=== PATIENT | male | born 1945 ===

== ENCOUNTER 2022-10-27 11:23 | Emergency (ER) | payer MEDICARE, MEDICAID, SELFPAY ==
--- NOTE | ~2022-10-27 | XR_ITS ---
EXAMINATION: XR ELBOW, LEFT CLINICAL INFORMATION: Left elbow lump. COMPARISON: None TECHNIQUE: AP, lateral, and oblique views of the left elbow. FINDINGS: The bones and soft tissues appear unremarkable. No fracture or joint effusion appreciated. Alignment is anatomic. Joint spaces appear maintained. XR/XR elbow LT 2V IMPRESSION: Unremarkable plain film examination of the left elbow.
[2022-10-27 11:48] VITALS: BP 147/70; PULSE 84; RESP 18; TEMP 36.9; O2SAT 97; BMI 24.3
--- NOTE | 2022-10-27 11:50 | ED_ITS ---
HPI - General Adult General Chief complaint: Extremity Injury, Upper <CELINA Degroot - Last Filed: 10/27/22 19:12> Stated complaint: Lump on L elbow <CELINA Degroot - Last Filed: 10/27/22 19:12> Time Seen by Provider: 10/27/22 12:35 <CELINA Degroot - Last Filed: 10/27/22 19:12> Source: patient <CELINA Ruby Last Filed: 10/27/22 14:16> Mode of arrival: ambulatory <CELINA Ruby Last Filed: 10/27/22 14:16> Limitations: no limitations <CELINA Ruby Last Filed: 10/27/22 14:16> History of Present Illness HPI narrative: Patient is a 77 year old assigned male at with no reported medical history presenting to the emergency department today with left elbow swelling. Patient states that the other day his family member noticed that he had swelling on his left elbow and recommended he come to the hospital. Patient states that he is not having any pain or issues with his left elbow. Patient denies any dizziness, lightheadedness, abdominal pain, nausea, vomiting, fever, chills, blurry vision, double vision, loss of vision, chest pain, difficulty breathing, shortness of breath, back pain, night sweats, pain with urination, increased urinary frequency, increased urinary urgency, blood in his urine or stool, syncope or a near syncopal episode, recent trauma or falls, bowel incontinence, bladder incontinence, bowel retention, bladder retention, or any other complaints at this time. <CELINA Ruby - Last Filed: 10/27/22 14:16> Onset (ago): day(s) <CELINA Ruby Last Filed: 10/27/22 14:16> Location: left and upper extremity <CELINA Ruby Last Filed: 10/27/22 14:16> Radiation: non-radiation <CELINA Ruby Last Filed: 10/27/22 14:16> Severity: mild <CELINA Ruby Last Filed: 10/27/22 14:16> Severity scale (1-10): 2 <CELINA Ruby Last Filed: 10/27/22 14:16> Relieving factors: none <CELINA Ruby - Last Filed: 10/27/22 14:16> Exacerbating factors: none <CELINA Ruby - Last Filed: 10/27/22 14:16> Associated symptoms: denies other symptoms <CELINA Ruby - Last Filed: 10/27/22 14:16> Treatments prior to arrival: none <CELINA Ruby - Last Filed: 10/27/22 14:16> Related Data Allergies/adverse reactions: Allergies Allergy/AdvReac Type Severity Reaction Status Date / Time aspirin [ASPIRIN] Allergy Unknown UNKNOWN Unverified 06/07/20 17:53 No Known Drug Allergies Allergy Unknown U Unverified 06/07/20 17:53 <CELINA Degroot - Last Filed: 10/27/22 19:12> Review of Systems Constitutional: Constitutional: Reports no additional constitutional complaints, Denies chills, Denies fever(s) and Denies night sweats <CELINA Ruby - Last Filed: 10/27/22 14:16> Eyes: Eyes: Reports no additional eye complaints, Denies blurry vision, Denies change in vision, Denies diplopia, Denies eye discharge, Denies loss of vision and Denies eye pain <CELINA Ruby - Last Filed: 10/27/22 14:16> ENT: Denies dizziness <CELINA Ruby - Last Filed: 10/27/22 14:16> Cardiovascular: Cardiovascular: Reports no additional cardiovascular complaints, Denies chest pain, Denies lightheadedness, Denies Loss of Consciousness and Denies dyspnea <CELINA Ruby - Last Filed: 10/27/22 14:16> Respiratory: Respiratory: Reports no additional respiratory complaints and Denies dyspnea <CELINA Ruby - Last Filed: 10/27/22 14:16> Gastrointestinal: Gastrointestinal: Reports no additional gastrointestinal complaints, Denies abdominal pain, Denies melena, Denies hematochezia, Denies change in bowel habits and Denies change in stool character <CELINA Ruby - Last Filed: 10/27/22 14:16> Genitourinary: Genitourinary: Reports no additional male genitourinary complaints, Denies hematuria, Denies oliguria, Denies difficulty urinating, Denies dysuria, Denies urinary frequency, Denies urinary hesitancy, Denies urinary incontinence and Denies urinary urgency <CELINA Ruby - Last Filed: 10/27/22 14:16> Musculoskeletal: Musculoskeletal: Reports no additional musculoskeletal complaints, Denies numbness and Denies tingling <CELINA Ruby - Last Filed: 10/27/22 14:16> Comments: left elbow swelling <CELINA Ruby - Last Filed: 10/27/22 14:16> Neurologic: Denies dizziness, Denies loss of vision, Denies numbness and Denies tingling <CELINA Ruby - Last Filed: 10/27/22 14:16> Psychiatric: Psychiatric: Reports no additional psychiatric complaints < CELINA Ruby - Last Filed: 10/27/22 14:16> Endocrine: Endocrine: Reports no additional endocrine complaints <CELINA Ruby - Last Filed: 10/27/22 14:16> Hematologic/Lymphatic: Hematologic/Lymphatic: Reports no additional hematologic/lymphatic complaints <CELINA Ruby - Last Filed: 10/27/22 14:16> Allergic/Immunologic: Allergic/Immunologic: Reports no additional allergic/immunologic complaints <CELINA Ruby - Last Filed: 10/27/22 14:16> [facility] [place] Past Medical History Attestation statement: The following information was validated with the patient. <CELINA Ruby - Last Filed: 10/27/22 14:16> Source: old records reviewed and nursing notes reviewed <CELINA Ruby - Last Filed: 10/27/22 14:16> Social History Social History: Social History Advance Directives: No Advance Directives Information Provided: Yes <CELINA Degroot - Last Filed: 10/27/22 19:12> Physical Exam ED Vital Signs: Vital Signs - 24 hr 10/27/22 11:48 Temperature 98.4 F Pulse Rate 84 Respiratory Rate 18 Blood Pressure 147/70 H Pulse Oximetry 97 Oxygen Delivery Method Room Air BMI result Body Mass Index 24.3 <CELINA Degroot - Last Filed: 10/27/22 19:12> Vital Signs - 24 hr 10/27/22 11:48 Temperature 98.4 F Pulse Rate 84 Respiratory Rate 18 Blood Pressure 147/70 H Pulse Oximetry 97 Oxygen Delivery Method Room Air BMI result Body Mass Index 24.3 <CELINA Ruby - Last Filed: 10/27/22 14:16> Const General: cooperative, no acute distress, alert and awake <CELINA Ruby - Last Filed: 10/27/22 14:16> Nutritional Appearance: well nourished <Brandy Green [place] - Last Filed: 10/27/22 14:16> Orientation/consciousness: patient oriented x3 <CELINA Ruby - Last Filed: 10/27/22 14:16> Limitations: no limitations <CELINA Ruby - Last Filed: 10/27/22 14:16> HENMT Head: Yes normal to inspection and Yes atraumatic <CELINA Ruby - Last Filed: 10/27/22 14:16> Ears: hearing grossly normal bilaterally and external ears normal <Brandy Green [place] - Last Filed: 10/27/22 14:16> General nose exam: Normal external nose present, no nasal discharge noted and no epistaxis <CELINA Ruby - Last Filed: 10/27/22 14:16> Face and sinus: Yes normal facial exam, No abrasion and No laceration <Brandy Green [place] - Last Filed: 10/27/22 14:16> Mouth: Normal oral and palatal mucosa present, no drooling and no muffled voice <CELINA Ruby - Last Filed: 10/27/22 14:16> Eyes General: appearance normal, both eyes and all related structures <CELINA Ruby - Last Filed: 10/27/22 14:16> Periorbital: periorbital findings normal <CELINA Ruby - Last Filed: 10/27/22 14:16> Eyelids: Yes eyelids normal <CELINA Ruby - Last Filed: 10/27/22 14:16> Conjunctivae: conjunctivae normal <CELINA Ruby - Last Filed: 10/27/22 14:16> Pupils: Equal, round and reactive pupils present <Brandy Green PA - Last Filed: 10/27/22 14:16> EOM: EOMs intact bilaterally <Brandy Green PA - Last Filed: 10/27/22 14:16> Neck Neck: Yes normal visual inspection, Yes full ROM and Yes no lymphadenopathy <Brandy Green PA - Last Filed: 10/27/22 14:16> Chest Chest palpation & inspection: normal inspection of the chest <Brandy Green [place] - Last Filed: 10/27/22 14:16> Resp Effort & Inspection: normal respiratory effort and able to speak in complete sentences <Brandy Green PA - Last Filed: 10/27/22 14:16> Auscultation: clear to auscultation bilaterally <Brandy Green [place] - Last Filed: 10/27/22 14:16> Cardio Rate: regular rate <Brandy Green PA - Last Filed: 10/27/22 14:16> Rhythm: regular rhythm <Brandy Green [place] - Last Filed: 10/27/22 14:16> GI Inspection: Yes normal to inspection <Brandy Green PA - Last Filed: 10/27/22 14:16> Neuro General: patient oriented x3 and moves all extremities <Brandy Green [place] - Last Filed: 10/27/22 14:16> Cranial nerves: Yes Equal, round and reactive pupils present <Brandy Green PA - Last Filed: 10/27/22 14:16> Cognition (Neuro): normal cognition <Brandy Green [place] - Last Filed: 10/27/22 14:16> Motor exam (neuro): 5/5 motor strength present throughout <Brandy Green PA - Last Filed: 10/27/22 14:16> Sensory Exam: Normal double simultaneous stimulation for sensation <Brandy Green PA - Last Filed: 10/27/22 14:16> Coordination: [id number] test normal <Brandy Green [place] - Last Filed: 10/27/22 14:16> Extrem Other: minimal left elbow swelling, no warmth, no erythema <Brandy Green PA - Last Filed: 10/27/22 14:16> General: Yes full ROM and Yes capillary refill normal <Brandy Green, PA - Last Filed: 10/27/22 14:16> Psych Appearance: grossly normal <Brandy GreenCELINA - Last Filed: 10/27/22 14:16> Mental Status: mental status grossly normal <Brandy GreenCELINA - Last Filed: 10/27/22 14:16> Affect: normal affect <Brandy GreenCELINA - Last Filed: 10/27/22 14:16> Attitude: cooperative <Brandydayo CordonCELINA crook - Last Filed: 10/27/22 14:16> Thought process: Normal thought process present <Brandy CordonCELINA crook - Last Filed: 10/27/22 14:16> Thought content: Normal thought content present <Brandydayo CordonCELINA crook - Last Filed: 10/27/22 14:16> Insight: Good insight present (Psych) <Brandy CordonCELINA crook - Last Filed: 10/27/22 14:16> Course Course Course Narrative: RmE: left elbow lump noticed 3 days ago. patient states lump is not painful and complete range of motion of elbow. states no redness, fever, or trauma. physical exam positive for soft lump on elbow that is soft and non- tender. negative for redness or warmth. patient has complete range of motion of elbow. physical exam negative for septic joint. xray ordered. lipoma vs bursitis. Vital signs stable. <Jose LeaCELINA - Last Filed: 10/27/22 19:12> Medical Decision Making Medical Decision Making MDM Narrative: Patient is a 77 year old assigned male at with no reported medical history presenting to the emergency department today with left elbow swelling. Patient's physical exam showed minimal swelling to the left elbow. Patient's left elbow x-ray showed no acute process. I explained my physical exam findings as well as all test results to the patient. I answered all questions asked by the patient. I stressed the importance of the patient taking his medication as prescribed. I stressed the importance of the patient following up with his primary care provider. I stressed the importance of the patient returning to the emergency department immediately if his symptoms were to worsen or if he were to develop any dizziness, shortness of breath, difficulty breathing, chest pain, blurry vision, loss of vision, nausea, vomiting, abdominal pain, fever, chills, back pain, or any other complaints. Patient verbalized agreement and understanding with this treatment plan and discharge. <CELINA Ruby Last Filed: 10/27/22 14:16> Differential Diagnosis Differential Diagnoses: The differential diagnosis associated with the presentation includes <CELINA Ruby Last Filed: 10/27/22 14:16> bursitis <CELINA Ruby Last Filed: 10/27/22 14:16> Radiology Impression Radiologist Impression: My interpretation is in agreement with the radiologist's impression of this imaging study. EXAMINATION: XR ELBOW, LEFT CLINICAL INFORMATION: Left elbow lump. ? COMPARISON: None? TECHNIQUE: AP, lateral, and oblique views of the left elbow. FINDINGS: The bones and soft tissues appear unremarkable. No fracture or joint effusion appreciated. Alignment is anatomic. Joint spaces appear maintained.? XR/XR elbow LT 2V IMPRESSION: Unremarkable plain film examination of the left elbow. Dictated By: Chico Mccall Signed By: Electronically signed by Chico Mccall 10/27/22 1258 <CELINA Ruby Last Filed: 10/27/22 14:16> Discharge Plan Discharge Clinical Impression: Bursitis <CELINA Degroot Last Filed: 10/27/22 19:12> Patient Disposition: Home, Self-Care <CELINA Degroot Last Filed: 10/27/22 19:12> Instructions: Elbow Bursitis (ED) <CELINA Degroot Last Filed: 10/27/22 19:12> Additional Instructions: Follow up with your primary care provider and an orthopedic provider. Return to the emergency department immediately if your symptoms worsen or if you develop any dizziness, shortness of breath, difficulty breathing, chest pain, blurry vision, loss of vision, nausea, vomiting, abdominal pain, fever, chills, back pain, or any other complaints. <CELINA Degroot - Last Filed: 10/27/22 19:12> Referrals: [facility] [place] [facility] [Provider Group] (Call to establish and follow up with a primary care provider. If you already have a primary care provider, please follow up with them. ) [facility] [place] Primary Care, David [Provider Group] (Call to establish and follow up with a primary care provider. If you already have a primary care provider, please follow up with them. ) [facility] [place] Primary Care,Jimy [Provider Group] (Call to establish and follow up with a primary care provider. If you already have a primary care provider, please follow up with them. ) [facility] [place] [facility] [Provider Group] (Call to establish and follow up with an orthopedic provider, as needed. ) <CELINA Degroot - Last Filed: 10/27/22 19:12> Interventions: ED Discharge Assessment Last Done: 10/27/22 12:56 <CELINA Degroot - Last Filed: 10/27/22 19:12> Discharge Date/Time: 10/27/22 12:58 <CELINA Degroot - Last Filed: 10/27/22 19:12> Print Language: Sudanese <CELINA Degroot - Last Filed: 10/27/22 19:12>
== END 2022-10-27 12:58 | disposition home or self-care (01) ==
PROVIDERS: Emergency Provider Emergency Medicine
DX: M70.32 Other bursitis of elbow, left elbow (principal)
CPT/HCPCS: 73070; 99282; 99283

== ENCOUNTER → 2023-01-07 07:39 | Outpatient (BNVA) | payer MEDICARE, MEDICAID, SELFPAY | PROVIDERS: Visit Provider Physician Assistant | DX: M70.22 Olecranon bursitis, left elbow (principal) | CPT/HCPCS: 99202 ==

== ENCOUNTER 2023-12-24 13:16 | Emergency (ER) | payer MEDICARE, OTHER, SELFPAY ==
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
[2023-12-24 13:24] VITALS: BP 176/89; BP 187/81; PULSE 70; PULSE 78; RESP 18; TEMP 36.6; O2SAT 96; O2SAT 97; BMI 25.1
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
[2023-12-24 15:01] VITALS: BP 156/84; PULSE 69; RESP 19; TEMP 36.8; O2SAT 97
[2023-12-24 15:40] VITALS: BP 154/90; PULSE 70; RESP 20; TEMP 36.9; O2SAT 99
[2023-12-24 15:44] VITALS: BP 154/90; PULSE 70; RESP 20; TEMP 36.9; O2SAT 99
== END 2023-12-24 15:45 | disposition home or self-care (01) ==
PROVIDERS: Emergency Provider Emergency Medicine
DX: S13.9XXA Sprain of joints and ligaments of unspecified parts of neck, initial encounter (principal); S39.012A Strain of muscle, fascia and tendon of lower back, initial encounter; R51.9 Headache, unspecified; M54.2 Cervicalgia; M79.10 Myalgia, unspecified site; V43.52XA Car driver injured in collision with other type car in traffic accident, initial encounter; Y93.9 Activity, unspecified; Y92.410 Unspecified street and highway as the place of occurrence of the external cause; Y99.8 Other external cause status
CPT/HCPCS: 70450; 72125; 99282; 99283; 99284

== ENCOUNTER 2024-02-22 12:03 | Emergency (ER) | payer MEDICARE, OTHER, SELFPAY ==
[2024-02-22 13:19] VITALS: BP 101/76; PULSE 61; RESP 18; TEMP 36.6; O2SAT 96; BMI 24.1
--- NOTE | 2024-02-22 13:20 | ED_ITS ---
HPI - General Adult General Chief complaint: Skin/Abscess/Foreign Body Stated complaint: Back Pain Time Seen by Provider: 02/22/24 15:36 Source: patient Mode of arrival: ambulatory Limitations: no limitations History of Present Illness ED Provider: Tulio Allen PA-C HPI narrative: 78 yo male with history of prostate cancer, HTN who presents to the ER for evaluation of a mass on the left upper portion of his back 3 or 4 days ago. He denies overt pain but states it is slightly uncomfortable. It is slightly red. He has not diabetic. He has not had any fevers. No drainage from the mass. He denies any insect or tick bite. MD complaint: Left upper back mass Onset (ago): day(s) (4) Location: back Radiation: non-radiation Severity: mild Severity scale (1-10): 2 Quality: aching Pain Consistency: intermittent Exacerbating factors: other ( supine positioning) Associated symptoms: denies other symptoms Treatments prior to arrival: none Related Data Home Medications ?Medication ?Instructions ?Recorded ?Confirmed lisinopril 5 mg tablet 5 mg PO DAILY 01/07/23 01/07/23 Previous Rx's ?Medication ?Instructions ?Recorded cefuroxime axetil 500 mg tablet 500 mg PO BID #14 tabs 02/22/24 Allergies Allergy/AdvReac Type Severity Reaction Status Date / Time aspirin [ASPIRIN] Allergy Unknown UNKNOWN Verified 02/22/24 13:19 No Known Drug Allergies Allergy Unknown U Unverified 06/07/20 17:53 Review of Systems 2 Review of Systems: Yes all other systems are reviewed and are negative [facility] Past Medical History Medical History (Updated 02/22/24 @ 16:51 by CELINA Connors) Hypertension Social History Social History (Updated 01/07/23 @ 08:08 by BRI Frias) Patient Tobacco Use Status: Former Tobacco user Advance Directives: No Advance Directives Information Provided: No Do you have a plan to hurt others: No Plan Current occupational status: unemployed Current occupation: right handed Physical Exam ED Vital Signs: Vital Signs - 24 hr 02/22/24 13:19 02/22/24 17:17 Temperature 97.8 F 97.8 F Pulse Rate 61 61 Respiratory Rate 18 18 Blood Pressure 101/76 101/76 Pulse Oximetry 96 96 Oxygen Delivery Method Room Air Room Air BMI result Body Mass Index 24.1 Appearance: Alert. Oriented X3. No acute distress. HEENT: normal inspection CVS: Normal heart rate and rhythm. Pulses normal. Respiratory: No respiratory distress. Skin: Skin warm and dry. Normal skin color. Normal skin turgor. left upper back with a 5cm oval area of erythema and slight warmth overlying an indurated and firm area w/ central open comedone Extremities: normal inspection x4. no joint swelling Neuro: Oriented X 3. No motor deficit. No sensory deficit. Course Course Course Narrative: RME- 78-year-old male presents for evaluation of a lump on his right upper back. On exam he has about a 4 cm area of erythema with central induration. Minimal fluctuance. Medical Decision Making Medical Decision Making [facility] Narrative: 78-year-old male presents to the ER for evaluation of a mass on his upper back. mild-moderate erythema and warmth to the the area on the upper left back with central comedone, no central fluctuance to suggest an abscess. with direct manipulation, able to express thick, white cellular debris from the open. No purulent material. Most likely an inflamed epidermoid cyst, will empirically treat for cellulitis with a cephalosporin. low suspicion for MRSA. patient counseled on need for derm assessment, nonurgent. stable for d/c home Differential Diagnosis Differential Diagnoses: The differential diagnosis associated with the presentation includes cellulitis, abscess, epidermoid cyst, lipoma Lab Data [facility] Lab Attestation statement: I reviewed the patient's lab results. 02/22/24 16:12 02/22/24 16:12 Labs: Lab Results 02/22/24 Range/Units 16:12 WBC 8.6 (4.8-10.8) X10*3/uL RBC 5.21 (4.60-5.80) X10*6/uL Hgb 14.6 (14.0-18.0) g/dl Hct 43.3 (42.0-52.0) % MCV 83.1 (80.0-98.0) fL MCH 28.0 (27.0-33.0) pg MCHC 33.7 (31.0-36.0) g/dl RDW 12.9 (11.0-16.0) % Plt Count 250 (160-400) X10*3/uL MPV 9.5 (9.4-12.4) fL Immature Gran % (Auto) 0.5 H (0.0-0.4) % Neut % (Auto) 69.1 (45-73) % Lymph % (Auto) 22.8 (20-40) % [place] % (Auto) 5.6 (2-11) % Eos % (Auto) 1.4 (0-4) % Baso % (Auto) 0.6 (0-2) % Lymph # (Auto) 2.0 (1.2-4.9) X10*3/uL [place] # (Auto) 0.5 (0.1-1.2) X10*3/uL Eos # (Auto) 0.1 (0.0-0.4) X10*3/uL Baso # (Auto) 0.1 (0.0-0.2) X10*3/uL Abs Immat Gran (auto) 0.04 H (0.00-0.03) X10*3/uL Absolute Neuts (auto) 5.9 (2.0-8.3) x10*3/uL Absolute Nucleated RBC 0.000 (0.0-0.012) X10*3/uL Nucleated RBC % (auto) 0.0 (0.0-0.2) /100WBC Sodium 143 (135-145) mmol/L Potassium 4.0 (3.3-5.1) mmol/L Chloride 108 (96-108) mmol/L Carbon Dioxide 25 (22-29) mmol/L Anion Gap 14 (12-20) BUN 22 H (9-16) mg/dL Creatinine 0.94 (0.5-1.4) mg/dL Estim Creat Clear Calc 65.7 Estimated GFR > 60 Random Glucose 97 (60-115) mg/dL Calcium 9.9 (8.4-10.2) mg/dL External Record Review External record reviewed: Outpatient record, Prior outpatient labs and Prior outpatient radiology Prescription Management I considered prescription management with: Antibiotic Chronic Conditions Patient?s care impacted by: Hypertension Critical Care Time Critical Care Time Critical Care Time: No Discharge Plan Discharge Clinical Impression: Epidermoid cyst of skin Cellulitis Qualifiers: Site of cellulitis: trunk Site of cellulitis of trunk: back Qualified Code(s): L03.312 - Cellulitis of back [any part except buttock] Patient Disposition: Home, Self-Care Instructions: Cellulitis (DC), Warm Compress or Soak (ED) Additional Instructions: use warm compresses to the area 2-3 times per day Take the prescribed antibiotics as directed, complete the entire course and do not miss any doses follow up with dermatology for further evaluation and possible non-emergent excision If you develop new or worsening symptoms call 911 or come back to the ER for further evaluation. [facility] [address] [place] [address] Prescriptions: New cefuroxime axetil 500 mg tablet 500 mg PO BID Qty: 14 0RF No Action lisinopril 5 mg tablet 5 mg PO DAILY Interventions: ED Discharge Assessment Last Done: 02/22/24 17:17 Discharge Date/Time: 02/22/24 17:18 Print Language: Bhutanese
[2024-02-22 16:16] LABS: MANUAL DIFF FLAG NO
[2024-02-22 16:18] LABS: Basophils Absolute Auto 0.1 X10*3/uL (0.0-0.2); Basophils Percent Auto 0.6 % (0-2); Eosinophils Absolute Auto 0.1 X10*3/uL (0.0-0.4); Eosinophils Percent Auto 1.4 % (0-4); Hematocrit 43.3 % (42.0-52.0); Hemoglobin 14.6 g/dl (14.0-18.0); Imm Gran Abs Auto 0.04 X10*3/uL (0.00-0.03); Imm Gran Pct Auto 0.5 % (0.0-0.4); Lymphocytes Percent Auto 22.8 % (20-40); Mean Corpuscular HGB Conc 33.7 g/dl (31.0-36.0); Mean Corpuscular Volume 83.1 fL (80.0-98.0); Mean Platelet Volume 9.5 fL (9.4-12.4); Monocytes Absolute Auto 0.5 X10*3/uL (0.1-1.2); Monocytes Percent Auto 5.6 % (2-11); Neutrophils Absolute Auto 5.9 x10*3/uL (2.0-8.3); Neutrophils Percent Auto 69.1 % (45-73); Platelet Count 250 X10*3/uL (160-400); Red Blood Count 5.21 X10*6/uL (4.60-5.80); Red Cell Distribution Width 12.9 % (11.0-16.0); White Blood Count 8.6 X10*3/uL (4.8-10.8)
[2024-02-22 16:34] LABS: Anion Gap 14 (12-20); Blood Urea Nitrogen 22 mg/dL (9-16); Calcium 9.9 mg/dL (8.4-10.2); Carbon Dioxide 25 mmol/L (22-29); Chloride 108 mmol/L (96-108); Creatinine Clr Calc Pharmacy 65.7; Estimated Glomerular Filt Rate > 60; Glucose Random 97 mg/dL (60-115); Sodium 143 mmol/L (135-145)
[2024-02-22 17:17] VITALS: BP 101/76; PULSE 61; RESP 18; TEMP 36.6; O2SAT 96
== END 2024-02-22 17:18 | disposition home or self-care (01) ==
PROVIDERS: Physician Assistant; Emergency Provider Emergency Medicine; PCP Internal Medicine
DX: L72.8 Other follicular cysts of the skin and subcutaneous tissue (principal); L03.312 Cellulitis of back [any part except buttock and flank]; I10 Essential (primary) hypertension
CPT/HCPCS: 36415; 80048; 85025; 99282; 99283

== ENCOUNTER 2024-08-24 12:18 | Emergency (ER) | payer MEDICARE, OTHER, SELFPAY ==
--- NOTE | ~2024-08-24 | CT_ITS ---
EXAMINATION: CT ABDOMEN AND PELVIS WITHOUT CONTRAST CLINICAL INFORMATION: Prostate cancer, lower abdominal discomfort/groin pain COMPARISON: None available. TECHNIQUE: Multidetector volumetric imaging was performed from the superior aspect of the liver through the pubic symphysis. Sagittal and coronal reformatted images were obtained on the technologist's workstation. This CT examination was performed using dose optimization techniques as appropriate, variously including the following: *Automated exposure control *Adjustment of mA and/or kV according to patient size (this includes techniques or standardized protocols for targeted exams where dose is matched to indication/reason for exam; i.e. extremities or head) *Use of iterative reconstruction technique DLP: 536 mGy-cm FINDINGS: LUNG BASES: Bibasilar pulmonary nodules measuring up to 7 mm in the left lung and 5 mm in the right lung base. ABDOMINAL AND PELVIC WALL: Bilateral fat-containing inguinal hernias. LIVER AND BILIARY TREE: Unremarkable. GALLBLADDER: Unremarkable. PANCREAS: Unremarkable. SPLEEN: Unremarkable. ADRENAL GLANDS: Unremarkable. KIDNEYS AND URETERS: Benign-appearing left renal cyst. Nonobstructing right renal stone. GASTROINTESTINAL TRACT: Unremarkable. Appendix is not visualized, however no inflammatory changes are seen within the right lower quadrant. VASCULAR: Aortic atherosclerotic calcifications, no aneurysmal dialation. LYMPH NODES/PERITONEUM: No lymphadenopathy. FREE FLUID: None. BLADDER: There is diffuse circumferential thickening around the urinary bladder with mild hyperdense material seen, the there is a Mccurdy balloon catheter present, however the bladder is not decompressed scattered colonic diverticulosis, no findings diverticulitis. There is extensive inflammation and stranding surrounding the urinary bladder. PELVIC VISCERA: Unremarkable. OSSEOUS STRUCTURES: Degenerative changes of the thoracolumbar spine. CT/CT abdomen pelvis wo IV con IMPRESSION: * Bibasilar pulmonary nodules measuring up to 7 mm in the left lung and 5 mm in the right lung base. * Diffuse circumferential thickening of the urinary bladder wall with hyperdense material seen, this may reflect blood products, however underlying neoplasm cannot be excluded. Correlate with clinical symptoms and consider cystoscopy as clinically warranted. Extensive inflammation and stranding surrounding the bladder may reflect cystitis. * Nonobstructing right renal stone. * Diverticulosis, no findings of diverticulitis Electronically signed by: Sandra Travis MD 08/24/2024 08:05 PM [facility] [place]
--- NOTE | 2024-08-24 12:50 | ED_ITS ---
HPI - Male Genitourinary General Chief complaint: General Medical Stated complaint: Prostate cancer-blood in urine Time Seen by Provider: 08/24/24 21:40 Source: patient Mode of arrival: ambulatory Limitations: no limitations History of Present Illness ED Provider: HPI Narrative: History of prostate cancer seen at [facility] on 08/[address] scan done showed metastatic prostate cancer plan to see urologist tomorrow comes here for hematuria patient has Mccurdy catheter for about a month no fever no chills UA showed nitrite and leukocyte esterase positive no fever no nausea no vomiting Related Data Home Medications ?Medication ?Instructions ?Recorded ?Confirmed lisinopril 5 mg tablet 5 mg PO DAILY 01/07/23 01/07/23 Previous Rx's ?Medication ?Instructions ?Recorded cefuroxime axetil 500 mg tablet 500 mg PO BID #14 tabs 02/22/24 ciprofloxacin HCl 500 mg tablet 500 mg PO BID #14 tabs 08/25/24 Allergies Allergy/AdvReac Type Severity Reaction Status Date / Time aspirin [ASPIRIN] Allergy Unknown UNKNOWN Verified 08/24/24 12:53 No Known Drug Allergies Allergy Unknown U Verified 08/24/24 12:53 Review of Systems 2 Review of Systems: Yes all other systems are reviewed and are negative PMFSH Past Medical History Medical History Hypertension Social History Social History Alcohol intake: never Patient Tobacco Use Status: Former Tobacco user Smoked in Last 30 Days: No Use of substances other than those prescribed or required for medical reasons: No Advance Directives: No Advance Directives Information Provided: No Do you have a plan to hurt others: No Plan Current occupational status: unemployed Current occupation: right handed Physical Exam 2 Vital Signs: Vital Signs: Last Vital Signs Temp 98.2 F 08/25/24 02:46 Pulse 80 08/25/24 02:46 Resp 16 08/25/24 02:46 BP 174/86 H 08/25/24 02:46 Pulse Ox 97 08/25/24 02:46 O2 Del Method Room Air 08/25/24 02:46 BMI result Body Mass Index 26.2 Appearance: Alert. Oriented X3. No acute distress. Eyes: No pallor or icterus ENT: Pharynx normal. Oral Mucosa moist Neck: Normal inspection. Neck supple. CVS: Normal heart rate and rhythm. Pulses normal. Respiratory: No respiratory distress. Equal air entry bilateral, no wheezing/rales/rhonchi Abdomen: Soft and nontender. Bowel sounds are present, no mass palpable, no CVA tenderness Skin: Skin warm and dry. Normal skin color. Normal skin turgor. Extremities: No lower extremity edema. No calf tenderness Neuro: Oriented X 3. No motor deficit. Course Course Course Narrative: This is a Rapid Medical Examination (RME) performed by Tulio Allen PA-C in triage. Full HPI, ROS, assessment and treatment plan per primary provider in the Main ED. 79 yo male with history of never treated metastatic (lung, lymph nodes) prostate cancer, history of chronic Mccurdy catheter for the last 30+ days who presents to the ER for evaluation of hematuria. He had a CT scan done at the [place] last week that showed new dilatation of the urethra which could be postprocedural, represent thrombus, or represent tumor infiltration. He reports lower abdominal pain, perineum pain, and bloody/brown in his urine for the last week. Mccurdy was last changed 3 weeks ago. he reports never being told he had cancer until last week. has never seen an oncologist. Plan: Medications Administered Discontinued Medications Generic Name Dose Route Start Last Admin Trade Name Shila PRN Reason Stop Dose Admin Acetaminophen 650 mg 08/24/24 18:10 08/24/24 18:13 Acetaminophen 325 Mg Tablet PO 08/24/24 18:11 650 mg ONCE ONE Administration Levofloxacin 500 mg 08/24/24 22:16 08/24/24 23:19 Levofloxacin 500 Mg Tablet PO 08/24/24 22:17 500 mg ONCE ONE Administration Levofloxacin 500 mg 08/25/24 01:36 08/25/24 01:40 Levofloxacin 500 Mg Tablet PO 08/25/24 01:37 500 mg ONCE ONE Administration Medical Decision Making Medical Decision Making [facility] Narrative: Manual bladder irrigation was done urine is pinkish color blood clots were removed patient is to see urologist today discharge patient home with new/urinary Mccurdy catheter antibiotic Levaquin was given for UTI Admission/Observation Consideration of admission/observation: Escalation of care including admission/observation considered Lab Data [facility] Lab Attestation statement: I reviewed the patient's lab results. 08/24/24 14:41 08/24/24 14:41 Labs: Lab Results 08/24/24 08/24/24 Range/Units 14:41 23:52 WBC 8.8 (4.8-10.8) X10*3/uL RBC 4.74 (4.60-5.80) X10*6/uL Hgb 13.0 L (14.0-18.0) g/dl Hct 39.2 L (42.0-52.0) % MCV 82.7 (80.0-98.0) fL MCH 27.4 (27.0-33.0) pg MCHC 33.2 (31.0-36.0) g/dl RDW 12.5 (11.0-16.0) % Plt Count 296 (160-400) X10*3/uL MPV 9.2 L (9.4-12.4) fL Immature Gran % (Auto) 0.5 H (0.0-0.4) % Neut % (Auto) 73.0 (45-73) % Lymph % (Auto) 19.0 L (20-40) % [place] % (Auto) 4.2 (2-11) % Eos % (Auto) 2.5 (0-4) % Baso % (Auto) 0.8 (0-2) % Lymph # (Auto) 1.7 (1.2-4.9) X10*3/uL [place] # (Auto) 0.4 (0.1-1.2) X10*3/uL Eos # (Auto) 0.2 (0.0-0.4) X10*3/uL Baso # (Auto) 0.1 (0.0-0.2) X10*3/uL Abs Immat Gran (auto) 0.04 H (0.00-0.03) X10*3/uL Absolute Neuts (auto) 6.4 (2.0-8.3) x10*3/uL Absolute Nucleated RBC 0.000 (0.0-0.012) X10*3/uL Nucleated RBC % (auto) 0.0 (0.0-0.2) /100WBC Sodium 143 (135-145) mmol/L Potassium 4.1 (3.3-5.1) mmol/L Chloride 108 (96-108) mmol/L Carbon Dioxide 27 (22-29) mmol/L Anion Gap 12 (12-20) BUN 19 H (9-16) mg/dL Creatinine 0.79 (0.5-1.4) mg/dL Estim Creat Clear Calc 77.0 Estimated GFR > 60 Random Glucose 103 (60-115) mg/dL Calcium 9.6 (8.4-10.2) mg/dL Magnesium 2.2 (1.6-2.6) mg/dL Total Bilirubin 0.4 (0.0-1.0) mg/dL Direct Bilirubin 0.2 (0.0-0.5) mg/dL AST 27 (5-37) U/L ALT 10 (0-40) U/L Alkaline Phosphatase 173 H (39-117) U/L Total Protein 7.0 (6.5-8.0) g/dL Albumin 3.8 (3.5-5.0) g/dL Urine Color Red A Red A Urine Appearance Turbid Turbid Urine pH >= 9.0 >= 9.0 (5.0-9.0) Ur Specific Cope 1.015 1.010 (1.005-1.025) Urine Protein 300 (3+) H 100 (2+) H (Neg-Trace) mg/dL Urine Glucose (UA) Negative Negative (Negative) mg/dL Urine Ketones Negative Negative (Negative) mg/dL Urine Blood Large (3+) H Large (3+) H (Negative) Urine Nitrite Positive H Negative (Negative) Ur Leukocyte Esterase Large (3+) H Moderate (2+) H (Negative) Urine RBC >20 H >20 H (0-2) /HPF Urine WBC 6-10 H >50 H (0-5) /HPF Ur Squamous Epith Cells 0-2 3-5 (0-2) /HPF Urine Bacteria 4+ Trace (None Seen) Hyaline Casts 3-5 0-2 (0-2) /LPF Discharge Plan Discharge Clinical Impression: Hematuria, Prostate cancer, UTI (urinary tract infection) due to urinary indwelling catheter Patient Disposition: Home, Self-Care Instructions: Prostate Cancer (DC), Catheter-associated Urinary Tract Infection (ED) Additional Instructions: Care of Mccurdy catheter as advised Follow up with your urologist as scheduled for tomorrow Take antibiotics daily for UTI Drink plenty of fluids Prescriptions: New ciprofloxacin HCl 500 mg tablet 500 mg PO BID Qty: 14 0RF No Action cefuroxime axetil 500 mg tablet 500 mg PO BID Qty: 14 0RF lisinopril 5 mg tablet 5 mg PO DAILY Interventions: ED Discharge Assessment Last Done: 08/25/24 02:46 Print Language: Slovenian
[2024-08-24 12:51] VITALS: BP 174/81; PULSE 75; RESP 20; TEMP 36.4; O2SAT 97; BMI 26.2
[2024-08-24 14:47] LABS: MANUAL DIFF FLAG NO
[2024-08-24 14:48] LABS: Basophils Absolute Auto 0.1 X10*3/uL (0.0-0.2); Basophils Percent Auto 0.8 % (0-2); Eosinophils Absolute Auto 0.2 X10*3/uL (0.0-0.4); Eosinophils Percent Auto 2.5 % (0-4); Hematocrit 39.2 % (42.0-52.0); Imm Gran Abs Auto 0.04 X10*3/uL (0.00-0.03); Imm Gran Pct Auto 0.5 % (0.0-0.4); Lymphocytes Absolute Auto 1.7 X10*3/uL (1.2-4.9); Mean Corpuscular HGB Conc 33.2 g/dl (31.0-36.0); Mean Corpuscular Hemoglobin 27.4 pg (27.0-33.0); Mean Corpuscular Volume 82.7 fL (80.0-98.0); Mean Platelet Volume 9.2 fL (9.4-12.4); Monocytes Absolute Auto 0.4 X10*3/uL (0.1-1.2); Monocytes Percent Auto 4.2 % (2-11); Neutrophils Absolute Auto 6.4 x10*3/uL (2.0-8.3); Platelet Count 296 X10*3/uL (160-400); Red Blood Count 4.74 X10*6/uL (4.60-5.80); Red Cell Distribution Width 12.5 % (11.0-16.0); White Blood Count 8.8 X10*3/uL (4.8-10.8)
[2024-08-24 15:02] LABS: Alanine Aminotransferase 10 U/L (0-40); Albumin Level 3.8 g/dL (3.5-5.0); Alkaline Phosphatase 173 U/L (39-117); Anion Gap 12 (12-20); Aspartate Amino Transferase 27 U/L (5-37); Bilirubin Direct 0.2 mg/dL (0.0-0.5); Bilirubin Total 0.4 mg/dL (0.0-1.0); Blood Urea Nitrogen 19 mg/dL (9-16); Calcium 9.6 mg/dL (8.4-10.2); Carbon Dioxide 27 mmol/L (22-29); Chloride 108 mmol/L (96-108); Estimated Glomerular Filt Rate > 60; Glucose Random 103 mg/dL (60-115); Magnesium 2.2 mg/dL (1.6-2.6); Potassium 4.1 mmol/L (3.3-5.1); Sodium 143 mmol/L (135-145)
[2024-08-24 15:11] LABS: Appearance Urine Turbid; Color Urine Red; Glucose Urine UA Negative (Negative); Leukocyte Esterase Urine Large (3+) (Negative); Nitrite Urine Positive (Negative); PH >= 9.0 (5.0-9.0); Specific Gravity - Urine 1.015 (1.005-1.025); UMIC TRIGGER UACC YES; Urine Blood Large (3+) (Negative); Urine Ketones Negative (Negative); Urine Protein 300 (3+) mg/dL (Neg-Trace)
[2024-08-24 15:12] LABS: Bacteria Urine 4+ (None Seen); RBC Urine >20 /HPF (0-2); Squamous Epithelial Cell Urine 0-2 /HPF (0-2); UACC Culture Trigger YES
[2024-08-24 18:11] VITALS: BP 177/93; PULSE 85; RESP 18; TEMP 37.1; O2SAT 98
[2024-08-24] MEDS: Acetaminophen 325 MG TABLET 650 MG PO (18:13)
[2024-08-24 21:07] VITALS: BP 182/84; PULSE 66; RESP 16; TEMP 36.5; O2SAT 96
[2024-08-24 22:11] VITALS: BP 182/88; PULSE 68; RESP 16; TEMP 36.4; O2SAT 99
[2024-08-24] MEDS: levoFLOXacin 500 MG TABLET PO (23:19)
[2024-08-24 23:38] VITALS: BP 191/95; PULSE 78; RESP 16; TEMP 36.9; O2SAT 98
--- NOTE | 2024-08-24 23:41 | MHC.EDTECH ---
This pct assumed care of Patient at 2300 ,vitals taken ,RN Laly is aware of Patient high blood Pressure .
[2024-08-25 00:05] LABS: Appearance Urine Turbid; Bacteria Urine Trace (None Seen); Color Urine Red; Glucose Urine UA Negative (Negative); Hyaline Casts Urine 0-2 /LPF (0-2); Leukocyte Esterase Urine Moderate (2+) (Negative); Nitrite Urine Negative (Negative); PH >= 9.0 (5.0-9.0); RBC Urine >20 /HPF (0-2); UACC Culture Trigger YES; UMIC TRIGGER UACC YES; Urine Blood Large (3+) (Negative); Urine Ketones Negative (Negative); Urine Protein 100 (2+) mg/dL (Neg-Trace); WBC Urine >50 /HPF (0-5)
[2024-08-25 00:45] VITALS: BP 182/89; PULSE 76; RESP 16; TEMP 37; O2SAT 96
[2024-08-25] MEDS: levoFLOXacin 500 MG TABLET PO (01:40)
--- NOTE | 2024-08-25 01:44 | PC.NURSE ---
Medicated for RN Laly, notified LEANN Penao
[2024-08-25 01:55] VITALS: BP 174/86; PULSE 80; RESP 16; TEMP 36.8; O2SAT 97
--- NOTE | 2024-08-25 01:56 | MHC.EDTECH ---
Patient was given p/o challenged ,Patient tolerated well ,Provider aware ,Patient wright bag empty for 350 ml ,bladder scan taken after Wright bag empty ,Provider aware that Patient was not retaining any urine .
[2024-08-25 02:46] VITALS: BP 174/86; PULSE 80; RESP 16; TEMP 36.8; O2SAT 97
--- NOTE | 2024-08-25 02:47 | PC.NURSE ---
reviewed discharge instructions with pt. pt verbalized understanding, no sign of distress upon discharge, notified primary nurse Laly
--- OUTSIDE RECORDS SUMMARY | 2024-08-30 18:26 | XMS_ITS ---
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 This section includes the names of all active insurance providers for the patient. Insurance Provider Type of Coverage Plan Name Start of Policy Coverage End of Policy Coverage Group Number Member ID Insurance Provider's Telephone Number Policy Segal's Name Patient's Relationship to Policy Segal [facility] ([facility]) MEDIC[place]AGE [place] - [place] Sep 21, 2023 [id number] [phone] MARVIN [facility]UGANI S [facility] MEDICARE ADVANTAGE [facility] ([facility]) Sep 21, 2023 [id number] [phone] DUGANMARVINI S PATIENT [place] MED[place]AN May 22, 2022 MEDICAI D [id number] MARVIN DUGANI S PATIENT MEDICARE ([facility]) MEDICARE () PART B May 22, 2022 PART B [id number] [phone] DUGANMARVINI S PATIENT MEDICARE ([facility]) MEDICARE (M) PART A Feb 19, 2009 PART A [id number] DUGAN,GENET S PATIENT MEDICARE PART D (WNR) MEDICARE (M) PART D Jul 22, 2022 PART D [id number] [phone] GENET DUGAN S PATIENT [facility] (WNR) MEDICARE ADVANTAGE [facility] (WNR) Sep 21, 2022 [id number] [phone] GENET DUGAN S PATIENT [facility] (WNR) MEDICARE ADVANTAGE [facility] (WNR) Sep 21, 2022 [id number] GENET DUGAN PATIENT Selected Encounter This section includes the information on record at [place] for the Encounter. Date/Time Encounter Type Encounter Description Reason Pro vider Source Oct 06, 2023 11:08 AM Outpatient Encounter PRIMARY CARE/MEDICINE IHE Encounter Template Text not used by [place] Plan of Treatment: Future Appointments (+ 6 months) and Future Tests (+/- 45 days) The Plan of Treatment section includes future care activities for the patient from all [place] treatmentfacilities. This section includes future appointments and future orders which are active, pending or scheduled. Future Appointments This section includes appointments that were scheduled to occur 6 months from the date of the Encounter, up to a maximum of 20 appointments. The data comes from all [place] treatment facilities. Appointment Date/Time Appointment Type Appointme nt Facility Name Dec 22, 2023 10:00 AM AMBULATORY [place]ICINE [place] [facility] [place] [facility] Dec 31, 2023 09:00 AM [place] [facility] [place] [facility] Dec 31, 2023 10:30 AM AMBULATORY - MEDICINE [place] [facility] [place] [facility] January 22, 2024 02:30 PM AMBULATORY - MEDICINE [place] [facility] [place] [facility] Feb 26, 2024 01:00 PM [facility]ORY - [place]ICINE [place] Feb 26, 2024 01:15 PM AMBULATORY - MEDICINE [place] Mar 10, 2024 09:00 AM AMBULATORY - NONE [place] [facility] [place] [facility] Mar 18, 2024 09:30 AM AMBULATORY - MEDICINE [place] [facility] [place] [facility] Mar 21, 2024 09:30 AM AMBULATORY - [place]ICINE [place] [facility] [place] [facility] Lab Results: +/- 30 days of the encounter This section includes the Chemistry and Hematology Lab Results on record with [facility] for the patient. Radiology Reports and Pathology Reports are provided separately, in subsequent sections. Lab Results This section contains the Chemistry/Hematology Results that were resulted 30 days before or 30 daysafter the date of the Encounter. Date/Time Source Result Type Result - Unit Interpretation Reference Range Comment Oct 06, 2023 12:48 PM [facility] PSA Specimen Type: SERUM No comment entered. Ordering Provider: HAYLEY VERDUZCO Report Released Date/Time: Oct 06, 2023 12:38 PM Reporting Lab[facility] [place] [facility] [address] [facility] [address] Performing Lab: [facility] [address] [address] PSA 21.53 ng/mL H 0.00-4.00 Sep 18, 2023 12:07 PM [facility] FOLATE Specimen Type: SERUM No comment entered. Ordering Provider: HAYLEY VERDUZCO Report Released Date/Time: Sep 18, 2023 11:50 AM Reporting Lab: [facility] [address] [phone] Performing Lab: [facility] [address] [facility] [address] FOLATE 3.83 ng/mL L >5.2 Advance Directives: All historical and current Section Date Range: From patient's date of to the date document was created. This section includes ALL of a patient's completed or amended [place] Advance and Rescinded Directives. The entries below indicate that a directive exists for the patient, but an actual copy is not included with this document. The data comes from all [place] facilities. Date Advance Directives Provider Source Apr 04, 2024 [facility] Radiology Reports: +/- 30 days of the encounter Radiology Reports For cases when an order for radiology services may have been completed prior to the date of the Encounter, the report list includes the Radiology Reports that were completed up to 30 days before dateof the Encounter. For cases when an order for radiology services may have been completed after the date of the Encounter, the report list also includes the Radiology Reports that were completed up to30 days after date of the Encounter. The data comes from all [place] treatment facilities. Date/Time Radiology Report Provider Source Oct 14, 2023 02:[address] ABDOMEN /PELVIS W/WO CONTRAST: JAKE DUGAN [id number] -[id number] M Exm Date: OCT 14, 2023@14:00 Req Phys: NOLAN VERDUZCO Pat Loc: [facility]/OUTSIDE IMAGING NON-CNT (R Img Loc: OUTSIDE GENERAL RADIOLOGY Service: Unknown (Case [id number] COMPLETE) OUTSIDE CT ABDOMEN/PELVIS W/WO CO(RAD Detailed) CPT:81723 Reason for Study: outside images have been uploaded for continuity of care Clinical History: outside images have been uploaded for continuity of care Report Status: Electronically Filed Date Reported: OCT 14, 2023 Report: THIS EXAM WAS PERFORMED AND INTERPRETED AT AN OUTSIDE HOSPITAL Impression: THIS EXAM WAS PERFORMED AND INTERPRETED AT AN OUTSIDE HOSPITAL Primary Diagnostic Code: VERIFIED BY: / *ELECTRONICALLY FILED* [place] [facility] [place] [facility] Encounter Notes: All associated encounter notes This section contains the clinical notes associated to the Encounter. Date/Time Encounter Note(s) Provider Source Oct 06, 2023 11:13 AM ADMINISTRATIVE NOT E: LOCAL TITLE: FAX/MAIL RECEIVED STANDARD TITLE: ADMINISTRATIVE NOTE DATE OF NOTE: OCT 06, 2023@11:13 ENTRY DATE: OCT 06, 2023@11:13:06 AUTHOR: IRAJ DELGADO COSIGNER: URGENCY: STATUS: COMPLETED FAX/MAIL RECEIVED Has ADDENDA Document Received On: Sep Document Type: Other: LAB ORDER Date of Service: Sep Facility and or Provider: [facility] Contact Information: PCP of Record: NOLAN VERDUZCO Next visit with PCP: 12/23/2023 09:30 CWM/SO/PACT 9 12/31/2023 09:00 CWM/NO/OPTOMETRY 1 AM 03/18/2024 09:30 CWM/SO/PACT 9 NURSING Primary Care May keep copies of this document for up to 14 days and send the original for scanning. 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 /mariana/ KENIA DELGADO ADVANCED PHOTOGRAPH EDITOR Signed: 10/06/2023 11:19 KENIA DELGADO [place] Oct 06, 2023 11:08 AM PRIMARY CARE NOTE: LOCAL TITLE: WALK-IN NOTE PRIMARY CARE (T) STANDARD TITLE: PRIMARY CARE NOTE DATE OF NOTE: OCT 06, 2023@11:08 ENTRY DATE: OCT 06, 2023@11:08:26 AUTHOR: IRAJ DELGADO COSIGNER: URGENCY: STATUS: COMPLETED WALK-IN NOTE PRIMARY CARE (T) Has ADDENDA <====Click to Start Advanced Medical Support presents to the Primary Care clinic with the following request: [ ]Medication Renewal/Refill [ ]Consultation with Team RN [ ]Symptoms [ X ]Other [facility] states they are: [ X ]Waiting [ ]Not Waiting No Walk in visit scheduled with PACT Nurse [ X ] At this encounter the 's demographics were verified. [ X ] At this encounter the 's Insurance information was verified. [ X ] At this encounter the below scheduled visits for [facility] were discussed and appointment reminder card was offered. IS REQUEST PSA ORDER FROM [facility] IS ADDED TO [facility] LABS TO COMPLETE. ALSO IS REQUESTING TO BE SEEN BY PACT PROVIDER SOON POSSIBLE. DECLINE SO/SICK/CALL VISIT. Future appointments: 12/23/2023 09:30 CWM/SO/PACT 9 12/31/2023 09:00 CWM/NO/OPTOMETRY 1 AM 03/18/2024 09:30 CWM/SO/PACT 9 NURSING /mariana/ KENIA DELGADO ADVANCED PHOTOGRAPH EDITOR Signed: 10/06/2023 11:11 Receipt Acknowledged By: 10/06/2023 13:01 /mariana/ ISABEL FREDERICK LPN LPN 10/06/2023 11:29 /mariana/ WAGNER MOORE,RN- REGISTERED NURSE (RN) 10/06/2023 ADDENDUM STATUS: COMPLETED This headline writer spoke with he was requesting PSA order to competed today order was entered by Provider. /mariana/ ISABEL FREDERICK LPN LPN Signed: 10/06/2023 13:01 KENIA DELGADO
--- OUTSIDE RECORDS SUMMARY | 2024-08-30 18:26 | XMS_ITS | Continuity of Care Document ---
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 It does not include entries that were removed or entered in error. 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 Jun 23, 2023 Entered By: MEHUL VERDUZCO Comment: followed by [facility] Diverticular disease Active Condition Oct 21, 2018 Entered By: MEHUL VERDUZCO Comment: normal colonoscopy August, [facility] Epilepsy Active Condition February 11 16 Entered By: ALICIA MACHADO Comment: [facility] [phone] PA OV 12-05-15 [facility] Essential hypertension Active Condition February 12, 2016 Entered By: ALICIA MACHADO Comment: [facility] [phone] PA OV 12-05-15 [facility] Generalized anxiety disorder Active Condition [facility] History of partial adherence to treatment Active Condition Oct 03, 2021 Entered By: MEHUL VERDUZCO Comment: Sep 2020 - noted lapses in lisinopril refills [facility] Loss of teeth - acquired Active Condition Apr 25, 2022 Entered By: JAMES WOODRUFF Comment: vet needs dentures/ recurrent gum/dental infections/ empric abx Apr 2022 [facility] Olecranon bursitis Active Condition [facility] Osteoarthritis (SNOMED CT 286815223) Active Condition Dec 07, 2017 Entered By: ALICIA MACHADO Comment: C/S worst at C6-C7 2017 Entered By: ALICIA MACHADO Comment: mod OA Interphalamgeal joint right thumb 09/06 [facility] Paraesthesia of lower extremity (SNOMED CT 437786331) Active Condition Apr 23, 2021 Entered By: MEHUL VERDUZCO Comment: previously on gabapentinAug 2020 Entered By: MEHUL VERDUZCO Comment: recently with objective signs of dminished circulation to LEFT foot onlyAug 2020 Entered By: MEHUL VERDUZCO Comment: initial screen for metabolic/nutriti onal causes of neuropathy unrevealingOct 2020 Entered By: MEHUL VERDUZCO Comment: No show to neurology [facility], Summer 2020Oct 2020 Entered By: MEHUL VERDUZCO Comment: No show to Vascular consult, Summer 2020 [facility] status post appendectomy Active Condition [facility] Diagnosis: ICD-10-CM 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 [facility] Diagnosis: ICD-10-CM Z46.0 Encounter for fit/adjst of spectacles and contact lenses Active Diagnosis [facility] Diagnosis: ICD-10-CM N50.9 Disorder of male genital organs, unspecified Active Diagnosis [facility] Diagnosis: ICD-10-CM Z01.810 Encounter for preprocedural cardiovascular examination Active Diagnosis [facility] Diagnosis: ICD-10-CM Z23 Encounter for immunization Active Diagnosis [facility] Diagnosis: ICD-10-CM Z51.81 Encounter for therapeutic drug level monitoring Active Diagnosis [facility] Diagnosis: ICD-10-CM 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, unspecified Active Diagnosis [facility] Diagnosis: ICD-10-CM L82.1 Other seborrheic keratosis Active Diagnosis [facility] Diagnosis: ICD-10-CM Z13.89 Encounter for screening for other disorder Active [facility] Diagnosis: ICD-10-CM L02.818 Cutaneous abscess of other sites Active Diagnosis [facility] Diagnosis: ICD-10-CM L02.212 Cutaneous abscess of back [any part, except buttock] Active Diagnosis [facility] Diagnosis: ICD-10-CM W06.XXXA Fall from bed, initial encounter Active Diagnosis [facility] Diagnosis: ICD-10-CM H40.013 Open angle with borderline findings, low risk, bilateral Active Diagnosis [facility] Diagnosis: ICD-10-CM R97.20 Elevated prostate specific antigen [PSA] Active Diagnosis [facility] Diagnosis: ICD-10-CM I10 Essential (primary) hypertension Active Diagnosis [facility] Diagnosis: ICD-10-CM M54.59 Other low back pain Active Diagnosis [facility] Diagnosis: ICD-10-CM C61 Malignant neoplasm of prostate Active Diagnosis [place] [place] Diagnosis: ICD-10-CM 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 [facility] Diagnosis: ICD-10-CM Z59.00 Homelessness unspecified Active Diagnosis [facility] Diagnosis: ICD-10-CM Z00.01 Encounter for general adult medical exam w abnormal findings Active Diagnosis [facility] Diagnosis: ICD-10-CM R68.89 Other general symptoms and signs Active Diagnosis [facility] Diagnosis: ICD-10-CM R20.2 Paresthesia of skin Active Diagnosis [facility] Diagnosis: ICD-10-CM M54.50 Low back pain, unspecified Active Diagnosis [facility] Medications Combined list of outpatient medications from Department of Defense and Veterans Affairs facilities.Medications provided include 1) outpatient medications from the last 15 months, and 2) patient-reported medications. Medication Details Route Status Patient Instructions Prescription Expires Prescription Number Last Dispense Date Ordering Provider Order Date Order Qty Source ACETAMINOPH EN 500MG TAB TAKE TWO TABLETS BY MOUTH EVERY 6 HOURS NEEDED FOR PAIN ORAL 03/27/2024 [id number] Zoe MCLAIN 2023 100 [place] CAPSAICIN 0.025% CREAM,TOP APPLY A MODERATE AMOUNT TOPICALL Y FOUR TIMES A DAY FOR LOCALIZE D PAIN (USE FOR AT LEAST 4 WEEKS FOR EFFECT) TOPICA L ACTIVE 12/22/2024 [id number] VINICIO VERDUZCOANDREEA O 2023 60 [place] CARBOXYMETH YLCELLULOSE NA 0.5% SOLN,OPH INSTILL 1 DROP INTO EACH EYE FOUR TIMES DAILY NEEDED FOR DRY EYE OPHTHA LMIC DISCONT INUED BY PROVIDE R 12/23/2023 [id number] MERHAR,NO AH B 2022 45 [facility] CARBOXYMETH YLCELLULOSE NA 1% GEL,OPH APPLY 1 DROP INTO EACH EYE FOUR TIMES DAILY NEEDED FOR DRY EYE OPHTHA LMIC ACTIVE 12/31/2024 [id number] 4 MERSIENNA,NO AH B 2023 15 [facility] CEFUROXIME AXETIL 500MG TAB TAKE ONE TABLET BY MOUTH TWICE DAILY ORAL 03/23/2024 [id number] 4 PINKY HERRERA 2023 14 [place] CHOLECALCIF ELMA 10MCG (400UNIT) TAB TAKE ONE TABLET BY MOUTH ONCE DAILY FOR VITAMIN SUPPLEME NTATION ORAL ACTIVE 11/22/2024 [id number] 4 Mahnaz ROY AVID A 2023 90 [place] CIPROFLOXAC IN HCL 500MG TAB TAKE ONE TABLET BY MOUTH TWICE DAILY FOR 7 DAYS FOR INFECTIO N ORAL ACTIVE 09/24/2024 [id number] TAWANA BRANDON SOOR 2023 14 [place] CYANOCOBALA MIN 250MCG TAB TAKE ONE TABLET BY MOUTH ONCE DAILY ORAL ACTIVE 08/25/2025 [id number] 4 Mahnaz ROY AVID A 2023 100 [place] CYCLOSPORIN E 0.05% (PF) EMULSION,OP H,0.4ML INSTILL 1 DROP INTO EACH EYE TWICE DAILY FOR DRY EYE THIS REPLACES XIIDRA OPHTHA LMIC ACTIVE 03/22/2025 [id number] 4 MERHAR,NO AH B 2023 60 [place] FINASTERIDE 5MG TAB TAKE ONE TABLET BY MOUTH ONCE DAILY FOR ENLARGED PROSTATE ORAL ACTIVE 04/01/2025 [id number] 4 LUBA, APOLINARI O 2023 90 [place] FLUTICASONE PROPIONATE 50MCG/SPRAY SOLN,NASAL, 16GM INSTILL 1 SPRAY INTO EACH NOSTRIL TWICE DAILY NASAL ACTIVE RAYRAY APRIL THAPAKYE IA 2015 [place] FOLIC ACID 1MG TAB TAKE ONE TABLET BY MOUTH ONCE DAILY FOR INADEQUA TE FOLIC ACID VITAMIN/ NUTRITIO N SUPPLEME NT ORAL 06/25/2024 [id number] LUBA, APOLINARI O 2022 90 [place] KETOTIFEN 0.025% SOLN,OPH INSTILL 1 DROP INTO EACH EYE TWICE DAILY (IF YOU WEAR CONTACT LENSES, WAIT 10 MINUTES BEFORE INSERTIN G LENSES) OPHTHA LMIC ACTIVE 12/04/2024 [id number] 4 JEWEL,NO AH B 2023 15 [facility] KETOTIFEN 0.025% SOLN,OPH INSTILL 1 DROP INTO EACH EYE TWICE DAILY (IF YOU WEAR CONTACT LENSES, WAIT 10 MINUTES BEFORE INSERTIN G LENSES) OPHTHA LMIC DISCONT INUED 11/01/2023 [id number] CHANTEL BRYANT 2022 15 [place] LIFITEGRAST 5% SOLN,OPH,0. 2ML INSTILL 1 DROP INTO EACH EYE TWICE DAILY OPHTHA LMIC DISCONT INUED BY PROVIDE R 12/31/2024 [id number] 4 JEWEL,NO AH B 2023 60 [facility] LIFITEGRAST 5% SOLN,OPH,0. 2ML INSTILL 1 DROP INTO EACH EYE TWICE DAILY OPHTHA LMIC DISCONT INUED 11/01/2023 [id number] CHANTEL BRYANT 2022 60 [place] LISINOPRIL 20MG TAB TAKE ONE TABLET BY MOUTH ONCE DAILY TO CONTROL BLOOD PRESSURE ORAL ACTIVE 12/04/2024 [id number] 4 LUBA MANSOOR O 2023 90 [place] Allergies, Adverse Reactions, Alerts Combined list of allergies from Department of Defense and Veterans Affairs facilities. It does not include entries that were removed or entered in error. Substance Category Reaction Severity Reaction type Status Date Reported Comments Source HCTZ HYDROCHLOROT HIAZIDE Propensity to adverse reactions to drug (finding) Xerostomia active 8 [facility] Immunizations Combined list of available immunizations from the Department of Defense and Veterans Affairs facilities. Immunization Series Date Given Administered By Site Reaction Lot Number CVX Code Drug Head Filter Press Tender Status Comments Source INFLUENZA, HIGH-DOSE, TRIVALENT, PF 2023 NIK BRANDON H LEFT DELTO ID [id number] 135 complet ed [place] HEP A, ADULT 2 2023 PAOLA FREDERICK LEFT DELTO ID [id number] 52 complet ed [place] COVID-19 (MODERNA), MRNA, LNP-S, PF, 50 MCG/0.5 ML (AGES 12+ YEARS) 2022 PAOLA FREDERICK LEFT DELTO ID [id number] 312 complet ed [place] HEP A, ADULT 1 2022 PAOLA FREDERICK RIGHT DELTO ID [id number] 52 complet ed [place] INFLUENZA, HIGH-DOSE, QUADRIVALENT 2022 PAOLA FREDERICK LEFT DELTO ID [id number] 197 complet ed [place] INFLUENZA, INJECTABLE, QUADRIVALENT, PRESERVATIVE FREE 2022 PAOLA FREDERICK DY LEFT DELTO ID [id number] 150 complet ed [place] COVID-19 (MODERNA), MRNA, LNP-S, PF, 100 MCG/0.5ML DOSE OR 50 MCG/0.25ML DOSE 2021 207 complet ed [facility] ZOSTER RECOMBINANT 2 2021 187 complet ed [place] INFLUENZA, UNSPECIFIED FORMULATION 2020 88 complet ed [facility] ZOSTER RECOMBINANT 1 2020 187 complet ed [place] COVID-19 (MODERNA), MRNA, LNP-S, PF, 100 MCG/0.5 ML DOSE 2 2020 207 complet ed [facility] COVID-19 (MODERNA), MRNA, LNP-S, PF, 100 MCG/0.5 ML DOSE 1 2020 207 complet ed [facility] COVID-19 (MODERNA), MRNA, LNP-S, PF, 100 MCG/0.5 ML DOSE 1 2020 207 complet ed MOD; [id number]; 1 [facility] INFLUENZA, INJECTABLE, QUADRIVALENT, PRESERVATIVE FREE 2019 150 complet ed [place] TDAP 2019 115 complet ed Site: Right Deltoid [place] INFLUENZA, INJECTABLE, QUADRIVALENT 2018 158 complet ed Site: Left Deltoid [place] PNEUMOCOCCAL CONJUGATE PCV 13 2018 133 complet ed [place] INFLUENZA, SEASONAL, INJECTABLE 2016 141 complet ed Site: Left Deltoid [place] FLU,3 YRS (HISTORICAL) 2014 88 complet ed 11/15/2014 , 11/16/2013 [facility] PNEUMOCOCCAL POLYSACCHARID E [id number] 2012 33 complet ed IMMUNIZAT ION RECORD [facility] TD(ADULT) UNSPECIFIED FORMULATION 2010 139 complet ed IMM RECORDS [facility] TD(ADULT) UNSPECIFIED FORMULATION 2010 139 complet ed [facility] TD(ADULT) UNSPECIFIED FORMULATION 2010 139 complet ed [facility] Results Combined list of recent chemistry, hematology and other laboratory results from Department of Defense and Veterans Affairs, ranging from 15 months to all on record, depending upon the facility. Order Name Results Value Reference Range Date Interpretation Specimen Comments Source CBC AND DIFF (AUTO) LEUKOCYTES [#/VOLUME] IN BLOOD BY AUTOMATED COUNT 8.84 10*3/uL 4.50 - 11.00 08/24 Specimen Type: BLOOD No comment entered. Ordering Provider: DANISHA ROY A Report Released Date/Time: Aug 24, 2024 11:07 AM Reporting Lab: [facility] [address] [facility] [address] Performing Lab: [facility] [address] [address] [place] CBC AND DIFF (AUTO) ERYTHROCYT ES [#/VOLUME] IN BLOOD BY AUTOMATED COUNT 4.72 10*6/uL 4.23 - 5.66 08/24 Specimen Type: BLOOD No comment entered. Ordering Provider: DANISHA ROY A Report Released Date/Time: Aug 24, 2024 11:07 AM Reporting Lab: [facility] [address] [address] Performing Lab: [facility] [address] [address] [place] CBC AND DIFF (AUTO) HEMOGLOBIN [MASS/VOLU ME] IN BLOOD 12.8 g/dL 12.8 - 17 08/24 Specimen Type: BLOOD No comment entered. Ordering Provider: DANISHA ROY A Report Released Date/Time: Aug 24, 2024 11:07 AM Reporting Lab: [facility] [address] [address] Performing Lab: [facility] [address] [address] [place] CBC AND DIFF (AUTO) HEMATOCRIT [VOLUME FRACTION] OF BLOOD BY AUTOMATED COUNT 38.8 39.2 - 50.4 08/24 L Specimen Type: BLOOD No comment entered. Ordering Provider: DANISHA ROY A Report Released Date/Time: Aug 24, 2024 11:07 AM Reporting Lab: [facility] [address] Performing Lab: [facility] [address] [address] [place] CBC AND DIFF (AUTO) MCV [ENTITIC VOLUME] BY AUTOMATED COUNT 82.2 fL 82 - 99 08/24 Specimen Type: BLOOD No comment entered. Ordering Provider: DANISHA ROY A Report Released Date/Time: Aug 24, 2024 11:07 AM Reporting Lab: [facility] [address] [address] Performing Lab: [facility] [address] [address] [place] CBC AND DIFF (AUTO) MCHC [MASS/VOLU ME] BY AUTOMATED COUNT 33.0 g/dL 30.8 - 35.1 08/24 Specimen Type: BLOOD No comment entered. Ordering Provider: DANISHA ROY A Report Released Date/Time: Aug 24, 2024 11:07 AM Reporting Lab: [facility] [address] [address] Performing Lab: [facility] [address] [address] [place] CBC AND DIFF (AUTO) PLATELETS [#/VOLUME] IN BLOOD BY AUTOMATED COUNT 312 10*3/uL 140 - 360 08/24 Specimen Type: BLOOD No comment entered. Ordering Provider: DANISHA ROY A Report Released Date/Time: Aug 24, 2024 11:07 AM Reporting Lab: [facility] [address] [address] Performing Lab: [facility] [address] [place] CBC AND DIFF (AUTO) ERYTHROCYT E DISTRIBUTI ON WIDTH [RATIO] BY AUTOMATED COUNT 12.3 12.0 - 16.0 08/24 Specimen Type: BLOOD No comment entered. Ordering Provider: DANISHA ROY A Report Released Date/Time: Aug 24, 2024 11:07 AM Reporting Lab: [facility] [address] [address] Performing Lab: [facility] [address] [address] [place] CBC AND DIFF (AUTO) MONOCYTES [#/VOLUME] IN BLOOD BY AUTOMATED COUNT 0.39 10*3/uL 0.30 - 1.10 08/24 Specimen Type: BLOOD No comment entered. Ordering Provider: DANISHA ROY A Report Released Date/Time: Aug 24, 2024 11:07 AM Reporting Lab: [facility] [address] [facility] [address] Performing Lab: [facility] [facility] [address] [facility] [address] [place] CBC AND DIFF (AUTO) MCH [ENTITIC MASS] BY AUTOMATED COUNT 27.1 pg 26.2 - 32.6 08/24 Specimen Type: BLOOD No comment entered. Ordering Provider: DANISHA ROY A Report Released Date/Time: Aug 24, 2024 11:07 AM Reporting Lab: [facility] [facility] [address] [facility] [address] Performing Lab: [facility] [address] [address] [place] CBC AND DIFF (AUTO) NEUTROPHIL S/100 LEUKOCYTES IN BLOOD BY AUTOMATED COUNT 80.9 43.7 - 75.8 08/24 H Specimen Type: BLOOD No comment entered. Ordering Provider: DANISHA ROY A Report Released Date/Time: Aug 24, 2024 11:07 AM Reporting Lab: [facility] [address] [address] Performing Lab: [facility] [place] [address] [address] [place] CBC AND DIFF (AUTO) LYMPHOCYTE S/100 LEUKOCYTES IN BLOOD BY AUTOMATED COUNT 12.2 14.0 - 42.3 08/24 L Specimen Type: BLOOD No comment entered. Ordering Provider: DANISHA ROY A Report Released Date/Time: Aug 24, 2024 11:07 AM Reporting Lab: [facility] [address] [address] Performing Lab: [facility] [address] [address] [place] CBC AND DIFF (AUTO) MONOCYTES/ 100 LEUKOCYTES IN BLOOD BY AUTOMATED COUNT 4.4 5.1 - 13.7 08/24 L Specimen Type: BLOOD No comment entered. Ordering Provider: DANISHA ROY A Report Released Date/Time: Aug 24, 2024 11:07 AM Reporting Lab: [facility] [address] [address] Performing Lab: [facility] [address] [address] [place] CBC AND DIFF (AUTO) EOSINOPHIL S/100 LEUKOCYTES IN BLOOD BY AUTOMATED COUNT 1.6 0.4 - 6.8 08/24 Specimen Type: BLOOD No comment entered. Ordering Provider: DANISHA ROY A Report Released Date/Time: Aug 24, 2024 11:07 AM Reporting Lab: [facility] [address] [address] Performing Lab: [facility] [address] [address] [place] CBC AND DIFF (AUTO) BASOPHILS/ 100 LEUKOCYTES IN BLOOD BY AUTOMATED COUNT 0.7 0.1 - 2.0 08/24 Specimen Type: BLOOD No comment entered. Ordering Provider: DANISHA ROY A Report Released Date/Time: Aug 24, 2024 11:07 AM Reporting Lab: [facility] [address] [address] Performing Lab[facility] [address] [address] [place] CBC AND DIFF (AUTO) NEUTROPHIL S [#/VOLUME] IN BLOOD BY AUTOMATED COUNT 7.15 10*3/uL 2.20 - 7.60 08/24 Specimen Type: BLOOD No comment entered. Ordering Provider: DANISHA ROY A Report Released Date/Time: Aug 24, 2024 11:07 AM Reporting Lab: [facility] [address] [address] Performing Lab: [facility] [address] [address] [place] CBC AND DIFF (AUTO) LYMPHOCYTE S [#/VOLUME] IN BLOOD BY AUTOMATED COUNT 1.08 10*3/uL 1.00 - 3.20 08/24 Specimen Type: BLOOD No comment entered. Ordering Provider: DANISHA ROY A Report Released Date/Time: Aug 24, 2024 11:07 AM Reporting Lab: [facility] [address] [address] Performing Lab: [facility] [address] [address] [place] CBC AND DIFF (AUTO) EOSINOPHIL S [#/VOLUME] IN BLOOD BY AUTOMATED COUNT 0.14 10*3/uL 0.03 - 0.44 08/24 Specimen Type: BLOOD No comment entered. Ordering Provider: DANISHA ROY A Report Released Date/Time: Aug 24, 2024 11:07 AM Reporting Lab: [facility] [address] [address] Performing Lab: [facility] [address] [place] CBC AND DIFF (AUTO) BASOPHILS [#/VOLUME] IN BLOOD BY AUTOMATED COUNT 0.06 10*3/uL 0.01 - 0.13 08/24 Specimen Type: BLOOD No comment entered. Ordering Provider: DANISHA ROY A Report Released Date/Time: Aug 24, 2024 11:07 AM Reporting Lab: [facility] [address] Performing Lab: [facility] [address] [address] [place] CBC AND DIFF (AUTO) IMMATURE GRANULOCYT ES/100 LEUKOCYTES IN BLOOD BY AUTOMATED COUNT 0.2 0.0 - 0.7 08/24 Specimen Type: BLOOD No comment entered. Ordering Provider: DANISHA ROY A Report Released Date/Time: Aug 24, 2024 11:07 AM Reporting Lab: [facility] [address] [address] Performing Lab: [facility] [address] [place] CBC AND DIFF (AUTO) IMMATURE GRANULOCYT ES [#/VOLUME] IN BLOOD 0.02 10*3/uL 0.00 - 0.06 08/24 Specimen Type: BLOOD No comment entered. Ordering Provider: DANISHA ROY A Report Released Date/Time: Aug 24, 2024 11:07 AM Reporting Lab: [facility] [address] Performing Lab: [facility] [address] [place] CBC AND DIFF (AUTO) NRBC % 0.0 0.0 - 0.0 08/24 Specimen Type: BLOOD No comment entered. Ordering Provider: DANISHA ROY A Report Released Date/Time: Aug 24, 2024 11:07 AM Reporting Lab: [facility] [address] Performing Lab: [facility] [address] [place] CBC AND DIFF (AUTO) NRBC, ABS 0.00 10*3/uL 0.00 - 0.00 08/24 Specimen Type: BLOOD No comment entered. Ordering Provider: DANISHA ROY A Report Released Date/Time: Aug 24, 2024 11:07 AM Reporting Lab: [facility] [address] Performing Lab: [facility] [address] [place] MICROSCOP IC AUTOMATED , URINE LEUKOCYTES [#/AREA] IN URINE SEDIMENT BY MICROSCOPY HIGH POWER FIELD 0-5/[HP F] 0 - 5 08/24 Specimen Type: URINE Comment: If Glucose = >500 and Ketones are positive, please alert the Physician. Ordering Provider: ZAKI VERDUZCO Report Released Date/Time: Aug 09, 2024 09:43 AM Reporting Lab: [facility] [address] Performing Lab: [facility] [address] [facility] MICROSCOP IC AUTOMATED , URINE BACTERIA [#/AREA] IN URINE SEDIMENT BY MICROSCOPY HIGH POWER FIELD 1+/[HPF ] 08/24 Specimen Type: URINE Comment: If Glucose = >500 and Ketones are positive, please alert the Physician. Ordering Provider: ZAKI VERDUZCO Report Released Date/Time: Aug 09, 2024 09:43 AM Reporting Lab: [facility] [address] [facility] [address] Performing Lab: [facility] [address] [facility] [address] [facility] MICROSCOP IC AUTOMATED , URINE TRIPLE PHOSPHATE CRYSTALS [PRESENCE] IN URINE SEDIMENT BY LIGHT MICROSCOPY MODERAT E/[HPF] 08/24 Specimen Type: URINE Comment: If Glucose = >500 and Ketones are positive, please alert the Physician. Ordering Provider: ZAKI VERDUZCO Report Released Date/Time: Aug 09, 2024 09:43 AM Reporting Lab: [facility] [address] [facility] [address] Performing Lab: [facility] [address] [facility] [address] [facility] MICROSCOP IC AUTOMATED , URINE ERYTHROCYT ES [#/AREA] IN URINE SEDIMENT BY MICROSCOPY HIGH POWER FIELD 6-10/[H PF] 0 - 3 08/24 H Specimen Type: URINE Comment: If Glucose = >500 and Ketones are positive, please alert the Physician. Ordering Provider: ZAKI VERDUZCO Report Released Date/Time: Aug 09, 2024 09:43 AM Reporting Lab: [facility] [address] [facility] [id number] Performing Lab: [facility] [address] [facility] URINALYSI S COLOR OF URINE Light-B rown 08/24 Specimen Type: URINE Comment: If Glucose = >500 and Ketones are positive, please alert the Physician. Ordering Provider: ZAKI VERDUZCO Report Released Date/Time: Aug 09, 2024 09:43 AM Reporting Lab: [facility] [address] [facility] [address] Performing Lab: [facility] [address] [facility] [address] [facility] URINALYSI S APPEARANCE OF URINE Turbid 08/24 Specimen Type: URINE Comment: If Glucose = >500 and Ketones are positive, please alert the Physician. Ordering Provider: ZAKI VERDUZCO Report Released Date/Time: Aug 09, 2024 09:43 AM Reporting Lab: [facility] [facility] [address] [facility] [address] Performing Lab: [facility] [place] [facility] [address] [facility] [address] [facility] URINALYSI S GLUCOSE [MASS/VOLU ME] IN URINE Normalm g/dL 08/24 Specimen Type: URINE Comment: If Glucose = >500 and Ketones are positive, please alert the Physician. Ordering Provider: ZAKI VERDUZCO Report Released Date/Time: Aug 09, 2024 09:43 AM Reporting Lab: [facility] [place] [facility] [address] [facility] [address] Performing Lab: [facility] [place] [facility] [address] [facility] [address] [facility] URINALYSI S KETONES [MASS/VOLU ME] IN URINE BY TEST STRIP NEGATIV Emg/dL 08/24 Specimen Type: URINE Comment: If Glucose = >500 and Ketones are positive, please alert the Physician. Ordering Provider: ZAKI VERDUZCO Report Released Date/Time: Aug 09, 2024 09:43 AM Reporting Lab: [facility] [place] [facility] [address] [facility] [address] Performing Lab: [facility] [place] [facility] [address] [facility] [address] [facility] URINALYSI S ERYTHROCYT ES [PRESENCE] IN URINE SEDIMENT BY LIGHT MICROSCOPY LARGEmg /dL 08/24 Specimen Type: URINE Comment: If Glucose = >500 and Ketones are positive, please alert the Physician. Ordering Provider: ZAKI VERDUZCO Report Released Date/Time: Aug 09, 2024 09:43 AM Reporting Lab: [facility] [address] [facility] [address] Performing Lab: [facility] [address] [facility] [address] [facility] URINALYSI S PROTEIN [MASS/VOLU ME] IN URINE BY TEST STRIP 100 mg/dL 08/24 Specimen Type: URINE Comment: If Glucose = >500 and Ketones are positive, please alert the Physician. Ordering Provider: ZAKI VERDUZCO Report Released Date/Time: Aug 09, 2024 09:43 AM Reporting Lab: [facility] [address] Performing Lab: [facility] [address] [facility] URINALYSI S NITRITE [PRESENCE] IN URINE NEGATIV Emg/dL 08/24 Specimen Type: URINE Comment: If Glucose = >500 and Ketones are positive, please alert the Physician. Ordering Provider: ZAKI VERDUZCO Report Released Date/Time: Aug 09, 2024 09:43 AM Reporting Lab: [facility]ITAL[facility] [address] [address] Performing Lab: [facility] [address] [facility] URINALYSI S BILIRUBIN. TOTAL [PRESENCE] IN URINE NEGATIV Emg/dL 08/24 Specimen Type: URINE Comment: If Glucose = >500 and Ketones are positive, please alert the Physician. Ordering Provider: ZAKI VERDUZCO Report Released Date/Time: Aug 09, 2024 09:43 AM Reporting Lab: [facility] [address] [facility] [address] Performing Lab: [facility] [place] [facility] [address] [facility] [address] [facility] URINALYSI S SPECIFIC GRAVITY OF URINE BY REFRACTOME TRY 1.007 1.016 - 1.022 08/24 L Specimen Type: URINE Comment: If Glucose = >500 and Ketones are positive, please alert the Physician. Ordering Provider: ZAKI VERDUZCO Report Released Date/Time: Aug 09, 2024 09:43 AM Reporting Lab: [facility]ALS [facility]PITALTRN [facility] [address] [address] Performing Lab: [facility] [address] [facility] URINALYSI S PH OF URINE BY TEST STRIP 8.5 5.0 - 9.0 08/24 Specimen Type: URINE Comment: If Glucose = >500 and Ketones are positive, please alert the Physician. Ordering Provider: ZAKI VERDUZCO Report Released Date/Time: Aug 09, 2024 09:43 AM Reporting Lab: [facility] [address] [address] Performing Lab: [facility] [place] [address] [address] [facility] ALMARSHOALS HOSPITALTRN [facility] TS [facility] URINALYSI S UROBILINOG EN [MASS/VOLU ME] IN URINE BY TEST STRIP Normalm g/dL <2.0 - 2.0 08/24 Specimen Type: URINE Comment: If Glucose = >500 and Ketones are positive, please alert the Physician. Ordering Provider: ZAKI VERDUZCO Report Released Date/Time: Aug 09, 2024 09:43 AM Reporting Lab: [facility] [place] [place] [facility] [address] [facility] [address] Performing Lab: [facility]ITAL[facility]ENTERCHUSETS [address] [address] [facility]MARSHOALS [facility]OS[facility]ITALTRN [facility] URINALYSI S LEUKOCYTE ESTERASE [PRESENCE] IN URINE BY TEST STRIP LARGE 08/24 Specimen Type: URINE Comment: If Glucose = >500 and Ketones are positive, please alert the Physician. Ordering Provider: ZAKI VERDUZCO Report Released Date/Time: Aug 09, 2024 09:43 AM Reporting Lab: [facility] [address] [facility] [address] Performing Lab: [facility] [address] [facility] [address] [facility] VITAMIN D 25-OH (Therapy monitor) 25-HYDROXY VITAMIN D3 [MASS/VOLU ME] IN SERUM OR PLASMA 51 ng/mL 30 - 100 08/08 Specimen Type: SERUM Comment: Vitamin D, 25-Hydroxy reports concentrati ons of two common forms, 25-OHD2 and 25-OHD3. 25-OHD3 indicates both endogenous production and supplementa tion. 25-OHD2 is an indicator of exogenous sources such as diet or supplementa tion. Therapy is based on measurement of Total 25-OHD, with levels <20 ng/mL indicative of Vitamin D deficiency, while levels between 20 ng/mL and 30 ng/mL suggest insufficien cy. Optimal levels are > or = 30 ng/mL. For additional information , please refer to http://educ ation.Tenant Magic .com/faq/FA Q199 (This link is being provided for information al/ educational purposes only.) This test was developed and its analytical performance characteris tics have been determined by [facility] It has not been cleared or approved by the U.S. Food and Drug Administrat ion. This assay has been validated pursuant to the CLIA regulations and is used for clinical purposes. This test was developed and its analytical performance characteris tics have been determined by [facility] [place], [place]. It has not been cleared or approved by the U.S. Food and Drug Administrat [employer]. This assay has been validated pursuant to the CLIA regulations and is used for clinical purposes. Test Performed by [facility], [facility] [place], [address] [place], [place] Dov Bahena M.D., Ph.D., Director of Laboratorie s , CLIA [id number] TEST PERFORMED AT: , Ordering Provider: ZAKI VERDUZCO Report Released Date/Time: Aug 08, 2024 10:54 AM Reporting Lab: [facility] [address] [facility] [address] Performing Lab: [facility] [address] [address] [facility] VITAMIN D 25-OH (Therapy monitor) 25-HYDROXY VITAMIN D3 [MASS/VOLU ME] IN SERUM OR PLASMA 51 ng/mL 08/08 Specimen Type: SERUM Comment: Vitamin D, 25-Hydroxy reports concentrati ons of two common forms, 25-OHD2 and 25-OHD3. 25-OHD3 indicates both endogenous production and supplementa tion. 25-OHD2 is an indicator of exogenous sources such as diet or supplementa tion. Therapy is based on measurement of Total 25-OHD, with levels <20 ng/mL indicative of Vitamin D deficiency, while levels between 20 ng/mL and 30 ng/mL suggest insufficien cy. Optimal levels are > or = 30 ng/mL. For additional information , please refer to http://educ atSitestar.Tenant Magic .ZoeMob/faq/FA Q199 (This link is being provided for information al/ educational purposes only.) This test was developed and its analytical performance characteris tics have been determined by [facility] [place], [place]. It has not been cleared or approved by the U.S. Food and Drug Administrat ion. This assay has been validated pursuant to the CLIA regulations and is used for clinical purposes. This test was developed and its analytical performance characteris tics have been determined by [employer], [place]. It has not been cleared or approved by the U.S. Food and Drug Administrat Sitestar. This assay has been validated pursuant to the CLIA regulations and is used for clinical purposes. Test Performed by [facility], [facility] [place], [address] [place], [place] Dov Bahena M.D., Ph.D., Director of Laboratorie s , CLIA [id number] TEST PERFORMED AT: , Ordering Provider: ZAKI VERDUZCO Report Released Date/Time: Aug 08, 2024 10:54 AM Reporting Lab: [facility] [address] [facility] [address] Performing Lab: [facility] [address] [address] [facility] VITAMIN D 25-OH (Therapy monitor) CALCIFEROL (VIT D2) [MASS/VOLU ME] IN SERUM OR PLASMA <4ng/mL 08/08 Specimen Type: SERUM Comment: Vitamin D, 25-Hydroxy reports concentrati ons of two common forms, 25-OHD2 and 25-OHD3. 25-OHD3 indicates both endogenous production and supplementa tion. 25-OHD2 is an indicator of exogenous sources such as diet or supplementa tion. Therapy is based on measurement of Total 25-OHD, with levels <20 ng/mL indicative of Vitamin D deficiency, while levels between 20 ng/mL and 30 ng/mL suggest insufficien cy. Optimal levels are > or = 30 ng/mL. For additional information , please refer to http://educ ation.Tenant Magic .ZoeMob/faq/FA Q199 (This link is being provided for information al/ educational purposes only.) This test was developed and its analytical performance characteris tics have been determined by [facility] [place], [place]. It has not been cleared or approved by the U.S. Food and Drug Administrat ion. This assay has been validated pursuant to the CLIA regulations and is used for clinical purposes. This test was developed and its analytical performance characteris tics have been determined by [employer] [place], [place]. It has not been cleared or approved by the U.S. Food and Drug Administrat Sitestar. This assay has been validated pursuant to the CLIA regulations and is used for clinical purposes. Test Performed by [facility], [facility] [place], [address] [place], [place] Dov Bahena M.D., Ph.D., Director of Laboratorie s , CLIA [id number] TEST PERFORMED AT: , Ordering Provider: ZAKI VERDUZCO Report Released Date/Time: Aug 08, 2024 10:54 AM Reporting Lab: [facility] [address] [facility] [address] Performing Lab: [facility] [place] [facility] [address] [address] [facility] FOLATE (WROX) FOLATE [MASS/VOLU ME] IN SERUM OR PLASMA 4.07 ng/mL 5.2 08/08 L Specimen Type: SERUM No comment entered. Ordering Provider: ZAKI VERDUZCO Report Released Date/Time: Aug 08, 2024 10:54 AM Reporting Lab: [facility] [place] [facility] [address] [facility] [address] Performing Lab: [facility] [place] [facility] [address] [facility] [address] [facility] [facility] MICROALBU MIN CREATININ E RATIO PANEL MICROALBUM IN/CREATIN INE [MASS RATIO] IN URINE 354.2 mg/g 0 - 29.9 08/08 H Specimen Type: URINE No comment entered. Ordering Provider: ZAKI VERDUZCO Report Released Date/Time: Aug 08, 2024 10:54 AM Reporting Lab: [facility] [place] [facility] [address] [facility] [address] Performing Lab: [facility] [address] [facility] [address] [facility] [place] [facility] MICROALBU MIN CREATININ E RATIO PANEL MICROALBUM IN [MASS/VOLU ME] IN URINE 103.3 mg/dL 08/08 Specimen Type: URINE No comment entered. Ordering Provider: ZAKI VERDUZCO Report Released Date/Time: Aug 08, 2024 10:54 AM Reporting Lab: [facility] [facility] [address] [facility] [address] Performing Lab: [facility] [place] [facility] [address] [facility] [address] [facility] [facility] MICROALBU MIN CREATININ E RATIO PANEL CREATININE [MASS/VOLU ME] IN URINE 291.68 mg/dL 08/08 Specimen Type: URINE No comment entered. Ordering Provider: ZAKI VERDUZCO Report Released Date/Time: Aug 08, 2024 10:54 AM Reporting Lab: [facility] [place] [facility] [address] [facility] [address] Performing Lab: [facility] [place] [facility] [address] [facility] [address] [facility] VITAMIN B12 COBALAMIN (VITAMIN B12) [MASS/VOLU ME] IN SERUM OR PLASMA 1849 pg/mL 200 - 900 08/08 H Specimen Type: SERUM No comment entered. Ordering Provider: ZAKI VERDUZCO Report Released Date/Time: Aug 08, 2024 10:54 AM Reporting Lab: [facility] [place] [facility] [address] [facility] [address] Per[place] Lab: [place] [facility] [address] [address] [facility] LIPID PANEL FASTING CHOLESTERO L [MASS/VOLU ME] IN SERUM OR PLASMA 178 mg/dL 08/08 Specimen Type: SERUM No comment entered. Ordering Provider: ZAKI VERDUZCO Report Released Date/Time: Aug 08, 2024 10:54 AM Reporting Lab: [facility] [place] [facility] [address] [facility] [address] Performing Lab: [place] [facility] [place] [facility] [address] [facility] [address] [facility] LIPID PANEL FASTING TRIGLYCERI DE [MASS/VOLU ME] IN SERUM OR PLASMA 97 mg/dL 0 - 150 08/08 Specimen Type: SERUM No comment entered. Ordering Provider: ZAKI EVRDUZCO Report Released Date/Time: Aug 08, 2024 10:54 AM Reporting Lab: [facility] [place] [facility] [address] [facility] [address] Performing Lab: [facility] [place] [facility] [address] [facility] [address] [facility] LIPID PANEL FASTING CHOLESTERO L IN LDL [MASS/VOLU ME] IN SERUM OR PLASMA BY CALCULATIO N 97 mg/dL 0 - 129 08/08 Specimen Type: SERUM No comment entered. Ordering Provider: ZAKI VERDUZCO Report Released Date/Time: Aug 08, 2024 10:54 AM Reporting Lab: [facility] [place] [facility] [address] [facility] [address] Performing Lab: [place] [facility] [place] [facility] [address] [facility] [address] [facility] LIPID PANEL FASTING CHOLESTERO L.TOTAL/CH OLESTEROL IN HDL [MASS RATIO] IN SERUM OR PLASMA 2.9 08/08 Specimen Type: SERUM No comment entered. Ordering Provider: ZAKI VERDUZCO Report Released Date/Time: Aug 08, 2024 10:54 AM Reporting Lab: [facility] [place] [facility] [address] [facility] [address] Performing Lab: [place] [facility] [place] [facility] [address] [facility] [address] [facility] LIPID PANEL FASTING CHOLESTERO L IN HDL [MASS/VOLU ME] IN SERUM OR PLASMA 62 mg/dL 40 - 60 08/08 H Specimen Type: SERUM No comment entered. Ordering Provider: ZAKI VERDUZCO Report Released Date/Time: Aug 08, 2024 10:54 AM Reporting Lab: [facility] [place] [facility] [address] [facility] [address] Performing Lab: [facility] [place] [facility] [address] [facility] [address] [facility] HEMOGLOBI N A1C PANEL HEMOGLOBIN A1C/HEMOGL OBIN.TOTAL IN BLOOD BY HPLC 5.2 4.0 - 5.6 08/08 Specimen Type: BLOOD Comment: Values obtained from A1C measurement s can vary. For atypical A1C assays, a reported value of 7.0 could actually be between 6.72 and 7.28 if measured by a reference method. A reported value of 9.0 could actually be between 8.73 and 9.27. Ref: http://www. ngsp.org/CA Pdata.asp Ordering Provider: ZAKI VERDUZCO Report Released Date/Time: Aug 08, 2024 10:54 AM Reporting Lab: [facility] [place] [address] [address] Performing Lab: [facility] [address] [facility]MARCARRAW[facility] BASIC METABOLIC PANEL (fasting) UREA NITROGEN [MASS/VOLU ME] IN SERUM OR PLASMA 22 mg/dL 7 - 25 08/08 Specimen Type: SERUM No comment entered. Ordering Provider: ZAKI VERDUZCO Report Released Date/Time: Aug 08, 2024 10:54 AM Reporting Lab: [facility] [place] [facility] [address] [facility] [address] Performing Lab: [place] [facility] [place] [facility] [address] [facility] [address] [facility] BASIC METABOLIC PANEL (fasting) GLUCOSE [MASS/VOLU ME] IN SERUM OR PLASMA 91 mg/dL 65 - 100 08/08 Specimen Type: SERUM No comment entered. Ordering Provider: ZAKI VERDUZCO Report Released Date/Time: Aug 08, 2024 10:54 AM Reporting Lab: [facility] [place] [facility] [address] [facility] [address] Performing Lab: [facility] [address] [facility]ITAL[facility] BASIC METABOLIC PANEL (fasting) SODIUM [MOLES/VOL UME] IN SERUM OR PLASMA 138 mmol/L 135 - 145 08/08 Specimen Type: SERUM No comment entered. Ordering Provider: ZAKI VERDUZCO Report Released Date/Time: Aug 08, 2024 10:54 AM Reporting Lab: [place] [facility] [place] [facility] [address] [facility] [address] Performing Lab: [place] [facility] [place] [facility] [address] [facility] [address] [place] [facility] [place] [facility] BASIC METABOLIC PANEL (fasting) POTASSIUM [MOLES/VOL UME] IN SERUM OR PLASMA 4.8 mmol/L 3.5 - 5.0 08/08 Specimen Type: SERUM No comment entered. Ordering Provider: ZAKI VERDUZCO Report Released Date/Time: Aug 08, 2024 10:54 AM Reporting Lab: [place] [facility] [place] [facility] [address] [facility] [address] Performing Lab: [place] [facility] [facility] [address] [facility] [address] [facility] BASIC METABOLIC PANEL (fasting) CHLORIDE [MOLES/VOL UME] IN SERUM OR PLASMA 105 mmol/L 100 - 110 08/08 Specimen Type: SERUM No comment entered. Ordering Provider: ZAKI VERDUZCO Report Released Date/Time: Aug 08, 2024 10:54 AM Reporting Lab: [place] [facility] [place] [address] [address] Performing Lab: [place] [facility] [place] [facility] [address] [facility] [address] [facility] BASIC METABOLIC PANEL (fasting) CARBON DIOXIDE, TOTAL [MOLES/VOL UME] IN SERUM OR PLASMA 25 meq/L 20 - 30 08/08 Specimen Type: SERUM No comment entered. Ordering Provider: ZAKI VERDUZCO Report Released Date/Time: Aug 08, 2024 10:54 AM Reporting Lab: [place] [facility] [place] [facility] [address] [facility] [address] Performing Lab: [place] [facility] [facility] [address] [facility] [address] [place] [facility] BASIC METABOLIC PANEL (fasting) CREATININE [MASS/VOLU ME] IN SERUM OR PLASMA 0.99 mg/dL 0.50 - 1.40 08/08 Specimen Type: SERUM No comment entered. Ordering Provider: ZAKI VERDUZCO Report Released Date/Time: Aug 08, 2024 10:54 AM Reporting Lab: [facility] [place] [facility] [address] [facility] [address] Performing Lab: [place] [facility] [place] [facility] [address] [facility] [address] [facility] BASIC METABOLIC PANEL (fasting) GLOMERULAR FILTRATION RATE/1.73 SQ M.PREDICTE D [VOLUME RATE/AREA] IN SERUM, PLASMA OR BLOOD BY CREATININE -BASED FORMULA (CKD-EPI 2020) 77 mL/min 60 08/08 Specimen Type: SERUM No comment entered. Ordering Provider: ZAKI VERDUZCO Report Released Date/Time: Aug 08, 2024 10:54 AM Reporting Lab: [place] [facility] [place] [facility] [address] [facility] [address] Performing Lab: [place] [facility] [place] [facility] [address] [facility] [address] [place] [facility] [facility] [facility] Vital Signs Combined list of inpatient and outpatient Vital Signs from Department of Defense and Veterans Affairs, ranging from 12 months to all on record, depending upon the facility. Vital Sign Value Date Comments Source SYSTOLIC BLOOD PRESSURE 154 08/24/20 24 12:28:43 [facility] DIASTOLIC BLOOD PRESSURE 78 12:28:43 [facility] PULSE OXIMETRY 97 08/24/2024 12:28:43 [facility] PAIN 0 08/24/2024 12:28:43 [facility] HEIGHT 70 08/24/2024 12:28:43 [facility] PULSE 68 08/24/2024 12:28:43 [facility] RESPIRATION 20 08/24/2024 12:28:43 [facility] SYSTOLIC BLOOD PRESSURE 155 08/09/20 24 09:58:25 [place] [facility] [place] [place] [facility] DIASTOLIC BLOOD PRESSURE 78 024 09:58:25 [place] [facility] [facility] PULSE OXIMETRY 97 08/09/2024 09:58:25 [place] [facility] [place] [facility] WEIGHT 179.8 08/09/2024 09:58:25 [facility] [place] [facility] BMI 26kg/m2 08/09/2024 09:58:25 [facility] [place] [facility] PAIN 0 08/09/2024 09:58:25 [facility] [place] [facility] HEIGHT 70 08/09/2024 09:58:25 [facility] [place] [facility] TEMPERATURE 97.3 08/09/2024 09:58:25 [facility] [facility] PULSE 65 08/09/2024 09:58:25 [facility] RESPIRATION 20 08/09/2024 09:58:25 [facility] SYSTOLIC BLOOD PRESSURE 147 06/21/20 24 09:42:36 [facility] DIASTOLIC BLOOD PRESSURE 73 024 09:42:36 [facility] PULSE OXIMETRY 97 06/21/2024 09:42:36 [facility] WEIGHT 207 06/21/2024 09:42:36 [facility] BMI 30kg/m2 06/21/2024 09:42:36 [facility] PAIN 0 06/21/2024 09:42:36 [facility] HEIGHT 70 06/21/2024 09:42:36 [facility] TEMPERATURE 96.4 06/21/2024 09:42:36 [facility] PULSE 20 06/21/2024 09:42:36 [facility] RESPIRATION 20 06/21/2024 09:42:36 [facility] SYSTOLIC BLOOD PRESSURE 138 04/27/20 24 10:09:05 [facility] DIASTOLIC BLOOD PRESSURE 82 024 10:09:05 [facility] PULSE OXIMETRY 96 04/27/2024 10:09:05 [facility] WEIGHT 184 04/27/2024 10:09:05 [facility] BMI 26kg/m2 04/27/2024 10:09:05 [facility] TEMPERATURE 97 04/27/2024 10:09:05 [facility] PULSE 88 04/27/2024 10:09:05 [facility] SYSTOLIC BLOOD PRESSURE 103 03/21/20 24 09:53:18 [facility] DIASTOLIC BLOOD PRESSURE 65 024 09:53:18 [facility] PULSE OXIMETRY 96 03/21/2024 09:53:18 [facility] WEIGHT 186 03/21/2024 09:53:18 [facility] BMI 27kg/m2 03/21/2024 09:53:18 [facility] PAIN 0 03/21/2024 09:53:18 [facility] HEIGHT 70 03/21/2024 09:53:18 [facility] TEMPERATURE 96.7 03/21/2024 09:53:18 [facility] PULSE 85 03/21/2024 09:53:18 [facility] RESPIRATION 20 03/21/2024 09:53:18 [facility] Encounters Combined list of: 1) Encounters from Department of Veterans Affairs facilities going back up to thelast 18 months. 2) Encounters from the Department of Defense facilities going back up to 280 months. Location Location Details Encounter Type Encounter Number Reason For Visit Attending Provider ADM Date DC Date Status Disposition Source [facility] OFF/OP EST JANUARY X REQ PHY/QHP [id number] Diagnos is: ICD-10- CM M54.50 Low back pain, unspeci fied
JOSE REDDY IC K 04/20 [place] [facility] Encounter [id number] 04/20 [facility] [id number] 04/20 [facility] Encounter [id number] 04/21 [facility] [id number] 04/22 [facility]counter [id number] 05/08 [facility]counter [id number] 05/20 [facility] Encounter [id number] ARSH CORBETT ON 05/20 [facility] Encounter [id number] 05/22 [facility] Encounter [id number] 05/28 [facility] [place] OFF/OP EST JANUARY X REQ PHY/QHP [id number] Diagnos is: ICD-10- CM R20.2 Paresth esia of skin
Lou VERDUZCO 06[facility]02 [facility] En[facility] [id number] 06/03 [facility] En[facility] [id number] 06/04 [facility] Encounter [id number] 06/04 [facility] OFF/OP EST MAY X REQ PHY/QHP [id number] Diagnos is: ICD-10- CM R68.89 Other general symptom s and signs<b r/> BARRY,ER IC K 06/05 [facility] Outpatient Encounter [id number] 06/05 [facility] Encounter [id number] 06/08 [place] [facility] Outpatient Encounter [id number] 06/10 [facility] [place] OFFICE O/P EST MOD 30-39 MIN [id number] Diagnos is: ICD-10- CM Z00.01 Encount er for general adult medical exam w abnorma l finding s
LUBA,A POLINARIO 06/23 [place] [facility] Out[facility] Encounter [id number] 06/23 [facility] PEER SVC PER 15MIN [id number] Diagnos is: ICD-10- CM Z59.00 Homeles sness unspeci fied
CAPELLA,CY NTHIA 06[facility]25 [facility] LOW 20-29 MIN [id number] Diagnos is: ICD-10- CM D52.8 Other folate deficie ncy anemias
LUBA,A POLINARIO 06/30 [place] OFFICE O/P NEW MOD 45-59 MIN [id number] Diagnos is: ICD-10- CM C61 Maligna nt neoplas m of prostat e
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
LUBA,A POLINARIO 07/06 [place] [facility] Encounter [id number] 07/14 [facility] Encounter [id number] 07/16 [facility] OFFICE O/P NEW MOD 45-59 MIN [id number] Diagnos is: ICD-10- CM M54.59 Other low back pain
NICANOR MARIA RA 07/16 [facility] En[facility] [id number] 07/17 [facility] Encounter [id number] 07/20 [facility] Encounter [id number] 07/21 [facility] Encounter [id number] 08/10 [facility] Encounter [id number] 08/14 [facility] Encounter [id number] 08/24 [facility] Encounter [id number] 09/16 [facility] [place] O/P EST LOW 20-29 MIN [id number] Diagnos is: ICD-10- CM I10 Essenti al (primar y) hyperte nsion<b r/> Lou VERDUZCO POLIMARLIN 09/18 [place] [facility] Out[facility] Encounter [id number] 10/06 [facility] Encounter [id number] 10/06 [facility] Encounter [id number] 10/06 [facility] Encounter [id number] 10/06 [facility] [place] Outpatient Encounter [id number] Lou VERDUZCO POLINARIO 10/06 [place] [facility] Out[facility] Encounter [id number] 10/08 [facility] Encounter [id number] 10/14 [facility] Encounter [id number] 10/26 [facility] Out[facility] Encounter [id number] 12/03 [facility] Out[facility] Encounter [id number] 12/03 [facility] [place] OFF[place] O/P EST MOD 30 MIN [id number] Diagnos is: ICD-10- CM R97.20 Elevate d prostat e specifi c antigen [PSA]<b r/> Lou VERDUZCO POLIYASMINIO 12/21 [place] [facility] COMPRE OPH EXAM EST PT 1/> [id number] Diagnos is: ICD-10- CM H40.013 Open angle with borderl ine finding s, low risk, bilater al
MERHAR,ALANA H B 12/30 [facility] CMPTR OPHTH IMG OPTIC NERVE [id number] Diagnos is: ICD-10- CM H40.013 Open angle with borderl ine finding s, low risk, bilater al
MERHAR,ALANA H B 12/30 [facility] [place] O/P EST MOD 30 MIN [id number] Diagnos is: ICD-10- CM W06.XXX A Fall from bed, initial encount er
Lou VERDUZCO 01/21 [facility] Outpatient Encounter [id number] 01/24 [facility] Outpatient Encounter [id number] 01/27 [facility] Out[facility] Encounter [id number] 02/21 [facility] Outpatient Encounter [id number] 02/25 [facility] [place] OFF/OP EST JANUARY X REQ PHY/QHP [id number] Diagnos is: ICD-10- CM L02.212 [place]aneo us abscess of back [any part, except buttock ]
LATISHA RIVERA 02/25 [facility] Outpatient Encounter [id number] 02/25 [facility] [place] OFF[place] O/P EST MOD 30 MIN [id number] Diagnos is: ICD-10- CM L02.818 [place] us abscess of other sites<b r/> ROWDY MCLAIN 02/25 [facility] Outpatient Encounter [id number] 03/02 [facility] [place] UNLISTED SPEC DERM SVC/PX [id number] Diagnos is: ICD-10- CM Z13.89 Encount er for screeni ng for other disorde r
SWETHA,Sree [place] [facility] Outpatient Encounter [id number] Diagnos is: ICD-10- CM L82.1 Other seborrh eic keratos is
ADRIANNE MELISSA 03/14 [facility] Outpatient Encounter [id number] 1.03/14 [facility] Out[facility] Encounter [id number] 1.03/14 [facility] Outpatient Encounter [id number] 1.03/18 [facility] OFFICE O/P EST MOD 30 MIN [id number] Diagnos is: ICD-10- CM N13.9 Obstruc tive and reflux uropath y, unspeci fied
Lou VERDUZCO 03/21 [facility] [place] [facility] Outpatient Encounter [id number] 03/21 [facility] QNHP OL DIG ASSMT&MGMT 5-10 [id number] Diagnos is: ICD-10- CM Z51.81 Encount er for therape utic drug level monitor ing<br/ > CHAY DAVIS 03[place]21 [place] [facility] Outpatient Encounter [id number] 04/04 [facility] Encounter [id number] 04/07 [facility] Outpatient Encounter [id number] 04/19 [facility] OFFICE O/P EST MOD 30 MIN [id number] Diagnos is: ICD-10- CM 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
LUBA,A POLINARIO 04/27 [place] [facility] Out[facility] Encounter [id number] 1.05/20 [facility] OFF/OP EST JANUARY X REQ PHY/QHP [id number] Diagnos is: ICD-10- CM Z23 Encount er for immuniz ation<b r/> ROMA,L BERTIN H 05/31 [place] [facility] Outpatient Encounter [id number] 06/01 [facility] Out[facility] Encounter [id number] 06/01 [facility] Out[facility] Encounter [id number] 06/03 [facility] Out[facility] Encounter [id number] 06/07 [facility] Outpatient Encounter [id number] 06/07 [facility] Out[facility] Encounter [id number] 06/13 [facility] Outpatient Encounter [id number] 06/16 [facility] OFFICE O/P EST MOD 30 MIN [id number] Diagnos is: ICD-10- CM Z01.810 Encount er for preproc edural cardiov ascular examina tion
LUBA,A TOYINIO 06/21 [facility] Out[facility] Encounter [id number] 06/23 [facility] Out[facility] Encounter [id number] 06/24 [facility] Outpatient Encounter [id number] 06/29 [facility] Out[facility] Encounter [id number] 06/30 [facility] Out[facility] Encounter [id number] 1.07/06 [facility] Out[facility] Encounter [id number] 07/07 [facility] Outpatient Encounter [id number] 1.07/07 [facility] Out[facility]counter [id number] 07/18 [facility] Out[facility] Encounter [id number] 07/19 [facility] Out[facility] Encounter [id number] 07/20 [facility] Out[facility] Encounter [id number] 07/26 [facility] Out[facility]counter [id number] 07/29 [facility] Outpatient Encounter [id number] 08/04 [facility] [place] OFFICE O/P EST MOD 30 MIN [id number] 1BY. 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
LUBA,A POLINARIO 08/17 [place] [facility] FIT SPECT[employer]LES BIFOCAL [id number] Diagnos is: ICD-10- CM Z46.0 Encount er for fit/adj st of spectac les and contact lenses< br/> JEEVAN UMANA 08/22 [facility] Outpatient Encounter [id number] 08/22 [facility] Outpatient Encounter [id number] 08/24 [place] [facility] [place] [facility] OFFICE O/P EST HI 40 MIN [id number] Diagnos is: ICD-10- CM 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
HUMBERTO ROY VID A 08/24 [facility] [place] [facility] Outpatient Encounter [id number] 08/25 [place] [facility] [place] [facility] Outpatient Encounter [id number] 08/29 [facility] Social History Combined list of available smoking, tobacco, and other social history from Department of Defense and Veterans Affairs facilities. Social History Type Response Date Comment Sourc e Tobacco smoking status [facility] NEVER USED 05/31/2024 [facility] of [facility] Y[facility] OR MORE [facility]/23/2023 [facility] of tobacco use [place] FOR[facility] 05/01/2022 [facility] History of tobacco use [place] FOR[facility] 04/15/2021 [facility] History of tobacco use [place] [facility] 10/20/2018 [facility] History of tobacco use QUIT TOBACCO USE > 7 YEARS AGO 07/03/2017 quit 25yrs ago [facility] History of tobacco use LIFETIME NON-TOBA [employer] USER 02/13/2016 [facility] Plan of Care List of future care activities from [facility] facilities. Additional future care activities may be listed in the Assessment and Plan section. Date/Time Care Activity Care Activity Detail Facili ty 12/13/2024 AMBULATORY - MEDICINE AMBULATORY - MEDICI [facility] 01/02/2025 AMBULATORY - MEDICINE [facility] 08/09/2024 Consult Order [facility] FROYLANOGTammy Cons Banquet [facility] Advance Directives List of completed, amended, or rescinded Advance Directives on record at Department of Veterans Affairs facilities. An actual copy of the Directive is not included. Date Advance Directive Provider Source 04/04/2024 [facility]
--- OUTSIDE RECORDS SUMMARY | 2024-08-30 18:26 | XMS_ITS ---
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 Name Role Phone NOLAN VERDUZCO Primary Care [...] Segal's Name Patient's Relationship to Policy Segal [facility] ([facility]) MEDICARE ADVANTAGE [place] INDIV IDUAL - MASS Sep 21, 2023 [id number] [phone] MARVIN DUGANI S [facility] MEDICARE ADVANTAGE [facility] ([facility]) Sep 21, 2023 [id number] [phone] DUGANMARVINI S PATIENT HUSKY MEDICAID HUSKY PLAN May 22, 2022 MEDICAI D [id number] MARVIN DUGANI S PATIENT MEDICARE ([facility]) MEDICARE () PART B May 22, 2022 PART B [id number] DUGANMARVINI S PATIENT MEDICARE ([facility]) MEDICARE (M) PART A Feb 19, 2009 PART A [id number] DUGAN,GENET S PATIENT MEDICARE PART D (WNR) MEDICARE (M) PART D Jul 22, 2022 PART D [id number] GENET DUGAN PATIENT [facility] (WNR) MEDICARE ADVANTAGE [facility] (WNR) Sep 21, 2022 [id number] GENET DUGAN PATIENT [facility] (WNR) MEDICARE ADVANTAGE MCR (WNR) Sep 21, 2022 [id number] [phone] GENET DUGAN PATIENT Selected Encounter This section includes the information on record at CT for the Encounter. Date/Time Encounter Type Encounter Description Reason Pro vider Source Sep 16, 2023 12:28 PM Outpatient Encounter PRIMARY CARE/MEDICINE IHE Encounter Template Text not used by CT Plan of Treatment: Future Appointments (+ 6 months) and Future Tests (+/- 45 days) The Plan of Treatment section includes future care activities for the patient from all CT treatmentfacilities. This section includes future appointments and future orders which are active, pending or scheduled. Future Appointments This section includes appointments that were scheduled to occur 6 months from the date of the Encounter, up to a maximum of 20 appointments. The data comes from all CT treatment facilities. Appointment Date/Time Appointment Type Appointme nt Facility Name Sep 18, 2023 11:00 AM AMBULATORY - MEDICINE [place] [facility] Dec 22, 2023 10:00 AM AMBULATORY - MEDICINE [facility] [place] [facility] Dec 31, 2023 09:00 AM AMBULATORY - MEDICINE [facility] [place] [facility] Dec 31, 2023 10:30 AM AMBULATORY - MEDICINE CT C [place] [facility] January 22, 2024 02:30 PM AMBULATORY - MEDICINE CT C [place] [facility] Feb 26, 2024 01:00 PM AMBULATORY - MEDICINE [facility] Feb 26, 2024 01:15 PM [facility]BULATORY - MEDICINE [facility] Mar 10, 2024 09:00 AM AMBULATORY - NONE [place] [facility] Lab Results: +/- 30 days of the encounter This section includes the Chemistry and Hematology Lab Results on record with CT for the patient. Radiology Reports and Pathology Reports are provided separately, in subsequent sections. Lab Results This section contains the Chemistry/Hematology Results that were resulted 30 days before or 30 daysafter the date of the Encounter. Date/Time Source Result Type Result - Unit Interpretation Reference Range Comment Oct 06, 2023 12:48 PM [facility] PSA Specimen Type: SERUM No comment entered. Ordering Provider: HAYLEY VERDUZCO Report Released Date/Time: Oct 06, 2023 12:38 PM Reporting Lab: [facility] [address] [facility] [address] Performing Lab: [facility] [address] [address] PSA 21.53 ng/mL H 0.00-4.00 Sep 18, 2023 12:07 PM [facility] FOLATE Specimen Type: SERUM No comment entered. Ordering Provider: HAYLEY VERDUZCO Report Released Date/Time: Sep 18, 2023 11:50 AM Reporting Lab: [facility] [address] [address] Performing Lab: [facility] [address] [facility] [address] FOLATE 3.83 ng/mL L >5.2 Advance Directives: All historical and current Section Date Range: From patient's date of to the date document was created. This section includes ALL of a patient's completed or amended CT Advance and Rescinded Directives. The entries below indicate that a directive exists for the patient, but an actual copy is not included with this document. The data comes from all CT facilities. Date Advance Directives Provider Source Apr 04, 2024 ADVANCE DIRECTIVE [facility] Radiology Reports: +/- 30 days of [...] the Encounter. The data comes from all CT treatment facilities. Date/Time Radiology Report Provider Source Oct 14, 2023 02:[address] ABDOMEN /PELVIS W/WO CONTRAST: JAKE DUGAN [id number] -1945 M Exm Date: OCT 14, 2023@14:00 Req Phys: LUBA,NOLAN Pat Loc: [facility]/OUTSIDE IMAGING NON-CNT (R Img Loc: OUTSIDE GENERAL RADIOLOGY Service: Unknown (Case [id number] COMPLETE) OUTSIDE CT ABDOMEN/PELVIS W/WO CO(RAD Detailed) CPT:88823 Reason for Study: outside images have been uploaded for continuity of care Clinical History: outside images have been uploaded for continuity of care Report Status: Electronically Filed Date Reported: OCT 14, 2023 Report: THIS EXAM WAS PERFORMED AND INTERPRETED AT AN OUTSIDE HOSPITAL Impression: THIS EXAM WAS PERFORMED AND INTERPRETED AT AN OUTSIDE HOSPITAL Primary Diagnostic Code: VERIFIED BY: / *ELECTRONICALLY FILED* CT [facility]L [facility] Encounter Notes: All associated encounter notes This section contains the clinical notes associated to the Encounter. Date/Time Encounter Note(s) Provider Source Sep 16, 2023 01:40 PM ADDENDUM: LOCAL TITLE: Addendum STANDARD TITLE: ADDENDUM DATE OF NOTE: SEP 16, 2023@13:40 ENTRY DATE: SEP 16, 2023@13:40:01 AUTHOR: JAME MARQUEZ EXP COSIGNER: URGENCY: STATUS: COMPLETED AMSA--Please call to schedule appt, labs will be entered during pre- planning. Thanks /mariana/ Jame Marquez RN Registered Nurse (RN) Signed: 09/16/2023 13:40 Receipt Acknowledged By: 09/16/2023 13:47 /mariana/ DANIELE ROSE AMSA --- Original Document --- 09/16/23 WALK-IN NOTE PRIMARY CARE (T): <====Click to Start Advanced Medical Support presents to the Primary Care clinic with the following request: [ ]Medication Renewal/Refill [ ]Consultation with Team RN [ ]Symptoms [ X ]OtherBlood work [facility] states they are: [ ]Waiting [ X ]Not Waiting No Walk in visit scheduled with PACT Nurse [ X ] At this encounter the 's demographics were verified. [ X ] At this encounter the 's Insurance information was verified. [ X ] At this encounter the below scheduled visits for the [facility] were discussed and appointment reminder card was offered. Future appointments: 09/29/2023 13:45 CWM/SO/MOD BOOSTER 12/23/2023 09:30 CWM/SO/PACT 9 12/31/2023 09:00 CWM/NO/OPTOMETRY 1 AM came in requesting blood work and would like to be seen by the provider states he has prostate cancer. Requesting a sooner appt says he will be going away to [place]. /mariana/ CHAPINCITO MCINTYRE Signed: 09/16/2023 12:31 Receipt Acknowledged By: * AWAITING SIGNATURE * ISABEL FREDERICK 09/16/2023 13:40 /mariana/ Jame Marquez RN Registered Nurse (RN) for JELANI BRANDON 09/16/2023 ADDENDUM STATUS: COMPLETED Repair Servicer scheduled appt on 09/18/2023 @ 11:00 am. /es/ DANIELE MCINTYRE Signed: 09/16/2023 13:47 JAME MARQUEZ CEASAR Sep 16, 2023 12:28 PM PRIMARY CARE NOTE: LOCAL TITLE: WALK-IN NOTE PRIMARY CARE (T) STANDARD TITLE: PRIMARY CARE NOTE DATE OF NOTE: SEP 16, 2023@12:28 ENTRY DATE: SEP 16, 2023@12:28:26 AUTHOR: CHAPINCITO DEE EXP COSIGNER: URGENCY: STATUS: COMPLETED WALK-IN NOTE PRIMARY CARE (T) Has ADDENDA <====Click to Start Advanced Medical Support presents to the Primary Care clinic with the following request: [ ]Medication Renewal/Refill [ ]Consultation with Team RN [ ]Symptoms [ X ]OtherBlood work The states they are: [ ]Waiting [ X ]Not Waiting No Walk in visit scheduled with PACT Nurse [ X ] At this encounter [facility]'s demographics were verified. [ X ] At this encounter the 's Insurance information was verified. [ X ] At this encounter the below scheduled visits for the [facility] were discussed and appointment reminder card was offered. Future appointments: 09/29/2023 13:45 CWM/SO/MOD BOOSTER 12/23/2023 09:30 CWM/SO/PACT 9 12/31/2023 09:00 CWM/NO/OPTOMETRY 1 AM [facility] came in requesting blood work and would like to be seen by the provider states he has prostate cancer. Requesting a sooner appt says he will be going away to [place]. /mariana/ CHAPINCITO MCINTYRE Signed: 09/16/2023 12:31 Receipt Acknowledged By: 09/18/2023 11:21 /es/ ISABEL FREDERICK LPN LPN 09/16/2023 13:40 /mariana/ Jame Marquez RN Registered Nurse (RN) for JELANI BRANDON 09/16/2023 ADDENDUM STATUS: COMPLETED AMSA--Please call to schedule appt, labs will be entered during pre- planning. Thanks /mariana/ Jame Marquez RN Registered Nurse (RN) Signed: 09/16/2023 13:40 Receipt Acknowledged By: 09/16/2023 13:47 /mariana/ DANIELE MCINTYRE 09/16/2023 ADDENDUM STATUS: COMPLETED Repair Servicer scheduled appt on 09/18/2023 @ 11:00 am. /mariana/ DANIELE MCINTYRE Signed: 09/16/2023 13:47 CHAPINCITO DEE
--- OUTSIDE RECORDS SUMMARY | 2024-08-30 18:26 | XMS_ITS | Encounter Summary ---
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 Organization [place] Address [address] [place] [id number] Care Team Providers Care Extrusion Bender Name Role Phone NOLAN VERDUZCO Primary Care [...] Segal's Name Patient's Relationship to Policy Segal [facility] MEDICARE ADVANTAGE [place] INDIV IDUAL - [place] Sep 21, 2023 [id number] [phone] GENET DUGAN S [facility]) MEDICARE ADVANTAGE [facility] ([facility]) Sep 21, 2023 [id number] [phone] MARVIN DUGANI S PATIENT HUSKY MEDICAID HUSKY PLAN May 22, 2022 MEDICAI D [id number] GENET DUGAN S PATIENT MEDICARE (WN) MEDICARE (M) PART B May 22, 2022 PART B [id number] GENET DUGAN S PATIENT MEDICARE (WNR) MEDICARE (M) PART A Feb 19, 2009 PART A [id number] [id number] [phone] GENET DUGNA S PATIENT MEDICARE PART D (WNR) MEDICARE (M) PART D Jul 22, 2022 PART D [id number] [id number] GENET DUGAN PATIENT [facility] (WNR) MEDICARE ADVANTAGE [facility] (WNR) Sep 21, 2022 [id number] [phone] GENET DUGAN PATIENT [facility] MCR (WNR) MEDICARE [facility] (WNR) Sep 21, 2022 [id number] GENET DUGAN PATIENT Selected Encounter This section includes the information on record at [place] for the Encounter. Date/Time Encounter Type Encounter Description Reason Provider Source Sep 18, 2023 11:00 AM OFFICE O/P EST LOW 20-29 MIN PRIMARY CARE/MEDICINE ICD-10-CM I10 Essential (primary) hypertension GAVIOTA VERDUZCO [place] Encounter Template Text not used by [place] Assessments - Encounter Diagnoses This section includes the primary and secondary diagnoses documented for the Encounter. Date/Time Primary/Secondary Diagnosis Diagnosis Name Provider Source Sep 30, 2023 04:42 PM PRIMARY Essential (primary) hypertension HAYLEY VERDUZCO [place] Sep 30, 2023 04:42 PM SECONDARY Encounter for immunization CAROLA GARCIA [place] Sep 30, 2023 04:42 PM SECONDARY Generalized anxiety disorder HAYLEY VERDUZCO [place] Plan of Treatment: Future Appointments (+ 6 months) and Future Tests (+/- 45 days) The Plan of Treatment section includes future care activities for the patient from all [place] treatmentfacilities. This section includes future appointments and future orders which are active, pending or scheduled. Future Appointments This section includes appointments that were scheduled to occur 6 months from the date of the Encounter, up to a maximum of 20 appointments. The data comes from all [place] treatment facilities. Appointment Date/Time Appointment Type Appointme nt Facility Name Dec 22, 2023 10:00 AM AMBULATORY - [place]ICINE [place] [facility] Dec 31, 2023 09:00 AM AMBULATORY - [place]ICINE [place] [facility] Dec 31, 2023 10:30 AM AMBULATORY - MEDICINE [place] [facility] January 22, 2024 02:30 PM AMBULATORY - MEDICINE [place] [facility] Feb 26, 2024 01:00 PM AMBULATORY - MEDICINE [facility] Feb 26, 2024 01:15 PM [facility] Mar 10, 2024 09:00 AM AMBULATORY - NONE [place] [facility] Mar 18, 2024 09:30 AM AM[place]ULATORY [place] [facility] Lab Results: +/- 30 days of the [...] Range Comment Oct 06, 2023 12:48 PM [place] [facility] PSA Specimen Type: SERUM No comment entered. Ordering Provider: HAYLEY VERDUZCO Report Released Date/Time: Oct 06, 2023 12:38 PM Reporting Lab: [facility] [address] [facility] [address] Performing Lab: [facility] [address] [facility] [address] [address] PSA 21.53 ng/mL H 0.00-4.00 Sep 18, 2023 12:07 PM [facility] FOLATE Specimen Type: SERUM No comment entered. Ordering Provider: HAYLEY VERDUZCO Report Released Date/Time: Sep 18, 2023 11:50 AM Reporting Lab: [facility] [address] [facility] [address] Performing Lab: [facility] [address] [facility] [address] FOLATE 3.83 ng/mL L >5.2 Immunizations: All administered on the encounter date This section contains immunizations associated to the Encounter. Immunization Series Date Issued Reaction Comments COVID-19 (MODERNA), MRNA, LN P-S, PF, 50 MCG/0.5 ML (AGES 12+ YEARS) Sep 18, 2023 HEP A, ADULT 1 Sep 18, 2023 Social History: Smoking Status (Most current) and Tobacco Use (All prior to encounter date) This section includes the most current, and the historical, smoking and tobacco- related health factors from the [place] facility where the Encounter took place. Current Smoking Status This section includes the most current smoking, or tobacco-related health factor, from the [place] facility where the Encounter took place. Date/Time Current Smoking Status Comment Ray ity Jun 23, 2023 09:00 AM VA-TOBACCO QUIT 15 YRS OR MORE [place] Tobacco Use History This section includes a history of the smoking, or tobacco-related health factors, that were collected on or before the date of the Encounter. The data comes from the [facility] where the Encounter took place. Date/Time Smoking Status/Tobacco Use Comment F acility Jun 23, 2023 09:00 AM VA-TOBACCO QUIT 15 YRS OR MORE [facility] May 01, 2022 01:30 PM VA-TOBACCO FORMER USER [place] May 01, 2022 01:30 PM VA-TOBACCO QUIT 15 YRS OR MORE [place] Apr 15, 2021 03:00 PM VA-TOBACCO FORMER USER [place] Apr 15, 2021 03:00 PM VA-TOBACCO QUIT 15 YRS OR MORE [place] Oct 20, 2018 12:53 PM VA-TOBACCO FORMER USER [place] Oct 20, 2018 12:53 PM VA-TOBACCO QUIT 15 YRS OR MORE [place] Jul 03, 2017 10:33 AM QUIT TOBACCO USE > 7 YEARS AGO quit 25yrs ago [place] February 13, 2016 08:46 AM LIFETIME NON-TOBACCO USER [place] Advance Directives: All historical and current Section Date Range: From patient's date of to the date document was created. This section includes ALL of a patient's completed or amended [place] Advance and Rescinded Directives. The entries below indicate that a directive exists for the patient, but an actual copy is not included with this document. The data comes from all [facility]. Date Advance Directives Provider Source Apr 04, 2024 [facility] Radiology Reports: +/- 30 days of [...] the Encounter. The data comes from all [place] treatment facilities. Date/Time Radiology Report Provider Source Oct 14, 2023 02:[address] ABDOMEN /PELVIS W/WO CONTRAST: JAKE DUGAN [id number] -[id number] M Exm Date: OCT 14, 2023@14:00 Req Phys: NOLAN VERDUZCO Pat Loc: [facility]/OUTSIDE IMAGING NON-CNT (R Img Loc: OUTSIDE GENERAL RADIOLOGY Service: Unknown (Case 95 COMPLETE) OUTSIDE CT ABDOMEN/PELVIS W/WO CO(RAD Detailed) CPT:94879 Reason for Study: outside images have been uploaded for continuity of care Clinical History: outside images have been uploaded for continuity of care Report Status: Electronically Filed Date Reported: OCT 14, 2023 Report: THIS EXAM WAS PERFORMED AND INTERPRETED AT AN OUTSIDE HOSPITAL Impression: THIS EXAM WAS PERFORMED AND INTERPRETED AT AN OUTSIDE HOSPITAL Primary Diagnostic Code: VERIFIED BY: / *ELECTRONICALLY FILED* [place] [facility] Encounter Notes: All associated encounter notes This section contains the clinical notes associated to the Encounter. Date/Time Encounter Note(s) Provider Source Sep 18, 2023 11:43 AM PHYSICIAN NOTE: LOCAL TITLE: MD NOTE STANDARD TITLE: PHYSICIAN NOTE DATE OF NOTE: SEP 18, 2023@11:43 ENTRY DATE: SEP 18, 2023@11:44:01 AUTHOR: NOLAN VERDUZCO EXP COSIGNER: URGENCY: STATUS: COMPLETED CC: 78 year old DECLINED TO ANSWER MALE SERVICE CONNECTED % - 50 HPI: Patient presents for follow-up. The patient was seen 2 months ago. On the interim he is completely change his lifestyle and taking supplements for which he is convinced is improving his overall health. He has no complaints. We did discussed the recent laboratory findings (see below). Problem list and medications reviewed. Last Labs: Jun 2023 Active problems - Computerized Problem List is the source for the followin. Carcinoma in situ of prostate followed by [facility] 2. Olecranon bursitis 3. Loss of teeth - acquired vet needs dentures/ recurrent gum/dental infections/ empric abx Apr 2022 4. History of partial adherence to treatment Sep 2020 - noted lapses in lisinopril refills 5. Paraesthesia of lower extremity (SNOMED CT 366131113) previously on gabapentin recently with objective signs of dminished circulation to LEFT foot only initial screen for metabolic/nutritional causes of neuropathy unrevealing No show to neurology NCS, Summer 2020 No show to Vascular consult, Summer 2020 6. status post appendectomy 7. Diverticular disease normal colonoscopy August, 8. Osteoarthritis (SNOMED CT [id number]) C/S worst at C6-C7 09/06 mod OA Interphalamgeal joint right thumb 09/06 9. Generalized anxiety disorder 10. Epilepsy [facility] [address] [facility], CELINA Link OV 12-05-15 11. Essential hypertension [place] [id number], CELINA Link OV 12-05-15 12. Atypical chest pain [place] [id number] 2511, CELINA Link OV 12-05-15 02/13/16 EKG NSR 12/30/17 EKG NSR PHYSICAL EXAMINATION/DIRECTED EXAM: BP:144/75 (09/18/2023 11:38) Resp:22 (09/18/2023 11:38) Temp:97.3 F [36.3 C] (09/18/2023 11:38) Pulse:70 (09/18/2023 11:38) WEIGHT 09/18/2023 11:38 185(83.91)[27] Comfortable S1S2 RRR lungs CTA Benign abdomen No edema ASSESSMENT & PLAN: 78 year old MALE SERVICE CONNECTED % - 50 [place] presents for 2-month follow-up with dramatic improvement both on his subjective mental and physical health. He reports having more energy and being more active and he ascribes this to recent changes in his supplements. He continues to be pill averse (regular medications). Persistent folate deficiency agreeable for supplements Hypertension at near goal; continues to decline medical treatment. Reviewed access to care. Otherwise we can see him again in 6 months. Chronic issues reviewed briefly; no changes to management unless specified above. RTC TIME ATTESTATION: Time spent directly with the patient was ( x ) 30 minutes More than 50% of the time spent with the patient included counselling regarding the admission Medical Review, History and Physical Examination, discussion of the findings, both remote and local data in the medical record, management, and patient education for the annotated medical conditions above. Discussed with patient and agrees to plan. VA and Non VA meds were reconciled. Today's documentation was made using voice recognition software. This note may contain spelling/grammatical errors secondary to this software. Patient provided copies of labs/studies and medication list. Upcoming Appointments: 09/29/2023 13:45 CWM/SO/MOD BOOSTER 12/23/2023 09:30 CWM/SO/PACT 9 12/31/2023 09:00 CWM/NO/OPTOMETRY 1 AM Med Reconciliation: Active Outpatient Medications (including Supplies): Active Outpatient Medications Status ======= 1) AMMONIUM LACTATE 12% LOTION APPLY SMALL AMOUNT ACTIVE TOPICALLY ONCE DAILY FOR DRY IRRITATED SKIN 2) ASPIRIN 81MG EC TAB TAKE ONE TABLET BY MOUTH ONCE ACTIVE DAILY TO PREVENT STROKE/HEART ATTACK 3) CARBOXYMETHYLCELLULOSE NA 0.5% OPH SOLN INSTILL 1 ACTIVE DROP INTO EACH EYE FOUR TIMES DAILY NEEDED FOR DRY EYE 4) FOLIC ACID 1MG TAB TAKE ONE TABLET BY MOUTH ONCE ACTIVE DAILY FOR INADEQUATE FOLIC ACID VITAMIN/NUTRITION SUPPLEMENT 5) KETOTIFEN 0.025% OPH SOLN INSTILL 1 DROP INTO EACH ACTIVE EYE TWICE DAILY (IF YOU WEAR CONTACT LENSES, WAIT 10 MINUTES BEFORE INSERTING LENSES) 6) LIFITEGRAST 5% OPH SOLN 0.2ML INSTILL 1 DROP INTO ACTIVE EACH EYE TWICE DAILY Active Non-VA Medications Status ======= 1) Non-VA FLUTICASONE PROP 50MCG 120D NASAL INHL 1 SPRAY ACTIVE INTO EACH NOSTRIL TWICE DAILY 7 Total Medications Medication (Local) Status No local medications found. Medication (Remote) Status No remote medications found. /mariana/ NOLAN VERDUZCO MD PHYSICIAN Signed: 09/30/2023 16:43 NOLAN VERDUZCO [place] Sep 18, 2023 11:39 AM PREVENTIVE MEDICIN E NURSING NOTE: LOCAL TITLE: CLINICAL REMINDERS/NURSING STANDARD TITLE: PREVENTIVE MEDICINE NURSING NOTE DATE OF NOTE: SEP 18, 2023@11:39 ENTRY DATE: SEP 18, 2023@11:39:16 AUTHOR: EM GARCIA EXP COSIGNER: URGENCY: STATUS: COMPLETED HTN Assess for Elevated BP>=140/90: The patient was counseled on the importance of regular exercise and/or physical activity in the control of blood pressure. Home Telehealth (CCHT) Referral: Patient declines participation in C[facility]T Program at this time. is leaving to [place] Hepatitis A Vaccine for High Risk: Administered: HEP A, ADULT Date Administered: Sep 18, 2023 11:00 Series: Series 1 Nutrition Aides Teacher: [employer] Lot: [id number] Exp Date: Aug 25, [address] [facility]: [phone] Admin Route/Site: INTRAMUSCULAR/RIGHT DELTOID Dosage: 1mL Vaccine Information Statement(s): HEPATITIS A VACCINE VIS Jul 05, 2021 (MALAGASY) Order By: Policy Administered By: Em Garcia Override Reason: agreed to get this visit Combination Hepatitis A / Hepatitis B vaccine (3 dose series) COVID-19 Immunization: Moderna Monovalent (Spikevax) Administered: COVID-19 (MODERNA), MRNA, LNP-S, PF, 50 MCG/0.5 ML (AGES 12+ YEARS) Date Administered: Sep 18, 2023 11:00 Series: Booster Nutrition Aides Teacher: MODERNA [employer] Lot: [id number] Exp Date: February 18, [address] [facility]: [phone] Admin Route/Site: INTRAMUSCULAR/LEFT DELTOID Dosage: .5mL Vaccine Information Statement(s): COVID-19 MRNA VACCINE (12+ YRS) VACCINE VIS Jul 09, 2023 (MALAGASY) Order By: Policy Administered By: Em Garcia Override Reason: leavin to [place] and agreed to get today Vaccine administered without complications. The patient was advised to remain in the facility for 15 minutes post vaccination. /mariana/ EM GARCIA LPN LPN Signed: 09/18/2023 11:47 EM GARCIA [place]
--- OUTSIDE RECORDS SUMMARY | 2024-08-30 18:28 | XMS_ITS | Encounter Summary ---
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 Address [address] [place] [address] Care Team Providers Care Biophysics Professor Name Role Phone NOLAN VERDUZCO Primary Care [...] Segal's Name Patient's Relationship to Policy Segal [facility] ([facility]) MEDICARE ADVANTAGE [place] IN[place] IDUAL - [place] Sep 21, 2023 [id number] [phone] MARVIN [facility]UGANI S [facility] ([facility]) Sep 21, 2023 [id number] [phone] DUGAN,GENET S PATIENT HUSKY MEDICAID HUSKY PLAN May 22, 2022 MEDICAI D [id number] DUGAN,GENET S PATIENT MEDICARE (WN) MEDICARE (M) PART B May 22, 2022 PART B [id number] DUGAN,GENET S PATIENT MEDICARE (WNR) MEDICARE (M) PART A Feb 19, 2009 PART A [id number] [phone] DUGAN,GENET S PATIENT MEDICARE PART D (WNR) MEDICARE (M) PART D Jul 22, 2022 PART D [id number] GENET DUGAN S PATIENT [facility] (WNR) MEDICARE ADVANTAGE [facility] (WNR) Sep 21, 2022 [id number] GENET DUGAN S PATIENT [facility] (WNR) MEDICARE ADVANTAGE [facility] (WNR) Sep 21, 2022 [id number] [phone] GENET DUGAN PATIENT Selected Encounter This section includes the information on record at [place] for the Encounter. Date/Time Encounter Type Encounter Description Reason Pro vider Source Oct 08, 2023 02:07 PM Outpatient Encounter ADMIN PAT ACTIVTIES (MASNONCT) IHE Encounter Template Text not used by [place] Plan of Treatment: Future Appointments (+ 6 months) and Future Tests (+/- 45 days) The Plan of Treatment section includes future care activities for the patient from all [place] treatmentfacilities. This section includes future appointments and future orders which are active, pending or scheduled. Future Appointments This section includes appointments that were scheduled to occur 6 months from the date of the Encounter, up to a maximum of 20 appointments. The data comes from all [place] treatment facilities. Appointment Date/Time Appointment Type Appointme nt Facility Name Dec 22, 2023 10:00 AM AMBULATORY - MEDICINE [place] [facility] [place] [facility] Dec 31, 2023 09:00 AM AMBULATORY - MEDICINE [place] [facility] [place] [facility] Dec 31, 2023 10:30 AM AMBULATORY - MEDICINE [place] [facility] [place] [facility] January 22, 2024 02:30 PM AMBULATORY - MEDICINE [place] [facility] [place] [facility] Feb 26, 2024 01:00 PM [facility]BUL[facility]ORY - [place]ICINE [place] Feb 26, 2024 01:15 PM AMBULATORY - MEDICINE [place] Mar 10, 2024 09:00 AM AMBULATORY - NONE [place] [facility] [place] [facility] Mar 18, 2024 09:30 AM AMBULATORY - MEDICINE [place] [facility] [place] [place] [facility] Mar 21, 2024 09:30 AM AMBULATORY - MEDICINE [place] [facility] [place] [facility] Apr 07, 2024 08:30 AM AMBULATORY - MEDICINE [place] [facility] Lab Results: +/- 30 days of the encounter This section includes the Chemistry and Hematology Lab Results on record with [place] for the patient. Radiology Reports and Pathology Reports are provided separately, in subsequent sections. Lab Results This section contains the Chemistry/Hematology Results that were resulted 30 days before or 30 daysafter the date of the Encounter. Date/Time Source Result Type Result - Unit Interpretation Reference Range Comment Oct 06, 2023 12:48 PM [facility] PSA Specimen Type: SERUM No comment entered. Ordering Provider: HAYLEY VERDUZCO Report Released Date/Time: Oct 06, 2023 12:38 PM Reporting Lab: [facility] [address] [facility] [address] Performing Lab: [facility] [address] [facility] [address] PSA 21.53 ng/mL H 0.00-4.00 Sep 18, 2023 12:07 PM [facility] FOLATE Specimen Type: SERUM No comment entered. Ordering Provider: HAYLEY VERDUZCO Report Released Date/Time: Sep 18, 2023 11:50 AM Reporting Lab: [facility] [address] [facility] [address] Performing Lab: [facility] [address] [facility] [address] FOLATE 3.83 ng/mL L >5.2 Advance Directives: All historical and current Section Date Range: From patient's date of to the date document was created. This section includes ALL of a patient's completed or amended [place] Advance and Rescinded Directives. The entries below indicate that a directive exists for the patient, but an actual copy is not included with this document. The data comes from all [place] facilities. Date Advance Directives Provider Source Apr 04, 2024 ADVANCE DIRECTIVE CH[facility]CITO [facility] [place] Radiology Reports: +/- 30 days of the [...] the Encounter. The data comes from all [place] treatment facilities. Date/Time Radiology Report Provider Source Oct 14, 2023 02:[address] ABDOMEN /PELVIS W/WO CONTRAST: JAKE DUGAN [id number] -[id number] M Exm Date: OCT 14, 2023@14:00 Req Phys: LUBA,NOLAN Pat Loc: [facility]/OUTSIDE IMAGING NON-CNT (R Img Loc: OUTSIDE GENERAL RADIOLOGY Service: Unknown (Case [id number] COMPLETE) OUTSIDE CT ABDOMEN/PELVIS W/WO CO(RAD Detailed) CPT:96165 Reason for Study: outside images have been uploaded for continuity of care Clinical History: outside images have been uploaded for continuity of care Report Status: Electronically Filed Date Reported: OCT 14, 2023 Report: THIS EXAM WAS PERFORMED AND INTERPRETED AT AN OUTSIDE HOSPITAL Impression: THIS EXAM WAS PERFORMED AND INTERPRETED AT AN OUTSIDE HOSPITAL Primary Diagnostic Code: VERIFIED BY: / *ELECTRONICALLY FILED* [place] [facility] Encounter Notes: All associated encounter notes This section contains the clinical notes associated to the Encounter. Date/Time Encounter Note(s) Provider Source Oct 08, 2023 02:07 PM ADMINISTRATIVE NOTE: LOCAL TITLE: [facility]: SCHEDULING ADMINISTRATION STANDARD TITLE: ADMINISTRATIVE NOTE DATE OF NOTE: OCT 08, 2023@14:07 ENTRY DATE: OCT 08, 2023@14:07:57 AUTHOR: ABELARDO VARGHESE COSIGNER: URGENCY: STATUS: COMPLETED Patient is requesting a call back from PACT Team to discuss their lab results. Patient can be reached back at [phone]. /mariana/ ABELARDO DANIELN1 [facility] AMSA Signed: 10/08/2023 14:08 Receipt Acknowledged By: 10/08/2023 14:49 /es/ ISABEL FREDERICK LPN LPN 10/08/2023 14:40 /mariana/ WAGNER MOORE,RN-BC REGISTERED NURSE (RN) ABELARDO VARGHESE [facility]
--- OUTSIDE RECORDS SUMMARY | 2024-08-30 18:29 | XMS_ITS ---
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 Organization [place] Address [address] [place] [address] Care Team Providers Care Fruit Checker Name Role Phone NOLAN VERDUZCO Primary Care [...] Name Patient's Relationship to Policy Segal [facility] ([facility]) MEDICARE ADVANTAGE [place] INDIV [place]UAL - [place] Sep 21, 2023 [id number] [phone] MARVIN DUGANI S PATIENT [facility] ([facility]) MEDICARE ADVANTAGE [facility] ([facility]) Sep 21, 2023 [id number] [phone] DUGANMARVINI S PATIENT [place] MEDICAID HUSKY PLAN May 22, 2022 MEDICAI D [id number] MARVIN DUGANI S PATIENT MEDICARE ([facility]) MEDICARE () PART B May 22, 2022 PART B [id number] DUGANMARVINI S PATIENT MEDICARE ([facility]) MEDICARE (M) PART A Feb 19, 2009 PART A [id number] DUGAN,GENET S PATIENT MEDICARE PART D (WNR) MEDICARE (M) PART D Jul 22, 2022 PART D [id number] [phone] GENET DUGAN S PATIENT [facility] (WNR) MEDICARE ADVANTAGE [facility] (WNR) Sep 21, 2022 [id number] GENET DUGAN PATIENT [facility] (WNR) MEDICARE ADVANTAGE MCR (WNR) Sep 21, 2022 [id number] [phone] GENET DUGAN PATIENT Selected Encounter This section includes the information on record at [place] for the Encounter. Date/Time Encounter Type Encounter Description Reason Pro vider Source Oct 06, 2023 12:00 PM Outpatient Encounter COMMUNITY CARE CONSULT IHE Encounter Template Text not used by [place] Plan of Treatment: Future Appointments (+ 6 months) and Future Tests (+/- 45 days) The Plan of Treatment section includes future care activities for the patient from all [place] treatmentfacilities. This section includes future appointments and future orders which are active, pending or scheduled. Future Appointments This section includes appointments that were scheduled to occur 6 months from the date of the Encounter, up to a maximum of 20 appointments. The data comes from all [place] treatment facilities. Appointment Date/Time Appointment Type Appointme nt Facility Name Dec 22, 2023 10:00 AM AMBULATORY - MEDICINE [place] [facility] Dec 31, 2023 09:00 AM AMBULATORY - MEDICINE [place] [place] [facility] Dec 31, 2023 10:30 AM AMBULATORY - MEDICINE [place] [place] [facility] January 22, 2024 02:30 PM AMBULATORY - MEDICINE [place] [place] [facility] Feb 26, 2024 01:00 PM AMBULATORY - MEDICINE [place] Feb 26, 2024 01:15 PM AMBULATORY - MEDICINE [place] Mar 10, 2024 09:00 AM AMBULATORY - NONE [place] [facility] [place] [facility] Mar 18, 2024 09:30 AM AMBULATORY - MEDICINE [place] [place] [facility] Mar 21, 2024 09:30 AM AMBULATORY - MEDICINE [place] [place] [facility] Lab Results: +/- 30 days of the encounter This section includes the Chemistry and Hematology Lab Results on record with [place] for the patient. Radiology Reports and Pathology Reports are provided separately, in subsequent sections. Lab Results This section contains the Chemistry/Hematology Results that were resulted 30 days before or 30 daysafter the date of the Encounter. Date/Time Source Result Type Result - Unit Interpretation Reference Range Comment Oct 06, 2023 12:48 PM [facility] PSA Specimen Type: SERUM No comment entered. Ordering Provider: HAYLEY VERDUZCO Report Released Date/Time: Oct 06, 2023 12:38 PM Reporting Lab: [facility] [address] [facility] [address] Performing Lab: [facility] [address] [facility] [address] PSA 21.53 ng/mL H 0.00-4.00 Sep 18, 2023 12:07 PM [facility] FOLATE Specimen Type: SERUM No comment entered. Ordering Provider: HAYLEY VERDUZCO Report Released Date/Time: Sep 18, 2023 11:50 AM Reporting Lab: [facility]ITALN [facility]ITAL[facility] [address] [facility] [address] Performing Lab: [facility]ITAL[facility] [address] [facility] [address] FOLATE 3.83 ng/mL L >5.2 Advance Directives: All historical and current Section Date Range: From patient's date of to the date document was created. This section includes ALL of a patient's completed or amended [place] Advance and Rescinded Directives. The entries below indicate that a directive exists for the patient, but an actual copy is not included with this document. The data comes from all [place] facilities. Date Advance Directives Provider Source Apr 04, 2024 [facility]ANCE [facility] Radiology Reports: +/- 30 days of the [...] the Encounter. The data comes from all [place] treatment facilities. Date/Time Radiology Report Provider Source Oct 14, 2023 02:[address] ABDOMEN /PELVIS W/WO CONTRAST: JAKE DUGAN [id number] M Exm Date: OCT 14, 2023@14:00 Req Phys: LUBA,NOLAN Pat Loc: [facility]/OUTSIDE IMAGING NON-CNT (R Img Loc: OUTSIDE GENERAL RADIOLOGY Service: Unknown (Case 95 COMPLETE) OUTSIDE CT ABDOMEN/PELVIS W/WO CO(RAD Detailed) CPT:81354 Reason for Study: outside images have been uploaded for continuity of care Clinical History: outside images have been uploaded for continuity of care Report Status: Electronically Filed Date Reported: OCT 14, 2023 Report: THIS EXAM WAS PERFORMED AND INTERPRETED AT AN OUTSIDE HOSPITAL Impression: THIS EXAM WAS PERFORMED AND INTERPRETED AT AN OUTSIDE HOSPITAL Primary Diagnostic Code: VERIFIED BY: / *ELECTRONICALLY FILED* [facility] Encounter Notes: All associated encounter notes This section contains the clinical notes associated to the Encounter. Date/Time Encounter Note(s) Provider Source Oct 06, 2023 12:00 PM NONVA CONSULT: LOCAL TITLE: COMMUNITY CARE-CONSULT RESULT NOTE STANDARD TITLE: NONVA CONSULT DATE OF NOTE: OCT 06, 2023@12:00 ENTRY DATE: OCT 20, 2023@07:13:24 AUTHOR: SUNITA FITCH EXP COSIGNER: URGENCY: STATUS: COMPLETED VistA Imaging - Scanned Document SCANNED DOCUMENT SIGNATURE NOT REQUIRED Electronically Filed: 10/20/2023 by: SUNITA MCDONOUGH [facility]
--- OUTSIDE RECORDS SUMMARY | 2024-08-30 18:30 | XMS_ITS ---
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 Address [address] [place] [address] Care Team Providers Care Radio Machinist Name Role Phone NOLAN VERDUZCO Primary Care [...] Segal's Name Patient's Relationship to Policy Segal [facility] ([facility]) MEDICARE ADVANTAGE [place] IN[place] - [place] Sep 21, 2023 [id number] [phone] MARVIN DUGANI S [facility] MEDICARE ADVANTAGE [facility] ([facility]) Sep 21, 2023 [id number] [phone] DUGANMARVINI S PATIENT [place] MEDICAID HUSKY PLAN May 22, 2022 MEDICAI D [id number] MARVIN DUGANI S PATIENT MEDICARE ([facility]) MEDICARE () PART B May 22, 2022 PART B [id number] DUGANMARVINI S PATIENT MEDICARE ([facility]) MEDICARE (M) PART A Feb 19, 2009 PART A [id number] [id number] [phone] DUGAN,GENET S PATIENT MEDICARE PART D (WNR) MEDICARE (M) PART D Jul 22, 2022 PART D [id number] GENET DUGAN S PATIENT [facility] (WNR) MEDICARE ADVANTAGE [facility] (WNR) Sep 21, 2022 [id number] GENET DUGAN PATIENT [facility] (WNR) MEDICARE ADVANTAGE MCR (WNR) Sep 21, 2022 [id number] [phone] GENET DUGAN PATIENT Selected Encounter This section includes the information on record at [place] for the Encounter. Date/Time Encounter Type Encounter Description Reason Pro vider Source Oct 06, 2023 12:00 AM Outpatient Encounter COMMUNITY CARE CONSULT IHE Encounter Template Text not used by [place] Plan of Treatment: Future Appointments (+ 6 months) and Future Tests (+/- 45 days) The Plan of Treatment section includes future care activities for the patient from all [place] treatmentfacilities. This section includes future appointments and future orders which are active, pending or scheduled. Future Appointments This section includes appointments that were scheduled to occur 6 months from the date of the Encounter, up to a maximum of 20 appointments. The data comes from all [place] treatment facilities. Appointment Date/Time Appointment Type Appointme nt Facility Name Dec 22, 2023 10:00 AM AMBULATORY - MEDICINE [place] [facility] Dec 31, 2023 09:00 AM AMBULATORY - MEDICINE [place] [facility] Dec 31, 2023 10:30 AM AMBULATORY - MEDICINE [place] [facility] January 22, 2024 02:30 PM AMBULATORY - MEDICINE [place] [facility] Feb 26, 2024 01:00 PM AMBULATORY - [place]ICINE [place] Feb 26, 2024 01:15 PM AMBULATORY - MEDICINE [place] Mar 10, 2024 09:00 AM AMBULATORY - NONE [place] [place] [facility] Mar 18, 2024 09:30 AM AMBULATORY - MEDICINE [place] [facility] Mar 21, 2024 09:30 AM AMBULATORY - MEDICINE [place] [facility] Lab Results: +/- 30 days of the encounter This section includes the Chemistry and Hematology Lab Results on record with [place] for the patient. Radiology Reports and Pathology Reports are provided separately, in subsequent sections. Lab Results This section contains the Chemistry/Hematology Results that were resulted 30 days before or 30 daysafter the date of the Encounter. Date/Time Source Result Type Result - Unit Interpretation Reference Range Comment Oct 06, 2023 12:48 PM [facility] PSA Specimen Type: SERUM No comment entered. Ordering Provider: HAYLEY VERDUZCO Report Released Date/Time: Oct 06, 2023 12:38 PM Reporting Lab: [facility]ITALTRN [facility] [address] [facility] [address] Performing Lab: [facility] [address] [facility] [address] PSA 21.53 ng/mL H 0.00-4.00 Sep 18, 2023 12:07 PM [facility]ITALRNOR[facility]ENTERN [facility]ITAL[facility] FOLATE Specimen Type: SERUM No comment entered. Ordering Provider: HAYLEY VERDUZCO Report Released Date/Time: Sep 18, 2023 11:50 AM Reporting Lab: [facility] OT[facility]OSPITALRNOR[facility] CENTERN [facility]OSPITALUSETS [facility] [address] [facility] [address] Performing Lab: [facility]OSPITALUSETS [facility] [address] [facility] [address] FOLATE 3.83 ng/mL L >5.2 Advance Directives: All historical and current Section Date Range: From patient's date of to the date document was created. This section includes ALL of a patient's completed or amended [place] Advance and Rescinded Directives. The entries below indicate that a directive exists for the patient, but an actual copy is not included with this document. The data comes from all [place] facilities. Date Advance Directives Provider Source Apr 04, 2024 AD[facility]ANCE [facility]IVE [facility] Radiology Reports: +/- 30 days of [...] the Encounter. The data comes from all [place] treatment facilities. Date/Time Radiology Report Provider Source Oct 14, 2023 02:[address] ABDOMEN /PELVIS W/WO CONTRAST: JAKE DUGAN [id number] -[id number] M Exm Date: OCT 14, 2023@14:00 Req Phys: LUBA,NOLAN Pat Loc: [facility]/OUTSIDE IMAGING NON-CNT (R Img Loc: OUTSIDE GENERAL RADIOLOGY Service: Unknown (Case 95 COMPLETE) OUTSIDE CT ABDOMEN/PELVIS W/WO CO(RAD Detailed) CPT:79168 Reason for Study: outside images have been uploaded for continuity of care Clinical History: outside images have been uploaded for continuity of care Report Status: Electronically Filed Date Reported: OCT 14, 2023 Report: THIS EXAM WAS PERFORMED AND INTERPRETED AT AN OUTSIDE HOSPITAL Impression: THIS EXAM WAS PERFORMED AND INTERPRETED AT AN OUTSIDE HOSPITAL Primary Diagnostic Code: VERIFIED BY: / *ELECTRONICALLY FILED* [facility] Encounter Notes: All associated encounter notes This section contains the clinical notes associated to the Encounter. Date/Time Encounter Note(s) Provider Source Oct 06, 2023 12:00 AM NONVA CONSULT: LOCAL TITLE: COMMUNITY CARE-CONSULT RESULT NOTE STANDARD TITLE: NONVA CONSULT DATE OF NOTE: OCT 06, 2023 ENTRY DATE: OCT 29, 2023@13:46:46 AUTHOR: SUNITA FITCH EXP COSIGNER: URGENCY: STATUS: COMPLETED VistA Imaging - Scanned Document SCANNED DOCUMENT SIGNATURE NOT REQUIRED Electronically Filed: 10/29/2023 by: SUNITA MCDONOUGH [facility]
--- OUTSIDE RECORDS SUMMARY | 2024-08-30 18:30 | XMS_ITS ---
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 Organization [place] Address [address] [place] [address] Care Team Providers Care Residential Housekeeper Name Role Phone NOLAN VERDUZCO Primary Care [...] Segal's Name Patient's Relationship to Policy Segal [facility] ([facility]) MEDICARE ADVANTAGE [place] INDIV IDUAL - [place] Sep 21, 2023 [id number] [phone] MARVIN DUGANI S [facility]IENT [facility] [place] ([facility]) MEDICARE ADVANTAGE [facility] ([facility]) Sep 21, 2023 [id number] [phone] DUGANMARVINI S PATIENT HUSKY MEDICAID HUSKY PLAN May 22, 2022 MEDICAI D [id number] MARVIN DUGANI S PATIENT MEDICARE ([facility]) MEDICARE () PART B May 22, 2022 PART B [id number] DUGANMARVINI S PATIENT MEDICARE ([facility]) MEDICARE (M) PART A Feb 19, 2009 PART A [id number] DUGAN,GENET S PATIENT MEDICARE PART D (WNR) MEDICARE (M) PART D Jul 22, 2022 PART D [id number] GENET DUGAN S PATIENT [facility] (WNR) MEDICARE ADVANTAGE [facility] (WNR) Sep 21, 2022 [id number] GENET DUGAN S PATIENT [facility] (WNR) MEDICARE [facility] (WNR) Sep 21, 2022 [id number] GENET DUGAN PATIENT Selected Encounter This section includes the information on record at [place] for the Encounter. Date/Time Encounter Type Encounter Description Reason Pro vider Source Oct 14, 2023 12:00 AM Outpatient Encounter COMMUNITY CARE CONSULT IHE Encounter Template Text not used by [place] Plan of Treatment: Future Appointments (+ 6 months) and Future Tests (+/- 45 days) The Plan of Treatment section includes future care activities for the patient from all [place] treatmentfacilities. This section includes future appointments and future orders which are active, pending or scheduled. Future Appointments This section includes appointments that were scheduled to occur 6 months from the date of the Encounter, up to a maximum of 20 appointments. The data comes from all [place] treatment facilities. Appointment Date/Time Appointment Type Appointme nt Facility Name Dec 22, 2023 10:00 AM [facility]ULATORY [facility]IC[facility] [place] [facility] Dec 31, 2023 09:00 AM AM[facility]ULATORY [facility]IC[facility] [place] [facility] Dec 31, 2023 10:30 AM AM[facility]ULATORY - [facility]ICINE [facility] [place] [facility] January 22, 2024 02:30 PM AMBULATORY - MEDICINE [facility] [place] [facility] Feb 26, 2024 01:00 PM [facility]ORY [place] [facility]IC[place] [place] Feb 26, 2024 01:15 PM [facility]BULATORY - MEDICINE [place] Mar 10, 2024 09:00 AM AMBULATORY - NONE [facility] [place] [facility] Mar 18, 2024 09:30 AM AM[facility]ULATORY [facility]IC[facility] [place] [facility] Mar 21, 2024 09:30 AM AMBULATORY - [facility]ICINE [facility] [place] [facility] Apr 07, 2024 08:30 AM AMBULATORY - MEDICINE [facility] [place] [facility] Lab Results: +/- 30 days of the encounter This section includes the Chemistry and Hematology Lab Results on record with [place] for the patient. Radiology Reports and Pathology Reports are provided separately, in subsequent sections. Lab Results This section contains the Chemistry/Hematology Results that were resulted 30 days before or 30 daysafter the date of the Encounter. Date/Time Source Result Type Result - Unit Interpretation Reference Range Comment Oct 06, 2023 12:48 PM [facility] PSA Specimen Type: SERUM No comment entered. Ordering Provider: HAYLEY VERDUZCO Report Released Date/Time: Oct 06, 2023 12:38 PM Reporting Lab: [facility] [address] [facility] [address] Performing Lab: [facility] [address] [facility] [address] PSA 21.53 ng/mL H 0.00-4.00 Sep 18, 2023 12:07 PM [facility] FOLATE Specimen Type: SERUM No comment entered. Ordering Provider: HAYLEY VERDUZCO Report Released Date/Time: Sep 18, 2023 11:50 AM Reporting Lab: [facility] [address] [facility] [address] Performing Lab: [facility] [address] [facility] [address] FOLATE 3.83 ng/mL L >5.2 Advance Directives: All historical and current Section Date Range: From patient's date of to the date document was created. This section includes ALL of a patient's completed or amended VA Advance and Rescinded Directives. The entries below indicate that a directive exists for the patient, but an actual copy is not included with this document. The data comes from all [place] facilities. Date Advance Directives Provider Source Apr 04, 2024 ADVANCE DIRECTIVE CHAPINCITO DEE [facility] Radiology Reports: +/- 30 days of [...] the Encounter. The data comes from all [place] treatment facilities. Date/Time Radiology Report Provider Source Oct 14, 2023 02:[address] ABDOMEN /PELVIS W/WO CONTRAST: JAKE DUGAN [id number] -1945 M Exm Date: OCT 14, 2023@14:00 Req Phys: LUBA,NOLAN Pat Loc: [facility]/OUTSIDE IMAGING NON-CNT (R Img Loc: OUTSIDE GENERAL RADIOLOGY Service: Unknown (Case [id number] COMPLETE) OUTSIDE CT ABDOMEN/PELVIS W/WO CO(RAD Detailed) CPT:40392 Reason for Study: outside images have been uploaded for continuity of care Clinical History: outside images have been uploaded for continuity of care Report Status: Electronically Filed Date Reported: OCT 14, 2023 Report: THIS EXAM WAS PERFORMED AND INTERPRETED AT AN OUTSIDE HOSPITAL Impression: THIS EXAM WAS PERFORMED AND INTERPRETED AT AN OUTSIDE HOSPITAL Primary Diagnostic Code: VERIFIED BY: / *ELECTRONICALLY FILED* [facility] Encounter Notes: All associated encounter notes This section contains the clinical notes associated to the Encounter. Date/Time Encounter Note(s) Provider Source Oct 14, 2023 12:00 AM NONVA CONSULT: LOCAL TITLE: COMMUNITY CARE-CONSULT RESULT NOTE STANDARD TITLE: NONVA CONSULT DATE OF NOTE: OCT 14, 2023 ENTRY DATE: OCT 20, 2023@12:53:34 AUTHOR: PING GUERIN EXP COSIGNER: URGENCY: STATUS: COMPLETED VistA Imaging - Scanned Document SCANNED DOCUMENT SIGNATURE NOT REQUIRED Electronically Filed: 10/20/2023 by: PING SOLER [facility]
--- OUTSIDE RECORDS SUMMARY | 2024-08-30 18:30 | XMS_ITS ---
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 Address [address] [place] [address] Care Team Providers Care Precision Lens Generator Name Role Phone NOLAN VERDUZCO Primary Care [...] Segal's Name Patient's Relationship to Policy Segal [facility] ([facility]) MEDICARE ADVANTAGE [place] INDIV IDUAL - [place] Sep 21, 2023 [id number] [phone] MARVIN DUGANI S [facility]IENT [facility] ([facility]) MEDICARE ADVANTAGE [facility] ([facility]) Sep 21, 2023 [id number] [phone] DUGANMARVINI S PATIENT [place]KY MEDICAID HUSKY PLAN May 22, 2022 MEDICAI D [id number] MARVIN DUGANI S PATIENT MEDICARE ([facility]) MEDICARE () PART B May 22, 2022 PART B [id number] DUGANMARVINI S PATIENT MEDICARE ([facility]) MEDICARE (M) PART A Feb 19, 2009 PART A [id number] DUGAN,GENET S PATIENT MEDICARE PART D (WNR) MEDICARE (M) PART D Jul 22, 2022 PART D [id number] [phone] GENET DUGAN S PATIENT [facility] (WNR) MEDICARE ADVANTAGE [facility] (WNR) Sep 21, 2022 [id number] GENET DUGAN S PATIENT [facility] (WNR) MEDICARE ADVANTAGE [facility] (WNR) Sep 21, 2022 [id number] [phone] GENET DUGAN PATIENT Selected Encounter This section includes the information on record at [place] for the Encounter. Date/Time Encounter Type Encounter Description Reason Pro vider Source Oct 26, 2023 12:00 PM Outpatient Encounter COMMUNITY CARE CONSULT IHE Encounter Template Text not used by [place] Plan of Treatment: Future Appointments (+ 6 months) and Future Tests (+/- 45 days) The Plan of Treatment section includes future care activities for the patient from all [place] treatmentfacilities. This section includes future appointments and future orders which are active, pending or scheduled. Future Appointments This section includes appointments that were scheduled to occur 6 months from the date of the Encounter, up to a maximum of 20 appointments. The data comes from all [place] treatment facilities. Appointment Date/Time Appointment Type Appointme nt Facility Name Dec 22, 2023 10:00 AM [facility]ULATORY [facility]IC[facility] [place] [facility] Dec 31, 2023 09:00 AM AM[facility]ULATORY - [facility]IC[facility] [place] [facility] Dec 31, 2023 10:30 AM AMBULATORY - MEDICINE [facility] [place] [facility] January 22, 2024 02:30 PM AMBULATORY - MEDICINE [facility] [place] [facility] Feb 26, 2024 01:00 PM [facility]ORY - [facility]IC[facility] [place] Feb 26, 2024 01:15 PM AMBULATORY - [facility]ICINE [place] Mar 10, 2024 09:00 AM AMBULATORY - NONE [facility] [place] [facility] Mar 18, 2024 09:30 AM AMBULATORY - MEDICINE [facility] [place] [facility] Mar 21, 2024 09:30 AM AMBULATORY - MEDICINE [facility] [place] [facility] Apr 07, 2024 08:30 AM AMBULATORY - MEDICINE [facility] [place] [facility] Apr 15, 2024 02:30 PM AMBULATORY - MEDICINE [facility] Lab Results: +/- 30 days of the encounter This section includes the Chemistry and Hematology Lab Results on record with [place] for the patient. Radiology Reports and Pathology Reports are provided separately, in subsequent sections. Lab Results This section contains the Chemistry/Hematology Results that were resulted 30 days before or 30 daysafter the date of the Encounter. Date/Time Source Result Type Result - Unit Interpretation Reference Range Comment Oct 06, 2023 12:48 PM [facility] PSA Specimen Type: SERUM No comment entered. Ordering Provider: HAYLEY VERDUZCO Report Released Date/Time: Oct 06, 2023 12:38 PM Reporting Lab: [address] [address] Performing Lab: [address] [address] PSA 21.53 ng/mL H 0.00-4.00 Advance Directives: All historical and current Section Date Range: From patient's date of to the date document was created. This section includes ALL of a patient's completed or amended [place] Advance and Rescinded Directives. The entries below indicate that a directive exists for the patient, but an actual copy is not included with this document. The data comes from all [place] facilities. Date Advance Directives Provider Source Apr 04, 2024 ADVANCE DIRECTIVE CHAPINCITO DEE [facility] Radiology Reports: +/- 30 days [...] the Encounter. The data comes from all [place] treatment facilities. Date/Time Radiology Report Provider Source Oct 14, 2023 02:[address] ABDOMEN /PELVIS W/WO CONTRAST: JAKE DUGAN [id number] -1945 M Exm Date: OCT 14, 2023@14:00 Req Phys: NOLAN VERDUZCO Pat Loc: [facility]/OUTSIDE IMAGING NON-CNT (R Img Loc: OUTSIDE GENERAL RADIOLOGY Service: Unknown (Case 95 COMPLETE) OUTSIDE CT ABDOMEN/PELVIS W/WO CO(RAD Detailed) CPT:40378 Reason for Study: outside images have been uploaded for continuity of care Clinical History: outside images have been uploaded for continuity of care Report Status: Electronically Filed Date Reported: OCT 14, 2023 Report: THIS EXAM WAS PERFORMED AND INTERPRETED AT AN OUTSIDE HOSPITAL Impression: THIS EXAM WAS PERFORMED AND INTERPRETED AT AN OUTSIDE HOSPITAL Primary Diagnostic Code: VERIFIED BY: / *ELECTRONICALLY FILED* [facility] Encounter Notes: All associated encounter notes This section contains the clinical notes associated to the Encounter. Date/Time Encounter Note(s) Provider Source Oct 26, 2023 12:00 PM NONVA CONSULT: LOCAL TITLE: COMMUNITY CARE-CONSULT RESULT NOTE STANDARD TITLE: NONVA CONSULT DATE OF NOTE: OCT 26, 2023@12:00 ENTRY DATE: NOV 04, 2023@09:39:20 AUTHOR: ROSEMARY VUONG EXP COSIGNER: URGENCY: STATUS: COMPLETED VistA Imaging - Scanned Document SCANNED DOCUMENT SIGNATURE NOT REQUIRED Electronically Filed: 11/04/2023 by: ROSEMARY SHEETS [facility]
--- OUTSIDE RECORDS SUMMARY | 2024-08-30 18:30 | XMS_ITS ---
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 Address [address] [place] [address] Care Team Providers Care Pay Per Click Strategist Name Role Phone NOLAN VERDUZCO Primary Care [...] Segal's Name Patient's Relationship to Policy Segal [facility] ([facility]) MEDICARE ADVANTAGE [place] INDIV IDUAL - [place] Sep 21, 2023 [id number] [phone] MARVIN DUGANI S [facility] MEDIC[facility] ADVANTAGE [facility] ([facility]) Sep 21, 2023 [id number] [phone] DUGAN,GENET S PATIENT [place] MEDICAID HUSKY PLAN May 22, 2022 MEDICAI D [id number] DUGAN,GENET S PATIENT MEDICARE ([place]) MEDICARE (M) PART B May 22, 2022 PART B [id number] DUGAN,GENET S PATIENT MEDICARE (WNR) MEDICARE (M) PART A Feb 19, 2009 PART A [id number] DUGAN,GENET S PATIENT MEDICARE PART D (WNR) MEDICARE (M) PART D Jul 22, 2022 PART D [id number] GENET DUGAN S PATIENT [facility] (WNR) MEDICARE ADVANTAGE [facility] (WNR) Sep 21, 2022 [id number] GENET DUGAN S PATIENT [facility] (WNR) MEDICARE ADVANTAGE [facility] (WNR) Sep 21, 2022 [id number] GENET DUGAN PATIENT Selected Encounter This section includes the information on record at [place] for the Encounter. Date/Time Encounter Type Encounter Description Reason Pro vider Source Dec 04, 2023 08:28 AM Outpatient Encounter ADMIN PAT ACTIVTIES (MASNONCT) IHE [...] - MEDICINE [place] [facility] [place] [facility] Dec 31, 2023 09:00 AM AMBULATORY - MEDICINE [facility] [place] [facility] Dec 31, 2023 10:30 AM AMBULATORY - MEDICINE [facility] [place] [facility] January 22, 2024 02:30 PM AMBULATORY - MEDICINE [facility] [place] [facility] Feb 26, 2024 01:00 PM AM[facility]ULATORY - [place]ICINE [place] Feb 26, 2024 01:15 PM AMBULATORY - [place]ICINE [place] Mar 10, 2024 09:00 AM AMBULATORY - NONE [facility] [place] [facility] Mar 18, 2024 09:30 AM AMBULATORY - MEDICINE [facility] [place] [facility] Mar 21, 2024 09:30 AM AMBULATORY - MEDICINE [facility] [place] [facility] Apr 07, 2024 08:30 AM AMBULATORY - MEDICINE [facility] [place] [facility] Apr 15, 2024 02:30 PM AMBULATORY - [place]ICINE [facility] [place] [facility] Apr 27, 2024 10:00 AM AMBULATORY - [facility]ICINE [facility] [place] [facility] May 13, 2024 11:00 AM AMBULATORY - [facility]ICINE [facility] [place] [facility] May 31, 2024 10:00 AM AMBULATORY - [place]ICINE [facility] [place] [facility] Jun 03, 2024 12:45 PM [facility] Lab Results: +/- 30 days of [...] Result - Unit Interpretation Reference Range Comment Nov 30, 2023 10:39 AM [facility] PSA Specimen Type: SERUM No comment entered. Ordering Provider: HAYLEY VERDUZCO Report Released Date/Time: Nov 30, 2023 10:01 AM Reporting [facility] [address] [facility] [address] Performing Lab: [facility] [address] [address] PSA 35.69 ng/mL H 0.00-4.00 Advance Directives: All historical [...] 04, 2024 [facility] Encounter Notes: All associated encounter notes This section contains the clinical notes associated to the Encounter. Date/Time Encounter Note(s) Provider Source Dec 04, 2023 08:28 AM ADMINISTRATIVE NOT E: LOCAL TITLE: CCC: SCHEDULING ADMINISTRATION STANDARD TITLE: ADMINISTRATIVE NOTE DATE OF NOTE: DEC 04, 2023@08:28:11 ENTRY DATE: DEC 04, 2023@08:28:11 AUTHOR: DANIELE MALDONADO EXP COSIGNER: URGENCY: STATUS: COMPLETED [facility]: SCHEDULING ADMINISTRATION Has ADDENDA Patient Demographics Patient Name: JAKE DUGAN Patient Primary Phone: [phone] Patient Primary Address: [address] [place] [address] Patient : 1945 Patient Age: 78 Caller/Recipient Relation to Patient: Self Administrative Administrative Note Reason: Medication Renewal VA Medications Refill/Renewal Request: is calling to speak with pact team to get a renewal for Lisinopril (T/W did not see on veterans med list) as is completely out of this medication. is stating that his BP is too high but refused to answer any follow up questions, declined speaking with [facility] air tucker and is insisting he get his medication signed off for meat pickler within an hour or he will be showing up to the clinic. T/W did let know that his team has 72 hours to respond to all messages, disconnected call /viky MALDONADO VISN 1 [facility] AMSA Signed: 12/04/2023 08:28 Receipt Acknowledged By: 12/04/2023 12:01 /mariana/ TAMMIE DIAZ LPN LPN for ISABEL FREDERICK 12/04/2023 13:13 /mariana/ WAGNER MOORE,RN-BC REGISTERED NURSE (RN) 12/04/2023 ADDENDUM STATUS: COMPLETED Vet comes into the clinic requesting medication refill for medication noted below. Also requesting lab results. 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 has been notified. /WAGNER Betancourt,RN-BC REGISTERED NURSE (RN) Signed: 12/04/2023 13:19 12/04/2023 ADDENDUM STATUS: COMPLETED SURENDRA form signed by Vet and sent to scan. /viky MCINTYRE Signed: 12/04/2023 14:52 DANIELE MALDONADO [place] [facility]
--- OUTSIDE RECORDS SUMMARY | 2024-08-30 18:30 | XMS_ITS | Encounter Summary ---
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 Organization [place] Address [address] [place] [address] Care Team Providers Care Platform Builder Name Role Phone NOLAN VERDUZCO Primary Care [...] Segal's Name Patient's Relationship to Policy Segal [facility] ([facility]) MEDICARE ADVANTAGE [place] INDIV IDUAL - [place] Sep 21, 2023 [id number] [phone] GENET DUGAN S PATIENT [facility] ([facility]) MEDICARE [facility] ([facility]) Sep 21, 2023 [id number] [phone] GENET DUGAN S PATIENT [place] MEDICAID H[place]KY PLAN May 22, 2022 MEDICAI D [id number] GENET DUGAN S PATIENT MEDICARE ([facility]) MEDICARE () PART B May 22, 2022 PART B [id number] [phone] GENET DUGAN S PATIENT MEDICARE ([facility]) MEDICARE () PART A Feb 19, 2009 PART A [id number] GENET DUGAN S PATIENT MEDICARE PART D ([facility]) MEDICARE () PART D Jul 22, 2022 PART D [id number] [id number] GENET DUGAN S PATIENT [facility] (WNR) MEDICARE ADVANTAGE MCR (WNR) Sep 21, 2022 [id number] GENET DUGAN S PATIENT [facility] MCR (WNR) MEDICARE ADVANTAGE [facility] (WNR) Sep 21, 2022 [id number] GENET DUGAN PATIENT Selected Encounter This section includes the information on record at [place] for the Encounter. Date/Time Encounter Type Encounter Description Reason Pro vider Source [facility] Encounter Template Text not used by [place] Advance Directives: All historical and current Section Date Range: From patient's date of to the date document was created. This section includes ALL of a patient's completed or amended [place] Advance and Rescinded Directives. The entries below indicate that a directive exists for the patient, but an actual copy is not included with this document. The data comes from all [place] facilities. Date Advance Directives Provider Source Apr 04, 2024 [facility]
--- OUTSIDE RECORDS SUMMARY | 2024-08-30 18:31 | XMS_ITS ---
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 Address [address] [place] [address] Care Team Providers Care Dietary Director Name Role Phone NOLAN VERDUZCO Primary Care [...] Segal's Name Patient's Relationship to Policy Segal [facility] ([facility]) MEDICARE ADVANTAGE [place] INDIV IDUAL - [place] Sep 21, 2023 [id number] [phone] MARVIN [facility]UGANI S [facility] MEDIC[facility] ADVANTAGE [facility] ([facility]) Sep 21, 2023 [id number] [phone] DUGANMARVINI S PATIENT [place]KY MEDICAID H[place]KY PLAN May 22, 2022 MEDICAI D [id number] MARVIN DUGANI S PATIENT MEDICARE ([facility]) MEDICARE () PART B May 22, 2022 PART B [id number] DUGANMARVINI S PATIENT MEDICARE ([facility]) MEDICARE (M) PART A Feb 19, 2009 PART A [id number] DUGAN,GENET S PATIENT MEDICARE PART D ([facility]) MEDICARE (M) PART D Jul 22, 2022 PART D [id number] [phone] GENET DUGAN S PATIENT [facility] ([place]) MEDICARE ADVANTAGE [facility] ([facility]) Sep 21, 2022 [id number] GENET DUGAN S PATIENT [facility] ([place]) MEDICARE ADVANTAGE [facility] ([facility]) Sep 21, 2022 [id number] GENET DUGAN PATIENT Selected Encounter This section includes the information on record at [place] for the Encounter. Date/Time Encounter Type Encounter Description Reason Pro vider Source Dec 04, 2023 01:16 PM Outpatient Encounter PRIMARY CARE/MEDICINE IHE Encounter Template Text not used by [place] Plan of Treatment: Future Appointments (+ 6 months) and Future Tests (+/- 45 days) The Plan of Treatment section includes future care activities for the patient from all [place] treatmentfacilities. This section includes future appointments and future orders which are active, pending or scheduled. Future Appointments This section includes appointments that were scheduled to occur 6 months from the date of the Encounter, up to a maximum of 20 appointments. The data comes from all [place] treatment facilities. Appointment Date/Time Appointment Type Appointme nt Facility Name Dec 22, 2023 10:00 AM [facility]UL[facility]ORY [facility] [place] [facility] Dec 31, 2023 09:00 AM [facility] [place] [facility] Dec 31, 2023 10:30 AM [facility]IC[facility] [place] [facility] January 22, 2024 02:30 PM AM[facility]UL[facility]ORY [facility] MEDICINE [facility] [place] [facility] Feb 26, 2024 01:00 PM [facility] [place]IC[place] [place] Feb 26, 2024 01:15 PM [facility]ORY [place]IC[place] Mar 10, 2024 09:00 AM AMBULATORY - NONE [facility] [place] [facility] Mar 18, 2024 09:30 AM [facility]ORY [facility]IC[facility] [place] [facility] Mar 21, 2024 09:30 AM [facility]ORY [facility]IC[facility] [place] [facility] Apr 07, 2024 08:30 AM [facility]ULATORY [facility]ICINE [facility] [place] [facility] Apr 15, 2024 02:30 PM [place] [facility] [place] [facility] Apr 27, 2024 10:00 AM [place]ORY [place] [facility] [place] [facility] May 13, 2024 11:00 AM [place]ORY [place] [facility] [place] [facility] May 31, 2024 10:00 AM [place] [facility] [place] [facility] Jun 03, 2024 12:45 PM [place]ORY [place] [facility] [place] [facility] Lab Results: +/- 30 days of the encounter This section includes the Chemistry and Hematology Lab Results on record with [place] for the patient. Radiology Reports and Pathology Reports are provided separately, in subsequent sections. Lab Results This section contains the Chemistry/Hematology Results that were resulted 30 days before or 30 daysafter the date of the Encounter. Date/Time Source Result Type Result - Unit Interpretation Reference Range Comment Nov 30, 2023 10:39 AM [facility] PSA Specimen Type: SERUM No comment entered. Ordering Provider: HAYLEY VERDUZCO Report Released Date/Time: Nov 30, 2023 10:01 AM Reporting Lab: [facility] [address] [facility] [address] Performing Lab: [facility] [address] PSA 35.69 ng/mL H 0.00-4.00 Advance Directives: [...] this document. The data comes from all [place] facilities. Date Advance Directives Provider Source Apr 04, 2024 [facility] Encounter Notes: All associated encounter notes This section contains the clinical notes associated to the Encounter. Date/Time Encounter Note(s) Provider Source Dec 04, 2023 01:16 PM MEDICATION MGT NOT E: LOCAL TITLE: OUTPATIENT MEDICATION REQUEST STANDARD TITLE: MEDICATION MGT NOTE DATE OF NOTE: DEC 04, 2023@13:16 ENTRY DATE: DEC 04, 2023@13:16:35 AUTHOR: JELANI BRANDON EXP COSIGNER: URGENCY: STATUS: COMPLETED Mail KETOTIFEN SOLN,OPH 0.025% INSTILL 1 DROP INTO EACH EYE TWICE DAILY (IF YOU WEAR CONTACT LENSES, WAIT 10 MINUTES BEFORE INSERTING LENSES) /mariana/ WAGNER MOORE,RN-BC REGISTERED NURSE (RN) Signed: 12/04/2023 13:17 Receipt Acknowledged By: 12/04/2023 13:39 /mariana/ CAROL HOLLOWAY, BASILIO Machine Inspector JELANI BRANDON ORANGE
--- OUTSIDE RECORDS SUMMARY | 2024-08-30 18:31 | XMS_ITS | Encounter Summary ---
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 Organization [place] Address [address] [place] [address] Care Team Providers Care Door To Door Fundraising Collector Name Role Phone NOLAN VERDUZCO Primary Care [...] Segal's Name Patient's Relationship to Policy Segal [facility] ([facility]) MEDICARE ADVANTAGE [place] INDIV IDUAL - [place] Sep 21, 2023 [id number] [phone] GENET DUGAN S [facility]ICARE [facility] ([facility]) Sep 21, 2023 [id number] [phone] GENET DUGAN S PATIENT [place] MEDICAID [place] PLAN May 22, 2022 MEDICAI D [id number] GENET DUGAN S PATIENT MEDICARE ([facility]) MEDICARE () PART B May 22, 2022 PART B [id number] GENET DUGAN S PATIENT MEDICARE ([facility]) MEDICARE () PART A Feb 19, 2009 PART A [id number] GENET DUGAN S PATIENT MEDICARE PART D ([place]) MEDICARE ([place]) PART D Jul 22, 2022 PART D [id number] [phone] MARVIN DUGANI S PATIENT [facility] ([place]) MEDICARE ADVANTAGE [facility] ([place]) Sep 21, 2022 [id number] MARVIN DUGANI S PATIENT [facility] ([place]) MEDICARE ADVANTAGE [facility] ([place]) Sep 21, 2022 [id number] [phone] GENET DUGAN S PATIENT Selected Encounter This section includes the information on record at [place] for the Encounter. Date/Time Encounter Type Encounter Description Reason Provider Source Dec 22, 2023 10:00 AM OFFICE O/P EST MOD 30 MIN PRIMARY CARE/MEDICINE ICD-10-CM R97.20 Elevated prostate specific antigen [PSA] HAYLEY VERDUZCO [place] Encounter Template Text not used by [place] Assessments - Encounter Diagnoses This section includes the primary and secondary diagnoses documented for the Encounter. Date/Time Primary/Secondary Diagnosis Diagnosis Name Provider Source Dec 22, 2023 10:47 AM PRIMARY Elevated prostate specific antigen [PSA] MONICA VERDUZCO [facility] Plan of Treatment: Future Appointments (+ 6 months) and Future Tests (+/- 45 days) The Plan of Treatment section includes future care activities for the patient from all [place] treatmentfacilities. This section includes future appointments and future orders which are active, pending or scheduled. Future Appointments This section includes appointments that were scheduled to occur 6 months from the date of the Encounter, up to a maximum of 20 appointments. The data comes from all [place] treatment facilities. Appointment Date/Time Appointment Type Appointme nt Facility Name Dec 31, 2023 09:00 AM [facility]ORY [facility]IC[facility] [place] [facility] Dec 31, 2023 10:30 AM [facility]IC[facility] [place] [facility] January 22, 2024 02:30 PM [facility]UL[facility]ORY [facility] MEDICINE [facility] [place] [facility] Feb 26, 2024 01:00 PM [facility] [place]IC[place] Feb 26, 2024 01:15 PM [facility]ORY - [place]IC[place] Mar 10, 2024 09:00 AM AMBULATORY - NONE [facility] [place] [facility] Mar 18, 2024 09:30 AM AMBULATORY [facility] MEDICINE [facility] [place] [facility] Mar 21, 2024 09:30 AM AMBULATORY - MEDICINE [place] [facility] [place] [facility] Apr 07, 2024 08:30 AM AMBULATORY - MEDICINE [facility] [place] [facility] Apr 15, 2024 02:30 PM AMBULATORY - MEDICINE [place] [facility] [place] [facility] Apr 27, 2024 10:00 AM [facility] May 13, 2024 11:00 AM [facility]ORY - MEDICINE [place] [facility] [place] [facility] May 31, 2024 10:00 AM [facility]UL[facility]ORY - MEDICINE [facility] [place] [facility] Jun 03, 2024 12:45 PM [facility] Jun 21, 2024 09:00 AM [facility] Lab Results: +/- 30 days of the encounter This section includes the Chemistry and Hematology Lab Results on record with [place] for the patient. Radiology Reports and Pathology Reports are provided separately, in subsequent sections. Lab Results This section contains the Chemistry/Hematology Results that were resulted 30 days before or 30 daysafter the date of the Encounter. Date/Time Source Result Type Result - Unit Interpretation Reference Range Comment Nov 30, 2023 10:39 AM [facility] PSA Specimen Type: SERUM No comment entered. Ordering Provider: HAYLEY VERDUZCO Report Released Date/Time: Nov 30, 2023 10:01 AM Reporting Lab: [address] [address] Performing Lab: [facility] [address] [address] PSA 35.69 ng/mL H 0.00-4.00 Social History: Smoking Status (Most current) and Tobacco Use (All prior to encounter date) This section includes the most current, and the historical, smoking and tobacco- related health factors from the [place] facility where the Encounter took place. Current Smoking Status This section includes the most current smoking, or tobacco-related health factor, from the [place] facility where the Encounter took place. Date/Time Current Smoking Status Comment Ray [facility]ral Jun 23, 2023 09:00 AM VA-TOBACCO FORMER USER [facility] Tobacco Use History This section includes a history of the smoking, or tobacco-related health factors, that were collected on or before the date of the Encounter. The data comes from the [place] facility where the Encounter took place. Date/Time Smoking Status/Tobacco Use Comment F acility Jun 23, 2023 09:00 AM VA-TOBACCO QUIT 15 YRS OR MORE [facility] May 01, 2022 01:30 PM VA-TOBACCO FORMER USER [facility] May 01, 2022 01:30 PM VA-TOBACCO QUIT 15 YRS OR MORE [facility] Apr 15, 2021 03:00 PM VA-TOBACCO FORMER USER [facility] Apr 15, 2021 03:00 PM VA-TOBACCO QUIT 15 YRS OR MORE [facility] Oct 20, 2018 12:53 PM VA-TOBACCO FORMER USER [facility] Oct 20, 2018 12:53 PM VA-TOBACCO QUIT 15 YRS OR MORE [facility] Jul 03, 2017 10:33 AM QUIT TOBACCO USE > 7 YEARS AGO quit 25yrs ago [facility] February 13, 2016 08:46 AM LIFETIME NON-TOBACCO USER [facility] Advance Directives: All historical and current Section Date Range: From patient's date of to the date document was created. This section includes ALL of a patient's completed or amended [place] Advance and Rescinded Directives. The entries below indicate that a directive exists for the patient, but an actual copy is not included with this document. The data comes from all [facility]. Date Advance Directives Provider Source Apr 04, 2024 ADVANCE DIRECTIVE [facility] Encounter Notes: All associated encounter notes This section contains the clinical notes associated to the Encounter. Date/Time Encounter Note(s) Provider Source Dec 22, 2023 10:13 AM PREVENTIVE MEDICIN E NURSING NOTE: LOCAL TITLE: CLINICAL REMINDERS/NURSING STANDARD TITLE: PREVENTIVE MEDICINE NURSING NOTE DATE OF NOTE: DEC 22, 2023@10:13 ENTRY DATE: DEC 22, 2023@10:14:01 AUTHOR: ISABEL FREDERICK COSIGNER: URGENCY: STATUS: COMPLETED Home Telehealth (CCHT) Referral: Patient declines participation in CCHT Program at this time. Sexual Orientation: The patient thinks of their sexual orientation as: Straight or Heterosexual RHS Screen: RHS Screen Session Format: Face to Face Environmental Check Upon inquiry, the individual reports that the environment is safe to proceed. Informed Consent to Screen and Document The individual consents to proceed with screening. The individual consents to documentation of responses. PRIMARY SCREEN: In the past 12 months, how often did a current or former intimate partner (e.g., boyfriend, girlfriend, , , sexual partner): 1. Scream or curse at you Never 2. Insult or talk down to you Never 3. Threaten you with harm Never 4. Physically hurt you Never 5. Force or pressure you to have sexual contact against your will, or when you were unable to say no Never ?? The HITS tool (items 1-4 above) is [place] copyright protected by Andrea Richards MD, and the user has full rights to use it throughout the [place] system. PRIMARY SCREEN RESULT: The Primary Screen is NEGATIVE. The individual answered never to all forms of IPV above (i.e., answered never to all 5 items) The individual accepts education and/or resources: No EDUCATION: The individual indicated readiness to learn. Education offered during this session as noted above. The individual indicated understanding by asking relevant questions and making appropriate comments. No barriers to learning were observed or identified. Eye Care At-Risk Screen : Patient identified to be at risk for the following eye condition(s): GLAUCOMA: Glaucoma Risk Factors Information: Encounter Diagnosis: 12/22/2022@15:00 H40.013 (ICD-10-CM) Open Angle with Borderline Findings, low Risk, Bilateral rank: SECONDARY Prov. Narr. - Glaucoma Suspect,Low Risk,Bilateral Action: Referral Ordered: Comprehensive Eye Exam Patient has an exclusion to Tele-Eye Screening. Schedule for a comprehensive eye exam ordered. Comment: NUMBER PROVIDED TO HE WILL CALL TO SCHEDULE EYE EXAM MED REC COMPLETED BY PROVIDER DURING VISIT. /mariana/ ISABEL FREDERICK LPN LPN Signed: 12/22/2023 10:16 ISABEL FREDERICK Dec 22, 2023 07:48 AM PHYSICIAN NOTE: LOCAL TITLE: NOTE STANDARD TITLE: PHYSICIAN NOTE DATE OF NOTE: DEC 22, 2023@07:48 ENTRY DATE: DEC 22, 2023@07:49:02 AUTHOR: NOLAN VERDUZCO EXP COSIGNER: URGENCY: STATUS: COMPLETED SUBJECT: Four month CC: 78 year old DECLINED TO ANSWER MALE SERVICE CONNECTED % - 50 HPI: Here for results of CT (no abnormalities in the pelvis seen - copy of the reports given to the patient). Discussed SPA trend (dramatic rise) Four days ago experienced hematospermia. Reports no pelvic pain. Psa [0-4.0] 11/30/1997 8:23 0.9 Psa [0-4.0] 11/15/1998 8:49 1.1 Psa [0.00-4.00] 06/24/2023 7:39 2.63 Psa [0.00-4.00] 10/06/2023 12:48 21.53 Psa [0.00-4.00] 11/30/2023 10:39 35.69 Problem list and medications reviewed. Last Labs: discussed Last seen late Aug 2023: ...ASSESSMENT & PLAN: 78 year old MALE SERVICE CONNECTED % - 50 presents for 2-month follow-up with dramatic improvement [...] can see him again in 6 months. Active problems - Computerized Problem List is the source for the followin. Carcinoma in situ of prostate followed by [facility] 2. Olecranon bursitis 3. Loss of teeth - acquired vet needs dentures/ recurrent gum/dental infections/ empric abx Apr 2022 4. History of partial adherence to treatment Sep 2020 - noted lapses in lisinopril refills 5. Paraesthesia of lower extremity (SNOMED CT [id number]) previously on gabapentin recently with objective signs of dminished circulation to LEFT foot only initial screen for metabolic/nutritional causes of neuropathy unrevealing No show to neurology NCS, Summer 2020 No show to Vascular consult, Summer 2020 6. status post appendectomy 7. Diverticular disease normal colonoscopy August, 8. Osteoarthritis (SNOMED CT [id number]) C/S worst at C6-C7 09/06 mod OA Interphalamgeal joint right thumb 09/06 9. Generalized anxiety disorder 10. Epilepsy [employer] [id number], CELINA Link OV 12-05-15 11. Essential hypertension [place] [id number], CELINA Link OV 12-05-15 12. Atypical chest pain [place] [id number], CELINA Link OV 12-05-15 02/13/16 EKG NSR 12/30/17 EKG NSR PHYSICAL EXAMINATION/DIRECTED EXAM: BP:115/62 (12/22/2023 10:12) Resp:20 (12/22/2023 10:12) Temp:96.2 F [35.7 C] (12/22/2023 10:12) Pulse:73 (12/22/2023 10:12) WEIGHT 12/22/2023 10:12 176(79.83)[25] 09/18/2023 11:38 185(83.91)[27] 07/06/2023 15:00 193(87.54)[29*] ASSESSMENT & PLAN: 78 year old MALE SERVICE CONNECTED % - 49 [place] presents for CT results/PSA. Continuous to melissar in his faiht with [facility]. He has decided not to pursue suggested study by urologist. Okay to do SA in 2 mos. He is not worried about the PSA (despite his preoccupation about looking for sxs of prostate CA) - I only need one year of good health ( have property and maybe build two houses for my family.. May likely pass away from something else than prostate CA. The patient is cautioned howver to mantain good nutrition in light of weigh trend. Chronic issues reviewed briefly; no changes to management unless specified above. RTC as scheduled in two months. TIME ATTESTATION: Time spent directly with the [...] of labs/studies and medication list. Upcoming Appointments: 12/22/2023 10:00 CWM/SO/PACT 9 12/31/2023 09:00 CWM/NO/OPTOMETRY 1 AM 03/18/2024 09:30 CWM/SO/PACT 9 NURSING 03/21/2024 09:30 CWM/SO/PACT 9 Med Reconciliation: Active Outpatient Medications (including Supplies): [...] WAIT 10 MINUTES BEFORE INSERTING LENSES) 6) LISINOPRIL 20MG TAB TAKE ONE TABLET BY MOUTH ONCE ACTIVE DAILY TO CONTROL BLOOD PRESSURE Active Non-VA Medications Status ======= 1) Non-VA FLUTICASONE PROP 50MCG 120D NASAL INHL 1 SPRAY ACTIVE INTO EACH NOSTRIL TWICE DAILY 7 Total Medications Medication (Local) Status LIFITEGRAST 5% OPH SOLN 0.2ML Directions: INSTILL 1 DROP INTO EACH EYE TWICE DAILY Quantity: 60 for 30 days Provider: ANDRÉS BRYANT Expires: 11/01/23 Status: Medication (Remote) Status No remote medications found. /mariana/ NOALN VERDUZCO MD PHYSICIAN Signed: 12/22/2023 10:49 NOLAN VERDUZCO [facility]
--- OUTSIDE RECORDS SUMMARY | 2024-08-30 18:31 | XMS_ITS | Encounter Summary ---
Author Name [facility] [place] Address [address] [place] [id number] Care Team Providers Care License Clerk Name Role Phone NOLAN VERDUZCO Primary Care [...] Segal's Name Patient's Relationship to Policy Segal [facility] MEDICARE ADVANTAGE [place] INDIV IDUAL - [place] Sep 21, 2023 [id number] [phone] GENET DUGAN S [facility]IENT [facility] MEDICARE ADVANTAGE [facility] ([facility] Sep 21, 2023 [id number] [phone] DUGAN,GENET S PATIENT H[place]KY MEDICAID H[place] PLAN May 22, 2022 MEDICAI D [id number] MARVIN DUGANI S PATIENT MEDICARE ([facility]) MEDICARE () PART B May 22, 2022 PART B [id number] [phone] DUGAN,GENET S PATIENT MEDICARE ([facility]) MEDICARE (M) PART A Feb 19, 2009 PART A [id number] DUGAN,GENET S PATIENT MEDICARE PART D ([place]) MEDICARE (M) PART D Jul 22, 2022 PART D [id number] [phone] GENET DUGAN S PATIENT [facility] ([place]) MEDICARE ADVANTAGE [facility] ([place]) Sep 21, 2022 [id number] [phone] GENET DUGAN S PATIENT [facility] ([place]) MEDICARE ADVANTAGE [facility] ([place]) Sep 21, 2022 [id number] GENET DUGAN S PATIENT Selected Encounter This section includes the information on record at [place] for the Encounter. Date/Time Encounter Type Encounter Description Reason Provider Source Dec 31, 2023 10:30 AM CMPTR OPHTH IMG OPTIC NERVE OPTOMETRY ICD-10-CM H40.013 Open angle with borderline findings, low risk, bilateral MERHAR,CAROL B IHE Encounter Template Text not used by [place] Assessments - Encounter Diagnoses This section includes the primary and secondary diagnoses documented for the Encounter. Date/Time Primary/Secondary Diagnosis Diagnosis Name Provider Source Dec 31, 2023 10:36 AM PRIMARY Open angle with borderline findings, low risk, bilateral MERHAR,CAROL B [place] [facility] [place] [facility] Plan of Treatment: Future Appointments (+ 6 months) and Future Tests (+/- 45 days) The Plan of Treatment section includes future care activities for the patient from all [place] treatmentfacilities. This section includes future appointments and future orders which are active, pending or scheduled. Future Appointments This section includes appointments that were scheduled to occur 6 months from the date of the Encounter, up to a maximum of 20 appointments. The data comes from all [place] treatment facilities. Appointment Date/Time Appointment Type Appointme nt Facility Name January 22, 2024 02:30 PM AMBULATORY - MEDICINE [facility] [place] [facility] Feb 26, 2024 01:00 PM [facility] Feb 26, 2024 01:15 PM [facility] Mar 10, 2024 09:00 AM AMBULATORY - NONE [facility] [place] [facility] Mar 18, 2024 09:30 AM AMBULATORY - MEDICINE [facility] [place] [facility] Mar 21, 2024 09:30 AM AMBULATORY - MEDICINE [place] [facility] [place] [facility] Apr 07, 2024 08:30 AM AMBULATORY - MEDICINE [facility] [place] [facility] Apr 15, 2024 02:30 PM AMBULATORY - MEDICINE [facility] [place] [facility] Apr 27, 2024 10:00 AM AMBULATORY - MEDICINE [facility] [place] [facility] May 13, 2024 11:00 AM AMBULATORY - MEDICINE [facility] [place] [facility] May 31, 2024 10:00 AM AMBULATORY - MEDICINE [facility] [place] [facility] Jun 03, 2024 12:45 PM AMBULATORY - MEDICINE [facility] [place] [facility] Jun 21, 2024 09:00 AM AMBULATORY - MEDICINE [facility] [place] [facility] Advance Directives: All historical and current Section Date Range: From patient's date of to the date document was created. This section includes ALL of a patient's completed or amended VA Advance and Rescinded Directives. The entries below indicate that a directive exists for the patient, but an actual copy is not included with this document. The data comes from all [place] facilities. Date Advance Directives Provider Source Apr 04, [address] [facility] Encounter Notes: All associated encounter notes This section contains the clinical notes associated to the Encounter. Date/Time Encounter Note(s) Provider Source Dec 31, 2023 10:29 AM OPTOMETRY CONSULT: LOCAL TITLE: CONSULT REPORT/OPTOMETRY OCT STANDARD TITLE: OPTOMETRY CONSULT DATE OF NOTE: DEC 31, 2023@10:29 ENTRY DATE: DEC 31, 2023@10:29:59 AUTHOR: TESS ELIZONDO COSIGNER: CAROL HOLLOWAY URGENCY: STATUS: COMPLETED CONSULT REPORT/OPTOMETRY OCT Has ADDENDA RNFL OCT reviewed for low risk open angle glaucoma suspect OU OD: average c/d 0.62, vertical c/d 0.61, disc area 1.97 mm^2. Average RNFL thickness 88 microns. No thinning noted all quadrants. OS: average c/d 0.65, vertical c/d 0.70, disc area mm^2. Average RNFL thickness 79 microns. No thinning noted all quadrants. A/P: . 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 No known family history of glaucoma. No evidence of pseudoexfoliation or pigment disperson. Previous pachymetry slightly thicker than average CCT. OCT taken today stable compared to baseline. -Pt ed re today's findings -Pt ed re glaucoma as well as the natural history of this diagnosis including prognosis. -Stress importance of continued follow-up appointments - repeated back the plan and education. -RTC 1 year for CEE Macula OCT reviewed for patient with reduced visual acuity OS>>OD OD: normal foveal contour, (-)SRF/IRF OS: normal foveal contour, (-)SRF/IRF A/P: Combined Cataracts OU - mildly visually significant -Pt ed re today's findings and the importance of UV protection -Pt ed cataracts may cause reduction of BCVA and symptoms of glare -RTC sooner if vision declines or interferes with ADLs - repeated back the plan and education. -Referral for cataract consult /mariana/ TESS ELIZONDO OPTOMETRY STUDENT Signed: 12/31/2023 11:57 /viky HOLLOWAY OD Application Services Manager Cosigned: 01/01/2024 15:13 01/01/2024 ADDENDUM STATUS: COMPLETED The optometry employee communications intern participated in this exam, I saw this [place] in conjunction with the optometry student. The visual images were captured by the optometry health retail service technician. Results of testing assessed by the student and reviewed by myself. I agree with the stated findings, assessment and plan. I have added/edited the documentation to reflect my exam findings and changes to the assessment and plan. /viky HOLLOWAY OD Application Services Manager Signed: 01/01/2024 15:14 TESS ELIZONDO CNTL [facility]
--- OUTSIDE RECORDS SUMMARY | 2024-08-30 18:32 | XMS_ITS | Encounter Summary ---
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 Address [address] [place] [id number] Care Team Providers Care B2B Sales Manager Name Role Phone NOLAN VERDUZCO Primary Care [...] Name Patient's Relationship to Policy Segal [facility] ([place]) MEDICARE ADVANTAGE [place] INDIV IDUAL - [place] Sep 21, 2023 [id number] [phone] GENET DUGAN S [facility]) Sep 21, 2023 [id number] [phone] GENET DUGAN S PATIENT [place] MEDICAID [place] PLAN May 22, 2022 MEDICAI D [id number] GENET DUGAN S PATIENT MEDICARE ([place]) MEDICARE () PART B May 22, 2022 PART B [id number] GENET DUGAN S PATIENT MEDICARE ([place]) MEDICARE () PART A Feb 19, 2009 PART A [id number] [phone] GENET DUGAN S PATIENT MEDICARE PART D ([place]) MEDICARE (M) PART D Jul 22, 2022 PART D [id number] [id number] [phone] GENET DUGAN S PATIENT [facility] ([place]) MEDICARE ADVANTAGE [facility] ([place]) Sep 21, 2022 [id number] [phone] GENET DUGAN S PATIENT [facility] ([place]) MEDICARE ADVANTAGE [facility] ([place]) Sep 21, 2022 [id number] GENET DUGAN PATIENT Selected Encounter This section includes the information on record at [place] for the Encounter. Date/Time Encounter Type Encounter Description Reason Provider Source January 22, 2024 02:30 PM OFFICE O/P EST MOD 30 MIN PRIMARY CARE/MEDICINE ICD-10-CM W06.XXXA Fall from bed, initial encounter HAYLEY VERDUZCO [place] Encounter Template Text not used by [place] Assessments - Encounter Diagnoses This section includes the primary and secondary diagnoses documented for the Encounter. Date/Time Primary/Secondary Diagnosis Diagnosis Name Provider Source January 22, 2024 04:47 PM PRIMARY Fall from bed, initial encounter MONICA VERDUZCO [facility] Plan of Treatment: Future Appointments (+ 6 months) and Future Tests (+/- 45 days) The Plan of Treatment section includes future care activities for the patient from all [place] [facility]. This section includes future appointments and future orders which are active, pending or scheduled. Future Appointments This section includes appointments that were scheduled to occur 6 months from the date of the Encounter, up to a maximum of 20 appointments. The data comes from all [place] treatment facilities. Appointment Date/Time Appointment Type Appointme nt Facility Name Feb 26, 2024 01:00 PM AM[facility]UL[facility]ORY - [facility]ICINE [facility] [place] Feb 26, 2024 01:15 PM AMBULATORY - MEDICINE [facility] [place] Mar 10, 2024 09:00 AM AMBULATORY - NONE [place] [facility] [place] [facility] Mar 18, 2024 09:30 AM AMBULATORY - MEDICINE [place] [facility] [place] [facility] Mar 21, 2024 09:30 AM AMBULATORY - MEDICINE [facility] [place] [facility] Apr 07, 2024 08:30 AM AMBULATORY - MEDICINE [place] [facility] [place] [facility] Apr 15, 2024 02:30 PM AMBULATORY - MEDICINE [place] [facility] [place] [facility] Apr 27, 2024 10:00 AM AMBULATORY - MEDICINE [place] [facility] [place] [facility] May 13, 2024 11:00 AM AMBULATORY - MEDICINE [place] [facility] [place] [facility] May 31, 2024 10:00 AM AMBULATORY - MEDICINE [place] [facility] [place] [facility] Jun 03, 2024 12:45 PM AMBULATORY - MEDICINE [place] [facility] [place] [facility] Jun 21, 2024 09:00 AM AMBULATORY - MEDICINE [facility] Social History: Smoking Status (Most current) and Tobacco Use (All prior to encounter date) This section includes the most current, and the historical, smoking and tobacco- related health factors from the [place] facility where the Encounter took place. Current Smoking Status This section includes the most current smoking, or tobacco-related health factor, from the [place] facility where the Encounter took place. Date/Time Current Smoking Status Comment Facil ity Jun 23, 2023 09:00 AM VA-TOBACCO FORMER USER [facility] Tobacco Use History This section includes a history of the smoking, or tobacco-related health factors, that were collected on or before the date of the Encounter. The data comes from the [place] facility where the Encounter took place. Date/Time Smoking Status/Tobacco Use Comment F acility Jun 23, 2023 09:00 AM VA-TOBACCO QUIT 15 YRS OR MORE [facility] May 01, 2022 01:30 PM VA-TOBACCO FORMER USER [facility] May 01, 2022 01:30 PM VA-TOBACCO QUIT 15 YRS OR MORE [facility] Apr 15, 2021 03:00 PM VA-TOBACCO FORMER USER [facility] Apr 15, 2021 03:00 PM VA-TOBACCO QUIT 15 YRS OR MORE [facility] Oct 20, 2018 12:53 PM VA-TOBACCO FORMER USER [facility] Oct 20, 2018 12:53 PM VA-TOBACCO QUIT 15 YRS OR MORE [facility] [place] Jul 03, 2017 10:33 AM QUIT TOBACCO USE > 7 YEARS AGO quit 25yrs ago [facility] February 13, 2016 08:46 AM LIFETIME NON-TOBACCO USER [facility] Advance Directives: All historical and current Section Date Range: From patient's date of to the date document was created. This section includes ALL of a patient's completed or amended [place] Advance and Rescinded Directives. The entries below indicate that a directive exists for the patient, but an actual copy is not included with this document. The data comes from all [place] facilities. Date Advance Directives Provider Source Apr 04, 2024 [address]ANCE [address] [facility] Encounter Notes: All associated encounter notes This section contains the clinical notes associated to the Encounter. Date/Time Encounter Note(s) Provider Source January 22, 2024 03:45 PM PREVENTIVE MEDICIN E NURSING NOTE: LOCAL TITLE: CLINICAL REMINDERS/NURSING STANDARD TITLE: PREVENTIVE MEDICINE NURSING NOTE DATE OF NOTE: JANUARY 22, 2024@15:45 ENTRY DATE: JANUARY 22, 2024@15:45:34 AUTHOR: EM FREDERICK EXP COSIGNER: URGENCY: STATUS: COMPLETED Homelessness/Food Insecurity Screen: In the past 2 months, have you been living in stable housing that you own, rent, or stay in as part of a household? Yes - Living in stable housing. Are you worried or concerned that in the next 2 months you may NOT have stable housing that you own, rent, or stay in as part of a household? No - Not worried about housing near future [facility] reports the following: Within the past 12 months, you worried whether your food would run out before you got money to buy more. Never true Within the past 12 months, the food you bought just didn't last and you didn't have money to get more. Never MED REC COMPLETED BY PROVIDER DURING VISIT. /mariana/ EM FREDERICK LPN LPN Signed: 01/22/2024 15:46 EM FREDERICK [place] January 22, 2024 08:32 AM PHYSICIAN NOTE: LOCAL TITLE: MD NOTE STANDARD TITLE: PHYSICIAN NOTE DATE OF NOTE: JANUARY 22, 2024@08:32 ENTRY DATE: JANUARY 22, 2024@08:32:41 AUTHOR: NOLAN VERDUZCO EXP COSIGNER: URGENCY: STATUS: COMPLETED REASON FOR VISIT/CHIEF COMPLAINT: Patient presents today for for what appears to be completion of forms to increase his service connection. Apparently his VSO also learned of some of his ongoing complaints including 2 falls over the weekend (Thursday and Thursday) in which he tried to get up from bed and he fell backwards. He denies any associated nausea vomiting/vertiginous lightheadedness. He reports of no serious injuries. Over the course of the remainder of the week including today he is back to his normal self. Of course he also relates of 2 weeks of numbness about his lips without any pain. He denies any changes in medications or his diet. He denies any difficulties with his tongue or with taste as well as swallowing. PHYSICAL EXAMINATION: Temperature: 96.2 F [35.7 C] (12/22/2023 10:12) Pulse: 73 (12/22/2023 10:12) Respiration: 20 (12/22/2023 10:12) BP: 115/62 (12/22/2023 10:12) Pain: 0 (12/22/2023 10:12) Height: 70 in [177.8 cm] (12/22/2023 10:12) Weight: 176 lb [79.83 kg] (12/22/2023 10:) S1-S2 regular rhythm Lungs clear to auscultation Nonfocal neuro exam TMs visualized without any debris in the external ear canal. ASSESSMENT & PLAN: Somewhat difficult visit as the patient saw to have documentation for his prostate cancer. But as he was notified that this is a process which does not require any documentation from the primary he began to say that the reason why he needs extension of his service connection is because he is feeling more and more ill and he did express those complaints to the VSO. He was instructed to see his doctor but as he called here and there was no available appointment he decided to wait until today. We had a quite long discussion with Em acting as interpreter translator to make certain that we had spoken about all the items of his concern. The patient's exam today is otherwise unremarkable and has no further symptoms. Therefore I recommended we continue to monitor it but he has 2% to urgent care when the clinic is closed or just walk-in when we are available. Issues that require the emergency room should be seen at the emergency room and not here in the clinic. He was given a list of 2 clinics in his area of which are contracted community urgent care centers which he can use over the weekend. He continues to have difficulties with family members as well up. Sometimes he cites them as the reason why he does not want to go or cannot go to the emergency room but at other times he also reports that that also makes it difficult for him to take care of himself because they do not seem to care about him. He declines any referral to mental health at this time. We will continue to help him through the process of adjusting to VA care as he has been reluctant to seek medical advice for a long time until now. He also has variable understanding of his prostate cancer and has been treating this with holistic approaches including supplements which makes it difficult for us to truly understand how he takes care of himself. Return as needed. /mariana/ NOLAN VERDUZCO MD PHYSICIAN Signed: 01/22/2024 16:47 NOLAN VERDUZCO [facility]
--- OUTSIDE RECORDS SUMMARY | 2024-08-30 18:34 | XMS_ITS | Encounter Summary ---
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 Address [address] [place] [id number] Care Team Providers Care Outside Sales Name Role Phone NOLAN VERDUZCO Primary Care [...] Segal's Name Patient's Relationship to Policy Segal [facility] ([facility]) MEDICARE ADVANTAGE [place] INDIV IDUAL - [place] Sep 21, 2023 [id number] [phone] GENET DUGAN S PATIENT [facility] ([facility]) MEDICARE ADVANTAGE [facility] ([facility]) Sep 21, 2023 [id number] [phone] DUGAN,GENET S PATIENT [place] MEDICAID H[place] PLAN May 22, 2022 MEDICAI D [id number] GENET DUGAN S PATIENT MEDICARE ([facility]) MEDICARE () PART B May 22, 2022 PART B [id number] MARVIN DUGANI S PATIENT MEDICARE ([facility]) MEDICARE () PART A Feb 19, 2009 PART A [id number] MARVIN DUGANI S PATIENT MEDICARE PART D (WNR) MEDICARE (M) PART D Jul 22, 2022 PART D [id number] GENET DUGAN PATIENT [facility] (WNR) MEDICARE ADVANTAGE [facility] (WNR) Sep 21, 2022 [id number] GENET DUGAN PATIENT [facility] (WNR) MEDICARE ADVANTAGE [facility] (WNR) Sep 21, 2022 [id number] GENET DUGAN PATIENT Selected Encounter This section includes the information on record at [place] for the Encounter. Date/Time Encounter Type Encounter Description Reason Provider Source Feb 26, 2024 01:00 PM OFF/OP EST JANUARY X REQ PHY/QHP PRIMARY CARE/MEDICINE ICD-10-CM L02.212 Cutaneous abscess of back [any part, except buttock] [facility] [place] Encounter Template Text not used by [place] Assessments - Encounter Diagnoses This section includes the primary and secondary diagnoses documented for the Encounter. Date/Time Primary/Secondary Diagnosis Diagnosis Name Provider Source Feb 26, 2024 02:15 PM PRIMARY Cutaneous abscess of back [any part, except buttock] [facility] CORRALES [place] Plan of Treatment: Future Appointments (+ 6 months) and Future Tests (+/- 45 days) The Plan of Treatment section includes future care activities for the patient from all [place] treatmentfacilities. This section includes future appointments and future orders which are active, pending or scheduled. Future Appointments This section includes appointments that were scheduled to occur 6 months from the date of the Encounter, up to a maximum of 20 appointments. The data comes from all [place] treatment facilities. Appointment Date/Time Appointment Type Appointme nt Facility Name Mar 10, 2024 09:00 AM AMBULATORY - NONE [place] [facility] [place] [facility] Mar 18, 2024 09:30 AM AMBULATORY - MEDICINE [place] [facility] [place] [facility] Mar 21, 2024 09:30 AM AMBULATORY - MEDICINE [place] [facility] [place] [facility] Apr 07, 2024 08:30 AM AMBULATORY - MEDICINE [place] [facility] [place] [facility] Apr 15, 2024 02:30 PM AMBULATORY - MEDICINE [place] [facility] [place] [facility] Apr 27, 2024 10:00 AM AMBULATORY - MEDICINE [place] [facility] [place] [facility] May 13, 2024 11:00 AM AMBULATORY - MEDICINE [place] [facility] [place] [facility] May 31, 2024 10:00 AM AMBULATORY - MEDICINE [place] [facility] [place] [facility] Jun 03, 2024 12:45 PM AMBULATORY - MEDICINE [place] [facility] [place] [facility] Jun 21, 2024 09:00 AM AMBULATORY - MEDICINE [place] [facility] [place] [facility] Aug 09, 2024 09:00 AM AMBULATORY - MEDICINE [facility] [place] [facility] Aug 16, 2024 12:00 PM AMBULATORY - NONE [place] [facility] [place] [facility] Aug 22, 2024 11:20 AM AMBULATORY - MEDICINE [place] [facility] [place] [facility] Aug 24, 2024 11:00 AM AMBULATORY - MEDICINE [facility] [place] Active, Pending, and Scheduled Orders This section includes a listing of several types of active, pending, and scheduled orders, including clinic medications orders, diagnostic test orders, procedure orders and consult orders; where the start date of the order is 45 days before the date of the Encounter or 45 days after the date of theEncounter. The data comes from all [place] treatment facilities. Test Date/Time Test Type Test Details Facility Name Mar 19, 2024 12:00 AM Laboratory - Chemistry Order MICROALBUMIN CREATININE RATIO PANEL URINE (RANDOM) [facility] [place] [facility] Mar 19, 2024 12:00 AM Laboratory - Chemistry Order VITAMIN B12 BLOOD (SST-SERUM) [facility] [place] [facility] Mar 19, 2024 12:00 AM Laboratory - Chemistry Order FOLATE BLOOD (SST-SERUM) [facility] [place] [facility] Mar 19, 2024 12:00 AM Laboratory - Chemistry Order BASIC METABOLIC PANEL (fasting) BLOOD (SST-SERUM) [facility] [place] [facility] Mar 19, 2024 12:00 AM Laboratory - Chemistry Order VITAMIN D 25-OH (Therapy monitor) BLOOD (SST-SERUM) [facility] [place] [facility] Mar 19, 2024 12:00 AM Laboratory - Chemistry Order LIPID PANEL FASTING BLOOD (SST-SERUM) [facility] Mar 19, 2024 12:00 AM Laboratory - Chemistry Order LIVER FUNCTION BLOOD (SST-SERUM) [facility] Mar 19, 2024 12:00 AM Laboratory - Chemistry Order HEMOGLOBIN A1C PANEL BLOOD (LAV-BLOOD) [facility] Mar 19, 2024 12:00 AM Laboratory - Chemistry Order CBC AND DIFF (AUTO) BLOOD (LAV-BLOOD) [facility] Mar 19, 2024 12:00 AM Laboratory - Chemistry Order TSH BLOOD (SST-SERUM) [facility] Mar 19, 2024 12:00 AM Laboratory - Chemistry Order PSA BLOOD (SST-SERUM) [facility] Vital Signs: All taken on the encounter date This section contains inpatient and outpatient Vital Signs collected on the date of the Encounter. Date/Time Temperature Pulse Blood Pressure Respiratory Rate SP02 Pain Height Weight Body Mass Index Source Feb 26, 2024 01:38 PM 98.2 70 148/73 14 96 [place] Social History: Smoking Status (Most current) and Tobacco Use (All prior to encounter date) This section includes the most current, and the historical, smoking and tobacco- related health factors from the [place] facility where the Encounter took place. Current Smoking Status This section includes the most current smoking, or tobacco-related health factor, from the [place] facility where the Encounter took place. Date/Time Current Smoking Status Comment Facil ity Jun 23, 2023 09:00 AM VA-TOBACCO FORMER USER [place] Tobacco Use History This section includes a history of the smoking, or tobacco-related health factors, that were collected on or before the date of the Encounter. The data comes from the [place] facility where the Encounter took place. Date/Time Smoking Status/Tobacco Use Comment F acility Jun 23, 2023 09:00 AM VA-TOBACCO QUIT 15 YRS OR MORE [place] May 01, 2022 01:30 PM VA-TOBACCO FORMER USER [place] May 01, 2022 01:30 PM VA-TOBACCO QUIT 15 YRS OR MORE [place] Apr 15, 2021 03:00 PM VA-TOBACCO FORMER USER [place] Apr 15, 2021 03:00 PM VA-TOBACCO QUIT 15 YRS OR MORE [place] Oct 20, 2018 12:53 PM VA-TOBACCO FORMER USER [place] Oct 20, 2018 12:53 PM VA-TOBACCO QUIT 15 YRS OR MORE [place] Jul 03, 2017 10:33 AM QUIT TOBACCO USE > 7 YEARS AGO quit 25yrs ago [place] February 13, 2016 08:46 AM LIFETIME NON-TOBACCO USER [place] Advance Directives: All historical and current Section Date Range: From patient's date of to the date document was created. This section includes ALL of a patient's completed or amended VA Advance and Rescinded Directives. The entries below indicate that a directive exists for the patient, but an actual copy is not included with this document. The data comes from all [place] facilities. Date Advance Directives Provider Source Apr 04, 2024 ADVANCE DIRECTIVE [facility] Encounter Notes: All associated encounter notes This section contains the clinical notes associated to the Encounter. Date/Time Encounter Note(s) Provider Source Feb 26, 2024 01:41 PM PRIMARY CARE NOTE: LOCAL TITLE: WALK-IN NOTE PRIMARY CARE (T) STANDARD TITLE: PRIMARY CARE NOTE DATE OF NOTE: FEB 26, 2024@13:41 ENTRY DATE: FEB 26, 2024@13:42:01 AUTHOR: LATISHA CORRALES EXP COSIGNER: URGENCY: STATUS: COMPLETED <====Click to Start Nurse Data: 78year old MALE reports to Primary Care clinic for Walk-In visit. 's PCP is NOLAN VERDUZCO. Today Vet walks in to clinic with complaint of Abscess in the upper back. Last recorded Vital Signs are: Temperature:98.2 F [36.8 C] (02/26/2024 13:38) Pulse:70 (02/26/2024 13:38) Blood Pressure:148/73 (02/26/2024 13:38) Respiration:14 (02/26/2024 13:38) Pain:0 (01/22/2024 15:44) Vet reports current allergies are:Remote Allergy Data No Remote Allergy/ADR Data available for this patient Current Medications from Active Med list include: Active Outpatient Medications (including Supplies): Active Outpatient Medications Status ======= 1) CAPSAICIN 0.025% CREAM APPLY A MODERATE AMOUNT ACTIVE TOPICALLY FOUR TIMES A DAY FOR LOCALIZED PAIN (USE FOR AT LEAST 4 WEEKS FOR EFFECT) 2) CARBOXYMETHYLCELLULOSE NA 1% OPH GEL APPLY 1 DROP ACTIVE INTO EACH EYE FOUR TIMES DAILY NEEDED FOR DRY EYE 3) CEFUROXIME AXETIL 500MG TAB TAKE ONE TABLET BY MOUTH ACTIVE TWICE DAILY 4) FOLIC ACID 1MG TAB TAKE ONE TABLET BY MOUTH ONCE ACTIVE DAILY FOR INADEQUATE FOLIC ACID VITAMIN/NUTRITION SUPPLEMENT 5) KETOTIFEN 0.025% OPH SOLN INSTILL 1 DROP INTO EACH ACTIVE EYE TWICE DAILY (IF YOU WEAR CONTACT LENSES, WAIT 10 MINUTES BEFORE INSERTING LENSES) 6) LIFITEGRAST 5% OPH SOLN 0.2ML INSTILL 1 DROP INTO ACTIVE EACH EYE TWICE DAILY 7) LISINOPRIL 20MG TAB TAKE ONE TABLET BY MOUTH ONCE ACTIVE DAILY TO CONTROL BLOOD PRESSURE Pending Outpatient Medications Status ======= 1) ACETAMINOPHEN 500MG TAB TAKE TWO TABLETS BY MOUTH PENDING EVERY 6 HOURS NEEDED Active Non-VA Medications Status ======= 1) Non-VA FLUTICASONE PROP 50MCG 120D NASAL INHL 1 SPRAY ACTIVE INTO EACH NOSTRIL TWICE DAILY 9 Total Medications Action: was seen in sick call for Abscess in the upper back. He was seen and attended to by Michel Christianson NP. Brandon also requesting a dermatology consult for multiple skin bumps: one on his left arm, two on his lower back and one on his chest. Response: /es/ LATISHA CORRALES RN REGISTERED NURSE Signed: 02/26/2024 14:15 LATISHA CORRALES
--- OUTSIDE RECORDS SUMMARY | 2024-08-30 18:34 | XMS_ITS ---
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 Organization [place] Address [address] [place] [address] Care Team Providers Care Pigment Making Supervisor Name Role Phone NOLAN VERDUZCO Primary Care [...] Segal's Name Patient's Relationship to Policy Segal [facility] MEDICARE ADVANTAGE [place] INDIV IDUAL - [place] Sep 21, 2023 [id number] [phone] MARVIN [facility]UGANI S [facility] ([facility]) Sep 21, 2023 [id number] [phone] DUGAN,GENET S PATIENT [place] MEDICAID [place] PLAN May 22, 2022 MEDICAI D [id number] DUGAN,GENET S PATIENT MEDICARE ([place]) MEDICARE ([place]) PART B May 22, 2022 PART B [id number] [phone] DUGAN,GENET S PATIENT MEDICARE (WNR) MEDICARE ([place]) PART A Feb 19, 2009 PART A [id number] DUGAN,GENET S PATIENT MEDICARE PART D (WNR) MEDICARE (M) PART D Jul 22, 2022 PART D [id number] GENET DUGAN S PATIENT [facility] (WNR) MEDICARE ADVANTAGE [facility] (WNR) Sep 21, 2022 [id number] [phone] GENET DUGAN S PATIENT [facility] (WNR) MEDICARE ADVANTAGE [facility] (WNR) Sep 21, 2022 [id number] GENET DUGAN PATIENT Selected Encounter This section includes the information on record at [place] for the Encounter. Date/Time Encounter Type Encounter Description Reason Pro vider Source Feb 26, 2024 11:26 AM Outpatient Encounter ADMIN PAT ACTIVTIES (MASNONCT) [...] 10, 2024 09:00 AM AMBULATORY - NONE [place] [facility] [place] [facility] Mar 18, 2024 09:30 AM AMBULATORY - MEDICINE [place] [facility] [place] [facility] Mar 21, 2024 09:30 AM AMBULATORY - MEDICINE [place] [facility] [place] [facility] Apr 07, 2024 08:30 AM AMBULATORY - MEDICINE [place] [facility] [place] [facility] Apr 15, 2024 02:30 PM AMBULATORY - MEDICINE [place] [facility] [place] [facility] Apr 27, 2024 10:00 AM AMBULATORY - MEDICINE [place] [facility] [place] [facility] May 13, 2024 11:00 AM AMBULATORY - MEDICINE [place] [facility] [place] [facility] May 31, 2024 10:00 AM AMBULATORY - MEDICINE [place] [facility] [place] [facility] Jun 03, 2024 12:45 PM AMBULATORY - MEDICINE [place] [facility] [place] [facility] Jun 21, 2024 09:00 AM AMBULATORY - MEDICINE [place] [facility] [place] [facility] Aug 09, 2024 09:00 AM AMBULATORY - MEDICINE [place] [facility] [place] [facility] Aug 16, 2024 12:00 PM AMBULATORY - NONE [facility] Aug 22, 2024 11:20 AM AMBULATORY - [facility]ICINE [place] [facility] Aug 24, 2024 11:00 AM AMBULATORY - MEDICINE [place] Active, Pending, and Scheduled Orders This section includes a listing of several types of active, pending, and scheduled orders, including clinic medications orders, diagnostic test orders, procedure orders and consult orders; where the start date of the order is 45 days before the date of the Encounter or 45 days after the date of theEncounter. The data comes from all [place] treatment facilities. Test Date/Time Test Type Test Details Facility Name Mar 19, 2024 12:00 AM Laboratory - Chemistry Order MICROALBUMIN CREATININE RATIO PANEL URINE (RANDOM) [facility] Mar 19, 2024 12:00 AM Laboratory - Chemistry Order VITAMIN B12 BLOOD (SST-SERUM) [facility] Mar 19, 2024 12:00 AM Laboratory - Chemistry Order FOLATE BLOOD (SST-SERUM) [facility] Mar 19, 2024 12:00 AM Laboratory - Chemistry Order VITAMIN D 25-OH (Therapy monitor) BLOOD (SST-SERUM) [facility] Mar 19, 2024 12:00 AM Laboratory - Chemistry Order BASIC METABOLIC PANEL (fasting) BLOOD (SST-SERUM) [facility] Mar 19, 2024 12:00 AM Laboratory - Chemistry Order LIPID PANEL FASTING BLOOD (SST-SERUM) [facility] Mar 19, 2024 12:00 AM Laboratory - Chemistry Order LIVER FUNCTION BLOOD (SST-SERUM) [facility] Mar 19, 2024 12:00 AM Laboratory - Chemistry Order CBC AND DIFF (AUTO) BLOOD (LAV-BLOOD) [facility] Mar 19, 2024 12:00 AM Laboratory - Chemistry Order HEMOGLOBIN A1C PANEL BLOOD (LAV-BLOOD) [facility] Mar 19, 2024 12:00 AM Laboratory - Chemistry Order TSH BLOOD (SST-SERUM) [facility] Mar 19, 2024 12:00 AM Laboratory - Chemistry Order PSA BLOOD (SST-SERUM) [facility] Advance Directives: All historical and current [...] Encounter Note(s) Provider Source Feb 26, 2024 11:26 AM ADMINISTRATIVE NOT E: LOCAL TITLE: CCC: SCHEDULING ADMINISTRATION STANDARD TITLE: ADMINISTRATIVE NOTE DATE OF NOTE: FEB 26, 2024@11:26:17 ENTRY DATE: FEB 26, 2024@11:26:18 AUTHOR: HOWARD TRAN COSIGNER: URGENCY: STATUS: COMPLETED CCC: SCHEDULING ADMINISTRATION Has ADDENDA Patient Demographics Patient Name: JAKE DUGAN Patient Primary Phone: [phone] Patient Primary Address: [address] [place] [address] Patient : 1945 Patient Age: 78 Caller/Recipient Relation to Patient: Self Administrative Administrative Note Reason: Community Care / [place] Act Administrative Note Comments: Call from , asking if he can go to local Emergency in [place]. Offered to speak with triage - declined, he only wanted to speak with Pact RN who speaks Kazakh RN was not avail. Advised he can self refer to Emergency Room - he will do this. State he has a boil on back of grease/oil and it hurts /mariana/ HOWARD OG 1 [facility] Signed: 02/26/2024 11:26 Receipt Acknowledged By: 03/01/2024 11:36 /mariana/ ISABEL FREDERICK LPN LPN 02/26/2024 12:08 /mariana/ WAGNER MOORE,RN-BC REGISTERED NURSE (RN) 02/26/2024 ADDENDUM STATUS: COMPLETED Called and he will come into sick clinic to have a painful boil on his back evaluated. /mariana/ WAGNER MOORE,RN-BC REGISTERED NURSE (RN) Signed: 02/26/2024 12:11 HOWARD TRAN [facility]
--- OUTSIDE RECORDS SUMMARY | 2024-08-30 18:34 | XMS_ITS | Encounter Summary ---
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 Address [address] [place] [id number] Care Team Providers Care Panel Machine Setter Name Role Phone NOLAN VERDUZCO Primary Care [...] Segal's Name Patient's Relationship to Policy Segal [facility] ([facility]) MEDICARE ADVANTAGE [place] INDIV IDUAL - [place] Sep 21, 2023 [id number] [phone] MARVIN DUGANI S [facility]IENT [facility] ([facility]) MEDICARE ADVANTAGE [facility] ([facility]) Sep 21, 2023 [id number] [phone] DUGANMARVINI S PATIENT HUSKY MEDICAID HUSKY PLAN May 22, 2022 MEDICAI D [id number] MARVIN DUGANI S PATIENT MEDICARE ([facility]) MEDICARE () PART B May 22, 2022 PART B [id number] DUGANMARVINI S PATIENT MEDICARE ([facility]) MEDICARE (M) PART A Feb 19, 2009 PART A [id number] DUGAN,GENET S PATIENT MEDICARE PART D (WNR) MEDICARE (M) PART D Jul 22, 2022 PART D [id number] [phone] GENET DUGAN S PATIENT [facility] (WNR) MEDICARE ADVANTAGE [facility] (WNR) Sep 21, 2022 [id number] GENET DUGAN S PATIENT [facility] (WNR) MEDICARE ADVANTAGE [facility] (WNR) Sep 21, 2022 [id number] GENET DUGAN PATIENT Selected Encounter This section includes the information on record at [place] for the Encounter. Date/Time Encounter Type Encounter Description Reason Pro vider Source Feb 26, 2024 01:06 PM Outpatient Encounter PRIMARY CARE/MEDICINE IHE Encounter Template Text not used by [place] Plan of Treatment: Future Appointments (+ 6 months) and Future Tests (+/- 45 days) The Plan of Treatment section includes future care activities for the patient from all [place] treatmentfacilities. This section includes future appointments and future orders which are active, pending or scheduled. Future Appointments This section includes appointments that were scheduled to occur 6 months from the date of the Encounter, up to a maximum of 20 appointments. The data comes from all [place] treatment facilities. Appointment Date/Time Appointment Type Appointme nt Facility Name Mar 10, 2024 09:00 AM AMBULATORY - NONE [facility] [place] [facility] Mar 18, 2024 09:30 AM AMBULATORY - MEDICINE [facility] [place] [facility] Mar 21, 2024 09:30 AM AMBULATORY - MEDICINE [facility] [place] [facility] Apr 07, 2024 08:30 AM AMBULATORY - MEDICINE [facility] [place] [facility] Apr 15, 2024 02:30 PM AMBULATORY - MEDICINE [facility] [place] [facility] Apr 27, 2024 10:00 AM AMBULATORY - MEDICINE [facility] [place] [facility] May 13, 2024 11:00 AM AMBULATORY - MEDICINE [facility] [place] [facility] May 31, 2024 10:00 AM AMBULATORY - MEDICINE [facility] [place] [facility] Jun 03, 2024 12:45 PM AMBULATORY - MEDICINE [facility] [place] [facility] Jun 21, 2024 09:00 AM AMBULATORY - MEDICINE [facility] Aug 09, 2024 09:00 AM AMBULATORY - MEDICINE [facility] Aug 16, 2024 12:00 PM AMBULATORY - NONE [facility] Aug 22, 2024 11:20 AM AMBULATORY - MEDICINE [place] [facility] Aug 24, 2024 11:00 AM [facility] Active, Pending, and Scheduled Orders This section includes a listing of several types of active, pending, and scheduled orders, including clinic medications orders, diagnostic test orders, procedure orders and consult orders; where the start date of the order is 45 days before the date of the Encounter or 45 days after the date of theEncounter. The data comes from all [place] treatment facilities. Test Date/Time Test Type Test Details Facility Name Mar 19, 2024 12:00 AM Laboratory - Chemistry Order MICROALBUMIN CREATININE RATIO PANEL [facility] Mar 19, 2024 12:00 AM Laboratory - Chemistry Order VITAMIN D 25-OH (Therapy monitor) BLOOD (SST-SERUM) [facility] Mar 19, 2024 12:00 AM Laboratory - Chemistry Order VITAMIN B12 BLOOD ([facility]ST[facility]SERUM) [facility] Mar 19, 2024 12:00 AM Laboratory - Chemistry Order FOLATE BLOOD (SST-SERUM) [facility] Mar 19, 2024 12:00 AM Laboratory - Chemistry Order BASIC METABOLIC PANEL (fasting) BLOOD (SST-SERUM) [facility] Mar 19, 2024 12:00 AM Laboratory - Chemistry Order LIPID PANEL FASTING BLOOD (SST-SERUM) [facility] Mar 19, 2024 12:00 AM Laboratory - Chemistry Order LIVER FUNCTION BLOOD (SST-SERUM) [facility] Mar 19, 2024 12:00 AM Laboratory - Chemistry Order HEMOGLOBIN A1C PANEL BLOOD (LAV-BLOOD) [facility] Mar 19, 2024 12:00 AM Laboratory - Chemistry Order CBC AND DIFF (AUTO) BLOOD (LAV-BLOOD) [facility] Mar 19, 2024 12:00 AM Laboratory - Chemistry Order TSH BLOOD (SST-SERUM) [facility] Mar 19, 2024 12:00 AM Laboratory - Chemistry Order PSA BLOOD (SST-SERUM) [facility] Advance Directives: All historical and current Section Date Range: From patient's date of to the date document was created. This section includes ALL of a patient's completed or amended [place] Advance and Rescinded Directives. The entries below indicate that a directive exists for the patient, but an actual copy is not included with this document. The data comes from all [place] facilities. Date Advance Directives Provider Source Apr 04, 2024 ADVANCE DIRECTIVE CHAPINCITO DEE [facility] Encounter Notes: All associated encounter notes This section contains the clinical notes associated to the Encounter. Date/Time Encounter Note(s) Provider Source Feb 26, 2024 01:08 PM PRIMARY CARE NOTE: LOCAL TITLE: WALK-IN NOTE PRIMARY CARE (T) STANDARD TITLE: PRIMARY CARE NOTE DATE OF NOTE: FEB 26, 2024@13:08 ENTRY DATE: FEB 26, 2024@13:08:19 AUTHOR: IRAJ DELGADO COSIGNER: URGENCY: STATUS: COMPLETED WALK-IN NOTE PRIMARY CARE (T) Has ADDENDA <====Click to Start Advanced Medical Support presents to the Primary Care clinic with the following request: [ ]Medication Renewal/Refill [ ]Consultation with Team RN [ X ]Symptoms [ ]Other The states they are: [ X ]Waiting [ ]Not Waiting Yes Walk in visit scheduled with PACT Nurse [ X ] At this encounter the 's demographics were verified. [ X ] At this encounter the 's Insurance information was verified. [ X ] At this encounter the below scheduled visits for the were discussed and appointment reminder card was offered. IS REQUESTING TO BE SEEN FOR BOIL ON BACK X9 DAYS. Future appointments: 03/18/2024 09:30 CWM/SO/PACT 9 NURSING 03/21/2024 09:30 CWM/SO/PACT 9 06/03/2024 12:45 [facility] CARE-OPHTHALMOLOGY 01/02/2025 10:00 CWM/NO/OPTOMETRY/MERHAR /es/ KENIA DELGADO [employer] Signed: 02/26/2024 13:09 Receipt Acknowledged By: 02/26/2024 13:22 /es/ PARISH MALDONADO CERTIFIED NURSE PRACTITIONER 02/26/2024 15:25 /es/ LATISHA CORRALES RN REGISTERED NURSE 02/26/2024 13:13 /es/ OUMAR MOOREN,RN-BC REGISTERED NURSE (RN) 02/26/2024 ADDENDUM STATUS: COMPLETED THIS DATA REPORTING ANALYST REQUESTED RECORDS FROM [facility]. /mariana/ KENIA DELGADO [employer] Signed: 02/26/2024 13:15 02/26/2024 ADDENDUM STATUS: COMPLETED ER NOTES FROM [facility] WERE PLACED INTO CWM/SO/PACT EIGHT FOLDER. /mariana/ KENIA DELGADO [employer] Signed: 02/26/2024 13:51 KENIA DELGADO RANDLE
--- OUTSIDE RECORDS SUMMARY | 2024-08-30 18:35 | XMS_ITS | Encounter Summary ---
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 Address [address] [place] [address] Care Team Providers Care Laborer Plumbing Name Role Phone NOLAN VERDUZCO Primary Care [...] Segal's Name Patient's Relationship to Policy Segal [facility] [place] (R) MEDICARE ADVANTAGE [place] - [place] Sep 21, 2023 [id number] [phone] GENET DUGAN S [facility] ([facility]NR[facility] MEDICARE [facility] ([facility]) Sep 21, 2023 [id number] [phone] MARVIN DUGANI S PATIENT HUSKY MEDICAID HUSKY PLAN May 22, 2022 MEDICAI D [id number] GENET DUGAN S PATIENT MEDICARE ([facility]) MEDICARE () PART B May 22, 2022 PART B [id number] [id number] [phone] MARVIN DUGANI S PATIENT MEDICARE (WNR) MEDICARE () PART A Feb 19, 2009 PART A [id number] GENET DUGAN S PATIENT MEDICARE PART D (WNR) MEDICARE (M) PART D Jul 22, 2022 PART D [id number] [phone] GENET DUGAN S PATIENT [facility] (WNR) MEDICARE ADVANTAGE [facility] (WNR) Sep 21, 2022 [id number] GENET DUGAN S PATIENT [facility] (WNR) MEDICARE ADVANTAGE [facility] (WNR) Sep 21, 2022 [id number] [phone] GENET DUGAN PATIENT Selected Encounter This section includes the information on record at [place] for the Encounter. Date/Time Encounter Type Encounter Description Reason Provider Source Mar 14, 2024 12:29 PM Outpatient Encounter DERMATOLOGY ICD-10-CM L82.1 Other seborrheic keratosis ADRIANNE MELISSA [place] Encounter Template Text not used by [place] Assessments - Encounter Diagnoses This section includes the primary and secondary diagnoses documented for the Encounter. Date/Time Primary/Secondary Diagnosis Diagnosis Name Provider Source Mar 14, 2024 12:31 PM PRIMARY Other seborrheic keratosis ADRIANNE MELISSA [facility] Plan of Treatment: Future Appointments (+ 6 months) and Future Tests (+/- 45 days) The Plan of Treatment section includes future care activities for the patient from all [place] treatmentfacritical access hospitalities. This section includes future appointments and future orders which are active, pending or scheduled. Future Appointments This section includes appointments that were scheduled to occur 6 months from the date of the Encounter, up to a maximum of 20 appointments. The data comes from all [place] treatment facilities. Appointment Date/Time Appointment Type Appointme nt Facility Name Mar 18, 2024 09:30 AM AMBULATORY - MEDICINE [place] [facility] [place] [facility] Mar 21, 2024 09:30 AM AMBULATORY - MEDICINE [place] [facility] [place] [facility] Apr 07, 2024 08:30 AM AMBULATORY - MEDICINE [place] [facility] [place] [facility] Apr 15, 2024 02:30 PM AMBULATORY - MEDICINE [place] [facility] [place] [facility] Apr 27, 2024 10:00 AM AMBULATORY - MEDICINE [place] [facility] [place] [facility] May 13, 2024 11:00 AM AMBULATORY - MEDICINE [place] [facility] [place] [facility] May 31, 2024 10:00 AM [facility] Jun 03, 2024 12:45 PM AMBULATORY - MEDICINE [facility] [place] [facility] Jun 21, 2024 09:00 AM AMBULATORY - MEDICINE [facility] [place] [facility] Aug 09, 2024 09:00 AM AMBULATORY [facility] Aug 16, 2024 12:00 PM AMBULATORY - NONE [facility] Aug 22, 2024 11:20 AM AMBULATORY - MEDICINE [place] [facility] Aug 24, 2024 11:00 AM AMBULATORY - MEDICINE [facility] Active, Pending, and Scheduled Orders This section includes a listing of several types of active, pending, and scheduled orders, including clinic medications orders, diagnostic test orders, procedure orders and consult orders; where the start date of the order is 45 days before the date of the Encounter or 45 days after the date of theEncounter. The data comes from all [place] treatment facilities. Test Date/Time Test Type Test Details Facility Name Mar 19, 2024 12:00 AM Laboratory - Chemistry Order MICROALBUMIN CREATININE RATIO PANEL URINE (RANDOM) [facility] Mar 19, 2024 12:00 AM Laboratory - Chemistry Order VITAMIN B12 BLOOD (SST-SERUM) [facility] Mar 19, 2024 12:00 AM Laboratory - Chemistry Order VITAMIN D 25-OH (Therapy monitor) BLOOD (SST-SERUM) [facility] Mar 19, 2024 12:00 AM Laboratory - Chemistry Order BASIC METABOLIC PANEL (fasting) BLOOD (SST-SERUM) [facility] Mar 19, 2024 12:00 AM Laboratory - Chemistry Order FOLATE BLOOD (SST-SERUM) [facility] Mar 19, 2024 12:00 AM Laboratory - Chemistry Order LIPID PANEL FASTING BLOOD (SST-SERUM) [facility] Mar 19, 2024 12:00 AM Laboratory - Chemistry Order LIVER FUNCTION BLOOD (SST-SERUM) [facility] Mar 19, 2024 12:00 AM Laboratory - Chemistry Order CBC AND DIFF (AUTO) BLOOD (LAV-BLOOD) [facility] Mar 19, 2024 12:00 AM Laboratory - Chemistry Order HEMOGLOBIN A1C PANEL BLOOD (LAV-BLOOD) [facility] Mar 19, 2024 12:00 AM Laboratory - Chemistry Order TSH BLOOD (SST-SERUM) [facility] Mar 19, 2024 12:00 AM Laboratory - Chemistry Order PSA BLOOD (SST-SERUM) [facility] Advance Directives: All historical and current Section Date Range: From patient's date of to the date document was created. This section includes ALL of a patient's completed or amended [place] Advance and Rescinded Directives. The entries below indicate that a directive exists for the patient, but an actual copy is not included with this document. The data comes from all [place] facilities. Date Advance Directives Provider Source Apr 04, 2024 ADVANCE DIRECTIVE CHAPINCITO DEE [facility] Encounter Notes: All associated encounter notes This section contains the clinical notes associated to the Encounter. Date/Time Encounter Note(s) Provider Source Mar 14, 2024 12:29 PM TELEIMAGING REPORT : LOCAL TITLE: CONSULT-TELEDERMATOLOGY IMAGING REPORT STANDARD TITLE: TELEIMAGING REPORT DATE OF NOTE: MAR 14, 2024@12:29 ENTRY DATE: MAR 14, 2024@12:29:09 AUTHOR: ADRIANNE MELISSA EXP COSIGNER: URGENCY: STATUS: COMPLETED HISTORY: This is a an 79-year-old male with no previous history of skin cancer is consulted for 3 lesions 1 on the chest and 2 on the back for which she has been applying Compound W. OVERALL CONSULT/IMAGE QUALITY: Satisfactory with suggestions for improvement in Use unique descriptors and set of both site B and C being labeled right lower back EXAM: Lesion a is in the mid chest shows a 1 cm brown stuck on appearing papule.Lesion B the most inferior lesion left lower mid back shows a less than 1 cm delgado stuck on papule. Lesion C left lower back shows greater than 1 cm brown filiform stuck on papule. IMPRESSION BASED ON IMAGES AND INFORMATION REVIEWED: PROBLEM A: Diagnosis: Seborrheic Keratosis PROBLEM B: Diagnosis: Seborrheic Keratosis PROBLEM C: Diagnosis: Seborrheic Keratosis RECOMMENDATIONS FOR REFERRING PROVIDER: PROBLEM A - C: Skin Care recommendations: These are all benign lesions no treatment is required would not use Compound W. Other recommendations: If any lesion becomes bothersome with itch or discomfort can be treated with liquid nitrogen. RECOMMENDED FOLLOW-UP: Follow up not required Please inform patient of above Cumulative time of review and management: 5 minutes or more /mariana/ ADRIANNE MELISSA PA-C [facility] Signed: 03/14/2024 12:31 ADRIANNE MELISSA [facility]
--- OUTSIDE RECORDS SUMMARY | 2024-08-30 18:35 | XMS_ITS | Encounter Summary ---
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 Address [address] [place] [id number] Care Team Providers Care Resource Economist Name Role Phone NOLAN VERDUZCO Primary Care [...] Segal's Name Patient's Relationship to Policy Segal [facility] ([facility]) MEDICARE ADVANTAGE [place] IN[place] - [place] Sep 21, 2023 [id number] [phone] MARVIN DUGANI S [facility] ([facility]) MEDICARE ADVANTAGE [facility] ([facility]) Sep 21, 2023 [id number] [phone] DUGAN,GENET S PATIENT HUSKY MEDICAID HUSKY PLAN May 22, 2022 MEDICAI D [id number] DUGAN,GENET S PATIENT MEDICARE ([facility]) MEDICARE (M) PART B May 22, 2022 PART B [id number] DUGAN,GENET S PATIENT MEDICARE ([facility]) MEDICARE (M) PART A Feb 19, 2009 PART A [id number] DUGAN,GENET S PATIENT MEDICARE PART D (WNR) MEDICARE (M) PART D Jul 22, 2022 PART D [id number] [phone] GENET DUGAN S PATIENT [facility] (WNR) MEDICARE ADVANTAGE [facility] (WNR) Sep 21, 2022 [id number] [phone] GENET DUGAN S PATIENT [facility] MCR (WNR) MEDICARE ADVANTAGE [facility] (WNR) Sep 21, 2022 [id number] GENET DUGAN PATIENT Selected Encounter This section includes the information on record at [place] for the Encounter. Date/Time Encounter Type Encounter Description Reason Pro vider Source Mar 14, 2024 12:31 PM Outpatient Encounter EVENT (HISTORICAL) IHE Encounter Template Text not used by [place] Plan of Treatment: Future Appointments (+ 6 months) and Future Tests (+/- 45 days) The Plan of Treatment section includes future care activities for the patient from all [place] treatmentfacilities. This section includes future appointments and future orders which are active, pending or scheduled. Future Appointments This section includes appointments that were scheduled to occur 6 months from the date of the Encounter, up to a maximum of 20 appointments. The data comes from all [place] treatment facilities. Appointment Date/Time Appointment Type Appointme nt Facility Name Mar 18, 2024 09:30 AM AMBULATORY - MEDICINE [place] [facility] [place] [facility] Mar 21, 2024 09:30 AM AMBULATORY - MEDICINE [place] [facility] [place] [facility] Apr 07, 2024 08:30 AM AMBULATORY - MEDICINE [place] [facility] [place] [facility] Apr 15, 2024 02:30 PM AMBULATORY - MEDICINE [place] [facility] [place] [facility] Apr 27, 2024 10:00 AM AMBULATORY - MEDICINE [place] [facility] [place] [facility] May 13, 2024 11:00 AM AMBULATORY - MEDICINE [place] [facility] [place] [facility] May 31, 2024 10:00 AM AMBULATORY - MEDICINE [place] [facility] [place] [facility] Jun 03, 2024 12:45 PM AMBULATORY - MEDICINE [place] [facility] [place] [facility] Jun 21, 2024 09:00 AM AMBULATORY - MEDICINE [place] [facility] [place] [facility] Aug 09, 2024 09:00 AM AMBULATORY - MEDICINE [facility] Aug 16, 2024 12:00 PM [facility] Aug 22, 2024 11:20 AM AMBULATORY - MEDICINE [facility] Aug 24, 2024 11:00 AM [facility] Active, Pending, and Scheduled Orders This section includes a listing of several types of active, pending, and scheduled orders, including clinic medications orders, diagnostic test orders, procedure orders and consult orders; where the start date of the order is 45 days before the date of the Encounter or 45 days after the date of theEncounter. The data comes from all [place] treatment facilities. Test Date/Time Test Type Test Details Facility Name Mar 19, 2024 12:00 AM Laboratory - Chemistry Order MICROALBUMIN CREATININE RATIO PANEL URINE (RANDOM) [facility] Mar 19, 2024 12:00 AM Laboratory - Chemistry Order VITAMIN B12 BLOOD (SST-SERUM) [facility] Mar 19, 2024 12:00 AM Laboratory - Chemistry Order FOLATE BLOOD (SST-SERUM) [facility] Mar 19, 2024 12:00 AM Laboratory - Chemistry Order VITAMIN D 25-OH (Therapy monitor) BLOOD (SST-SERUM) [facility] Mar 19, 2024 12:00 AM Laboratory - Chemistry Order BASIC METABOLIC PANEL (fasting) BLOOD (SST-SERUM) [facility] Mar 19, 2024 12:00 AM Laboratory - Chemistry Order LIPID PANEL FASTING BLOOD (SST-SERUM) [facility] Mar 19, 2024 12:00 AM Laboratory - Chemistry Order LIVER FUNCTION BLOOD (SST-SERUM) [facility] Mar 19, 2024 12:00 AM Laboratory - Chemistry Order CBC AND DIFF (AUTO) BLOOD (LAV-BLOOD) [facility] Mar 19, 2024 12:00 AM Laboratory - Chemistry Order HEMOGLOBIN A1C PANEL BLOOD (LAV-BLOOD) [facility] Mar 19, 2024 12:00 AM Laboratory - Chemistry Order TSH BLOOD (SST-SERUM) [facility] Mar 19, 2024 12:00 AM Laboratory - Chemistry Order PSA BLOOD (SST-SERUM) [facility] Advance Directives: All historical and current Section Date Range: From patient's date of to the date document was created. This section includes ALL of a patient's completed or amended [place] Advance and Rescinded Directives. The entries below indicate that a directive exists for the patient, but an actual copy is not included with this document. The data comes from all [place] facilities. Date Advance Directives Provider Source Apr 04, 2024 [facility] Encounter Notes: All associated encounter notes This section contains the clinical notes associated to the Encounter. Date/Time Encounter Note(s) Provider Source Mar 14, 2024 12:31 PM TELEHEALTH CONSULT : LOCAL TITLE: CONSULT REPORT/TELEDERMATOLOGY IMAGING REQUEST STANDARD TITLE: TELEHEALTH CONSULT DATE OF NOTE: MAR 14, 2024@12:31:58 ENTRY DATE: MAR 14, 2024@12:31:58 AUTHOR: ADRIANNE MELISSA EXP COSIGNER: URGENCY: STATUS: COMPLETED Please refer to Inter-facility Consult for results. Automatically generated note - signature not required. Electronically Filed: 03/14/2024 by: ADRIANNE HYDE [facility]
--- OUTSIDE RECORDS SUMMARY | 2024-08-30 18:35 | XMS_ITS ---
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 Organization [place] Address [address] [place] [id number] Care Team Providers Care Spring Crater Name Role Phone NOLAN VERDUZCO Primary Care [...] Segal's Name Patient's Relationship to Policy Segal [facility] ([facility]) MEDICARE ADVANTAGE [place] INDIV IDUAL - [place] Sep 21, 2023 [id number] [phone] MARVIN [facility]UGANI S [facility]) MEDICARE ADVANTAGE [facility] ([facility]) Sep 21, 2023 [id number] [phone] DUGANMARVINI S PATIENT HUSKY MEDICAID HUSKY PLAN May 22, 2022 MEDICAI D [id number] MARVIN DUGANI S PATIENT MEDICARE ([facility]) MEDICARE () PART B May 22, 2022 PART B [id number] DUGANMARVINI S PATIENT MEDICARE ([facility]) MEDICARE (M) PART A Feb 19, 2009 PART A [id number] DUGAN,GENET S PATIENT MEDICARE PART D (WNR) MEDICARE (M) PART D Jul 22, 2022 PART D [id number] GENET DUGAN S PATIENT [facility] (WNR) MEDICARE ADVANTAGE [facility] (WNR) Sep 21, 2022 [id number] GENET DUGAN S PATIENT [facility] (WNR) MEDICARE ADVANTAGE [facility] (WNR) Sep 21, 2022 [id number] [phone] GENET DUGAN PATIENT Selected Encounter This section includes the information on record at [place] for the Encounter. Date/Time Encounter Type Encounter Description Reason Pro vider Source Mar 02, 2024 10:20 AM Outpatient Encounter PRIMARY CARE/MEDICINE IHE Encounter Template Text not used by [place] Plan of Treatment: Future Appointments (+ 6 months) and Future Tests (+/- 45 days) The Plan of Treatment section includes future care activities for the patient from all [place] treatmentfacilities. This section includes future appointments and future orders which are active, pending or scheduled. Future Appointments This section includes appointments that were scheduled to occur 6 months from the date of the Encounter, up to a maximum of 20 appointments. The data comes from all [place] treatment facilities. Appointment Date/Time Appointment Type Appointme nt Facility Name Mar 10, 2024 09:00 AM AMBULATORY - NONE [facility] [place] [facility] Mar 18, 2024 09:30 AM AMBULATORY - MEDICINE [facility] [place] [facility] Mar 21, 2024 09:30 AM AMBULATORY - MEDICINE [facility] [place] [facility] Apr 07, 2024 08:30 AM AMBULATORY - MEDICINE [facility] [place] [facility] Apr 15, 2024 02:30 PM AMBULATORY - MEDICINE [facility] [place] [facility] Apr 27, 2024 10:00 AM AMBULATORY - MEDICINE [facility] [place] [facility] May 13, 2024 11:00 AM AMBULATORY - MEDICINE [facility] [place] [facility] May 31, 2024 10:00 AM AMBULATORY - MEDICINE [facility] [place] [facility] Jun 03, 2024 12:45 PM AMBULATORY - MEDICINE [facility] [place] [facility] Jun 21, 2024 09:00 AM AMBULATORY - MEDICINE [facility] Aug 09, 2024 09:00 AM AMBULATORY - MEDICINE [place] C [facility] Aug 16, 2024 12:00 PM [facility]BUL[facility]ORY - NONE [facility] Aug 22, 2024 11:20 AM AMBUL[facility] - [facility] Aug 24, 2024 11:00 AM AMBULATORY - MEDICINE [facility] Active, Pending, and Scheduled Orders This section includes a listing of several types of active, pending, and scheduled orders, including clinic medications orders, diagnostic test orders, procedure orders and consult orders; where the start date of the order is 45 days before the date of the Encounter or 45 days after the date of theEncounter. The data comes from all [place] treatment facilities. Test Date/Time Test Type Test Details Facility Name Mar 19, 2024 12:00 AM Laboratory - Chemistry Order MICROALBUMIN CREATININE RATIO PANEL URINE (RANDOM) [facility] Mar 19, 2024 12:00 AM Laboratory - Chemistry Order VITAMIN B12 BLOOD (SST-SERUM) [facility] Mar 19, 2024 12:00 AM Laboratory - Chemistry Order FOLATE BLOOD (SST-SERUM) [facility] Mar 19, 2024 12:00 AM Laboratory - Chemistry Order VITAMIN D 25-OH (Therapy monitor) BLOOD (SST-SERUM) [facility] Mar 19, 2024 12:00 AM Laboratory - Chemistry Order BASIC METABOLIC PANEL (fasting) BLOOD (SST-SERUM) [facility] Mar 19, 2024 12:00 AM Laboratory - Chemistry Order LIPID PANEL FASTING BLOOD (SST-SERUM) [facility] Mar 19, 2024 12:00 AM Laboratory - Chemistry Order CBC AND DIFF (AUTO) BLOOD (LAV-BLOOD) [facility] Mar 19, 2024 12:00 AM Laboratory - Chemistry Order HEMOGLOBIN A1C PANEL BLOOD (LAV-BLOOD) [facility] Mar 19, 2024 12:00 AM Laboratory - Chemistry Order LIVER FUNCTION BLOOD (SST-SERUM) [facility] Mar 19, 2024 12:00 AM Laboratory - Chemistry Order TSH BLOOD (SST-SERUM) [facility] Mar 19, 2024 12:00 AM Laboratory - Chemistry Order PSA BLOOD (SST-SERUM) [facility] Advance Directives: All historical and current Section Date Range: From patient's date of to the date document was created. This section includes ALL of a patient's completed or amended [place] Advance and Rescinded Directives. The entries below indicate that a directive exists for the patient, but an actual copy is not included with this document. The data comes from all [place] facilities. Date Advance Directives Provider Source Apr 04, 2024 ADVANCE DIRECTIVE CHAPINCITO DEE [facility] Encounter Notes: All associated encounter notes This section contains the clinical notes associated to the Encounter. Date/Time Encounter Note(s) Provider Source Mar 02, 2024 10:20 AM PRIMARY CARE NOTE: LOCAL TITLE: WALK-IN NOTE PRIMARY CARE (T) STANDARD TITLE: PRIMARY CARE NOTE DATE OF NOTE: MAR 02, 2024@10:20 ENTRY DATE: MAR 02, 2024@10:20:58 AUTHOR: RADHA ASHTON EXP COSIGNER: URGENCY: STATUS: COMPLETED <====Click to Start Advanced Medical Support presents to the Primary Care clinic with the following request: [ ]Medication Renewal/Refill [ ]Consultation with Team RN [ ]Symptoms [ X ]Other The states they are: [ ]Waiting [ X ]Not Waiting No Walk in visit scheduled with PACT Nurse [ X ] At this encounter the [place]'s demographics were verified. [ X ] At this encounter the 's Insurance information was verified. [ X ] At this encounter the below scheduled visits for the [place] were discussed and appointment reminder card was offered. Future appointments: 03/18/2024 09:30 CWM/SO/PACT 9 NURSING 03/21/2024 09:30 CWM/SO/PACT 9 06/03/2024 12:45 COM CARE-OPHTHALMOLOGY 01/02/2025 10:00 CWM/NO/OPTOMETRY/MERHAR [place] walking in to request medical records to be released to himself in a few days. SURENDRA filled out and sent to [facility] medical record department. /mariana/ RADHA MCINTYRE Signed: 03/02/2024 10:22 RADHA ASHTON
--- OUTSIDE RECORDS SUMMARY | 2024-08-30 18:35 | XMS_ITS | Encounter Summary ---
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 Organization Department of [place] Address [address] [place] [id number] Care Team Providers Care Wind Energy Mechanic Name Role Phone NOALN VERDUZCO Primary Care Provider Unava ilable Insurance [...] Patient's Relationship to Policy Segal [facility] ([facility]) MEDICARE ADVANTAGE [place] Sep 21, 2023 [id number] [phone] [facility]IC[facility] ADVANTAGE [facility] ([facility]) Sep 21, 2023 [id number] [phone] DUGAN,GENET S PATIENT HUSKY MEDICAID HUSKY PLAN May 22, 2022 MEDICAI D [id number] DUGAN,GENET S PATIENT MEDICARE ([facility]) MEDICARE (M) PART B May 22, 2022 PART B [id number] [phone] DUGAN,GENET S PATIENT MEDICARE ([facility]) MEDICARE (M) PART A Feb 19, 2009 PART A [id number] DUGAN,GENET S PATIENT MEDICARE PART D (WNR) MEDICARE (M) PART D Jul 22, 2022 PART D [id number] [phone] GENET DUGAN S PATIENT [facility] (WNR) MEDICARE ADVANTAGE [facility] (WNR) Sep 21, 2022 [id number] [phone] GENET DUGAN S PATIENT [facility] (WNR) MEDICARE ADVANTAGE [facility] (WNR) Sep 21, 2022 [id number] GENET DUGAN PATIENT Selected Encounter This section includes the information on record at [place] for the Encounter. Date/Time Encounter Type Encounter Description Reason Pro vider Source Feb 22, 2024 12:00 AM Outpatient Encounter EVENT (HISTORICAL) IHE Encounter Template Text not used by [place] Plan of Treatment: Future Appointments (+ 6 months) and Future Tests (+/- 45 days) The Plan of Treatment section includes future care activities for the patient from all [place] treatmentfacilities. This section includes future appointments and future orders which are active, pending or scheduled. Future Appointments This section includes appointments that were scheduled to occur 6 months from the date of the Encounter, up to a maximum of 20 appointments. The data comes from all [place] treatment facilities. Appointment Date/Time Appointment Type Appointme nt Facility Name Feb 26, 2024 01:00 PM AMBULATORY - MEDICINE [facility] Feb 26, 2024 01:15 PM AMBULATORY - MEDICINE [facility] Mar 10, 2024 09:00 AM AMBULATORY - NONE [place] [facility] [place] [facility] Mar 18, 2024 09:30 AM AMBULATORY - MEDICINE [place] [facility] [place] [facility] Mar 21, 2024 09:30 AM AMBULATORY - MEDICINE [facility] [place] [facility] Apr 07, 2024 08:30 AM AMBULATORY - MEDICINE [facility] [place] [facility] Apr 15, 2024 02:30 PM AMBULATORY - MEDICINE [facility] [place] [facility] Apr 27, 2024 10:00 AM AMBULATORY - MEDICINE [facility] [place] [facility] May 13, 2024 11:00 AM AMBULATORY - MEDICINE [facility] [place] [facility] May 31, 2024 10:00 AM AMBULATORY - MEDICINE [facility] [place] [facility] Jun 03, 2024 12:45 PM AMBULATORY - MEDICINE [place] [facility] [place] [facility] Jun 21, 2024 09:00 AM AMBULATORY - MEDICINE [place] [facility] [place] [facility] Aug 09, 2024 09:00 AM AMBULATORY - MEDICINE [place] [facility] [facility] Aug 16, 2024 12:00 PM AMBULATORY - [facility]ONE [facility] Aug 22, 2024 11:20 AM AMBULATORY - MEDICINE [place] [facility] Active, Pending, and Scheduled Orders This section includes a listing of several types of active, pending, and scheduled orders, including clinic medications orders, diagnostic test orders, procedure orders and consult orders; where the start date of the order is 45 days before the date of the Encounter or 45 days after the date of theEncounter. The data comes from all [place] treatment facilities. Test Date/Time Test Type Test Details Facility Name Mar 19, 2024 12:00 AM Laboratory - Chemistry Order MICROALBUMIN CREATININE RATIO PANEL URINE (RANDOM) [facility] Mar 19, 2024 12:00 AM Laboratory - Chemistry Order VITAMIN B12 BLOOD (SST-SERUM) [facility] Mar 19, 2024 12:00 AM Laboratory - Chemistry Order FOLATE BLOOD (SST-SERUM) [facility] Mar 19, 2024 12:00 AM Laboratory - Chemistry Order VITAMIN D 25-OH (Therapy monitor) BLOOD (SST-SERUM) [facility] Mar 19, 2024 12:00 AM Laboratory - Chemistry Order BASIC METABOLIC PANEL (fasting) BLOOD (SST-SERUM) [facility] Mar 19, 2024 12:00 AM Laboratory - Chemistry Order LIPID PANEL FASTING BLOOD (SST-SERUM) [facility] Mar 19, 2024 12:00 AM Laboratory - Chemistry Order LIVER FUNCTION BLOOD (SST-SERUM) [facility] Mar 19, 2024 12:00 AM Laboratory - Chemistry Order CBC AND DIFF (AUTO) BLOOD (LAV-BLOOD) [facility] Mar 19, 2024 12:00 AM Laboratory - Chemistry Order HEMOGLOBIN A1C PANEL BLOOD (LAV-BLOOD) [facility] Mar 19, 2024 12:00 AM Laboratory - Chemistry Order TSH BLOOD (SST-SERUM) [facility] Mar 19, 2024 12:00 AM Laboratory - Chemistry Order PSA BLOOD (SST-SERUM) [facility] Advance Directives: All historical and current Section Date Range: From patient's date of to the date document was created. This section includes ALL of a patient's completed or amended [place] Advance and Rescinded Directives. The entries below indicate that a directive exists for the patient, but an actual copy is not included with this document. The data comes from all [place] facilities. Date Advance Directives Provider Source Apr 04, 2024 ADVANCE DIRECTIVE CHAPINCITO DEE [facility] Encounter Notes: All associated encounter notes This section contains the clinical notes associated to the Encounter. Date/Time Encounter Note(s) Provider Source Feb 22, 2024 12:00 AM NONVA NOTE: LOCAL TITLE: NON-VA HOSPITALIZATIONS/ER STANDARD TITLE: NONVA NOTE DATE OF NOTE: FEB 22, 2024 ENTRY DATE: MAR 01, 2024@09:59:29 AUTHOR: ANIBAL SHEARER EXP COSIGNER: URGENCY: STATUS: COMPLETED VistA Imaging - Scanned Document SCANNED DOCUMENT SIGNATURE NOT REQUIRED Electronically Filed: 03/01/2024 by: ANIBAL SHEARER SEGREGATOR ANIBAL SHEARER [facility]
--- OUTSIDE RECORDS SUMMARY | 2024-08-30 18:35 | XMS_ITS ---
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 [place] Address [address] [place] [address] Care Team Providers Care Patent Lawyer Name Role Phone NOLAN VERDUZCO Primary Care [...] Segal's Name Patient's Relationship to Policy Segal [facility] ([facility]) MEDICARE ADVANTAGE CT INDIV IDUAL - [place] Sep 21, 2023 [id number] [phone] MARVIN DUGANI S [facility] MEDIC[facility] ADVANTAGE [facility] ([facility]) Sep 21, 2023 [id number] [phone] DUGAN,GENET S PATIENT HUSKY MEDICAID HUSKY PLAN May 22, 2022 MEDICAI D [id number] DUGAN,GENET S PATIENT MEDICARE (WN) MEDICARE (M) PART B May 22, 2022 PART B [id number] [phone] DUGAN,GENET S PATIENT MEDICARE (WNR) MEDICARE (M) PART A Feb 19, 2009 PART A [id number] DUGAN,GENET S PATIENT MEDICARE PART D (WNR) MEDICARE (M) PART D Jul 22, 2022 PART D [id number] [phone] GENET DUGAN S PATIENT [facility] (WNR) MEDICARE ADVANTAGE [facility] (WNR) Sep 21, 2022 [id number] GENET DUGAN S PATIENT [facility] (WNR) MEDICARE ADVANTAGE [facility] (WNR) Sep 21, 2022 [id number] GENET DUGAN PATIENT Selected Encounter This section includes the information on record at MD for the Encounter. Date/Time Encounter Type Encounter Description Reason Pro vider Source Mar 14, 2024 12:37 PM Outpatient Encounter ADMIN PAT ACTIVTIES (MASNONCT) IHE Encounter Template Text not used by MD Plan of Treatment: Future Appointments (+ 6 months) and Future Tests (+/- 45 days) The Plan of Treatment section includes future care activities for the patient from all [place] treatmentfacilities. This section includes future appointments and future orders which are active, pending or scheduled. Future Appointments This section includes appointments that were scheduled to occur 6 months from the date of the Encounter, up to a maximum of 20 appointments. The data comes from all [place] treatment facilities. Appointment Date/Time Appointment Type Appointme nt Facility Name Mar 18, 2024 09:30 AM AMBULATORY - MEDICINE [place] [facility] [place] [facility] Mar 21, 2024 09:30 AM AMBULATORY - MEDICINE [facility] [place] [facility] Apr 07, 2024 08:30 AM AMBULATORY - MEDICINE MD C [facility] [facility] Apr 15, 2024 02:30 PM AMBULATORY - MEDICINE MD C [facility] [place] [facility] Apr 27, 2024 10:00 AM AMBULATORY - MEDICINE MD C [facility] [place] [facility] May 13, 2024 11:00 AM AMBULATORY - MEDICINE [place] [facility] [place] [facility] May 31, 2024 10:00 AM AMBULATORY - MEDICINE MD [facility] [place] [facility] Jun 03, 2024 12:45 PM AMBULATORY - MEDICINE [place] [facility] [place] [facility] Jun 21, 2024 09:00 AM AMBULATORY - MEDICINE [place] [facility] [place] [facility] Aug 09, 2024 09:00 AM AMBULATORY - MEDICINE MD C [facility] Aug 16, 2024 12:00 PM AMBULATORY - NONE [facility] Aug 22, 2024 11:20 AM AMBULATORY - MEDICINE [facility] Aug 24, 2024 11:00 AM AMBULATORY - [...] of theEncounter. The data comes from all [place] treatment facilities. Test Date/Time Test Type Test Details Facility Name Mar 19, 2024 12:00 AM Laboratory - Chemistry Order MICROALBUMIN CREATININE RATIO PANEL URINE (RANDOM) [facility] Mar 19, 2024 12:00 AM Laboratory - Chemistry Order VITAMIN B12 BLOOD (SST-SERUM) [facility] Mar 19, 2024 12:00 AM Laboratory - Chemistry Order FOLATE BLOOD (SST-SERUM) [facility] Mar 19, 2024 12:00 AM Laboratory - Chemistry Order VITAMIN D 25-OH (Therapy monitor) BLOOD (SST-SERUM) [facility] Mar 19, 2024 12:00 AM Laboratory - Chemistry Order BASIC METABOLIC PANEL (fasting) BLOOD (SST-SERUM) [facility] Mar 19, 2024 12:00 AM Laboratory - Chemistry Order LIPID PANEL FASTING BLOOD (SST-SERUM) [facility] Mar 19, 2024 12:00 AM Laboratory - Chemistry Order LIVER FUNCTION BLOOD (SST-SERUM) [facility] Mar 19, 2024 12:00 AM Laboratory - Chemistry Order CBC AND DIFF (AUTO) BLOOD (LAV-BLOOD) [facility] Mar 19, 2024 12:00 AM Laboratory - Chemistry Order HEMOGLOBIN A1C PANEL BLOOD (LAV-BLOOD) [facility] Mar 19, 2024 12:00 AM Laboratory - Chemistry Order TSH BLOOD (SST-SERUM) [facility] Mar 19, 2024 12:00 AM Laboratory - Chemistry Order PSA BLOOD (SST-SERUM) [facility] Advance Directives: All historical and current Section Date Range: From patient's date of to the date document was created. This section includes ALL of a patient's completed or amended [place] Advance and Rescinded Directives. The entries below indicate that a directive exists for the patient, but an actual copy is not included with this document. The data comes from all [place] facilities. Date Advance Directives Provider Source Apr 04, 2024 ADV[facility] Encounter Notes: All associated encounter notes This section contains the clinical notes associated to the Encounter. Date/Time Encounter Note(s) Provider Source Mar 16, 2024 09:29 AM ADDENDUM: LOCAL TITLE: Addendum STANDARD TITLE: ADDENDUM DATE OF NOTE: MAR 16, 2024@09:29:21 ENTRY DATE: MAR 16, 2024@09:29:21 AUTHOR: ODALIS COWART EXP COSIGNER: URGENCY: STATUS: COMPLETED DERM CHILD CENTER ASSISTANT - Please notify that the TeleDerm images and report reveal benign (non-cancerous) lesions called seborrheic keratoses. No further intervention is required. /mariana/ ODALIS COWART DNP, MAINTENANCE PIPEFITTER-C NURSE PRACTITIONER Signed: 03/16/2024 09:29 Receipt Acknowledged By: 03/16/2024 12:35 /mariana/ KUSH REED LPN CHILD CENTER ASSISTANT --- Original Document --- 03/14/24 PATIENT NOTIFICATION TELEHEALTH RESULTS: Provider, please note dx and treatment recommendations for this patient imaged on 03/10/2024 Requesting Provider is responsible for recommended treatment or procedures and patient notification within 7 to 14 days. Thank you REMOTE RESULTS KETTY Document from: [facility] Associated on: Mar 14, 2024@12:31:58 LOCAL TITLE: CONSULT-TELEDERMATOLOGY IMAGING REPORT STANDARD TITLE: [...] MELISSA PA-C DERMATOLOGY CLINIC Signed: 03/14/2024 12:31 END OF REMOTE RESULTS /mariana/ NELL POSADA TELEHEALTH CLINICAL TECHNIAN (TCT) Signed: 03/14/2024 13:01 Receipt Acknowledged By: 03/16/2024 09:29 /es/ ODALIS COWART DNP, MAINTENANCE PIPEFITTER-C NURSE PRACTITIONER * AWAITING SIGNATURE * NOLAN VERDUZCO 03/14/2024 14:01 /es/ OUMAR MOOREN,RN-BC REGISTERED NURSE (RN) ODALIS COWART ANGUILLA Mar 14, 2024 12:37 PM TELEHEALTH NOTE: LOCAL TITLE: PATIENT NOTIFICATION TELEHEALTH RESULTS STANDARD TITLE: TELEHEALTH NOTE DATE OF NOTE: MAR 14, 2024@12:37 ENTRY DATE: MAR 14, 2024@12:38:12 AUTHOR: NELL POSADA EXP COSIGNER: URGENCY: STATUS: COMPLETED PATIENT NOTIFICATION TELEHEALTH RESULTS Has ADDENDA Provider, please note dx and treatment recommendations for this patient imaged on 03/10/2024 Requesting Provider is responsible for recommended treatment or procedures and patient notification within 7 to 14 days. Thank you REMOTE RESULTS KETTY Document from: [facility] Associated on: Mar 14, 2024@12:31:58 LOCAL TITLE: CONSULT-TELEDERMATOLOGY IMAGING REPORT STANDARD TITLE: [...] MELISSA PA-C DERMATOLOGY CLINIC Signed: 03/14/2024 12:31 END OF REMOTE RESULTS /mariana/ NELL POSADA TELEHEALTH CLINICAL TECHNIAN (TCT) Signed: 03/14/2024 13:01 Receipt Acknowledged By: 03/16/2024 09:29 /mariana/ ODALIS COWART DNP, ARYAN-C NURSE PRACTITIONER * AWAITING SIGNATURE * NOLAN VERDUZCO 03/14/2024 14:01 /mariana/ OUMAR MOOREN,RN-BC REGISTERED NURSE (RN) 03/16/2024 ADDENDUM STATUS: COMPLETED DERM CHILD CENTER ASSISTANT - Please notify that the TeleDerm images and report reveal benign (non-cancerous) lesions called seborrheic keratoses. No further intervention is required. /mariana/ ODALIS COWART DNP, ARYAN-C NURSE PRACTITIONER Signed: 03/16/2024 09:29 Receipt Acknowledged By: 03/16/2024 12:35 /mariana/ KUSH REED LPN LPN 03/16/2024 ADDENDUM STATUS: COMPLETED notified of telederm results. Non cancerous lesion with no treatment needeed. [place] understood and has clinic contact information for any concerns. /viky REED LPN LPN Signed: 03/16/2024 12:36 NELL POSADA
--- OUTSIDE RECORDS SUMMARY | 2024-08-30 18:35 | XMS_ITS | Encounter Summary ---
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 Address [address] [place] [id number] Care Team Providers Care Apprentice Embalmer Name Role Phone NOLAN VERDUZCO Primary Care [...] Name Patient's Relationship to Policy Segal [facility] ([facility]) MEDICARE ADVANTAGE [place] Sep 21, 2023 [id number] [phone] GENET DUGAN S PATIENT [facility] ([facility]) MEDICARE [facility] ([facility]) Sep 21, 2023 [id number] [phone] GENET DUGAN S PATIENT HUSKY MEDICAID HUSKY PLAN May 22, 2022 MEDICAI D [id number] GENET DUGAN S PATIENT MEDICARE ([facility]) MEDICARE () PART B May 22, 2022 PART B [id number] [id number] [phone] GENET DUGAN S PATIENT MEDICARE ([facility]) MEDICARE () PART A Feb 19, 2009 PART A [id number] GENET DUGAN S PATIENT MEDICARE PART D (WNR) MEDICARE (M) PART D Jul 22, 2022 PART D [id number] [phone] GENET DUGAN S PATIENT [facility] (WNR) MEDICARE ADVANTAGE [facility] (WNR) Sep 21, 2022 [id number] GENET DUGAN S PATIENT [facility] (WNR) MEDICARE ADVANTAGE [facility] (WNR) Sep 21, 2022 [id number] [phone] GENET DUGAN PATIENT Selected Encounter This section includes the information on record at [place] for the Encounter. Date/Time Encounter Type Encounter Description Reason Provider Source Mar 10, 2024 09:00 AM UNLISTED SPEC DERM SVC/PX DERMATOLOGY ICD-10-CM Z13.89 Encounter for screening for other disorder CAMILA POSADA [place] Encounter Template Text not used by [place] Assessments - Encounter Diagnoses This section includes the primary and secondary diagnoses documented for the Encounter. Date/Time Primary/Secondary Diagnosis Diagnosis Name Provider Source Mar 10, 2024 03:13 PM PRIMARY Encounter for screening for other disorder RIZWAN POSADA Plan of Treatment: Future Appointments (+ 6 months) and Future Tests (+/- 45 days) The Plan of Treatment section includes future care activities for the patient [facility] This section includes future appointments and future orders which are active, pending or scheduled. Future Appointments This section includes appointments that were scheduled to occur 6 months from the date of the Encounter, up to a maximum of 20 appointments. The data comes from all [place] treatment facilities. Appointment Date/Time Appointment Type Appointme nt Facility Name Mar 18, 2024 09:30 AM AMBULATORY - [place]ICINE [place] [facility] [place] [facility] Mar 21, 2024 09:30 AM AMBULATORY - MEDICINE [place] [facility] [place] [facility] Apr 07, 2024 08:30 AM AMBULATORY [facility] MEDICINE [facility] [place] [facility] Apr 15, 2024 02:30 PM AMBULATORY - MEDICINE [facility] [place] [facility] Apr 27, 2024 10:00 AM AMBULATORY - MEDICINE [facility] [place] [facility] May 13, 2024 11:00 AM AMBULATORY - MEDICINE [place] [facility] [facility] May 31, 2024 10:00 AM AMBULATORY - MEDICINE [facility] [place] [facility] Jun 03, 2024 12:45 PM AMBULATORY - MEDICINE [facility] [facility] Jun 21, 2024 09:00 AM AMBULATORY - MEDICINE [facility] [place] [facility] Aug 09, 2024 09:00 AM AMBULATORY - MEDICINE [facility] [place] [facility] Aug 16, 2024 12:00 PM [facility] Aug 22, 2024 11:20 AM [facility] [place]ICINE [place] [facility] [facility] Aug 24, 2024 11:00 AM AMBULATORY [...] of theEncounter. The data comes from all [place] treatment facilities. Test Date/Time Test Type Test Details Facility Name Mar 19, 2024 12:00 AM Laboratory - Chemistry Order VITAMIN B12 BLOOD (SST-SERUM) [facility] Mar 19, 2024 12:00 AM Laboratory - Chemistry Order MICROALBUMIN CREATININE RATIO PANEL URINE (RANDOM) [facility] Mar 19, 2024 12:00 AM Laboratory - Chemistry Order FOLATE BLOOD (SST-SERUM) [facility] Mar 19, 2024 12:00 AM Laboratory - Chemistry Order VITAMIN D 25-OH (Therapy monitor) BLOOD (SST-SERUM) [facility] Mar 19, 2024 12:00 AM Laboratory - Chemistry Order BASIC METABOLIC PANEL (fasting) BLOOD (SST-SERUM) [facility] Mar 19, 2024 12:00 AM Laboratory - Chemistry Order LIPID PANEL FASTING BLOOD (SST-SERUM) [facility] Mar 19, 2024 12:00 AM Laboratory - Chemistry Order LIVER FUNCTION BLOOD (SST-SERUM) [facility] Mar 19, 2024 12:00 AM Laboratory - Chemistry Order HEMOGLOBIN A1C PANEL BLOOD (LAV-BLOOD) [facility] Mar 19, 2024 12:00 AM Laboratory - Chemistry Order CBC AND DIFF (AUTO) BLOOD (LAV-BLOOD) [facility] Mar 19, 2024 12:00 AM Laboratory - Chemistry Order TSH BLOOD (SST-SERUM) [facility] Mar 19, 2024 12:00 AM Laboratory - Chemistry Order PSA BLOOD (SST-SERUM) [facility] Social History: Smoking Status (Most current) and Tobacco Use (All prior to encounter date) This section includes the most current, and the historical, smoking and tobacco- related health factors from the [place] facility where the Encounter took place. Current Smoking Status This section includes the most current smoking, or tobacco-related health factor, from the [place] facility where the Encounter took place. Date/Time Current Smoking Status Comment Facil ity Jun 23, 2023 09:00 AM VA-TOBACCO FORMER USER [place] Tobacco Use History This section includes a history of the smoking, or tobacco-related health factors, that were collected on or before the date of the Encounter. The data comes from the [place] facility where the Encounter took place. Date/Time Smoking Status/Tobacco Use Comment F acility Jun 23, 2023 09:00 AM VA-TOBACCO QUIT 15 YRS OR MORE [place] May 01, 2022 01:30 PM VA-TOBACCO FORMER USER [place] May 01, 2022 01:30 PM VA-TOBACCO QUIT 15 YRS OR MORE [place] Apr 15, 2021 03:00 PM VA-TOBACCO FORMER USER [place] Apr 15, 2021 03:00 PM VA-TOBACCO QUIT 15 YRS OR MORE [place] Oct 20, 2018 12:53 PM VA-TOBACCO FORMER USER [place] Oct 20, 2018 12:53 PM VA-TOBACCO QUIT 15 YRS OR MORE [place] Jul 03, 2017 10:33 AM QUIT TOBACCO USE > 7 YEARS AGO quit 25yrs ago [place] February 13, 2016 08:46 AM LIFETIME NON-TOBACCO USER [place] Advance Directives: All historical and current Section Date Range: From patient's date of to the date document was created. This section includes ALL of a patient's completed or amended [place] Advance and Rescinded Directives. The entries below indicate that a directive exists for the patient, but an actual copy is not included with this document. The data comes from all [place] facilities. Date Advance Directives Provider Source Apr 04, 2024 ADVANCE DIRECTIVE CHAPINCITO DEE [facility] Encounter Notes: All associated encounter notes This section contains the clinical notes associated to the Encounter. Date/Time Encounter Note(s) Provider Source Mar 10, 2024 02:49 PM TELEHEALTH CONSULT : LOCAL TITLE: CONSULT REPORT/TELEDERMATOLOGY IMAGING REQUEST STANDARD TITLE: TELEHEALTH CONSULT DATE OF NOTE: MAR 10, 2024@14:49 ENTRY DATE: MAR 10, 2024@14:49:57 AUTHOR: NELL POSADA EXP COSIGNER: URGENCY: STATUS: COMPLETED Teledermatology Consult Request The patient was educated regarding the Teledermatology process at this encounter. Comment: Patient Educated on telederm process verbalizes understanding. Patient DOES consent to have images taken, viewed, and interpreted using the Teledermatology process. This consult addresses: A new condition Images were acquired: In clinic HISTORY: Prior skin history: None reported Have you had a skin cancer before? None Reported Patient reports no family history of melanoma. Taking new med/supplements: None reported Immunosuppression history: None reported Other significant history: Yes I have prostate CA. Chief Complaint: 3 suspicious skin lesions. PROBLEM A LOCATION(S): Trunk: Mid Chest DURATION: About 2 years Ago SYMPTOMS: No Symptoms, i just felt the bump on my chest CHANGES: Size:Bigger in size when it first started but i used Compound W on, which reduce the size TREATMENT: Yes Details: Compound W BIOPSY: No PROBLEM B: LOCATION(S): Trunk:Lower Back ([place]) DURATION: About 2 Months Ago SYMPTOMS: No Symptoms CHANGES: Size TREATMENT: Yes Details: Compound W BIOPSY: No PROBLEM C: LOCATION(S): Trunk: Lower Back ([place]) DURATION: About 2 Months Ago SYMPTOMS: No Symptoms CHANGES: None TREATMENT: Yes Details: Compound W BIOPSY: No Principal Quality Engineer's comments: Imaged per provider's direction and facility protocol. /mariana/ NELL POSADA TELEHEALTH CLINICAL TECHNIAN (TCT) Signed: 03/10/2024 15:23 NELL POSADA [place]
--- OUTSIDE RECORDS SUMMARY | 2024-08-30 18:36 | XMS_ITS ---
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 Address [address] [place] [id number] Care Team Providers Care Machine Riveter Name Role Phone NOLAN VERDUZCO Primary Care [...] Segal's Name Patient's Relationship to Policy Segal [facility] ([facility]) MEDICARE ADVANTAGE [place] Sep 21, 2023 [id number] [phone] MARVIN DUGANI S [facility]) MEDICARE ADVANTAGE [facility] ([facility]) Sep 21, 2023 [id number] [phone] DUGANMARVINI S PATIENT HUSKY MEDICAID HUSKY PLAN May 22, 2022 MEDICAI D [id number] MARVIN DUGANI S PATIENT MEDICARE ([facility]) MEDICARE () PART B May 22, 2022 PART B [id number] DUGANMARVINI S PATIENT MEDICARE ([facility]) MEDICARE (M) PART A Feb 19, 2009 PART A [id number] DGUAN,GENET S PATIENT MEDICARE PART D (WNR) MEDICARE (M) PART D Jul 22, 2022 PART D [id number] GENET DUGAN S PATIENT [facility] (WNR) MEDICARE ADVANTAGE [facility] (WNR) Sep 21, 2022 [id number] [phone] GENET DUGAN S PATIENT [facility] (WNR) MEDICARE ADVANTAGE [facility] (WNR) Sep 21, 2022 [id number] GENET DUAGN PATIENT Selected Encounter This section includes the information on record [place] for the Encounter. Date/Time Encounter Type Encounter Description Reason Pro vider Source Mar 21, 2024 12:00 PM Outpatient Encounter COMMUNITY CARE CONSULT [...] Date/Time Appointment Type Appointme nt Facility Name Apr 07, 2024 08:30 AM AM[place]ULATORY [place] [facility] [place] [facility] Apr 15, 2024 02:30 PM AMBULATORY - MEDICINE [place] [facility] [place] [facility] Apr 27, 2024 10:00 AM AMBULATORY - MEDICINE [place] [facility] [place] [facility] May 13, 2024 11:00 AM AMBULATORY - MEDICINE [place] [facility] [place] [facility] May 31, 2024 10:00 AM AMBULATORY - MEDICINE [place] [facility] [place] [facility] Jun 03, 2024 12:45 PM AMBULATORY - MEDICINE [place] [facility] [place] [facility] Jun 21, 2024 09:00 AM AMBULATORY - MEDICINE [place] [facility] [place] [facility] Aug 09, 2024 09:00 AM AMBULATORY - MEDICINE [place] [facility] [place] [facility] Aug 16, 2024 12:00 PM AMBULATORY - NONE [facility] [place] [facility] Aug 22, 2024 11:20 AM AM[facility]ULATORY - MEDICINE [facility] Aug 24, 2024 11:00 AM AMBULATORY - MEDICINE [facility] Active, Pending, and Scheduled Orders This section includes a listing of several types of active, pending, and scheduled orders, including clinic medications orders, diagnostic test orders, procedure orders and consult orders; where the start date of the order is 45 days before the date of the Encounter or 45 days after the date of theEncounter. The data comes from all [place] treatment facilities. Test Date/Time Test Type Test Details Facility Name Mar 19, 2024 12:00 AM Laboratory - Chemistry Order MICROALBUMIN CREATININE RATIO PANEL [facility] ([facility]ANDOM[facility] Mar 19, 2024 12:00 AM Laboratory - Chemistry Order FOLATE BLOOD (SST-SERUM) [facility] Mar 19, 2024 12:00 AM Laboratory - Chemistry Order VITAMIN B12 BLOOD (SST-SERUM) [facility] Mar 19, 2024 12:00 AM Laboratory - Chemistry Order VITAMIN D 25-OH (Therapy monitor) BLOOD (SST-SERUM) [facility] Mar 19, 2024 12:00 AM Laboratory - Chemistry Order BASIC METABOLIC PANEL (fasting) BLOOD (SST-SERUM) [facility] Mar 19, 2024 12:00 AM Laboratory - Chemistry Order LIPID PANEL FASTING BLOOD (SST-SERUM) [facility] Mar 19, 2024 12:00 AM Laboratory - Chemistry Order LIVER FUNCTION BLOOD (SST-SERUM) [facility] Mar 19, 2024 12:00 AM Laboratory - Chemistry Order HEMOGLOBIN A1C PANEL BLOOD (LAV-BLOOD) [facility] Mar 19, 2024 12:00 AM Laboratory - Chemistry Order CBC AND DIFF (AUTO) [facility]LO[facility] ([facility]BLOOD[facility] Mar 19, 2024 12:00 AM Laboratory - Chemistry Order PSA BLOOD (SST-SERUM) [facility] Mar 19, 2024 12:00 AM Laboratory - Chemistry Order TSH BLOOD (SST-SERUM) [facility] [place] [facility] Vital Signs: All taken on the encounter date This section contains inpatient and outpatient Vital Signs collected on the date of the Encounter. Date/Time Temperature Pulse Blood Pressure Respiratory Rate SP02 Pain Height Weight Body Mass Index Source Mar 21, 2024 09:53 AM 96.7 85 103/65 20 96 0 70 186 27 [place] [facility] Advance Directives: All historical and current Section Date Range: From patient's date of to the date document was created. This section includes ALL of a patient's completed or amended [place] Advance and Rescinded Directives. The entries below indicate that a directive exists for the patient, but an actual copy is not included with this document. The data comes from all [place] facilities. Date Advance Directives Provider Source Apr 04, 2024 ADVANCE DIRECTIVE CHAPINCITO DEE [facility] Encounter Notes: All associated encounter notes This section contains the clinical notes associated to the Encounter. Date/Time Encounter Note(s) Provider Source Mar 21, 2024 12:00 PM NONVA NOTE: LOCAL TITLE: [facility] CARE COORD PLAN STANDARD TITLE: NONVA NOTE DATE OF NOTE: MAR 21, 2024@12:00 ENTRY DATE: MAR 21, 2024@12:00:58 AUTHOR: IKE BRODY EXP COSIGNER: URGENCY: STATUS: COMPLETED Emergency Notification Intake Date Presenting to the Facility: Feb Method of Contact: Notified from ECR worklist Notification ID: [id number] [facility] Referral #: [facility] Name: Hospital: [facility] Address: City: [place] State: [place] Zip Code: Phone : [facility] Point of Contact: Name: Phone: Chief complaint: Unable to urinate Primary Diagnosis: Disposition Unknown at time of intake note entry /mariana/ IKE MCINTYRE Signed: 03/21/2024 12:02 Receipt Acknowledged By: 03/31/2024 16:47 /es/ NOLAN VERDUZCO MD PHYSICIAN 03/21/2024 12:54 /es/ WAGNER MOORE,RN-BC REGISTERED NURSE (RN) IKE BRODY [place]
--- OUTSIDE RECORDS SUMMARY | 2024-08-30 18:36 | XMS_ITS | Encounter Summary ---
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 Organization [place] Address [address] [place] [address] Care Team Providers Care Securities Attorney Name Role Phone NOLAN VERDUZCO Primary Care [...] Segal's Name Patient's Relationship to Policy Segal [facility] ([facility]) MEDICARE ADVANTAGE [place] Sep 21, 2023 [id number] [phone] MARVIN [facility]UGANI S [facility]) MEDICARE ADVANTAGE [facility] ([facility]) Sep 21, 2023 [id number] [phone] DUGANMARVINI S PATIENT [place] MEDICAID H[place]KY PLAN May 22, 2022 MEDICAI D [id number] MARVIN DUGANI S PATIENT MEDICARE ([facility]) MEDICARE () PART B May 22, 2022 PART B [id number] RE14 [phone] DUGANMARVINI S PATIENT MEDICARE ([facility]) MEDICARE (M) PART A Feb 19, 2009 PART A [id number] DUGAN,GENET S PATIENT MEDICARE PART D (WNR) MEDICARE (M) PART D Jul 22, 2022 PART D [id number] [phone] GENET DUGAN S PATIENT [facility] (WNR) MEDICARE ADVANTAGE [facility] (WNR) Sep 21, 2022 [id number] GENET DUGAN S PATIENT [facility] (WNR) MEDICARE ADVANTAGE [facility] (WNR) Sep 21, 2022 [id number] GENET DUGAN PATIENT Selected Encounter This section includes the information on record at [place] for the Encounter. Date/Time Encounter Type Encounter Description Reason Pro vider Source Apr 04, 2024 01:36 PM Outpatient Encounter PRIMARY CARE/MEDICINE [facility] Encounter [...] 07, 2024 08:30 AM AM[place]ULATORY - [place]ICINE [place] [facility] Apr 15, 2024 02:30 PM AMBULATORY [place]ICINE [place] [facility] Apr 27, 2024 10:00 AM AMBULATORY - [place]ICINE [place] [facility] May 13, 2024 11:00 AM AMBULATORY - MEDICINE [place] [facility] May 31, 2024 10:00 AM AMBULATORY - MEDICINE [place] [facility] Jun 03, 2024 12:45 PM AMBULATORY - MEDICINE [place] [facility] Jun 21, 2024 09:00 AM AMBULATORY - MEDICINE [place] [facility] Aug 09, 2024 09:00 AM AMBULATORY - MEDICINE [place] [facility] Aug 16, 2024 12:00 PM AMBULATORY - NONE [place] [facility] [place] [facility] Aug 22, 2024 11:20 AM [facility] Aug 24, 2024 11:00 AM AMBULATORY - MEDICINE [facility] Active, Pending, and Scheduled Orders This section includes a listing of several types of active, pending, and scheduled orders, including clinic medications orders, diagnostic test orders, procedure orders and consult orders; where the start date of the order is 45 days before the date of the Encounter or 45 days after the date of theEncounter. The data comes from all [place] treatment facilities. Test Date/Time Test Type Test Details Facility Name Mar 19, 2024 12:00 AM Laboratory - Chemistry Order MICROALBUMIN CREATININE RATIO PANEL URINE (RANDOM) [facility] Mar 19, 2024 12:00 AM Laboratory - Chemistry Order VITAMIN B12 BLOOD (SST-SERUM) [facility] Mar 19, 2024 12:00 AM Laboratory - Chemistry Order FOLATE BLOOD (SST-SERUM) [facility] Mar 19, 2024 12:00 AM Laboratory - Chemistry Order VITAMIN D 25-OH (Therapy monitor) BLOOD (SST-SERUM) [facility] Mar 19, 2024 12:00 AM Laboratory - Chemistry Order BASIC METABOLIC PANEL (fasting) BLOOD (SST-SERUM) [facility] Mar 19, 2024 12:00 AM Laboratory - Chemistry Order LIPID PANEL FASTING BLOOD (SST-SERUM) [facility] Mar 19, 2024 12:00 AM Laboratory - Chemistry Order LIVER FUNCTION BLOOD (SST-SERUM) [facility] Mar 19, 2024 12:00 AM Laboratory - Chemistry Order CBC AND DIFF (AUTO) BLOOD (LAV-BLOOD) [facility] Mar 19, 2024 12:00 AM Laboratory - Chemistry Order HEMOGLOBIN A1C PANEL BLOOD (LAV-BLOOD) [facility] Mar 19, 2024 12:00 AM Laboratory - Chemistry Order TSH BLOOD (SST-SERUM) [facility] Mar 19, 2024 12:00 AM Laboratory - Chemistry Order PSA BLOOD (SST-SERUM) [facility] [place] [facility] Advance Directives: All historical and current [...] Apr 04, 2024 ADVANCE DIRECTIVE CHAPINCITO DEE [facility] Encounter Notes: All associated encounter notes This section contains the clinical notes associated to the Encounter. Date/Time Encounter Note(s) Provider Source Apr 04, 2024 01:54 PM ADVANCE DIRECTIVE: LOCAL TITLE: ADVANCE DIRECTIVE STANDARD TITLE: ADVANCE DIRECTIVE DATE OF NOTE: APR 04, 2024@13:54 ENTRY DATE: APR 04, 2024@13:54:44 AUTHOR: CHAPINCITO DEE EXP COSIGNER: URGENCY: STATUS: COMPLETED * [X]Advance Directive executed with . [ ]Patient brought in his/her own Advance Directive. Scanned Advance Directive or Advance Directive/AOD Flowsheet is located in [email or web address]. /mariana/ CHAPINCITO MCINTYRE Signed: 04/04/2024 13:54 CHAPINCITO DEE Apr 04, 2024 01:54 PM CLINICAL WARNING: LOCAL TITLE: COMMUNICATION AUTHORIZATION STANDARD TITLE: CLINICAL WARNING DATE OF NOTE: APR 04, 2024@13:54 ENTRY DATE: APR 04, 2024@13:55:06 AUTHOR: CHAPINCITO DEE EXP COSIGNER: URGENCY: STATUS: COMPLETED Family/Caregiver Name: Primary: LEI AGUSTIN Secondary: Tertiary: Authorized Clinic & Topics: All Clinic's & Topics: All Care/Coordination Primary Care: Mental Health: Specialty Care: [id number] Protected Info: [X] Drug Abuse [X] Alcohol Abuse [X] HIV [X] Sickle Cell Expiration: Date: [ ] At [X] Through [ ] At end of care /mariana/ CHAPINCITO MCINTYRE Signed: 04/04/2024 13:57 CHAPINCITO DEE
--- OUTSIDE RECORDS SUMMARY | 2024-08-30 18:36 | XMS_ITS | Encounter Summary ---
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 Address [address] [place] [id number] Care Team Providers Care Farm Contractor Buyer Name Role Phone NOLAN VERDUZCO Primary Care [...] Segal's Name Patient's Relationship to Policy Segal [facility] ([facility]) MEDICARE ADVANTAGE [place] IN[place] - [place] Sep 21, 2023 [id number] [phone] MARVIN DUGANI S [facility]IC[facility] ADVANTAGE [facility] ([facility]) Sep 21, 2023 [id number] [phone] DUGAN,GENET S PATIENT HUSKY MEDICAID HUSKY PLAN May 22, 2022 MEDICAI D [id number] DUGAN,GENET S PATIENT MEDICARE ([facility]) MEDICARE (M) PART B May 22, 2022 PART B [id number] DUGAN,GENET S PATIENT MEDICARE ([facility]) MEDICARE (M) PART A Feb 19, 2009 PART A [id number] [id number] [phone] DUGAN,GENET S PATIENT MEDICARE PART D (WNR) MEDICARE (M) PART D Jul 22, 2022 PART D [id number] GENET DUGAN S PATIENT [facility] (WNR) MEDICARE ADVANTAGE [facility] (WNR) Sep 21, 2022 [id number] [phone] GENET DUGAN S PATIENT [facility] (WNR) MEDICARE ADVANTAGE [facility] (WNR) Sep 21, 2022 [id number] GENET DUGAN PATIENT Selected Encounter This section includes the information on record at [place] for the Encounter. Date/Time Encounter Type Encounter Description Reason Pro vider Source January 28, 2024 12:00 AM Outpatient Encounter EVENT (HISTORICAL) IHE Encounter Template Text not used by [place] Plan of Treatment: Future Appointments (+ 6 months) and Future Tests (+/- 45 days) The Plan of Treatment section includes future care activities for the patient from all [place] treatmentfacilities. This section includes future appointments and future orders which are active, pending or scheduled. Future Appointments This section includes appointments that were scheduled to occur 6 months from the date of the Encounter, up to a maximum of 20 appointments. The data comes from all [place] treatment facilities. Appointment Date/Time Appointment Type Appointme nt Facility Name Feb 26, 2024 01:00 PM [facility] Feb 26, 2024 01:15 PM AMBULATORY - MEDICINE [facility] Mar 10, 2024 09:00 AM AMBULATORY - NONE [place] [facility] [facility] Mar 18, 2024 09:30 AM AMBULATORY - MEDICINE [place] [facility] Mar 21, 2024 09:30 AM AMBULATORY - MEDICINE [place] [facility] Apr 07, 2024 08:30 AM [...] 03, 2024 12:45 PM AMBULATORY - MEDICINE [facility] W[facility] Jun 21, 2024 09:00 AM AMBULATORY - MEDICINE [facility] Advance Directives: All historical and current Section Date Range: From patient's date of to the date document was created. This section includes ALL of a patient's completed or amended [place] Advance and Rescinded Directives. The entries below indicate that a directive exists for the patient, but an actual copy is not included with this document. The data comes from all [place] facilities. Date Advance Directives Provider Source Apr 04, 2024 AD[facility] Encounter Notes: All associated encounter notes This section contains the clinical notes associated to the Encounter. Date/Time Encounter Note(s) Provider Source January 28, 2024 12:00 AM NONVA NOTE: LOCAL TITLE: NON-VA OUTPATIENT NOTES STANDARD TITLE: NONVA NOTE DATE OF NOTE: JANUARY 28, 2024 ENTRY DATE: APR 14, 2024@15:27 AUTHOR: MG PINEDA EXP COSIGNER: URGENCY: STATUS: COMPLETED VistA Imaging - Scanned Document SCANNED DOCUMENT SIGNATURE NOT REQUIRED Electronically Filed: 04/14/2024 by: MG AYON [place] [facility]
--- OUTSIDE RECORDS SUMMARY | 2024-08-30 18:36 | XMS_ITS | Encounter Summary ---
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 Address [address] [place] [address] Care Team Providers Care Terra Cotta Setter Name Role Phone NOLAN VERDUZCO Primary [...] Segal's Name Patient's Relationship to Policy Segal [facility] ([facility]) MEDICARE AD[place]ANTAGE [place] Sep 21, 2023 [id number] [phone] GENET DUGAN S PATIENT AETNA [facility] ([facility]) MEDICARE [facility] ([facility]) Sep 21, 2023 [id number] A [id number] [phone] GENET DUGAN S PATIENT HUSKY MEDICAID HUSKY PLAN May 22, 2022 MEDICAI D [id number] GENET DUGAN S PATIENT MEDICARE ([facility]) MEDICARE () PART B May 22, 2022 PART B [id number] GENET DUGAN S PATIENT MEDICARE ([facility]) MEDICARE () PART A Feb 19, 2009 PART A [id number] [id number] [phone] GENET DUGAN S PATIENT MEDICARE PART D ([facility]) MEDICARE () PART D Jul 22, 2022 PART D [id number] [phone] GENET DUGAN S PATIENT [facility] MCR (WNR) MEDICARE ADVANTAGE MCR (WNR) Sep 21, 2022 [id number] GENET DUGAN S PATIENT [facility] MCR (WNR) MEDICARE ADVANTAGE [facility] (WNR) Sep 21, 2022 [id number] GENET DUGAN PATIENT Selected Encounter This section includes the information on record at [place] for the Encounter. Date/Time Encounter Type Encounter Description Reason Pro vider Source [facility] Encounter Template Text not used by [place] Advance Directives: All historical and current Section [...]
--- OUTSIDE RECORDS SUMMARY | 2024-08-30 18:36 | XMS_ITS | Encounter Summary ---
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 Address [address] [place] [address] Care Team Providers Care Public Administration Teacher Name Role Phone NOLAN VERDUZCO Primary Care [...] to Policy Segal [facility]) MEDICARE ADVANTAGE [place] Sep 21, 2023 [id number] [phone] GENET [facility]UGAN S [facility] MEDIC[facility] ADVANTAGE [facility] ([facility]) Sep 21, 2023 [id number] [phone] MARVIN DUGANI S PATIENT [place]KY MEDICAID HUSKY PLAN May 22, 2022 MEDICAI D [id number] GENET DUGAN S PATIENT MEDICARE ([facility]) MEDICARE (M) PART B May 22, 2022 PART B [id number] [id number] [phone] MARVIN DUGANI S PATIENT MEDICARE ([facility]) MEDICARE (M) PART A Feb 19, 2009 PART A [id number] MARVIN DUGANI S PATIENT MEDICARE PART D (WNR) MEDICARE (M) PART D Jul 22, 2022 PART D [id number] [phone] GENET DUGAN S PATIENT [facility] (WNR) MEDICARE ADVANTAGE [facility] (WNR) Sep 21, 2022 [id number] GENET DUGAN S PATIENT [facility] (WNR) MEDICARE [facility] (WNR) Sep 21, 2022 [id number] [phone] GENET DUGAN PATIENT Selected Encounter This section includes the information on record at [place] for the Encounter. Date/Time Encounter Type Encounter Description Reason Provider Source Mar 21, 2024 12:46 PM QNHP OL DIG ASSMT&MGMT 5-10 CLINICAL PHARMACY ICD-10-CM Z51.81 Encounter for therapeutic drug level monitoring RICK DAVIS [facility] Encounter Template Text not used by [place] Assessments - Encounter Diagnoses This section includes the primary and secondary diagnoses documented for the Encounter. Date/Time Primary/Secondary Diagnosis Diagnosis Name Provider Source Mar 21, 2024 12:46 PM PRIMARY Encounter for therapeutic drug level monitoring ALBIN DAVIS [place] Plan of Treatment: Future Appointments (+ 6 [...] - MEDICINE [place] [facility] Apr 15, 2024 02:30 PM AMBULATORY - [place]ICINE [place] [facility] Apr 27, 2024 10:00 AM AMBULATORY - MEDICINE [place] [facility] May 13, 2024 11:00 AM AMBULATORY - MEDICINE [place] [facility] May 31, 2024 10:00 AM AMBULATORY - MEDICINE [place] [facility] Jun 03, 2024 12:45 PM AMBULATORY - MEDICINE [place] [facility] Jun 21, 2024 09:00 AM [facility] Aug 09, 2024 09:00 AM [facility] Aug 16, 2024 12:00 PM AMBULATORY - NONE [facility] Aug 22, 2024 11:20 AM AM[place]UL[place] [place] [facility] Aug 24, 2024 11:00 AM AMBULATORY [...] - Chemistry Order VITAMIN B12 BLOOD (SST-SERUM) [facility] Mar 19, 2024 12:00 AM Laboratory - Chemistry Order MICROALBUMIN CREATININE RATIO PANEL URINE (RANDOM) [facility] Mar 19, 2024 12:00 AM Laboratory - Chemistry Order FOLATE BLOOD (SST-SERUM) [facility] Mar 19, 2024 12:00 AM Laboratory - Chemistry Order VITAMIN D 25-OH (Therapy monitor) BLOOD (SST-SERUM) [facility] Mar 19, 2024 12:00 AM Laboratory - Chemistry Order BASIC METABOLIC PANEL (fasting) BLOOD (SST-SERUM) [facility] Mar 19, 2024 12:00 AM Laboratory - Chemistry Order LIPID PANEL FASTING BLOOD (SST-SERUM) [facility] Mar 19, 2024 12:00 AM Laboratory - Chemistry Order LIVER FUNCTION BLOOD (SST-SERUM) [facility] Mar 19, 2024 12:00 AM Laboratory - Chemistry Order HEMOGLOBIN A1C PANEL BLOOD (LAV-BLOOD) [facility] Mar 19, 2024 12:00 AM Laboratory - Chemistry Order CBC AND DIFF (AUTO) BLOOD (LAV-BLOOD) [facility] Mar 19, 2024 12:00 AM Laboratory - Chemistry Order TSH BLOOD (SST-SERUM) [facility] Mar 19, 2024 12:00 AM Laboratory - Chemistry Order PSA BLOOD (SST-SERUM) [facility] Social History: Smoking Status (Most current) and Tobacco Use (All prior to encounter date) This section includes the most current, and the historical, smoking and tobacco- related health factors from the [place] facility where the Encounter took place. Current Smoking Status This section includes the most current smoking, or tobacco-related health factor, from the [place] facility where the Encounter took place. Date/Time Current Smoking Status Comment Facil ity Jun 23, 2023 09:00 AM VA-TOBACCO FORMER USER [place] Tobacco Use History This section includes a history of the smoking, or tobacco-related health factors, that were collected on or before the date of the Encounter. The data comes from the [facility] where the Encounter took place. Date/Time Smoking Status/Tobacco Use Comment F acility Jun 23, 2023 09:00 AM VA-TOBACCO QUIT 15 YRS OR MORE [place] May 01, 2022 01:30 PM VA-TOBACCO FORMER USER [place] May 01, 2022 01:30 PM VA-TOBACCO QUIT 15 YRS OR MORE [facility] Apr 15, 2021 03:00 PM VA-TOBACCO FORMER USER [place] Apr 15, 2021 03:00 PM VA-TOBACCO QUIT 15 YRS OR MORE [place] Oct 20, 2018 12:53 PM VA-TOBACCO FORMER USER [place] Oct 20, 2018 12:53 PM VA-TOBACCO QUIT 15 YRS OR MORE [place] Jul 03, 2017 10:33 AM QUIT TOBACCO USE > 7 YEARS AGO quit 25yrs ago [facility] February 13, 2016 08:46 AM LIFETIME NON-TOBACCO USER [place] Advance Directives: All historical and current Section Date Range: From patient's date of to the date document was created. This section includes ALL of a patient's completed or amended [place] Advance and Rescinded Directives. The entries below indicate that a directive exists for the patient, but an actual copy is not included with this document. The data comes from all [facility]. Date Advance Directives Provider Source Apr 04, 2024 ADVANCE DIRECTIVE CHAPINCITO DEE [facility] Encounter Notes: All associated encounter notes This section contains the clinical notes associated to the Encounter. Date/Time Encounter Note(s) Provider Source Mar 21, 2024 12:46 PM PHARMACY OUTPATIEN T MEDICATION MGT NOTE: LOCAL TITLE: PHARMACY OUTPATIENT MEDICATION NOTE STANDARD TITLE: PHARMACY OUTPATIENT MEDICATION MGT NOTE DATE OF NOTE: MAR 21, 2024@12:46 ENTRY DATE: MAR 21, 2024@12:46:20 AUTHOR: ALBIN DAVIS EXP COSIGNER: URGENCY: STATUS: COMPLETED Notification of Medication Conversion: CYCLOSPORINE OPHTHALMIC EMULSION,OPH (RESTASIS) is the VA first line eye lubricant for treatment of dry eye disease. VA reconciliation analyst and/or ordering provider agree that this patient is being switched by pharmacy conversion to CYCLOSPORINE OPHTHALMIC EMULSION,OPH (RESTASIS) from LIFITEGRAST (XIIDRA). This patient will receive a letter in the mail informing them of this conversion. /mariana/ ALBIN DAVIS CLINICAL CRUSHER FEEDER Signed: 03/21/2024 12:46 Receipt Acknowledged By: 03/21/2024 13:17 /mariana/ CAROL HOLLOWAY, BASILIO Accounting Manager Cpa ALBIN DAVISFIELD
--- OUTSIDE RECORDS SUMMARY | 2024-08-30 18:36 | XMS_ITS ---
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 Address [address] [place] [address] Care Team Providers Care Warehouse Shipping Clerk Name Role Phone NOLAN VERDUZCO Primary [...] Segal's Name Patient's Relationship to Policy Segal [facility] ([facility]) MEDICARE ADVANTAGE [place] IN[place] - [place] Sep 21, 2023 [id number] [phone] MARVIN [facility]UGANI S [facility]IC[facility] ADVANTAGE [facility] ([facility]) Sep 21, 2023 [id number] [phone] DUGAN,GENET S PATIENT HUSKY MEDICAID HUSKY PLAN May 22, 2022 MEDICAI D [id number] DUGAN,GENET S PATIENT MEDICARE ([facility]) MEDICARE (M) PART B May 22, 2022 PART B [id number] [id number] [phone] DUGAN,GENET S PATIENT MEDICARE ([facility]) MEDICARE (M) PART A Feb 19, 2009 PART A [id number] [id number] [phone] DUGAN,GENET S PATIENT MEDICARE PART D (WNR) MEDICARE (M) PART D Jul 22, 2022 PART D [id number] [id number] [phone] GENET DUGAN S PATIENT [facility] (WNR) MEDICARE ADVANTAGE [facility] (WNR) Sep 21, 2022 [id number] GENET DUGAN S PATIENT [facility] (WNR) MEDICARE ADVANTAGE [facility] (WNR) Sep 21, 2022 [id number] [phone] GENET DUGAN PATIENT Selected Encounter This section includes the information on record at [place] for the Encounter. Date/Time Encounter Type Encounter Description Reason Pro vider Source Mar 18, 2024 12:00 AM Outpatient Encounter EVENT (HISTORICAL) IHE Encounter Template Text not used by [place] Plan of Treatment: Future Appointments (+ 6 months) and Future Tests (+/- 45 days) The Plan of Treatment section includes future care activities for the patient from all [place] treatmentfacilities. This section includes future appointments and future orders which are active, pending or scheduled. Future Appointments This section includes appointments that were scheduled to occur 6 months from the date of the Encounter, up to a maximum of 20 appointments. The data comes from all [place] treatment facilities. Appointment Date/Time Appointment Type Appointme nt Facility Name Mar 21, 2024 09:30 AM AMBULATORY - MEDICINE [place] [facility] Apr 07, 2024 08:30 AM AMBULATORY - MEDICINE [place] [facility] Apr 15, 2024 02:30 PM AMBULATORY - MEDICINE [place] [facility] Apr 27, 2024 10:00 AM AMBULATORY - MEDICINE [place] [facility] May 13, 2024 11:00 AM AMBULATORY - MEDICINE [place] [facility] May 31, 2024 10:00 AM AMBULATORY - MEDICINE [place] [facility] Jun 03, 2024 12:45 PM AMBULATORY - MEDICINE [place] [facility] Jun 21, 2024 09:00 AM AMBULATORY - MEDICINE [place] [facility] Aug 09, 2024 09:00 AM AMBULATORY - MEDICINE [place] [facility] Aug 16, 2024 12:00 PM AMBULATORY - NONE [place] [facility] Aug 22, 2024 11:20 AM AM[facility]UL[facility] Aug 24, 2024 11:00 AM [facility] Active, Pending, and Scheduled Orders This section includes a listing of several types of active, pending, and scheduled orders, including clinic medications orders, diagnostic test orders, procedure orders and consult orders; where the start date of the order is 45 days before the date of the Encounter or 45 days after the date of theEncounter. The data comes from all [place] treatment facilities. Test Date/Time Test Type Test Details Facility Name Mar 19, 2024 12:00 AM Laboratory - Chemistry Order MICROALBUMIN CREATININE RATIO PANEL URINE (RANDOM) [facility] Mar 19, 2024 12:00 AM Laboratory - Chemistry Order VITAMIN B12 BLOOD (SST-SERUM) [facility] Mar 19, 2024 12:00 AM Laboratory - Chemistry Order FOLATE BLOOD (SST-SERUM) [facility] Mar 19, 2024 12:00 AM Laboratory - Chemistry Order VITAMIN D 25-OH (Therapy monitor) BLOOD (SST-SERUM) [facility] Mar 19, 2024 12:00 AM Laboratory - Chemistry Order BASIC METABOLIC PANEL (fasting) BLOOD (SST-SERUM) [facility] Mar 19, 2024 12:00 AM Laboratory - Chemistry Order LIPID PANEL FASTING BLOOD (SST-SERUM) [facility] Mar 19, 2024 12:00 AM Laboratory - Chemistry Order CBC AND DIFF (AUTO) BLOOD (LAV-BLOOD) [facility] Mar 19, 2024 12:00 AM Laboratory - Chemistry Order HEMOGLOBIN A1C PANEL BLOOD (LAV-BLOOD) [facility] Mar 19, 2024 12:00 AM Laboratory - Chemistry Order LIVER FUNCTION BLOOD (SST-SERUM) [facility] Mar 19, 2024 12:00 AM Laboratory - Chemistry Order TSH BLOOD (SST-SERUM) [facility] Mar 19, 2024 12:00 AM Laboratory - Chemistry Order PSA BLOOD (SST-SERUM) [facility] Advance Directives: All historical and current Section Date Range: From patient's date of to the date document was created. This section includes ALL of a patient's completed or amended [place] Advance and Rescinded Directives. The entries below indicate that a directive exists for the patient, but an actual copy is not included with this document. The data comes from all [place] facilities. Date Advance Directives Provider Source Apr 04, 2024 ADV[facility] Encounter Notes: All associated encounter notes This section contains the clinical notes associated to the Encounter. Date/Time Encounter Note(s) Provider Source Mar 18, 2024 12:00 AM NONVA NOTE: LOCAL TITLE: NON-VA HOSPITALIZATIONS/ER STANDARD TITLE: NONVA NOTE DATE OF NOTE: MAR 18, 2024 ENTRY DATE: APR 05, 2024@12:02:57 AUTHOR: MAGDALENA AZUL COSIGNER: URGENCY: STATUS: COMPLETED VistA Imaging - Scanned Document SCANNED DOCUMENT SIGNATURE NOT REQUIRED Electronically Filed: 04/05/2024 by: MARIE AZUL Catering Staff Member MARIE AZUL [employer]
--- OUTSIDE RECORDS SUMMARY | 2024-08-30 18:37 | XMS_ITS | Encounter Summary ---
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 Address [address] [place] [address] Care Team Providers Care Cardroom Supervisor Name Role Phone NOLAN VERDUZCO Primary [...] Segal's Name Patient's Relationship to Policy Segal [facility]) MEDICARE ADVANTAGE [place] IN[place] - [place] Sep 21, 2023 [id number] GENET DUGAN S PATIENT AETNA [facility] ([facility]) MEDICARE [facility] ([facility]) Sep 21, 2023 [id number] [phone] GENET DUGAN S PATIENT HUSKY MEDICAID HUSKY PLAN May 22, 2022 MEDICAI D [id number] GENET DUGAN S PATIENT MEDICARE ([facility]) MEDICARE () PART B May 22, 2022 PART B [id number] [id number] [phone] GENET DUGAN S PATIENT MEDICARE ([facility]) MEDICARE () PART A Feb 19, 2009 PART A [id number] GENET DUGAN S PATIENT MEDICARE PART D ([facility]) MEDICARE () PART D Jul 22, 2022 PART D [id number] [id number] GENET DUGAN S PATIENT [facility] (WNR) MEDICARE ADVANTAGE MCR (WNR) Sep 21, 2022 [id number] GENET DUGAN S PATIENT [facility] MCR (WNR) MEDICARE ADVANTAGE [facility] (WNR) Sep 21, 2022 [id number] GENET DUGAN PATIENT Selected Encounter This section includes the information on record at [place] for the Encounter. Date/Time Encounter Type Encounter Description Reason Pro vider Source [facility] Encounter Template Text not used by [place] Advance Directives: All historical and current Section [...]
--- OUTSIDE RECORDS SUMMARY | 2024-08-30 18:37 | XMS_ITS | Encounter Summary ---
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 Organization [place] Address [address] [place] [id number] Care Team Providers Care Tool Tender Name Role Phone NOLAN VERDUZCO Primary Care [...] Segal's Name Patient's Relationship to Policy Segal [facility] ([facility]) MEDICARE ADVANTAGE [place] INDIV IDUAL - [place] Sep 21, 2023 [id number] [phone] MARVIN DUGANI S PATIENT [facility] ([facility]) MEDICARE ADVANTAGE [facility] ([facility]) Sep 21, 2023 [id number] [phone] DUGANMARVINI S PATIENT HUSKY MEDICAID HUSKY PLAN May 22, 2022 MEDICAI D [id number] MARVIN DUGANI S PATIENT MEDICARE ([facility]) MEDICARE () PART B May 22, 2022 PART B [id number] [phone] DUGANMARVINI S PATIENT MEDICARE ([facility]) MEDICARE (M) PART A Feb 19, 2009 PART A [id number] DUGAN,GENET S PATIENT MEDICARE PART D (WNR) MEDICARE (M) PART D Jul 22, 2022 PART D [id number] [phone] GENET DUGAN S PATIENT [facility] (WNR) MEDICARE ADVANTAGE [facility] (WNR) Sep 21, 2022 [id number] GENET DUGAN S PATIENT [facility] (WNR) MEDICARE [facility] (WNR) Sep 21, 2022 [id number] [phone] GENET DUGAN PATIENT Selected Encounter This section includes the information on record at [place] for the Encounter. Date/Time Encounter Type Encounter Description Reason Pro vider Source Apr 19, 2024 03:22 PM Outpatient Encounter COMMUNITY CARE CONSULT IHE Encounter Template Text not used by [place] Plan of Treatment: Future Appointments (+ 6 months) and Future Tests (+/- 45 days) The Plan of Treatment section includes future care activities for the patient from all [place] treatmentfacilities. This section includes future appointments and future orders which are active, pending or scheduled. Future Appointments This section includes appointments that were scheduled to occur 6 months from the date of the Encounter, up to a maximum of 20 appointments. The data comes from all [place] treatment facilities. Appointment Date/Time Appointment Type Appointme nt Facility Name Apr 27, 2024 10:00 AM AMBULATORY - MEDICINE [place] [facility] [place] [facility] May 13, 2024 11:00 AM AMBULATORY - MEDICINE [place] [facility] [place] [facility] May 31, 2024 10:00 AM AMBULATORY - MEDICINE [place] [facility] [place] [facility] Jun 03, 2024 12:45 PM AMBULATORY - MEDICINE [place] [facility] [place] [facility] Jun 21, 2024 09:00 AM AMBULATORY - MEDICINE [place] [facility] [place] [facility] Aug 09, 2024 09:00 AM AMBULATORY - MEDICINE [place] [facility] [place] [facility] Aug 16, 2024 12:00 PM AMBULATORY - NONE [facility] [place] [facility] Aug 22, 2024 11:20 AM AMBULATORY - MEDICINE [place] [facility] [place] [facility] Aug 24, 2024 11:00 AM AMBULATORY [...] of theEncounter. The data comes from all [place] treatment facilities. Test Date/Time Test Type Test Details Facility Name Mar 19, 2024 12:00 AM Laboratory - Chemistry Order MICROALBUMIN CREATININE RATIO PANEL URINE (RANDOM) [facility] Mar 19, 2024 12:00 AM Laboratory - Chemistry Order VITAMIN B12 BLOOD (SST-SERUM) [facility] Mar 19, 2024 12:00 AM Laboratory - Chemistry Order FOLATE BLOOD (SST-SERUM) [facility] Mar 19, 2024 12:00 AM Laboratory - Chemistry Order VITAMIN D 25-OH (Therapy monitor) BLOOD (SST-SERUM) [facility] Mar 19, 2024 12:00 AM Laboratory - Chemistry Order BASIC METABOLIC PANEL (fasting) BLOOD (SST-SERUM) [facility] Mar 19, 2024 12:00 AM Laboratory - Chemistry Order LIPID PANEL FASTING BLOOD (SST-SERUM) [facility] Mar 19, 2024 12:00 AM Laboratory - Chemistry Order CBC AND DIFF (AUTO) BLOOD (LAV-BLOOD) [facility] Mar 19, 2024 12:00 AM Laboratory - Chemistry Order HEMOGLOBIN A1C PANEL BLOOD (LAV-BLOOD) [facility] Mar 19, 2024 12:00 AM Laboratory - Chemistry Order LIVER FUNCTION BLOOD (SST-SERUM) [facility] Mar 19, 2024 12:00 AM Laboratory - Chemistry Order TSH BLOOD (SST-SERUM) [facility] Mar 19, 2024 12:00 AM Laboratory - Chemistry Order PSA BLOOD (SST-SERUM) [facility] Advance Directives: All historical and current Section Date Range: From patient's date of to the date document was created. This section includes ALL of a patient's completed or amended [place] Advance and Rescinded Directives. The entries below indicate that a directive exists for the patient, but an actual copy is not included with this document. The data comes from all [place] facilities. Date Advance Directives Provider Source Apr 04, 20[address] DEE [facility] Encounter Notes: All associated encounter notes This section contains the clinical notes associated to the Encounter. Date/Time Encounter Note(s) Provider Source Apr 19, 2024 03:22 PM NONVA NOTE: [facility] TITLE: [facility] COORD PLAN STANDARD TITLE: NONVA NOTE DATE OF NOTE: APR 19, 2024@15:22 ENTRY DATE: APR 19, 2024@15:22:40 AUTHOR: IKE BRODY EXP COSIGNER: URGENCY: STATUS: COMPLETED Emergency Notification Intake Date Presenting to the Facility: Feb Method of Contact: Notified from ECR worklist Notification ID: [id number] [facility] Referral #: [id number] [facility] Hospital Name: Hospital: [facility] Address: City: [place] State: [place] Zip Code: Phone : [facility] Facility Point of Contact: Name: Alfonzo Phone: Chief complaint: Urine Retention Primary Diagnosis: Disposition Discharged Date of discharge: Feb Discharge to Comment: ER Only /mariana/ IKE MCINTYRE Signed: 04/19/2024 15:24 Receipt Acknowledged By: * AWAITING SIGNATURE * BLANCA ARELLANO * AWAITING SIGNATURE * RORO OSBORN * AWAITING SIGNATURE * NOLAN VERDUZCO 04/20/2024 11:39 /es/ SARAH YANEZ Registered Nurse Patient Biller * AWAITING SIGNATURE * TIMA JEFFERSON 04/19/2024 15:29 /es/ OUMAR MOOREN,RN-BC REGISTERED NURSE (RN) IKE BRODY ANNABELLA
--- OUTSIDE RECORDS SUMMARY | 2024-08-30 18:37 | XMS_ITS | Encounter Summary ---
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 Organization [place] Address [address] [place] [address] Care Team Providers Care Mineral Mixer Name Role Phone NOLAN RAMACHANDRAN Primary Care Provider Unava ilable Insurance Providers: [...] Segal's Name Patient's Relationship to Policy Segal [facility] ([facility]) MEDICARE ADVANTAGE [place] INDIV [place]UAL - [place] Sep 21, 2023 [id number] [phone] GENET [facility]UGAN S [facility]) MEDICARE [facility] ([facility]) Sep 21, 2023 [id number] [phone] GENET DUGAN S PATIENT [place]KY MEDICAID H[place] PLAN May 22, 2022 MEDICAI D [id number] GENET DUGAN S PATIENT MEDICARE ([facility]) MEDICARE () PART B May 22, 2022 PART B [id number] [id number] [phone] GENET DUGAN S PATIENT MEDICARE ([facility]) MEDICARE () PART A Feb 19, 2009 PART A [id number] [id number] [phone] GENET DUGAN S PATIENT MEDICARE PART D (WNR) MEDICARE (M) PART D Jul 22, 2022 PART D [id number] DUGAN,GENET S PATIENT [facility] (WNR) MEDICARE ADVANTAGE [facility] (WNR) Sep 21, 2022 [id number] [phone] DUGAN,GENET S PATIENT [facility] (WNR) MEDICARE ADVANTAGE [facility] (WNR) Sep 21, 2022 [id number] GENET DUGAN S PATIENT Selected Encounter This section includes the information on record at [place] for the Encounter. Date/Time Encounter Type Encounter Description Reason Provider Source Apr 27, 2024 10:00 AM OFFICE O/P EST MOD 30 MIN PRIMARY CARE/MEDICINE ICD-10-CM 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 LUBAVINICIOJANA ISAAC [place] Encounter Template Text not used by [place] Assessments - Encounter Diagnoses This section includes the primary and secondary diagnoses documented for the Encounter. Date/Time Primary/Secondary Diagnosis Diagnosis Name Provider Source Apr 27, 2024 10:38 AM PRIMARY Carcinoma in situ of prostate MONICA RAMACHANDRAN CEASAR Apr 27, 2024 10:38 AM SECONDARY Generalized anxiety disorder LUBAMONICA MARTINEZ [facility] Plan of Treatment: Future Appointments (+ 6 [...] Date/Time Appointment Type Appointme nt Facility Name May 13, 2024 11:00 AM AMBULATORY - MEDICINE [place] [facility] [place] [facility] May 31, 2024 10:00 AM AMBULATORY - MEDICINE [place] [facility] [place] [facility] Jun 03, 2024 12:45 PM AMBULATORY - MEDICINE [place] [facility] [place] [facility] Jun 21, 2024 09:00 AM AMBULATORY - MEDICINE [place] [facility] [place] [facility] Aug 09, 2024 09:00 AM AMBULATORY - MEDICINE [place] [facility] [place] [facility] Aug 16, 2024 12:00 PM AMBULATORY - NONE [facility] Aug 22, 2024 11:20 AM [facility] Aug 24, 2024 11:00 AM [facility] Active, Pending, and Scheduled Orders This [...] Order MICROALBUMIN CREATININE RATIO PANEL URINE (RANDOM) [facility] Mar 19, 2024 12:00 AM Laboratory - Chemistry Order VITAMIN B12 [facility]LO[facility] ([facility] Mar 19, 2024 12:00 AM Laboratory - Chemistry Order FOLATE BLOOD (SST[facility]SERUM) [facility] Mar 19, 2024 12:00 AM Laboratory - Chemistry Order VITAMIN D 25-OH (Therapy monitor) BLOOD (SST-SERUM) [facility] Mar 19, 2024 12:00 AM Laboratory - Chemistry Order BASIC METABOLIC PANEL (fasting) BLOOD (SST-SERUM) [facility] Mar 19, 2024 12:00 AM Laboratory - Chemistry Order LIPID PANEL FASTING BLOOD (SST-SERUM) [facility] Mar 19, 2024 12:00 AM Laboratory - Chemistry Order LIVER FUNCTION BLOOD (SST-SERUM) [facility] Mar 19, 2024 12:00 AM Laboratory - Chemistry Order CBC AND DIFF (AUTO) BLOOD (LAV-BLOOD) [facility] Mar 19, 2024 12:00 AM Laboratory - Chemistry Order HEMOGLOBIN A1C PANEL BLOOD (LAV-BLOOD) [facility] Mar 19, 2024 12:00 AM Laboratory - Chemistry Order TSH BLOOD (SST-SERUM) [facility] Mar 19, 2024 12:00 AM Laboratory - Chemistry Order PSA BLOOD (SST-SERUM) [facility] [place] [facility] Social History: Smoking Status (Most current) and Tobacco Use (All prior to encounter date) This section includes the most current, and the historical, smoking and tobacco- related health factors from the [place] facility where the Encounter took place. Current Smoking Status This section includes the most current smoking, or tobacco-related health factor, from the [place] facility where the Encounter took place. Date/Time Current Smoking Status Comment Facil ity Jun 23, 2023 09:00 AM VA-TOBACCO FORMER USER [facility] Tobacco Use History This section includes a history of the smoking, or tobacco-related health factors, that were collected on or before the date of the Encounter. The data comes from the [facility] where the Encounter took place. Date/Time Smoking Status/Tobacco Use Comment F acility Jun 23, 2023 09:00 AM VA-TOBACCO QUIT 15 YRS OR MORE [facility] May 01, 2022 01:30 PM VA-TOBACCO FORMER USER [facility] May 01, 2022 01:30 PM VA-TOBACCO QUIT 15 YRS OR MORE [facility] Apr 15, 2021 03:00 PM VA-TOBACCO FORMER USER [facility] Apr 15, 2021 03:00 PM VA-TOBACCO QUIT 15 YRS OR MORE [facility] Oct 20, 2018 12:53 PM VA-TOBACCO FORMER USER [facility] Oct 20, 2018 12:53 PM VA-TOBACCO QUIT 15 YRS OR MORE [facility] Jul 03, 2017 10:33 AM QUIT TOBACCO USE > 7 YEARS AGO quit 25yrs ago [facility] February 13, 2016 08:46 AM LIFETIME NON-TOBACCO USER [facility] Advance Directives: All historical and current Section Date Range: From patient's date of to the date document was created. This section includes ALL of a patient's completed or amended [place] Advance and Rescinded Directives. The entries below indicate that a directive exists for the patient, but an actual copy is not included with this document. The data comes from all [facility]. Date Advance Directives Provider Source Apr 04, 2024 ADVANCE DIRECTIVE CHAPINCITO DEE [facility] Encounter Notes: All associated encounter notes This section contains the clinical notes associated to the Encounter. Date/Time Encounter Note(s) Provider Source Apr 27, 2024 10:19 AM LETTERS: LOCAL TITLE: PATIENT LETTER (T) STANDARD TITLE: LETTERS DATE OF NOTE: APR 27, 2024@10:19 ENTRY DATE: APR 27, 2024@10:19:18 AUTHOR: NOLAN RAMACHANDRAN EXP COSIGNER: URGENCY: STATUS: COMPLETED [facility] Toll Free Number Primary Care Telephone Assistance can be reached at extension [phone] [facility] scheduling can be reached at extension [phone] [facility] scheduling can be reached at ext [phone] APR 27, 2024 Outpatient [place] Clinic [facility] Re: JAKE DUGAN To Whom It May Concern: I am writing on behalf of my patient who has requested a letter concerning his diagnosis of prostate cancer. Prostate cancer is currently under treatment by [facility] urology. Understandably this diagnosis is distressed the patient and his made him quite anxious about his health. This has indirectly affected his mood and may be creating excessive anxiety. Most recently patient has had obstructive urinary symptoms requiring emergency room intervention. He has had to have a catheter use which was also successfully removed several weeks ago. Please call me if you have any questions. Sincerely, Nolan Ramachandran MD Primary Care Sincerely, Your Primary Care Team [facility] [address] [phone] [place] [address] [place] [facility] [address] [place] [address] [place] [address] [facility] [address] [facility] [place] [phone] [place] [address] NOLAN RAMACHANDRAN [facility] Apr 27, 2024 10:09 AM PREVENTIVE MEDICIN E NURSING NOTE: LOCAL TITLE: CLINICAL REMINDERS/NURSING STANDARD TITLE: PREVENTIVE MEDICINE NURSING NOTE DATE OF NOTE: APR 27, 2024@10:09 ENTRY DATE: APR 27, 2024@10:09:38 AUTHOR: TAMMIE DIAZ EXP COSIGNER: URGENCY: STATUS: COMPLETED Falls & Incontinence Screen: Falls Screen: 4. No falls within the past year. Incontinence Screen No incontinence. COVID-19 Immunization: Additional Information: CDC Interim Clinical Considerations for Use of COVID-19 Vaccines in [facility] COVID-19 Vaccine [employer] /mariana/ TAMMIE DIAZ LPN LPN Signed: 04/27/2024 10:10 TAMMIE DIAZ Apr 27, 2024 08:14 AM PHYSICIAN NOTE: LOCAL TITLE: MD NOTE STANDARD TITLE: PHYSICIAN NOTE DATE OF NOTE: APR 27, 2024@08:14 ENTRY DATE: APR 27, 2024@08:14:45 AUTHOR: NOLAN RAMACHANDRAN EXP COSIGNER: URGENCY: STATUS: COMPLETED CC: 79 year old DECLINED TO ANSWER MALE SERVICE CONNECTED % - 50 HPI: Patient is here for follow-up. Patient has had his catheter removed about 3 weeks ago and is now feeling good. The patient is requesting to have his PSA checked. I also reminded him that he will need his routine labs which she can do today. He did asked me for a letter from his shroud line tier to describe how the prostate cancer has affected him. A letter has been generated in his behalf. I did encourage him to speak with the urologist as they are the specialist for this and can give a better letter as to how the prostate cancer and its treatment. Patient was also seen by through telederm with a diagnosis of seborrheic keratosis. I did review the diagnosis with him and these are benign lesions which also tend to resolve on its on their own. Patient is reassured. Patient's daughter is leaving house in 2 weeks. Problem list and medications reviewed. Last Labs: did not do his labs Active problems - Computerized Problem List is the source for the followin. Carcinoma in situ of prostate followed by [facility] 2. Olecranon bursitis 3. Loss of teeth - acquired vet needs dentures/ recurrent gum/dental infections/ empric abx Apr 2022 4. History of partial adherence to treatment Sep 2020 - noted lapses in lisinopril refills 5. Paraesthesia of lower extremity (SNOMED CT [id number]) previously on gabapentin recently with objective signs of dminished circulation to LEFT foot only initial screen for metabolic/nutritional causes of neuropathy unrevealing No show to neurology [facility], Summer 2020 No show to Vascular consult, Summer 2020 6. status post appendectomy 7. Diverticular disease normal colonoscopy August, 8. Osteoarthritis (SNOMED CT [id number]) C/S worst at C6-C7 09/06 mod OA Interphalamgeal joint right thumb 09/06 9. Generalized anxiety disorder 10. Epilepsy [facility], CELINA Link OV 12-05-15 11. Essential hypertension [place] [address], CELINA Link OV 12-05-15 12. Atypical chest pain [place] [address], CELINA Link OV 12-05-15 02/13/16 EKG NSR 12/30/17 EKG NSR PHYSICAL EXAMINATION/DIRECTED EXAM: BP:138/82 (04/27/2024 10:09) Resp:20 (03/21/2024 09:53) Temp:97 F [36.1 C] (04/27/2024 10:09) Pulse:88 (04/27/2024 10:09) WEIGHT 04/27/2024 10:09 184(83.46)[26] 03/21/2024 09:53 186(84.37)[27] 01/22/2024 15:44 184(83.46)[26] Comfortable S1S2 RRR lungs CTA Benign abdomen No edema ASSESSMENT & PLAN: 79 year old MALE SERVICE CONNECTED % - 50 presents for follow-up. Much more at ease as his daughter is planing to vacate his house in 2 weeks. He's also happy that his urination is back to normal. Letter requested about his prostate cancer generated. Exam unchanged but also have encouraged him to do his routine labs. He anticipated gogin back to [place] by six months. Plan of care discussed with patient who articulates understanding. Chronic issues reviewed briefly; no changes to management unless specified above. RTC 6mos TIME ATTESTATION: Time spent directly with the [...] of labs/studies and medication list. Upcoming Appointments: 05/13/2024 11:00 CWM/SO/PACT 9 NURSING 06/03/2024 12:45 [facility] CARE-OPHTHALMOLOGY 06/21/2024 09:00 CWM/SO/PACT 9 01/02/2025 10:00 CWM/NO/OPTOMETRY/MERHAR Med Reconciliation: Active Outpatient Medications (including Supplies): Active Outpatient Medications Status ======= 1) CAPSAICIN 0.025% CREAM APPLY A MODERATE AMOUNT ACTIVE TOPICALLY FOUR TIMES A DAY FOR LOCALIZED PAIN (USE FOR AT LEAST 4 WEEKS FOR EFFECT) 2) CARBOXYMETHYLCELLULOSE NA 1% OPH GEL APPLY 1 DROP ACTIVE INTO EACH EYE FOUR TIMES DAILY NEEDED FOR DRY EYE 3) CYCLOSPORINE 0.05% (PF) OPH EMUL 0.4ML INSTILL 1 DROP ACTIVE INTO EACH EYE TWICE DAILY FOR DRY EYE THIS REPLACES XIIDRA 4) FINASTERIDE 5MG TAB TAKE ONE TABLET BY MOUTH ONCE ACTIVE DAILY FOR ENLARGED PROSTATE 5) FOLIC ACID 1MG TAB TAKE ONE TABLET BY MOUTH ONCE ACTIVE DAILY FOR INADEQUATE FOLIC ACID VITAMIN/NUTRITION SUPPLEMENT 6) KETOTIFEN 0.025% OPH SOLN INSTILL 1 DROP INTO EACH ACTIVE EYE TWICE DAILY (IF YOU WEAR CONTACT LENSES, WAIT 10 MINUTES BEFORE INSERTING LENSES) 7) LISINOPRIL 20MG TAB TAKE ONE TABLET BY MOUTH ONCE ACTIVE DAILY TO CONTROL BLOOD PRESSURE Active Non-VA Medications Status ======= 1) Non-VA FLUTICASONE PROP 50MCG 120D NASAL INHL 1 SPRAY ACTIVE INTO EACH NOSTRIL TWICE DAILY 8 Total Medications Medication (Local) Status ACETAMINOPHEN 500MG TAB Directions: TAKE TWO TABLETS BY MOUTH EVERY 6 HOURS NEEDED FOR PAIN Quantity: 100 for 30 days Provider: RENATA MCLAIN Expires: 03/27/24 Status: CEFUROXIME AXETIL 500MG TAB Directions: TAKE ONE TABLET BY MOUTH TWICE DAILY Quantity: 14 for 7 days Provider: PINKY HERRERA Expires: 03/23/24 Status: AMMONIUM LACTATE 12% LOTION Directions: APPLY SMALL AMOUNT TOPICALLY ONCE DAILY FOR DRY IRRITATED SKIN Quantity: 240 for 90 days Provider: ROWENA ROY Expires: 01/29/24 Status: ASPIRIN 81MG EC TAB Directions: TAKE ONE TABLET BY MOUTH ONCE DAILY TO PREVENT STROKE/HEART ATTACK Quantity: 120 for 90 days Provider: ROWENA ROY Expires: 01/29/24 Status: Medication (Remote) Status No remote medications found. /mariana/ NOLAN RAMACHANDRAN MD PHYSICIAN Signed: 04/27/2024 10:38 NOLAN RAMACHANDRAN [facility]
--- OUTSIDE RECORDS SUMMARY | 2024-08-30 18:38 | XMS_ITS ---
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 Address [address] [place] [address] Care Team Providers Care Director Of Primary Care Name Role Phone NOLAN VERDUZCO Primary Care [...] Segal's Name Patient's Relationship to Policy Segal [facility] ([facility]) MEDICARE ADVANTAGE [place] IN[place] IDUAL [place] Sep 21, 2023 [id number] [phone] MARVIN DUGANI S [facility]IC[facility] ADVANT[facility] ([facility]) Sep 21, 2023 [id number] [phone] DUGAN,GENET S PATIENT [place] MEDICAID H[place] PLAN May 22, 2022 MEDICAI D [id number] DUGAN,GENET S PATIENT MEDICARE ([place]) MEDICARE (M) PART B May 22, 2022 PART B [id number] DUGAN,GENET S PATIENT MEDICARE (WNR) MEDICARE (M) PART A Feb 19, 2009 PART A [id number] DUGAN,GENET S PATIENT MEDICARE PART D (WNR) MEDICARE (M) PART D Jul 22, 2022 PART D [id number] [phone] GENET DUGAN PATIENT [facility] (WNR) MEDICARE ADVANTAGE [facility] (WNR) Sep 21, 2022 [id number] GENET DUGAN PATIENT [facility] (WNR) MEDICARE ADVANTAGE MCR (WNR) Sep 21, 2022 [id number] [phone] GENET DUGAN PATIENT Selected Encounter This section includes the information on record at [place] for the Encounter. Date/Time Encounter Type Encounter Description Reason Pro vider Source Jun 16, 2024 09:37 AM Outpatient Encounter ADMIN PAT ACTIVTIES (MASNONCT) IHE Encounter Template Text not used by [place] Plan of Treatment: Future Appointments (+ 6 months) and Future Tests (+/- 45 days) The Plan of Treatment section includes future care activities for the patient from all [place] treatmentfacilities. This section includes future appointments and future orders which are active, pending or scheduled. Future Appointments This section includes appointments that were scheduled to occur 6 months from the date of the Encounter, up to a maximum of 20 appointments. The data comes from all [place] treatment facilities. Appointment Date/Time Appointment Type Appointme nt Facility Name Jun 21, 2024 09:00 AM AMBULATORY - MEDICINE [place] [facility] [place] [facility] Aug 09, 2024 09:00 AM AMBULATORY - MEDICINE [facility] [place] [facility] Aug 16, 2024 12:00 PM AMBULATORY - NONE [place] [facility] [place] [facility] Aug 22, 2024 11:20 AM AMBULATORY - MEDICINE [place] [facility] [facility] Aug 24, 2024 11:00 AM AMBULATORY - MEDICINE [facility] [place] Dec 13, 2024 01:30 PM [facility]BULATORY - MEDICINE [place] Advance Directives: All historical and current Section Date Range: From patient's date of to the date document was created. This section includes ALL of a patient's completed or amended [place] Advance and Rescinded Directives. The entries below indicate that a directive exists for the patient, but an actual copy is not included with this document. The data comes from all [place] facilities. Date Advance Directives Provider Source Apr 04, [address] [facility] Encounter Notes: All associated encounter notes This section contains the clinical notes associated to the Encounter. Date/Time Encounter Note(s) Provider Source Jun 16, 2024 09:37 AM ADMINISTRATIVE NOT E: LOCAL TITLE: CCC: SCHEDULING ADMINISTRATION STANDARD TITLE: ADMINISTRATIVE NOTE DATE OF NOTE: JUN 16, 2024@09:37:16 ENTRY DATE: JUN 16, 2024@09:37:17 AUTHOR: BRYSON CRUZ COSIGNER: URGENCY: STATUS: COMPLETED CCC: SCHEDULING ADMINISTRATION Has ADDENDA Patient Demographics Patient Name: JAKE DUGAN Patient Primary Phone: [phone] Patient Primary Address: [address] [place] [address] Patient : 1945 Patient Age: 79 Call Back Number: [phone] Caller/Recipient Relation to Patient: Self Administrative Administrative Note Reason: Other Administrative Note Comments: Desdemona calling to cancel pact appointment for pre op today. States he is TW did transfer to [facility] waste baler. Please call to [phone] IMPORTANT: This note was created by [facility] Clinical Contact [facility] staff. Please do not alert the staff member by adding them as a signer for future communications. Alerts are not monitored by this user. /viky CRUZ Signed: 06/16/2024 09:37 Receipt Acknowledged By: 06/17/2024 14:25 /viky FREDERICK LPN LPN 06/16/2024 13:43 /viky Marquez RN Registered Nurse (RN) for JELANI BRANDON 06/16/2024 ADDENDUM STATUS: COMPLETED PACT EDGE GRINDER to follow up with /viky Marquez RN Registered Nurse (RN) Signed: 06/16/2024 13:42 06/17/2024 ADDENDUM STATUS: COMPLETED WAS CALLED BY THIS GRAB JACK MAN X3 AND UNABLE TO REACH. /viky FREDERICK LPN LPN Signed: 06/17/2024 14:26 BRYSON CRUZ [facility]
--- OUTSIDE RECORDS SUMMARY | 2024-08-30 18:38 | XMS_ITS ---
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 Address [address] [place] [address] Care Team Providers Care Concrete Vibrator Operator Name Role Phone NOLAN VERDUZCO Primary [...] Segal's Name Patient's Relationship to Policy Segal [facility] ([facility] MEDICARE AD[place]ANTAGE [place] IN[place] - [place] Sep 21, 2023 [id number] [phone] MARVIN DUGANI S PATIENT [facility] ([facility] MEDICARE ADVANTAGE [facility] ([facility] Sep 21, 2023 [id number] [phone] DUGANMARVINI S PATIENT [place] MEDICAID H[place] PLAN May 22, 2022 MEDICAI D [id number] MARVIN DUGANI S PATIENT MEDICARE ([facility] MEDICARE () PART B May 22, 2022 PART B [id number] [id number] [phone] DUGANMARVINI S PATIENT MEDICARE ([facility] MEDICARE (M) PART A Feb 19, 2009 PART A [id number] DUGAN,GENET S PATIENT MEDICARE PART D (WNR) MEDICARE (M) PART D Jul 22, 2022 PART D [id number] [phone] GENET DUGAN S PATIENT [facility] (WNR) MEDICARE ADVANTAGE [facility] (WNR) Sep 21, 2022 [id number] GENET DUGAN S PATIENT [facility] (WNR) MEDICARE ADVANTAGE [facility] (WNR) Sep 21, 2022 [id number] [phone] GENET DUGAN PATIENT Selected Encounter This section includes the information on record at [place] for the Encounter. Date/Time Encounter Type Encounter Description Reason Pro vider Source Apr 07, 2024 12:00 AM Outpatient Encounter COMMUNITY CARE CONSULT IHE Encounter Template Text not used by [place] Plan of Treatment: Future Appointments (+ 6 months) and Future Tests (+/- 45 days) The Plan of Treatment section includes future care activities for the patient from all [place] treatmentfacilities. This section includes future appointments and future orders which are active, pending or scheduled. Future Appointments This section includes appointments that were scheduled to occur 6 months from the date of the Encounter, up to a maximum of 20 appointments. The data comes from all [place] treatment facilities. Appointment Date/Time Appointment Type Appointme nt Facility Name Apr 15, 2024 02:30 PM AMBULATORY - MEDICINE [place] [facility] [place] [facility] Apr 27, 2024 10:00 AM AMBULATORY - MEDICINE [place] [facility] [place] [facility] May 13, 2024 11:00 AM AMBULATORY - MEDICINE [place] [facility] [place] [facility] May 31, 2024 10:00 AM AMBULATORY - MEDICINE [place] [facility] [place] [facility] Jun 03, 2024 12:45 PM AMBULATORY - MEDICINE [place] [facility] [place] [facility] Jun 21, 2024 09:00 AM AMBULATORY - MEDICINE [place] [facility] [place] [facility] Aug 09, 2024 09:00 AM AMBULATORY - MEDICINE [place] [facility] [place] [facility] Aug 16, 2024 12:00 PM AMBULATORY - NONE [place] [facility] [facility] Aug 22, 2024 11:20 AM AMBULATORY - MEDICINE [place] [facility] [place] [facility] Aug 24, 2024 11:00 AM AMBULATORY - MEDICINE [facility] Active, Pending, and Scheduled Orders This section includes a listing of several types of active, pending, and scheduled orders, including clinic medications orders, diagnostic test orders, procedure orders and consult orders; where the start date of the order is 45 days before the date of the Encounter or 45 days after the date of theEncounter. The data comes from all [place] treatment facilities. Test Date/Time Test Type Test Details Facility Name Mar 19, 2024 12:00 AM Laboratory - Chemistry Order MICROALBUMIN CREATININE RATIO PANEL URINE (RANDOM) [facility] Mar 19, 2024 12:00 AM Laboratory - Chemistry Order VITAMIN B12 BLOOD (SST-SERUM) [facility] Mar 19, 2024 12:00 AM Laboratory - Chemistry Order VITAMIN D 25-OH (Therapy monitor) BLOOD (SST-SERUM) [facility] Mar 19, 2024 12:00 AM Laboratory - Chemistry Order BASIC METABOLIC PANEL (fasting) BLOOD (SST-SERUM) [facility] Mar 19, 2024 12:00 AM Laboratory - Chemistry Order FOLATE BLOOD (SST-SERUM) [facility] Mar 19, 2024 12:00 AM Laboratory - Chemistry Order LIPID PANEL FASTING BLOOD (SST-SERUM) [facility] Mar 19, 2024 12:00 AM Laboratory - Chemistry Order LIVER FUNCTION BLOOD (SST-SERUM) [facility] Mar 19, 2024 12:00 AM Laboratory - Chemistry Order CBC AND DIFF (AUTO) BLOOD (LAV-BLOOD) [facility] Mar 19, 2024 12:00 AM Laboratory - Chemistry Order HEMOGLOBIN A1C PANEL BLOOD (LAV-BLOOD) [facility] Mar 19, 2024 12:00 AM Laboratory - Chemistry Order TSH BLOOD (SST-SERUM) [facility] Mar 19, 2024 12:00 AM Laboratory - Chemistry Order PSA BLOOD (SST-SERUM) [facility] Advance Directives: All historical and current Section Date Range: From patient's date of to the date document was created. This section includes ALL of a patient's completed or amended [place] Advance and Rescinded Directives. The entries below indicate that a directive exists for the patient, but an actual copy is not included with this document. The data comes from all [place] facilities. Date Advance Directives Provider Source Apr 04, 20[address] [facility] Encounter Notes: All associated encounter notes This section contains the clinical notes associated to the Encounter. Date/Time Encounter Note(s) Provider Source Apr 07, 2024 12:00 AM NONVA CONSULT: LOCAL TITLE: COMMUNITY CARE-CONSULT RESULT NOTE STANDARD TITLE: NONVA CONSULT DATE OF NOTE: APR 07, 2024 ENTRY DATE: APR 28, 2024@09:42:38 AUTHOR: PING GUERIN EXP COSIGNER: URGENCY: STATUS: COMPLETED VistA Imaging - Scanned Document SCANNED DOCUMENT SIGNATURE NOT REQUIRED Electronically Filed: 04/28/2024 by: [facility]
--- OUTSIDE RECORDS SUMMARY | 2024-08-30 18:38 | XMS_ITS | Encounter Summary ---
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 Address [address] [place] [address] Care Team Providers Care Platform Power Technician Name Role Phone NOLAN VERDUZCO Primary Care [...] Segal's Name Patient's Relationship to Policy Segal [facility] ([facility]) MEDICARE ADVANTAGE [place] IN[place] - [place] Sep 21, 2023 [id number] [phone] MARVIN DUGANI S [facility]IENT [facility] ([facility]) MEDICARE ADVANTAGE [facility] ([facility]) Sep 21, 2023 [id number] [phone] DUGAN,GENET S PATIENT [place] MEDICAID H[place] PLAN May 22, 2022 MEDICAI D [id number] DUGAN,GENET S PATIENT MEDICARE ([facility]) MEDICARE (M) PART B May 22, 2022 PART B [id number] [id number] [phone] DUGAN,GENET S PATIENT MEDICARE ([facility]) MEDICARE (M) PART A Feb 19, 2009 PART A [id number] DUGAN,GENET S PATIENT MEDICARE PART D (WNR) MEDICARE (M) PART D Jul 22, 2022 PART D [id number] [id number] GENET DUGAN PATIENT [facility] (WNR) MEDICARE ADVANTAGE [facility] (WNR) Sep 21, 2022 [id number] GENET DUGAN PATIENT [facility] (WNR) MEDICARE ADVANTAGE [facility]CR (WNR) Sep 21, 2022 [id number] [phone] GENET DUGAN PATIENT Selected Encounter This section includes the information on record at [place] for the Encounter. Date/Time Encounter Type Encounter Description Reason Pro vider Source May 20, 2024 12:00 AM Outpatient Encounter EVENT (HISTORICAL) IHE Encounter Template Text not used by [place] Plan of Treatment: Future Appointments (+ 6 months) and Future Tests (+/- 45 days) The Plan of Treatment section includes future care activities for the patient from all [place] treatmentfacilities. This section includes future appointments and future orders which are active, pending or scheduled. Future Appointments This section includes appointments that were scheduled to occur 6 months from the date of the Encounter, up to a maximum of 20 appointments. The data comes from all [place] treatment facilities. Appointment Date/Time Appointment Type Appointme nt Facility Name May 31, 2024 10:00 AM AMBULATORY - MEDICINE [place] [facility] [place] [place] [facility] Jun 03, 2024 12:45 PM AMBULATORY - MEDICINE [place] [facility] [place] [facility] Jun 21, 2024 09:00 AM AMBULATORY - MEDICINE [place] [facility] [place] [facility] Aug 09, 2024 09:00 AM AMBULATORY - MEDICINE [place] [facility] [place] [facility] Aug 16, 2024 12:00 PM AMBULATORY - NONE [place] [facility] [facility] Aug 22, 2024 11:20 AM AMBULATORY - MEDICINE [place] [facility] [place] [facility] Aug 24, 2024 11:00 AM [facility] Advance Directives: All historical and current Section [...] Apr 04, 2024 ADVANCE DIRECTIVE CHAPINCITO DEE [facility] Encounter Notes: All associated encounter notes This section contains the clinical notes associated to the Encounter. Date/Time Encounter Note(s) Provider Source May 20, 2024 12:00 AM NONVA NOTE: LOCAL TITLE: NON-VA HOSPITALIZATIONS/ER STANDARD TITLE: NONVA NOTE DATE OF NOTE: MAY 20, 2024 ENTRY DATE: JUN 08, 2024@08:12:04 AUTHOR: ANIBAL SHEARER EXP COSIGNER: URGENCY: STATUS: COMPLETED VistA Imaging - Scanned Document SCANNED DOCUMENT SIGNATURE NOT REQUIRED Electronically Filed: 06/08/2024 by: ANIBAL SHEARER DATA ENTRY PROCESSOR [facility]AL SHE[facility]ER [place] [facility]
--- OUTSIDE RECORDS SUMMARY | 2024-08-30 18:38 | XMS_ITS | Encounter Summary ---
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 Address [address] [place] [address] Care Team Providers Care Special Educator Name Role Phone ONLAN VERDUZCO Primary Care Provider Unava ilable Insurance [...] Segal's Name Patient's Relationship to Policy Segal [facility] ([facility]) MEDICARE ADVANTAGE [place] Sep 21, 2023 [id number] [phone] MARVIN DUGANI S PATIENT [facility] ([facility]) MEDICARE ADVANTAGE [facility] ([facility]) Sep 21, 2023 [id number] [phone] DUGANMARVINI S PATIENT [place] MEDICAID H[place] PLAN May 22, 2022 MEDICAI D [id number] MARVIN DUGANI S PATIENT MEDICARE ([facility]) MEDICARE () PART B May 22, 2022 PART B [id number] DUGANMARVINI S PATIENT MEDICARE ([facility]) MEDICARE (M) PART A Feb 19, 2009 PART A [id number] DUGAN,GENET S PATIENT MEDICARE PART D (WNR) MEDICARE (M) PART D Jul 22, 2022 PART D [id number] [id number] GENET DUGAN PATIENT [facility] (WNR) MEDICARE ADVANTAGE MCR (WNR) Sep 21, 2022 [id number] GENET DUGAN PATIENT [facility] (WNR) MEDICARE ADVANTAGE MCR (WNR) Sep 21, 2022 [id number] GENET DUGAN PATIENT Selected Encounter This section includes the information on record at [place] for the Encounter. Date/Time Encounter Type Encounter Description Reason Pro vider Source Jun 13, 2024 09:42 AM Outpatient Encounter PRIMARY CARE/MEDICINE IHE Encounter [...] 21, 2024 09:00 AM AMBULATORY - MEDICINE [place] [facility] [place] [facility] Aug 09, 2024 09:00 AM AMBULATORY - MEDICINE [place] [facility] [place] [facility] Aug 16, 2024 12:00 PM AMBULATORY - NONE [place] [facility] [place] [facility] Aug 22, 2024 11:20 AM AMBULATORY - MEDICINE [place] [facility] [place] [facility] Aug 24, 2024 11:00 AM AMBULATORY - MEDICINE [facility] Advance Directives: All historical and [...] from all [facility]. Date Advance Directives Provider Source Apr 04, 2024 ADVANCE DIRECTIVE CHAPINCITO DEE [facility] Encounter Notes: All associated encounter notes This section contains the clinical notes associated to the Encounter. Date/Time Encounter Note(s) Provider Source Jun 13, 2024 09:42 AM PRIMARY CARE TELEP CONG ENCOUNTER NOTE: LOCAL TITLE: TELEPHONE NOTE/PRIMARY CARE STANDARD TITLE: PRIMARY CARE TELEPHONE ENCOUNTER NOTE DATE OF NOTE: JUN 13, 2024@09:42 ENTRY DATE: JUN 13, 2024@09:42:37 AUTHOR: DANIELE ROSE EXP COSIGNER: URGENCY: STATUS: COMPLETED Showroom Executive Director called to [ ] Schedule primary care appt [ ] Reschedule primary care appt. [X} Remind of upcoming primary care appt. SPOKE WITH: [X} Fasting blood work needed, and vet reminded. [ ] Non fasting blood work needed, and vet reminded. [ ] No labs needed. [ ] UNABLE TO REACH : [ ] Left voicemail. [ ] Unable to leave voicemail. [ ] No phone number available/no working phone number [ ] Mailed Letter Upcoming appt 06/21/24 @ 09:00 am. /mariana/ DANIELE ROSE AMSA Signed: 06/13/2024 09:43 DANIELE ROSEFIELD
--- OUTSIDE RECORDS SUMMARY | 2024-08-30 18:38 | XMS_ITS ---
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 Organization [place] Address [address] [place] [id number] Care Team Providers Care Case Management Social Worker Name Role Phone NOLAN VERDUZCO Primary [...] Segal's Name Patient's Relationship to Policy Segal [facility] ([facility]) MEDICARE ADVANTAGE [place] INDIV IDUAL - [place] Sep 21, 2023 [id number] [phone] MARVIN DUGANI S [facility]IENT [facility] MEDIC[facility] ADVANTAGE [facility] ([facility]) Sep 21, 2023 [id number] [phone] DUGAN,GENET S PATIENT [place] MEDICAID H[place] PLAN May 22, 2022 MEDICAI D [id number] DUGAN,GENET S PATIENT MEDICARE (WN) MEDICARE (M) PART B May 22, 2022 PART B [id number] DUGAN,GENET S PATIENT MEDICARE (WNR) MEDICARE (M) PART A Feb 19, 2009 PART A [id number] DUGAN,GENET S PATIENT MEDICARE PART D (WNR) MEDICARE (M) PART D Jul 22, 2022 PART D [id number] GENET DUGAN S PATIENT [facility] (WNR) MEDICARE ADVANTAGE [facility] (WNR) Sep 21, 2022 [id number] GENET DUGAN S PATIENT [facility] (WNR) MEDICARE ADVANTAGE MCR (WNR) Sep 21, 2022 [id number] [phone] GENET DUGAN PATIENT Selected Encounter This section includes the information on record at [place] for the Encounter. Date/Time Encounter Type Encounter Description Reason Pro vider Source Jun 07, 2024 10:31 AM Outpatient Encounter ADMIN PAT ACTIVTIES (MASNONCT) IHE Encounter Template Text not used by [place] Plan of Treatment: Future Appointments (+ 6 months) and Future Tests (+/- 45 days) The Plan of Treatment section includes future care activities for the patient from all [place] treatmentfacilities. This section includes future appointments and future orders which are active, pending or scheduled. Future Appointments This section includes appointments that were scheduled to occur 6 months from the date of the Encounter, up to a maximum of 20 appointments. The data comes from all [place] treatment facilities. Appointment Date/Time Appointment Type Appointme nt Facility Name Jun 21, 2024 09:00 AM AMBULATORY - [facility]ICINE [facility] [place] [facility] Aug 09, 2024 09:00 AM AMBULATORY - [facility]ICINE [facility] [place] [facility] Aug 16, 2024 12:00 [facility] [place] [facility] Aug 22, 2024 11:20 AM AMBULATORY - MEDICINE [facility] [place] [facility] Aug 24, 2024 11:00 AM AMBULATORY - MEDICINE [facility] Advance Directives: All historical and current Section Date Range: From patient's date of to the date document was created. This section includes ALL of a patient's completed or amended [place] Advance and Rescinded Directives. The entries below indicate that a directive exists for the patient, but an actual copy is not included with this document. The data comes from all [facility]. Date Advance Directives Provider Source Apr 04, 2024 ADVANCE DIRECTIVE CHAPINCITO DEE Encounter Notes: All associated encounter notes This section contains the clinical notes associated to the Encounter. Date/Time Encounter Note(s) Provider Source Jun 07, 2024 11:04 AM ADDENDUM: LOCAL TITLE: Addendum STANDARD TITLE: ADDENDUM DATE OF NOTE: JUN 07, 2024@11:04:25 ENTRY DATE: JUN 07, 2024@11:04:26 AUTHOR: JELANI BRANDON EXP COSIGNER: URGENCY: STATUS: COMPLETED Defer to MSA to book. /mariana/ WAGNER MOORE,RN-BC REGISTERED NURSE (RN) Signed: 06/07/2024 11:04 Receipt Acknowledged By: 06/07/2024 13:58 /mariana/ DANIELE MCINTYRE === --- Original Document --- 06/07/24 CCC: SCHEDULING ADMINISTRATION: Patient Demographics Patient Name: JAKE DUGAN Patient Primary Phone: [phone] Patient Primary Address: [address] [place] [address] Patient : 1945 Patient Age: 79 Current Location: [facility] Call Back Number: [phone] Caller/Recipient Relation to Patient: Other If Other Describe Relation to Patient: Environmental Scientist Caller Name: Ivanna Administrative Administrative Note Reason: Other Administrative Note Comments: Ivanna ([facility], [place], [place]/[phone]) called to schedule a pre-op appt for patient prior to07/06 left cataract surgery . Ivanna states that is scheduled for right cataract surgery on 07/19. Will defer to PACT for assistance. Jean can be reached @ [phone]. Thank you. IMPORTANT: This note was created by [facility] Contact [facility] staff. Please do not alert the staff member by adding them as a signer for future communications. Alerts are not monitored by this user. /mariana/ LIANE MCINTYRE Signed: 06/07/2024 10:31 Receipt Acknowledged By: * AWAITING SIGNATURE * ISABEL FREDERICK 06/07/2024 11:04 /mariana/ WAGNER MOORE,RN-BC REGISTERED NURSE (RN) 06/07/2024 ADDENDUM STATUS: COMPLETED Leather Piece Inspector scheduled pre-op appt on 06/16/24 @ 01:00 pm f2f. /mariana/ DANIELE MCINTYRE Signed: 06/07/2024 13:58 JELANI BRANDON [place] [facility] [place] [facility] Jun 07, 2024 10:31 AM ADMINISTRATIVE NOTE: LOCAL TITLE: CCC: SCHEDULING ADMINISTRATION STANDARD TITLE: ADMINISTRATIVE NOTE DATE OF NOTE: JUN 07, 2024@10:31:08 ENTRY DATE: JUN 07, 2024@10:31:09 AUTHOR: LIANE GRIMM COSIGNER: URGENCY: STATUS: COMPLETED CCC: SCHEDULING ADMINISTRATION Has ADDENDA Patient Demographics Patient Name: JAKE DUGAN Patient Primary Phone: [phone] Patient Primary Address: [address] [place] [address] Patient : 1945 Patient Age: 79 Current Location: [facility] Call Back Number: [phone] Caller/Recipient Relation to Patient: Other If Other Describe Relation to Patient: Environmental Scientist Caller Name: Ivanna Administrative Administrative Note Reason: Other Administrative Note Comments: Ivanna ([facility], [place], [place]/[phone]) called to schedule a pre-op appt for patient prior to07/06 left cataract surgery . Ivanna states that is scheduled for right cataract surgery on 07/19. Will defer to PACT for assistance. Jean can be reached @ [phone]. Thank you. IMPORTANT: This note was created by [facility] Contact [facility] staff. Please do not alert the staff member by adding them as a signer for future communications. Alerts are not monitored by this user. /mariana/ LIANE MCINTYRE Signed: 06/07/2024 10:31 Receipt Acknowledged By: 06/09/2024 09:28 /es/ ISABEL FREDERICK LPN LPN 06/07/2024 11:04 /es/ WAGNER MOORE,RN-BC REGISTERED NURSE (RN) 06/07/2024 ADDENDUM STATUS: COMPLETED Defer to MSA to book. /mariana/ WAGNER MOORE,RN-BC REGISTERED NURSE (RN) Signed: 06/07/2024 11:04 Receipt Acknowledged By: 06/07/2024 13:58 /mariana/ DANIELE MCINTYRE 06/07/2024 ADDENDUM STATUS: COMPLETED Leather Piece Inspector scheduled pre-op appt on 06/16/24 @ 01:00 pm f2f. /mariana/ DANIELE MCINTYRE Signed: 06/07/2024 13:58 LIANE GRIMM [facility]
--- OUTSIDE RECORDS SUMMARY | 2024-08-30 18:38 | XMS_ITS ---
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 Organization Department [place] Address [address] [place] [address] Care Team Providers Care Potato Peeler Name Role Phone NOLAN VERDUZCO Primary Care [...] Relationship to Policy Segal [facility] ([facility]) MEDICARE ADVANTAGE [place] INDIV IDUAL - [place] Sep 21, 2023 [id number] [phone] MARVIN DUGANI S PATIENT [facility] ([facility]) MEDICARE ADVANTAGE [facility] ([facility]) Sep 21, 2023 [id number] [phone] DUGANMARVINI S PATIENT [place] MEDICAID H[place] PLAN May 22, 2022 MEDICAI D [id number] MARVIN DUGANI S PATIENT MEDICARE ([facility]) MEDICARE () PART B May 22, 2022 PART B [id number] [phone] DUGANMARVINI S PATIENT MEDICARE ([facility]) MEDICARE (M) PART A Feb 19, 2009 PART A [id number] DUGAN,GENET S PATIENT MEDICARE PART D (WNR) MEDICARE (M) PART D Jul 22, 2022 PART D [id number] GENET DUGAN S PATIENT [facility] (WNR) MEDICARE ADVANTAGE [facility] (WNR) Sep 21, 2022 [id number] [phone] GENET DUGAN S PATIENT [facility] (WNR) MEDICARE ADVANTAGE MCR (WNR) Sep 21, 2022 [id number] GENET DUGAN PATIENT Selected Encounter This section includes the information on record at [place] for the Encounter. Date/Time Encounter Type Encounter Description Reason Pro vider Source Jun 01, 2024 12:00 PM Outpatient Encounter COMMUNITY CARE CONSULT IHE Encounter Template Text not used by [place] Plan of Treatment: Future Appointments (+ 6 [...] Appointment Type Appointme nt Facility Name Jun 03, 2024 12:45 PM AMBULATORY - MEDICINE [place] [facility] [place] [place] [facility] Jun 21, 2024 09:00 AM AMBULATORY - MEDICINE [place] [facility] [place] [facility] Aug 09, 2024 09:00 AM AMBULATORY - MEDICINE [place] [facility] [place] [facility] Aug 16, 2024 12:00 PM AMBULATORY - NONE [place] [facility] [place] [facility] Aug 22, 2024 11:20 AM AMBULATORY - MEDICINE [place] [facility] [place] [facility] Aug 24, 2024 11:00 AM AMBULATORY - MEDICINE [facility] Advance Directives: All historical and current Section Date Range: From patient's date of to the date document was created. This section includes ALL of a patient's completed or amended [place] Advance and Rescinded Directives. The entries below indicate that a directive exists for the patient, but an actual copy is not included with this document. The data comes from all [place] facilities. Date Advance Directives Provider Source Apr 04, 2024 ADVANCE DIRECTIVE LEILA,CHAPINCITO M [facility] Encounter Notes: All associated encounter notes This section contains the clinical notes associated to the Encounter. Date/Time Encounter Note(s) Provider Source Jun 01, 2024 12:00 PM NONVA CONSULT: LOCAL TITLE: COMMUNITY CARE-CONSULT RESULT NOTE STANDARD TITLE: NONVA CONSULT DATE OF NOTE: JUN 01, 2024@12:00 ENTRY DATE: JUN 17, 2024@15:02:08 AUTHOR: ANIBAL SHEARER EXP COSIGNER: URGENCY: STATUS: COMPLETED VistA Imaging - Scanned Document SCANNED DOCUMENT SIGNATURE NOT REQUIRED Electronically Filed: 06/17/2024 by: ANIBAL SHEARER MANAGED CARE DIRECTOR ANIBAL SHEARER [place] [facility]
--- OUTSIDE RECORDS SUMMARY | 2024-08-30 18:38 | XMS_ITS | Encounter Summary ---
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 Organization [place] Address [address] [place] [id number] Care Team Providers Care Service Center Manager Name Role Phone NOLAN VERDUZCO Primary [...] Name Patient's Relationship to Policy Segal [facility] ([facility]) MEDICARE AD[place]ANTAGE [place] IN[place] - [place] Sep 21, 2023 [id number] [phone] GENET DUGAN S PATIENT [facility] ([facility]) MEDICARE ADVANTAGE [facility] ([facility]) Sep 21, 2023 [id number] [phone] DUGAN,GENET S PATIENT [place] MEDICAID H[place] PLAN May 22, 2022 MEDICAI D [id number] GENET DUGAN S PATIENT MEDICARE ([facility]) MEDICARE () PART B May 22, 2022 PART B [id number] MARVIN DUGANI S PATIENT MEDICARE ([facility]) MEDICARE () PART A Feb 19, 2009 PART A [id number] [phone] MARVIN DUGANI S PATIENT MEDICARE PART D (WNR) MEDICARE (M) PART D Jul 22, 2022 PART D [id number] [phone] GENET DUGAN S PATIENT [facility] (WNR) MEDICARE ADVANTAGE [facility] (WNR) Sep 21, 2022 [id number] GENET DUGAN PATIENT [facility] (WNR) MEDICARE ADVANTAGE MCR (WNR) Sep 21, 2022 [id number] [phone] GENET DUGAN PATIENT Selected Encounter This section includes the information on record at [place] for the Encounter. Date/Time Encounter Type Encounter Description Reason Provider Source May 31, 2024 10:00 AM OFF/OP EST JANUARY X REQ PHY/QHP PRIMARY CARE/MEDICINE ICD-10-CM Z23 Encounter for immunization NIK BRANDON [facility] Encounter Template Text not used by [place] Assessments - Encounter Diagnoses This section includes the primary and secondary diagnoses documented for the Encounter. Date/Time Primary/Secondary Diagnosis Diagnosis Name Provider Source May 31, 2024 10:09 AM PRIMARY Encounter for immunization JENNIFER BRANDON [place] Plan of Treatment: Future Appointments (+ 6 months) and Future Tests (+/- 45 days) The Plan of Treatment section includes future care activities for the patient from all [place] [facility] This section includes future appointments and future orders which are active, pending or scheduled. Future Appointments This section includes appointments that were scheduled to occur 6 months from the date of the Encounter, up to a maximum of 20 appointments. The data comes from all [place] treatment facilities. Appointment Date/Time Appointment Type Appointme nt Facility Name Jun 03, 2024 12:45 PM AMBULATORY - MEDICINE [place] [facility] Jun 21, 2024 09:00 AM AMBULATORY - MEDICINE [place] [facility] Aug 09, 2024 09:00 AM AMBULATORY - MEDICINE [place] [facility] Aug 16, 2024 12:00 PM AMBULATORY - NONE [place] [place] [facility] Aug 22, 2024 11:20 AM AMBULATORY - MEDICINE [place] [facility] Aug 24, 2024 11:00 AM AMBULATORY - MEDICINE [place] Immunizations: All administered on the encounter date This section contains immunizations associated to the Encounter. Immunization Series Date Issued Reaction Comments INFLUENZA, HIGH-DOSE, TRIVALENT, PF May 31 Social History: Smoking Status (Most current) and Tobacco Use (All prior to encounter date) This section includes the most current, and the historical, smoking and tobacco- related health factors from the [place] facility where the Encounter took place. Current Smoking Status This section includes the most current smoking, or tobacco-related health factor, from the [place] facility where the Encounter took place. Date/Time Current Smoking Status Comment Facil ity May 31, 2024 10:00 AM VA-TOBACCO NEVER USED [place] Tobacco Use History This section includes a history of the smoking, or tobacco-related health factors, that were collected on or before the date of the Encounter. The data comes from the [facility] where the Encounter took place. Date/Time Smoking Status/Tobacco Use Comment F acility Jun 23, 2023 09:00 AM VA-TOBACCO FORMER USER [place] Jun 23, 2023 09:00 AM VA-TOBACCO QUIT 15 YRS OR MORE [place] May 01, 2022 01:30 PM VA-TOBACCO FORMER USER [place] May 01, 2022 01:30 PM VA-TOBACCO QUIT 15 YRS OR MORE [place] Apr 15, 2021 03:00 PM VA-TOBACCO FORMER USER [place] Apr 15, 2021 03:00 PM VA-TOBACCO QUIT 15 YRS OR MORE [place] Oct 20, 2018 12:53 PM VA-TOBACCO FORMER USER [place] Oct 20, 2018 12:53 PM VA-TOBACCO QUIT 15 YRS OR MORE [place] Jul 03, 2017 10:33 AM QUIT TOBACCO USE > 7 YEARS AGO quit 25yrs ago [place] February 13, 2016 08:46 AM LIFETIME NON-TOBACCO USER [place] Advance Directives: All historical and current Section Date Range: From patient's date of to the date document was created. This section includes ALL of a patient's completed or amended [place] Advance and Rescinded Directives. The entries below indicate that a directive exists for the patient, but an actual copy is not included with this document. The data comes from all [facility]. Date Advance Directives Provider Source Apr 04, 2024 ADVANCE DIRECTIVE CHAPINCITO DEE [facility] Encounter Notes: All associated encounter notes This section contains the clinical notes associated to the Encounter. Date/Time Encounter Note(s) Provider Source May 31, 2024 09:54 AM NURSING NOTE: LOCAL TITLE: PRIMARY CARE NURSE NOTE STANDARD TITLE: NURSING NOTE DATE OF NOTE: MAY 31, 2024@09:54 ENTRY DATE: MAY 31, 2024@09:54:58 AUTHOR: JENNIFER BRANDON EXP COSIGNER: URGENCY: STATUS: COMPLETED F: JAKE DUGAN is a 79 yo male presenting to the clinic for a scheduled injection of FLU VACCINE per NOLAN VERDUZCO. Dx: IMMUNIZATION D/A: Influenza Immunization: Influenza, High-Dose, Trivalent, Preservative Free (Fluzone-Syringe) Administered: INFLUENZA, HIGH-DOSE, TRIVALENT, PF Date Administered: May 31, 2024 10:00 Cigar Head Perforator: SANOFI PASTEUR Lot: [id number] Exp Date: Mar 20, 2025 [facility]: [phone] Admin Route/Site: INTRAMUSCULAR/LEFT DELTOID Dosage: 0.5mL Vaccine Information Statement(s): INFLUENZA(FLU) VACC(INACTIVATED OR RECOMBINANT)VIS Apr 26, 2021 ([facility]) Order By: Policy Administered By: Jennifer Brandon Override Reason: PT. REQUESTED PATIENT EDUCATION - SIDE EFFECTS VACCINATION/INJECTION Advised pt of the following POSSIBLE side effects and to call us if any of these symptoms are severe or do not go away: pain at injection site Advised of SERIOUS side effects and to call us immediately or get emergency medical treatment if you experience: wheezing or difficulty breathing shortness of breath cough chest tightness flushing hives swelling of the face, mouth, and tongue difficulty swallowing fainting or dizziness RTC in 0 weeks for next injection. Upcoming Appointments: 06/03/2024 12:45 [facility] CARE-OPHTHALMOLOGY 06/21/2024 09:00 CWM/SO/PACT 9 10/28/2024 10:00 CWM/SO/PACT 9 01/02/2025 10:00 CWM/NO/OPTOMETRY/MERHAR No barriers; Patient understands and agrees to current treatment plan. If pt has any questions, concerns, or changes in current health status he will call or come [facility] to the [facility]. 10 minutes spent in patient care and education CLINICAL REMINDERS Depression Screening: Perform PHQ-2 A PHQ-2 screen was performed. The score was 0 which is a negative screen for depression. Over the past two weeks, how often have you been bothered by the following problems? 1. Little interest or pleasure in doing things Not at all 2. Feeling down, depressed, or hopeless Not at all Suicide Screen: C-SSRS Screening [place] Suicide Severity Rating Scale (C-SSRS) screener 1. Over the past month, have you wished you were or wished you could go to sleep and not wake up? No 2. Over the past month, have you had any actual thoughts of killing yourself? No 3. Over the past month, have you been thinking about how you might do this? Response not required due to responses to other questions. 4. Over the past month, have you had these thoughts and had some intention of acting on them? Response not required due to responses to other questions. 5. Over the past month, have you started to work out or worked out the details of how to kill yourself? Response not required due to responses to other questions. 6. If yes, at any time in the past month did you intend to carry out this plan? Response not required due to responses to other questions. 7. In your lifetime, have you ever done anything, started to do anything, or prepared to do anything to end your life (for example, collected pills, obtained a gun, gave away valuables, went to the roof but didn't jump)? No 8. If YES, was this within the past 3 months? Response not required due to responses to other questions. Tobacco Use Screening: The patient has never used tobacco. Alcohol Use Screen (AUDIT-C): Alcohol Screen: SCREEN FOR ALCOHOL (AUDIT-C) An alcohol screening test (AUDIT-C) was negative (score=0). 1. How often did you have a drink containing alcohol in the past year? Consider a drink to be a 12 ounce can or bottle of regular beer, 8 ounces of malt liquor, a 5 ounce glass of table wine, or a 1.5 ounce shot of liquor (like scotch, gin, or vodka). Never 2. How many drinks containing alcohol did you have on a typical day when you were drinking in the past year? Response not required due to responses to other questions. 3. How often did you have six or more drinks on one occasion in the past year? Response not required due to responses to other questions. COVID-19- Not available /es/ WAGNER MOORE,RN-BC REGISTERED NURSE (RN) Signed: 05/31/2024 10:09 JENNIFER BRANDON
--- OUTSIDE RECORDS SUMMARY | 2024-08-30 18:39 | XMS_ITS ---
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 Address [address] [place] [address] Care Team Providers Care Bridge Maintenance Worker Name Role Phone NOLAN VERDUZCO Primary [...] Segal's Name Patient's Relationship to Policy Segal [facility] ([facility]) MEDICARE ADVANTAGE [place] INDIV IDUAL - [place] Sep 21, 2023 [id number] [phone] MARVIN DUGANI S PATIENT [facility] ([facility]) MEDICARE ADVANTAGE [facility] ([facility]) Sep 21, 2023 [id number] [phone] DUGANMARVINI S PATIENT [place]KY MEDICAID HUSKY PLAN May 22, 2022 MEDICAI D [id number] MARVIN DUGANI S PATIENT MEDICARE ([facility]) MEDICARE () PART B May 22, 2022 PART B [id number] DUGANMARVINI S PATIENT MEDICARE ([facility]) MEDICARE (M) PART A Feb 19, 2009 PART A [id number] DUGAN,GENET S PATIENT MEDICARE PART D (WNR) MEDICARE (M) PART D Jul 22, 2022 PART D [id number] GENET DUGAN S PATIENT [facility] (WNR) MEDICARE ADVANTAGE [facility] (WNR) Sep 21, 2022 [id number] [phone] GENET DUGAN S PATIENT [facility] MCR (WNR) MEDICARE ADVANTAGE MCR (WNR) Sep 21, 2022 [id number] GENET DUGAN PATIENT Selected Encounter This section includes the information on record at [place] for the Encounter. Date/Time Encounter Type Encounter Description Reason Pro vider Source Jul 07, 2024 12:42 PM Outpatient Encounter COMMUNITY CARE CONSULT IHE [...] Date/Time Appointment Type Appointme nt Facility Name Aug 09, 2024 09:00 AM AM[place]UL[place]ORY [place] [facility] [place] [facility] Aug 16, 2024 12:00 PM AMBULATORY - NONE [facility] [place] [facility] Aug 22, 2024 11:20 AM [place]ORY [place] [facility] [place] [facility] Aug 24, 2024 11:00 AM [facility] Dec 13, 2024 01:30 PM [facility] Jan 02, 2025 10:00 AM [facility] Active, Pending, and Scheduled Orders This section includes a listing of several types of active, pending, and scheduled orders, including clinic medications orders, diagnostic test orders, procedure orders and consult orders; where the start date of the order is 45 days before the date of the Encounter or 45 days after the date of theEncounter. The data comes from all [place] treatment [facility]. Test Date/Time Test Type Test Details Facility Name Aug 09, 2024 09:40 AM Consult Order COMMUNITY CARE-UROLOGY Cons Project Management Advisor's Choice [place] [facility] Advance Directives: All historical and [...] Apr 04, 2024 ADVANCE DIRECTIVE [facility] Encounter Notes: All associated encounter notes This section contains the clinical notes associated to the Encounter. Date/Time Encounter Note(s) Provider Source Jul 07, 2024 12:43 PM NONVA NOTE: LOCAL TITLE: [facility] SELF PRESENTING CARE COORD PLAN STANDARD TITLE: NONVA NOTE DATE OF NOTE: JUL 07, 2024@12:43 ENTRY DATE: JUL 07, 2024@12:43:08 AUTHOR: IKE BRODY EXP COSIGNER: URGENCY: STATUS: COMPLETED Emergency Notification Intake Date Presenting to the Facility: Apr Method of Contact: Notified from ECR worklist Notification ID: [id number] [facility] Referral #: [id number] [facility] Hospital Name: Hospital: [facility] Address: City: [place] State: [place] Zip Code: Phone : [facility] Facility Point of Contact: Name: Alfonzo Phone: Chief complaint: abd pain Primary Diagnosis: Disposition Discharged Date of discharge: Apr Discharge to Comment: ER Only /mariana/ IKE MCINTYRE Signed: 07/07/2024 12:45 Receipt Acknowledged By: * AWAITING SIGNATURE * BLANCA ARELLANO * AWAITING SIGNATURE * RORO OSBORN * AWAITING SIGNATURE * SARAH YANEZ * AWAITING SIGNATURE * TIMA JEFFERSON DAWN MARIE SELTZER
--- OUTSIDE RECORDS SUMMARY | 2024-08-30 18:39 | XMS_ITS | Encounter Summary ---
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 Organization [place] Address [address] [place] [address] Care Team Providers Care Bonding Equipment Operator Name Role Phone NOLAN VERDUZCO Primary [...] Segal's Name Patient's Relationship to Policy Segal [facility] ([facility]) MEDICARE ADVANTAGE [place] INDIV IDUAL - [place] Sep 21, 2023 [id number] [phone] GENET DUGAN S PATIENT [facility] ([facility]) MEDICARE [facility] ([facility]) Sep 21, 2023 [id number] [phone] GENET DUGAN S PATIENT [place] MEDICAID H[place] PLAN May 22, 2022 MEDICAI D [id number] GENET DUGAN S PATIENT MEDICARE ([facility]) MEDICARE () PART B May 22, 2022 PART B [id number] GENET DUGAN S PATIENT MEDICARE ([facility]) MEDICARE () PART A Feb 19, 2009 PART A [id number] GENET DUGAN S PATIENT MEDICARE PART D (WNR) MEDICARE (M) PART D Jul 22, 2022 PART D [id number] GENET DUGAN S PATIENT [facility] (WNR) MEDICARE ADVANTAGE [employer] (WNR) Sep 21, 2022 [id number] [phone] GENET DUGAN S PATIENT [facility] (WNR) MEDICARE ADVANTAGE [employer] (WNR) Sep 21, 2022 [id number] GENET DUGAN PATIENT Selected Encounter This section includes the information on record at [place] for the Encounter. Date/Time Encounter Type Encounter Description Reason Provider Source Jun 21, 2024 09:00 AM OFFICE O/P EST MOD 30 MIN PRIMARY CARE/MEDICINE ICD-10-CM Z01.810 Encounter for preprocedural cardiovascular examination GAVIOTA VERDUZCO [place] Encounter Template Text not used by [place] Assessments - Encounter Diagnoses This section includes the primary and secondary diagnoses documented for the Encounter. Date/Time Primary/Secondary Diagnosis Diagnosis Name Provider Source Jun 30, 2024 01:24 PM PRIMARY Encounter for preprocedural cardiovascular examination HAYLEY VERDUZCO [place] Plan of Treatment: Future Appointments (+ 6 [...] - MEDICINE [place] [facility] [place] [facility] Aug 16, 2024 12:00 PM AMBULATORY - NONE [place] [facility] [place] [facility] Aug 22, 2024 11:20 AM AM[place]ULATORY - [place]IC[place] [facility] [place] [facility] Aug 24, 2024 11:00 AM AM[place]ULATORY - [place]ICINE [place] [place] Dec 13, 2024 01:30 PM AMBULATORY - MEDICINE [place] [place] Social History: Smoking Status (Most current) and Tobacco Use (All prior to encounter date) This section includes the most current, and the historical, smoking and tobacco- related health factors from the [facility] facility where the Encounter took place. Current Smoking Status This section includes the most current smoking, or tobacco-related health factor, from the [place] facility where the Encounter took place. Date/Time Current Smoking Status Comment [facility] May 31, 2024 10:00 AM VA-TOBACCO NEVER USED [facility] Tobacco Use History This section includes a history of the smoking, or tobacco-related health factors, that were collected on or before the date of the Encounter. The data comes from the [place] facility where the Encounter took place. Date/Time Smoking Status/Tobacco Use Comment F acility Jun 23, 2023 09:00 AM VA-TOBACCO FORMER USER [facility] Jun 23, 2023 09:00 AM VA-TOBACCO QUIT 15 YRS OR MORE [facility] May 01, 2022 01:30 PM VA-TOBACCO FORMER USER [facility] May 01, 2022 01:30 PM VA-TOBACCO QUIT 15 YRS OR MORE [facility] Apr 15, 2021 03:00 PM VA-TOBACCO FORMER USER [facility] Apr 15, 2021 03:00 PM VA-TOBACCO QUIT 15 YRS OR MORE [facility] Oct 20, 2018 12:53 PM VA-TOBACCO FORMER USER [facility] Oct 20, 2018 12:53 PM VA-TOBACCO QUIT 15 YRS OR MORE [place] Jul 03, 2017 10:33 AM QUIT TOBACCO USE > 7 YEARS AGO quit 25yrs ago [facility] February 13, 2016 08:46 AM LIFETIME NON-TOBACCO USER [facility] Advance Directives: All historical and current Section [...] Encounter. Date/Time Encounter Note(s) Provider Source Jun 21, 2024 10:05 AM LETTERS: LOCAL TITLE: PATIENT LETTER (T) STANDARD TITLE: LETTERS DATE OF NOTE: JUN 21, 2024@10:05 ENTRY DATE: JUN 21, 2024@10:05:33 AUTHOR: NOLAN VERDUZCO EXP COSIGNER: URGENCY: STATUS: COMPLETED DEPARTMENT OF [facility] Toll Free Number Primary Care Telephone Assistance can be reached at extension [phone] [facility] scheduling can be reached at extension [phone] [facility] scheduling can be reached at ext [phone] As per your request, the most recent sexually transmitted infection screening are as follows: Report Released Date/Time: Jun 24, 2023@11:41 Provider: NOLAN VERDUZCO Specimen: SERUM. 1004 6 Specimen Collection Date: Jun 24, 2023@07:39 Test name Result units Ref. range Site Code HIV 1&2 Ag/Ab SCREEN NON-REACTIVE GC PCR NOT DETECTED Ref: Not Detected [631] CT PCR NOT DETECTED Ref: Not Detected [631] Comment: Test performed on the Vestec Genexpert. A negative test results does not exclude the possibility of infection because results may be affected by improper specimen collection, concurrent antibiotic therapy, or the number of organisms in the specimen which may be below the sensitivity of the test. = Sincerely, Your Primary Care Team [facility] [address] [facility] [address] [place] [address] [place] [address] [phone] [facility] [address] [place] [address] [address] [place] [address] [place] [address] [phone] [facility] [address] [facility] [facility] [place] [address] [place] [address] NOLAN VERDUZCO [place] Jun 21, 2024 09:44 AM PREVENTIVE MEDICIN E NURSING NOTE: LOCAL TITLE: CLINICAL REMINDERS/NURSING STANDARD TITLE: PREVENTIVE MEDICINE NURSING NOTE DATE OF NOTE: JUN 21, 2024@09:44 ENTRY DATE: JUN 21, 2024@09:44:55 AUTHOR: ISABEL FREDERICK EXP COSIGNER: URGENCY: STATUS: COMPLETED COVID-19 Immunization: Referred to another clinic for immunization (desired vaccine unavailable at this location) HTN Assess for Elevated BP>=140/90: The patient was counseled on the importance of regular exercise and/or physical activity in the control of blood pressure. MED REC COMPLETED BY PROVIDER DURING THE VISIT. /mariana/ ISABEL FREDERICK LPN LPN Signed: 06/21/2024 09:45 ISABEL FREDERICK [place] Jun 21, 2024 08:33 AM PHYSICIAN NOTE: LOCAL TITLE: MD NOTE STANDARD TITLE: PHYSICIAN NOTE DATE OF NOTE: JUN 21, 2024@08:33 ENTRY DATE: JUN 21, 2024@08:33:27 AUTHOR: NOLAN VERDUZCO EXP COSIGNER: URGENCY: STATUS: COMPLETED CC: 79 year old DECLINED TO ANSWER MALE SERVICE CONNECTED % - 50 HPI: Presents today for pre-op appt for LEFT cataract surgery on 07/06 followed by RIGHT cataract surgery on 07/19. Patient reports no fever chills or night sweats. Reports of no sore throat, cough, shortness of breath, chest pain. Patient denies any nasal congestion or sinus pain at this time. Patient is followed by community urology and his catheter is actually going to be trial removed again sometime today. Of note the patient did repossess the home from the daughter. He is currently trying to rehabilitate home and in the last 3 weeks has been working to repair a number of things close left in disarray. He reports of no other problems. He reports minor aches and pains which he just takes [id number] Tylenol with good resolution. He did report that he was going down [place] in the next month. Asked for a copy of the copy of his STD results. Last seen 4 mo ago: ...ASSESSMENT & PLAN: 79 year old MALE SERVICE CONNECTED % - 50 [place] presents for follow-up. Much more at ease as his daughter is planing to vacate his house in 2 weeks. He's also happy that his urination is back to normal. Letter requested about his prostate cancer generated. Exam unchanged but also have encouraged him to do his routine labs. He anticipated gogin back to [place] by six months. RTC 6mos Problem list and medications reviewed. Last Labs: November 2023 Active problems - Computerized Problem List is the source for the followin. Carcinoma in situ of prostate followed by [facility] 2. Olecranon bursitis 3. Loss of teeth - acquired vet needs dentures/ recurrent gum/dental infections/ empric abx Apr 2022 4. History of partial adherence to treatment Sep 2020 - noted lapses in lisinopril refills 5. Paraesthesia of lower extremity (SNOMED CT [id number]) previously on gabapentin recently with objective signs of dminished circulation to LEFT foot only initial screen for metabolic/nutritional causes of neuropathy unrevealing No show to neurology NCS, Summer 2020 No show to Vascular consult, Summer 2020 6. status post appendectomy 7. Diverticular disease normal colonoscopy August, 8. Osteoarthritis (SNOMED CT [id number]) C/S worst at C6-C7 09/06 mod OA Interphalamgeal joint right thumb 09/06 9. Generalized anxiety disorder 10. Epilepsy [facility] [phone], CELINA Link OV 12-05-15 11. Essential hypertension [facility] [phone], [place]INA Link OV 12-05-15 12. Atypical chest pain [place] [id number], CELINA Link OV 12-05-15 02/13/16 EKG NSR 12/30/17 EKG NSR PHYSICAL EXAMINATION/DIRECTED EXAM: BP:147/73 (06/21/2024 09:42) Resp:20 (06/21/2024 09:42) Temp:96.4 F [35.8 C] (06/21/2024 09:42) Pulse:20 (06/21/2024 09:42) WEIGHT 06/21/2024 09:42 207(93.89)[30*] 04/27/2024 10:09 184(83.46)[26] 03/21/2024 09:53 186(84.37)[27] Comfortable S1S2 RRR lungs CTA Benign abdomen No edema ASSESSMENT & PLAN: 79 year old MALE SERVICE CONNECTED % - 50 presents for preoperative evaluation for cataract surgery. Based on present clinical history, physical exam as well as review of records, there is no contraindication to proceed with proposed elective procedure. Patient is cleared for surgery. Hypertension on lisinopril. The patient's blood pressure has varied in the clinic from the 100-teens systolic to 140s; typically variable with his emotional state as it pertains to his ongoing psychosocial stressors. Based on the viability, his blood pressure medications are adequate at this time and will not require any adjustments. He is cautioned to relax and continue to take his medications well into the days before surgery. Plan of care discussed with patient who articulates understanding. Chronic issues reviewed briefly; no changes to management unless specified above. RTC as prior arrangements TIME ATTESTATION: Time spent directly with the [...] of labs/studies and medication list. Upcoming Appointments: 10/28/2024 10:00 CWM/SO/PACT 9 01/02/2025 10:00 CWM/NO/OPTOMETRY/MERHAR Med Reconciliation: [...] days Provider: PINKY HERRERA Expires: 03/23/24 Status: Medication (Remote) Status No remote medications found. /mariana/ NOLAN VERDUZCO MD PHYSICIAN Signed: 06/30/2024 13:24 NOLAN VERDUZCO [place]
--- OUTSIDE RECORDS SUMMARY | 2024-08-30 18:39 | XMS_ITS | Encounter Summary ---
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 Organization [place] Address [address] [place] [id number] Care Team Providers Care Buildings Painter Name Role Phone NOLAN VERDUZCO Primary Care [...] Segal's Name Patient's Relationship to Policy Segal [facility] ([facility]) MEDICARE ADVANTAGE [place] INDIV IDUAL - [place] Sep 21, 2023 [id number] [phone] MARVIN DUGANI S [facility]IENT [facility]) MEDICARE ADVANTAGE [facility] ([facility]) Sep 21, 2023 [id number] [phone] DUGANMARVINI S PATIENT HUSKY MEDICAID HUSKY PLAN May 22, 2022 MEDICAI D [id number] MARVIN DUGANI S PATIENT MEDICARE ([facility]) MEDICARE () PART B May 22, 2022 PART B [id number] DUGANMARVINI S PATIENT MEDICARE ([facility]) MEDICARE (M) PART A Feb 19, 2009 PART A [id number] DUGAN,GENET S PATIENT MEDICARE PART D (WNR) MEDICARE (M) PART D Jul 22, 2022 PART D [id number] GENET DUGAN S PATIENT [facility] (WNR) MEDICARE ADVANTAGE [facility] (WNR) Sep 21, 2022 [id number] GENET DUGAN S PATIENT [facility] (WNR) MEDICARE ADVANTAGE MCR (WNR) Sep 21, 2022 [id number] [phone] GENET DUGAN PATIENT Selected Encounter This section includes the information on record at [place] for the Encounter. Date/Time Encounter Type Encounter Description Reason Pro vider Source Jul 18, 2024 04:55 PM Outpatient Encounter COMMUNITY CARE CONSULT IHE Encounter Template Text not used by [place] Plan of Treatment: Future Appointments (+ 6 months) and Future Tests (+/- 45 days) The Plan of Treatment section includes future care activities for the patient from all [place] treatmentfacilities. This section includes future appointments and future orders which are active, pending or scheduled. Future Appointments This section includes appointments that were scheduled to occur 6 months from the date of the Encounter, up to a maximum of 20 appointments. The data comes from all [place] treatment facilities. Appointment Date/Time Appointment Type Appointme nt Facility Name Aug 09, 2024 09:00 AM AMBULATORY - MEDICINE [place] [facility] [place] [facility] Aug 16, 2024 12:00 PM AMBULATORY - NONE [facility] [place] [facility] Aug 22, 2024 11:20 AM AMBULATORY - MEDICINE [place] [facility] [place] [facility] Aug 24, 2024 11:00 AM [facility] Dec 13, 2024 01:30 PM [facility] - [facility]ICINE [facility] Jan 02, 2025 10:00 AM [facility] Active, Pending, and Scheduled Orders This section includes a listing of several types of active, pending, and scheduled orders, including clinic medications orders, diagnostic test orders, procedure orders and consult orders; where the start date of the order is 45 days before the date of the Encounter or 45 days after the date of theEncounter. The data comes from all [place] treatment [facility]. Test Date/Time Test Type Test Details Facility Name Aug 09, 2024 09:40 AM Consult Order COMMUNITY CARE-UROLOGY Cons Mineral Technologist's Choice [facility] Lab Results: +/- 30 days of the encounter This section includes the Chemistry and Hematology Lab Results on record with [place] for the patient. Radiology Reports and Pathology Reports are provided separately, in subsequent sections. Lab Results This section contains the Chemistry/Hematology Results that were resulted 30 days before or 30 daysafter the date of the Encounter. Date/Time Source Result Type Result - Unit Interpretation Reference Range Comment Aug 08, 2024 10:59 AM [facility] VITAMIN D 25-OH (Therapy monitor) Specimen Type: SERUM Comment: Vitamin D, 25-Hydroxy reports concentrations of two common forms, 25-OHD2 and 25-OHD3. 25-OHD3 indicates both endogenous production and supplementation. 25-OHD2 is an indicator of exogenous sources such as diet or supplementation. Therapy is based on measurement of Total 25-OHD, with levels <20 ng/mL indicative of Vitamin D deficiency, while levels between 20 ng/mL and 30 ng/mL suggest insufficiency. Optimal levels are > or = 30 ng/mL. For additional information, please refer to http://education .Synup.Needl/faq/QVR579 (This link is being provided for informational/ educational purposes only.) This test was developed and its analytical performance characteristics have been determined by [employer] [place] [employer] It has not been cleared or approved by the U.S. Food and Drug Administration. This assay has been validated pursuant to the CLIA regulations and is used for clinical purposes. This test was developed and its analytical performance characteristics have been determined by [employer] It has not been cleared or approved by the U.S. Food and Drug Administration. This assay has been validated pursuant to the CLIA regulations and is used for clinical purposes. Test Performed by [facility], [facility] [place], [address] [place], [place] Dvo Bahena M.D., Ph.D., Director of Laboratories , CLIA [id number] TEST PERFORMED AT: , Ordering Provider: HORTENCIA VERDUZCO Report Released Date/Time: Aug 08, 2024 10:54 AM Reporting Lab: [place] [facility] [place] [facility] [address] [facility] [address] Performing Lab: [facility] [place] [facility] [address] [address] VITAMIN D, 25-OH, TOTAL 51 ng/mL 30-100 VITAMIN D, 25-OH, D3 51 ng/mL VITAMIN D, 25-OH, D2 <4 ng/mL Aug 08, 2024 10:59 AM [facility] FOLATE ([place]) Specimen Type: SERUM No comment entered. Ordering Provider: HORTENCIA VERDUZCO Report Released Date/Time: Aug 08, 2024 10:54 AM Reporting Lab: [facility] [place] [facility] [address] [facility] [address] Performing Lab: [facility] [address] [facility] [address] FOLATE (WROX) 4.07 ng/mL L >5.2 Aug 08, 2024 10:59 AM [facility] MICROALBUMIN CREATININE RATIO PANEL Specimen Type: URINE No comment entered. Ordering Provider: HORTENCIA VERDUZCO Report Released Date/Time: Aug 08, 2024 10:54 AM Reporting Lab: [facility]N [facility] [address] [facility] [address] Performing Lab: [facility] [address] [facility] [address] MICROALBUMIN/ CREATININE RATIO 354.2 mg/g H 0-29.9 MICROALBUMIN, QUANTITATIVE 103.3 mg/dL RR UNAVAIL CREATININE URINE 291.68 mg/dL Aug 08, 2024 10:59 AM [facility] VITAMIN B12 Specimen Type: SERUM No comment entered. Ordering Provider: HORTENCIA VERDUZCO Report Released Date/Time: Aug 08, 2024 10:54 AM Reporting Lab: [facility] [address] [facility] [address] Performing Lab: [facility] ALABAMATRN [facility] [address] [facility] [address] VITAMIN B12 1849 pg/mL H 200-900 Aug 08, 2024 10:59 AM [facility] LIPID PANEL FASTING Specimen Type: SERUM No comment entered. Ordering Provider: HORTENCIA VERDUZCO Report Released Date/Time: Aug 08, 2024 10:54 AM Reporting Lab: [facility] [address] [facility] [address] Performing Lab: [facility] [address] [facility] [address] CHOLESTEROL 178 mg/dL TRIGLYCERIDE 97 mg/dL 0-150 LDL calculated 97 mg/dL 0-129 CHOL/HDL 2.9 HDL CHOLESTEROL 62 mg/dL H 40-60 Aug 08, 2024 10:59 AM [facility] BASIC METABOLIC PANEL (fasting) Specimen Type: SERUM No comment entered. Ordering Provider: HORTENCIA VERDUZCO Report Released Date/Time: Aug 08, 2024 10:54 AM Reporting Lab: [facility] [address] [facility] [address] Performing Lab: [facility] [address] [facility] [address] UREA NITROGEN 22 mg/dL 7-25 GLUCOSE 91 mg/dL 65-100 SODIUM 138 mmol/L 135-145 POTASSIUM 4.8 mmol/L 3.5-5.0 CHLORIDE 105 mmol/L 100-110 CO2 25 meq/L 20-30 CREATININE, Serum 0.99 mg/dL 0.50-1.40 eGFR(CKD-EPI 2020) 77 mL/min >60 Aug 08, 2024 10:59 AM [facility] HEMOGLOBIN A1C PANEL Specimen Type: BLOOD Comment: Values obtained from A1C measurements can vary. For atypical A1C assays, a reported value of 7.0 could actually be between 6.72 and 7.28 if measured by a reference method. A reported value of 9.0 could actually be between 8.73 and 9.27. Ref: http://www.ngsp. org/CAPdata.asp Ordering Provider: HORTENCIA VERDUZCO Report Released Date/Time: Aug 08, 2024 10:54 AM Reporting Lab: [facility] [address] [facility] [address] Performing Lab: [place] [facility] [place] [facility] [address] [facility] [address] HEMOGLOBIN A1C 5.2 4.0-5.6 Aug 08, 2024 10:59 AM [place] [facility] [place] [facility] LIVER FUNCTION Specimen Type: SERUM No comment entered. Ordering Provider: HORTENCIA VERDUZCO Report Released Date/Time: Aug 08, 2024 10:54 AM Reporting Lab: [place] [facility] [place] [facility] [address] [facility] [address] Performing Lab: [facility] AL[facility]AMATRN [facility] [address] [facility] [address] PROTEIN,TOTAL 6.7 g/dL 6.0-8.3 ALBUMIN 3.4 g/dL L 3.5-5.0 ALKALINE PHOSPHATASE 151 U/L H 40-150 AST 17 U/L 5-34 ALT 8 U/L BILIRUBIN, TOTAL 0.5 mg/dL 0.2-1.2 Aug 08, 2024 10:59 AM [facility] PSA Specimen Type: SERUM No comment entered. Ordering Provider: HORTENCIA VERDUZCO GRACIELA Report Released Date/Time: Aug 08, 2024 10:54 AM Reporting Lab: [place] [facility] [place] [facility] [address] [facility] [address] Performing Lab: [facility] TRN [facility] [address] [address] PSA 30.59 ng/mL H 0.00-4.00 Aug 08, 2024 10:59 AM [facility] TSH Specimen Type: SERUM No comment entered. Ordering Provider: HORTENCIA VERDUZCO GRACIELA Report Released Date/Time: Aug 08, 2024 10:54 AM Reporting Lab: [place] [facility] [place] [facility] [address] [facility] [address] Performing Lab: [place] [facility] [address] [facility] [address] TSH 1.93 u[IU]/mL 0.35-5.00 Aug 08, 2024 10:59 AM [facility] CBC AND DIFF (AUTO) Specimen Type: BLOOD No comment entered. Ordering Provider: HORTENCIA VERDUZCO Report Released Date/Time: Aug 08, 2024 10:54 AM Reporting Lab: [facility] [address] [facility] [address] Performing Lab: [facility] [address] [facility] [address] WBC 7.81 10*3/uL 4.50-11.00 RBC 4.88 10*6/uL 4.23-5.66 HGB 13.1 g/dL 12.8-17 HCT 40.8 39.2-50.4 MCV 83.6 fL 82-99 MCHC 32.1 g/dL 30.8-35.1 PLT 370 10*3/uL H 140-360 RDW-CV 12.1 12.0-16.0 MONO, ABS 0.41 10*3/uL 0.30-1.10 MCH 26.8 pg 26.2-32.6 NEUT % 70.9 43.7-75.8 LYMPH % 18.8 14.0-42.3 MONO % 5.2 5.1-13.7 EOS % 2.6 0.4-6.8 BASO % 0.6 0.1-2.0 NEUT, ABS 5.53 10*3/uL 2.20-7.60 LYMPH, ABS 1.47 10*3/uL 1.00-3.20 EOS, ABS 0.20 10*3/uL 0.03-0.44 BASO, ABS 0.05 10*3/uL 0.01-0.13 IMMATURE GRAN % 1.9 H 0.0-0.7 IMMATURE GRAN, ABS 0.15 10*3/uL H 0.00-0.06 NRBC % 0.0 0.0-0.0 NRBC, ABS 0.00 10*3/uL 0.00-0.00 Advance Directives: All historical and current Section Date Range: From patient's date of to the date document was created. This section includes ALL of a patient's completed or amended [place] Advance and Rescinded Directives. The entries below indicate that a directive exists for the patient, but an actual copy is not included with this document. The data comes from all [place] facilities. Date Advance Directives Provider Source Apr 04, 2024 ADVANCE DIRECTIVE CHAPINCITO DEE [facility] Radiology Reports: +/- 30 days [...] the Encounter. The data comes from all [place] treatment facilities. Date/Time Radiology Report Provider Source Aug 16, 2024 02:[address] ABDOMEN AND PELVIS WITH CONTRAST: JAKE DUGAN [id number] Biju Date: AUG 16, 2024@14:04 Req Phys: LUBA,NOLAN Pat Loc: [facility]/SO/PACT 9 (Req'g Loc) Img Loc: 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 A contrast-enhanced series was obtained in the portal venous phase. 350 images were received by the [place] National Teleradiology Program (NTP) for interpretation. RADIATION DOSE (mGy*cm): 469.5 IV CONTRAST: Omnipaque 300, Volume (mL): 99 Oral contrast administered. FINDINGS: Liver: No significant abnormal enhancement. Liver surface is smooth. No masses. Gallbladder: Unremarkable. Bile ducts: Normal caliber. Pancreas: No mass, duct dilatation, fluid collection, or inflammatory change. Bowel and mesentery: No evidence of a bowel obstruction. No bowel dilatation. No bowel wall thickening, mass, or inflammatory change. Mesentery is unremarkable. Peritoneum: Unremarkable. Lymph nodes: There is new adenopathy in the retroperitoneum with the largest lymph nodes measuring 1 cm in the interaortocaval region image 55 series 4 and 1 cm in the retrocaval region image 48 series 4. There is also new right common iliac adenopathy which is 1.1 cm on image 63 and left external iliac adenopathy which is 1.7 cm on image 77 of series 4. Spleen: Normal size. Adrenal glands: Normal. No nodules. Kidneys and ureters: No solid mass. No evidence of hydronephrosis. No renal calculi. No ureteral abnormality or calculi. Incidental stable benign renal cysts are present. Retroperitoneum: Otherwise unremarkable. Vasculature: No aortic aneurysm. Portal venous system is patent. Abdominal wall: No hernia or mass. Bladder: Decompressed by a Mccurdy catheter. Reproductive organs: There is a new tubular hypodensity that appears to be expanding the urethra adjacent to the Mccurdy catheter extending from the prostatic portion of the urethra through the bulbous portion on images 90-1 or 2 series 4. Musculoskeletal: No acute abnormality. No significant blastic or lytic lesions. Lower chest: There are widespread small nodules in the visualized portion of all lobes in the lung bases. One of the largest left lower lobe nodules is 6 mm on image 3 and one of largest right lower lobe nodules a 6 mm on image 4. No pleural abnormality. Impression: 1. Findings suspicious for widespread pulmonary metastases. The portions of the lungs containing the nodules on the current scan were not included on the prior CT IVP. 2. New adenopathy in the abdomen and pelvis is compatible with metastatic disease. 3. New dilatation of the urethra which could be postprocedural, represent thrombus, or represent tumor infiltration. READING PHYSICIAN: Kwabena Perez M.D. -[id number] 08/16/2024 20:18 [facility] National Teleradiology Program [phone] (For Medical Practitioner Use Only) Attention Patients / Veterans: If you have questions or concerns about these test results, please contact your ordering provider or primary care team. Primary Diagnostic Code: POSSIBLE MALIGNANCY Primary Interpreting Staff: RADIOLOGY,OUTSIDE SERVICE, Staff Physician / RADIOLOGY,OUTSIDE SERVICE [place] [facility] [place] [facility] Encounter Notes: All associated encounter notes This section contains the clinical notes associated to the Encounter. Date/Time Encounter Note(s) Provider Source Jul 18, 2024 04:55 PM NONVA NOTE: LOCAL TITLE: [facility] SELF PRESENTING CARE COORD PLAN STANDARD TITLE: NONVA NOTE DATE OF NOTE: JUL 18, 2024@16:55 ENTRY DATE: JUL 18, 2024@16:56:09 AUTHOR: IKE BRODY COSIGNER: URGENCY: STATUS: COMPLETED Emergency Notification Intake Date Presenting to the Facility: May Method of Contact: Notified from ECR worklist Notification ID: [id number] [facility] Referral #: [id number] [facility] Name: Hospital: [facility] Address: City: [place] State: [place] Zip Code: Phone : [facility] Facility Point of Contact: Name: Alfonzo Phone: Chief complaint: Diff Urinating Primary Diagnosis: Disposition Discharged Date of discharge: May Discharge to Comment: ER Only /mariana/ IKE MCINTYRE Signed: 07/18/2024 16:57 Receipt Acknowledged By: * AWAITING SIGNATURE * BLANCA ARELLANO * AWAITING SIGNATURE * RORO OSBORN * AWAITING SIGNATURE * SARAH YANEZ * AWAITING SIGNATURE * TIMA JEFFERSON DAWN MARIE PIMA
--- OUTSIDE RECORDS SUMMARY | 2024-08-30 18:39 | XMS_ITS ---
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 Address [address] [place] [id number] Care Team Providers Care Commercial Artist Lettering Name Role Phone NOLAN VERDUZCO Primary Care [...] Segal's Name Patient's Relationship to Policy Segal [facility] ([facility]) MEDICARE ADVANTAGE [place] INDIV IDUAL - [place] Sep 21, 2023 [id number] [phone] MARVIN DUGANI S [facility] MEDICARE ADVANTAGE [facility] ([facility]) Sep 21, 2023 [id number] [phone] DUGANMARVINI S PATIENT [place]USKY MEDICAID HUSKY PLAN May 22, 2022 MEDICAI D [id number] MARVIN DUGANI S PATIENT MEDICARE ([facility]) MEDICARE () PART B May 22, 2022 PART B [id number] DUGANMARVINI S PATIENT MEDICARE ([facility]) MEDICARE ([place]) PART A Feb 19, 2009 PART A [id number] [id number] DUGAN,GENET S PATIENT MEDICARE PART D (WNR) MEDICARE (M) PART D Jul 22, 2022 PART D [id number] [phone] GENET DUGAN PATIENT [facility] (WNR) MEDICARE ADVANTAGE [facility] (WNR) Sep 21, 2022 [id number] GENET DUGAN PATIENT [facility] (WNR) MEDICARE ADVANTAGE MCR (WNR) Sep 21, 2022 [id number] GENET DUGAN PATIENT Selected Encounter This section includes the information on record at [place] for the Encounter. Date/Time Encounter Type Encounter Description Reason Pro vider Source Jun 01, 2024 12:00 AM Outpatient Encounter COMMUNITY CARE CONSULT IHE Encounter Template Text not used by [place] Plan of Treatment: Future Appointments (+ 6 months) and Future Tests (+/- 45 days) The Plan of Treatment section includes future care activities for the patient from all [place] treatmentfacilities. This section includes future appointments and future orders which are active, pending or scheduled. Future Appointments This section includes appointments that were scheduled to occur 6 months from the date of the Encounter, up to a maximum of 20 appointments. The data comes from all [place] treatment facilities. Appointment Date/Time Appointment Type Appointme nt Facility Name Jun 03, 2024 12:45 PM AMBULATORY [place]ICINE [place] [facility] [place] [facility] Jun 21, 2024 09:00 AM AM[place]ULATORY [place]ICINE [place] [facility] [place] [facility] Aug 09, 2024 09:00 AM AMBULATORY - [place]ICINE [place] [facility] [place] [facility] Aug 16, 2024 12:00 PM AMBULATORY - NONE [place] [facility] [place] [facility] Aug 22, 2024 11:20 AM AMBULATORY - [place]ICINE [place] [facility] [place] [facility] Aug 24, 2024 11:00 AM AMBULATORY - MEDICINE [facility] Advance Directives: All historical and current Section Date Range: From patient's date of to the date document was created. This section includes ALL of a patient's completed or amended [place] Advance and Rescinded Directives. The entries below indicate that a directive exists for the patient, but an actual copy is not included with this document. The data comes from all [place] facilities. Date Advance Directives Provider Source Apr 04, 2024 ADVANCE DIRECTIVE LEILA,CHAPINCITO M [facility] Encounter Notes: All associated encounter notes This section contains the clinical notes associated to the Encounter. Date/Time Encounter Note(s) Provider Source Jun 01, 2024 12:00 AM NONVA CONSULT: LOCAL TITLE: COMMUNITY CARE-CONSULT RESULT NOTE STANDARD TITLE: NONVA CONSULT DATE OF NOTE: JUN 01, 2024 ENTRY DATE: JUN 27, 2024@16:30:36 AUTHOR: MG PINEDA EXP COSIGNER: URGENCY: STATUS: COMPLETED VistA Imaging - Scanned Document SCANNED DOCUMENT SIGNATURE NOT REQUIRED Electronically Filed: 06/27/2024 by: MG AYON [facility]
--- OUTSIDE RECORDS SUMMARY | 2024-08-30 18:39 | XMS_ITS | Encounter Summary ---
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 Organization [place] Address [address] [place] [id number] Care Team Providers Care Hydraulic Spinner Name Role Phone NOLAN VERDUZCO Primary Care [...] Segal's Name Patient's Relationship to Policy Segal [facility] ([facility]) MEDICARE ADVANTAGE [place] INDIV IDUAL - [place] Sep 21, 2023 [id number] [phone] MARVIN DUGANI S PATIENT [facility] ([facility]) MEDICARE ADVANTAGE [facility] ([facility]) Sep 21, 2023 [id number] [phone] DUGANMARVINI S PATIENT [place] MEDICAID [place] PLAN May 22, 2022 MEDICAI D [id number] MARVIN DUGANI S PATIENT MEDICARE ([facility]) MEDICARE () PART B May 22, 2022 PART B [id number] DUGANMARVINI S PATIENT MEDICARE ([facility]) MEDICARE (M) PART A Feb 19, 2009 PART A [id number] DUGAN,GENET S PATIENT MEDICARE PART D ([place]NR) MEDICARE (M) PART D Jul 22, 2022 PART D [id number] GENET DUGAN S PATIENT [facility] (WNR) MEDICARE ADVANTAGE MCR (WNR) Sep 21, 2022 [id number] GENET DUGAN S PATIENT [facility] (WNR) MEDICARE ADVANTAGE MCR (WNR) Sep 21, 2022 [id number] [phone] GENET DUGAN PATIENT Selected Encounter This section includes the information on record at [place] for the Encounter. Date/Time Encounter Type Encounter Description Reason Pro vider Source Jun 03, 2024 12:00 AM Outpatient Encounter COMMUNITY CARE [...] 21, 2024 09:00 AM AMBULATORY - [place]ICINE [place] [facility] [place] [facility] Aug 09, 2024 09:00 AM AMBULATORY - MEDICINE [place] [facility] [place] [facility] Aug 16, 2024 12:00 PM AMBULATORY - NONE [place] [facility] [place] [facility] Aug 22, 2024 11:20 AM AMBULATORY - MEDICINE [place] [facility] [place] [facility] Aug 24, 2024 11:00 AM AMBULATORY [...] this document. The data comes from all [facility]. Date Advance Directives Provider Source Apr 04, 2024 ADVANCE DIRECTIVE CHAPINCITO DEE [facility] Encounter Notes: All associated encounter notes This section contains the clinical notes associated to the Encounter. Date/Time Encounter Note(s) Provider Source Jun 03, 2024 12:00 AM NONVA CONSULT: LOCAL TITLE: COMMUNITY CARE-CONSULT RESULT NOTE STANDARD TITLE: NONVA CONSULT DATE OF NOTE: JUN 03, 2024 ENTRY DATE: JUL 28, 2024@11:25:33 AUTHOR: BRANDIE WEINER COSIGNER: URGENCY: STATUS: COMPLETED VistA Imaging - Scanned Document SCANNED DOCUMENT SIGNATURE NOT REQUIRED Electronically Filed: 07/28/2024 by: BRANDIE WEINER MAST MAKER BRANDIE WEINER [place] [facility]
--- OUTSIDE RECORDS SUMMARY | 2024-08-30 18:39 | XMS_ITS ---
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 Address [address] [place] [address] Care Team Providers Care Shot Tube Machine Tender Name Role Phone NOLAN VERDUZCO Primary [...] Segal's Name Patient's Relationship to Policy Segal [facility] ([facility]) MEDICARE ADVANTAGE [place] INDIV IDUAL - [place] Sep 21, 2023 [id number] [phone] MARVIN [facility]UGANI S [facility] ([place]) Sep 21, 2023 [id number] [phone] DUGAN,GENET S PATIENT [place] MED[place]ID [place] May 22, 2022 MEDICAI D [id number] DUGAN,GENET S PATIENT MEDICARE ([place]) MEDICARE ([place]) PART B May 22, 2022 PART B [id number] DUGAN,GENET S PATIENT MEDICARE ([place]) MEDICARE (M) PART A Feb 19, 2009 PART A [id number] DUGAN,GENET S PATIENT MEDICARE PART D ([place]NR) MEDICARE (M) PART D Jul 22, 2022 PART D [id number] GENET DUGAN S PATIENT [facility] (WNR) MEDICARE ADVANTAGE [facility] ([place]) Sep 21, 2022 [id number] [phone] GENET DUGAN S PATIENT [facility] ([place]) MEDICARE ADVANTAGE MCR ([place]NR) Sep 21, 2022 [id number] GENET DUGAN S PATIENT Selected Encounter This section includes the information on record at [place] for the Encounter. Date/Time Encounter Type Encounter Description Reason Pro vider Source Jun 30, 2024 09:27 AM Outpatient Encounter ADMIN PAT ACTIVTIES ([facility]) IHE Encounter Template Text not used by [place] Plan of Treatment: Future Appointments (+ 6 months) and Future Tests (+/- 45 days) The Plan of Treatment section includes future care activities for the patient from all [place] [facility]. This section includes future appointments and future orders which are active, pending or scheduled. Future Appointments This section includes appointments that were scheduled to occur 6 months from the date of the Encounter, up to a maximum of 20 appointments. The data comes from all [facility]. Appointment Date/Time Appointment Type Appointme nt Facility Name Aug 09, 2024 09:00 AM AMBULATORY - MEDICINE [facility] Aug 16, 2024 12:00 PM AMBULATORY - NONE [facility] Aug 22, 2024 11:20 AM AMBULATORY - MEDICINE [facility] Aug 24, 2024 11:00 AM AMBULATORY - MEDICINE [facility] Dec 13, 2024 01:30 PM AMBULATORY - MEDICINE [facility] Active, Pending, and Scheduled Orders This section includes a listing of several types of active, pending, and scheduled orders, including clinic medications orders, diagnostic test orders, procedure orders and consult orders; where the start date of the order is 45 days before the date of the Encounter or 45 days after the date of theEncounter. The data comes from all [facility]. Test Date/Time Test Type Test Details Facility Name Aug 09, 2024 09:40 AM Consult Order COMMUNITY CARE-UROLOGY Cons Data [facility] Advance Directives: All historical and current [...] Source Apr 04, 2024 [facility] Encounter Notes: All associated encounter notes This section contains the clinical notes associated to the Encounter. Date/Time Encounter Note(s) Provider Source Jun 30, 2024 09:27 AM ADMINISTRATIVE NOTE: LOCAL TITLE: CCC: SCHEDULING ADMINISTRATION STANDARD TITLE: ADMINISTRATIVE NOTE DATE OF NOTE: JUN 30, 2024@09:27:23 ENTRY DATE: JUN 30, 2024@09:27:24 AUTHOR: MELISSA LOPEZ COSIGNER: URGENCY: STATUS: COMPLETED CCC: SCHEDULING ADMINISTRATION Has ADDENDA Patient Demographics Patient Name: JAKE DUGAN Patient Primary Phone: [phone] Patient Primary Address: [address] [place] [address] Patient : 1945 Patient Age: 79 Caller/Recipient Relation to Patient: Other If Other Describe Relation to Patient: [facility] Caller Name: Ivanna Administrative Administrative Note Comments: Ivanna calling from [facility] to confirm had medical clearance appointment for upcoming surgery scheduled next Thursday. She can be reached at [phone]. IMPORTANT: This note was created by [facility] staff. Please do not alert the staff member by adding them as a signer for future communications. Alerts are not monitored by this user. /es/ Melissa OG 1 CATRACHITO AMSA Signed: 06/30/2024 09:27 Receipt Acknowledged By: 06/30/2024 15:32 /es/ ISABEL FREDERICK LPN LPN 06/30/2024 15:34 /es/ WAGNER MOORE,RN-BC REGISTERED NURSE (RN) 06/30/2024 ADDENDUM STATUS: COMPLETED Ivanna called by this editorial writer and advised veterns appt for medical clearance was completed Jun 21, 2024 notes will be fax over. Ivanna thanked editorial writer for calling her back. /mariana/ ISABEL FREDERICK LPN LPN Signed: 06/30/2024 15:35 MELISSA LOPEZ [facility]
--- OUTSIDE RECORDS SUMMARY | 2024-08-30 18:39 | XMS_ITS | Encounter Summary ---
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 Address [address] [place] [id number] Care Team Providers Care Test Department Helper Name Role Phone NOLAN VERDUZCO Primary Care [...] Patient's Relationship to Policy Segal [facility] ([facility]) MEDICARE ADVANTAGE [place] Sep 21, 2023 [id number] [phone] MARVIN DUGANI S PATIENT [facility] ([facility]) MEDICARE ADVANTAGE [facility] ([facility]) Sep 21, 2023 [id number] [phone] DUGANMARVINI S PATIENT [place] MED[place]ID [place]AN May 22, 2022 MEDICAI D [id number] MARVIN DUGANI S PATIENT MEDICARE ([facility]) MEDICARE () PART B May 22, 2022 PART B [id number] DUGANMARVINI S PATIENT MEDICARE ([facility]) MEDICARE ([place]) PART A Feb 19, 2009 PART A [id number] DUGAN,GENET S PATIENT MEDICARE PART D (WNR) MEDICARE ([place]) PART D Jul 22, 2022 PART D [id number] [phone] GENET DUGAN S PATIENT [facility] (WNR) MEDICARE ADVANTAGE MCR (WNR) Sep 21, 2022 [id number] GENET DUGAN S PATIENT [facility] ([place]) MEDICARE ADVANTAGE MCR (WNR) Sep 21, 2022 [id number] [phone] GENET DUGAN PATIENT Selected Encounter This section includes the information on record at [place] for the Encounter. Date/Time Encounter Type Encounter Description Reason Pro vider Source Jun 07, 2024 12:00 AM Outpatient Encounter COMMUNITY CARE CONSULT IHE Encounter Template Text not used by [place] Plan of Treatment: Future Appointments (+ 6 months) and Future Tests (+/- 45 days) The Plan of Treatment section includes future care activities for the patient from all [place] treatmentfacilities. This section includes future appointments and future orders which are active, pending or scheduled. Future Appointments This section includes appointments that were scheduled to occur 6 months from the date of the Encounter, up to a maximum of 20 appointments. The data comes from all [place] treatment facilities. Appointment Date/Time Appointment Type Appointme nt Facility Name Jun 21, 2024 09:00 AM AM[place]ULATORY [place] [facility] [facility] Aug 09, 2024 09:00 AM AMBULATORY - [place]ICINE [place] [facility] [facility] Aug 16, 2024 12:00 PM AMBULATORY - NONE [place] [facility] [facility] Aug 22, 2024 11:20 AM AM[place]ULATORY [place]ICINE [place] [facility] Aug 24, 2024 11:00 AM AMBULATORY - MEDICINE [facility] Advance Directives: All historical and current Section Date Range: From patient's date of to the date document was created. This section includes ALL of a patient's completed or amended [place] Advance and Rescinded Directives. The entries below indicate that a directive exists for the patient, but an actual copy is not included with this document. The data comes from all [facility]. Date Advance Directives Provider Source Apr 04, 2024 ADVANCE DIRECTIVE CHAPINCITO DEE [facility] Encounter Notes: All associated encounter notes This section contains the clinical notes associated to the Encounter. Date/Time Encounter Note(s) Provider Source Jun 07, 2024 12:00 AM NONVA CONSULT: LOCAL TITLE: COMMUNITY CARE-CONSULT RESULT NOTE STANDARD TITLE: NONVA CONSULT DATE OF NOTE: JUN 07, 2024 ENTRY DATE: JUL 28, 2024@11:23:24 AUTHOR: BRANDIE WEINER EXP COSIGNER: URGENCY: STATUS: COMPLETED VistA Imaging - Scanned Document SCANNED DOCUMENT SIGNATURE NOT REQUIRED Electronically Filed: 07/28/2024 by: BRANDIE WEINER FISHING ROD TRIMMER BRANDIE WEINER [place] [facility]
--- OUTSIDE RECORDS SUMMARY | 2024-08-30 18:40 | XMS_ITS | Encounter Summary ---
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 Address [address] [place] [id number] Care Team Providers Care Starch Mangle Tender Name Role Phone NOLAN VERDUZCO Primary [...] Segal's Name Patient's Relationship to Policy Segal [facility] ([facility]) MEDICARE ADVANTAGE [place] IN[place] IDUAL - [place] Sep 21, 2023 [id number] [phone] GENET [facility]UGAN [facility] MEDICARE [facility] ([facility]) Sep 21, 2023 [id number] [phone] GENET DUGAN S PATIENT [place]KY MEDICAID H[place]KY PLAN May 22, 2022 MEDICAI D [id number] GENET DUGAN S PATIENT MEDICARE ([facility] MEDICARE () PART B May 22, 2022 PART B [id number] GENET DUGAN S PATIENT MEDICARE ([facility]) MEDICARE () PART A Feb 19, 2009 PART A [id number] GENET DUGAN S PATIENT MEDICARE PART D (WNR) MEDICARE (M) PART D Jul 22, 2022 PART D [id number] GENET DUGAN S PATIENT [facility] (WNR) MEDICARE ADVANTAGE [facility] (WNR) Sep 21, 2022 [id number] GENET DUGAN S PATIENT [facility] (WNR) MEDICARE ADVANTAGE [facility] (WNR) Sep 21, 2022 [id number] [phone] GENET DUGAN PATIENT Selected Encounter This section includes the information on record at [place] for the Encounter. Date/Time Encounter Type Encounter Description Reason Provider Source Aug 09, 2024 09:00 AM OFFICE O/P EST MOD 30 MIN PRIMARY CARE/MEDICINE ICD-10-CM N50.9 Disorder of male genital organs, unspecified LUBA,APOLI YASMINIO IHLeola Encounter Template Text not used by [place] Assessments - Encounter Diagnoses This section includes the primary and secondary diagnoses documented for the Encounter. Date/Time Primary/Secondary Diagnosis Diagnosis Name Provider Source Aug 09, 2024 09:52 AM PRIMARY Disorder of male genital organs, unspecified LUBA,MONICA DAUGHERTY CEASAR Aug 09, 2024 09:52 AM SECONDARY Carcinoma in situ of prostate LUBA,[facility] Plan of Treatment: Future Appointments (+ [...] Appointment Type Appointme nt Facility Name Aug 16, 2024 12:00 PM AMBULATORY - NONE [place] [facility] [place] [facility] Aug 22, 2024 11:20 AM AM[place]ULATORY [place]IC[place] [facility] [place] [facility] Aug 24, 2024 11:00 AM AMBULATORY - MEDICINE [facility] Dec 13, 2024 01:30 PM AMBULATORY - MEDICINE [facility] Jan 02, 2025 10:00 AM AMBULATORY - [place]IC[place] [facility] [place] [facility] Active, Pending, and Scheduled Orders [...] 09:40 AM Consult Order COMMUNITY CARE-UROLOGY Cons Plumber Supervisor's Choice [facility] Lab Results: +/- 30 days of [...] - Unit Interpretation Reference Range Comment Aug 24, 2024 11:28 AM [place] CBC AND DIFF (AUTO) Specimen Type: BLOOD No comment entered. Ordering Provider: ROWENA ROY Report Released Date/Time: Aug 24, 2024 11:07 AM Reporting Lab: [facility] [address] [facility] [address] Performing Lab: [facility] [address] [facility] [address] WBC 8.84 10*3/uL 4.50-11.00 RBC 4.72 10*6/uL 4.23-5.66 HGB 12.8 g/dL 12.8-17 HCT 38.8 L 39.2-50.4 MCV 82.2 fL 82-99 MCHC 33.0 g/dL 30.8-35.1 PLT 312 10*3/uL 140-360 RDW-CV 12.3 12.0-16.0 MONO, ABS 0.39 10*3/uL 0.30-1.10 MCH 27.1 pg 26.2-32.6 NEUT % 80.9 H 43.7-75.8 LYMPH % 12.2 L 14.0-42.3 MONO % 4.4 L 5.1-13.7 EOS % 1.6 0.4-6.8 BASO % 0.7 0.1-2.0 NEUT, ABS 7.15 10*3/uL 2.20-7.60 LYMPH, ABS 1.08 10*3/uL 1.00-3.20 EOS, ABS 0.14 10*3/uL 0.03-0.44 BASO, ABS 0.06 10*3/uL 0.01-0.13 IMMATURE GRAN % 0.2 0.0-0.7 IMMATURE GRAN, ABS 0.02 10*3/uL 0.00-0.06 NRBC % 0.0 0.0-0.0 NRBC, ABS 0.00 10*3/uL 0.00-0.00 Aug 24, 2024 11:28 AM [facility] MICROSCOPIC AUTOMATED, URINE Specimen Type: URINE Comment: If Glucose = >500 and Ketones are positive, please alert the Physician. Ordering Provider: MONICA VERDUZCO Report Released Date/Time: Aug 09, 2024 09:43 AM Reporting Lab: [address] [address] Performing Lab: [facility] [address] [facility] [address] UA WBC 0-5 /[HPF] 0-5 UA BACTERIA 1+ /[HPF] NoneObs UA TRIPLE PHOSPHATE CRYSTALS MODERATE /[HPF] Not Established UA RBC 6-10 /[HPF] H 0-3 Aug 24, 2024 11:28 AM [facility] URINALYSIS Specimen Type: URINE Comment: If Glucose = >500 and Ketones are positive, please alert the Physician. Ordering Provider: MONICA VERDUZCO Report Released Date/Time: Aug 09, 2024 09:43 AM Reporting Lab: [facility] [address] [facility] [address] Performing Lab: [address] [address] UA COLOR Light-Brown Yellow UA APPEARANCE Turbid Clear UA GLUCOSE Normal mg/dL Negative UA KETONES NEGATIVE mg/dL Negative UA BLOOD LARGE mg/dL Negative UA PROTEIN 100 mg/dL Negative UA NITRITE NEGATIVE mg/dL Negative UA BILIRUBIN NEGATIVE mg/dL Negative UA SPECIFIC GRAVITY 1.007 L 1.016-1.022 UA pH 8.5 5.0-9.0 UA UROBILINOGEN Normal mg/dL <2.0 UA LEUKOCYTE LARGE Negative Aug 08, 2024 10:59 AM [facility] VITAMIN D 25-OH (Therapy monitor) Specimen Type: SERUM Comment: Vitamin D, 25-Hydroxy reports concentrations of two common forms, 25-OHD2 and 25-OHD3. 25-OHD3 indicates both endogenous production and supplementation . 25-OHD2 is an indicator of exogenous sources such as diet or supplementation . Therapy is based on measurement of Total 25-OHD, with levels <20 ng/mL indicative of Vitamin D deficiency, while levels between 20 ng/mL and 30 ng/mL suggest insufficiency. Optimal levels are > or = 30 ng/mL. For additional information, please refer to http://educatio n.Night Zookeeper.Wabeebwa/faq/FAQ 199 (This link is being provided for informational/ educational purposes only.) This test was developed and its analytical performance characteristics have been determined by [employer] [place], [place]. It has not been cleared or approved by the U.S. Food and Drug Administration. This assay has been validated pursuant to the CLIA regulations and is used for clinical purposes. This test was developed and its analytical performance characteristics have been determined by [employer] [place]. It has not been cleared or approved by the U.S. Food and Drug Administration. This assay has been validated pursuant to the CLIA regulations and is used for clinical purposes. Test Performed by [facility] [employer] [facility], [address] [place] [address] Dov Bahena M.D., Ph.D., Director of Laboratories , CLIA [id number] TEST PERFORMED AT: , Ordering Provider: MONICA VERDUZCO Report Released Date/Time: Aug 08, 2024 10:54 AM Reporting Lab: [facility] [address] [facility] [address] Performing Lab: [facility] [address] [address] VITAMIN D, 25-OH, TOTAL 51 ng/mL 30-100 VITAMIN D, 25-OH, D3 51 ng/mL VITAMIN D, 25-OH, D2 <4 ng/mL Aug 08, 2024 10:59 AM [facility] FOLATE (WROX) Specimen Type: SERUM No comment entered. Ordering Provider: MONICA VERDUZCO Report Released Date/Time: Aug 08, 2024 10:54 AM Reporting Lab: [facility] [address] [facility] [address] Performing Lab: [facility] [address] [facility] [address] FOLATE (WROX) 4.07 ng/mL L >5.2 Aug 08, 2024 10:59 AM [facility] VITAMIN B12 Specimen Type: SERUM No comment entered. Ordering Provider: MONICA VERDUZCO Report Released Date/Time: Aug 08, 2024 10:54 AM Reporting Lab: [facility] [address] [facility] [address] Performing Lab: [facility] [address] [facility] [address] VITAMIN B12 1849 pg/mL H 200-900 Aug 08, 2024 10:59 AM [facility] MICROALBUMIN CREATININE RATIO PANEL Specimen Type: URINE No comment entered. Ordering Provider: MONICA VERDUZCO Report Released Date/Time: Aug 08, 2024 10:54 AM Reporting Lab: [facility] [address] Performing Lab: [facility] [address] [facility] [address] MICROALBUMIN/ CREATININE RATIO 354.2 mg/g H 0-29.9 MICROALBUMIN, QUANTITATIVE 103.3 mg/dL RR UNAVAIL CREATININE URINE 291.68 mg/dL Aug 08, 2024 10:59 AM [facility] BASIC METABOLIC PANEL (fasting) Specimen Type: SERUM No comment entered. Ordering Provider: MONICA VERDUZCO Report Released Date/Time: Aug 08, 2024 10:54 AM Reporting Lab: [facility] [address] [facility] [address] Performing Lab: [facility] [address] [facility] [address] UREA NITROGEN 22 mg/dL 7-25 GLUCOSE 91 mg/dL 65-100 SODIUM 138 mmol/L 135-145 POTASSIUM 4.8 mmol/L 3.5-5.0 CHLORIDE 105 mmol/L 100-110 CO2 25 meq/L 20-30 CREATININE, Serum 0.99 mg/dL 0.50-1.40 eGFR(CKD-EPI 2020) 77 mL/min >60 Aug 08, 2024 10:59 AM [facility] LIPID PANEL FASTING Specimen Type: SERUM No comment entered. Ordering Provider: MONICA VERDUZCO Report Released Date/Time: Aug 08, 2024 10:54 AM Reporting Lab: [facility] [address] [facility] [address] Performing Lab: [facility] [address] [facility] [address] CHOLESTEROL 178 mg/dL TRIGLYCERIDE 97 mg/dL 0-150 LDL calculated 97 mg/dL 0-129 CHOL/HDL 2.9 HDL CHOLESTEROL 62 mg/dL H 40-60 Aug 08, 2024 10:59 AM [facility] HEMOGLOBIN A1C PANEL Specimen Type: BLOOD Comment: Values obtained from A1C measurements can vary. For atypical A1C assays, a reported value of 7.0 could actually be between 6.72 and 7.28 if measured by a reference method. A reported value of 9.0 could actually be between 8.73 and 9.27. Ref: http://www.ngsp .org/CAPdata.as p Ordering Provider: MONICA VERDUZCO Report Released Date/Time: Aug 08, 2024 10:54 AM Reporting Lab: [facility] [address] [facility] [address] Performing Lab: [address] [address] HEMOGLOBIN A1C 5.2 4.0-5.6 Aug 08, 2024 10:59 AM [facility] LIVER FUNCTION Specimen Type: SERUM No comment entered. Ordering Provider: MONICA VERDUZCO Report Released Date/Time: Aug 08, 2024 10:54 AM Reporting Lab: [facility] [address] [facility] [address] Performing Lab: [facility] [address] [facility] [address] PROTEIN,TOTAL 6.7 g/dL 6.0-8.3 ALBUMIN 3.4 g/dL L 3.5-5.0 ALKALINE PHOSPHATASE 151 U/L H 40-150 AST 17 U/L 5-34 ALT 8 U/L BILIRUBIN, TOTAL 0.5 mg/dL 0.2-1.2 Aug 08, 2024 10:59 AM [facility] PSA Specimen Type: SERUM No comment entered. Ordering Provider: MONICA VERDUZCO Report Released Date/Time: Aug 08, 2024 10:54 AM Reporting Lab: [facility] [address] [facility] [address] Performing Lab: [facility] [address] [facility] [address] PSA 30.59 ng/mL H 0.00-4.00 Aug 08, 2024 10:59 AM [facility] TSH Specimen Type: SERUM No comment entered. Ordering Provider: MONICA VERDUZCO Report Released Date/Time: Aug 08, 2024 10:54 AM Reporting Lab: [facility]CR[facility]TR[facility] [address] [facility] [address] Performing Lab: [facility]IACRS[facility]ERN [facility]USE[facility] [address] [facility] [address] TSH 1.93 u[IU]/mL 0.35-5.00 Aug 08, 2024 10:59 AM [facility] CBC AND DIFF (AUTO) Specimen Type: BLOOD No comment entered. Ordering Provider: MONICA VERDUZCO Report Released Date/Time: Aug 08, 2024 10:54 AM Reporting Lab: [facility] [address] [address] Performing Lab: [facility]CR[facility]ENTERTRN [place] [facility] [address] [facility] [address] WBC 7.81 10*3/uL 4.50-11.00 RBC 4.88 10*6/uL [...] 0.0 0.0-0.0 NRBC, ABS 0.00 10*3/uL 0.00-0.00 Social History: Smoking Status (Most current) and [...] Facil ity May 31, 2024 10:00 AM [place] NEVER USED [place] Tobacco Use History This section includes a history of the smoking, or tobacco-related health factors, that were collected on or before the date of the Encounter. The data comes from the [place] facility where the Encounter took place. Date/Time Smoking Status/Tobacco Use Comment F acility Jun 23, 2023 09:00 AM [place]TO[place]AC[place] FORMER USER [place] Jun 23, 2023 09:00 AM VA-TOBACCO QUIT 15 YRS OR MORE [place] May 01, 2022 01:30 PM VA-TOBACCO FORMER USER [place] May 01, 2022 01:30 PM VA-TOBACCO QUIT 15 YRS OR MORE [place] Apr 15, 2021 03:00 PM VA-TOBACCO FORMER USER [place] Apr 15, 2021 03:00 PM VA-TOBACCO QUIT 15 YRS OR MORE [place] Oct 20, 2018 12:53 PM VA-TOBACCO FORMER USER [place] Oct 20, 2018 12:53 PM VA-TOBACCO QUIT 15 YRS OR MORE [place] Jul 03, 2017 10:33 AM QUIT TOBACCO USE > 7 YEARS AGO quit 25yrs ago [place] February 13, 2016 08:46 AM LIFETIME NON-TOBACCO USER [place] Advance Directives: All historical and current Section [...] Source Apr 04, 2024 ADVANCE [facility]IVE [facility] Radiology Reports: +/- 30 days [...] the Encounter. The data comes from all [place] treatment facilities. Date/Time Radiology Report Provider Source Aug 16, 2024 02:[address] ABDOMEN AND PELVIS WITH CONTRAST: JAKE DUGAN [id number] -[id number] M Qian Date: AUG 16, 2024@14:04 Req Phys: LUBA,NOLAN Pat Loc: CWM/SO/PACT 9 (Req'g Loc) Img Loc: NHM/CT Service: Unknown [place] [facility] [id number] (Case [id number] COMPLETE) CT ABDOMEN AND PELVIS WITH CONTRA(CT Detailed) CPT:00961 Contrast Media : Non-ionic Iodinated Reason for Study: prostate CA Clinical History: Report Status: Verified Date Reported: AUG 16, 2024 Date Verified: AUG 16, 2024 Underbaster E-Sig: Report: CT ABDOMEN AND PELVIS WITH CONTRAST HISTORY: prostate CA COMPARISON: 03/14/2024 TECHNIQUE: CT of the abdomen and pelvis with multiplanar reformats was performed at the local [place] facility. A contrast-enhanced series was obtained in the portal venous phase. 350 images were received by the [place] National Teleradiology Program (NTP) for interpretation. RADIATION [...] tumor infiltration. READING PHYSICIAN: Kwabena Perez M.D. -[id number] 08/16/2024 20:18 [facility] [employer] Telerad[facility] Program [phone] (For Medical Practitioner Use Only) Attention Patients / Veterans: If you have questions or concerns about these test results, please contact your ordering provider or primary care team. Primary Diagnostic Code: POSSIBLE MALIGNANCY Primary Interpreting Staff: RADIOLOGY,OUTSIDE SERVICE, Staff Physician / RADIOLOGY,OUTSIDE SERVICE [facility] Pathology Reports: +/- 30 days of the encounter Pathology Reports For cases when an order for pathology services may have been completed prior to the date of the Encounter, the report list includes the Pathology Reports that were completed up to 30 days before dateof the Encounter. For cases when an order for pathology services may have been completed after the date of the Encounter, the report list also includes the Pathology Reports that were completed up to30 days after date of the Encounter. The data comes from all [place] treatment facilities. Date/Time Pathology Report Provider Source Aug 24, 2024 11:28 AM [place] MICROBIOLOGY RE PORT: Reporting Lab: [facility] [CLIA# [id number]] [address] [place] [address] Accession [UID]: [id number] [[id number]] Received: Aug 24, 2024@11:28 Collection sample: URINE CLEAN CATCH Collection date: Aug 24, 2024 11:28 Site/Specimen: URINE Provider: NOLAN VERDUZCO Comment on specimen: POSITIVE CULTURE RESULTS MAY NOT REPRESENT CLINICAL INFECTION. CONSIDER NEED FOR ANTIBIOTICS IN THE CONTEXT OF UTI SYMPTOMS. Test(s) ordered: URINE CULTURE(MWROX).......... completed: Aug 29, 2024 08:33 * BACTERIOLOGY FINAL REPORT => Aug 29, 2024 08:32 [facility] CODE: [id number] CULTURE RESULTS: 1. KLEBSIELLA OXYTOCA/RAOULTELLA ORNITHINOLYTICA - Quantity: >100,000 CFU/ml 2. PSEUDOMONAS AERUGINOSA - Quantity: >75,000 - <100,000 CFU/ml ANTIBIOTIC SUSCEPTIBILITY TEST RESULTS: 1. KLEBSIELLA OXYTOCA/RAOULTELLA ORNITHINOLYTICA : 2. PSEUDOMONAS AERUGINOSA : : SUSC INTP SUSC INTP AMIKACIN...................... S S <16 S CEFEPIME...................... <2 S <2 S ERTAPENEM..................... <0.5 S MEROPENEM..................... <1 S <1 S PIPERACILLIN/TAZO............. <8 S <8 S CEFTOLOZANE+TAZO.............. <2 S AMPICILLIN.................... <8 R CEFAZOLIN..................... 4 I CEFTAZIDIME................... <1 S <1 S CEFTRIAXONE................... <1 S GENTAMICIN.................... <2 S TOBRAMYCIN.................... <2 S S S TRIM/SULF..................... <0.5/9.5 S IMIPENEM...................... <1 S <1 S CIPROFLOXACIN................. <0.25 S <0.25 S NITROFURANTOIN................ <32 S CEFOXITIN..................... <8 S CEFUROXIME.................... <4 S AMPICILLIN/SULBACTAM.......... <4/2 S LEVOFLOXACIN.................. <0.5 S Bacteriology Remark(s): WITH >75,000 - <100,000 CFU/ML MIXED GRAM POSITIVE DANNA No further workup =--=--=--=--=--=--=--=--=--=--=-- =--=--=--=--=--=--=--=--=--=--=-- =--=--=--=-- Performing Laboratory: Klebsiella Oxytoca/raoultella Ornithinolytica Performed By: [facility] [CLIA# [id number]] [address] [place] [address] Pseudomonas Aeruginosa Performed By: [facility] [CLIA# [id number]] [address] [place] [address] Bact Report Remark #1 Performed By: [facility] [CLIA# [id number]] [address] [place] [address] Bact Report Remark #2 Performed By: [facility] [CLIA# [id number]] [address] [place] [address] ENRIQUETA FLORES Encounter Notes: All associated encounter notes This section contains the clinical notes associated to the Encounter. Date/Time Encounter Note(s) Provider Source Aug 09, 2024 09:59 AM PREVENTIVE MEDICIN E NURSING NOTE: LOCAL TITLE: CLINICAL REMINDERS/NURSING STANDARD TITLE: PREVENTIVE MEDICINE NURSING NOTE DATE OF NOTE: AUG 09, 2024@09:59 ENTRY DATE: AUG 09, 2024@09:59:13 AUTHOR: ISABEL FREDERICK EXP COSIGNER: URGENCY: STATUS: COMPLETED COVID-19 Immunization: Defer due to a PRECAUTION Reason: def /es/ ISABEL FREDERICK LPN LPN Signed: 08/09/2024 09:59 ISABEL FREDERICK [place] Aug 09, 2024 09:40 AM PHYSICIAN NOTE: LOCAL TITLE: NOTE STANDARD TITLE: PHYSICIAN NOTE DATE OF NOTE: AUG 09, 2024@09:40 ENTRY DATE: AUG 09, 2024@09:40:46 AUTHOR: NOLAN VERDUZCO EXP COSIGNER: URGENCY: STATUS: COMPLETED REASON FOR VISIT/CHIEF COMPLAINT: Right inguinal pain since catheter change 5 days ago. Patient walked in with intermittent pain over the left groin which occurs an unexpected times but typically when walking up. He reports that the pain to be paralyzing him but resolves and he typically can walk again. The patient does not want to go back to the ER. Of note the patient has had multiple urology consultations for his prostate cancer and urinary retention/hematuria. He does not seem to accept the possibility of an indwelling catheter or up doing surgery for this condition. Though he has [employer], he does not have a PCP and would like to get another- year-old urology opinion. PHYSICAL EXAMINATION: Temperature: 96.4 F [35.8 C] (06/21/2024 09:42) Pulse: 20 (06/21/2024 09:42) Respiration: 20 (06/21/2024 09:42) BP: 147/73 (06/21/2024 09:42) Pain: 0 (06/21/2024 09:42) Height: 70 in [177.8 cm] (06/21/2024 09:42) Weight: 207 lb [93.89 kg] (06/21/2024 09:42) S1S2 lungs CTA b/l no flank tenderness no abd pain no pain with internal rotation of hips +trochanteric pain on palp to LEFT ASSESSMENT & PLAN: 79yo with prostate CA and urinary retention and co,plications related to cath with multiple ER visits (one episode of use of Abx) of which the patient has declined proposed surgery and chemo. The patient appears to want a gaurantee or conditions of complete trust which appear difficult to surmount given his own ideas about health. Current exam is unremarkable for hip pathology but he does had lateral triachteric tenderness to palpation which is diffirent from his paralytic pain episodes. /HE denies fever/chills/NS/abd pain/flank pain. Intact appetite. Prostate CA with retention - as above; fourth? consultation with ray conversations about doctor shopping so he can have an opinion which agrees with him - he raltes lack of confidence. Groin pain - suspect advancing process vs infection. PAin pattenr not suggestive of local mets but part of ddx; for UA/micro. Plan of care discussed with patient who articulates understanding. /mariana/ NOLAN VERDUZCO MD PHYSICIAN Signed: 08/09/2024 09:52 NOLAN VERDUZCO [place]
--- OUTSIDE RECORDS SUMMARY | 2024-08-30 18:40 | XMS_ITS | Encounter Summary ---
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 Organization [place] Address [address] [place] [address] Care Team Providers Care Policy Checker Name Role Phone NOLAN RAMACHANDRAN Primary Care [...] Segal's Name Patient's Relationship to Policy Segal [facility] ([facility] MEDICARE ADVANTAGE [place] INDIV IDUAL - [place] Sep 21, 2023 [id number] [phone] MARVIN [facility]UGANI S [facility] MEDICARE ADVANTAGE [facility] ([facility] Sep 21, 2023 [id number] [phone] DUGANMARVINI S PATIENT HUSKY MEDICAID HUSKY PLAN May 22, 2022 MEDICAI D [id number] MARVIN DUGANI S PATIENT MEDICARE ([facility] MEDICARE () PART B May 22, 2022 PART B [id number] DUGANMARVINI S PATIENT MEDICARE ([facility] MEDICARE (M) PART A Feb 19, 2009 PART A [id number] DUGAN,GENET S PATIENT MEDICARE PART D (WNR) MEDICARE (M) PART D Jul 22, 2022 PART D [id number] GENET DUGAN S PATIENT [facility] (WNR) MEDICARE ADVANTAGE [facility] (WNR) Sep 21, 2022 [id number] GENET DUGAN S PATIENT [facility] (WNR) MEDICARE [facility] (WNR) Sep 21, 2022 [id number] [phone] GENET DUGAN PATIENT Selected Encounter This section includes the information on record at [place] for the Encounter. Date/Time Encounter Type Encounter Description Reason Pro vider Source Aug 10, 2024 10:04 AM Outpatient Encounter PRIMARY CARE/MEDICINE IHE Encounter Template Text not used by [place] Plan of Treatment: Future Appointments (+ 6 months) and Future Tests (+/- 45 days) The Plan of Treatment section includes future care activities for the patient from all [place] treatmentfacilities. This section includes future appointments and future orders which are active, pending or scheduled. Future Appointments This section includes appointments that were scheduled to occur 6 months from the date of the Encounter, up to a maximum of 20 appointments. The data comes from all [place] treatment facilities. Appointment Date/Time Appointment Type Appointme nt Facility Name Aug 16, 2024 12:00 PM [facility] Aug 22, 2024 11:20 AM AMBULATORY - MEDICINE [facility] Aug 24, 2024 11:00 AM [facility]ORY - [facility]ICINE [facility] Dec 13, 2024 01:30 PM [facility]ORY [facility]INE [facility] Jan 02, 2025 10:00 AM AMBULATORY - MEDICINE [facility] Active, Pending, and Scheduled Orders This section includes a listing of several types of active, pending, and scheduled orders, including clinic medications orders, diagnostic test orders, procedure orders and consult orders; where the start date of the order is 45 days before the date of the Encounter or 45 days after the date of theEncounter. The data comes from all [facility]. Test Date/Time Test Type Test Details Facility Name Aug 09, 2024 09:40 AM Consult Order COMMUNITY CARE-UROLOGY Cons Talent Coordinator's Choice [facility] Lab Results: +/- 30 days of the encounter This section includes the Chemistry and Hematology Lab Results on record with [place] for the patient. Radiology Reports and Pathology Reports are provided separately, in subsequent sections. Lab Results This section contains the Chemistry/Hematology Results that were resulted 30 days before or 30 daysafter the date of the Encounter. Date/Time Source Result Type Result - Unit Interpretation Reference Range Comment Aug 24, 2024 11:28 AM [facility] CBC AND DIFF (AUTO) Specimen Type: BLOOD No comment entered. Ordering Provider: ROWENA ROY Report Released Date/Time: Aug 24, 2024 11:07 AM Reporting Lab: [facility] [address] [facility] [address] Performing Lab: [facility] [address] [facility] [address] WBC 8.84 10*3/uL 4.50-11.00 RBC 4.72 10*6/uL [...] 10*3/uL 0.00-0.00 Aug 24, 2024 11:28 AM [facility] MICROSCOPIC AUTOMATED, URINE Specimen Type: URINE Comment: If Glucose = >500 and Ketones are positive, please alert the Physician. Ordering Provider: MONICA RAMACHANDRAN Report Released Date/Time: Aug 09, 2024 09:43 AM Reporting Lab: [facility] [address] [facility] [address] Performing Lab: [address] [address] UA WBC 0-5 /[HPF] 0-5 UA BACTERIA 1+ /[HPF] NoneObs UA TRIPLE PHOSPHATE CRYSTALS MODERATE /[HPF] Not Established UA RBC 6-10 /[HPF] H 0-3 Aug 24, 2024 11:28 AM [facility] URINALYSIS Specimen Type: URINE Comment: If Glucose = >500 and Ketones are positive, please alert the Physician. Ordering Provider: MONICA RAMACHANDRAN Report Released Date/Time: Aug 09, 2024 09:43 AM Reporting Lab: [address] [address] Performing Lab: [address] [address] UA COLOR Light-Brown Yellow UA APPEARANCE Turbid Clear UA GLUCOSE Normal mg/dL Negative UA KETONES NEGATIVE mg/dL Negative UA BLOOD LARGE mg/dL Negative UA PROTEIN 100 mg/dL Negative UA NITRITE NEGATIVE mg/dL Negative UA BILIRUBIN NEGATIVE mg/dL Negative UA SPECIFIC GRAVITY 1.007 L 1.016-1.022 UA pH 8.5 5.0-9.0 UA UROBILINOGEN Normal mg/dL <2.0 UA LEUKOCYTE LARGE Negative Aug 08, 2024 10:59 AM [facility] VITAMIN D 25-OH (Therapy monitor) Specimen [...] For additional information, please refer to http://educatio n.[employer]opera.[employer]/faq/FAQ 199 (This link is being provided for informational/ educational purposes only.) This test was developed and its analytical performance characteristics have been determined by [employer] [place], [place]. It has not been cleared or approved by the U.S. Food and Drug Administration. This assay has been validated pursuant to the CLIA regulations and is used for clinical purposes. This test was developed and its analytical performance characteristics have been determined by [employer] [place], [place]. It has not been cleared or approved by the U.S. Food and Drug Administration. This assay has been validated pursuant to the CLIA regulations and is used for clinical purposes. Test Performed by [place] [facility], [facility], [address] [place] [address] Dov Bahena M.D., Ph.D., Director of Laboratories , CLIA [id number] TEST PERFORMED AT: , Ordering Provider: MONICA RAMACHANDRAN Report Released Date/Time: Aug 08, 2024 10:54 AM Reporting Lab: [address] [address] Performing Lab: [facility] [address] [address] VITAMIN D, 25-OH, TOTAL 51 ng/mL 30-100 VITAMIN D, 25-OH, D3 51 ng/mL VITAMIN D, 25-OH, D2 <4 ng/mL Aug 08, 2024 10:59 AM [facility] FOLATE (WROX) Specimen Type: SERUM No comment entered. Ordering Provider: MONICA RAMACHANDRAN Report Released Date/Time: Aug 08, 2024 10:54 AM Reporting Lab: [facility] [address] [facility] [address] Performing Lab: [facility] [place] [facility] [address] [facility] [address] FOLATE (WROX) 4.07 ng/mL L >5.2 Aug 08, 2024 10:59 AM [facility] TRN [place] [facility] MICROALBUMIN CREATININE RATIO PANEL Specimen Type: URINE No comment entered. Ordering Provider: MONICA RAMACHANDRAN Report Released Date/Time: Aug 08, 2024 10:54 AM Reporting Lab: [place] [facility] [place] [facility] [address] [facility] [address] Performing Lab: [facility] NORTHTRN [facility] [address] [facility] [address] MICROALBUMIN/ CREATININE RATIO 354.2 mg/g H 0-29.9 MICROALBUMIN, QUANTITATIVE 103.3 mg/dL RR UNAVAIL CREATININE URINE 291.68 mg/dL Aug 08, 2024 10:59 AM [facility] VITAMIN B12 Specimen Type: SERUM No comment entered. Ordering Provider: MONICA RAMACHANDRAN Report Released Date/Time: Aug 08, 2024 10:54 AM Reporting Lab: [facility] TRN [facility] [address] [facility] [address] Performing Lab: [facility]ITAL[facility]OM[facility]OSPITALN [facility]ITAL[facility] [address] [facility] [address] VITAMIN B12 1849 pg/mL H 200-900 Aug 08, 2024 10:59 AM [facility] LIPID PANEL FASTING Specimen Type: SERUM No comment entered. Ordering Provider: MONIAC RAMACHANDRAN Report Released Date/Time: Aug 08, 2024 10:54 AM Reporting Lab: [facility] NORTHTRN [place] [facility] [address] [facility] [address] Performing Lab: [facility] NORTHTRN [facility] [address] [facility] [address] CHOLESTEROL 178 mg/dL TRIGLYCERIDE 97 mg/dL 0-150 LDL calculated 97 mg/dL 0-129 CHOL/HDL 2.9 HDL CHOLESTEROL 62 mg/dL H 40-60 Aug 08, 2024 10:59 AM [facility]OM[facility]OSPITALN [facility]USE[facility] BASIC METABOLIC PANEL (fasting) Specimen Type: SERUM No comment entered. Ordering Provider: MONICA RAMACHANDRAN Report Released Date/Time: Aug 08, 2024 10:54 AM Reporting Lab: [facility] [address] [facility] [address] Performing Lab: [facility] [address] [facility] [address] UREA NITROGEN 22 mg/dL 7-25 GLUCOSE 91 mg/dL 65-100 SODIUM 138 mmol/L 135-145 POTASSIUM 4.8 mmol/L 3.5-5.0 CHLORIDE 105 mmol/L 100-110 CO2 25 meq/L 20-30 CREATININE, Serum 0.99 mg/dL 0.50-1.40 eGFR(CKD-EPI 2020) 77 mL/min >60 Aug 08, 2024 10:59 AM [facility] HEMOGLOBIN A1C PANEL Specimen Type: BLOOD Comment: Values obtained from A1C measurements can vary. For atypical A1C assays, a reported value of 7.0 could actually be between 6.72 and 7.28 if measured by a reference method. A reported value of 9.0 could actually be between 8.73 and 9.27. Ref: http://www.ngsp .org/CAPdata.as p Ordering Provider: MONICA RAMACHANDRAN Report Released Date/Time: Aug 08, 2024 10:54 AM Reporting Lab: [facility] [address] [facility] [address] Performing Lab: [address] [address] HEMOGLOBIN A1C 5.2 4.0-5.6 Aug 08, 2024 10:59 AM [facility] LIVER FUNCTION Specimen Type: SERUM No comment entered. Ordering Provider: MONICA RAMACHANDRAN Report Released Date/Time: Aug 08, 2024 10:54 AM Reporting Lab: [facility] [address] [facility] [address] Performing Lab: [address] [address] PROTEIN,TOTAL 6.7 g/dL 6.0-8.3 ALBUMIN 3.4 g/dL L 3.5-5.0 ALKALINE PHOSPHATASE 151 U/L H 40-150 AST 17 U/L 5-34 ALT 8 U/L BILIRUBIN, TOTAL 0.5 mg/dL 0.2-1.2 Aug 08, 2024 10:59 AM [facility] TSH Specimen Type: SERUM No comment entered. Ordering Provider: MONICA RAMACHANDRAN Report Released Date/Time: Aug 08, 2024 10:54 AM Reporting Lab: [facility]ITALR[facility]OM[facility] HOSPITALN [facility]ITALUS[facility] [address] [facility] [address] Performing Lab: [address] [address] TSH 1.93 u[IU]/mL 0.35-5.00 Aug 08, 2024 10:59 AM [facility] PSA Specimen Type: SERUM No comment entered. Ordering Provider: MONICA RAMACHANDRAN Report Released Date/Time: Aug 08, 2024 10:54 AM Reporting Lab: [facility]ITAL[facility]OM[facility]OSPITALN [facility]ITALUSE[facility] [address] [facility] [address] Performing Lab: [facility]ITALUSE[address] [address] PSA 30.59 ng/mL H 0.00-4.00 Aug 08, 2024 10:59 AM [facility] CBC AND DIFF (AUTO) Specimen Type: BLOOD No comment entered. Ordering Provider: MONICA RAMACHANDRAN Report Released Date/Time: Aug 08, 2024 10:54 AM Reporting Lab: [facility] [address] [facility] [address] Performing Lab: [facility]ITALUSE[address] [address] WBC 7.81 10*3/uL 4.50-11.00 RBC 4.88 10*6/uL [...] ALL of a patient's completed or amended [place] Advance and Rescinded Directives. The entries below indicate that a directive exists for the patient, but an actual copy is not included with this document. The data comes from all [place] facilities. Date Advance Directives Provider Source Apr 04, 2024 ADVANCE DIRECTIVE CHAPINCITO DEE [facility] Radiology Reports: +/- 30 days of [...] the Encounter. The data comes from all [place] treatment facilities. Date/Time Radiology Report Provider Source Aug 16, 2024 02:[address] ABDOMEN AND PELVIS WITH CONTRAST: JAKE DUGAN [id number] -[id number] M Exm Date: AUG 16, 2024@14:04 Req Phys: LUBANOLAN Pat Loc: CWM/SO/PACT 9 (Req'g Loc) Img Loc: [facility]/CT Service: Unknown [place] [facility] [place] [address] (Case [id number] COMPLETE) CT ABDOMEN AND PELVIS WITH CONTRA(CT Detailed) CPT:05219 Contrast Media : Non-ionic Iodinated Reason for Study: prostate CA Clinical History: Report Status: Verified Date Reported: AUG 16, 2024 Date Verified: AUG 16, 2024 Associate Teacher E-Sig: Report: CT ABDOMEN AND PELVIS WITH CONTRAST HISTORY: prostate CA COMPARISON: 03/14/2024 TECHNIQUE: CT of the abdomen and pelvis with multiplanar reformats was performed at the local [place] facility. A contrast-enhanced series was obtained in the portal venous phase. 350 images were received by the [place] National Teleradiology Program (NTP) for interpretation. RADIATION [...] tumor infiltration. READING PHYSICIAN: Kwabena Perez M.D. -[id number] 08/16/2024 20:18 [facility] National Teleradiology Program [phone] (For Medical Practitioner Use Only) Attention Patients / Veterans: If you have questions or concerns about these test results, please contact your ordering provider or primary care team. Primary Diagnostic Code: POSSIBLE MALIGNANCY Primary Interpreting Staff: RADIOLOGY,OUTSIDE SERVICE, Staff Physician / RADIOLOGY,OUTSIDE SERVICE [facility] Pathology Reports: +/- 30 days of [...] the Encounter. The data comes from all [place] treatment facilities. Date/Time Pathology Report Provider Source Aug 24, 2024 11:28 AM LR MICROBIOLOGY RE PORT: Reporting Lab: [facility] [CLIA# [id number]] [address] [place] [id number] Accession [UID]: [id number] [[id number]] Received: Aug 24, 2024@11:28 Collection sample: URINE CLEAN CATCH Collection date: Aug 24, 2024 11:28 Site/Specimen: URINE Provider: NOLAN RAMACHANDRAN Comment on specimen: POSITIVE CULTURE RESULTS MAY NOT REPRESENT CLINICAL INFECTION. CONSIDER NEED FOR ANTIBIOTICS IN THE CONTEXT OF UTI SYMPTOMS. Test(s) ordered: URINE CULTURE(MWROX).......... completed: Aug 29, 2024 08:33 * BACTERIOLOGY FINAL REPORT => Aug 29, 2024 08:32 TECH CODE: [id number] CULTURE RESULTS: 1. KLEBSIELLA OXYTOCA/RAOULTELLA ORNITHINOLYTICA - [...] Performing Laboratory: Klebsiella Oxytoca/raoultella Ornithinolytica Performed By: [facility] [CLIA# [id number]] [address] [place] [address] Pseudomonas Aeruginosa Performed By: [facility] [CLIA# [id number]] [address] [place] [address] Bact Report Remark #1 Performed By: [facility] [CLIA# [id number]] [address] [place] [address] Bact Report Remark #2 Performed By: [facility] [CLIA# [id number]] [address] [place] [address] ENRIQUETA FLORES Encounter Notes: All associated encounter notes This section contains the clinical notes associated to the Encounter. Date/Time Encounter Note(s) Provider Source Aug 10, 2024 10:04 AM PRIMARY CARE NOTE: LOCAL TITLE: WALK-IN NOTE PRIMARY CARE (T) STANDARD TITLE: PRIMARY CARE NOTE DATE OF NOTE: AUG 10, 2024@10:04 ENTRY DATE: AUG 10, 2024@10:04:35 AUTHOR: CHAPINCITO DEE EXP COSIGNER: URGENCY: STATUS: COMPLETED WALK-IN NOTE PRIMARY CARE (T) Has ADDENDA <====Click to Start Advanced Medical Support [place] presents to the Primary Care clinic with the following request: [ ]Medication Renewal/Refill [ ]Consultation with Team RN [ ]Symptoms [ X ]Other The [place] states they are: [ ]Waiting [ X ]Not Waiting No Walk in visit scheduled with PACT Nurse [ X ] At this encounter the [place]'s demographics were verified. [ X ] At this encounter the 's Insurance information was verified. [ X ] At this encounter the below scheduled visits for the [place] were discussed and appointment reminder card was offered. Future appointments: 09/05/2024 11:30 CWM/SO/PACT 9 10/26/2024 09:00 CWM/SO/PACT 9 10/28/2024 10:00 CWM/SO/PACT 9 01/02/2025 10:00 CWM/NO/OPTOMETRY/MERHAR Vet requesting to speak with Dr Ramachandran regarding his MRI states he is able to get a sooner appt by a non va provider. /viky MCINTYRE Signed: 08/10/2024 10:05 Receipt Acknowledged By: 08/10/2024 10:13 /mariana/ WAGNER MOORE,RN-BC REGISTERED NURSE (RN) 08/10/2024 ADDENDUM STATUS: COMPLETED Patient is requesting PCP to call him to discuss lab results. /mariana/ WAGNER MOORE,RN-BC REGISTERED NURSE (RN) Signed: 08/10/2024 10:14 Receipt Acknowledged By: * AWAITING SIGNATURE * NOLAN RAMACHANDRAN CASSANDRA M [place]
--- OUTSIDE RECORDS SUMMARY | 2024-08-30 18:40 | XMS_ITS ---
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 Organization [place] Address [address] [place] [address] Care Team Providers Care Furnace Attendant Name Role Phone NOLAN VERDUZCO Primary Care [...] Relationship to Policy Segal [facility] ([facility]) MEDICARE ADVANTAGE [place] INDIV IDUAL - [place] Sep 21, 2023 [id number] [phone] MAR[facility]IN [facility]UGANI S [facility] MEDICARE ADVANTAGE [facility] ([facility]) Sep 21, 2023 [id number] [phone] DUGANMARVINI S PATIENT HUSKY MEDICAID HUSKY PLAN May 22, 2022 MEDICAI D [id number] MARVIN DUGANI S PATIENT MEDICARE ([facility]) MEDICARE () PART B May 22, 2022 PART B [id number] [phone] DUGANMARVINI S PATIENT MEDICARE ([facility]) MEDICARE (M) PART A Feb 19, 2009 PART A [id number] DUGAN,GENET S PATIENT MEDICARE PART D (WNR) MEDICARE (M) PART D Jul 22, 2022 PART D [id number] [phone] GENET DUGAN PATIENT [facility] (WNR) MEDICARE ADVANTAGE MCR (WNR) Sep 21, 2022 [id number] GENET DUGAN PATIENT [facility] (WNR) MEDICARE ADVANTAGE MCR (WNR) Sep 21, 2022 [id number] GENET DUGAN PATIENT Selected Encounter This section includes the information on record at [place] for the Encounter. Date/Time Encounter Type Encounter Description Reason Pro vider Source Jun 23, 2024 12:00 AM Outpatient Encounter COMMUNITY CARE [...] - MEDICINE [place] [facility] [place] [facility] Aug 16, 2024 12:00 PM AMBULATORY - NONE [place] [facility] [place] [facility] Aug 22, 2024 11:20 AM AMBULATORY - MEDICINE [place] [facility] [place] [facility] Aug 24, 2024 11:00 AM [facility] Dec 13, 2024 01:30 PM [facility] Advance Directives: All historical and [...] Encounter. Date/Time Encounter Note(s) Provider Source Jun 23, 2024 12:00 AM NONVA CONSULT: LOCAL TITLE: COMMUNITY CARE-CONSULT RESULT NOTE STANDARD TITLE: NONVA CONSULT DATE OF NOTE: JUN 23, 2024 ENTRY DATE: AUG 05, 2024@09:18:59 AUTHOR: VINCE SEARS EXP COSIGNER: URGENCY: STATUS: COMPLETED VistA Imaging - Scanned Document SCANNED DOCUMENT SIGNATURE NOT REQUIRED Electronically Filed: 08/05/2024 by: VINCE SEARS LICENSED PRACTICAL NURSE VINCE SEARS [place] [facility]
--- OUTSIDE RECORDS SUMMARY | 2024-08-30 18:40 | XMS_ITS | Encounter Summary ---
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 ([place]) Organization [facility] [place] Address [address] [place] [id number] Care Team Providers Care Pipe Welder Name Role Phone NOLAN VERDUZCO Primary Care [...] to Policy Segal [facility] ([facility]) MEDICARE ADVANTAGE [place] INDIV IDUAL - [place] Sep 21, 2023 [id number] [phone] MARVIN DUGANI S PATIENT [facility] ([facility]) MEDICARE ADVANTAGE [facility] ([facility]) Sep 21, 2023 [id number] [phone] DUGANMARVINI S PATIENT [place] MEDICAID [place]AN May 22, 2022 MEDICAI D [id number] MARVIN DUGANI S PATIENT MEDICARE ([facility]) MEDICARE () PART B May 22, 2022 PART B [id number] DUGANMARVINI S PATIENT MEDICARE ([facility]) MEDICARE (M) PART A Feb 19, 2009 PART A [id number] [id number] [phone] DUGAN,GENTE S PATIENT MEDICARE PART D (WNR) MEDICARE (M) PART D Jul 22, 2022 PART D [id number] [id number] [phone] GENET DUGAN S PATIENT [facility] (WNR) MEDICARE ADVANTAGE [facility] (WNR) Sep 21, 2022 [id number] GENET DUGAN S PATIENT [facility] (WNR) MEDICARE [facility] (WNR) Sep 21, 2022 [id number] [phone] GENET DUGAN PATIENT Selected Encounter This section includes the information on record at [place] for the Encounter. Date/Time Encounter Type Encounter Description Reason Pro vider Source Jun 29, 2024 12:00 AM Outpatient Encounter COMMUNITY CARE CONSULT IHE Encounter Template Text not used by [place] Plan of Treatment: Future Appointments (+ 6 months) and Future Tests (+/- 45 days) The Plan of Treatment section includes future care activities for the patient from all [place] treatmentfacilities. This section includes future appointments and future orders which are active, pending or scheduled. Future Appointments This section includes appointments that were scheduled to occur 6 months from the date of the Encounter, up to a maximum of 20 appointments. The data comes from all [place] treatment [facility]. Appointment Date/Time Appointment Type Appointme nt Facility Name Aug 09, 2024 09:00 AM AMBULATORY - MEDICINE [facility] Aug 16, 2024 12:00 PM AMBULATORY - NONE [facility] Aug 22, 2024 11:20 AM AMBULATORY - MEDICINE [facility] Aug 24, 2024 11:00 AM [facility] Dec 13, 2024 01:30 PM [facility] Active, Pending, and Scheduled Orders This section includes a listing of several types of active, pending, and scheduled orders, including clinic medications orders, diagnostic test orders, procedure orders and consult orders; where the start date of the order is 45 days before the date of the Encounter or 45 days after the date of theEncounter. The data comes from all [facility]. Test Date/Time Test Type Test Details Facility Name Aug 09, 2024 09:40 AM Consult Order COMMUNITY CARE-UROLOGY Cons Field Services Analyst's Choice [facility] Advance Directives: All historical and current Section Date Range: From patient's date of to the date document was created. This section includes ALL of a patient's completed or amended [place] Advance and Rescinded Directives. The entries below indicate that a directive exists for the patient, but an actual copy is not included with this document. The data comes from all [place] facilities. Date Advance Directives Provider Source Apr 04, 2024 ADVANCE DIRECTIVE [facility]APINCITO D[facility] Encounter Notes: All associated encounter notes This section contains the clinical notes associated to the Encounter. Date/Time Encounter Note(s) Provider Source Jun 29, 2024 12:00 AM NONVA CONSULT: LOCAL TITLE: COMMUNITY CARE-CONSULT RESULT NOTE STANDARD TITLE: NONVA CONSULT DATE OF NOTE: JUN 29, 2024 ENTRY DATE: AUG 04, 2024@15:05:25 AUTHOR: SUNITA FITCH EXP COSIGNER: URGENCY: STATUS: COMPLETED VistA Imaging - Scanned Document SCANNED DOCUMENT SIGNATURE NOT REQUIRED Electronically Filed: 08/04/2024 by: SUNITA MCDONOUGH [place] [facility]
--- OUTSIDE RECORDS SUMMARY | 2024-08-30 18:40 | XMS_ITS | Encounter Summary ---
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 ([place]) Address [address] [place] [id number] Care Team Providers Care Intake Assessor Name Role Phone NOLAN VERDUZCO Primary Care [...] Segal's Name Patient's Relationship to Policy Segal [facility] ([facility]) MEDICARE ADVANTAGE [place] IN[place] - [place] Sep 21, 2023 [id number] [phone] MARVIN DUGANI S PATIENT [facility] ([facility]) MEDICARE ADVANTAGE [facility] ([facility]) Sep 21, 2023 [id number] [phone] DUGANMARVINI S PATIENT [place] MED[place]ID [place] May 22, 2022 MEDICAI D [id number] MARVIN DUGANI S PATIENT MEDICARE ([facility]) MEDICARE () PART B May 22, 2022 PART B [id number] [id number] [phone] DUGANMARVINI S PATIENT MEDICARE ([facility]) MEDICARE (M) PART A Feb 19, 2009 PART A [id number] DUGAN,GENET S PATIENT MEDICARE PART D (WNR) MEDICARE (M) PART D Jul 22, 2022 PART D [id number] [phone] GENET DUGAN S PATIENT [facility] (WNR) MEDICARE ADVANTAGE [facility] (WNR) Sep 21, 2022 [id number] GENET DUGAN S PATIENT [facility] (WNR) MEDICARE ADVANTAGE [facility] (WNR) Sep 21, 2022 [id number] [phone] GENET DUGAN PATIENT Selected Encounter This section includes the information on record at [place] for the Encounter. Date/Time Encounter Type Encounter Description Reason Pro vider Source Jul 06, 2024 12:00 AM Outpatient Encounter COMMUNITY CARE [...] 09, 2024 09:00 AM AMBULATORY - MEDICINE [facility] [place] [facility] Aug 16, 2024 12:00 PM AMBULATORY - [facility] [place] [facility] Aug 22, 2024 11:20 AM AMBULATORY - MEDICINE [facility] [place] [facility] Aug 24, 2024 11:00 [facility] Dec 13, 2024 01:30 PM [facility]ULATORY - MEDICINE [facility] Jan 02, 2025 10:00 AM [facility] Active, Pending, and Scheduled Orders This section includes a listing of several types of active, pending, and scheduled orders, including clinic medications orders, diagnostic test orders, procedure orders and consult orders; where the start date of the order is 45 days before the date of the Encounter or 45 days after the date of theEncounter. The data comes from all [place] treatment [facility]. Test Date/Time Test Type Test Details Facility Name Aug 09, 2024 09:40 AM Consult Order COMMUNITY CARE-UROLOGY Cons Drive Away Driver's Choice [facility] Advance Directives: All historical and current [...] Apr 04, 2024 ADVANCE DIRECTIVE [facility]O D[facility] Encounter Notes: All associated encounter notes This section contains the clinical notes associated to the Encounter. Date/Time Encounter Note(s) Provider Source Jul 06, 2024 12:00 AM NONVA CONSULT: LOCAL TITLE: COMMUNITY CARE-CONSULT RESULT NOTE STANDARD TITLE: NONVA CONSULT DATE OF NOTE: JUL 06, 2024 ENTRY DATE: AUG 03, 2024@15:23:35 AUTHOR: VINCE SEARS EXP COSIGNER: URGENCY: STATUS: COMPLETED VistA Imaging - Scanned Document SCANNED DOCUMENT SIGNATURE NOT REQUIRED Electronically Filed: 08/03/2024 by: VINCE SEARS LICENSED PRACTICAL NURSE VINCE SEARS [facility]
--- OUTSIDE RECORDS SUMMARY | 2024-08-30 18:40 | XMS_ITS | Encounter Summary ---
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 [place] Organization [facility] [place] [facility] [place] Address [address] [place] [id number] Care Team Providers Care Patient Transporter Name Role Phone NOLAN VERDUZCO Primary Care [...] Segal's Name Patient's Relationship to Policy Segal [facility] ([facility]) MEDICARE ADVANTAGE [place] INDIV IDUAL - [place] Sep 21, 2023 [id number] [phone] MARVIN DUGANI S PATIENT [facility] ([facility]) MEDICARE ADVANTAGE [facility] ([facility]) Sep 21, 2023 [id number] [phone] DUGANMARVINI S PATIENT [place] MEDICAID H[place]KY PLAN May 22, 2022 MEDICAI D [id number] MARVIN DUGANI S PATIENT MEDICARE ([facility]) MEDICARE () PART B May 22, 2022 PART B [id number] DUGANMARVINI S PATIENT MEDICARE ([facility]) MEDICARE (M) PART A Feb 19, 2009 PART A [id number] [phone] DUGAN,GENET S PATIENT MEDICARE PART D (WNR) MEDICARE (M) PART D Jul 22, 2022 PART D [id number] GENET DUGAN S PATIENT [facility] (WNR) MEDICARE ADVANTAGE [facility] (WNR) Sep 21, 2022 [id number] GENET DUGAN S PATIENT [facility] (WNR) MEDICARE ADVANTAGE [facility] (WNR) Sep 21, 2022 [id number] GENET DUGAN PATIENT Selected Encounter This section includes the information on record at [place] for the Encounter. Date/Time Encounter Type Encounter Description Reason Pro vider Source Aug 04, 2024 03:48 PM Outpatient Encounter COMMUNITY CARE CONSULT IHE Encounter Template Text not used by [place] Plan of Treatment: Future Appointments (+ 6 months) and Future Tests (+/- 45 days) The Plan of Treatment section includes future care activities for the patient from all [place] treatmentfacilities. This section includes future appointments and future orders which are active, pending or scheduled. Future Appointments This section includes appointments that were scheduled to occur 6 months from the date of the Encounter, up to a maximum of 20 appointments. The data comes from all [place] treatment facilities. Appointment Date/Time Appointment Type Appointme nt Facility Name Aug 09, 2024 09:00 AM AM[place]ULATORY [place]ICINE [place] [facility] [place] [facility] Aug 16, 2024 12:00 PM AMBULATORY - NONE [facility] [place] [facility] Aug 22, 2024 11:20 AM [place] [facility] [place] [facility] Aug 24, 2024 11:00 [facility] Dec 13, 2024 01:30 PM AM[facility]ATORY - MEDICINE [facility] Jan 02, 2025 10:00 AM AMBULATORY - MEDICINE [facility] Active, Pending, and Scheduled Orders This section includes a listing of several types of active, pending, and scheduled orders, including clinic medications orders, diagnostic test orders, procedure orders and consult orders; where the start date of the order is 45 days before the date of the Encounter or 45 days after the date of theEncounter. The data comes from all [place] treatment [facility]. Test Date/Time Test Type Test Details Facility Name Aug 09, 2024 09:40 AM Consult Order COMMUNITY CARE-UROLOGY Cons [facility] Lab Results: +/- 30 days of the encounter This section includes the Chemistry and Hematology Lab Results on record with [place] for the patient. Radiology Reports and Pathology Reports are provided separately, in subsequent sections. Lab Results This section contains the Chemistry/Hematology Results that were resulted 30 days before or 30 daysafter the date of the Encounter. Date/Time Source Result Type Result - Unit Interpretation Reference Range Comment Aug 24, 2024 11:28 AM [place] CBC AND DIFF (AUTO) Specimen Type: BLOOD No comment entered. Ordering Provider: ROWENA ROY Report Released Date/Time: Aug 24, 2024 11:07 AM Reporting Lab: [facility] [address] [address] Performing Lab: [facility] [address] [address] WBC 8.84 10*3/uL 4.50-11.00 RBC 4.72 10*6/uL [...] 10*3/uL 0.00-0.00 Aug 24, 2024 11:28 AM [facility] MICROSCOPIC AUTOMATED, URINE Specimen Type: URINE Comment: If Glucose = >500 and Ketones are positive, please alert the Physician. Ordering Provider: MONICA VERDUZCO Report Released Date/Time: Aug 09, 2024 09:43 AM Reporting Lab: [address] [address] Performing Lab: [address] [address] UA WBC 0-5 /[HPF] 0-5 UA BACTERIA 1+ /[HPF] NoneObs UA TRIPLE PHOSPHATE CRYSTALS MODERATE /[HPF] Not Established UA RBC 6-10 /[HPF] H 0-3 Aug 24, 2024 11:28 AM [facility] URINALYSIS Specimen Type: URINE Comment: If Glucose = >500 and Ketones are positive, please alert the Physician. Ordering Provider: MONICA VERDUZCO Report Released Date/Time: Aug 09, 2024 09:43 AM Reporting Lab: [address] [address] Performing Lab: [address] [address] UA COLOR Light-Brown Yellow UA APPEARANCE Turbid Clear UA GLUCOSE Normal mg/dL Negative UA KETONES NEGATIVE mg/dL Negative UA BLOOD LARGE mg/dL Negative UA PROTEIN 100 mg/dL Negative UA NITRITE NEGATIVE mg/dL Negative UA BILIRUBIN NEGATIVE mg/dL Negative UA SPECIFIC GRAVITY 1.007 L 1.016-1.022 UA pH 8.5 5.0-9.0 UA UROBILINOGEN Normal mg/dL <2.0 UA LEUKOCYTE LARGE Negative Aug 08, 2024 10:59 AM [facility] VITAMIN D 25-OH (Therapy monitor) Specimen Type: [...] For additional information, please refer to http://educatio [email or web address].conXt/faq/FAQ 199 (This link is being provided for informational/ educational purposes only.) This test was developed and its analytical performance characteristics have been determined by [employer] [place], [place]. It has not been cleared or approved by the U.S. Food and Drug Administration. This assay has been validated pursuant to the CLIA regulations and is used for clinical purposes. This test was developed and its analytical performance characteristics have been determined by [employer] [place], [place]. It has not been cleared or approved by the U.S. Food and Drug Administration. This assay has been validated pursuant to the CLIA regulations and is used for clinical purposes. Test Performed by [facility], [employer] [facility], [address] [place] [address] Dov Bahena M.D., Ph.D., Director of Laboratories , CLIA [id number] TEST PERFORMED AT: , Ordering Provider: MONICA VERDUZCO Report Released Date/Time: Aug 08, 2024 10:54 AM Reporting Lab: [facility] [address] [address] Performing Lab: [facility] [address] [address] VITAMIN D, 25-OH, TOTAL 51 ng/mL 30-100 VITAMIN D, 25-OH, D3 51 ng/mL VITAMIN D, 25-OH, D2 <4 ng/mL Aug 08, 2024 10:59 AM [facility] FOLATE (WROX) Specimen Type: SERUM No comment entered. Ordering Provider: MONICA VERDUZCO Report Released Date/Time: Aug 08, 2024 10:54 AM Reporting Lab: [facility]ITAL[facility] [address] [address] Performing Lab: [facility]ITALRJOHN [facility] JON[facility]OSPITALN [facility]ITALUSETS [facility] [address] [facility] [address] FOLATE (WROX) 4.07 ng/mL L >5.2 Aug 08, 2024 10:[address] [facility] MICROALBUMIN CREATININE RATIO PANEL Specimen Type: URINE No comment entered. Ordering Provider: MONICA VERDUZCO Report Released Date/Time: Aug 08, 2024 10:54 AM Reporting Lab: [facility]ITALRJOHN [facility] JON[facility] HOSPITALN [facility]PITALUSETS [facility] [address] [address] Performing Lab[facility]ITALUSE[facility] [address] [address] MICROALBUMIN/ CREATININE RATIO 354.2 mg/g H 0-29.9 MICROALBUMIN, QUANTITATIVE 103.3 mg/dL RR UNAVAIL CREATININE URINE 291.68 mg/dL Aug 08, 2024 10:59 AM [facility] VITAMIN B12 Specimen Type: SERUM No comment entered. Ordering Provider: MONICA VERDUZCO Report Released Date/Time: Aug 08, 2024 10:54 AM Reporting Lab: [facility]ITALUSE[facility] [address] [address] Performing Lab: [facility]ITALUSE[facility] [address] [address] VITAMIN B12 1849 pg/mL H 200-900 Aug 08, 2024 10:59 AM [facility] LIPID PANEL FASTING Specimen Type: SERUM No comment entered. Ordering Provider: MONICA VERDUZCO Report Released Date/Time: Aug 08, 2024 10:54 AM Reporting Lab: [facility]OSPITALRJOHN PAUL JONES HOSPITALN [facility]OSPITALUSETS [facility] [address] [address] Performing Lab: [facility] HOSPITALUSE[address] [address] CHOLESTEROL 178 mg/dL TRIGLYCERIDE 97 mg/dL 0-150 LDL calculated 97 mg/dL 0-129 CHOL/HDL 2.9 HDL CHOLESTEROL 62 mg/dL H 40-60 Aug 08, 2024 10:59 AM [facility] BASIC METABOLIC PANEL (fasting) Specimen Type: SERUM No comment entered. Ordering Provider: MONICA VERDUZCO Report Released Date/Time: Aug 08, 2024 10:54 AM Reporting Lab: [facility] [address] [address] Performing Lab: [facility] [address] [address] UREA NITROGEN 22 mg/dL 7-25 GLUCOSE 91 mg/dL 65-100 SODIUM 138 mmol/L 135-145 POTASSIUM 4.8 mmol/L 3.5-5.0 CHLORIDE 105 mmol/L 100-110 CO2 25 meq/L 20-30 CREATININE, Serum 0.99 mg/dL 0.50-1.40 eGFR(CKD-EPI 2020) 77 mL/min >60 Aug 08, 2024 10:59 AM [facility] LIVER FUNCTION Specimen Type: SERUM No comment entered. Ordering Provider: MONICA VERDUZCO Report Released Date/Time: Aug 08, 2024 10:54 AM Reporting Lab: [facility] [address] [address] Performing Lab: [address] [address] PROTEIN,TOTAL 6.7 g/dL 6.0-8.3 ALBUMIN 3.4 g/dL L 3.5-5.0 ALKALINE PHOSPHATASE 151 U/L H 40-150 AST 17 U/L 5-34 ALT 8 U/L BILIRUBIN, TOTAL 0.5 mg/dL 0.2-1.2 Aug 08, 2024 10:59 AM [facility] HEMOGLOBIN A1C PANEL Specimen Type: BLOOD Comment: [...] AM Reporting Lab: [place] [facility] [place] [facility] [address] [address] Performing Lab: [place] [facility] [place] [facility] [address] [address] HEMOGLOBIN A1C 5.2 4.0-5.6 Aug 08, 2024 10:59 AM [facility] [place] [facility] TSH Specimen Type: SERUM No comment entered. Ordering Provider: MONICA VERDUZCO Report Released Date/Time: Aug 08, 2024 10:54 AM Reporting Lab: [place] [facility] [place] [facility] [address] [address] Performing Lab: [place] [facility] [place] [facility] [address] [address] [address] TSH 1.93 u[IU]/mL 0.35-5.00 Aug 08, 2024 10:59 AM [facility]ITALRL TRN [facility]ITALUS[facility] PSA Specimen Type: SERUM No comment entered. Ordering Provider: MONICA VERDUZCO Report Released Date/Time: Aug 08, 2024 10:54 AM Reporting Lab: [place] [facility] [place] [facility] [address] [address] Performing Lab: [place] [facility] [place] [facility] [address] [address] [address] PSA 30.59 ng/mL H 0.00-4.00 Aug 08, 2024 10:59 AM [facility]ITALRL TRN [facility]ITALUS[facility] CBC AND DIFF (AUTO) Specimen Type: BLOOD No comment entered. Ordering Provider: MONICA VERDUZCO Report Released Date/Time: Aug 08, 2024 10:54 AM Reporting Lab: [place] [facility] [place] [facility] [address] [address] Performing Lab: [place] [facility] [place] [facility] [address] [address] WBC 7.81 10*3/uL 4.50-11.00 RBC 4.88 10*6/uL [...] ALL of a patient's completed or amended [place] Advance and Rescinded Directives. The entries below indicate that a directive exists for the patient, but an actual copy is not included with this document. The data comes from all [place] facilities. Date Advance Directives Provider Source Apr 04, 2024 ADVANCE DIRECTIVE [facility]APIN[facility]O DEE [facility] Radiology Reports: +/- 30 days [...] the Encounter. The data comes from all [place] treatment facilities. Date/Time Radiology Report Provider Source Aug 16, 2024 02:[address] ABDOMEN AND PELVIS WITH CONTRAST: JAKE DUGAN [id number] -[id number] M Exm Date: AUG 16, 2024@14:04 Req Phys: NOLAN VERDUZCO Pat Loc: [facility]/SO/PACT 9 (Req'g Loc) Img Loc: [facility]/CT Service: Unknown [facility] [place] [address] (Case [id number] COMPLETE) CT ABDOMEN AND PELVIS WITH CONTRA(CT Detailed) CPT:47492 Contrast Media : Non-ionic Iodinated Reason for Study: prostate CA Clinical History: Report Status: Verified Date Reported: AUG 16, 2024 Date Verified: AUG 16, 2024 Nuclear Control Room Operator E-Sig: Report: CT ABDOMEN AND PELVIS WITH CONTRAST HISTORY: prostate CA COMPARISON: 03/14/2024 TECHNIQUE: CT of the abdomen and pelvis with multiplanar reformats was performed at the local [place] facility. A contrast-enhanced series was obtained in the portal venous phase. 350 images were received by the [place] National Teleradiology Program (NTP) for interpretation. RADIATION [...] tumor infiltration. READING PHYSICIAN: Kwabena Perez M.D. -[phone] 08/16/2024 20:18 [facility] National Teleradiology Program [phone] (For Medical Practitioner Use Only) Attention Patients / Veterans: If you have questions or concerns about these test results, please contact your ordering provider or primary care team. Primary Diagnostic Code: POSSIBLE MALIGNANCY Primary Interpreting Staff: RADIOLOGY,OUTSIDE SERVICE, Staff Physician / RADIOLOGY,OUTSIDE SERVICE [facility] Pathology Reports: +/- 30 days of the [...] the Encounter. The data comes from all [place] treatment facilities. Date/Time Pathology Report Provider Source Aug 24, 2024 11:28 AM [facility] MICROBIOLOGY RE PORT: Reporting Lab: [facility] [CLIA# [id number]] [address] [place] [address] Accession [UID]: [id number] [[id number]] Received: Aug 24, 2024@11:28 Collection sample: URINE CLEAN CATCH Collection date: Aug 24, 2024 11:28 Site/Specimen: URINE Provider: NOLAN VERDUZCO Comment on specimen: POSITIVE CULTURE RESULTS MAY NOT REPRESENT CLINICAL INFECTION. CONSIDER NEED FOR ANTIBIOTICS IN THE CONTEXT OF UTI SYMPTOMS. Test(s) ordered: URINE CULTURE(MWROX).......... completed: Aug 29, 2024 08:33 * BACTERIOLOGY FINAL REPORT => Aug 29, 2024 08:32 TECH CODE: [id number] CULTURE RESULTS: 1. KLEBSIELLA OXYTOCA/RAOULTELLA ORNITHINOLYTICA - [...] Performing Laboratory: Klebsiella Oxytoca/raoultella Ornithinolytica Performed By: [facility] [CLIA# [id number]] [address] [place] [address] Pseudomonas Aeruginosa Performed By: [facility] [CLIA# [id number]] [address] [place] [address] Bact Report Remark #1 Performed By: [facility] [CLIA# [id number]] [address] [place] [address] Bact Report Remark #2 Performed By: [facility] [CLIA# [id number]] [address] [place] [address] ENRIQUETA FLORES [place] Encounter Notes: All associated encounter notes This section contains the clinical notes associated to the Encounter. Date/Time Encounter Note(s) Provider Source Aug 04, 2024 03:48 PM NONVA NOTE: [facility] TITLE: [facility] PRESENTING CARE COORD PLAN STANDARD TITLE: NONVA NOTE DATE OF NOTE: AUG 04, 2024@15:48 ENTRY DATE: AUG 04, 2024@15:48:11 AUTHOR: IKE BRODY EXP COSIGNER: URGENCY: STATUS: COMPLETED Emergency Notification Intake Date Presenting to the Facility: Jun Method of Contact: Notified from ECR worklist Notification ID: [id number] [facility] Referral #: [id number] [facility] Hospital Name: Hospital: [facility] Address: City: [place] State: [place] Zip Code: Phone : [facility] Facility Point of Contact: Name: Alfonzo Phone: Chief complaint: bladder pain Primary Diagnosis: Disposition Discharged Date of discharge: Jun Discharge to Comment: ER Only /mariana/ IKE MCINTYRE Signed: 08/04/2024 15:58 Receipt Acknowledged By: * AWAITING SIGNATURE * BLANCA ARELLANO * AWAITING SIGNATURE * RORO OSBORN * AWAITING SIGNATURE * SARAH YANEZ * AWAITING SIGNATURE * TIMA JEFFERSON DAWN MARIE [place]
--- OUTSIDE RECORDS SUMMARY | 2024-08-30 18:41 | XMS_ITS | Encounter Summary ---
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 [place] Organization [facility] [place] [place] Address [address] [place] [id number] Care Team Providers Care Truck Driver Supervisor Name Role Phone NOLAN VERDUZCO Primary [...] Segal's Name Patient's Relationship to Policy Segal [facility] ([facility]) MEDICARE ADVANTAGE [place] INDIV IDUAL - [place] Sep 21, 2023 [id number] [phone] MARVIN DUGANI S [facility]IENT [facility] ([facility]) MEDICARE ADVANTAGE [facility] ([facility]) Sep 21, 2023 [id number] [phone] DUGANMARVINI S PATIENT HUSKY MEDICAID HUSKY PLAN May 22, 2022 MEDICAI D [id number] MARVIN DUGANI S PATIENT MEDICARE ([facility]) MEDICARE () PART B May 22, 2022 PART B [id number] [phone] DUGANMARVINI S PATIENT MEDICARE ([facility]) MEDICARE (M) PART A Feb 19, 2009 PART A [id number] DUGAN,GENET S PATIENT MEDICARE PART D (WNR) MEDICARE (M) PART D Jul 22, 2022 PART D [id number] [phone] GENET DUGAN S PATIENT [facility] (WNR) MEDICARE ADVANTAGE [facility] (WNR) Sep 21, 2022 [id number] GENET DUGAN S PATIENT [facility] (WNR) MEDICARE ADVANTAGE [facility] (WNR) Sep 21, 2022 [id number] [phone] GENET DUGAN PATIENT Selected Encounter This section includes the information on record at [place] for the Encounter. Date/Time Encounter Type Encounter Description Reason Pro vider Source Jul 19, 2024 12:00 AM Outpatient Encounter [facility]ARE [...] 09, 2024 09:00 AM AMBULATORY - MEDICINE [facility] [place] [facility] Aug 16, 2024 12:00 PM AMBULATORY - [facility] [place] [facility] Aug 22, 2024 11:20 AM AMBULATORY [place]ICINE [place] [facility] [facility] Aug 24, 2024 11:00 AM [facility] Dec 13, 2024 01:30 PM [facility]BULATORY - MEDICINE [facility] Jan 02, 2025 10:00 AM [facility] Active, Pending, and Scheduled Orders This section includes a listing of several types of active, pending, and scheduled orders, including clinic medications orders, diagnostic test orders, procedure orders and consult orders; where the start date of the order is 45 days before the date of the Encounter or 45 days after the date of theEncounter. The data comes from all [place] treatment [facility]. Test Date/Time Test Type Test Details Facility Name Aug 09, 2024 09:40 AM Consult Order COMMUNITY CARE-UROLOGY Cons Chemist's Choice [facility] Lab Results: +/- 30 days of the encounter This section includes the Chemistry and Hematology Lab Results on record with [place] for the patient. Radiology Reports and Pathology Reports are provided separately, in subsequent sections. Lab Results This section contains the Chemistry/Hematology Results that were resulted 30 days before or 30 daysafter the date of the Encounter. Date/Time Source Result Type Result - Unit Interpretation Reference Range Comment Aug 08, 2024 10:59 AM [facility] VITAMIN D 25-OH (Therapy monitor) Specimen Type: [...] For additional information, please refer to [email or web address] (This link is being provided for informational/ educational purposes only.) This test was developed and its analytical performance characteristics have been determined by [facility] [place]. It has not been cleared or approved by the U.S. Food and Drug Administration. This assay has been validated pursuant to the CLIA regulations and is used for clinical purposes. This test was developed and its analytical performance characteristics have been determined by [facility] [place]. It has not been cleared or approved by the U.S. Food and Drug Administration. This assay has been validated pursuant to the CLIA regulations and is used for clinical purposes. Test Performed by [facility] [employer] [place], [employer] [place], [address] [place], [place] Dov Bahena M.D., Ph.D., Director of Laboratories , CLIA [id number] TEST PERFORMED AT: , Ordering Provider: HORTENCIA VERDUZCO Report Released Date/Time: Aug 08, 2024 10:54 AM Reporting Lab: [place] [facility] [address] [address] Performing Lab: [facility] [place] [facility] [address] [address] VITAMIN D, 25-OH, TOTAL 51 ng/mL 30-100 VITAMIN D, 25-OH, D3 51 ng/mL VITAMIN D, 25-OH, D2 <4 ng/mL Aug 08, 2024 10:59 AM [facility] FOLATE (WROX) Specimen Type: SERUM No comment entered. Ordering Provider: HORTENCIA VERDUZCO Report Released Date/Time: Aug 08, 2024 10:54 AM Reporting Lab: [facility] [place] [facility] [address] [facility] [address] Performing Lab: [facility] [address] [facility] [address] FOLATE (WROX) 4.07 ng/mL L >5.2 Aug 08, 2024 10:59 AM [facility] MICROALBUMIN CREATININE RATIO PANEL Specimen Type: URINE No comment entered. Ordering Provider: HORTENCIA VERDUZCO Report Released Date/Time: Aug 08, 2024 10:54 AM Reporting Lab: [facility] [address] [facility] [address] Performing Lab: [facility] [address] [address] MICROALBUMIN/ CREATININE RATIO 354.2 mg/g H 0-29.9 MICROALBUMIN, QUANTITATIVE 103.3 mg/dL RR UNAVAIL CREATININE URINE 291.68 mg/dL Aug 08, 2024 10:59 AM [facility] VITAMIN B12 Specimen Type: SERUM No comment entered. Ordering Provider: HORTENCIA VERDUZCO Report Released Date/Time: Aug 08, 2024 10:54 AM Reporting Lab: [facility] [address] [facility] [address] Performing Lab: [facility] [address] [address] VITAMIN B12 1849 pg/mL H 200-900 Aug 08, 2024 10:59 AM [facility] LIPID PANEL FASTING Specimen Type: SERUM No comment entered. Ordering Provider: HORTENCIA VERDUZCO Report Released Date/Time: Aug 08, 2024 10:54 AM Reporting Lab: [facility] [address] [facility] [address] Performing Lab: [facility] [address] [address] CHOLESTEROL 178 mg/dL TRIGLYCERIDE 97 mg/dL 0-150 LDL calculated 97 mg/dL 0-129 CHOL/HDL 2.9 HDL CHOLESTEROL 62 mg/dL H 40-60 Aug 08, 2024 10:59 AM [facility] BASIC METABOLIC PANEL (fasting) Specimen Type: SERUM No comment entered. Ordering Provider: HORTENCIA VERDUZCO Report Released Date/Time: Aug 08, 2024 10:54 AM Reporting Lab: [facility] [address] [facility] [address] Performing Lab: [facility] [address] [address] UREA NITROGEN 22 mg/dL 7-25 GLUCOSE 91 mg/dL 65-100 SODIUM 138 mmol/L 135-145 POTASSIUM 4.8 mmol/L 3.5-5.0 CHLORIDE 105 mmol/L 100-110 CO2 25 meq/L 20-30 CREATININE, Serum 0.99 mg/dL 0.50-1.40 eGFR(CKD-EPI 2020) 77 mL/min >60 Aug 08, 2024 10:59 AM [facility] LIVER FUNCTION Specimen Type: SERUM No comment entered. Ordering Provider: HORTENCIA VERDUZCO Report Released Date/Time: Aug 08, 2024 10:54 AM Reporting Lab: [facility] [address] [facility] [address] Performing Lab: [address] [address] PROTEIN,TOTAL 6.7 g/dL 6.0-8.3 ALBUMIN 3.4 g/dL L 3.5-5.0 ALKALINE PHOSPHATASE 151 U/L H 40-150 AST 17 U/L 5-34 ALT 8 U/L BILIRUBIN, TOTAL 0.5 mg/dL 0.2-1.2 Aug 08, 2024 10:59 AM [facility] HEMOGLOBIN A1C PANEL Specimen Type: BLOOD Comment: [...] Aug 08, 2024 10:54 AM Reporting Lab: [facility] [address] [facility] [address] Performing Lab: [address] [address] HEMOGLOBIN A1C 5.2 4.0-5.6 Aug 08, 2024 10:59 AM [facility] TSH Specimen Type: SERUM No comment entered. Ordering Provider: HORTENCIA VERDUZCO Report Released Date/Time: Aug 08, 2024 10:54 AM Reporting Lab: [facility] [address] [facility] [address] Performing Lab: [address] [address] TSH 1.93 u[IU]/mL 0.35-5.00 Aug 08, 2024 10:59 AM [facility] PSA Specimen Type: SERUM No comment entered. Ordering Provider: HORTENCIA VERDUZCO Report Released Date/Time: Aug 08, 2024 10:54 AM Reporting Lab: [facility] [address] [facility] [address] Performing Lab: [address] [address] PSA 30.59 ng/mL H 0.00-4.00 Aug 08, 2024 10:59 AM [facility] CBC AND DIFF (AUTO) Specimen Type: BLOOD No comment entered. Ordering Provider: HORTENCIA VERDUZCO Report Released Date/Time: Aug 08, 2024 10:54 AM Reporting Lab: [facility] [address] [facility] [address] Performing Lab: [facility] [address] [facility] [address] WBC 7.81 10*3/uL 4.50-11.00 RBC 4.88 10*6/uL [...] the Encounter. The data comes from all [place] treatment facilities. Date/Time Radiology Report Provider Source Aug 16, 2024 02:[address] ABDOMEN AND PELVIS WITH CONTRAST: JAKE DUGAN [id number] Biju Date: AUG 16, 2024@14:04 Req Phys: LUBA,NOLAN Pat Loc: [facility]/SO/PACT 9 (Req'g Loc) Img Loc: [facility]/CT Service: [facility] [place] [address] (Case [id number] COMPLETE) CT ABDOMEN AND PELVIS WITH CONTRA(CT Detailed) CPT:52484 Contrast Media : Non-ionic Iodinated Reason for Study: prostate CA Clinical History: Report Status: Verified Date Reported: AUG 16, 2024 Date Verified: AUG 16, 2024 Slumber Room Attendant E-Sig: Report: CT ABDOMEN AND PELVIS WITH CONTRAST HISTORY: prostate CA COMPARISON: 03/14/2024 TECHNIQUE: CT of the abdomen and pelvis with multiplanar reformats was performed at the local [place] facility. A contrast-enhanced series was obtained in the portal venous phase. 350 images were received by the [place] National Teleradiology Program (NTP) for interpretation. RADIATION [...] tumor infiltration. READING PHYSICIAN: Kwabena Perez M.D. -[id number] 08/16/2024 20:18 [facility] National Teleradiology Program [phone] (For Medical Practitioner Use Only) Attention Patients / Veterans: If you have questions or concerns about these test results, please contact your ordering provider or primary care team. Primary Diagnostic Code: POSSIBLE MALIGNANCY Primary Interpreting Staff: RADIOLOGY,OUTSIDE SERVICE, Staff Physician / RADIOLOGY,OUTSIDE SERVICE [place] [facility] Encounter Notes: All associated encounter notes This section contains the clinical notes associated to the Encounter. Date/Time Encounter Note(s) Provider Source Jul 19, 2024 12:00 AM NONVA CONSULT: LOCAL TITLE: COMMUNITY CARE-CONSULT RESULT NOTE STANDARD TITLE: NONVA CONSULT DATE OF NOTE: JUL 19, 2024 ENTRY DATE: AUG 13, 2024@15:32:37 AUTHOR: PING GUERIN COSIGNER: URGENCY: STATUS: COMPLETED VistA Imaging - Scanned Document SCANNED DOCUMENT SIGNATURE NOT REQUIRED Electronically Filed: 08/13/2024 by: PING SOLER CNT[facility]
--- OUTSIDE RECORDS SUMMARY | 2024-08-30 18:41 | XMS_ITS ---
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 Organization [facility] [place] Address [address] [place] [id number] Care Team Providers Care Universal Branch Consultant Name Role Phone NOLAN VERDUZCO Primary Care [...] Member ID Insurance Provider's Telephone Number Policy Seagl's Name Patient's Relationship to Policy Segal [facility] ([facility]) MEDICARE ADVANTAGE [place] INDIV IDUAL - [place] Sep 21, 2023 [id number] [phone] MARVIN DUGANI S [facility] MEDICARE ADVANTAGE [facility] ([facility]) Sep 21, 2023 [id number] [phone] DUGANMARVINI S PATIENT [place] MEDICAID [place] PLAN May 22, 2022 MEDICAI D [id number] MARVIN DUGANI S PATIENT MEDICARE ([facility]) MEDICARE () PART B May 22, 2022 PART B [id number] [phone] DUGANMARVINI S PATIENT MEDICARE ([facility]) MEDICARE (M) PART A Feb 19, 2009 PART A [id number] DUGAN,GENET S PATIENT MEDICARE PART D (WNR) MEDICARE (M) PART D Jul 22, 2022 PART D [id number] GENET DUGAN S PATIENT [facility] (WNR) MEDICARE ADVANTAGE [facility] (WNR) Sep 21, 2022 [id number] [phone] GENET DUGAN S PATIENT [facility] MCR (WNR) MEDICARE ADVANTAGE MCR (WNR) Sep 21, 2022 [id number] GENET DUGAN PATIENT Selected Encounter This section includes the information on record at [place] for the Encounter. Date/Time Encounter Type Encounter Description Reason Pro vider Source Jul 20, 2024 12:00 AM Outpatient Encounter [facility] [...] 09, 2024 09:00 AM AMBULATORY - MEDICINE [facility] [place] [facility] Aug 16, 2024 12:00 PM AMBULATORY - [facility] [place] [facility] Aug 22, 2024 11:20 AM AMBULATORY - MEDICINE [facility] [place] [facility] Aug 24, 2024 11:00 AM [facility] Dec 13, 2024 01:30 PM AMBULAT[facility] - MEDICINE [facility] Jan 02, 2025 10:00 AM [facility] Active, Pending, and Scheduled Orders This section includes a listing of several types of active, pending, and scheduled orders, including clinic medications orders, diagnostic test orders, procedure orders and consult orders; where the start date of the order is 45 days before the date of the Encounter or 45 days after the date of theEncounter. The data comes from all [place] treatment [facility]. Test Date/Time Test Type Test Details Facility Name Aug 09, 2024 09:40 AM Consult Order COMMUNITY CARE-UROLOGY Cons [facility] Lab Results: +/- 30 days of [...] Range Comment Aug 08, 2024 10:59 AM [facility] VITAMIN D 25-OH (Therapy monitor) Specimen Type: [...] For additional information, please refer to http://education .[employer]faq/AIF779 (This link is being provided for informational/ educational purposes only.) This test was developed and its analytical performance characteristics have been determined [place] It has not been cleared or approved by the U.S. Food and Drug Administration. This assay has been validated pursuant to the CLIA regulations and is used for clinical purposes. This test was developed and its analytical performance characteristics have been determined by [place] It has not been cleared or approved by the U.S. Food and Drug Administration. This assay has been validated pursuant to the CLIA regulations and is used for clinical purposes. Test Performed by [facility], [place], [address] [place], [place] Dov Bahena M.D., Ph.D., Director of Laboratories , CLIA [id number] TEST PERFORMED AT: , Ordering Provider: HORTENCIA VERDUZCO Report Released Date/Time: Aug 08, 2024 10:54 AM Reporting Lab: [place] [facility] [place] [facility] [address] [facility] [address] Performing Lab: [facility] [place] [facility] [address] [address] VITAMIN D, 25-OH, TOTAL 51 ng/mL 30-100 VITAMIN D, 25-OH, D3 51 ng/mL VITAMIN D, 25-OH, D2 <4 ng/mL Aug 08, 2024 10:59 AM [facility] FOLATE (WROX) Specimen Type: SERUM No comment entered. Ordering Provider: HORTENCIA VERDUZCO Report Released Date/Time: Aug 08, 2024 10:54 AM Reporting Lab: [facility] [place] [facility] [address] [facility] [address] Performing Lab: [facility] [address] [facility] [id number] FOLATE (WROX) 4.07 ng/mL L >5.2 Aug 08, 2024 10:59 AM [facility] MICROALBUMIN CREATININE RATIO PANEL Specimen Type: URINE No comment entered. Ordering Provider: HORETNCIA VERDUZCO Report Released Date/Time: Aug 08, 2024 10:54 AM Reporting Lab: [facility] [address] [facility] [address] Performing Lab: [facility] [address] [facility] [address] MICROALBUMIN/ CREATININE RATIO 354.2 mg/g H 0-29.9 MICROALBUMIN, QUANTITATIVE 103.3 mg/dL RR UNAVAIL CREATININE URINE 291.68 mg/dL Aug 08, 2024 10:59 AM [facility] VITAMIN B12 Specimen Type: SERUM No comment entered. Ordering Provider: HORTENCIA VERDUZCO Report Released Date/Time: Aug 08, 2024 10:54 AM Reporting Lab: [facility] [address] [facility] [address] Performing Lab: [facility]ITALR[facility]TRN [facility] [address] [facility] [address] VITAMIN B12 1849 pg/mL H 200-900 Aug 08, 2024 10:59 AM [facility] LIPID PANEL FASTING Specimen Type: SERUM No comment entered. Ordering Provider: HORTENCIA VERDUZCO Report Released Date/Time: Aug 08, 2024 10:54 AM Reporting Lab: [facility] [address] [facility] [address] Performing Lab: [facility] [address] [facility] [address] CHOLESTEROL 178 mg/dL TRIGLYCERIDE 97 mg/dL 0-150 LDL calculated 97 mg/dL 0-129 CHOL/HDL 2.9 HDL CHOLESTEROL 62 mg/dL H 40-60 Aug 08, 2024 10:59 AM [facility] BASIC METABOLIC PANEL (fasting) Specimen Type: SERUM No comment entered. Ordering Provider: HORTENCIA VERDUZCO Report Released Date/Time: Aug 08, 2024 10:54 AM Reporting Lab: [facility] [address] [facility] [address] Performing Lab: [facility] [address] [facility] [address] UREA NITROGEN 22 mg/dL 7-25 GLUCOSE 91 mg/dL 65-100 SODIUM 138 mmol/L 135-145 POTASSIUM 4.8 mmol/L 3.5-5.0 CHLORIDE 105 mmol/L 100-110 CO2 25 meq/L 20-30 CREATININE, Serum 0.99 mg/dL 0.50-1.40 eGFR(CKD-EPI 2020) 77 mL/min >60 Aug 08, 2024 10:59 AM [facility] HEMOGLOBIN A1C PANEL Specimen Type: BLOOD Comment: [...] Aug 08, 2024 10:54 AM Reporting Lab: [facility] [address] [facility] [address] Performing Lab: [place] [facility] [place] [facility] [address] [facility] [address] HEMOGLOBIN A1C 5.2 4.0-5.6 Aug 08, 2024 10:59 AM [facility] [place] [facility] LIVER FUNCTION Specimen Type: SERUM No comment entered. Ordering Provider: HORTENCIA VERDUZCO Report Released Date/Time: Aug 08, 2024 10:54 AM Reporting Lab: [facility] [place] [facility] [address] [facility] [address] Performing Lab: [facility]ITALR[facility] CENTERTRN [facility] [address] [facility] [address] PROTEIN,TOTAL 6.7 g/dL 6.0-8.3 ALBUMIN 3.4 g/dL L 3.5-5.0 ALKALINE PHOSPHATASE 151 U/L H 40-150 AST 17 U/L 5-34 ALT 8 U/L BILIRUBIN, TOTAL 0.5 mg/dL 0.2-1.2 Aug 08, 2024 10:59 AM [facility] TSH Specimen Type: SERUM No comment entered. Ordering Provider: HORTENCIA VERDUZCO Report Released Date/Time: Aug 08, 2024 10:54 AM Reporting Lab: [facility] [place] [facility] [address] [facility] [address] Performing Lab: [place] [facility] [place] [facility] [address] [facility] [address] TSH 1.93 u[IU]/mL 0.35-5.00 Aug 08, 2024 10:59 AM [facility] PSA Specimen Type: SERUM No comment entered. Ordering Provider: HORTENCIA VERDUZCO GRACIELA Report Released Date/Time: Aug 08, 2024 10:54 AM Reporting Lab: [facility] [place] [facility] [address] [facility] [address] Performing Lab: [place] [facility] [place] [facility] [address] [facility] [address] PSA 30.59 ng/mL H 0.00-4.00 Aug 08, 2024 10:59 AM [facility] CBC AND DIFF (AUTO) Specimen Type: BLOOD No comment entered. Ordering Provider: HORTENCIA VERDUZCO Report Released Date/Time: Aug 08, 2024 10:54 AM Reporting Lab: [facility] [address] [facility] [address] Performing Lab: [facility] [address] [facility] [address] WBC 7.81 10*3/uL 4.50-11.00 RBC 4.88 10*6/uL [...] ADVANCE DIRECTIVE [facility] Radiology Reports: +/- 30 days of [...] ABDOMEN AND PELVIS WITH CONTRAST: JAKE DUGAN [id number] -1945 Biju Date: AUG 16, 2024@14:04 Req Phys: LUBA,NOLAN Pat Loc: [facility]/SO/PACT 9 (Req'g Loc) Img Loc: [facility]/CT Service: [facility] [place] [address] (Case [id number] COMPLETE) CT ABDOMEN AND PELVIS WITH CONTRA(CT Detailed) CPT:18808 Contrast Media : Non-ionic Iodinated Reason for Study: prostate CA Clinical History: Report Status: Verified Date Reported: AUG 16, 2024 Date Verified: AUG 16, 2024 [employer] E-Sig: Report: CT ABDOMEN AND PELVIS WITH CONTRAST HISTORY: prostate CA COMPARISON: 03/14/2024 TECHNIQUE: CT of the abdomen and pelvis with multiplanar reformats was performed at the local CT facility. A contrast-enhanced series was obtained in the portal venous phase. 350 images were received by the CT National Teleradiology Program (NTP) for interpretation. RADIATION [...] tumor infiltration. READING PHYSICIAN: Kwabena Perez M.D. -[phone] 08/16/2024 20:18 [facility] National Teleradiology Program [phone] (For Medical Practitioner Use Only) Attention Patients / Veterans: If you have questions or concerns about these test results, please contact your ordering provider or primary care team. Primary Diagnostic Code: POSSIBLE MALIGNANCY Primary Interpreting Staff: RADIOLOGY,OUTSIDE SERVICE, Staff Physician / RADIOLOGY,OUTSIDE SERVICE CT [facility] [place] [facility] Encounter Notes: All associated encounter notes This section contains the clinical notes associated to the Encounter. Date/Time Encounter Note(s) Provider Source Jul 20, 2024 12:00 AM NONVA CONSULT: LOCAL TITLE: COMMUNITY CARE-CONSULT RESULT NOTE STANDARD TITLE: NONVA CONSULT DATE OF NOTE: JUL 20, 2024 ENTRY DATE: AUG 13, 2024@15:28:24 AUTHOR: PING GUERIN COSIGNER: URGENCY: STATUS: COMPLETED VistA Imaging - Scanned Document SCANNED DOCUMENT SIGNATURE NOT REQUIRED Electronically Filed: 08/13/2024 by: PING SOLER CNTL [facility]N [facility]
--- OUTSIDE RECORDS SUMMARY | 2024-08-30 18:41 | XMS_ITS | Encounter Summary ---
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 [place] Organization [facility] [place] Address [address] [place] [address] Care Team Providers Care Slurry Worker Name Role Phone NOLAN VERDUZCO Primary [...] Relationship to Policy Segal [facility] ([facility]) MEDICARE ADVANTAGE [place] INDIV IDUAL - [place] Sep 21, 2023 [id number] [phone] GENET DUGAN S PATIENT [facility] [place] ([facility]) MEDICARE ADVANTAGE [facility] ([facility]) Sep 21, 2023 [id number] [phone] DUGAN,GENET S PATIENT HUSKY MEDICAID H[place]KY PLAN May 22, 2022 MEDICAI D [id number] GENET DUGAN S PATIENT MEDICARE ([facility]) MEDICARE () PART B May 22, 2022 PART B [id number] [phone] MARVIN DUGANI S PATIENT MEDICARE ([facility]) MEDICARE () PART A Feb 19, 2009 PART A [id number] MARVIN DUGANI S PATIENT MEDICARE PART D (WNR) MEDICARE (M) PART D Jul 22, 2022 PART D [id number] GENET DUGAN S PATIENT [facility] (WNR) MEDICARE ADVANTAGE MCR (WNR) Sep 21, 2022 [id number] GENET DUGAN S PATIENT [facility] (WNR) MEDICARE ADVANTAGE MCR (WNR) Sep 21, 2022 [id number] [phone] GENET DUGAN PATIENT Selected Encounter This section includes the information on record at [place] for the Encounter. 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 Date/Time Primary/Secondary Diagnosis Diagnosis Name Provider Source Aug 17, 2024 08:36 AM PRIMARY Carcinoma in situ of prostate [facility] Plan of Treatment: Future Appointments (+ 6 months) and Future Tests (+/- 45 days) The Plan of Treatment section includes future care activities for the patient from all [place] treatmentfacilities. This section includes future appointments and future orders which are active, pending or scheduled. Future Appointments This section includes appointments that were scheduled to occur 6 months from the date of the Encounter, up to a maximum of 20 appointments. The data comes from all [place] treatment facilities. Appointment Date/Time Appointment Type Appointme nt Facility Name Aug 22, 2024 11:20 AM AMBULATORY - MED[facility] Aug 24, 2024 11:00 AM [facility] Dec 13, 2024 01:30 PM [facility] Jan 02, 2025 10:00 AM AMBULATORY MEDICINE [facility] Active, Pending, and Scheduled Orders This section includes a listing of several types of active, pending, and scheduled orders, including clinic medications orders, diagnostic test orders, procedure orders and consult orders; where the start date of the order is 45 days before the date of the Encounter or 45 days after the date of theEncounter. The data comes from all [place] treatment facilities. Test Date/Time Test Type Test Details Facility Name Aug 09, 2024 09:40 AM Consult Order COMMUNITY CARE-UROLOGY Cons [employer] Engineer[employer] Choice [facility] Lab Results: +/- 30 days of the encounter This section includes the Chemistry and Hematology Lab Results on record with [place] for the patient. Radiology Reports and Pathology Reports are provided separately, in subsequent sections. Lab Results This section contains the Chemistry/Hematology Results that were resulted 30 days before or 30 daysafter the date of the Encounter. Date/Time Source Result Type Result - Unit Interpretation Reference Range Comment Aug 24, 2024 11:28 AM [facility] CBC AND DIFF (AUTO) Specimen Type: BLOOD No comment entered. Ordering Provider: ROWENA ROY Report Released Date/Time: Aug 24, 2024 11:07 AM Reporting Lab: [address] [address] Performing Lab: [address] [address] WBC 8.84 10*3/uL 4.50-11.00 RBC 4.72 10*6/uL [...] 10*3/uL 0.00-0.00 Aug 24, 2024 11:28 AM [facility] MICROSCOPIC AUTOMATED, URINE Specimen Type: URINE Comment: If Glucose = >500 and Ketones are positive, please alert the Physician. Ordering Provider: MONICA VERDUZCO Report Released Date/Time: Aug 09, 2024 09:43 AM Reporting Lab: [address] [address] Performing Lab: [address] [address] UA WBC 0-5 /[HPF] 0-5 UA BACTERIA 1+ /[HPF] NoneObs UA TRIPLE PHOSPHATE CRYSTALS MODERATE /[HPF] Not Established UA RBC 6-10 /[HPF] H 0-3 Aug 24, 2024 11:28 AM [facility] URINALYSIS Specimen Type: URINE Comment: If Glucose = >500 and Ketones are positive, please alert the Physician. Ordering Provider: MONICA VERDUZCO Report Released Date/Time: Aug 09, 2024 09:43 AM Reporting Lab: [address] [address] Performing Lab: [address] [address] UA COLOR Light-Brown Yellow UA APPEARANCE Turbid Clear UA GLUCOSE Normal mg/dL Negative UA KETONES NEGATIVE mg/dL Negative UA BLOOD LARGE mg/dL Negative UA PROTEIN 100 mg/dL Negative UA NITRITE NEGATIVE mg/dL Negative UA BILIRUBIN NEGATIVE mg/dL Negative UA SPECIFIC GRAVITY 1.007 L 1.016-1.022 UA pH 8.5 5.0-9.0 UA UROBILINOGEN Normal mg/dL <2.0 UA LEUKOCYTE LARGE Negative Aug 08, 2024 10:59 AM [facility] VITAMIN D 25-OH (Therapy monitor) Specimen [...] For additional information, please refer to http://educatio [email or web address]/faq/FAQ 199 (This link is being provided for informational/ educational purposes only.) This test was developed and its analytical performance characteristics have been determined by [employer] [place], [place]. It has not been cleared or approved by the U.S. Food and Drug Administration. This assay has been validated pursuant to the CLIA regulations and is used for clinical purposes. This test was developed and its analytical performance characteristics have been determined by [employer] [place]. It has not been cleared or approved by the U.S. Food and Drug Administration. This assay has been validated pursuant to the CLIA regulations and is used for clinical purposes. Test Performed by [facility], [facility], [address] [place] [address] Dov Bahena M.D., Ph.D., Director of Laboratories , CLIA [id number] TEST PERFORMED AT: , Ordering Provider: MONICA VERDUZCO Report Released Date/Time: Aug 08, 2024 10:54 AM Reporting Lab: [facility] [address] [facility] [address] Performing Lab: [facility] [address] [address] VITAMIN D, 25-OH, TOTAL 51 ng/mL 30-100 VITAMIN D, 25-OH, D3 51 ng/mL VITAMIN D, 25-OH, D2 <4 ng/mL Aug 08, 2024 10:59 AM [facility] FOLATE (WROX) Specimen Type: SERUM No comment entered. Ordering Provider: MONICA VERDUZCO Report Released Date/Time: Aug 08, 2024 10:54 AM Reporting Lab: [place] [facility] [place] [facility] [address] [facility] [address] Performing Lab: [place] [facility] [place] [facility] [address] [facility] [address] FOLATE (WROX) 4.07 ng/mL L >5.2 Aug 08, 2024 10:59 AM [facility] VITAMIN B12 Specimen Type: SERUM No comment entered. Ordering Provider: MONICA VERDUZCO Report Released Date/Time: Aug 08, 2024 10:54 AM Reporting Lab: [facility] [address] [facility] [address] Performing Lab: [facility] [address] [address] VITAMIN B12 1849 pg/mL H 200-900 Aug 08, 2024 10:59 AM [facility] MICROALBUMIN CREATININE RATIO PANEL Specimen Type: URINE No comment entered. Ordering Provider: MONICA VERDUZCO Report Released Date/Time: Aug 08, 2024 10:54 AM Reporting Lab: [facility] [address] [facility] [address] Performing Lab: [facility] [address] [address] MICROALBUMIN/ CREATININE RATIO 354.2 mg/g H 0-29.9 MICROALBUMIN, QUANTITATIVE 103.3 mg/dL RR UNAVAIL CREATININE URINE 291.68 mg/dL Aug 08, 2024 10:59 AM [facility] BASIC METABOLIC PANEL (fasting) Specimen Type: SERUM No comment entered. Ordering Provider: MONICA VERDUZCO Report Released Date/Time: Aug 08, 2024 10:54 AM Reporting Lab: [place] [facility] [place] [facility] [address] [facility] [address] Performing Lab: [facility] [address] [facility] [address] UREA NITROGEN 22 mg/dL 7-25 GLUCOSE 91 mg/dL 65-100 SODIUM 138 mmol/L 135-145 POTASSIUM 4.8 mmol/L 3.5-5.0 CHLORIDE 105 mmol/L 100-110 CO2 25 meq/L 20-30 CREATININE, Serum 0.99 mg/dL 0.50-1.40 eGFR(CKD-EPI 2020) 77 mL/min >60 Aug 08, 2024 10:59 AM [facility] LIPID PANEL FASTING Specimen Type: SERUM No comment entered. Ordering Provider: MONICA VERDUZCO Report Released Date/Time: Aug 08, 2024 10:54 AM Reporting Lab: [facility] [address] [facility] [address] Performing Lab: [facility] [address] [facility] [address] CHOLESTEROL 178 mg/dL TRIGLYCERIDE 97 mg/dL 0-150 LDL calculated 97 mg/dL 0-129 CHOL/HDL 2.9 HDL CHOLESTEROL 62 mg/dL H 40-60 Aug 08, 2024 10:59 AM [facility] HEMOGLOBIN A1C PANEL Specimen Type: BLOOD [...] Aug 08, 2024 10:54 AM Reporting Lab: [facility] [address] [facility] [address] Performing Lab: [address] [address] HEMOGLOBIN A1C 5.2 4.0-5.6 Aug 08, 2024 10:59 AM [facility] LIVER FUNCTION Specimen Type: SERUM No comment entered. Ordering Provider: MONICA VERDUZCO Report Released Date/Time: Aug 08, 2024 10:54 AM Reporting Lab: [facility] [address] [facility] [address] Performing Lab: [facility] [address] [facility] [address] PROTEIN,TOTAL 6.7 g/dL 6.0-8.3 ALBUMIN 3.4 g/dL L 3.5-5.0 ALKALINE PHOSPHATASE 151 U/L H 40-150 AST 17 U/L 5-34 ALT 8 U/L BILIRUBIN, TOTAL 0.5 mg/dL 0.2-1.2 Aug 08, 2024 10:59 AM [facility] PSA Specimen Type: SERUM No comment entered. Ordering Provider: MONICA VERDUZCO Report Released Date/Time: Aug 08, 2024 10:54 AM Reporting Lab: [address] [address] Performing Lab: [address] [address] PSA 30.59 ng/mL H 0.00-4.00 Aug 08, 2024 10:59 AM [facility] TSH Specimen Type: SERUM No comment entered. Ordering Provider: MONICA VERDUZCO Report Released Date/Time: Aug 08, 2024 10:54 AM Reporting Lab: [facility] [address] [facility] [address] Performing Lab: [address] [address] TSH 1.93 u[IU]/mL 0.35-5.00 Aug 08, 2024 10:59 AM [facility] CBC AND DIFF (AUTO) Specimen Type: BLOOD No comment entered. Ordering Provider: MONICA VERDUZCO Report Released Date/Time: Aug 08, 2024 10:54 AM Reporting Lab: [address] [address] Performing Lab: [address] [address] WBC 7.81 10*3/uL 4.50-11.00 RBC 4.88 10*6/uL [...] and tobacco- related health factors from the [place] facility where the Encounter took place. Current Smoking Status This section includes the most current smoking, or tobacco-related health factor, from the [place] facility where the Encounter took place. Date/Time Current Smoking Status Comment [facility] May 31, 2024 10:00 AM DE-TOBACCO NEVER USED [facility] Tobacco Use History This section includes a history of the smoking, or tobacco-related health factors, that were collected on or before the date of the Encounter. The data comes from the [place] facility where the Encounter took place. Date/Time Smoking Status/Tobacco Use Comment F acility Jun 23, 2023 09:00 AM [place]-TOBACCO FORMER USER [facility] Jun 23, 2023 09:00 AM DE-TOBACCO QUIT 15 YRS OR MORE [facility] May 01, 2022 01:30 PM VA-TOBACCO FORMER USER [facility] May 01, 2022 01:30 PM VA-TOBACCO QUIT 15 YRS OR MORE [facility] Apr 15, 2021 03:00 PM VA-TOBACCO FORMER USER [facility] Apr 15, 2021 03:00 PM VA-TOBACCO QUIT 15 YRS OR MORE [facility] Oct 20, 2018 12:53 PM VA-TOBACCO FORMER USER [facility] Oct 20, 2018 12:53 PM VA-TOBACCO QUIT 15 YRS OR MORE [facility] Jul 03, 2017 10:33 AM QUIT TOBACCO USE > 7 YEARS AGO quit 25yrs ago [facility] February 13, 2016 08:46 AM LIFETIME NON-TOBACCO USER [facility] Advance Directives: All historical and current Section Date Range: From patient's date of to the date document was created. This section includes ALL of a patient's completed or amended [place] Advance and Rescinded Directives. The entries below indicate that a directive exists for the patient, but an actual copy is not included with this document. The data comes from all [facility]. Date Advance Directives Provider Source Apr 04, [address] [facility] Radiology Reports: +/- 30 days of [...] the Encounter. The data comes from all [place] treatment facilities. Date/Time Radiology Report Provider Source Aug 16, 2024 02:[address] ABDOMEN AND PELVIS WITH CONTRAST: JAKE DUGAN [id number] -1945 M Ex Date: AUG 16, 2024@14:04 Req Phys: LUBANOLAN MARTINEZ Pat Loc: CWM/SO/PACT 9 (Req'g Loc) Img Loc: NHM/CT Service: Unknown [place] [address] (Case [id number] COMPLETE) CT ABDOMEN AND PELVIS WITH CONTRA(CT Detailed) CPT:79856 Contrast Media : Non-ionic Iodinated Reason for Study: prostate CA Clinical History: Report Status: Verified Date Reported: AUG 16, 2024 Date Verified: AUG 16, 2024 Dedicated Regional Driver E-Sig: Report: CT ABDOMEN AND PELVIS WITH CONTRAST HISTORY: prostate CA COMPARISON: 03/14/2024 TECHNIQUE: CT of the abdomen and pelvis with multiplanar reformats was performed at the local [place] facility. A contrast-enhanced series was obtained in the portal venous phase. 350 images were received by the [place] National Teleradiology Program (NTP) for interpretation. RADIATION [...] tumor infiltration. READING PHYSICIAN: Kwabena Perez M.D. -[phone] 08/16/2024 20:18 [facility] National Teleradiology Program [phone] (For Medical Practitioner Use Only) Attention Patients / Veterans: If you have questions or concerns about these test results, please contact your ordering provider or primary care team. Primary Diagnostic Code: POSSIBLE MALIGNANCY Primary Interpreting Staff: RADIOLOGY,OUTSIDE SERVICE, Staff Physician / RADIOLOGY,OUTSIDE SERVICE [facility] Pathology Reports: +/- 30 days of [...] the Encounter. The data comes from all [place] treatment facilities. Date/Time Pathology Report Provider Source Aug 24, 2024 11:28 AM LR MICROBIOLOGY RE PORT: Reporting Lab: [facility] [CLIA# [id number]] [address] [place] [address] Accession [UID]: [id number] [[id number]] Received: Aug 24, 2024@11:28 Collection sample: URINE CLEAN CATCH Collection date: Aug 24, 2024 11:28 Site/Specimen: URINE Provider: NOLAN VERDUZCO Comment on specimen: POSITIVE CULTURE RESULTS MAY NOT REPRESENT CLINICAL INFECTION. CONSIDER NEED FOR ANTIBIOTICS IN THE CONTEXT OF UTI SYMPTOMS. Test(s) ordered: URINE CULTURE(MWROX).......... completed: Aug 29, 2024 08:33 * BACTERIOLOGY FINAL REPORT => Aug 29, 2024 08:32 TECH CODE: [id number] CULTURE RESULTS: 1. KLEBSIELLA OXYTOCA/RAOULTELLA ORNITHINOLYTICA - [...] Performing Laboratory: Klebsiella Oxytoca/raoultella Ornithinolytica Performed By: [facility] [CLIA# [id number]] [address] [place] [address] Pseudomonas Aeruginosa Performed By: [facility] [CLIA# [id number]] [address] [place] [address] Bact Report Remark #1 Performed By: [facility] [CLIA# [id number]] [address] [place] [address] Bact Report Remark #2 Performed By: [facility] [CLIA# [id number]] [address] [place] [address] ENRIQUETA FLORES [facility] Encounter Notes: All associated encounter notes This section contains the clinical notes associated to the Encounter. Date/Time Encounter Note(s) Provider Source Aug 17, 2024 08:36 AM ADMINISTRATIVE NOT E: LOCAL TITLE: ADMINISTRATIVE NOTE STANDARD TITLE: ADMINISTRATIVE NOTE DATE OF NOTE: AUG 17, 2024@08:36 ENTRY DATE: AUG 17, 2024@08:36:39 AUTHOR: NOLAN VERDUZCO EXP COSIGNER: URGENCY: STATUS: COMPLETED Include data from 08/18/2023 to 08/17/2024 08/17/2024 08:36 CONFIDENTIAL IMAGING REPORTS SUMMARY pg. 1 JAKE DUGAN [id number] : 1945 II - Imaging Impression (max 1 occurrence) Date Procedure CPT Status Case # 08/16/2024 CT [place] [id number] Verified 109 CONTRAST 1. Findings suspicious for widespread pulmonary metastases. The portions of the lungs containing the nodules on the current scan were not included on the prior CT IVP. 2. New adenopathy in the abdomen and pelvis is compatible with metastatic disease. 3. New dilatation of the urethra which could be postprocedural, represent thrombus, or represent tumor infiltration. READING PHYSICIAN: Kwabena Perez M.D. -[id number] 08/16/2024 20:18 [facility] National Teleradiology Program [phone] (For Medical Practitioner Use Only) Attention Patients / Veterans: If you have questions or concerns about these test results, please contact your ordering provider or primary care team. Discussed with staff. I'll break the unfortunate news after Thanksgiving. /es/ NOLAN VERDUZCO MD PHYSICIAN Signed: 08/17/2024 08:38 NOLAN VERDUZCO [facility]
--- OUTSIDE RECORDS SUMMARY | 2024-08-30 18:42 | XMS_ITS ---
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 Name Role Phone NOLAN VERDUZCO [...] Relationship to Policy Segal [facility] ([facility]) MEDICARE ADVANTAGE [place] INDIV IDUAL - [place] Sep 21, 2023 [id number] [phone] MARVIN DUGANI S [facility]IENT [facility] MEDICARE ADVANTAGE [facility] ([facility]) Sep 21, 2023 [id number] [phone] DUGANMARVINI S PATIENT [place] MEDICAID [place] PLAN May 22, 2022 MEDICAI D [id number] MARVIN DUGANI S PATIENT MEDICARE ([facility]) MEDICARE () PART B May 22, 2022 PART B [id number] DUGANMARVINI S PATIENT MEDICARE ([facility]) MEDICARE (M) PART A Feb 19, 2009 PART A [id number] DUGAN,GENET S PATIENT MEDICARE PART D (WNR) MEDICARE (M) PART D Jul 22, 2022 PART D [id number] [phone] [address] DUGAN S PATIENT [facility] (WNR) MEDICARE ADVANTAGE MCR (WNR) Sep 21, 2022 [id number] GENET DUGAN S PATIENT [facility] (WNR) MEDICARE ADVANTAGE MCR (WNR) Sep 21, 2022 [id number] [phone] GENET DUGAN PATIENT Selected Encounter This section includes the information on record at [place] for the Encounter. Date/Time Encounter Type Encounter Description Reason Pro vider Source Aug 22, 2024 02:23 PM Outpatient Encounter PRIMARY CARE/MEDICINE IHE Encounter Template Text not used by [place] Plan of Treatment: Future Appointments (+ 6 months) and Future Tests (+/- 45 days) The Plan of Treatment section includes future care activities for the patient from all [place] treatmentfacilities. This section includes future appointments and future orders which are active, pending or scheduled. Future Appointments This section includes appointments that were scheduled to occur 6 months from the date of the Encounter, up to a maximum of 20 appointments. The data comes from all [place] treatment facilities. Appointment Date/Time Appointment Type Appointme nt Facility Name Aug 24, 2024 11:00 AM AMBULATORY - MEDICINE [facility] Dec 13, 2024 01:30 PM AMBULATORY - MEDICINE [facility] Jan 02, 2025 10:00 AM AMBULATORY - MEDICINE [facility] Active, Pending, and Scheduled Orders This section includes a listing of several types of active, pending, and scheduled orders, including clinic medications orders, diagnostic test orders, procedure orders and consult orders; where the start date of the order is 45 days before the date of the Encounter or 45 days after the date of theEncounter. The data comes from all [place] treatment facilities. Test Date/Time Test Type Test Details Facility Name Aug 09, 2024 09:40 AM Consult Order COMMUNITY CARE-UROLOGY Cons Ship Worker's Choice [facility] [place] [facility] Lab Results: +/- 30 days of the encounter This section includes the Chemistry and Hematology Lab Results on record with [place] for the patient. Radiology Reports and Pathology Reports are provided separately, in subsequent sections. Lab Results This section contains the Chemistry/Hematology Results that were resulted 30 days before or 30 daysafter the date of the Encounter. Date/Time Source Result Type Result - Unit Interpretation Reference Range Comment Aug 24, 2024 11:28 AM [place] CBC AND DIFF (AUTO) Specimen Type: BLOOD No comment entered. Ordering Provider: ROWENA ROY Report Released Date/Time: Aug 24, 2024 11:07 AM Reporting Lab: [facility] [address] [facility] [address] Performing Lab: [facility] [address] [facility] [address] WBC 8.84 10*3/uL 4.50-11.00 RBC 4.72 10*6/uL [...] 10*3/uL 0.00-0.00 Aug 24, 2024 11:28 AM [facility] MICROSCOPIC AUTOMATED, URINE Specimen Type: URINE Comment: If Glucose = >500 and Ketones are positive, please alert the Physician. Ordering Provider: MONICA VERDUZCO Report Released Date/Time: Aug 09, 2024 09:43 AM Reporting Lab: [facility] [address] [facility] [address] Performing Lab: [facility] [address] [facility] [address] UA WBC 0-5 /[HPF] 0-5 UA BACTERIA 1+ /[HPF] NoneObs UA TRIPLE PHOSPHATE CRYSTALS MODERATE /[HPF] Not Established UA RBC 6-10 /[HPF] H 0-3 Aug 24, 2024 11:28 AM [facility] URINALYSIS Specimen Type: URINE Comment: If Glucose = >500 and Ketones are positive, please alert the Physician. Ordering Provider: MONICA VERDUZCO Report Released Date/Time: Aug 09, 2024 09:43 AM Reporting Lab: [facility] [address] [facility] [address] Performing Lab: [address] [address] UA COLOR Light-Brown Yellow UA APPEARANCE Turbid Clear UA GLUCOSE Normal mg/dL Negative UA KETONES NEGATIVE mg/dL Negative UA BLOOD LARGE mg/dL Negative UA PROTEIN 100 mg/dL Negative UA NITRITE NEGATIVE mg/dL Negative UA BILIRUBIN NEGATIVE mg/dL Negative UA SPECIFIC GRAVITY 1.007 L 1.016-1.022 UA pH 8.5 5.0-9.0 UA UROBILINOGEN Normal mg/dL <2.0 UA LEUKOCYTE LARGE Negative Aug 08, 2024 10:59 AM [facility] VITAMIN D 25-OH (Therapy monitor) Specimen [...] For additional information, please refer to http://educatio [email or web address]/faq/FAQ 199 (This link is being provided for informational/ educational purposes only.) This test was developed and its analytical performance characteristics have been determined by [employer] [place], [place]. It has not been cleared or approved by the U.S. Food and Drug Administration. This assay has been validated pursuant to the CLIA regulations and is used for clinical purposes. This test was developed and its analytical performance characteristics have been determined by [employer] [place], [place]. It has not been cleared or approved by the U.S. Food and Drug Administration. This assay has been validated pursuant to the CLIA regulations and is used for clinical purposes. Test Performed by [facility], [employer] [facility], [address] [place] [address] Dov Bahena M.D., Ph.D., Director of Laboratories , CLIA [id number] TEST PERFORMED AT: , Ordering Provider: MONICA VERDUZCO Report Released Date/Time: Aug 08, 2024 10:54 AM Reporting Lab: [facility] [address] [facility] [address] Performing Lab: [facility] [address] [address] VITAMIN D, 25-OH, TOTAL 51 ng/mL 30-100 VITAMIN D, 25-OH, D3 51 ng/mL VITAMIN D, 25-OH, D2 <4 ng/mL Aug 08, 2024 10:59 AM [facility] FOLATE ([facility]) Specimen Type: SERUM No comment entered. Ordering Provider: MONICA VERDUZCO Report Released Date/Time: Aug 08, 2024 10:54 AM Reporting Lab: [facility] [address] [facility] [address] Performing Lab: [facility] [address] [facility] [address] FOLATE (WROX) 4.07 ng/mL L >5.2 Aug 08, 2024 10:59 AM [facility] VITAMIN B12 Specimen Type: SERUM No comment entered. Ordering Provider: MONICA VERDUZCO Report Released Date/Time: Aug 08, 2024 10:54 AM Reporting Lab: [facility] [address] [facility] [address] Performing Lab: [facility] [address] [facility] [address] VITAMIN B12 1849 pg/mL H 200-900 Aug 08, 2024 10:59 AM [facility] MICROALBUMIN CREATININE RATIO PANEL Specimen Type: URINE No comment entered. Ordering Provider: MONICA VERDUZCO Report Released Date/Time: Aug 08, 2024 10:54 AM Reporting Lab: [facility] [address] [facility] [address] Performing Lab: [facility] [address] [facility] [address] MICROALBUMIN/ CREATININE RATIO 354.2 mg/g H 0-29.9 MICROALBUMIN, QUANTITATIVE 103.3 mg/dL RR UNAVAIL CREATININE URINE 291.68 mg/dL Aug 08, 2024 10:59 AM [facility] BASIC METABOLIC PANEL (fasting) Specimen Type: SERUM No comment entered. Ordering Provider: MONICA VERDUZCO Report Released Date/Time: Aug 08, 2024 10:54 AM Reporting Lab: [facility] [address] [facility] [address] Performing Lab: [facility] [address] [facility] [address] UREA NITROGEN 22 mg/dL 7-25 GLUCOSE 91 mg/dL 65-100 SODIUM 138 mmol/L 135-145 POTASSIUM 4.8 mmol/L 3.5-5.0 CHLORIDE 105 mmol/L 100-110 CO2 25 meq/L 20-30 CREATININE, Serum 0.99 mg/dL 0.50-1.40 eGFR(CKD-EPI 2020) 77 mL/min >60 Aug 08, 2024 10:59 AM [facility] LIPID PANEL FASTING Specimen Type: SERUM No comment entered. Ordering Provider: MONICA VERDUZCO Report Released Date/Time: Aug 08, 2024 10:54 AM Reporting Lab: [facility] [address] [facility] [address] Performing Lab: [facility] [address] [facility] [address] CHOLESTEROL 178 mg/dL TRIGLYCERIDE 97 mg/dL 0-150 LDL calculated 97 mg/dL 0-129 CHOL/HDL 2.9 HDL CHOLESTEROL 62 mg/dL H 40-60 Aug 08, 2024 10:59 AM [facility] HEMOGLOBIN A1C PANEL Specimen Type: BLOOD [...] Aug 08, 2024 10:54 AM Reporting Lab: [facility] [address] [facility] [address] Performing Lab: [address] [address] HEMOGLOBIN A1C 5.2 4.0-5.6 Aug 08, 2024 10:59 AM [facility] LIVER FUNCTION Specimen Type: SERUM No comment entered. Ordering Provider: MONICA VERDUZCO Report Released Date/Time: Aug 08, 2024 10:54 AM Reporting Lab: [facility] [address] [facility] [address] Performing Lab: [address] [address] PROTEIN,TOTAL 6.7 g/dL 6.0-8.3 ALBUMIN 3.4 g/dL L 3.5-5.0 ALKALINE PHOSPHATASE 151 U/L H 40-150 AST 17 U/L 5-34 ALT 8 U/L BILIRUBIN, TOTAL 0.5 mg/dL 0.2-1.2 Aug 08, 2024 10:59 AM [facility] PSA Specimen Type: SERUM No comment entered. Ordering Provider: MONICA VERDUZCO Report Released Date/Time: Aug 08, 2024 10:54 AM Reporting Lab: [facility] [address] [facility] [address] Performing Lab: [facility] [address] [address] PSA 30.59 ng/mL H 0.00-4.00 Aug 08, 2024 10:59 AM [facility] TSH Specimen Type: SERUM No comment entered. Ordering Provider: MONICA VERDUZCO Report Released Date/Time: Aug 08, 2024 10:54 AM Reporting Lab: [address] [address] Performing Lab: [address] [address] TSH 1.93 u[IU]/mL 0.35-5.00 Aug 08, 2024 10:59 AM [facility] CBC AND DIFF (AUTO) Specimen Type: BLOOD No comment entered. Ordering Provider: MONICA VERDUZCO Report Released Date/Time: Aug 08, 2024 10:54 AM Reporting Lab: [address] [address] Performing [facility]: [facility] [address] [address] WBC 7.81 10*3/uL 4.50-11.00 RBC 4.88 10*6/uL [...] this document. The data comes from all [place] facilities. Date Advance Directives Provider Source Apr 04, 2024 ADVANCE DIRECTIVE CHAPIN[facility]O [facility] [place] Radiology Reports: +/- 30 days of [...] the Encounter. The data comes from all [place] treatment facilities. 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 A contrast-enhanced series was obtained in the portal venous phase. 350 images were received by the [place] National [facility] (NTP) for interpretation. RADIATION [...] tumor infiltration. READING PHYSICIAN: Kwabena Perez M.D. -[id number] 08/16/2024 20:18 [facility] 360[facility] Program [phone] (For Medical Practitioner Use Only) Attention Patients / Veterans: If you have questions or concerns about these test results, please contact your ordering provider or primary care team. Primary Diagnostic Code: POSSIBLE MALIGNANCY Primary Interpreting Staff: RADIOLOGY,OUTSIDE SERVICE, Staff Physician / RADIOLOGY,OUTSIDE SERVICE [facility] Pathology Reports: +/- 30 days of [...] the Encounter. The data comes from all [place] treatment facilities. Date/Time Pathology Report Provider Source Aug 24, 2024 11:28 AM [facility] MICROBIOLOGY RE PORT: Reporting Lab: [facility] [CLIA# [id number]] [address] [place] [phone] Accession [UID]: [id number] [[id number]] Received: Aug 24, 2024@11:28 Collection sample: URINE CLEAN CATCH Collection date: Aug 24, 2024 11:28 Site/Specimen: URINE Provider: NOLAN VERDUZCO Comment on specimen: POSITIVE CULTURE RESULTS MAY NOT REPRESENT CLINICAL INFECTION. CONSIDER NEED FOR ANTIBIOTICS IN THE CONTEXT OF UTI SYMPTOMS. Test(s) ordered: URINE CULTURE([facility]).......... completed: Aug 29, 2024 08:33 * BACTERIOLOGY FINAL REPORT => Aug 29, 2024 08:32 TECH CODE: [id number] CULTURE RESULTS: 1. KLEBSIELLA OXYTOCA/RAOULTELLA ORNITHINOLYTICA - [...] Performing Laboratory: Klebsiella Oxytoca/raoultella Ornithinolytica Performed By: [facility] [CLIA# [id number]] [address] [place] [address] Pseudomonas Aeruginosa Performed By: [facility] [CLIA# [id number]] [address] [place] [address] Bact Report Remark #1 Performed By: [facility] [CLIA# [id number]] [address] [place] [phone] Bact Report Remark #2 Performed By: [facility] [CLIA# [id number]] [address] [place] [phone] ENRIQUETA FLORES Encounter Notes: All associated encounter notes This section contains the clinical notes associated to the Encounter. 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 He also reported he completed CT scan ordered by Provider last visit and requested copy of report while in [place] however he does not know the results.This senior technical writer advised [place] I will pass on the request to Provider to see Oncologist and results of CT scan. was advised by this senior technical writer if he continued to bleed and have concerns he should go to ER to get evaluated declined he stated they will not do anything for him only tell him he either has to have catherered halfway or have surgery. also reported to this senior technical writer he is [facility] [place] at 9[facility]45 am and will discuss concerns and request refrerral to oncologist he did not have the urologist information at that time but will call back the [facility] to provided that information. /mariana/ ISABEL FREDERICK LPN LPN Signed: 08/22/2024 14:43 ISABEL FREDERICK [place]
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
--- OUTSIDE RECORDS SUMMARY | 2024-08-30 18:43 | XMS_ITS | Encounter Summary ---
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 Organization [facility] [place] Address [address] [place] [id number] Care Team Providers Care Liquefaction And Regasification Helper Name Role Phone NOLAN VERDUZCO Primary [...] Relationship to Policy Segal [facility] ([facility] MEDICARE ADVANTAGE [place] INDIV IDUAL - [place] Sep 21, 2023 [id number] [phone] MARVIN [facility]UGANI S [facility] MEDIC[facility] ADVANTAGE [facility] ([facility] Sep 21, 2023 [id number] [phone] DUGANMARVINI S PATIENT [place]USKY MEDICAID H[place]KY PLAN May 22, 2022 MEDICAI D [id number] MARVIN DUGANI S PATIENT MEDICARE ([facility]) MEDICARE () PART B May 22, 2022 PART B [id number] [phone] DUGANMARVINI S PATIENT MEDICARE ([facility]) MEDICARE (M) PART A Feb 19, 2009 PART A [id number] [phone] DUGAN,GENET S PATIENT MEDICARE PART D (WNR) MEDICARE (M) PART D Jul 22, 2022 PART D [id number] [phone] GENET DUGAN S PATIENT [facility] (WNR) MEDICARE ADVANTAGE [facility] (WNR) Sep 21, 2022 [id number] [phone] GENET DUGAN S PATIENT [facility] (WNR) MEDICARE ADVANTAGE MCR (WNR) Sep 21, 2022 [id number] GENET DUGAN PATIENT Selected Encounter This section includes the information on record at [place] for the Encounter. Date/Time Encounter Type Encounter Description Reason Pro vider Source Jul 26, 2024 12:00 AM Outpatient Encounter COMMUNITY CARE CONSULT IHE Encounter Template Text not used by [place] Plan of Treatment: Future Appointments (+ 6 months) and Future Tests (+/- 45 days) The Plan of Treatment section includes future care activities for the patient from all [place] treatmentfacilities. This section includes future appointments and future orders which are active, pending or scheduled. Future Appointments This section includes appointments that were scheduled to occur 6 months from the date of the Encounter, up to a maximum of 20 appointments. The data comes from all [place] treatment facilities. Appointment Date/Time Appointment Type Appointme nt Facility Name Aug 09, 2024 09:00 AM AMBULATORY - MEDICINE [facility] [place] [facility] Aug 16, 2024 12:00 PM AMBULATORY - [facility] [place] [place] [facility] Aug 22, 2024 11:20 AM AMBULATORY - MEDICINE [place] [facility] [place] [facility] Aug 24, 2024 11:00 AM [facility] Dec 13, 2024 01:30 PM AM[facility]ULATORY [facility] Jan 02, 2025 10:00 AM [facility] Active, Pending, and Scheduled Orders This section includes a listing of several types of active, pending, and scheduled orders, including clinic medications orders, diagnostic test orders, procedure orders and consult orders; where the start date of the order is 45 days before the date of the Encounter or 45 days after the date of theEncounter. The data comes from all [place] treatment [facility]. 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 Radiology Reports and Pathology Reports are provided separately, in subsequent sections. Lab Results This section contains the Chemistry/Hematology Results that were resulted 30 days before or 30 daysafter the date of the Encounter. Date/Time Source Result Type Result - Unit Interpretation Reference Range Comment Aug 24, 2024 11:28 AM MAGNET CBC AND DIFF (AUTO) Specimen Type: BLOOD No comment entered. Ordering Provider: ROWENA ROY Report Released Date/Time: Aug 24, 2024 11:07 AM Reporting Lab: [facility] [address] [facility] [address] Performing Lab: [facility] [address] [facility] [address] WBC 8.84 10*3/uL 4.50-11.00 RBC 4.72 10*6/uL [...] 10*3/uL 0.00-0.00 Aug 24, 2024 11:28 AM [facility] MICROSCOPIC AUTOMATED, URINE Specimen Type: URINE Comment: If Glucose = >500 and Ketones are positive, please alert the Physician. Ordering Provider: MONICA VERDUZCO Report Released Date/Time: Aug 09, 2024 09:43 AM Reporting Lab: [address] [address] Performing Lab: [address] [address] UA WBC 0-5 /[HPF] 0-5 UA BACTERIA 1+ /[HPF] NoneObs UA TRIPLE PHOSPHATE CRYSTALS MODERATE /[HPF] Not Established UA RBC 6-10 /[HPF] H 0-3 Aug 24, 2024 11:28 AM [facility] URINALYSIS Specimen Type: URINE Comment: If Glucose = >500 and Ketones are positive, please alert the Physician. Ordering Provider: MONICA VERDUZCO Report Released Date/Time: Aug 09, 2024 09:43 AM Reporting Lab: [address] [address] Performing Lab: [address] [address] UA COLOR Light-Brown Yellow UA APPEARANCE Turbid Clear UA GLUCOSE Normal mg/dL Negative UA KETONES NEGATIVE mg/dL Negative UA BLOOD LARGE mg/dL Negative UA PROTEIN 100 mg/dL Negative UA NITRITE NEGATIVE mg/dL Negative UA BILIRUBIN NEGATIVE mg/dL Negative UA SPECIFIC GRAVITY 1.007 L 1.016-1.022 UA pH 8.5 5.0-9.0 UA UROBILINOGEN Normal mg/dL <2.0 UA LEUKOCYTE LARGE Negative Aug 08, 2024 10:59 AM [facility] VITAMIN D 25-OH (Therapy monitor) Specimen [...] For additional information, please refer to [email or web address] [email or web address] Quotes/faq/FAQ [email or web address] (This link is being provided for informational/ educational purposes only.) This test was developed and its analytical performance characteristics have been determined by [employer] [place], [place]. It has not been cleared or approved by the U.S. Food and Drug Administration. This assay has been validated pursuant to the CLIA regulations and is used for clinical purposes. This test was developed and its analytical performance characteristics have been determined by [employer] [place], [place]. It has not been cleared or approved by the U.S. Food and Drug Administration. This assay has been validated pursuant to the CLIA regulations and is used for clinical purposes. Test Performed by [facility], [employer] [facility], [address] [place] [address] Dov Bahena M.D., Ph.D., Director of Laboratories , CLIA [id number] TEST PERFORMED AT: , Ordering Provider: MONICA VERDUZCO Report Released Date/Time: Aug 08, 2024 10:54 AM Reporting Lab: [facility] [address] [facility] [address] Performing Lab: [facility] [address] [address] VITAMIN D, 25-OH, TOTAL 51 ng/mL 30-100 VITAMIN D, 25-OH, D3 51 ng/mL VITAMIN D, 25-OH, D2 <4 ng/mL Aug 08, 2024 10:59 AM [facility] FOLATE (WROX) Specimen Type: SERUM No comment entered. Ordering Provider: MONICA VERDUZCO Report Released Date/Time: Aug 08, 2024 10:54 AM Reporting [facility] [address] [facility] [address] Performing Lab: [facility] [address] [facility] [address] FOLATE (WROX) 4.07 ng/mL L >5.2 Aug 08, 2024 10:59 AM [facility] MICROALBUMIN CREATININE RATIO PANEL Specimen Type: URINE No comment entered. Ordering Provider: MONICA VERDUZCO Report Released Date/Time: Aug 08, 2024 10:54 AM Reporting Lab: [facility] [address] [facility] [address] Performing Lab: [facility] [address] [facility] [address] MICROALBUMIN/ CREATININE RATIO 354.2 mg/g H 0-29.9 MICROALBUMIN, QUANTITATIVE 103.3 mg/dL RR UNAVAIL CREATININE URINE 291.68 mg/dL Aug 08, 2024 10:59 AM [facility] VITAMIN B12 Specimen Type: SERUM No comment entered. Ordering Provider: MONICA VERDUZCO Report Released Date/Time: Aug 08, 2024 10:54 AM Reporting Lab: [facility] [address] [facility] [address] Performing Lab: [facility] [address] [facility] [address] VITAMIN B12 1849 pg/mL H 200-900 Aug 08, 2024 10:59 AM [facility] LIPID PANEL FASTING Specimen Type: SERUM No comment entered. Ordering Provider: MONICA VERDUZCO Report Released Date/Time: Aug 08, 2024 10:54 AM Reporting Lab: [facility] [address] [facility] [address] Performing Lab: [facility]USE[address] [address] CHOLESTEROL 178 mg/dL TRIGLYCERIDE 97 mg/dL 0-150 LDL calculated 97 mg/dL 0-129 CHOL/HDL 2.9 HDL CHOLESTEROL 62 mg/dL H 40-60 Aug 08, 2024 10:59 AM [facility] BASIC METABOLIC PANEL (fasting) Specimen Type: SERUM No comment entered. Ordering Provider: MONICA VERDUZCO Report Released Date/Time: Aug 08, 2024 10:54 AM Reporting Lab: [facility] [address] [facility] [address] Performing Lab: [facility] [address] [facility] [address] UREA NITROGEN 22 mg/dL 7-25 GLUCOSE 91 mg/dL 65-100 SODIUM 138 mmol/L 135-145 POTASSIUM 4.8 mmol/L 3.5-5.0 CHLORIDE 105 mmol/L 100-110 CO2 25 meq/L 20-30 CREATININE, Serum 0.99 mg/dL 0.50-1.40 eGFR(CKD-EPI 2020) 77 mL/min >60 Aug 08, 2024 10:59 AM [facility] HEMOGLOBIN A1C PANEL Specimen Type: BLOOD [...] Aug 08, 2024 10:54 AM Reporting Lab: [facility] [address] [facility] [address] Performing Lab: [address] [address] HEMOGLOBIN A1C 5.2 4.0-5.6 Aug 08, 2024 10:59 AM [facility] LIVER FUNCTION Specimen Type: SERUM No comment entered. Ordering Provider: MONICA VERDUZCO Report Released Date/Time: Aug 08, 2024 10:54 AM Reporting Lab: [facility] [address] [facility] [address] Performing Lab: [address] [address] PROTEIN,TOTAL 6.7 g/dL 6.0-8.3 ALBUMIN 3.4 g/dL L 3.5-5.0 ALKALINE PHOSPHATASE 151 U/L H 40-150 AST 17 U/L 5-34 ALT 8 U/L BILIRUBIN, TOTAL 0.5 mg/dL 0.2-1.2 Aug 08, 2024 10:59 AM [facility] TSH Specimen Type: SERUM No comment entered. Ordering Provider: MONICA VERDUZCO Report Released Date/Time: Aug 08, 2024 10:54 AM Reporting Lab: [place] [facility] [place] [facility] [address] [facility] [address] Performing Lab: [place] CN[facility] TRN [facility] [address] [address] TSH 1.93 u[IU]/mL 0.35-5.00 Aug 08, 2024 10:59 AM [facility] PSA Specimen Type: SERUM No comment entered. Ordering Provider: MONICA VERDUZCO Report Released Date/Time: Aug 08, 2024 10:54 AM Reporting Lab: [facility] [address] [facility] [address] Performing Lab: [facility] [address] [address] PSA 30.59 ng/mL H 0.00-4.00 Aug 08, 2024 10:59 AM [facility] CBC AND DIFF (AUTO) Specimen Type: BLOOD No comment entered. Ordering Provider: MONICA VERDUZCO Report Released Date/Time: Aug 08, 2024 10:54 AM Reporting Lab: [facility] [address] [address] Performing Lab: [facility] SYSTEMRUAB [facility]PITALTRN [facility]ITAL[facility]ETS [address] [address] WBC 7.81 10*3/uL 4.50-11.00 RBC 4.88 10*6/uL [...] ALL of a patient's completed or amended [place] Advance and Rescinded Directives. The entries below indicate that a directive exists for the patient, but an actual copy is not included with this document. The data comes from all [place] facilities. Date Advance Directives Provider Source Apr 04, 2024 ADVANCE DIRECTIVE CHAPINCITO DEE [facility] Radiology Reports: +/- 30 days [...] the Encounter. The data comes from all [place] treatment facilities. Date/Time Radiology Report Provider Source Aug 16, 2024 02:[address] ABDOMEN AND PELVIS WITH CONTRAST: JAKE DUGAN [id number] -[id number] M Exm Date: AUG 16, 2024@14:04 Req Phys: NOLAN VERDUZCO Pat Loc: [facility]/SO/PACT 9 (Req'g Loc) Img Loc: [facility]/CT Service: [facility] [place] [address] (Case [id number] COMPLETE) CT ABDOMEN AND PELVIS WITH CONTRA(CT Detailed) CPT:70358 Contrast Media : Non-ionic Iodinated Reason for Study: prostate CA Clinical History: Report Status: Verified Date Reported: AUG 16, 2024 Date Verified: AUG 16, 2024 Embryology Teacher E-Sig: Report: CT ABDOMEN AND PELVIS WITH CONTRAST HISTORY: prostate CA COMPARISON: 03/14/2024 TECHNIQUE: CT of the abdomen and pelvis with multiplanar reformats was performed at the local [place] facility. A contrast-enhanced series was obtained in the portal venous phase. 350 images were received by the [place] National Teleradiology Program (NTP) for interpretation. RADIATION [...] tumor infiltration. READING PHYSICIAN: Kwabena Perez M.D. -[phone] 08/16/2024 20:18 [facility] National Teleradiology Program [phone] (For Medical Practitioner Use Only) Attention Patients / Veterans: If you have questions or concerns about these test results, please contact your ordering provider or primary care team. Primary Diagnostic Code: POSSIBLE MALIGNANCY Primary Interpreting Staff: RADIOLOGY,OUTSIDE SERVICE, Staff Physician / RADIOLOGY,OUTSIDE SERVICE [facility] Pathology Reports: +/- 30 days of [...] the Encounter. The data comes from all [place] treatment facilities. Date/Time Pathology Report Provider Source Aug 24, 2024 11:28 AM LR MICROBIOLOGY RE PORT: Reporting Lab: [facility] [CLIA# [id number]] [address] [place] [address] Accession [UID]: [id number] [[id number]] Received: Aug 24, 2024@11:28 Collection sample: URINE CLEAN CATCH Collection date: Aug 24, 2024 11:28 Site/Specimen: URINE Provider: NOLAN VERDUZCO Comment on specimen: POSITIVE CULTURE RESULTS MAY NOT REPRESENT CLINICAL INFECTION. CONSIDER NEED FOR ANTIBIOTICS IN THE CONTEXT OF UTI SYMPTOMS. Test(s) ordered: URINE CULTURE(MWROX).......... completed: Aug 29, 2024 08:33 * BACTERIOLOGY FINAL REPORT => Aug 29, 2024 08:32 TECH CODE: [id number] CULTURE RESULTS: 1. KLEBSIELLA OXYTOCA/RAOULTELLA ORNITHINOLYTICA - [...] By: [facility] [CLIA# [id number]] [address] [place] [address] Pseudomonas Aeruginosa Performed By: [facility] [CLIA# [id number]] [address] [place] [address] Bact Report Remark #1 Performed By: [facility] [CLIA# [id number]] [address] [place] [address] Bact Report Remark #2 Performed By: [facility] [CLIA# [id number]] [address] [place] [address] ENRIQUETA FLORES [employer] Encounter Notes: All associated encounter notes This section contains the clinical notes associated to the Encounter. Date/Time Encounter Note(s) Provider Source Jul 26, 2024 12:00 AM NONVA CONSULT: LOCAL TITLE: COMMUNITY CARE-CONSULT RESULT NOTE STANDARD TITLE: NONVA CONSULT DATE OF NOTE: JUL 26, 2024 ENTRY DATE: AUG 25, 2024@14:34:44 AUTHOR: BRANDIE WEINER EXP COSIGNER: URGENCY: STATUS: COMPLETED VistA Imaging - Scanned Document SCANNED DOCUMENT SIGNATURE NOT REQUIRED Electronically Filed: 08/25/2024 by: BRANDIE WEINER MOBILE UI/UX DESIGNER BRANDIE WEINER [place] CNT[facility]
--- OUTSIDE RECORDS SUMMARY | 2024-08-30 18:43 | XMS_ITS ---
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 [place] Organization [facility] [place] [place] Address [address] [place] [id number] Care Team Providers Care Extract Puller Name Role Phone NOLAN VERDUZCO Primary Care [...] Segal's Name Patient's Relationship to Policy Segal [facility] ([facility]) MEDICARE ADVANTAGE [place] INDIV IDUAL - [place] Sep 21, 2023 [id number] [phone] MARVIN D[facility]ANI [facility] MEDICARE ADVANTAGE [facility] ([facility]) Sep 21, 2023 [id number] [phone] DUGANMARVINI S PATIENT HUSKY MEDICAID HUSKY PLAN May 22, 2022 MEDICAI D [id number] MARVIN DUGANI S PATIENT MEDICARE ([facility]) MEDICARE () PART B May 22, 2022 PART B [id number] DUGANMARVINI S PATIENT MEDICARE ([facility]) MEDICARE (M) PART A Feb 19, 2009 PART A [id number] DUGAN,GENET S PATIENT MEDICARE PART D (WNR) MEDICARE (M) PART D Jul 22, 2022 PART D [id number] [phone] GENET DUGAN S PATIENT [facility] (WNR) MEDICARE ADVANTAGE [facility] (WNR) Sep 21, 2022 [id number] GENET DUGAN S PATIENT [facility] (WNR) MEDICARE ADVANTAGE MCR (WNR) Sep 21, 2022 [id number] GENET DUGAN PATIENT Selected Encounter This section includes the information on record at [place] for the Encounter. Date/Time Encounter Type Encounter Description Reason Pro vider Source Aug 25, 2024 10:57 AM Outpatient Encounter PRIMARY CARE/MEDICINE IHE Encounter [...] 13, 2024 01:30 PM AMBULATORY - MEDICINE [facility] Jan 02, 2025 10:00 AM AMBULATORY - MEDICINE [facility] [place] [facility] Active, Pending, and Scheduled Orders [...] 09:40 AM Consult Order COMMUNITY CARE-UROLOGY Cons Laborer [place] [facility] [place] [facility] Lab Results: +/- 30 days of the encounter This section includes the Chemistry and Hematology Lab Results on record with [place] for the patient. Radiology Reports and Pathology Reports are provided separately, in subsequent sections. Lab Results This section contains the Chemistry/Hematology Results that were resulted 30 days before or 30 daysafter the date of the Encounter. Date/Time Source Result Type Result - Unit Interpretation Reference Range Comment Aug 24, 2024 11:28 AM [facility] CBC AND DIFF (AUTO) Specimen Type: BLOOD No comment entered. Ordering Provider: ROWENA ROY Report Released Date/Time: Aug 24, 2024 11:07 AM Reporting Lab: [facility] [address] [facility] [address] Performing Lab: [facility] [address] [facility] [address] WBC 8.84 10*3/uL 4.50-11.00 RBC 4.72 10*6/uL [...] 10*3/uL 0.00-0.00 Aug 24, 2024 11:28 AM [facility] MICROSCOPIC AUTOMATED, URINE Specimen Type: URINE Comment: If Glucose = >500 and Ketones are positive, please alert the Physician. Ordering Provider: MONICA VERDUZCO Report Released Date/Time: Aug 09, 2024 09:43 AM Reporting Lab: [facility] [address] [facility] [address] Performing Lab: [facility] [address] [facility] [address] UA WBC 0-5 /[HPF] 0-5 UA BACTERIA 1+ /[HPF] NoneObs UA TRIPLE PHOSPHATE CRYSTALS MODERATE /[HPF] Not Established UA RBC 6-10 /[HPF] H 0-3 Aug 24, 2024 11:28 AM [facility] URINALYSIS Specimen Type: URINE Comment: If Glucose = >500 and Ketones are positive, please alert the Physician. Ordering Provider: MONICA VERDUZCO Report Released Date/Time: Aug 09, 2024 09:43 AM Reporting Lab: [address] [address] Performing Lab: [address] [address] UA COLOR Light-Brown Yellow UA APPEARANCE Turbid Clear UA GLUCOSE Normal mg/dL Negative UA KETONES NEGATIVE mg/dL Negative UA BLOOD LARGE mg/dL Negative UA PROTEIN 100 mg/dL Negative UA NITRITE NEGATIVE mg/dL Negative UA BILIRUBIN NEGATIVE mg/dL Negative UA SPECIFIC GRAVITY 1.007 L 1.016-1.022 UA pH 8.5 5.0-9.0 UA UROBILINOGEN Normal mg/dL <2.0 UA LEUKOCYTE LARGE Negative Aug 08, 2024 10:59 AM [facility] VITAMIN D 25-OH (Therapy monitor) Specimen [...] For additional information, please refer to [email or web address] [email or web address]/faq/FAQ [email or web address] (This link is being provided for informational/ educational purposes only.) This test was developed and its analytical performance characteristics have been determined by [facility] [place]. It has not been cleared or approved by the U.S. Food and Drug Administration. This assay has been validated pursuant to the CLIA regulations and is used for clinical purposes. This test was developed and its analytical performance characteristics have been determined by [facility] [place], [place]. It has not been cleared or approved by the U.S. Food and Drug Administration. This assay has been validated pursuant to the CLIA regulations and is used for clinical purposes. Test Performed by [facility], [facility], [address] [place] [address] Dov Bahena M.D., Ph.D., Director of Laboratories , CLIA [id number] TEST PERFORMED AT: , Ordering Provider: MONICA VERDUZCO Report Released Date/Time: Aug 08, 2024 10:54 AM Reporting Lab: [facility] [address] [facility] [address] Performing Lab: [facility] [address] [address] VITAMIN D, 25-OH, TOTAL 51 ng/mL 30-100 VITAMIN D, 25-OH, D3 51 ng/mL VITAMIN D, 25-OH, D2 <4 ng/mL Aug 08, 2024 10:59 AM [facility] FOLATE (WROX) Specimen Type: SERUM No comment entered. Ordering Provider: MONICA VERDUZCO Report Released Date/Time: Aug 08, 2024 10:54 AM Reporting Lab: [facility] [address] [facility] [address] Performing Lab: [facility] [address] [facility] [address] FOLATE (WROX) 4.07 ng/mL L >5.2 Aug 08, 2024 10:59 AM [facility] MICROALBUMIN CREATININE RATIO PANEL Specimen Type: URINE No comment entered. Ordering Provider: MONICA VERDUZCO Report Released Date/Time: Aug 08, 2024 10:54 AM Reporting Lab: [facility] [address] [facility] [address] Performing Lab: [facility] [address] [facility] [address] MICROALBUMIN/ CREATININE RATIO 354.2 mg/g H 0-29.9 MICROALBUMIN, QUANTITATIVE 103.3 mg/dL RR UNAVAIL CREATININE URINE 291.68 mg/dL Aug 08, 2024 10:59 AM [facility] VITAMIN B12 Specimen Type: SERUM No comment entered. Ordering Provider: MONICA VERDUZCO Report Released Date/Time: Aug 08, 2024 10:54 AM Reporting Lab: [address] [address] Performing Lab: [facility] [address] [facility] [address] VITAMIN B12 1849 pg/mL H 200-900 Aug 08, 2024 10:59 AM [facility] LIPID PANEL FASTING Specimen Type: SERUM No comment entered. Ordering Provider: MONICA VERDUZCO Report Released Date/Time: Aug 08, 2024 10:54 AM Reporting Lab: [facility] [address] [address] Performing Lab: [facility] [address] CHOLESTEROL 178 mg/dL TRIGLYCERIDE 97 mg/dL 0-150 LDL calculated 97 mg/dL 0-129 CHOL/HDL 2.9 HDL CHOLESTEROL 62 mg/dL H 40-60 Aug 08, 2024 10:59 AM [facility] BASIC METABOLIC PANEL (fasting) Specimen Type: SERUM No comment entered. Ordering Provider: MONICA VERDUZCO Report Released Date/Time: Aug 08, 2024 10:54 AM Reporting Lab: [facility] [address] Performing Lab: [facility] [address] [facility] [address] UREA NITROGEN 22 mg/dL 7-25 GLUCOSE 91 mg/dL 65-100 SODIUM 138 mmol/L 135-145 POTASSIUM 4.8 mmol/L 3.5-5.0 CHLORIDE 105 mmol/L 100-110 CO2 25 meq/L 20-30 CREATININE, Serum 0.99 mg/dL 0.50-1.40 eGFR(CKD-EPI 2020) 77 mL/min >60 Aug 08, 2024 10:59 AM [facility] HEMOGLOBIN A1C PANEL Specimen Type: BLOOD [...] Aug 08, 2024 10:54 AM Reporting Lab: [facility] [address] [facility] [address] Performing Lab: [facility] [address] [facility] [address] HEMOGLOBIN A1C 5.2 4.0-5.6 Aug 08, 2024 10:59 AM [facility] LIVER FUNCTION Specimen Type: SERUM No comment entered. Ordering Provider: MONICA VERDUZCO Report Released Date/Time: Aug 08, 2024 10:54 AM Reporting Lab: [facility] [address] [facility] [address] Performing Lab: [address] [address] PROTEIN,TOTAL 6.7 g/dL 6.0-8.3 ALBUMIN 3.4 g/dL L 3.5-5.0 ALKALINE PHOSPHATASE 151 U/L H 40-150 AST 17 U/L 5-34 ALT 8 U/L BILIRUBIN, TOTAL 0.5 mg/dL 0.2-1.2 Aug 08, 2024 10:59 AM [facility] TSH Specimen Type: SERUM No comment entered. Ordering Provider: MONICA VERDUZCO Report Released Date/Time: Aug 08, 2024 10:54 AM Reporting Lab: [facility] [address] [facility] [address] Performing Lab: [address] [address] TSH 1.93 u[IU]/mL 0.35-5.00 Aug 08, 2024 10:59 AM [facility] PSA Specimen Type: SERUM No comment entered. Ordering Provider: MONICA VERDUZCO Report Released Date/Time: Aug 08, 2024 10:54 AM Reporting Lab: [facility] [address] [facility] [address] Performing Lab: [address] [address] PSA 30.59 ng/mL H 0.00-4.00 Aug 08, 2024 10:59 AM [facility] CBC AND DIFF (AUTO) Specimen Type: BLOOD No comment entered. Ordering Provider: MONICA VERDUZCO Report Released Date/Time: Aug 08, 2024 10:54 AM Reporting Lab: [address] [address] Performing Lab: [address] [address] WBC 7.81 10*3/uL 4.50-11.00 RBC 4.88 10*6/uL [...] Apr 04, 2024 ADVANCE DIRECTIVE CHAPINCITO DEE [facility] Radiology Reports: +/- 30 days [...] the Encounter. The data comes from all [place] treatment facilities. Date/Time Radiology Report Provider Source Aug 16, 2024 02:[address] ABDOMEN AND PELVIS WITH CONTRAST: JAKE DUGAN [id number] -[id number] M Ex Date: AUG 16, 2024@14:04 Req Phys: LUBA,NOLAN Pat Loc: CWM/SO/PACT 9 (Req'g Loc) Img Loc: NHM/CT Service: Unknown [place] [facility] CLAUDIA CID [id number] (Case [id number] COMPLETE) CT ABDOMEN AND PELVIS WITH CONTRA(CT Detailed) CPT:98179 Contrast Media : Non-ionic Iodinated Reason for Study: prostate CA Clinical History: Report Status: Verified Date Reported: AUG 16, 2024 Date Verified: AUG 16, 2024 Copy Lathe Operator E-Sig: Report: CT ABDOMEN AND PELVIS WITH CONTRAST HISTORY: prostate CA COMPARISON: 03/14/2024 TECHNIQUE: CT of the abdomen and pelvis with multiplanar reformats was performed at the local [place] facility. A contrast-enhanced series was obtained in the portal venous phase. 350 images were received by the [place] [facility] ([facility]) for interpretation. RADIATION [...] tumor infiltration. READING PHYSICIAN: Kwabena Perez M.D. -[phone] 08/16/2024 20:18 [facility] [phone] (For Medical Practitioner Use Only) Attention Patients / Veterans: If you have questions or concerns about these test results, please contact your ordering provider or primary care team. Primary Diagnostic Code: POSSIBLE MALIGNANCY Primary Interpreting Staff: RADIOLOGY,OUTSIDE SERVICE, Staff Physician / RADIOLOGY,OUTSIDE SERVICE [facility] Pathology Reports: +/- 30 days of [...] the Encounter. The data comes from all [place] treatment facilities. Date/Time Pathology Report Provider Source Aug 24, 2024 11:28 AM LR MICROBIOLOGY RE PORT: Reporting Lab: [facility] [CLIA# [id number]] [address] [place] [address] Accession [UID]: [id number] [[id number]] Received: Aug 24, 2024@11:28 Collection sample: URINE CLEAN CATCH Collection date: Aug 24, 2024 11:28 Site/Specimen: URINE Provider: NOLAN VERDUZCO Comment on specimen: POSITIVE CULTURE RESULTS MAY NOT REPRESENT CLINICAL INFECTION. CONSIDER NEED FOR ANTIBIOTICS IN THE CONTEXT OF UTI SYMPTOMS. Test(s) ordered: URINE CULTURE(MWROX).......... completed: Aug 29, 2024 08:33 * BACTERIOLOGY FINAL REPORT => Aug 29, 2024 08:32 [facility] CODE: [id number] CULTURE RESULTS: 1. KLEBSIELLA OXYTOCA/RAOULTELLA ORNITHINOLYTICA - [...] Performing Laboratory: Klebsiella Oxytoca/raoultella Ornithinolytica Performed By: [facility] [CLIA# [id number]] [address] [place] [address] Pseudomonas Aeruginosa Performed By: [facility] [CLIA# [id number]] [address] [place] [address] Bact Report Remark #1 Performed By: [facility] [CLIA# [id number]] [address] [place] [address] Bact Report Remark #2 Performed By: [facility] [CLIA# [id number]] [address] [place] [address] ENRIQUETA FLORES CEASAR Encounter Notes: All associated encounter notes This section contains the clinical notes associated to the Encounter. Date/Time Encounter Note(s) Provider Source Aug 25, 2024 11:15 AM ADDENDUM: LOCAL TITLE: Addendum STANDARD TITLE: ADDENDUM DATE OF NOTE: AUG 25, 2024@11:15:12 ENTRY DATE: AUG 25, 2024@11:15:13 AUTHOR: ISABEL FREDERICK EXP COSIGNER: URGENCY: STATUS: COMPLETED Please request most recent ER visit from [facility],Thanks! /mariana/ ISABEL FREDERICK LPN LPN Signed: 08/25/2024 11:15 Receipt Acknowledged By: 08/25/2024 13:23 /mariana/ DANIELE MCINTYRE ======== --- Original Document --- 08/25/24 NURSING NOTE: came in to report to this automatic typewriter inspector he went to [facility] ER as suggested by [place] urologist for hematuria and was told he has bacteria(UTI) he was given order for ABT and was waiting for pharmacy to fill so he can start taking. While he was here request copy of progress note of the visit he has yesterday Aug 24, 2024 with Stockroom Selector to go over CT scan results also requested lab results he completed yesterday at the clinic. SURENDRA was given to the veterean to fill and records were provided to .[place] did not have any questions or concern at this time. /mariana/ ISABEL FREDERICK LPN LPN Signed: 08/25/2024 11:15 08/25/2024 ADDENDUM STATUS: COMPLETED Roadway Designer requested ED summary from [facility]. /mariana/ DANIELE MCINTYRE Signed: 08/25/2024 13:23 ISABEL FREDERICK AHSAHKA Aug 25, 2024 10:57 AM NURSING NOTE: LOCAL TITLE: NURSING NOTE STANDARD TITLE: NURSING NOTE DATE OF NOTE: AUG 25, 2024@10:57 ENTRY DATE: AUG 25, 2024@10:57:39 AUTHOR: ISABEL FREDERICK COSIGNER: URGENCY: STATUS: COMPLETED NURSING NOTE Has ADDENDA came in to report to this automatic typewriter inspector he went to [facility] ER as suggested by [place] urologist for hematuria and was told he has bacteria(UTI) he was given order for ABT and was waiting for pharmacy to fill so he can start taking. While he was here request copy of progress note of the visit he has yesterday Aug 24, 2024 with Stockroom Selector to go over CT scan results also requested lab results he completed yesterday at the clinic. SURENDRA was given to the veterean to fill and records were provided to . did not have any questions or concern at this time. /mariana/ ISABEL FREDERICK LPN LPN Signed: 08/25/2024 11:15 08/25/2024 ADDENDUM STATUS: COMPLETED Please request most recent ER visit from [facility],Thanks! /mariana/ ISABEL FREDERICK LPN LPN Signed: 08/25/2024 11:15 Receipt Acknowledged By: 08/25/2024 13:23 /mariana/ DANIELE MCINTYRE 08/25/2024 ADDENDUM STATUS: COMPLETED Roadway Designer requested ED summary from [facility]. /mariana/ DANIELE MCINTYRE Signed: 08/25/2024 13:23 ISABEL FREDERICK
--- OUTSIDE RECORDS SUMMARY | 2024-08-30 18:44 | XMS_ITS | Encounter Summary ---
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 Address [address] [place] [id number] Care Team Providers Care Consolidation Accountant Name Role Phone NOLAN VERDUZCO Primary Care [...] Patient's Relationship to Policy Segal [facility] ([facility]) MEDICARE ADVANTAGE [place] IN[place]UAL - [place] Sep 21, 2023 [id number] [phone] MARVIN DUGANI S PATIENT [facility]EMOCCASIN [facility] ([facility]) MEDICARE ADVANTAGE [facility] ([facility]) Sep 21, 2023 [id number] [phone] DUGANMARVINI S PATIENT HUSKY MEDICAID HUSKY PLAN May 22, 2022 MEDICAI D [id number] MARVIN DUGANI S PATIENT MEDICARE ([facility]) MEDICARE () PART B May 22, 2022 PART B [id number] DUGANMARVINI S PATIENT MEDICARE ([facility]) MEDICARE (M) PART A Feb 19, 2009 PART A [id number] DUGAN,GENET S PATIENT MEDICARE PART D (WNR) MEDICARE (M) PART D Jul 22, 2022 PART D [id number] [id number] [phone] GENET DUGAN S PATIENT [facility] (WNR) MEDICARE ADVANTAGE [facility] (WNR) Sep 21, 2022 [id number] GENET DUGAN S PATIENT [facility] (WNR) MEDICARE ADVANTAGE MCR (WNR) Sep 21, 2022 [id number] GENET DUGAN PATIENT Selected Encounter This section includes the information on record at [place] for the Encounter. Date/Time Encounter Type Encounter Description Reason Pro vider Source Aug 24, 2024 12:00 AM Outpatient Encounter COMMUNITY CARE [...] 02, 2025 10:00 AM AMBULATORY - MEDICINE [facility] Active, Pending, and Scheduled Orders [...] 09:40 AM Consult Order COMMUNITY CARE-UROLOGY Cons Plant Wire Chief's Choice [place] [facility] [facility] Lab Results: +/- 30 days of the encounter This section includes the Chemistry and Hematology Lab Results on record with [place] for the patient. Radiology Reports and Pathology Reports are provided separately, in subsequent sections. Lab Results This section contains the Chemistry/Hematology Results that were resulted 30 days before or 30 daysafter the date of the Encounter. Date/Time Source Result Type Result - Unit Interpretation Reference Range Comment Aug 24, 2024 11:28 AM [place] CBC AND DIFF (AUTO) Specimen Type: BLOOD No comment entered. Ordering Provider: ROWENA ROY Report Released Date/Time: Aug 24, 2024 11:07 AM Reporting Lab: [facility] [address] [facility] [address] Performing Lab: [facility] [address] [facility] [address] WBC 8.84 10*3/uL 4.50-11.00 RBC 4.72 10*6/uL [...] 10*3/uL 0.00-0.00 Aug 24, 2024 11:28 AM [facility] MICROSCOPIC AUTOMATED, URINE Specimen Type: URINE Comment: If Glucose = >500 and Ketones are positive, please alert the Physician. Ordering Provider: MONICA VERDUZCO Report Released Date/Time: Aug 09, 2024 09:43 AM Reporting Lab: [address] [address] Performing Lab: [address] [address] UA WBC 0-5 /[HPF] 0-5 UA BACTERIA 1+ /[HPF] NoneObs UA TRIPLE PHOSPHATE CRYSTALS MODERATE /[HPF] Not Established UA RBC 6-10 /[HPF] H 0-3 Aug 24, 2024 11:28 AM [facility] URINALYSIS Specimen Type: URINE Comment: If Glucose = >500 and Ketones are positive, please alert the Physician. Ordering Provider: MONICA VERDUZCO Report Released Date/Time: Aug 09, 2024 09:43 AM Reporting Lab: [address] [address] Performing Lab: [address] [address] UA COLOR Light-Brown Yellow UA APPEARANCE Turbid Clear UA GLUCOSE Normal mg/dL Negative UA KETONES NEGATIVE mg/dL Negative UA BLOOD LARGE mg/dL Negative UA PROTEIN 100 mg/dL Negative UA NITRITE NEGATIVE mg/dL Negative UA BILIRUBIN NEGATIVE mg/dL Negative UA SPECIFIC GRAVITY 1.007 L 1.016-1.022 UA pH 8.5 5.0-9.0 UA UROBILINOGEN Normal mg/dL <2.0 UA LEUKOCYTE LARGE Negative Aug 08, 2024 10:59 AM [facility] VITAMIN D 25-OH (Therapy monitor) Specimen [...] For additional information, please refer to [email or web address] [email or web address]/faq/FAQ 199 (This link is being provided for informational/ educational purposes only.) This test was developed and its analytical performance characteristics have been determined by [email or web address] [place] [place]. It has not been cleared or approved by the U.S. Food and Drug Administration. This assay has been validated pursuant to the CLIA regulations and is used for clinical purposes. This test was developed and its analytical performance characteristics have been determined by [email or web address] [place] [place] It has not been cleared or approved by the U.S. Food and Drug Administration. This assay has been validated pursuant to the CLIA regulations and is used for clinical purposes. Test Performed by [facility], [email or web address], [address] [place] [address] Dov Bahena M.D., Ph.D., Director of Laboratories , CLIA [id number] TEST PERFORMED AT: , Ordering Provider: MONICA VERDUZCO Report Released Date/Time: Aug 08, 2024 10:54 AM Reporting Lab: [facility] [address] [facility] [address] Performing Lab: [facility] [address] [address] VITAMIN D, 25-OH, TOTAL 51 ng/mL 30-100 VITAMIN D, 25-OH, D3 51 ng/mL VITAMIN D, 25-OH, D2 <4 ng/mL Aug 08, 2024 10:59 AM [facility] FOLATE (WROX) Specimen Type: SERUM No comment entered. Ordering Provider: MONICA VERDUZCO Report Released Date/Time: Aug 08, 2024 10:54 AM Reporting Lab: [facility] [address] [facility] [address] Performing Lab: [facility] [address] [facility] [address] FOLATE (WROX) 4.07 ng/mL L >5.2 Aug 08, 2024 10:59 AM [facility] MICROALBUMIN CREATININE RATIO PANEL Specimen Type: URINE No comment entered. Ordering Provider: MONICA VERDUZCO Report Released Date/Time: Aug 08, 2024 10:54 AM Reporting Lab[facility] [place] [facility] [address] [facility] [address] Performing Lab: [facility] [address] [facility] [address] MICROALBUMIN/ CREATININE RATIO 354.2 mg/g H 0-29.9 MICROALBUMIN, QUANTITATIVE 103.3 mg/dL RR UNAVAIL CREATININE URINE 291.68 mg/dL Aug 08, 2024 10:59 AM [facility] VITAMIN B12 Specimen Type: SERUM No comment entered. Ordering Provider: MONICA VERDUZCO Report Released Date/Time: Aug 08, 2024 10:54 AM Reporting Lab: [facility] [address] [facility] [address] Performing Lab: [facility]N [facility] [address] [facility] [address] VITAMIN B12 1849 pg/mL H 200-900 Aug 08, 2024 10:59 AM [facility] LIPID PANEL FASTING Specimen Type: SERUM No comment entered. Ordering Provider: MONICA VERDUZCO Report Released Date/Time: Aug 08, 2024 10:54 AM Reporting Lab: [facility] [address] [facility] [address] Performing Lab: [facility]TR[facility] [address] [facility] [address] CHOLESTEROL 178 mg/dL TRIGLYCERIDE 97 mg/dL 0-150 LDL calculated 97 mg/dL 0-129 CHOL/HDL 2.9 HDL CHOLESTEROL 62 mg/dL H 40-60 Aug 08, 2024 10:59 AM [facility] BASIC METABOLIC PANEL (fasting) Specimen Type: SERUM No comment entered. Ordering Provider: MONICA VERDUZCO Report Released Date/Time: Aug 08, 2024 10:54 AM Reporting Lab: [facility]TRN [facility]ARE[facility] [address] [address] Performing Lab: [facility] [address] [facility] [address] UREA NITROGEN 22 mg/dL 7-25 GLUCOSE 91 mg/dL 65-100 SODIUM 138 mmol/L 135-145 POTASSIUM 4.8 mmol/L 3.5-5.0 CHLORIDE 105 mmol/L 100-110 CO2 25 meq/L 20-30 CREATININE, Serum 0.99 mg/dL 0.50-1.40 eGFR(CKD-EPI 2020) 77 mL/min >60 Aug 08, 2024 10:59 AM [facility] HEMOGLOBIN A1C PANEL Specimen Type: BLOOD [...] Aug 08, 2024 10:54 AM Reporting Lab: [facility] [address] [facility] [address] Performing Lab: [facility] [address] [facility] [address] HEMOGLOBIN A1C 5.2 4.0-5.6 Aug 08, 2024 10:59 AM [facility] LIVER FUNCTION Specimen Type: SERUM No comment entered. Ordering Provider: MONICA VERDUZCO Report Released Date/Time: Aug 08, 2024 10:54 AM Reporting Lab: [facility] [address] [facility] [address] Performing Lab: [address] [address] PROTEIN,TOTAL 6.7 g/dL 6.0-8.3 ALBUMIN 3.4 g/dL L 3.5-5.0 ALKALINE PHOSPHATASE 151 U/L H 40-150 AST 17 U/L 5-34 ALT 8 U/L BILIRUBIN, TOTAL 0.5 mg/dL 0.2-1.2 Aug 08, 2024 10:59 AM [facility] TSH Specimen Type: SERUM No comment entered. Ordering Provider: MONICA VERDUZCO Report Released Date/Time: Aug 08, 2024 10:54 AM Reporting Lab: [facility] [address] [facility] [address] Performing Lab: [address] [address] TSH 1.93 u[IU]/mL 0.35-5.00 Aug 08, 2024 10:59 AM [facility] PSA Specimen Type: SERUM No comment entered. Ordering Provider: MONICA VERDUZCO Report Released Date/Time: Aug 08, 2024 10:54 AM Reporting Lab: [facility] [address] [facility] [address] Performing Lab: [address] [address] PSA 30.59 ng/mL H 0.00-4.00 Aug 08, 2024 10:59 AM [facility] CBC AND DIFF (AUTO) Specimen Type: BLOOD No comment entered. Ordering Provider: MONICA VERDUZCO Report Released Date/Time: Aug 08, 2024 10:54 AM Reporting Lab: [address] [address] Performing Lab: [address] [address] WBC 7.81 10*3/uL 4.50-11.00 RBC 4.88 10*6/uL [...] Apr 04, 2024 ADVANCE DIRECTIVE [facility] Radiology Reports: +/- 30 days of [...] the Encounter. The data comes from all [place] treatment facilities. Date/Time Radiology Report Provider Source Aug 16, 2024 02:[address] ABDOMEN AND PELVIS WITH CONTRAST: JAKE DUGAN [id number] -[id number] M Ex Date: AUG 16, 2024@14:04 Req Phys: NOLAN VERDUZCO Pat Loc: CWM/SO/PACT 9 (Req'g Loc) Img Loc: NHM/CT Service: Unknown [place] [facility] [place] [address] (Case [id number] COMPLETE) CT ABDOMEN AND PELVIS WITH CONTRA(CT Detailed) CPT:82398 Contrast Media : Non-ionic Iodinated Reason for Study: prostate CA Clinical History: Report Status: Verified Date Reported: AUG 16, 2024 Date Verified: AUG 16, 2024 Mat Repairer E-Sig: Report: CT ABDOMEN AND PELVIS WITH CONTRAST HISTORY: prostate CA COMPARISON: 03/14/2024 TECHNIQUE: CT of the abdomen and pelvis with multiplanar reformats was performed at the local [place] facility. A contrast-enhanced series was obtained in the portal venous phase. 350 images were received by the [place] National Teleradiology Program (NTP) for interpretation. RADIATION [...] tumor infiltration. READING PHYSICIAN: Kwabena Perez M.D. -[id number] 08/16/2024 20:18 [facility] National Teleradiology Program [phone] (For Medical Practitioner Use Only) Attention Patients / Veterans: If you have questions or concerns about these test results, please contact your ordering provider or primary care team. Primary Diagnostic Code: POSSIBLE MALIGNANCY Primary Interpreting Staff: RADIOLOGY,OUTSIDE SERVICE, Staff Physician / RADIOLOGY,OUTSIDE SERVICE [facility] Pathology Reports: +/- 30 days of [...] the Encounter. The data comes from all [place] treatment facilities. Date/Time Pathology Report Provider Source Aug 24, 2024 11:28 AM [place] MICROBIOLOGY RE PORT: Reporting Lab: [facility] [CLIA# [id number]] [address] [place] [address] Accession [UID]: [id number] [[id number]] Received: Aug 24, 2024@11:28 Collection sample: URINE CLEAN CATCH Collection date: Aug 24, 2024 11:28 Site/Specimen: URINE Provider: NOLAN VERDUZCO Comment on specimen: POSITIVE CULTURE RESULTS MAY NOT REPRESENT CLINICAL INFECTION. CONSIDER NEED FOR ANTIBIOTICS IN THE CONTEXT OF UTI SYMPTOMS. Test(s) ordered: URINE CULTURE(MWROX).......... completed: Aug 29, 2024 08:33 * BACTERIOLOGY FINAL REPORT => Aug 29, 2024 08:32 [facility] CODE: [id number] CULTURE RESULTS: 1. KLEBSIELLA OXYTOCA/RAOULTELLA ORNITHINOLYTICA - [...] Performing Laboratory: Klebsiella Oxytoca/raoultella Ornithinolytica Performed By: [facility] [CLIA# [id number]] [address] [place] [address] Pseudomonas Aeruginosa Performed By: [facility] [CLIA# [id number]] [address] [place] [address] Bact Report Remark #[address]: [facility] [CLIA# [id number]] [address] [place] [address] Bact Report Remark #2 Performed By: [facility] [CLIA# [id number]] [address] [place] [address] ENRIQUETA FLORES Encounter Notes: All associated encounter notes This section contains the clinical notes associated to the Encounter. Date/Time Encounter Note(s) Provider Source Aug 24, 2024 12:00 AM NONVA CONSULT: LOCAL TITLE: COMMUNITY CARE-CONSULT RESULT NOTE STANDARD TITLE: NONVA CONSULT DATE OF NOTE: AUG 24, 2024 ENTRY DATE: AUG 30, 2024@08:33:26 AUTHOR: SUNITA FITCH EXP COSIGNER: URGENCY: STATUS: COMPLETED VistA Imaging - Scanned Document SCANNED DOCUMENT SIGNATURE NOT REQUIRED Electronically Filed: 08/30/2024 by: SUNITA MCDONOUGH [facility]L [facility]
--- OUTSIDE RECORDS SUMMARY | 2024-08-30 18:44 | XMS_ITS | Encounter Summary ---
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 Organization [place] Address [address] [place] [address] Care Team Providers Care System Configuration Specialist Name Role Phone NOLAN VERDUZCO Primary Care [...] Segal's Name Patient's Relationship to Policy Segal [facility] ([facility]) MEDICARE ADVANTAGE [place] IN[place] IDUAL - [place] Sep 21, 2023 [id number] [phone] MARVIN DUGANI S PATIENT [facility] MEDICARE ADVANTAGE [facility] ([facility]) Sep 21, 2023 [id number] [phone] DUGAN,GENET S PATIENT HUSKY MEDICAID HUSKY PLAN May 22, 2022 MEDICAI D [id number] DUGAN,GENET S PATIENT MEDICARE ([facility]) MEDICARE (M) PART B May 22, 2022 PART B [id number] DUGAN,GENET S PATIENT MEDICARE ([facility]) MEDICARE (M) PART A Feb 19, 2009 PART A [id number] DUGAN,GENET S PATIENT MEDICARE PART D (WNR) MEDICARE (M) PART D Jul 22, 2022 PART D [id number] GENET DUGAN PATIENT [facility] (WNR) MEDICARE ADVANTAGE MCR (WNR) Sep 21, 2022 [id number] GENET DUGAN PATIENT [facility] (WNR) MEDICARE ADVANTAGE MCR (WNR) Sep 21, 2022 [id number] GENET DUGAN PATIENT Selected Encounter This section includes the information on record at [place] for the Encounter. Date/Time Encounter Type Encounter Description Reason Pro vider Source Jun 24, 2024 12:00 AM Outpatient Encounter EVENT (HISTORICAL) [...] 09:00 AM AMBULATORY - MEDICINE [place] [facility] [place] [facility] Aug 16, 2024 12:00 PM AMBULATORY - NONE [facility] [place] [facility] Aug 22, 2024 11:20 AM AMBULATORY - MEDICINE [place] [facility] [place] [facility] Aug 24, 2024 11:00 AM [facility] Dec 13, 2024 01:30 PM [facility] Advance Directives: All historical and current Section Date Range: From patient's date of to the date document was created. This section includes ALL of a patient's completed or amended [place] Advance and Rescinded Directives. The entries below indicate that a directive exists for the patient, but an actual copy is not included with this document. The data comes from all [facility]. Date Advance Directives Provider Source Apr 04, 2024 ADVANCE DIRECTIVE [facility] Encounter Notes: All associated encounter notes This section contains the clinical notes associated to the Encounter. Date/Time Encounter Note(s) Provider Source Jun 24, 2024 12:00 AM NONVA NOTE: LOCAL TITLE: NON-VA HOSPITALIZATIONS/ER STANDARD TITLE: NONVA NOTE DATE OF NOTE: JUN 24, 2024 ENTRY DATE: AUG 30, 2024@10:23:42 AUTHOR: ANIBAL SHEARER EXP COSIGNER: URGENCY: STATUS: COMPLETED VistA Imaging - Scanned Document SCANNED DOCUMENT SIGNATURE NOT REQUIRED Electronically Filed: 08/30/2024 by: ANIBAL SHEARER SHIPPING AND RECEIVING SPECIALIST ANIBAL SHEARER [place] [facility]
--- OUTSIDE RECORDS SUMMARY | 2024-08-30 18:44 | XMS_ITS ---
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 [place] Organization [facility] [place] Address [address] [place] [id number] Care Team Providers Care Location Worker Name Role Phone NOLAN VERDUZCO Primary [...] Segal's Name Patient's Relationship to Policy Segal [facility] ([place] MEDICARE ADVANTAGE [place] INDIV IDUAL - [place] Sep 21, 2023 [id number] [phone] MARVIN [facility]UGANI S [facility] ([place]) Sep 21, 2023 [id number] [phone] DUGANMARVINI S PATIENT [place] MEDICAID [place] PLAN May 22, 2022 MEDICAI D [id number] MARVIN DUGANI S PATIENT MEDICARE ([place]) MEDICARE () PART B May 22, 2022 PART B [id number] DUGANMARVINI S PATIENT MEDICARE ([place] MEDICARE ([place]) PART A Feb 19, 2009 PART A [id number] DUGAN,GENET S PATIENT MEDICARE PART D (W[place]) MEDICARE (M) PART D Jul 22, 2022 PART D [id number] GENET DUGAN S PATIENT [place] ([place]) MEDICARE ADVANTAGE [facility] ([place]) Sep 21, 2022 [id number] GENET DUGAN S PATIENT [place] ([place]) MEDICARE ADVANTAGE [facility] (WNR) Sep 21, 2022 [id number] [phone] GENET DUGAN PATIENT Selected Encounter This section includes the information on record at [place] for the Encounter. Date/Time Encounter Type Encounter Description Reason Pro vider Source Jul 29, 2024 12:00 AM Outpatient Encounter COMMUNITY CARE CONSULT IHE Encounter Template Text not used by [place] Plan of Treatment: Future Appointments (+ 6 months) and Future Tests (+/- 45 days) The Plan of Treatment section includes future care activities for the patient from all [place] treatmentfacilities. This section includes future appointments and future orders which are active, pending or scheduled. Future Appointments This section includes appointments that were scheduled to occur 6 months from the date of the Encounter, up to a maximum of 20 appointments. The data comes from all [place] treatment facilities. Appointment Date/Time Appointment Type Appointme nt Facility Name Aug 09, 2024 09:00 AM AMBULATORY - MEDICINE [facility] [place] [facility] Aug 16, 2024 12:00 PM AMBULATORY - [facility] [place] [place] [facility] Aug 22, 2024 11:20 AM AMBULATORY - MEDICINE [place] [facility] [place] [facility] Aug 24, 2024 11:00 AM [facility] Dec 13, 2024 01:30 PM AMBULATORY - MEDICINE [facility] Jan 02, 2025 10:00 AM [facility] Active, Pending, and Scheduled Orders This section includes a listing of several types of active, pending, and scheduled orders, including clinic medications orders, diagnostic test orders, procedure orders and consult orders; where the start date of the order is 45 days before the date of the Encounter or 45 days after the date of theEncounter. The data comes from all [place] treatment [facility]. Test Date/Time Test Type Test Details Facility Name Aug 09, 2024 09:40 AM Consult Order COMMUNITY CARE-UROLOGY Cons Assistant Elementary Teacher's Choice [facility] Lab Results: +/- 30 days of the encounter This section includes the Chemistry and Hematology Lab Results on record with [place] for the patient. Radiology Reports and Pathology Reports are provided separately, in subsequent sections. Lab Results This section contains the Chemistry/Hematology Results that were resulted 30 days before or 30 daysafter the date of the Encounter. Date/Time Source Result Type Result - Unit Interpretation Reference Range Comment Aug 24, 2024 11:28 AM [facility] CBC AND DIFF (AUTO) Specimen Type: BLOOD No comment entered. Ordering Provider: ROWENA ROY Report Released Date/Time: Aug 24, 2024 11:07 AM Reporting Lab: [facility] [address] [address] Performing Lab: [facility] [address] [address] WBC 8.84 10*3/uL 4.50-11.00 RBC 4.72 10*6/uL [...] 10*3/uL 0.00-0.00 Aug 24, 2024 11:28 AM [facility] MICROSCOPIC AUTOMATED, URINE Specimen Type: URINE Comment: If Glucose = >500 and Ketones are positive, please alert the Physician. Ordering Provider: MONICA VERDUZCO Report Released Date/Time: Aug 09, 2024 09:43 AM Reporting Lab: [address] [address] Performing Lab: [address] [address] UA WBC 0-5 /[HPF] 0-5 UA BACTERIA 1+ /[HPF] NoneObs UA TRIPLE PHOSPHATE CRYSTALS MODERATE /[HPF] Not Established UA RBC 6-10 /[HPF] H 0-3 Aug 24, 2024 11:28 AM [facility] URINALYSIS Specimen Type: URINE Comment: If Glucose = >500 and Ketones are positive, please alert the Physician. Ordering Provider: MONICA VERDUZCO Report Released Date/Time: Aug 09, 2024 09:43 AM Reporting Lab: [address] [address] Performing Lab: [address] [address] UA COLOR Light-Brown Yellow UA APPEARANCE Turbid Clear UA GLUCOSE Normal mg/dL Negative UA KETONES NEGATIVE mg/dL Negative UA BLOOD LARGE mg/dL Negative UA PROTEIN 100 mg/dL Negative UA NITRITE NEGATIVE mg/dL Negative UA BILIRUBIN NEGATIVE mg/dL Negative UA SPECIFIC GRAVITY 1.007 L 1.016-1.022 UA pH 8.5 5.0-9.0 UA UROBILINOGEN Normal mg/dL <2.0 UA LEUKOCYTE LARGE Negative Aug 08, 2024 10:59 AM [facility] VITAMIN D 25-OH (Therapy monitor) Specimen [...] For additional information, please refer to [email or web address] [email or web address] (This link is being provided for informational/ educational purposes only.) This test was developed and its analytical performance characteristics have been determined by [place], [place]. It has not been cleared or approved by the U.S. Food and Drug Administration. This assay has been validated pursuant to the CLIA regulations and is used for clinical purposes. This test was developed and its analytical performance characteristics have been determined by [place]. It has not been cleared or approved by the U.S. Food and Drug Administration. This assay has been validated pursuant to the CLIA regulations and is used for clinical purposes. Test Performed by [facility], [place] [facility], [address] [place] [address] Dov Bahena M.D., Ph.D., Director of Laboratories , CLIA [id number] TEST PERFORMED AT: , Ordering Provider: MONICA VERDUZCO Report Released Date/Time: Aug 08, 2024 10:54 AM Reporting Lab: [facility] [address] [address] Performing Lab: [facility] [address] [address] VITAMIN D, 25-OH, TOTAL 51 ng/mL 30-100 VITAMIN D, 25-OH, D3 51 ng/mL VITAMIN D, 25-OH, D2 <4 ng/mL Aug 08, 2024 10:59 AM [facility] FOLATE (WROX) Specimen Type: SERUM No comment entered. Ordering Provider: MONICA VERDUZCO Report Released Date/Time: Aug 08, 2024 10:54 AM Reporting Lab: [facility] [address] [address] Performing Lab: [facility] [address] [facility] [address] FOLATE (WROX) 4.07 ng/mL L >5.2 Aug 08, 2024 10:59 AM [facility] MICROALBUMIN CREATININE RATIO PANEL Specimen Type: URINE No comment entered. Ordering Provider: MONICA VERDUZCO Report Released Date/Time: Aug 08, 2024 10:54 AM Reporting Lab: [facility] [address] [address] Performing Lab: [facility] [address] [address] MICROALBUMIN/ CREATININE RATIO 354.2 mg/g H 0-29.9 MICROALBUMIN, QUANTITATIVE 103.3 mg/dL RR UNAVAIL CREATININE URINE 291.68 mg/dL Aug 08, 2024 10:59 AM [facility] VITAMIN B12 Specimen Type: SERUM No comment entered. Ordering Provider: MONICA VERDUZCO Report Released Date/Time: Aug 08, 2024 10:54 AM Reporting Lab: [facility] [address] [address] Performing Lab: [facility] [address] [address] VITAMIN B12 1849 pg/mL H 200-900 Aug 08, 2024 10:59 AM [facility] LIPID PANEL FASTING Specimen Type: SERUM No comment entered. Ordering Provider: MONICA VERDUZCO Report Released Date/Time: Aug 08, 2024 10:54 AM Reporting Lab: [facility] [address] [address] Performing Lab: [facility]ENTERUSE[address] [address] CHOLESTEROL 178 mg/dL TRIGLYCERIDE 97 mg/dL 0-150 LDL calculated 97 mg/dL 0-129 CHOL/HDL 2.9 HDL CHOLESTEROL 62 mg/dL H 40-60 Aug 08, 2024 10:59 AM [facility] BASIC METABOLIC PANEL (fasting) Specimen Type: SERUM No comment entered. Ordering Provider: MONICA VERDUZCO Report Released Date/Time: Aug 08, 2024 10:54 AM Reporting Lab: [facility] [address] [address] Performing Lab: [facility] [address] [address] UREA NITROGEN 22 mg/dL 7-25 GLUCOSE 91 mg/dL 65-100 SODIUM 138 mmol/L 135-145 POTASSIUM 4.8 mmol/L 3.5-5.0 CHLORIDE 105 mmol/L 100-110 CO2 25 meq/L 20-30 CREATININE, Serum 0.99 mg/dL 0.50-1.40 eGFR(CKD-EPI 2020) 77 mL/min >60 Aug 08, 2024 10:59 AM [facility] HEMOGLOBIN A1C PANEL Specimen Type: BLOOD [...] Aug 08, 2024 10:54 AM Reporting Lab: [facility] [address] [address] Performing Lab: [address] [address] HEMOGLOBIN A1C 5.2 4.0-5.6 Aug 08, 2024 10:59 AM [facility] LIVER FUNCTION Specimen Type: SERUM No comment entered. Ordering Provider: MONICA VERDUZCO Report Released Date/Time: Aug 08, 2024 10:54 AM Reporting Lab: [facility] [address] [address] Performing Lab: [address] [address] PROTEIN,TOTAL 6.7 g/dL 6.0-8.3 ALBUMIN 3.4 g/dL L 3.5-5.0 ALKALINE PHOSPHATASE 151 U/L H 40-150 AST 17 U/L 5-34 ALT 8 U/L BILIRUBIN, TOTAL 0.5 mg/dL 0.2-1.2 Aug 08, 2024 10:59 AM [facility] TSH Specimen Type: SERUM No comment entered. Ordering Provider: MONICA VERDUZCO Report Released Date/Time: Aug 08, 2024 10:54 AM Reporting Lab: [place] [facility] [place] [facility] [address] [address] Performing Lab: [place] CN[facility] TRN [facility] [address] [address] TSH 1.93 u[IU]/mL 0.35-5.00 Aug 08, 2024 10:59 AM [facility] PSA Specimen Type: SERUM No comment entered. Ordering Provider: MONICA VERDUZCO Report Released Date/Time: Aug 08, 2024 10:54 AM Reporting Lab: [facility]ENTER[facility]ETS [facility] [address] [address] Performing Lab: [facility]ENTERUSETS [address] [address] PSA 30.59 ng/mL H 0.00-4.00 Aug 08, 2024 10:59 AM [facility] CBC AND DIFF (AUTO) Specimen Type: BLOOD No comment entered. Ordering Provider: MONICA VERDUZCO Report Released Date/Time: Aug 08, 2024 10:54 AM Reporting Lab: [facility]ENTER[facility]ETS [address] [address] Performing Lab: [facility]ITALRSOUTHEAST HEALTH MEDICAL CENTERTRN [facility]ENTERUSETS [address] [address] WBC 7.81 10*3/uL 4.50-11.00 RBC 4.88 10*6/uL [...] ALL of a patient's completed or amended [place] Advance and Rescinded Directives. The entries below indicate that a directive exists for the patient, but an actual copy is not included with this document. The data comes from all [place] facilities. Date Advance Directives Provider Source Apr 04, [address] [facility] Radiology Reports: +/- 30 days of [...] the Encounter. The data comes from all [place] treatment facilities. Date/Time Radiology Report Provider Source Aug 16, 2024 02:[address] ABDOMEN AND PELVIS WITH CONTRAST: JAKE DUGAN [id number] -[id number] M Exm Date: AUG 16, 2024@14:04 Req Phys: NOLAN VERDUZCO Pat Loc: [facility]/SO/PACT 9 (Req'g Loc) Img Loc: [facility]/CT Service: Unknown [facility] [place] [address] (Case [id number] COMPLETE) CT ABDOMEN AND PELVIS WITH CONTRA(CT Detailed) CPT:13998 Contrast Media : Non-ionic Iodinated Reason for Study: prostate CA Clinical History: Report Status: Verified Date Reported: AUG 16, 2024 Date Verified: AUG 16, 2024 Tool Room Supervisor E-Sig: Report: CT ABDOMEN AND PELVIS WITH CONTRAST HISTORY: prostate CA COMPARISON: 03/14/2024 TECHNIQUE: CT of the abdomen and pelvis with multiplanar reformats was performed at the local [place] facility. A contrast-enhanced series was obtained in the portal venous phase. 350 images were received by the [place] National Teleradiology Program (NTP) for interpretation. RADIATION [...] tumor infiltration. READING PHYSICIAN: Kwabena Perez M.D. [id number] 08/16/2024 20:18 [facility] National Teleradiology Program [phone] (For Medical Practitioner Use Only) Attention Patients / Veterans: If you have questions or concerns about these test results, please contact your ordering provider or primary care team. Primary Diagnostic Code: POSSIBLE MALIGNANCY Primary Interpreting Staff: RADIOLOGY,OUTSIDE SERVICE, Staff Physician / RADIOLOGY,OUTSIDE SERVICE [facility] Pathology Reports: +/- 30 days of [...] the Encounter. The data comes from all [place] treatment facilities. Date/Time Pathology Report Provider Source Aug 24, 2024 11:28 AM LR MICROBIOLOGY RE PORT: Reporting Lab: [facility] [CLIA# [id number]] [address] [place] [address] Accession [UID]: [id number] [[id number]] Received: Aug 24, 2024@11:28 Collection sample: URINE CLEAN CATCH Collection date: Aug 24, 2024 11:28 Site/Specimen: URINE Provider: NOLAN VERDUZCO Comment on specimen: POSITIVE CULTURE RESULTS MAY NOT REPRESENT CLINICAL INFECTION. CONSIDER NEED FOR ANTIBIOTICS IN THE CONTEXT OF UTI SYMPTOMS. Test(s) ordered: URINE CULTURE(MWROX).......... completed: Aug 29, 2024 08:33 * BACTERIOLOGY FINAL REPORT => Aug 29, 2024 08:32 TECH CODE: [id number] CULTURE RESULTS: 1. KLEBSIELLA OXYTOCA/RAOULTELLA ORNITHINOLYTICA - [...] Performing Laboratory: Klebsiella Oxytoca/raoultella Ornithinolytica Performed By: [facility] [CLIA# [id number]] [address] [place] [address] Pseudomonas Aeruginosa Performed By: [facility] [CLIA# [id number]] [address] [place] [address] Bact Report Remark #1 Performed By: [facility] [CLIA# [id number]] [address] [place] [address] Bact Report Remark #2 Performed By: [facility] [CLIA# [id number]] [address] [place] [address] ENRIQUETA FLORES [facility] Encounter Notes: All associated encounter notes This section contains the clinical notes associated to the Encounter. Date/Time Encounter Note(s) Provider Source Jul 29, 2024 12:00 AM NONVA CONSULT: LOCAL TITLE: COMMUNITY CARE-CONSULT RESULT NOTE STANDARD TITLE: NONVA CONSULT DATE OF NOTE: JUL 29, 2024 ENTRY DATE: AUG 30, 2024@12:14:10 AUTHOR: MG PINEDA COSIGNER: URGENCY: STATUS: COMPLETED VistA Imaging - Scanned Document SCANNED DOCUMENT SIGNATURE NOT REQUIRED Electronically Filed: 08/30/2024 by: MG AYON [facility]
--- OUTSIDE RECORDS SUMMARY | 2024-08-30 22:14 | XMS_ITS | Continuity of Care Document ---
Author Name [facility] Organization [facility] Care Team Providers Care Chemist Name Role Phone [facility] Unavailable Unavailable Problems Combined list of problems from Department of Defense and Veterans Affairs facilities. It does not include entries that were removed or entered in error. Problem Status Onset Date Problem Type Date of Resolution Comments Source Atypical chest pain Active Condition February 12, 2016 Entered By: ALICIA MACHADO Comment: [facility] [phone] PA OV 12-05-15May 2015 Entered By: ALICIA [...] 11 16 Entered By: ALICIA MACHADO Comment: [facility] [phone] PA OV 12-05-15 [facility] Essential hypertension Active Condition February 12, 2016 Entered By: ALICIA MACHADO Comment: [facility] [phone] PA OV 12-05-15 [facility] Olecranon bursitis Active Condition [place] Osteoarthritis (SNOMED CT 166907639) Active Condition Dec 07, 2017 Entered By: ALICIA MACHADO Comment: C/S worst at C6-C7 2017 Entered By: ALICIA MACHADO Comment: mod OA Interphalamgeal joint right thumb 09/06 [facility] Paraesthesia of lower extremity (SNOMED CT 079914773) Active Condition Apr 23, 2021 Entered By: [...] 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, unspecified Active Diagnosis [place] Diagnosis: ICD-10-CM L82.1 Other seborrheic keratosis Active Diagnosis [facility] Diagnosis: ICD-10-CM Z13.89 Encounter for screening for other disorder Active Diagnosis [place] Diagnosis: ICD-10-CM L02.818 Cutaneous abscess of other sites Active Diagnosis [facility] Diagnosis: ICD-10-CM L02.212 Cutaneous abscess of back [any part, except buttock] Active Diagnosis [place] Diagnosis: ICD-10-CM W06.XXXA Fall from bed, initial encounter Active Diagnosis [place] Diagnosis: ICD-10-CM H40.013 Open angle with borderline findings, low risk, bilateral Active Diagnosis [facility] Diagnosis: ICD-10-CM R97.20 Elevated prostate specific antigen [PSA] Active Diagnosis [place] Diagnosis: ICD-10-CM I10 Essential (primary) hypertension Active Diagnosis [place] Diagnosis: ICD-10-CM M54.59 Other low back pain Active Diagnosis [facility] Diagnosis: ICD-10-CM C61 Malignant neoplasm of prostate Active Diagnosis [facility] Diagnosis: ICD-10-CM 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 [place] Diagnosis: ICD-10-CM Z59.00 Homelessness unspecified Active Diagnosis [place] Diagnosis: ICD-10-CM Z00.01 Encounter for general adult medical exam w abnormal findings Active Diagnosis [facility] Diagnosis: ICD-10-CM R68.89 Other general symptoms and signs Active Diagnosis [facility] Diagnosis: ICD-10-CM R20.2 Paresthesia of skin Active Diagnosis [place] Diagnosis: ICD-10-CM M54.50 Low back pain, unspecified Active Diagnosis [place] Medications Combined list of outpatient medications from [...] 6 HOURS NEEDED FOR PAIN ORAL 03/27/2024 [id number] Zoe MCLAIN 2023 100 [place] CAPSAICIN 0.025% CREAM,TOP APPLY A MODERATE AMOUNT TOPICALL Y FOUR TIMES A DAY FOR LOCALIZE D PAIN (USE FOR AT LEAST 4 WEEKS FOR EFFECT) TOPICA L ACTIVE 12/22/2024 [id number] 4 VINICIO VERDUZCOANDREEA O 2023 60 [place] CARBOXYMETH YLCELLULOSE NA 0.5% SOLN,OPH INSTILL 1 DROP INTO EACH EYE FOUR TIMES DAILY NEEDED FOR DRY EYE OPHTHA LMIC DISCONT INUED BY PROVIDE R 12/23/2023 [id number] 4 MERHAR,NO AH B 2022 45 [facility] CARBOXYMETH YLCELLULOSE NA 1% GEL,OPH APPLY 1 DROP INTO EACH EYE FOUR TIMES DAILY NEEDED FOR DRY EYE OPHTHA LMIC ACTIVE 12/31/2024 [id number] 4 MERSIENNA,NO AH B 2023 15 [facility] CEFUROXIME AXETIL 500MG TAB TAKE ONE TABLET BY MOUTH TWICE DAILY ORAL 03/23/2024 [id number] 4 PINKY HERRERA 2023 14 [place] CHOLECALCIF ELMA 10MCG (400UNIT) TAB TAKE ONE TABLET BY MOUTH ONCE DAILY FOR VITAMIN SUPPLEME NTATION ORAL ACTIVE 11/22/2024 [id number] 4 Mahnaz ROY AVID A 2023 90 [place] CIPROFLOXAC IN HCL 500MG TAB TAKE ONE TABLET BY MOUTH TWICE DAILY FOR 7 DAYS FOR INFECTIO N ORAL ACTIVE 09/24/2024 [id number] 4 TAWANA BRANDON SOOR 2023 14 [place] CYANOCOBALA MIN 250MCG TAB TAKE ONE TABLET BY MOUTH ONCE DAILY ORAL ACTIVE 08/25/2025 [id number] 4 Mahnaz ROY AVID A 2023 100 [place] CYCLOSPORIN E 0.05% (PF) EMULSION,OP H,0.4ML INSTILL 1 DROP INTO EACH EYE TWICE DAILY FOR DRY EYE THIS REPLACES XIIDRA OPHTHA LMIC ACTIVE 03/22/2025 [id number] 4 MERHAR,NO AH B 2023 60 [place] FINASTERIDE 5MG TAB TAKE ONE TABLET BY MOUTH ONCE DAILY FOR ENLARGED PROSTATE ORAL ACTIVE 04/01/2025 [id number] 4 LUBA, APOLINARI O 2023 90 [place] FLUTICASONE PROPIONATE 50MCG/SPRAY SOLN,NASAL, 16GM INSTILL 1 SPRAY INTO EACH NOSTRIL TWICE DAILY NASAL ACTIVE RAYRAY APRIL THAPAKYE [place] 2015 [place] FOLIC ACID 1MG TAB TAKE ONE TABLET BY MOUTH ONCE DAILY FOR INADEQUA TE FOLIC ACID VITAMIN/ NUTRITIO N SUPPLEME NT ORAL 06/25/2024 [id number] 3 LUBA, APOLINARI O 2022 90 [place] KETOTIFEN 0.025% SOLN,OPH INSTILL 1 DROP INTO EACH EYE TWICE DAILY (IF YOU WEAR CONTACT LENSES, WAIT 10 MINUTES BEFORE INSERTIN G LENSES) OPHTHA LMIC ACTIVE 12/04/2024 [id number] 4 JEWEL,NO AH B 2023 15 [facility] KETOTIFEN 0.025% SOLN,OPH INSTILL 1 DROP INTO EACH EYE TWICE DAILY (IF YOU WEAR CONTACT LENSES, WAIT 10 MINUTES BEFORE INSERTIN G LENSES) OPHTHA LMIC DISCONT INUED 11/01/2023 [id number] 3 HCANTEL BRYANT 2022 15 [place] LIFITEGRAST 5% SOLN,OPH,0. 2ML INSTILL 1 DROP INTO EACH EYE TWICE DAILY OPHTHA LMIC DISCONT INUED BY PROVIDE R 12/31/2024 [id number] 4 JEWEL,NO AH B 2023 60 [facility] LIFITEGRAST 5% SOLN,OPH,0. 2ML INSTILL 1 DROP INTO EACH EYE TWICE DAILY OPHTHA LMIC DISCONT INUED 11/01/2023 [id number] 3 CHANTEL BRYANT 2022 60 [place] LISINOPRIL 20MG TAB TAKE ONE TABLET BY MOUTH ONCE DAILY TO CONTROL BLOOD PRESSURE ORAL ACTIVE 12/04/2024 [id number] 4 LUBA MANSOOR O 2023 90 [place] Allergies, Adverse Reactions, Alerts Combined list of allergies from Department of Defense and Veterans Affairs facilities. It does not include entries that were removed or entered in error. Substance Category Reaction Severity Reaction type Status Date Reported Comments Source HCTZ HYDROCHLOROT HIAZIDE Propensity to adverse reactions to drug (finding) Xerostomia active 8 [facility] Immunizations Combined list of available immunizations from the Department of Defense and Veterans Affairs facilities. Immunization Series Date Given Administered By Site Reaction Lot Number CVX Code Drug Rice Cleaning Machine Tender Status Comments Source INFLUENZA, HIGH-DOSE, TRIVALENT, PF 2023 NIK BRANDON H LEFT DELTO ID [id number] 135 complet ed [place] HEP A, ADULT 2 2023 PAOLA FREDERICK LEFT DELTO ID [id number] 52 complet ed [place] COVID-19 (MODERNA), MRNA, LNP-S, PF, 50 MCG/0.5 ML (AGES 12+ YEARS) 2022 PAOLA FREDERICK LEFT DELTO ID [id number] 312 complet ed [place] HEP A, ADULT 1 2022 PAOLA FREDERICK RIGHT DELTO ID [id number] 52 complet ed [place] INFLUENZA, HIGH-DOSE, QUADRIVALENT 2022 PAOLA FREDERICK LEFT DELTO ID [id number] 197 complet ed [place] INFLUENZA, INJECTABLE, QUADRIVALENT, PRESERVATIVE FREE 2022 PAOLA FREDERICK DY LEFT DELTO ID [id number] 150 complet ed [place] COVID-19 (MODERNA), MRNA, LNP-S, PF, 100 MCG/0.5ML DOSE OR 50 MCG/0.25ML DOSE 2021 207 complet ed [facility] ZOSTER RECOMBINANT 2 2021 187 complet ed [place] INFLUENZA, UNSPECIFIED FORMULATION 2020 88 complet ed [facility] ZOSTER RECOMBINANT [...] DOSE 1 2020 207 complet ed MOD; [id number]; 1 [facility] [...] Aug 24, 2024 11:07 AM Reporting Lab: [facility] [address] [address] Performing Lab: [facility] [address] [address] [place] CBC AND DIFF (AUTO) ERYTHROCYT ES [#/VOLUME] IN BLOOD BY AUTOMATED COUNT 4.72 10*6/uL 4.23 - 5.66 08/24 Specimen Type: BLOOD No comment entered. Ordering Provider: DANISHA ROY A Report Released Date/Time: Aug 24, 2024 11:07 AM Reporting Lab: [facility] TRN [address] [address] Performing Lab: [facility] [address] [address] [place] CBC AND DIFF (AUTO) HEMOGLOBIN [MASS/VOLU ME] IN BLOOD 12.8 g/dL 12.8 - 17 08/24 Specimen Type: BLOOD No comment entered. Ordering Provider: DANISHA ROY A Report Released Date/Time: Aug 24, 2024 11:07 AM Reporting Lab: [facility] [address] [address] Performing Lab: [facility] [address] [address] [place] CBC AND DIFF (AUTO) HEMATOCRIT [VOLUME FRACTION] OF BLOOD BY AUTOMATED COUNT 38.8 39.2 - 50.4 08/24 L Specimen Type: BLOOD No comment entered. Ordering Provider: DANISHA ROY A Report Released Date/Time: Aug 24, 2024 11:07 AM Reporting Lab: [facility] [address] Performing Lab: [facility] [address] [address] [place] CBC AND DIFF (AUTO) MCV [ENTITIC VOLUME] BY AUTOMATED COUNT 82.2 fL 82 - 99 08/24 Specimen Type: BLOOD No comment entered. Ordering Provider: DANISHA ROY A Report Released Date/Time: Aug 24, 2024 11:07 AM Reporting Lab: [place] [facility] [address] [address] Performing Lab: [facility] [address] [address] [place] CBC AND DIFF (AUTO) MCHC [MASS/VOLU ME] BY AUTOMATED COUNT 33.0 g/dL 30.8 - 35.1 08/24 Specimen Type: BLOOD No comment entered. Ordering Provider: DANISHA ROY A Report Released Date/Time: Aug 24, 2024 11:07 AM Reporting Lab: [facility] [address] [address] Performing Lab: [facility] TRN [address] [address] [place] CBC AND DIFF (AUTO) PLATELETS [#/VOLUME] IN BLOOD BY AUTOMATED COUNT 312 10*3/uL 140 - 360 08/24 Specimen Type: BLOOD No comment entered. Ordering Provider: DANISHA ROY A Report Released Date/Time: Aug 24, 2024 11:07 AM Reporting Lab: [facility] [address] [address] Performing Lab: [facility] [address] [place] CBC AND DIFF (AUTO) ERYTHROCYT E DISTRIBUTI ON WIDTH [RATIO] BY AUTOMATED COUNT 12.3 12.0 - 16.0 08/24 Specimen Type: BLOOD No comment entered. Ordering Provider: DANISHA ROY A Report Released Date/Time: Aug 24, 2024 11:07 AM Reporting Lab: [place] [facility] [address] [address] Performing Lab: [place] [facility] [address] [address] [place] CBC AND DIFF (AUTO) MONOCYTES [#/VOLUME] IN BLOOD BY AUTOMATED COUNT 0.39 10*3/uL 0.30 - 1.10 08/24 Specimen Type: BLOOD No comment entered. Ordering Provider: DANISHA ROY A Report Released Date/Time: Aug 24, 2024 11:07 AM Reporting Lab: [facility] [place] [facility] [address] [address] Performing Lab: [facility] [place] [facility] [address] [address] [place] CBC AND DIFF (AUTO) MCH [ENTITIC MASS] BY AUTOMATED COUNT 27.1 pg 26.2 - 32.6 08/24 Specimen Type: BLOOD No comment entered. Ordering Provider: DANISHA ROY A Report Released Date/Time: Aug 24, 2024 11:07 AM Reporting Lab: [facility] [place] [facility] [address] [address] Performing Lab: [facility] [address] [address] [place] CBC AND DIFF (AUTO) NEUTROPHIL S/100 LEUKOCYTES IN BLOOD BY AUTOMATED COUNT 80.9 43.7 - 75.8 08/24 H Specimen Type: BLOOD No comment entered. Ordering Provider: DANISHA ROY A Report Released Date/Time: Aug 24, 2024 11:07 AM Reporting Lab: [facility] [place] [address] [address] Performing Lab: [facility] [place] [address] [address] [place] CBC AND DIFF (AUTO) LYMPHOCYTE S/100 LEUKOCYTES IN BLOOD BY AUTOMATED COUNT 12.2 14.0 - 42.3 08/24 L Specimen Type: BLOOD No comment entered. Ordering Provider: DANISHA ROY A Report Released Date/Time: Aug 24, 2024 11:07 AM Reporting Lab: [facility] [place] [address] [address] Performing Lab: [facility] [place] [address] [address] [place] CBC AND DIFF (AUTO) MONOCYTES/ 100 LEUKOCYTES IN BLOOD BY AUTOMATED COUNT 4.4 5.1 - 13.7 08/24 L Specimen Type: BLOOD No comment entered. Ordering Provider: DANISHA ROY A Report Released Date/Time: Aug 24, 2024 11:07 AM Reporting Lab: [facility] [address] [address] Performing Lab: [facility] [address] [address] [place] CBC AND DIFF (AUTO) EOSINOPHIL S/100 LEUKOCYTES IN BLOOD BY AUTOMATED COUNT 1.6 0.4 - 6.8 08/24 Specimen Type: BLOOD No comment entered. Ordering Provider: DANISHA ROY A Report Released Date/Time: Aug 24, 2024 11:07 AM Reporting Lab: [facility] [address] [address] Performing Lab: [place] [facility] [address] [address] [place] CBC AND DIFF (AUTO) BASOPHILS/ 100 LEUKOCYTES IN BLOOD BY AUTOMATED COUNT 0.7 0.1 - 2.0 08/24 Specimen Type: BLOOD No comment entered. Ordering Provider: DANISHA ROY A Report Released Date/Time: Aug 24, 2024 11:07 AM Reporting Lab: [facility] [address] [address] Performing Lab: [place] [facility] [address] [address] [place] CBC AND DIFF (AUTO) NEUTROPHIL S [#/VOLUME] IN BLOOD BY AUTOMATED COUNT 7.15 10*3/uL 2.20 - 7.60 08/24 Specimen Type: BLOOD No comment entered. Ordering Provider: DANISHA ROY A Report Released Date/Time: Aug 24, 2024 11:07 AM Reporting Lab: [facility] [address] [address] Performing Lab: [facility] [address] [address] [place] CBC AND DIFF (AUTO) LYMPHOCYTE S [#/VOLUME] IN BLOOD BY AUTOMATED COUNT 1.08 10*3/uL 1.00 - 3.20 08/24 Specimen Type: BLOOD No comment entered. Ordering Provider: DANISHA ROY A Report Released Date/Time: Aug 24, 2024 11:07 AM Reporting Lab: [facility] [address] [address] Performing Lab: [facility] [address] [address] [place] CBC AND DIFF (AUTO) EOSINOPHIL S [#/VOLUME] IN BLOOD BY AUTOMATED COUNT 0.14 10*3/uL 0.03 - 0.44 08/24 Specimen Type: BLOOD No comment entered. Ordering Provider: DANISHA ROY A Report Released Date/Time: Aug 24, 2024 11:07 AM Reporting Lab: [place] [facility] [address] [address] Performing Lab: [place] [facility] [address] [place] CBC AND DIFF (AUTO) BASOPHILS [#/VOLUME] IN BLOOD BY AUTOMATED COUNT 0.06 10*3/uL 0.01 - 0.13 08/24 Specimen Type: BLOOD No comment entered. Ordering Provider: DANISHA ROY A Report Released Date/Time: Aug 24, 2024 11:07 AM Reporting Lab: [facility] [address] Performing Lab: [place] [facility] [address] [address] [place] CBC AND DIFF (AUTO) IMMATURE GRANULOCYT ES/100 LEUKOCYTES IN BLOOD BY AUTOMATED COUNT 0.2 0.0 - 0.7 08/24 Specimen Type: BLOOD No comment entered. Ordering Provider: DANISHA ROY A Report Released Date/Time: Aug 24, 2024 11:07 AM Reporting Lab: [place] [facility] [address] [address] Performing Lab: [facility] [address] [place] CBC AND DIFF (AUTO) IMMATURE GRANULOCYT ES [#/VOLUME] IN BLOOD 0.02 10*3/uL 0.00 - 0.06 08/24 Specimen Type: BLOOD No comment entered. Ordering Provider: DANISHA ROY A Report Released Date/Time: Aug 24, 2024 11:07 AM Reporting Lab: [facility] [address] Performing Lab: [facility] [address] [place] CBC AND DIFF (AUTO) NRBC % 0.0 0.0 - 0.0 08/24 Specimen Type: BLOOD No comment entered. Ordering Provider: DANISHA ROY A Report Released Date/Time: Aug 24, 2024 11:07 AM Reporting Lab: [facility] [address] Performing Lab: [facility] [address] [place] CBC AND DIFF (AUTO) NRBC, ABS 0.00 10*3/uL 0.00 - 0.00 08/24 Specimen Type: BLOOD No comment entered. Ordering Provider: DANISHA ROY A Report Released Date/Time: Aug 24, 2024 11:07 AM Reporting Lab: [facility] [address] Performing Lab: [facility] [address] [place] MICROSCOP IC AUTOMATED , URINE LEUKOCYTES [#/AREA] IN URINE SEDIMENT BY MICROSCOPY HIGH POWER FIELD 0-5/[HP F] 0 - 5 08/24 Specimen Type: URINE Comment: If Glucose = >500 and Ketones are positive, please alert the Physician. Ordering Provider: ZAKI VERDUZCO Report Released Date/Time: Aug 09, 2024 09:43 AM Reporting Lab: [facility] [address] Performing Lab: [facility] [address] [facility]ITALUSE [facility] MICROSCOP IC AUTOMATED , URINE BACTERIA [#/AREA] IN URINE SEDIMENT BY MICROSCOPY HIGH POWER FIELD 1+/[HPF ] 08/24 Specimen Type: URINE Comment: If Glucose = >500 and Ketones are positive, please alert the Physician. Ordering Provider: ZAKI VERDUZCO Report Released Date/Time: Aug 09, 2024 09:43 AM Reporting Lab: [facility]USE[facility] [address] [address] Performing Lab: [facility] [address] [address] [facility]ITALUSE [facility] MICROSCOP IC AUTOMATED , URINE TRIPLE PHOSPHATE CRYSTALS [PRESENCE] IN URINE SEDIMENT BY LIGHT MICROSCOPY MODERAT E/[HPF] 08/24 Specimen Type: URINE Comment: If Glucose = >500 and Ketones are positive, please alert the Physician. Ordering Provider: ZAKI VERDUZCO Report Released Date/Time: Aug 09, 2024 09:43 AM Reporting Lab: [facility] [address] [address] Performing Lab: [facility]USE[facility] [address] [address] [facility] MICROSCOP IC AUTOMATED , URINE ERYTHROCYT ES [#/AREA] IN URINE SEDIMENT BY MICROSCOPY HIGH POWER FIELD 6-10/[H PF] 0 - 3 08/24 H Specimen Type: URINE Comment: If Glucose = >500 and Ketones are positive, please alert the Physician. Ordering Provider: ZAKI VERDUZCO Report Released Date/Time: Aug 09, 2024 09:43 AM Reporting Lab: [facility]USE[facility] [address] [address] Performing Lab: [facility]ITAL[facility] [address] [facility]ITAL[facility] URINALYSI S COLOR OF URINE Light-B rown 08/24 Specimen Type: URINE Comment: If Glucose = >500 and Ketones are positive, please alert the Physician. Ordering Provider: ZAKI VERDUZCO Report Released Date/Time: Aug 09, 2024 09:43 AM Reporting Lab: [facility] [place] [facility] [address] [address] Performing Lab: [facility] [facility] [address] [address] [facility] URINALYSI S APPEARANCE OF URINE Turbid 08/24 Specimen Type: URINE Comment: If Glucose = >500 and Ketones are positive, please alert the Physician. Ordering Provider: ZAKI VERDUZCO Report Released Date/Time: Aug 09, 2024 09:43 AM Reporting Lab: [facility] [place] [facility] [address] [address] Performing Lab: [facility] [place] [facility] [address] [address] [facility] URINALYSI S GLUCOSE [MASS/VOLU ME] IN URINE Normalm g/dL 08/24 Specimen Type: URINE Comment: If Glucose = >500 and Ketones are positive, please alert the Physician. Ordering Provider: ZAKI VERDUZCO Report Released Date/Time: Aug 09, 2024 09:43 AM Reporting Lab: [facility] [place] [facility] [address] [address] Performing Lab: [facility] [place] [facility] [address] [address] [facility] URINALYSI S KETONES [MASS/VOLU ME] IN URINE BY TEST STRIP NEGATIV Emg/dL 08/24 Specimen Type: URINE Comment: If Glucose = >500 and Ketones are positive, please alert the Physician. Ordering Provider: ZAKI VERDUZCO Report Released Date/Time: Aug 09, 2024 09:43 AM Reporting Lab: [facility] [place] [facility] [address] [facility] [address] Performing Lab: [facility] [place] [facility] [address] [facility] [address] [facility] URINALYSI S ERYTHROCYT ES [PRESENCE] IN URINE SEDIMENT BY LIGHT MICROSCOPY LARGEmg /dL 08/24 Specimen Type: URINE Comment: If Glucose = >500 and Ketones are positive, please alert the Physician. Ordering Provider: ZAKI VERDUZCO Report Released Date/Time: Aug 09, 2024 09:43 AM Reporting Lab: [facility] [address] [facility] [facility] [address] Performing Lab: [facility] [address] [facility] [address] [facility] URINALYSI S PROTEIN [MASS/VOLU ME] IN URINE BY TEST STRIP 100 mg/dL 08/24 Specimen Type: URINE Comment: If Glucose = >500 and Ketones are positive, please alert the Physician. Ordering Provider: ZAKI VERDUZCO Report Released Date/Time: Aug 09, 2024 09:43 AM Reporting Lab: [facility] [address] Performing Lab: [facility] [address] [facility] [facility] URINALYSI S NITRITE [PRESENCE] IN URINE NEGATIV Emg/dL 08/24 Specimen Type: URINE Comment: If Glucose = >500 and Ketones are positive, please alert the Physician. Ordering Provider: ZAKI VERDUZCO Report Released Date/Time: Aug 09, 2024 09:43 AM Reporting Lab: [facility]ITALUS[facility] [address] [address] Performing Lab: [facility]ITALUSE[address] [address] [facility] URINALYSI S BILIRUBIN. TOTAL [PRESENCE] IN URINE NEGATIV Emg/dL 08/24 Specimen Type: URINE Comment: If Glucose = >500 and Ketones are positive, please alert the Physician. Ordering Provider: ZAKI VERDUZCO Report Released Date/Time: Aug 09, 2024 09:43 AM Reporting Lab: [facility] [place] [facility] [address] [facility] [facility] [address] Performing Lab: [facility] [place] [facility] [address] [facility] [facility] [facility] [address] [facility] [place] [facility] URINALYSI S SPECIFIC GRAVITY OF URINE BY REFRACTOME TRY 1.007 1.016 - 1.022 08/24 L Specimen Type: URINE Comment: If Glucose = >500 and Ketones are positive, please alert the Physician. Ordering Provider: ZAKI VERDUZCO Report Released Date/Time: Aug 09, 2024 09:43 AM Reporting Lab: [facility] [place] [address] [address] Performing Lab: [facility]ITALUSE[address] [address] [facility] [place] [facility] URINALYSI S PH OF URINE BY TEST STRIP 8.5 5.0 - 9.0 08/24 Specimen Type: URINE Comment: If Glucose = >500 and Ketones are positive, please alert the Physician. Ordering Provider: ZAKI VERDUZCO Report Released Date/Time: Aug 09, 2024 09:43 AM Reporting Lab: [facility] [place] [address] [address] Performing Lab: [facility] [place] [address] [address] [facility] [place] TS [facility] URINALYSI S UROBILINOG EN [MASS/VOLU ME] IN URINE BY TEST STRIP Normalm g/dL <2.0 - 2.0 08/24 Specimen Type: URINE Comment: If Glucose = >500 and Ketones are positive, please alert the Physician. Ordering Provider: ZAKI VERDUZCO Report Released Date/Time: Aug 09, 2024 09:43 AM Reporting Lab: [facility] [place] [facility] [address] [facility] [facility] [address] Performing Lab: [facility]TRN [facility]ITALCHUSETS [address] [address] [facility] [place] [facility] URINALYSI S LEUKOCYTE ESTERASE [PRESENCE] IN URINE BY TEST STRIP LARGE 08/24 Specimen Type: URINE Comment: If Glucose = >500 and Ketones are positive, please alert the Physician. Ordering Provider: ZAKI VERDUZCO Report Released Date/Time: Aug 09, 2024 09:43 AM Reporting Lab: [facility] [address] [facility] [facility] [address] Performing Lab: [facility]ITALUSE[address] [address] [facility] BASIC METABOLIC PANEL (fasting) UREA NITROGEN [MASS/VOLU ME] IN SERUM OR PLASMA 22 mg/dL 7 - 25 08/08 Specimen Type: SERUM No comment entered. Ordering Provider: ZAKI VERDUZCO Report Released Date/Time: Aug 08, 2024 10:54 AM Reporting Lab: [facility] [address] [address] Performing Lab: [facility]ITALUSE[address] [address] [facility] BASIC METABOLIC PANEL (fasting) GLUCOSE [MASS/VOLU ME] IN SERUM OR PLASMA 91 mg/dL 65 - 100 08/08 Specimen Type: SERUM No comment entered. Ordering Provider: ZAKI VERDUZCO Report Released Date/Time: Aug 08, 2024 10:54 AM Reporting Lab: [facility] [address] Performing Lab: [facility]ITALUSE[address] [address] [facility] BASIC METABOLIC PANEL (fasting) SODIUM [MOLES/VOL UME] IN SERUM OR PLASMA 138 mmol/L 135 - 145 08/08 Specimen Type: SERUM No comment entered. Ordering Provider: ZAKI VERDUZCO Report Released Date/Time: Aug 08, 2024 10:54 AM Reporting Lab: [facility]ITALUSE[address] [address] Performing Lab: [facility]N [facility]OS[facility]ITALUSE[address] [place] [address] [facility]N [facility]ITALUSE [facility] BASIC METABOLIC PANEL (fasting) POTASSIUM [MOLES/VOL UME] IN SERUM OR PLASMA 4.8 mmol/L 3.5 - 5.0 08/08 Specimen Type: SERUM No comment entered. Ordering Provider: ZAKI VERDUZCO Report Released Date/Time: Aug 08, 2024 10:54 AM Reporting Lab: [facility] [place] [facility] [address] [facility] [facility] [facility] [address] Performing Lab: [facility] W[facility]N [facility]OSPITALUSEGAR[facility] [address] [facility] [facility] [address] [facility]N [facility] HOSPITALUSE [facility] BASIC METABOLIC PANEL (fasting) CHLORIDE [MOLES/VOL UME] IN SERUM OR PLASMA 105 mmol/L 100 - 110 08/08 Specimen Type: SERUM No comment entered. Ordering Provider: ZAKI VERDUZCO Report Released Date/Time: Aug 08, 2024 10:54 AM Reporting Lab: [facility] [place] [facility] [address] [facility] [facility] [address] Performing Lab: [facility] W[facility]ITALUSE[address] [address] [facility]TRN [facility] HOSPITALUSE [facility] BASIC METABOLIC PANEL (fasting) CARBON DIOXIDE, TOTAL [MOLES/VOL UME] IN SERUM OR PLASMA 25 meq/L 20 - 30 08/08 Specimen Type: SERUM No comment entered. Ordering Provider: ZAKI VERDUZCO Report Released Date/Time: Aug 08, 2024 10:54 AM Reporting Lab: [facility] [place] [facility] [address] [facility] [facility] [address] Performing Lab: [facility] W[facility]ITALUSE[address] [address] [facility]N [facility] HOSPITALUSE [facility] BASIC METABOLIC PANEL (fasting) CREATININE [MASS/VOLU ME] IN SERUM OR PLASMA 0.99 mg/dL 0.50 - 1.40 08/08 Specimen Type: SERUM No comment entered. Ordering Provider: ZAKI VERDUZCO Report Released Date/Time: Aug 08, 2024 10:54 AM Reporting Lab: [facility]N [facility]OSPITALUSEGAR[facility] [address] [facility] [facility] [address] Performing Lab: [facility] [address] [facility] [facility] [address] [facility] BASIC METABOLIC PANEL (fasting) GLOMERULAR FILTRATION RATE/1.73 SQ M.PREDICTE D [VOLUME RATE/AREA] IN SERUM, PLASMA OR BLOOD BY CREATININE -BASED FORMULA (CKD-EPI 2020) 77 mL/min 60 08/08 Specimen Type: SERUM No comment entered. Ordering Provider: ZAKI VERDUZCO Report Released Date/Time: Aug 08, 2024 10:54 AM Reporting Lab: [facility] [address] [facility] [facility] [address] Performing Lab: [facility] [address] [facility] [facility] [address] [facility] FOLATE (WROX) FOLATE [MASS/VOLU ME] IN SERUM OR PLASMA 4.07 ng/mL 5.2 08/08 L Specimen Type: SERUM No comment entered. Ordering Provider: ZAKI VERDUZCO Report Released Date/Time: Aug 08, 2024 10:54 AM Reporting Lab: [facility] [address] [facility] [facility] [address] Performing Lab: [facility] [address] [facility] [address] [facility] HEMOGLOBI N A1C PANEL HEMOGLOBIN A1C/HEMOGL [...] AM Reporting Lab: [facility] [place] [facility] [address] [facility] [facility] [address] Performing Lab: [facility] [place] [facility] [address] [facility] [facility] [facility] [address] [place] [facility] [place] [facility] LIPID PANEL FASTING CHOLESTERO L [MASS/VOLU ME] IN SERUM OR PLASMA 178 mg/dL 08/08 Specimen Type: SERUM No comment entered. Ordering Provider: ZAKI VERDUZCO Report Released Date/Time: Aug 08, 2024 10:54 AM Reporting Lab: [facility] [facility] [address] [facility] [facility] [address] Performing Lab: [place] [facility] [address] [facility] [facility] [facility] [address] [facility]USE [facility] LIPID PANEL FASTING TRIGLYCERI DE [MASS/VOLU ME] IN SERUM OR PLASMA 97 mg/dL 0 - 150 08/08 Specimen Type: SERUM No comment entered. Ordering Provider: ZAKI VERDUZCO Report Released Date/Time: Aug 08, 2024 10:54 AM Reporting Lab: [place] [facility] [address] [facility] [facility] [address] Performing Lab: [place] [facility] [place] [facility] [address] [facility] [facility] [address] [facility] LIPID PANEL FASTING CHOLESTERO L IN LDL [MASS/VOLU ME] IN SERUM OR PLASMA BY NISHA Hughes 97 mg/dL 0 - 129 08/08 Specimen Type: SERUM No comment entered. Ordering Provider: ZAKI VERDUZCO Report Released Date/Time: Aug 08, 2024 10:54 AM Reporting Lab: [facility] [place] [facility] [address] [facility] [facility] [address] Performing Lab: [place] [facility] [place] [facility] [address] [facility] [address] [facility] LIPID PANEL FASTING CHOLESTERO L.TOTAL/CH OLESTEROL IN HDL [MASS RATIO] IN SERUM OR PLASMA 2.9 08/08 Specimen Type: SERUM No comment entered. Ordering Provider: ZAKI VERDUZCO Report Released Date/Time: Aug 08, 2024 10:54 AM Reporting Lab: [facility] [place] [facility] [address] [facility] [facility] [address] Performing Lab: [facility] [place] [facility] [address] [facility] [facility] [address] [facility] [place] [facility] LIPID PANEL FASTING CHOLESTERO L IN HDL [MASS/VOLU ME] IN SERUM OR PLASMA 62 mg/dL 40 - 60 08/08 H Specimen Type: SERUM No comment entered. Ordering Provider: ZAKI VERDUZCO Report Released Date/Time: Aug 08, 2024 10:54 AM Reporting Lab: [facility] [place] [facility] [address] [facility] [facility] [address] Performing Lab: [facility] [place] [facility] [address] [facility] [facility] [address] [facility] [facility] MICROALBU MIN CREATININ E RATIO PANEL MICROALBUM IN/CREATIN INE [MASS RATIO] IN URINE 354.2 mg/g 0 - 29.9 08/08 H Specimen Type: URINE No comment entered. Ordering Provider: ZAKI VERDUZCO Report Released Date/Time: Aug 08, 2024 10:54 AM Reporting Lab: [facility] [place] [facility] [address] [facility] [facility] [address] Performing Lab: [facility] [place] [facility] [address] [facility] [facility] [address] [facility] [facility] MICROALBU MIN CREATININ E RATIO PANEL MICROALBUM IN [MASS/VOLU ME] IN URINE 103.3 mg/dL 08/08 Specimen Type: URINE No comment entered. Ordering Provider: ZAKI VERDUZCO Report Released Date/Time: Aug 08, 2024 10:54 AM Reporting Lab: [facility] [place] [facility] [address] [facility] [facility] [address] Performing Lab: [facility] [place] [facility] [address] [facility] [facility] [address] [facility] [place] [facility] MICROALBU MIN CREATININ E RATIO PANEL CREATININE [MASS/VOLU ME] IN URINE 291.68 mg/dL 08/08 Specimen Type: URINE No comment entered. Ordering Provider: ZAKI VERDUZCO Report Released Date/Time: Aug 08, 2024 10:54 AM Reporting Lab: [facility] [address] [facility] [facility] [address] Performing Lab: [address] [address] [facility] VITAMIN B12 COBALAMIN (VITAMIN B12) [MASS/VOLU ME] IN SERUM OR PLASMA 1849 pg/mL 200 - 900 08/08 H Specimen Type: SERUM No comment entered. Ordering Provider: ZAKI VERDUZCO Report Released Date/Time: Aug 08, 2024 10:54 AM Reporting Lab: [address] [address] Performing Lab: [address] [address] [facility] VITAMIN D 25-OH (Therapy monitor) 25-HYDROXY [...] additional information , please refer to http://educ ation.[employer] .com/faq/FA Q199 (This link is being provided for information al/ educational purposes only.) This test was developed and its analytical performance characteris tics have been determined by [employer] [place], [place]. It has not been cleared or approved by the U.S. Food and Drug Administrat ion. This assay has been validated pursuant to the CLIA regulations and is used for clinical purposes. This test was developed and its analytical performance characteris tics have been determined by [employer], [place]. It has not been cleared or approved by the U.S. Food and Drug Administrat ion. This assay has been validated pursuant to the CLIA regulations and is used for clinical purposes. Test Performed by [facility], [employer] [facility], [address] [place] [address] Dov Bahena M.D., Ph.D., Director of Laboratorie s , CLIA [id number] TEST PERFORMED AT: , Ordering Provider: ZAKI VERDUZCO Report Released Date/Time: Aug 08, 2024 10:54 AM Reporting Lab: [facility] [address] [facility] [facility] [address] Performing Lab: [facility] [address] [address] [facility] VITAMIN D 25-OH (Therapy monitor) 25-HYDROXY [...] additional information , please refer to http://educ ation.[employer] .[employer])/faq/FA Q199 (This link is being provided for information al/ educational purposes only.) This test was developed and its analytical performance characteris tics have been determined by [employer] [place], [place]. It has not been cleared or approved by the U.S. Food and Drug Administrat ion. This assay has been validated pursuant to the CLIA regulations and is used for clinical purposes. This test was developed and its analytical performance characteris tics have been determined by [employer], [place]. It has not been cleared or approved by the U.S. Food and Drug Administrat ion. This assay has been validated pursuant to the CLIA regulations and is used for clinical purposes. Test Performed by [facility], [employer] [facility], [address] [place] [address] Dov Bahena M.D., Ph.D., Director of Laboratorie s , CLIA [id number] TEST PERFORMED AT: , Ordering Provider: ZAKI VERDUZCO Report Released Date/Time: Aug 08, 2024 10:54 AM Reporting Lab: [facility] [address] [facility] [facility] [address] Performing Lab: [facility] [address] [address] [facility] VITAMIN D 25-OH (Therapy monitor) CALCIFEROL [...] additional information , please refer to http://educ ation.[employer] .[employer] ([employer])/faq/FA Q199 (This link is being provided for information al/ educational purposes only.) This test was developed and its analytical performance characteris tics have been determined by [employer] [place], [place]. It has not been cleared or approved by the U.S. Food and Drug Administrat [employer]. This assay has been validated pursuant to the CLIA regulations and is used for clinical purposes. This test was developed and its analytical performance characteris tics have been determined by [employer] [place], [place]. It has not been cleared or approved by the U.S. Food and Drug Administrat [employer]. This assay has been validated pursuant to the CLIA regulations and is used for clinical purposes. Test Performed by [facility], [employer] [facility], [address] [place], [place] Dov Bahena M.D., Ph.D., Director of Laboratorie s , CLIA [id number] TEST PERFORMED AT: , Ordering Provider: ZAKI VERDUZCO Report Released Date/Time: Aug 08, 2024 10:54 AM Reporting Lab: [facility] [address] [facility] [facility] [address] Performing Lab: [facility]ITALUSEG[facility] [address] [address] [place] [facility] Vital Signs Combined list of inpatient and outpatient Vital Signs from Department of Defense and Veterans Affairs, ranging from 12 months to all on record, depending upon the facility. Vital Sign Value Date Comments Source SYSTOLIC BLOOD PRESSURE 154 08/24/20 24 12:28:43 [place] DIASTOLIC BLOOD PRESSURE 78 024 12:28:43 [place] PULSE OXIMETRY 97 08/24/2024 12:28:43 [place] PAIN 0 08/24/2024 12:28:43 [place] HEIGHT 70 08/24/2024 12:28:43 [place] PULSE 68 08/24/2024 12:28:43 [place] RESPIRATION 20 08/24/2024 12:28:43 [place] SYSTOLIC BLOOD PRESSURE 155 08/09/20 24 09:58:25 [facility] [place] [facility] DIASTOLIC BLOOD PRESSURE 78 024 09:58:25 [facility] [place] [facility] PULSE OXIMETRY 97 08/09/2024 09:58:25 [place] [facility] WEIGHT 179.8 08/09/2024 09:58:25 [facility] [...] ADM Date DC Date Status [facility] EST JANUARY X REQ PHY/QHP [id number] Diagnos is: ICD-10- CM M54.50 Low back pain, unspeci fied
JOSE REDDY IC K 04/20 [place] [facility] [id number] 04/20 [facility] [place] En[facility] [id number] 04/20 [facility] [place] En[facility] [id number] 04/21 [facility] [place] En[facility] [id number] 04/22 [facility] [place] Encounter [id number] 05/08 [facility] [place] En[facility] [id number] 05/20 [facility] En[facility] [id number] ARSH CORBETT ON 05/20 [facility] En[facility] [id number] 05/22 [facility] [place] En[facility] [id number] 05/28 [facility] [place] OFF/OP EST JANUARY X REQ PHY/QHP [id number] Diagnos is: ICD-10- CM R20.2 Paresth esia of skin
Lou VERDUZCO 06/02 [facility] En[facility] [id number] 06/03 [facility] [place] En[facility] [id number] 06/04 [facility] [place] Encounter [id number] 06/04 [facility] OFF/OP EST MAY X REQ PHY/QHP [id number] Diagnos is: ICD-10- CM R68.89 Other general symptom s and signs<b r/> BARRY,ER IC K 06/05 [facility] [place] Outpatient Encounter [id number] 06/05 [facility] [place] [facility] En[facility] [id number] 06/[address] [place] [facility] [place] [facility] Outpatient Encounter [id number] 06/10 [facility] [place] [facility] [place] OFFICE O/P EST MOD 30-39 MIN [id number] Diagnos is: ICD-10- CM Z00.01 Encount er for general adult medical exam w abnorma l finding s
LUBA,A POLINARIO 06/23 [place] [facility] En[facility] [id number] 06/23 [facility] [place] [facility] SELF-HELP/ PEER SVC PER 15MIN [id number] Diagnos is: ICD-10- CM Z59.00 Homeles sness unspeci fied
CAPELLA,CY NTHIA [facility] LOW 20-29 MIN [id number] Diagnos is: ICD-10- CM D52.8 Other folate deficie ncy anemias
LUBA,A POLINARIO 06/30 [place] OFFICE O/P NEW MOD 45-59 MIN [id number] Diagnos is: ICD-10- CM C61 Maligna nt neoplas m of prostat e
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
LUBA,A POLINARIO 07/06 [place] [facility] [id number] 07/14 [facility] En[facility] [id number] 07/16 [facility] OFFICE O/P NEW MOD 45-59 MIN [id number] Diagnos is: ICD-10- CM M54.59 Other low back pain
NICANOR MARIA RA 07/16 [facility] En[facility] [id number] 07/17 [facility] En[facility] [id number] 07/20 [facility] En[facility] [id number] 07/21 [facility] En[facility] [id number] 08/10 [facility] En[facility] [id number] 08/14 [facility] [id number] 08/24 [facility] [id number] 09/16 [facility] [place] [facility] O/P EST LOW 20-29 MIN [id number] Diagnos is: ICD-10- CM I10 Essenti al (primar y) hyperte nsion<b r/> Lou VERDUZCO POLIMARLIN 09/18 [place] [facility] En[facility] [id number] 10/06 [facility] [id number] 10/06 [facility] [id number] 10/06 [facility] [id number] 10/06 [facility] [place] [facility] [id number] Lou VERDUZCO POLINARIO 10/06 [place] [facility] [id number] 10/08 [facility] [id number] 10/14 [facility] [id number] 10/26 [facility] [id number] 12/03 [facility] [id number] 12/03 [facility] [facility] [place] OFF[place] O/P EST MOD 30 MIN [id number] Diagnos is: ICD-10- CM R97.20 Elevate d prostat e specifi c antigen [PSA]<b r/> Lou VERDUZCO POLIYASMINIO 12/21 [place] [facility] COMPRE OPH EXAM EST PT 1/> [id number] Diagnos is: ICD-10- CM H40.013 Open angle with borderl ine finding s, low risk, bilater al
MERHAR,ALANA H B 12/30 [facility] CMPTR OPHTH IMG OPTIC NERVE [id number] Diagnos is: ICD-10- CM H40.013 Open angle with borderl ine finding s, low risk, bilater al
MERHAR,ALANA H B 12/30 [facility] [place] O/P EST MOD 30 MIN [id number] Diagnos is: ICD-10- CM W06.XXX A Fall from bed, initial encount er
Lou VERDUZCO 01/21 [facility] Outpatient Encounter [id number] 01/24 [facility] Outpatient Encounter [id number] 01/27 [facility] Encounter [id number] 02/21 [facility] Outpatient Encounter [id number] 02/25 [facility] [place] OFF/OP EST JANUARY X REQ PHY/QHP [id number] Diagnos is: ICD-10- CM L02.212 [place] us abscess of back [any part, except buttock ]
LATISHA RIVERA 02/25 [facility] Outpatient Encounter [id number] 02/25 [facility] [place] O/P EST MOD 30 MIN [id number] Diagnos is: ICD-10- CM L02.818 [place] us abscess of other sites<b r/> ROWDY MCLAIN 02/25 [facility] Outpatient Encounter [id number] 03/02 [facility] [place] UNLISTED SPEC DERM SVC/PX [id number] Diagnos is: ICD-10- CM Z13.89 Encount er for screeni ng for other disorde r
SWETHA,Sree [place]ALE [place] [facility] Outpatient Encounter [id number] Diagnos is: ICD-10- CM L82.1 Other seborrh eic keratos is
ADRIANNE MELISSA 03/14 [facility] Outpatient Encounter [id number] 1.03/14 [facility] Out[facility] Encounter [id number] 1.03/14 [facility] Outpatient Encounter [id number] 1.03/18 [facility] OFFICE O/P EST MOD 30 MIN [id number] Diagnos is: ICD-10- CM N13.9 Obstruc tive and reflux uropath y, unspeci fied
Lou VERDUZCO 03/21 [facility] Outpatient Encounter [id number] 03/21 [facility] QNHP OL DIG ASSMT&MGMT 5-10 [id number] [id number] Diagnos is: ICD-10- CM Z51.81 Encount er for therape utic drug level monitor ing<br/ > CHAY DAVIS 03/21 [place] 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
LUBA,A POLINARIO 04/27 [place] [facility] Out[facility] Encounter [id number] 1.05/20 [facility] OFF/OP EST JANUARY X REQ PHY/QHP [id number] Diagnos is: ICD-10- CM Z23 Encount er for immuniz ation<b r/> ROMA,L BERTIN H 05/31 [place] [facility] Out[facility] Encounter [id number] 06/01 [facility] Encounter [id number] 06/01 [facility] Encounter [id number] 06/03 [facility] Encounter [id number] 06/07 [facility] Encounter [id number] 06/07 [facility] Out[facility] Encounter [id number] 06/13 [facility] Encounter [id number] 06/16 [facility] OFFICE O/P EST MOD 30 MIN [id number] Diagnos is: ICD-10- CM Z01.810 Encount er for preproc edural cardiov ascular examina tion
LUBA,A TOYINIO 06/21 [facility] Out[facility] Encounter [id number] 06/23 [facility] Encounter [id number] 06/24 [facility] Encounter [id number] 06/29 [facility] Out[facility] Encounter [id number] 06/30 [facility] Encounter [id number] 1.07/06 [facility] Encounter [id number] 07/07 [facility] Encounter [id number] 1.07/07 [facility] Out[facility] Encounter [id number] 07/18 [facility] Encounter [id number] 07/19 [facility] Encounter [id number] 07/20 [facility] Out[facility] Encounter [id number] 07/26 [facility] Encounter [id number] 07/29 [facility] Outpatient Encounter [id number] 08/04 [facility] [place] O/P EST MOD 30 MIN [id number] 1BY. 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
LUBA,A POLINARIO 08/09 [place] 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
LUBA,A POLINARIO 08/17 [place] [facility] FIT SPECTACLES BIFOCAL [id number] Diagnos is: ICD-10- CM Z46.0 Encount er for fit/adj st of spectac les and contact lenses< br/> JEEVAN UMANA 08/22 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
HUMBERTO ROY VID A 08/24 [facility] Outpatient Encounter [id number] 08/25 [place] [facility] [place] [facility] Outpatient Encounter [id number] 08/29 [facility] Social History Combined list of available smoking, tobacco, and other social history from Department of Defense and Veterans Affairs facilities. 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 Additional future care activities may be listed in the Assessment and Plan section. Date/Time Care Activity Care Activity Detail Facili ty 12/13/2024 AMBULATORY - MEDICINE AMBULATORY - MEDICI [facility] 01/02/2025 AMBULATORY - MEDICINE AMBULATORY - MEDICI [facility] 08/09/2024 Consult Order [facility]-U FROYLANOGTammy Cons Wheel Alignment Technician's Choice [facility] Advance Directives List of completed, amended, or rescinded Advance Directives on record at Department of Veterans Affairs facilities. An actual copy of the Directive is not included. Date Advance Directive Provider Source 04/04/2024 [facility]
--- OUTSIDE RECORDS SUMMARY | 2024-08-30 22:15 | XMS_ITS | Encounter Summary ---
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 Address [address] [place] [address] Care Team Providers Care Manager Of Recruiting Name Role Phone NOLAN VERDUZCO Primary Care [...] to Policy Segal [facility] (R) MEDICARE ADVANTAGE [place] IN[place] Sep 21, 2023 [id number] [phone] GENET DUGAN S PATIENT [facility] ([facility]) [facility]IC[facility] ([facility] Sep 21, 2023 [id number] [phone] MARVIN DUGANI S PATIENT HUSKY MEDICAID HUSKY PLAN May 22, 2022 MEDICAI D [id number] GENET DUGAN S PATIENT MEDICARE ([facility] MEDICARE () PART B May 22, 2022 PART B [id number] MARVIN DUGANI S PATIENT MEDICARE (WNR) MEDICARE () PART A Feb 19, 2009 PART A [id number] GENET DUGAN S PATIENT MEDICARE PART D (WNR) MEDICARE (M) PART D Jul 22, 2022 PART D [id number] [phone] GENET DUGAN S PATIENT [facility] (WNR) MEDICARE ADVANTAGE [facility] (WNR) Sep 21, 2022 [id number] GENET DUGAN S PATIENT [facility] (WNR) MEDICARE ADVANTAGE [facility] (WNR) Sep 21, 2022 [id number] GENET DUGAN PATIENT Selected Encounter This section includes the information on record at [place] for the Encounter. Date/Time Encounter Type Encounter Description Reason Provider Source Oct 06, 2023 12:37 PM Outpatient Encounter PRIMARY CARE/MEDICINE HORTENCIA VERDUZCO Encounter Template Text not used by MI [...] 22, 2023 10:00 AM AMBULATORY - MEDICINE [place] [facility] [place] [place] [facility] Dec 31, 2023 09:00 AM AMBULATORY - MEDICINE [facility] [place] [place] [facility] Dec 31, 2023 10:30 AM AMBULATORY - MEDICINE [place] [facility] [place] [facility] January 22, 2024 02:30 PM AMBULATORY - MEDICINE [facility] [place] [facility] Feb 26, 2024 01:00 PM AMBUL[facility]ORY - MEDICINE [place] Feb 26, 2024 01:15 PM AMBULATORY - MEDICINE [place] Mar 10, 2024 09:00 AM AMBULATORY - NONE [facility] [place] [facility] Mar 18, 2024 09:30 AM AMBULATORY - MEDICINE [place] [facility] [place] [facility] Mar 21, 2024 09:30 AM AMBULATORY - MEDICINE [place] [facility] [place] [facility] Lab Results: +/- 30 days [...] Range Comment Oct 06, 2023 12:48 PM [facility] PSA Specimen Type: SERUM No comment entered. Ordering Provider: HAYLEY VERDUZCO Report Released Date/Time: Oct 06, 2023 12:38 PM Reporting Lab: [facility] [address] [facility] [address] Performing Lab: [facility] [address] [facility] [address] PSA 21.53 ng/mL H 0.00-4.00 Sep 18, 2023 12:07 PM [facility] FOLATE Specimen Type: SERUM No comment entered. Ordering Provider: HAYLEY VERDUZCO Report Released Date/Time: Sep 18, 2023 11:50 AM Reporting Lab: [facility] [address] [facility] [address] Performing Lab: [facility] [address] [address] FOLATE 3.83 ng/mL L >5.2 Social History: Smoking Status (Most current) and Tobacco Use (All prior to encounter date) This section includes the most current, and the historical, smoking and tobacco- related health factors from the [place] facility where the Encounter took place. Current Smoking Status This section includes the most current smoking, or tobacco-related health factor, from the [place] facility where the Encounter took place. Date/Time Current Smoking Status Comment Ray ity Jun 23, 2023 09:00 AM VA-TOBACCO FORMER USER [place] Tobacco Use History This section includes a history of the smoking, or tobacco-related health factors, that were collected on or before the date of the Encounter. The data comes from the [place] facility where the Encounter took place. Date/Time Smoking Status/Tobacco Use Comment F acility Jun 23, 2023 09:00 AM [place]-TOBACCO QUIT 15 YRS OR MORE [place] May 01, 2022 01:30 PM [place]-TOBACCO FORMER USER [place] May 01, 2022 01:30 PM VA-TOBACCO QUIT 15 YRS OR MORE [place] Apr 15, 2021 03:00 PM VA-TOBACCO FORMER USER [place] Apr 15, 2021 03:00 PM VA-TOBACCO QUIT 15 YRS OR MORE [place] Oct 20, 2018 12:53 PM VA-TOBACCO FORMER USER [place] Oct 20, 2018 12:53 PM VA-TOBACCO QUIT 15 YRS OR MORE [place] Jul 03, 2017 10:33 AM QUIT TOBACCO USE > 7 YEARS AGO quit 25yrs ago [place] February 13, 2016 08:46 AM LIFETIME NON-TOBACCO USER [place] Advance Directives: All historical and current Section Date Range: From patient's date of to the date document was created. This section includes ALL of a patient's completed or amended [place] Advance and Rescinded Directives. The entries below indicate that a directive exists for the patient, but an actual copy is not included with this document. The data comes from all [facility]. Date Advance Directives Provider Source Apr 04, [...] CT ABDOMEN /PELVIS W/WO CONTRAST: JAKE DUGAN [id number] -1945 M Exm Date: OCT 14, 2023@14:00 Req Phys: LUBA,NOLAN Pat Loc: [facility]/OUTSIDE IMAGING NON-CNT (R Img Loc: OUTSIDE GENERAL RADIOLOGY Service: Unknown (Case [id number] COMPLETE) OUTSIDE CT ABDOMEN/PELVIS W/WO CO(RAD Detailed) CPT:37145 Reason for Study: outside images have been uploaded for continuity of care Clinical History: outside images have been uploaded for continuity of care Report Status: Electronically Filed Date Reported: OCT 14, 2023 Report: THIS EXAM WAS PERFORMED AND INTERPRETED AT AN OUTSIDE HOSPITAL Impression: THIS EXAM WAS PERFORMED AND INTERPRETED AT AN OUTSIDE HOSPITAL Primary Diagnostic Code: VERIFIED BY: / *ELECTRONICALLY FILED* [facility] [place] [facility] Encounter Notes: All associated encounter notes This section contains the clinical notes associated to the Encounter. Date/Time Encounter Note(s) Provider Source Oct 06, 2023 12:38 PM ADMINISTRATIVE NOT E: LOCAL TITLE: ADMINISTRATIVE NOTE STANDARD TITLE: ADMINISTRATIVE NOTE DATE OF NOTE: OCT 06, 2023@12:38 ENTRY DATE: OCT 06, 2023@12:39:03 AUTHOR: NOLAN VERDUZCO EXP COSIGNER: URGENCY: STATUS: COMPLETED Request for repeat PSA Recent level of 21 drawn at specialty. Okay to do VA test but he does have a tendency to use Primary for second opinion. I've tried to avoid this in the past but was inadvertently used as the good news to offset the bad news from the specialty. /mariana/ NOLAN VERDUZCO MD PHYSICIAN Signed: 10/06/2023 12:41 NOLAN VERDUZCO [place]
--- OUTSIDE RECORDS SUMMARY | 2024-08-30 22:16 | XMS_ITS | Encounter Summary ---
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 Address [address] [place] [address] Care Team Providers Care Stamp Presser Name Role Phone NOLAN VERDUZCO Primary Care [...] Member ID Insurance Provider's Telephone Number Policy Segla's Name Patient's Relationship to Policy Segal [facility] ([employer] [facility] MEDICARE ADVANTAGE [place] IN[place] Sep 21, 2023 [id number] [phone] MARVIN DUGANI S [facility] MEDICARE ADVANTAGE [facility] ([employer] [facility]) Sep 21, 2023 [id number] [phone] DUGAN,GENET S PATIENT [place]KY MEDICAID HUSKY PLAN May 22, 2022 MEDICAI D [id number] DUGAN,GENET S PATIENT MEDICARE ([employer] [facility]) MEDICARE ([place]) PART B May 22, 2022 PART B [id number] DUGAN,GENET S PATIENT MEDICARE ([employer] [facility]) MEDICARE ([place]) PART A Feb 19, 2009 PART A [id number] [phone] DUGAN,GENET S PATIENT MEDICARE PART D (WNR) MEDICARE ([place]) PART D Jul 22, 2022 PART D [id number] [phone] GENET DUGAN S PATIENT [facility] (WNR) MEDICARE ADVANTAGE [facility] (WNR) Sep 21, 2022 [id number] [id number] GENET DUGAN S PATIENT [facility] (WNR) MEDICARE ADVANTAGE [facility] (WNR) Sep 21, 2022 [id number] GENET DUGAN PATIENT Selected Encounter This section includes the information on record at [place] for the Encounter. Date/Time Encounter Type Encounter Description Reason Pro vider Source Oct 06, 2023 12:00 AM Outpatient Encounter EVENT (HISTORICAL) IHE [...] 22, 2023 10:00 AM AMBULATORY [place]ICINE [place] [facility] [place] [place] [facility] Dec 31, 2023 09:00 AM AMBULATORY - MEDICINE [place] [facility] [place] [facility] Dec 31, 2023 10:30 AM AMBULATORY - MEDICINE [place] [facility] [place] [facility] January 22, 2024 02:30 PM AMBULATORY - MEDICINE [facility] [place] [facility] Feb 26, 2024 01:00 PM AMBULATORY - MEDICINE [place] Feb 26, 2024 01:15 PM AMBULATORY - MEDICINE [place] Mar 10, 2024 09:00 AM AMBULATORY - NONE [facility] [place] [facility] Mar 18, 2024 09:30 AM AMBULATORY - MEDICINE [place] [facility] [place] [facility] Mar 21, 2024 09:30 AM AMBULATORY - MEDICINE [place] [facility] [place] [facility] Lab Results: +/- 30 days of [...] Range Comment Oct 06, 2023 12:48 PM [facility] PSA Specimen Type: SERUM No comment entered. Ordering Provider: HAYLEY VERDUZCO Report Released Date/Time: Oct 06, 2023 12:38 PM Reporting Lab: [facility] [place] [facility] [address] [address] Performing Lab: [facility] [address] [address] PSA 21.53 ng/mL H 0.00-4.00 Sep 18, 2023 12:07 PM [facility] FOLATE Specimen Type: SERUM No comment entered. Ordering Provider: HAYLEY VERDUZCO Report Released Date/Time: Sep 18, 2023 11:50 AM Reporting Lab: [facility] [address] [address] Performing Lab: [facility]ITALTRN [facility] [address] [facility] [address] FOLATE 3.83 ng/mL L >5.2 Advance Directives: [...] 2024 ADVANCE [facility]IVE [facility] Rad[facility] Reports: +/- 30 days [...] the Encounter. The data comes from all [place] treatment facilities. Date/Time Radiology Report Provider Source Oct 14, 2023 02:[address] ABDOMEN /PELVIS W/WO CONTRAST: JAKE DUGAN [id number] -1945 M Exm Date: OCT 14, 2023@14:00 Req Phys: LUBA,NOLAN Pat Loc: [facility]/OUTSIDE IMAGING NON-CNT (R Img Loc: OUTSIDE GENERAL RADIOLOGY Service: Unknown (Case 95 COMPLETE) OUTSIDE CT ABDOMEN/PELVIS W/WO CO(RAD Detailed) CPT:45724 Reason for Study: outside images have been uploaded for continuity of care Clinical History: outside images have been uploaded for continuity of care Report Status: Electronically Filed Date Reported: OCT 14, 2023 Report: THIS EXAM WAS PERFORMED AND INTERPRETED AT AN OUTSIDE HOSPITAL Impression: THIS EXAM WAS PERFORMED AND INTERPRETED AT AN OUTSIDE HOSPITAL Primary Diagnostic Code: VERIFIED BY: / *ELECTRONICALLY FILED* [facility] Encounter Notes: All associated encounter notes This section contains the clinical notes associated to the Encounter. Date/Time Encounter Note(s) Provider Source Oct 06, 2023 12:00 AM NONVA DIAGNOSTIC Katelyn BE REPORT: LOCAL TITLE: NON-VA DIAGNOSTICS STANDARD TITLE: NONVA DIAGNOSTIC STUDY REPORT DATE OF NOTE: OCT 06, 2023 ENTRY DATE: OCT 15, 2023@12:02:31 AUTHOR: ANIBAL SHEARER EXP COSIGNER: URGENCY: STATUS: COMPLETED VistA Imaging - Scanned Document SCANNED DOCUMENT SIGNATURE NOT REQUIRED Electronically Filed: 10/15/2023 by: ANIBAL SHEARER JELLY MAKER ANIBAL SHEARER [facility]
--- OUTSIDE RECORDS SUMMARY | 2024-08-30 22:18 | XMS_ITS ---
Author Name [facility] [place] Organization [facility] [place] Address [address] [place] [id number] Care Team Providers Care Satellite Technician Name Role Phone NOLAN VERDUZCO Primary [...] Segal's Name Patient's Relationship to Policy Segal [facility] ([facility]) MEDICARE [facility] INDIV IDUAL - [place] Sep 21, 2023 [id number] [phone] GENET DUGAN S PATIENT [facility] ([place]) MEDICARE ADVANTAGE [facility] ([facility]) Sep 21, 2023 [id number] [phone] DUGANGENET S PATIENT [place] MEDICAID [place] PLAN May 22, 2022 MEDICAI D [id number] MARVIN DUGANI S PATIENT MEDICARE ([facility]) MEDICARE (M) PART B May 22, 2022 PART B [id number] [phone] DUGANMARVINI S PATIENT MEDICARE ([facility]) MEDICARE (M) PART A Feb 19, 2009 PART A [id number] [phone] DUGAN,GENET S PATIENT MEDICARE PART D (WNR) MEDICARE (M) PART D Jul 22, 2022 PART D [id number] GENET DUGAN S PATIENT [facility] ([place]) MEDICARE ADVANTAGE [facility] ([place]) Sep 21, 2022 [id number] [phone] GENET DUGAN PATIENT [facility] (WNR) MEDICARE ADVANTAGE [facility] (WNR) Sep 21, 2022 [id number] GENET DUGAN PATIENT Selected Encounter This section includes the information on record at OR for the Encounter. Date/Time Encounter Type Encounter Description Reason Provider Source Dec 31, 2023 09:00 AM COMPRE OPH EXAM EST PT 1/> OPTOMETRY ICD-10-CM H40.013 Open angle with borderline findings, low risk, bilateral MERHAR,CAROL B E Encounter Template Text not used by VA Assessments - Encounter Diagnoses This section includes the primary and secondary diagnoses documented for the Encounter. Date/Time Primary/Secondary Diagnosis Diagnosis Name Provider Source Dec 31, 2023 10:37 AM PRIMARY Open angle with borderline findings, low risk, bilateral MERHAR,CAROL B [facility] [place] [facility] Dec 31, 2023 10:37 AM SECONDARY Combined forms of age-related cataract, bilateral MERHAR,CAROL B [facility] [place] [facility] Dec 31, 2023 10:37 AM SECONDARY Dry eye syndrome of bilateral lacrimal glands MERHAR,CAROL B [facility] [place] [facility] Dec 31, 2023 10:37 AM SECONDARY Hypermetropia, bilateral MERHAR,CAROL B [facility] [place] [facility] Plan of Treatment: Future Appointments (+ 6 months) and Future Tests (+/- 45 days) The Plan of Treatment section includes future care activities for the patient from all OR treatmentfacilities. This section includes future appointments and future orders which are active, pending or scheduled. Future Appointments This section includes appointments that were scheduled to occur 6 months from the date of the Encounter, up to a maximum of 20 appointments. The data comes from all OR treatment facilities. Appointment Date/Time Appointment Type Appointme nt Facility Name January 22, 2024 02:30 PM AMBULATORY - MEDICINE [facility] [place] [facility] Feb 26, 2024 01:00 PM [facility] Feb 26, 2024 01:15 PM [facility] [place] Mar 10, 2024 09:00 AM AMBULATORY - NONE [facility] [place] [facility] Mar 18, 2024 09:30 AM AMBULATORY - MEDICINE [facility] [place] [facility] Mar 21, 2024 09:30 AM AMBULATORY - MEDICINE [facility] [place] [facility] Apr 07, 2024 08:30 AM AMBULATORY - MEDICINE [facility] [place] [facility] Apr 15, 2024 02:30 PM AMBULATORY - MEDICINE [facility] [place] [facility] Apr 27, 2024 10:00 AM AMBULATORY - MEDICINE [facility] [place] [facility] May 13, 2024 11:00 AM AMBULATORY - MEDICINE [facility] [place] [facility] May 31, 2024 10:00 AM AMBULATORY - MEDICINE [facility] [place] [facility] Jun 03, 2024 12:45 PM AMBULATORY - MEDICINE [facility] [place] [facility] Jun 21, 2024 09:00 AM AMBULATORY - MEDICINE [facility] [place] [facility] Advance Directives: All historical and current Section Date Range: From patient's date of to the date document was created. This section includes ALL of a patient's completed or amended VA Advance and Rescinded Directives. The entries below indicate that a directive exists for the patient, but an actual copy is not included with this document. The data comes from all OR facilities. Date Advance Directives Provider Source Apr 04, 2024 ADVANCE DIRECTIVE CHAPINCITO DEE [facility] Encounter Notes: All associated encounter notes This section contains the clinical notes associated to the Encounter. Date/Time Encounter Note(s) Provider Source Dec 31, 2023 07:51 AM OPTOMETRY NOTE: LOCAL TITLE: OPTOMETRY NOTE STANDARD TITLE: OPTOMETRY NOTE DATE OF NOTE: DEC 31, 2023@07:51 ENTRY DATE: DEC 31, 2023@07:51:50 AUTHOR: TESS ELIZONDO COSIGNER: CAROL HOLLOWAY URGENCY: STATUS: COMPLETED OPTOMETRY NOTE Has ADDENDA Active problems - Computerized Problem List is the source for the followin. Carcinoma in situ of prostate 2. Olecranon bursitis 3. Loss of teeth - acquired 4. History of partial adherence to treatment 5. Paraesthesia of lower extremity (SNOMED CT 160622700) 6. status post appendectomy 7. Diverticular disease 8. Osteoarthritis (SNOMED CT [id number]) 9. Generalized anxiety disorder 10. Epilepsy 11. Essential hypertension 12. Atypical chest pain Active Outpatient Medications (including Supplies): Active Outpatient Medications Status 1) AMMONIUM LACTATE 12% LOTION APPLY SMALL AMOUNT ACTIVE TOPICALLY ONCE DAILY FOR DRY IRRITATED SKIN 2) ASPIRIN 81MG EC TAB TAKE ONE TABLET BY MOUTH ONCE ACTIVE DAILY TO PREVENT STROKE/HEART ATTACK 3) CAPSAICIN 0.025% CREAM APPLY A MODERATE AMOUNT ACTIVE TOPICALLY FOUR TIMES A DAY FOR LOCALIZED PAIN (USE FOR AT LEAST 4 WEEKS FOR EFFECT) 4) FOLIC ACID 1MG TAB TAKE ONE [...] CONTROL BLOOD PRESSURE Active Non-VA Medications Status 1) Non-VA FLUTICASONE PROP 50MCG 120D NASAL INHL 1 SPRAY ACTIVE INTO EACH NOSTRIL TWICE DAILY 7 Total Medications Allergies: HCTZ HYDROCHLOROTHIAZIDE All medications including those prescribed by outside VA's, community providers,and all OTC meds were reviewed and reconciled with patient to the best of their abilities. This 78 year old MALE is seen today for comprehensive exam Chief Complaint: Patient repoirts he has longstanding jagging white flash of light which used to happen years ago, almost everyday. Currently he gets them once every 4 months, lasts for 10 minutes, uses cold towel on eye which provide relief. Last occurrence was about a month ago Patient complains of white discharge and dryness in the morning. Patient reports using the drops that were given and baby shampoo but they didnot provide ay relief. He currently uses his glasses from 2 years ago and states the improves his vision better than last year's prescription OHx: 1. Glaucoma suspect OU low risk 2. Combined cataracts OU 3. Hyperopia with presbyopia OU 4. 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 (-) Pain: (-) ERICKSON: (-) Diplopia: (-) Flashes: (-) Floaters: (-) Amaurosis Fugax/Tia's: (-) Eye Injury: (-) Eye Surgery: (-) TBI FOHx: (-) Glaucoma/ARMD/Blindness (-) Smoker/Length of Time/PPD: Last eye exam: 12-22-22 Current Rx with last BCVA: OD: +3.00 -0.50 x 040 20/20 OS: +3.50 -1.25 x 086 20/20 Add: +2.75 DVA ( )sc ( x )cc (x)cc - 2 years RX OD: 20/25 20/40 PH: 20/25 OS: 20/60 PH:NI 20/60 PH:20/40 Pupils: PERRL (-)APD EOMs: SAFE OU, (-)Pain/Diplopia CVF (facial, peripheral): FTFC OU Subjective Refraction: BCVA OD: +3.00 -0.50 x 040 20/25 (no improvement) OS: +3.50 -1.25 x 086 20/50- (no improvement) Add: +2.75 All the above performed by student, reviewed by attending Anterior segment: Performed by student, repeated by attending Lids: Dermatochalasis OU Conj: pinguecula nasal and temp OU Cornea: diffuse SPK OU, reduced TBUT OU, inf nasal pannus OS AC: 4x4 OU Iris: flat and clear OU Lens: 1-2+ NSC, 1-2+ ACC OD 1-2+ NSC OS, 2+ ACC OS , central vacuoles OS Tonometry:Goldmann Performed by student, reviewed by attending OD 12 mmHg OS 15 mmHg Time: 9:10am Last IOP: OD: 11 mmHg OS: 11 mmHg Previous Pachymetry: OD: 568 OS: 567 Fundus exam: Dilated: 9:13aam Dilating Drops: 1GTT 1 % Tropicamide OU & 1GTT 2.5% Phenylephrine OU (Pt. ed. on side effects, dilation warning given and verbal consent obtained) Patient advised not to drive if they feel they have any symptoms which could affect their ability to drive safely. Patient advised not to engage in any activities which could put themselves or others at risk if they feel they have any symptoms which could affect their ability to perform those activities safely. Performed by student, repeated by attending Vit: clear OU C/D: 0.55/0.55 OD, 0.60/0.60 OS Macula: flat and clear OU PPole: clear A/V: 2/3 Vessels: normal caliber OU Periph: flat and intact (-)holes, tears, detachments 360 OU Assessment/Plan: 1. 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 No known family history of glaucoma. No evidence of pseudoexfoliation or pigment disperson. Previous pachymetry slightly thicker than average CCT -Pt ed re today's findings -Pt ed re glaucoma as well as the natural history of this diagnosis including prognosis. -Stress importance of continued follow-up appointments - repeated back the plan and education. -RTC 1 year for CEE 2. Dry eye Syndrome OU - Patient was educated and understanding on findings. Currently symptomatic therefore, the use of lubricating drops BID-QID OU, warm compresses and lid hygiene were recommended. -Patient prescribed Xiidra BID OU, Refresh Gel QID OU - Monitor during next CEE. 3. Combined Cataracts OU - mildly visually significant -Pt ed re today's findings and the importance of UV protection -Pt ed cataracts may cause reduction of BCVA and symptoms of glare -RTC sooner if vision declines or interferes with ADLs - repeated back the plan and education. -[facility] 4. Hyperopia with regular astigmatism with presbyopia OU -Patient educated on findings, Rx updated -No new RX ordered -Monitor Return to Clinic 1 year or earlier PRN Patient Education: Glaucoma: Patient was educated regarding glaucoma/glaucoma suspect as well as the natural history of this diagnosis including prognosis. Stress importance of compliance and persistency with glaucoma medication when prescribed, timely follow up as well as the role of ancillary testing. Exclusion criteria for ancillary testing include significantly reduced acuity, mental status changes affecting the patient's ability to attend to the test or other physical limitations that would prohibit the patient's ability to participate in testing. 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 The entrance tests and refraction were performed by the student and reviewed by me. I personally met with the patient, confirmed the history, complaints and the student's findings, and performed slit lamp and fundus evaluation as indicated. I reviewed and agree with the stated findings, assessment and plan. I have added/edited the documentation to reflect my exam findings and changes to the assessment and plan. patient offered and declined printed medication list Medication Reconciliation: Outpatient: Has the patient been taking medications as documented in the EMLR? YES: The patient has been taking medications as documented in the EMLR. Essential Medication List for Review used to complete this medication reconciliation. INCLUDED IN THIS LIST: Alphabetical list of active outpatient prescriptions dispensed from this VA (local) and dispensed from another OR or DoD facility (remote) as well as inpatient orders (local, pending and active), local clinic medications, locally documented non-VA medications, and local prescriptions that have or been discontinued in the past 90 days. - All changes in medications, including all non-VA/Herbal/OTC medications were entered into CPRS. - If there were any medications the patient should no longer take, they were discontinued. - The patient/caregiver was instructed to update this list, discard old lists, and take this list to the next appointment, whether with a VA or non-VA provider. JLV Link Data on this list may not be complete. Please check JLV. Allergies/ADRs (Tool #5) FACILITY ALLERGY/ADR -------- No Remote Allergy/ADR Data available for this patient [facility] [place] [facility] HCTZ HYDROCHLOROTHIAZIDE [facility] (Tool [facility] INCLUDED IN THIS LIST: Alphabetical list of active outpatient prescriptions dispensed from this VA (local) and dispensed from another VA or DoD facility (remote) as well as inpatient orders (local pending and active), local clinic medications, locally documented non-VA medications, and local prescriptions that have or been discontinued in the past 90 days. Non-VA Meds Last Documented On: February 12, 2016 NOTE The display of VA prescriptions dispensed from another VA or DoD facility (remote) is limited to active outpatient prescription entries matched to National Drug File at the originating site and may not include some items such as investigational drugs, compounds, etc. NOT INCLUDED IN THIS LIST: Medications self-entered by the patient into personal health records (i.e. [employer]) are NOT included in this list. Non-VA medications documented outside this VA, remote inpatient orders (regardless of status) and remote clinic medications are NOT included in this list. The patient and provider must always discuss medications the patient is taking, regardless of where the medication was dispensed or obtained. OUTPT AMMONIUM LACTATE 12% LOTION (Status = Active) APPLY SMALL AMOUNT TOPICALLY ONCE DAILY FOR DRY IRRITATED SKIN Rx# [id number] Last Released: 01/28/23 Qty/Days Supply: 240/90 Rx Expiration Date: 01/29/24 Refills Remainin Indication: FOR DRY SKIN OUTPT ASPIRIN 81MG EC TAB (Status = Active) TAKE ONE TABLET BY MOUTH ONCE DAILY TO PREVENT STROKE/HEART ATTACK Rx# [id number] Last Released: 01/28/23 Qty/Days Supply: 120/90 Rx Expiration Date: 01/29/24 Refills Remainin Indication: FOR BLOOD CLOT PREVENTION FOLLOWING PCI OUTPT CAPSAICIN 0.025% CREAM (Status = Active) APPLY A MODERATE AMOUNT TOPICALLY FOUR TIMES A DAY FOR LOCALIZED PAIN (USE FOR AT LEAST 4 WEEKS FOR EFFECT) Rx# [id number] Last Released: 12/22/23 Qty/Days Supply: 6030 Rx Expiration Date: 12/22/24 Refills Remainin Indication: FOR LOCALIZED PAIN OUTPT CARBOXYMETHYLCELLULOSE NA 0.5% OPH SOLN (Status = Discontinued) INSTILL 1 DROP INTO EACH EYE FOUR TIMES DAILY NEEDED FOR DRY EYE Rx# [id number] Last Released: 12/04/23 Qty/Days Supply: 45/90 Rx Expiration Date: 12/23/23 Refills Remainin Indication: FOR DRY EYE OUTPT CARBOXYMETHYLCELLULOSE NA 1% OPH GEL (Status = Active) APPLY 1 DROP INTO EACH EYE FOUR TIMES DAILY NEEDED FOR DRY EYE Rx# [id number] Last Released: 01/01/24 Qty/Days Supply: Rx Expiration Date: 12/31/24 Refills Remainin Indication: FOR DRY EYE Non-VA FLUTICASONE PROP 50MCG 120D NASAL INHL INSTILL 1 SPRAY INTO EACH NOSTRIL TWICE DAILY Medication prescribed by Non-VA provider. [place] [id number], CELINA Link OV 12-05-15 OUTPT FOLIC ACID 1MG TAB (Status = Active) TAKE ONE TABLET BY MOUTH ONCE DAILY FOR INADEQUATE FOLIC ACID VITAMIN/NUTRITION SUPPLEMENT Rx# [id number] Last Released: 06/30/23 Qty/Days Supply: Rx Expiration Date: 06/25/24 Refills Remainin Indication: FOR INADEQUATE FOLIC ACID OUTPT KETOTIFEN 0.025% OPH SOLN (Status = Discontinued) INSTILL 1 DROP INTO EACH EYE TWICE DAILY (IF YOU WEAR CONTACT LENSES, WAIT 10 MINUTES BEFORE INSERTING LENSES) Rx# [id number] Last Released: 09/18/23 Qty/Days Supply: Rx Expiration Date: 11/01/23 Refills Remainin OUTPT KETOTIFEN 0.025% OPH SOLN (Status = Active) INSTILL 1 DROP INTO EACH EYE TWICE DAILY (IF YOU WEAR CONTACT LENSES, WAIT 10 MINUTES BEFORE INSERTING LENSES) Rx# [id number] Last Released: 12/07/23 Qty/Days Supply: Rx Expiration Date: 12/04/24 Refills Remainin OUTPT LIFITEGRAST 5% OPH SOLN 0.2ML (Status = Discontinued) INSTILL 1 DROP INTO EACH EYE TWICE DAILY Rx# [id number] Last Released: 09/18/23 Qty/Days Supply: Rx Expiration Date: 11/01/23 Refills Remainin OUTPT LIFITEGRAST 5% OPH SOLN 0.2ML (Status = Active) INSTILL 1 DROP INTO EACH EYE TWICE DAILY Rx# [id number] Last Released: 01/01/24 Qty/Days Supply: Rx Expiration Date: 12/31/24 Refills Remainin OUTPT LISINOPRIL 20MG TAB (Status = Active) TAKE ONE TABLET BY MOUTH ONCE DAILY TO CONTROL BLOOD PRESSURE Rx# [id number] Last Released: 12/04/23 Qty/Days Supply: Rx Expiration Date: 12/04/24 Refills Remainin Indication: FOR HIGH BLOOD PRESSURE SUPPLIES /mariana/ CAROL HOLLOWAY OD Ammunition [employer] Laborer Signed: 01/01/2024 15:15 TESS ELIZONDO [facility]
--- OUTSIDE RECORDS SUMMARY | 2024-08-30 22:19 | XMS_ITS ---
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 [place] Organization [place] Address [address] [place] [address] Care Team Providers Care Bar Roller Name Role Phone NOLAN VERDUZCO Primary Care [...] Segal's Name Patient's Relationship to Policy Segal [facility] ([facility] MEDICARE ADVANTAGE [place] INDIV IDUAL - [place] Sep 21, 2023 [id number] [phone] MARVIN DUGANI S PATIENT [facility] ([facility] MEDICARE ADVANTAGE [facility] ([facility] Sep 21, 2023 [id number] [phone] DUGANMARVINI S PATIENT [place] MEDICAID [place] PLAN May 22, 2022 MEDICAI D [id number] MARVIN DUGANI S PATIENT MEDICARE ([facility] MEDICARE () PART B May 22, 2022 PART B [id number] DUGANMARVINI S PATIENT MEDICARE ([facility] MEDICARE (M) PART A Feb 19, 2009 PART A [id number] DUGAN,GENET S PATIENT MEDICARE PART D ([place]NR) MEDICARE (M) PART D Jul 22, 2022 PART D [id number] GENET DUGAN S PATIENT [facility] (WNR) MEDICARE ADVANTAGE [facility] ([place]NR) Sep 21, 2022 [id number] GENET DUGAN S PATIENT [facility] ([place]NR) MEDICARE ADVANTAGE [facility] (WNR) Sep 21, 2022 [id number] GENET DUGAN PATIENT Selected Encounter This section includes the information on record at [place] for the Encounter. Date/Time Encounter Type Encounter Description Reason Pro vider Source January 25, 2024 03:48 PM Outpatient Encounter PRIMARY CARE/MEDICINE I[facility] Encounter [...] 2024 01:00 PM [facility] Feb 26, 2024 01:15 PM [facility] - [facility]IC[facility] Mar 10, 2024 09:00 AM AMBULATORY - NONE [place] [facility] [place] [facility] Mar 18, 2024 09:30 AM AMBULATORY - MEDICINE [facility] [place] [facility] Mar 21, 2024 09:30 AM AMBULATORY - MEDICINE [facility] [place] [facility] Apr 07, 2024 08:30 AM AMBULATORY - MEDICINE [facility] [place] [facility] Apr 15, 2024 02:30 PM AMBULATORY - MEDICINE [facility] [place] [facility] Apr 27, 2024 10:00 AM AMBULATORY - MEDICINE [facility] [place] [facility] May 13, 2024 11:00 AM AMBULATORY - MEDICINE [facility] [place] [facility] May 31, 2024 10:00 AM AMBULATORY - MEDICINE [facility] [place] [facility] Jun 03, 2024 12:45 PM AMBULATORY - MEDICINE [facility] Jun 21, 2024 09:00 AM AMBULATORY - MEDICINE [facility] Advance Directives: All historical and current [...] Apr 04, 2024 ADVANCE DIRECTIVE CHAPINCITO DEE [facility] Encounter Notes: All associated encounter notes This section contains the clinical notes associated to the Encounter. Date/Time Encounter Note(s) Provider Source January 25, 2024 03:48 PM PRIMARY CARE NOTE: LOCAL TITLE: WALK-IN NOTE PRIMARY CARE (T) STANDARD TITLE: PRIMARY CARE NOTE DATE OF NOTE: JANUARY 25, 2024@15:48 ENTRY DATE: JANUARY 25, 2024@15:48:20 AUTHOR: JHOAN DUGGAN EXP COSIGNER: URGENCY: STATUS: COMPLETED <====Click to Start Advanced Medical Support Newberg presents to the Primary Care clinic with the following request: [ ]Medication Renewal/Refill [ ]Consultation with Team RN [ ]Symptoms [ X ]Other The Newberg states they are: [ ]Waiting [ X ]Not Waiting No Walk in visit scheduled with PACT Nurse [ X ] At this encounter the Newberg's demographics were verified. [ X ] At this encounter the 's Insurance information was verified. [ X ] At this encounter the below scheduled visits for the were discussed and appointment reminder card was offered. 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
--- OUTSIDE RECORDS SUMMARY | 2024-08-30 22:20 | XMS_ITS | Encounter Summary ---
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 Address [address] [place] [address] Care Team Providers Care Auto Radio Mechanic Name Role Phone NOLAN VERDUZCO Primary Care [...] Segal's Name Patient's Relationship to Policy Segal [facility] ([facility]) MEDICARE ADVANTAGE [place] INDIV IDUAL - [place] Sep 21, 2023 [id number] [phone] GENET DUGAN S PATIENT [facility] ([facility]) MEDICARE [facility] ([facility]) Sep 21, 2023 [id number] [phone] GENET DUGAN S PATIENT HUSKY MEDICAID HUSKY PLAN May 22, 2022 MEDICAI D [id number] GENET DUGAN S PATIENT MEDICARE ([facility]) MEDICARE () PART B May 22, 2022 PART B [id number] GENET DUGAN S PATIENT MEDICARE ([facility]) MEDICARE () PART A Feb 19, 2009 PART A [id number] GENET DUGAN S PATIENT MEDICARE PART D (WNR) MEDICARE (M) PART D Jul 22, 2022 PART D [id number] GENET DUGAN S PATIENT [facility] (WNR) MEDICARE ADVANTAGE [facility] (WNR) Sep 21, 2022 [id number] GENET DUGAN S PATIENT [facility] (WNR) MEDICARE ADVANTAGE [facility] (WNR) Sep 21, 2022 [id number] [phone] GENET DUGAN PATIENT Selected Encounter This section includes the information on record at [place] for the Encounter. Date/Time Encounter Type Encounter Description Reason Provider Source Feb 26, 2024 01:15 PM OFFICE O/P EST MOD 30 MIN PRIMARY CARE/MEDICINE ICD-10-CM L02.818 Cutaneous abscess of other sites RENATA MCLAIN [place] Encounter Template Text not used by [place] Assessments - Encounter Diagnoses This section includes the primary and secondary diagnoses documented for the Encounter. Date/Time Primary/Secondary Diagnosis Diagnosis Name Provider Source Feb 26, 2024 01:51 PM PRIMARY Cutaneous abscess of other sites RENATA MCLAIN Feb 26, 2024 01:51 PM SECONDARY Disorder of the skin and subcutaneous tissue, unspecified RENATA MCLAIN Plan of Treatment: Future Appointments (+ 6 [...] 10, 2024 09:00 AM AMBULATORY - NONE [place] [facility] [place] [facility] Mar 18, 2024 09:30 AM AMBULATORY - MEDICINE [place] [facility] [place] [facility] Mar 21, 2024 09:30 AM AMBULATORY - MEDICINE [place] [facility] [place] [facility] Apr 07, 2024 08:30 AM AMBULATORY - MEDICINE [place] [facility] [place] [facility] Apr 15, 2024 02:30 PM AMBULATORY - MEDICINE [place] [facility] [place] [facility] Apr 27, 2024 10:00 AM AMBULATORY - MEDICINE [place] [facility] [place] [facility] May 13, 2024 11:00 AM AMBULATORY - MEDICINE [facility] [place] [facility] May 31, 2024 10:00 AM AMBULATORY - MEDICINE [facility] [place] [facility] Jun 03, 2024 12:45 PM AMBULATORY - MEDICINE [facility] [place] [facility] Jun 21, 2024 09:00 AM AMBULATORY - MEDICINE [facility] [place] [facility] Aug 09, 2024 09:00 AM AMBULATORY - MEDICINE [facility] [place] [facility] Aug 16, 2024 12:00 PM AMBULATORY - NONE [facility] [place] [facility] Aug 22, 2024 11:20 AM AMBULATORY - MEDICINE [facility] [place] [facility] Aug 24, 2024 11:00 AM [facility] [place] Active, Pending, and Scheduled Orders This section includes a listing of several types of active, pending, and scheduled orders, including clinic medications orders, diagnostic test orders, procedure orders and consult orders; where the start date of the order is 45 days before the date of the Encounter or 45 days after the date of theEncounter. The data comes from all [place] treatment facilities. Test Date/Time Test Type Test Details Facility Name Mar 19, 2024 12:00 AM Laboratory - Chemistry Order MICROALBUMIN CREATININE RATIO PANEL URINE (RANDOM) [facility] [place] [facility] Mar 19, 2024 12:00 AM Laboratory - Chemistry Order VITAMIN B12 BLOOD (SST-SERUM) [facility] [place] [facility] Mar 19, 2024 12:00 AM Laboratory - Chemistry Order FOLATE BLOOD (SST-SERUM) [facility] [place] [facility] Mar 19, 2024 12:00 AM Laboratory - Chemistry Order VITAMIN D 25-OH (Therapy monitor) BLOOD (SST-SERUM) [facility] [place] [facility] Mar 19, 2024 12:00 AM Laboratory - Chemistry Order BASIC METABOLIC PANEL (fasting) BLOOD (SST-SERUM) [facility] [place] [facility] Mar 19, 2024 12:00 AM Laboratory - Chemistry Order LIPID PANEL FASTING BLOOD (SST-SERUM) SP [facility] [place] [facility] Mar 19, 2024 12:00 AM Laboratory - Chemistry Order LIVER FUNCTION [facility]LOOD (SST[facility]SERUM) [facility] Mar 19, 2024 12:00 AM Laboratory - Chemistry Order CBC AND DIFF (AUTO) BLOOD (LAV-BLOOD) [facility] Mar 19, 2024 12:00 AM Laboratory - Chemistry Order HEMOGLOBIN A1C PANEL BLOOD (LAV-BLOOD) [facility] Mar 19, 2024 12:00 AM Laboratory - Chemistry Order TSH BLOOD (SST-SERUM) [facility] Mar 19, 2024 12:00 AM Laboratory - Chemistry Order PSA BLOOD (SST-SERUM) [facility] Vital Signs: All taken on the encounter date This section contains inpatient and outpatient Vital Signs collected on the date of the Encounter. Date/Time Temperature Pulse Blood Pressure Respiratory Rate SP02 Pain Height Weight Body Mass Index Source Feb 26, 2024 01:38 PM 98.2 70 148/[address] [facility] [place] Social History: Smoking Status (Most current) and Tobacco Use (All prior to encounter date) This section includes the most current, and the historical, smoking and tobacco- related health factors from the [place] facility where the Encounter took place. Current Smoking Status This section includes the most current smoking, or tobacco-related health factor, from the [place] facility where the Encounter took place. Date/Time Current Smoking Status Comment Facil ity Jun 23, 2023 09:00 AM [place]-TOBACCO QUIT 15 YRS OR MORE [facility] Tobacco Use History This section includes a history of the smoking, or tobacco-related health factors, that were collected on or before the date of the Encounter. The data comes from the [place] facility where the Encounter took place. Date/Time Smoking Status/Tobacco Use Comment F acility Jun 23, 2023 09:00 AM VA-TOBACCO QUIT 15 YRS OR MORE [facility] May 01, 2022 01:30 PM VA-TOBACCO FORMER USER [facility] May 01, 2022 01:30 PM VA-TOBACCO QUIT 15 YRS OR MORE [facility] Apr 15, 2021 03:00 PM VA-TOBACCO FORMER USER [facility] Apr 15, 2021 03:00 PM [place]-TOBACCO QUIT 15 YRS OR MORE [facility] Oct 20, 2018 12:53 PM VA-TOBACCO FORMER USER [facility] Oct 20, 2018 12:53 PM VA-TOBACCO QUIT 15 YRS OR MORE [facility] Jul 03, 2017 10:33 AM QUIT TOBACCO USE > 7 YEARS AGO quit 25yrs ago [facility] February 13, 2016 08:46 AM LIFETIME NON-TOBACCO USER [facility] Advance Directives: All historical and current Section [...] Encounter Note(s) Provider Source Feb 26, 2024 01:34 PM NURSE PRACTITIONER NOTE: LOCAL TITLE: NURSE PRACTIONER/SICK VISIT STANDARD TITLE: NURSE PRACTITIONER NOTE DATE OF NOTE: FEB 26, 2024@13:34 ENTRY DATE: FEB 26, 2024@13:34:36 AUTHOR: RENATA MCLAIN EXP COSIGNER: URGENCY: STATUS: COMPLETED SICK CALL VISIT JAKE DUGAN is a 78 y/o DECLINED TO ANSWER MALE who presents to [facility] sick call with c/o Abscess right upper back x 1 week. Went to urgent care on Thursday and they did manual expression of lateral end of abscess with minimal removal of contents. Started oral ATB. Site is painful and quite large. Has multiple skin lesions he would like Dermatology to see. [place] PCP: ======= NOLAN VERDUZCO VITAL SIGNS: Blood Pressure: 148/73 (02/26/2024 13:38) Pain: 0 (01/22/2024 15:44) Patient Height: 70 in [177.8 cm] (01/22/2024 15:44) Patient Weight: 184 lb [83.46 kg] (01/22/2024 15:44) Pulse: 70 (02/26/2024 13:38) Respiration: 14 (02/26/2024 13:38) Temperature: 98.2 F [36.8 C] (02/26/2024 13:38) REVIEW OF SYSTEMS: see HPI PHYSICAL EXAMINATION: General: Well-appearing [place] in no obvious distress. Mental Status: Alert and oriented x4. Lungs: respirations easy and unlabored Integument: Large abscess right upper back measures 3.5x1 . Red, hot to touch, tender. Suspicious lesions noted to mid upper chest, left upper back, irregular borders, esteban in color with rough texture. Psych: Normal mood and affect. Normal judgment. Cooperative with exam, follows commands. ASSESSMENT/PLAN: cutaneous abscess right upper back - referral made to general surgeon catalina as site is too complicated for I&D in clinic. Continue ATB, heating pad ordered to apply moist heat to site. Tylenol ordered PRN. suspicious skin lesion - referral made to Derm for eval. MEDICATIONS reviewed with [place] FOLLOW UP: Return to clinic 3-5 days if no improvement in symptoms. UPCOMING APPOINTMENTS: No data available /mariana/ [place] CERTIFIED NURSE PRACTITIONER Signed: 02/26/2024 14:13 RENATA MCLAIN [facility]
--- OUTSIDE RECORDS SUMMARY | 2024-08-30 22:21 | XMS_ITS | Encounter Summary ---
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 Organization [place] Address [address] [place] [id number] Care Team Providers Care Port Drier Name Role Phone NOLAN VERDUZCO Primary Care [...] Segal's Name Patient's Relationship to Policy Segal [facility] ([facility]) MEDICARE ADVANTAGE [place] INDIV IDUAL - [place] Sep 21, 2023 [id number] [phone] GENTE DUGAN S PATIENT [facility] ([facility]) MEDICARE [facility] ([facility]) Sep 21, 2023 [id number] [phone] GENET DUGAN S PATIENT HUSKY MEDICAID HUSKY PLAN May 22, 2022 MEDICAI D [id number] GENET DUGAN S PATIENT MEDICARE ([facility]) MEDICARE () PART B May 22, 2022 PART B [id number] GENET DUGAN S PATIENT MEDICARE ([facility]) MEDICARE () PART A Feb 19, 2009 PART A [id number] [id number] [phone] GENET DUGAN S PATIENT MEDICARE PART D (WNR) MEDICARE (M) PART D Jul 22, 2022 PART D [id number] [phone] DUGAN,GENET S PATIENT [facility] (WNR) MEDICARE ADVANTAGE [facility] (WNR) Sep 21, 2022 [id number] [phone] DUGAN,GENET S PATIENT [facility] (WNR) MEDICARE ADVANTAGE [facility] (WNR) Sep 21, 2022 [id number] GENET DUGAN S PATIENT Selected Encounter This section includes the information on record at [place] for the Encounter. Date/Time Encounter Type Encounter Description Reason Provider Source Mar 21, 2024 09:30 AM OFFICE O/P EST MOD 30 MIN PRIMARY CARE/MEDICINE ICD-10-CM 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, unspecified LUBA,APOLI MARLIN [place] Encounter Template Text not used by [place] Assessments - Encounter Diagnoses This section includes the primary and secondary diagnoses documented for the Encounter. Date/Time Primary/Secondary Diagnosis Diagnosis Name Provider Source Mar 21, 2024 10:16 AM PRIMARY Obstructive and reflux uropathy, unspecified LUBA,HAYLEY ISAAC [facility] Mar 21, 2024 10:16 AM SECONDARY Carcinoma in situ of prostate LUBA,HAYLEY ISAAC [facility] Mar 21, 2024 10:16 AM SECONDARY Encounter for immunization CAROLA GARCIA Plan of Treatment: Future Appointments (+ 6 [...] 07, 2024 08:30 AM AMBULATORY - MEDICINE [place] [facility] [place] [facility] Apr 15, 2024 02:30 PM AMBULATORY - MEDICINE [place] [facility] [place] [facility] Apr 27, 2024 10:00 AM AMBULATORY - MEDICINE [place] [facility] [place] [facility] May 13, 2024 11:00 AM AMBULATORY - MEDICINE [place] [facility] [place] [facility] May 31, 2024 10:00 AM AMBULATORY - MEDICINE [facility] [place] [facility] Jun 03, 2024 12:45 PM AMBULATORY - MEDICINE [facility] [place] [facility] Jun 21, 2024 09:00 AM AMBULATORY - MEDICINE [facility] [place] [facility] Aug 09, 2024 09:00 AM AMBULATORY - MEDICINE [facility] [place] [facility] Aug 16, 2024 12:00 PM AMBULATORY - NONE [facility] [place] [facility] Aug 22, 2024 11:20 AM AMBULATORY - MEDICINE [facility] [place] [facility] Aug 24, 2024 11:00 AM [...] - Chemistry Order VITAMIN B12 BLOOD (SST-SERUM) SP [facility] [place] [facility] Mar 19, 2024 12:00 AM Laboratory - Chemistry Order MICROALBUMIN CREATININE RATIO PANEL URINE (RANDOM) SP [facility] [place] [facility] Mar 19, 2024 12:00 AM Laboratory - Chemistry Order VITAMIN D 25-OH (Therapy monitor) BLOOD (SST-SERUM) SP [facility] [place] [facility] Mar 19, 2024 12:00 AM Laboratory - Chemistry Order FOLATE BLOOD (SST-SERUM) [facility] [place] [facility] Mar 19, 2024 12:00 AM Laboratory - Chemistry Order BASIC METABOLIC PANEL (fasting) BLOOD (SST-SERUM) [facility] [place] [facility] Mar 19, 2024 12:00 AM Laboratory - Chemistry Order LIPID PANEL FASTING BLOOD (SST-SERUM) [facility] [place] [facility] Mar 19, 2024 12:00 AM Laboratory - Chemistry Order LIVER FUNCTION BLOOD (SST-SERUM) [facility] [place] [facility] Mar 19, 2024 12:00 AM [...] PSA BLOOD (SST-SERUM) [facility] Immunizations: All administered on the encounter date This section contains immunizations associated to the Encounter. Immunization Series Date Issued Reaction Comments HEP A, ADULT 2 Mar 21, 2024 Social History: Smoking Status (Most current) and [...] Ray ity Jun 23, 2023 09:00 AM [place]-TOBACCO QUIT 15 YRS OR MORE [facility] Tobacco Use History This section includes a history of the smoking, or tobacco-related health factors, that were collected on or before the date of the Encounter. The data comes from the [place] facility where the Encounter took place. Date/Time Smoking Status/Tobacco Use Comment F acility Jun 23, 2023 09:00 AM VA-TOBACCO QUIT 15 YRS OR MORE [facility] May 01, 2022 01:30 PM VA-TOBACCO FORMER USER [facility] May 01, 2022 01:30 PM VA-TOBACCO QUIT 15 YRS OR MORE [facility] Apr 15, 2021 03:00 PM VA-TOBACCO FORMER USER [facility] Apr 15, 2021 03:00 PM VA-TOBACCO QUIT 15 YRS OR MORE [facility] Oct 20, 2018 12:53 PM VA-TOBACCO FORMER USER [facility] Oct 20, 2018 12:53 PM VA-TOBACCO QUIT 15 YRS OR MORE [facility] Jul 03, 2017 10:33 AM QUIT TOBACCO USE > 7 YEARS AGO quit 25yrs ago [facility] February 13, 2016 08:46 AM LIFETIME NON-TOBACCO USER [facility] Advance Directives: All historical and current Section Date Range: From patient's date of to the date document was created. This section includes ALL of a patient's completed or amended VA Advance and Rescinded Directives. The entries below indicate that a directive exists for the patient, but an actual copy is not included with this document. The data comes from all [place] facilities. Date Advance Directives Provider Source Apr 04, 2024 ADVANCE DIRECTIVE CHAPINCITO DEE Doug [facility] Encounter Notes: All associated encounter notes This section contains the clinical notes associated to the Encounter. Date/Time Encounter Note(s) Provider Source Mar 21, 2024 10:30 AM PREVENTIVE MEDICIN E NURSING NOTE: LOCAL TITLE: CLINICAL REMINDERS/NURSING STANDARD TITLE: PREVENTIVE MEDICINE NURSING NOTE DATE OF NOTE: MAR 21, 2024@10:30 ENTRY DATE: MAR 21, 2024@10:31:16 AUTHOR: EM GARCIA EXP COSIGNER: URGENCY: STATUS: COMPLETED Hepatitis A Vaccine for High Risk: Administered: HEP A, ADULT Date Administered: Mar 21, 2024 09:30 Series: Series 2 Television [employer] Tester: Microtask Lot: [id number] Exp Date: Sep 07, [address] [facility]: [id number] Admin Route/Site: INTRAMUSCULAR/LEFT DELTOID Dosage: 1mL Vaccine Information Statement(s): HEPATITIS A VACCINE VIS Jul 05, 2021 (ITALIAN) Order By: Policy Administered By: Em Garcia Override Reason: decided to get this visit Combination Hepatitis A / Hepatitis B vaccine (3 dose series) COVID-19 Immunization: Refused Moderna Monovalent COVID-19 vaccine Immunization: COVID-19 (MODERNA), MRNA, LNP-S, PF, 50 MCG/0.5 ML (AGES 12+ YEARS) Refusal Reason: PATIENT DECISION Patient refuses all immunization(s) in the COVID-19 group Date Documented: 03/21/24 10:32 MED REC COMPLETED BY PROVIDER DURING VISIT. /mariana/ EM GARCIA LPN LPN Signed: 03/21/2024 10:33 EM GARCIA Mar 21, 2024 08:32 AM PHYSICIAN NOTE: LOCAL TITLE: MD NOTE STANDARD TITLE: PHYSICIAN NOTE DATE OF NOTE: MAR 21, 2024@08:32 ENTRY DATE: MAR 21, 2024@08:32:54 AUTHOR: NOLAN VERDUZCO EXP COSIGNER: URGENCY: STATUS: COMPLETED CC: 79 year old DECLINED TO ANSWER MALE SERVICE CONNECTED % - 50 HPI: Recently at the ER for urinary obstruction with requirements of an indwelling cath with appt with urologist on . Patient however at this time is occupied with legal dispute with daughter who is renting a room at his house. He is the process of wanting to sell his house. The patient would like to move back to [place]. Problem list and medications reviewed. Last Labs: Nov 2023 Active problems - Computerized Problem List is the source for the followin. Carcinoma in situ of prostate followed by [facility] 2. Olecranon bursitis 3. Loss of teeth - acquired vet needs dentures/ recurrent gum/dental infections/ empric abx Apr 2022 4. History of partial adherence to treatment Sep 2020 - noted lapses in lisinopril refills 5. Paraesthesia of lower extremity (SNOMED CT 132772044) previously on gabapentin recently with objective signs of dminished circulation to LEFT foot only initial screen for metabolic/nutritional causes of neuropathy unrevealing No show to neurology [facility], Summer 2020 No show to Vascular consult, Summer 2020 6. status post appendectomy 7. Diverticular disease normal colonoscopy August, 8. Osteoarthritis (SNOMED CT [id number]) C/S worst at C6-C7 09/06 mod OA Interphalamgeal joint right thumb 09/06 9. Generalized anxiety disorder 10. Epilepsy [place] [id number], CELINA Link OV 12-05-15 11. Essential hypertension [facility] [id number], CELINA Link OV 12-05-15 12. Atypical chest pain [place] [id number], CELINA Link OV 12-05-15 02/13/16 EKG NSR 12/30/17 EKG NSR PHYSICAL EXAMINATION/DIRECTED EXAM: BP:103/65 (03/21/2024 09:53) Resp:20 (03/21/2024 09:53) Temp:96.7 F [35.9 C] (03/21/2024 09:53) Pulse:85 (03/21/2024 09:53) WEIGHT 03/21/2024 09:53 186(84.37)[27] 01/22/2024 15:44 184(83.46)[26] 12/22/2023 10:12 176(79.83)[25] Agitated. ASSESSMENT & PLAN: 79 year old MALE SERVICE CONNECTED % - 50 [place] presents for follow-up. Majority of visit is problem solving of what appears to have escalated to patient exremely frustrated that no one can assist him despite referral to several community organizations and speaking with our social working. He has indicated that this has been upsetting him and believes this is leading to his physical health deterioration. He did promise to see the specilist on . Plan of care discussed with patient who articulates understanding. Chronic issues reviewed briefly; no changes to management unless specified above. RTC 3 mos TIME ATTESTATION: Time spent directly with the [...] of labs/studies and medication list. Upcoming Appointments: 06/03/2024 12:45 [facility]-OPHTHALMOLOGY 01/02/2025 10:00 CWM/NO/OPTOMETRY/MERHAR Med Reconciliation: Active Outpatient Medications (including Supplies): Active Outpatient Medications Status ======= 1) ACETAMINOPHEN 500MG TAB TAKE TWO TABLETS BY MOUTH ACTIVE EVERY 6 HOURS NEEDED FOR PAIN 2) CAPSAICIN 0.025% CREAM APPLY A MODERATE AMOUNT ACTIVE TOPICALLY FOUR TIMES A DAY FOR LOCALIZED PAIN (USE FOR AT LEAST 4 WEEKS FOR EFFECT) 3) CARBOXYMETHYLCELLULOSE NA 1% OPH GEL APPLY 1 DROP ACTIVE INTO EACH EYE FOUR TIMES DAILY NEEDED FOR DRY EYE 4) CEFUROXIME AXETIL 500MG TAB TAKE ONE TABLET BY MOUTH ACTIVE TWICE DAILY 5) FOLIC ACID 1MG TAB TAKE ONE TABLET BY MOUTH ONCE ACTIVE DAILY FOR INADEQUATE FOLIC ACID VITAMIN/NUTRITION SUPPLEMENT 6) KETOTIFEN 0.025% OPH SOLN INSTILL 1 DROP INTO EACH ACTIVE EYE TWICE DAILY (IF YOU WEAR CONTACT LENSES, WAIT 10 MINUTES BEFORE INSERTING LENSES) 7) LIFITEGRAST 5% OPH SOLN 0.2ML INSTILL 1 DROP INTO ACTIVE EACH EYE TWICE DAILY 8) LISINOPRIL 20MG TAB TAKE ONE TABLET BY MOUTH ONCE ACTIVE DAILY TO CONTROL BLOOD PRESSURE Active Non-VA Medications Status ======= 1) Non-VA FLUTICASONE PROP 50MCG 120D NASAL INHL 1 SPRAY ACTIVE INTO EACH NOSTRIL TWICE DAILY 9 Total Medications Medication (Local) Status AMMONIUM LACTATE 12% LOTION Directions: APPLY SMALL [...] found. /mariana/ NOLAN VERDUZCO MD PHYSICIAN Signed: 03/21/2024 10:16 NOLAN VERDUZCO [facility]
--- OUTSIDE RECORDS SUMMARY | 2024-08-30 22:29 | XMS_ITS ---
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 Organization [place] Address [address] [place] [id number] Care Team Providers Care Hha Name Role Phone NOLAN VERDUZCO Primary Care [...] Relationship to Policy Segal [facility] ([facility]) MEDICARE ADVANTAGE [place] IN[place] IDUAL - [place] Sep 21, 2023 [id number] [phone] MARVIN DUGANI S PATIENT [facility]IN [facility] ([facility]) MEDICARE ADVANTAGE [facility] ([facility]) Sep 21, 2023 [id number] [phone] DUGANMARVINI S PATIENT HUSKY MEDICAID HUSKY PLAN May 22, 2022 MEDICAI D [id number] MARVIN DUGANI S PATIENT MEDICARE ([facility]) MEDICARE () PART B May 22, 2022 PART B [id number] [phone] DUGANMARVINI S PATIENT MEDICARE ([facility]) MEDICARE (M) PART A Feb 19, 2009 PART A [id number] DUGAN,GENET S PATIENT MEDICARE PART D (WNR) MEDICARE (M) PART D Jul 22, 2022 PART D [id number] GENET DUGAN S PATIENT [facility] (WNR) MEDICARE ADVANTAGE [facility] (WNR) Sep 21, 2022 [id number] GENET DUGAN S PATIENT [facility] (WNR) MEDICARE ADVANTAGE MCR (WNR) Sep 21, 2022 [id number] [phone] GENET DUGAN PATIENT Selected Encounter This section includes the information on record at [place] for the Encounter. Date/Time Encounter Type Encounter Description Reason Pro vider Source Jul 07, 2024 12:00 AM Outpatient Encounter COMMUNITY CARE CONSULT IHE Encounter Template Text not used by [place] Plan of Treatment: Future Appointments (+ 6 months) and Future Tests (+/- 45 days) The Plan of Treatment section includes future care activities for the patient from all [place] treatmentfacilities. This section includes future appointments and future orders which are active, pending or scheduled. Future Appointments This section includes appointments that were scheduled to occur 6 months from the date of the Encounter, up to a maximum of 20 appointments. The data comes from all [place] treatment facilities. Appointment Date/Time Appointment Type Appointme nt Facility Name Aug 09, 2024 09:00 AM AMBULATORY - MEDICINE [facility] [place] [facility] Aug 16, 2024 12:00 PM AMBULATORY - [facility] [place] [facility] Aug 22, 2024 11:20 AM AMBULATORY - MEDICINE [facility] [place] [facility] Aug 24, 2024 11:00 AM [facility] Dec 13, 2024 01:30 PM AMBULATORY - MEDICINE [facility] Jan 02, 2025 10:00 AM [facility] Active, Pending, and Scheduled Orders This section includes a listing of several types of active, pending, and scheduled orders, including clinic medications orders, diagnostic test orders, procedure orders and consult orders; where the start date of the order is 45 days before the date of the Encounter or 45 days after the date of theEncounter. The data comes from all [place] treatment [facility]. Test Date/Time Test Type Test Details Facility Name Aug 09, 2024 09:40 AM Consult Order COMMUNITY CARE-UROLOGY Cons Vice President Risk Management's Choice [facility] Advance Directives: All historical and current Section Date Range: From patient's date of to the date document was created. This section includes ALL of a patient's completed or amended [place] Advance and Rescinded Directives. The entries below indicate that a directive exists for the patient, but an actual copy is not included with this document. The data comes from all [place] facilities. Date Advance Directives Provider Source Apr 04, 2024 ADVANCE DIRECTIVE CHAPINCITO DEE [facility] Encounter Notes: All associated encounter notes This section contains the clinical notes associated to the Encounter. Date/Time Encounter Note(s) Provider Source Jul 07, 2024 12:00 AM NONVA CONSULT: LOCAL TITLE: COMMUNITY CARE-CONSULT RESULT NOTE STANDARD TITLE: NONVA CONSULT DATE OF NOTE: JUL 07, 2024 ENTRY DATE: AUG 02, 2024@08:12:05 AUTHOR: SUNITA FITCH EXP COSIGNER: URGENCY: STATUS: COMPLETED VistA Imaging - Scanned Document SCANNED DOCUMENT SIGNATURE NOT REQUIRED Electronically Filed: 08/02/2024 by: SUNITA MCDONOUGH [facility]
--- OUTSIDE RECORDS SUMMARY | 2024-08-30 22:31 | XMS_ITS | Encounter Summary ---
Author Name [place] Address [address] [place] [id number] Care Team Providers Care Geology Instructor Name Role Phone NOLAN VERDUZCO Primary Care [...] Segal's Name Patient's Relationship to Policy Segal [facility] ([facility]) MEDICARE ADVANTAGE [place] INDIV IDUAL - [place] Sep 21, 2023 [id number] [phone] GENET DUGAN S PATIENT [facility] ([facility]) MEDICARE ADVANTAGE [facility] ([facility]) Sep 21, 2023 [id number] [phone] MARVIN DUGANI S PATIENT [place]KY MEDICAID HUSKY PLAN May 22, 2022 MEDICAI D [id number] GENET DUGAN S PATIENT MEDICARE ([facility]) MEDICARE () PART B May 22, 2022 PART B [id number] MARVIN DUGANI S PATIENT MEDICARE ([facility]) MEDICARE (M) PART A Feb 19, 2009 PART A [id number] DUGAN,GENET S PATIENT MEDICARE PART D (WNR) MEDICARE (M) PART D Jul 22, 2022 PART D [id number] [phone] GENET DUGAN PATIENT [facility] (WNR) MEDICARE ADVANTAGE [facility] (WNR) Sep 21, 2022 [id number] GENET DUGAN PATIENT [facility] (WNR) MEDICARE ADVANTAGE MCR (WNR) Sep 21, 2022 [id number] [phone] GENET DUGAN PATIENT Selected Encounter This section includes the information on record at [place] for the Encounter. Date/Time Encounter Type Encounter Description Reason Provider Source Aug 22, 2024 11:20 AM FIT SPECTACLES BIFOCAL OPTOMETRY ICD-10-CM Z46.0 Encounter for fit/adjst of spectacles and contact lenses JOHNNY UMANA [facility] Encounter Template Text not used by [place] Assessments - Encounter Diagnoses This section includes the primary and secondary diagnoses documented for the Encounter. Date/Time Primary/Secondary Diagnosis Diagnosis Name Provider Source Aug 22, 2024 11:30 AM PRIMARY Encounter for fit/adjst of spectacles and contact lenses J[facility]NNY UMANA [facility] Plan of Treatment: Future Appointments (+ 6 months) and Future Tests (+/- 45 days) The Plan of Treatment section includes future care activities for the patient from all [place] treatmentfacilities. This section includes future appointments and future orders which are active, pending or scheduled. Future Appointments This section includes appointments that were scheduled to occur 6 months from the date of the Encounter, up to a maximum of 20 appointments. The data comes from all [place] treatment facilities. Appointment Date/Time Appointment Type Appointme nt Facility Name Aug 24, 2024 11:00 AM AMBULATORY - MEDICINE [facility] Dec 13, 2024 01:30 PM AMBULATORY - MEDICINE [facility] Jan 02, 2025 10:00 AM [facility] Active, Pending, and Scheduled Orders This section includes a listing of several types of active, pending, and scheduled orders, including clinic medications orders, diagnostic test orders, procedure orders and consult orders; where the start date of the order is 45 days before the date of the Encounter or 45 days after the date of theEncounter. The data comes from all [place] treatment facilities. Test Date/Time Test Type Test Details Facility Name Aug 09, 2024 09:40 AM Consult Order COMMUNITY CARE-UROLOGY Cons Customer Contact Sales Associate's Choice [facility] Lab Results: +/- 30 days of the encounter This section includes the Chemistry and Hematology Lab Results on record with [place] for the patient. Radiology Reports and Pathology Reports are provided separately, in subsequent sections. Lab Results This section contains the Chemistry/Hematology Results that were resulted 30 days before or 30 daysafter the date of the Encounter. Date/Time Source Result Type Result - Unit Interpretation Reference Range Comment Aug 24, 2024 11:28 AM [place] CBC AND DIFF (AUTO) Specimen Type: BLOOD No comment entered. Ordering Provider: ROWENA ROY Report Released Date/Time: Aug 24, 2024 11:07 AM Reporting Lab: [facility] [address] [address] Performing Lab: [facility] [address] [address] WBC 8.84 10*3/uL 4.50-11.00 RBC 4.72 10*6/uL [...] 10*3/uL 0.00-0.00 Aug 24, 2024 11:28 AM [facility] MICROSCOPIC AUTOMATED, URINE Specimen Type: URINE Comment: If Glucose = >500 and Ketones are positive, please alert the Physician. Ordering Provider: MONICA VERDUZCO Report Released Date/Time: Aug 09, 2024 09:43 AM Reporting Lab: [address] [address] Performing Lab: [address] [address] UA WBC 0-5 /[HPF] 0-5 UA BACTERIA 1+ /[HPF] NoneObs UA TRIPLE PHOSPHATE CRYSTALS MODERATE /[HPF] Not Established UA RBC 6-10 /[HPF] H 0-3 Aug 24, 2024 11:28 AM [facility] URINALYSIS Specimen Type: URINE Comment: If Glucose = >500 and Ketones are positive, please alert the Physician. Ordering Provider: MONICA VERDUZCO Report Released Date/Time: Aug 09, 2024 09:43 AM Reporting Lab: [address] [address] Performing Lab: [address] [address] UA COLOR Light-Brown Yellow UA APPEARANCE Turbid Clear UA GLUCOSE Normal mg/dL Negative UA KETONES NEGATIVE mg/dL Negative UA BLOOD LARGE mg/dL Negative UA PROTEIN 100 mg/dL Negative UA NITRITE NEGATIVE mg/dL Negative UA BILIRUBIN NEGATIVE mg/dL Negative UA SPECIFIC GRAVITY 1.007 L 1.016-1.022 UA pH 8.5 5.0-9.0 UA UROBILINOGEN Normal mg/dL <2.0 UA LEUKOCYTE LARGE Negative Aug 08, 2024 10:59 AM [facility] VITAMIN D 25-OH (Therapy monitor) Specimen [...] For additional information, please refer to http://educatio n.[employer].3nder/faq/FAQ 199 (This link is being provided for informational/ educational purposes only.) This test was developed and its analytical performance characteristics have been determined by [employer] [place], [place]. It has not been cleared or approved by the U.S. Food and Drug Administration. This assay has been validated pursuant to the CLIA regulations and is used for clinical purposes. This test was developed and its analytical performance characteristics have been determined by [employer] [place], [place]. It has not been cleared or approved by the U.S. Food and Drug Administration. This assay has been validated pursuant to the CLIA regulations and is used for clinical purposes. Test Performed by [facility], [employer] [facility], [address] [place] [address] Dov Bahena M.D., Ph.D., Director of Laboratories , CLIA [id number] TEST PERFORMED AT: , Ordering Provider: MONICA VERDUZCO Report Released Date/Time: Aug 08, 2024 10:54 AM Reporting Lab: [facility] [address] [address] Performing Lab: [facility] [address] [address] VITAMIN D, 25-OH, TOTAL 51 ng/mL 30-100 VITAMIN D, 25-OH, D3 51 ng/mL VITAMIN D, 25-OH, D2 <4 ng/mL Aug 08, 2024 10:59 AM [facility] FOLATE (WROX) Specimen Type: SERUM No comment entered. Ordering Provider: MONICA VERDUZCO Report Released Date/Time: Aug 08, 2024 10:54 AM Reporting [facility] [place] [facility] [address] [address] Performing Lab: [place] [facility] [address] [facility] [address] FOLATE (WROX) 4.07 ng/mL L >5.2 Aug 08, 2024 10:59 AM [facility] MICROALBUMIN CREATININE RATIO PANEL Specimen Type: URINE No comment entered. Ordering Provider: MONICA VERDUZCO Report Released Date/Time: Aug 08, 2024 10:54 AM Reporting Lab: [place] [facility] [address] [address] Performing Lab: [facility] [address] [address] MICROALBUMIN/ CREATININE RATIO 354.2 mg/g H 0-29.9 MICROALBUMIN, QUANTITATIVE 103.3 mg/dL RR UNAVAIL CREATININE URINE 291.68 mg/dL Aug 08, 2024 10:59 AM [facility] VITAMIN B12 Specimen Type: SERUM No comment entered. Ordering Provider: MONICA VERDUZCO Report Released Date/Time: Aug 08, 2024 10:54 AM Reporting Lab: [facility] [address] [address] Performing Lab: [facility] [address] [address] VITAMIN B12 1849 pg/mL H 200-900 Aug 08, 2024 10:59 AM [facility] LIPID PANEL FASTING Specimen Type: SERUM No comment entered. Ordering Provider: MONICA VERDUZCO Report Released Date/Time: Aug 08, 2024 10:54 AM Reporting Lab: [facility] [address] [address] Performing Lab: [facility]ITALRTAYLOR [facility]ILITYTRN [facility] [address] [address] CHOLESTEROL 178 mg/dL TRIGLYCERIDE 97 mg/dL 0-150 LDL calculated 97 mg/dL 0-129 CHOL/HDL 2.9 HDL CHOLESTEROL 62 mg/dL H 40-60 Aug 08, 2024 10:59 AM [facility] BASIC METABOLIC PANEL (fasting) Specimen Type: SERUM No comment entered. Ordering Provider: MONICA VERDUZCO Report Released Date/Time: Aug 08, 2024 10:54 AM Reporting Lab: [facility] [address] [address] Performing Lab: [facility] [address] [address] UREA NITROGEN 22 mg/dL 7-25 GLUCOSE 91 mg/dL 65-100 SODIUM 138 mmol/L 135-145 POTASSIUM 4.8 mmol/L 3.5-5.0 CHLORIDE 105 mmol/L 100-110 CO2 25 meq/L 20-30 CREATININE, Serum 0.99 mg/dL 0.50-1.40 eGFR(CKD-EPI 2020) 77 mL/min >60 Aug 08, 2024 10:59 AM [facility] HEMOGLOBIN A1C PANEL Specimen Type: BLOOD [...] Aug 08, 2024 10:54 AM Reporting Lab: [facility] [address] [address] Performing Lab: [address] [address] HEMOGLOBIN A1C 5.2 4.0-5.6 Aug 08, 2024 10:59 AM [facility] LIVER FUNCTION Specimen Type: SERUM No comment entered. Ordering Provider: MONICA VERDUZCO Report Released Date/Time: Aug 08, 2024 10:54 AM Reporting Lab: [address] [address] Performing Lab: [facility] [address] [address] PROTEIN,TOTAL 6.7 g/dL 6.0-8.3 ALBUMIN 3.4 g/dL L 3.5-5.0 ALKALINE PHOSPHATASE 151 U/L H 40-150 AST 17 U/L 5-34 ALT 8 U/L BILIRUBIN, TOTAL 0.5 mg/dL 0.2-1.2 Aug 08, 2024 10:59 AM [facility] TSH Specimen Type: SERUM No comment entered. Ordering Provider: MONICA VERDUZCO Report Released Date/Time: Aug 08, 2024 10:54 AM Reporting Lab: [address] [address] Performing Lab: [address] [address] TSH 1.93 u[IU]/mL 0.35-5.00 Aug 08, 2024 10:59 AM [facility] PSA Specimen Type: SERUM No comment entered. Ordering Provider: MONICA VERDUZCO Report Released Date/Time: Aug 08, 2024 10:54 AM Reporting Lab: [facility] [address] [address] Performing Lab: [address] [address] PSA 30.59 ng/mL H 0.00-4.00 Aug 08, 2024 10:59 AM [facility] CBC AND DIFF (AUTO) Specimen Type: BLOOD No comment entered. Ordering Provider: MONICA VERDUZCO Report Released Date/Time: Aug 08, 2024 10:54 AM Reporting Lab: [facility] [address] [address] Performing Lab: [facility] [address] [address] WBC 7.81 10*3/uL 4.50-11.00 RBC 4.88 10*6/uL [...] ALL of a patient's completed or amended [place] Advance and Rescinded Directives. The entries below indicate that a directive exists for the patient, but an actual copy is not included with this document. The data comes from all [place] facilities. Date Advance Directives Provider Source Apr 04, 2024 ADVANCE DIRECTIVE CHAPINCITO DEE [facility] Radiology Reports: +/- 30 [...] the Encounter. The data comes from all [place] treatment facilities. Date/Time Radiology Report Provider Source Aug 16, 2024 02:[address] ABDOMEN AND PELVIS WITH CONTRAST: JAKE DUGAN [id number] [phone] M Exm Date: AUG 16, 2024@14:04 Req Phys: LUBA,NOLAN Pat Loc: CWM/SO/PACT 9 (Req'g Loc) Img Loc: NHM/CT Service: Unknown [place] [facility] [facility] [place] [address] (Case [id number] COMPLETE) CT ABDOMEN AND PELVIS WITH CONTRA(CT Detailed) CPT:44937 Contrast Media : Non-ionic Iodinated Reason for Study: prostate CA Clinical History: Report Status: Verified Date Reported: AUG 16, 2024 Date Verified: AUG 16, 2024 Joss House Keeper E-Sig: Report: CT ABDOMEN AND PELVIS WITH CONTRAST HISTORY: prostate CA COMPARISON: 03/14/2024 TECHNIQUE: CT of the abdomen and pelvis with multiplanar reformats was performed at the local [place] facility. A contrast-enhanced series was obtained in the portal venous phase. 350 images were received by the [place] National Teleradiology Program (NTP) for interpretation. RADIATION [...] tumor infiltration. READING PHYSICIAN: Kwabena Perez M.D. -[id number] 08/16/2024 20:18 [facility] National Teleradiology Program [phone] (For Medical Practitioner Use Only) Attention Patients / Veterans: If you have questions or concerns about these test results, please contact your ordering provider or primary care team. Primary Diagnostic Code: POSSIBLE MALIGNANCY Primary Interpreting Staff: RADIOLOGY,OUTSIDE SERVICE, Staff Physician / RADIOLOGY,OUTSIDE SERVICE [facility] Pathology Reports: +/- 30 days of [...] the Encounter. The data comes from all [place] treatment facilities. Date/Time Pathology Report Provider Source Aug 24, 2024 11:28 AM LR MICROBIOLOGY RE PORT: Reporting Lab: [facility] [CLIA# [id number]] [address] [place] [phone] Accession [UID]: [id number] [[id number]] Received: Aug 24, 2024@11:28 Collection sample: URINE CLEAN CATCH Collection date: Aug 24, 2024 11:28 Site/Specimen: URINE Provider: NOLAN VERDUZCO Comment on specimen: POSITIVE CULTURE RESULTS MAY NOT REPRESENT CLINICAL INFECTION. CONSIDER NEED FOR ANTIBIOTICS IN THE CONTEXT OF UTI SYMPTOMS. Test(s) ordered: URINE CULTURE(MWROX).......... completed: Aug 29, 2024 08:33 * BACTERIOLOGY FINAL REPORT => Aug 29, 2024 08:32 TECH CODE: [id number] CULTURE RESULTS: 1. KLEBSIELLA OXYTOCA/RAOULTELLA ORNITHINOLYTICA - [...] Performing Laboratory: Klebsiella Oxytoca/raoultella Ornithinolytica Performed By: [facility] [CLIA# [id number]] [address] [place] [address] Pseudomonas Aeruginosa Performed By: [facility] [CLIA# [id number]] [address] [place] [address] Bact Report Remark #1 Performed By: [facility] [CLIA# [id number]] [address] [place] [address] Bact Report Remark #2 Performed By: [facility] [CLIA# [id number]] [address] [place] [address] ENRIQUETA FLORES [place] Encounter Notes: All associated encounter notes This section contains the clinical notes associated to the Encounter. Date/Time Encounter Note(s) Provider Source Aug 22, 2024 11:26 AM OPTOMETRY NOTE: LOCAL TITLE: OPTOMETRY NOTE STANDARD TITLE: OPTOMETRY NOTE DATE OF NOTE: AUG 22, 2024@11:26 ENTRY DATE: AUG 22, 2024@11:26:22 AUTHOR: JOHNNY UMANA EXP COSIGNER: URGENCY: STATUS: COMPLETED Patient came in today with outside RX Community care consult( Cataract surgery) [facility] [address] [facility] [address] Exam date: 08/11/2024 EXp date: 08/11/2026 OD: [place] -0.75 x085 OS: +1.00 -1.25 x080 ADD:+2.50 SEG ht:12 Frame: FX8 Coffee 53-19-145 Bifocal/Photochromic Have it shipped here patient is going to DC in a 1 week 1/2 and will call here to let us know where to send them. /mariana/ JOHNNY DEYLON [facility] TECHINICIAN Signed: 08/22/2024 11:30 JOHNNY UMANA [facility]
--- OUTSIDE RECORDS SUMMARY | 2024-08-30 22:31 | XMS_ITS | Encounter Summary ---
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 Address [address] [place] [id number] Care Team Providers Care Needle Loom Setter Name Role Phone NOLAN VERDUZCO Primary [...] Segal's Name Patient's Relationship to Policy Segal [facility] ([place]) MEDICARE ADVANTAGE [place] INDIV IDUAL - [place] Sep 21, 2023 [id number] [phone] GENET DUGAN S [facility] ([place]) Sep 21, 2023 [id number] [phone] GENET DUGAN S PATIENT [place] MEDICAID [place] PLAN May 22, 2022 MEDICAI D [id number] GENET DUGAN S PATIENT MEDICARE ([place]) MEDICARE () PART B May 22, 2022 PART B [id number] GENET DUGAN S PATIENT MEDICARE ([place]) MEDICARE () PART A Feb 19, 2009 PART A [id number] GENET DUGAN S PATIENT MEDICARE PART D ([place]) MEDICARE ([place]) PART D Jul 22, 2022 PART D [id number] MARVIN DUGANI S PATIENT [facility] ([place]) MEDICARE ADVANTAGE [facility] ([place]) Sep 21, 2022 [id number] MARVIN DUGANI S PATIENT [facility] MCR ([place]) MEDICARE ADVANTAGE MCR ([place]) Sep 21, 2022 [id number] [phone] GENET DUGAN S PATIENT Selected Encounter This section includes the information on record at [place] for the Encounter. 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 Date/Time Primary/Secondary Diagnosis Diagnosis Name Provider Source Aug 24, 2024 02:29 PM PRIMARY Carcinoma in situ of prostate ROWENA ROY Aug 24, 2024 02:29 PM SECONDARY Bladder-neck obstruction ROWENA ROY Plan of Treatment: Future Appointments (+ 6 [...] 01:30 PM AMBULATORY - MEDICINE [place] Jan 02, 2025 10:00 AM AMBULATORY - MEDICINE [place] [facility] [place] [facility] Active, Pending, and Scheduled Orders This section [...] 09:40 AM Consult Order COMMUNITY CARE-UROLOGY Cons [employer] Deal[employer] [facility] Lab Results: +/- 30 days of [...] Range Comment Aug 24, 2024 11:28 AM [facility] CBC AND DIFF (AUTO) Specimen Type: BLOOD No comment entered. Ordering Provider: ROWENA ROY Report Released Date/Time: Aug 24, 2024 11:07 AM Reporting Lab: [facility] [address] [facility] [address] Performing Lab: [facility] [address] [facility] [address] WBC 8.84 10*3/uL 4.50-11.00 RBC 4.72 10*6/uL [...] 10*3/uL 0.00-0.00 Aug 24, 2024 11:28 AM [facility] MICROSCOPIC AUTOMATED, URINE Specimen Type: URINE Comment: If Glucose = >500 and Ketones are positive, please alert the Physician. Ordering Provider: MONICA VERDUZCO Report Released Date/Time: Aug 09, 2024 09:43 AM Reporting Lab: [address] [address] Performing Lab: [address] [address] UA WBC 0-5 /[HPF] 0-5 UA BACTERIA 1+ /[HPF] NoneObs UA TRIPLE PHOSPHATE CRYSTALS MODERATE /[HPF] Not Established UA RBC 6-10 /[HPF] H 0-3 Aug 24, 2024 11:28 AM [facility] URINALYSIS Specimen Type: URINE Comment: If Glucose = >500 and Ketones are positive, please alert the Physician. Ordering Provider: MONICA VERDUZCO Report Released Date/Time: Aug 09, 2024 09:43 AM Reporting Lab: [address] [address] Performing Lab: [address] [address] UA COLOR Light-Brown Yellow UA APPEARANCE Turbid Clear UA GLUCOSE Normal mg/dL Negative UA KETONES NEGATIVE mg/dL Negative UA BLOOD LARGE mg/dL Negative UA PROTEIN 100 mg/dL Negative UA NITRITE NEGATIVE mg/dL Negative UA BILIRUBIN NEGATIVE mg/dL Negative UA SPECIFIC GRAVITY 1.007 L 1.016-1.022 UA pH 8.5 5.0-9.0 UA UROBILINOGEN Normal mg/dL <2.0 UA LEUKOCYTE LARGE Negative Aug 08, 2024 10:59 AM [facility] VITAMIN D 25-OH (Therapy monitor) Specimen [...] For additional information, please refer to http://educatio [email or web address].Trada/faq/FAQ 199 (This link is being provided for informational/ educational purposes only.) This test was developed and its analytical performance characteristics have been determined by [employer] [place]. It has not been cleared or approved by the U.S. Food and Drug Administration. This assay has been validated pursuant to the CLIA regulations and is used for clinical purposes. This test was developed and its analytical performance characteristics have been determined by [employer] [place]. It has not been cleared or approved by the U.S. Food and Drug Administration. This assay has been validated pursuant to the CLIA regulations and is used for clinical purposes. Test Performed by [facility], [facility], [address] [place] [address] Dov Bahena M.D., Ph.D., Director of Laboratories , CLIA [id number] TEST PERFORMED AT: , Ordering Provider: MONICA VERDUZCO Report Released Date/Time: Aug 08, 2024 10:54 AM Reporting Lab: [facility] [address] [facility] [address] Performing Lab: [facility] [address] [address] VITAMIN D, 25-OH, TOTAL 51 ng/mL 30-100 VITAMIN D, 25-OH, D3 51 ng/mL VITAMIN D, 25-OH, D2 <4 ng/mL Aug 08, 2024 10:59 AM [facility] FOLATE (WROX) Specimen Type: SERUM No comment entered. Ordering Provider: MONICA VERDUZCO Report Released Date/Time: Aug 08, 2024 10:54 AM Reporting Lab: [facility] [address] [facility] [address] Performing Lab: [facility] [address] [facility] [address] FOLATE (WROX) 4.07 ng/mL L >5.2 Aug 08, 2024 10:59 AM [facility] MICROALBUMIN CREATININE RATIO PANEL Specimen Type: URINE No comment entered. Ordering Provider: MONICA VERDUZCO Report Released Date/Time: Aug 08, 2024 10:54 AM Reporting Lab: [facility] [address] [facility] [address] Performing Lab: [facility] [address] [facility] [address] MICROALBUMIN/ CREATININE RATIO 354.2 mg/g H 0-29.9 MICROALBUMIN, QUANTITATIVE 103.3 mg/dL RR UNAVAIL CREATININE URINE 291.68 mg/dL Aug 08, 2024 10:59 AM [facility] VITAMIN B12 Specimen Type: SERUM No comment entered. Ordering Provider: MONICA VERDUZCO Report Released Date/Time: Aug 08, 2024 10:54 AM Reporting Lab: [facility] [address] [facility] [address] Performing Lab: [facility] [address] [facility] [address] VITAMIN B12 1849 pg/mL H 200-900 Aug 08, 2024 10:59 AM [facility] LIPID PANEL FASTING Specimen Type: SERUM No comment entered. Ordering Provider: MONICA VERDUZCO Report Released Date/Time: Aug 08, 2024 10:54 AM Reporting Lab: [facility] [address] [facility] [address] Performing Lab: [facility] [address] [facility] [address] CHOLESTEROL 178 mg/dL TRIGLYCERIDE 97 mg/dL 0-150 LDL calculated 97 mg/dL 0-129 CHOL/HDL 2.9 HDL CHOLESTEROL 62 mg/dL H 40-60 Aug 08, 2024 10:59 AM [facility] BASIC METABOLIC PANEL (fasting) Specimen Type: SERUM No comment entered. Ordering Provider: MONICA VERDUZCO Report Released Date/Time: Aug 08, 2024 10:54 AM Reporting Lab: [facility] [address] [facility] [address] Performing Lab: [facility] [address] [facility] [address] UREA NITROGEN 22 mg/dL 7-25 GLUCOSE 91 mg/dL 65-100 SODIUM 138 mmol/L 135-145 POTASSIUM 4.8 mmol/L 3.5-5.0 CHLORIDE 105 mmol/L 100-110 CO2 25 meq/L 20-30 CREATININE, Serum 0.99 mg/dL 0.50-1.40 eGFR(CKD-EPI 2020) 77 mL/min >60 Aug 08, 2024 10:59 AM [facility] HEMOGLOBIN A1C PANEL Specimen Type: BLOOD [...] Aug 08, 2024 10:54 AM Reporting Lab: [address] [address] Performing Lab: [address] [address] HEMOGLOBIN A1C 5.2 4.0-5.6 Aug 08, 2024 10:59 AM [facility] LIVER FUNCTION Specimen Type: SERUM No comment entered. Ordering Provider: MONICA VERDUZCO Report Released Date/Time: Aug 08, 2024 10:54 AM Reporting Lab: [facility] [address] [facility] [address] Performing Lab: [address] [address] PROTEIN,TOTAL 6.7 g/dL 6.0-8.3 ALBUMIN 3.4 g/dL L 3.5-5.0 ALKALINE PHOSPHATASE 151 U/L H 40-150 AST 17 U/L 5-34 ALT 8 U/L BILIRUBIN, TOTAL 0.5 mg/dL 0.2-1.2 Aug 08, 2024 10:59 AM [facility] TSH Specimen Type: SERUM No comment entered. Ordering Provider: MONICA VERDUZCO Report Released Date/Time: Aug 08, 2024 10:54 AM Reporting Lab: [facility] [address] [address] Performing Lab: [address] [address] TSH 1.93 u[IU]/mL 0.35-5.00 Aug 08, 2024 10:59 AM [facility] PSA Specimen Type: SERUM No comment entered. Ordering Provider: MONICA VERDUZCO Report Released Date/Time: Aug 08, 2024 10:54 AM Reporting Lab: [facility] [address] [address] Performing Lab: [facility] [address] [address] PSA 30.59 ng/mL H 0.00-4.00 Aug 08, 2024 10:59 AM [facility] CBC AND DIFF (AUTO) Specimen Type: BLOOD No comment entered. Ordering Provider: MONICA VERDUZCO Report Released Date/Time: Aug 08, 2024 10:54 AM Reporting Lab: [address] [address] Performing Lab: [address] [address] WBC 7.81 10*3/uL 4.50-11.00 RBC 4.88 10*6/uL [...] 0.0 0.0-0.0 NRBC, ABS 0.00 10*3/uL 0.00-0.00 Vital Signs: All taken on the encounter date This section contains inpatient and outpatient Vital Signs collected on the date of the Encounter. Date/Time Temperature Pulse Blood Pressure Respiratory Rate SP02 Pain Height Weight Body Mass Index Source Aug 24, 2024 12:29 PM 183.4 26 [place] Aug 24, 2024 12:28 PM 68 154/78 20 97 0 70 [facility] Social History: Smoking Status (Most current) [...] 31, 2024 10:00 AM [place]-TO[place]AC[place] NEVER USED [facility] Tobacco Use History This section includes a history of the smoking, or tobacco-related health factors, that were collected on or before the date of the Encounter. The data comes from the [place] facility where the Encounter took place. Date/Time Smoking Status/Tobacco Use Comment F acility Jun 23, 2023 09:00 AM [place]-TO[place]ACCO FORMER USER [facility] Jun 23, 2023 09:00 AM VA-TOBACCO QUIT 15 YRS OR MORE [facility] May 01, 2022 01:30 PM VA-TOBACCO FORMER USER [facility] May 01, 2022 01:30 PM VA-TOBACCO QUIT 15 YRS OR MORE [facility] Apr 15, 2021 03:00 PM VA-TOBACCO FORMER USER [facility] Apr 15, 2021 03:00 PM VA-TOBACCO QUIT 15 YRS OR MORE [facility] Oct 20, 2018 12:53 PM VA-TOBACCO FORMER USER [facility] Oct 20, 2018 12:53 PM VA-TOBACCO QUIT 15 YRS OR MORE [facility] Jul 03, 2017 10:33 AM QUIT TOBACCO USE > 7 YEARS AGO quit 25yrs ago [facility] February 13, 2016 08:46 AM LIFETIME NON-TOBACCO USER [facility] Advance Directives: All historical and current Section Date Range: From patient's date of to the date document was created. This section includes ALL of a patient's completed or amended [place] Advance and Rescinded Directives. The entries below indicate that a directive exists for the patient, but an actual copy is not included with this document. The data comes from all [facility]. Date Advance Directives Provider Source [...] ABDOMEN AND PELVIS WITH CONTRAST: JAKE DUGAN [id number] M Exaguilar Date: AUG 16, 2024@14:04 Req Phys: LUBA,NOLAN Pat Loc: CWM/SO/PACT 9 (Req'g Loc) Img Loc: NHM/CT Service: Unknown [place] [facility] [place] [facility] [place] [address] (Case [id number] COMPLETE) CT ABDOMEN AND PELVIS WITH CONTRA(CT Detailed) CPT:37281 Contrast Media : Non-ionic Iodinated Reason for Study: prostate CA Clinical History: Report Status: Verified Date Reported: AUG 16, 2024 Date Verified: AUG 16, 2024 Executive Producer E-Sig: Report: CT ABDOMEN AND PELVIS WITH [...] tumor infiltration. READING PHYSICIAN: Kwabena Perez M.D. -[phone] 08/16/2024 20:18 [facility] National Teleradiology Program [phone] (For Medical Practitioner Use Only) Attention Patients / Veterans: If you have questions or concerns about these test results, please contact your ordering provider or primary care team. Primary Diagnostic Code: POSSIBLE MALIGNANCY Primary Interpreting Staff: RADIOLOGY,OUTSIDE SERVICE, Staff Physician / RADIOLOGY,OUTSIDE SERVICE [facility] Pathology Reports: +/- 30 days of [...] AM LR MICROBIOLOGY RE PORT: Reporting Lab: [facility] [CLIA# [id number]] [address] [place] [id number] Accession [UID]: [id number] [[id number]] Received: Aug 24, 2024@11:28 Collection sample: URINE CLEAN CATCH Collection date: Aug 24, 2024 11:28 Site/Specimen: URINE Provider: NOLAN VERDUZCO Comment on specimen: POSITIVE CULTURE RESULTS MAY NOT REPRESENT CLINICAL INFECTION. CONSIDER NEED FOR ANTIBIOTICS IN THE CONTEXT OF UTI SYMPTOMS. Test(s) ordered: URINE CULTURE(MWROX).......... completed: Aug 29, 2024 08:33 * BACTERIOLOGY FINAL REPORT => Aug 29, 2024 08:32 [facility] CODE: [id number] CULTURE RESULTS: 1. KLEBSIELLA OXYTOCA/RAOULTELLA ORNITHINOLYTICA - [...] Performing Laboratory: Klebsiella Oxytoca/raoultella Ornithinolytica Performed By: [facility] [CLIA# [id number]] [address] [place] [address] Pseudomonas Aeruginosa Performed By: [facility] [CLIA# [id number]] [address] [place] [address] Bact Report Remark #1 Performed By: [facility] [CLIA# [id number]] [address] [place] [address] Bact Report Remark #2 Performed By: [facility] [CLIA# [id number]] [address] [place] [address] ENRIQUETA FLORES [facility] Encounter Notes: All associated encounter notes This section contains the clinical notes associated to the Encounter. Date/Time Encounter Note(s) Provider Source Aug 25, 2024 04:12 PM ADDENDUM: LOCAL TITLE: Addendum STANDARD TITLE: ADDENDUM DATE OF NOTE: AUG 25, 2024@16:12:20 ENTRY DATE: AUG 25, 2024@16:12:20 AUTHOR: ROWENA ROY EXP COSIGNER: URGENCY: STATUS: COMPLETED The patient would like to switch to PACT 1. Please change Clay. AMSA: Please contact the patient and establish an appointment within the next 90 to 120 days. Thank you /es/ ROWENA ROY NP NURSE PRACTITIONER Signed: 08/25/2024 16:13 Receipt Acknowledged By: 08/30/2024 11:09 /es/ ERIC BARTON ADVANCE FLAG SIGNALMAN * AWAITING SIGNATURE * KYLE TAFOYA 08/25/2024 16:19 /es/ ISABEL FREDERICK LPN CLASSIFIER TENDER ======== --- Original Document --- 08/24/24 NURSE PRACTITIONER OUTPATIENT NOTE: PRIMARY CARE VISIT JAKE DUGAN, is a 79 yo DECLINED TO ANSWER MALE who [place] [facility] the [place] [facility]. TYPE OF VISIT: Face to face 79-year-old with ZECHARIAH, epilepsy, HTN, MILTON and untreated prostate cancer diagnosed in 2021 presented to the outpatient clinic in follow-up for CT abdomen/pelvis. CT abd/pelvis from 08/16/2024 with findings suspicious for widespread pulmonary metastasis and new adenopathy in the abdomen and pelvis compatible with metastatic disease and new dilatation of the urethra which could be postprocedural, represent thrombus, or represent tumor infiltration. The stated he was not sure he actually had prostate cancer. The CT results were discussed in detail and his questions were answered. His primary concern was the WOODARD that is requiring him to have an indwelling catheter for the past several months. He is concerned about frequent blood that he sees in his urine. He did not understand that a surgical intervention would likely be required as suggested by urology. Of note, the patient has requested several opinions regarding his prostate cancer and, indeed had a telephone consult today with another urologist that was recommended by his insurance company. He informs that during the telephone consult this morning, the urologist recommended him to go to the emergency department for hematuria. He has been seen in the emergency department several times since June for hematuria likely related to WOODARD and he was treated for a UTI x 1 and catheter was changed. He has also been seen several times in follow-up by [facility] urology who has recommended treatment for the bladder outlet obstruction as well as prostate cancer which he has refused up to now. Recent labs were also reviewed. All medications were reconciled during this visit. HEALTHCARE PROVIDERS: PCP: KEESHA Urology: Dr. 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 10/21/2018 LUBA,NOLAN Diverticular disease R69. 10/21/2018 MONICA VERDUZCOARIO Osteoarthritis (SNOMED CT 330354190 05/13/2018 JACKY CRUMP Generalized anxiety disorder F41.1 04/11/2016 ELICIA [place] Epilepsy R69. 02/12/2016 SKYLAR MACHADO Essential hypertension I10. 04/17/2016 SKYLAR MACHADO Atypical chest pain R07.89 01/01/2018 SKYLAR MACHADO VITAL SIGNS: Temperature 97.3 F [36.3 C] (08/09/2024 09:58) Blood Pressure 154/78 (08/24/2024 12:28) Pulse 68 (08/24/2024 12:28) Respiration 20 (08/24/2024 12:28) Pain 0 (08/24/2024 12:28) BMI BMI: 26.4 Weight 183.4 lb [83.19 kg] (08/24/2024 12:29) Pulse Oximetry 97% (08/24/2024 12:28) ASSISTIVE DEVICES: None REVIEW OF SYSTEMS: CONSTITUTIONAL: No fevers, chills, weight loss/gain ENT: No sore throat, sneezing, congestion, rhinorrhea. CARDIOVASCULAR: No chest pain, palpitations, or increased pedal edema RESPIRATORY: No SOB, cough, sputum. GASTROINTESTINAL: Denies abd pain, N/V/D. No melena or hematochezia. No constipation. GENITOURINARY: Hematuria. MUSCULOSKELETAL: No myalgias or arthralgias. PSYCHIATRIC: Anxiety r/t hematuria. No sleep disturbance. NEUROLOGIC: No headaches, dizziness, numbness or tingling in the extremities, or unilateral weakness. EXAMINATION General: Well-appearing older in no obvious distress. Mental Status: Alert and oriented x4. Head: Normocephalic. Eyes: EOMI. Anicteric sclerae. ENT: Moist oral mucosa. Neck: Supple. No JVD. No LAD. No bruit. Lungs: CTA. Normal chest excursion. Eupneic respirations. CV: Heart tones S1, S2. RRR. No M/G/R. No peripheral edema GI: Abdomen is soft and nontender. No palpable mass. : Indwelling catheter in place with no macroscopic blood. Ext: No cyanosis or clubbing. No gross deformities. Neuro: CN II through XII grossly intact. Normal speech. Integument: Skin warm and dry. No concerning lesions or rashes. Psych: Anxious mood and affect. 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 He has refused any treatment since diagnosis. Developed a bladder outlet obstruction in June requiring placement of indwelling catheter. He was treated by urology for UTI x 1 and catheter has been changed multiple times. He would like to have the catheter DC'd. I had lengthy and detailed discussion regarding his prostate cancer with evidence of lung metastases. Regarding the bladder outlet obstruction, he is now willing to have surgical intervention. I recommended he contact Dr. Cox's office and advised them of his decision. He is still considering whether to pursue treatment of his metastatic prostate cancer. He was very grateful for the detailed explanation. Of note, there was an CLASSIFIER TENDER (Jose) present throughout the visit to assist with medical translation and her assistance was greatly appreciated. FOLLOW UP: RTC Below & sooner PRN UPCOMING APPOINTMENTS: 09/05/2024 11:30 CWM/SO/PACT 9 10/26/2024 09:00 CWM/SO/PACT 9 10/28/2024 10:00 CWM/SO/PACT 9 01/02/2025 10:00 CWM/NO/OPTOMETRY/MERHAR 55 minutes spent in patient evaluation, data review, and patient education. All medications were reconciled during this visit. No barriers; Patient understands and agrees to current treatment plan. If pt has any questions, concerns, or changes in current health status he/she will call or come [facility] to the [facility]. Medication Reconciliation: Outpatient: Has the patient been [...] whether with a VA or non-VA provider. /mariana/ ROWENA ROY NP NURSE PRACTITIONER Signed: 08/24/2024 14:28 08/30/2024 ADDENDUM STATUS: COMPLETED THIS HEAD OF DRAMA SPOKE w/ AND IS BOOKED FOR 12/13/24 LETTER SENT /mariana/ ERIC BARTON ADVANCE FLAG SIGNALMAN Signed: 08/30/2024 11:08 ROWENA ROY [facility] Aug 24, 2024 02:03 PM PRIMARY CARE NURSE PRACTITIONER OUTPATIENT NOTE: LOCAL TITLE: NURSE PRACTITIONER OUTPATIENT NOTE STANDARD TITLE: PRIMARY CARE NURSE PRACTITIONER OUTPATIENT NOTE DATE OF NOTE: AUG 24, 2024@14:03 ENTRY DATE: AUG 24, 2024@14:03:57 AUTHOR: ROWENA ROY EXP COSIGNER: URGENCY: STATUS: COMPLETED NURSE PRACTITIONER OUTPATIENT NOTE Has ADDENDA PRIMARY CARE VISIT AJKE DUGAN, is a 79 yo DECLINED TO ANSWER MALE who [place] at the [place] [facility]. TYPE OF VISIT: Face to face 79-year-old with ZECHARIAH, epilepsy, HTN, MILTON and untreated prostate cancer diagnosed in 2021 presented to the outpatient clinic in follow-up for CT abdomen/pelvis. CT abd/pelvis from 08/16/2024 with findings suspicious for widespread pulmonary metastasis and new adenopathy in the abdomen and pelvis compatible with metastatic disease and new dilatation of the urethra which could be postprocedural, represent thrombus, or represent tumor infiltration. The Rayne stated he was not sure he actually had prostate cancer. The CT results were discussed in detail and his questions were answered. His primary concern was the WOODARD that is requiring him to have an indwelling catheter for the past several months. He is concerned about frequent blood that he sees in his urine. He did not understand that a surgical intervention would likely be required as suggested by urology. Of note, the patient has requested several opinions regarding his prostate cancer and, indeed had a telephone consult today with another urologist that was recommended by his insurance company. He informs that during the telephone consult this morning, the urologist recommended him to go to the emergency department for hematuria. He has been seen in the emergency department several times since June for hematuria likely related to WOODARD and he was treated for a UTI x 1 and catheter was changed. He has also been seen several times in follow-up by [facility] urology who has recommended treatment for the bladder outlet obstruction as well as prostate cancer which he has refused up to now. Recent labs were also reviewed. All medications were reconciled during this visit. HEALTHCARE PROVIDERS: PCP: KEESHA Urology: Dr. 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 10/21/2018 NOLAN VERDUZCO Diverticular disease R69. 10/21/2018 NOLAN VERDUZCO Osteoarthritis (SNOMED CT [id number] 05/13/2018 NICOLASJACKY SONG Generalized anxiety disorder F41.1 04/11/2016 ELICIA HARRIS Epilepsy R69. 02/12/2016 SKYLAR MACHADO Essential hypertension I10. 04/17/2016 SKYLAR MACHADO Atypical chest pain R07.89 01/01/2018 SKYLAR MACHADO VITAL SIGNS: Temperature 97.3 F [36.3 C] (08/09/2024 09:58) Blood Pressure 154/78 (08/24/2024 12:28) Pulse 68 (08/24/2024 12:28) Respiration 20 (08/24/2024 12:28) Pain 0 (08/24/2024 12:28) BMI BMI: 26.4 Weight 183.4 lb [83.19 kg] (08/24/2024 12:29) Pulse Oximetry 97% (08/24/2024 12:28) ASSISTIVE DEVICES: None REVIEW OF SYSTEMS: CONSTITUTIONAL: No fevers, chills, weight loss/gain ENT: No sore throat, sneezing, congestion, rhinorrhea. CARDIOVASCULAR: No chest pain, palpitations, or increased pedal edema RESPIRATORY: No SOB, cough, sputum. GASTROINTESTINAL: Denies abd pain, N/V/D. No melena or hematochezia. No constipation. GENITOURINARY: Hematuria. MUSCULOSKELETAL: No myalgias or arthralgias. PSYCHIATRIC: Anxiety r/t hematuria. No sleep disturbance. NEUROLOGIC: No headaches, dizziness, numbness or tingling in the extremities, or unilateral weakness. EXAMINATION General: Well-appearing older in no obvious distress. Mental Status: Alert and oriented x4. Head: Normocephalic. Eyes: EOMI. Anicteric sclerae. ENT: Moist oral mucosa. Neck: Supple. No JVD. No LAD. No bruit. Lungs: CTA. Normal chest excursion. Eupneic respirations. CV: Heart tones S1, S2. RRR. No M/G/R. No peripheral edema GI: Abdomen is soft and nontender. No palpable mass. : Indwelling catheter in place with no macroscopic blood. Ext: No cyanosis or clubbing. No gross deformities. Neuro: CN II through XII grossly intact. Normal speech. Integument: Skin warm and dry. No concerning lesions or rashes. Psych: Anxious mood and affect. 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 He has refused any treatment since diagnosis. Developed a bladder outlet obstruction in June requiring placement of indwelling catheter. He was treated by urology for UTI x 1 and catheter has been changed multiple times. He would like to have the catheter DC'd. I had lengthy and detailed discussion regarding his prostate cancer with evidence of lung metastases. Regarding the bladder outlet obstruction, he is now willing to have surgical intervention. I recommended he contact Dr. Cox's office and advised them of his decision. He is still considering whether to pursue treatment of his metastatic prostate cancer. He was very grateful for the detailed explanation. Of note, there was an CLASSIFIER TENDER (Jose) present throughout the visit to assist with medical translation and her assistance was greatly appreciated. FOLLOW UP: RTC Below & sooner PRN UPCOMING APPOINTMENTS: 09/05/2024 11:30 CWM/SO/PACT 9 10/26/2024 09:00 CWM/SO/PACT 9 10/28/2024 10:00 CWM/SO/PACT 9 01/02/2025 10:00 CWM/NO/OPTOMETRY/MERHAR 55 minutes spent in patient evaluation, data review, and patient education. All medications were reconciled during this visit. No barriers; Patient understands and agrees to current treatment plan. If pt has any questions, concerns, or changes in current health status he/she will call or come [facility] to the [facility]. Medication Reconciliation: Outpatient: Has the patient been [...] whether with a VA or non-VA provider. /mariana/ ROWENA ROY NP NURSE PRACTITIONER Signed: 08/24/2024 14:28 08/25/2024 ADDENDUM STATUS: COMPLETED The patient would like to switch to PACT 1. Please change Clay. AMSA: Please contact the patient and establish an appointment within the next 90 to 120 days. Thank you /viky ROY NP NURSE PRACTITIONER Signed: 08/25/2024 16:13 Receipt Acknowledged By: 08/30/2024 11:09 /mariana/ ERIC BARTON ADVANCE FLAG SIGNALMAN * AWAITING SIGNATURE * KYLE TAFOYA 08/25/2024 16:19 /mariana/ ISABEL FREDERICK LPN LPN 08/30/2024 ADDENDUM STATUS: COMPLETED THIS HEAD OF DRAMA SPOKE w/ AND IS BOOKED FOR 12/13/24 LETTER SENT /viky BARTON [employer]VANCE FLAG SIGNALMAN Signed: 08/30/2024 11:08 ROWENA ROY Aug 24, 2024 12:30 PM PREVENTIVE MEDICIN E NURSING NOTE: LOCAL TITLE: CLINICAL REMINDERS/NURSING STANDARD TITLE: PREVENTIVE MEDICINE NURSING NOTE DATE OF NOTE: AUG 24, 2024@12:30 ENTRY DATE: AUG 24, 2024@12:30:11 AUTHOR: ISABEL FREDERICK EXP COSIGNER: URGENCY: STATUS: COMPLETED COVID-19 Immunization: Defer due to a PRECAUTION Reason: def /mariana/ ISABEL FREDERICK LPN LPN Signed: 08/24/2024 12:30 ISABEL FREDERICK
== END 2024-08-25 02:47 | disposition home or self-care (01) ==
PROVIDERS: Physician Assistant; Emergency Provider Internal Medicine; PCP Internal Medicine
DX: T83.511A Infection and inflammatory reaction due to indwelling urethral catheter, initial encounter (principal); Y73.8 Miscellaneous gastroenterology and urology devices associated with adverse incidents, not elsewhere classified; Y92.122 Bedroom in nursing home as the place of occurrence of the external cause; R31.9 Hematuria, unspecified; C61 Malignant neoplasm of prostate; C77.5 Secondary and unspecified malignant neoplasm of intrapelvic lymph nodes; I10 Essential (primary) hypertension; Z87.891 Personal history of nicotine dependence; Z79.899 Other long term (current) drug therapy
CPT/HCPCS: 36415; 51702; 74176; 80048; 80076; 81001; 83735; 85025; 87086; 99284

== ENCOUNTER 2024-09-07 14:58 | Outpatient (AMB) | payer OTHER, SELFPAY ==
--- NOTE | 2024-09-07 15:04 | MHC.OFFVIS ---
Intake Visit Reasons: metastatic prostate cancer Intake Note: New patient is present to establish care for ER follow up Any Urology Medications: Antibiotic Allergy: None Blood Thinner: None PVR: Family History: Bladder Cancer? None Prostate Cancer? Himself Patient Symptoms: Patient states he had his Catheter placed last thursday, he is noticing blood in the urine. Dicer Machine Operator Required: No Accompanied by: Grand Child Allergies aspirin [ASPIRIN] Allergy (Unknown, Verified 09/07/24 15:07) UNKNOWN No Known Drug Allergies Allergy (Unknown, Verified 09/07/24 15:07) U HPI Comments Details: Leo is a pleasant Chinese-speaking male. He is a patient of Dr. Ramachandran. He is seen for the following urologic conditions - prostate cancer - incomplete bladder emptying secondary to BPH Accompanied by his daughter Multiple urologic conditions Primary issue is urinary retention Failed multiple voiding trials through [facility] No documentation of medications to help with bladder emptying Multiple prior urinary tract infections Plan PET-CT prostate After imaging can discuss BPH prostate procedure Bladder retention with recurrent UTI Multiple prior episodes of urinary retention. One sufficiently serious 2 to cause bilateral hydronephrosis Re-initiate finasteride Initiate alpha-joslyn Start methenamine vitamin-C for suppression Discussed GreenLight laser prostate Prostate cancer grade group 3, high volume disease initial PSA 84 Initial diagnosis 04/2022 Per [facility] note 09/01 cores Hewitt 4 + 3, [address] scan negative for adenopathy - follow-up subsequent question of pelvic lymph node No bone scan performed - incomplete staging PFSH Medical History Hypertension Social History Alcohol intake: never Patient Tobacco Use Status: Former Tobacco user Current occupational status: unemployed Current occupation: right handed Review of Systems Const Denies chills and Denies fever(s) Card Reports no additional complaints and Denies syncope Resp Denies cough GI Denies abdominal pain and Denies heartburn Reports as per HPI and Denies change in libido Neuro Denies syncope Psych Denies change in libido Endo Denies change in libido Physical Exam Const General: cooperative, healthy appearing, comfortable and no acute distress Orientation/consciousness: patient oriented x3 HEENT Face and sinus: Yes normal facial exam Mouth: moist mucous membranes Neck Neck: Yes normal visual inspection, Yes full ROM and Yes trachea midline Chest Chest palpation & inspection: normal inspection of the chest Resp Effort & Inspection: normal respiratory effort, able to speak in complete sentences and no respiratory distress GI Inspection: Yes normal to inspection Back/Spine/Pelvis Cervical Spine: normal cervical lordosis Thoracic/Lumbar Spine: thoracic and lumbar spine normal to inspection Skin General skin exam: no rashes or lesions noted Neuro General: patient oriented x3, gait normal, tone normal and moves all extremities Extrem General: Yes normal to inspection and Yes capillary refill normal Assessment & Plan Assessment & Plan (1) Prostate cancer metastatic to intrapelvic lymph node: Code(s): C61 - Malignant neoplasm of prostate; C77.5 - Secondary and unspecified malignant neoplasm of intrapelvic lymph nodes Category: Medical (2) Urinary retention with incomplete bladder emptying: Code(s): R33.9 - Retention of urine, unspecified Category: Medical Plan Start methenamine and ascorbic acid PET-CT imaging Follow-up office Orders: Orders AMB Urinalysis Automated 09/07/24 Z13.9 - Encounter for screening, unspecified PET CT fusion skull to thigh 09/07/24 C61 - Malignant neoplasm of prostate, C77.5 - Secondary and unspecified malignant neoplasm of intrapelvic lymph nodes Medications: New ascorbic acid (vitamin C) 1 g PO DAILY 90 days 90 tabs 1RF N39.0 - Urinary tract infection, site not specified, R33.9 - Retention of urine, unspecified methenamine hippurate 1 g PO DAILY 90 days 90 tabs 1RF N39.0 - Urinary tract infection, site not specified, R33.9 - Retention of urine, unspecified finasteride 5 mg PO DAILY 90 days 90 tabs 1RF N13.8 - Other obstructive and reflux uropathy, N40.1 - Benign prostatic hyperplasia with lower urinary tract symptoms, R33.9 - Retention of urine, unspecified tamsulosin 0.4 mg PO BEDTIME 90 days 90 caps 1RF N13.8 - Other obstructive and reflux uropathy, N40.1 - Benign prostatic hyperplasia with lower urinary tract symptoms, R33.9 - Retention of urine, unspecified Patient Instructions: Imaging studies, laboratory and physical exam results were discussed and reviewed in detail. No major barriers to patient understanding were identified. An opportunity to ask questions regarding the treatment plan was provided. All questions were answered. The patient expressed understanding and agreement with the above treatment plan. The patient is aware they should contact our office by phone for worsening of their current condition or the appearance of new urologic symptoms. Compliance is encouraged with any medications and followup testing that is ordered. It is a privilege to participate in the urologic care of your patient. If you have any questions or concerns regarding treatment for the above conditions, or other urologic issues, please do not hesitate to contact me. The office telephone contact is [phone]. This note is constructed using voice recognition software. While every effort has been made to ensure accuracy rod puller errors may have been included. Yours sincerely, Dr Alexis Robertson MD, [facility] - Urology Providers of Expert, Compassionate Care for the Genitourinary System Coding Level of Care Code New Pt Level 4 (86572) Diagnoses Prostate cancer metastatic to intrapelvic lymph node C61; C77.5 Urinary retention with incomplete bladder emptying R33.9
--- OUTSIDE RECORDS SUMMARY | 2024-09-07 15:22 | XMS_ITS ---
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 ([place]) [facility] Address [address] [place] [id number] Care Team Providers Care Car Record Clerk Name Role Phone ROWENA ROY Primary Care Provider Unavailabl e Insurance Providers: All historical and current Section [...] Relationship to Policy Segal [facility] (R) MEDICARE ADVANTAGE [place] IDUAL - [place] Sep 21, 2023 [id number] [phone] GENET DUGAN S PATIENT [facility] (WNR) MEDICARE ADVANTAGE [facility] ([facility]) Sep 21, 2023 [id number] [phone] MARVIN DUGANI S PATIENT [place] MEDICAID [place] PLAN May 22, 2022 MEDICAI D [id number] GENET DUGAN S PATIENT MEDICARE ([facility]) MEDICARE (M) PART B May 22, 2022 PART B [id number] MARVIN DUGANI S PATIENT MEDICARE ([facility]) MEDICARE (M) PART A Feb 19, 2009 PART A [id number] DUGAN,GENET S PATIENT MEDICARE PART D (WNR) MEDICARE (M) PART D Jul 22, 2022 PART D [id number] [phone] GENET DUGAN S PATIENT [facility] (WNR) MEDICARE ADVANTAGE [facility] (WNR) Sep 21, 2022 [id number] [phone] GENET DUGAN PATIENT [facility] MCR (WNR) MEDICARE ADVANTAGE MCR (WNR) Sep 21, 2022 [id number] GENET DUGAN PATIENT Selected Encounter This section includes the information on record at DC for the Encounter. Date/Time Encounter Type Encounter Description Reason Pro vider Source Sep 16, 2023 12:28 PM Outpatient Encounter PRIMARY CARE/MEDICINE IHE Encounter Template Text not used by DC Plan of Treatment: Future Appointments (+ 6 months) and Future Tests (+/- 45 days) The Plan of Treatment section includes future care activities for the patient from all DC treatmentfacilities. This section includes future appointments and future orders which are active, pending or scheduled. Future Appointments This section includes appointments that were scheduled to occur 6 months from the date of the Encounter, up to a maximum of 20 appointments. The data comes from all [place] treatment facilities. Appointment Date/Time Appointment Type Appointme nt Facility Name Sep 18, 2023 11:00 AM AMBULATORY - MEDICINE [place] [facility] [place] [facility] Dec 22, 2023 10:00 AM AMBULATORY - MEDICINE DC [facility] [place] [facility] Dec 31, 2023 09:00 AM AMBULATORY - MEDICINE DC [facility] [place] [facility] Dec 31, 2023 10:30 AM AMBULATORY - MEDICINE DC [facility] [place] [facility] January 22, 2024 02:30 PM AMBULATORY - MEDICINE DC [facility] [place] [facility] Feb 26, 2024 01:00 PM AMBULATORY - MEDICINE [facility] Feb 26, 2024 01:15 PM [facility] Mar 10, 2024 09:00 AM AMBULATORY - NONE [facility] [place] [facility] Lab Results: +/- 30 days of the encounter This section includes the Chemistry and Hematology Lab Results on record with DC for the patient. Radiology Reports and Pathology Reports are provided separately, in subsequent sections. Lab Results This section contains the Chemistry/Hematology Results that were resulted 30 days before or 30 daysafter the date of the Encounter. Date/Time Source Result Type Result - Unit Interpretation Reference Range Comment Oct 06, 2023 12:48 PM [facility] PSA Specimen Type: SERUM No comment entered. Ordering Provider: HAYLEY VERDUZCO Report Released Date/Time: Oct 06, 2023 12:38 PM Reporting Lab: [facility] [address] [facility] [id number] Performing Lab: [facility] [address] [facility] [address] PSA 21.53 ng/mL H 0.00-4.00 Sep 18, 2023 12:07 PM [facility] FOLATE Specimen Type: SERUM No comment entered. Ordering Provider: HAYLEY VERDUZCO Report Released Date/Time: Sep 18, 2023 11:50 AM Reporting Lab: [facility] [address] [facility] [address] Performing Lab: [facility] [address] [facility] [id number] FOLATE 3.83 ng/mL L >5.2 Advance Directives: All historical and current Section Date Range: From patient's date of to the date document was created. This section includes ALL of a patient's completed or amended DC Advance and Rescinded Directives. The entries below indicate that a directive exists for the patient, but an actual copy is not included with this document. The data comes from all [place] facilities. Date Advance Directives Provider Source Apr [...] the Encounter. The data comes from all [place] treatment facilities. Date/Time Radiology Report Provider Source Oct 14, 2023 02:[address] ABDOMEN /PELVIS W/WO CONTRAST: JAKE DUGAN [id number] -[id number] M Exm Date: OCT 14, 2023@14:00 Req Phys: LUBA,NOLAN Pat Loc: [facility]/OUTSIDE IMAGING NON-CNT (R Img Loc: OUTSIDE GENERAL RADIOLOGY Service: Unknown (Case [id number] COMPLETE) OUTSIDE CT ABDOMEN/PELVIS W/WO CO(RAD Detailed) CPT:63162 Reason for Study: outside images have been uploaded for continuity of care Clinical History: outside images have been uploaded for continuity of care Report Status: Electronically Filed Date Reported: OCT 14, 2023 Report: THIS EXAM WAS PERFORMED AND INTERPRETED AT AN OUTSIDE HOSPITAL Impression: THIS EXAM WAS PERFORMED AND INTERPRETED AT AN OUTSIDE HOSPITAL Primary Diagnostic Code: VERIFIED BY: / *ELECTRONICALLY FILED* [facility] Encounter Notes: All associated encounter notes [...] (T): <====Click to Start Advanced Medical Support Part[facility] presents to the Primary Care clinic with the following request: [ ]Medication Renewal/Refill [ ]Consultation with Team RN [ ]Symptoms [ X ]OtherBlood work The [facility] states they are: [ ]Waiting [ X [...] says he will be going away to [place]. /mariana/ CHAPINCITO MCINTYRE Signed: 09/16/2023 12:31 Receipt Acknowledged By: * AWAITING SIGNATURE * ISABEL FREDERICK 09/16/2023 13:40 /mariana/ Jame Marquez RN Registered Nurse (RN) for JELANI BRANDON 09/16/2023 ADDENDUM STATUS: COMPLETED Chassis Inspector scheduled appt on 09/18/2023 @ 11:00 am. /mariana/ DANIELE MCINTYRE Signed: 09/16/2023 13:47 JAME MARQUEZ Sep 16, 2023 12:28 PM PRIMARY CARE [...] CWM/SO/PACT 9 12/31/2023 09:00 CWM/NO/OPTOMETRY 1 AM Part[facility] came in requesting blood work and would like to be seen by the provider states he has prostate cancer. Requesting a sooner appt says he will be going away to [place]. /mariana/ CHAPINCITO MCINTYRE Signed: 09/16/2023 12:31 Receipt Acknowledged By: 09/18/2023 11:21 /mariana/ ISABEL FREDERICK LPN LPN 09/16/2023 13:40 /mariana/ Jame Marquez RN Registered Nurse (RN) for JELANI BRANDON 09/16/2023 ADDENDUM STATUS: COMPLETED AMSA--Please call to schedule appt, labs will be entered during pre- planning. Thanks /mariana/ Jame Marquez RN Registered Nurse (RN) Signed: 09/16/2023 13:40 Receipt Acknowledged By: 09/16/2023 13:47 /mariana/ DANIELE MCINTYRE 09/16/2023 ADDENDUM STATUS: COMPLETED Chassis Inspector scheduled appt on 09/18/2023 @ 11:00 am. /mariana/ DANIELE MCINTYRE Signed: 09/16/2023 13:47 CHAPINCITO DEE
--- OUTSIDE RECORDS SUMMARY | 2024-09-07 15:22 | XMS_ITS | Continuity of Care Document ---
Author Name [facility] Organization [facility] Care Team Providers Care Process Camera Operator Name Role Phone [facility] Unavailable Unavailable Problems Combined list of problems from Department of Defense and Veterans Affairs facilities. It does not include entries that were removed or entered in error. Problem Status Onset Date Problem Type Date of Resolution Comments Source Atypical chest pain Active Condition February 12, 2016 Entered By: ALICIA MACHADO Comment: [facility] [phone] PA OV 12-05-15y 2015 Entered By: ALICIA MACHADO Comment: 02/13/16 [...] [place] [facility] Epilepsy Active Condition February 11 Entered By: ALICIA MACHADO Comment: [facility] [phone] PA OV 12-05-15 [facility] [place] Essential hypertension Active Condition February 12, 2016 Entered By: ALICIA MACHADO Comment: [facility] [phone] PA OV 12-05-15 [facility] [place] [facility] [place] [facility] Olecranon bursitis Active Condition [place] Osteoarthritis (SNOMED CT 511457103) Active Condition Dec 07, 2017 Entered By: ALICIA MACHADO Comment: C/S worst at C6-C7 2017 Entered By: ALICIA MACHADO Comment: mod OA Interphalamgeal joint right thumb 09/06 [facility] [place] [facility] Paraesthesia of lower extremity (SNOMED CT 345675779) Active Condition Apr 23, 2021 Entered By: [...] 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 [place] Diagnosis: ICD-10-CM C61 Malignant neoplasm of prostate Active Diagnosis [place] Diagnosis: ICD-10-CM Z46.0 Encounter for fit/adjst of spectacles and contact lenses Active Diagnosis [facility] [place] [facility] Diagnosis: ICD-10-CM N50.9 Disorder of male genital organs, unspecified Active Diagnosis [place] Diagnosis: ICD-10-CM Z01.810 Encounter for preprocedural cardiovascular examination Active Diagnosis [place] Diagnosis: ICD-10-CM Z23 Encounter for immunization Active Diagnosis [place] Diagnosis: ICD-10-CM Z51.81 Encounter for therapeutic drug level monitoring Active Diagnosis [facility] [place] Diagnosis: ICD-10-CM 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, unspecified Active Diagnosis [place] Diagnosis: ICD-10-CM L82.1 Other seborrheic keratosis Active Diagnosis [facility] Diagnosis: ICD-10-CM Z13.89 Encounter for screening for other disorder [facility] Diagnosis: ICD-10-CM L02.818 Cutaneous abscess of other sites Active Diagnosis [facility] D Diagnosis: ICD-10-CM L02.212 Cutaneous abscess of back [any part, except buttock] Active Diagnosis [place] Diagnosis: ICD-10-CM W06.XXXA Fall from bed, initial encounter Active Diagnosis [place] Diagnosis: ICD-10-CM H40.013 Open angle with borderline findings, low risk, bilateral [facility] [place] [facility] Diagnosis: ICD-10-CM R97.20 Elevated prostate specific antigen [PSA] Active Diagnosis [place] Diagnosis: ICD-10-CM I10 Essential (primary) hypertension Active Diagnosis [place] Diagnosis: ICD-10-CM M54.59 Other low back pain 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 [place] [facility] Diagnosis: ICD-10-CM R20.2 Paresthesia of skin Active Diagnosis [place] Diagnosis: ICD-10-CM M54.50 Low back pain, unspecified Active Diagnosis [place] Medications Combined list of outpatient medications from [...] 6 HOURS NEEDED FOR PAIN ORAL 03/27/2024 [id number] Zoe MCLAIN 2023 100 [place] CAPSAICIN 0.025% CREAM,TOP APPLY A MODERATE AMOUNT TOPICALL Y FOUR TIMES A DAY FOR LOCALIZE D PAIN (USE FOR AT LEAST 4 WEEKS FOR EFFECT) TOPICA L ACTIVE 12/22/2024 [id number] 4 VINICIO VERDUZCOANDREEA O 2023 60 [place] CARBOXYMETH YLCELLULOSE NA 0.5% SOLN,OPH INSTILL 1 DROP INTO EACH EYE FOUR TIMES DAILY NEEDED FOR DRY EYE OPHTHA LMIC DISCONT INUED BY PROVIDE R 12/23/2023 [id number] 4 MERHAR,NO AH B 2022 45 [facility] [place] CARBOXYMETH YLCELLULOSE NA 1% GEL,OPH APPLY 1 DROP INTO EACH EYE FOUR TIMES DAILY NEEDED FOR DRY EYE OPHTHA LMIC ACTIVE 12/31/2024 [id number] 4 MERSIENNA,NO AH B 2023 15 [facility] [place] CEFUROXIME AXETIL 500MG TAB TAKE ONE TABLET BY MOUTH TWICE DAILY ORAL 03/23/2024 [id number] 4 PINKY HERRERA 2023 14 [place] CEPHALEXIN 500MG CAP TAKE ONE CAPSULE BY MOUTH THREE TIMES A DAY FOR INFECTIO N ORAL ACTIVE 10/02/2024 [id number] 4 KENNETH BANUELOS 2023 21 [facility] CHOLECALCIF ELMA 10MCG (400UNIT) TAB TAKE ONE TABLET BY MOUTH ONCE DAILY FOR VITAMIN SUPPLEME NTATION ORAL ACTIVE 11/22/2024 [id number] 4 Mahnaz ROY 2023 90 [place] CIPROFLOXAC IN HCL 500MG TAB TAKE ONE TABLET BY MOUTH TWICE DAILY FOR 7 DAYS FOR INFECTIO N ORAL ACTIVE 09/24/2024 [id number] 4 TAWANA BRANDON 2023 14 [place] CYANOCOBALA MIN 250MCG TAB TAKE ONE TABLET BY MOUTH ONCE DAILY ORAL ACTIVE 08/25/2025 [id number] 4 Mahnaz ROY 2023 100 [place] CYCLOSPORIN E 0.05% (PF) EMULSION,OP H,0.4ML INSTILL 1 DROP INTO EACH EYE TWICE DAILY FOR DRY EYE THIS REPLACES XIIDRA OPHTHA LMIC ACTIVE 03/22/2025 [id number] 4 MERHAR,NO AH B 2023 60 [place] FINASTERIDE 5MG TAB TAKE ONE TABLET BY MOUTH ONCE DAILY FOR ENLARGED PROSTATE ORAL ACTIVE 04/01/2025 [id number] 4 LUBA, APOLINARI O 2023 90 [place] FLUTICASONE PROPIONATE 50MCG/SPRAY SOLN,NASAL, 16GM INSTILL 1 SPRAY INTO EACH NOSTRIL TWICE DAILY NASAL ACTIVE BRIJESH SELF 2015 [place] FOLIC ACID 1MG TAB TAKE ONE TABLET BY MOUTH ONCE DAILY FOR INADEQUA TE FOLIC ACID VITAMIN/ NUTRITIO N SUPPLEME NT ORAL 06/25/2024 [id number] 3 LUBA, APOLINARI O 2022 90 [place] KETOTIFEN 0.025% SOLN,OPH INSTILL 1 DROP INTO EACH EYE TWICE DAILY (IF YOU WEAR CONTACT LENSES, WAIT 10 MINUTES BEFORE INSERTIN G LENSES) OPHTHA LMIC ACTIVE 12/04/2024 [id number] JEWEL,NO AH B 2023 15 [facility] [place] KETOTIFEN 0.025% SOLN,OPH INSTILL 1 DROP INTO EACH EYE TWICE DAILY (IF YOU WEAR CONTACT LENSES, WAIT 10 MINUTES BEFORE INSERTIN G LENSES) OPHTHA LMIC DISCONT INUED 11/01/2023 [id number] CHANTEL BRYANT 2022 15 [place] LIFITEGRAST 5% SOLN,OPH,0. 2ML INSTILL 1 DROP INTO EACH EYE TWICE DAILY OPHTHA LMIC DISCONT INUED BY PROVIDE R 12/31/2024 [id number] 4 MERHAR,NO AH B 2023 60 [facility] [place] LIFITEGRAST 5% SOLN,OPH,0. 2ML INSTILL 1 DROP INTO EACH EYE TWICE DAILY OPHTHA LMIC DISCONT INUED 11/01/2023 [id number] CHANTEL BRYANT 2022 60 [place] LISINOPRIL 20MG TAB TAKE ONE TABLET BY MOUTH ONCE DAILY TO CONTROL BLOOD PRESSURE ORAL ACTIVE 12/04/2024 [id number] MONICA VERDUZCOARI O 2023 90 [place] Allergies, Adverse Reactions, Alerts Combined list of allergies from Department of Defense and Veterans Affairs facilities. It does not include entries that were removed or entered in error. Substance Category Reaction Severity Reaction type Status Date Reported Comments Source HCTZ HYDROCHLOROT HIAZIDE Propensity to adverse reactions to drug (finding) Xerostomia active 8 [facility] Immunizations Combined list of available immunizations from the Department of Defense and Veterans Affairs facilities. Immunization Series Date Given Administered By Site Reaction Lot Number CVX Code Drug Controls Technician Status Comments Source INFLUENZA, HIGH-DOSE, TRIVALENT, PF 2023 NIK BRANDON H LEFT DELTO ID [id number] 135 complet ed [place] HEP A, ADULT 2 2023 PAOLA FREDERICK LEFT DELTO ID [id number] 52 complet ed [place] COVID-19 (MODERNA), MRNA, LNP-S, PF, 50 MCG/0.5 ML (AGES 12+ YEARS) 2022 PAOLA FREDERICK LEFT DELTO ID [id number] 312 complet ed [place] HEP A, ADULT 1 2022 PAOLA FREDERICK RIGHT DELTO ID [id number] 52 complet ed [place] INFLUENZA, HIGH-DOSE, QUADRIVALENT 2022 PAOLA FREDERICK LEFT DELTO ID [id number] 197 complet ed [place] INFLUENZA, INJECTABLE, QUADRIVALENT, PRESERVATIVE FREE 2022 PAOLA FREDERICK LEFT DELTO ID [id number] 150 complet ed [place] COVID-19 (MODERNA), MRNA, LNP-S, PF, 100 MCG/0.5ML DOSE OR 50 MCG/0.25ML DOSE 2021 207 complet ed [facility] ZOSTER RECOMBINANT 2 2021 187 complet ed [place] INFLUENZA, UNSPECIFIED FORMULATION 2020 88 complet ed [facility] ZOSTER RECOMBINANT [...] DOSE 1 2020 207 complet ed MOD; [id number]; 1 [facility] [...] Aug 24, 2024 11:07 AM Reporting Lab: [facility] [place] [address] [address] Performing Lab: [facility] [address] [place] CBC AND DIFF (AUTO) ERYTHROCYT ES [#/VOLUME] IN BLOOD BY AUTOMATED COUNT 4.72 10*6/uL 4.23 - 5.66 08/24 Specimen Type: BLOOD No comment entered. Ordering Provider: DANISHA ROY A Report Released Date/Time: Aug 24, 2024 11:07 AM Reporting Lab: [facility] [place] [address] [address] Performing Lab: [facility] [address] [place] CBC AND DIFF (AUTO) HEMOGLOBIN [MASS/VOLU ME] IN BLOOD 12.8 g/dL 12.8 - 17 08/24 Specimen Type: BLOOD No comment entered. Ordering Provider: DANISHA ROY A Report Released Date/Time: Aug 24, 2024 11:07 AM Reporting Lab: [facility] [place] [address] [address] Performing Lab: [facility] [address] [place] CBC AND DIFF (AUTO) HEMATOCRIT [VOLUME FRACTION] OF BLOOD BY AUTOMATED COUNT 38.8 39.2 - 50.4 08/24 L Specimen Type: BLOOD No comment entered. Ordering Provider: DANISHA ROY A Report Released Date/Time: Aug 24, 2024 11:07 AM Reporting Lab: [facility] [address] Performing Lab: [facility] [place] [facility] [address] [facility] [address] [place] CBC AND DIFF (AUTO) MCV [ENTITIC VOLUME] BY AUTOMATED COUNT 82.2 fL 82 - 99 08/24 Specimen Type: BLOOD No comment entered. Ordering Provider: DANISHA ROY A Report Released Date/Time: Aug 24, 2024 11:07 AM Reporting Lab: [facility] [place] [facility] [address] [facility] [address] Performing Lab: [facility] [place] [address] [address] [place] CBC AND DIFF (AUTO) MCHC [MASS/VOLU ME] BY AUTOMATED COUNT 33.0 g/dL 30.8 - 35.1 08/24 Specimen Type: BLOOD No comment entered. Ordering Provider: DANISHA ROY A Report Released Date/Time: Aug 24, 2024 11:07 AM Reporting Lab: [facility] [place] [address] [address] Performing Lab: [facility] [place] [address] [address] [place] CBC AND DIFF (AUTO) PLATELETS [#/VOLUME] IN BLOOD BY AUTOMATED COUNT 312 10*3/uL 140 - 360 08/24 Specimen Type: BLOOD No comment entered. Ordering Provider: DANISHA ROY A Report Released Date/Time: Aug 24, 2024 11:07 AM Reporting Lab: [facility] [place] [address] [address] Performing Lab: [facility] [place] [address] [address] [place] CBC AND DIFF (AUTO) ERYTHROCYT E DISTRIBUTI ON WIDTH [RATIO] BY AUTOMATED COUNT 12.3 12.0 - 16.0 08/24 Specimen Type: BLOOD No comment entered. Ordering Provider: DANISHA ROY A Report Released Date/Time: Aug 24, 2024 11:07 AM Reporting Lab: [facility] [place] [address] [address] Performing Lab: [facility] [place] [address] [address] [place] CBC AND DIFF (AUTO) MONOCYTES [#/VOLUME] IN BLOOD BY AUTOMATED COUNT 0.39 10*3/uL 0.30 - 1.10 08/24 Specimen Type: BLOOD No comment entered. Ordering Provider: DANISHA ROY A Report Released Date/Time: Aug 24, 2024 11:07 AM Reporting Lab: [facility] [place] [address] [address] Performing Lab: [facility] [place] [address] [address] [place] CBC AND DIFF (AUTO) MCH [ENTITIC MASS] BY AUTOMATED COUNT 27.1 pg 26.2 - 32.6 08/24 Specimen Type: BLOOD No comment entered. Ordering Provider: DANISHA ROY A Report Released Date/Time: Aug 24, 2024 11:07 AM Reporting Lab: [facility] [place] [address] [address] Performing Lab: [facility] [place] [address] [address] [place] CBC AND DIFF (AUTO) NEUTROPHIL S/100 LEUKOCYTES IN BLOOD BY AUTOMATED COUNT 80.9 43.7 - 75.8 08/24 H Specimen Type: BLOOD No comment entered. Ordering Provider: DANISHA ROY A Report Released Date/Time: Aug 24, 2024 11:07 AM Reporting Lab: [facility] [place] [address] [address] Performing Lab: [facility] [place] [address] [address] [place] CBC AND DIFF (AUTO) LYMPHOCYTE S/100 LEUKOCYTES IN BLOOD BY AUTOMATED COUNT 12.2 14.0 - 42.3 08/24 L Specimen Type: BLOOD No comment entered. Ordering Provider: DANISHA ROY A Report Released Date/Time: Aug 24, 2024 11:07 AM Reporting Lab: [facility] [place] [address] [address] Performing Lab: [facility] [place] [address] [address] [place] CBC AND DIFF (AUTO) MONOCYTES/ 100 LEUKOCYTES IN BLOOD BY AUTOMATED COUNT 4.4 5.1 - 13.7 08/24 L Specimen Type: BLOOD No comment entered. Ordering Provider: DANISHA ROY A Report Released Date/Time: Aug 24, 2024 11:07 AM Reporting Lab: [facility] [place] [address] [address] Performing Lab: [facility] [place] [address] [address] [place] CBC AND DIFF (AUTO) EOSINOPHIL S/100 LEUKOCYTES IN BLOOD BY AUTOMATED COUNT 1.6 0.4 - 6.8 08/24 Specimen Type: BLOOD No comment entered. Ordering Provider: DANISHA ROY A Report Released Date/Time: Aug 24, 2024 11:07 AM Reporting Lab: [facility] [place] [address] [address] Performing Lab: [facility] [place] [address] [address] [place] CBC AND DIFF (AUTO) BASOPHILS/ 100 LEUKOCYTES IN BLOOD BY AUTOMATED COUNT 0.7 0.1 - 2.0 08/24 Specimen Type: BLOOD No comment entered. Ordering Provider: DANISHA ROY A Report Released Date/Time: Aug 24, 2024 11:07 AM Reporting Lab: [facility] [place] [address] [address] Performing Lab: [facility] [address] [address] [place] CBC AND DIFF (AUTO) NEUTROPHIL S [#/VOLUME] IN BLOOD BY AUTOMATED COUNT 7.15 10*3/uL 2.20 - 7.60 08/24 Specimen Type: BLOOD No comment entered. Ordering Provider: DANISHA ROY A Report Released Date/Time: Aug 24, 2024 11:07 AM Reporting Lab: [facility] [address] [address] Performing Lab: [facility] [address] [place] CBC AND DIFF (AUTO) LYMPHOCYTE S [#/VOLUME] IN BLOOD BY AUTOMATED COUNT 1.08 10*3/uL 1.00 - 3.20 08/24 Specimen Type: BLOOD No comment entered. Ordering Provider: DANISHA ROY A Report Released Date/Time: Aug 24, 2024 11:07 AM Reporting Lab: [facility] [address] [address] Performing Lab: [facility] [place] [address] [address] [place] CBC AND DIFF (AUTO) EOSINOPHIL S [#/VOLUME] IN BLOOD BY AUTOMATED COUNT 0.14 10*3/uL 0.03 - 0.44 08/24 Specimen Type: BLOOD No comment entered. Ordering Provider: DANISHA ROY A Report Released Date/Time: Aug 24, 2024 11:07 AM Reporting Lab: [facility] [address] [address] Performing Lab: [facility] [place] [address] [address] [place] CBC AND DIFF (AUTO) BASOPHILS [#/VOLUME] IN BLOOD BY AUTOMATED COUNT 0.06 10*3/uL 0.01 - 0.13 08/24 Specimen Type: BLOOD No comment entered. Ordering Provider: DANISHA ROY A Report Released Date/Time: Aug 24, 2024 11:07 AM Reporting Lab: [facility] [address] Performing Lab: [facility] [address] [address] [place] CBC AND DIFF (AUTO) IMMATURE GRANULOCYT ES/100 LEUKOCYTES IN BLOOD BY AUTOMATED COUNT 0.2 0.0 - 0.7 08/24 Specimen Type: BLOOD No comment entered. Ordering Provider: DANISHA ROY A Report Released Date/Time: Aug 24, 2024 11:07 AM Reporting Lab: [facility] [address] Performing Lab: [facility] [address] [address] [place] CBC AND DIFF (AUTO) IMMATURE GRANULOCYT ES [#/VOLUME] IN BLOOD 0.02 10*3/uL 0.00 - 0.06 08/24 Specimen Type: BLOOD No comment entered. Ordering Provider: DANISHA ROY A Report Released Date/Time: Aug 24, 2024 11:07 AM Reporting Lab: [facility] [address] [address] Performing Lab: [address] [address] [place] CBC AND DIFF (AUTO) NRBC % 0.0 0.0 - 0.0 08/24 Specimen Type: BLOOD No comment entered. Ordering Provider: DANISHA ROY A Report Released Date/Time: Aug 24, 2024 11:07 AM Reporting Lab: [facility] [address] [address] Performing Lab: [address] [address] [place] CBC AND DIFF (AUTO) NRBC, ABS 0.00 10*3/uL 0.00 - 0.00 08/24 Specimen Type: BLOOD No comment entered. Ordering Provider: DANISHA ROY A Report Released Date/Time: Aug 24, 2024 11:07 AM Reporting Lab: [address] [address] Performing Lab: [address] [address] [place] MICROSCOP IC AUTOMATED , URINE LEUKOCYTES [#/AREA] IN URINE SEDIMENT BY MICROSCOPY HIGH POWER FIELD 0-5/[HP F] 0 - 5 08/24 Specimen Type: URINE Comment: If Glucose = >500 and Ketones are positive, please alert the Physician. Ordering Provider: ZAKI VERDUZCO Report Released Date/Time: Aug 09, 2024 09:43 AM Reporting Lab: [facility] [place] [facility] [address] [facility] [address] Performing Lab: [facility] [place] [facility] [address] [facility] [address] [facility] [place] [facility] MICROSCOP IC AUTOMATED , URINE BACTERIA [#/AREA] IN URINE SEDIMENT BY MICROSCOPY HIGH POWER FIELD 1+/[HPF ] 08/24 Specimen Type: URINE Comment: If Glucose = >500 and Ketones are positive, please alert the Physician. Ordering Provider: ZAKI VREDUZCO Report Released Date/Time: Aug 09, 2024 09:43 AM Reporting Lab: [facility] [place] [facility] [address] [facility] [address] Performing Lab: [facility] [place] [facility] [address] [facility] [address] [facility] MICROSCOP IC AUTOMATED , URINE TRIPLE PHOSPHATE CRYSTALS [PRESENCE] IN URINE SEDIMENT BY LIGHT MICROSCOPY MODERAT E/[HPF] 08/24 Specimen Type: URINE Comment: If Glucose = >500 and Ketones are positive, please alert the Physician. Ordering Provider: ZAKI VERDUZCO Report Released Date/Time: Aug 09, 2024 09:43 AM Reporting Lab: [facility] [place] [facility] [address] [facility] [address] Performing Lab: [facility] [place] [facility] [address] [facility] [address] [facility] MICROSCOP IC AUTOMATED , URINE ERYTHROCYT ES [#/AREA] IN URINE SEDIMENT BY MICROSCOPY HIGH POWER FIELD 6-10/[H PF] 0 - 3 08/24 H Specimen Type: URINE Comment: If Glucose = >500 and Ketones are positive, please alert the Physician. Ordering Provider: ZAKI VERDUZCO Report Released Date/Time: Aug 09, 2024 09:43 AM Reporting Lab: [facility] [place] [facility] [address] [facility] [address] Performing Lab: [facility] [place] [facility] [address] [facility] [address] [facility] [place] [facility] URINALYSI S COLOR OF URINE Light-B rown 08/24 Specimen Type: URINE Comment: If Glucose = >500 and Ketones are positive, please alert the Physician. Ordering Provider: ZAKI VERDUZCO Report Released Date/Time: Aug 09, 2024 09:43 AM Reporting Lab: [facility] [place] [address] [address] Performing Lab: [facility] [place] [facility] [address] [facility] [address] [facility] [place] [facility] URINALYSI S APPEARANCE OF URINE Turbid 08/24 Specimen Type: URINE Comment: If Glucose = >500 and Ketones are positive, please alert the Physician. Ordering Provider: ZAKI VERDUZCO Report Released Date/Time: Aug 09, 2024 09:43 AM Reporting Lab: [facility] [place] [address] [address] Performing Lab: [facility] [place] [facility] [address] [facility] [address] [facility] [place] [facility] URINALYSI S GLUCOSE [MASS/VOLU ME] IN URINE Normalm g/dL 08/24 Specimen Type: URINE Comment: If Glucose = >500 and Ketones are positive, please alert the Physician. Ordering Provider: ZAKI VERDUZCO Report Released Date/Time: Aug 09, 2024 09:43 AM Reporting Lab: [facility] [place] [address] [address] Performing Lab: [facility] [place] [address] [address] [facility] [place] [facility] URINALYSI S KETONES [MASS/VOLU ME] IN URINE BY TEST STRIP NEGATIV Emg/dL 08/24 Specimen Type: URINE Comment: If Glucose = >500 and Ketones are positive, please alert the Physician. Ordering Provider: ZAKI VERDUZCO Report Released Date/Time: Aug 09, 2024 09:43 AM Reporting Lab: [facility] [place] [facility] [address] [facility] [address] Performing Lab: [facility] [place] [facility] [address] [facility] [address] [facility] [place] [facility] URINALYSI S ERYTHROCYT ES [PRESENCE] IN URINE SEDIMENT BY LIGHT MICROSCOPY LARGEmg /dL 08/24 Specimen Type: URINE Comment: If Glucose = >500 and Ketones are positive, please alert the Physician. Ordering Provider: ZAKI VERDUZCO Report Released Date/Time: Aug 09, 2024 09:43 AM Reporting Lab: [facility] [facility] [address] [facility] [phone] Performing Lab: [facility] [address] [facility] [id number] [facility] [place] [facility] URINALYSI S PROTEIN [MASS/VOLU ME] IN URINE BY TEST STRIP 100 mg/dL 08/24 Specimen Type: URINE Comment: If Glucose = >500 and Ketones are positive, please alert the Physician. Ordering Provider: ZAKI VERDUZCO Report Released Date/Time: Aug 09, 2024 09:43 AM Reporting Lab: [facility] [place] [facility] [address] [facility] [phone] Performing Lab: [facility] [place] [facility] [address] [facility] [phone] [facility] [place] [facility] URINALYSI S NITRITE [PRESENCE] IN URINE NEGATIV Emg/dL 08/24 Specimen Type: URINE Comment: If Glucose = >500 and Ketones are positive, please alert the Physician. Ordering Provider: ZAKI VERDUZCO Report Released Date/Time: Aug 09, 2024 09:43 AM Reporting Lab: [facility] [place] [facility] [address] [facility] [address] Performing Lab: [facility] [facility] [address] [facility] [address] [facility] [place] [facility] URINALYSI S BILIRUBIN. TOTAL [PRESENCE] IN URINE NEGATIV Emg/dL 08/24 Specimen Type: URINE Comment: If Glucose = >500 and Ketones are positive, please alert the Physician. Ordering Provider: ZAKI VERDUZCO Report Released Date/Time: Aug 09, 2024 09:43 AM Reporting Lab: [facility] [address] Performing Lab: [address] [address] [facility]USE [facility] URINALYSI S SPECIFIC GRAVITY OF URINE BY REFRACTOME TRY 1.007 1.016 - 1.022 08/24 L Specimen Type: URINE Comment: If Glucose = >500 and Ketones are positive, please alert the Physician. Ordering Provider: ZAKI VERDUZCO Report Released Date/Time: Aug 09, 2024 09:43 AM Reporting Lab: [address] [address] Performing Lab: [facility] [address] [facility] URINALYSI S PH OF URINE BY TEST STRIP 8.5 5.0 - 9.0 08/24 Specimen Type: URINE Comment: If Glucose = >500 and Ketones are positive, please alert the Physician. Ordering Provider: ZAKI VERDUZCO Report Released Date/Time: Aug 09, 2024 09:43 AM Reporting Lab: [facility] [address] Performing Lab: [facility] [address] [facility]USE [facility] URINALYSI S UROBILINOG EN [MASS/VOLU ME] IN URINE BY TEST STRIP Normalm g/dL <2.0 - 2.0 08/24 Specimen Type: URINE Comment: If Glucose = >500 and Ketones are positive, please alert the Physician. Ordering Provider: ZAKI VERDUZCO Report Released Date/Time: Aug 09, 2024 09:43 AM Reporting Lab: [facility] [address] [facility] [address] Performing Lab: [address] [address] [facility] URINALYSI S LEUKOCYTE ESTERASE [PRESENCE] IN URINE BY TEST STRIP LARGE 08/24 Specimen Type: URINE Comment: If Glucose = >500 and Ketones are positive, please alert the Physician. Ordering Provider: ZAKI VERDUZCO Report Released Date/Time: Aug 09, 2024 09:43 AM Reporting Lab: [facility] [address] [facility] [address] Performing Lab: [address] [address] [facility] VITAMIN D 25-OH (Therapy monitor) 25-HYDROXY [...] additional information , please refer to http://educ ation.[employer] .com/faq/FA Q199 (This link is being provided for information al/ educational purposes only.) This test was developed and its analytical performance characteris tics have been determined by [facility] [place], [place]. It has not been cleared or approved by the U.S. Food and Drug Administrat ion. This assay has been validated pursuant to the CLIA regulations and is used for clinical purposes. This test was developed and its analytical performance characteris tics have been determined by [employer] [place], [place]. It has not been cleared or approved by the U.S. Food and Drug Administrat ion. This assay has been validated pursuant to the CLIA regulations and is used for clinical purposes. Test Performed by [facility], [facility] [place], [address] [place], [place] Dov Bahena M.D., Ph.D., Director of Laboratorie s , CLIA [id number] TEST PERFORMED AT: , Ordering Provider: ZAKI VERDUZCO Report Released Date/Time: Aug 08, 2024 10:54 AM Reporting Lab: [facility] [address] [facility] [address] Performing Lab: [facility] [address] [address] [facility]SE [facility] VITAMIN D 25-OH (Therapy monitor) 25-HYDROXY VITAMIN [...] additional information , please refer to http://educ ation.[employer] .com/faq/FA Q199 (This link is being provided for information al/ educational purposes only.) This test was developed and its analytical performance characteris tics have been determined by [place]. It has not been cleared or approved by the U.S. Food and Drug Administrat adQ. This assay has been validated pursuant to the CLIA regulations and is used for clinical purposes. This test was developed and its analytical performance characteris tics have been determined by [place]. It has not been cleared or approved by the U.S. Food and Drug Administrat adQ. This assay has been validated pursuant to the CLIA regulations and is used for clinical purposes. Test Performed by [facility], [facility] [place], [address] [place], [place] Dov Bahena M.D., Ph.D., Director of Laboratorie s , CLIA [id number] TEST PERFORMED AT: , Ordering Provider: ZAKI VERDUZCO Report Released Date/Time: Aug 08, 2024 10:54 AM Reporting Lab: [facility] [address] [facility] [address] Performing Lab: [facility] [address] [address] [facility] VITAMIN D 25-OH (Therapy monitor) CALCIFEROL [...] additional information , please refer to http://educ ation.[employer] .com/faq/FA Q199 (This link is being provided for information al/ educational purposes only.) This test was developed and its analytical performance characteris tics have been determined by [place] [facility]. It has not been cleared or approved by the U.S. Food and Drug Administrat ion. This assay has been validated pursuant to the CLIA regulations and is used for clinical purposes. This test was developed and its analytical performance characteris tics have been determined by [place]. It has not been cleared or approved by the U.S. Food and Drug Administrat ion. This assay has been validated pursuant to the CLIA regulations and is used for clinical purposes. Test Performed by [facility], [facility], [address] [place], [place] Dov Bahena M.D., Ph.D., Director of Laboratorie s , CLIA [id number] TEST PERFORMED AT: , Ordering Provider: ZAKI VERDUZCO Report Released Date/Time: Aug 08, 2024 10:54 AM Reporting Lab: [facility] [place] [facility] [address] [facility] [address] Performing Lab: [facility] [place] [place] [facility] [address] [address] [facility] [place] [facility] FOLATE (WROX) FOLATE [MASS/VOLU ME] IN SERUM OR PLASMA 4.07 ng/mL 5.2 08/08 L Specimen Type: SERUM No comment entered. Ordering Provider: ZAKI VERDUZCO Report Released Date/Time: Aug 08, 2024 10:54 AM Reporting Lab: [facility] [place] [place] [facility] [address] [facility] [address] Performing Lab: [place] [facility] [place] [place] [facility] [address] [facility] [address] [facility] [place] [facility] MICROALBU MIN CREATININ E RATIO PANEL MICROALBUM IN/CREATIN INE [MASS RATIO] IN URINE 354.2 mg/g 0 - 29.9 08/08 H Specimen Type: URINE No comment entered. Ordering Provider: ZAKI VERDUZCO Report Released Date/Time: Aug 08, 2024 10:54 AM Reporting Lab: [facility] [place] [facility] [address] [facility] [address] Performing Lab: [place] [facility] [place] [facility] [address] [facility] [address] [facility] [place] [facility] MICROALBU MIN CREATININ E RATIO PANEL MICROALBUM IN [MASS/VOLU ME] IN URINE 103.3 mg/dL 08/08 Specimen Type: URINE No comment entered. Ordering Provider: ZAKI VERDUZCO Report Released Date/Time: Aug 08, 2024 10:54 AM Reporting Lab: [facility] [place] [facility] [address] [facility] [address] Performing Lab: [facility] [place] [facility] [address] [facility] [address] [facility] [place] [facility] MICROALBU MIN CREATININ E RATIO PANEL CREATININE [MASS/VOLU ME] IN URINE 291.68 mg/dL 08/08 Specimen Type: URINE No comment entered. Ordering Provider: ZAKI VERDUZCO Report Released Date/Time: Aug 08, 2024 10:54 AM Reporting Lab: [facility] [place] [facility] [address] [facility] [address] Performing Lab: [facility] [place] [facility] [address] [facility] [address] [facility] [place] [facility] VITAMIN B12 COBALAMIN (VITAMIN B12) [MASS/VOLU ME] IN SERUM OR PLASMA 1849 pg/mL 200 - 900 08/08 H Specimen Type: SERUM No comment entered. Ordering Provider: ZAKI VERDUZCO Report Released Date/Time: Aug 08, 2024 10:54 AM Reporting Lab: [facility] [place] [facility] [address] [facility] [address] Performing Lab: [facility] [place] [facility] [address] [facility] [address] [facility] [place] [facility] LIPID PANEL FASTING CHOLESTERO L [MASS/VOLU ME] IN SERUM OR PLASMA 178 mg/dL 08/08 Specimen Type: SERUM No comment entered. Ordering Provider: ZAKI VERDUZCO Report Released Date/Time: Aug 08, 2024 10:54 AM Reporting Lab: [facility] [place] [facility] [address] [facility] [address] Performing Lab: [facility] [place] [facility] [address] [facility] [address] [facility] [place] [facility] LIPID PANEL FASTING TRIGLYCERI DE [MASS/VOLU ME] IN SERUM OR PLASMA 97 mg/dL 0 - 150 08/08 Specimen Type: SERUM No comment entered. Ordering Provider: ZAKI VERDUZCO Report Released Date/Time: Aug 08, 2024 10:54 AM Reporting Lab: [facility] [place] [facility] [address] [facility] [address] Performing Lab: [facility] [address] [facility] [address] [facility] [place] [facility] LIPID PANEL FASTING CHOLESTERO L IN LDL [MASS/VOLU ME] IN SERUM OR PLASMA BY CALCULARADHA N 97 mg/dL 0 - 129 08/08 Specimen Type: SERUM No comment entered. Ordering Provider: ZAKI VERDUZCO Report Released Date/Time: Aug 08, 2024 10:54 AM Reporting Lab: [facility] [address] [facility] [address] Performing Lab: [place] [facility] [place] [facility] [address] [facility] [address] [facility] LIPID PANEL FASTING CHOLESTERO L.TOTAL/CH OLESTEROL IN HDL [MASS RATIO] IN SERUM OR PLASMA 2.9 08/08 Specimen Type: SERUM No comment entered. Ordering Provider: ZAKI VERDUZCO Report Released Date/Time: Aug 08, 2024 10:54 AM Reporting Lab: [facility] [place] [facility] [address] [facility] [address] Performing Lab: [facility] [place] [facility] [address] [facility] [address] [facility] [place] [facility] LIPID PANEL FASTING CHOLESTERO L IN HDL [MASS/VOLU ME] IN SERUM OR PLASMA 62 mg/dL 40 - 60 08/08 H Specimen Type: SERUM No comment entered. Ordering Provider: ZAKI VERDUZCO Report Released Date/Time: Aug 08, 2024 10:54 AM Reporting Lab: [facility] [place] [facility] [address] [facility] [address] Performing Lab: [facility] [place] [facility] [address] [facility] [address] [facility] [place] [facility] BASIC METABOLIC PANEL (fasting) UREA NITROGEN [MASS/VOLU ME] IN SERUM OR PLASMA 22 mg/dL 7 - 25 08/08 Specimen Type: SERUM No comment entered. Ordering Provider: ZAKI VERDUZCO Report Released Date/Time: Aug 08, 2024 10:54 AM Reporting Lab: [place] [facility] [place] [facility] [address] [facility] [address] Performing Lab: [place] [facility] [place] [facility] [address] [facility] [address] [facility] [place] [facility] BASIC METABOLIC PANEL (fasting) GLUCOSE [MASS/VOLU ME] IN SERUM OR PLASMA 91 mg/dL 65 - 100 08/08 Specimen Type: SERUM No comment entered. Ordering Provider: ZAKI VERDUZCO Report Released Date/Time: Aug 08, 2024 10:54 AM Reporting Lab: [facility] [place] [address] [address] Performing Lab: [place] [facility] [place] [address] [address] [facility] BASIC METABOLIC PANEL (fasting) SODIUM [MOLES/VOL UME] IN SERUM OR PLASMA 138 mmol/L 135 - 145 08/08 Specimen Type: SERUM No comment entered. Ordering Provider: ZAKI VERDUZCO Report Released Date/Time: Aug 08, 2024 10:54 AM Reporting Lab: [place] [facility] [place] [place] [address] [address] Performing Lab: [facility] [place] [place] [address] [address] [facility] [place] [facility] BASIC METABOLIC PANEL (fasting) POTASSIUM [MOLES/VOL UME] IN SERUM OR PLASMA 4.8 mmol/L 3.5 - 5.0 08/08 Specimen Type: SERUM No comment entered. Ordering Provider: ZAKI VERDUZCO Report Released Date/Time: Aug 08, 2024 10:54 AM Reporting Lab: [place] [facility] [place] [place] [address] [place] [address] Performing Lab: [place] [facility] [place] [facility] [address] [facility] [address] [facility] [facility] BASIC METABOLIC PANEL (fasting) CHLORIDE [MOLES/VOL UME] IN SERUM OR PLASMA 105 mmol/L 100 - 110 08/08 Specimen Type: SERUM No comment entered. Ordering Provider: ZAKI VERDUZCO Report Released Date/Time: Aug 08, 2024 10:54 AM Reporting Lab: [place] [facility] [place] [place] [facility] [address] [facility] [address] Performing Lab: [facility] [address] [facility] [address] [facility] BASIC METABOLIC PANEL (fasting) CARBON DIOXIDE, TOTAL [MOLES/VOL UME] IN SERUM OR PLASMA 25 meq/L 20 - 30 08/08 Specimen Type: SERUM No comment entered. Ordering Provider: ZAKI VERDUZCO Report Released Date/Time: Aug 08, 2024 10:54 AM Reporting Lab: [facility] [place] [facility] [address] [facility] [address] Performing Lab: [place] [facility] [address] [facility] [address] [facility]N [facility] BASIC METABOLIC PANEL (fasting) CREATININE [MASS/VOLU ME] IN SERUM OR PLASMA 0.99 mg/dL 0.50 - 1.40 08/08 Specimen Type: SERUM No comment entered. Ordering Provider: ZAKI VERDUZCO Report Released Date/Time: Aug 08, 2024 10:54 AM Reporting Lab: [place] [facility] [place] [place] [facility] [address] [facility] [address] Performing Lab: [place] [facility] [place] [facility] [address] [facility] [address] [facility] BASIC METABOLIC PANEL (fasting) GLOMERULAR FILTRATION RATE/1.73 SQ M.PREDICTE D [VOLUME RATE/AREA] IN SERUM, PLASMA OR BLOOD BY CREATININE -BASED FORMULA (CKD-EPI 2021) 77 mL/min 60 08/08 Specimen Type: SERUM No comment entered. Ordering Provider: ZAKI VERDUZCO Report Released Date/Time: Aug 08, 2024 10:54 AM Reporting Lab: [facility] [place] [facility] [address] [facility] [address] Performing Lab: [facility]ENTERUSE[facility] [address] [facility] [address] [facility]VILL[facility]ENTERUSE [facility] HEMOGLOBI N A1C PANEL HEMOGLOBIN A1C/HEMOGL OBIN.TOTAL [...] 2024 10:54 AM Reporting Lab: [facility] [address] [facility] [address] [address]: [facility] [address] [facility] [address] [facility] Vital Signs Combined list of inpatient and outpatient Vital Signs from Department of Defense and Veterans Affairs, ranging from 12 months to all on record, depending upon the facility. Vital Sign Value Date Comments Source SYSTOLIC BLOOD PRESSURE 154 08/24/20 24 12:28:43 [place] DIASTOLIC BLOOD PRESSURE 78 12:28:43 [place] PULSE OXIMETRY 97 08/24/2024 12:28:43 [place] PAIN 0 08/24/2024 12:28:43 [place] HEIGHT 70 08/24/2024 12:28:43 [place] PULSE 68 08/24/2024 12:28:43 [place] RESPIRATION 20 08/24/2024 12:28:43 [place] SYSTOLIC BLOOD PRESSURE 155 08/09/20 24 09:58:25 [facility] DIASTOLIC BLOOD PRESSURE 78 024 09:58:25 [facility] [place] [facility] PULSE OXIMETRY 97 08/09/2024 09:58:25 [facility] [place] [facility] WEIGHT 179.8 08/09/2024 09:58:25 [facility] [...] ADM Date DC Date Status Disposition Source [place] OFF/OP EST JANUARY X REQ PHY/QHP [id number] Diagnos is: ICD-10- CM M54.50 Low back pain, unspeci fied
BARRY,JOSE Enriquez 04/20 [place] [facility] [id number] 04/20 [facility] [place] [facility] [facility] [place] En[facility] [id number] 04/20 [facility] [place] [facility] [place] En[facility] [id number] 04/21 [facility] [place] [facility] [place] En[facility] [id number] 04/22 [facility] [place] [facility] Encounter [id number] 05/08 [facility] [place] [facility] En[facility] [id number] 05/20 [facility] [place] [facility] Encounter [id number] ARSH [place] ON 05/20 [facility] [place] [facility] En[facility] [id number] 05/22 [facility] [place] [facility] En[facility] [id number] 05/28 [facility] [place] [place]OP EST JANUARY X REQ PHY/QHP [id number] Diagnos is: ICD-10- CM R20.2 Paresth esia of skin
LUBALou DOROTEO 06[place] [facility] En[facility] [id number] 06/03 [facility] [place] En[facility] [id number] 06/04 [facility] [place] Encounter [id number] 06/04 [facility] [place] [facility] OFF/OP EST JANUARY X REQ PHY/QHP [id number] Diagnos is: ICD-10- CM R68.89 Other general symptom s and signs<b r/> BARRY,ER IC K 06/05 [facility] [place] En[facility] [id number] 06/05 [facility] [place] [facility] [facility] En[facility] [id number] 06/08 [place] [facility] Encounter [id number] 06/10 [facility] [place] [facility] OFFICE O/P EST MOD 30-39 MIN [id number] Diagnos is: ICD-10- CM Z00.01 Encount er for general adult medical exam w abnorma l finding s
Lou VERDUZCO DOROTEO 06[place]23 [place] [facility] En[facility] [id number] 06/23 [facility] [place] [facility] SELF-HELP/ PEER SVC PER 15MIN [id number] Diagnos is: ICD-10- CM Z59.00 Homeles sness unspeci fied
ELISEO PRICE NTHIA 06/25 [place] [facility] OFF[facility] O/P EST LOW 20-29 MIN [id number] Diagnos is: ICD-10- CM D52.8 Other folate deficie ncy anemias
LUBA,A POLINARIO 06/30 [facility] OFFICE O/P NEW MOD 45-59 MIN [id number] Diagnos is: ICD-10- CM C61 Maligna nt neoplas m of prostat e
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
LUBA,A POLINARIO 07/06 [facility] [place] [facility] [place] [facility] Outpatient Encounter [id number] 07/14 [facility] [place] [facility] [place] [facility] Outpatient Encounter [id number] 07/16 [facility] [place] [facility] [facility] [place] [facility] OFFICE O/P NEW MOD 45-59 MIN [id number] Diagnos is: ICD-10- CM M54.59 Other low back pain
NICANOR MARIA RA 07/16 [facility] [place] En[facility] [id number] 07/17 [facility] [place] [facility] En[facility] [id number] 07/20 [facility] [place] [facility] [facility] En[facility] [id number] 07/21 [facility] [place] [facility] [facility] En[facility] [id number] 08/10 [facility] [place] [facility] [facility] En[facility] [id number] 08/14 [facility] [id number] 08/24 [facility] En[facility] [id number] 09/16 [facility] [place] OFFICE O/P EST LOW 20-29 MIN [id number] Diagnos is: ICD-10- CM I10 Essenti al (primar y) hyperte nsion<b r/> Lou VERDUZCO 09/18 [place] [facility] En[facility] [id number] 10/06 [facility] [id number] 10/06 [facility] [id number] 10/06 [facility] [id number] 10/06 [facility] Outpatient Encounter [id number] Lou VERDUZCO POLINARIO 10/06 [place] [facility] En[facility] [id number] 10/08 [facility] [id number] 10/14 [facility] [id number] 10/26 [facility] [id number] 12/03 [facility] En[facility] [id number] 12/03 [facility] OFFICE O/P EST MOD 30 MIN [id number] Diagnos is: ICD-10- CM R97.20 Elevate d prostat e specifi c antigen [PSA]<b r/> Lou VERDUZCO POLINARIO 12/21 [place] [facility] COMPRE OPH EXAM EST PT 1/> [id number] Diagnos is: ICD-10- CM H40.013 Open angle with borderl ine finding s, low risk, bilater al
MERHAR,ALANA H B 12/30 [facility] [facility] CMPTR OPHTH IMG OPTIC NERVE [id number] Diagnos is: ICD-10- CM H40.013 Open angle with borderl ine finding s, low risk, bilater al
MERHAR,ALANA H B 12/30 [facility] [place] [facility] LD OFFICE O/P EST MOD 30 MIN [id number] Diagnos is: ICD-10- CM W06.XXX A Fall from bed, initial encount er
Lou VERDUZCO HECTORMARLIN 01/21 [place] [facility] Outpatient Encounter [id number] 01/24 [facility] [place] [facility] [place] Outpatient Encounter [id number] 01/27 [facility] [place] [facility] [place] Outpatient Encounter [id number] 02/21 [facility] [place] [facility] [place] Outpatient Encounter [id number] 02/25 [facility] [place] [place] [facility] LD OFF/OP EST JANUARY X REQ PHY/QHP [id number] Diagnos is: ICD-10- CM L02.212 Cutaneo us abscess of back [any part, except buttock ]
LATISHA RIVERA 02/25 [place] [facility] Outpatient Encounter [id number] 02/25 [facility] [place] [facility] LD OFFICE O/P EST MOD 30 MIN [id number] Diagnos is: ICD-10- CM L02.818 Cutaneo us abscess of other sites<b r/> ROWDY MCLAIN 02/25 [place] [facility] Outpatient Encounter [id number] 03/02 [facility] DERM SVC/PX [id number] Diagnos is: ICD-10- CM Z13.89 Encount er for screeni ng for other disorde r
Sree POSADA [facility]10 [facility] [id number] Diagnos is: ICD-10- CM L82.1 Other seborrh eic keratos is
ADRIANNE MELISSA 03/14 [facility] [place] [facility] Outpatient Encounter [id number] 1.03/14 [place] [facility] [place] [facility] [place] [facility] Outpatient Encounter [id number] 1.03/14 [facility] [place] [facility] [place] [facility] Outpatient Encounter [id number] 1.03/18 [facility] [place] [facility] [facility]P EST MOD 30 MIN [id number] Diagnos is: ICD-10- CM N13.9 Obstruc tive and reflux uropath y, unspeci fied
Lou VERDUZCO 03/21 [facility] [place] [facility] [place] [facility] Outpatient Encounter [id number] 03/21 [facility] [place] [facility] QNHP OL DIG ASSMT&MGMT 5-10 [id number] Diagnos is: ICD-10- CM Z51.81 Encount er for therape utic drug level monitor ing<br/ > CHAY DAVIS 03/21 [place] [facility] [place] [facility] Outpatient Encounter [id number] 04/04 [facility] [place] Encounter [id number] 04/07 [facility] [place] Encounter [id number] 04/19 [facility] [place] 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
LUBA,A POLINARIO 04/27 [place] [facility]counter [id number] 1.05/20 [facility] [place] [facility] LD OFF/OP EST JANUARY X REQ PHY/QHP [id number] Diagnos is: ICD-10- CM Z23 Encount er for immuniz ation<b r/> ROMA,L BERTIN H 05/31 [place] [facility] Out[facility] Encounter [id number] 06/01 [facility] [place] Encounter [id number] 06/01 [facility] [place] Encounter [id number] 06/03 [facility] [place] Encounter [id number] 1.06/07 [facility] [place] Encounter [id number] 06/07 [facility] [place] Encounter [id number] 06/13 [facility] [place] Encounter [id number] 06/16 [facility] [place] [facility] OFFICE O/P EST MOD 30 MIN [id number] Diagnos is: ICD-10- CM Z01.810 Encount er for preproc edural cardiov ascular examina tion
Lou [facility]DUZCO [facility]21 [facility] En[facility] [id number] 06/23 [facility] [place] Encounter [id number] 06/24 [facility] [place] Encounter [id number] 06/29 [facility] [place] Encounter [id number] 06/30 [facility] [place] Encounter [id number] 1.07/06 [facility] [place] Encounter [id number] 07/07 [facility] [place] Encounter [id number] 1.07/07 [facility] [place] Encounter [id number] 07/18 [facility] [place] Out[facility] Encounter [id number] 07/19 [facility] [place] Encounter [id number] 07/20 [facility] [place] Out[facility] Encounter [id number] 07/26 [facility] [place] Encounter [id number] 07/29 [facility] [place] Out[facility] Encounter [id number] 08/04 [facility] [place] OFFICE O/P EST MOD 30 MIN [id number] 1BY. 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
LUBA,A POLI08/09 [place] [facility] Out[facility] Encounter [id number] 08/10 [facility] Out[facility] Encounter [id number] [facility] [place] 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
LUBA,A POLINARIO 08/17 [place] [facility] FIT SPECTACLES BIFOCAL [id number] 1. Diagnos is: ICD-10- CM Z46.0 Encount er for fit/adj st of spectac les and contact lenses< br/> LYNDSAYJEEVAN FEI 08/22 [facility] [place] [place] [facility] [place] [facility] Outpatient Encounter [id number] 08/22 [facility] [place] [facility] [place] [facility] Outpatient Encounter [id number] 1.08/24 [facility] [place] 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
HUMBERTO ROY A 08/24 [facility] [place] [facility] [place] [facility] Outpatient Encounter [id number] 08/25 [facility] [place] [facility] [place] [facility] Outpatient Encounter [id number] 1.08/29 [facility] [place] [facility] [place] LD OFFICE O/P EST LOW 20 MIN [id number] Diagnos is: ICD-10- CM C61 Maligna nt neoplas m of prostat e
LUBA,A POLINARIO 08/31 [place] [facility] Outpatient Encounter [id number] 09/05 [facility] [place] 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
LUBA,A POLINARIO 09/06 [facility] IE Social History Combined list of available smoking, tobacco, and other social history from Department of Defense and Veterans Affairs facilities. 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 Additional future care activities may be listed in the Assessment and Plan section. Date/Time Care Activity Care Activity Detail Facili ty 09/07/2024 AMBULATORY - MEDICINE [facility] 12/13/2024 AMBULATORY - MEDICINE AMBULATORY - MEDICI [facility] 01/02/2025 AMBULATORY - MEDICINE [facility] 08/09/2024 Consult Order [facility] Cons Insurance Application Investigator's Choice [facility] Advance Directives List of completed, amended, or rescinded Advance Directives on record at Department of Veterans Affairs facilities. An actual copy of the Directive is not included. Date Advance Directive Provider Source 04/04/2024 ADVANCE DIRECTIVE [facility]
--- OUTSIDE RECORDS SUMMARY | 2024-09-07 15:22 | XMS_ITS | Encounter Summary ---
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 [facility] Address [address] [place] [id number] Care Team Providers Care Siebel Solution Architect Name Role Phone ROWENA ROY Primary Care [...] Segal's Name Patient's Relationship to Policy Segal [facility] ADVANTAGE [place] INDIV IDUAL - [place] Sep 21, 2023 [id number] [phone] GENET DUGAN [facility] ([facility]) Sep 21, 2023 [id number] [phone] MARVIN DUGANI S PATIENT [place]KY MEDICAID [place] PLAN May 22, 2022 MEDICAI D [id number] GENET DUGAN S PATIENT MEDICARE ([facility]) MEDICARE (M) PART B May 22, 2022 PART B [id number] MARVIN DUGANI S PATIENT MEDICARE ([facility]) MEDICARE (M) PART A Feb 19, 2009 PART A [id number] DUGAN,GENET S PATIENT MEDICARE PART D ([place]) MEDICARE (M) PART D Jul 22, 2022 PART D [id number] [phone] GENET DUGAN S PATIENT [facility] (WNR) MEDICARE ADVANTAGE [facility] (WNR) Sep 21, 2022 [id number] GENET DUGAN PATIENT [facility] (WNR) MEDICARE [facility] (WNR) Sep 21, 2022 [id number] [phone] GNEET DUGAN PATIENT Selected Encounter This section includes [...] - MEDICINE [place] [facility] [place] [facility] Dec 31, 2023 09:00 AM AMBULATORY - MEDICINE [place] [facility] [place] [facility] Dec 31, 2023 10:30 AM AMBULATORY - [place]ICINE [place] [facility] [place] [place] [facility] January 22, 2024 02:30 PM AMBULATORY - MEDICINE [place] [facility] [place] [facility] Feb 26, 2024 01:00 PM AMBUL[place]ORY - [place]ICINE [place] Feb 26, 2024 01:15 PM AMBULATORY - MEDICINE [place] Mar 10, 2024 09:00 AM AMBULATORY - NONE [facility] [place] [facility] Mar 18, 2024 09:30 AM AMBULATORY - MEDICINE [place] [facility] [place] [facility] Mar 21, 2024 09:30 AM AMBULATORY - [place]ICINE [place] [facility] [place] [facility] Lab Results: +/- 30 days [...] Comment Oct 06, 2023 12:48 PM [facility] PSA Specimen Type: SERUM No comment entered. Ordering Provider: HAYLEY VERDUZCO Report Released Date/Time: Oct 06, 2023 12:38 PM Reporting Lab: [facility] [address] [address] Performing Lab: [facility] [address] [id number] PSA 21.53 ng/mL H 0.00-4.00 Sep 18, 2023 12:07 PM [facility] FOLATE Specimen Type: SERUM No comment entered. Ordering Provider: HAYLEY VERDUZCO Report Released Date/Time: Sep 18, 2023 11:50 AM Reporting Lab: [facility]ITALRHART[facility] [address] [facility] [address] Performing Lab: [facility] [address] [facility] [address] FOLATE 3.83 ng/mL L >5.2 Advance Directives: [...] 2024 [facility] Radiology Reports: +/- 30 days [...] CT ABDOMEN /PELVIS W/WO CONTRAST: JAKE DUGAN [id number] -[id number] M Exm Date: OCT 14, 2023@14:00 Req Phys: NOLAN VERDUZCO Pat Loc: [facility]/OUTSIDE IMAGING NON-CNT (R Img Loc: OUTSIDE GENERAL RADIOLOGY Service: Unknown (Case 95 COMPLETE) OUTSIDE CT ABDOMEN/PELVIS W/WO CO(RAD Detailed) CPT:43919 Reason for Study: outside images have been uploaded for continuity of care Clinical History: outside images have been uploaded for continuity of care Report Status: Electronically Filed Date Reported: OCT 14, 2023 Report: THIS EXAM WAS PERFORMED AND INTERPRETED AT AN OUTSIDE HOSPITAL Impression: THIS EXAM WAS PERFORMED AND INTERPRETED AT AN OUTSIDE HOSPITAL Primary Diagnostic Code: VERIFIED BY: / *ELECTRONICALLY FILED* [place] [facility] [place] [facility] Encounter Notes: All [...] of Service: Sep Facility and or Provider: [facility] Contact Information: PCP of Record: NOLAN VERDUZCO Next visit with PCP: 12/23/2023 09:30 CWM/SO/PACT 9 12/31/2023 09:00 CWM/NO/OPTOMETRY 1 AM 03/18/2024 09:30 CWM/SO/PACT 9 NURSING Primary Care May keep copies of this document for up to 14 days and send the original for scanning. /mariana/ KENIA DELGADO [employer]ANC[employer] MENAGERIE CARETAKER Signed: 10/06/2023 11:18 Receipt Acknowledged By: 10/06/2023 13:31 /mariana/ ISABEL FREDERICK LPN LPN 10/06/2023 11:29 /mariana/ WAGNER MOORE,RN-BC REGISTERED NURSE (RN) 10/06/2023 ADDENDUM STATUS: COMPLETED THIS LICENSED MASSAGE PRACTITIONER WILL LEAVE COPY OF [facility] PSA ORDER IN PROVIDERS MAILBOX FOR REVIEW. /mariana/ KENIA DELGADO ADVANCED MENAGERIE CARETAKER Signed: 10/06/2023 11:19 KENIA DELGADO [place] Oct 06, 2023 11:08 AM PRIMARY CARE [...] X ]Other The states they are: [ X ]Waiting [ ]Not Waiting No Walk in visit scheduled with PACT Nurse [ X ] At this encounter the [place]'s demographics were verified. [ X ] At this encounter the 's Insurance information was verified. [ X ] At this encounter the below scheduled visits for the [place] were discussed and appointment reminder card was offered. IS REQUEST PSA ORDER FROM [facility] IS ADDED TO [facility]. LABS TO COMPLETE. ALSO IS REQUESTING TO BE SEEN BY PACT PROVIDER SOON POSSIBLE. DECLINE SO/SICK/CALL VISIT. Future appointments: 12/23/2023 09:30 CWM/SO/PACT 9 12/31/2023 09:00 CWM/NO/OPTOMETRY 1 AM 03/18/2024 09:30 CWM/SO/PACT 9 NURSING /mariana/ KENIA DELGADO ADVANCED MENAGERIE CARETAKER Signed: 10/06/2023 11:11 Receipt Acknowledged By: 10/06/2023 13:01 /mariana/ IASBEL FREDERICK LPN LPN 10/06/2023 11:29 /mariana/ WAGNER MOORE,RN-BC REGISTERED NURSE (RN) 10/06/2023 ADDENDUM STATUS: COMPLETED This feature writer spoke with he was requesting PSA order to competed today order was entered by Provider. /mariana/ ISABEL FREDERICK LPN LPN Signed: 10/06/2023 13:01 KENIA DELGADO
--- OUTSIDE RECORDS SUMMARY | 2024-09-07 15:22 | XMS_ITS | Encounter Summary ---
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 Address [address] [place] [address] Care Team Providers Care Flight Dynamicist Name Role Phone ROWENA ROY Primary Care [...] Segal's Name Patient's Relationship to Policy Segal [facility] ([facility]) MEDICARE ADVANTAGE [place] INDIV IDUAL - [place] Sep 21, 2023 [id number] [phone] GENET DUGAN S [facility] MEDICARE [facility] ([facility]) Sep 21, 2023 [id number] [phone] MARVIN DUGANI S PATIENT HUSKY MEDICAID HUSKY PLAN May 22, 2022 MEDICAI D [id number] GENET DUGAN S PATIENT MEDICARE ([facility]) MEDICARE () PART B May 22, 2022 PART B [id number] GENET DUGAN S PATIENT MEDICARE ([facility]) MEDICARE () PART A Feb 19, 2009 PART A [id number] GENET DUGAN S PATIENT MEDICARE PART D ([facility]) MEDICARE () PART D Jul 22, 2022 PART D [id number] GENET DUGAN S PATIENT [facility] (WNR) MEDICARE ADVANTAGE [facility] (WNR) Sep 21, 2022 [id number] GENET DUGAN PATIENT [facility] (WNR) MEDICARE ADVANTAGE [facility] (WNR) Sep 21, 2022 [id number] [phone] GENET DUGAN PATIENT Selected Encounter This section includes the information on record at [place] for the Encounter. Date/Time Encounter Type Encounter Description Reason Provider Source Sep 18, 2023 11:00 AM OFFICE O/P EST LOW 20-29 MIN PRIMARY CARE/MEDICINE ICD-10-CM I10 Essential (primary) hypertension GAVIOTA VERDUZCO [place] Encounter Template Text not used by [place] Assessments - Encounter Diagnoses This section includes the primary and secondary diagnoses documented for the Encounter. Date/Time Primary/Secondary Diagnosis Diagnosis Name Provider Source Sep 30, 2023 04:42 PM PRIMARY Essential (primary) hypertension HAYLEY VERDUZCO [place] Sep 30, 2023 04:42 PM SECONDARY Encounter for immunization YOLYCAROLA Tammy [place] Sep 30, 2023 04:42 PM SECONDARY Generalized anxiety disorder HAYLEY VERDUZCO [place] Plan of Treatment: Future Appointments (+ 6 months) and Future Tests (+/- 45 days) The Plan of Treatment section includes future care activities for the patient from all [place] treatmentfacilities. This section includes future appointments and future orders which are active, pending or scheduled. Future Appointments This section includes appointments that were scheduled to occur 6 months from the date of the Encounter, up to a maximum of 20 appointments. The data comes from all [place] treatment facilities. Appointment Date/Time Appointment Type Appointme nt Facility Name Dec 22, 2023 10:00 AM AMBULATORY - MEDICINE [place] [facility] [place] [facility] Dec 31, 2023 09:00 AM AMBULATORY - MEDICINE [place] [facility] [facility] Dec 31, 2023 10:30 AM AMBULATORY - MEDICINE [place] [facility] [place] [facility] January 22, 2024 02:30 PM AMBULATORY - MEDICINE [place] [facility] [place] [facility] Feb 26, 2024 01:00 PM AMBULATORY - MEDICINE [facility] Feb 26, 2024 01:15 PM [facility] Mar 10, 2024 09:00 AM AMBULATORY - NONE [place] [facility] [place] [facility] Mar 18, 2024 09:30 AM [facility]BULATORY - [facility] [place] [facility] Lab Results: +/- 30 days of the encounter This section includes the Chemistry and Hematology Lab Results on record with [place] for the patient. Radiology Reports and Pathology Reports are provided separately, in subsequent sections. Lab Results This section contains the Chemistry/Hematology Results that were resulted 30 days before or 30 daysafter the date of the Encounter. Date/Time Source Result Type Result - Unit Interpretation Reference Range Comment Oct 06, 2023 12:48 PM [place] [facility] PSA Specimen Type: SERUM No comment entered. Ordering Provider: HAYLEY VERDUZCO Report Released Date/Time: Oct 06, 2023 12:38 PM Reporting Lab: [facility] [address] [address] Performing Lab: [place] [facility] [address] [facility] [address] PSA 21.53 ng/mL H 0.00-4.00 Sep 18, 2023 12:07 PM [facility] FOLATE Specimen Type: SERUM No comment entered. Ordering Provider: HAYLEY VERDUZCO Report Released Date/Time: Sep 18, 2023 11:50 AM Reporting Lab: [facility] [address] [facility] [address] Performing Lab: [place] CNTR [facility] [address] [facility] [address] FOLATE 3.83 ng/mL L >5.2 Immunizations: All [...] and tobacco- related health factors from the [place] facility where the Encounter took place. Current Smoking Status This section includes the most current smoking, or tobacco-related health factor, from the [place] facility where the Encounter took place. Date/Time Current Smoking Status Comment Facil ity Jun 23, 2023 09:00 AM VA-TOBACCO QUIT 15 YRS OR MORE [place] Tobacco Use History This section includes a history of the smoking, or tobacco-related health factors, that were collected on or before the date of the Encounter. The data comes from the [facility] where the Encounter took place. Date/Time Smoking Status/Tobacco Use Comment F acility Jun 23, 2023 09:00 AM VA-TOBACCO QUIT 15 YRS OR MORE [place] May 01, 2022 01:30 PM VA-TOBACCO FORMER USER [place] May 01, 2022 01:30 PM VA-TOBACCO QUIT 15 YRS OR MORE [place] Apr 15, 2021 03:00 PM VA-TOBACCO FORMER USER [place] Apr 15, 2021 03:00 PM VA-TOBACCO QUIT 15 YRS OR MORE [place] Oct 20, 2018 12:53 PM VA-TOBACCO FORMER USER [place] Oct 20, 2018 12:53 PM VA-TOBACCO QUIT 15 YRS OR MORE [place] Jul 03, 2017 10:33 AM QUIT TOBACCO USE > 7 YEARS AGO quit 25yrs ago [place] February 13, 2016 08:46 AM LIFETIME NON-TOBACCO USER [place] Advance Directives: All historical and current Section Date Range: From patient's date of to the date document was created. This section includes ALL of a patient's completed or amended [place] Advance and Rescinded Directives. The entries below indicate that a directive exists for the patient, but an actual copy is not included with this document. The data comes from all [facility]. Date Advance Directives Provider Source Apr 04, 2024 [facility]VANCE [facility] Radiology Reports: +/- 30 days [...] the Encounter. The data comes from all [place] treatment facilities. Date/Time Radiology Report Provider Source Oct 14, 2023 02:[address] ABDOMEN /PELVIS W/WO CONTRAST: JAKE DUGAN [id number] -1945 M Exm Date: OCT 14, 2023@14:00 Req Phys: LUBANOLAN Pat Loc: [facility]/OUTSIDE IMAGING NON-CNT (R Img Loc: OUTSIDE GENERAL RADIOLOGY Service: Unknown (Case [id number] COMPLETE) OUTSIDE CT ABDOMEN/PELVIS W/WO CO(RAD Detailed) CPT:67854 Reason for Study: outside images have been uploaded for continuity of care Clinical History: outside images have been uploaded for continuity of care Report Status: Electronically Filed Date Reported: OCT 14, 2023 Report: THIS EXAM WAS PERFORMED AND INTERPRETED AT AN OUTSIDE HOSPITAL Impression: THIS EXAM WAS PERFORMED AND INTERPRETED AT AN OUTSIDE HOSPITAL Primary Diagnostic Code: VERIFIED BY: / *ELECTRONICALLY FILED* [place] [facility] Encounter Notes: All associated encounter notes [...] 5. Paraesthesia of lower extremity (SNOMED CT [id number]) previously on gabapentin recently with objective signs of dminished circulation to LEFT foot only initial screen for metabolic/nutritional causes of neuropathy unrevealing No show to neurology NCS, Summer 2020 No show to Vascular consult, Summer 2020 6. status post appendectomy 7. Diverticular disease normal colonoscopy August, 8. Osteoarthritis (SNOMED CT [id number]) C/S worst at C6-C7 09/06 mod OA Interphalamgeal joint right thumb 09/06 9. Generalized anxiety disorder 10. Epilepsy [facility] [id number], CELINA Link OV 12-05-15 11. Essential hypertension [place] [id number], CELINA Link OV 12-05-15 12. Atypical chest pain [facility] 794 2511, CELINA Link OV 12-05-15 02/13/16 EKG [...] MD PHYSICIAN Signed: 09/30/2023 16:43 NOLAN VERDUZCO [place] Sep 18, 2023 11:39 AM PREVENTIVE MEDICIN [...] Program at this time. is leaving to [place] Hepatitis A Vaccine for High Risk: Administered: HEP A, ADULT Date Administered: Sep 18, 2023 11:00 Series: Series 1 Fan Mail Editor: [employer] Lot: [id number] Exp Date: Aug 25, 2025 [facility]: [phone] Admin Route/Site: INTRAMUSCULAR/RIGHT DELTOID Dosage: 1mL Vaccine Information Statement(s): HEPATITIS A VACCINE VIS Jul 05, 2021 (SINGAPOREAN) Order By: Policy Administered By: Em Garcia Override Reason: agreed to get this visit Combination Hepatitis A / Hepatitis B vaccine (3 dose series) COVID-19 Immunization: Moderna Monovalent (Spikevax) Administered: COVID-19 (MODERNA), MRNA, LNP-S, PF, 50 MCG/0.5 ML (AGES 12+ YEARS) Date Administered: Sep 18, 2023 11:00 Series: Booster Fan Mail Editor: [employer]. Lot: [id number] Exp Date: February 18, 2024 [facility]: [phone] Admin Route/Site: INTRAMUSCULAR/LEFT DELTOID Dosage: .5mL Vaccine Information Statement(s): COVID-19 MRNA VACCINE (12+ YRS) VACCINE VIS Jul 09, 2023 (SINGAPORE[place]) Order By: Policy Administered By: Em Garcia Override Reason: leavin to [place] and agreed to get today Vaccine administered without complications. The patient was advised to remain in the facility for 15 minutes post vaccination. /mariana/ EM GARCIA LPN LPN Signed: 09/18/2023 11:47 EM GARCIA [place]
--- OUTSIDE RECORDS SUMMARY | 2024-09-07 15:23 | XMS_ITS | Encounter Summary ---
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 [place]) Organization Department of [place] Address [address] [place] [address] Care Team Providers Care Room Cleaner Name Role Phone ROWENA ROY Primary Care [...] Segal's Name Patient's Relationship to Policy Segal [facility]IC[facility] ADVANTAGE [place] INDIV [place]UAL - [place] Sep 21, 2023 [id number] [phone] GENET [facility]UGAN S [facility]) [facility]AGE [facility] ([facility]) Sep 21, 2023 [id number] [phone] DUGAN,GENET S PATIENT HUSKY MEDICAID HUSKY PLAN May 22, 2022 MEDICAI D [id number] MARVIN DUGANI S PATIENT MEDICARE (WN) MEDICARE (M) PART B May 22, 2022 PART B [id number] DUGAN,GENET S PATIENT MEDICARE (WNR) MEDICARE (M) PART A Feb 19, 2009 PART A [id number] DUGAN,GENET S PATIENT MEDICARE PART D (WNR) MEDICARE (M) PART D Jul 22, 2022 PART D [id number] [phone] GENET DUGAN PATIENT [facility] (WNR) MEDICARE ADVANTAGE [facility] (WNR) Sep 21, 2022 [id number] GENET DUGAN PATIENT [facility] (WNR) MEDICARE [facility] (WNR) Sep 21, 2022 [id number] [phone] GENET DUGAN PATIENT Selected Encounter This section includes the information on record at ID for the Encounter. Date/Time Encounter Type Encounter Description Reason Pro vider Source Oct 06, 2023 12:00 PM Outpatient Encounter COMMUNITY CARE CONSULT IHE Encounter Template Text not used by ID Plan of Treatment: Future Appointments (+ 6 months) and Future Tests (+/- 45 days) The Plan of Treatment section includes future care activities for the patient from all [place] treatmentfacilities. This section includes future appointments and future orders which are active, pending or scheduled. Future Appointments This section includes appointments that were scheduled to occur 6 months from the date of the Encounter, up to a maximum of 20 appointments. The data comes from all [place] treatment facilities. Appointment Date/Time Appointment Type Appointme nt Facility Name Dec 22, 2023 10:00 AM AMBULATORY - MEDICINE [place] [facility] Dec 31, 2023 09:00 AM AMBULATORY - MEDICINE [place] [facility] Dec 31, 2023 10:30 AM AMBULATORY - MEDICINE [place] [facility] January 22, 2024 02:30 PM AMBULATORY - MEDICINE [place] [facility] Feb 26, 2024 01:00 PM AMBULATORY - [place]ICINE [place] Feb 26, 2024 01:15 PM AMBULATORY - MEDICINE [place] Mar 10, 2024 09:00 AM AMBULATORY - NONE [place] [facility] Mar 18, 2024 09:30 AM AMBULATORY - MEDICINE [place] [facility] Mar 21, 2024 09:30 AM AMBULATORY - MEDICINE [place] [facility] Lab Results: +/- 30 days [...] Range Comment Oct 06, 2023 12:48 PM [facility] PSA Specimen Type: SERUM No comment entered. Ordering Provider: HAYLEY VERDUZCO Report Released Date/Time: Oct 06, 2023 12:38 PM Reporting Lab: [facility] [address] [address] Performing Lab: [facility] [address] [facility] [address] PSA 21.53 ng/mL H 0.00-4.00 Sep 18, 2023 12:07 PM [facility] FOLATE Specimen Type: SERUM No comment entered. Ordering Provider: HAYLEY VERDUZCO Report Released Date/Time: Sep 18, 2023 11:50 AM Reporting Lab: [facility] [address] [address] Performing Lab: [facility] [address] [facility] [address] FOLATE 3.83 ng/mL L >5.2 Advance Directives: [...] this document. The data comes from all [place] facilities. Date Advance Directives Provider Source Apr 04, 2024 ADVANCE DIRECTIVE CHAIPNCITO DEE [facility] Radiology Reports: +/- 30 [...] the Encounter. The data comes from all [place] treatment facilities. Date/Time Radiology Report Provider Source Oct 14, 2023 02:[address] ABDOMEN /PELVIS W/WO CONTRAST: JAKE DUGAN [id number] -1945 M Exm Date: OCT 14, 2023@14:00 Req Phys: LUBA,NOLAN Pat Loc: [facility]/OUTSIDE IMAGING NON-CNT (R Img Loc: OUTSIDE GENERAL RADIOLOGY Service: Unknown (Case 95 COMPLETE) OUTSIDE CT ABDOMEN/PELVIS W/WO CO(RAD Detailed) CPT:77422 Reason for Study: outside images have been uploaded for continuity of care Clinical History: outside images have been uploaded for continuity of care Report Status: Electronically Filed Date Reported: OCT 14, 2023 Report: THIS EXAM WAS PERFORMED AND INTERPRETED AT AN OUTSIDE HOSPITAL Impression: THIS EXAM WAS PERFORMED AND INTERPRETED AT AN OUTSIDE HOSPITAL Primary Diagnostic Code: VERIFIED BY: / *ELECTRONICALLY FILED* [facility] Encounter Notes: All associated encounter notes [...] REQUIRED Electronically Filed: 10/20/2023 by: SUNITA MCDONOUGH [facility]
--- OUTSIDE RECORDS SUMMARY | 2024-09-07 15:23 | XMS_ITS | Encounter Summary ---
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 Address [address] [place] [phone] Care Team Providers Care Hydrotherapist Name Role Phone ROWENA ROY Primary Care [...] Segal's Name Patient's Relationship to Policy Segal [facility] (R) MEDICARE ADVANTAGE [place] IN[place] - [place] Sep 21, 2023 [id number] [phone] GENET [facility]UGAN S [facility]) MEDIC[facility] ADVANTAGE [facility] ([facility]) Sep 21, 2023 [id number] [phone] DUGAN,GENET S PATIENT HUSKY MEDICAID HUSKY PLAN May 22, 2022 MEDICAI D [id number] MARVIN DUGANI S PATIENT MEDICARE ([facility]) MEDICARE (M) PART B May 22, 2022 PART B [id number] DUGAN,GENET S PATIENT MEDICARE (WN) MEDICARE (M) PART A Feb 19, 2009 PART A [id number] [id number] [phone] DUGAN,GENET S PATIENT MEDICARE PART D ([place]NR) MEDICARE (M) PART D Jul 22, 2022 PART D [id number] [phone] GENET DUGAN S PATIENT [facility] (WNR) MEDICARE ADVANTAGE [facility] (WNR) Sep 21, 2022 [id number] GENET DUGAN PATIENT [facility] (WNR) MEDICARE [facility] (WNR) Sep 21, 2022 [id number] [phone] GENET DUGAN PATIENT Selected Encounter This section [...] 22, 2023 10:00 AM AMBULATORY - MEDICINE [place] [facility] Dec 31, 2023 09:00 AM AMBULATORY - MEDICINE [place] [facility] Dec 31, 2023 10:30 AM AMBULATORY - MEDICINE [place] [facility] January 22, 2024 02:30 PM AMBULATORY - MEDICINE [place] [facility] Feb 26, 2024 01:00 PM AMBULATORY - MEDICINE [place] Feb 26, 2024 01:15 PM AMBULATORY - MEDICINE [place] Mar 10, 2024 09:00 AM AMBULATORY - NONE [place] [facility] Mar 18, 2024 09:30 AM AMBULATORY - MEDICINE [place] [facility] Mar 21, 2024 09:30 AM AMBULATORY - MEDICINE [place] [facility] Lab Results: +/- 30 days [...] Range Comment Oct 06, 2023 12:48 PM [facility] PSA Specimen Type: SERUM No comment entered. Ordering Provider: HAYLEY VERDUZCO Report Released Date/Time: Oct 06, 2023 12:38 PM Reporting Lab: [facility] [address] [facility] [address] Performing Lab: [facility] [address] [facility] [facility] [facility] [address] PSA 21.53 ng/mL H 0.00-4.00 Sep 18, 2023 12:07 PM [facility] FOLATE Specimen Type: SERUM No comment entered. Ordering Provider: HAYLEY VERDUZCO Report Released Date/Time: Sep 18, 2023 11:50 AM Reporting Lab: [facility] [address] [facility] [facility] [address] Performing Lab: [facility] [address] [facility] [address] FOLATE 3.83 ng/mL L >5.2 Advance Directives: [...] Source Apr 04, 2024 ADVANCE DIRECTIVE [facility] Radiology Reports: [...] the Encounter. The data comes from all [place] treatment facilities. Date/Time Radiology Report Provider Source Oct 14, 2023 02:[address] ABDOMEN /PELVIS W/WO CONTRAST: JAKE DUGAN [id number] -[id number] M Exm Date: OCT 14, 2023@14:00 Req Phys: LUBA,NOLAN Pat Loc: [facility]/OUTSIDE IMAGING NON-CNT (R Img Loc: OUTSIDE GENERAL RADIOLOGY Service: Unknown (Case 95 COMPLETE) OUTSIDE CT ABDOMEN/PELVIS W/WO CO(RAD Detailed) CPT:44282 Reason for Study: outside images have been uploaded for continuity of care Clinical History: outside images have been uploaded for continuity of care Report Status: Electronically Filed Date Reported: OCT 14, 2023 Report: THIS EXAM WAS PERFORMED AND INTERPRETED AT AN OUTSIDE HOSPITAL Impression: THIS EXAM WAS PERFORMED AND INTERPRETED AT AN OUTSIDE HOSPITAL Primary Diagnostic Code: VERIFIED BY: / *ELECTRONICALLY FILED* [facility] Encounter Notes: All associated encounter notes This section contains the clinical notes associated to the Encounter. Date/Time Encounter Note(s) Provider Source Oct 06, 2023 12:00 AM NONVA DIAGNOSTIC Katelyn BE REPORT: LOCAL TITLE: NON-VA DIAGNOSTICS STANDARD TITLE: NONVA DIAGNOSTIC STUDY REPORT DATE OF NOTE: OCT 06, 2023 ENTRY DATE: OCT 15, 2023@12:02:31 AUTHOR: ANIABL SHEARER EXP COSIGNER: URGENCY: STATUS: COMPLETED VistA Imaging - Scanned Document SCANNED DOCUMENT SIGNATURE NOT REQUIRED Electronically Filed: 10/15/2023 by: ANIBAL SHEARER PUMPER HEAD ANIBAL SHEARER [facility]
--- OUTSIDE RECORDS SUMMARY | 2024-09-07 15:23 | XMS_ITS ---
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 Organization [place] Address [address] [place] [address] Care Team Providers Care Sandfill Operator Surface Name Role Phone ROWENA ROY Primary Care [...] INDIV IDUAL - [place] Sep 21, 2023 [id number] [phone] GENET DUGAN S [facility]) MEDIC[facility] ADVANTAGE [facility] ([facility]) Sep 21, 2023 [id number] A [id number] [phone] DUGAN,GENET S PATIENT HUSKY MEDICAID HUSKY PLAN May 22, 2022 MEDICAI D [id number] MARVIN DUGANI S PATIENT MEDICARE (WN) MEDICARE (M) PART B May 22, 2022 PART B [id number] [phone] DUGAN,GENET S PATIENT MEDICARE (WNR) MEDICARE (M) PART A Feb 19, 2009 PART A [id number] [phone] DUGAN,GENET S PATIENT MEDICARE PART D (WNR) MEDICARE (M) PART D Jul 22, 2022 PART D [id number] [phone] GENET DUGAN PATIENT [facility] (WNR) MEDICARE ADVANTAGE [facility] (WNR) Sep 21, 2022 [id number] GENET DUGAN PATIENT [facility] MCR (WNR) MEDICARE ADVANTAGE [facility] (WNR) Sep 21, 2022 [id number] GENET DUGAN PATIENT Selected Encounter This section [...] 22, 2023 10:00 AM AMBULATORY - MEDICINE [place] [facility] Dec 31, 2023 09:00 AM AMBULATORY - MEDICINE [place] [facility] [place] [facility] Dec 31, 2023 10:30 AM AMBULATORY - MEDICINE [place] [facility] [place] [facility] January 22, 2024 02:30 PM AMBULATORY - MEDICINE [place] [facility] Feb 26, 2024 01:00 PM [facility]ORY - [place]IC[place] Feb 26, 2024 01:15 PM AMBULATORY - MEDICINE [place] Mar 10, 2024 09:00 AM AMBULATORY - NONE [place] [facility] [place] [facility] Mar 18, 2024 09:30 AM AMBULATORY - MEDICINE [place] [facility] Mar 21, 2024 09:30 AM AMBULATORY - MEDICINE [place] [facility] Apr 07, 2024 08:30 AM AMBULATORY - MEDICINE [place] [facility] Lab Results: +/- 30 days of the encounter This section includes the Chemistry and Hematology Lab Results on record with [place] for the patient. Radiology Reports and Pathology Reports are provided separately, in subsequent sections. Lab Results This section contains the Chemistry/Hematology Results that were resulted 30 days before or 30 daysafter the date of the Encounter. Date/Time Source Result Type Result - Unit Interpretation Reference Range Comment Oct 06, 2023 12:48 PM [facility] PSA Specimen Type: SERUM No comment entered. Ordering Provider: HAYLEY VERDUZCO Report Released Date/Time: Oct 06, 2023 12:38 PM Reporting Lab[facility] [address] [facility] [address] Performing [facility]: [facility] [address] [facility] [address] PSA 21.53 ng/mL H 0.00-4.00 Sep 18, 2023 12:07 PM [facility] FOLATE Specimen Type: SERUM No comment entered. Ordering Provider: HAYLEY VERDUZCO Report Released Date/Time: Sep 18, 2023 11:50 AM Reporting Lab: [facility] [address] [facility] [address] Performing Lab: [facility] [address] [address] FOLATE 3.83 ng/mL L >5.2 Advance Directives: [...] Source Apr 04, 2024 [facility] Radiology Reports: +/- 30 days [...] the Encounter. The data comes from all [place] treatment facilities. Date/Time Radiology Report Provider Source Oct 14, 2023 02:[address] ABDOMEN /PELVIS W/WO CONTRAST: JAKE DUGAN [id number] -[id number] M Exm Date: OCT 14, 2023@14:00 Req Phys: LUBA,NOLAN Pat Loc: [facility]/OUTSIDE IMAGING NON-CNT (R Img Loc: OUTSIDE GENERAL RADIOLOGY Service: Unknown (Case [id number] COMPLETE) OUTSIDE CT ABDOMEN/PELVIS W/WO CO(RAD Detailed) CPT:28450 Reason for Study: outside images have been uploaded for continuity of care Clinical History: outside images have been uploaded for continuity of care Report Status: Electronically Filed Date Reported: OCT 14, 2023 Report: THIS EXAM WAS PERFORMED AND INTERPRETED AT AN OUTSIDE HOSPITAL Impression: THIS EXAM WAS PERFORMED AND INTERPRETED AT AN OUTSIDE HOSPITAL Primary Diagnostic Code: VERIFIED BY: / *ELECTRONICALLY FILED* [facility] Encounter Notes: All associated encounter notes [...] REQUIRED Electronically Filed: 10/20/2023 by: PING SOLER [facility]
--- OUTSIDE RECORDS SUMMARY | 2024-09-07 15:23 | XMS_ITS | Encounter Summary ---
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 Address [address] [place] [address] Care Team Providers Care Histology Tech Name Role Phone ROWENA ROY Primary Care [...] Segal's Name Patient's Relationship to Policy Segal [facility] (WNR) MEDICARE ADVANTAGE [place] INDIV IDUAL - [place] Sep 21, 2023 [id number] [phone] GENET DUGAN S PATIENT AETNA [facility] (WNR) MEDICARE ADVANTAGE [facility] ([facility]) Sep 21, 2023 [id number] [phone] MARVIN DUGANI S PATIENT HUSKY MEDICAID HUSKY PLAN May 22, 2022 MEDICAI D [id number] GENET DUGAN S PATIENT MEDICARE ([facility]) MEDICARE () PART B May 22, 2022 PART B [id number] MARVIN DUGANI S PATIENT MEDICARE (WNR) MEDICARE () PART A Feb 19, 2009 PART A [id number] GENET DUGAN S PATIENT MEDICARE PART D ([facility]) MEDICARE () PART D Jul 22, 2022 PART D [id number] [id number] [phone] GENET DUGAN S PATIENT [facility] (WNR) MEDICARE ADVANTAGE [facility] (WNR) Sep 21, 2022 [id number] GENET DUGAN S PATIENT [facility] MCR (WNR) MEDICARE ADVANTAGE [facility] (WNR) Sep 21, 2022 [id number] [phone] GENET DUGAN PATIENT Selected Encounter This section includes the information on record at [place] for the Encounter. Date/Time Encounter Type Encounter Description Reason Provider Source Oct 06, 2023 12:37 PM Outpatient Encounter PRIMARY CARE/MEDICINE HORTENCIA VERDUZCO Encounter Template Text not used by [place] Plan of Treatment: Future Appointments (+ 6 months) and Future Tests (+/- 45 days) The Plan of Treatment section includes future care activities for the patient [facility] all [place] [facility]. This section includes future appointments and future [...] 22, 2023 10:00 AM AMBULATORY - MEDICINE [place] [facility] Dec 31, 2023 09:00 AM AMBULATORY - MEDICINE [place] [facility] Dec 31, 2023 10:30 AM AMBULATORY - MEDICINE [place] [facility] January 22, 2024 02:30 PM AMBULATORY - MEDICINE [place] [facility] Feb 26, 2024 01:00 PM AMBULATORY - MEDICINE [place] Feb 26, 2024 01:15 PM AMBULATORY - MEDICINE [place] Mar 10, 2024 09:00 AM AMBULATORY - NONE [place] [facility] [place] [facility] Mar 18, 2024 09:30 AM AMBULATORY - MEDICINE [place] [facility] Mar 21, 2024 09:30 AM AMBULATORY - MEDICINE [place] [facility] Lab Results: +/- 30 days of the [...] Range Comment Oct 06, 2023 12:48 PM [facility] PSA Specimen Type: SERUM No comment entered. Ordering Provider: HAYLEY VERDUZCO Report Released Date/Time: Oct 06, 2023 12:38 PM Reporting Lab: [facility] [address] [address] Performing Lab: [facility] [address] [facility] [address] PSA 21.53 ng/mL H 0.00-4.00 Sep 18, 2023 12:07 PM [facility] FOLATE Specimen Type: SERUM No comment entered. Ordering Provider: HAYLEY VERDUZCO Report Released Date/Time: Sep 18, 2023 11:50 AM Reporting Lab: [facility] [address] [facility] [address] Performing Lab: [facility] [address] [facility] [address] FOLATE 3.83 ng/mL L >5.2 Social History: Smoking Status (Most current) and Tobacco Use (All prior to encounter date) This section includes the most current, and the historical, smoking and tobacco- related health factors from the [place] facility where the Encounter took place. Current Smoking Status This section includes the most current smoking, or tobacco-related health factor, from the [place] facility where the Encounter took place. Date/Time Current Smoking Status Comment Ray ity Jun 23, 2023 09:00 AM VA-TOBACCO FORMER USER [facility] Tobacco Use History This section includes a history of the smoking, or tobacco-related health factors, that were collected on or before the date of the Encounter. The data comes from the [place] facility where the Encounter took place. Date/Time Smoking Status/Tobacco Use Comment F acility Jun 23, 2023 09:00 AM VA-TOBACCO QUIT 15 YRS OR MORE [facility] May 01, 2022 01:30 PM VA-TOBACCO FORMER USER [facility] May 01, 2022 01:30 PM VA-TOBACCO QUIT 15 YRS OR MORE [facility] Apr 15, 2021 03:00 PM VA-TOBACCO FORMER USER [facility] Apr 15, 2021 03:00 PM VA-TOBACCO QUIT 15 YRS OR MORE [facility] Oct 20, 2018 12:53 PM VA-TOBACCO FORMER USER [facility] Oct 20, 2018 12:53 PM VA-TOBACCO QUIT 15 YRS OR MORE [facility] Jul 03, 2017 10:33 AM QUIT TOBACCO USE > 7 YEARS AGO quit 25yrs ago [facility] February 13, 2016 08:46 AM LIFETIME NON-TOBACCO USER [facility] Advance Directives: All historical and current Section Date Range: From patient's date of to the date document was created. This section includes ALL of a patient's completed or amended [place] Advance and Rescinded Directives. The entries below indicate that a directive exists for the patient, but an actual copy is not included with this document. The data comes from all [facility]. Date Advance Directives Provider Source Apr 04, 2024 ADVANCE DIRECTIVE CHAPINCITO DEE [facility] Radiology Reports: +/- 30 days of [...] CT ABDOMEN /PELVIS W/WO CONTRAST: JAKE DUGAN [id number] -[id number] M Exm Date: OCT 14, 2023@14:00 Req Phys: LUBA,NOLAN Pat Loc: [facility]/OUTSIDE IMAGING NON-CNT (R Img Loc: OUTSIDE GENERAL RADIOLOGY Service: Unknown (Case 95 COMPLETE) OUTSIDE CT ABDOMEN/PELVIS W/WO CO(RAD Detailed) CPT:42191 Reason for Study: outside images have been [...] BY: / *ELECTRONICALLY FILED* [place] [facility] [place] [facility] Encounter Notes: All associated encounter notes This [...] MD PHYSICIAN Signed: 10/06/2023 12:41 NOLAN VERDUZCO [facility]
--- OUTSIDE RECORDS SUMMARY | 2024-09-07 15:24 | XMS_ITS | Encounter Summary ---
Author Name Department [place] Address [address] [place] [address] Care Team Providers Care Production Technologist Name Role Phone ROWENA ROY Primary Care [...] Segal's Name Patient's Relationship to Policy Segal [facility]) MEDICARE ADVANTAGE [place] INDIV IDUAL - [place] Sep 21, 2023 [id number] [phone] GENET DUGAN S [facility] MEDICARE ADVANTAGE [facility] ([facility]) Sep 21, 2023 [id number] [phone] DUGAN,GENET S PATIENT HUSKY MEDICAID HUSKY PLAN May 22, 2022 MEDICAI D [id number] MARVIN DUGANI S PATIENT MEDICARE ([facility]) MEDICARE (M) PART B May 22, 2022 PART B [id number] [id number] [phone] DUGAN,GENET S PATIENT MEDICARE ([facility]) MEDICARE (M) PART A Feb 19, 2009 PART A [id number] DUGAN,GENET S PATIENT MEDICARE PART D (WNR) MEDICARE (M) PART D Jul 22, 2022 PART D [id number] [phone] GENET DUGAN PATIENT [facility] (WNR) MEDICARE ADVANTAGE [facility] (WNR) Sep 21, 2022 [id number] [phone] GENET DUGAN PATIENT [facility] (WNR) MEDICARE ADVANTAGE MCR (WNR) Sep 21, 2022 [id number] GENET DUGAN PATIENT Selected Encounter This section includes the information on record at [place] for the Encounter. Date/Time Encounter Type Encounter Description Reason Provider Source Dec 31, 2023 10:30 AM CMPTR OPHTH IMG OPTIC NERVE OPTOMETRY ICD-10-CM H40.013 Open angle with borderline findings, low risk, bilateral MERHAR,CAROL B IHE Encounter Template Text not used by [place] Assessments - Encounter Diagnoses This section includes the primary and secondary diagnoses documented for the Encounter. Date/Time Primary/Secondary Diagnosis Diagnosis Name Provider Source Dec 31, 2023 10:36 AM PRIMARY Open angle with borderline findings, low risk, bilateral MERHAR,CAROL B [place] [facility] [facility] Plan of Treatment: Future Appointments [...] 22, 2024 02:30 PM AMBULATORY - MEDICINE [place] [facility] Feb 26, 2024 01:00 PM [facility] Feb 26, 2024 01:15 PM [facility] Mar 10, 2024 09:00 AM AMBULATORY - NONE [place] [facility] [place] [facility] Mar 18, 2024 09:30 AM AMBULATORY - MEDICINE [place] [facility] Mar 21, 2024 09:30 AM AMBULATORY - MEDICINE [place] [facility] Apr 07, 2024 08:30 AM AMBULATORY - MEDICINE [place] [facility] Apr 15, 2024 02:30 PM AMBULATORY - MEDICINE [place] [facility] Apr 27, 2024 10:00 AM AMBULATORY - MEDICINE [place] [facility] May 13, 2024 11:00 AM AMBULATORY - MEDICINE [place] [facility] May 31, 2024 10:00 AM AMBULATORY - MEDICINE [place] [facility] Jun 03, 2024 12:45 PM AMBULATORY - MEDICINE [place] [facility] Jun 21, 2024 09:00 AM AMBULATORY - MEDICINE [place] C [place] [facility] Advance Directives: All historical and [...] Signed: 12/31/2023 11:57 /mariana/ CAROL HOLLOWAY OD Furnace Roaster Cosigned: 01/01/2024 15:13 01/01/2024 ADDENDUM STATUS: COMPLETED The optometry financial analyst intern participated in this exam, I saw this [place] in conjunction with the optometry student. The visual images were captured by the optometry health emissions testing technician. Results of testing assessed by the student and reviewed by myself. I agree with the stated findings, assessment and plan. I have added/edited the documentation to reflect my exam findings and changes to the assessment and plan. /viky HOLLOWAY OD Furnace Roaster Signed: 01/01/2024 15:14 [facility]
--- OUTSIDE RECORDS SUMMARY | 2024-09-07 15:24 | XMS_ITS | Encounter Summary ---
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 Organization [place] Address [address] [place] [address] Care Team Providers Care Ship Superintendent Name Role Phone ROWENA ROY Primary [facility] Provider [facility] Insurance Providers: All historical and current [...] Segal's Name Patient's Relationship to Policy Segal [facility] ([facility]) MEDICARE ADVANTAGE [place] INDIV IDUAL - [place] Sep 21, 2023 [id number] [phone] GENET DUGAN S [facility] MEDICARE [facility] ([facility]) Sep 21, 2023 [id number] [phone] GENET DUGAN S PATIENT HUSKY MEDICAID HUSKY PLAN May 22, 2022 MEDICAI D [id number] GENET DUGAN S PATIENT MEDICARE ([facility]) MEDICARE () PART B May 22, 2022 PART B [id number] GENET DUGAN S PATIENT MEDICARE (WNR) MEDICARE () PART A Feb 19, 2009 PART A [id number] GENET DUGAN S PATIENT MEDICARE PART D (WNR) MEDICARE (M) PART D Jul 22, 2022 PART D [id number] [phone] GENET DUGAN S PATIENT [facility] (WNR) MEDICARE ADVANTAGE [facility] (WNR) Sep 21, 2022 [id number] GENET DUGAN S PATIENT [facility] (WNR) MEDICARE ADVANTAGE [facility] (WNR) Sep 21, 2022 [id number] GENET DUGAN PATIENT Selected Encounter This section includes the information on record at [place] for the Encounter. Date/Time Encounter Type Encounter Description Reason Provider Source January 22, 2024 02:30 PM OFFICE O/P EST MOD 30 MIN PRIMARY CARE/MEDICINE ICD-10-CM W06.XXXA Fall from bed, initial encounter HAYLEY VERDUZCO [place] Encounter Template Text not used by [place] Assessments - Encounter Diagnoses This section includes the primary and secondary diagnoses documented for the Encounter. Date/Time Primary/Secondary Diagnosis Diagnosis Name Provider Source January 22, 2024 04:47 PM PRIMARY Fall from bed, initial encounter MONICA VERDUZCO [place] Plan of Treatment: Future Appointments (+ 6 months) and Future Tests (+/- 45 days) The Plan of Treatment section includes future care activities for the patient from all [place] [facility]. This section includes future appointments and future orders which are active, pending or scheduled. Future Appointments This section includes appointments that were scheduled to occur 6 months from the date of the Encounter, up to a maximum of 20 appointments. The data comes from all [place] treatment facilities. Appointment Date/Time Appointment Type Appointme nt Facility Name Feb 26, 2024 01:00 PM AMBULATORY - MEDICINE [place] [place] Feb 26, 2024 01:15 PM AMBULATORY - MEDICINE [place] Mar 10, 2024 09:00 AM AMBULATORY - NONE [place] [facility] [place] [facility] Mar 18, 2024 09:30 AM AMBULATORY - MEDICINE [place] [facility] Mar 21, 2024 09:30 AM AMBULATORY - MEDICINE [place] [facility] Apr 07, 2024 08:30 AM AMBULATORY - MEDICINE [place] [facility] Apr 15, 2024 02:30 PM AMBULATORY - MEDICINE [place] [facility] Apr 27, 2024 10:00 AM AMBULATORY - MEDICINE [facility] [place] [facility] May 13, 2024 11:00 AM AMBULATORY - MEDICINE [place] [facility] May 31, 2024 10:00 AM AMBULATORY - MEDICINE [place] [facility] Jun 03, 2024 12:45 PM AMBULATORY - MEDICINE [place] [facility] Jun 21, 2024 09:00 AM AMBULATORY - MEDICINE [facility]L [facility] Social History: Smoking Status (Most current) and Tobacco Use (All prior to encounter date) This section includes the most current, and the historical, smoking and tobacco- related health factors from the [place] facility where the Encounter took place. Current Smoking Status This section includes the most current smoking, or tobacco-related health factor, from the [place] facility where the Encounter took place. Date/Time Current Smoking Status Comment Facil ity Jun 23, 2023 09:00 AM VA-TOBACCO QUIT 15 YRS OR MORE [place] Tobacco Use History This section includes a history of the smoking, or tobacco-related health factors, that were collected on or before the date of the Encounter. The data comes from the [place] facility where the Encounter took place. Date/Time Smoking Status/Tobacco Use Comment F acility Jun 23, 2023 09:00 AM VA-TOBACCO QUIT 15 YRS OR MORE [place] May 01, 2022 01:30 PM VA-TOBACCO FORMER USER [place] May 01, 2022 01:30 PM VA-TOBACCO QUIT 15 YRS OR MORE [place] Apr 15, 2021 03:00 PM VA-TOBACCO FORMER USER [place] Apr 15, 2021 03:00 PM VA-TOBACCO QUIT 15 YRS OR MORE [place] Oct 20, 2018 12:53 PM VA-TOBACCO FORMER USER [place] Oct 20, 2018 12:53 PM VA-TOBACCO QUIT 15 YRS OR MORE [place] Jul 03, 2017 10:33 AM QUIT TOBACCO USE > 7 YEARS AGO quit 25yrs ago [place] February 13, 2016 08:46 AM LIFETIME NON-TOBACCO USER [place] Advance Directives: All historical and current Section Date Range: From patient's date of to the date document was created. This section includes ALL of a patient's completed or amended [place] Advance and Rescinded Directives. The entries below indicate that a directive exists for the patient, but an actual copy is not included with this document. The data comes from all [place] facilities. Date Advance Directives Provider Source Apr 04, 2024 ADVANCE DIRECTIVE LEILACHAPINCITO Doug [facility] Encounter Notes: All associated [...] Not worried about housing near future The reports the following: Within the past 12 months, you worried whether your food would run out before you got money to buy more. Never true Within the past 12 months, the food you bought just didn't last and you didn't have money to get more. Never MED REC COMPLETED BY PROVIDER DURING VISIT. /mariana/ EM FREDERICK LPN LPN Signed: 01/22/2024 15:46 EM FREDERICK [place] January 22, 2024 08:32 AM PHYSICIAN NOTE: [...] quite long discussion with Em acting as breakfast host to make certain that we had spoken [...] MD PHYSICIAN Signed: 01/22/2024 16:47 NOLAN VERDUZCO [place]
--- OUTSIDE RECORDS SUMMARY | 2024-09-07 15:24 | XMS_ITS | Encounter Summary ---
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 Address [address] [place] [address] Care Team Providers Care Terra Cotta Mold Maker Name Role Phone ROWENA ROY Primary Care Provider [facility] Insurance Providers: All historical and current [...] Segal's Name Patient's Relationship to Policy Segal [facility] ([facility]) MEDICARE ADVANTAGE [place] INDIV IDUAL - [place] Sep 21, 2023 [id number] [phone] GENET DUGAN S PATIENT [facility] (R) MEDICARE [facility] ([facility]) Sep 21, 2023 [id number] [phone] GENET DUGAN S PATIENT HUSKY MEDICAID HUSKY PLAN May 22, 2022 MEDICAI D [id number] GENET DUGAN S PATIENT MEDICARE ([facility]) MEDICARE () PART B May 22, 2022 PART B [id number] [phone] GENET DUGAN S PATIENT MEDICARE (WNR) MEDICARE () PART A Feb 19, 2009 PART A [id number] [phone] GENET DUGAN S PATIENT MEDICARE PART D (WNR) MEDICARE (M) PART D Jul 22, 2022 PART D [id number] DUGAN,GENET S PATIENT [facility] (WNR) MEDICARE ADVANTAGE [facility] (WNR) Sep 21, 2022 [id number] [phone] DUGAN,GENET S PATIENT [facility] (WNR) MEDICARE ADVANTAGE [facility] (WNR) Sep 21, 2022 [id number] GENET DUGAN S PATIENT Selected Encounter This section includes the information on record at [place] for the Encounter. Date/Time Encounter Type Encounter Description Reason Provider Source Dec 22, 2023 10:00 AM OFFICE O/P EST MOD 30 MIN PRIMARY CARE/MEDICINE ICD-10-CM R97.20 Elevated prostate specific antigen [PSA] HAYLEY VERDUZCO [place] Encounter Template Text not used by [place] Assessments - Encounter Diagnoses This section includes the primary and secondary diagnoses documented for the Encounter. Date/Time Primary/Secondary Diagnosis Diagnosis Name Provider Source Dec 22, 2023 10:47 AM PRIMARY Elevated prostate specific antigen [PSA] MONICA VERDUZCO [place] Plan of Treatment: Future Appointments (+ 6 months) and Future Tests (+/- 45 days) The Plan of Treatment section includes future care activities for the patient from all [place] treatmentf[facility] hospital[facility]. This section includes future appointments and [...] - MEDICINE [facility] [place] [facility] Dec 31, 2023 10:30 AM AMBULATORY - [facility]IC[facility] [place] [facility] January 22, 2024 02:30 PM AMBULATORY - MEDICINE [facility] [facility] Feb 26, 2024 01:00 PM [facility]ORY - [place]IC[place] Feb 26, 2024 01:15 PM AMBULATORY - [place]ICINE [place] Mar 10, 2024 09:00 AM AMBULATORY - NONE [facility] [place] [facility] Mar 18, 2024 09:30 AM AM[place]ULATORY [place] [facility] [facility] Mar 21, 2024 09:30 AM AM[place]ULATORY [place] [facility] [place] [facility] Apr 07, 2024 08:30 AM AM[place]UL[place]ORY [place]INE [place] [facility] [place] [facility] Apr 15, 2024 02:30 PM AM[place]ULATORY - [place]INE [place] [facility] [place] [place] [facility] Apr 27, 2024 10:00 AM AMBULATORY - MEDICINE [facility] [place] [place] [facility] May 13, 2024 11:00 AM AMBULATORY - MEDICINE [facility] [place] [facility] May 31, 2024 10:00 AM AMBULATORY - MEDICINE [facility] [place] [facility] Jun 03, 2024 12:45 PM AMBULATORY - [place]ICINE [place] [facility] [place] [facility] Jun 21, 2024 09:00 AM AMBULATORY - MEDICINE [facility] Lab Results: +/- 30 days of [...] Range Comment Nov 30, 2023 10:39 AM [facility] PSA Specimen Type: SERUM No comment entered. Ordering Provider: HAYLEY VERDUZCO Report Released Date/Time: Nov 30, 2023 10:01 AM Reporting Lab: [facility] [address] [facility] [address] Performing Lab: [facility]ITALRENCOM[facility]AMATRN [facility]ITALUSETS [address] [address] PSA 35.69 ng/mL H 0.00-4.00 Social History: Smoking Status (Most current) and Tobacco Use (All prior to encounter date) This section includes the most current, and the historical, smoking and tobacco- related health factors from the [place] facility where the Encounter took place. Current Smoking Status This section includes the most current smoking, or tobacco-related health factor, from the [place] facility where the Encounter took place. Date/Time Current Smoking Status Comment [facility] Jun 23, 2023 09:00 AM VA-TOBACCO FORMER USER [place] Tobacco Use History This section includes a history of the smoking, or tobacco-related health factors, that were collected on or before the date of the Encounter. The data comes from the [place] facility where the Encounter took place. Date/Time Smoking Status/Tobacco Use Comment F acility Jun 23, 2023 09:00 AM VA-TOBACCO QUIT 15 YRS OR MORE [place] May 01, 2022 01:30 PM VA-TOBACCO FORMER USER [place] May 01, 2022 01:30 PM VA-TOBACCO QUIT 15 YRS OR MORE [place] Apr 15, 2021 03:00 PM VA-TOBACCO FORMER USER [place] Apr 15, 2021 03:00 PM VA-TOBACCO QUIT 15 YRS OR MORE [place] Oct 20, 2018 12:53 PM VA-TOBACCO FORMER USER [place] Oct 20, 2018 12:53 PM VA-TOBACCO QUIT 15 YRS OR MORE [place] Jul 03, 2017 10:33 AM QUIT TOBACCO USE > 7 YEARS AGO quit 25yrs ago [place] February 13, 2016 08:46 AM LIFETIME NON-TOBACCO USER [place] Advance Directives: All historical and current Section Date Range: From patient's date of to the date document was created. This section includes ALL of a patient's completed or amended [place] Advance and Rescinded Directives. The entries below indicate that a directive exists for the patient, but an actual copy is not included with this document. The data comes from all [facility]. Date Advance Directives Provider Source Apr [...] DATE: DEC 22, 2023@10:14:01 AUTHOR: ISABEL FREDERICK EXP COSIGNER: URGENCY: STATUS: COMPLETED Home Telehealth (CCHT) [...] full rights to use it throughout the VA system. PRIMARY SCREEN RESULT: The Primary Screen [...] LPN LPN Signed: 12/22/2023 10:16 ISABEL FREDERICK CEASAR Dec 22, 2023 07:48 AM PHYSICIAN NOTE: LOCAL TITLE: MD NOTE [...] 5. Paraesthesia of lower extremity (SNOMED CT [id number]) previously on gabapentin recently with objective signs of dminished circulation to LEFT foot only initial screen for metabolic/nutritional causes of neuropathy unrevealing No show to neurology NCS, Summer 2020 No show to Vascular consult, Summer 2020 6. status post appendectomy 7. Diverticular disease normal colonoscopy August, 8. Osteoarthritis (SNOMED CT [id number]) C/S worst at C6-C7 09/06 mod OA Interphalamgeal joint right thumb 09/06 9. Generalized anxiety disorder 10. Epilepsy [facility] [address] [facility], [place] Link OV 12-05-15 11. Essential hypertension [place] [id number], CELINA Link OV 12-05-15 12. Atypical chest pain [place] [id number], [place] Link OV 12-05-15 02/13/16 EKG NSR 12/30/17 EKG NSR PHYSICAL EXAMINATION/DIRECTED EXAM: BP:115/62 (12/22/2023 10:12) Resp:20 (12/22/2023 10:12) Temp:96.2 F [35.7 C] (12/22/2023 10:12) Pulse:73 (12/22/2023 10:12) WEIGHT 12/22/2023 10:12 176(79.83)[25] 09/18/2023 11:38 185(83.91)[27] 07/06/2023 15:00 193(87.54)[29*] ASSESSMENT & PLAN: 78 year old MALE SERVICE CONNECTED % - [address] results/PSA. Continuous to nichole in his faiht with [facility]. He [...] found. /mariana/ NOLAN VERDUZCO MD PHYSICIAN Signed: 12/22/2023 10:49 ONLAN VERDUZCO [place]
--- OUTSIDE RECORDS SUMMARY | 2024-09-07 15:24 | XMS_ITS ---
Author Name Department [place] Organization [place] Address [address] [place] [address] Care Team Providers Care Microsoft Dynamics Developer Name Role Phone ROWENA ROY Primary Care [...] [facility] ([facility]) MEDICARE ADVANTAGE [place] INDIV IDUAL - [place] Sep 21, 2023 [id number] [phone] GENET DUGAN S PATIENT [facility] ([facility]) MEDICARE ADVANTAGE [facility] ([facility]) Sep 21, 2023 [id number] [phone] MARVIN DUGANI S PATIENT HUSKY MEDICAID HUSKY PLAN May 22, 2022 MEDICAI D [id number] MARVIN DUGANI S PATIENT MEDICARE ([facility]) MEDICARE (M) PART B May 22, 2022 PART B [id number] DUGAN,GENET S PATIENT MEDICARE ([facility]) MEDICARE (M) PART A Feb 19, 2009 PART A [id number] [id number] [phone] DUGAN,GENET S PATIENT MEDICARE PART D (WNR) MEDICARE (M) PART D Jul 22, 2022 PART D [id number] [id number] [phone] GENET DUGAN PATIENT [facility] (WNR) MEDICARE ADVANTAGE [facility] (WNR) Sep 21, 2022 [id number] GENET DUGAN PATIENT [facility] (WNR) MEDICARE ADVANTAGE [facility] (WNR) Sep 21, 2022 [id number] [phone] GENET DUGAN PATIENT Selected Encounter This section includes the information on record at [place] for the Encounter. Date/Time Encounter Type Encounter Description Reason Pro vider Source Dec 04, 2023 08:28 AM Outpatient Encounter ADMIN PAT ACTIVTIES (MASNONCT) IHE Encounter Template Text not used by [place] Plan of Treatment: Future Appointments (+ 6 months) and Future Tests (+/- 45 days) The Plan of Treatment section includes future care activities for the patient from all [place] treatmentfacilities. This section includes future appointments and future orders which are active, pending or scheduled. Future Appointments This section includes appointments that were scheduled to occur 6 months from the date of the Encounter, up to a maximum of 20 appointments. The data comes from all [place] treatment facilities. Appointment Date/Time Appointment Type Appointme nt Facility Name Dec 22, 2023 10:00 AM AMBULATORY - MEDICINE [facility] [place] [facility] Dec 31, 2023 09:00 AM AMBULATORY - MEDICINE [facility] [place] [facility] Dec 31, 2023 10:30 AM AMBULATORY - MEDICINE [facility] [place] [facility] January 22, 2024 02:30 PM AMBULATORY - MEDICINE [facility] [place] [facility] Feb 26, 2024 01:00 PM AM[place]ULATORY - [place]IC[place] Feb 26, 2024 01:15 PM AMBULATORY - [place]IC[place] Mar 10, 2024 09:00 AM AMBULATORY - NONE [facility] [place] [facility] Mar 18, 2024 09:30 AM AMBULATORY - MEDICINE [facility] [place] [facility] Mar 21, 2024 09:30 AM AMBULATORY - MEDICINE [facility] [place] [facility] Apr 07, 2024 08:30 AM AMBULATORY - MEDICINE [facility] [place] [facility] Apr 15, 2024 02:30 PM AMBULATORY - MEDICINE [place] [facility] [place] [facility] Apr 27, 2024 10:00 AM AMBULATORY - MEDICINE [place] [facility] [place] [facility] May 13, 2024 11:00 AM AMBULATORY MEDICINE [place] [facility] May 31, 2024 10:00 AM AMBULATORY MEDICINE [place] [facility] Jun 03, 2024 12:45 PM AMBULATORY MEDICINE [place] [facility] Lab Results: +/- 30 days of the encounter This section includes the Chemistry and Hematology Lab Results on record with [place] for the patient. Radiology Reports and Pathology Reports are provided separately, in subsequent sections. Lab Results This section contains the Chemistry/Hematology Results that were resulted 30 days before or 30 daysafter the date of the Encounter. Date/Time Source Result Type Result - Unit Interpretation Reference Range Comment Nov 30, 2023 10:39 AM [facility] PSA Specimen Type: SERUM No comment entered. Ordering Provider: HAYLEY VERDUZCO Report Released Date/Time: Nov 30, 2023 10:01 AM Reporting Lab: [facility] [address] [facility] [address] Performing Lab: [facility]ITALUSE[address] [address] PSA 35.69 ng/mL H 0.00-4.00 Advance Directives: All historical and current Section Date Range: From patient's date of to the date document was created. This section includes ALL of a patient's completed or amended [place] Advance and Rescinded Directives. The entries below indicate that a directive exists for the patient, but an actual copy is not included with this document. The data comes from all [place] facilities. Date Advance Directives Provider Source Apr 04, 2024 ADVANCE [facility] Encounter Notes: All associated encounter notes This section contains the clinical notes associated to the Encounter. Date/Time Encounter Note(s) Provider Source Dec 04, 2023 08:28 AM ADMINISTRATIVE NOT E: LOCAL TITLE: CCC: SCHEDULING ADMINISTRATION STANDARD TITLE: ADMINISTRATIVE NOTE DATE OF NOTE: DEC 04, 2023@08:28:11 ENTRY DATE: DEC 04, 2023@08:28:11 AUTHOR: DANIELE MALDONADO EXP COSIGNER: URGENCY: STATUS: [facility]: SCHEDULING ADMINISTRATION Has ADDENDA Patient Demographics Patient Name: JAKE DUGAN Patient Primary Phone: [phone] Patient Primary Address: [address] [place] [id number] Patient : 1945 Patient Age: 78 Caller/Recipient Relation to Patient: Self Administrative Administrative Note Reason: Medication Renewal VA Medications Refill/Renewal Request: [place] is calling to speak with pact team to get a renewal for Lisinopril (T/W did not see on veterans med list) as is completely out of this medication. [place] is stating that his BP is too high but refused to answer any follow up questions, declined speaking with [facility] wallpaper scraper and is insisting he get his medication signed off for moss picker within an hour or he will be showing up to the clinic. T/W did let know that his team has 72 hours to respond to all messages, disconnected call /viky MALDONADO VISN 1 [facility] AMSA Signed: 12/04/2023 08:28 Receipt Acknowledged By: 12/04/2023 12:01 /mariana/ TAMMIE DIAZ LPN LPN for ISABEL YOLY 12/04/2023 13:13 /mariana/ WAGNER MOORE,RN-BC REGISTERED NURSE (RN) 12/04/2023 ADDENDUM STATUS: COMPLETED Vet comes into the clinic requesting medication refill for medication noted below. Also requesting lab results. 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 [place] has been notified. /mariana/ WAGNER MOORE,RN-BC REGISTERED NURSE (RN) Signed: 12/04/2023 13:19 12/04/2023 ADDENDUM STATUS: COMPLETED SURENDRA form signed by Vet and sent to scan. /viky MCINTYRE Signed: 12/04/2023 14:52 POTTER,DANIELE Claudia [facility]
--- OUTSIDE RECORDS SUMMARY | 2024-09-07 15:24 | XMS_ITS ---
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 Organization [facility] [place] Address [address] [place] [address] Care Team Providers Care Precision Filer Hand Name Role Phone ROWENA ROY Primary Care [...] to Policy Segal [facility] (R) MEDICARE ADVANTAGE [place] IN[place]UAL - [place] Sep 21, 2023 [id number] [phone] GENET DUGAN S PATIENT [facility] (WNR) MEDICARE ADVANTAGE [facility] ([facility]) Sep 21, 2023 [id number] [phone] MARVIN DUGANI S PATIENT [place] MEDICAID HUSKY PLAN May 22, 2022 MEDICAI D [id number] GENET DUGAN S PATIENT MEDICARE ([facility]) MEDICARE (M) PART B May 22, 2022 PART B [id number] [id number] [phone] MARVIN DUGANI S PATIENT MEDICARE ([facility]) MEDICARE (M) PART A Feb 19, 2009 PART A [id number] DUGAN,GENET S PATIENT MEDICARE PART D (WNR) MEDICARE (M) PART D Jul 22, 2022 PART D [id number] [id number] GENET DUGAN S PATIENT [facility] (WNR) MEDICARE ADVANTAGE [facility] (WNR) Sep 21, 2022 [id number] [phone] GENET DUGAN S PATIENT [facility] MCR (WNR) MEDICARE ADVANTAGE [facility] (WNR) Sep 21, 2022 [id number] GENET DUGAN PATIENT Selected Encounter This [...] 2024 01:00 PM [facility] Feb 26, 2024 01:15 PM [facility] Mar 10, 2024 09:00 AM AMBULATORY - NONE [place] [facility] [place] [facility] Mar 18, 2024 09:30 AM AMBULATORY - MEDICINE [place] [facility] [place] [facility] Mar 21, 2024 09:30 AM AMBULATORY - MEDICINE [place] [facility] [place] [facility] Apr 07, 2024 08:30 AM AMBULATORY - MEDICINE [place] [facility] [place] [facility] Apr 15, 2024 02:30 PM AMBULATORY - MEDICINE [place] [facility] [place] [facility] Apr 27, 2024 10:00 AM AMBULATORY - MEDICINE [facility] [place] [facility] May 13, 2024 11:00 AM AMBULATORY - MEDICINE [facility] [place] [facility] May 31, 2024 10:00 AM AMBULATORY - MEDICINE [place] [facility] [place] [facility] Jun 03, 2024 12:45 PM AMBULATORY - MEDICINE [facility] Jun 21, 2024 09:00 AM AMBULATORY - MEDICINE [facility] Advance Directives: All historical and current [...] 2024 [facility]ANCE [facility] Encounter Notes: All associated encounter [...] [ X ] At this encounter the [place]'s demographics were verified. [ X ] At this encounter the [place]'s Insurance information was verified. [ X ] At this encounter the below scheduled visits for the were discussed and appointment reminder card was offered. Future appointments: 03/18/2024 09:30 CWM/SO/PACT 9 NURSING 03/21/2024 09:30 CWM/SO/PACT 9 01/02/2025 10:00 CWM/NO/OPTOMETRY/MERHAR filled out SURENDRA [facility] FORM [id number],sent up to [place] JOSE ROBERTO /mariana/ JHOAN DUGGAN ADVANCED PROGRAM EVALUATION CONSULTANT Signed: 01/25/2024 15:50 JHOAN DUGGAN [place]
--- OUTSIDE RECORDS SUMMARY | 2024-09-07 15:24 | XMS_ITS ---
Author Name [facility] [place] [facility] [place] Address [address] [place] [address] Care Team Providers Care School Traffic Guard Name Role Phone ROWENA ROY Primary Care [...] Segal's Name Patient's Relationship to Policy Segal [facility] [place] ([facility]) MEDICARE [facility] INDIV IDUAL - [place] Sep 21, 2023 [id number] [phone] GENET DUGAN S [facility]) MEDICARE ADVANTAGE [facility] ([facility]) Sep 21, 2023 [id number] [phone] MARVIN DUGANI S PATIENT HUSKY MEDICAID HUSKY PLAN May 22, 2022 MEDICAI D [id number] GENET DUGAN S PATIENT MEDICARE ([facility]) MEDICARE () PART B May 22, 2022 PART B [id number] MARVIN DUGANI S PATIENT MEDICARE ([facility]) MEDICARE (M) PART A Feb 19, 2009 PART A [id number] DUGAN,GENET S PATIENT MEDICARE PART D (WNR) MEDICARE (M) PART D Jul 22, 2022 PART D [id number] GENET DUGAN PATIENT [facility] (WNR) MEDICARE ADVANTAGE [facility] (WNR) Sep 21, 2022 [id number] GENET DUGAN PATIENT [facility] (WNR) MEDICARE ADVANTAGE M[facility] (WNR) Sep 21, 2022 [id number] GENET DUGAN PATIENT Selected Encounter This section includes the information on record at NH for the Encounter. Date/Time Encounter Type Encounter [...] borderline findings, low risk, bilateral MERHAR,CAROL B [place] [facility] [place] [facility] Dec 31, 2023 10:37 AM SECONDARY Combined forms of age-related cataract, bilateral MERHAR,CAROL B [facility] [place] [facility] Dec 31, 2023 10:37 AM SECONDARY Dry eye syndrome of bilateral lacrimal glands MERHAR,CAROL B [facility] [place] [facility] Dec 31, 2023 10:37 AM SECONDARY Hypermetropia, bilateral MERHAR,CAROL B [facility] [place] [facility] Plan of Treatment: Future Appointments (+ 6 months) and Future Tests (+/- 45 days) The Plan of Treatment section includes future care activities for the patient from all [place] treatmentfacilities. This section includes future appointments and future orders which are active, pending or scheduled. Future Appointments This section includes appointments that were scheduled to occur 6 months from the date of the Encounter, up to a maximum of 20 appointments. The data comes from all NH treatment facilities. Appointment Date/Time Appointment Type Appointme nt Facility Name January 22, 2024 02:30 PM AMBULATORY - MEDICINE [place] [facility] [place] [facility] Feb 26, 2024 01:00 PM [facility]ULATORY - [facility]ICINE [facility] [place] Feb 26, 2024 01:15 PM AMBULATORY - MEDICINE [facility] [place] Mar 10, 2024 09:00 AM AMBULATORY - NONE [facility] [place] [facility] Mar 18, 2024 09:30 AM AMBULATORY - MEDICINE [facility] [place] [facility] Mar 21, 2024 09:30 AM AMBULATORY - MEDICINE [facility] [place] [facility] Apr 07, 2024 08:30 AM AMBULATORY - MEDICINE [facility] [place] [facility] Apr 15, 2024 02:30 PM AMBULATORY - MEDICINE [facility] [place] [facility] Apr 27, 2024 10:00 AM AMBULATORY - MEDICINE [facility] [place] [facility] May 13, 2024 11:00 AM AMBULATORY - MEDICINE [facility] [place] [facility] May 31, 2024 10:00 AM AMBULATORY - MEDICINE [facility] [place] [facility] Jun 03, 2024 12:45 PM AMBULATORY - MEDICINE [facility] [place] [facility] Jun 21, 2024 09:00 AM AMBULATORY - MEDICINE [facility] [place] [facility] Advance Directives: All historical and current Section Date Range: From patient's date of to the date document was created. This section includes ALL of a patient's completed or amended VA Advance and Rescinded Directives. The entries below indicate that a directive exists for the patient, but an actual copy is not included with this document. The data comes from all NH facilities. Date Advance Directives Provider Source Apr 04, 2024 ADVANCE DIRECTIVE [facility] Encounter Notes: All associated encounter notes [...] 5. Paraesthesia of lower extremity (SNOMED CT [id number]) 6. status post appendectomy 7. Diverticular disease 8. Osteoarthritis (SNOMED CT 554282556) 9. Generalized anxiety disorder 10. Epilepsy 11. [...] and education. [facility] 4. Hyperopia with regular astigmatism with [...] Signed: 12/31/2023 11:57 /mariana/ CAROL HOLLOWAY OD Pecan Cleaner Cosigned: 01/01/2024 15:13 01/01/2024 ADDENDUM STATUS: COMPLETED The optometry international organizer participated in this exam, I saw this [place] in conjunction with the optometry student. The [...] Remote Allergy/ADR Data available for this patient [place] [facility] [place] [facility] HCTZ HYDROCHLOROTHIAZIDE Med [facility] (Tool #1) INCLUDED IN THIS LIST: Alphabetical [...] the patient into personal health records (i.e. [employer]) are NOT included in this list. Non-VA [...] ONCE DAILY FOR DRY IRRITATED SKIN Rx# [id number] Last Released: 01/28/23 Qty/Days Supply: 240/90 Rx Expiration Date: 01/29/24 Refills Remainin Indication: FOR DRY SKIN OUTPT ASPIRIN 81MG EC TAB (Status = Active) TAKE ONE TABLET BY MOUTH ONCE DAILY TO PREVENT STROKE/HEART ATTACK Rx# [id number] Last Released: 01/28/23 Qty/Days Supply: 120/90 Rx Expiration Date: 01/29/24 Refills Remainin Indication: FOR BLOOD CLOT PREVENTION FOLLOWING PCI OUTPT CAPSAICIN 0.025% CREAM (Status = Active) APPLY A MODERATE AMOUNT TOPICALLY FOUR TIMES A DAY FOR LOCALIZED PAIN (USE FOR AT LEAST 4 WEEKS FOR EFFECT) Rx# [id number] Last Released: 12/22/23 Qty/Days Supply: 6030 Rx Expiration Date: 12/22/24 Refills Remainin Indication: FOR LOCALIZED PAIN OUTPT CARBOXYMETHYLCELLULOSE NA 0.5% OPH SOLN (Status = Discontinued) INSTILL 1 DROP INTO EACH EYE FOUR TIMES DAILY NEEDED FOR DRY EYE Rx# [id number] Last Released: 12/04/23 Qty/Days Supply: 45/90 Rx Expiration Date: 12/23/23 Refills Remainin Indication: FOR DRY EYE OUTPT CARBOXYMETHYLCELLULOSE NA 1% OPH GEL (Status = Active) APPLY 1 DROP INTO EACH EYE FOUR TIMES DAILY NEEDED FOR DRY EYE Rx# [id number] Last Released: 01/01/24 Qty/Days Supply: 15/30 Rx Expiration Date: 12/31/24 Refills Remainin Indication: FOR DRY EYE Non-VA FLUTICASONE PROP 50MCG 120D NASAL INHL INSTILL 1 SPRAY INTO EACH NOSTRIL TWICE DAILY Medication prescribed by Non-VA provider. [place] [id number], CELINA Link OV 12-05-15 OUTPT FOLIC ACID 1MG TAB (Status = Active) TAKE ONE TABLET BY MOUTH ONCE DAILY FOR INADEQUATE FOLIC ACID VITAMIN/NUTRITION SUPPLEMENT Rx# [id number] Last Released: 06/30/23 Qty/Days Supply: Rx Expiration Date: 06/25/24 Refills Remainin Indication: FOR INADEQUATE FOLIC ACID OUTPT KETOTIFEN 0.025% OPH SOLN (Status = Discontinued) INSTILL 1 DROP INTO EACH EYE TWICE DAILY (IF YOU WEAR CONTACT LENSES, WAIT 10 MINUTES BEFORE INSERTING LENSES) Rx# [id number] Last Released: 09/18/23 Qty/Days Supply: Rx Expiration Date: 11/01/23 Refills Remainin OUTPT KETOTIFEN 0.025% OPH SOLN (Status = Active) INSTILL 1 DROP INTO EACH EYE TWICE DAILY (IF YOU WEAR CONTACT LENSES, WAIT 10 MINUTES BEFORE INSERTING LENSES) Rx# [id number] Last Released: 12/07/23 Qty/Days Supply: Rx Expiration Date: 12/04/24 Refills Remainin OUTPT LIFITEGRAST 5% OPH SOLN 0.2ML (Status = Discontinued) INSTILL 1 DROP INTO EACH EYE TWICE DAILY Rx# [id number] Last Released: 09/18/23 Qty/Days Supply: Rx Expiration Date: 11/01/23 Refills Remainin OUTPT LIFITEGRAST 5% OPH SOLN 0.2ML (Status = Active) INSTILL 1 DROP INTO EACH EYE TWICE DAILY Rx# [id number] Last Released: 01/01/24 Qty/Days Supply: Rx Expiration Date: 12/31/24 Refills Remainin OUTPT LISINOPRIL 20MG TAB (Status = Active) TAKE ONE TABLET BY MOUTH ONCE DAILY TO CONTROL BLOOD PRESSURE Rx# [id number] Last Released: 12/04/23 Qty/Days Supply: Rx Expiration Date: 12/04/24 Refills Remainin Indication: FOR HIGH BLOOD PRESSURE SUPPLIES /mariana/ CAROL HOLLOWAY OD Pecan Cleaner Signed: 01/01/2024 15:15 [facility]
--- OUTSIDE RECORDS SUMMARY | 2024-09-07 15:24 | XMS_ITS | Encounter Summary ---
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 Address [address] [place] [address] Care Team Providers Care Environmental Services Tech Name Role Phone ROWENA ROY Primary [...] Segal's Name Patient's Relationship to Policy Segal [facility] ([facility]) MEDICARE ADVANTAGE [place] INDIV [place]UAL - [place] Sep 21, 2023 [id number] [phone] GENET [facility]UGAN S [facility] (WNR) MEDICARE ADVANTAGE [facility] ([facility]) Sep 21, 2023 [id number] [phone] DUGAN,GENET S PATIENT HUSKY MEDICAID HUSKY PLAN May 22, 2022 MEDICAI D [id number] MARVIN DUGANI S PATIENT MEDICARE (WN) MEDICARE (M) PART B May 22, 2022 PART B [id number] [phone] DUGAN,GENET S PATIENT MEDICARE (WNR) MEDICARE (M) PART A Feb 19, 2009 PART A [id number] [phone] DUGAN,GENET S PATIENT MEDICARE PART D (WNR) MEDICARE (M) PART D Jul 22, 2022 PART D [id number] [phone] GENET DUGAN PATIENT [facility] (WNR) MEDICARE ADVANTAGE [facility] (WNR) Sep 21, 2022 [id number] GENET DUGAN PATIENT [facility] MCR (WNR) MEDICARE ADVANTAGE [facility] (WNR) Sep 21, 2022 [id number] GENET DUGAN PATIENT Selected Encounter This section [...] - MEDICINE [place] [place] [facility] Dec 31, 2023 09:00 AM AMBULATORY - MEDICINE [place] [facility] [facility] Dec 31, 2023 10:30 AM AMBULATORY - MEDICINE [place] [facility] [place] [facility] January 22, 2024 02:30 PM AMBULATORY - MEDICINE [place] [facility] [facility] Feb 26, 2024 01:00 PM AMBULATORY - MEDICINE [place] Feb 26, 2024 01:15 PM AMBULATORY - MEDICINE [place] Mar 10, 2024 09:00 AM AMBULATORY - NONE [facility] [place] [facility] Mar 18, 2024 09:30 AM AMBULATORY - MEDICINE [place] [facility] [facility] Mar 21, 2024 09:30 AM AMBULATORY - MEDICINE [place] [facility] [facility] Apr 07, 2024 08:30 AM AMBULATORY - MEDICINE [place] [facility] [facility] Apr 15, 2024 02:30 PM AMBULATORY - MEDICINE [facility] Lab Results: +/- 30 days [...] Range Comment Oct 06, 2023 12:48 PM [facility] PSA Specimen Type: SERUM No comment entered. Ordering Provider: HAYLEY VERDUZCO Report Released Date/Time: Oct 06, 2023 12:38 PM Reporting Lab: [facility] [address] [facility] [address] Performing Lab: [address] [address] PSA 21.53 ng/mL H 0.00-4.00 Advance Directives: [...] CT ABDOMEN /PELVIS W/WO CONTRAST: JAKE DUGAN [id number] -1945 M Exm Date: OCT 14, 2023@14:00 Req Phys: NOLAN VERDUZCO Loc: NHM/OUTSIDE IMAGING NON-CNT (R Img Loc: OUTSIDE GENERAL RADIOLOGY Service: Unknown (Case [id number] COMPLETE) OUTSIDE CT ABDOMEN/PELVIS W/WO CO(RAD Detailed) CPT:90850 Reason for Study: outside images have been uploaded for continuity of care Clinical History: outside images have been uploaded for continuity of care Report Status: Electronically Filed Date Reported: OCT 14, 2023 Report: THIS EXAM WAS PERFORMED AND INTERPRETED AT AN OUTSIDE HOSPITAL Impression: THIS EXAM WAS PERFORMED AND INTERPRETED AT AN OUTSIDE HOSPITAL Primary Diagnostic Code: VERIFIED BY: / *ELECTRONICALLY FILED* [facility] Encounter Notes: All associated encounter notes [...] REQUIRED Electronically Filed: 11/04/2023 by: ROSEMARY SHEETS [facility]
--- OUTSIDE RECORDS SUMMARY | 2024-09-07 15:24 | XMS_ITS | Encounter Summary ---
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 Address [address] [place] [address] Care Team Providers Care Envelope Folder Name Role Phone ROWENA ROY Primary Care [...] Segal's Name Patient's Relationship to Policy Segal [facility] ([facility]IC[facility]ANT[facility] [place] IN[place] - [place] Sep 21, 2023 [id number] [phone] GENET DUGAN S [facility] ([facility] MEDICARE ADVANTAGE [facility] ([facility]) Sep 21, 2023 [id number] [phone] DUGAN,GENET S PATIENT HUSKY MEDICAID HUSKY PLAN May 22, 2022 MEDICAI D [id number] MARVIN DUGANI S PATIENT MEDICARE (WN) MEDICARE (M) PART B May 22, 2022 PART B [id number] DUGAN,GENET S PATIENT MEDICARE (WNR) MEDICARE (M) PART A Feb 19, 2009 PART A [id number] DUGAN,GENET S PATIENT MEDICARE PART D (WNR) MEDICARE (M) PART D Jul 22, 2022 PART D [id number] [id number] GENET DUGAN PATIENT [facility] (WNR) MEDICARE ADVANTAGE [facility] (WNR) Sep 21, 2022 [id number] GENET DUGAN PATIENT [facility] MCR (WNR) MEDICARE [facility] (WNR) Sep 21, 2022 [id number] GENET DUGAN PATIENT Selected Encounter This section includes the information on record at [place] for the Encounter. Date/Time Encounter Type Encounter Description Reason Pro vider Source Oct 06, 2023 12:00 AM Outpatient Encounter COMMUNITY CARE CONSULT IHE Encounter Template Text not used by [place] Plan of Treatment: Future Appointments (+ 6 months) and Future Tests (+/- 45 days) The Plan of Treatment section includes future care activities for the patient from all [place] treatmentfacilities. This section includes future appointments and future orders which are active, pending or scheduled. Future Appointments This section includes appointments that were scheduled to occur 6 months from the date of the Encounter, up to a maximum of 20 appointments. The data comes from all [place] treatment facilities. Appointment Date/Time Appointment Type Appointme nt Facility Name Dec 22, 2023 10:00 AM AMBULATORY - MEDICINE [place] [facility] Dec 31, 2023 09:00 AM AMBULATORY - MEDICINE [place] [facility] Dec 31, 2023 10:30 AM AMBULATORY - MEDICINE [place] [facility] January 22, 2024 02:30 PM AMBULATORY - MEDICINE [place] [facility] Feb 26, 2024 01:00 PM AMBULATORY - MEDICINE [place] Feb 26, 2024 01:15 PM AMBULATORY - MEDICINE [place] Mar 10, 2024 09:00 AM AMBULATORY - NONE [place] [facility] [place] [facility] Mar 18, 2024 09:30 AM AMBULATORY - MEDICINE [place] [facility] [facility] Mar 21, 2024 09:30 AM AMBULATORY - MEDICINE [place] [facility] [facility] Lab Results: +/- 30 days [...] Range Comment Oct 06, 2023 12:48 PM [facility] PSA Specimen Type: SERUM No comment entered. Ordering Provider: HAYLEY VERDUZCO Report Released Date/Time: Oct 06, 2023 12:38 PM Reporting Lab: [facility] [address] [facility] [address] Performing Lab: [facility] [address] [facility] [address] PSA 21.53 ng/mL H 0.00-4.00 Sep 18, 2023 12:07 PM [facility] FOLATE Specimen Type: SERUM No comment entered. Ordering Provider: HAYELY VERDUZCO Report Released Date/Time: Sep 18, 2023 11:50 AM Reporting Lab: [facility] [address] [facility] [address] Performing Lab: [facility] [address] [facility] [address] FOLATE 3.83 ng/mL L >5.2 Advance Directives: [...] this document. The data comes from all [place] facilities. Date Advance Directives Provider Source Apr [...] CT ABDOMEN /PELVIS W/WO CONTRAST: JAKE DUGAN [id number] -1945 M Exm Date: OCT 14, 2023@14:00 Req Phys: LUBA,NOLAN Pat Loc: NHM/OUTSIDE IMAGING NON-CNT (R Img Loc: OUTSIDE GENERAL RADIOLOGY Service: Unknown (Case 95 COMPLETE) OUTSIDE CT ABDOMEN/PELVIS W/WO CO(RAD Detailed) CPT:49427 Reason for Study: outside images have been uploaded for continuity of care Clinical History: outside images have been uploaded for continuity of care Report Status: Electronically Filed Date Reported: OCT 14, 2023 Report: THIS EXAM WAS PERFORMED AND INTERPRETED AT AN OUTSIDE HOSPITAL Impression: THIS EXAM WAS PERFORMED AND INTERPRETED AT AN OUTSIDE HOSPITAL Primary Diagnostic Code: VERIFIED BY: / *ELECTRONICALLY FILED* [facility] Encounter Notes: All associated encounter [...] REQUIRED Electronically Filed: 10/29/2023 by: SUNITA MCDONOUGH [facility]
--- OUTSIDE RECORDS SUMMARY | 2024-09-07 15:24 | XMS_ITS ---
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 ([place] Organization [facility] Address [address] [place] [address] Care Team Providers Care Work Study Student Name Role Phone ROWENA ROY Primary Care [...] Patient's Relationship to Policy Segal [facility] (R) MEDICARE ADVANTAGE [place] INDIV [place] - [place] Sep 21, 2023 [id number] [phone] GENET DUGAN S [facility] ([facility]NR[facility] MEDICARE ADVANTAGE [facility] ([facility]) Sep 21, 2023 [id number] [phone] MARVIN DUGANI S PATIENT HUSKY MEDICAID HUSKY PLAN May 22, 2022 MEDICAI D [id number] GENET DUGAN S PATIENT MEDICARE ([facility]) MEDICARE (M) PART B May 22, 2022 PART B [id number] MARVIN DUGANI S PATIENT MEDICARE ([facility]) MEDICARE (M) PART A Feb 19, 2009 PART A [id number] [id number] [phone] DUGAN,GENET S PATIENT MEDICARE PART D (WNR) MEDICARE (M) PART D Jul 22, 2022 PART D [id number] [phone] GENET DUGAN S PATIENT [facility] (WNR) MEDICARE ADVANTAGE [facility] (WNR) Sep 21, 2022 [id number] GENET DUGAN S PATIENT [facility] MCR (WNR) MEDICARE ADVANTAGE [facility] (WNR) Sep 21, 2022 [id number] GENET DUGAN PATIENT Selected Encounter This section includes the information on record at [place] for the Encounter. Date/Time Encounter Type Encounter Description Reason Pro vider Source Dec 04, 2023 01:16 PM Outpatient Encounter PRIMARY CARE/MEDICINE IHE Encounter Template Text not used by [place] Plan of Treatment: Future Appointments (+ 6 months) and Future Tests (+/- 45 days) The Plan of Treatment section includes future care activities for the patient from all [place] treatmentfacilities. This section includes future appointments and [...] - MEDICINE [place] [facility] [place] [place] [facility] Dec 31, 2023 09:00 AM AMBULATORY - MEDICINE [place] [facility] [place] [facility] Dec 31, 2023 10:30 AM AMBULATORY - MEDICINE [place] [facility] [place] [facility] January 22, 2024 02:30 PM AMBULATORY - MEDICINE [place] [facility] [place] [facility] Feb 26, 2024 01:00 PM AMBULATORY - MEDICINE [place] Feb 26, 2024 01:15 PM AMBULATORY - MEDICINE [place] Mar 10, 2024 09:00 AM AMBULATORY - NONE [place] [facility] [place] [facility] Mar 18, 2024 09:30 AM AMBULATORY - MEDICINE [place] [facility] [place] [facility] Mar 21, 2024 09:30 AM AMBULATORY - MEDICINE [place] [facility] [place] [facility] Apr 07, 2024 08:30 AM AMBULATORY - MEDICINE [place] [facility] [place] [facility] Apr 15, 2024 02:30 PM AMBULATORY - MEDICINE [place] [facility] Apr 27, 2024 10:00 AM AMBULATORY - MEDICINE [place] [place] [facility] May 13, 2024 11:00 AM AMBULATORY - MEDICINE [place] [facility] May 31, 2024 10:00 AM [facility] Jun 03, 2024 12:45 PM AMBULATORY - MEDICINE [facility] N[facility]L [facility] Lab Results: +/- 30 days of the encounter This section includes the Chemistry and Hematology Lab Results on record with [place] for the patient. Radiology Reports and Pathology Reports are provided separately, in subsequent sections. Lab Results This section contains the Chemistry/Hematology Results that were resulted 30 days before or 30 daysafter the date of the Encounter. Date/Time Source Result Type Result - Unit Interpretation Reference Range Comment Nov 30, 2023 10:39 AM [facility] PSA Specimen Type: SERUM No comment entered. Ordering Provider: HAYLEY VERDUZCO Report Released Date/Time: Nov 30, 2023 10:01 AM Reporting Lab: [facility] [address] [facility] [address] Performing Lab: [address] [address] PSA 35.69 ng/mL H 0.00-4.00 Advance Directives: [...] By: 12/04/2023 13:39 /mariana/ CAROL HOLLOWAY, BASIL[employer] Operations Welder JELANI BRANDON [place]
--- OUTSIDE RECORDS SUMMARY | 2024-09-07 15:24 | XMS_ITS | Encounter Summary ---
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 Organization [place] Address [address] [place] [address] Care Team Providers Care Fuse Cutter Name Role Phone ROWENA ROY Primary Care [...] Segal's Name Patient's Relationship to Policy Segal [facility] ([facility]) MEDICARE ADVANTAGE [place] IN[place] - [place] Sep 21, 2023 [id number] [phone] GENET DUGAN S PATIENT [facility] ([facility]) MEDICARE ADVANTAGE [facility] ([facility]) Sep 21, 2023 [id number] A [id number] [phone] DUGAN,GENET S PATIENT HUSKY MEDICAID HUSKY PLAN May 22, 2022 MEDICAI D [id number] MARVIN DUGANI S PATIENT MEDICARE ([facility]) MEDICARE () PART B May 22, 2022 PART B [id number] [id number] [phone] [id number] MARVIN DUGANI S PATIENT MEDICARE ([facility]) MEDICARE () PART A Feb 19, 2009 PART A [id number] GENET DUGAN S PATIENT MEDICARE PART D ([facility]) MEDICARE () PART D Jul 22, 2022 PART D [id number] [id number] GENET DUGAN S PATIENT [facility] (WNR) MEDICARE ADVANTAGE [facility] (WNR) Sep 21, 2022 [id number] GENET DUGAN S PATIENT [facility] (WNR) MEDICARE ADVANTAGE [facility] (WNR) Sep 21, 2022 [id number] GENET DUGAN PATIENT Selected Encounter This section includes the information on record at [place] for the Encounter. Date/Time Encounter Type Encounter Description Reason Pro vider Source IHE Encounter Template Text not used by [place] Advance Directives: All historical and current Section [...]
--- OUTSIDE RECORDS SUMMARY | 2024-09-07 15:25 | XMS_ITS | Encounter Summary ---
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 Organization [place] Address [address] [place] [id number] Care Team Providers Care Template Inspector Name Role Phone ROWENA ROY Primary Care Provider [facility] Insurance Providers: All historical and current [...] Segal's Name Patient's Relationship to Policy Segal [facility] ([facility]) MEDICARE ADVANTAGE [place] IN[place] IDUAL - [place] Sep 21, 2023 [id number] [phone] GENET DUGAN S [facility]IENT [facility] ([facility]) MEDICARE [facility] ([employer] [facility]) Sep 21, 2023 [id number] [phone] GENET DUGAN S PATIENT HUSKY MEDICAID HUSKY PLAN May 22, 2022 MEDICAI D [id number] GENET DUGAN S PATIENT MEDICARE ([facility]) MEDICARE () PART B May 22, 2022 PART B [id number] GENET DUGAN S PATIENT MEDICARE (WNR) MEDICARE () PART A Feb 19, 2009 PART A [id number] [phone] GENET DUGAN S PATIENT MEDICARE PART D (WNR) MEDICARE (M) PART D Jul 22, 2022 PART D [id number] [phone] GENET DUGAN S PATIENT [facility] (WNR) MEDICARE ADVANTAGE [facility] (WNR) Sep 21, 2022 [id number] GENET DUGAN S PATIENT [facility] (WNR) MEDICARE ADVANTAGE [facility] (WNR) Sep 21, 2022 [id number] [phone] GENET DUGAN PATIENT Selected Encounter This section includes the information on record at [place] for the Encounter. Date/Time Encounter Type Encounter Description Reason Provider Source Feb 26, 2024 01:15 PM OFFICE O/P EST MOD 30 MIN PRIMARY CARE/MEDICINE ICD-10-CM L02.818 Cutaneous abscess of other sites RENATA MCLAIN Encounter Template Text not used by [place] Assessments - Encounter Diagnoses This section includes [...] care activities for the patient from all [place] treatmentfacilities. This section includes future appointments and future orders which are active, pending or scheduled. Future Appointments This section includes appointments that were scheduled to occur 6 months from the date of the Encounter, up to a maximum of 20 appointments. The data comes from all [place] treatment facilities. Appointment Date/Time Appointment Type Appointme nt Facility Name Mar 10, 2024 09:00 AM AMBULATORY - NONE [place] [facility] [place] [facility] Mar 18, 2024 09:30 AM AMBULATORY - [place]ICINE [place] [facility] [place] [facility] Mar 21, 2024 09:30 AM AM[place]ULATORY [place]ICINE [place] [facility] [place] [facility] Apr 07, 2024 08:30 AM AMBULATORY - [place]ICINE [place] [facility] [place] [facility] Apr 15, 2024 02:30 PM AMBULATORY - [place]ICINE [place] [facility] [place] [facility] [...] [facility] [place] [facility] Aug 09, 2024 09:00 AM AMBULATORY - MEDICINE [place] [facility] [place] [facility] Aug 16, 2024 12:00 PM AMBULATORY - NONE [place] [facility] [place] [facility] Aug 22, 2024 11:20 AM AMBULATORY - MEDICINE [place] [facility] [place] [facility] Aug 24, 2024 11:00 AM [...] of theEncounter. The data comes from all [place] treatment facilities. Test Date/Time Test Type Test Details Facility Name Mar 19, 2024 12:00 AM Laboratory - Chemistry Order MICROALBUMIN CREATININE RATIO PANEL URINE (RANDOM) [place] [facility] [place] [facility] Mar 19, 2024 12:00 AM Laboratory - Chemistry Order FOLATE BLOOD (SST-SERUM) [place] [facility] [place] [facility] Mar 19, 2024 12:00 AM Laboratory - Chemistry Order VITAMIN B12 BLOOD (SST-SERUM) [place] [facility] [place] [facility] Mar 19, 2024 12:00 AM Laboratory - Chemistry Order VITAMIN D 25-OH (Therapy monitor) BLOOD (SST-SERUM) [place] [facility] [place] [facility] Mar 19, 2024 12:00 AM Laboratory - Chemistry Order BASIC METABOLIC PANEL (fasting) BLOOD (SST-SERUM) [place] [facility] [place] [facility] Mar 19, 2024 12:00 AM Laboratory - Chemistry Order LIPID PANEL FASTING BLOOD (SST-SERUM) [place] [facility] [place] [facility] Mar 19, 2024 12:00 AM Laboratory - Chemistry Order LIVER FUNCTION [facility]LOOD (SST-SERUM) [facility] Mar 19, 2024 12:00 AM Laboratory - Chemistry Order CBC AND DIFF (AUTO) BLOOD (LAV[facility]BLOOD) [facility] Mar 19, 2024 12:00 AM Laboratory - Chemistry Order HEMOGLOBIN A1C PANEL BLOOD (LAV-BLOOD) [facility] Mar 19, 2024 12:00 AM Laboratory - Chemistry Order TSH BLOOD (SST-SERUM) [facility] Mar 19, 2024 12:00 AM Laboratory - Chemistry Order PSA BLOOD (SST-SERUM) [facility] Vital Signs: All taken on the encounter date This section contains inpatient and outpatient Vital Signs collected on the date of the Encounter. Date/Time Temperature Pulse Blood Pressure Respiratory Rate SP02 Pain Height Weight Body Mass Index Source Feb 26, 2024 01:38 PM 98.2 70 148/73 14 96 [place] IE Social History: Smoking Status (Most current) and Tobacco Use (All prior to encounter date) This section includes the most current, and the historical, smoking and tobacco- related health factors from the [place] facility where the Encounter took place. Current Smoking Status This section includes the most current smoking, or tobacco-related health factor, from the [place] facility where the Encounter took place. Date/Time Current Smoking Status Comment Facil ity Jun 23, 2023 09:00 AM [place]-TOBACCO QUIT 15 YRS OR MORE [place] Tobacco Use History This section includes a history of the smoking, or tobacco-related health factors, that were collected on or before the date of the Encounter. The data comes from the [place] facility where the Encounter took place. Date/Time Smoking Status/Tobacco Use Comment F acility Jun 23, 2023 09:00 AM VA-TOBACCO QUIT 15 YRS OR MORE [place] May 01, 2022 01:30 PM VA-TOBACCO FORMER USER [place] May 01, 2022 01:30 PM VA-TOBACCO QUIT 15 YRS OR MORE [place] Apr 15, 2021 03:00 PM VA-TOBACCO FORMER USER [place] Apr 15, 2021 03:00 PM VA-TOBACCO QUIT 15 YRS OR MORE [place] Oct 20, 2018 12:53 PM VA-TOBACCO FORMER USER [place] Oct 20, 2018 12:53 PM VA-TOBACCO QUIT 15 YRS OR MORE [place] Jul 03, 2017 10:33 AM QUIT TOBACCO USE > 7 YEARS AGO quit 25yrs ago [place] February 13, 2016 08:46 AM LIFETIME NON-TOBACCO USER [place] Advance Directives: All historical and current Section Date Range: From patient's date of to the date document was created. This section includes ALL of a patient's completed or amended [place] Advance and Rescinded Directives. The entries below indicate that a directive exists for the patient, but an actual copy is not included with this document. The data comes from all [place] facilities. Date Advance Directives Provider Source Apr 04, 2024 ADVANCE DIRECTIVE [facility] Encounter Notes: All associated encounter [...] a 78 y/o DECLINED TO ANSWER MALE Depew who presents to [facility] sick call with c/o Abscess right upper back x 1 week. Went to urgent care on Thursday and they did manual expression of lateral end of abscess with minimal removal of contents. Started oral ATB. Site is painful and quite large. Has multiple skin lesions he would like Dermatology to see. [place] PCP: ======= NOLAN VERDUZCO VITAL SIGNS: Blood Pressure: 148/73 (02/26/2024 13:38) Pain: 0 (01/22/2024 15:44) Patient Height: 70 in [177.8 cm] (01/22/2024 15:44) Patient Weight: 184 lb [83.46 kg] (01/22/2024 15:44) Pulse: 70 (02/26/2024 13:38) Respiration: 14 (02/26/2024 13:38) Temperature: 98.2 F [36.8 C] (02/26/2024 13:38) REVIEW OF SYSTEMS: see HPI PHYSICAL EXAMINATION: General: Well-appearing in no obvious distress. Mental Status: Alert [...] to Derm for eval. MEDICATIONS reviewed with [place] FOLLOW UP: Return to clinic 3-5 days if no improvement in symptoms. UPCOMING APPOINTMENTS: No data available /mariana/ PARISH MALDONADO CERTIFIED NURSE PRACTITIONER Signed: 02/26/2024 14:13 RENATA MCLAIN [place]
--- OUTSIDE RECORDS SUMMARY | 2024-09-07 15:25 | XMS_ITS ---
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 Organization [facility] Address [address] [place] [id number] Care Team Providers Care Circulating Process Inspector Name Role Phone ROWENA ROY Primary [...] Name Patient's Relationship to Policy Segal [facility] (R) MEDICARE ADVANTAGE [place] IN[place] - [place] Sep 21, 2023 [id number] [phone] GENET DUGAN S [facility]IENT [facility] (WNR) MEDICARE ADVANTAGE [facility] Sep 21, 2023 [id number] [phone] MARVIN DUGANI S PATIENT HUSKY MEDICAID HUSKY PLAN May 22, 2022 MEDICAI D [id number] GENET DUGAN S PATIENT MEDICARE ([facility]) MEDICARE (M) PART B May 22, 2022 PART B [id number] [id number] [phone] MARVIN DUGANI S PATIENT MEDICARE ([facility]) MEDICARE (M) PART A Feb 19, 2009 PART A [id number] [id number] [phone] DUGAN,GENET S PATIENT MEDICARE PART D (WNR) MEDICARE (M) PART D Jul 22, 2022 PART D [id number] [phone] GENET DUGAN S PATIENT [facility] (WNR) MEDICARE ADVANTAGE [facility] (WNR) Sep 21, 2022 [id number] [phone] GENET DUGAN S PATIENT [facility] (WNR) MEDICARE ADVANTAGE [facility] (WNR) Sep 21, 2022 [id number] GENET DUGAN PATIENT Selected Encounter This [...] - NONE [place] [facility] [place] [facility] Mar 18, 2024 09:30 AM AMBULATORY - MEDICINE [place] [facility] [place] [facility] Mar 21, 2024 09:30 AM AMBULATORY - MEDICINE [place] [facility] [place] [facility] Apr 07, 2024 08:30 AM AMBULATORY - MEDICINE [place] [facility] [facility] Apr 15, 2024 02:30 PM AMBULATORY - MEDICINE [place] [facility] [facility] Apr 27, 2024 10:00 AM AMBULATORY - MEDICINE [place] [facility] [place] [facility] May 13, 2024 11:00 AM AMBULATORY - MEDICINE [place] [facility] [place] [facility] May 31, 2024 10:00 AM AMBULATORY - MEDICINE [place] [facility] [place] [facility] Jun 03, 2024 12:45 PM AMBULATORY - MEDICINE [place] [facility] [place] [facility] Jun 21, 2024 09:00 AM AMBULATORY [facility]ICINE [facility] Aug 09, 2024 09:00 AM AMBULATORY - MEDICINE [place] [facility] Aug 16, 2024 12:00 PM [facility] Aug 22, 2024 11:20 AM AM[facility]ULATORY - [facility]ICINE [place] [facility] Aug 24, 2024 11:00 AM [facility] Active, Pending, and Scheduled Orders This [...] Order MICROALBUMIN CREATININE RATIO PANEL URINE (RANDOM) [facility] Mar 19, 2024 12:00 AM Laboratory - Chemistry Order VITAMIN B12 BLOOD (SST-SERUM) [facility] Mar 19, 2024 12:00 AM Laboratory - Chemistry Order FOLATE BLOOD (SST-SERUM) [facility] Mar 19, 2024 12:00 AM Laboratory - Chemistry Order VITAMIN D 25-OH (Therapy monitor) BLOOD (SST-SERUM) [facility] Mar 19, 2024 12:00 AM Laboratory - Chemistry Order BASIC METABOLIC PANEL (fasting) BLOOD (SST-SERUM) [facility] Mar 19, 2024 12:00 AM Laboratory - Chemistry Order LIPID PANEL FASTING BLOOD (SST-SERUM) [facility] Mar 19, 2024 12:00 AM Laboratory - Chemistry Order HEMOGLOBIN A1C PANEL BLOOD (LAV-BLOOD) [facility] Mar 19, 2024 12:00 AM Laboratory - Chemistry Order LIVER FUNCTION BLOOD (SST-SERUM) [facility] Mar 19, 2024 12:00 AM Laboratory - Chemistry Order CBC AND DIFF (AUTO) BLOOD (LAV-BLOOD) [facility] Mar 19, 2024 12:00 AM Laboratory - Chemistry Order TSH BLOOD (SST-SERUM) [facility] Mar 19, 2024 12:00 AM Laboratory - Chemistry Order PSA BLOOD (SST-SERUM) [facility] Advance Directives: All historical and [...] 2024 [facility]ANCE [facility] Encounter Notes: All associated encounter [...] encounter the below scheduled visits for the [place] were discussed and appointment reminder card was offered. IS REQUESTING TO BE SEEN FOR BOIL ON BACK X9 DAYS. Future appointments: 03/18/2024 09:30 CWM/SO/PACT 9 NURSING 03/21/2024 09:30 CWM/SO/PACT 9 06/03/2024 12:45 [facility] CARE-OPHTHALMOLOGY 01/02/2025 10:00 CWM/NO/OPTOMETRY/MERHAR /mariana/ KENIA DELGADO ADVANCED ASSISTANT MERCHANDISER Signed: 02/26/2024 13:09 Receipt Acknowledged By: 02/26/2024 13:22 /es/ PARISH MALDONADO CERTIFIED NURSE PRACTITIONER 02/26/2024 15:25 /es/ LATISHA CORRALES RN REGISTERED NURSE 02/26/2024 13:13 /es/ OUMAR MOOREN,RN-BC REGISTERED NURSE (RN) 02/26/2024 ADDENDUM STATUS: COMPLETED THIS ECOMMERCE ANALYST REQUESTED RECORDS FROM [facility]. /mariana/ KENIA DELGADO ADVANCED ASSISTANT MERCHANDISER Signed: 02/26/2024 13:15 02/26/2024 ADDENDUM STATUS: COMPLETED ER NOTES FROM [facility] WERE PLACED INTO CWM/SO/PACT EIGHT FOLDER. /mariana/ KENIA DELGADO ADVANCED ASSISTANT MERCHANDISER Signed: 02/26/2024 13:51 KENIA DELGADO ALBION
--- OUTSIDE RECORDS SUMMARY | 2024-09-07 15:26 | XMS_ITS ---
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 Organization [place] Address [address] [place] [id number] Care Team Providers Care Structurer Name Role Phone ROWENA ROY Primary Care [...] Segal's Name Patient's Relationship to Policy Segal [facility] (R) MEDICARE ADVANTAGE [place] Sep 21, 2023 [id number] [phone] GENET DUGNA S [facility]IENT [facility] (WNR) MEDICARE ADVANTAGE [facility] Sep 21, 2023 [id number] [phone] DUGAN,GENET S PATIENT HUSKY MEDICAID HUSKY PLAN May 22, 2022 MEDICAI D [id number] MARVIN DUGANI S PATIENT MEDICARE ([facility]) MEDICARE (M) PART B May 22, 2022 PART B [id number] [id number] [phone] DUGAN,GENET S PATIENT MEDICARE (WN) MEDICARE (M) PART A Feb 19, 2009 PART A [id number] DUGAN,GENET S PATIENT MEDICARE PART D (WNR) MEDICARE (M) PART D Jul 22, 2022 PART D [id number] [phone] GENET DUGAN S PATIENT [facility] (WNR) MEDICARE ADVANTAGE [facility] (WNR) Sep 21, 2022 [id number] GENET DUGAN S PATIENT [facility] M[facility] (WNR) MEDICARE ADVANTAGE [facility] (WNR) Sep 21, 2022 [id number] GENET DUGAN PATIENT Selected Encounter This [...] 2024 01:00 PM AMBULATORY - [facility]ICINE [facility] Feb 26, 2024 01:15 PM AMBULATORY - MEDICINE [facility] Mar 10, 2024 09:00 AM AMBULATORY - NONE [place] [facility] [place] [facility] Mar 18, 2024 09:30 AM AMBULATORY - MEDICINE [place] [facility] [place] [facility] Mar 21, 2024 09:30 AM AMBULATORY - MEDICINE [place] [facility] [place] [facility] Apr 07, 2024 08:30 AM AMBULATORY - MEDICINE [place] [facility] [place] [facility] Apr 15, 2024 02:30 PM AMBULATORY - MEDICINE [place] [facility] [place] [facility] Apr 27, 2024 10:00 AM AMBULATORY - MEDICINE [place] [facility] [place] [facility] May 13, 2024 11:00 AM AMBULATORY - MEDICINE [place] [facility] [place] [facility] May 31, 2024 10:00 AM AMBULATORY - MEDICINE [place] [facility] [place] [facility] Jun 03, 2024 12:45 PM AMBULATORY - MEDICINE [place] [facility] [place] [facility] Jun 21, 2024 09:00 AM AMBULATORY - MEDICINE [place] [facility] [place] [facility] Aug 09, 2024 09:00 AM AMBULATORY - MEDICINE [place] [facility] [place] [facility] Aug 16, 2024 12:00 PM AMBULATORY - NONE [place] [facility] Aug 22, 2024 11:20 AM AMBULATORY - MEDICINE [place] C [facility] Active, Pending, and Scheduled Orders This section [...] - Chemistry Order VITAMIN B12 BLOOD (SST-SERUM) [facility] Mar 19, 2024 12:00 AM Laboratory - Chemistry Order MICROALBUMIN CREATININE RATIO PANEL URINE (RANDOM) [facility] Mar 19, 2024 12:00 AM Laboratory - Chemistry Order FOLATE BLOOD (SST-SERUM) [facility] Mar 19, 2024 12:00 AM Laboratory - Chemistry Order VITAMIN D 25-OH (Therapy monitor) BLOOD (SST-SERUM) [facility] Mar 19, 2024 12:00 AM Laboratory - Chemistry Order BASIC METABOLIC PANEL (fasting) BLOOD (SST-SERUM) [facility] Mar 19, 2024 12:00 AM Laboratory - Chemistry Order LIPID PANEL FASTING BLOOD (SST-SERUM) [facility] Mar 19, 2024 12:00 AM Laboratory - Chemistry Order LIVER FUNCTION BLOOD (SST-SERUM) [facility] Mar 19, 2024 12:00 AM Laboratory - Chemistry Order CBC AND DIFF (AUTO) BLOOD (LAV-BLOOD) [facility] Mar 19, 2024 12:00 AM Laboratory - Chemistry Order HEMOGLOBIN A1C PANEL BLOOD (LAV-BLOOD) [facility] Mar 19, 2024 12:00 AM Laboratory - Chemistry Order TSH BLOOD (SST-SERUM) [facility] Mar 19, 2024 12:00 AM Laboratory - Chemistry Order PSA BLOOD (SST-SERUM) [facility] Advance Directives: All historical and [...] REQUIRED Electronically Filed: 03/01/2024 by: ANIBAL SHEARER DATA BASE DESIGN ANALYST ANIBAL SHEARER [facility]
--- OUTSIDE RECORDS SUMMARY | 2024-09-07 15:26 | XMS_ITS | Encounter Summary ---
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 Organization [place] Address [address] [place] [id number] Care Team Providers Care Med Specialist Name Role Phone ROWENA ROY Primary Care [...] INDIV IDUAL - MASS Sep 21, 2023 [id number] [phone] GENET DUGAN S [facility] ADVANTAGE [facility] ([facility]) Sep 21, 2023 [id number] [phone] MARVIN DUGANI S PATIENT HUSKY MEDICAID HUSKY PLAN May 22, 2022 MEDICAI D [id number] GENET DUGAN S PATIENT MEDICARE ([facility]) MEDICARE (M) PART B May 22, 2022 PART B [id number] GENET DUGAN S PATIENT MEDICARE (WNR) MEDICARE (M) PART A Feb 19, 2009 PART A [id number] [id number] [phone] MARVIN DUGANI S PATIENT MEDICARE PART D (WNR) MEDICARE (M) PART D Jul 22, 2022 PART D [id number] [phone] GENET DUGAN PATIENT [facility] (WNR) MEDICARE ADVANTAGE [facility] (WNR) Sep 21, 2022 [id number] GENET DUGAN PATIENT [facility] (WNR) MEDICARE ADVANTAGE [facility]CR (WNR) Sep 21, 2022 [id number] [phone] GENET DUGAN PATIENT Selected Encounter This section includes the information on record at [place] for the Encounter. Date/Time Encounter Type Encounter Description Reason Provider Source Feb 26, 2024 01:00 PM OFF/OP EST JANUARY X REQ PHY/QHP PRIMARY CARE/MEDICINE ICD-10-CM L02.212 Cutaneous abscess of back [any part, except buttock] [facility] Encounter Template Text not used by [place] Assessments - Encounter Diagnoses This section includes the primary and secondary diagnoses documented for the Encounter. Date/Time Primary/Secondary Diagnosis Diagnosis Name Provider Source Feb 26, 2024 02:15 PM PRIMARY Cutaneous abscess of back [any part, except buttock] [facility] Plan of Treatment: Future Appointments (+ 6 [...] AMBULATORY - NONE [place] [facility] [place] [facility] Mar 18, 2024 09:30 AM AMBULATORY - [place]ICINE [place] [facility] [place] [facility] Mar 21, 2024 09:30 AM AMBULATORY - MEDICINE [place] [facility] [place] [facility] Apr 07, 2024 08:30 AM AMBULATORY - [place]ICINE [place] [facility] [place] [facility] Apr 15, 2024 02:30 PM AMBULATORY - MEDICINE [place] [facility] [place] [facility] Apr 27, 2024 10:00 AM AMBULATORY - MEDICINE [place] [facility] [place] [facility] May 13, 2024 11:00 AM AMBULATORY - MEDICINE [place] [facility] [place] [facility] May 31, 2024 10:00 AM AMBULATORY - MEDICINE [place] [facility] [place] [facility] Jun 03, 2024 12:45 PM AMBULATORY - MEDICINE [place] [facility] [place] [facility] Jun 21, 2024 09:00 AM AMBULATORY - MEDICINE [place] [facility] [place] [facility] Aug 09, 2024 09:00 AM AMBULATORY - MEDICINE [place] [facility] [place] [facility] Aug 16, 2024 12:00 PM AMBULATORY - NONE [place] [facility] [place] [facility] Aug 22, 2024 11:20 AM AMBULATORY - MEDICINE [place] [facility] [place] [facility] Aug 24, 2024 11:00 AM [...] of theEncounter. The data comes from all [place] treatment facilities. Test Date/Time Test Type Test Details Facility Name Mar 19, 2024 12:00 AM Laboratory - Chemistry Order MICROALBUMIN CREATININE RATIO PANEL URINE (RANDOM) [facility] [place] [facility] Mar 19, 2024 12:00 AM Laboratory - Chemistry Order VITAMIN B12 BLOOD (SST-SERUM) [facility] [place] [facility] Mar 19, 2024 12:00 AM Laboratory - Chemistry Order VITAMIN D 25-OH (Therapy monitor) BLOOD (SST-SERUM) SP [facility] [place] [facility] Mar 19, 2024 12:00 AM Laboratory - Chemistry Order FOLATE BLOOD (SST-SERUM) [facility] [place] [facility] Mar 19, 2024 12:00 AM Laboratory - Chemistry Order BASIC METABOLIC PANEL (fasting) BLOOD (SST-SERUM) [facility] [place] [facility] Mar 19, 2024 12:00 AM Laboratory - Chemistry Order LIPID PANEL FASTING BLOOD (SST-SERUM) [facility] [place] [facility] Mar 19, 2024 12:00 AM Laboratory - Chemistry Order LIVER FUNCTION BLOOD (SST-SERUM) [facility] Mar 19, 2024 12:00 AM Laboratory - Chemistry Order HEMOGLOBIN A1C PANEL BLOOD (LAV-BLOOD) [facility] Mar 19, 2024 12:00 AM Laboratory - Chemistry Order CBC AND DIFF (AUTO) BLOOD (LAV-BLOOD) [facility] Mar 19, 2024 12:00 AM Laboratory - Chemistry Order TSH BLOOD (SST-SERUM) [facility] Mar 19, 2024 12:00 AM Laboratory - Chemistry Order PSA BLOOD (SST-SERUM) [facility] Vital Signs: All taken on the [...] Facil ity Jun 23, 2023 09:00 AM [place]-TOBACCO FORMER USER [facility] Tobacco Use History This section includes a history of the smoking, or tobacco-related health factors, that were collected on or before the date of the Encounter. The data comes from the [place] facility where the Encounter took place. Date/Time Smoking Status/Tobacco Use Comment F acility Jun 23, 2023 09:00 AM VA-TOBACCO QUIT 15 YRS OR MORE [facility] May 01, 2022 01:30 PM VA-TOBACCO FORMER USER [facility] May 01, 2022 01:30 PM VA-TOBACCO QUIT 15 YRS OR MORE [facility] Apr 15, 2021 03:00 PM VA-TOBACCO FORMER USER [facility] Apr 15, 2021 03:00 PM VA-TOBACCO QUIT 15 YRS OR MORE [facility] Oct 20, 2018 12:53 PM VA-TOBACCO FORMER USER [facility] Oct 20, 2018 12:53 PM VA-TOBACCO QUIT 15 YRS OR MORE [facility] Jul 03, 2017 10:33 AM QUIT TOBACCO USE > 7 YEARS AGO quit 25yrs ago [facility] February 13, 2016 08:46 AM LIFETIME NON-TOBACCO USER [facility] Advance Directives: All historical and current Section Date Range: From patient's date of to the date document was created. This section includes ALL of a patient's completed or amended [place] Advance and Rescinded Directives. The entries below indicate that a directive exists for the patient, but an actual copy is not included with this document. The data comes from all [place] facilities. Date Advance Directives Provider Source Apr [...] to Start Nurse Data: 78year old MALE [place] reports to Primary Care clinic for Walk-In visit. [place]'s PCP is NOLAN VERDUZCO. Today Vet walks [...] and attended to by Michel Christianson NP. [place] also requesting a dermatology consult for multiple skin bumps: one on his left arm, two on his lower back and one on his chest. Response: /es/ LATISHA CORRALES RN REGISTERED NURSE Signed: 02/26/2024 14:15 LATISHA CORRALES
--- OUTSIDE RECORDS SUMMARY | 2024-09-07 15:27 | XMS_ITS | Encounter Summary ---
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 Organization [place] Address [address] [place] [address] Care Team Providers Care Travel Professional Name Role Phone ROWENA ROY Primary Care [...] Segal's Name Patient's Relationship to Policy Segal [facility] ([facility]) MEDICARE ADVANTAGE [place] INDIV IDUAL - [place] Sep 21, 2023 [id number] [phone] GENET [facility] S [facility] ([facility]) Sep 21, 2023 [id number] [phone] GENET DUGAN S PATIENT HUSKY MEDICAID HUSKY PLAN May 22, 2022 MEDICAI D [id number] GENET DUGAN S PATIENT MEDICARE ([facility]) MEDICARE () PART B May 22, 2022 PART B [id number] GENET DUGAN S PATIENT MEDICARE (WNR) MEDICARE () PART A Feb 19, 2009 PART A [id number] GENET DUGAN S PATIENT MEDICARE PART D (WNR) MEDICARE (M) PART D Jul 22, 2022 PART D [id number] [id number] GENET DUGAN S PATIENT [facility] (WNR) MEDICARE ADVANTAGE [facility] (WNR) Sep 21, 2022 [id number] GENET DUGAN S PATIENT [facility] (WNR) MEDICARE ADVANTAGE [facility] (WNR) Sep 21, 2022 [id number] [phone] GENET DUGAN PATIENT Selected Encounter This section includes the information on record at [place] for the Encounter. Date/Time Encounter Type Encounter Description Reason Provider Source Mar 10, 2024 09:00 AM UNLISTED SPEC DERM SVC/PX DERMATOLOGY ICD-10-CM Z13.89 Encounter for screening for other disorder CAMILA POSADA [place] Encounter Template Text not used by [place] [...] activities for the [facility] [place] [facility] This section includes future appointments and [...] 18, 2024 09:30 AM AMBULATORY - MEDICINE [place] [facility] [place] [facility] Mar 21, 2024 09:30 AM AMBULATORY - MEDICINE [place] [facility] [place] [facility] Apr 07, 2024 08:30 AM AMBULATORY - MEDICINE [place] [facility] [place] [facility] Apr 15, 2024 02:30 PM AMBULATORY - MEDICINE [place] [facility] [place] [facility] Apr 27, 2024 10:00 AM AMBULATORY - MEDICINE [place] [facility] [place] [facility] May 13, 2024 11:00 AM AMBULATORY - MEDICINE [place] [facility] [place] [facility] May 31, 2024 10:00 AM AMBULATORY - MEDICINE [place] [facility] [place] [facility] Jun 03, 2024 12:45 PM AMBULATORY - MEDICINE [place] [facility] [place] [facility] Jun 21, 2024 09:00 AM AMBULATORY - MEDICINE [place] [facility] [place] [facility] Aug 09, 2024 09:00 AM AMBULATORY - MEDICINE [place] [facility] [place] [facility] Aug 16, 2024 12:00 PM AMBULATORY - NONE [facility] [place] [facility] Aug 22, 2024 11:20 AM AMBULATORY - MEDICINE [place] [facility] [place] [facility] Aug 24, 2024 11:00 AM AMBULATORY - MED[facility] Sep 01, 2024 11:00 AM AMBULATORY - NONE [facility] [place] [facility] Sep 07, 2024 03:00 PM AMBULATORY - MEDICINE [place] [facility] [place] [facility] Active, Pending, and Scheduled Orders [...] URINE (RANDOM) [facility] [place] [facility] Mar 19, 2024 12:00 AM Laboratory - Chemistry Order VITAMIN B12 BLOOD (SST-SERUM) SP [facility] [place] [facility] Mar 19, 2024 12:00 AM Laboratory - Chemistry Order FOLATE BLOOD (SST-SERUM) [facility] [place] [facility] Mar 19, 2024 12:00 AM Laboratory - Chemistry Order VITAMIN D 25-OH (Therapy monitor) BLOOD (SST-SERUM) [facility] [place] [facility] Mar 19, 2024 12:00 AM Laboratory - Chemistry Order BASIC METABOLIC PANEL (fasting) BLOOD (SST-SERUM) [facility] [place] [facility] Mar 19, 2024 12:00 AM Laboratory - Chemistry Order LIPID PANEL FASTING BLOOD (SST-SERUM) [facility] Mar 19, 2024 12:00 AM Laboratory - Chemistry Order LIVER FUNCTION BLOOD (SST-SERUM) [facility] Mar 19, 2024 12:00 AM Laboratory - Chemistry Order CBC AND DIFF (AUTO) [facility]LO[facility] (LAV[facility]BLOOD[facility] Mar 19, 2024 12:00 AM Laboratory - Chemistry Order TSH BLOOD (SST-SERUM) [facility] Mar 19, 2024 12:00 AM Laboratory - Chemistry Order HEMOGLOBIN A1C PANEL BLOOD (LAV-BLOOD) [facility] Mar 19, 2024 12:00 AM Laboratory - Chemistry Order PSA BLOOD (SST-SERUM) [facility] Social History: Smoking Status (Most [...] Facil ity Jun 23, 2023 09:00 AM [place]-TOBACCO FORMER USER [facility] Tobacco Use History This section includes a history of the smoking, or tobacco-related health factors, that were collected on or before the date of the Encounter. The data comes from the [place] facility where the Encounter took place. Date/Time Smoking Status/Tobacco Use Comment F acility Jun 23, 2023 09:00 AM VA-TOBACCO QUIT 15 YRS OR MORE [facility] May 01, 2022 01:30 PM VA-TOBACCO FORMER USER [facility] May 01, 2022 01:30 PM VA-TOBACCO QUIT 15 YRS OR MORE [facility] Apr 15, 2021 03:00 PM VA-TOBACCO FORMER USER [facility] Apr 15, 2021 03:00 PM VA-TOBACCO QUIT 15 YRS OR MORE [facility] Oct 20, 2018 12:53 PM VA-TOBACCO FORMER USER [facility] Oct 20, 2018 12:53 PM VA-TOBACCO QUIT 15 YRS OR MORE [facility] Jul 03, 2017 10:33 AM QUIT TOBACCO USE > 7 YEARS AGO quit 25yrs ago [facility] February 13, 2016 08:46 AM LIFETIME NON-TOBACCO USER [facility] Advance Directives: All historical and current Section [...] 04, 2024 ADVANCE DIRECTIVE CHAPINCITO DEE Doug [facility] Encounter Notes: All associated encounter [...] TREATMENT: Yes Details: Compound W BIOPSY: No Bird Sitter's comments: Imaged per provider's direction and facility protocol. /mariana/ NELL POSADA TELEHEALTH CLINICAL TECHNIAN (TCT) Signed: 03/10/2024 15:23 NELL PSOADA
--- OUTSIDE RECORDS SUMMARY | 2024-09-07 15:27 | XMS_ITS | Encounter Summary ---
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 Organization [place] Address [address] [place] [address] Care Team Providers Care Occupational Therapy Supervisor Name Role Phone ROWENA ROY Primary Care [...] Name Patient's Relationship to Policy Segal AETNA [facility] ([facility]) MEDICARE ADVANTAGE [place] INDIV IDUAL - [place] Sep 21, 2023 [id number] [phone] GENET DUGAN S PATIENT AETNA [facility] ([facility]) MEDICARE ADVANTAGE [facility] ([facility]) Sep 21, 2023 [id number] [phone] DUGAN,GENET S PATIENT HUSKY MEDICAID HUSKY PLAN May 22, 2022 MEDICAI D [id number] MARVIN DUGANI S PATIENT MEDICARE ([facility]) MEDICARE () PART B May 22, 2022 PART B [id number] MARVIN DUGANI S PATIENT MEDICARE ([facility]) MEDICARE () PART A Feb 19, 2009 PART A [id number] GENET DUGAN S PATIENT MEDICARE PART D ([facility]) MEDICARE () PART D Jul 22, 2022 PART D [id number] [id number] GENET DUGAN S PATIENT [facility] (WNR) MEDICARE ADVANTAGE [facility] (WNR) Sep 21, 2022 [id number] GENET DUGAN S PATIENT [facility] (WNR) MEDICARE ADVANTAGE [facility] (WNR) Sep 21, 2022 [id number] GENET DUGAN PATIENT Selected Encounter This section [...] Source Apr 04, 2024 [facility]
--- OUTSIDE RECORDS SUMMARY | 2024-09-07 15:27 | XMS_ITS | Encounter Summary ---
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 Organization [place] Address [address] [place] [id number] Care Team Providers Care Whitewater Rafting Guide Name Role Phone ROWENA ROY Primary Care Provider [facility] Insurance Providers: All historical and current [...] Segal's Name Patient's Relationship to Policy Segal [facility] MEDICARE ADVANTAGE [place] IN[place] - [place] Sep 21, 2023 [id number] [phone] GENET [facility]UGAN S [facility] ([facility]) Sep 21, 2023 [id number] [phone] GENET DUGAN S PATIENT HUSKY MEDICAID HUSKY PLAN May 22, 2022 MEDICAI D [id number] GENET DUGAN S PATIENT MEDICARE ([facility]) MEDICARE () PART B May 22, 2022 PART B [id number] GENET DUGAN S PATIENT MEDICARE (WNR) MEDICARE () PART A Feb 19, 2009 PART A [id number] GENET DUGAN S PATIENT MEDICARE PART D (WNR) MEDICARE (M) PART D Jul 22, 2022 PART D [id number] DUGAN,GENET S PATIENT [facility] (WNR) MEDICARE ADVANTAGE [facility] (WNR) Sep 21, 2022 [id number] DUGAN,GENET S PATIENT [facility] (WNR) MEDICARE ADVANTAGE [facility] (WNR) Sep 21, 2022 [id number] GENET DUGAN S PATIENT Selected Encounter This section includes the information on record at CT for the Encounter. Date/Time Encounter Type Encounter Description Reason Provider Source Mar 21, 2024 09:30 AM OFFICE O/P EST MOD 30 MIN PRIMARY CARE/MEDICINE ICD-10-CM 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, unspecified LUBA,APOLI MARLIN E Encounter Template Text not used by CT Assessments - Encounter Diagnoses This section includes the primary and secondary diagnoses documented for the Encounter. Date/Time Primary/Secondary Diagnosis Diagnosis Name Provider Source Mar 21, 2024 10:16 AM PRIMARY Obstructive and reflux uropathy, unspecified LUBA,HAYLEY ISAAC [place] Mar 21, 2024 10:16 AM SECONDARY Carcinoma in situ of prostate LUBA,HAYLEY [facility] Mar 21, 2024 10:16 AM SECONDARY Encounter for immunization CAROLA GARCIA CEASAR Plan of Treatment: Future Appointments (+ 6 [...] 07, 2024 08:30 AM AMBULATORY - MEDICINE [facility] [place] [facility] Apr 15, 2024 02:30 PM AMBULATORY - MEDICINE [facility] [facility] Apr 27, 2024 10:00 AM AMBULATORY - MEDICINE [facility] C [facility] [place] [facility] May 13, 2024 11:00 AM AMBULATORY - MEDICINE [facility] [facility] May 31, 2024 10:00 AM AMBULATORY - MEDICINE [place] [facility] [facility] Jun 03, 2024 12:45 PM AMBULATORY - MEDICINE [place] [facility] [place] [facility] Jun 21, 2024 09:00 AM AMBULATORY - MEDICINE [place] [facility] [facility] Aug 09, 2024 09:00 AM AMBULATORY - MEDICINE [place] [facility] [place] [facility] Aug 16, 2024 12:00 PM AMBULATORY - NONE [facility] [place] [facility] Aug 22, 2024 11:20 AM AMBULATORY - MEDICINE [place] [facility] [place] [facility] Aug 24, 2024 11:00 AM [facility] Sep 01, 2024 11:00 AM AMBULATORY - NONE [place] [facility] [place] [facility] Sep 07, 2024 03:00 PM AMBULATORY - MEDICINE [place] [facility] [place] [facility] Active, Pending, and Scheduled Orders This section includes a listing of several types of active, pending, and scheduled orders, including clinic medications orders, diagnostic test orders, procedure orders and consult orders; where the start date of the order is 45 days before the date of the Encounter or 45 days after the date of theEncounter. The data comes from all [place] treatment facilities. Test Date/Time Test Type Test Details Facility Name Mar 19, 2024 12:00 AM Laboratory - Chemistry Order MICROALBUMIN CREATININE RATIO PANEL URINE (RANDOM) [facility] [place] [facility] Mar 19, 2024 12:00 AM Laboratory - Chemistry Order VITAMIN B12 BLOOD (SST-SERUM) [facility] [place] [facility] Mar 19, 2024 12:00 AM Laboratory - Chemistry Order FOLATE BLOOD (SST-SERUM) [facility] [place] [facility] Mar 19, 2024 12:00 AM Laboratory - Chemistry Order VITAMIN D 25-OH (Therapy monitor) BLOOD (SST-SERUM) [facility] [place] [facility] Mar 19, 2024 12:00 AM Laboratory - Chemistry Order BASIC METABOLIC PANEL (fasting) BLOOD (SST-SERUM) [facility] [place] [facility] Mar 19, 2024 12:00 AM Laboratory - Chemistry Order LIPID PANEL FASTING BLOOD (SST-SERUM) [facility] Mar 19, 2024 12:00 AM Laboratory - Chemistry Order LIVER FUNCTION BLOOD (SST-SERUM) [facility] Mar 19, 2024 12:00 AM Laboratory - Chemistry Order HEMOGLOBIN A1C PANEL BLOOD (LAV-BLOOD) [facility] Mar 19, 2024 12:00 AM Laboratory - Chemistry Order CBC AND DIFF (AUTO) BLOOD (LAV-BLOOD) [facility] Mar 19, 2024 12:00 AM Laboratory - Chemistry Order TSH BLOOD (SST-SERUM) [facility] Mar 19, 2024 12:00 AM Laboratory - Chemistry Order PSA BLOOD (SST-SERUM) [facility] Immunizations: All administered on the encounter date This section contains immunizations associated to the Encounter. Immunization Series Date Issued Reaction Comments HEP A, ADULT 2 Mar 21, 2024 Social History: Smoking Status (Most current) and Tobacco Use (All prior to encounter date) This section includes the most current, and the historical, smoking and tobacco- related health factors from the [place] facility where the Encounter took place. Current Smoking Status This section includes the most current smoking, or tobacco-related health factor, from the [place] facility where the Encounter took place. Date/Time Current Smoking Status Comment Ray [facility]ral Jun 23, 2023 09:00 AM VA-TOBACCO FORMER USER [place] Tobacco Use History This section includes a history of the smoking, or tobacco-related health factors, that were collected on or before the date of the Encounter. The data comes from the [place] facility where the Encounter took place. Date/Time Smoking Status/Tobacco Use Comment F acility Jun 23, 2023 09:00 AM VA-TOBACCO QUIT 15 YRS OR MORE [place] May 01, 2022 01:30 PM VA-TOBACCO FORMER USER [place] May 01, 2022 01:30 PM VA-TOBACCO QUIT 15 YRS OR MORE [place] Apr 15, 2021 03:00 PM VA-TOBACCO FORMER USER [place] Apr 15, 2021 03:00 PM VA-TOBACCO QUIT 15 YRS OR MORE [place] Oct 20, 2018 12:53 PM VA-TOBACCO FORMER USER [place] Oct 20, 2018 12:53 PM VA-TOBACCO QUIT 15 YRS OR MORE [place] Jul 03, 2017 10:33 AM QUIT TOBACCO USE > 7 YEARS AGO quit 25yrs ago [place] February 13, 2016 08:46 AM LIFETIME NON-TOBACCO USER [place] Advance Directives: All historical and current Section [...] DIRECTIVE CHAPINCITO DEE [facility] Encounter Notes: All [...] Mar 21, 2024 09:30 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 Problem list and medications reviewed. Last Labs: [...] 5. Paraesthesia of lower extremity (SNOMED CT [id number]) previously on gabapentin recently with objective signs of dminished circulation to LEFT foot only initial screen for metabolic/nutritional causes of neuropathy unrevealing No show to neurology NCS, Summer 2020 No show to Vascular consult, Summer 2020 6. status post appendectomy 7. Diverticular disease normal colonoscopy August, 8. Osteoarthritis (SNOMED CT [id number]) C/S worst at C6-C7 09/06 mod OA Interphalamgeal joint right thumb 09/06 9. Generalized anxiety disorder 10. Epilepsy [facility] [id number], CELINA Link OV 12-05-15 11. Essential hypertension [facility] [id number] 2511, CELINA Link OV 12-05-15 12. Atypical chest pain [facility] [id number] [id number], CELINA Link OV 12-05-15 02/13/16 EKG NSR 12/30/17 EKG NSR PHYSICAL EXAMINATION/DIRECTED EXAM: BP:103/65 (03/21/2024 09:53) Resp:20 (03/21/2024 09:53) Temp:96.7 F [35.9 C] (03/21/2024 09:53) Pulse:85 (03/21/2024 09:53) WEIGHT 03/21/2024 09:53 186(84.37)[27] 01/22/2024 15:44 184(83.46)[26] 12/22/2023 10:12 176(79.83)[25] Agitated. ASSESSMENT & PLAN: 79 year old MALE SERVICE CONNECTED % - [address] [place] presents for follow-up. Majority of visit is [...] and medication list. Upcoming Appointments: 06/03/2024 12:45 COM CARE-OPHTHALMOLOGY 01/02/2025 10:00 CWM/NO/OPTOMETRY/MERHAR Med Reconciliation: Active [...] MD PHYSICIAN Signed: 03/21/2024 10:16 NOLAN VERDUZCO [place]
--- OUTSIDE RECORDS SUMMARY | 2024-09-07 15:27 | XMS_ITS | Encounter Summary ---
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 Address [address] [place] [id number] Care Team Providers Care Senior Materials Analyst Name Role Phone ROWENA ROY Primary Care [...] to Policy Segal [facility] ([facility] MEDIC[facility] ADVANTAGE [place] IN[place] - [place] Sep 21, 2023 [id number] [phone] GENET [facility]UGAN S [facility] ([facility]NR) MEDICARE ADVANTAGE [facility] ([facility]) Sep 21, 2023 [id number] [phone] DUGAN,GENET S PATIENT HUSKY MEDICAID HUSKY PLAN May 22, 2022 MEDICAI D [id number] MARVIN DUGANI S PATIENT MEDICARE ([facility]) MEDICARE (M) PART B May 22, 2022 PART B [id number] DUGAN,GENET S PATIENT MEDICARE (WN) MEDICARE (M) PART A Feb 19, 2009 PART A [id number] [id number] [phone] DUGAN,GENET S PATIENT MEDICARE PART D (WNR) MEDICARE (M) PART D Jul 22, 2022 PART D [id number] [phone] GENET DUGAN S PATIENT [facility] (WNR) MEDICARE ADVANTAGE [facility] (WNR) Sep 21, 2022 [id number] [phone] GENET DUGAN S PATIENT [facility] (WNR) MEDICARE ADVANTAGE [facility] (WNR) Sep 21, 2022 [id number] GENET DUGAN PATIENT Selected Encounter This [...] 18, 2024 09:30 AM AM[place]ATORY [place] [facility] Mar 21, 2024 09:30 AM AMBULATORY [place] [facility] Apr 07, 2024 08:30 AM AMBULATORY [place]ICINE [place] [facility] Apr 15, 2024 02:30 PM AMBULATORY - [place]ICINE [place] [facility] Apr 27, 2024 10:00 AM AMBULATORY - [place]ICINE [place] [facility] May 13, 2024 11:00 AM AMBULATORY [place]ICINE [place] [facility] May 31, 2024 10:00 AM AMBULATORY [place]ICINE [place] [facility] Jun 03, 2024 12:45 PM AMBULATORY - MEDICINE [place] [facility] Jun 21, 2024 09:00 AM AMBULATORY - MEDICINE [place] [facility] Aug 09, 2024 09:00 AM AMBULATORY - MEDICINE [place] [facility] Aug 16, 2024 12:00 PM AMBULATORY - NONE [facility] [place] [facility] Aug 22, 2024 11:20 AM AMBULATORY - MEDICINE [place] [facility] [place] [facility] Aug 24, 2024 11:00 AM AMBULATORY - MEDICINE [facility] Sep 01, 2024 11:00 AM AMBULATORY - NONE [place] [facility] [place] [facility] Sep 07, 2024 03:00 PM AMBULATORY - [facility]ICINE [facility] Active, Pending, and Scheduled Orders [...] PANEL URINE (RANDOM) SP [facility] Mar 19, 2024 12:00 AM Laboratory - Chemistry Order VITAMIN B12 BLOOD (SST-SERUM) [facility] Mar 19, 2024 12:00 AM Laboratory - Chemistry Order FOLATE BLOOD (SST-SERUM) [facility] Mar 19, 2024 12:00 AM Laboratory - Chemistry Order VITAMIN D 25-OH (Therapy monitor) BLOOD (SST-SERUM) [facility] [place] [facility] Mar 19, 2024 12:00 AM Laboratory - Chemistry Order BASIC METABOLIC PANEL (fasting) BLOOD (SST-SERUM) [facility] Mar 19, 2024 12:00 AM Laboratory - Chemistry Order LIPID PANEL FASTING BLOOD (SST-SERUM) [facility] Mar 19, 2024 12:00 AM Laboratory - Chemistry Order HEMOGLOBIN A1C PANEL BLOOD (LAV-BLOOD) [facility] Mar 19, 2024 12:00 AM Laboratory - Chemistry Order LIVER FUNCTION BLOOD (SST-SERUM) [facility] Mar 19, 2024 12:00 AM Laboratory - Chemistry Order CBC AND DIFF (AUTO) BLOOD (LAV-BLOOD) [facility] Mar 19, 2024 12:00 AM Laboratory - Chemistry Order TSH BLOOD (SST-SERUM) [facility] Mar 19, 2024 12:00 AM Laboratory - Chemistry Order PSA BLOOD (SST-SERUM) [facility] Advance Directives: All historical and current [...] required. Electronically Filed: 03/14/2024 by: ADRIANNE HYDE [facility]
--- OUTSIDE RECORDS SUMMARY | 2024-09-07 15:27 | XMS_ITS | Encounter Summary ---
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 Organization [place] Address [address] [place] [address] Care Team Providers Care Grading Clerk Name Role Phone ROWENA ROY Primary [...] Segal's Name Patient's Relationship to Policy Segal [facility] ([facility]) MEDIC[facility] ADVANTAGE [place] - [place] Sep 21, 2023 [id number] [phone] GENET DUGAN S [facility]) MEDIC[facility] ADVANTAGE [facility] ([facility]) Sep 21, 2023 [id number] [phone] DUGAN,GENET S PATIENT H[place] MEDICAID HUSKY PLAN May 22, 2022 MEDICAI D [id number] MARVIN DUGANI S PATIENT MEDICARE (WN) MEDICARE (M) PART B May 22, 2022 PART B [id number] DUGAN,GENET S PATIENT MEDICARE (WNR) MEDICARE (M) PART A Feb 19, 2009 PART A [id number] DUGAN,GENET S PATIENT MEDICARE PART D (WNR) MEDICARE (M) PART D Jul 22, 2022 PART D [id number] GENET DUGAN PATIENT [facility] (WNR) MEDICARE ADVANTAGE [facility] (WNR) Sep 21, 2022 [id number] GENET DUGAN PATIENT [facility] MCR (WNR) MEDICARE ADVANTAGE [facility] (WNR) Sep 21, 2022 [id number] GENET DUGAN PATIENT Selected Encounter This section [...] 07, 2024 08:30 AM AMBULATORY [place] [facility] Apr 15, 2024 02:30 PM AMBULATORY [place]IC[place] [facility] Apr 27, 2024 10:00 AM AMBULATORY - [place]ICINE [place] [facility] May 13, 2024 11:00 AM AMBULATORY - MEDICINE [place] [facility] May 31, 2024 10:00 AM AMBULATORY - MEDICINE [place] [facility] Jun 03, 2024 12:45 PM AMBULATORY - [place]ICINE [place] [facility] Jun 21, 2024 09:00 AM AMBULATORY - MEDICINE [place] [facility] Aug 09, 2024 09:00 AM AMBULATORY - [place]ICINE [place] [facility] Aug 16, 2024 12:00 PM AMBULATORY - NONE [place] [facility] [place] [facility] Aug 22, 2024 11:20 AM AMBULATORY - MEDICINE [place] [facility] [facility] Aug 24, 2024 11:00 AM AMBULATORY - MEDICINE [facility] [place] Sep 01, 2024 11:00 AM AMBULATORY - NONE [place] [facility] Sep 07, 2024 03:00 PM AMBULATORY - [place] [facility] Active, Pending, and Scheduled Orders This section includes a listing of several types of active, pending, and scheduled orders, including clinic medications orders, diagnostic test orders, procedure orders and consult orders; where the start date of the order is 45 days before the date of the Encounter or 45 days after the date of theEncounter. The data comes from all [place] treatment facilities. Test Date/Time Test Type Test Details Facility Name Mar 19, 2024 12:00 AM Laboratory - Chemistry Order MICROALBUMIN CREATININE RATIO PANEL URINE (RANDOM) [facility] Mar 19, 2024 12:00 AM Laboratory - Chemistry Order VITAMIN B12 BLOOD (SST-SERUM) [facility] Mar 19, 2024 12:00 AM Laboratory - Chemistry Order VITAMIN D 25-OH (Therapy monitor) BLOOD (SST-SERUM) [facility] Mar 19, 2024 12:00 AM Laboratory - Chemistry Order FOLATE BLOOD (SST-SERUM) [facility] Mar 19, 2024 12:00 AM Laboratory - Chemistry Order BASIC METABOLIC PANEL (fasting) BLOOD (SST-SERUM) [facility] Mar 19, 2024 12:00 AM Laboratory - Chemistry Order LIPID PANEL FASTING BLOOD (SST-SERUM) [facility] CN[facility]L [facility] Mar 19, 2024 12:00 AM Laboratory - Chemistry Order LIVER FUNCTION BLOOD (SST-SERUM) [facility] Mar 19, 2024 12:00 AM Laboratory - Chemistry Order HEMOGLOBIN A1C PANEL BLOOD (LAV-BLOOD) [facility] Mar 19, 2024 12:00 AM Laboratory - Chemistry Order CBC AND DIFF (AUTO) BLOOD (LAV-BLOOD) [facility] Mar 19, 2024 12:00 AM Laboratory - Chemistry Order TSH BLOOD (SST-SERUM) [facility] [place] [facility] Mar 19, 2024 12:00 AM Laboratory - Chemistry Order PSA BLOOD (SST-SERUM) [facility] Vital Signs: All taken on the encounter date This section contains inpatient and outpatient Vital Signs collected on the date of the Encounter. Date/Time Temperature Pulse Blood Pressure Respiratory Rate SP02 Pain Height Weight Body Mass Index Source Mar 21, 2024 09:53 AM 96.7 85 103/65 20 96 0 70 186 27 [facility] Advance Directives: All historical and [...] 2024 12:00 PM NONVA NOTE: LOCAL TITLE: [facility] COORD PLAN STANDARD TITLE: NONVA NOTE DATE OF NOTE: MAR 21, 2024@12:00 ENTRY DATE: MAR 21, 2024@12:00:58 AUTHOR: IKE BRODY COSIGNER: URGENCY: STATUS: COMPLETED Emergency Notification Intake Date Presenting to the Facility: Feb Method of Contact: Notified from ECR worklist Notification ID: [id number] [facility] Referral #: [facility] Name: Hospital: [facility] Address: City: [place] State: [place] Zip Code: Phone : [facility] Facility Point of Contact: Name: Phone: Chief complaint: Unable to urinate Primary Diagnosis: Disposition Unknown at time of intake note entry /mariana/ IKE MCINTYRE Signed: 03/21/2024 12:02 Receipt Acknowledged By: 03/31/2024 16:47 /es/ NOLAN VERDUZCO MD PHYSICIAN 03/21/2024 12:54 /mariana/ WAGNER MOORE,RN-BC REGISTERED NURSE (RN) IKE BRODY [place]
--- OUTSIDE RECORDS SUMMARY | 2024-09-07 15:27 | XMS_ITS | Encounter Summary ---
Author Name [facility] [place] Organization [place] Address [address] [place] [id number] Care Team Providers Care Assisted Living Nursing Director Name Role Phone ROWENA ROY Primary Care [...] Segal's Name Patient's Relationship to Policy Segal [facility]) MEDICARE ADVANTAGE [place] INDIV IDUAL - [place] Sep 21, 2023 [id number] [phone] GENET DUGAN S PATIENT [facility] ([facility]) MEDICARE ADVANTAGE [facility] ([facility]) Sep 21, 2023 [id number] [phone] MARVIN DUGANI S PATIENT H[place]KY MEDICAID HUSKY PLAN May 22, 2022 MEDICAI D [id number] MARVIN DUGANI S PATIENT MEDICARE ([facility]) MEDICARE (M) PART B May 22, 2022 PART B [id number] DUGAN,GENET S PATIENT MEDICARE ([facility]) MEDICARE (M) PART A Feb 19, 2009 PART A [id number] [phone] DUGAN,GENET S PATIENT MEDICARE PART D (WNR) MEDICARE (M) PART D Jul 22, 2022 PART D [id number] [phone] GENET DUGAN PATIENT [facility] (WNR) MEDICARE ADVANTAGE [facility] (WNR) Sep 21, 2022 [id number] [phone] GENET DUGAN PATIENT [facility] (WNR) MEDICARE ADVANTAGE [facility] (WNR) Sep 21, 2022 [id number] GENET DUGAN PATIENT Selected Encounter This [...] 18, 2024 09:30 AM AMBULATORY - MEDICINE [facility] [place] [facility] Mar 21, 2024 09:30 AM AMBULATORY - MEDICINE [place] [facility] [place] [facility] Apr 07, 2024 08:30 AM AMBULATORY - MEDICINE [place] [facility] [place] [facility] Apr 15, 2024 02:30 PM AMBULATORY - MEDICINE [place] [facility] [place] [facility] Apr 27, 2024 10:00 AM AMBULATORY - MEDICINE [place] [facility] [place] [facility] May 13, 2024 11:00 AM AMBULATORY - MEDICINE [place] [facility] [place] [facility] May 31, 2024 10:00 AM AMBULATORY - MEDICINE [place] [facility] [place] [facility] Jun 03, 2024 12:45 PM AMBULATORY - MEDICINE [place] [facility] [place] [facility] Jun 21, 2024 09:00 AM AMBULATORY - MEDICINE [place] [facility] [place] [facility] Aug 09, 2024 09:00 AM AMBULATORY - MEDICINE [place] [facility] [place] [facility] Aug 16, 2024 12:00 PM AMBULATORY - NONE [facility] [place] [facility] Aug 22, 2024 11:20 AM AMBULATORY - MEDICINE [facility] [place] [facility] Aug 24, 2024 11:00 AM AMBULATORY - MEDICINE DARLYN [facility]AP[facility] Sep 01, 2024 11:00 AM AMBULATORY - NONE [facility] [place] [facility] Sep 07, 2024 03:00 PM [facility] Active, Pending, and Scheduled Orders This [...] data comes from all [place] treatment facilities. Test Date/Time Test Type Test Details Facility Name Mar 19, 2024 12:00 AM Laboratory - Chemistry Order VITAMIN B12 BLOOD (SST-SERUM) [facility] Mar 19, 2024 12:00 AM Laboratory - Chemistry Order MICROALBUMIN CREATININE RATIO PANEL URINE (RANDOM) [facility] Mar 19, 2024 12:00 AM Laboratory - Chemistry Order FOLATE BLOOD (SST-SERUM) [facility] Mar 19, 2024 12:00 AM Laboratory - Chemistry Order VITAMIN D 25-OH (Therapy monitor) BLOOD (SST-SERUM) [facility] Mar 19, 2024 12:00 AM Laboratory - Chemistry Order BASIC METABOLIC PANEL (fasting) BLOOD (SST-SERUM) [facility] Mar 19, 2024 12:00 AM Laboratory - Chemistry Order LIPID PANEL FASTING BLOOD (SST-SERUM) [facility] Mar 19, 2024 12:00 AM Laboratory - Chemistry Order LIVER FUNCTION BLOOD (SST-SERUM) [facility] Mar 19, 2024 12:00 AM Laboratory - Chemistry Order CBC AND DIFF (AUTO) BLOOD (LAV-BLOOD) [facility] Mar 19, 2024 12:00 AM Laboratory - Chemistry Order HEMOGLOBIN A1C PANEL BLOOD (LAV-BLOOD) [facility] Mar 19, 2024 12:00 AM Laboratory - Chemistry Order TSH BLOOD (SST-SERUM) [facility] Mar 19, 2024 12:00 AM Laboratory - Chemistry Order PSA BLOOD (SST-SERUM) [facility] Advance Directives: All historical and current Section [...] Source Apr 04, 2024 ADVANCE DIRECTIVE [facility] Encounter Notes: All associated encounter notes This section contains the clinical notes associated to the Encounter. Date/Time Encounter Note(s) Provider Source Mar 16, 2024 09:29 AM ADDENDUM: LOCAL TITLE: Addendum STANDARD TITLE: ADDENDUM DATE OF NOTE: MAR 16, 2024@09:29:21 ENTRY DATE: MAR 16, 2024@09:29:21 AUTHOR: ODALIS COWART EXP COSIGNER: URGENCY: STATUS: COMPLETED DERM FARMWORKER CRANBERRY - Please notify that the TeleDerm images and report reveal benign (non-cancerous) lesions called seborrheic keratoses. No further intervention is required. /mariana/ ODALIS COWART DNP, PROFILE GRINDER TECHNICIAN-C NURSE PRACTITIONER Signed: 03/16/2024 09:29 Receipt Acknowledged By: 03/16/2024 12:35 /mariana/ KUSH REED LPN FARMWORKER CRANBERRY --- Original Document --- 03/14/24 PATIENT NOTIFICATION TELEHEALTH RESULTS: Provider, please note dx and treatment recommendations for this patient imaged on 03/10/2024 Requesting Provider is responsible for recommended treatment or procedures and patient notification within 7 to 14 days. Thank you REMOTE RESULTS KETTY Document from: [facility] Associated on: Mar 14, 2024@12:31:58 LOCAL [...] By: 03/16/2024 09:29 /mariana/ ODALIS COWART DNP, PROFILE GRINDER TECHNICIAN-C NURSE PRACTITIONER * AWAITING SIGNATURE * NOLAN VERDUZCO 03/14/2024 14:01 /mariana/ OUMAR MOOREN,RN-BC REGISTERED NURSE (RN) ODALIS COWART [place] Mar 14, 2024 12:37 PM TELEHEALTH NOTE: [...] Thank you REMOTE RESULTS KETTY Document from: [facility] Associated on: Mar 14, 2024@12:31:58 LOCAL [...] Signed: 03/14/2024 12:31 END OF REMOTE RESULTS /viky [place] TELEHEALTH CLINICAL TECHNIAN (TCT) Signed: 03/14/2024 13:01 Receipt Acknowledged By: 03/16/2024 09:29 /es/ ODALIS COWART DNP, PROFILE GRINDER TECHNICIAN-C NURSE PRACTITIONER 09/06/2024 10:57 /es/ NOLAN VERDUZCO MD PHYSICIAN 03/14/2024 14:01 /es/ OUMAR MOOREN,RN-BC REGISTERED NURSE (RN) 03/16/2024 ADDENDUM STATUS: COMPLETED DERM FARMWORKER CRANBERRY - Please notify that the TeleDerm images and report reveal benign (non-cancerous) lesions called seborrheic keratoses. No further intervention is required. /mariana/ ODALIS COWART DNP, PROFILE GRINDER TECHNICIAN-C NURSE PRACTITIONER Signed: 03/16/2024 09:29 Receipt Acknowledged By: 03/16/2024 12:35 /mariana/ KUSH REED LPN LPN 03/16/2024 ADDENDUM STATUS: COMPLETED notified of telederm results. Non cancerous lesion with no treatment needeed. understood and has clinic contact information for any concerns. /viky REED LPN LPN Signed: 03/16/2024 12:36 NELL [place]ADA [place]
--- OUTSIDE RECORDS SUMMARY | 2024-09-07 15:27 | XMS_ITS ---
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 Organization [facility] Address [address] [place] [address] Care Team Providers Care Central Supply Technician Supervisor Name Role Phone ROWENA ROY Primary [...] Segal's Name Patient's Relationship to Policy Segal [facility] AD[place]ANT[facility] [place] INDIV IDUAL - [place] Sep 21, 2023 [id number] [phone] [facility]ET [facility]) [facility]IC[facility] ADVANTAGE [facility] ([facility]) Sep 21, 2023 [id number] [phone] MARVIN DUGANI S PATIENT [place]KY MEDICAID H[place]KY PLAN May 22, 2022 MEDICAI D [id number] GENET DUGAN S PATIENT MEDICARE ([facility]) MEDICARE (M) PART B May 22, 2022 PART B [id number] MARVIN DUGANI S PATIENT MEDICARE ([facility]) MEDICARE (M) PART A Feb 19, 2009 PART A [id number] [id number] DUGAN,GENET S PATIENT MEDICARE PART D (WNR) MEDICARE (M) PART D Jul 22, 2022 PART D [id number] [phone] GENET DUGAN S PATIENT [facility] (WNR) MEDICARE ADVANTAGE [facility] (WNR) Sep 21, 2022 [id number] GENET DUGAN S PATIENT [facility] (WNR) MEDICARE ADVANTAGE [facility] (WNR) Sep 21, 2022 [id number] GENET DUGAN PATIENT Selected Encounter This section [...] - MEDICINE [place] [facility] Apr 15, 2024 02:30 PM AMBULATORY - MEDICINE [place] [facility] Apr 27, 2024 10:00 AM AMBULATORY - MEDICINE [place] [facility] May 13, 2024 11:00 AM AMBULATORY - MEDICINE [place] [facility] May 31, 2024 10:00 AM AMBULATORY - MEDICINE [place] [facility] Jun 03, 2024 12:45 PM AMBULATORY - MEDICINE [place] [facility] Jun 21, 2024 09:00 AM AMBULATORY - MEDICINE [place] [facility] Aug 09, 2024 09:00 AM AMBULATORY - MEDICINE [place] [facility] Aug 16, 2024 12:00 PM AMBULATORY - NONE [facility] [place] [facility] Aug 22, 2024 11:20 AM AMBULATORY - MEDICINE [place] [facility] Aug 24, 2024 11:00 AM AMBULATORY - MEDICINE DARLYN [facility] Sep 01, 2024 11:00 AM AMBULATORY - NONE [facility] Sep 07, 2024 03:00 PM AMBULATORY - MEDICINE [facility] Active, Pending, and Scheduled Orders This [...] MICROALBUMIN CREATININE RATIO PANEL URINE (RANDOM) [facility] Mar 19, 2024 12:00 AM Laboratory - Chemistry Order FOLATE BLOOD (SST-SERUM) [facility] Mar 19, 2024 12:00 AM Laboratory - Chemistry Order VITAMIN B12 BLOOD (SST-SERUM) [facility] Mar 19, 2024 12:00 AM Laboratory - Chemistry Order VITAMIN D 25-OH (Therapy monitor) BLOOD (SST-SERUM) [facility] Mar 19, 2024 12:00 AM Laboratory - Chemistry Order BASIC METABOLIC PANEL (fasting) BLOOD (SST-SERUM) [facility] Mar 19, 2024 12:00 AM Laboratory - Chemistry Order LIPID PANEL FASTING BLOOD (SST-SERUM) [facility] Mar 19, 2024 12:00 AM Laboratory - Chemistry Order LIVER FUNCTION BLOOD (SST-SERUM) [facility] Mar 19, 2024 12:00 AM Laboratory - Chemistry Order CBC AND DIFF (AUTO) BLOOD (LAV-BLOOD) [facility] Mar 19, 2024 12:00 AM Laboratory - Chemistry Order HEMOGLOBIN A1C PANEL BLOOD (LAV-BLOOD) [facility] Mar 19, 2024 12:00 AM Laboratory - Chemistry Order TSH BLOOD (SST-SERUM) SP [facility] Mar [...] or Advance Directive/AOD Flowsheet is located in [employer]. /mariana/ CHAPINCITO MCINTYRE Signed: 04/04/2024 13:54 CHAPINCITO DEE BROWNS Apr 04, 2024 01:54 PM CLINICAL WARNING: [...] Through [ ] At end of care /viky MCINTYRE Signed: 04/04/2024 13:57 CHAPINCITO DEE BROWNS
--- OUTSIDE RECORDS SUMMARY | 2024-09-07 15:27 | XMS_ITS | Encounter Summary ---
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 Address [address] [place] [id number] Care Team Providers Care Metal Casting Trades Worker Name Role Phone ROWENA ROY Primary Care [...] Name Patient's Relationship to Policy Segal [facility] ([facility]) MEDICARE ADVANTAGE [place] INDIV IDUAL - [place] Sep 21, 2023 [id number] [phone] [facility] MEDIC[facility] ADVANTAGE [facility] ([facility]) Sep 21, 2023 [id number] [phone] MARVIN DUGANI S PATIENT [place] MEDICAID H[place]KY PLAN May 22, 2022 MEDICAI D [id number] GENET DUGAN S PATIENT MEDICARE ([facility]) MEDICARE () PART B May 22, 2022 PART B [id number] GENET DUGAN S PATIENT MEDICARE (WNR) MEDICARE (M) PART A Feb 19, 2009 PART A [id number] GENET DUGAN S PATIENT MEDICARE PART D (WNR) MEDICARE (M) PART D Jul 22, 2022 PART D [id number] [phone] GENET DUGAN S PATIENT [facility] (WNR) MEDICARE ADVANTAGE [facility] (WNR) Sep 21, 2022 [id number] [phone] GENET DUGAN S PATIENT [facility] (WNR) MEDICARE ADVANTAGE [facility] (WNR) Sep 21, 2022 [id number] GENET DUGAN S PATIENT Selected Encounter This section includes the information on record at PA for the Encounter. Date/Time Encounter Type Encounter Description Reason Provider Source Mar 21, 2024 12:46 PM QNHP OL DIG ASSMT&MGMT 5-10 CLINICAL PHARMACY ICD-10-CM Z51.81 Encounter for therapeutic drug level monitoring RICK DAVIS [facility] Encounter Template Text not used by PA Assessments - Encounter Diagnoses This section includes the primary and secondary diagnoses documented for the Encounter. Date/Time Primary/Secondary Diagnosis Diagnosis Name Provider Source Mar 21, 2024 12:46 PM PRIMARY Encounter for therapeutic drug level monitoring ALBIN DAVIS [facility] Plan of Treatment: Future Appointments (+ 6 months) and Future Tests (+/- 45 days) The Plan of Treatment section includes future care activities for the patient from all [facility]. This section includes future appointments and [...] 07, 2024 08:30 AM AMBULATORY - MEDICINE [place] [facility] Apr 15, 2024 02:30 PM AMBULATORY - MEDICINE [place] [facility] Apr 27, 2024 10:00 AM AMBULATORY - MEDICINE [place] [facility] [place] [place] [facility] May 13, 2024 11:00 AM AMBULATORY - MEDICINE [place] [facility] May 31, 2024 10:00 AM AMBULATORY - MEDICINE [place] [facility] [place] [place] [facility] Jun 03, 2024 12:45 PM AMBULATORY - MEDICINE [place] [facility] [place] [facility] Jun 21, 2024 09:00 AM AMBULATORY - MEDICINE [place] [facility] [place] [place] [facility] Aug 09, 2024 09:00 AM AMBULATORY - MEDICINE [facility] [place] [place] [facility] Aug 16, 2024 12:00 PM AMBULATORY - NONE [facility] [place] [facility] Aug 22, 2024 11:20 AM AMBULATORY - MEDICINE [place] [facility] [place] [place] [facility] Aug 24, 2024 11:00 AM AMBULATORY - MEDICINE [place] Sep 01, 2024 11:00 AM AMBULATORY - NONE [facility] [place] [facility] Sep 07, 2024 03:00 PM AMBULATORY - MEDICINE [facility] [place] [place] [facility] Active, Pending, and Scheduled Orders This section includes a listing of several types of active, pending, and scheduled orders, including clinic medications orders, diagnostic test orders, procedure orders and consult orders; where the start date of the order is 45 days before the date of the Encounter or 45 days after the date of theEncounter. The data comes from all [place] treatment facilities. Test Date/Time Test Type Test Details Facility Name Mar 19, 2024 12:00 AM Laboratory - Chemistry Order VITAMIN B12 BLOOD (SST-SERUM) [facility] [place] [facility] Mar 19, 2024 12:00 AM Laboratory - Chemistry Order MICROALBUMIN CREATININE RATIO PANEL URINE (RANDOM) [facility] [place] [facility] Mar 19, 2024 12:00 AM Laboratory - Chemistry Order FOLATE BLOOD (SST-SERUM) [facility] [place] [facility] Mar 19, 2024 12:00 AM Laboratory - Chemistry Order VITAMIN D 25-OH (Therapy monitor) BLOOD (SST-SERUM) [facility] [place] [facility] Mar 19, 2024 12:00 AM Laboratory - Chemistry Order BASIC METABOLIC PANEL (fasting) BLOOD (SST-SERUM) [facility] [place] [facility] Mar 19, 2024 12:00 AM Laboratory - Chemistry Order LIPID PANEL FASTING BLOOD (SST-SERUM) [facility] [place] [facility] Mar 19, 2024 12:00 AM Laboratory - Chemistry Order LIVER FUNCTION BLOOD (SST-SERUM) [facility] [place] [facility] Mar 19, 2024 12:00 AM Laboratory - Chemistry Order CBC AND DIFF (AUTO) BLOOD (LAV-BLOOD) [facility] Mar 19, 2024 12:00 AM Laboratory - Chemistry Order HEMOGLOBIN A1C PANEL BLOOD (LAV-BLOOD) [facility] Mar 19, 2024 12:00 AM Laboratory - Chemistry Order TSH BLOOD (SST-SERUM) [facility] Mar 19, 2024 12:00 AM Laboratory - Chemistry Order PSA BLOOD (SST-SERUM) [facility] Social History: Smoking Status (Most current) and Tobacco Use (All prior to encounter date) This section includes the most current, and the historical, smoking and tobacco- related health factors from the PA facility where the Encounter took place. Current Smoking Status This section includes the most current smoking, or tobacco-related health factor, from the PA facility where the Encounter took place. Date/Time Current Smoking Status Comment Ray ity Jun 23, 2023 09:00 AM VA-TOBACCO FORMER USER [facility] Tobacco Use History This section includes a history of the smoking, or tobacco-related health factors, that were collected on or before the date of the Encounter. The data comes from the PA facility where the Encounter took place. Date/Time Smoking Status/Tobacco Use Comment F acility Jun 23, 2023 09:00 AM VA-TOBACCO QUIT 15 YRS OR MORE [facility] May 01, 2022 01:30 PM VA-TOBACCO FORMER USER [facility] May 01, 2022 01:30 PM VA-TOBACCO QUIT 15 YRS OR MORE [facility] Apr 15, 2021 03:00 PM VA-TOBACCO FORMER USER [facility] Apr 15, 2021 03:00 PM VA-TOBACCO QUIT 15 YRS OR MORE [facility] Oct 20, 2018 12:53 PM VA-TOBACCO FORMER USER [facility] Oct 20, 2018 12:53 PM VA-TOBACCO QUIT 15 YRS OR MORE [facility] Jul 03, 2017 10:33 AM QUIT TOBACCO USE > 7 YEARS AGO quit 25yrs ago [facility] February 13, 2016 08:46 AM LIFETIME NON-TOBACCO USER [facility] Advance Directives: All historical and current Section [...] for treatment of dry eye disease. VA c python developer and/or ordering provider agree that this patient is being switched by pharmacy conversion to CYCLOSPORINE OPHTHALMIC EMULSION,OPH (RESTASIS) from LIFITEGRAST (XIIDRA). This patient will receive a letter in the mail informing them of this conversion. /mariana/ ALBIN DAVIS CLINICAL LINE LEAD Signed: 03/21/2024 12:46 Receipt Acknowledged By: 03/21/2024 13:17 /mariana/ CAROL HOLLOWAY OD Mold Maintenance Technician ALBIN DAVIS
--- OUTSIDE RECORDS SUMMARY | 2024-09-07 15:28 | XMS_ITS | Encounter Summary ---
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 Address [address] [place] [address] Care Team Providers Care Care Tech Name Role Phone ROWENA ROY Primary [...] Relationship to Policy Segal [facility] ([facility]) MEDICARE ADVANTAGE [place] INDIV IDUAL - [place] Sep 21, 2023 [id number] [phone] GENET DUGAN S [facility]) MEDICARE ADVANTAGE [facility] ([facility]) Sep 21, 2023 [id number] A [id number] [phone] DUGAN,GENET S PATIENT HUSKY MEDICAID HUSKY PLAN May 22, 2022 MEDICAI D [id number] MARVIN DUGANI S PATIENT MEDICARE (WN) MEDICARE (M) PART B May 22, 2022 PART B [id number] DUGAN,GENET S PATIENT MEDICARE (WNR) MEDICARE (M) PART A Feb 19, 2009 PART A [id number] DUGAN,GENET S PATIENT MEDICARE PART D (WNR) MEDICARE (M) PART D Jul 22, 2022 PART D [id number] [phone] GENET DUGAN PATIENT [facility] (WNR) MEDICARE ADVANTAGE [facility] (WNR) Sep 21, 2022 [id number] GENET DUGAN PATIENT [facility] MCR (WNR) MEDICARE ADVANTAGE [facility] (WNR) Sep 21, 2022 [id number] GENET DUGAN PATIENT Selected Encounter This [...] - MEDICINE [place] [facility] May 13, 2024 11:00 AM AMBULATORY - MEDICINE [place] [facility] May 31, 2024 10:00 AM AMBULATORY - [place]IC[place] [facility] Jun 03, 2024 12:45 PM AMBULATORY - MEDICINE [place] [facility] Jun 21, 2024 09:00 AM AMBULATORY - MEDICINE [place] [facility] Aug 09, 2024 09:00 AM AMBULATORY - MEDICINE [place] [facility] Aug 16, 2024 12:00 PM AMBULATORY - NONE [place] [facility] [place] [facility] Aug 22, 2024 11:20 AM AMBULATORY - MEDICINE [place] [facility] Aug 24, 2024 11:00 AM [facility] Sep 01, 2024 11:00 AM AMBULATORY - NONE [place] [facility] [place] [facility] Sep 07, 2024 03:00 PM AMBULATORY - MEDICINE [employer] Active, Pending, and Scheduled [...] - Chemistry Order VITAMIN B12 BLOOD (SST-SERUM) [facility] Mar 19, 2024 12:00 AM Laboratory - Chemistry Order MICROALBUMIN CREATININE RATIO PANEL URINE (RANDOM) [facility] Mar 19, 2024 12:00 AM Laboratory - Chemistry Order FOLATE BLOOD (SST-SERUM) [facility] Mar 19, 2024 12:00 AM Laboratory - Chemistry Order VITAMIN D 25-OH (Therapy monitor) BLOOD (SST-SERUM) [facility] Mar 19, 2024 12:00 AM Laboratory - Chemistry Order BASIC METABOLIC PANEL (fasting) BLOOD (SST-SERUM) [facility] Mar 19, 2024 12:00 AM Laboratory - Chemistry Order LIPID PANEL FASTING BLOOD (SST-SERUM) [facility] Mar 19, 2024 12:00 AM Laboratory - Chemistry Order LIVER FUNCTION BLOOD (SST-SERUM) [facility] Mar 19, 2024 12:00 AM Laboratory - Chemistry Order CBC AND DIFF (AUTO) BLOOD (LAV-BLOOD) [facility] Mar 19, 2024 12:00 AM Laboratory - Chemistry Order HEMOGLOBIN A1C PANEL BLOOD (LAV-BLOOD) [facility] Mar 19, 2024 12:00 AM Laboratory - Chemistry Order TSH BLOOD (SST-SERUM) [facility] Mar 19, 2024 12:00 AM Laboratory - Chemistry Order PSA BLOOD (SST-SERUM) [facility] Advance Directives: All historical and [...] Apr 19, 2024 03:22 PM NONVA NOTE: LOCAL TITLE: [facility] CARE COORD PLAN STANDARD TITLE: NONVA NOTE DATE OF NOTE: APR 19, 2024@15:22 ENTRY DATE: APR 19, 2024@15:22:40 AUTHOR: IKE BRODY EXP COSIGNER: URGENCY: STATUS: COMPLETED Emergency Notification Intake Date Presenting to the Facility: Feb Method of Contact: Notified from ECR worklist Notification ID: [id number] [facility] Referral #: [id number] [facility] Name: Hospital: [facility] Address: City: [place] State: [place] Zip Code: Phone : Community Facility Point of Contact: Name: Alfonzo Phone: Chief complaint: Urine Retention Primary Diagnosis: Disposition Discharged Date of discharge: Feb Discharge to Comment: ER Only /mariana/ IKE MCINTYRE Signed: 04/19/2024 15:24 Receipt Acknowledged By: 09/06/2024 11:11 /es/ NOLAN VERDUZCO MD PHYSICIAN 04/20/2024 11:39 /es/ SARAH YANEZ Registered Nurse Factory Lay Out Engineer 04/19/2024 15:29 /es/ OUMAR MOOREN,RN-BC REGISTERED NURSE (RN) IKE BRODY STAFFORD
--- OUTSIDE RECORDS SUMMARY | 2024-09-07 15:28 | XMS_ITS | Encounter Summary ---
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 Organization [place] Address [address] [place] [address] Care Team Providers Care Public Opinion Survey Taker Name Role Phone ROWENA ROY Primary Care [...] Name Patient's Relationship to Policy Segal [facility] ([facility]) MEDICARE ADVANTAGE [place] IN[place] - [place] Sep 21, 2023 [id number] [phone] GENET DUGAN S PATIENT [facility] ([facility]) MEDICARE ADVANTAGE [facility] ([facility]) Sep 21, 2023 [id number] [phone] DUGAN,GENET S PATIENT HUSKY MEDICAID H[place]KY PLAN May 22, 2022 MEDICAI D [id number] MARVIN DUGANI S PATIENT MEDICARE ([facility]) MEDICARE () PART B May 22, 2022 PART B [id number] MARVIN DUGANI S PATIENT MEDICARE ([facility]) MEDICARE () PART A Feb 19, 2009 PART A [id number] GENET DUGAN S PATIENT MEDICARE PART D ([facility]) MEDICARE () PART D Jul 22, 2022 PART D [id number] [phone] GENET DUGAN S PATIENT [facility] (WNR) MEDICARE ADVANTAGE [facility] (WNR) Sep 21, 2022 [id number] GENET DUGAN S PATIENT [facility] (WNR) MEDICARE ADVANTAGE MCR (WNR) Sep 21, 2022 [id number] [phone] GENET DUGAN PATIENT Selected Encounter This section [...]
--- OUTSIDE RECORDS SUMMARY | 2024-09-07 15:29 | XMS_ITS ---
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 Address [address] [place] [address] Care Team Providers Care Plastic Finisher Name Role Phone ROWENA ROY Primary Care [...] Segal's Name Patient's Relationship to Policy Segal [facility] (R) MEDIC[facility] ADVANTAGE [place] IN[place] - [place] Sep 21, 2023 [id number] A [id number] [phone] GENET DUGAN S [facility] ([facility]NR[facility] MEDIC[facility] ADVANTAGE [facility] ([facility]) Sep 21, 2023 [id number] [phone] DUGAN,GENET S PATIENT HUSKY MEDICAID HUSKY PLAN May 22, 2022 MEDICAI D [id number] MARVIN DUGANI S PATIENT MEDICARE (WN) MEDICARE (M) PART B May 22, 2022 PART B [id number] DUGAN,GENET S PATIENT MEDICARE (WNR) MEDICARE (M) PART A Feb 19, 2009 PART A [id number] [id number] [phone] DUGAN,GENET S PATIENT MEDICARE PART D (WNR) MEDICARE (M) PART D Jul 22, 2022 PART D [id number] [id number] [phone] GENET DUGAN PATIENT [facility] (WNR) MEDICARE ADVANTAGE [facility] (WNR) Sep 21, 2022 [id number] GENET DUGAN PATIENT [facility] MCR (WNR) MEDICARE ADVANTAGE [facility] (WNR) Sep 21, 2022 [id number] GENET DUGAN PATIENT Selected Encounter This section [...] 15, 2024 02:30 PM AMBULATORY - [place]ICINE [place] [facility] Apr 27, 2024 10:00 AM AMBULATORY - MEDICINE [place] [facility] May 13, 2024 11:00 AM AMBULATORY - MEDICINE [place] [facility] May 31, 2024 10:00 AM AMBULATORY - MEDICINE [place] [facility] Jun 03, 2024 12:45 PM AMBULATORY - MEDICINE [place] [facility] Jun 21, 2024 09:00 AM AMBULATORY - MEDICINE [place] [facility] Aug 09, 2024 09:00 AM AMBULATORY - MEDICINE [place] [facility] Aug 16, 2024 12:00 PM AMBULATORY - NONE [place] [facility] Aug 22, 2024 11:20 AM AMBULATORY - MEDICINE [place] [facility] Aug 24, 2024 11:00 AM AMBULATORY - MEDICINE [facility] Sep 01, 2024 11:00 AM AMBULATORY - NONE [place] [facility] Sep 07, 2024 03:00 PM AMBULATORY - MEDICINE [facility] NTRL WSN [facility] Active, Pending, and Scheduled Orders This [...] RATIO PANEL URINE (RANDOM) [facility] Mar 19, 2024 12:00 AM Laboratory - Chemistry Order VITAMIN B12 BLOOD (SST-SERUM) [facility] Mar 19, 2024 12:00 AM Laboratory - Chemistry Order VITAMIN D 25-OH (Therapy monitor) BLOOD (SST-SERUM) SP [facility] Mar 19, 2024 12:00 AM Laboratory - Chemistry Order FOLATE BLOOD (SST-SERUM) [facility] Mar 19, 2024 12:00 AM Laboratory - Chemistry Order BASIC METABOLIC PANEL (fasting) BLOOD (SST-SERUM) [facility] Mar 19, 2024 12:00 AM Laboratory - Chemistry Order LIPID PANEL FASTING BLOOD (SST-SERUM) [facility] Mar 19, 2024 12:00 AM Laboratory - Chemistry Order LIVER FUNCTION BLOOD (SST-SERUM) [facility] Mar 19, 2024 12:00 AM Laboratory - Chemistry Order HEMOGLOBIN A1C PANEL BLOOD (LAV-BLOOD) [facility] CNTRL W[facility] Mar 19, 2024 12:00 AM Laboratory - Chemistry Order CBC AND DIFF (AUTO) BLOOD (LAV-BLOOD) [facility] Mar 19, 2024 12:00 AM Laboratory - Chemistry Order TSH BLOOD (SST-SERUM) [facility] CN[facility]L [facility] Mar 19, 2024 12:00 AM Laboratory - Chemistry Order PSA BLOOD (SST-SERUM) SP [facility] Advance Directives: All historical and current Section Date Range: From patient's date of to the date document was created. This section includes ALL of a patient's completed or amended [place] Advance and Rescinded Directives. The entries below [...] REQUIRED Electronically Filed: 04/28/2024 by: PING SOLER [facility]
--- OUTSIDE RECORDS SUMMARY | 2024-09-07 15:29 | XMS_ITS | Encounter Summary ---
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 Organization Department [place] Address [address] [place] [address] Care Team Providers Care Channeling Machine Operator Name Role Phone ROWENA ROY Primary Care [...] Name Patient's Relationship to Policy Segal [facility] (R) MEDICARE ADVANTAGE [place] INDIV IDUAL - [place] Sep 21, 2023 [id number] A [id number] [phone] GENET DUGAN S [facility]IENT [facility]IC[facility] ADVANTAGE [facility]) Sep 21, 2023 [id number] A [id number] [phone] DUGAN,GENET S PATIENT HUSKY MEDICAID HUSKY PLAN May 22, 2022 MEDICAI D [id number] MARVIN DUGANI S PATIENT MEDICARE (WN) MEDICARE (M) PART B May 22, 2022 PART B [id number] [id number] [phone] DUGAN,GENET S PATIENT MEDICARE (WNR) MEDICARE (M) PART A Feb 19, 2009 PART A [id number] [id number] [phone] DUGAN,GENET S PATIENT MEDICARE PART D (WNR) MEDICARE (M) PART D Jul 22, 2022 PART D [id number] [phone] GENET DUGAN PATIENT [facility] (WNR) MEDICARE ADVANTAGE [facility] (WNR) Sep 21, 2022 [id number] GENET DUGAN PATIENT [facility] MCR (WNR) MEDICARE ADVANTAGE MCR (WNR) Sep 21, 2022 [id number] [phone] GENET DUGAN PATIENT Selected Encounter This section [...] 03, 2024 12:45 PM AMBULATORY - MEDICINE [place] [facility] Jun 21, 2024 09:00 AM AMBULATORY - MEDICINE [place] [facility] Aug 09, 2024 09:00 AM AMBULATORY - MEDICINE [place] [facility] Aug 16, 2024 12:00 PM AMBULATORY - NONE [place] [facility] Aug 22, 2024 11:20 AM AMBULATORY - MEDICINE [place] [facility] Aug 24, 2024 11:00 AM [facility] Sep 01, 2024 11:00 AM AMBULATORY - NONE [place] [facility] Sep 07, 2024 03:00 PM AMBULATORY - MEDICINE [facility]L [place] [facility] Advance Directives: All historical and current Section Date Range: From patient's date of to the date document was created. This section includes ALL of a patient's completed or amended [place] Advance and Rescinded Directives. The entries below indicate that a directive exists for the patient, but an actual copy is not included with this document. The data comes from all [place] facilities. Date Advance Directives Provider Source Apr [...] Filed: 06/27/2024 by: MG AYON CNTRL [facility]
--- OUTSIDE RECORDS SUMMARY | 2024-09-07 15:29 | XMS_ITS ---
Author Name [place] Organization [place] Address [address] [place] [address] Care Team Providers Care General Service Officer Name Role Phone ROWENA ROY Primary Care [...] to Policy Segal [facility]) MEDICARE ADVANTAGE IN INDIV IDUAL - [place] Sep 21, 2023 [id number] A [id number] [phone] GENET DUGAN S [facility] MEDICARE ADVANTAGE [facility] ([facility]) Sep 21, 2023 [id number] [phone] MARVIN DUGANI S PATIENT HUSKY MEDICAID HUSKY PLAN May 22, 2022 MEDICAI D [id number] MARVIN DUGANI S PATIENT MEDICARE ([facility]) MEDICARE (M) PART B May 22, 2022 PART B [id number] [id number] [phone] DUGAN,GENET S PATIENT MEDICARE ([facility]) MEDICARE (M) PART A Feb 19, 2009 PART A [id number] DUGAN,GENET S PATIENT MEDICARE PART D (WNR) MEDICARE (M) PART D Jul 22, 2022 PART D [id number] [phone] GENET DUGAN PATIENT [facility] (WNR) MEDICARE ADVANTAGE [facility] (WNR) Sep 21, 2022 [id number] GENET DUGAN PATIENT [facility] (WNR) MEDICARE ADVANTAGE MCR (WNR) Sep 21, 2022 [id number] GENET DUGAN PATIENT Selected Encounter This section includes the information on record at [place] for the Encounter. Date/Time Encounter Type Encounter Description Reason Pro vider Source Jun 07, 2024 10:31 AM Outpatient Encounter ADMIN PAT ACTIVTIES (MASNONCT) IHE Encounter Template Text not used by [place] Plan of Treatment: Future Appointments (+ 6 [...] 21, 2024 09:00 AM AMBULATORY - MEDICINE [place] [facility] Aug 09, 2024 09:00 AM AMBULATORY - MEDICINE [place] [facility] Aug 16, 2024 12:00 PM AMBULATORY - NONE [place] [facility] Aug 22, 2024 11:20 AM AMBULATORY - MEDICINE [place] [facility] Aug 24, 2024 11:00 AM AMBULATORY - MEDICINE [facility] Sep 01, 2024 11:00 AM AMBULATORY NONE [place] [facility] Sep 07, 2024 03:00 PM AMBULATORY - MEDICINE [facility] NTR WSN [facility] Advance Directives: All historical and current Section Date Range: From patient's date of to the date document was created. This section includes ALL of a patient's completed or amended [place] Advance and Rescinded Directives. The entries below indicate that a directive exists for the patient, but an actual copy is not included with this document. The data comes from all [place] facilities. Date Advance Directives Provider Source Apr [...] Patient Name: JAKE DUGAN Patient Primary Phone: [phone] Patient Primary Address: [address] [place] [address] Patient : 1945 Patient Age: 79 Current Location: [facility] Call Back Number: [phone] Caller/Recipient Relation to Patient: Other If Other Describe Relation to Patient: Design Eng Caller Name: Ivanna Administrative Administrative Note Reason: Other Administrative Note Comments: Ivanna ([facility], [place], [place]/[phone]) called to schedule a pre-op appt for patient prior to07/06 left cataract surgery . Ivanna states that is scheduled for right cataract surgery on 07/19. Will defer to PACT for assistance. can be reached @ [phone]. Thank you. IMPORTANT: This note was created by [facility] staff. Please do not alert the staff member by adding them as a signer for future communications. Alerts are not monitored by this user. /mariana/ LIANE MCINTYRE Signed: 06/07/2024 10:31 Receipt Acknowledged By: * AWAITING SIGNATURE * ISABEL FREDERICK 06/07/2024 11:04 /mariana/ WAGNER MOORE,RN-BC REGISTERED NURSE (RN) 06/07/2024 ADDENDUM STATUS: COMPLETED Building Architect scheduled pre-op appt on 06/16/24 @ 01:00 pm f2f. /mariana/ DANIELE MCINTYRE Signed: 06/07/2024 13:58 [facility] [place] [facility] Jun 07, 2024 10:31 AM ADMINISTRATIVE NOTE: LOCAL TITLE: CCC: SCHEDULING ADMINISTRATION STANDARD TITLE: ADMINISTRATIVE NOTE DATE OF NOTE: JUN 07, 2024@10:31:08 ENTRY DATE: JUN 07, 2024@10:31:09 AUTHOR: LIANE GRIMM EXP COSIGNER: URGENCY: STATUS: COMPLETED CCC: SCHEDULING ADMINISTRATION Has ADDENDA Patient Demographics Patient Name: JAKE DUGAN Patient Primary Phone: [phone] Patient Primary Address: [address] [place] [address] Patient : 1945 Patient Age: 79 Current Location: [facility] Call Back Number: [phone] Caller/Recipient Relation to Patient: Other If Other Describe Relation to Patient: Design Eng Caller Name: Ivanna Administrative Administrative Note Reason: Other Administrative Note Comments: Ivanna ([facility], [place], [place]/[phone]) called to schedule a pre-op appt for patient prior to07/06 left cataract surgery . Ivanna states that is scheduled for right cataract surgery on 07/19. Will defer to PACT for assistance. Jean can be reached @ [phone]. Thank you. IMPORTANT: This note was created by [facility] Contact [facility] staff. Please do not alert the staff member by adding them as a signer for future communications. Alerts are not monitored by this user. /mariana/ LIANE MCINTYRE Signed: 06/07/2024 10:31 Receipt Acknowledged By: 06/09/2024 09:28 /es/ ISABEL FREDERICK LPN LPN 06/07/2024 11:04 /es/ WAGNER MOORE,RN-BC REGISTERED NURSE (RN) 06/07/2024 ADDENDUM STATUS: COMPLETED Defer to [facility] to book. /mraiana/ WAGNER MOORE,RN-BC REGISTERED NURSE (RN) Signed: 06/07/2024 11:04 Receipt Acknowledged By: 06/07/2024 13:58 /mariana/ DANIELE MCINTYRE 06/07/2024 ADDENDUM STATUS: COMPLETED Building Architect scheduled pre-op appt on 06/16/24 @ 01:00 pm f2f. /mariana/ DANIELE MCINTYRE Signed: 06/07/2024 13:58 LIANE GRIMM [facility]
--- OUTSIDE RECORDS SUMMARY | 2024-09-07 15:29 | XMS_ITS | Encounter Summary ---
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 Organization [place] Address [address] [place] [address] Care Team Providers Care Business Owner/Engineer Name Role Phone ROWENA ROY Primary Care [...] Segal's Name Patient's Relationship to Policy Segal [facility] (R) MEDICARE ADVANTAGE [place] INDIV IDUAL - [place] Sep 21, 2023 [id number] GENET DUGAN S [facility] ([facility]) [facility]IC[facility] ADVANTAGE [facility] ([facility]) Sep 21, 2023 [id number] [phone] DUGAN,GENET S PATIENT HUSKY MEDICAID HUSKY PLAN May 22, 2022 MEDICAI D [id number] MARVIN DUGANI S PATIENT MEDICARE (WN) MEDICARE (M) PART B May 22, 2022 PART B [id number] DUGAN,GENET S PATIENT MEDICARE (WNR) MEDICARE (M) PART A Feb 19, 2009 PART A [id number] DUGAN,GENET S PATIENT MEDICARE PART D (WNR) MEDICARE (M) PART D Jul 22, 2022 PART D [id number] [phone] GENET DUGAN PATIENT [facility] (WNR) MEDICARE ADVANTAGE [facility] (WNR) Sep 21, 2022 [id number] GENET DUGAN PATIENT [facility] MCR (WNR) MEDICARE ADVANTAGE MCR (WNR) Sep 21, 2022 [id number] GENET DUGAN PATIENT Selected Encounter This [...] MEDICINE [place] [facility] Jun 21, 2024 09:00 AM AMBULATORY - MEDICINE [place] [facility] Aug 09, 2024 09:00 AM AMBULATORY - MEDICINE [place] [facility] Aug 16, 2024 12:00 PM AMBULATORY - NONE [place] [facility] Aug 22, 2024 11:20 AM AMBULATORY - MEDICINE [place] [facility] Aug 24, 2024 11:00 AM [facility]UL[facility] Sep 01, 2024 11:00 AM AMBULATORY - NONE [place]TRL [place] [facility] Sep 07, 2024 03:00 PM AMBULATORY - MEDICINE [facility] NTRL [place] [facility] Advance Directives: All historical and current [...] REQUIRED Electronically Filed: 06/17/2024 by: ANIBAL SHEARER CONTINUOUS DRYOUT OPERATOR HELPER ANIBAL SHEARER IN CNTL WSTRN [facility]
--- OUTSIDE RECORDS SUMMARY | 2024-09-07 15:29 | XMS_ITS | Encounter Summary ---
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 Organization [place] Address [address] [place] [address] Care Team Providers Care Optical Glass Sawyer Name Role Phone ROWENA ROY Primary Care [...] INDIV IDUAL - MASS Sep 21, 2023 [id number] [phone] GENET DUGAN S [facility] ([facility]) [facility] AD[facility]ANT[facility] ([facility]) Sep 21, 2023 [id number] A [id number] [phone] MARVIN DUGANI S PATIENT HUSKY MEDICAID HUSKY PLAN May 22, 2022 MEDICAI D [id number] GENET DUGAN S PATIENT MEDICARE ([facility]) MEDICARE (M) PART B May 22, 2022 PART B [id number] GENET DUGAN S PATIENT MEDICARE (WNR) MEDICARE (M) PART A Feb 19, 2009 PART A [id number] MARVIN DUGANI S PATIENT MEDICARE PART D (WNR) MEDICARE (M) PART D Jul 22, 2022 PART D [id number] GENET DUGAN S PATIENT [facility] (WNR) MEDICARE ADVANTAGE [facility] (WNR) Sep 21, 2022 [id number] [phone] GENET DUGAN S PATIENT [facility] M[facility] (WNR) MEDICARE ADVANTAGE MCR (WNR) Sep 21, 2022 [id number] GENET DUGAN PATIENT Selected Encounter This section includes the information on record at [place] for the Encounter. Date/Time Encounter Type Encounter Description Reason Provider Source May 31, 2024 10:00 AM OFF/OP EST JANUARY X REQ PHY/QHP PRIMARY CARE/MEDICINE ICD-10-CM Z23 Encounter for immunization NIK BRANDON [place] Encounter Template Text not used by [place] Assessments - Encounter Diagnoses This section includes the primary and secondary diagnoses documented for the Encounter. Date/Time Primary/Secondary Diagnosis Diagnosis Name Provider Source May 31, 2024 10:09 AM PRIMARY Encounter for immunization JENNIFER BRANDON CEAS[place] Plan of Treatment: Future Appointments (+ 6 months) and Future Tests (+/- 45 days) The Plan of Treatment section includes future care activities for the patient from all [place] treatment[facility]. This section includes future appointments and future orders which are active, pending or scheduled. Future Appointments This section includes appointments that were scheduled to occur 6 months from the date of the Encounter, up to a maximum of 20 appointments. The data comes from all [place] treatment facilities. Appointment Date/Time Appointment Type Appointme nt Facility Name Jun 03, 2024 12:45 PM AMBULATORY - MEDICINE [place] [facility] [place] [facility] Jun 21, 2024 09:00 AM AMBULATORY - MEDICINE [place] [facility] [place] [facility] Aug 09, 2024 09:00 AM AMBULATORY - MEDICINE [place] [facility] [place] [facility] Aug 16, 2024 12:00 PM AMBULATORY - NONE [place] [facility] [place] [place] [facility] Aug 22, 2024 11:20 AM AMBULATORY - MEDICINE [place] [facility] [place] [facility] Aug 24, 2024 11:00 AM [facility] Sep 01, 2024 11:00 AM AMBULATORY - NONE [facility] [place] [facility] Sep 07, 2024 03:00 PM AMBULATORY - MEDICINE [place] [facility] [place] [facility] Immunizations: All administered on the encounter date This section contains immunizations associated to the Encounter. Immunization Series Date Issued Reaction Comments INFLUENZA, HIGH-DOSE, TRIVALENT, PF May 31 Social History: Smoking Status (Most current) and Tobacco Use (All prior to encounter date) This section includes the most current, and the historical, smoking and tobacco- related health factors from the [place] facility where the Encounter took place. Current Smoking Status This section includes the most current smoking, or tobacco-related health factor, from the [place] facility where the Encounter took place. Date/Time Current Smoking Status Comment Facil ity May 31, 2024 10:00 AM [place]-TOBACCO NEVER USED [place] Tobacco Use History This section includes a history of the smoking, or tobacco-related health factors, that were collected on or before the date of the Encounter. The data comes from the [place] facility where the Encounter took place. Date/Time Smoking Status/Tobacco Use Comment F acility Jun 23, 2023 09:00 AM VA-TOBACCO FORMER USER [place] Jun 23, 2023 09:00 AM VA-TOBACCO QUIT 15 YRS OR MORE [facility] May 01, 2022 01:30 PM VA-TOBACCO FORMER USER [place] May 01, 2022 01:30 PM VA-TOBACCO QUIT 15 YRS OR MORE [facility] Apr 15, 2021 03:00 PM VA-TOBACCO FORMER USER [place] Apr 15, 2021 03:00 PM VA-TOBACCO QUIT 15 YRS OR MORE [place] Oct 20, 2018 12:53 PM VA-TOBACCO FORMER USER [place] Oct 20, 2018 12:53 PM VA-TOBACCO QUIT 15 YRS OR MORE [place] Jul 03, 2017 10:33 AM QUIT TOBACCO USE > 7 YEARS AGO quit 25yrs ago [place] February 13, 2016 08:46 AM LIFETIME NON-TOBACCO USER [facility] Advance Directives: All historical and current Section Date Range: From patient's date of to the date document was created. This section includes ALL of a patient's completed or amended [place] Advance and Rescinded Directives. The entries below indicate that a directive exists for the patient, but an actual copy is not included with this document. The data comes from all [facility]. Date Advance Directives Provider Source Apr 04, 2024 ADVANCE DIRECTIVE CHAPINCITO DEE [facility] Encounter Notes: All [...] PF Date Administered: May 31, 2024 10:00 Manager Business Continuity: SANOFI PASTEUR Lot: [id number] Exp Date: Mar 20, 2025 NDC: [id number] Admin Route/Site: INTRAMUSCULAR/LEFT DELTOID Dosage: 0.5mL Vaccine Information Statement(s): INFLUENZA(FLU) VACC(INACTIVATED OR RECOMBINANT)VIS Apr 26, 2021 (MOZAMBICAN) Order By: Policy Administered By: Jennifer Brandon [...] for next injection. Upcoming Appointments: 06/03/2024 12:45 COM CARE-OPHTHALMOLOGY 06/21/2024 09:00 CWM/SO/PACT 9 10/28/2024 10:00 [...] Not at all Suicide Screen: C-SSRS Screening [place] Suicide Severity Rating Scale (C-SSRS) screener 1. [...] REGISTERED NURSE (RN) Signed: 05/31/2024 10:09 JENNIFER BRANDONFIELD
--- OUTSIDE RECORDS SUMMARY | 2024-09-07 15:29 | XMS_ITS | Encounter Summary ---
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 Organization [facility] Address [address] [place] [address] Care Team Providers Care Regional Safety Manager Name Role Phone ROWENA ROY Primary Care [...] Segal's Name Patient's Relationship to Policy Segal [facility] ([facility]) MEDICARE ADVANTAGE [place] INDIV IDUAL - [place] Sep 21, 2023 [id number] [phone] GENET DUGAN S [facility]IENT [facility] ([facility]NR) MEDICARE ADVANTAGE [facility] ([facility]) Sep 21, 2023 [id number] [phone] MARVIN DUGANI S PATIENT HUSKY MEDICAID HUSKY PLAN May 22, 2022 MEDICAI D [id number] GENET DUGAN S PATIENT MEDICARE ([facility]) MEDICARE (M) PART B May 22, 2022 PART B [id number] [id number] [phone] MARVIN DUGANI S PATIENT MEDICARE ([facility]) MEDICARE (M) PART A Feb 19, 2009 PART A [id number] DUGAN,GENET S PATIENT MEDICARE PART D (WNR) MEDICARE (M) PART D Jul 22, 2022 PART D [id number] [phone] GENET DUGAN PATIENT [facility] (WNR) MEDICARE ADVANTAGE MCR (WNR) Sep 21, 2022 [id number] GENET DUGAN PATIENT [facility] (WNR) MEDICARE ADVANTAGE MCR (WNR) Sep 21, 2022 [id number] [phone] GENET DUGAN PATIENT Selected Encounter This section includes the information on record at [place] for the Encounter. Date/Time Encounter Type Encounter Description Reason Pro vider Source Jun 13, 2024 09:42 AM Outpatient Encounter PRIMARY CARE/MEDICINE IHE Encounter Template Text not used by [place] Plan of Treatment: Future Appointments (+ 6 months) and Future Tests (+/- 45 days) The Plan of Treatment section includes future care activities for the patient from all [place] treatmentfacilities. This section includes future appointments and future orders which are active, pending or scheduled. Future Appointments This section includes appointments that were scheduled to occur 6 months from the date of the Encounter, up to a maximum of 20 appointments. The data comes from all [place] treatment facilities. Appointment Date/Time Appointment Type Appointme nt Facility Name Jun 21, 2024 09:00 AM AMBULATORY - MEDICINE [place] [facility] [place] [place] [facility] Aug 09, 2024 09:00 AM AMBULATORY - MEDICINE [place] [facility] [place] [facility] Aug 16, 2024 12:00 PM AMBULATORY - NONE [place] [facility] [place] [facility] Aug 22, 2024 11:20 AM AMBULATORY - MEDICINE [place] [facility] [place] [facility] Aug 24, 2024 11:00 AM [facility] Sep 01, 2024 11:00 AM AMBULATORY - NONE [place] [facility] [place] [facility] Sep 07, 2024 03:00 PM [facility] Advance Directives: All historical and current Section Date Range: From patient's date of to the date document was created. This section includes ALL of a patient's completed or amended [place] Advance and Rescinded Directives. The entries below indicate that a directive exists for the patient, but an actual copy is not included with this document. The data comes from all [place] facilities. Date Advance Directives Provider Source Apr 04, 2024 [facility] Encounter Notes: All associated encounter notes [...] DANIELE ROSE EXP COSIGNER: URGENCY: STATUS: COMPLETED Water/Wastewater Engineer called to [ ] Schedule primary care [...] 06/21/24 @ 09:00 am. /mariana/ DANIELE ROSE AMSLou Signed: 06/13/2024 09:43 DANIELE ROSEFIELD
--- OUTSIDE RECORDS SUMMARY | 2024-09-07 15:29 | XMS_ITS | Encounter Summary ---
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 Organization [place] Address [address] [place] [address] Care Team Providers Care Hydrotechnical Specialist Name Role Phone ROWENA ROY Primary Care Provider [facility] e Insurance Providers: All historical [...] Relationship to Policy Segal [facility]) MEDICARE ADVANTAGE [place] INDIV IDUAL - [place] Sep 21, 2023 [id number] [phone] GENET [facility]UGAN S [facility]IENT [facility] ([facility]ICARE [facility] ([facility]) Sep 21, 2023 [id number] [phone] GENET DUGAN S PATIENT HUSKY MEDICAID HUSKY PLAN May 22, 2022 MEDICAI D [id number] GENET DUGAN S PATIENT MEDICARE ([facility]) MEDICARE () PART B May 22, 2022 PART B [id number] GENET DUGAN S PATIENT MEDICARE (WNR) MEDICARE () PART A Feb 19, 2009 PART A [id number] [id number] [phone] GENET DUGAN S PATIENT MEDICARE PART D (WNR) MEDICARE (M) PART D Jul 22, 2022 PART D [id number] [phone] GENET DUGAN S PATIENT [facility] (WNR) MEDICARE ADVANTAGE [facility] (WNR) Sep 21, 2022 [id number] [phone] GENET DUGAN S PATIENT [facility] (WNR) MEDICARE ADVANTAGE [facility] (WNR) Sep 21, 2022 [id number] GENET DUGAN PATIENT Selected Encounter This section includes the information on record at [place] for the Encounter. Date/Time Encounter Type Encounter Description Reason Provider Source Jun 21, 2024 09:00 AM OFFICE O/P EST MOD 30 MIN PRIMARY CARE/MEDICINE ICD-10-CM Z01.810 Encounter for preprocedural cardiovascular examination GAVIOTA VERDUZCO [place] Encounter Template Text not used by [place] Assessments - Encounter Diagnoses This section includes the primary and secondary diagnoses documented for the Encounter. Date/Time Primary/Secondary Diagnosis Diagnosis Name Provider Source Jun 30, 2024 01:24 PM PRIMARY Encounter for preprocedural cardiovascular examination HAYLEY VERDUZCO [place] Plan of Treatment: Future Appointments (+ 6 months) and Future Tests (+/- 45 days) The Plan of Treatment section includes future care activities for the patient from all [place] [facility]. This section includes future appointments and future orders which are active, pending or scheduled. Future Appointments This section includes appointments that were scheduled to occur 6 months from the date of the Encounter, up to a maximum of 20 appointments. The data comes from all [place] treatment facilities. Appointment Date/Time Appointment Type Appointme nt Facility Name Aug 09, 2024 09:00 AM AMBULATORY - MEDICINE [place] [facility] [place] [facility] Aug 16, 2024 12:00 PM AMBULATORY - NONE [place] [facility] [place] [facility] Aug 22, 2024 11:20 AM AMBULATORY - MEDICINE [place] [facility] [place] [facility] Aug 24, 2024 11:00 AM [facility] Sep 01, 2024 11:00 AM AMBULATORY - NONE [place] [facility] [place] [facility] Sep 07, 2024 03:00 PM AMBULATORY - MEDICINE [place] [facility] [place] [facility] Dec 13, 2024 01:30 PM AMBULATORY - [place]ICINE [place] Social History: Smoking Status (Most current) and Tobacco Use (All prior to encounter date) This section includes the most current, and the historical, smoking and tobacco- related health factors from the [place] facility where the Encounter took place. Current Smoking Status This section includes the most current smoking, or tobacco-related health factor, from the [place] facility where the Encounter took place. Date/Time Current Smoking Status Comment Facil ity May 31, 2024 10:00 AM VA-TOBACCO NEVER USED [place] Tobacco Use History This section includes a history of the smoking, or tobacco-related health factors, that were collected on or before the date of the Encounter. The data comes from the [place] facility where the Encounter took place. Date/Time Smoking Status/Tobacco Use Comment F acility Jun 23, 2023 09:00 AM VA-TOBACCO FORMER USER [place] Jun 23, 2023 09:00 AM VA-TOBACCO QUIT 15 YRS OR MORE [place] May 01, 2022 01:30 PM VA-TOBACCO FORMER USER [place] May 01, 2022 01:30 PM VA-TOBACCO QUIT 15 YRS OR MORE [place] Apr 15, 2021 03:00 PM VA-TOBACCO FORMER USER [place] Apr 15, 2021 03:00 PM VA-TOBACCO QUIT 15 YRS OR MORE [place] Oct 20, 2018 12:53 PM VA-TOBACCO FORMER USER [place] Oct 20, 2018 12:53 PM VA-TOBACCO QUIT 15 YRS OR MORE [place] Jul 03, 2017 10:33 AM QUIT TOBACCO USE > 7 YEARS AGO quit 25yrs ago [place] February 13, 2016 08:46 AM LIFETIME NON-TOBACCO USER [place] Advance Directives: All historical and current Section Date Range: From patient's date of to the date document was created. This section includes ALL of a patient's completed or amended [place] Advance and Rescinded Directives. The entries below [...] EXP COSIGNER: URGENCY: STATUS: COMPLETED DEPARTMENT OF [facility] Toll Free Number Primary Care Telephone Assistance can be reached at extension [phone] [facility] scheduling can be reached at extension [phone] [facility] scheduling can be reached at [phone] As per your request, the most recent [...] Detected [631] Comment: Test performed on the CDNlion Genexpert. A negative test results does not exclude the possibility of infection because results may be affected by improper specimen collection, concurrent antibiotic therapy, or the number of organisms in the specimen which may be below the sensitivity of the test. = Sincerely, Your Primary Care Team [facility] [address] [facility] [address] [place] [address] [place] [address] [phone] [facility] [address] [place] [address] [place] [address] [facility] [address] [facility] [place] [address] [place] [address] NOLAN VERDUZCO [place] Jun 21, 2024 09:44 AM PREVENTIVE MEDICIN [...] LPN LPN Signed: 06/21/2024 09:45 ISABEL FREDERICK CEASAR Jun 21, 2024 08:33 AM PHYSICIAN NOTE: [...] aches and pains which he just takes [id number] Tylenol with good resolution. He did report [...] routine labs. He anticipated gogin back to [place] by six months. RTC 6mos Problem list [...] 5. Paraesthesia of lower extremity (SNOMED CT [id number]) previously on gabapentin recently with objective signs of dminished circulation to LEFT foot only initial screen for metabolic/nutritional causes of neuropathy unrevealing No show to neurology NCS, Summer 2020 No show to Vascular consult, Summer 2020 6. status post appendectomy 7. Diverticular disease normal colonoscopy August, 8. Osteoarthritis (SNOMED CT [id number]) C/S worst at C6-C7 09/06 mod OA Interphalamgeal joint right thumb 09/06 9. Generalized anxiety disorder 10. Epilepsy [facility] [address] [facility], [place] Link OV 12-05-15 11. Essential hypertension [facility] [address] [facility], [place] Link OV 12-05-15 12. Atypical chest pain [place] 769251, [place] Link OV 12-05-15 02/13/16 EKG NSR 12/30/17 EKG NSR PHYSICAL EXAMINATION/DIRECTED EXAM: BP:147/73 (06/21/2024 09:42) Resp:20 (06/21/2024 09:42) Temp:96.4 F [35.8 C] (06/21/2024 09:42) Pulse:20 (06/21/2024 09:42) WEIGHT 06/21/2024 09:42 207(93.89)[30*] 04/27/2024 10:09 184(83.46)[26] 03/21/2024 09:53 186(84.37)[27] Comfortable S1S2 RRR lungs CTA Benign abdomen No edema ASSESSMENT & PLAN: 79 year old MALE SERVICE CONNECTED % - [address] [place] presents for preoperative evaluation for cataract surgery. [...] MD PHYSICIAN Signed: 06/30/2024 13:24 NOLAN VERDUZCO [place]
--- OUTSIDE RECORDS SUMMARY | 2024-09-07 15:29 | XMS_ITS ---
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 Organization [place] Address [address] [place] [address] Care Team Providers Care Materials Intern Name Role Phone ROWENA ROY Primary Care [...] INDIV IDUAL - [place] Sep 21, 2023 [id number] [phone] GENET [facility]UGAN S [facility]IC[facility] ADVANTAGE [facility] ([facility]) Sep 21, 2023 [id number] [phone] DUGAN,GENET S PATIENT HUSKY MEDICAID HUSKY PLAN May 22, 2022 MEDICAI D [id number] MARVIN DUGANI S PATIENT MEDICARE ([facility]) MEDICARE ([place]) PART B May 22, 2022 PART B [id number] [id number] [phone] DUGAN,GENET S PATIENT MEDICARE (WN) MEDICARE (M) PART A Feb 19, 2009 PART A [id number] DUGAN,GENET S PATIENT MEDICARE PART D (WNR) MEDICARE (M) PART D Jul 22, 2022 PART D [id number] [phone] GNEET DUGAN S PATIENT [facility] (WNR) MEDICARE ADVANTAGE [facility] (WNR) Sep 21, 2022 [id number] GENET DUGAN PATIENT [facility] (WNR) MEDICARE [facility] (WNR) Sep 21, 2022 [id number] [phone] GENET DUGAN PATIENT Selected Encounter This section [...] - MEDICINE [place] [place] [facility] Jun 03, 2024 12:45 PM AMBULATORY - MEDICINE [place] [facility] Jun 21, 2024 09:00 AM AMBULATORY - MEDICINE [place] [facility] [place] [place] [facility] Aug 09, 2024 09:00 AM AMBULATORY - MEDICINE [place] [facility] [place] [place] [facility] Aug 16, 2024 12:00 PM AMBULATORY - NONE [place] [facility] [place] [facility] Aug 22, 2024 11:20 AM AMBULATORY - MEDICINE [place] [facility] [place] [facility] Aug 24, 2024 11:00 AM [facility] Sep 01, 2024 11:00 AM AMBULATORY - NONE [facility] [place] [facility] Sep 07, 2024 03:00 PM AMBULATORY - MEDICINE [place] [facility] [place] [facility] Advance Directives: All historical and [...] REQUIRED Electronically Filed: 06/08/2024 by: ANIBAL SHEARER FINAL BLOCK PRESS OPERATOR ANIBAL SHEARER [facility]
--- OUTSIDE RECORDS SUMMARY | 2024-09-07 15:29 | XMS_ITS | Encounter Summary ---
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 Address [address] [place] [id number] Care Team Providers Care Global Position System Technician Name Role Phone ROWENA ROY Primary [facility] Insurance Providers: All historical and [...] Segal's Name Patient's Relationship to Policy Segal [facility] MEDICARE ADVANTAGE [place] INDIV IDUAL - [place] Sep 21, 2023 [id number] [phone] GENET DUGAN S [facility] ([facility]) Sep 21, 2023 [id number] [phone] GENET DUGAN S PATIENT [place] MEDICAID [place] May 22, 2022 MEDICAI D [id number] GENET DUGAN S PATIENT MEDICARE ([facility]) MEDICARE () PART B May 22, 2022 PART B [id number] GENET DUGAN S PATIENT MEDICARE (WNR) MEDICARE () PART A Feb 19, 2009 PART A [id number] [phone] GENET DUGAN S PATIENT MEDICARE PART D (WNR) MEDICARE (M) PART D Jul 22, 2022 PART D [id number] [phone] DUGAN,GENET S PATIENT [facility] (WNR) MEDICARE ADVANTAGE [facility] (WNR) Sep 21, 2022 [id number] [phone] DUGAN,GENET S PATIENT [facility] (WNR) MEDICARE ADVANTAGE [facility] (WNR) Sep 21, 2022 [id number] DUGAN,GENET S PATIENT Selected Encounter This section includes the information on record at [place] for the Encounter. 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 Date/Time Primary/Secondary Diagnosis Diagnosis Name Provider Source Apr 27, 2024 10:38 AM PRIMARY Carcinoma in situ of prostate MONICA RAMACHANDRAN CEASAR Apr 27, 2024 10:38 AM SECONDARY Generalized anxiety disorder LUBAMONICA MARTINEZ [place] Plan of Treatment: Future Appointments (+ 6 months) and Future Tests (+/- 45 days) The Plan of Treatment section includes future care activities for the patient from all [place] treatmentfacilities. This section includes future appointments and future orders which are active, pending or scheduled. Future Appointments This section includes appointments that were scheduled to occur 6 months from the date of the Encounter, up to a maximum of 20 appointments. The data comes from all [place] treatment facilities. Appointment Date/Time Appointment Type Appointme nt Facility Name May 13, 2024 11:00 AM [place]ORY [place] [facility] [place] [facility] May 31, 2024 10:00 AM [place] [facility] Jun 03, 2024 12:45 PM [place]UL[place]ORY [place] [facility] Jun 21, 2024 09:00 AM AMBULATORY - MEDICINE [facility] [place] [facility] Aug 09, 2024 09:00 AM AM[place]UL[place]ORY [place] [facility] Aug 16, 2024 12:00 PM AMBULATORY - NONE [facility] [place] [facility] Aug 22, 2024 11:20 AM AMBULATORY - MEDICINE [facility] [facility] Aug 24, 2024 11:00 AM AMBULATORY - MEDICINE [place] Sep 01, 2024 11:00 AM AM[facility]UL[facility]ONE [facility] Sep 07, 2024 03:00 PM [facility]UL[facility]INE [facility] Active, Pending, and Scheduled Orders This section includes a listing of several types of active, pending, and scheduled orders, including clinic medications orders, diagnostic test orders, procedure orders and consult orders; where the start date of the order is 45 days before the date of the Encounter or 45 days after the date of theEncounter. The data comes from all [place] treatment facilities. Test Date/Time Test Type Test Details Facility Name Mar 19, 2024 12:00 AM Laboratory - Chemistry Order MICROALBUMIN CREATININE RATIO PANEL URINE (RANDOM) [facility] Mar 19, 2024 12:00 AM Laboratory - Chemistry Order FOLATE BLOOD (SST-SERUM) [facility] Mar 19, 2024 12:00 AM Laboratory - Chemistry Order VITAMIN B12 BLOOD (SST-SERUM) [facility] Mar 19, 2024 12:00 AM Laboratory - Chemistry Order BASIC METABOLIC PANEL (fasting) BLOOD (SST-SERUM) [facility] Mar 19, 2024 12:00 AM Laboratory - Chemistry Order VITAMIN D 25-OH (Therapy monitor) BLOOD (SST-SERUM) [facility] Mar 19, 2024 12:00 AM Laboratory - Chemistry Order LIVER FUNCTION BLOOD (SST-SERUM) [facility] Mar 19, 2024 12:00 AM Laboratory - Chemistry Order LIPID PANEL FASTING BLOOD (SST-SERUM) [facility] Mar 19, 2024 12:00 AM Laboratory - Chemistry Order HEMOGLOBIN A1C PANEL BLOOD (LAV-BLOOD) [facility] Mar 19, 2024 12:00 AM Laboratory - Chemistry Order CBC AND DIFF (AUTO) BLOOD (LAV-BLOOD) [facility] Mar 19, 2024 12:00 AM Laboratory - Chemistry Order TSH BLOOD (SST-SERUM) [facility] Mar 19, 2024 12:00 AM Laboratory - Chemistry Order PSA BLOOD (SST-SERUM) [facility] Social History: Smoking Status (Most current) and Tobacco Use (All prior to encounter date) This section includes the most current, and the historical, smoking and tobacco- related health factors from the [place] facility where the Encounter took place. Current Smoking Status This section includes the most current smoking, or tobacco-related health factor, from the [place] facility where the Encounter took place. Date/Time Current Smoking Status Comment Facil ity Jun 23, 2023 09:00 AM VA-TOBACCO FORMER USER [place] Tobacco Use History This section includes a history of the smoking, or tobacco-related health factors, that were collected on or before the date of the Encounter. The data comes from the [place] facility where the Encounter took place. Date/Time Smoking Status/Tobacco Use Comment F acility Jun 23, 2023 09:00 AM VA-TOBACCO QUIT 15 YRS OR MORE [place] May 01, 2022 01:30 PM VA-TOBACCO FORMER USER [place] May 01, 2022 01:30 PM VA-TOBACCO QUIT 15 YRS OR MORE [place] Apr 15, 2021 03:00 PM VA-TOBACCO FORMER USER [place] Apr 15, 2021 03:00 PM VA-TOBACCO QUIT 15 YRS OR MORE [place] Oct 20, 2018 12:53 PM VA-TOBACCO FORMER USER [place] Oct 20, 2018 12:53 PM VA-TOBACCO QUIT 15 YRS OR MORE [place] Jul 03, 2017 10:33 AM QUIT TOBACCO USE > 7 YEARS AGO quit 25yrs ago [place] February 13, 2016 08:46 AM LIFETIME NON-TOBACCO USER [place] Advance Directives: All historical and current Section Date Range: From patient's date of to the date document was created. This section includes ALL of a patient's completed or amended [place] Advance and Rescinded Directives. The entries below indicate that a directive exists for the patient, but an actual copy is not included with this document. The data comes from all [facility]. Date Advance Directives [...] EXP COSIGNER: URGENCY: STATUS: COMPLETED DEPART[facility] OF [facility] Toll Free Number Primary Care Telephone Assistance can be reached at extension [phone] [facility] scheduling can be reached at extension [phone] [facility] scheduling can be reached at ext [phone] APR 27, [address] [place] [address] [facility] Re: JAKE DUGAN To Whom It May Concern: I am writing on behalf of my patient who has requested a letter concerning his diagnosis of prostate cancer. Prostate cancer is currently under treatment by [facility] urology. Understandably this diagnosis is [...] Primary Care Sincerely, Your Primary Care Team [facility] [address] [address] [place] [address] [facility] [address] [place] [address] [place] [address] [facility] [address] [facility]1st Floor [address] [place] [address] [place] [address] NOLAN RAMACHANDRAN [place] Apr 27, 2024 10:09 AM PREVENTIVE MEDICIN E NURSING NOTE: LOCAL TITLE: CLINICAL REMINDERS/NURSING STANDARD TITLE: PREVENTIVE MEDICINE NURSING NOTE DATE OF NOTE: APR 27, 2024@10:09 ENTRY DATE: APR 27, 2024@10:09:38 AUTHOR: TAMMIE DIAZ EXP COSIGNER: URGENCY: STATUS: COMPLETED Falls & Incontinence Screen: Falls Screen: 4. No falls within the past year. Incontinence Screen No incontinence. COVID-19 Immunization: Additional Information: [facility] Interim Clinical Considerations for Use of COVID-19 Vaccines in [facility] COVID-19 Vaccine [employer] /mariana/ TAMMIE DIAZ LPN LPN Signed: 04/27/2024 10:10 TAMMIE DIAZ [place] Apr 27, 2024 08:14 AM PHYSICIAN NOTE: [...] asked me for a letter from his guest service representative to describe how the prostate cancer has [...] 5. Paraesthesia of lower extremity (SNOMED CT [id number]) previously on gabapentin recently with objective signs of dminished circulation to LEFT foot only initial screen for metabolic/nutritional causes of neuropathy unrevealing No show to neurology NCS, Summer 2020 No show to Vascular consult, Summer 2020 6. status post appendectomy 7. Diverticular disease normal colonoscopy August, 8. Osteoarthritis (SNOMED CT 113866025) C/S worst at C6-C7 09/06 mod OA Interphalamgeal joint right thumb 09/06 9. Generalized anxiety disorder 10. Epilepsy [place] [id number], CELINA Link OV 12-05-15 11. Essential hypertension [place] [address], [facility] OV 12-05-15 12. Atypical chest pain [place] [address], [facility] OV 12-05-15 02/13/16 EKG NSR [...] routine labs. He anticipated gogin back to [place] by six months. Plan of care discussed [...] 05/13/2024 11:00 CWM/SO/PACT 9 NURSING 06/03/2024 12:45 [facility]-OPHTHALMOLOGY 06/21/2024 09:00 CWM/SO/PACT 9 01/02/2025 10:00 [...] MD PHYSICIAN Signed: 04/27/2024 10:38 NOLAN RAMACHANDRAN [place]
--- OUTSIDE RECORDS SUMMARY | 2024-09-07 15:29 | XMS_ITS ---
Author Name [facility] [place] Address [address] [place] [address] Care Team Providers Care Utilization Engineer Name Role Phone ROWENA ROY Primary Care [...] Relationship to Policy Segal [facility] MEDICARE ADVANTAGE [place] INDIV IDUAL - [place] Sep 21, 2023 [id number] [phone] GENET DUGAN S [facility] MEDICARE ADVANTAGE [facility] ([facility]) Sep 21, 2023 [id number] [phone] MARVIN DUGANI S PATIENT [place] MEDICAID [place] PLAN May 22, 2022 MEDICAI D [id number] MARVIN DUGANI S PATIENT MEDICARE ([facility]) MEDICARE (M) PART B May 22, 2022 PART B [id number] DUGAN,GENET S PATIENT MEDICARE ([facility]) MEDICARE (M) PART A Feb 19, 2009 PART A [id number] DUGAN,GENET S PATIENT MEDICARE PART D (WNR) MEDICARE (M) PART D Jul 22, 2022 PART D [id number] GENET DUGAN PATIENT [facility] (WNR) MEDICARE ADVANTAGE [facility] (WNR) Sep 21, 2022 [id number] GENET DUGAN PATIENT [facility] (WNR) MEDICARE ADVANTAGE [facility] (WNR) Sep 21, 2022 [id number] GENET DUGAN PATIENT Selected Encounter This section [...] - MEDICINE [place] [facility] Aug 09, 2024 09:00 AM AMBULATORY - [place]ICINE [place] [facility] Aug 16, 2024 12:00 PM AMBULATORY - NONE [place] [facility] [place] [facility] Aug 22, 2024 11:20 AM AMBULATORY - [place]ICINE [place] [facility] Aug 24, 2024 11:00 AM AMBULATORY - MEDICINE [place] Sep 01, 2024 11:00 AM AMBULATORY - NONE [place] [facility] [place] [facility] Sep 07, 2024 03:00 PM AMBULATORY - MEDICINE [place] [facility] Dec 13, 2024 01:30 PM [...] DATE: JUN 16, 2024@09:37:17 AUTHOR: BRYSON CRUZ EXP COSIGNER: URGENCY: STATUS: COMPLETED CCC: SCHEDULING ADMINISTRATION Has ADDENDA Patient Demographics Patient Name: JAKE DUGAN Patient Primary Phone: [phone] Patient Primary Address: [address] [place] [address] Patient : 1945 Patient Age: 79 Call Back Number: [phone] Caller/Recipient Relation to Patient: Self Administrative Administrative Note Reason: Other Administrative Note Comments: [place] calling to cancel pact appointment for pre op today. 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 Please call to [phone] IMPORTANT: This note was created by [facility] Clinical Contact Center staff. Please do not alert the staff member by adding them as a signer for future communications. Alerts are not monitored by this user. /viky CRUZ Signed: 06/16/2024 09:37 Receipt Acknowledged By: 06/17/2024 14:25 /viky FREDERICK LPN LPN 06/16/2024 13:43 /mariana/ Marina Marquez RN Registered Nurse (RN) for JELANI BRANDON 06/16/2024 ADDENDUM STATUS: COMPLETED PACT [employer] to follow up with /viky Marquez RN Registered Nurse (RN) Signed: 06/16/2024 13:42 06/17/2024 ADDENDUM STATUS: COMPLETED WAS CALLED BY THIS MARKETING ANALYST X3 AND UNABLE TO REACH. /viky FREDERICK LPN LPN Signed: 06/17/2024 14:26 BRYSON CRUZ [facility]
--- OUTSIDE RECORDS SUMMARY | 2024-09-07 15:30 | XMS_ITS | Encounter Summary ---
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 Organization Department of [place] Address [address] [place] [address] Care Team Providers Care Doubler Operator Name Role Phone ROWENA ROY Primary [...] Segal's Name Patient's Relationship to Policy Segal [facility] (R) MEDICARE ADVANTAGE [place] IN[place] - [place] Sep 21, 2023 [id number] [phone] GENET DUGAN S [facility]) MEDIC[facility] ADVANTAGE [facility] ([facility]) Sep 21, 2023 [id number] [phone] DUGAN,GENET S PATIENT H[place]KY MEDICAID H[place] PLAN May 22, 2022 MEDICAI D [id number] MARVIN DUGANI S PATIENT MEDICARE (WN) MEDICARE (M) PART B May 22, 2022 PART B [id number] DUGAN,GENET S PATIENT MEDICARE (WNR) MEDICARE (M) PART A Feb 19, 2009 PART A [id number] DUGAN,GENET S PATIENT MEDICARE PART D (WNR) MEDICARE (M) PART D Jul 22, 2022 PART D [id number] GENET DUGAN PATIENT [facility] (WNR) MEDICARE ADVANTAGE [facility] (WNR) Sep 21, 2022 [id number] [phone] GENET DUGAN PATIENT [facility] MCR (WNR) MEDICARE ADVANTAGE MCR (WNR) Sep 21, 2022 [id number] GENET DUGAN PATIENT Selected Encounter This section includes the information on record at [place] for the Encounter. Date/Time Encounter Type Encounter Description Reason Pro vider Source Jul 18, 2024 04:55 PM Outpatient Encounter COMMUNITY CARE CONSULT IHE Encounter Template Text not used by [place] Plan of Treatment: Future Appointments (+ 6 months) and Future Tests (+/- 45 days) The Plan of Treatment section includes future care activities for the patient from all [place] [facility]. This section includes future appointments and future [...] 09, 2024 09:00 AM AMBULATORY - MEDICINE [place] [facility] Aug 16, 2024 12:00 PM AMBULATORY - NONE [place] [facility] Aug 22, 2024 11:20 AM AMBULATORY - MEDICINE [place] [facility] Aug 24, 2024 11:00 AM AMBULATORY - MEDICINE [facility] Sep 01, 2024 11:00 AM AMBULATORY - NONE [place] [facility] Sep 07, 2024 03:00 PM AMBULATORY - MEDICINE [place] [facility] Dec 13, 2024 01:30 PM [facility] Jan 02, 2025 10:00 AM AMBULATORY - MEDICINE [facility] [place] [place] [facility] Active, Pending, and Scheduled Orders This [...] 09:40 AM Consult Order COMMUNITY CARE-UROLOGY Cons Softball Winder's Choice [facility] Lab Results: +/- 30 days of [...] Range Comment Aug 08, 2024 10:59 AM [facility] VITAMIN D 25-OH (Therapy monitor) Specimen [...] For additional information, please refer to [email or web address] [email or web address] (This link is being provided for informational/ educational purposes only.) This test was developed and its analytical performance characteristics have been determined by [place] It has not been cleared or approved by the U.S. Food and Drug Administration. This assay has been validated pursuant to the CLIA regulations and is used for clinical purposes. This test was developed and its analytical performance characteristics have been determined by [place] It has not been cleared or approved by the U.S. Food and Drug Administration. This assay has been validated pursuant to the CLIA regulations and is used for clinical purposes. Test Performed by [facility], [place], [address] [place], [place] Dov Bahena M.D., Ph.D., Director of Laboratories , CLIA [id number] TEST PERFORMED AT: , Ordering Provider: HORTENCIA VERDUZCO Report Released Date/Time: Aug 08, 2024 10:54 AM Reporting Lab: [facility] [address] [facility] [address] Performing Lab: [facility] [address] [facility] [place], [address] [facility] [address] VITAMIN D, 25-OH, TOTAL 51 ng/mL 30-100 VITAMIN D, 25-OH, D3 51 ng/mL VITAMIN D, 25-OH, D2 <4 ng/mL Aug 08, 2024 10:59 AM [facility] FOLATE (WROX) Specimen Type: SERUM No comment entered. Ordering Provider: HORTENCIA VERDUZCO Report Released Date/Time: Aug 08, 2024 10:54 AM Reporting Lab: [facility] [address] [facility] [address] Performing Lab: [facility]ITAL[facility] [address] [facility] [address] FOLATE (WROX) 4.07 ng/mL L >5.2 Aug 08, 2024 10:59 AM [facility] MICROALBUMIN CREATININE RATIO PANEL Specimen Type: URINE No comment entered. Ordering Provider: HORTENCIA VERDUZCO Report Released Date/Time: Aug 08, 2024 10:54 AM Reporting Lab: [facility]ITALR[facility]ERN [facility]ITAL[facility] [address] [facility] [address] Performing Lab: [facility] [address] [facility] [address] MICROALBUMIN/ CREATININE RATIO 354.2 mg/g H 0-29.9 MICROALBUMIN, QUANTITATIVE 103.3 mg/dL RR UNAVAIL CREATININE URINE 291.68 mg/dL Aug 08, 2024 10:59 AM [facility] VITAMIN B12 Specimen Type: SERUM No comment entered. Ordering Provider: HORTENCIA VERDUZCO GRACIELA Report Released Date/Time: Aug 08, 2024 10:54 AM Reporting Lab: [facility] [address] [facility] [address] Performing Lab: [facility]ITAL[facility] [address] [facility] [address] VITAMIN B12 1849 pg/mL H 200-900 Aug 08, 2024 10:59 AM [facility] LIPID PANEL FASTING Specimen Type: SERUM No comment entered. Ordering Provider: HORTENCIA VERDUZCO Report Released Date/Time: Aug 08, 2024 10:54 AM Reporting Lab: [facility]ITALR[facility]ERN [facility]ITALUSE[facility] [address] [facility] [address] Performing Lab: [facility] [address] [facility] [address] CHOLESTEROL 178 mg/dL TRIGLYCERIDE 97 mg/dL 0-150 LDL calculated 97 mg/dL 0-129 CHOL/HDL 2.9 HDL CHOLESTEROL 62 mg/dL H 40-60 Aug 08, 2024 10:59 AM [facility] HEMOGLOBIN A1C PANEL Specimen Type: BLOOD [...] Aug 08, 2024 10:54 AM Reporting Lab: [facility]N [facility]ITALUSE[facility] [address] [facility] [address] Performing Lab: [facility] [address] [facility] [address] HEMOGLOBIN A1C 5.2 4.0-5.6 Aug 08, 2024 10:59 AM [facility] BASIC METABOLIC PANEL (fasting) Specimen Type: SERUM No comment entered. Ordering Provider: HORTENCIA VERDUZCO Report Released Date/Time: Aug 08, 2024 10:54 AM Reporting Lab: [facility] [address] [facility] [address] Performing Lab: [address] [place] [address] UREA NITROGEN 22 mg/dL 7-25 GLUCOSE 91 mg/dL 65-100 SODIUM 138 mmol/L 135-145 POTASSIUM 4.8 mmol/L 3.5-5.0 CHLORIDE 105 mmol/L 100-110 CO2 25 meq/L 20-30 CREATININE, Serum 0.99 mg/dL 0.50-1.40 eGFR(CKD-EPI 2020) 77 mL/min >60 Aug 08, 2024 10:59 AM [facility] LIVER FUNCTION Specimen Type: SERUM No comment entered. Ordering Provider: HORTENCIA VERDUZCO GRACIELA Report Released Date/Time: Aug 08, 2024 10:54 AM Reporting Lab: [address] [address] Performing Lab: [address] [address] PROTEIN,TOTAL 6.7 g/dL 6.0-8.3 ALBUMIN 3.4 g/dL L 3.5-5.0 ALKALINE PHOSPHATASE 151 U/L H 40-150 AST 17 U/L 5-34 ALT 8 U/L BILIRUBIN, TOTAL 0.5 mg/dL 0.2-1.2 Aug 08, 2024 10:59 AM [facility] TSH Specimen Type: SERUM No comment entered. Ordering Provider: HORTENCIA VERDUZCO GRACIELA Report Released Date/Time: Aug 08, 2024 10:54 AM Reporting Lab: [facility] [address] Performing Lab: [address] [address] TSH 1.93 u[IU]/mL 0.35-5.00 Aug 08, 2024 10:59 AM [facility] PSA Specimen Type: SERUM No comment entered. Ordering Provider: HORTENCIA VERDUZCO GRACIELA Report Released Date/Time: Aug 08, 2024 10:54 AM Reporting Lab: [address] [address] Performing Lab: [facility] [address] [facility] [address] PSA 30.59 ng/mL H 0.00-4.00 Aug 08, 2024 10:59 AM [facility] CBC AND DIFF (AUTO) Specimen Type: BLOOD No comment entered. Ordering Provider: HORTENCIA VERDUZCO Report Released Date/Time: Aug 08, 2024 10:54 AM Reporting Lab: [facility] [address] [facility] [address] Performing Lab: [facility] [address] [facility] [address] WBC 7.81 10*3/uL 4.50-11.00 RBC 4.88 10*6/uL [...] ABDOMEN AND PELVIS WITH CONTRAST: JAKE DUGAN [id number] -[id number] Ex Date: AUG 16, 2024@14:04 Req Phys: NOLAN VERDUZCO Pat Loc: CWM/SO/PACT 9 (Req'g Loc) Img Loc: [place]/CT Service: [place] [address] (Case [id number] COMPLETE) CT ABDOMEN AND PELVIS WITH CONTRA(CT Detailed) CPT:68012 Contrast Media : Non-ionic Iodinated Reason for Study: prostate CA Clinical History: Report Status: Verified Date Reported: AUG 16, 2024 Date Verified: AUG 16, 2024 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 READING PHYSICIAN: Kwabena Perez M.D. -[phone] 08/16/2024 20:18 [facility] [phone] (For Medical Practitioner Use Only) Attention Patients / Veterans: If you have questions or concerns about these test results, please contact your ordering provider or primary care team. Primary Diagnostic Code: POSSIBLE MALIGNANCY Primary Interpreting Staff: RADIOLOGY,OUTSIDE SERVICE, Staff Physician / RADIOLOGY,OUTSIDE SERVICE [facility] Encounter Notes: All associated encounter notes This section contains the clinical notes associated to the Encounter. Date/Time Encounter Note(s) Provider Source Jul 18, 2024 04:55 PM NONVA NOTE: [facility] TITLE: [facility] PRESENTING CARE COORD PLAN STANDARD TITLE: NONVA NOTE DATE OF NOTE: JUL 18, 2024@16:55 ENTRY DATE: JUL 18, 2024@16:56:09 AUTHOR: IKE BRODY EXP COSIGNER: URGENCY: STATUS: COMPLETED Emergency Notification Intake Date Presenting to the Facility: May Method of Contact: Notified from ECR worklist Notification ID: [id number] [facility] Referral #: [id number] [facility] Hospital Name: Hospital: [facility] Address: City: [place] State: [place] Zip Code: Phone : [facility] Facility Point of Contact: Name: Alfonzo Phone: Chief complaint: Diff Urinating Primary Diagnosis: Disposition Discharged Date of discharge: May Discharge to Comment: ER Only /mariana/ IKE MCINTYRE Signed: 07/18/2024 16:57 Receipt Acknowledged By: * AWAITING SIGNATURE * BLANCA ARELLANO * AWAITING SIGNATURE * RORO OSBORN * AWAITING SIGNATURE * SARAH YANEZ * AWAITING SIGNATURE * TIMA JEFFERSON DAWN MARIE [place]
--- OUTSIDE RECORDS SUMMARY | 2024-09-07 15:30 | XMS_ITS ---
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 Organization Department [place] Address [address] [place] [address] Care Team Providers Care Chief Dog License Inspector Name Role Phone ROWENA ROY Primary [...] Segal's Name Patient's Relationship to Policy Segal [facility] ([facility]) MEDIC[facility] ADVANTAGE [place] IN[place] - [place] Sep 21, 2023 [id number] [phone] GENET DUGAN S PATIENT [facility] (WNR) MEDICARE ADVANTAGE [facility] Sep 21, 2023 [id number] [phone] DUGAN,GENET S PATIENT [place]KY MEDICAID H[place] PLAN May 22, 2022 MEDICAI D [id number] MARVIN DUGANI S PATIENT MEDICARE (WN) MEDICARE (M) PART B May 22, 2022 PART B [id number] DUGAN,GENET S PATIENT MEDICARE (WNR) MEDICARE (M) PART A Feb 19, 2009 PART A [id number] DUGAN,GENET S PATIENT MEDICARE PART D (WNR) MEDICARE (M) PART D Jul 22, 2022 PART D [id number] [id number] GENET DUGAN PATIENT [facility] (WNR) MEDICARE ADVANTAGE [facility] (WNR) Sep 21, 2022 [id number] GENET DUGAN PATIENT [facility] MCR (WNR) MEDICARE ADVANTAGE MCR (WNR) Sep 21, 2022 [id number] GENET DUGAN PATIENT Selected Encounter This [...] 09, 2024 09:00 AM AMBULATORY - MEDICINE CT C [place] [facility] Aug 16, 2024 12:00 PM AMBULATORY - NONE [place] [facility] Aug 22, 2024 11:20 AM AMBULATORY - MEDICINE CT C [place] [facility] Aug 24, 2024 11:00 AM [facility] Sep 01, 2024 11:00 AM AMBULATORY - NONE [place] [facility] Sep 07, 2024 03:00 PM AMBULATORY - MEDICINE CT C [place] [facility] Dec 13, 2024 01:30 PM [facility] Jan 02, 2025 10:00 AM AMBULATORY - MEDICINE [facility] [place] [place] [facility] Active, Pending, and Scheduled Orders [...] 09:40 AM Consult Order COMMUNITY CARE-UROLOGY Cons Processing Clerk's Choice CT CNTRL [place] [facility] Advance Directives: All historical and [...] 2024 12:43 PM NONVA NOTE: LOCAL TITLE: [facility] CARE COORD PLAN STANDARD TITLE: NONVA NOTE DATE OF NOTE: JUL 07, 2024@12:43 ENTRY DATE: JUL 07, 2024@12:43:08 AUTHOR: IKE BRODY EXP COSIGNER: URGENCY: STATUS: COMPLETED Emergency Notification Intake Date Presenting to the Facility: Apr Method of Contact: Notified from ECR worklist Notification ID: [id number] [facility] Referral #: [id number] [facility] Hospital Name: Hospital: [facility] Address: City: [place] State: [place] Zip Code: Phone : [facility] Facility Point of Contact: Name: Alfonzo Phone: Chief complaint: abd pain Primary Diagnosis: Disposition Discharged Date of discharge: Apr Discharge to Comment: ER Only /mariana/ IKE MCINTYRE Signed: 07/07/2024 12:45 Receipt Acknowledged By: * AWAITING SIGNATURE * BLANCA ARELLANO * AWAITING SIGNATURE * RORO OSBORN * AWAITING SIGNATURE * SARAH YANEZ * AWAITING SIGNATURE * TIMA JEFFERSON DAWN MARIE [place]
--- OUTSIDE RECORDS SUMMARY | 2024-09-07 15:30 | XMS_ITS ---
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 Organization Department [place] Address [address] [place] [address] Care Team Providers Care Pan Greaser Name Role Phone ROWENA ROY Primary Care [...] Policy Segal [facility] ([facility]) MEDICARE ADVANTAGE [place] - [place] Sep 21, 2023 [id number] [phone] GENET DUGAN S PATIENT [facility] (WNR[facility] MEDIC[facility] ADVANTAGE [facility]) Sep 21, 2023 [id number] [phone] DUGAN,GENET S PATIENT [place] MEDICAID H[place] PLAN May 22, 2022 MEDICAI D [id number] MARVIN DUGANI S PATIENT MEDICARE (WN) MEDICARE (M) PART B May 22, 2022 PART B [id number] DUGAN,GENET S PATIENT MEDICARE (WNR) MEDICARE (M) PART A Feb 19, 2009 PART A [id number] DUGAN,GENET S PATIENT MEDICARE PART D (WNR) MEDICARE (M) PART D Jul 22, 2022 PART D [id number] [id number] GENET DUGAN PATIENT [facility] (WNR) MEDICARE ADVANTAGE MCR (WNR) Sep 21, 2022 [id number] GENET DUGAN PATIENT [facility] (WNR) MEDICARE ADVANTAGE MCR (WNR) Sep 21, 2022 [id number] GENET DUGAN PATIENT Selected Encounter This section [...] - MEDICINE [place] [facility] Aug 09, 2024 09:00 AM AMBULATORY - MEDICINE [place] [facility] Aug 16, 2024 12:00 PM AMBULATORY - NONE [place] [facility] Aug 22, 2024 11:20 AM AMBULATORY - MEDICINE [place] [facility] Aug 24, 2024 11:00 AM [facility] Sep 01, 2024 11:00 AM AMBULATORY - NONE [place] [facility] Sep 07, 2024 03:00 PM AMBULATORY - [facility]IC[facility] Advance Directives: All historical and [...] REQUIRED Electronically Filed: 07/28/2024 by: BRANDIE WEINER GAME MANAGER BRANDIE WEINER [facility]
--- OUTSIDE RECORDS SUMMARY | 2024-09-07 15:31 | XMS_ITS | Encounter Summary ---
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 Address [address] [place] [address] Care Team Providers Care Classifier Tender Name Role Phone ROWENA ROY Primary Care [...] Relationship to Policy Segal [facility] (R) MEDICARE ADVANTAGE [place] IN[place] - [place] Sep 21, 2023 [id number] A [id number] [phone] GENET DUGAN S [facility] ([facility]IC[facility] ADVANTAGE [facility]) Sep 21, 2023 [id number] DUGAN,GENET S PATIENT [place] MEDICAID H[place] PLAN May 22, 2022 MEDICAI D [id number] MARVIN DUGANI S PATIENT MEDICARE (WN) MEDICARE (M) PART B May 22, 2022 PART B [id number] [id number] [phone] DUGAN,GENET S PATIENT MEDICARE (WNR) MEDICARE (M) PART A Feb 19, 2009 PART A [id number] DUGAN,GENET S PATIENT MEDICARE PART D (WNR) MEDICARE (M) PART D Jul 22, 2022 PART D [id number] [id number] GENET DUGAN PATIENT [facility] (WNR) MEDICARE ADVANTAGE MCR (WNR) Sep 21, 2022 [id number] GENET DUGAN PATIENT [facility] MCR (WNR) MEDICARE ADVANTAGE MCR (WNR) Sep 21, 2022 [id number] GENET DUGAN PATIENT Selected Encounter This [...] activities for the patient from all [place] treatmentfac[facility]. This section includes future appointments [...] - MEDICINE [place] [facility] Aug 16, 2024 12:00 PM AMBULATORY - NONE [place] [facility] Aug 22, 2024 11:20 AM AMBULATORY - MEDICINE [place] C [place] [facility] Aug 24, 2024 11:00 AM AMBULATORY [facility] Sep 01, 2024 11:00 AM AMBULATORY - NONE [place] [facility] Sep 07, 2024 03:00 PM AMBULATORY - MEDICINE [place] C [place] [facility] Dec 13, 2024 01:30 PM AMBULATORY - [facility]INE [facility] Advance Directives: All historical and current Section Date Range: From patient's date of to the date document was created. This section includes ALL of a patient's completed or amended VA Advance and Rescinded Directives. The entries below indicate that a directive exists for the patient, but an actual copy is not included with this document. The data comes from all VA facilities. Date Advance Directives Provider Source Apr 04, 2024 ADVANCE DIRECTIVE CHAPINCITO DEE [facility] Encounter Notes: All associated encounter [...] VINCE SEARS LICENSED PRACTICAL NURSE VINCE SEARS [place] CNTL [facility]
--- OUTSIDE RECORDS SUMMARY | 2024-09-07 15:31 | XMS_ITS ---
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 Organization [place] Address [address] [place] [address] Care Team Providers Care Data Center Technician Name Role Phone ROWENA ROY Primary [...] Segal's Name Patient's Relationship to Policy Segal [facility] (R) MEDIC[facility] ADVANTAGE [place] INDIV [place] - [place] Sep 21, 2023 [id number] [phone] GENET DUGAN S PATIENT [facility]IC[facility] ADVANTAGE [facility] Sep 21, 2023 [id number] [phone] DUGAN,GENET S PATIENT HUSKY MEDICAID H[place] PLAN May 22, 2022 MEDICAI D [id number] MARVIN DUGANI S PATIENT MEDICARE (WN) MEDICARE (M) PART B May 22, 2022 PART B [id number] DUGAN,GENET S PATIENT MEDICARE (WNR) MEDICARE (M) PART A Feb 19, 2009 PART A [id number] DUGAN,GENET S PATIENT MEDICARE PART D (WNR) MEDICARE (M) PART D Jul 22, 2022 PART D [id number] GENET DUGAN PATIENT [facility] (WNR) MEDICARE ADVANTAGE [facility] (WNR) Sep 21, 2022 [id number] GENET DUGAN PATIENT [facility] MCR (WNR) MEDICARE ADVANTAGE MCR (WNR) Sep 21, 2022 [id number] GENET DUGAN PATIENT Selected Encounter This [...] activities for the patient from all [place] treatmentfacilflorala [facility]. This section includes future appointments and future orders which are active, pending or scheduled. Future Appointments This section includes appointments that were scheduled to occur 6 months from the date of the Encounter, up to a maximum of 20 appointments. The data comes from all [place] treatment [facility]. Appointment Date/Time Appointment Type Appointme nt Facility Name Aug 09, 2024 09:00 AM AMBULATORY - [facility] [place] [facility] Aug 16, 2024 12:00 PM AMBULATORY - NONE [place] [facility] Aug 22, 2024 11:20 AM AMBULATORY - MEDICINE [place] [facility] Aug 24, 2024 11:00 AM [facility] Sep 01, 2024 11:00 AM AMBULATORY - NONE [place] [facility] Sep 07, 2024 03:00 PM [facility] [place] [facility] Dec 13, 2024 01:30 PM AMBULATORY - MEDICINE [place] Active, Pending, [...] 09:40 AM Consult Order COMMUNITY CARE-UROLOGY Cons Oncology Radiation Physician's Choice [facility] Advance Directives: All historical and current [...] REQUIRED Electronically Filed: 08/04/2024 by: SUNITA MCDONOUGH [facility]
--- OUTSIDE RECORDS SUMMARY | 2024-09-07 15:31 | XMS_ITS ---
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 Address [address] [place] [id number] Care Team Providers Care Continuing Education Instructor Name Role Phone ROWENA ROY Primary Care [...] Segal's Name Patient's Relationship to Policy [facility] [place] IDUAL - [place] Sep 21, 2023 [id number] [phone] GENET DUGAN S [facility]) [facility] ADVANTAGE [facility] ([facility]) Sep 21, 2023 [id number] [phone] DUGAN,GENET S PATIENT HUSKY MEDICAID H[place]KY PLAN May 22, 2022 MEDICAI D [id number] MARVIN DUGANI S PATIENT MEDICARE (WN) MEDICARE (M) PART B May 22, 2022 PART B [id number] DUGAN,GENET S PATIENT MEDICARE (WNR) MEDICARE (M) PART A Feb 19, 2009 PART A [id number] DUGAN,GENET S PATIENT MEDICARE PART D (WNR) MEDICARE (M) PART D Jul 22, 2022 PART D [id number] [phone] GENET DUGAN PATIENT [facility] (WNR) MEDICARE ADVANTAGE [facility] (WNR) Sep 21, 2022 [id number] [phone] [facility] MCR (WNR) MEDICARE ADVANTAGE MCR (WNR) Sep 21, 2022 [id number] GENET DUGAN PATIENT Selected Encounter This section includes the information on record at [place] for the Encounter. Date/Time Encounter Type Encounter Description Reason Pro vider Source Aug 04, 2024 03:48 PM Outpatient Encounter COMMUNITY CARE CONSULT IHE Encounter Template Text not used by [place] Plan of Treatment: Future Appointments (+ 6 months) and Future Tests (+/- 45 days) The Plan of Treatment section includes future care activities for the patient from all [place] treatmentfacilities. This section includes future appointments and [...] - MEDICINE [place] [facility] Aug 16, 2024 12:00 PM AMBULATORY - NONE [place] [facility] [facility] Aug 22, 2024 11:20 AM AMBULATORY - [place]ICINE [place] [facility] Aug 24, 2024 11:00 AM [facility] Sep 01, 2024 11:00 AM AMBULATORY - NONE [place] [facility] Sep 07, 2024 03:00 PM AMBULATORY - [place]ICINE [place] [facility] Dec 13, 2024 01:30 PM [facility] Jan 02, 2025 10:00 AM AMBULATORY - MEDICINE [facility] [place] [facility] [...] of theEncounter. The data comes from all [place] treatment facilities. Test Date/Time Test Type Test Details Facility Name Aug 09, 2024 09:40 AM Consult Order COMMUNITY CARE-UROLOGY Cons Hotel Operations Manager's Choice [facility] Lab Results: +/- 30 days of the encounter This section includes the Chemistry and Hematology Lab Results on record with [place] for the patient. Radiology Reports and Pathology Reports are provided separately, in subsequent sections. Lab Results This section contains the Chemistry/Hematology Results that were resulted 30 days before or 30 daysafter the date of the Encounter. Date/Time Source Result Type Result - Unit Interpretation Reference Range Comment Aug 24, 2024 11:28 AM RESERVE CBC AND DIFF (AUTO) Specimen Type: BLOOD No comment entered. Ordering Provider: ROWENA ROY Report Released Date/Time: Aug 24, 2024 11:07 AM Reporting Lab: [address] [address] Performing Lab: [address] [address] WBC 8.84 10*3/uL 4.50-11.00 RBC 4.72 10*6/uL [...] 10*3/uL 0.00-0.00 Aug 24, 2024 11:28 AM [facility] MICROSCOPIC AUTOMATED, URINE Specimen Type: URINE Comment: If Glucose = >500 and Ketones are positive, please alert the Physician. Ordering Provider: MONICA VERDUZCO Report Released Date/Time: Aug 09, 2024 09:43 AM Reporting Lab: [address] [address] Performing Lab: [address] [address] UA WBC 0-5 /[HPF] 0-5 UA BACTERIA 1+ /[HPF] NoneObs UA TRIPLE PHOSPHATE CRYSTALS MODERATE /[HPF] Not Established UA RBC 6-10 /[HPF] H 0-3 Aug 24, 2024 11:28 AM [facility] URINALYSIS Specimen Type: URINE Comment: If Glucose = >500 and Ketones are positive, please alert the Physician. Ordering Provider: MONICA VERDUZCO Report Released Date/Time: Aug 09, 2024 09:43 AM Reporting Lab: [address] [address] Performing Lab: [address] [address] UA COLOR Light-Brown Yellow UA APPEARANCE Turbid Clear UA GLUCOSE Normal mg/dL Negative UA KETONES NEGATIVE mg/dL Negative UA BLOOD LARGE mg/dL Negative UA PROTEIN 100 mg/dL Negative UA NITRITE NEGATIVE mg/dL Negative UA BILIRUBIN NEGATIVE mg/dL Negative UA SPECIFIC GRAVITY 1.007 L 1.016-1.022 UA pH 8.5 5.0-9.0 UA UROBILINOGEN Normal mg/dL <2.0 UA LEUKOCYTE LARGE Negative Aug 08, 2024 10:59 AM [facility] VITAMIN D 25-OH (Therapy monitor) Specimen [...] For additional information, please refer to [email or web address] [email or web address].com/faq/FAQ 199 (This link is being provided for informational/ educational purposes only.) This test was developed and its analytical performance characteristics have been determined by [employer] [place], [place]. It has not been cleared or approved by the U.S. Food and Drug Administration. This assay has been validated pursuant to the CLIA regulations and is used for clinical purposes. This test was developed and its analytical performance characteristics have been determined by [employer] [place], [place]. It has not been cleared or approved by the U.S. Food and Drug Administration. This assay has been validated pursuant to the CLIA regulations and is used for clinical purposes. Test Performed by [facility], [employer] [facility], [address] [place] [address] Dov Bahena M.D., Ph.D., Director of Laboratories , CLIA [id number] TEST PERFORMED AT: , Ordering Provider: MONICA VERDUZCO Report Released Date/Time: Aug 08, 2024 10:54 AM Reporting Lab: [facility] [address] [facility] [address] Performing Lab: [facility] [address] [address] VITAMIN D, 25-OH, TOTAL 51 ng/mL 30-100 VITAMIN D, 25-OH, D3 51 ng/mL VITAMIN D, 25-OH, D2 <4 ng/mL Aug 08, 2024 10:59 AM [facility] HCS FOLATE (WROX) Specimen Type: SERUM No comment entered. Ordering Provider: MONICA VERDUZCO Report Released Date/Time: Aug 08, 2024 10:54 AM Reporting Lab: [place] [facility] [address] [facility] [address] Performing Lab: [facility] [address] [facility] [address] FOLATE (WROX) 4.07 ng/mL L >5.2 Aug 08, 2024 10:59 AM [facility] MICROALBUMIN CREATININE RATIO PANEL Specimen Type: URINE No comment entered. Ordering Provider: MONICA VERDUZCO Report Released Date/Time: Aug 08, 2024 10:54 AM Reporting Lab: [facility]ITALRBULL[facility]PITALTRN [facility]ETS [facility] [address] [facility] [address] Performing Lab: [facility]ITALRBULL[facility] HOSPITALTRN [facility] SYSTEMUSETS [address] [address] MICROALBUMIN/ CREATININE RATIO 354.2 mg/g H 0-29.9 MICROALBUMIN, QUANTITATIVE 103.3 mg/dL RR UNAVAIL CREATININE URINE 291.68 mg/dL Aug 08, 2024 10:59 AM [facility] VITAMIN B12 Specimen Type: SERUM No comment entered. Ordering Provider: MONICA VERDUZCO Report Released Date/Time: Aug 08, 2024 10:54 AM Reporting Lab: [facility] TRN [facility] [address] [facility] [address] Performing Lab: [facility]ITALRBULLOCK [facility] HOSPITALTRN [facility] SYSTEMUSETS [address] [address] VITAMIN B12 1849 pg/mL H 200-900 Aug 08, 2024 10:59 AM [facility] LIPID PANEL FASTING Specimen Type: SERUM No comment entered. Ordering Provider: MONICA VERDUZCO Report Released Date/Time: Aug 08, 2024 10:54 AM Reporting Lab: [facility]ITALRBULL[facility] HOSPITALTRN [facility] SYSTEMUSETS [address] [address] Performing Lab: [facility]ITALRBULL[facility]OSPITALTRN [facility]USETS [address] [address] CHOLESTEROL 178 mg/dL TRIGLYCERIDE 97 mg/dL 0-150 LDL calculated 97 mg/dL 0-129 CHOL/HDL 2.9 HDL CHOLESTEROL 62 mg/dL H 40-60 Aug 08, 2024 10:59 AM [facility] BASIC METABOLIC PANEL (fasting) Specimen Type: SERUM No comment entered. Ordering Provider: MONICA VERDUZCO Report Released Date/Time: Aug 08, 2024 10:54 AM Reporting Lab: [facility] [address] [facility] [address] Performing Lab: [facility] [address] [facility] [address] UREA NITROGEN 22 mg/dL 7-25 GLUCOSE 91 mg/dL 65-100 SODIUM 138 mmol/L 135-145 POTASSIUM 4.8 mmol/L 3.5-5.0 CHLORIDE 105 mmol/L 100-110 CO2 25 meq/L 20-30 CREATININE, Serum 0.99 mg/dL 0.50-1.40 eGFR(CKD-EPI 2020) 77 mL/min >60 Aug 08, 2024 10:59 AM [facility] LIVER FUNCTION Specimen Type: SERUM No comment entered. Ordering Provider: MONICA VERDUZCO Report Released Date/Time: Aug 08, 2024 10:54 AM Reporting Lab: [facility] [address] [facility] [address] Performing Lab: [address] [address] PROTEIN,TOTAL 6.7 g/dL 6.0-8.3 ALBUMIN 3.4 g/dL L 3.5-5.0 ALKALINE PHOSPHATASE 151 U/L H 40-150 AST 17 U/L 5-34 ALT 8 U/L BILIRUBIN, TOTAL 0.5 mg/dL 0.2-1.2 Aug 08, 2024 10:59 AM [facility] HEMOGLOBIN A1C PANEL Specimen Type: [...] Aug 08, 2024 10:54 AM Reporting Lab: [facility] TRN [facility] [address] [facility] [address] Performing Lab: [facility]ITALREN[facility] SYSTEM[facility] [address] [facility] [address] HEMOGLOBIN A1C 5.2 4.0-5.6 Aug 08, 2024 10:59 AM [facility]ITALRL [facility]USE[facility] TSH Specimen Type: SERUM No comment entered. Ordering Provider: MONICA VERDUZCO Report Released Date/Time: Aug 08, 2024 10:54 AM Reporting Lab: [facility]ITALRBULL[facility] HOSPITALTRN [facility] SYSTEMUSETS [facility] [address] [facility] [address] Performing Lab: [facility]ITALREN[facility] SYSTEMUSE[address] [address] TSH 1.93 u[IU]/mL 0.35-5.00 Aug 08, 2024 10:59 AM [facility]ITALR[facility] PSA Specimen Type: SERUM No comment entered. Ordering Provider: MONICA VERDUZCO Report Released Date/Time: Aug 08, 2024 10:54 AM Reporting Lab: [facility]ITALRL [facility] SYSTEMUSETS [facility] [address] [facility] [address] Performing Lab: [facility]ITALREN[facility] SYSTEMUSETS [address] [address] PSA 30.59 ng/mL H 0.00-4.00 Aug 08, 2024 10:59 AM [facility] CBC AND DIFF (AUTO) Specimen Type: BLOOD No comment entered. Ordering Provider: MONICA VERDUZCO Report Released Date/Time: Aug 08, 2024 10:54 AM Reporting Lab: [facility]ITALR[facility] SYSTEM[facility] [address] [facility] [address] Performing Lab: [facility]ITALREN[facility] SYSTEMUSETS [address] [address] WBC 7.81 10*3/uL 4.50-11.00 RBC 4.88 10*6/uL [...] this document. The data comes from all [place] facilities. Date Advance Directives Provider Source Apr [...] the Encounter. The data comes from all [place] treatment facilities. Date/Time Radiology Report Provider Source Sep 01, 2024 10:[address] W/O CONT: JAKE DUGAN [id number] -1945 M Exm Date: SEP 01, 2024@10:54 Req Phys: LUBA,NOLAN Pat Loc: CWM/SO/PACT 9 (Req'g Loc) Img Loc: NHM/CT Service: Unknown [place] [facility] [place] [address] (Case [id number] COMPLETE) CT THORAX W/O CONT (CT Detailed) CPT:74993 Reason for Study: LDCT Clinical History: lung CA screen/surveillance as per protocol Report Status: Verified Date Reported: SEP 01, 2024 Date Verified: SEP 01, 2024 Manager Coding E-Sig:/ES/STARR MCDANIEL JR Report: Study: Noncontrast CT scan of the chest. Comparison: None. TECHNIQUE: Contiguous axial [address] imaging is performed from the lung apices through the lung bases without the administration of intravenous contrast as per standard department protocol. Subsequently, sagittal and coronal reformats were generated. The lack of intravenous contrast inherently limits the evaluation of hilar structures, vascular structures, and abnormal enhancement patterns. Lower than standard dose was utilized limiting sensitivity for fine parenchymal detail. Dose Parameters: CTDI(vol): 1.9 mGy. DLP: 61.6 mGy*cm. Findings: Chest: Lungs: Mild centrilobular emphysematous changes with associated scattered parenchymal scarring is present in the lungs, most pronounced in the pulmonary apices. There are 2 numerous to count solid predominantly rounded and well-circumscribed pulmonary nodules in all lobes of the lungs mostly measuring 6 mm or less. A dominant right lower lobe solid, ovoid, well-circumscribed right lower lobe 7.7 mm pulmonary nodule is present, 8-161. Several of these nodules are located on the major fissures and likely represent intrapulmonary lymph nodes. The others are indeterminant. No acute pulmonary process or pleural effusion is identified. The tracheobronchial tree is patent. No pneumothorax. Fleischner Society 2017 Guidelines for Management of Incidentally Detected Pulmonary Nodules in Adults: SOLID NODULE(S) Nodule(s) less than 6 mm: Low-risk patient - No routine follow-up. High risk patient - Optional CT at 12 months. Single nodule 6-8 mm: Low-risk patient - CT at 6-12 months, then consider CT at 18-24 months. High-risk patient - CT at 6-12 months, then CT at 18-24 months. Multiple nodules 6-8 mm: Low-risk patient - CT at 3-6 months, then consider CT at 18-24 months. High-risk patient - CT at 3-6 months, then at 18-24 months. Single nodule greater than 8 mm: Low and high-risk patients - Consider CT, PET/CT or tissue sampling at 3 months. Multiple nodules greater than 8 mm: Low-risk patient - CT at 3-6 months, then consider CT at 18-24 months. High-risk patient - CT at 3-6 months, then at 18-24 months. NOTES - Guidelines refer to incidentally encountered lung nodules detected at CT in adult patients who are at least 35 years old. These guidelines are not intended for use in patient with known primary cancer or who are at risk for metastases, nor are they intended for use in immunocompromised patients who are at risk for infection. Nodule size defined as the average of length and width. Low risk defined as minimal or absent history of smoking and of other known risk factors. High-risk defined as a history of smoking or other known risk factors. Source: Guidelines for Management of Incidental Pulmonary Nodules Detected on CT Images From the Fleischner Society 2017. Rowena Sequeira, Mukund Luevano, et al. Mediastinum/hilum/lymph nodes: Normal. No mediastinal lymphadenopathy by size criteria. No axillary lymphadenopathy by size criteria. Heart and pericardium: The heart size is normal. No pericardial effusion. Vessels: Atherosclerotic changes of the aorta and coronary arteries. Normal caliber thoracic aorta. Chest wall and lower neck: Normal. Included thyroid is normal. Upper abdomen: Upper pole simple cyst of the left kidney. Otherwise, the visualized abdominal structures appear normal. Skeletal: Normal age-related degenerative changes. Impression: Too numerous to count bilateral small pulmonary nodules with single dominant right lower lobe pulmonary nodule. If available, comparison with any prior outside CT chest imaging is recommended to assess for interval change. Otherwise, follow-up may be as detailed above, given patient's age almost outside the parameters for lung cancer screening. Primary Diagnostic Code: Significant Abnormality Attention Needed Secondary Diagnostic Codes: POSSIBLE MALIGNANCY Primary Interpreting Staff: STARR MCDANIEL JR, Radiologist (Manager Coding) /STARR HERNANDEZ JR [facility] Aug 16, 2024 02:[address] ABDOMEN AND PELVIS WITH CONTRAST: JAKE DUGAN [id number] -[id number] M Exm Date: AUG 16, 2024@14:04 Req Phys: LUBA,NOLAN Pat Loc: CWM/SO/PACT 9 (Req'g Loc) Img Loc: NHM/CT Service: [place] [address] (Case [id number] COMPLETE) CT ABDOMEN AND PELVIS WITH CONTRA(CT Detailed) CPT:07200 Contrast Media : Non-ionic Iodinated Reason for Study: prostate CA Clinical History: Report Status: Verified Date Reported: AUG 16, 2024 Date Verified: AUG 16, 2024 Manager Coding E-Sig: Report: CT ABDOMEN AND PELVIS WITH CONTRAST HISTORY: prostate CA COMPARISON: 03/14/2024 TECHNIQUE: CT of the abdomen and pelvis with multiplanar reformats was performed at the local [place] facility. A contrast-enhanced series was obtained in the portal venous phase. 350 images were received by the [place] National Teleradiology Program (NTP) for interpretation. RADIATION [...] tumor infiltration. READING PHYSICIAN: Kwabena Perez M.D. -[id number] 08/16/2024 20:18 [facility] National Teleradiology Program [phone] (For Medical Practitioner Use Only) Attention Patients / Veterans: If you have questions or concerns about these test results, please contact your ordering provider or primary care team. Primary Diagnostic Code: POSSIBLE MALIGNANCY Primary Interpreting Staff: RADIOLOGY,OUTSIDE SERVICE, Staff Physician / RADIOLOGY,OUTSIDE SERVICE [place] [facility] Pathology Reports: +/- 30 days [...] the Encounter. The data comes from all [place] treatment facilities. Date/Time Pathology Report Provider Source Aug 24, 2024 11:28 AM LR MICROBIOLOGY RE PORT: Reporting Lab: [place] CNTL WSTRSaul MCRAE [facility] [CLIA# [id number]] [address] [place] [id number] Accession [UID]: [id number] [[id number]] Received: Aug 24, 2024@11:28 Collection sample: URINE CLEAN CATCH Collection date: Aug 24, 2024 11:28 Site/Specimen: URINE Provider: NOLAN VERDUZCO Comment on specimen: POSITIVE CULTURE RESULTS MAY NOT REPRESENT CLINICAL INFECTION. CONSIDER NEED FOR ANTIBIOTICS IN THE CONTEXT OF UTI SYMPTOMS. Test(s) ordered: URINE CULTURE([facility]).......... completed: Aug 29, 2024 08:33 * BACTERIOLOGY FINAL REPORT => Aug 29, 2024 08:32 TECH CODE: [id number] CULTURE RESULTS: 1. KLEBSIELLA OXYTOCA/RAOULTELLA ORNITHINOLYTICA - [...] Performing Laboratory: Klebsiella Oxytoca/raoultella Ornithinolytica Performed By: [facility] [CLIA# [id number]] [address] [place] [address] Pseudomonas Aeruginosa Performed By: [facility] [CLIA# [id number]] [address] [place] [address] Bact Report Remark #1 Performed By: [facility] [CLIA# [id number]] [address] [place] [address] Bact Report Remark #2 Performed By: [facility] [CLIA# [id number]] [address] [place] [address] ENRIQUETA FLORES RESERVE Encounter Notes: All associated encounter notes This section contains the clinical notes associated to the Encounter. Date/Time Encounter Note(s) Provider Source Aug 04, 2024 03:48 PM NONVA NOTE: [facility] TITLE: [facility] CARE COORD PLAN STANDARD TITLE: NONVA NOTE DATE OF NOTE: AUG 04, 2024@15:48 ENTRY DATE: AUG 04, 2024@15:48:11 AUTHOR: IKE BRODY EXP COSIGNER: URGENCY: STATUS: COMPLETED Emergency Notification Intake Date Presenting to the Facility: Jun Method of Contact: Notified from [employer] worklist Notification ID: [id number] [facility] Referral #: [id number] [facility] Name: Hospital: [facility] Address: City: [place]: [place] Zip Code: Phone : [facility] Point of Contact: Name: Alfonzo Phone: Chief complaint: bladder pain Primary Diagnosis: Disposition Discharged Date of discharge: Jun Discharge to Comment: ER Only /mariana/ IKE MCINTYRE Signed: 08/04/2024 15:58 Receipt Acknowledged By: 09/07/2024 08:43 /mariana/ Mariluz BASS,RN,[facility] TRANSFER/TRAVELING COORDINATOR IKE BRODY CHILHOWIE
--- OUTSIDE RECORDS SUMMARY | 2024-09-07 15:31 | XMS_ITS | Encounter Summary ---
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 ([place] Organization Department of [place] Address [address] [place] [address] Care Team Providers Care Yard Loader Operator Name Role Phone ROWENA ROY Primary [...] Patient's Relationship to Policy Segal [facility] (R) MEDICARE ADVANTAGE [place] INDIV IDUAL - [place] Sep 21, 2023 [id number] A [id number] [phone] GENET DUGAN S PATIENT [facility] (WNR) MEDICARE ADVANTAGE [facility] Sep 21, 2023 [id number] A [id number] [phone] DUGAN,GENET S PATIENT HUSKY MEDICAID HUSKY PLAN May 22, 2022 MEDICAI D [id number] MARVIN DUGANI S PATIENT MEDICARE (WN) MEDICARE (M) PART B May 22, 2022 PART B [id number] [phone] DUGAN,GENET S PATIENT MEDICARE (WNR) MEDICARE (M) PART A Feb 19, 2009 PART A [id number] [phone] DUGAN,GENET S PATIENT MEDICARE PART D (WNR) MEDICARE (M) PART D Jul 22, 2022 PART D [id number] GENET DUGAN PATIENT [facility] (WNR) MEDICARE ADVANTAGE [facility] (WNR) Sep 21, 2022 [id number] [phone] GENET DUGAN PATIENT [facility] MCR (WNR) MEDICARE ADVANTAGE MCR (WNR) Sep 21, 2022 [id number] GENET DUGAN PATIENT Selected Encounter This section includes the information on record at NH for the Encounter. Date/Time Encounter Type Encounter Description Reason Pro vider Source Jul 06, 2024 12:00 AM Outpatient Encounter COMMUNITY CARE CONSULT IHE Encounter Template Text not used by NH Plan of Treatment: Future Appointments (+ 6 [...] 09, 2024 09:00 AM AMBULATORY - MEDICINE [place] [facility] Aug 16, 2024 12:00 PM AMBULATORY - NONE [place] [facility] Aug 22, 2024 11:20 AM AMBULATORY - MEDICINE [place] C [place] [facility] Aug 24, 2024 11:00 AM [facility] Sep 01, 2024 11:00 AM AMBULATORY - NONE [place] [facility] Sep 07, 2024 03:00 PM AMBULATORY - MEDICINE [place] C [place] [facility] Dec 13, 2024 01:30 PM [facility] Jan 02, 2025 10:00 AM AMBULATORY - MEDICINE [facility] [place] [facility] Active, Pending, and Scheduled Orders This section includes a listing of several types of active, pending, and scheduled orders, including clinic medications orders, diagnostic test orders, procedure orders and consult orders; where the start date of the order is 45 days before the date of the Encounter or 45 days after the date of theEncounter. The data comes from all [place] treatment facilities. Test Date/Time Test Type Test Details Facility Name Aug 09, 2024 09:40 AM Consult Order COMMUNITY CARE-UROLOGY Cons Manager Primary's Choice [facility] Advance Directives: All historical and current Section Date Range: From patient's date of to the date document was created. This section includes ALL of a patient's completed or amended [place] Advance and Rescinded Directives. The entries below [...] VINCE SEARS LICENSED PRACTICAL NURSE VINCE SEARS [facility]
--- OUTSIDE RECORDS SUMMARY | 2024-09-07 15:31 | XMS_ITS | Encounter Summary ---
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 Organization Department of [place] Address [address] [place] [address] Care Team Providers Care Fiberglass Tube Molder Name Role Phone ROWENA ROY Primary Care [...] Segal's Name Patient's Relationship to Policy Segal [facility] (R) MEDICARE ADVANTAGE [place] INDIV IDUAL - [place] Sep 21, 2023 [id number] [phone] GENET DUGAN S PATIENT [facility] (WNR) MEDICARE ADVANTAGE [employer] ([facility]) Sep 21, 2023 [id number] [phone] DUGAN,GENET S PATIENT HUSKY MEDICAID HUSKY PLAN May 22, 2022 MEDICAI D [id number] MARVIN DUGANI S PATIENT MEDICARE (WN) MEDICARE (M) PART B May 22, 2022 PART B [id number] [phone] DUGAN,EGNET S PATIENT MEDICARE (WNR) MEDICARE (M) PART A Feb 19, 2009 PART A [id number] DUGAN,GENET S PATIENT MEDICARE PART D (WNR) MEDICARE (M) PART D Jul 22, 2022 PART D [id number] GENET DUGAN PATIENT [facility] (WNR) MEDICARE ADVANTAGE [employer] (WNR) Sep 21, 2022 [id number] GENET DUGAN PATIENT [facility] MCR (WNR) MEDICARE ADVANTAGE MCR (WNR) Sep 21, 2022 [id number] [phone] GENET DUGAN PATIENT Selected Encounter This section [...] 09, 2024 09:00 AM AMBULATORY - MEDICINE [place] [facility] Aug 16, 2024 12:00 PM AMBULATORY - NONE [place] [facility] Aug 22, 2024 11:20 AM AMBULATORY - MEDICINE [place] C [place] [facility] Aug 24, 2024 11:00 AM [facility] Sep 01, 2024 11:00 AM AMBULATORY - NONE [place] [facility] Sep 07, 2024 03:00 PM AMBULATORY - MEDICINE NM C [place] [facility] Dec 13, 2024 01:30 PM [facility] Jan 02, 2025 10:00 AM AMBULATORY - MEDICINE [facility] [place] [facility] Active, Pending, and Scheduled Orders [...] data comes from all [place] treatment facilities. Test Date/Time Test Type Test Details Facility Name Aug 09, 2024 09:40 AM Consult Order COMMUNITY CARE-UROLOGY Cons Manager Of Software's Choice [facility] Advance Directives: All historical and current [...] REQUIRED Electronically Filed: 08/02/2024 by: SUNITA MCDONOUGH [facility]
--- OUTSIDE RECORDS SUMMARY | 2024-09-07 15:32 | XMS_ITS | Encounter Summary ---
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 [place]) Organization [facility] ([place]) Address [address] [place] [address] Care Team Providers Care Animal Cruelty Investigator Name Role Phone ROWENA ROY Primary Care [...] Name Patient's Relationship to Policy Segal [facility] (R) MEDICARE ADVANTAGE [place] INDIV IDUAL - [place] Sep 21, 2023 [id number] [phone] GENET DUGAN S [facility] (WNR) MEDICARE ADVANTAGE [facility]) Sep 21, 2023 [id number] [phone] MARVIN DUGANI S PATIENT HUSKY MEDICAID HUSKY PLAN May 22, 2022 MEDICAI D [id number] GENET DUGAN S PATIENT MEDICARE ([facility]) MEDICARE (M) PART B May 22, 2022 PART B [id number] [id number] [phone] MARVIN DUGANI S PATIENT MEDICARE ([facility]) MEDICARE (M) PART A Feb 19, 2009 PART A [id number] DUGAN,GENET S PATIENT MEDICARE PART D (WNR) MEDICARE (M) PART D Jul 22, 2022 PART D [id number] [phone] GENET DUGAN PATIENT [facility] (WNR) MEDICARE ADVANTAGE [facility] (WNR) Sep 21, 2022 [id number] [phone] GENET DUGAN S PATIENT [facility] MCR (WNR) MEDICARE ADVANTAGE MCR (WNR) Sep 21, 2022 [id number] GENET DUGAN PATIENT Selected Encounter This [...] activities for the patient from all [facility]. This section includes future appointments and future orders which are active, pending or scheduled. Future Appointments This section includes appointments that were scheduled to occur 6 months from the date of the Encounter, up to a maximum of 20 appointments. The data comes from all [facility] facilities. Appointment Date/Time Appointment Type Appointme nt Facility Name Aug 16, 2024 12:00 PM AMBULATORY - NONE [place] [facility] Aug 22, 2024 11:20 AM AMBULATORY - MEDICINE [facility] [place] [facility] Aug 24, 2024 11:00 AM AMBULATORY - MEDICINE [facility] Sep 01, 2024 11:[address] [place] [facility] Sep 07, 2024 03:00 PM AMBULATORY - MEDICINE [place] C [place] [facility] Dec 13, 2024 01:30 PM [facility] Jan 02, 2025 10:00 AM [facility] Active, Pending, and Scheduled Orders This [...] 09, 2024 09:40 AM Consult Order COMMUNITY [facility]-UROLOGY Cons Fraternity Adviser's Choice [facility] Lab Results: +/- 30 days [...] Range Comment Aug 24, 2024 11:28 AM [place] CBC AND DIFF (AUTO) Specimen Type: BLOOD No comment entered. Ordering Provider: ROWENA ROY Report Released Date/Time: Aug 24, 2024 11:07 AM Reporting Lab: [facility] [address] [address] Performing Lab: [facility] [address] [address] WBC 8.84 10*3/uL 4.50-11.00 RBC 4.72 10*6/uL [...] 10*3/uL 0.00-0.00 Aug 24, 2024 11:28 AM [facility] MICROSCOPIC AUTOMATED, URINE Specimen Type: URINE Comment: If Glucose = >500 and Ketones are positive, please alert the Physician. Ordering Provider: MONICA VERDUZCO Report Released Date/Time: Aug 09, 2024 09:43 AM Reporting Lab: [address] [address] Performing Lab: [address] [address] UA WBC 0-5 /[HPF] 0-5 UA BACTERIA 1+ /[HPF] NoneObs UA TRIPLE PHOSPHATE CRYSTALS MODERATE /[HPF] Not Established UA RBC 6-10 /[HPF] H 0-3 Aug 24, 2024 11:28 AM [facility] URINALYSIS Specimen Type: URINE Comment: If Glucose = >500 and Ketones are positive, please alert the Physician. Ordering Provider: MONICA VERDUZCO Report Released Date/Time: Aug 09, 2024 09:43 AM Reporting Lab: [address] [address] Performing Lab: [address] [address] UA COLOR Light-Brown Yellow UA APPEARANCE Turbid Clear UA GLUCOSE Normal mg/dL Negative UA KETONES NEGATIVE mg/dL Negative UA BLOOD LARGE mg/dL Negative UA PROTEIN 100 mg/dL Negative UA NITRITE NEGATIVE mg/dL Negative UA BILIRUBIN NEGATIVE mg/dL Negative UA SPECIFIC GRAVITY 1.007 L 1.016-1.022 UA pH 8.5 5.0-9.0 UA UROBILINOGEN Normal mg/dL <2.0 UA LEUKOCYTE LARGE Negative Aug 08, 2024 10:59 AM [facility] VITAMIN D 25-OH (Therapy monitor) [...] For additional information, please refer to http://educatio n.[employer].com/faq/FAQ 199 (This link is being provided for informational/ educational purposes only.) This test was developed and its analytical performance characteristics have been determined by [facility] [place]. It has not been cleared or approved by the U.S. Food and Drug Administration. This assay has been validated pursuant to the CLIA regulations and is used for clinical purposes. This test was developed and its analytical performance characteristics have been determined by [facility] [place] It has not been cleared or approved by the U.S. Food and Drug Administration. This assay has been validated pursuant to the CLIA regulations and is used for clinical purposes. Test Performed by [facility], [address] [place] [address] Dov Bahena M.D., Ph.D., Director of Laboratories , CLIA [id number] TEST PERFORMED AT: , Ordering Provider: MONICA VERDUZCO Report Released Date/Time: Aug 08, 2024 10:54 AM Reporting Lab: [facility] [address] [address] Performing Lab: [facility] [address] [address] VITAMIN D, 25-OH, TOTAL 51 ng/mL 30-100 VITAMIN D, 25-OH, D3 51 ng/mL VITAMIN D, 25-OH, D2 <4 ng/mL Aug 08, 2024 10:59 AM [facility] FOLATE (WROX) Specimen Type: SERUM No comment entered. Ordering Provider: MONICA VERDUZCO Report Released Date/Time: Aug 08, 2024 10:54 AM Reporting Lab: [facility] [place] [place] [facility] [address] [address] Performing Lab: [facility] [place] [facility] [address] [facility] [address] FOLATE (WROX) 4.07 ng/mL L >5.2 Aug 08, 2024 10:59 AM [facility] TRN [facility] MICROALBUMIN CREATININE RATIO PANEL Specimen Type: URINE No comment entered. Ordering Provider: MONICA VERDUZCO Report Released Date/Time: Aug 08, 2024 10:54 AM Reporting Lab: [place] [facility] [address] [address] Performing Lab: [facility]ITALRD.W. [facility] HOSPITALTRN [facility]ENTER[facility]ETS [facility] [address] [address] MICROALBUMIN/ CREATININE RATIO 354.2 mg/g H 0-29.9 MICROALBUMIN, QUANTITATIVE 103.3 mg/dL RR UNAVAIL CREATININE URINE 291.68 mg/dL Aug 08, 2024 10:59 AM [facility] VITAMIN B12 Specimen Type: SERUM No comment entered. Ordering Provider: MONICA VERDUZCO Report Released Date/Time: Aug 08, 2024 10:54 AM Reporting Lab: [facility] TRN [facility] [address] [address] Performing Lab: [facility]ITALRD.W. [facility] HOSPITALTRN [facility]ENTERUSETS [facility] [address] [address] VITAMIN B12 1849 pg/mL H 200-900 Aug 08, 2024 10:59 AM [facility] HOSPITALRANDALUSIA HEALTHN [facility] CENTERUSEMARIA [facility] LIPID PANEL FASTING Specimen Type: SERUM No comment entered. Ordering Provider: MONICA VERDUZCO Report Released Date/Time: Aug 08, 2024 10:54 AM Reporting Lab: [facility]ITALRD.W. [facility] HOSPITALTRN [facility]ENTERUSETS [facility] [address] [address] Performing Lab: [facility] HOSPITALRANDALUSIA HEALTHN [facility] CENTERUSETS [address] [address] CHOLESTEROL 178 mg/dL TRIGLYCERIDE 97 mg/dL 0-150 LDL calculated 97 mg/dL 0-129 CHOL/HDL 2.9 HDL CHOLESTEROL 62 mg/dL H 40-60 Aug 08, 2024 10:59 AM [facility] HEMOGLOBIN A1C PANEL Specimen Type: [...] 08, 2024 10:54 AM Reporting Lab: [address] [address] Performing Lab: [address] [address] HEMOGLOBIN A1C 5.2 4.0-5.6 Aug 08, 2024 10:59 AM [facility] BASIC METABOLIC PANEL (fasting) Specimen Type: SERUM No comment entered. Ordering Provider: MONICA VERDUZCO Report Released Date/Time: Aug 08, 2024 10:54 AM Reporting Lab: [address] [address] Performing Lab: [address] [address] UREA NITROGEN 22 mg/dL 7-25 GLUCOSE 91 mg/dL 65-100 SODIUM 138 mmol/L 135-145 POTASSIUM 4.8 mmol/L 3.5-5.0 CHLORIDE 105 mmol/L 100-110 CO2 25 meq/L 20-30 CREATININE, Serum 0.99 mg/dL 0.50-1.40 eGFR(CKD-EPI 2020) 77 mL/min >60 Aug 08, 2024 10:59 AM [facility] LIVER FUNCTION Specimen Type: SERUM No comment entered. Ordering Provider: MONICA VERDUZCO Report Released Date/Time: Aug 08, 2024 10:54 AM Reporting Lab: [address] [address] Performing Lab: [facility] [address] [address] PROTEIN,TOTAL 6.7 g/dL 6.0-8.3 ALBUMIN 3.4 g/dL L 3.5-5.0 ALKALINE PHOSPHATASE 151 U/L H 40-150 AST 17 U/L 5-34 ALT 8 U/L BILIRUBIN, TOTAL 0.5 mg/dL 0.2-1.2 Aug 08, 2024 10:59 AM [facility] TSH Specimen Type: SERUM No comment entered. Ordering Provider: MONICA VERDUZCO Report Released Date/Time: Aug 08, 2024 10:54 AM Reporting Lab: [facility] [address] [address] Performing Lab: [address] [address] TSH 1.93 u[IU]/mL 0.35-5.00 Aug 08, 2024 10:59 AM [facility] PSA Specimen Type: SERUM No comment entered. Ordering Provider: MONICA VERDUZCO Report Released Date/Time: Aug 08, 2024 10:54 AM Reporting Lab: [facility] [address] [address] Performing Lab: [address] [address] PSA 30.59 ng/mL H 0.00-4.00 Aug 08, 2024 10:59 AM [facility] CBC AND DIFF (AUTO) Specimen Type: BLOOD No comment entered. Ordering Provider: MONICA VERDUZCO Report Released Date/Time: Aug 08, 2024 10:54 AM Reporting Lab: [address] [address] Performing Lab: [address] [address] WBC 7.81 10*3/uL 4.50-11.00 RBC 4.88 10*6/uL [...] AM CHEST CT W/O CONT: JAKE DUGAN [id number] -[id number] M Exm Date: SEP 01, 2024@10:54 Req Phys: LUBA,NOLAN Pat Loc: CWM/SO/PACT 9 (Req'g Loc) Img Loc: NHM/CT Service: Unknown [facility] [place] [address] (Case [id number] COMPLETE) CT THORAX W/O CONT (CT Detailed) CPT:37322 Reason for Study: LDCT Clinical History: lung CA screen/surveillance as per protocol Report Status: Verified Date Reported: SEP 01, 2024 Date Verified: SEP 01, 2024 Transcription Typist E-Sig:/ES/STARR MCDANIEL JR Report: Study: Noncontrast CT [...] Primary Interpreting Staff: STARR MCDANIEL JR, Radiologist (Transcription Typist) /STARR HERNANDEZ JR [facility] Aug 16, 2024 02:[address] ABDOMEN AND PELVIS WITH CONTRAST: JAKE DUGAN [id number] -[id number] M Exm Date: AUG 16, 2024@14:04 Req Phys: LUBA,NOLAN Pat Loc: CWM/SO/PACT 9 (Req'g Loc) Img Loc: [place]/CT Service: Unknown [facility] [place] [address] (Case [id number] COMPLETE) CT ABDOMEN AND PELVIS WITH CONTRA(CT Detailed) CPT:37060 Contrast Media : Non-ionic Iodinated Reason for Study: prostate CA Clinical History: Report Status: Verified Date Reported: AUG 16, 2024 Date Verified: AUG 16, 2024 Transcription Typist E-Sig: Report: CT ABDOMEN AND PELVIS WITH [...] tumor infiltration. READING PHYSICIAN: Kwabena Perez M.D. -[phone] 08/16/2024 20:18 [facility] National Teleradiology Program [phone] (For Medical Practitioner Use Only) Attention Patients / Veterans: If you have questions or concerns about these test results, please contact your ordering provider or primary care team. Primary Diagnostic Code: POSSIBLE MALIGNANCY Primary Interpreting Staff: RADIOLOGY,OUTSIDE SERVICE, Staff Physician / RADIOLOGY,OUTSIDE SERVICE [facility] Pathology Reports: +/- 30 days [...] comes from all CT treatment facilities. Date/Time Pathology Report Provider Source Aug 24, 2024 11:28 AM LR MICROBIOLOGY RE PORT: Reporting Lab: [facility] [CLIA# [id number]] [address] [place] [address] Accession [UID]: [id number] [[id number]] Received: Aug 24, 2024@11:28 Collection sample: URINE CLEAN CATCH Collection date: Aug 24, 2024 11:28 Site/Specimen: URINE Provider: NOLAN VERDUZCO Comment on specimen: POSITIVE CULTURE RESULTS MAY NOT REPRESENT CLINICAL INFECTION. CONSIDER NEED FOR ANTIBIOTICS IN THE CONTEXT OF UTI SYMPTOMS. Test(s) ordered: URINE CULTURE([facility]).......... completed: Aug 29, 2024 08:33 * BACTERIOLOGY FINAL REPORT => Aug 29, 2024 08:32 TECH CODE: [id number] CULTURE RESULTS: 1. KLEBSIELLA OXYTOCA/RAOULTELLA ORNITHINOLYTICA - [...] Klebsiella Oxytoca/raoultella Ornithinolytica Performed By: [facility] [CLIA# [id number]] [address] [place] [address] Pseudomonas Aeruginosa Performed By: [facility] [CLIA# [id number]] [address] [place] [address] Bact Report Remark #1 Performed By: [facility] [CLIA# [id number]] [address] [place] [address] Bact Report Remark #2 Performed By: [facility] [CLIA# [id number]] [address] [place] [address] NAMENRIQUETA CALIXTO CEASAR Encounter Notes: All associated encounter notes This section contains the clinical notes associated to the Encounter. Date/Time Encounter Note(s) Provider Source Aug 10, 2024 10:13 AM ADDENDUM: LOCAL TITLE: Addendum STANDARD TITLE: ADDENDUM DATE OF NOTE: AUG 10, 2024@10:13:51 ENTRY DATE: AUG 10, 2024@10:13:52 AUTHOR: JELANI BRANDON EXP COSIGNER: URGENCY: STATUS: COMPLETED Patient is requesting PCP to call him to discuss lab results. /mariana/ WAGNER MOORE,RN-BC REGISTERED NURSE (RN) Signed: 08/10/2024 10:14 Receipt Acknowledged By: 08/31/2024 09:36 /mariana/ NOLAN VERDUZCO MD PHYSICIAN --- Original Document --- 08/10/24 WALK-IN NOTE PRIMARY CARE (T): <====Click to [...] encounter the below scheduled visits for the [place] were discussed and appointment reminder card was offered. Future appointments: 09/05/2024 11:30 CWM/SO/PACT 9 10/26/2024 09:00 CWM/SO/PACT 9 10/28/2024 10:00 CWM/SO/PACT 9 01/02/2025 10:00 CWM/NO/OPTOMETRY/MERHAR Vet requesting to speak with Dr Verduzco regarding his MRI states he is able to get a sooner appt by a non va provider. /mariana/ CHAPINCITO MCINTYRE Signed: 08/10/2024 10:05 Receipt Acknowledged By: 08/10/2024 10:13 /mariana/ WAGNER MOORE,RN-BC REGISTERED NURSE (RN) JELANI BRANDON [place] Aug 10, 2024 10:04 AM PRIMARY CARE [...] RN [ ]Symptoms [ X ]Other The [place] states they are: [ ]Waiting [ X ]Not Waiting No Walk in visit scheduled with PACT Nurse [ X ] At this encounter the 's demographics were verified. [ X ] At this encounter the [place]'s Insurance information was verified. [ X ] At this encounter the below scheduled visits for the were discussed and appointment reminder card was offered. Future appointments: 09/05/2024 11:30 CWM/SO/PACT 9 10/26/2024 09:00 CWM/SO/PACT 9 10/28/2024 10:00 CWM/SO/PACT 9 01/02/2025 10:00 CWM/NO/OPTOMETRY/MERHAR Vet requesting to speak with Dr Verduzco regarding his MRI states he is able to get a sooner appt by a non va provider. /mariana/ CHAPINCITO MCINTYRE Signed: 08/10/2024 10:05 Receipt Acknowledged By: 08/10/2024 10:13 /mariana/ WAGNER MOORE,RN-BC REGISTERED NURSE (RN) 08/10/2024 ADDENDUM STATUS: COMPLETED Patient is requesting PCP to call him to discuss lab results. /mariana/ WAGNER MOORE,RN-BC REGISTERED NURSE (RN) Signed: 08/10/2024 10:14 Receipt Acknowledged By: * AWAITING SIGNATURE * NOLAN VERDUZCO CASSANDRA M [place]
--- OUTSIDE RECORDS SUMMARY | 2024-09-07 15:33 | XMS_ITS | Encounter Summary ---
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 Organization [facility] [place] Address [address] [place] [id number] Care Team Providers Care Minilab Operator Name Role Phone ROWENA ROY Primary [...] Segal's Name Patient's Relationship to Policy Segal [facility] (R) MEDICARE ADVANTAGE [place] INDIV IDUAL - [place] Sep 21, 2023 [id number] [phone] GENET DUGAN S PATIENT [facility] (WNR) MEDICARE ADVANTAGE [facility] ([facility]) Sep 21, 2023 [id number] [phone] DUGAN,GENET S PATIENT [place] MEDICAID [place] PLAN May 22, 2022 MEDICAI D [id number] MARVIN DUGANI S PATIENT MEDICARE (WN) MEDICARE (M) PART B May 22, 2022 PART B [id number] [phone] DUGAN,GENET S PATIENT MEDICARE (WNR) MEDICARE (M) PART A Feb 19, 2009 PART A [id number] DUGAN,GENET S PATIENT MEDICARE PART D (WNR) MEDICARE (M) PART D Jul 22, 2022 PART D [id number] GENET DUGAN PATIENT [facility] (WNR) MEDICARE ADVANTAGE [facility] (WNR) Sep 21, 2022 [id number] [phone] GENET DUGAN PATIENT [facility] MCR (WNR) MEDICARE ADVANTAGE MCR (WNR) Sep 21, 2022 [id number] GENET DUGAN PATIENT Selected Encounter This [...] - MEDICINE [place] [facility] [place] [facility] Aug 16, 2024 12:00 PM AMBULATORY - NONE [place] [facility] [place] [facility] Aug 22, 2024 11:20 AM AMBULATORY - MEDICINE [place] [facility] [place] [facility] Aug 24, 2024 11:00 AM AMBULATORY - MEDICINE [facility] Sep 01, 2024 11:00 AM AMBULATORY - NONE [place] [facility] [place] [facility] Sep 07, 2024 03:00 PM AMBULATORY - MEDICINE [place] [facility] [facility] Dec 13, 2024 01:30 PM AMBULATORY - MEDICINE [facility] Jan 02, 2025 10:00 AM AMBULATORY - MEDICINE [facility] [place] [facility] Active, Pending, and Scheduled Orders This [...] data comes from all [place] treatment facilities. Test Date/Time Test Type Test Details Facility Name Aug 09, 2024 09:40 AM Consult Order COMMUNITY CARE-UROLOGY Cons Digital Content Marketing Manager's Choice [facility] Lab Results: +/- 30 days of the [...] Range Comment Aug 08, 2024 10:59 AM [facility] VITAMIN D 25-OH (Therapy monitor) Specimen [...] For additional information, please refer to http://[email or web address] (This link is being provided for informational/ educational purposes only.) This test was developed and its analytical performance characteristics have been determined by [place] It has not been cleared or approved by the U.S. Food and Drug Administration. This assay has been validated pursuant to the CLIA regulations and is used for clinical purposes. This test was developed and its analytical performance characteristics have been determined by [place] It has not been cleared or approved by the U.S. Food and Drug Administration. This assay has been validated pursuant to the CLIA regulations and is used for clinical purposes. Test Performed by [facility], [place], [address] [place], [place] Dov Bahena M.D., Ph.D., Director of Laboratories , CLIA [id number] TEST PERFORMED AT: , Ordering Provider: HORTENCIA VERDUZCO Report Released Date/Time: Aug 08, 2024 10:54 AM Reporting Lab: [facility] [address] [address] Performing Lab: [facility] [address] [facility] [place], [address] [facility] [address] VITAMIN D, 25-OH, TOTAL 51 ng/mL 30-100 VITAMIN D, 25-OH, D3 51 ng/mL VITAMIN D, 25-OH, D2 <4 ng/mL Aug 08, 2024 10:59 AM [facility] FOLATE (WROX) Specimen Type: SERUM No comment entered. Ordering Provider: HORTENCIA VERDUZCO Report Released Date/Time: Aug 08, 2024 10:54 AM Reporting Lab: [facility] [address] [facility] [address] Performing Lab: [facility] [address] [facility] [address] FOLATE (WROX) 4.07 ng/mL L >5.2 Aug 08, 2024 10:59 AM [facility] MICROALBUMIN CREATININE RATIO PANEL Specimen Type: URINE No comment entered. Ordering Provider: HORTENCIA VERDUZCO Report Released Date/Time: Aug 08, 2024 10:54 AM Reporting Lab: [facility] [address] [facility] [address] Performing Lab: [facility] [address] [address] MICROALBUMIN/ CREATININE RATIO 354.2 mg/g H 0-29.9 MICROALBUMIN, QUANTITATIVE 103.3 mg/dL RR UNAVAIL CREATININE URINE 291.68 mg/dL Aug 08, 2024 10:59 AM [facility] VITAMIN B12 Specimen Type: SERUM No comment entered. Ordering Provider: HORTENCIA VERDUZCO GRACIELA Report Released Date/Time: Aug 08, 2024 10:54 AM Reporting Lab: [place] [facility] [address] [address] Performing Lab: [facility] [address] [address] VITAMIN B12 1849 pg/mL H 200-900 Aug 08, 2024 10:59 AM [facility] LIPID PANEL FASTING Specimen Type: SERUM No comment entered. Ordering Provider: HORTENCIA VERDUZCO Report Released Date/Time: Aug 08, 2024 10:54 AM Reporting Lab: [facility] [address] [facility] [address] Performing Lab: [facility] [address] [facility] [address] CHOLESTEROL 178 mg/dL TRIGLYCERIDE 97 mg/dL 0-150 LDL calculated 97 mg/dL 0-129 CHOL/HDL 2.9 HDL CHOLESTEROL 62 mg/dL H 40-60 Aug 08, 2024 10:59 AM [facility] BASIC METABOLIC PANEL (fasting) Specimen Type: SERUM No comment entered. Ordering Provider: HORTENCIA VERDUZCO Report Released Date/Time: Aug 08, 2024 10:54 AM Reporting Lab: [facility] [address] [facility] [address] Performing Lab: [facility] [address] [address] UREA NITROGEN 22 mg/dL 7-25 GLUCOSE 91 mg/dL 65-100 SODIUM 138 mmol/L 135-145 POTASSIUM 4.8 mmol/L 3.5-5.0 CHLORIDE 105 mmol/L 100-110 CO2 25 meq/L 20-30 CREATININE, Serum 0.99 mg/dL 0.50-1.40 eGFR(CKD-EPI 2020) 77 mL/min >60 Aug 08, 2024 10:59 AM [facility] HEMOGLOBIN A1C PANEL Specimen Type: BLOOD [...] AM Reporting Lab: [place] [facility] [facility] [address] [address] Performing Lab: [place] [facility] [facility] [address] [facility] [address] HEMOGLOBIN A1C 5.2 4.0-5.6 Aug 08, 2024 10:59 AM [facility] LIVER FUNCTION Specimen Type: SERUM No comment entered. Ordering Provider: HORTENCIA VERDUZCO GRACIELA Report Released Date/Time: Aug 08, 2024 10:54 AM Reporting Lab: [place] [facility] [place] [facility] [address] [facility] [facility] [address] Performing Lab: [facility]ITALRPRATTVIL[facility] [place] [facility] [address] [facility] [address] PROTEIN,TOTAL 6.7 g/dL 6.0-8.3 ALBUMIN 3.4 g/dL L 3.5-5.0 ALKALINE PHOSPHATASE 151 U/L H 40-150 AST 17 U/L 5-34 ALT 8 U/L BILIRUBIN, TOTAL 0.5 mg/dL 0.2-1.2 Aug 08, 2024 10:59 AM [facility]RPRAT[facility] TSH Specimen Type: SERUM No comment entered. Ordering Provider: HORTENCIA VERDUZCO Report Released Date/Time: Aug 08, 2024 10:54 AM Reporting Lab: [place] [facility] [facility] [address] [facility] [address] Performing Lab: [place] [facility] [place] [facility] [address] [address] TSH 1.93 u[IU]/mL 0.35-5.00 Aug 08, 2024 10:59 AM [facility] PSA Specimen Type: SERUM No comment entered. Ordering Provider: HORTENCIA VERDUZCO GRACIELA Report Released Date/Time: Aug 08, 2024 10:54 AM Reporting Lab: [place] [facility] [facility] [address] [facility] [facility] [address] Performing Lab: [place] [facility] [address] [facility] [address] PSA 30.59 ng/mL H 0.00-4.00 Aug 08, 2024 10:59 AM [facility] CBC AND DIFF (AUTO) Specimen Type: BLOOD No comment entered. Ordering Provider: HORTENCIA VERDUZCO Report Released Date/Time: Aug 08, 2024 10:54 AM Reporting Lab: [facility] [address] [address] Performing Lab: [facility] [address] [address] WBC 7.81 10*3/uL 4.50-11.00 RBC 4.88 10*6/uL [...] Apr 04, 2024 ADVANCE DIRECTIVE [facility] Radiology Reports: +/- 30 days of [...] ABDOMEN AND PELVIS WITH CONTRAST: JAKE DUGAN [id number] -1945 Ex Date: AUG 16, 2024@14:04 Req Phys: NOLAN VERDUZCO Pat Loc: C[facility]/SO/PACT 9 (Req'g Loc) Img Loc: [place]/CT Service: [place] [address] (Case [id number] COMPLETE) CT ABDOMEN AND PELVIS WITH CONTRA(CT Detailed) CPT:13739 Contrast Media : Non-ionic Iodinated Reason for Study: prostate CA Clinical History: Report Status: Verified Date Reported: AUG 16, 2024 Date Verified: AUG 16, 2024 Bark Skinner E-Sig: Report: CT ABDOMEN AND PELVIS WITH [...] tumor infiltration. READING PHYSICIAN: Kwabena Perez M.D. -[phone] 08/16/2024 20:18 [facility] [employer] Program [phone] (For Medical Practitioner Use Only) Attention Patients / Veterans: If you have questions or concerns about these test results, please contact your ordering provider or primary care team. Primary Diagnostic Code: POSSIBLE MALIGNANCY Primary Interpreting Staff: RADIOLOGY,OUTSIDE SERVICE, Staff Physician / RADIOLOGY,OUTSIDE SERVICE [facility] Encounter Notes: All associated encounter notes This section contains the clinical notes associated to the Encounter. Date/Time Encounter Note(s) Provider Source Jul 19, 2024 12:00 AM NONVA CONSULT: LOCAL TITLE: COMMUNITY CARE-CONSULT RESULT NOTE STANDARD TITLE: NONVA CONSULT DATE OF NOTE: JUL 19, 2024 ENTRY DATE: AUG 13, 2024@15:32:37 AUTHOR: PING GUERIN EXP COSIGNER: URGENCY: STATUS: COMPLETED VistA Imaging - Scanned Document SCANNED DOCUMENT SIGNATURE NOT REQUIRED Electronically Filed: 08/13/2024 by: PING SOLER [facility]
--- OUTSIDE RECORDS SUMMARY | 2024-09-07 15:34 | XMS_ITS | Encounter Summary ---
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 ([facility]) Sep 21, 2023 [id number] [phone] DUGAN,GENET S PATIENT [place] MEDICAID [place] PLAN May 22, 2022 MEDICAI D [id number] GENET DUGAN S PATIENT MEDICARE ([facility]) MEDICARE () PART B May 22, 2022 PART B [id number] DUGAN,GENET S PATIENT MEDICARE ([facility]) MEDICARE (M) PART A Feb 19, 2009 PART A [id number] [phone] DUGAN,GENET S PATIENT MEDICARE PART D (WNR) MEDICARE (M) PART D Jul 22, 2022 PART D [id number] [phone] GENET DUGAN PATIENT [facility] (WNR) MEDICARE ADVANTAGE [facility] (WNR) Sep 21, 2022 [id number] [phone] GENET DUGAN PATIENT [facility] (WNR) MEDICARE ADVANTAGE MCR (WNR) Sep 21, 2022 [id number] GENET DUGAN PATIENT Selected Encounter This section includes the information on record at [place] for the Encounter. Date/Time Encounter Type Encounter Description Reason Provider Source Aug 22, 2024 11:20 AM FIT SPECTACLES BIFOCAL OPTOMETRY ICD-10-CM Z46.0 Encounter for fit/adjst of spectacles and contact lenses JOHNNY UMANA [facility] Encounter Template Text not used by [place] Assessments - Encounter Diagnoses This section includes the primary and secondary diagnoses documented for the Encounter. Date/Time Primary/Secondary Diagnosis Diagnosis Name Provider Source Aug 22, 2024 11:30 AM PRIMARY Encounter for fit/adjst of spectacles and contact lenses JOHNNY UMANA [place] [facility] [place] [facility] Plan of Treatment: Future Appointments (+ 6 [...] 2024 11:00 AM AMBULATORY - MEDICINE [facility] Sep 01, 2024 11:00 AM AMBULATORY - NONE [place] [facility] [place] [facility] Sep 07, 2024 03:00 PM AMBULATORY - [place]IC[place] [facility] [place] [facility] Dec 13, 2024 01:30 PM AMBULATORY - MEDICINE [place] Jan 02, 2025 10:00 AM AMBUL[place]ORY [place]IC[place] [facility] [place] [facility] Active, Pending, and Scheduled Orders [...] Aug 09, 2024 09:40 AM Consult Order [facility] Cons Gas Meter Mechanic's Choice [facility] Lab Results: +/- 30 days of the encounter This section includes the Chemistry and Hematology Lab Results on record with [place] for the patient. Radiology Reports and Pathology Reports are provided separately, in subsequent sections. Lab Results This section contains the Chemistry/Hematology Results that were resulted 30 days before or 30 daysafter the date of the Encounter. Date/Time Source Result Type Result - Unit Interpretation Reference Range Comment Aug 24, 2024 11:28 AM [facility] CBC AND DIFF (AUTO) Specimen Type: BLOOD No comment entered. Ordering Provider: ROWENA ROY Report Released Date/Time: Aug 24, 2024 11:07 AM Reporting Lab: [facility] [address] [facility] [address] Performing Lab: [facility] [address] [facility] [address] WBC 8.84 10*3/uL 4.50-11.00 RBC 4.72 10*6/uL [...] 10*3/uL 0.00-0.00 Aug 24, 2024 11:28 AM [facility] MICROSCOPIC AUTOMATED, URINE Specimen Type: URINE Comment: If Glucose = >500 and Ketones are positive, please alert the Physician. Ordering Provider: MONICA VERDUZCO Report Released Date/Time: Aug 09, 2024 09:43 AM Reporting Lab: [address] [address] Performing Lab: [address] [address] UA WBC 0-5 /[HPF] 0-5 UA BACTERIA 1+ /[HPF] NoneObs UA TRIPLE PHOSPHATE CRYSTALS MODERATE /[HPF] Not Established UA RBC 6-10 /[HPF] H 0-3 Aug 24, 2024 11:28 AM [facility] URINALYSIS Specimen Type: URINE Comment: If Glucose = >500 and Ketones are positive, please alert the Physician. Ordering Provider: MONICA VERDUZCO Report Released Date/Time: Aug 09, 2024 09:43 AM Reporting Lab: [facility] [address] [facility] [address] Performing Lab: [address] [address] UA COLOR Light-Brown Yellow UA APPEARANCE Turbid Clear UA GLUCOSE Normal mg/dL Negative UA KETONES NEGATIVE mg/dL Negative UA BLOOD LARGE mg/dL Negative UA PROTEIN 100 mg/dL Negative UA NITRITE NEGATIVE mg/dL Negative UA BILIRUBIN NEGATIVE mg/dL Negative UA SPECIFIC GRAVITY 1.007 L 1.016-1.022 UA pH 8.5 5.0-9.0 UA UROBILINOGEN Normal mg/dL <2.0 UA LEUKOCYTE LARGE Negative Aug 08, 2024 10:59 AM [facility] [...] For additional information, please refer to [email or web address] (This link is being provided for informational/ educational purposes only.) This test was developed and its analytical performance characteristics have been determined by [employer] [place]. It has not been cleared or approved by the U.S. Food and Drug Administration. This assay has been validated pursuant to the CLIA regulations and is used for clinical purposes. This test was developed and its analytical performance characteristics have been determined by [employer] [place]. It has not been cleared or approved by the U.S. Food and Drug Administration. This assay has been validated pursuant to the CLIA regulations and is used for clinical purposes. Test Performed by [facility], [employer] [facility], [address] [place] [address] Dov Bahena M.D., Ph.D., Director of Laboratories , CLIA [id number] TEST PERFORMED AT: , Ordering Provider: MONICA VERDUZCO Report Released Date/Time: Aug 08, 2024 10:54 AM Reporting Lab: [facility] [address] [facility] [address] Performing Lab: [facility] [address] [address] VITAMIN D, 25-OH, TOTAL 51 ng/mL 30-100 VITAMIN D, 25-OH, D3 51 ng/mL VITAMIN D, 25-OH, D2 <4 ng/mL Aug 08, 2024 10:59 AM [facility] FOLATE (WROX) Specimen Type: SERUM No comment entered. Ordering Provider: MONICA VERDUZCO Report Released Date/Time: Aug 08, 2024 10:54 AM Reporting Lab: [facility] [place] [facility] [address] [facility] [address] Performing Lab: [facility] [place] [facility] [address] [facility] [address] FOLATE (WROX) 4.07 ng/mL L >5.2 Aug 08, 2024 10:59 AM [facility] MICROALBUMIN CREATININE RATIO PANEL Specimen Type: URINE No comment entered. Ordering Provider: MONICA VERDUZCO Report Released Date/Time: Aug 08, 2024 10:54 AM Reporting Lab: [facility] [place] [address] [address] Performing Lab: [facility] [place] [facility] [address] [facility] [address] MICROALBUMIN/ CREATININE RATIO 354.2 mg/g H 0-29.9 MICROALBUMIN, QUANTITATIVE 103.3 mg/dL RR UNAVAIL CREATININE URINE 291.68 mg/dL Aug 08, 2024 10:59 AM [facility] VITAMIN B12 Specimen Type: SERUM No comment entered. Ordering Provider: MONICA VERDUZCO Report Released Date/Time: Aug 08, 2024 10:54 AM Reporting Lab: [facility] [place] [facility] [address] [facility] [address] Performing Lab: [facility] [address] [address] VITAMIN B12 1849 pg/mL H 200-900 Aug 08, 2024 10:59 AM [facility] LIPID PANEL FASTING Specimen Type: SERUM No comment entered. Ordering Provider: MONICA VERDUZCO Report Released Date/Time: Aug 08, 2024 10:54 AM Reporting Lab: [facility] [address] [address] Performing Lab: [facility] [address] [facility] [address] CHOLESTEROL 178 mg/dL TRIGLYCERIDE 97 mg/dL 0-150 LDL calculated 97 mg/dL 0-129 CHOL/HDL 2.9 HDL CHOLESTEROL 62 mg/dL H 40-60 Aug 08, 2024 10:59 AM [facility] BASIC METABOLIC PANEL (fasting) Specimen Type: SERUM No comment entered. Ordering Provider: MONICA VERDUZCO Report Released Date/Time: Aug 08, 2024 10:54 AM Reporting Lab: [facility] [address] [facility] [address] Performing Lab: [facility] [address] [facility] [address] UREA NITROGEN 22 mg/dL 7-25 GLUCOSE 91 mg/dL 65-100 SODIUM 138 mmol/L 135-145 POTASSIUM 4.8 mmol/L 3.5-5.0 CHLORIDE 105 mmol/L 100-110 CO2 25 meq/L 20-30 CREATININE, Serum 0.99 mg/dL 0.50-1.40 eGFR(CKD-EPI 2020) 77 mL/min >60 Aug 08, 2024 10:59 AM [facility] LIVER FUNCTION Specimen Type: SERUM No comment entered. Ordering Provider: MONICA VERDUZCO Report Released Date/Time: Aug 08, 2024 10:54 AM Reporting Lab: [facility] [address] [facility] [address] Performing Lab: [facility] [address] [facility] [address] PROTEIN,TOTAL 6.7 g/dL 6.0-8.3 ALBUMIN 3.4 g/dL L 3.5-5.0 ALKALINE PHOSPHATASE 151 U/L H 40-150 AST 17 U/L 5-34 ALT 8 U/L BILIRUBIN, TOTAL 0.5 mg/dL 0.2-1.2 Aug 08, 2024 10:59 AM [facility] [...] Aug 08, 2024 10:54 AM Reporting Lab: [place] [facility] [place] [facility] [address] [facility] [address] Performing Lab: [place] [facility] [place] [facility] [address] [facility] [address] HEMOGLOBIN A1C 5.2 4.0-5.6 Aug 08, 2024 10:59 AM [facility] [place] [facility] TSH Specimen Type: SERUM No comment entered. Ordering Provider: MONICA VERDUZCO Report Released Date/Time: Aug 08, 2024 10:54 AM Reporting Lab: [place] [facility] [place] [facility] [address] [facility] [address] Performing Lab: [place] [facility] [place] [facility] [address] [facility] [address] TSH 1.93 u[IU]/mL 0.35-5.00 Aug 08, 2024 10:59 AM [facility] PSA Specimen Type: SERUM No comment entered. Ordering Provider: MONICA VERDUZCO Report Released Date/Time: Aug 08, 2024 10:54 AM Reporting Lab: [place] [facility] [place] [facility] [address] [facility] [address] Performing Lab: [place] [facility] [place] [facility] [address] [facility] [address] PSA 30.59 ng/mL H 0.00-4.00 Aug 08, 2024 10:59 AM [facility] CBC AND DIFF (AUTO) Specimen Type: BLOOD No comment entered. Ordering Provider: MONICA VERDUZCO Report Released Date/Time: Aug 08, 2024 10:54 AM Reporting Lab: [facility] [place] [facility] [address] [facility] [address] Performing Lab: [place] [facility] [place] [facility] [address] [facility] [address] WBC 7.81 10*3/uL 4.50-11.00 RBC 4.88 10*6/uL [...] this document. The data comes from all [place] facilities. Date Advance Directives Provider Source Apr [...] the Encounter. The data comes from all [place] treatment facilities. Date/Time Radiology Report Provider Source Sep 01, 2024 10:[address] W/O CONT: JAKE DUGAN [id number] -[id number] M Exm Date: SEP 01, 2024@10:54 Req Phys: LUBA,NOLAN Pat Loc: CWM/SO/PACT 9 (Req'g Loc) Img Loc: [facility]/CT Service: Unknown [place] [facility] [place] [address] (Case [id number] COMPLETE) CT THORAX W/O CONT (CT Detailed) CPT:64032 Reason for Study: LDCT Clinical History: lung CA screen/surveillance as per protocol Report Status: Verified Date Reported: SEP 01, 2024 Date Verified: SEP 01, 2024 Foreign Service Officer E-Sig:/ES/STARR MCDANIEL JR Report: Study: Noncontrast CT [...] Primary Interpreting Staff: STARR MCDANIEL JR, Radiologist (Foreign Service Officer) /STARR HERNANDEZ JR [facility] Aug 16, 2024 02:[address] ABDOMEN AND PELVIS WITH CONTRAST: JAKE DUGAN [id number] -1945 M Exm Date: AUG 16, 2024@14:04 Req Phys: LUBA,NOLAN Pat Loc: CWM/SO/PACT 9 (Req'g Loc) Img Loc: [facility]/CT Service: [place] [address] (Case [id number] COMPLETE) CT ABDOMEN AND PELVIS WITH CONTRA(CT Detailed) CPT:92151 Contrast Media : Non-ionic Iodinated Reason for Study: prostate CA Clinical History: Report Status: Verified Date Reported: AUG 16, 2024 Date Verified: AUG 16, 2024 Foreign Service Officer E-Sig: Report: CT ABDOMEN AND PELVIS WITH CONTRAST HISTORY: prostate CA COMPARISON: 03/14/2024 TECHNIQUE: CT of the abdomen and pelvis with multiplanar reformats was performed at the local [place] facility. A contrast-enhanced series was obtained in the portal venous phase. 350 images were received by the [place] National Teleradiology Program (NTP) for interpretation. RADIATION [...] tumor infiltration. READING PHYSICIAN: Kwabena Perez M.D. -[phone] 08/16/2024 20:18 [facility] National Teleradiology Program [phone] (For Medical Practitioner Use Only) Attention Patients / Veterans: If you have questions or concerns about these test results, please contact your ordering provider or primary care team. Primary Diagnostic Code: POSSIBLE MALIGNANCY Primary Interpreting Staff: RADIOLOGY,OUTSIDE SERVICE, Staff Physician / RADIOLOGY,OUTSIDE SERVICE [place] [facility] [place] [facility] Pathology Reports: +/- 30 days [...] the Encounter. The data comes from all [place] treatment facilities. Date/Time Pathology Report Provider Source Aug 24, 2024 11:28 AM LR MICROBIOLOGY RE PORT: Reporting Lab: [place] CNT NIH[facility] [CLIA# [id number]] [address] [place] [address] Accession [UID]: [id number] [[id number]] Received: Aug 24, 2024@11:28 Collection sample: URINE CLEAN CATCH Collection date: Aug 24, 2024 11:28 Site/Specimen: URINE Provider: NOLAN VERDUZCO Comment on specimen: POSITIVE CULTURE RESULTS MAY NOT REPRESENT CLINICAL INFECTION. CONSIDER NEED FOR ANTIBIOTICS IN THE CONTEXT OF UTI SYMPTOMS. Test(s) ordered: URINE CULTURE([facility]).......... completed: Aug 29, 2024 08:33 * BACTERIOLOGY FINAL REPORT => Aug 29, 2024 08:32 TECH CODE: [id number] CULTURE RESULTS: 1. KLEBSIELLA OXYTOCA/RAOULTELLA ORNITHINOLYTICA - [...] Performing Laboratory: Klebsiella Oxytoca/raoultella Ornithinolytica Performed By: [facility] [CLIA# [id number]] [address] [place] [address] Pseudomonas Aeruginosa Performed By: [facility] [CLIA# [id number]] [address] [place] [address] Bact Report Remark #1 Performed By: [facility] [CLIA# [id number]] [address] [place] [address] Bact Report Remark #2 Performed By: [facility] [CLIA# [id number]] [address] [place] [address] ENRIQUETA FLORES [facility] Encounter Notes: All associated encounter notes This [...] consult( Cataract surgery) Eyesight and Surgery [address] [facility] [address] [facility] [address] Exam date: 08/11/2024 EXp date: 08/11/2026 OD: [place] -0.75 x085 OS: +1.00 -1.25 x080 ADD:+2.50 SEG ht:12 Frame: FX8 Coffee 53-19-145 Bifocal/Photochromic Have it shipped here patient is going to [place] in a 1 week 1/2 and will call here to let us know where to send them. /mariana/ JOHNNY UMANA [facility] Signed: 08/22/2024 11:30 [place] UMANA [place] [facility]
--- OUTSIDE RECORDS SUMMARY | 2024-09-07 15:34 | XMS_ITS | Encounter Summary ---
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 Name Role Phone ROWENA ROY Primary [...] Segal's Name Patient's Relationship to Policy Segal [facility] IDUAL - [place] Sep 21, 2023 [id number] [phone] GENET DUGAN S [facility] ([facility]) Sep 21, 2023 [id number] [phone] MARVIN DUGANI S PATIENT HUSKY MEDICAID HUSKY PLAN May 22, 2022 MEDICAI D [id number] GENET DUGAN S PATIENT MEDICARE ([facility]) MEDICARE (M) PART B May 22, 2022 PART B [id number] MARVIN DUGANI S PATIENT MEDICARE ([facility]) MEDICARE (M) PART A Feb 19, 2009 PART A [id number] DUGAN,GENET S PATIENT MEDICARE PART D (WNR) MEDICARE (M) PART D Jul 22, 2022 PART D [id number] [phone] GENET DUGAN S PATIENT [facility] (WNR) MEDICARE ADVANTAGE [facility] (WNR) Sep 21, 2022 [id number] GENET DUGAN S PATIENT [facility] (WNR) MEDICARE ADVANTAGE MCR (WNR) Sep 21, 2022 [id number] GENET DUGAN PATIENT Selected Encounter This [...] The data comes from all [place] treatment facilities. Appointment Date/Time Appointment Type Appointme nt Facility Name Sep 01, 2024 11:00 AM [facility]BUL[facility] - N[facility] Sep 07, 2024 03:00 PM AMBULATORY - MEDICINE [facility] [place] [facility] Dec 13, 2024 01:30 PM AMBULATORY - MEDICINE [facility] Jan 02, 2025 10:00 AM [facility] Active, Pending, and Scheduled Orders This section includes a listing of several types of active, pending, and scheduled orders, including clinic medications orders, diagnostic test orders, procedure orders and consult orders; where the start date of the order is 45 days before the date of the Encounter or 45 days after the date of theEncounter. The data comes from all [facility]. Test Date/Time Test Type Test Details Facility Name Aug 09, 2024 09:40 AM Consult Order COMM[facility]ITY [facility]ARE-UROLOGY Cons Welt Pocket Machine Operator's Choice [facility] Lab Results: +/- 30 days of the encounter This section includes the Chemistry and Hematology Lab Results on record with [place] for the patient. Radiology Reports and Pathology Reports are provided separately, in subsequent sections. Lab Results This section contains the Chemistry/Hematology Results that were resulted 30 days before or 30 daysafter the date of the Encounter. Date/Time Source Result Type Result - Unit Interpretation Reference Range Comment Aug 24, 2024 11:28 AM [facility] CBC AND DIFF (AUTO) Specimen Type: BLOOD No comment entered. Ordering Provider: ROWENA ROY Report Released Date/Time: Aug 24, 2024 11:07 AM Reporting Lab: [facility] [address] [address] Performing Lab: [facility] [address] [address] WBC 8.84 10*3/uL 4.50-11.00 RBC 4.72 10*6/uL [...] 10*3/uL 0.00-0.00 Aug 24, 2024 11:28 AM [facility] MICROSCOPIC AUTOMATED, URINE Specimen Type: URINE Comment: If Glucose = >500 and Ketones are positive, please alert the Physician. Ordering Provider: MONICA VERDUZCO Report Released Date/Time: Aug 09, 2024 09:43 AM Reporting Lab: [facility] [address] [address] Performing Lab: [facility] [address] [address] UA WBC 0-5 /[HPF] 0-5 UA BACTERIA 1+ /[HPF] NoneObs UA TRIPLE PHOSPHATE CRYSTALS MODERATE /[HPF] Not Established UA RBC 6-10 /[HPF] H 0-3 Aug 24, 2024 11:28 AM [facility] URINALYSIS Specimen Type: URINE Comment: If Glucose = >500 and Ketones are positive, please alert the Physician. Ordering Provider: MONICA VERDUZCO Report Released Date/Time: Aug 09, 2024 09:43 AM Reporting Lab: [facility] [address] [address] Performing Lab: [address] [address] UA COLOR Light-Brown Yellow UA APPEARANCE Turbid Clear UA GLUCOSE Normal mg/dL Negative UA KETONES NEGATIVE mg/dL Negative UA BLOOD LARGE mg/dL Negative UA PROTEIN 100 mg/dL Negative UA NITRITE NEGATIVE mg/dL Negative UA BILIRUBIN NEGATIVE mg/dL Negative UA SPECIFIC GRAVITY 1.007 L 1.016-1.022 UA pH 8.5 5.0-9.0 UA UROBILINOGEN Normal mg/dL <2.0 UA LEUKOCYTE LARGE Negative Aug 08, 2024 10:59 AM [facility] VITAMIN D 25-OH (Therapy monitor) Specimen [...] For additional information, please refer to http://educatio n.InternetCorp.i.Sec/faq/FAQ 199 (This link is being provided for informational/ educational purposes only.) This test was developed and its analytical performance characteristics have been determined by [facility] [place], [place]. It has not been cleared or approved by the U.S. Food and Drug Administration. This assay has been validated pursuant to the CLIA regulations and is used for clinical purposes. This test was developed and its analytical performance characteristics have been determined by [facility] [place], [place]. It has not been cleared or approved by the U.S. Food and Drug Administration. This assay has been validated pursuant to the CLIA regulations and is used for clinical purposes. Test Performed by [facility], [facility], [address] [place] [address] Dov Bahena M.D., Ph.D., Director of Laboratories , CLIA [id number] TEST PERFORMED AT: , Ordering Provider: MONICA VERDUZCO Report Released Date/Time: Aug 08, 2024 10:54 AM Reporting Lab: [address] [address] Performing Lab: [facility] [address] [address] VITAMIN D, 25-OH, TOTAL 51 ng/mL 30-100 VITAMIN D, 25-OH, D3 51 ng/mL VITAMIN D, 25-OH, D2 <4 ng/mL Aug 08, 2024 10:59 AM [facility] FOLATE (WROX) Specimen Type: SERUM No comment entered. Ordering Provider: MONICA VERDUZCO Report Released Date/Time: Aug 08, 2024 10:54 AM Reporting Lab: [facility] [address] [address] Performing Lab: [facility] [address] [facility] [address] FOLATE (WROX) 4.07 ng/mL L >5.2 Aug 08, 2024 10:59 AM [facility] MICROALBUMIN CREATININE RATIO PANEL Specimen Type: URINE No comment entered. Ordering Provider: MONICA VERDUZCO Report Released Date/Time: Aug 08, 2024 10:54 AM Reporting Lab: [facility] [address] [address] Performing Lab: [facility] [address] [address] MICROALBUMIN/ CREATININE RATIO 354.2 mg/g H 0-29.9 MICROALBUMIN, QUANTITATIVE 103.3 mg/dL RR UNAVAIL CREATININE URINE 291.68 mg/dL Aug 08, 2024 10:59 AM [facility] VITAMIN B12 Specimen Type: SERUM No comment entered. Ordering Provider: MONICA VERDUZCO Report Released Date/Time: Aug 08, 2024 10:54 AM Reporting Lab: [facility] [address] [address] Performing Lab: [facility] [address] [address] VITAMIN B12 1849 pg/mL H 200-900 Aug 08, 2024 10:59 AM [facility] LIPID PANEL FASTING Specimen Type: SERUM No comment entered. Ordering Provider: MONICA VERDUZCO Report Released Date/Time: Aug 08, 2024 10:54 AM Reporting Lab: [facility] [address] [address] Performing Lab: [facility] [address] [address] CHOLESTEROL 178 mg/dL TRIGLYCERIDE 97 mg/dL 0-150 LDL calculated 97 mg/dL 0-129 CHOL/HDL 2.9 HDL CHOLESTEROL 62 mg/dL H 40-60 Aug 08, 2024 10:59 AM [facility] BASIC METABOLIC PANEL (fasting) Specimen Type: SERUM No comment entered. Ordering Provider: MONICA VERDUZCO Report Released Date/Time: Aug 08, 2024 10:54 AM Reporting Lab: [facility] [address] [address] Performing Lab: [facility] [address] [address] UREA NITROGEN 22 mg/dL 7-25 GLUCOSE 91 mg/dL 65-100 SODIUM 138 mmol/L 135-145 POTASSIUM 4.8 mmol/L 3.5-5.0 CHLORIDE 105 mmol/L 100-110 CO2 25 meq/L 20-30 CREATININE, Serum 0.99 mg/dL 0.50-1.40 eGFR(CKD-EPI 2020) 77 mL/min >60 Aug 08, 2024 10:59 AM [facility] LIVER FUNCTION Specimen Type: SERUM No comment entered. Ordering Provider: MONICA VERDUZCO Report Released Date/Time: Aug 08, 2024 10:54 AM Reporting Lab: [address] [address] Performing Lab: [address] [address] PROTEIN,TOTAL 6.7 g/dL 6.0-8.3 ALBUMIN 3.4 g/dL L 3.5-5.0 ALKALINE PHOSPHATASE 151 U/L H 40-150 AST 17 U/L 5-34 ALT 8 U/L BILIRUBIN, TOTAL 0.5 mg/dL 0.2-1.2 Aug 08, 2024 10:59 AM [facility] HEMOGLOBIN A1C PANEL Specimen Type: BLOOD [...] Aug 08, 2024 10:54 AM Reporting Lab: [address] [address] Performing Lab: [facility] [place] [facility] [address] [address] HEMOGLOBIN A1C 5.2 4.0-5.6 Aug 08, 2024 10:59 AM [facility] [place] [facility] TSH Specimen Type: SERUM No comment entered. Ordering Provider: MONICA VERDUZCO Report Released Date/Time: Aug 08, 2024 10:54 AM Reporting Lab: [facility] [place] [place] [facility] [address] [address] Performing Lab: [place] [facility] [place] [facility] [address] [address] TSH 1.93 u[IU]/mL 0.35-5.00 Aug 08, 2024 10:59 AM [facility] PSA Specimen Type: SERUM No comment entered. Ordering Provider: MONICA VERDUZCO Report Released Date/Time: Aug 08, 2024 10:54 AM Reporting Lab: [facility] [place] [facility] [address] [address] Performing Lab: [facility] [address] [address] PSA 30.59 ng/mL H 0.00-4.00 Aug 08, 2024 10:59 AM [facility] CBC AND DIFF (AUTO) Specimen Type: BLOOD No comment entered. Ordering Provider: MONICA VERDUZCO Report Released Date/Time: Aug 08, 2024 10:54 AM Reporting Lab: [facility] [place] [facility] [address] [address] Performing Lab: [facility] [address] [address] WBC 7.81 10*3/uL 4.50-11.00 RBC 4.88 10*6/uL [...] the Encounter. The data comes from all [place] treatment facilities. Date/Time Radiology Report Provider Source Sep 01, 2024 10:[address] W/O CONT: JAKE DUGAN [id number] -[id number] M Exm Date: SEP 01, 2024@10:54 Req Phys: LUBA,NOLAN Pat Loc: CWM/SO/PACT 9 (Req'g Loc) Img Loc: NHM/CT Service: Unknown [facility] [place] [address] (Case [id number] COMPLETE) CT THORAX W/O CONT (CT Detailed) CPT:99432 Reason for Study: LDCT Clinical History: lung CA screen/surveillance as per protocol Report Status: Verified Date Reported: SEP 01, 2024 Date Verified: SEP 01, 2024 Deck Builder E-Sig:/ES/STARR MCDANIEL JR Report: Study: Noncontrast CT [...] CT Images From the Fleischner Society 2017. Shashank Chao, Rowena Delacruz, Mukund Luevano, et al. Mediastinum/hilum/lymph nodes: Normal. [...] Primary Interpreting Staff: STARR MCDANIEL JR, Radiologist (Deck Builder) /STARR HERNANDEZ JR [place] [facility] [place] [facility] Aug 16, 2024 02:[address] ABDOMEN AND PELVIS WITH CONTRAST: DUGANJAKE SANCHEZ [id number] -1945 M Exm Date: AUG 16, 2024@14:04 Req Phys: LUBA,NOLAN Pat Loc: CWM/SO/PACT 9 (Req'g Loc) Img Loc: NH/CT Service: Unknown [place] [facility] [facility] [place] [id number] (Case [id number] COMPLETE) CT ABDOMEN AND PELVIS WITH CONTRA(CT Detailed) CPT:24091 Contrast Media : Non-ionic Iodinated Reason for Study: prostate CA Clinical History: Report Status: Verified Date Reported: AUG 16, 2024 Date Verified: AUG 16, 2024 Deck Builder E-Sig: Report: CT ABDOMEN AND PELVIS WITH CONTRAST HISTORY: prostate CA COMPARISON: 03/14/2024 TECHNIQUE: CT of the abdomen and pelvis with multiplanar reformats was performed at the local [place] facility. A contrast-enhanced series was obtained in the portal venous phase. 350 images were received by the [place] National Teleradiology Program (NTP) for interpretation. RADIATION [...] tumor infiltration. READING PHYSICIAN: Kwabena Perez M.D. -[id number] 08/16/2024 20:18 [facility] National Teleradiology Program [phone] (For Medical Practitioner Use Only) Attention Patients / Veterans: If you have questions or concerns about these test results, please contact your ordering provider or primary care team. Primary Diagnostic Code: POSSIBLE MALIGNANCY Primary Interpreting Staff: RADIOLOGY,OUTSIDE SERVICE, Staff Physician / RADIOLOGY,OUTSIDE SERVICE [facility] Pathology Reports: +/- 30 days of [...] the Encounter. The data comes from all [place] treatment facilities. Date/Time Pathology Report Provider Source Aug 24, 2024 11:28 AM LR MICROBIOLOGY RE PORT: Reporting Lab: [facility] [CLIA# [id number]] [address] [place] [address] Accession [UID]: [id number] [[id number]] Received: Aug 24, 2024@11:28 Collection sample: URINE CLEAN CATCH Collection date: Aug 24, 2024 11:28 Site/Specimen: URINE Provider: NOLAN VERDUZCO Comment on specimen: POSITIVE CULTURE RESULTS MAY NOT REPRESENT CLINICAL INFECTION. CONSIDER NEED FOR ANTIBIOTICS IN THE CONTEXT OF UTI SYMPTOMS. Test(s) ordered: URINE CULTURE(MWROX).......... completed: Aug 29, 2024 08:33 * BACTERIOLOGY FINAL REPORT => Aug 29, 2024 08:32 TECH CODE: [id number] CULTURE RESULTS: 1. KLEBSIELLA OXYTOCA/RAOULTELLA ORNITHINOLYTICA - [...] Performing Laboratory: Klebsiella Oxytoca/raoultella Ornithinolytica Performed By: [facility] [CLIA# [id number]] [address] [place] [address] Pseudomonas Aeruginosa Performed By: [facility] [CLIA# [id number]] [address] [place] [address] Bact Report Remark #1 Performed By: [facility] [CLIA# [id number]] [address] [place] [address] Bact Report Remark #2 Performed By: [facility] [CLIA# [id number]] [address] [place] [address] ENRIQUETA FLORES KANOSH Encounter Notes: All associated encounter notes This section contains the clinical notes associated to the Encounter. Date/Time Encounter Note(s) Provider Source Aug 25, 2024 11:15 AM ADDENDUM: LOCAL TITLE: Addendum STANDARD TITLE: ADDENDUM DATE OF NOTE: AUG 25, 2024@11:15:12 ENTRY DATE: AUG 25, 2024@11:15:13 AUTHOR: ISABEL FREDERICKIGNER: URGENCY: STATUS: COMPLETED Please request most recent ER visit from [facility],Thanks! 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 While he was here request copy of progress note of the visit he has yesterday Aug 24, 2024 with [facility] to go over CT scan results also requested lab results he completed yesterday at the clinic. SURENDRA was given to the veterean to fill and records were provided to .[place] did not have any questions or concern at this time. 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 /viky MCINTYRE Signed: 08/25/2024 13:23 ISABEL FREDERICK Aug 25, 2024 10:57 AM NURSING NOTE: LOCAL TITLE: NURSING NOTE STANDARD TITLE: NURSING NOTE DATE OF NOTE: AUG 25, 2024@10:57 ENTRY DATE: AUG 25, 2024@10:57:39 AUTHOR: YOLY,ISABEL EXP COSIGNER: URGENCY: STATUS: COMPLETED NURSING NOTE Has ADDENDA came in to report to this engineering technical writer he went to [facility] ER as suggested by [place] urologist for hematuria and was told he has bacteria(UTI) he was given order for ABT and was waiting for pharmacy to fill so he can start taking. While he was here request copy of progress note of the visit he has yesterday Aug 24, 2024 with [facility] to go over CT scan results also requested lab results he completed yesterday at the clinic. SURENDRA was given to the veterean to fill and records were provided to . did not have any questions or concern at this time. /mariana/ ISABEL FREDERICK LPN LPN Signed: 08/25/2024 11:15 08/25/2024 ADDENDUM STATUS: COMPLETED Please request most recent ER visit from [facility],Thanks! /viky FREDERICK LPN LPN Signed: 08/25/2024 11:15 Receipt Acknowledged By: 08/25/2024 13:23 /mariana/ DANIELE MCINTYRE 08/25/2024 ADDENDUM STATUS: COMPLETED [employer] requested ED summary from [facility]. /mariana/ DANIELE MCINTYRE Signed: 08/25/2024 13:23 ISABEL FREDERICK
--- OUTSIDE RECORDS SUMMARY | 2024-09-07 15:34 | XMS_ITS | Encounter Summary ---
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 (MD) Organization [facility] Address [address] [place] [id number] Care Team Providers Care Tax Technician Name Role Phone ROWENA ROY Primary [...] Segal's Name Patient's Relationship to Policy Segal [facility] (R) MEDICARE ADVANTAGE [place] IN[place] IDUAL - [place] Sep 21, 2023 [id number] [phone] GENET BIRD S [facility] ([facility]) Sep 21, 2023 [id number] [phone] MARVIN BIRDI S PATIENT HUSKY MEDICAID HUSKY PLAN May 22, 2022 MEDICAI D [id number] GENET BIRD S PATIENT MEDICARE ([facility]) MEDICARE (M) PART B May 22, 2022 PART B [id number] [phone] MARVIN BIRDI S PATIENT MEDICARE ([facility]) MEDICARE (M) PART A Feb 19, 2009 PART A [id number] BIRD,GENET S PATIENT MEDICARE PART D (WNR) MEDICARE (M) PART D Jul 22, 2022 PART D [id number] [phone] GENET BIRD S PATIENT [facility] (WNR) MEDICARE ADVANTAGE [facility] (WNR) Sep 21, 2022 [id number] GENET BIRD S PATIENT [facility] (WNR) MEDICARE [facility] (WNR) Sep 21, 2022 [id number] [phone] GENET BIRD PATIENT Selected Encounter This section includes the [...] MEDICINE [facility] Sep 01, 2024 11:00 AM [facility] Sep 07, 2024 03:00 PM AMBULATORY - MEDICINE [facility] Dec 13, 2024 01:30 PM AMBULATORY - MEDICINE [facility] Jan 02, 2025 10:00 AM [facility] Active, Pending, and Scheduled Orders This section includes a listing of several types of active, pending, and scheduled orders, including clinic medications orders, diagnostic test orders, procedure orders and consult orders; where the start date of the order is 45 days before the date of the Encounter or 45 days after the date of theEncounter. The data comes from all [facility]. Test Date/Time Test Type Test Details Facility Name Aug 09, 2024 09:40 AM Consult Order COMMUNITY CARE-UROLOGY Cons [facility] Lab Results: +/- 30 days of the encounter This section includes the Chemistry and Hematology Lab Results on record with MD for the patient. Radiology Reports and Pathology Reports are provided separately, in subsequent sections. Lab Results This section contains the Chemistry/Hematology Results that were resulted 30 days before or 30 daysafter the date of the Encounter. Date/Time Source Result Type Result - Unit Interpretation Reference Range Comment Aug 24, 2024 11:28 AM ANCHORAGE CBC AND DIFF (AUTO) Specimen Type: BLOOD No comment entered. Ordering Provider: ROWENA ROY Report Released Date/Time: Aug 24, 2024 11:07 AM Reporting Lab: [facility] [address] [address] Performing Lab: [facility] [address] [address] WBC 8.84 10*3/uL 4.50-11.00 RBC 4.72 10*6/uL [...] 10*3/uL 0.00-0.00 Aug 24, 2024 11:28 AM [facility] MICROSCOPIC AUTOMATED, URINE Specimen Type: URINE Comment: If Glucose = >500 and Ketones are positive, please alert the Physician. Ordering Provider: MONICA VERDUZCO Report Released Date/Time: Aug 09, 2024 09:43 AM Reporting Lab: [facility] [address] [address] Performing Lab: [facility] [address] [address] UA WBC 0-5 /[HPF] 0-5 UA BACTERIA 1+ /[HPF] NoneObs UA TRIPLE PHOSPHATE CRYSTALS MODERATE /[HPF] Not Established UA RBC 6-10 /[HPF] H 0-3 Aug 24, 2024 11:28 AM [facility] URINALYSIS Specimen Type: URINE Comment: If Glucose = >500 and Ketones are positive, please alert the Physician. Ordering Provider: MONICA VERDUZCO Report Released Date/Time: Aug 09, 2024 09:43 AM Reporting Lab: [facility] [address] [address] Performing Lab: [address] [address] UA COLOR Light-Brown Yellow UA APPEARANCE Turbid Clear UA GLUCOSE Normal mg/dL Negative UA KETONES NEGATIVE mg/dL Negative UA BLOOD LARGE mg/dL Negative UA PROTEIN 100 mg/dL Negative UA NITRITE NEGATIVE mg/dL Negative UA BILIRUBIN NEGATIVE mg/dL Negative UA SPECIFIC GRAVITY 1.007 L 1.016-1.022 UA pH 8.5 5.0-9.0 UA UROBILINOGEN Normal mg/dL <2.0 UA LEUKOCYTE LARGE Negative Aug 08, 2024 10:59 AM [facility] VITAMIN D 25-OH (Therapy monitor) Specimen [...] For additional information, please refer to [email or web address] [email or web address]/FAQ 199 (This link is being provided for informational/ educational purposes only.) This test was developed and its analytical performance characteristics have been determined by [employer] [place], [place]. It has not been cleared or approved by the U.S. Food and Drug Administration. This assay has been validated pursuant to the CLIA regulations and is used for clinical purposes. This test was developed and its analytical performance characteristics have been determined by [facility] [place]. It has not been cleared or approved by the U.S. Food and Drug Administration. This assay has been validated pursuant to the CLIA regulations and is used for clinical purposes. Test Performed by [facility], [facility], [address] [place] [address] Dov Bahena M.D., Ph.D., Director of Laboratories , CLIA [id number] TEST PERFORMED AT: , Ordering Provider: MONICA VERDUZCO Report Released Date/Time: Aug 08, 2024 10:54 AM Reporting Lab: [address] [address] Performing Lab: [facility] [address] [address] VITAMIN D, 25-OH, TOTAL 51 ng/mL 30-100 VITAMIN D, 25-OH, D3 51 ng/mL VITAMIN D, 25-OH, D2 <4 ng/mL Aug 08, 2024 10:59 AM [facility] FOLATE (WROX) Specimen Type: SERUM No comment entered. Ordering Provider: MONICA VERDUZCO Report Released Date/Time: Aug 08, 2024 10:54 AM Reporting Lab: [facility] [address] [address] Performing Lab: [facility] [place] [facility] [address] [facility] [address] FOLATE (WROX) 4.07 ng/mL L >5.2 Aug 08, 2024 10:59 AM [facility] [place] [facility] MICROALBUMIN CREATININE RATIO PANEL Specimen Type: URINE No comment entered. Ordering Provider: MONICA VERDUZCO Report Released Date/Time: Aug 08, 2024 10:54 AM Reporting Lab: [facility] [place] [facility] [address] [address] Performing Lab: [facility] [place] [facility] [address] [address] MICROALBUMIN/ CREATININE RATIO 354.2 mg/g H 0-29.9 MICROALBUMIN, QUANTITATIVE 103.3 mg/dL RR UNAVAIL CREATININE URINE 291.68 mg/dL Aug 08, 2024 10:59 AM [facility] VITAMIN B12 Specimen Type: SERUM No comment entered. Ordering Provider: MONICA VERDUZCO Report Released Date/Time: Aug 08, 2024 10:54 AM Reporting Lab: [facility] [address] [address] Performing Lab: [facility]OURTRN [facility] [address] [address] VITAMIN B12 1849 pg/mL H 200-900 Aug 08, 2024 10:59 AM [facility] LIPID PANEL FASTING Specimen Type: SERUM No comment entered. Ordering Provider: MONICA VERDUZCO Report Released Date/Time: Aug 08, 2024 10:54 AM Reporting Lab: [facility] [place] [facility] [address] [address] Performing Lab: [facility]OURTRN [facility] [address] [address] CHOLESTEROL 178 mg/dL TRIGLYCERIDE 97 mg/dL 0-150 LDL calculated 97 mg/dL 0-129 CHOL/HDL 2.9 HDL CHOLESTEROL 62 mg/dL H 40-60 Aug 08, 2024 10:59 AM [facility] BASIC METABOLIC PANEL (fasting) Specimen Type: SERUM No comment entered. Ordering Provider: MONICA VERDUZCO Report Released Date/Time: Aug 08, 2024 10:54 AM Reporting Lab: [facility] [address] [address] Performing Lab: [facility] [address] [address] UREA NITROGEN 22 mg/dL 7-25 GLUCOSE 91 mg/dL 65-100 SODIUM 138 mmol/L 135-145 POTASSIUM 4.8 mmol/L 3.5-5.0 CHLORIDE 105 mmol/L 100-110 CO2 25 meq/L 20-30 CREATININE, Serum 0.99 mg/dL 0.50-1.40 eGFR(CKD-EPI 2020) 77 mL/min >60 Aug 08, 2024 10:59 AM [facility] HEMOGLOBIN A1C PANEL Specimen Type: BLOOD [...] Aug 08, 2024 10:54 AM Reporting Lab: [address] [address] Performing Lab: [address] [address] HEMOGLOBIN A1C 5.2 4.0-5.6 Aug 08, 2024 10:59 AM [facility] LIVER FUNCTION Specimen Type: SERUM No comment entered. Ordering Provider: MONICA VERDUZCO Report Released Date/Time: Aug 08, 2024 10:54 AM Reporting Lab: [facility] [address] [address] Performing Lab: [address] [address] PROTEIN,TOTAL 6.7 g/dL 6.0-8.3 ALBUMIN 3.4 g/dL L 3.5-5.0 ALKALINE PHOSPHATASE 151 U/L H 40-150 AST 17 U/L 5-34 ALT 8 U/L BILIRUBIN, TOTAL 0.5 mg/dL 0.2-1.2 Aug 08, 2024 10:59 AM [facility] TSH Specimen Type: SERUM No comment entered. Ordering Provider: MONICA VERDUZCO Report Released Date/Time: Aug 08, 2024 10:54 AM Reporting Lab: [facility] [address] [address] Performing Lab: [address] [address] TSH 1.93 u[IU]/mL 0.35-5.00 Aug 08, 2024 10:59 AM [facility] PSA Specimen Type: SERUM No comment entered. Ordering Provider: MONICA VERDUZCO Report Released Date/Time: Aug 08, 2024 10:54 AM Reporting Lab: [facility] [address] [address] Performing Lab: [address] [address] PSA 30.59 ng/mL H 0.00-4.00 Aug 08, 2024 10:59 AM [facility] CBC AND DIFF (AUTO) Specimen Type: BLOOD No comment entered. Ordering Provider: MONICA VERDUZCO Report Released Date/Time: Aug 08, 2024 10:54 AM Reporting Lab: [facility] [address] [address] Performing Lab: [facility] [address] WBC 7.81 10*3/uL 4.50-11.00 RBC 4.88 10*6/uL [...] the Encounter. The data comes from all MD treatment facilities. Date/Time Radiology Report Provider Source Sep 01, 2024 10:[address] W/O CONT: JAKE BIRD [id number] -1945 M Exm Date: SEP 01, 2024@10:54 Req Phys: LUBA,NOLAN Pat Loc: CWM/SO/PACT 9 (Req'g Loc) Img Loc: NHM/CT Service: Unknown [facility] [place] [id number] (Case [id number] COMPLETE) CT THORAX W/O CONT (CT Detailed) CPT:63673 Reason for Study: LDCT Clinical History: lung CA screen/surveillance as per protocol Report Status: Verified Date Reported: SEP 01, 2024 Date Verified: SEP 01, 2024 Tractor Operator Helper E-Sig:/ES/STARR MCDANIEL JR Report: Study: Noncontrast CT [...] Primary Interpreting Staff: STARR MCDANIEL JR, Radiologist (Tractor Operator Helper) /STARR HERNANDEZ JR [facility] [place] [facility] Aug 16, 2024 02:[address] ABDOMEN AND PELVIS WITH CONTRAST: JAKE BIRD [id number] -1945 M Exm Date: AUG 16, 2024@14:04 Req Phys: NOLAN VERDUZCO Pat Loc: CWM/SO/PACT 9 (Req'g Loc) Img Loc: NHM/CT Service: Unknown [facility] [address] (Case [id number] COMPLETE) CT ABDOMEN AND PELVIS WITH CONTRA(CT Detailed) CPT:51367 Contrast Media : Non-ionic Iodinated Reason for Study: prostate CA Clinical History: Report Status: Verified Date Reported: AUG 16, 2024 Date Verified: AUG 16, 2024 Tractor Operator Helper E-Sig: Report: CT ABDOMEN AND PELVIS WITH CONTRAST HISTORY: prostate CA COMPARISON: 03/14/2024 TECHNIQUE: CT of the abdomen and pelvis with multiplanar reformats was performed at the local MD facility. A contrast-enhanced series was obtained in the portal venous phase. 350 images were received by the MD National Teleradiology Program (NTP) for interpretation. RADIATION [...] tumor infiltration. READING PHYSICIAN: Kwabena Perez M.D. -[phone] 08/16/2024 20:18 [facility] National Teleradiology Program [phone] (For Medical Practitioner Use Only) Attention Patients / Veterans: If you have questions or concerns about these test results, please contact your ordering provider or primary care team. Primary Diagnostic Code: POSSIBLE MALIGNANCY Primary Interpreting Staff: RADIOLOGY,OUTSIDE SERVICE, Staff Physician / RADIOLOGY,OUTSIDE SERVICE [facility] Pathology Reports: +/- 30 days of [...] the Encounter. The data comes from all MD treatment facilities. Date/Time Pathology Report Provider Source Aug 24, 2024 11:28 AM LR MICROBIOLOGY RE PORT: Reporting Lab: [facility] [CLIA# [id number]] [address] [place] [address] Accession [UID]: [id number] [[id number]] Received: Aug 24, 2024@11:28 Collection sample: URINE CLEAN CATCH Collection date: Aug 24, 2024 11:28 Site/Specimen: URINE Provider: NOLAN VERDUZCO Comment on specimen: POSITIVE CULTURE RESULTS MAY NOT REPRESENT CLINICAL INFECTION. CONSIDER NEED FOR ANTIBIOTICS IN THE CONTEXT OF UTI SYMPTOMS. Test(s) ordered: URINE CULTURE(MWROX).......... completed: Aug 29, 2024 08:33 * BACTERIOLOGY FINAL REPORT => Aug 29, 2024 08:32 TECH CODE: [id number] CULTURE RESULTS: 1. KLEBSIELLA OXYTOCA/RAOULTELLA ORNITHINOLYTICA - [...] Klebsiella Oxytoca/raoultella Ornithinolytica Performed By: [facility] [CLIA# [id number]] [address] [place] [address] Pseudomonas Aeruginosa Performed By: [facility] [CLIA# [id number]] [address] [place] [address] Bact Report Remark #1 Performed By: [facility] [CLIA# [id number]] [address] [place] [address] Bact Report Remark #2 Performed By: [facility] [CLIA# [id number]] [address] [place] [address] JURKOWSENRIQUETA MILLER Encounter Notes: All associated encounter notes This section contains the clinical notes associated to the Encounter. 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 He also reported he completed CT scan ordered by Provider last visit and requested copy of report while in [place] however he does not know the results.This freelance copywriter advised [place] I will pass on the request to Provider to see Oncologist and results of CT scan. was advised by this freelance copywriter if he continued to bleed and have concerns he should go to ER to get evaluated declined he stated they will not do anything for him only tell him he either has to have catherered terminologist or have surgery. also reported to this freelance copywriter he is scheduled [facility] at 9:45 am and will discuss concerns and request refrerral to oncologist he did not have the urologist information at that time but will call back the [facility] to provided that information. /mariana/ ISABEL FREDERICK LPN LPN Signed: 08/22/2024 14:43 ISABEL FREDERICK
--- OUTSIDE RECORDS SUMMARY | 2024-09-07 15:34 | XMS_ITS | Encounter Summary ---
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 ([place]) Organization [facility]) Address [address] [place] [id number] Care Team Providers Care Prop Maker Name Role Phone ROWENA ROY Primary [...] Segal's Name Patient's Relationship to Policy [facility]al [facility]VANTAGE [place] INDIV IDUAL - [place] Sep 21, 2023 [id number] [phone] GENET DUGAN S [facility] ([facility]) Sep 21, 2023 [id number] [phone] DUGAN,GENET S PATIENT [place] MEDICAID [place] PLAN May 22, 2022 MEDICAI D [id number] MARVNI DUGANI S PATIENT MEDICARE (WN) MEDICARE (M) PART B May 22, 2022 PART B [id number] DUGAN,GENET S PATIENT MEDICARE (WNR) MEDICARE (M) PART A Feb 19, 2009 PART A [id number] DUGAN,GENET S PATIENT MEDICARE PART D (WNR) MEDICARE (M) PART D Jul 22, 2022 PART D [id number] GENET DUGAN PATIENT [facility] (WNR) MEDICARE ADVANTAGE [facility] (WNR) Sep 21, 2022 [id number] GENET DUGAN PATIENT [facility] MCR (WNR) MEDICARE ADVANTAGE MCR (WNR) Sep 21, 2022 [id number] GENET DUGAN PATIENT Selected Encounter This section [...] 09, 2024 09:00 AM AMBULATORY - MEDICINE [place] [facility] [place] [facility] Aug 16, 2024 12:00 PM AMBULATORY - NONE ID [facility] [place] [facility] Aug 22, 2024 11:20 AM AMBULATORY - MEDICINE ID C [facility] [place] [facility] Aug 24, 2024 11:00 AM [facility] Sep 01, 2024 11:00 AM AMBULATORY - NONE ID [facility] [place] [facility] Sep 07, 2024 03:00 PM AMBULATORY - MEDICINE ID C [facility] [place] [facility] Dec 13, 2024 01:30 PM AMBULATORY - [facility] Jan 02, 2025 10:00 AM AMBULATORY - MEDICINE [facility] [place] [facility] Active, Pending, and Scheduled Orders This section includes a listing of several types of active, pending, and scheduled orders, including clinic medications orders, diagnostic test orders, procedure orders and consult orders; where the start date of the order is 45 days before the date of the Encounter or 45 days after the date of theEncounter. The data comes from all ID treatment facilities. Test Date/Time Test Type Test Details Facility Name Aug 09, 2024 09:40 AM Consult Order COMMUNITY CARE-UROLOGY Cons Project Estimator's Choice [facility] Lab Results: +/- 30 days of the encounter This section includes the Chemistry and Hematology Lab Results on record with ID for the patient. Radiology Reports and Pathology Reports are provided separately, in subsequent sections. Lab Results This section contains the Chemistry/Hematology Results that were resulted 30 days before or 30 daysafter the date of the Encounter. Date/Time Source Result Type Result - Unit Interpretation Reference Range Comment Aug 24, 2024 11:28 AM [facility] CBC AND DIFF (AUTO) Specimen Type: BLOOD No comment entered. Ordering Provider: ROWENA ROY Report Released Date/Time: Aug 24, 2024 11:07 AM Reporting Lab: [address] [address] Performing Lab: [address] [address] WBC 8.84 10*3/uL 4.50-11.00 RBC 4.72 10*6/uL [...] 10*3/uL 0.00-0.00 Aug 24, 2024 11:28 AM [facility] MICROSCOPIC AUTOMATED, URINE Specimen Type: URINE Comment: If Glucose = >500 and Ketones are positive, please alert the Physician. Ordering Provider: MONICA VERDUZCO Report Released Date/Time: Aug 09, 2024 09:43 AM Reporting Lab: [address] [address] Performing Lab: [address] [address] UA WBC 0-5 /[HPF] 0-5 UA BACTERIA 1+ /[HPF] NoneObs UA TRIPLE PHOSPHATE CRYSTALS MODERATE /[HPF] Not Established UA RBC 6-10 /[HPF] H 0-3 Aug 24, 2024 11:28 AM [facility] URINALYSIS Specimen Type: URINE Comment: If Glucose = >500 and Ketones are positive, please alert the Physician. Ordering Provider: MONICA VERDUZCO Report Released Date/Time: Aug 09, 2024 09:43 AM Reporting Lab: [address] [address] Performing Lab: [address] [address] UA COLOR Light-Brown Yellow UA APPEARANCE Turbid Clear UA GLUCOSE Normal mg/dL Negative UA KETONES NEGATIVE mg/dL Negative UA BLOOD LARGE mg/dL Negative UA PROTEIN 100 mg/dL Negative UA NITRITE NEGATIVE mg/dL Negative UA BILIRUBIN NEGATIVE mg/dL Negative UA SPECIFIC GRAVITY 1.007 L 1.016-1.022 UA pH 8.5 5.0-9.0 UA UROBILINOGEN Normal mg/dL <2.0 UA LEUKOCYTE LARGE Negative Aug 08, 2024 10:59 AM [facility] VITAMIN D 25-OH (Therapy monitor) Specimen [...] For additional information, please refer to http://educatio n.Foody.com/faq/FAQ 199 (This link is being provided for informational/ educational purposes only.) This test was developed and its analytical performance characteristics have been determined by [employer] [place]. It has not been cleared or approved by the U.S. Food and Drug Administration. This assay has been validated pursuant to the CLIA regulations and is used for clinical purposes. This test was developed and its analytical performance characteristics have been determined by [employer] [place] It has not been cleared or approved by the U.S. Food and Drug Administration. This assay has been validated pursuant to the CLIA regulations and is used for clinical purposes. Test Performed by [facility], [facility] [facility], [address] [place] [address] Dov Bahena M.D., Ph.D., Director of Laboratories , CLIA [id number] TEST PERFORMED AT: , Ordering Provider: MONICA VERDUZCO Report Released Date/Time: Aug 08, 2024 10:54 AM Reporting Lab: [facility] [address] [facility] [address] Performing Lab: [facility] [address] [address] VITAMIN D, 25-OH, TOTAL 51 ng/mL 30-100 VITAMIN D, 25-OH, D3 51 ng/mL VITAMIN D, 25-OH, D2 <4 ng/mL Aug 08, 2024 10:59 AM [facility] HCS FOLATE (WROX) Specimen Type: SERUM No comment entered. Ordering Provider: MONICA VERDUZCO Report Released Date/Time: Aug 08, 2024 10:54 AM Reporting Lab: [place] [facility] [place] [facility] [address] [facility] [address] Performing Lab: [facility] [place] [facility] [address] [facility] [address] FOLATE (WROX) 4.07 ng/mL L >5.2 Aug 08, 2024 10:59 AM [facility] VITAMIN B12 Specimen Type: SERUM No comment entered. Ordering Provider: MONICA VERDUZCO Report Released Date/Time: Aug 08, 2024 10:54 AM Reporting Lab: [facility] [address] [facility] [address] Performing Lab: [facility]RSOUT[facility]ERN [facility]USETS [address] [address] VITAMIN B12 1849 pg/mL H 200-900 Aug 08, 2024 10:59 AM [facility] [place] MICROALBUMIN CREATININE RATIO PANEL Specimen Type: URINE No comment entered. Ordering Provider: MONICA VERDUZCO Report Released Date/Time: Aug 08, 2024 10:54 AM Reporting Lab: [facility] [place] [facility] [address] [facility] [address] Performing Lab: [facility] [address] [facility] [address] MICROALBUMIN/ CREATININE RATIO 354.2 mg/g H 0-29.9 MICROALBUMIN, QUANTITATIVE 103.3 mg/dL RR UNAVAIL CREATININE URINE 291.68 mg/dL Aug 08, 2024 10:59 AM [facility] BASIC METABOLIC PANEL (fasting) Specimen Type: SERUM No comment entered. Ordering Provider: MONICA VERDUZCO Report Released Date/Time: Aug 08, 2024 10:54 AM Reporting Lab: [facility] [address] [facility] [address] Performing Lab: [facility]N [facility] [address] [address] UREA NITROGEN 22 mg/dL 7-25 GLUCOSE 91 mg/dL 65-100 SODIUM 138 mmol/L 135-145 POTASSIUM 4.8 mmol/L 3.5-5.0 CHLORIDE 105 mmol/L 100-110 CO2 25 meq/L 20-30 CREATININE, Serum 0.99 mg/dL 0.50-1.40 eGFR(CKD-EPI 2020) 77 mL/min >60 Aug 08, 2024 10:59 AM [facility] LIPID PANEL FASTING Specimen Type: SERUM No comment entered. Ordering Provider: MONICA VERDUZCO Report Released Date/Time: Aug 08, 2024 10:54 AM Reporting Lab: [facility] [address] [facility] [address] Performing Lab: [facility] [address] [facility] [address] CHOLESTEROL 178 mg/dL TRIGLYCERIDE 97 mg/dL 0-150 LDL calculated 97 mg/dL 0-129 CHOL/HDL 2.9 HDL CHOLESTEROL 62 mg/dL H 40-60 Aug 08, 2024 10:59 AM [facility] LIVER FUNCTION Specimen Type: SERUM No comment entered. Ordering Provider: MONICA VERDUZCO Report Released Date/Time: Aug 08, 2024 10:54 AM Reporting Lab: [facility] [address] [facility] [address] Performing Lab: [facility] [address] [facility] [facility] [address] PROTEIN,TOTAL 6.7 g/dL 6.0-8.3 ALBUMIN 3.4 g/dL L 3.5-5.0 ALKALINE PHOSPHATASE 151 U/L H 40-150 AST 17 U/L 5-34 ALT 8 U/L BILIRUBIN, TOTAL 0.5 mg/dL 0.2-1.2 Aug 08, 2024 10:59 AM [facility] HEMOGLOBIN A1C PANEL Specimen [...] 08, 2024 10:54 AM Reporting Lab: [facility] [address] [facility] [address] Performing Lab: [facility]ITALRSOUTHE[facility]ENTERN [facility]ITALUSETS [facility] [address] [facility] [address] HEMOGLOBIN A1C 5.2 4.0-5.6 Aug 08, 2024 10:59 AM [facility]RL [facility] TSH Specimen Type: SERUM No comment entered. Ordering Provider: MONICA VERDUZCO Report Released Date/Time: Aug 08, 2024 10:54 AM Reporting Lab: [facility]OSPITALRUAB [facility] HOSPITALTRN [facility]ITALUSETS [facility] [address] [facility] [address] Performing Lab: [facility]ITALRSOUTHEAST HEALTH MED[facility] CENTERN [facility]PITALUSE[address] [address] TSH 1.93 u[IU]/mL 0.35-5.00 Aug 08, 2024 10:59 AM [facility]ITALRSOUTHE[facility] CENTERN [facility] PSA Specimen Type: SERUM No comment entered. Ordering Provider: MONICA VERDUZCO Report Released Date/Time: Aug 08, 2024 10:54 AM Reporting Lab: [facility]ITALRL [facility]ERN [facility]ITALUSETS [facility] [address] [facility] [address] Performing Lab: [facility]ITALRSOUTHEAST HEALTH MEDICAL CENTERN [facility]PITALUSETS [address] [address] PSA 30.59 ng/mL H 0.00-4.00 Aug 08, 2024 10:59 AM [facility] CBC AND DIFF (AUTO) Specimen Type: BLOOD No comment entered. Ordering Provider: MONICA VERDUZCO Report Released Date/Time: Aug 08, 2024 10:54 AM Reporting Lab: [facility]ITALRSOUTHEAST [facility] CENTERN [facility]ITALUSETS [facility] [address] [facility] [address] Performing Lab: [facility]ITALRSOUTHE[facility] CENTERN [facility]ITALUSETS [address] [address] WBC 7.81 10*3/uL 4.50-11.00 RBC 4.88 10*6/uL [...] ALL of a patient's completed or amended ID Advance and Rescinded Directives. The entries below indicate that a directive exists for the patient, but an actual copy is not included with this document. The data comes from all ID facilities. Date Advance Directives Provider Source Apr 04, 2024 ADVANCE DIRECTIVE [facility] Radiology Reports: +/- 30 days [...] the Encounter. The data comes from all ID treatment facilities. Date/Time Radiology Report Provider Source Aug 16, 2024 02:[address] ABDOMEN AND PELVIS WITH CONTRAST: JAKE DUGAN [id number] -[id number] M Exm Date: AUG 16, 2024@14:04 Req Phys: LUBA,NOLAN Pat Loc: CWM/SO/PACT 9 (Req'g Loc) Img Loc: NHM/CT Service: Unknown ID CNTRL [facility] [place] [address] (Case [id number] COMPLETE) CT ABDOMEN AND PELVIS WITH CONTRA(CT Detailed) CPT:02054 Contrast Media : Non-ionic Iodinated Reason for Study: prostate CA Clinical History: Report Status: Verified Date Reported: AUG 16, 2024 Date Verified: AUG 16, 2024 Office Associate E-Sig: Report: CT ABDOMEN AND PELVIS WITH CONTRAST HISTORY: prostate CA COMPARISON: 03/14/2024 TECHNIQUE: CT of the abdomen and pelvis with multiplanar reformats was performed at the local ID facility. A contrast-enhanced series was obtained in the portal venous phase. 350 images were received by the ID National Teleradiology Program (NTP) for interpretation. RADIATION [...] tumor infiltration. READING PHYSICIAN: Kwabena Perez M.D. -[phone] 08/16/2024 20:18 [facility] National Teleradiology Program [phone] (For Medical Practitioner Use Only) Attention Patients / Veterans: If you have questions or concerns about these test results, please contact your ordering provider or primary care team. Primary Diagnostic Code: POSSIBLE MALIGNANCY Primary Interpreting Staff: RADIOLOGY,OUTSIDE SERVICE, Staff Physician / RADIOLOGY,OUTSIDE SERVICE [facility] Pathology Reports: +/- 30 [...] the Encounter. The data comes from all ID treatment facilities. Date/Time Pathology Report Provider Source Aug 24, 2024 11:28 AM LR MICROBIOLOGY RE PORT: Reporting Lab: [facility] [CLIA# [id number]] [address] [place] [id number] Accession [UID]: [id number] [[id number]] Received: Aug 24, 2024@11:28 Collection sample: URINE CLEAN CATCH Collection date: Aug 24, 2024 11:28 Site/Specimen: URINE Provider: NOLAN VERDUZCO Comment on specimen: POSITIVE CULTURE RESULTS MAY NOT REPRESENT CLINICAL INFECTION. CONSIDER NEED FOR ANTIBIOTICS IN THE CONTEXT OF UTI SYMPTOMS. Test(s) ordered: URINE CULTURE([facility]).......... completed: Aug 29, 2024 08:33 * BACTERIOLOGY FINAL REPORT => Aug 29, 2024 08:32 TECH CODE: [id number] CULTURE RESULTS: 1. KLEBSIELLA OXYTOCA/RAOULTELLA ORNITHINOLYTICA - [...] Performing Laboratory: Klebsiella Oxytoca/raoultella Ornithinolytica Performed By: [facility] [CLIA# [id number]] [address] [place] [address] Pseudomonas Aeruginosa Performed By: [facility] [CLIA# [id number]] [address] [place] [address] Bact Report Remark #1 Performed By: [facility] [CLIA# [id number]] [address] [place] [address] Bact Report Remark #2 Performed By: [facility] [CLIA# [id number]] [address] [place] [address] ENRIQUETA FLORES BRISTOW Encounter Notes: All associated encounter notes This [...] REQUIRED Electronically Filed: 08/25/2024 by: BRANDIE WEINER DIESEL ENGINE I PIPE FITTER BRANDIE WEINER ID CNT[facility]
--- OUTSIDE RECORDS SUMMARY | 2024-09-07 15:34 | XMS_ITS | Encounter Summary ---
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 [place] Organization [facility] [place] Address [address] [place] [address] Care Team Providers Care Inbound Sales Manager Name Role Phone ROWENA ROY Primary Care Provider [facility] Insurance Providers: All historical and [...] Relationship to Policy Seg[facility]) MEDICARE ADVANTAGE [place] INDIV IDUAL - [place] Sep 21, 2023 [id number] [phone] GENET DUGAN S [facility] ([facility]) Sep 21, 2023 [id number] [phone] GENET DUGAN S PATIENT HUSKY MEDICAID HUSKY PLAN May 22, 2022 MEDICAI D [id number] GENET DUGAN S PATIENT MEDICARE ([facility]) MEDICARE () PART B May 22, 2022 PART B [id number] GENET DUGAN S PATIENT MEDICARE (WNR) MEDICARE () PART A Feb 19, 2009 PART A [id number] GENET DUGAN S PATIENT MEDICARE PART D (WNR) MEDICARE (M) PART D Jul 22, 2022 PART D [id number] MARVIN DUGANI S PATIENT [facility] (WNR) MEDICARE ADVANTAGE [facility] (WNR) Sep 21, 2022 [id number] DUGAN,GENET S PATIENT [facility] (WNR) MEDICARE ADVANTAGE [facility] (WNR) Sep 21, 2022 [id number] [phone] GENET DUGAN S PATIENT Selected Encounter This section includes the information on record at AL for the Encounter. 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 ROWENA ROY Leola Encounter Template Text not used by [...] 01, 2024 11:00 AM AMBULATORY - NONE [facility] [place] [facility] Sep 07, 2024 03:00 PM AMBULATORY - MEDICINE [place] [facility] [place] [facility] Dec 13, 2024 01:30 PM [facility] Jan 02, 2025 10:00 AM AMBULATORY - MEDICINE [place] [facility] [place] [facility] Active, Pending, and Scheduled Orders This section includes a listing of several types of active, pending, and scheduled orders, including clinic medications orders, diagnostic test orders, procedure orders and consult orders; where the start date of the order is 45 days before the date of the Encounter or 45 days after the date of theEncounter. The data comes from all [place] treatment facilities. Test Date/Time Test Type Test Details Facility Name Aug 09, 2024 09:40 AM Consult Order COMMUNITY CARE-UROLOGY Cons Tent Worker's Choice [facility] Lab Results: +/- 30 days of [...] Range Comment Aug 24, 2024 11:28 AM [place] CBC AND DIFF (AUTO) Specimen Type: BLOOD No comment entered. Ordering Provider: ROWENA ROY Report Released Date/Time: Aug 24, 2024 11:07 AM Reporting Lab: [facility] [address] [facility] [address] Performing Lab: [facility] [address] [facility] [address] WBC 8.84 10*3/uL 4.50-11.00 RBC 4.72 10*6/uL [...] 10*3/uL 0.00-0.00 Aug 24, 2024 11:28 AM [facility] MICROSCOPIC AUTOMATED, URINE Specimen Type: URINE Comment: If Glucose = >500 and Ketones are positive, please alert the Physician. Ordering Provider: MONICA VERDUZCO Report Released Date/Time: Aug 09, 2024 09:43 AM Reporting Lab: [facility] [address] [facility] [address] Performing Lab: [address] [address] UA WBC 0-5 /[HPF] 0-5 UA BACTERIA 1+ /[HPF] NoneObs UA TRIPLE PHOSPHATE CRYSTALS MODERATE /[HPF] Not Established UA RBC 6-10 /[HPF] H 0-3 Aug 24, 2024 11:28 AM [facility] URINALYSIS Specimen Type: URINE Comment: If Glucose = >500 and Ketones are positive, please alert the Physician. Ordering Provider: MONICA VERDUZCO Report Released Date/Time: Aug 09, 2024 09:43 AM Reporting Lab: [facility] [address] [facility] [address] Performing Lab: [address] [address] UA COLOR Light-Brown Yellow UA APPEARANCE Turbid Clear UA GLUCOSE Normal mg/dL Negative UA KETONES NEGATIVE mg/dL Negative UA BLOOD LARGE mg/dL Negative UA PROTEIN 100 mg/dL Negative UA NITRITE NEGATIVE mg/dL Negative UA BILIRUBIN NEGATIVE mg/dL Negative UA SPECIFIC GRAVITY 1.007 L 1.016-1.022 UA pH 8.5 5.0-9.0 UA UROBILINOGEN Normal mg/dL <2.0 UA LEUKOCYTE LARGE Negative Aug 08, 2024 10:59 AM [facility] VITAMIN D 25-OH (Therapy monitor) Specimen [...] For additional information, please refer to http://educatio [email or web address].Busy Moos/faq/FAQ 199 (This link is being provided for informational/ educational purposes only.) This test was developed and its analytical performance characteristics have been determined by [employer] [place], [place]. It has not been cleared or approved by the U.S. Food and Drug Administration. This assay has been validated pursuant to the CLIA regulations and is used for clinical purposes. This test was developed and its analytical performance characteristics have been determined by [employer] [place], [place]. It has not been cleared or approved by the U.S. Food and Drug Administration. This assay has been validated pursuant to the CLIA regulations and is used for clinical purposes. Test Performed by [facility], [employer] [facility], [address] [place] [address] Dov Bahena M.D., Ph.D., Director of Laboratories , CLIA [id number] TEST PERFORMED AT: , Ordering Provider: MONICA VERDUZCO Report Released Date/Time: Aug 08, 2024 10:54 AM Reporting Lab: [facility] [address] [facility] [address] Performing Lab: [facility] [address] [address] VITAMIN D, 25-OH, TOTAL 51 ng/mL 30-100 VITAMIN D, 25-OH, D3 51 ng/mL VITAMIN D, 25-OH, D2 <4 ng/mL Aug 08, 2024 10:59 AM [facility] [place] [facility] FOLATE (WROX) Specimen Type: SERUM No comment entered. Ordering Provider: MONICA VERDUZCO Report Released Date/Time: Aug 08, 2024 10:54 AM Reporting Lab: [place] [facility] [place] [facility] [address] [facility] [address] Performing Lab: [place] [facility] [place] [facility] [address] [facility] [address] FOLATE (WROX) 4.07 ng/mL L >5.2 Aug 08, 2024 10:59 AM [facility] [place] [facility] MICROALBUMIN CREATININE RATIO PANEL Specimen Type: URINE No comment entered. Ordering Provider: MONICA VERDUZCO Report Released Date/Time: Aug 08, 2024 10:54 AM Reporting Lab: [facility] [place] [facility] [address] [facility] [address] Performing Lab: [facility] [place] [address] [address] MICROALBUMIN/ CREATININE RATIO 354.2 mg/g H 0-29.9 MICROALBUMIN, QUANTITATIVE 103.3 mg/dL RR UNAVAIL CREATININE URINE 291.68 mg/dL Aug 08, 2024 10:59 AM [facility] VITAMIN B12 Specimen Type: SERUM No comment entered. Ordering Provider: MONICA VERDUZCO Report Released Date/Time: Aug 08, 2024 10:54 AM Reporting Lab: [facility] [place] [facility] [address] [facility] [address] Performing Lab: [facility] [address] [facility] [address] VITAMIN B12 1849 pg/mL H 200-900 Aug 08, 2024 10:59 AM [facility] LIPID PANEL FASTING Specimen Type: SERUM No comment entered. Ordering Provider: MONICA VERDUZCO Report Released Date/Time: Aug 08, 2024 10:54 AM Reporting Lab: [facility] [place] [place] [address] [address] Performing Lab: [facility] [address] [address] CHOLESTEROL 178 mg/dL TRIGLYCERIDE 97 mg/dL 0-150 LDL calculated 97 mg/dL 0-129 CHOL/HDL 2.9 HDL CHOLESTEROL 62 mg/dL H 40-60 Aug 08, 2024 10:59 AM [facility] BASIC METABOLIC PANEL (fasting) Specimen Type: SERUM No comment entered. Ordering Provider: MONICA VERDUZCO Report Released Date/Time: Aug 08, 2024 10:54 AM Reporting Lab: [facility] [address] [facility] [address] Performing Lab: [facility] [address] [facility] [address] UREA NITROGEN 22 mg/dL 7-25 GLUCOSE 91 mg/dL 65-100 SODIUM 138 mmol/L 135-145 POTASSIUM 4.8 mmol/L 3.5-5.0 CHLORIDE 105 mmol/L 100-110 CO2 25 meq/L 20-30 CREATININE, Serum 0.99 mg/dL 0.50-1.40 eGFR(CKD-EPI 2020) 77 mL/min >60 Aug 08, 2024 10:59 AM [facility] HEMOGLOBIN A1C PANEL Specimen Type: BLOOD [...] Aug 08, 2024 10:54 AM Reporting Lab: [facility] [address] [facility] [address] Performing Lab: [facility] [address] [facility] [address] HEMOGLOBIN A1C 5.2 4.0-5.6 Aug 08, 2024 10:59 AM [facility] LIVER FUNCTION Specimen Type: SERUM No comment entered. Ordering Provider: MONICA VERDUZCO Report Released Date/Time: Aug 08, 2024 10:54 AM Reporting Lab: [facility] [place] [facility] [address] [facility] [address] Performing Lab: [facility] [place] [facility] [address] [facility] [address] PROTEIN,TOTAL 6.7 g/dL 6.0-8.3 ALBUMIN 3.4 g/dL L 3.5-5.0 ALKALINE PHOSPHATASE 151 U/L H 40-150 AST 17 U/L 5-34 ALT 8 U/L BILIRUBIN, TOTAL 0.5 mg/dL 0.2-1.2 Aug 08, 2024 10:59 AM [facility] PSA Specimen Type: SERUM No comment entered. Ordering Provider: MONICA VERDUZCO Report Released Date/Time: Aug 08, 2024 10:54 AM Reporting Lab: [facility] [place] [facility] [address] [facility] [address] Performing Lab: [facility] [address] [address] PSA 30.59 ng/mL H 0.00-4.00 Aug 08, 2024 10:59 AM [facility] TSH Specimen Type: SERUM No comment entered. Ordering Provider: MONICA VERDUZCO Report Released Date/Time: Aug 08, 2024 10:54 AM Reporting Lab: [facility] [place] [facility] [address] [facility] [address] Performing Lab: [place] [place] [address] [address] TSH 1.93 u[IU]/mL 0.35-5.00 Aug 08, 2024 10:59 AM [facility] CBC AND DIFF (AUTO) Specimen Type: BLOOD No comment entered. Ordering Provider: MONICA VERDUZCO Report Released Date/Time: Aug 08, 2024 10:54 AM Reporting Lab: [facility] [place] [facility] [address] [facility] [address] Performing Lab: [place] [facility] [place] [address] [address] WBC 7.81 10*3/uL 4.50-11.00 RBC 4.88 10*6/uL [...] PM 68 154/78 20 97 0 70 [facility] IELD Social History: Smoking Status (Most current) [...] place. Date/Time Current Smoking Status Comment Facil [facility] May 31, 2024 10:00 AM VA-TOBACCO NEVER USED [facility] Tobacco Use History This section includes a history of the smoking, or tobacco-related health factors, that were collected on or before the date of the Encounter. The data comes from the [place] facility where the Encounter took place. Date/Time Smoking Status/Tobacco Use Comment F acility Jun 23, 2023 09:00 AM VA-TOBACCO FORMER USER [facility] Jun 23, 2023 09:00 AM VA-TOBACCO QUIT 15 YRS OR MORE [facility] May 01, 2022 01:30 PM VA-TOBACCO FORMER USER [facility] May 01, 2022 01:30 PM VA-TOBACCO QUIT 15 YRS OR MORE [facility] Apr 15, 2021 03:00 PM VA-TOBACCO FORMER USER [facility] Apr 15, 2021 03:00 PM VA-TOBACCO QUIT 15 YRS OR MORE [facility] Oct 20, 2018 12:53 PM VA-TOBACCO FORMER USER [facility] Oct 20, 2018 12:53 PM VA-TOBACCO QUIT 15 YRS OR MORE [facility] Jul 03, 2017 10:33 AM QUIT TOBACCO USE > 7 YEARS AGO quit 25yrs ago [facility] February 13, 2016 08:46 AM LIFETIME NON-TOBACCO USER [facility] Advance Directives: All historical and current Section Date Range: From patient's date of to the date document was created. This section includes ALL of a patient's completed or amended [place] Advance and Rescinded Directives. The entries below indicate that a directive exists for the patient, but an actual copy is not included with this document. The data comes from all [facility]. Date Advance Directives Provider Source Apr 04, 2024 ADVANCE DIRECTIVE CHAPINCITO DEE [facility] Radiology Reports: +/- 30 days [...] the Encounter. The data comes from all [place] treatment facilities. Date/Time Radiology Report Provider Source Sep 01, 2024 10:[address] W/O CONT: RITCHIEJAKE [id number] -[id number] M Exm Date: SEP 01, 2024@10:54 Req Phys: LUBA,NOLAN Pat Loc: CWM/SO/PACT 9 (Req'g Loc) Img Loc: NHM/CT Service: [facility] [place] [id number] (Case [id number] COMPLETE) CT THORAX W/O CONT (CT Detailed) CPT:79819 Reason for Study: LDCT Clinical History: lung CA screen/surveillance as per protocol Report Status: Verified Date Reported: SEP 01, 2024 Date Verified: SEP 01, 2024 Inspecting And Testing Lead Hand E-Sig:/ES/STARR MCDANIEL JR Report: Study: Noncontrast CT [...] Primary Interpreting Staff: STARR MCDANIEL JR, Radiologist (Inspecting And Testing Lead Hand) /STARR HERNANDEZ JR [facility] [place] [facility] Aug 16, 2024 02:[address] ABDOMEN AND PELVIS WITH CONTRAST: JAKE DUGAN [id number] -1945 M Exm Date: AUG 16, 2024@14:04 Req Phys: NOLAN VERDUZCO Pat Loc: CWM/SO/PACT 9 (Req'g Loc) Img Loc: NHM/CT Service: Unknown [place] [address] (Case [id number] COMPLETE) CT ABDOMEN AND PELVIS WITH CONTRA(CT Detailed) CPT:02610 Contrast Media : Non-ionic Iodinated Reason for Study: prostate CA Clinical History: Report Status: Verified Date Reported: AUG 16, 2024 Date Verified: AUG 16, 2024 Inspecting And Testing Lead Hand E-Sig: Report: CT ABDOMEN AND PELVIS WITH CONTRAST HISTORY: prostate CA COMPARISON: 03/14/2024 TECHNIQUE: CT of the abdomen and pelvis with multiplanar reformats was performed at the local AL facility. A contrast-enhanced series was obtained in the portal venous phase. 350 images were received by the [place] National Teleradiology Program (NTP) for interpretation. RADIATION [...] tumor infiltration. READING PHYSICIAN: Kwabena Perez M.D. -[id number] 08/16/2024 20:18 [facility] National Teleradiology Program [phone] (For Medical Practitioner Use Only) Attention Patients / Veterans: If you have questions or concerns about these test results, please contact your ordering provider or primary care team. Primary Diagnostic Code: POSSIBLE MALIGNANCY Primary Interpreting Staff: RADIOLOGY,OUTSIDE SERVICE, Staff Physician / RADIOLOGY,OUTSIDE SERVICE [facility] Pathology Reports: +/- 30 days of [...] the Encounter. The data comes from all [place] treatment facilities. Date/Time Pathology Report Provider Source Aug 24, 2024 11:28 AM LR MICROBIOLOGY RE PORT: Reporting Lab: [facility] [CLIA# [id number]] [address] [place] [address] Accession [UID]: [id number] [[id number]] Received: Aug 24, 2024@11:28 Collection sample: URINE CLEAN CATCH Collection date: Aug 24, 2024 11:28 Site/Specimen: URINE Provider: NOLAN VERDUZCO Comment on specimen: POSITIVE CULTURE RESULTS MAY NOT REPRESENT CLINICAL INFECTION. CONSIDER NEED FOR ANTIBIOTICS IN THE CONTEXT OF UTI SYMPTOMS. Test(s) ordered: URINE CULTURE(MWROX).......... completed: Aug 29, 2024 08:33 * BACTERIOLOGY FINAL REPORT => Aug 29, 2024 08:32 TECH CODE: [id number] CULTURE RESULTS: 1. KLEBSIELLA OXYTOCA/RAOULTELLA ORNITHINOLYTICA - [...] Performed By: [facility] [CLIA# [id number]] [address] [place] [address] Pseudomonas Aeruginosa Performed By: [facility] [CLIA# [id number]] [address] [place] [address] Bact Report Remark #1 Performed By: [facility] [CLIA# [id number]] [address] [place] [address] Bact Report Remark #2 Performed By: [facility] [CLIA# [id number]] [address] [place] [address] ENRIQUETA FLORES [facility] Encounter Notes: All associated encounter notes This section contains the clinical notes associated to the Encounter. Date/Time Encounter Note(s) Provider Source Aug 25, 2024 04:12 PM ADDENDUM: LOCAL TITLE: Addendum STANDARD TITLE: ADDENDUM DATE OF NOTE: AUG 25, 2024@16:12:20 ENTRY DATE: AUG 25, 2024@16:12:20 AUTHOR: ROWENA ROY COSIGNER: URGENCY: STATUS: COMPLETED The patient would like to switch to PACT 1. Please change [place]. AMSA: Please contact the patient and establish an appointment within the next 90 to 120 days. Thank you /es/ ROWENA ROY NP NURSE PRACTITIONER Signed: 08/25/2024 16:13 Receipt Acknowledged By: 08/30/2024 11:09 /mariana/ ERIC BARTON ADVANCE PROCESSOR HELPER 08/31/2024 12:25 /es/ KYLE TAFOYA COOK HELPER PASTRY 08/25/2024 16:19 /es/ ISABEL FREDERICK LPN SUPERVISOR RESPIRATORY ======== --- Original Document --- 08/24/24 NURSE PRACTITIONER OUTPATIENT NOTE: PRIMARY CARE VISIT JAKE DUGAN, is a 79 yo DECLINED TO ANSWER MALE [place] who presents at the [facility] Clinic. TYPE OF VISIT: Face to face 79-year-old [place] with ZECHARIAH, epilepsy, HTN, [place] and untreated prostate cancer diagnosed in 2021 presented to the outpatient clinic in follow-up for CT abdomen/pelvis. CT abd/pelvis from 08/16/2024 with findings suspicious for widespread pulmonary metastasis and new adenopathy in the abdomen and pelvis compatible with metastatic disease and new dilatation of the urethra which could be postprocedural, represent thrombus, or represent tumor infiltration. The [place] stated he was not sure he actually [...] been seen several times in follow-up by [facility] urology who has recommended treatment for the bladder outlet obstruction as well as prostate cancer which he has refused up to now. Recent labs were also reviewed. All medications were reconciled during this visit. HEALTHCARE PROVIDERS: PCP: [place] Urology: Dr. 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 10/21/2018 NOLAN VERDUZCO Diverticular disease R69. 10/21/2018 NOLAN VERDUZCO Osteoarthritis (SNOMED CT 413233120 05/13/2018 JACKY CRUMP Generalized anxiety disorder F41.1 [...] detailed explanation. Of note, there was an SUPERVISOR RESPIRATORY (Jose) present throughout the visit to assist [...] 08/24/2024 14:28 08/30/2024 ADDENDUM STATUS: COMPLETED THIS OUTREACH REP SPOKE w/ AND IS BOOKED FOR 12/13/24 LETTER SENT /mariana/ ERIC BARTON ADVANCE PROCESSOR HELPER Signed: 08/30/2024 11:08 ROWENA ROY [facility] Aug 24, 2024 02:03 PM PRIMARY CARE NURSE PRACTITIONER OUTPATIENT NOTE: LOCAL TITLE: NURSE PRACTITIONER OUTPATIENT NOTE STANDARD TITLE: PRIMARY CARE NURSE PRACTITIONER OUTPATIENT NOTE DATE OF NOTE: AUG 24, 2024@14:03 ENTRY DATE: AUG 24, 2024@14:03:57 AUTHOR: ROWENA ROY EXP COSIGNER: URGENCY: STATUS: COMPLETED NURSE PRACTITIONER OUTPATIENT NOTE Has ADDENDA PRIMARY CARE VISIT JAKE DUGAN, is a 79 yo DECLINED TO ANSWER MALE who presents at the [place] Clinic. TYPE OF VISIT: Face to face [...] represent thrombus, or represent tumor infiltration. The [place] stated he was not sure he actually [...] been seen several times in follow-up by [facility] urology who has recommended treatment for the bladder outlet obstruction as well as prostate cancer which he has refused up to now. Recent labs were also reviewed. All medications were reconciled during this visit. HEALTHCARE PROVIDERS: PCP: [place] Urology: Dr. Cox, [facility] urology HISTORY: PERIOD OF SERVICE - [employer] 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 10/21/2018 LUBANOLAN Diverticular disease R69. 10/21/2018 NOLAN VERDUZCO Osteoarthritis (SNOMED CT [id number] 05/13/2018 NICOLASJACKY LINDO Generalized anxiety disorder F41.1 04/11/2016 ELICIA HARRIS [...] or unilateral weakness. EXAMINATION General: Well-appearing older [place] in no obvious distress. Mental Status: Alert [...] detailed explanation. Of note, there was an SUPERVISOR RESPIRATORY (Jose) present throughout the visit to assist [...] whether with a VA or non-VA provider. /viky ROY NP NURSE PRACTITIONER Signed: 08/24/2024 14:28 08/25/2024 ADDENDUM STATUS: COMPLETED The patient would like to switch to PACT 1. Please change [place]. AMSA: Please contact the patient and establish an appointment within the next 90 to 120 days. Thank you /viky ROY NP NURSE PRACTITIONER Signed: 08/25/2024 16:13 Receipt Acknowledged By: 08/30/2024 11:09 /viky BARTON ADVANCE PROCESSOR HELPER * AWAITING SIGNATURE * KYLE TAFOYA 08/25/2024 16:19 /viky FREDERICK LPN LPN 08/30/2024 ADDENDUM STATUS: COMPLETED THIS OUTREACH REP SPOKE w/ AND IS BOOKED FOR 12/13/24 LETTER SENT /viky BARTON ADVANCE PROCESSOR HELPER Signed: 08/30/2024 11:08 ROWENA ROY Aug 24, 2024 12:30 PM PREVENTIVE MEDICIN E NURSING NOTE: LOCAL TITLE: CLINICAL REMINDERS/NURSING STANDARD TITLE: PREVENTIVE MEDICINE NURSING NOTE DATE OF NOTE: AUG 24, 2024@12:30 ENTRY DATE: AUG 24, 2024@12:30:11 AUTHOR: ISABEL FREDERICK COSIGNER: URGENCY: STATUS: COMPLETED COVID-19 Immunization: Defer due to a PRECAUTION Reason: def /mariana/ ISABEL FREDERICK LPN LPN Signed: 08/24/2024 12:30 ISABEL FREDERICK
--- OUTSIDE RECORDS SUMMARY | 2024-09-07 15:34 | XMS_ITS | Encounter Summary ---
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 (R) MEDICARE ADVANTAGE [place] INDIV IDUAL - [place] Sep 21, 2023 [id number] [phone] GENET [facility]UGAN S [facility]) MEDICARE ADVANTAGE [facility] ([facility]) Sep 21, 2023 [id number] [phone] MARVIN DUGANI S PATIENT HUSKY MEDICAID HUSKY PLAN May 22, 2022 MEDICAI D [id number] GENET DUGAN S PATIENT MEDICARE ([facility]) MEDICARE (M) PART B May 22, 2022 PART B [id number] [phone] GENET DUGAN S PATIENT MEDICARE (WNR) MEDICARE (M) PART A Feb 19, 2009 PART A [id number] MARVIN DUGANI S PATIENT MEDICARE PART D (WNR) MEDICARE (M) PART D Jul 22, 2022 PART D [id number] GENET DUGAN S PATIENT [facility] (WNR) MEDICARE ADVANTAGE [facility] (WNR) Sep 21, 2022 [id number] [phone] GENET DUGAN S PATIENT [facility] MCR (WNR) MEDICARE ADVANTAGE [facility] (WNR) Sep 21, 2022 [id number] GENET DUGAN S PATIENT Selected Encounter This section includes the information on record at [place] for the Encounter. 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 Date/Time Primary/Secondary Diagnosis Diagnosis Name Provider Source Aug 17, 2024 08:36 AM PRIMARY Carcinoma in situ of prostate [facility] Plan of Treatment: Future Appointments (+ 6 [...] - MEDICINE [place] [facility] Aug 24, 2024 11:00 AM AMBULATORY - MEDICINE [facility] Sep 01, 2024 11:00 AM AMBULATORY - NONE [place] [facility] [facility] Sep 07, 2024 03:00 PM AMBULATORY - MEDICINE [place] [facility] Dec 13, 2024 01:30 PM AMBULATORY - MEDICINE [place] Jan 02, 2025 10:00 AM AMBULATORY - [facility]ICINE [place] [facility] Active, Pending, and Scheduled Orders [...] AM Consult Order COMMUNITY CARE-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 Ordering Provider: ROWENA ROY Report Released Date/Time: Aug 24, 2024 11:07 AM Reporting Lab: [facility] [address] [address] Performing Lab: [facility] [address] [address] WBC 8.84 10*3/uL 4.50-11.00 RBC 4.72 10*6/uL [...] 10*3/uL 0.00-0.00 Aug 24, 2024 11:28 AM [facility] MICROSCOPIC AUTOMATED, URINE Specimen Type: URINE Comment: If Glucose = >500 and Ketones are positive, please alert the Physician. Ordering Provider: MONICA VERDUZCO Report Released Date/Time: Aug 09, 2024 09:43 AM Reporting Lab: [address] [address] Performing Lab: [facility] [address] [address] UA WBC 0-5 /[HPF] 0-5 UA BACTERIA 1+ /[HPF] NoneObs UA TRIPLE PHOSPHATE CRYSTALS MODERATE /[HPF] Not Established UA RBC 6-10 /[HPF] H 0-3 Aug 24, 2024 11:28 AM [facility] URINALYSIS Specimen Type: URINE Comment: If Glucose = >500 and Ketones are positive, please alert the Physician. Ordering Provider: MONICA VERDUZCO Report Released Date/Time: Aug 09, 2024 09:43 AM Reporting Lab: [facility] [address] [address] Performing Lab: [address] [address] UA COLOR Light-Brown Yellow UA APPEARANCE Turbid Clear UA GLUCOSE Normal mg/dL Negative UA KETONES NEGATIVE mg/dL Negative UA BLOOD LARGE mg/dL Negative UA PROTEIN 100 mg/dL Negative UA NITRITE NEGATIVE mg/dL Negative UA BILIRUBIN NEGATIVE mg/dL Negative UA SPECIFIC GRAVITY 1.007 L 1.016-1.022 UA pH 8.5 5.0-9.0 UA UROBILINOGEN Normal mg/dL <2.0 UA LEUKOCYTE LARGE Negative Aug 08, 2024 10:59 AM [facility] VITAMIN D 25-OH (Therapy monitor) Specimen [...] For additional information, please refer to http://educatio n.[employer]/faq/FAQ 199 (This link is being provided for informational/ educational purposes only.) This test was developed and its analytical performance characteristics have been determined by [employer] [place]. It has not been cleared or approved by the U.S. Food and Drug Administration. This assay has been validated pursuant to the CLIA regulations and is used for clinical purposes. This test was developed and its analytical performance characteristics have been determined by [employer] [place]. It has not been cleared or approved by the U.S. Food and Drug Administration. This assay has been validated pursuant to the CLIA regulations and is used for clinical purposes. Test Performed by [facility], [address] [place] [address] Dov Bahena M.D., Ph.D., Director of Laboratories , CLIA [id number] TEST PERFORMED AT: , Ordering Provider: MONICA VERDUZCO Report Released Date/Time: Aug 08, 2024 10:54 AM Reporting Lab: [facility] [address] [address] Performing Lab: [facility] [address] [address] VITAMIN D, 25-OH, TOTAL 51 ng/mL 30-100 VITAMIN D, 25-OH, D3 51 ng/mL VITAMIN D, 25-OH, D2 <4 ng/mL Aug 08, 2024 10:59 AM [facility] FOLATE (WROX) Specimen Type: SERUM No comment entered. Ordering Provider: MONICA VERDUZCO Report Released Date/Time: Aug 08, 2024 10:54 AM Reporting Lab: [facility] [place] [facility] [address] [address] Performing Lab: [facility] [place] [facility] [address] [facility] [address] FOLATE (WROX) 4.07 ng/mL L >5.2 Aug 08, 2024 10:59 AM [facility] [facility] MICROALBUMIN CREATININE RATIO PANEL Specimen Type: URINE No comment entered. Ordering Provider: MONICA VERDUZCO Report Released Date/Time: Aug 08, 2024 10:54 AM Reporting Lab: [facility] [facility] [address] [address] Performing Lab: [facility] [address] [address] MICROALBUMIN/ CREATININE RATIO 354.2 mg/g H 0-29.9 MICROALBUMIN, QUANTITATIVE 103.3 mg/dL RR UNAVAIL CREATININE URINE 291.68 mg/dL Aug 08, 2024 10:59 AM [facility] VITAMIN B12 Specimen Type: SERUM No comment entered. Ordering Provider: MONICA VERDUZCO Report Released Date/Time: Aug 08, 2024 10:54 AM Reporting Lab: [facility] [place] [facility] [address] [address] Performing Lab: [facility] [address] [address] VITAMIN B12 1849 pg/mL H 200-900 Aug 08, 2024 10:59 AM [facility] LIPID PANEL FASTING Specimen Type: SERUM No comment entered. Ordering Provider: MONICA VERDUZCO Report Released Date/Time: Aug 08, 2024 10:54 AM Reporting Lab: [facility] [place] [address] [place] [address] Performing Lab: [facility] [address] [address] CHOLESTEROL 178 mg/dL TRIGLYCERIDE 97 mg/dL 0-150 LDL calculated 97 mg/dL 0-129 CHOL/HDL 2.9 HDL CHOLESTEROL 62 mg/dL H 40-60 Aug 08, 2024 10:59 AM [facility] HEMOGLOBIN A1C PANEL Specimen Type: BLOOD [...] 08, 2024 10:54 AM Reporting Lab: [address] [address] Performing Lab: [address] [address] HEMOGLOBIN A1C 5.2 4.0-5.6 Aug 08, 2024 10:59 AM [facility] BASIC METABOLIC PANEL (fasting) Specimen Type: SERUM No comment entered. Ordering Provider: MONICA VERDUZCO Report Released Date/Time: Aug 08, 2024 10:54 AM Reporting Lab: [address] [address] Performing Lab: [address] [address] UREA NITROGEN 22 mg/dL 7-25 GLUCOSE 91 mg/dL 65-100 SODIUM 138 mmol/L 135-145 POTASSIUM 4.8 mmol/L 3.5-5.0 CHLORIDE 105 mmol/L 100-110 CO2 25 meq/L 20-30 CREATININE, Serum 0.99 mg/dL 0.50-1.40 eGFR(CKD-EPI 2020) 77 mL/min >60 Aug 08, 2024 10:59 AM [facility] LIVER FUNCTION Specimen Type: SERUM No comment entered. Ordering Provider: MONICA VERDUZCO Report Released Date/Time: Aug 08, 2024 10:54 AM Reporting Lab: [facility] [facility] [address] [address] Performing Lab: [facility] [address] [address] PROTEIN,TOTAL 6.7 g/dL 6.0-8.3 ALBUMIN 3.4 g/dL L 3.5-5.0 ALKALINE PHOSPHATASE 151 U/L H 40-150 AST 17 U/L 5-34 ALT 8 U/L BILIRUBIN, TOTAL 0.5 mg/dL 0.2-1.2 Aug 08, 2024 10:59 AM [facility] TSH Specimen Type: SERUM No comment entered. Ordering Provider: MONICA VERDUZCO Report Released Date/Time: Aug 08, 2024 10:54 AM Reporting Lab: [facility] [address] [address] Performing Lab: [facility] [address] [address] TSH 1.93 u[IU]/mL 0.35-5.00 Aug 08, 2024 10:59 AM [facility] PSA Specimen Type: SERUM No comment entered. Ordering Provider: MONICA VERDUZCO Report Released Date/Time: Aug 08, 2024 10:54 AM Reporting Lab: [facility] [facility] [address] [address] Performing Lab: [facility] [address] [address] PSA 30.59 ng/mL H 0.00-4.00 Aug 08, 2024 10:59 AM [facility] CBC AND DIFF (AUTO) Specimen Type: BLOOD No comment entered. Ordering Provider: MONICA VERDUZCO Report Released Date/Time: Aug 08, 2024 10:54 AM Reporting Lab: [facility] [address] Performing Lab: [facility] W[facility]N [place] [facility] [address] [address] WBC 7.81 10*3/uL 4.50-11.00 RBC 4.88 10*6/uL [...] and tobacco- related health factors from the [place] facility where the Encounter took place. Current Smoking Status This section includes the most current smoking, or tobacco-related health factor, from the [place] facility where the Encounter took place. Date/Time Current Smoking Status Comment Facil ity May 31, 2024 10:00 AM [place]-TOBACCO NEVER USED [facility] Tobacco Use History This section includes a history of the smoking, or tobacco-related health factors, that were collected on or before the date of the Encounter. The data comes from the [place] facility where the Encounter took place. Date/Time Smoking Status/Tobacco Use Comment F acility Jun 23, 2023 09:00 AM VA-TOBACCO FORMER USER [facility] Jun 23, 2023 09:00 AM VA-TOBACCO QUIT 15 YRS OR MORE [facility] May 01, 2022 01:30 PM VA-TOBACCO FORMER USER [facility] May 01, 2022 01:30 PM VA-TOBACCO QUIT 15 YRS OR MORE [facility] Apr 15, 2021 03:00 PM VA-TOBACCO FORMER USER [facility] Apr 15, 2021 03:00 PM VA-TOBACCO QUIT 15 YRS OR MORE [facility] Oct 20, 2018 12:53 PM VA-TOBACCO FORMER USER [facility] Oct 20, 2018 12:53 PM VA-TOBACCO QUIT 15 YRS OR MORE [facility] Jul 03, 2017 10:33 AM QUIT TOBACCO USE > 7 YEARS AGO quit 25yrs ago [facility] February 13, 2016 08:46 AM LIFETIME NON-TOBACCO USER [facility] Advance Directives: All historical and current Section Date Range: From patient's date of to the date document was created. This section includes ALL of a patient's completed or amended [place] Advance and Rescinded Directives. The entries below indicate that a directive exists for the patient, but an actual copy is not included with this document. The data comes from all [facility]. Date Advance Directives Provider Source Apr 04, 2024 ADVANCE DIRECTIVE [facility] Radiology Reports: +/- 30 days of [...] AM CHEST CT W/O CONT: JAKE DUGAN [id number] -1945 M Exm Date: SEP 01, 2024@10:54 Req Phys: LUBA,NOLAN Pat Loc: CWM/SO/PACT 9 (Req'g Loc) Img Loc: NHM/CT Service: Unknown [place] [facility] [place] [address] (Case [id number] COMPLETE) CT THORAX W/O CONT (CT Detailed) CPT:77360 Reason for Study: LDCT Clinical History: lung CA screen/surveillance as per protocol Report Status: Verified Date Reported: SEP 01, 2024 Date Verified: SEP 01, 2024 Staffing Recruiter E-Sig:/ES/STARR MCDANIEL JR Report: Study: Noncontrast CT [...] Fleischner Society 2017. Shashank Chao, Rowena Delacruz, Mkuund Luevano, et al. Mediastinum/hilum/lymph nodes: Normal. No [...] Primary Interpreting Staff: STARR MCDANIEL JR, Radiologist (Staffing Recruiter) /STARR HERNANDEZ JR NM CNT [facility] Aug 16, 2024 02:[address] ABDOMEN AND PELVIS WITH CONTRAST: JAKE DUGAN [id number] -1945 M [facility] Date: AUG 16, 2024@14:04 Req Phys: LUBA,NOLAN Pat Loc: CWM/SO/PACT 9 (Req'g Loc) Img Loc: NHM/CT Service: Unknown NM CNTRL [facility] [place] [facility] [place] [address] (Case [id number] COMPLETE) CT ABDOMEN AND PELVIS WITH CONTRA(CT Detailed) CPT:60818 Contrast Media : Non-ionic Iodinated Reason for Study: prostate CA Clinical History: Report Status: Verified Date Reported: AUG 16, 2024 Date Verified: AUG 16, 2024 Staffing Recruiter E-Sig: Report: CT ABDOMEN AND PELVIS WITH [...] tumor infiltration. READING PHYSICIAN: Kwabena Perez M.D. -[id number] 08/16/2024 20:18 [facility] Crossbarradiology Program [phone] (For Medical Practitioner Use Only) Attention Patients / Veterans: If you have questions or concerns about these test results, please contact your ordering provider or primary care team. Primary Diagnostic Code: POSSIBLE MALIGNANCY Primary Interpreting Staff: RADIOLOGY,OUTSIDE SERVICE, Staff Physician / RADIOLOGY,OUTSIDE SERVICE [facility] Pathology Reports: +/- 30 days of [...] AM LR MICROBIOLOGY RE PORT: Reporting Lab: [facility] [CLIA# [id number]] [address] [place] [phone] Accession [UID]: [id number] [[id number]] Received: Aug 24, 2024@11:28 Collection sample: URINE CLEAN CATCH Collection date: Aug 24, 2024 11:28 Site/Specimen: URINE Provider: NOLAN VERDUZCO Comment on specimen: POSITIVE CULTURE RESULTS MAY NOT REPRESENT CLINICAL INFECTION. CONSIDER NEED FOR ANTIBIOTICS IN THE CONTEXT OF UTI SYMPTOMS. Test(s) ordered: URINE CULTURE(MWROX).......... completed: Aug 29, 2024 08:33 * BACTERIOLOGY FINAL REPORT => Aug 29, 2024 08:32 TECH CODE: [id number] CULTURE RESULTS: 1. KLEBSIELLA OXYTOCA/RAOULTELLA ORNITHINOLYTICA - [...] Performed By: [facility] [CLIA# [id number]] [address] [place] [phone] Pseudomonas Aeruginosa Performed By: [facility] [CLIA# [id number]] [address] [place] [address] Bact Report Remark #1 Performed By: [facility] [CLIA# [id number]] [address] [place] [phone] Bact Report Remark #2 Performed By: [facility] [CLIA# [id number]] [address] [place] [phone] ENRIQUETA FLORES Encounter Notes: All associated encounter notes This section contains the clinical notes associated to the Encounter. Date/Time Encounter Note(s) Provider Source Aug 17, 2024 08:36 AM ADMINISTRATIVE NOT E: LOCAL TITLE: ADMINISTRATIVE NOTE STANDARD TITLE: ADMINISTRATIVE NOTE DATE OF NOTE: AUG 17, 2024@08:36 ENTRY DATE: AUG 17, 2024@:36:39 AUTHOR: NOLAN VERDUZCO EXP COSIGNER: URGENCY: STATUS: COMPLETED Include data from 08/18/2023 to 08/17/2024 08/17/2024 08:36 CONFIDENTIAL IMAGING REPORTS SUMMARY pg. 1 JAKE DUGAN [id number] : 1945 II - Imaging Impression (max 1 occurrence) Date Procedure CPT Status Case # 08/16/2024 CT ABDOMEN AND PELVIS WITH [id number] Verified 109 CONTRAST 1. Findings suspicious for [...] tumor infiltration. READING PHYSICIAN: Kwabena Perez M.D. -[phone] 08/16/2024 20:18 [facility] National Teleradiology Program [phone] (For Medical Practitioner Use Only) Attention Patients / Veterans: If you have questions or concerns about these test results, please contact your ordering provider or primary care team. Discussed with staff. I'll break the unfortunate news after Thanksgiving. /mariana/ NOLAN VERDUZCO MD PHYSICIAN Signed: 08/17/2024 08:38 NOLAN VERDUZCO [facility]
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
--- OUTSIDE RECORDS SUMMARY | 2024-09-07 15:35 | XMS_ITS ---
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 Organization [facility] [place] Address [address] [place] [id number] Care Team Providers Care Pump Service Supervisor Name Role Phone ROWENA ROY Primary [...] INDIV IDUAL - MASS Sep 21, 2023 [id number] [phone] GENET DUGAN S [facility]IC[facility] ADVANTAGE [facility] ([facility] Sep 21, 2023 [id number] [phone] DUGAN,GENET S PATIENT [place] MEDICAID [place]KY PLAN May 22, 2022 MEDICAI D [id number] MARVIN DUGANI S PATIENT MEDICARE (WN) MEDICARE (M) PART B May 22, 2022 PART B [id number] DUGAN,GENET S PATIENT MEDICARE (WNR) MEDICARE (M) PART A Feb 19, 2009 PART A [id number] [phone] DUGAN,GENET S PATIENT MEDICARE PART D (WNR) MEDICARE (M) PART D Jul 22, 2022 PART D [id number] [phone] GENET DUGAN PATIENT [facility] (WNR) MEDICARE ADVANTAGE [facility] (WNR) Sep 21, 2022 [id number] GENET DUGAN PATIENT [facility] MCR (WNR) MEDICARE ADVANTAGE MCR (WNR) Sep 21, 2022 [id number] [phone] GENET DUGAN PATIENT Selected Encounter This section [...] 09, 2024 09:00 AM AMBULATORY - [place]ICINE [place] [facility] Aug 16, 2024 12:00 PM AMBULATORY - NONE [place] [facility] Aug 22, 2024 11:20 AM AMBULATORY - [place]IC[place] [facility] Aug 24, 2024 11:00 AM AMBULATORY - MEDICINE [facility] Sep 01, 2024 11:00 AM AMBULATORY - NONE [place] [facility] Sep 07, 2024 03:00 PM AMBULATORY - [place]ICINE [place] [facility] Dec 13, 2024 01:30 PM AMBULATORY - MEDICINE [facility] Jan 02, 2025 10:00 AM AMBULATORY - MEDICINE [facility] [place] [facility] Active, Pending, and Scheduled Orders This section includes a listing of several types of active, pending, and scheduled orders, including clinic medications orders, diagnostic test orders, procedure orders and consult orders; where the start date of the order is 45 days before the date of the Encounter or 45 days after the date of theEncounter. The data comes from all [place] treatment facilities. Test Date/Time Test Type Test Details Facility Name Aug 09, 2024 09:40 AM Consult Order COMMUNITY CARE-UROLOGY Cons Awning [facility] Lab Results: +/- 30 days of the encounter This section includes the Chemistry and Hematology Lab Results on record with [place] for the patient. Radiology Reports and Pathology Reports are provided separately, in subsequent sections. Lab Results This section contains the Chemistry/Hematology Results that were resulted 30 days before or 30 daysafter the date of the Encounter. Date/Time Source Result Type Result - Unit Interpretation Reference Range Comment Aug 24, 2024 11:28 AM [place] CBC AND DIFF (AUTO) Specimen Type: BLOOD No comment entered. Ordering Provider: ROWENA ROY Report Released Date/Time: Aug 24, 2024 11:07 AM Reporting Lab: [address] [address] Performing Lab: [address] [address] WBC 8.84 10*3/uL 4.50-11.00 RBC 4.72 10*6/uL [...] 10*3/uL 0.00-0.00 Aug 24, 2024 11:28 AM [facility] MICROSCOPIC AUTOMATED, URINE Specimen Type: URINE Comment: If Glucose = >500 and Ketones are positive, please alert the Physician. Ordering Provider: MONICA VERDUZCO Report Released Date/Time: Aug 09, 2024 09:43 AM Reporting Lab: [address] [address] Performing Lab: [address] [address] UA WBC 0-5 /[HPF] 0-5 UA BACTERIA 1+ /[HPF] NoneObs UA TRIPLE PHOSPHATE CRYSTALS MODERATE /[HPF] Not Established UA RBC 6-10 /[HPF] H 0-3 Aug 24, 2024 11:28 AM [facility] URINALYSIS Specimen Type: URINE Comment: If Glucose = >500 and Ketones are positive, please alert the Physician. Ordering Provider: MONICA VERDUZCO Report Released Date/Time: Aug 09, 2024 09:43 AM Reporting Lab: [address] [address] Performing Lab: [address] [address] UA COLOR Light-Brown Yellow UA APPEARANCE Turbid Clear UA GLUCOSE Normal mg/dL Negative UA KETONES NEGATIVE mg/dL Negative UA BLOOD LARGE mg/dL Negative UA PROTEIN 100 mg/dL Negative UA NITRITE NEGATIVE mg/dL Negative UA BILIRUBIN NEGATIVE mg/dL Negative UA SPECIFIC GRAVITY 1.007 L 1.016-1.022 UA pH 8.5 5.0-9.0 UA UROBILINOGEN Normal mg/dL <2.0 UA LEUKOCYTE LARGE Negative Aug 08, 2024 10:59 AM [facility] VITAMIN D 25-OH (Therapy monitor) Specimen [...] For additional information, please refer to [email or web address] [email or web address].[employer]al[employer].com/faq/FAQ 199 (This link is being provided for informational/ educational purposes only.) This test was developed and its analytical performance characteristics have been determined by [employer] [place], [place]. It has not been cleared or approved by the U.S. Food and Drug Administration. This assay has been validated pursuant to the CLIA regulations and is used for clinical purposes. This test was developed and its analytical performance characteristics have been determined by [employer] [place], [place]. It has not been cleared or approved by the U.S. Food and Drug Administration. This assay has been validated pursuant to the CLIA regulations and is used for clinical purposes. Test Performed by [facility], [facility] [employer] [facility], [address] [place] [address] Dov Bahena M.D., Ph.D., Director of Laboratories , CLIA [id number] TEST PERFORMED AT: , Ordering Provider: MONICA VERDUZCO Report Released Date/Time: Aug 08, 2024 10:54 AM Reporting Lab: [facility] [address] [facility] [address] Performing Lab: [facility] [address] [address] VITAMIN D, 25-OH, TOTAL 51 ng/mL 30-100 VITAMIN D, 25-OH, D3 51 ng/mL VITAMIN D, 25-OH, D2 <4 ng/mL Aug 08, 2024 10:59 AM [facility] HCS FOLATE (WROX) Specimen Type: SERUM No comment entered. Ordering Provider: MONICA VERDUZCO Report Released Date/Time: Aug 08, 2024 10:54 AM Reporting Lab: [place] [facility] [address] [facility] [address] Performing Lab: [facility] [place] [facility] [address] [facility] [address] FOLATE (WROX) 4.07 ng/mL L >5.2 Aug 08, 2024 10:59 AM [facility] TRN [facility] VITAMIN B12 Specimen Type: SERUM No comment entered. Ordering Provider: MONICA VERDUZCO Report Released Date/Time: Aug 08, 2024 10:54 AM Reporting Lab: [facility] [address] [facility] [address] Performing Lab: [facility]ITALRBAYPOINTE HOSPITALN [facility]US[facility] [address] [address] VITAMIN B12 1849 pg/mL H 200-900 Aug 08, 2024 10:59 AM [facility] MICROALBUMIN CREATININE RATIO PANEL Specimen Type: URINE No comment entered. Ordering Provider: MONICA VERDUZCO Report Released Date/Time: Aug 08, 2024 10:54 AM Reporting Lab: [facility] [place] [place] [facility] [address] [facility] [address] Performing Lab: [facility] TRN [facility] [address] [facility] [address] MICROALBUMIN/ CREATININE RATIO 354.2 mg/g H 0-29.9 MICROALBUMIN, QUANTITATIVE 103.3 mg/dL RR UNAVAIL CREATININE URINE 291.68 mg/dL Aug 08, 2024 10:59 AM [facility] BASIC METABOLIC PANEL (fasting) Specimen Type: SERUM No comment entered. Ordering Provider: MONICA VERDUZCO Report Released Date/Time: Aug 08, 2024 10:54 AM Reporting Lab: [place] [facility] [address] [facility] [address] Performing Lab: [facility] TRN [facility] [address] [address] UREA NITROGEN 22 mg/dL 7-25 GLUCOSE 91 mg/dL 65-100 SODIUM 138 mmol/L 135-145 POTASSIUM 4.8 mmol/L 3.5-5.0 CHLORIDE 105 mmol/L 100-110 CO2 25 meq/L 20-30 CREATININE, Serum 0.99 mg/dL 0.50-1.40 eGFR(CKD-EPI 2020) 77 mL/min >60 Aug 08, 2024 10:59 AM [facility] LIPID PANEL FASTING Specimen Type: SERUM No comment entered. Ordering Provider: MONICA VERDUZCO Report Released Date/Time: Aug 08, 2024 10:54 AM Reporting Lab: [facility] [address] [facility] [address] Performing Lab: [facility] [address] [facility] [address] CHOLESTEROL 178 mg/dL TRIGLYCERIDE 97 mg/dL 0-150 LDL calculated 97 mg/dL 0-129 CHOL/HDL 2.9 HDL CHOLESTEROL 62 mg/dL H 40-60 Aug 08, 2024 10:59 AM [facility] LIVER FUNCTION Specimen Type: SERUM No comment entered. Ordering Provider: MONICA VERDUZCO Report Released Date/Time: Aug 08, 2024 10:54 AM Reporting Lab: [facility] [address] [facility] [address] Performing Lab: [facility] [address] [facility] [address] PROTEIN,TOTAL 6.7 g/dL 6.0-8.3 ALBUMIN 3.4 g/dL L 3.5-5.0 ALKALINE PHOSPHATASE 151 U/L H 40-150 AST 17 U/L 5-34 ALT 8 U/L BILIRUBIN, TOTAL 0.5 mg/dL 0.2-1.2 Aug 08, 2024 10:59 AM [facility] HEMOGLOBIN A1C PANEL Specimen Type: BLOOD [...] 2024 10:54 AM Reporting Lab: [facility] TRN [facility] [address] [facility] [address] Performing Lab: [facility]PITALRBAYPOINTE HOSPITALN [facility]ETS [facility] [address] [facility] [address] HEMOGLOBIN A1C 5.2 4.0-5.6 Aug 08, 2024 10:59 AM [facility]ITALRL [facility]N [facility] TSH Specimen Type: SERUM No comment entered. Ordering Provider: MONICA VERDUZCO Report Released Date/Time: Aug 08, 2024 10:54 AM Reporting Lab: [facility] HOSPITALRTANNER MED[facility] C[facility] EAST ALABAMATRN [facility]ENTERUSETS [facility] [address] [facility] [address] Performing Lab: [facility] HOSPITALRBAYPOINTE HOSPITALN [facility]ENTERUSE[address] [address] TSH 1.93 u[IU]/mL 0.35-5.00 Aug 08, 2024 10:59 AM [facility]ITALRBAYPOINTE HOSPITALN [facility] PSA Specimen Type: SERUM No comment entered. Ordering Provider: MONICA VERDUZCO Report Released Date/Time: Aug 08, 2024 10:54 AM Reporting Lab: [facility]ITALRL [facility]N [facility]ENTERUSETS [facility] [address] [facility] [address] Performing Lab: [facility]PITALRBAYPOINTE HOSPITALN [facility]ENTERUSETS [address] [address] PSA 30.59 ng/mL H 0.00-4.00 Aug 08, 2024 10:59 AM [facility] CBC AND DIFF (AUTO) Specimen Type: BLOOD No comment entered. Ordering Provider: MONICA VERDUZCO Report Released Date/Time: Aug 08, 2024 10:54 AM Reporting Lab: [facility]ITALRBAYPOINTE HOSPITALN [facility]ENTERUSETS [facility] [address] [facility] [address] Performing Lab: [facility]PITALRBAYPOINTE HOSPITALN [facility]ENTERUSETS [address] [address] WBC 7.81 10*3/uL 4.50-11.00 RBC 4.88 10*6/uL [...] ALL of a patient's completed or amended [place] Advance and Rescinded Directives. The entries below [...] the Encounter. The data comes from all [place] treatment facilities. 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 A contrast-enhanced series was obtained in the portal venous phase. 350 images were received by the [place] National Teleradiology Program (NTP) for interpretation. RADIATION [...] tumor infiltration. READING PHYSICIAN: Kwabena Perez M.D. -[phone] 08/16/2024 20:18 [facility] National Teleradiology Program [phone] (For Medical Practitioner Use Only) Attention Patients / Veterans: If you have questions or concerns about these test results, please contact your ordering provider or primary care team. Primary Diagnostic Code: POSSIBLE MALIGNANCY Primary Interpreting Staff: RADIOLOGY,OUTSIDE SERVICE, Staff Physician / RADIOLOGY,OUTSIDE SERVICE [facility] Pathology Reports: +/- 30 days of [...] the Encounter. The data comes from all [place] treatment facilities. Date/Time Pathology Report Provider Source Aug 24, 2024 11:28 AM [place] MICROBIOLOGY RE PORT: Reporting Lab: [facility] [CLIA# [id number]] [address] [place] [id number] Accession [UID]: [id number] [[id number]] Received: Aug 24, 2024@11:28 Collection sample: URINE CLEAN CATCH Collection date: Aug 24, 2024 11:28 Site/Specimen: URINE Provider: NOLAN VERDUZCO Comment on specimen: POSITIVE CULTURE RESULTS MAY NOT REPRESENT CLINICAL INFECTION. CONSIDER NEED FOR ANTIBIOTICS IN THE CONTEXT OF UTI SYMPTOMS. Test(s) ordered: URINE CULTURE([facility]).......... completed: Aug 29, 2024 08:33 * BACTERIOLOGY FINAL REPORT => Aug 29, 2024 08:32 TECH CODE: [id number] CULTURE RESULTS: 1. KLEBSIELLA OXYTOCA/RAOULTELLA ORNITHINOLYTICA - [...] Performing Laboratory: Klebsiella Oxytoca/raoultella Ornithinolytica Performed By: [facility] [CLIA# [id number]] [address] [place] [address] Pseudomonas Aeruginosa Performed By: [facility] [CLIA# [id number]] [address] [place] [address] Bact Report Remark #[address]formed By: [facility] [CLIA# [id number]] [address] [place] [address] Bact Report Remark #2 Performed By: [facility] [CLIA# [id number]] [address] [place] [address] ENRIQUETA FLORES [place] Encounter Notes: All associated encounter notes This section contains the clinical notes associated to the Encounter. Date/Time Encounter Note(s) Provider Source Jul 29, 2024 12:00 AM NONVA CONSULT: LOCAL TITLE: COMMUNITY CARE-CONSULT RESULT NOTE STANDARD TITLE: NONVA CONSULT DATE OF NOTE: JUL 29, 2024 ENTRY DATE: AUG 30, 2024@12:14:10 AUTHOR: MG PINEDA EXP COSIGNER: URGENCY: STATUS: COMPLETED VistA Imaging - Scanned Document SCANNED DOCUMENT SIGNATURE NOT REQUIRED Electronically Filed: 08/30/2024 by: MG AYON CN[facility]
--- OUTSIDE RECORDS SUMMARY | 2024-09-07 15:35 | XMS_ITS | Encounter Summary ---
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 [place] Organization [facility] [place] Address [address] [place] [id number] Care Team Providers Care Hopper Feeder Name Role Phone ROWENA ROY Primary [facility] Insurance Providers: All historical and [...] Name Patient's Relationship to Policy Segal [facility] [place]) MEDICARE ADVANTAGE [place] IN[place] IDUAL - [place] Sep 21, 2023 [id number] [phone] GENET DUGAN S PATIENT [facility] ([facility]) MEDICARE [facility] ([facility]) Sep 21, 2023 [id number] [phone] GENET DUGAN S PATIENT [place] MEDICAID [place] PLAN May 22, 2022 MEDICAI D [id number] GENET DUGAN S PATIENT MEDICARE ([facility]) MEDICARE () PART B May 22, 2022 PART B [id number] GENET DUGAN S PATIENT MEDICARE (WNR) MEDICARE () PART A Feb 19, 2009 PART A [id number] [phone] GENET DUGAN S PATIENT MEDICARE PART D (WNR) MEDICARE (M) PART D Jul 22, 2022 PART D [id number] DUGAN,GENET S PATIENT [facility] (WNR) MEDICARE ADVANTAGE [facility] (WNR) Sep 21, 2022 [id number] [phone] DUGAN,GENET S PATIENT [facility] (WNR) MEDICARE ADVANTAGE [facility] (WNR) Sep 21, 2022 [id number] GENET DUGAN S PATIENT Selected Encounter This section includes the information on record at NE for the Encounter. Date/Time Encounter Type Encounter Description Reason Provider Source Aug 31, 2024 10:32 AM OFFICE O/P EST LOW 20 MIN PRIMARY CARE/MEDICINE ICD-10-CM C61 Malignant neoplasm of prostate HAYLEY VERDUZCO Encounter Template Text not used by NE Assessments - Encounter Diagnoses This section includes the primary and secondary diagnoses documented for the Encounter. Date/Time Primary/Secondary Diagnosis Diagnosis Name Provider Source Aug 31, 2024 10:48 AM PRIMARY Malignant neoplasm of prostate MONICA VERDUZCO Plan of Treatment: Future Appointments (+ 6 months) and Future Tests (+/- 45 days) The Plan of Treatment section includes future care activities for the patient from all [facility]. This section includes future appointments and future [...] 01, 2024 11:00 AM AMBULATORY - NONE [place] [facility] [place] [facility] Sep 07, 2024 03:00 PM AMBULATORY - MEDICINE NE [facility] [place] [facility] Dec 13, 2024 01:30 PM AMBULATORY - MEDICINE [facility] Jan 02, 2025 10:00 AM AMBULATORY - MEDICINE [facility] Active, Pending, and Scheduled Orders [...] 09:40 AM Consult Order COMMUNITY CARE-UROLOGY Cons Secy's Choice [facility] Lab Results: +/- 30 days of the encounter This section includes the Chemistry and Hematology Lab Results on record with NE for the patient. Radiology Reports and Pathology Reports are provided separately, in subsequent sections. Lab Results This section contains the Chemistry/Hematology Results that were resulted 30 days before or 30 daysafter the date of the Encounter. Date/Time Source Result Type Result - Unit Interpretation Reference Range Comment Aug 24, 2024 11:28 AM [facility] CBC AND DIFF (AUTO) Specimen Type: BLOOD No comment entered. Ordering Provider: ROWENA ROY Report Released Date/Time: Aug 24, 2024 11:07 AM Reporting Lab: [facility] [address] [facility] [address] Performing Lab: [address] [address] WBC 8.84 10*3/uL 4.50-11.00 RBC 4.72 10*6/uL [...] 10*3/uL 0.00-0.00 Aug 24, 2024 11:28 AM [facility] MICROSCOPIC AUTOMATED, URINE Specimen Type: URINE Comment: If Glucose = >500 and Ketones are positive, please alert the Physician. Ordering Provider: MONICA VERDUZCO Report Released Date/Time: Aug 09, 2024 09:43 AM Reporting Lab: [address] [address] Performing Lab: [address] [address] UA WBC 0-5 /[HPF] 0-5 UA BACTERIA 1+ /[HPF] NoneObs UA TRIPLE PHOSPHATE CRYSTALS MODERATE /[HPF] Not Established UA RBC 6-10 /[HPF] H 0-3 Aug 24, 2024 11:28 AM [facility] URINALYSIS Specimen Type: URINE Comment: If Glucose = >500 and Ketones are positive, please alert the Physician. Ordering Provider: MONICA VERDUZCO Report Released Date/Time: Aug 09, 2024 09:43 AM Reporting Lab: [address] [address] Performing Lab: [address] [address] UA COLOR Light-Brown Yellow UA APPEARANCE Turbid Clear UA GLUCOSE Normal mg/dL Negative UA KETONES NEGATIVE mg/dL Negative UA BLOOD LARGE mg/dL Negative UA PROTEIN 100 mg/dL Negative UA NITRITE NEGATIVE mg/dL Negative UA BILIRUBIN NEGATIVE mg/dL Negative UA SPECIFIC GRAVITY 1.007 L 1.016-1.022 UA pH 8.5 5.0-9.0 UA UROBILINOGEN Normal mg/dL <2.0 UA LEUKOCYTE LARGE Negative Aug 08, 2024 10:59 AM [facility] VITAMIN D 25-OH (Therapy monitor) [...] For additional information, please refer to http://educatio [email or web address].com/faq/FAQ 199 (This link is being provided for informational/ educational purposes only.) This test was developed and its analytical performance characteristics have been determined by [facility] [place] [place]. It has not been cleared or approved by the U.S. Food and Drug Administration. This assay has been validated pursuant to the CLIA regulations and is used for clinical purposes. This test was developed and its analytical performance characteristics have been determined by [facility] [place] [place]. It has not been cleared or approved by the U.S. Food and Drug Administration. This assay has been validated pursuant to the CLIA regulations and is used for clinical purposes. Test Performed by [facility], [facility], [address] [place] [address] Dov Bahena M.D., Ph.D., Director of Laboratories , CLIA [id number] TEST PERFORMED AT: , Ordering Provider: MONICA VERDUZCO Report Released Date/Time: Aug 08, 2024 10:54 AM Reporting Lab: [facility] [address] [address] Performing Lab: [facility] [address] [address] VITAMIN D, 25-OH, TOTAL 51 ng/mL 30-100 VITAMIN D, 25-OH, D3 51 ng/mL VITAMIN D, 25-OH, D2 <4 ng/mL Aug 08, 2024 10:59 AM [facility] FOLATE (WROX) Specimen Type: SERUM No comment entered. Ordering Provider: MONICA VERDUZCO Report Released Date/Time: Aug 08, 2024 10:54 AM Reporting Lab: [facility] [address] [facility] [facility] [address] Performing Lab: [place] [facility] [place] [facility] [address] [facility] [address] FOLATE (WROX) 4.07 ng/mL L >5.2 Aug 08, 2024 10:59 AM [facility] MICROALBUMIN CREATININE RATIO PANEL Specimen Type: URINE No comment entered. Ordering Provider: MONICA VERDUZCO Report Released Date/Time: Aug 08, 2024 10:54 AM Reporting Lab: [facility] [place] [place] [facility] [address] [facility] [address] Performing Lab: [facility] TRN [facility] [address] [facility] [address] MICROALBUMIN/ CREATININE RATIO 354.2 mg/g H 0-29.9 MICROALBUMIN, QUANTITATIVE 103.3 mg/dL RR UNAVAIL CREATININE URINE 291.68 mg/dL Aug 08, 2024 10:59 AM [facility] VITAMIN B12 Specimen Type: SERUM No comment entered. Ordering Provider: MONICA VERDUZCO Report Released Date/Time: Aug 08, 2024 10:54 AM Reporting Lab: [facility] [address] [facility] [address] Performing Lab: [facility] [address] [facility] [facility] [address] VITAMIN B12 1849 pg/mL H 200-900 Aug 08, 2024 10:59 AM [facility]N [facility] LIPID PANEL FASTING Specimen Type: SERUM No comment entered. Ordering Provider: MONICA VERDUZCO Report Released Date/Time: Aug 08, 2024 10:54 AM Reporting Lab: [facility]N [facility] [address] [facility] [address] Performing Lab: [facility] WE[facility]N [facility] [address] [address] CHOLESTEROL 178 mg/dL TRIGLYCERIDE 97 mg/dL 0-150 LDL calculated 97 mg/dL 0-129 CHOL/HDL 2.9 HDL CHOLESTEROL 62 mg/dL H 40-60 Aug 08, 2024 10:59 AM [facility] BASIC METABOLIC PANEL (fasting) Specimen Type: SERUM No comment entered. Ordering Provider: MONICA VERDUZCO Report Released Date/Time: Aug 08, 2024 10:54 AM Reporting Lab: [facility] [address] [facility] [address] Performing Lab: [facility] [address] [facility] [address] UREA NITROGEN 22 mg/dL 7-25 GLUCOSE 91 mg/dL 65-100 SODIUM 138 mmol/L 135-145 POTASSIUM 4.8 mmol/L 3.5-5.0 CHLORIDE 105 mmol/L 100-110 CO2 25 meq/L 20-30 CREATININE, Serum 0.99 mg/dL 0.50-1.40 eGFR(CKD-EPI 2020) 77 mL/min >60 Aug 08, 2024 10:59 AM [facility] HEMOGLOBIN A1C PANEL Specimen Type: [...] Aug 08, 2024 10:54 AM Reporting Lab: [facility] [address] [facility] [address] Performing Lab: [address] [address] HEMOGLOBIN A1C 5.2 4.0-5.6 Aug 08, 2024 10:59 AM [facility] LIVER FUNCTION Specimen Type: SERUM No comment entered. Ordering Provider: MONICA VERDUZCO Report Released Date/Time: Aug 08, 2024 10:54 AM Reporting Lab: [address] [address] Performing Lab: [facility] [address] [facility] [facility] [address] PROTEIN,TOTAL 6.7 g/dL 6.0-8.3 ALBUMIN 3.4 g/dL L 3.5-5.0 ALKALINE PHOSPHATASE 151 U/L H 40-150 AST 17 U/L 5-34 ALT 8 U/L BILIRUBIN, TOTAL 0.5 mg/dL 0.2-1.2 Aug 08, 2024 10:59 AM [facility] TSH Specimen Type: SERUM No comment entered. Ordering Provider: MONICA VERDUZCO Report Released Date/Time: Aug 08, 2024 10:54 AM Reporting Lab: [facility] [address] [facility] [address] Performing Lab: [address] [address] TSH 1.93 u[IU]/mL 0.35-5.00 Aug 08, 2024 10:59 AM [facility] PSA Specimen Type: SERUM No comment entered. Ordering Provider: MONICA VERDUZCO Report Released Date/Time: Aug 08, 2024 10:54 AM Reporting Lab: [facility] [address] [address] Performing Lab: [address] [address] PSA 30.59 ng/mL H 0.00-4.00 Aug 08, 2024 10:59 AM [facility] CBC AND DIFF (AUTO) Specimen Type: BLOOD No comment entered. Ordering Provider: MONICA VERDUZCO Report Released Date/Time: Aug 08, 2024 10:54 AM Reporting Lab: [address] [address] Performing Lab: [facility] [address] [address] WBC 7.81 10*3/uL 4.50-11.00 RBC 4.88 10*6/uL [...] and tobacco- related health factors from the NE facility where the Encounter took place. Current Smoking Status This section includes the most current smoking, or tobacco-related health factor, from the NE facility where the Encounter took place. Date/Time Current Smoking Status Comment [facility] May 31, 2024 10:00 AM NE-TOBACCO NEVER USED [facility] Tobacco Use History This section includes a history of the smoking, or tobacco-related health factors, that were collected on or before the date of the Encounter. The data comes from the NE facility where the Encounter took place. Date/Time Smoking Status/Tobacco Use Comment F acility Jun 23, 2023 09:00 AM NE-TOBACCO FORMER USER [facility] Jun 23, 2023 09:00 AM NE-TOBACCO QUIT 15 YRS OR MORE [facility] May 01, 2022 01:30 PM VA-TOBACCO FORMER USER [facility] May 01, 2022 01:30 PM VA-TOBACCO QUIT 15 YRS OR MORE [facility] Apr 15, 2021 03:00 PM VA-TOBACCO FORMER USER [facility] Apr 15, 2021 03:00 PM VA-TOBACCO QUIT 15 YRS OR MORE [facility] Oct 20, 2018 12:53 PM VA-TOBACCO FORMER USER [facility] Oct 20, 2018 12:53 PM VA-TOBACCO QUIT 15 YRS OR MORE [facility] Jul 03, 2017 10:33 AM QUIT TOBACCO USE > 7 YEARS AGO quit 25yrs ago [facility] February 13, 2016 08:46 AM LIFETIME NON-TOBACCO USER [facility] Advance Directives: All historical and current Section [...] AM CHEST CT W/O CONT: JAKE DUGAN [id number] -1945 M Exm Date: SEP 01, 2024@10:54 Req Phys: LBUA,NOLAN Pat Loc: C[facility]/SO/PACT 9 (Req'g Loc) Img Loc: [facility]/CT Service: [place] [address] (Case [id number] COMPLETE) CT THORAX W/O CONT (CT Detailed) CPT:47277 Reason for Study: LDCT Clinical History: lung CA screen/surveillance as per protocol Report Status: Verified Date Reported: SEP 01, 2024 Date Verified: SEP 01, 2024 Hand Molder E-Sig:/ES/STARR MCDANIEL JR Report: Study: Noncontrast CT [...] Primary Interpreting Staff: STARR MCDANIEL JR, Radiologist (Hand Molder) /STARR HERNANDEZ JR [facility] Aug 16, 2024 02:[address] ABDOMEN AND PELVIS WITH CONTRAST: JAKE DUGAN [id number] -1945 M Ex Date: AUG 16, 2024@14:04 Req Phys: NOLAN VERDUZCO Pat Loc: C[facility]/SO/PACT 9 (Req'g Loc) Img Loc: [facility]/CT Service: Unknown [facility] [place] [address] (Case [id number] COMPLETE) CT ABDOMEN AND PELVIS WITH CONTRA(CT Detailed) CPT:73909 Contrast Media : Non-ionic Iodinated Reason for Study: prostate CA Clinical History: Report Status: Verified Date Reported: AUG 16, 2024 Date Verified: AUG 16, 2024 Hand Molder E-Sig: Report: CT ABDOMEN AND PELVIS WITH CONTRAST HISTORY: prostate CA COMPARISON: 03/14/2024 TECHNIQUE: CT of the abdomen and pelvis with multiplanar reformats was performed at the local [place] facility. A contrast-enhanced series was obtained in the portal venous phase. 350 images were received by the [place] National Teleradiology Program (NTP) for interpretation. RADIATION [...] tumor infiltration. READING PHYSICIAN: Kwabena Perez M.D. -[phone] 08/16/2024 20:18 [facility] National Teleradiology Program [phone] (For Medical Practitioner Use Only) Attention Patients / Veterans: If you have questions or concerns about these test results, please contact your ordering provider or primary care team. Primary Diagnostic Code: POSSIBLE MALIGNANCY Primary Interpreting Staff: RADIOLOGY,OUTSIDE SERVICE, Staff Physician / RADIOLOGY,OUTSIDE SERVICE [facility] Pathology Reports: +/- 30 days [...] comes from all NE treatment facilities. Date/Time Pathology Report Provider Source Aug 24, 2024 11:28 AM LR MICROBIOLOGY RE PORT: Reporting Lab: [facility] [CLIA# [id number]] [address] [place] [address] Accession [UID]: [id number] [[id number]] Received: Aug 24, 2024@11:28 Collection sample: URINE CLEAN CATCH Collection date: Aug 24, 2024 11:28 Site/Specimen: URINE Provider: NOLAN VERDUZCO Comment on specimen: POSITIVE CULTURE RESULTS MAY NOT REPRESENT CLINICAL INFECTION. CONSIDER NEED FOR ANTIBIOTICS IN THE CONTEXT OF UTI SYMPTOMS. Test(s) ordered: URINE CULTURE(MWROX).......... completed: Aug 29, 2024 08:33 * BACTERIOLOGY FINAL REPORT => Aug 29, 2024 08:32 TECH CODE: [id number] CULTURE RESULTS: 1. KLEBSIELLA OXYTOCA/RAOULTELLA ORNITHINOLYTICA - [...] Laboratory: Klebsiella Oxytoca/raoultella Ornithinolytica Performed By: [facility] [CLIA# [id number]] [address] [place] [address] Pseudomonas Aeruginosa Performed By: [facility] [CLIA# [id number]] [address] [place] [address] Bact Report Remark #1 Performed By: [facility] [CLIA# [id number]] [address] [place] [address] Bact Report Remark #2 Performed By: [facility] [CLIA# [id number]] [address] [place] [id number] ENRIQUETA FLORES [facility] Encounter Notes: All associated encounter notes This section contains the clinical notes associated to the Encounter. Date/Time Encounter Note(s) Provider Source Aug 31, 2024 10:39 AM PHYSICIAN TELEPHON E ENCOUNTER NOTE: LOCAL TITLE: TELEPHONE NOTE/MD STANDARD TITLE: PHYSICIAN TELEPHONE ENCOUNTER NOTE DATE OF NOTE: AUG 31, 2024@10:39 ENTRY DATE: AUG 31, 2024@10:39:21 AUTHOR: NOLAN VERDUZCO EXP COSIGNER: URGENCY: STATUS: COMPLETED Patient reports possible kidney stones at a recent ER visit and discharged. Discussed findings of latest NE CT of pelvis and abdomen. He is agreeable to pursuing a CT of lungs to further eval incidental findings of subcentimeter nodules in the lower lung jay. He reports no respiratory sxs at this time. He'll pick-up copies of the NE CT study today. The consult for [facility] urology (pending) has been modified of the new pelvic LNadeopathy. A/P Metastatic prostate CA in patient with possible new nephrolithiasis aside from continued urologic complications from untreated prostate CA. Plans as above. Further pulmonary involvement to be assessed with full LDCT scan. /mariana/ NOLAN VERDUZCO MD PHYSICIAN Signed: 08/31/2024 10:48 Receipt Acknowledged By: 08/31/2024 13:31 /mariana/ ROWENA ROY NP NURSE PRACTITIONER NOLAN VERDUZCO [facility]
--- OUTSIDE RECORDS SUMMARY | 2024-09-07 15:35 | XMS_ITS | Encounter Summary ---
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 ([place] Organization Department of [facility] Affairs ([place]) Address [address] [place] [id number] Care Team Providers Care Draw Tender Name Role Phone ROWENA ROY Primary [...] Segal's Name Patient's Relationship to Policy [facility]al [facility] [place] IN[place] IDUAL - [place] Sep 21, 2023 [id number] [phone] GENET DUGAN S [facility]) [facility] AD[facility]ANT[facility] ([facility]) Sep 21, 2023 [id number] [phone] MARVIN DUGANI S PATIENT HUSKY MEDICAID HUSKY PLAN May 22, 2022 MEDICAI D [id number] GENET DUGAN S PATIENT MEDICARE ([facility]) MEDICARE (M) PART B May 22, 2022 PART B [id number] MARVIN DUGANI S PATIENT MEDICARE ([facility]) MEDICARE (M) PART A Feb 19, 2009 PART A [id number] DUGAN,GENET S PATIENT MEDICARE PART D (WNR) MEDICARE (M) PART D Jul 22, 2022 PART D [id number] [phone] GENET DUGAN S PATIENT [facility] (WNR) MEDICARE ADVANTAGE [facility] (WNR) Sep 21, 2022 [id number] GENET DUGAN S PATIENT [facility] (WNR) MEDICARE ADVANTAGE [facility] (WNR) Sep 21, 2022 [id number] GENET DUGAN PATIENT Selected Encounter This section includes the information on record at [place] for the Encounter. Date/Time Encounter Type Encounter Description Reason Pro vider Source Sep 05, 2024 12:04 PM Outpatient Encounter PRIMARY CARE/MEDICINE IHE Encounter [...] Appointment Type Appointme nt Facility Name Sep 07, 2024 03:00 PM AMBULATORY - MEDICINE [place] [facility] [place] [facility] Dec 13, 2024 01:30 PM AMBULATORY - MEDICINE [facility] Jan 02, 2025 10:00 AM AMBULATORY - MEDICINE [facility] [place] [facility] Active, Pending, and Scheduled Orders [...] 09:40 AM Consult Order COMMUNITY CARE-UROLOGY Cons Book Salesman's Choice [place] [facility] [place] [facility] Lab Results: +/- 30 days of the encounter This section includes the Chemistry and Hematology Lab Results on record with [place] for the patient. Radiology Reports and Pathology Reports are provided separately, in subsequent sections. Lab Results This section contains the Chemistry/Hematology Results that were resulted 30 days before or 30 daysafter the date of the Encounter. Date/Time Source Result Type Result - Unit Interpretation Reference Range Comment Aug 24, 2024 11:28 AM [facility] CBC AND DIFF (AUTO) Specimen Type: BLOOD No comment entered. Ordering Provider: ROWENA ROY Report Released Date/Time: Aug 24, 2024 11:07 AM Reporting Lab: [facility] [address] [facility] [address] Performing Lab: [facility] [address] [address] WBC 8.84 10*3/uL 4.50-11.00 RBC 4.72 10*6/uL [...] 10*3/uL 0.00-0.00 Aug 24, 2024 11:28 AM [facility] MICROSCOPIC AUTOMATED, URINE Specimen Type: URINE Comment: If Glucose = >500 and Ketones are positive, please alert the Physician. Ordering Provider: MONICA VERDUZCO Report Released Date/Time: Aug 09, 2024 09:43 AM Reporting Lab: [facility] [address] [facility] [facility] [address] Performing Lab: [facility] [address] [address] UA WBC 0-5 /[HPF] 0-5 UA BACTERIA 1+ /[HPF] NoneObs UA TRIPLE PHOSPHATE CRYSTALS MODERATE /[HPF] Not Established UA RBC 6-10 /[HPF] H 0-3 Aug 24, 2024 11:28 AM [facility] URINALYSIS Specimen Type: URINE Comment: If Glucose = >500 and Ketones are positive, please alert the Physician. Ordering Provider: MONICA VERDUZCO Report Released Date/Time: Aug 09, 2024 09:43 AM Reporting Lab: [facility] [address] [facility] [address] Performing Lab: [address] [address] UA COLOR Light-Brown Yellow UA APPEARANCE Turbid Clear UA GLUCOSE Normal mg/dL Negative UA KETONES NEGATIVE mg/dL Negative UA BLOOD LARGE mg/dL Negative UA PROTEIN 100 mg/dL Negative UA NITRITE NEGATIVE mg/dL Negative UA BILIRUBIN NEGATIVE mg/dL Negative UA SPECIFIC GRAVITY 1.007 L 1.016-1.022 UA pH 8.5 5.0-9.0 UA UROBILINOGEN Normal mg/dL <2.0 UA LEUKOCYTE LARGE Negative Aug 08, 2024 10:59 AM [facility] VITAMIN D 25-OH (Therapy monitor) Specimen [...] For additional information, please refer to http://educatio [email or web address].AutoUn[employer].com/faq/FAQ 199 (This link is being provided for informational/ educational purposes only.) This test was developed and its analytical performance characteristics have been determined by [facility] [place]. It has not been cleared or approved by the U.S. Food and Drug Administration. This assay has been validated pursuant to the CLIA regulations and is used for clinical purposes. This test was developed and its analytical performance characteristics have been determined by [facility] [place] [place]. It has not been cleared or approved by the U.S. Food and Drug Administration. This assay has been validated pursuant to the CLIA regulations and is used for clinical purposes. Test Performed by [facility], [facility], [address] [place] [address] Dov Bahena M.D., Ph.D., Director of Laboratories , CLIA [id number] TEST PERFORMED AT: , Ordering Provider: MONICA VERDUZCO Report Released Date/Time: Aug 08, 2024 10:54 AM Reporting Lab: [facility] [address] [facility] [address] Performing Lab: [facility] [address] [address] VITAMIN D, 25-OH, TOTAL 51 ng/mL 30-100 VITAMIN D, 25-OH, D3 51 ng/mL VITAMIN D, 25-OH, D2 <4 ng/mL Aug 08, 2024 10:59 AM [facility] FOLATE (WROX) Specimen Type: SERUM No comment entered. Ordering Provider: MONICA VERDUZCO Report Released Date/Time: Aug 08, 2024 10:54 AM Reporting Lab: [facility] [address] [facility] [address] Performing Lab: [facility] [address] [facility] [address] FOLATE (WROX) 4.07 ng/mL L >5.2 Aug 08, 2024 10:59 AM [facility] MICROALBUMIN CREATININE RATIO PANEL Specimen Type: URINE No comment entered. Ordering Provider: MONICA VERDUZCO Report Released Date/Time: Aug 08, 2024 10:54 AM Reporting Lab: [facility] [address] [facility] [address] Performing Lab: [facility] [address] [facility] [address] MICROALBUMIN/ CREATININE RATIO 354.2 mg/g H 0-29.9 MICROALBUMIN, QUANTITATIVE 103.3 mg/dL RR UNAVAIL CREATININE URINE 291.68 mg/dL Aug 08, 2024 10:59 AM [facility] VITAMIN B12 Specimen Type: SERUM No comment entered. Ordering Provider: MONICA VERDUZCO Report Released Date/Time: Aug 08, 2024 10:54 AM Reporting Lab: [facility] [address] [facility] [address] Performing Lab: [facility] [address] [facility] [address] VITAMIN B12 1849 pg/mL H 200-900 Aug 08, 2024 10:59 AM [facility] LIPID PANEL FASTING Specimen Type: SERUM No comment entered. Ordering Provider: MONICA VERDUZCO Report Released Date/Time: Aug 08, 2024 10:54 AM Reporting Lab: [facility] [address] [facility] [address] Performing Lab: [facility] [address] [facility] [address] CHOLESTEROL 178 mg/dL TRIGLYCERIDE 97 mg/dL 0-150 LDL calculated 97 mg/dL 0-129 CHOL/HDL 2.9 HDL CHOLESTEROL 62 mg/dL H 40-60 Aug 08, 2024 10:59 AM [facility] BASIC METABOLIC PANEL (fasting) Specimen Type: SERUM No comment entered. Ordering Provider: MONICA VERDUZCO Report Released Date/Time: Aug 08, 2024 10:54 AM Reporting Lab: [facility] [address] [facility] [address] Performing Lab: [facility] [address] [facility] [address] UREA NITROGEN 22 mg/dL 7-25 GLUCOSE 91 mg/dL 65-100 SODIUM 138 mmol/L 135-145 POTASSIUM 4.8 mmol/L 3.5-5.0 CHLORIDE 105 mmol/L 100-110 CO2 25 meq/L 20-30 CREATININE, Serum 0.99 mg/dL 0.50-1.40 eGFR(CKD-EPI 2020) 77 mL/min >60 Aug 08, 2024 10:59 AM [facility] HEMOGLOBIN A1C PANEL Specimen Type: BLOOD [...] Aug 08, 2024 10:54 AM Reporting Lab: [address] [address] Performing Lab: [address] [address] HEMOGLOBIN A1C 5.2 4.0-5.6 Aug 08, 2024 10:59 AM [facility] LIVER FUNCTION Specimen Type: SERUM No comment entered. Ordering Provider: MONICA VERDUZCO Report Released Date/Time: Aug 08, 2024 10:54 AM Reporting Lab: [facility] [address] [facility] [address] Performing Lab: [address] [address] PROTEIN,TOTAL 6.7 g/dL 6.0-8.3 ALBUMIN 3.4 g/dL L 3.5-5.0 ALKALINE PHOSPHATASE 151 U/L H 40-150 AST 17 U/L 5-34 ALT 8 U/L BILIRUBIN, TOTAL 0.5 mg/dL 0.2-1.2 Aug 08, 2024 10:59 AM [facility] TSH Specimen Type: SERUM No comment entered. Ordering Provider: MONICA VERDUZCO Report Released Date/Time: Aug 08, 2024 10:54 AM Reporting Lab: [facility] [address] [facility] [address] Performing Lab: [facility]ITAL[facility]ITAL[facility] [address] [address] TSH 1.93 u[IU]/mL 0.35-5.00 Aug 08, 2024 10:59 AM [facility] PSA Specimen Type: SERUM No comment entered. Ordering Provider: MONICA VERDUZCO Report Released Date/Time: Aug 08, 2024 10:54 AM Reporting Lab: [facility] [address] [address] Performing Lab: [facility] [address] [address] PSA 30.59 ng/mL H 0.00-4.00 Aug 08, 2024 10:59 AM [facility] CBC AND DIFF (AUTO) Specimen Type: BLOOD No comment entered. Ordering Provider: MONICA VERDUZCO Report Released Date/Time: Aug 08, 2024 10:54 AM Reporting Lab: [facility] [address] [address] Performing Lab: [facility]ITALR[facility]ENTERTRN [facility] [address] [address] WBC 7.81 10*3/uL 4.50-11.00 RBC 4.88 10*6/uL [...] ADVANCE DIRECTIVE [facility] Radiology Reports: +/- 30 days [...] the Encounter. The data comes from all [place] treatment facilities. Date/Time Radiology Report Provider Source Sep 01, 2024 10:[address] W/O CONT: JAKE DUGAN [id number] -[id number] M Exm Date: SEP 01, 2024@10:54 Req Phys: LUBA,NOLAN Pat Loc: CWM/SO/PACT 9 (Req'g Loc) Img Loc: [facility]/CT Service: Unknown [facility] [place] [facility] [place], [place] [address] (Case [id number] COMPLETE) CT THORAX W/O CONT (CT Detailed) CPT:70171 Reason for Study: LDCT Clinical History: lung CA screen/surveillance as per protocol Report Status: Verified Date Reported: SEP 01, 2024 Date Verified: SEP 01, 2024 Payable Representative E-Sig:/ES/STARR MCDANIEL JR Report: Study: Noncontrast CT [...] Primary Interpreting Staff: STARR MCDANIEL JR, Radiologist (Payable Representative) /STARR HERNANDEZ JR [place] [facility] [place] [facility] Aug 16, 2024 02:[address] ABDOMEN AND PELVIS WITH CONTRAST: JAKE DUGAN [id number] -1945 M Ex Date: AUG 16, 2024@14:04 Req Phys: LUBA,NOLAN Pat Loc: CWM/SO/PACT 9 (Req'g Loc) Img Loc: [facility]/CT Service: Unknown [place] [facility] [place] [facility] [place] [address] (Case [id number] COMPLETE) CT ABDOMEN AND PELVIS WITH CONTRA(CT Detailed) CPT:10828 Contrast Media : Non-ionic Iodinated Reason for Study: prostate CA Clinical History: Report Status: Verified Date Reported: AUG 16, 2024 Date Verified: AUG 16, 2024 Payable Representative E-Sig: Report: CT ABDOMEN AND PELVIS WITH CONTRAST HISTORY: prostate CA COMPARISON: 03/14/2024 TECHNIQUE: CT of the abdomen and pelvis with multiplanar reformats was performed at the local [place] facility. A contrast-enhanced series was obtained in the portal venous phase. 350 images were received by the [place] National Teleradiology Program (NTP) for interpretation. RADIATION [...] tumor infiltration. READING PHYSICIAN: Kwabena Perez M.D. -[id number] 08/16/2024 20:18 [facility] National Teleradiology Program [phone] (For Medical Practitioner Use Only) Attention Patients / Veterans: If you have questions or concerns about these test results, please contact your ordering provider or primary care team. Primary Diagnostic Code: POSSIBLE MALIGNANCY Primary Interpreting Staff: RADIOLOGY,OUTSIDE SERVICE, Staff Physician / RADIOLOGY,OUTSIDE SERVICE [facility] Pathology Reports: +/- 30 days of [...] the Encounter. The data comes from all [place] treatment facilities. Date/Time Pathology Report Provider Source Aug 24, 2024 11:28 AM LR MICROBIOLOGY RE PORT: Reporting Lab: [facility] [place] [facility] [CLIA# [id number]] [address] [place] [address] Accession [UID]: [id number] [[id number]] Received: Aug 24, 2024@11:28 Collection sample: URINE CLEAN CATCH Collection date: Aug 24, 2024 11:28 Site/Specimen: URINE Provider: NOLAN VERDUZCO Comment on specimen: POSITIVE CULTURE RESULTS MAY NOT REPRESENT CLINICAL INFECTION. CONSIDER NEED FOR ANTIBIOTICS IN THE CONTEXT OF UTI SYMPTOMS. Test(s) ordered: URINE CULTURE(MWROX).......... completed: Aug 29, 2024 08:33 * BACTERIOLOGY FINAL REPORT => Aug 29, 2024 08:32 TECH CODE: [id number] CULTURE RESULTS: 1. KLEBSIELLA OXYTOCA/RAOULTELLA ORNITHINOLYTICA - [...] Performing Laboratory: Klebsiella Oxytoca/raoultella Ornithinolytica Performed By: [facility] [CLIA# [id number]] [address] [place] [address] Pseudomonas Aeruginosa Performed By: [facility] [CLIA# [id number]] [address] [place] [address] Bact Report Remark #1 Performed By: [facility] [CLIA# [id number]] [address] [place] [address] Bact Report Remark #2 Performed By: [facility] [CLIA# [id number]] [address] [place] [address] ENRIQUETA FLORES [facility] Encounter Notes: All associated encounter notes This section contains the clinical notes associated to the Encounter. Date/Time Encounter Note(s) Provider Source Sep 05, 2024 12:04 PM PRIMARY CARE NOTE: LOCAL TITLE: WALK-IN NOTE PRIMARY CARE (T) STANDARD TITLE: PRIMARY CARE NOTE DATE OF NOTE: SEP 05, 2024@12:04 ENTRY DATE: SEP 05, 2024@12:04:35 AUTHOR: RENO PIZARROIGNER: URGENCY: STATUS: COMPLETED WALK-IN NOTE PRIMARY CARE (T) Has ADDENDA <====Click to Start Advanced Medical Support presents to the Primary Care clinic with the following request: [ ]Medication Renewal/Refill [ ]Consultation with Team RN [ ]Symptoms [ X ]Other [facility] [place] states they are: [ ]Waiting [ X ]Not Waiting No Walk in visit scheduled with PACT Nurse [ X ] At this encounter the [place]'s demographics were verified. [ ] At this encounter the [place]'s Insurance information was verified. [ ] At this encounter the below scheduled visits for the were discussed and appointment reminder card was offered. 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 This chief underwriter advised patient a request will be made for PCP to enter Consult to [facility] which will be handled by [facility] to schedule future appts. /es/ LIANE PIZARRO Advanced Seat Cover Cutter Signed: 09/05/2024 12:09 Receipt Acknowledged By: 09/06/2024 13:29 /es/ Viky Barnard, RN Registered Nurse for SHANTAL JESSICA 09/06/2024 15:19 /es/ ROWENA ROY NP NURSE PRACTITIONER 09/06/2024 ADDENDUM STATUS: COMPLETED Spoke with . He states he does not want to go to [facility] urology or [facility], he only want to go to [facility] because per his research, Dr. Robertson is the best. states he already has appointment tomorrow 09/07/2024 at 15:00. [place] states he will use [facility] for visit tomorrow but wants comm care for future. Will also be asking urology for referral to oncology. [facility] urologist at [facility] has done nothing for two years, he has had hematuria and has gone to ER 15 times in past two years. Spoke with [facility]. Per [facility], [facility] - urology consult dated 08/09/2024 can be updated to [facility] and be effective by appointment tomorrow. [place] advised and he indicates understanding. /es/ Viky Barnard, RN Registered Nurse Signed: 09/06/2024 13:29 LIANE PIZARRO OGEMA
--- OUTSIDE RECORDS SUMMARY | 2024-09-07 15:35 | XMS_ITS | Encounter Summary ---
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 Organization [place] Address [address] [place] [address] Care Team Providers Care Staff [employer] Officer Name Role Phone ROWENA ROY Primary [...] Segal's Name Patient's Relationship to Policy Segal [facility] ([facility]) MEDICARE ADVANTAGE [place] INDIV IDUAL - [place] Sep 21, 2023 [id number] [phone] GENET DUGAN S [facility]) [facility] AD[facility]ANTAGE [facility] ([facility]) Sep 21, 2023 [id number] [phone] DUGAN,GENET S PATIENT HUSKY MEDICAID HUSKY PLAN May 22, 2022 MEDICAI D [id number] MARVIN DUGANI S PATIENT MEDICARE (WN) MEDICARE (M) PART B May 22, 2022 PART B [id number] [phone] DUGAN,GENET S PATIENT MEDICARE (WNR) MEDICARE (M) PART A Feb 19, 2009 PART A [id number] DUGAN,GENET S PATIENT MEDICARE PART D (WNR) MEDICARE (M) PART D Jul 22, 2022 PART D [id number] GENET DUGAN PATIENT [facility] (WNR) MEDICARE ADVANTAGE [facility] (WNR) Sep 21, 2022 [id number] GENET DUGAN PATIENT [facility] (WNR) MEDICARE ADVANTAGE MCR (WNR) Sep 21, 2022 [id number] [phone] GENET DUGAN PATIENT Selected Encounter This section [...] activities for the patient from all [place] [facility]. This section includes future appointments [...] 01, 2024 11:00 AM [facility] Sep 07, 2024 03:00 PM [facility] Dec 13, 2024 01:30 PM AMBULATORY - MEDICINE [facility] Jan 02, 2025 10:00 AM AMBULATORY - MEDICINE [facility] Active, Pending, and Scheduled Orders [...] The data comes from all [place] treatment [facility]. Test Date/Time Test Type Test Details Facility Name Aug 09, 2024 09:40 AM Consult Order COMM[facility]-UROLOGY Cons [facility] Lab Results: +/- 30 days of [...] Range Comment Aug 24, 2024 11:28 AM [facility] CBC AND DIFF (AUTO) Specimen Type: BLOOD No comment entered. Ordering Provider: ROWENA ROY Report Released Date/Time: Aug 24, 2024 11:07 AM Reporting Lab: [facility] [address] [facility] [address] Performing Lab: [facility] [address] [facility] [address] WBC 8.84 10*3/uL 4.50-11.00 RBC 4.72 10*6/uL [...] 10*3/uL 0.00-0.00 Aug 24, 2024 11:28 AM [facility] MICROSCOPIC AUTOMATED, URINE Specimen Type: URINE Comment: If Glucose = >500 and Ketones are positive, please alert the Physician. Ordering Provider: MONICA VERDUZCO Report Released Date/Time: Aug 09, 2024 09:43 AM Reporting Lab: [facility] [address] [facility] [address] Performing Lab: [facility] [address] [facility] [address] UA WBC 0-5 /[HPF] 0-5 UA BACTERIA 1+ /[HPF] NoneObs UA TRIPLE PHOSPHATE CRYSTALS MODERATE /[HPF] Not Established UA RBC 6-10 /[HPF] H 0-3 Aug 24, 2024 11:28 AM [facility] URINALYSIS Specimen Type: URINE Comment: If Glucose = >500 and Ketones are positive, please alert the Physician. Ordering Provider: MONICA VERDUZCO Report Released Date/Time: Aug 09, 2024 09:43 AM Reporting Lab: [facility] [address] [facility] [address] Performing Lab: [address] [address] UA COLOR Light-Brown Yellow UA APPEARANCE Turbid Clear UA GLUCOSE Normal mg/dL Negative UA KETONES NEGATIVE mg/dL Negative UA BLOOD LARGE mg/dL Negative UA PROTEIN 100 mg/dL Negative UA NITRITE NEGATIVE mg/dL Negative UA BILIRUBIN NEGATIVE mg/dL Negative UA SPECIFIC GRAVITY 1.007 L 1.016-1.022 UA pH 8.5 5.0-9.0 UA UROBILINOGEN Normal mg/dL <2.0 UA LEUKOCYTE LARGE Negative Aug 08, 2024 10:59 AM [facility] VITAMIN D 25-OH (Therapy monitor) Specimen [...] For additional information, please refer to http://educatio [email or web address].[employer]/faq/FAQ 199 (This link is being provided for informational/ educational purposes only.) This test was developed and its analytical performance characteristics have been determined by [facility] [place], [place]. It has not been cleared or approved by the U.S. Food and Drug Administration. This assay has been validated pursuant to the CLIA regulations and is used for clinical purposes. This test was developed and its analytical performance characteristics have been determined by [facility] [place], [place]. It has not been cleared or approved by the U.S. Food and Drug Administration. This assay has been validated pursuant to the CLIA regulations and is used for clinical purposes. Test Performed by [facility], [address] [place] [address] Dov Bahena M.D., Ph.D., Director of Laboratories , CLIA [id number] TEST PERFORMED AT: , Ordering Provider: MONICA VERDUZCO Report Released Date/Time: Aug 08, 2024 10:54 AM Reporting Lab: [facility] [address] [facility] [address] Performing Lab: [facility] [address] [address] VITAMIN D, 25-OH, TOTAL 51 ng/mL 30-100 VITAMIN D, 25-OH, D3 51 ng/mL VITAMIN D, 25-OH, D2 <4 ng/mL Aug 08, 2024 10:59 AM [facility] FOLATE (WROX) Specimen Type: SERUM No comment entered. Ordering Provider: MONICA VERDUZCO Report Released Date/Time: Aug 08, 2024 10:54 AM Reporting Lab: [facility] [address] [facility] [address] Performing Lab: [facility] [address] [facility] [address] FOLATE (WROX) 4.07 ng/mL L >5.2 Aug 08, 2024 10:59 AM [facility] VITAMIN B12 Specimen Type: SERUM No comment entered. Ordering Provider: MONICA VERDUZCO Report Released Date/Time: Aug 08, 2024 10:54 AM Reporting Lab: [facility] [address] [facility] [address] Performing Lab: [facility] [address] [facility] [address] VITAMIN B12 1849 pg/mL H 200-900 Aug 08, 2024 10:59 AM [facility] MICROALBUMIN CREATININE RATIO PANEL Specimen Type: URINE No comment entered. Ordering Provider: MONICA VERDUZCO Report Released Date/Time: Aug 08, 2024 10:54 AM Reporting Lab: [facility] [address] [facility] [address] Performing Lab: [facility] [address] [facility] [address] MICROALBUMIN/ CREATININE RATIO 354.2 mg/g H 0-29.9 MICROALBUMIN, QUANTITATIVE 103.3 mg/dL RR UNAVAIL CREATININE URINE 291.68 mg/dL Aug 08, 2024 10:59 AM [facility] BASIC METABOLIC PANEL (fasting) Specimen Type: SERUM No comment entered. Ordering Provider: MONICA VERDUZCO Report Released Date/Time: Aug 08, 2024 10:54 AM Reporting Lab: [facility] [address] [facility] [address] Performing Lab: [facility] [address] [facility] [address] UREA NITROGEN 22 mg/dL 7-25 GLUCOSE 91 mg/dL 65-100 SODIUM 138 mmol/L 135-145 POTASSIUM 4.8 mmol/L 3.5-5.0 CHLORIDE 105 mmol/L 100-110 CO2 25 meq/L 20-30 CREATININE, Serum 0.99 mg/dL 0.50-1.40 eGFR(CKD-EPI 2020) 77 mL/min >60 Aug 08, 2024 10:59 AM [facility] LIPID PANEL FASTING Specimen Type: SERUM No comment entered. Ordering Provider: MONICA VERDUZCO Report Released Date/Time: Aug 08, 2024 10:54 AM Reporting Lab: [facility] [address] [facility] [address] Performing Lab: [facility] [address] [facility] [address] CHOLESTEROL 178 mg/dL TRIGLYCERIDE 97 mg/dL 0-150 LDL calculated 97 mg/dL 0-129 CHOL/HDL 2.9 HDL CHOLESTEROL 62 mg/dL H 40-60 Aug 08, 2024 10:59 AM [facility] LIVER FUNCTION Specimen Type: SERUM No comment entered. Ordering Provider: MONICA VERDUZCO Report Released Date/Time: Aug 08, 2024 10:54 AM Reporting Lab: [address] [address] Performing Lab: [address] [address] PROTEIN,TOTAL 6.7 g/dL 6.0-8.3 ALBUMIN 3.4 g/dL L 3.5-5.0 ALKALINE PHOSPHATASE 151 U/L H 40-150 AST 17 U/L 5-34 ALT 8 U/L BILIRUBIN, TOTAL 0.5 mg/dL 0.2-1.2 Aug 08, 2024 10:59 AM [facility] HEMOGLOBIN A1C PANEL Specimen Type: BLOOD [...] Aug 08, 2024 10:54 AM Reporting Lab: [address] [address] Performing Lab: [facility] [address] [facility] [address] HEMOGLOBIN A1C 5.2 4.0-5.6 Aug 08, 2024 10:59 AM [place] [facility] [place] [facility] TSH Specimen Type: SERUM No comment entered. Ordering Provider: MONICA VERDUZCO Report Released Date/Time: Aug 08, 2024 10:54 AM Reporting Lab: [facility] [place] [facility] [address] [facility] [address] Performing Lab: [place] [facility] [place] [facility] [address] [facility] [address] TSH 1.93 u[IU]/mL 0.35-5.00 Aug 08, 2024 10:59 AM [facility] PSA Specimen Type: SERUM No comment entered. Ordering Provider: MONICA VERDUZCO Report Released Date/Time: Aug 08, 2024 10:54 AM Reporting Lab: [facility] [place] [facility] [address] [facility] [address] Performing Lab: [facility] [place] [facility] [address] [facility] [address] PSA 30.59 ng/mL H 0.00-4.00 Aug 08, 2024 10:59 AM [facility] CBC AND DIFF (AUTO) Specimen Type: BLOOD No comment entered. Ordering Provider: MONICA VERDUZCO Report Released Date/Time: Aug 08, 2024 10:54 AM Reporting Lab: [facility] [place] [facility] [address] [facility] [address] Performing Lab: [facility] [place] [address] [address] WBC 7.81 10*3/uL 4.50-11.00 RBC 4.88 10*6/uL [...] 04, 2024 ADVANCE DIRECTIVE CHAPINCITO DEE [facility] Radiology Reports: +/- 30 days [...] AM CHEST CT W/O CONT: JAKE DUGAN [id number] -1945 M Exm Date: SEP 01, 2024@10:54 Req Phys: NOLAN VERDUZCO Loc: CWM/SO/PACT 9 (Req'g Loc) Img Loc: NHM/CT Service: Unknown [facility] [place] [place] [address] (Case [id number] COMPLETE) CT THORAX W/O CONT (CT Detailed) CPT:63853 Reason for Study: LDCT Clinical History: lung CA screen/surveillance as per protocol Report Status: Verified Date Reported: SEP 01, 2024 Date Verified: SEP 01, 2024 Clinical Interviewer E-Sig:/ES/STARR MCDANIEL JR Report: Study: Noncontrast CT [...] Primary Interpreting Staff: STARR MCDANIEL JR, Radiologist (Clinical Interviewer) /STARR HERNANDEZ JR [place] [facility] [place] [facility] Aug 16, 2024 02:[address] ABDOMEN AND PELVIS WITH CONTRAST: DUGANJAKE [id number] -1945 M Exm Date: AUG 16, 2024@14:04 Req Phys: LUBA,NOLAN Pat Loc: CWM/SO/PACT 9 (Req'g Loc) Img Loc: [place]/CT Service: Unknown [place] [facility] [place] [facility] [place], [place] [address] (Case [id number] COMPLETE) CT ABDOMEN AND PELVIS WITH CONTRA(CT Detailed) CPT:16669 Contrast Media : Non-ionic Iodinated Reason for Study: prostate CA Clinical History: Report Status: Verified Date Reported: AUG 16, 2024 Date Verified: AUG 16, 2024 Clinical Interviewer E-Sig: Report: CT ABDOMEN AND PELVIS WITH [...] tumor infiltration. READING PHYSICIAN: Kwabena Perez M.D. -[phone] 08/16/2024 20:18 [facility] National Teleradiology Program [phone] (For Medical Practitioner Use Only) Attention Patients / Veterans: If you have questions or concerns about these test results, please contact your ordering provider or primary care team. Primary Diagnostic Code: POSSIBLE MALIGNANCY Primary Interpreting Staff: RADIOLOGY,OUTSIDE SERVICE, Staff Physician / RADIOLOGY,OUTSIDE SERVICE [facility] Pathology Reports: +/- 30 days of [...] AM LR MICROBIOLOGY RE PORT: Reporting Lab: [facility] [CLIA# [id number]] [address] [place] [address] Accession [UID]: [id number] [[id number]] Received: Aug 24, 2024@11:28 Collection sample: URINE CLEAN CATCH Collection date: Aug 24, 2024 11:28 Site/Specimen: URINE Provider: NOLAN VERDUZCO Comment on specimen: POSITIVE CULTURE RESULTS MAY NOT REPRESENT CLINICAL INFECTION. CONSIDER NEED FOR ANTIBIOTICS IN THE CONTEXT OF UTI SYMPTOMS. Test(s) ordered: URINE CULTURE(MWROX).......... completed: Aug 29, 2024 08:33 * BACTERIOLOGY FINAL REPORT => Aug 29, 2024 08:32 TECH CODE: [id number] CULTURE RESULTS: 1. KLEBSIELLA OXYTOCA/RAOULTELLA ORNITHINOLYTICA - [...] Performing Laboratory: Klebsiella Oxytoca/raoultella Ornithinolytica Performed By: [facility] [CLIA# [id number]] [address] [place] [address] Pseudomonas Aeruginosa Performed By: [facility] [CLIA# [id number]] [address] [place] [address] Bact Report Remark #1 Performed By: [facility] [CLIA# [id number]] [address] [place] [address] Bact Report Remark #2 Performed By: [facility] [CLIA# [id number]] [address] [place] [address] ENRIQUETA FLORES [facility] Encounter Notes: All associated encounter notes [...] Filed: 08/30/2024 by: SUNITA MCDONOUGH [facility]
--- OUTSIDE RECORDS SUMMARY | 2024-09-07 15:35 | XMS_ITS | Encounter Summary ---
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 Organization [place] Address [address] [place] [address] Care Team Providers Care Environmental Programs Manager Name Role Phone ROWENA ROY Primary [...] INDIV IDUAL - MASS Sep 21, 2023 [id number] [phone] GENET [facility]AN [facility] ([facility]) Sep 21, 2023 [id number] [phone] DUGAN,GENET S PATIENT [place]KY MEDICAID H[place] PLAN May 22, 2022 MEDICAI D [id number] MARVIN DUGANI S PATIENT MEDICARE ([facility]) MEDICARE (M) PART B May 22, 2022 PART B [id number] [phone] DUGAN,GENET S PATIENT MEDICARE (WN) MEDICARE (M) PART A Feb 19, 2009 PART A [id number] [phone] DUGAN,GENET S PATIENT MEDICARE PART D (WNR) MEDICARE (M) PART D Jul 22, 2022 PART D [id number] GENET DUGAN S PATIENT [facility] (WNR) MEDICARE ADVANTAGE MCR (WNR) Sep 21, 2022 [id number] GENET DUGAN PATIENT [facility] MCR (WNR) MEDICARE ADVANTAGE MCR (WNR) Sep 21, 2022 [id number] GENET DUGAN PATIENT Selected Encounter This [...] 09, 2024 09:00 AM AMBULATORY - MEDICINE [place] [facility] [place] [facility] Aug 16, 2024 12:00 PM AMBULATORY - NONE [place] [facility] [place] [facility] Aug 22, 2024 11:20 AM AMBULATORY - MEDICINE [place] [facility] [facility] Aug 24, 2024 11:00 AM AMBULATORY - MEDICINE [place] Sep 01, 2024 11:00 AM AMBULATORY - NONE [place] [facility] [place] [facility] Sep 07, 2024 03:00 PM AMBULATORY - MEDICINE [place] [facility] [place] [facility] [...] Source Apr 04, 2024 ADVANCE DIRECTIVE [facility]O M [facility] Encounter Notes: All associated [...] REQUIRED Electronically Filed: 08/30/2024 by: ANIBAL SHEARER DECKHAND ENGINEER ANIBAL SHEARER [place] [facility]
--- OUTSIDE RECORDS SUMMARY | 2024-09-07 15:36 | XMS_ITS | Encounter Summary ---
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 Organization [place] Address [address] [place] [id number] Care Team Providers Care Shrimp Packer Name Role Phone ROWENA ROY Primary Care [...] Policy Segal [facility] ([facility]) MEDIC[facility] ADVANTAGE [place] INDIV IDUAL - [place] Sep 21, 2023 [id number] [phone] GENET DUGAN S PATIENT [facility] (WNR) MEDICARE ADVANTAGE [facility] ([facility]) Sep 21, 2023 [id number] [phone] DUGAN,GENET S PATIENT [place] MEDICAID H[place]KY PLAN May 22, 2022 MEDICAI D [id number] MARVIN DUGANI S PATIENT MEDICARE (WN) MEDICARE (M) PART B May 22, 2022 PART B [id number] [phone] DUGAN,GENET S PATIENT MEDICARE (WNR) MEDICARE (M) PART A Feb 19, 2009 PART A [id number] DUGAN,GENET S PATIENT MEDICARE PART D (WNR) MEDICARE (M) PART D Jul 22, 2022 PART D [id number] [phone] GENET DUGAN PATIENT [facility] (WNR) MEDICARE ADVANTAGE [facility] (WNR) Sep 21, 2022 [id number] [phone] GENET DUGAN PATIENT [facility] MCR (WNR) MEDICARE ADVANTAGE MCR (WNR) Sep 21, 2022 [id number] GENET DUGAN PATIENT Selected Encounter This section includes the information on record at [place] for the Encounter. Date/Time Encounter Type Encounter Description Reason Pro vider Source Aug 11, 2024 12:00 AM Outpatient Encounter COMMUNITY CARE CONSULT IHE Encounter Template Text not used by [place] Plan of Treatment: Future Appointments (+ 6 months) and Future Tests (+/- 45 days) The Plan of Treatment section includes future care activities for the patient from all [place] [facility]. This section includes future appointments and future orders which are active, pending or scheduled. Future Appointments This section includes appointments that were scheduled to occur 6 months from the date of the Encounter, up to a maximum of 20 appointments. The data comes from all [place] treatment [facility]. Appointment Date/Time Appointment Type Appointme nt Facility Name Aug 16, 2024 12:00 PM AMBULATORY - NONE [place] [facility] [place] [facility] Aug 22, 2024 11:20 AM AMBULATORY - MEDICINE [facility] [place] [place] [facility] Aug 24, 2024 11:00 AM AMBULATORY - MEDICINE [facility] Sep 01, 2024 11:00 AM AMBULATORY NONE [place] [facility] [place] [facility] Sep 07, 2024 03:00 PM AMBULATORY - MEDICINE [facility] [place] [facility] Dec 13, 2024 01:30 PM AMBULATORY - MEDICINE [facility] Jan 02, 2025 10:00 AM AM[facility]ULAT[facility] - [facility] Active, Pending, and Scheduled Orders This section includes a listing of several types of active, pending, and scheduled orders, including clinic medications orders, diagnostic test orders, procedure orders and consult orders; where the start date of the order is 45 days before the date of the Encounter or 45 days after the date of theEncounter. The data comes from all [place] treatment facilities. Test Date/Time Test Type Test Details Facility Name Aug 09, 2024 09:40 AM Consult Order COMMUNITY CARE-UROLOGY Cons Consumer Electronic Retail Specialist's Choice [facility] Lab Results: +/- 30 days [...] Range Comment Aug 24, 2024 11:28 AM [facility] CBC AND DIFF (AUTO) Specimen Type: BLOOD No comment entered. Ordering Provider: ROWENA ROY Report Released Date/Time: Aug 24, 2024 11:07 AM Reporting Lab: [facility] [address] [facility] [address] Performing Lab: [facility] [address] [facility] [address] WBC 8.84 10*3/uL 4.50-11.00 RBC 4.72 10*6/uL [...] 10*3/uL 0.00-0.00 Aug 24, 2024 11:28 AM [facility] MICROSCOPIC AUTOMATED, URINE Specimen Type: URINE Comment: If Glucose = >500 and Ketones are positive, please alert the Physician. Ordering Provider: MONICA VERDUZCO Report Released Date/Time: Aug 09, 2024 09:43 AM Reporting Lab: [address] [address] Performing Lab: [address] [address] UA WBC 0-5 /[HPF] 0-5 UA BACTERIA 1+ /[HPF] NoneObs UA TRIPLE PHOSPHATE CRYSTALS MODERATE /[HPF] Not Established UA RBC 6-10 /[HPF] H 0-3 Aug 24, 2024 11:28 AM [facility] URINALYSIS Specimen Type: URINE Comment: If Glucose = >500 and Ketones are positive, please alert the Physician. Ordering Provider: MONICA VERDUZCO Report Released Date/Time: Aug 09, 2024 09:43 AM Reporting Lab: [address] [address] Performing Lab: [address] [address] UA COLOR Light-Brown Yellow UA APPEARANCE Turbid Clear UA GLUCOSE Normal mg/dL Negative UA KETONES NEGATIVE mg/dL Negative UA BLOOD LARGE mg/dL Negative UA PROTEIN 100 mg/dL Negative UA NITRITE NEGATIVE mg/dL Negative UA BILIRUBIN NEGATIVE mg/dL Negative UA SPECIFIC GRAVITY 1.007 L 1.016-1.022 UA pH 8.5 5.0-9.0 UA UROBILINOGEN Normal mg/dL <2.0 UA LEUKOCYTE LARGE Negative Aug 08, 2024 10:59 AM [facility] VITAMIN D 25-OH (Therapy monitor) [...] For additional information, please refer to http://educatio n.PlayFirst.Framedia Advertising/faq/FAQ 199 (This link is being provided for informational/ educational purposes only.) This test was developed and its analytical performance characteristics have been determined by [facility] [place], [place]. It has not been cleared or approved by the U.S. Food and Drug Administration. This assay has been validated pursuant to the CLIA regulations and is used for clinical purposes. This test was developed and its analytical performance characteristics have been determined by [facility] [place], [place]. It has not been cleared or approved by the U.S. Food and Drug Administration. This assay has been validated pursuant to the CLIA regulations and is used for clinical purposes. Test Performed by [facility], [address] [place] [address] Dov Bahena M.D., Ph.D., Director of Laboratories , CLIA [id number] TEST PERFORMED AT: , Ordering Provider: MONICA VERDUZCO Report Released Date/Time: Aug 08, 2024 10:54 AM Reporting Lab: [facility] [address] [facility] [address] Performing Lab: [facility] [address] [address] VITAMIN D, 25-OH, TOTAL 51 ng/mL 30-100 VITAMIN D, 25-OH, D3 51 ng/mL VITAMIN D, 25-OH, D2 <4 ng/mL Aug 08, 2024 10:59 AM [facility] FOLATE (WROX) Specimen Type: SERUM No comment entered. Ordering Provider: MONICA VERDUZCO Report Released Date/Time: Aug 08, 2024 10:54 AM Reporting Lab: [facility] [place] [facility] [address] [facility] [address] Performing Lab: [place] [facility] [place] [facility] [address] [facility] [address] FOLATE (WROX) 4.07 ng/mL L >5.2 Aug 08, 2024 10:59 AM [facility]N [facility]ITAL[facility] MICROALBUMIN CREATININE RATIO PANEL Specimen Type: URINE No comment entered. Ordering Provider: MONICA VERDUZCO Report Released Date/Time: Aug 08, 2024 10:54 AM Reporting Lab: [facility] [place] [place] [facility] [address] [facility] [address] Performing Lab: [facility]N [facility] [address] [facility] [address] MICROALBUMIN/ CREATININE RATIO 354.2 mg/g H 0-29.9 MICROALBUMIN, QUANTITATIVE 103.3 mg/dL RR UNAVAIL CREATININE URINE 291.68 mg/dL Aug 08, 2024 10:59 AM [facility]ITALUSEMATTEAW[facility] VITAMIN B12 Specimen Type: SERUM No comment entered. Ordering Provider: MONICA VERDUZCO Report Released Date/Time: Aug 08, 2024 10:54 AM Reporting Lab: [facility]ITAL[facility] [address] [facility] [address] Performing Lab: [facility] COUNTYTRN [facility]ITALUSETS [facility] [address] [facility] [address] VITAMIN B12 1849 pg/mL H 200-900 Aug 08, 2024 10:59 AM [facility] HOSPITALN [facility]OSPITALUSEMATTEAW[facility] LIPID PANEL FASTING Specimen Type: SERUM No comment entered. Ordering Provider: MONICA VERDUZCO Report Released Date/Time: Aug 08, 2024 10:54 AM Reporting Lab: [facility] COUNTYTRN [facility]OSPITALUSETS [facility] [address] [facility] [address] Performing Lab: [facility] COUNTYTRN [facility]OS[facility]ITALUSETS [facility] [address] [facility] [address] CHOLESTEROL 178 mg/dL TRIGLYCERIDE 97 mg/dL 0-150 LDL calculated 97 mg/dL 0-129 CHOL/HDL 2.9 HDL CHOLESTEROL 62 mg/dL H 40-60 Aug 08, 2024 10:59 AM [facility] BASIC METABOLIC PANEL (fasting) Specimen Type: SERUM No comment entered. Ordering Provider: MONICA VERDUZCO Report Released Date/Time: Aug 08, 2024 10:54 AM Reporting Lab: [facility] [address] [facility] [address] Performing Lab: [facility] [address] [facility] [address] UREA NITROGEN 22 mg/dL 7-25 GLUCOSE 91 mg/dL 65-100 SODIUM 138 mmol/L 135-145 POTASSIUM 4.8 mmol/L 3.5-5.0 CHLORIDE 105 mmol/L 100-110 CO2 25 meq/L 20-30 CREATININE, Serum 0.99 mg/dL 0.50-1.40 eGFR(CKD-EPI 2020) 77 mL/min >60 Aug 08, 2024 10:59 AM [facility] LIVER FUNCTION Specimen Type: SERUM No comment entered. Ordering Provider: MONICA VERDUZCO Report Released Date/Time: Aug 08, 2024 10:54 AM Reporting Lab: [facility] [address] [facility] [address] Performing Lab: [address] [address] PROTEIN,TOTAL 6.7 g/dL 6.0-8.3 ALBUMIN 3.4 g/dL L 3.5-5.0 ALKALINE PHOSPHATASE 151 U/L H 40-150 AST 17 U/L 5-34 ALT 8 U/L BILIRUBIN, TOTAL 0.5 mg/dL 0.2-1.2 Aug 08, 2024 10:59 AM [facility] HEMOGLOBIN A1C PANEL Specimen Type: [...] 10:54 AM Reporting Lab: [facility] COUNTYTRN [facility]OSPITALUSETS [facility] [address] [facility] [address] Performing Lab: [facility] TRN [facility]ITALUSETS [facility] [address] [facility] [address] HEMOGLOBIN A1C 5.2 4.0-5.6 Aug 08, 2024 10:59 AM [facility]PITALN [facility] TSH Specimen Type: SERUM No comment entered. Ordering Provider: MONICA VERDUZCO Report Released Date/Time: Aug 08, 2024 10:54 AM Reporting Lab: [facility] COUNTYTRN [facility]OSPITALUSETS [facility] [address] [facility] [address] Performing Lab: [facility]ANRR[facility]AY HOSPITALN [facility] HOSPITALUSE[address] [address] TSH 1.93 u[IU]/mL 0.35-5.00 Aug 08, 2024 10:59 AM [facility] PSA Specimen Type: SERUM No comment entered. Ordering Provider: MONICA VERDUZCO Report Released Date/Time: Aug 08, 2024 10:54 AM Reporting Lab: [facility] COUNTYTRN [facility]OSPITALUSETS [facility] [address] [facility] [address] Performing Lab: [facility]ANRRED [facility]AY HOSPITALN [facility] HOSPITALUSETS [address] [address] PSA 30.59 ng/mL H 0.00-4.00 Aug 08, 2024 10:59 AM [facility] CBC AND DIFF (AUTO) Specimen Type: BLOOD No comment entered. Ordering Provider: MONICA VERDUZCO Report Released Date/Time: Aug 08, 2024 10:54 AM Reporting Lab: [facility] COUNTYTRN [facility]OSPITALUSETS [facility] [address] [facility] [address] Performing Lab: [facility] HOSPITALN [facility] HOSPITALUSETS [address] [address] WBC 7.81 10*3/uL 4.50-11.00 RBC 4.88 10*6/uL [...] AM CHEST CT W/O CONT: JAKE DUGAN [id number] -1945 M Exm Date: SEP 01, 2024@10:54 Req Phys: LUBA,NOLAN Pat Loc: CWM/SO/PACT 9 (Req'g Loc) Img Loc: NHM/CT Service: Unknown [facility] [place] [address] (Case [id number] COMPLETE) CT THORAX W/O CONT (CT Detailed) CPT:26663 Reason for Study: LDCT Clinical History: lung CA screen/surveillance as per protocol Report Status: Verified Date Reported: SEP 01, 2024 Date Verified: SEP 01, 2024 Toucher Up E-Sig:/ES/STARR MCDANIEL JR Report: Study: Noncontrast CT [...] Primary Interpreting Staff: STARR MCDANIEL JR, Radiologist (Toucher Up) /STARR HERNANDEZ JR [facility] Aug 16, 2024 02:[address] ABDOMEN AND PELVIS WITH CONTRAST: JAKE DUGAN [id number] -1945 M Exm Date: AUG 16, 2024@14:04 Req Phys: LUBA,NOLAN Pat Loc: CWM/SO/PACT 9 (Req'g Loc) Img Loc: [place]/CT Service: Unknown [facility] [place] [address] (Case [id number] COMPLETE) CT ABDOMEN AND PELVIS WITH CONTRA(CT Detailed) CPT:26713 Contrast Media : Non-ionic Iodinated Reason for Study: prostate CA Clinical History: Report Status: Verified Date Reported: AUG 16, 2024 Date Verified: AUG 16, 2024 Toucher Up E-Sig: Report: CT ABDOMEN AND PELVIS WITH CONTRAST HISTORY: prostate CA COMPARISON: 03/14/2024 TECHNIQUE: CT of the abdomen and pelvis with multiplanar reformats was performed at the local [place] facility. A contrast-enhanced series was obtained in the portal venous phase. 350 images were received by the [place] National Teleradiology Program (NTP) for interpretation. RADIATION [...] tumor infiltration. READING PHYSICIAN: Kwabena Perez M.D. -[id number] 08/16/2024 20:18 [facility] National Teleradiology Program [phone] (For Medical Practitioner Use Only) Attention Patients / Veterans: If you have questions or concerns about these test results, please contact your ordering provider or primary care team. Primary Diagnostic Code: POSSIBLE MALIGNANCY Primary Interpreting Staff: RADIOLOGY,OUTSIDE SERVICE, Staff Physician / RADIOLOGY,OUTSIDE SERVICE [facility] Pathology Reports: +/- 30 days [...] comes from all [place] treatment facilities. Date/Time Pathology Report Provider Source Aug 24, 2024 11:28 AM LR MICROBIOLOGY RE PORT: Reporting Lab: [facility] [CLIA# [id number]] [address] [place] [address] Accession [UID]: [id number] [[id number]] Received: Aug 24, 2024@11:28 Collection sample: URINE CLEAN CATCH Collection date: Aug 24, 2024 11:28 Site/Specimen: URINE Provider: NOLAN VERDUZCO Comment on specimen: POSITIVE CULTURE RESULTS MAY NOT REPRESENT CLINICAL INFECTION. CONSIDER NEED FOR ANTIBIOTICS IN THE CONTEXT OF UTI SYMPTOMS. Test(s) ordered: URINE CULTURE([facility]).......... completed: Aug 29, 2024 08:33 * BACTERIOLOGY FINAL REPORT => Aug 29, 2024 08:32 TECH CODE: [id number] CULTURE RESULTS: 1. KLEBSIELLA OXYTOCA/RAOULTELLA ORNITHINOLYTICA - [...] Laboratory: Klebsiella Oxytoca/raoultella Ornithinolytica Performed By: [facility] [CLIA# [id number]] [address] [place] [address] Pseudomonas Aeruginosa Performed By: [facility] [CLIA# [id number]] [address] [place] [address] Bact Report Remark #1 Performed By: [facility] [CLIA# [id number]] [address] [place] [address] Bact Report Remark #2 Performed By: [facility] [CLIA# [id number]] [address] [place] [address] ENRIQUETA FLORES [facility] Encounter Notes: All associated encounter notes This section contains the clinical notes associated to the Encounter. Date/Time Encounter Note(s) Provider Source Aug 11, 2024 12:00 AM NONVA CONSULT: LOCAL TITLE: COMMUNITY CARE-CONSULT RESULT NOTE STANDARD TITLE: NONVA CONSULT DATE OF NOTE: AUG 11, 2024 ENTRY DATE: SEP 07, 2024@14:41:17 AUTHOR: BRANDIE WEINER EXP COSIGNER: URGENCY: STATUS: COMPLETED VistA Imaging - Scanned Document SCANNED DOCUMENT SIGNATURE NOT REQUIRED Electronically Filed: 09/07/2024 by: BRANDIE WEINER COMMUNITY OUTREACH SPECIALIST BRANDIE WEINER [place] [facility]
== END 2024-09-07 16:25 | disposition home or self-care (01) ==
PROVIDERS: PCP Internal Medicine; Visit Provider Urology
DX: C61 Malignant neoplasm of prostate (principal); C77.5 Secondary and unspecified malignant neoplasm of intrapelvic lymph nodes; R33.9 Retention of urine, unspecified
CPT/HCPCS: 99204

== ENCOUNTER → 2024-09-07 14:58 | Outpatient (BNVA) | payer OTHER, SELFPAY | PROVIDERS: PCP Internal Medicine; Visit Provider Urology | DX: C61 Malignant neoplasm of prostate (principal); C77.5 Secondary and unspecified malignant neoplasm of intrapelvic lymph nodes; R33.9 Retention of urine, unspecified | CPT/HCPCS: 99202 ==

== ENCOUNTER 2024-09-29 11:22 | Outpatient (AMB) | payer OTHER, SELFPAY ==
--- NOTE | 2024-09-29 11:49 | MHC.OFFVIS ---
Intake Visit Reasons: 3W PET CT /cath change(PVU Notes) Intake Note: Patient is present for 3W PET-CT/CATH CHANGE Urology Medication:VITAMIN C,METHENAMINE HIPPURATE,TAMSULOSIN,FINASTERIDE Antibiotic Allergy:NONE Blood Thinner:NONE Transporter Radiology Required: No Allergies aspirin [ASPIRIN] Allergy (Unknown, Verified 09/29/24 11:51) UNKNOWN No Known Drug Allergies Allergy (Unknown, Verified 09/29/24 11:51) U HPI Comments Details: Leo is a pleasant [place] African-speaking male. He is a patient of Dr. Ramachandran. 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 Central African translation provided in office PET-CT is planned upcoming [facility] in 2 weeks' time Had UTI and catheter change to 20 [facility] at [facility] 2 weeks ago Is given instructions on how to use catheter cap and clip At that point will have discussion regarding channel laser TURP Has locally extensive prostate cancer Multiple urologic conditions Primary issue is urinary retention Failed multiple voiding trials through [facility] Urology No documentation of medications to help with bladder emptying Multiple prior urinary tract infections Bladder retention with recurrent UTI Multiple prior episodes of urinary retention. One sufficiently serious 2 to cause bilateral hydronephrosis Re-initiate finasteride Initiate alpha-joslyn Start methenamine vitamin-C for suppression Discussed GreenLight laser prostate Prostate cancer grade group 3, high volume disease initial PSA 84 Initial diagnosis 04/2022 Per PVU note 09/01 cores Lisa 4 + 3, [address] scan negative for adenopathy - follow-up subsequent question of pelvic lymph node No bone scan performed - incomplete staging Underwent [facility] until end 2022 [facility] Medical History (Updated 09/12/24 @ 09:31 by BRI Oleary) Chronic retention of urine Abnormal prostate specific antigen Dysuria Nodular prostate Gross hematuria Hypertension Surgical History (Updated 09/12/24 @ 09:31 by BRI Oleary) History of bladder surgery History of prostate biopsy Social History Alcohol intake: never Patient Tobacco Use Status: Former Tobacco user Current occupational status: unemployed Current occupation: right handed Review of Systems Const Denies chills and Denies fever(s) Card Reports no additional complaints and Denies syncope Resp Denies cough GI Denies abdominal pain and Denies heartburn Reports as per HPI and Denies change in libido Neuro Denies syncope Psych Denies change in libido Endo Denies change in libido Physical Exam Const General: cooperative, healthy appearing, comfortable and no acute distress Orientation/consciousness: patient oriented x3 HEENT Face and sinus: Yes normal facial exam Mouth: moist mucous membranes Neck Neck: Yes normal visual inspection, Yes full ROM and Yes trachea midline Chest Chest palpation & inspection: normal inspection of the chest Resp Effort & Inspection: normal respiratory effort, able to speak in complete sentences and no respiratory distress GI Inspection: Yes normal to inspection Back/Spine/Pelvis Cervical Spine: normal cervical lordosis Thoracic/Lumbar Spine: thoracic and lumbar spine normal to inspection Skin General skin exam: no rashes or lesions noted Neuro General: patient oriented x3, gait normal, tone normal and moves all extremities Extrem General: Yes normal to inspection and Yes capillary refill normal Assessment & Plan Assessment & Plan (1) Prostate cancer metastatic to intrapelvic lymph node: Code(s): C61 - Malignant neoplasm of prostate; C77.5 - Secondary and unspecified malignant neoplasm of intrapelvic lymph nodes Category: Medical (2) UTI (urinary tract infection) due to urinary indwelling catheter: Code(s): T83.511A - Infection and inflammatory reaction due to indwelling urethral catheter, initial encounter; N39.0 - Urinary tract infection, site not specified Category: Medical Plan [facility] in 2 weeks PET-CT prior Orders: Orders Testosterone, Total Today C61 - Malignant neoplasm of prostate, C77.5 - Secondary and unspecified malignant neoplasm of intrapelvic lymph nodes PSA,Total (Free>4and<10) Today C61 - Malignant neoplasm of prostate, C77.5 - Secondary and unspecified malignant neoplasm of intrapelvic lymph nodes Patient Instructions: Imaging studies, laboratory and physical exam results were discussed and reviewed in detail. No major barriers to patient understanding were identified. An opportunity to ask questions regarding the treatment plan was provided. All questions were answered. The patient expressed understanding and agreement with the above treatment plan. The patient is aware they should contact our office by phone for worsening of their current condition or the appearance of new urologic symptoms. Compliance is encouraged with any medications and followup testing that is ordered. It is a privilege to participate in the urologic care of your patient. If you have any questions or concerns regarding treatment for the above conditions, or other urologic issues, please do not hesitate to contact me. The office telephone contact is [phone]. This note is constructed using voice recognition software. While every effort has been made to ensure accuracy marine meteorologist errors may have been included. Yours sincerely, Dr Alexis Robertson MD, [facility] - Urology Providers of Expert, Compassionate Care for the Genitourinary System Coding Level of Care Code Est Pt Level 4 (88356) Diagnoses Prostate cancer metastatic to intrapelvic lymph node C61; C77.5 UTI (urinary tract infection) due to urinary indwelling catheter T83.511A; N39.0
--- OUTSIDE RECORDS SUMMARY | 2024-09-29 12:01 | XMS_ITS | Continuity of Care Document ---
Author Name [facility] Organization [facility] Care Team Providers Care Tappet Adjuster Name Role Phone [facility] Unavailable Unavailable Problems Combined list of problems from Department of Defense and Veterans Affairs facilities. It does not include entries that were removed or entered in error. Problem Status Onset Date Problem Type Date of Resolution Comments Source Atypical chest pain Active Condition February 12, 2016 Entered By: ALICIA MACHADO Comment: [facility] [phone] [id number] PA OV 12-05-15May 2015 Entered By: ALICIA [...] 11 16 Entered By: ALICIA MACHADO Comment: [facility] [phone] 1569Eusebio PA OV 12-05-15 [facility] Essential hypertension Active Condition February 12, 2016 Entered By: ALICIA MACHADO Comment: [facility] [phone] [id number] PA OV 12-05-15 [facility] [place] [facility] [place] [facility] Olecranon bursitis Active Condition [facility] Osteoarthritis (SNOMED CT 160218044) Active Condition Dec 07, 2017 Entered By: ALICIA MACHADO Comment: C/S worst at C6-C7 2017 Entered By: ALICIA MACHADO Comment: mod OA Interphalamgeal joint right thumb 09/06 [facility] Paraesthesia of lower extremity (SNOMED CT 275685230) Active Condition Apr 23, 2021 Entered By: [...] 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 [facility] Diagnosis: ICD-10-CM C61 Malignant neoplasm of prostate Active Diagnosis [facility] Diagnosis: ICD-10-CM Z46.0 Encounter for fit/adjst of spectacles and contact lenses Active Diagnosis [facility] [place] Diagnosis: ICD-10-CM N50.9 Disorder of male genital organs, unspecified Active Diagnosis [facility] Diagnosis: ICD-10-CM Z01.810 Encounter for preprocedural cardiovascular examination Active Diagnosis [facility] Diagnosis: ICD-10-CM Z23 Encounter for immunization Active Diagnosis [facility] Diagnosis: ICD-10-CM Z51.81 Encounter for therapeutic drug level monitoring Active Diagnosis [facility] Diagnosis: ICD-10-CM 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, unspecified Active Diagnosis [facility] Diagnosis: ICD-10-CM L82.1 Other seborrheic keratosis Active Diagnosis [facility] Diagnosis: ICD-10-CM Z13.89 Encounter for screening for other disorder [facility] Diagnosis: ICD-10-CM L02.818 Cutaneous abscess of other sites Active Diagnosis [facility] D Diagnosis: ICD-10-CM L02.212 Cutaneous abscess of back [any part, except buttock] Active Diagnosis [facility] Diagnosis: ICD-10-CM W06.XXXA Fall from bed, initial encounter Active Diagnosis [facility] Diagnosis: ICD-10-CM H40.013 Open angle with borderline findings, low risk, bilateral Active [facility] [place] [facility] Diagnosis: ICD-10-CM R97.20 Elevated prostate specific antigen [PSA] Active Diagnosis [facility] Diagnosis: ICD-10-CM I10 Essential (primary) hypertension Active Diagnosis [facility] Diagnosis: ICD-10-CM M54.59 Other low back pain Active Diagnosis [facility] Diagnosis: ICD-10-CM 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..] 6 HOURS NEEDED FOR PAIN ORAL 03/27/2024 [id number] Zoe MCLAIN 2023 100 [place] ASCORBIC ACID 500MG TAB TAKE TWO TABLETS BY MOUTH ONCE DAILY FOR VITAMIN/ NUTRITIO N SUPPLEME NT ORAL ACTIVE 09/09/2025 [id number] 4 MICHAEL IYER MD 2023 200 [facility] [place] CAPSAICIN 0.025% CREAM,TOP APPLY A MODERATE AMOUNT TOPICALL Y FOUR TIMES A DAY FOR LOCALIZE D PAIN (USE FOR AT LEAST 4 WEEKS FOR EFFECT) TOPICA L ACTIVE 12/22/2024 [id number] 4 LUBAMANSOOR MARTINEZ O 2023 60 [place] CARBOXYMETH YLCELLULOSE NA 0.5% SOLN,OPH INSTILL 1 DROP INTO EACH EYE FOUR TIMES DAILY NEEDED FOR DRY EYE OPHTHA LMIC DISCONT INUED BY PROVIDE R 12/23/2023 [id number] 4 MERHAR,NO AH B 2022 45 [facility] [place] CARBOXYMETH YLCELLULOSE NA 1% GEL,OPH APPLY 1 DROP INTO EACH EYE FOUR TIMES DAILY NEEDED FOR DRY EYE OPHTHA LMIC ACTIVE 12/31/2024 [id number] 4 MERHAR,NO AH B 2023 15 [facility] CEFUROXIME AXETIL 500MG TAB TAKE ONE TABLET BY MOUTH TWICE DAILY ORAL 03/23/2024 [id number] 4 PINKY HERRERA 2023 14 [place] CEPHALEXIN 500MG CAP TAKE ONE CAPSULE BY MOUTH THREE TIMES A DAY FOR INFECTIO N ORAL ACTIVE 10/02/2024 [id number] 4 KENNETH BANUELOS 2023 21 [facility] CHOLECALCIF ELMA 10MCG (400UNIT) TAB TAKE ONE TABLET BY MOUTH ONCE DAILY FOR VITAMIN SUPPLEME NTATION ORAL ACTIVE 11/22/2024 [id number] 4 Mahnaz ROY 2023 90 [place] CIPROFLOXAC IN HCL 500MG TAB TAKE ONE TABLET BY MOUTH TWICE DAILY FOR 7 DAYS FOR INFECTIO N ORAL 09/24/2024 [id number] 4 TAWANA BRANDON SOOR 2023 14 [place] CYANOCOBALA MIN 250MCG TAB TAKE ONE TABLET BY MOUTH ONCE DAILY ORAL ACTIVE 08/25/2025 [id number] 4 Mahnaz ROY A 2023 100 [place] CYCLOSPORIN E 0.05% (PF) EMULSION,OP H,0.4ML INSTILL 1 DROP INTO EACH EYE TWICE DAILY FOR DRY EYE THIS REPLACES XIIDRA OPHTHA LMIC ACTIVE 03/22/2025 [id number] 4 MERHAR,NO AH B 2023 60 [place] FINASTERIDE 5MG TAB TAKE ONE TABLET BY MOUTH ONCE DAILY FOR ENLARGED PROSTATE ORAL ACTIVE 04/01/2025 [id number] 4 LUBA, APOLINARI O 2023 90 [place] FLUTICASONE PROPIONATE 50MCG/SPRAY SOLN,NASAL, 16GM INSTILL 1 SPRAY INTO EACH NOSTRIL TWICE DAILY NASAL ACTIVE BRIJESH SELF 2015 [place] KETOTIFEN 0.025% SOLN,OPH INSTILL 1 DROP INTO EACH EYE TWICE DAILY (IF YOU WEAR CONTACT LENSES, WAIT 10 MINUTES BEFORE INSERTIN G LENSES) OPHTHA LMIC ACTIVE 12/04/2024 [id number] 4 MERHAR,NO AH B 2023 15 [facility] KETOTIFEN 0.025% SOLN,OPH INSTILL 1 DROP INTO EACH EYE TWICE DAILY (IF YOU WEAR CONTACT LENSES, WAIT 10 MINUTES BEFORE INSERTIN G LENSES) OPHTHA LMIC DISCONT INUED 11/01/2023 [id number] CHANTEL BRYANT 2022 15 [place] LIFITEGRAST 5% SOLN,OPH,0. 2ML INSTILL 1 DROP INTO EACH EYE TWICE DAILY OPHTHA LMIC DISCONT INUED BY MADELAINE R 12/31/2024 [id number] 4 MERHAR,NO AH B 2023 60 [facility] LIFITEGRAST 5% SOLN,OPH,0. 2ML INSTILL 1 DROP INTO EACH EYE TWICE DAILY OPHTHA LMIC DISCONT INUED 11/01/2023 [id number] 3 CHANTEL BRYANT UDAY 2022 60 [place] LISINOPRIL 20MG TAB TAKE ONE TABLET BY MOUTH ONCE DAILY TO CONTROL BLOOD PRESSURE ORAL ACTIVE 12/04/2024 [id number] 4 MANSOOR VERDUZCO O 2023 90 [place] METHENAMINE HIPPURATE 1GM TAB TAKE ONE TABLET BY MOUTH ONCE DAILY ORAL ACTIVE 09/09/2025 [id number] 4 MICHAEL IYER MD 2023 90 [facility] Allergies, Adverse Reactions, Alerts Combined list of allergies from Department of Defense and Veterans Affairs facilities. It does not include entries that were removed or entered in error. Substance Category Reaction Severity Reaction type Status Date Reported Comments Source HCTZ HYDROCHLOROT HIAZIDE Propensity to adverse reactions to drug (finding) Xerostomia active 8 [facility] Immunizations Combined list of available immunizations from the Department of Defense and Veterans Affairs facilities. Immunization Series Date Given Administered By Site Reaction Lot Number CVX Code Drug Physician Assistant Surgery Status Comments Source INFLUENZA, HIGH-DOSE, TRIVALENT, PF 2023 NIK BRANDON H LEFT DELTO ID [id number] 135 complet ed [place] HEP A, ADULT 2 2023 PAOLA FREDERICK LEFT DELTO ID [id number] 52 complet ed [place] COVID-19 (MODERNA), MRNA, LNP-S, PF, 50 MCG/0.5 ML (AGES 12+ YEARS) 2022 PAOLA FREDERICK LEFT DELTO ID [id number] 312 complet ed [place] HEP A, ADULT 1 2022 PAOLA FREDERICK RIGHT DELTO ID [id number] 52 complet ed [place] INFLUENZA, HIGH-DOSE, QUADRIVALENT 2022 PAOLA FREDERICK LEFT DELTO ID [id number] 197 complet ed [place] INFLUENZA, INJECTABLE, QUADRIVALENT, PRESERVATIVE FREE 2022 PAOLA FREDERICK LEFT DELTO ID [id number] 150 complet ed [place] COVID-19 (MODERNA), [...] DOSE 1 2020 207 complet ed MOD; [id number]; 1 [facility] [...] Aug 24, 2024 11:07 AM Reporting Lab: [facility] [address] [address] Performing Lab: [facility] [address] [address] [place] CBC AND DIFF (AUTO) ERYTHROCYT ES [#/VOLUME] IN BLOOD BY AUTOMATED COUNT 4.72 10*6/uL 4.23 - 5.66 08/24 Specimen Type: BLOOD No comment entered. Ordering Provider: DANISHA ROY A Report Released Date/Time: Aug 24, 2024 11:07 AM Reporting Lab: [facility] [address] [address] Performing Lab: [facility] [address] [place] CBC AND DIFF (AUTO) HEMOGLOBIN [MASS/VOLU ME] IN BLOOD 12.8 g/dL 12.8 - 17 08/24 Specimen Type: BLOOD No comment entered. Ordering Provider: DANISHA ROY A Report Released Date/Time: Aug 24, 2024 11:07 AM Reporting Lab: [facility] [address] [address] Performing Lab: [facility] [address] [place] CBC AND DIFF (AUTO) HEMATOCRIT [VOLUME FRACTION] OF BLOOD BY AUTOMATED COUNT 38.8 39.2 - 50.4 08/24 L Specimen Type: BLOOD No comment entered. Ordering Provider: DANISHA ROY A Report Released Date/Time: Aug 24, 2024 11:07 AM Reporting Lab: [facility] [address] [facility] [address] Performing Lab: [facility]N [facility] [address] [address] [place] CBC AND DIFF (AUTO) MCV [ENTITIC VOLUME] BY AUTOMATED COUNT 82.2 fL 82 - 99 08/24 Specimen Type: BLOOD No comment entered. Ordering Provider: DANISHA ROY A Report Released Date/Time: Aug 24, 2024 11:07 AM Reporting Lab: [facility] TRN [address] [address] Performing Lab: [facility] [address] [address] [place] CBC AND DIFF (AUTO) MCHC [MASS/VOLU ME] BY AUTOMATED COUNT 33.0 g/dL 30.8 - 35.1 08/24 Specimen Type: BLOOD No comment entered. Ordering Provider: DANISHA ROY A Report Released Date/Time: Aug 24, 2024 11:07 AM Reporting Lab: [facility] [address] [address] Performing Lab: [facility] [address] [place] CBC AND DIFF (AUTO) PLATELETS [#/VOLUME] IN BLOOD BY AUTOMATED COUNT 312 10*3/uL 140 - 360 08/24 Specimen Type: BLOOD No comment entered. Ordering Provider: DANISHA ROY A Report Released Date/Time: Aug 24, 2024 11:07 AM Reporting Lab: [facility] [address] [address] Performing Lab: [facility] [address] [address] [place] CBC AND DIFF (AUTO) ERYTHROCYT E DISTRIBUTI ON WIDTH [RATIO] BY AUTOMATED COUNT 12.3 12.0 - 16.0 08/24 Specimen Type: BLOOD No comment entered. Ordering Provider: DANISHA ROY A Report Released Date/Time: Aug 24, 2024 11:07 AM Reporting Lab: [facility] [place] [address] [address] Performing Lab: [facility] [place] [address] [address] [place] CBC AND DIFF (AUTO) MONOCYTES [#/VOLUME] IN BLOOD BY AUTOMATED COUNT 0.39 10*3/uL 0.30 - 1.10 08/24 Specimen Type: BLOOD No comment entered. Ordering Provider: DANISHA ROY A Report Released Date/Time: Aug 24, 2024 11:07 AM Reporting Lab: [facility] [place] [address] [address] Performing Lab: [facility] [address] [address] [place] CBC AND DIFF (AUTO) MCH [ENTITIC MASS] BY AUTOMATED COUNT 27.1 pg 26.2 - 32.6 08/24 Specimen Type: BLOOD No comment entered. Ordering Provider: DANISHA ROY A Report Released Date/Time: Aug 24, 2024 11:07 AM Reporting Lab: [facility] [place] [address] [address] Performing Lab: [facility] [place] [address] [address] [place] CBC AND DIFF (AUTO) NEUTROPHIL S/100 LEUKOCYTES IN BLOOD BY AUTOMATED COUNT 80.9 43.7 - 75.8 08/24 H Specimen Type: BLOOD No comment entered. Ordering Provider: DANISHA ROY A Report Released Date/Time: Aug 24, 2024 11:07 AM Reporting Lab: [facility] [place] [address] [address] Performing Lab: [facility] [address] [address] [place] CBC AND DIFF (AUTO) LYMPHOCYTE S/100 LEUKOCYTES IN BLOOD BY AUTOMATED COUNT 12.2 14.0 - 42.3 08/24 L Specimen Type: BLOOD No comment entered. Ordering Provider: DANISHA ROY A Report Released Date/Time: Aug 24, 2024 11:07 AM Reporting Lab: [facility] [place] [address] [address] Performing Lab: [facility] [address] [address] [place] CBC AND DIFF (AUTO) MONOCYTES/ 100 LEUKOCYTES IN BLOOD BY AUTOMATED COUNT 4.4 5.1 - 13.7 08/24 L Specimen Type: BLOOD No comment entered. Ordering Provider: DANISHA ROY A Report Released Date/Time: Aug 24, 2024 11:07 AM Reporting Lab: [facility] [address] [address] Performing Lab: [facility] [address] [address] [place] CBC AND DIFF (AUTO) EOSINOPHIL S/100 LEUKOCYTES IN BLOOD BY AUTOMATED COUNT 1.6 0.4 - 6.8 08/24 Specimen Type: BLOOD No comment entered. Ordering Provider: DANISHA ROY A Report Released Date/Time: Aug 24, 2024 11:07 AM Reporting Lab: [facility] [address] [address] Performing Lab: [facility] [address] [address] [place] CBC AND DIFF (AUTO) BASOPHILS/ 100 LEUKOCYTES IN BLOOD BY AUTOMATED COUNT 0.7 0.1 - 2.0 08/24 Specimen Type: BLOOD No comment entered. Ordering Provider: DANISHA ROY A Report Released Date/Time: Aug 24, 2024 11:07 AM Reporting Lab: [facility] [address] [address] Performing Lab: [facility] [address] [address] [place] CBC AND DIFF (AUTO) NEUTROPHIL S [#/VOLUME] IN BLOOD BY AUTOMATED COUNT 7.15 10*3/uL 2.20 - 7.60 08/24 Specimen Type: BLOOD No comment entered. Ordering Provider: DANISHA ROY A Report Released Date/Time: Aug 24, 2024 11:07 AM Reporting Lab: [facility] [address] [address] Performing Lab: [facility] [address] [address] [place] CBC AND DIFF (AUTO) LYMPHOCYTE S [#/VOLUME] IN BLOOD BY AUTOMATED COUNT 1.08 10*3/uL 1.00 - 3.20 08/24 Specimen Type: BLOOD No comment entered. Ordering Provider: DANISHA ROY A Report Released Date/Time: Aug 24, 2024 11:07 AM Reporting Lab: [facility] [address] [address] Performing Lab: [facility] [address] [address] [place] CBC AND DIFF (AUTO) EOSINOPHIL S [#/VOLUME] IN BLOOD BY AUTOMATED COUNT 0.14 10*3/uL 0.03 - 0.44 08/24 Specimen Type: BLOOD No comment entered. Ordering Provider: DANISHA ROY A Report Released Date/Time: Aug 24, 2024 11:07 AM Reporting Lab: [facility] [address] [address] Performing Lab: [facility] [address] [address] [place] CBC AND DIFF (AUTO) BASOPHILS [#/VOLUME] IN BLOOD BY AUTOMATED COUNT 0.06 10*3/uL 0.01 - 0.13 08/24 Specimen Type: BLOOD No comment entered. Ordering Provider: DANISHA ROY A Report Released Date/Time: Aug 24, 2024 11:07 AM Reporting Lab: [facility] [address] [address] Performing Lab: [facility] [address] [address] [place] CBC AND DIFF (AUTO) IMMATURE GRANULOCYT ES/100 LEUKOCYTES IN BLOOD BY AUTOMATED COUNT 0.2 0.0 - 0.7 08/24 Specimen Type: BLOOD No comment entered. Ordering Provider: DANISHA ROY A Report Released Date/Time: Aug 24, 2024 11:07 AM Reporting Lab: [address] [address] Performing Lab: [address] [address] [place] CBC AND DIFF (AUTO) IMMATURE GRANULOCYT ES [#/VOLUME] IN BLOOD 0.02 10*3/uL 0.00 - 0.06 08/24 Specimen Type: BLOOD No comment entered. Ordering Provider: DANISHA ROY A Report Released Date/Time: Aug 24, 2024 11:07 AM Reporting Lab: [address] [address] Performing Lab: [address] [address] [place] CBC AND DIFF (AUTO) NRBC % 0.0 0.0 - 0.0 08/24 Specimen Type: BLOOD No comment entered. Ordering Provider: DANISHA ROY A Report Released Date/Time: Aug 24, 2024 11:07 AM Reporting Lab: [address] [address] Performing Lab: [address] [address] [place] CBC AND DIFF (AUTO) NRBC, ABS 0.00 10*3/uL 0.00 - 0.00 08/24 Specimen Type: BLOOD No comment entered. Ordering Provider: DANISHA ROY A Report Released Date/Time: Aug 24, 2024 11:07 AM Reporting Lab: [address] [address] Performing Lab: [address] [address] [place] MICROSCOP IC AUTOMATED , URINE LEUKOCYTES [#/AREA] IN URINE SEDIMENT BY MICROSCOPY HIGH POWER FIELD 0-5/[HP F] 0 - 5 08/24 Specimen Type: URINE Comment: If Glucose = >500 and Ketones are positive, please alert the Physician. Ordering Provider: ZAKI VERDUZCO Report Released Date/Time: Aug 09, 2024 09:43 AM Reporting Lab: [facility] [address] [facility] [address] Performing Lab: [facility]PITALN [facility] [address] [facility]ITALUSE [facility] MICROSCOP IC AUTOMATED , URINE BACTERIA [#/AREA] IN URINE SEDIMENT BY MICROSCOPY HIGH POWER FIELD 1+/[HPF ] 08/24 Specimen Type: URINE Comment: If Glucose = >500 and Ketones are positive, please alert the Physician. Ordering Provider: ZAKI VERDUZCO Report Released Date/Time: Aug 09, 2024 09:43 AM Reporting Lab: [facility] [address] [address] Performing Lab: [facility]ITAL[facility]OSPITALN [facility]USE[facility] [address] [facility] [address] [facility]ITALUSE [facility] MICROSCOP IC AUTOMATED , URINE TRIPLE PHOSPHATE CRYSTALS [PRESENCE] IN URINE SEDIMENT BY LIGHT MICROSCOPY MODERAT E/[HPF] 08/24 Specimen Type: URINE Comment: If Glucose = >500 and Ketones are positive, please alert the Physician. Ordering Provider: ZAKI VERDUZCO Report Released Date/Time: Aug 09, 2024 09:43 AM Reporting Lab: [facility] [address] Performing Lab: [facility] [address] [facility]ITALUSE [facility] MICROSCOP IC AUTOMATED , URINE ERYTHROCYT ES [#/AREA] IN URINE SEDIMENT BY MICROSCOPY HIGH POWER FIELD 6-10/[H PF] 0 - 3 08/24 H Specimen Type: URINE Comment: If Glucose = >500 and Ketones are positive, please alert the Physician. Ordering Provider: ZAKI VERDUZCO Report Released Date/Time: Aug 09, 2024 09:43 AM Reporting Lab: [facility] [place] [facility] [address] [facility] [address] Performing Lab: [facility] [place] [facility] [address] [facility] [address] [facility] [facility] URINALYSI S COLOR OF URINE Light-B rown 08/24 Specimen Type: URINE Comment: If Glucose = >500 and Ketones are positive, please alert the Physician. Ordering Provider: ZAKI VERDUZCO Report Released Date/Time: Aug 09, 2024 09:43 AM Reporting Lab: [facility] [place] [facility] [address] [facility] [address] Performing Lab: [facility] [place] [address] [address] [facility] W[facility]N [place] [facility] URINALYSI S APPEARANCE OF URINE Turbid 08/24 Specimen Type: URINE Comment: If Glucose = >500 and Ketones are positive, please alert the Physician. Ordering Provider: ZAKI VERDUZCO Report Released Date/Time: Aug 09, 2024 09:43 AM Reporting Lab: [facility] [place] [address] [address] Performing Lab: [facility] [place] [facility] [address] [facility] [address] [facility] [place] [facility] URINALYSI S GLUCOSE [MASS/VOLU ME] IN URINE Normalm g/dL 08/24 Specimen Type: URINE Comment: If Glucose = >500 and Ketones are positive, please alert the Physician. Ordering Provider: ZAKI VERDUZCO Report Released Date/Time: Aug 09, 2024 09:43 AM Reporting Lab: [facility] [place] [facility] [address] [facility] [address] Performing Lab: [facility] [place] [facility] [address] [facility] [address] [facility] [place] [facility] URINALYSI S KETONES [MASS/VOLU ME] IN URINE BY TEST STRIP NEGATIV Emg/dL 08/24 Specimen Type: URINE Comment: If Glucose = >500 and Ketones are positive, please alert the Physician. Ordering Provider: ZAKI VERDUZCO Report Released Date/Time: Aug 09, 2024 09:43 AM Reporting Lab: [facility] HOSPITALTRN [place] [facility] [address] [facility] [address] Performing Lab: [facility]ITALR[facility]IL[facility] HOSPITALTRN [facility]PITALUSETS [address] [address] [facility] TRN [facility]USE TS [facility] URINALYSI S ERYTHROCYT ES [PRESENCE] IN URINE SEDIMENT BY LIGHT MICROSCOPY LARGEmg /dL 08/24 Specimen Type: URINE Comment: If Glucose = >500 and Ketones are positive, please alert the Physician. Ordering Provider: ZAKI VERDUZCO Report Released Date/Time: Aug 09, 2024 09:43 AM Reporting Lab: [facility]ITALUSE[address] [address] Performing Lab: [facility]ITALRREGIONAL REHABILITATION HOSPITALTRN VA HOSPITALUSETS [address] [address] [facility] H[facility]ITALRUAB HOSPITALN [facility]ENTERCHUSE [facility] URINALYSI S PROTEIN [MASS/VOLU ME] IN URINE BY TEST STRIP 100 mg/dL 08/24 Specimen Type: URINE Comment: If Glucose = >500 and Ketones are positive, please alert the Physician. Ordering Provider: ZAKI VERDUZCO Report Released Date/Time: Aug 09, 2024 09:43 AM Reporting Lab: [facility]ITALRREGIONAL REHABILITATION HOSPITALTRN VA HOSPITALUSETS [address] [address] Performing Lab: [facility]OS[facility]ITALRL TRN [facility] CENTERCHUSETS [facility] [address] [facility] [address] [facility]ITALRREGIONAL REHABILITATION HOSPITALTRN MASSCHUSE TS [facility] URINALYSI S NITRITE [PRESENCE] IN URINE NEGATIV Emg/dL 08/24 Specimen Type: URINE Comment: If Glucose = >500 and Ketones are positive, please alert the Physician. Ordering Provider: ZAKI VERDUZCO Report Released Date/Time: Aug 09, 2024 09:43 AM Reporting Lab: [facility]ITALRREGIONAL REHABILITATION HOSPITALTRN MASSUSETS [address] [address] Performing Lab: [facility] HOSPITALUSEEDGE[facility] [address] [facility] [address] [facility]PITALUSE [facility] HOSPITAL URINALYSI S BILIRUBIN. TOTAL [PRESENCE] IN URINE NEGATIV Emg/dL 08/24 Specimen Type: URINE Comment: If Glucose = >500 and Ketones are positive, please alert the Physician. Ordering Provider: ZAKI VERDUZCO Report Released Date/Time: Aug 09, 2024 09:43 AM Reporting Lab: [facility]ITALUSE[address] [address] Performing Lab: [address] [address] [facility] URINALYSI S SPECIFIC GRAVITY OF URINE BY REFRACTOME TRY 1.007 1.016 - 1.022 08/24 L Specimen Type: URINE Comment: If Glucose = >500 and Ketones are positive, please alert the Physician. Ordering Provider: ZAKI VERDUZCO Report Released Date/Time: Aug 09, 2024 09:43 AM Reporting Lab: [address] [address] Performing Lab: [address] [address] [facility] URINALYSI S PH OF URINE BY TEST STRIP 8.5 5.0 - 9.0 08/24 Specimen Type: URINE Comment: If Glucose = >500 and Ketones are positive, please alert the Physician. Ordering Provider: ZAKI VERDUZCO Report Released Date/Time: Aug 09, 2024 09:43 AM Reporting Lab: [facility] [address] Performing Lab: [address] [address] [facility] URINALYSI S UROBILINOG EN [MASS/VOLU ME] IN URINE BY TEST STRIP Normalm g/dL <2.0 - 2.0 08/24 Specimen Type: URINE Comment: If Glucose = >500 and Ketones are positive, please alert the Physician. Ordering Provider: ZAKI VERDUZCO Report Released Date/Time: Aug 09, 2024 09:43 AM Reporting Lab: [facility] [address] [facility] [address] Performing Lab: [address] [address] [facility] URINALYSI S LEUKOCYTE ESTERASE [PRESENCE] IN URINE BY TEST STRIP LARGE 08/24 Specimen Type: URINE Comment: If Glucose = >500 and Ketones are positive, please alert the Physician. Ordering Provider: ZAKI VERDUZCO Report Released Date/Time: Aug 09, 2024 09:43 AM Reporting Lab: [facility] [address] [facility] [address] Performing Lab: [address] [address] [facility] VITAMIN D 25-OH (Therapy monitor) 25-HYDROXY [...] additional information , please refer to [email or web address] [email or web address] .com/faq/FA Q199 (This link is being provided for information al/ educational purposes only.) This test was developed and its analytical performance characteris tics have been determined by [employer] [place], [place]. It has not been cleared or approved by the U.S. Food and Drug Administrat ion. This assay has been validated pursuant to the CLIA regulations and is used for clinical purposes. This test was developed and its analytical performance characteris tics have been determined by [place] It has not been cleared or approved by the U.S. Food and Drug Administrat ion. This assay has been validated pursuant to the CLIA regulations and is used for clinical purposes. Test Performed by [facility], [place], [address] [place], [place] Dov Bahena M.D., Ph.D., Director of Laboratorie s , CLIA [id number] TEST PERFORMED AT: , Ordering Provider: ZAKI VERDUZCO Report Released Date/Time: Aug 08, 2024 10:54 AM Reporting Lab: [facility] [address] [facility] [address] Performing Lab: [facility] [address] [address] [facility] VITAMIN D 25-OH (Therapy monitor) 25-HYDROXY [...] additional information , please refer to [email or web address] [email or web address] [email or web address]/faq/FA Q199 (This link is being provided for information al/ educational purposes only.) This test was developed and its analytical performance characteris tics have been determined by [employer] [place]. It has not been cleared or approved by the U.S. Food and Drug Administrat ion. This assay has been validated pursuant to the CLIA regulations and is used for clinical purposes. This test was developed and its analytical performance characteris tics have been determined by [employer] [place]. It has not been cleared or approved by the U.S. Food and Drug Administrat ion. This assay has been validated pursuant to the CLIA regulations and is used for clinical purposes. Test Performed by [facility], [place], [address] [place], [place] Dov Bahena M.D., Ph.D., Director of Laboratorie s , CLIA [id number] TEST PERFORMED AT: , Ordering Provider: ZAKI VERDUZCO Report Released Date/Time: Aug 08, 2024 10:54 AM Reporting Lab: [facility] [address] [facility] [address] Performing Lab: [facility] [address] [address] [facility] VITAMIN D 25-OH (Therapy monitor) CALCIFEROL (VIT [...] additional information , please refer to [email or web address] [email or web address] [email or web address]/faq/FA Q199 (This link is being provided for information al/ educational purposes only.) This test was developed and its analytical performance characteris tics have been determined by [employer] [place]. It has not been cleared or approved by the U.S. Food and Drug Administrat [employer]. This assay has been validated pursuant to the CLIA regulations and is used for clinical purposes. This test was developed and its analytical performance characteris tics have been determined by [employer] [place]. It has not been cleared or approved by the U.S. Food and Drug Administrat ion. This assay has been validated pursuant to the CLIA regulations and is used for clinical purposes. Test Performed by [facility], [facility], [address] [place], [place] Dov Bahena M.D., Ph.D., Director of Laboratorie s , CLIA [id number] TEST PERFORMED AT: , Ordering Provider: ZAKI VERDUZCO Report Released Date/Time: Aug 08, 2024 10:54 AM Reporting Lab: [facility] [place] [address] [address] Performing Lab: [facility]ITALUSE[facility] [address] [address] [facility] [place] [facility] FOLATE (WROX) FOLATE [MASS/VOLU ME] IN SERUM OR PLASMA 4.07 ng/mL 5.2 08/08 L Specimen Type: SERUM No comment entered. Ordering Provider: ZAKI VERDUZCO Report Released Date/Time: Aug 08, 2024 10:54 AM Reporting Lab: [facility] [place] [address] [address] Performing Lab: [facility] [facility] [address] [facility] [address] [facility] [place] [facility] MICROALBU MIN CREATININ E RATIO PANEL MICROALBUM IN/CREATIN INE [MASS RATIO] IN URINE 354.2 mg/g 0 - 29.9 08/08 H Specimen Type: URINE No comment entered. Ordering Provider: ZAKI VERDUZCO Report Released Date/Time: Aug 08, 2024 10:54 AM Reporting Lab: [facility] [place] [address] [address] Performing Lab: [facility]ITALUSE[address] [address] [facility] [place] [facility] MICROALBU MIN CREATININ E RATIO PANEL MICROALBUM IN [MASS/VOLU ME] IN URINE 103.3 mg/dL 08/08 Specimen Type: URINE No comment entered. Ordering Provider: ZAKI VERDUZCO Report Released Date/Time: Aug 08, 2024 10:54 AM Reporting Lab: [facility] [place] [facility] [address] [facility] [address] Performing Lab: [facility] [place] [facility] [address] [facility] [address] [facility] [place] [facility] MICROALBU MIN CREATININ E RATIO PANEL CREATININE [MASS/VOLU ME] IN URINE 291.68 mg/dL 08/08 Specimen Type: URINE No comment entered. Ordering Provider: ZAKI VERDUZCO Report Released Date/Time: Aug 08, 2024 10:54 AM Reporting Lab: [facility] [place] [address] [address] Performing Lab: [facility] [place] [place] [address] [address] [place] [facility] [place] [facility] VITAMIN B12 COBALAMIN (VITAMIN B12) [MASS/VOLU ME] IN SERUM OR PLASMA 1849 pg/mL 200 - 900 08/08 H Specimen Type: SERUM No comment entered. Ordering Provider: ZAKI VERDUZCO Report Released Date/Time: Aug 08, 2024 10:54 AM Reporting Lab: [facility] [place] [facility] [address] [facility] [address] Performing Lab: [facility] [place] [place] [address] [address] [facility] [place] [place] [facility] BASIC METABOLIC PANEL (fasting) UREA NITROGEN [MASS/VOLU ME] IN SERUM OR PLASMA 22 mg/dL 7 - 25 08/08 Specimen Type: SERUM No comment entered. Ordering Provider: ZAKI VERDUZCO Report Released Date/Time: Aug 08, 2024 10:54 AM Reporting Lab: [facility] [place] [address] [place] [address] Performing Lab: [facility] [place] [facility] [address] [facility] [address] [facility] [place] [facility] BASIC METABOLIC PANEL (fasting) GLUCOSE [MASS/VOLU ME] IN SERUM OR PLASMA 91 mg/dL 65 - 100 08/08 Specimen Type: SERUM No comment entered. Ordering Provider: ZAKI VERDUZCO Report Released Date/Time: Aug 08, 2024 10:54 AM Reporting Lab: [facility] [place] [place] [facility] [address] [facility] [address] Performing Lab: [facility] [address] [facility] [address] [facility]RUAB [facility]OSPITALN [facility] HOSPITALUSE [facility] BASIC METABOLIC PANEL (fasting) SODIUM [MOLES/VOL UME] IN SERUM OR PLASMA 138 mmol/L 135 - 145 08/08 Specimen Type: SERUM No comment entered. Ordering Provider: ZAKI VERDUZCO Report Released Date/Time: Aug 08, 2024 10:54 AM Reporting Lab: [facility] TRN [facility] [address] [facility] [address] Performing Lab: [facility] W[facility]N [facility] [address] [facility] [address] [facility]AB HOSPITALN [facility] BASIC METABOLIC PANEL (fasting) POTASSIUM [MOLES/VOL UME] IN SERUM OR PLASMA 4.8 mmol/L 3.5 - 5.0 08/08 Specimen Type: SERUM No comment entered. Ordering Provider: ZAKI VERDUZCO Report Released Date/Time: Aug 08, 2024 10:54 AM Reporting Lab: [facility] [place] [facility] [address] [facility] [address] Performing Lab: [facility] W[facility]N [facility]USE[facility] [address] [facility] [address] [facility]PITALN [facility] HOSPITALUSE [facility] BASIC METABOLIC PANEL (fasting) CHLORIDE [MOLES/VOL UME] IN SERUM OR PLASMA 105 mmol/L 100 - 110 08/08 Specimen Type: SERUM No comment entered. Ordering Provider: ZAKI VERDUZCO Report Released Date/Time: Aug 08, 2024 10:54 AM Reporting Lab: [facility] [place] [facility] [address] [facility] [address] Performing Lab: [facility] [place] [facility] [address] [facility] [address] [facility] [place] [facility] BASIC METABOLIC PANEL (fasting) CARBON DIOXIDE, TOTAL [MOLES/VOL UME] IN SERUM OR PLASMA 25 meq/L 20 - 30 08/08 Specimen Type: SERUM No comment entered. Ordering Provider: ZAKI VERDUZCO Report Released Date/Time: Aug 08, 2024 10:54 AM Reporting Lab: [facility] [place] [facility] [address] [facility] [address] Performing Lab: [facility] [place] [place] [facility] [address] [facility] [address] [place] [facility] [place] [facility] BASIC METABOLIC PANEL (fasting) CREATININE [MASS/VOLU ME] IN SERUM OR PLASMA 0.99 mg/dL 0.50 - 1.40 08/08 Specimen Type: SERUM No comment entered. Ordering Provider: ZAKI VERDUZCO Report Released Date/Time: Aug 08, 2024 10:54 AM Reporting Lab: [facility] [place] [facility] [address] [facility] [address] Performing Lab: [facility] [place] [facility] [address] [facility] [address] [facility] [place] [facility] BASIC METABOLIC PANEL (fasting) GLOMERULAR FILTRATION RATE/1.73 SQ M.PREDICTE D [VOLUME RATE/AREA] IN SERUM, PLASMA OR BLOOD BY CREATININE -BASED FORMULA (CKD-EPI 2020) 77 mL/min 60 08/08 Specimen Type: SERUM No comment entered. Ordering Provider: ZAKI VERDUZCO Report Released Date/Time: Aug 08, 2024 10:54 AM Reporting Lab: [facility] [place] [facility] [address] [facility] [address] Performing Lab: [facility] [place] [facility] [address] [facility] [address] [facility] [place] [facility] HEMOGLOBI N A1C PANEL HEMOGLOBIN A1C/HEMOGL OBIN.TOTAL [...] 08, 2024 10:54 AM Reporting Lab: [address] [address] Performing Lab: [address] [address] [facility] LIPID PANEL FASTING CHOLESTERO L [MASS/VOLU ME] IN SERUM OR PLASMA 178 mg/dL 08/08 Specimen Type: SERUM No comment entered. Ordering Provider: ZAKI VERDUZCO Report Released Date/Time: Aug 08, 2024 10:54 AM Reporting Lab: [facility] [address] [facility] [address] Performing Lab: [address] [address] [facility] LIPID PANEL FASTING TRIGLYCERI DE [MASS/VOLU ME] IN SERUM OR PLASMA 97 mg/dL 0 - 150 08/08 Specimen Type: SERUM No comment entered. Ordering Provider: ZAKI VERDUZCO Report Released Date/Time: Aug 08, 2024 10:54 AM Reporting Lab: [facility] [address] [facility] [address] Performing Lab: [address] [address] [facility] LIPID PANEL FASTING CHOLESTERO L IN LDL [MASS/VOLU ME] IN SERUM OR PLASMA BY CALCULATIO N 97 mg/dL 0 - 129 08/08 Specimen Type: SERUM No comment entered. Ordering Provider: ZAKI VERDUZCO Report Released Date/Time: Aug 08, 2024 10:54 AM Reporting Lab: [facility] HOSPITALTRN [facility] HOSPITALUSETS [facility] [address] [facility] [address] Performing Lab: [facility]ITALRUAB HOSPITALN [facility]USE[facility] [address] [facility] [address] [facility] TRN VA HOSPITALUSE [facility] LIPID PANEL FASTING CHOLESTERO L.TOTAL/CH OLESTEROL IN HDL [MASS RATIO] IN SERUM OR PLASMA 2.9 08/08 Specimen Type: SERUM No comment entered. Ordering Provider: ZAKI VERDUZCO Report Released Date/Time: Aug 08, 2024 10:54 AM Reporting Lab: [facility]ITALRUAB HOSPITALN [facility]ITALUSE[facility] [address] [facility] [address] Performing Lab: [facility]ITALRL TRN [facility]ITALUSE[facility] [address] [facility] [address] [facility]ITALN VA HOSPITALUSE [facility] LIPID PANEL FASTING CHOLESTERO L IN HDL [MASS/VOLU ME] IN SERUM OR PLASMA 62 mg/dL 40 - 60 08/08 H Specimen Type: SERUM No comment entered. Ordering Provider: ZAKI VERDUZCO Report Released Date/Time: Aug 08, 2024 10:54 AM Reporting Lab: [facility]ITALRREGIONAL REHABILITATION HOSPITALTRN [facility]ITALUSE[facility] [address] [facility] [address] Performing Lab: [facility]ITALRL TRN [facility]USE[facility] [address] [facility] [address] [facility]ITALRUAB HOSPITALN [facility] HOSPITALUSE [facility] Vital Signs Combined list of inpatient and outpatient Vital Signs from Department of Defense and Veterans Affairs, ranging from 12 months to all on record, depending upon the facility. Vital Sign Value Date Comments Source SYSTOLIC BLOOD PRESSURE 154 08/24/20 24 12:28:43 [facility] DIASTOLIC BLOOD PRESSURE 78 024 12:28:43 [facility] PULSE OXIMETRY 97 08/24/2024 12:28:43 [facility] PAIN 0 08/24/2024 12:28:43 [facility] HEIGHT 70 08/24/2024 12:28:43 [facility] PULSE 68 08/24/2024 12:28:43 [facility] RESPIRATION 20 08/24/2024 12:28:43 [facility] SYSTOLIC BLOOD PRESSURE 155 08/09/20 24 09:58:25 [facility] [place] [facility] DIASTOLIC BLOOD PRESSURE 78 09:58:25 [facility] [place] [facility] PULSE OXIMETRY 97 08/09/2024 09:58:25 [facility] [place] [facility] SYSTOLIC BLOOD PRESSURE 147 06/21/20 09:42:36 [facility] [place] [facility] DIASTOLIC BLOOD PRESSURE 73 09:42:36 [facility] [place] [facility] PULSE [...] ADM Date DC Date Status Disposition Source LILIBETH[place]ola LD OFF/OP EST JANUARY X REQ PHY/QHP [id number] Diagnos is: ICD-10- CM M54.50 Low back pain, unspeci fied
JOSE REDDY 04/20 [facility] [place] [facility] [place] [facility] [id number] 04/20 [facility] [place] [facility] [place] [facility] En[facility] [id number] 04/20 [facility] [place] [facility] [place] [facility] En[facility] [id number] 04/21 [facility] [place] [facility] [place] [facility] En[facility] [id number] 04/22 [facility] [place] [facility] [place] [facility] En[facility] [id number] 05/08 [facility] [place] [facility] [place] [facility] En[facility] [id number] 05/20 [facility] [place] [facility] [facility] [place] Encounter [id number] ARSH CORBETT ON 05/20 [facility] [place] [facility] [facility] [place] En[facility] [id number] 05/22 [facility] [place] [facility] [facility] [place] En[facility] [id number] 05/28 [facility] [place] [facility] OFF/OP EST MAY X REQ PHY/QHP [id number] Diagnos is: ICD-10- CM R20.2 Paresth esia of skin
LUBA,A POLINARIO 06/02 [place] [facility] En[facility] [id number] 06/03 [facility] [place] [facility] [place] [facility] En[facility] [id number] 06/04 [facility] [place] [facility] [place] [facility] En[facility] [id number] 06/04 [facility] [place] [facility] [place] [facility] OFF/OP EST MAY X REQ PHY/QHP [id number] Diagnos is: ICD-10- CM R68.89 Other general symptom s and signs<b r/> BARRY,ER IC K 06/05 [facility] [place] [facility] [place] En[facility] [id number] 06/05 [facility] [place] [facility] En[facility] [id number] 06/08 [place] [facility] [place] [facility] Outpatient Encounter [id number] 06/10 [facility] [place] [facility] OFFICE O/P EST MOD 30-39 MIN [id number] Diagnos is: ICD-10- CM Z00.01 Encount er for general adult medical exam w abnorma l finding s
LUBA,A POLINARIO 06[place]23 [place] [facility] [place] [facility] Outpatient Encounter [id number] 06/23 [facility] [place] [facility] SELF-HELP/ PEER SVC PER 15MIN [id number] Diagnos is: ICD-10- CM Z59.00 Homeles sness unspeci fied
CAPEELISEO RAGLAND NTHIA 06/25 [facility] OFFICE O/P EST LOW 20-29 MIN [id number] Diagnos is: ICD-10- CM D52.8 Other folate deficie ncy anemias
LUBA,A POLINARIO 06/30 [facility] OFFICE O/P NEW MOD 45-59 MIN [id number] Diagnos is: ICD-10- CM C61 Maligna nt neoplas m of prostat e
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
LUBA,A POLINARIO 07/06 [facility] [place] [facility] [place] [facility] Outpatient Encounter [id number] 07/14 [facility] [place] [facility] [place] [facility] Outpatient Encounter [id number] 07/16 [facility] [place] [facility] [place] [facility] OFFICE O/P NEW MOD 45-59 MIN [id number] Diagnos is: ICD-10- CM M54.59 Other low back pain
NICANOR MARIA RA 07/16 [facility] [place] En[facility] [id number] 07/17 [facility] [place] En[facility] [id number] 07/20 [facility] [place] [facility] [place] En[facility] [id number] 07/21 [facility] [place] [facility] En[facility] [id number] 08/10 [facility] [place] En[facility] [id number] 08/14 [facility] [place] En[facility] [id number] 08/24 [facility] [place] En[facility] [id number] 09/16 [facility] [place] [place] OFF[place] O/P EST LOW 20-29 MIN [id number] Diagnos is: ICD-10- CM I10 Essenti al (primar y) hyperte nsion<b r/> LUBALou MARTINEZ 09/18 [place] [facility] En[facility] [id number] 10/06 [facility] [place] En[facility] [id number] 10/06 [facility] [place] En[facility] [id number] 10/06 [facility] [place] En[facility] [id number] 10/06 [facility] [place] [place] Outpatient Encounter [id number] LUBAA POLINARIO 10/06 [place] [facility] Encounter [id number] 10/08 [facility] [id number] 10/14 [facility] [id number] 10/26 [facility] [id number] 12/03 [facility] En[facility] [id number] 12/03 [facility] [place] OFFICE O/P EST MOD 30 MIN [id number] Diagnos is: ICD-10- CM R97.20 Elevate d prostat e specifi c antigen [PSA]<b r/> LUBA,Lou POLINARIO 12/21 [place] [facility] COMPRE OPH EXAM EST PT 1/> [id number] Diagnos is: ICD-10- CM H40.013 Open angle with borderl ine finding s, low risk, bilater al
MERHAR,ALANA H B 12/30 [facility] CMPTR OPHTH IMG OPTIC NERVE [id number] Diagnos is: ICD-10- CM H40.013 Open angle with borderl ine finding s, low risk, bilater al
ALANA HOLLOWAY H B 12/30 [facility] [place] OFF[facility] O/P EST MOD 30 MIN [id number] Diagnos is: ICD-10- CM W06.XXX A Fall from bed, initial encount er
LUBA,A POLINARIO 01/21 [place] [facility] Encounter [id number] 01/24 [facility] [id number] 01/27 [facility] [id number] 02/21 [facility] Encounter [id number] 02/25 [facility] [place] OFF/OP EST JANUARY X REQ PHY/QHP [id number] Diagnos is: ICD-10- CM L02.212 [place] us abscess of back [any part, except buttock ]
PAULINE-LATISHA NEGRO 02/25 [place] [facility] En[facility] [id number] 02/25 [facility] [place] OFFICE O/P EST MOD 30 MIN [id number] Diagnos is: ICD-10- CM L02.818 [place] us abscess of other sites<b r/> RAYNEROWDY VAZQUEZA C 02/25 [facility] Outpatient Encounter [id number] 03/02 [facility] [place] UNLISTED SPEC DERM SVC/PX [id number] Diagnos is: ICD-10- CM Z13.89 Encount er for screeni ng for other disorde r
Sree POSADAOWACAMDEN 03/10 [facility] Outpatient Encounter [id number] Diagnos is: ICD-10- CM L82.1 Other seborrh eic keratos is
ADRIANNE MELISSA 03/14 [facility] Outpatient Encounter [id number] 03/14 [facility] Outpatient Encounter [id number] 1.03/14 [facility] Outpatient Encounter [id number] 1.03/18 [facility] [place] OFF[place] O/P EST MOD 30 MIN [id number] Diagnos is: ICD-10- CM N13.9 Obstruc tive and reflux uropath y, unspeci fied
LUBA,A POLIYASMINIO 03/21 [facility] [place] [facility] Outpatient Encounter [id number] 03/21 [facility] [place] QNHP OL DIG ASSMT&MGMT 5-10 [id number] Diagnos is: ICD-10- CM Z51.81 Encount er for therape utic drug level monitor ing<br/ > CHAY DAVIS [place] [facility] Outpatient Encounter [id number] 04/04 [facility] En[facility] [id number] 04/07 [facility] Outpatient Encounter [id number] 04/19 [facility] O/P EST MOD 30 MIN [id number] Diagnos is: ICD-10- CM 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
LUBA,A TOYINIO [place] [facility] Outpatient Encounter [id number] 1.05/20 [facility] LD OFF/OP EST JANUARY X REQ PHY/QHP [id number] Diagnos is: ICD-10- CM Z23 Encount er for immuniz ation<b r/> ROMA,L BERTIN H [place] [facility] Outpatient Encounter [id number] 06/01 [facility] En[facility] [id number] 06/01 [facility] Encounter [id number] 06/03 [facility] Encounter [id number] 06/07 [facility] Encounter [id number] 06/07 [facility] Encounter [id number] 06/13 [facility] Encounter [id number] 06/16 [facility] OFFICE O/P EST MOD 30 MIN [id number] Diagnos is: ICD-10- CM Z01.810 Encount er for preproc edural cardiov ascular examina tion
Lou VERDUZCO 06/21 [facility] Encounter [id number] 06/23 [facility] Encounter [id number] 06/24 [facility] Encounter [id number] 06/29 [facility] Encounter [id number] 06/30 [facility] Encounter [id number] 1.07/06 [facility] Encounter [id number] 07/07 [facility] Encounter [id number]/07 [facility] Encounter [id number] 07/18 [facility] Encounter [id number] 07/19 [facility] Encounter [id number] 07/20 [facility] Encounter [id number] 07/26 [facility] Encounter [id number] 07/29 [facility] Encounter [id number] 08/04 [facility] [place] O/P EST MOD 30 MIN [id number] 1BY. 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
LUBA,A POLINARIO 08/17 [place] [facility] FIT SPECTACLES BIFOCAL [id number] Diagnos is: ICD-10- CM Z46.0 Encount er for fit/adj st of spectac les and contact lenses< br/> JEEVAN UMANA 08/22 [facility] En[facility] [id number] 1.08/22 [facility] Outpatient Encounter [id number] 1.08/24 [facility] [place] OFF[place] O/P EST HI 40 MIN [id number] Diagnos is: ICD-10- CM 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
ROY,DA VID A 08/24 [place] [facility] Outpatient Encounter [id number] 08/25 [facility] Outpatient Encounter [id number] 08/29 [facility] [place] OFF[place] O/P EST LOW 20 MIN [id number] Diagnos is: ICD-10- CM C61 Maligna nt neoplas m of prostat e
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
LUBA,Lou POLINARIO 09/06 [facility] [facility] Outpatient Encounter [id number] 09/09 [facility] Outpatient Encounter [id number] 09/15 [facility] Outpatient Encounter [id number] 09/15 [facility] Outpatient Encounter [id number] 09/15 [facility] Outpatient Encounter [id number] 09/15 [facility] [place] Social History Combined list of available smoking, tobacco, and other social history from Department of Defense and Veterans Affairs facilities. Social History Type Response Date Comment Sourc e Tobacco smoking status [facility] VA-TOBACCO NEVER USED 05/31/2024 [facility] D [facility] of [facility] OR [facility]2023 [facility] History of tobacco use VA-TOBACCO FORMER USER 05/01/2022 [facility] History of tobacco use [place]-TOBACCO QUIT 1 5 YRS OR MORE 04/15/2021 [facility] History of tobacco use VA-TOBACCO FORMER USER 10/20/2018 [facility] History of tobacco use QUIT TOBACCO USE > 7 YEARS AGO 07/03/2017 quit 25yrs ago [facility] History of tobacco use LIFETIME NON-TOBA [employer] USER 02/13/2016 [facility] Plan of Care List of future care activities from Department of [facility] Affairs facilities. Additional future care activities may be listed in the Assessment and Plan section. Date/Time Care Activity [facility] - MEDICINE AM[facility]ULATORY - MEDICI [facility] 01/02/2025 AMBULATORY - MEDICINE AMBULATORY - MEDICI [facility] Advance Directives List of completed, amended, or rescinded Advance Directives on record at Department of Veterans Affairs facilities. An actual copy of the Directive is not included. Date Advance Directive Provider Source 04/04/2024 ADVANCE DIRECTIVE [facility]
--- OUTSIDE RECORDS SUMMARY | 2024-09-29 12:01 | XMS_ITS ---
Author Name [facility] [place] Address [address] [place] [address] Care Team Providers Care Needle Loom Setter Name Role Phone ROWENA ROY Primary Care [...] Relationship to Policy Segal [facility]) MEDICARE ADVANTAGE [place] INDIV IDUAL - [place] Sep 21, 2023 [id number] [phone] GENET [facility]UGAN S [facility] MEDICARE ADVANTAGE [facility] ([facility]) Sep 21, 2023 [id number] [phone] MARVIN DUGANI S PATIENT [place] MEDICAID H[place]KY PLAN May 22, 2022 MEDICAI D [id number] MARVIN DUGANI S PATIENT MEDICARE ([facility]) MEDICARE (M) PART B May 22, 2022 PART B [id number] MARVIN DUGANI S PATIENT MEDICARE ([facility]) MEDICARE (M) PART A Feb 19, 2009 PART A [id number] DUGAN,GENET S PATIENT MEDICARE PART D (WNR) MEDICARE (M) PART D Jul 22, 2022 PART D [id number] [phone] GENET DUGAN PATIENT [facility] (WNR) MEDICARE ADVANTAGE [facility] (WNR) Sep 21, 2022 [id number] GENET DUGAN PATIENT [facility] (WNR) MEDICARE ADVANTAGE [facility] (WNR) Sep 21, 2022 [id number] GENET DUGAN PATIENT Selected Encounter This section includes the information on record at [place] for the Encounter. Date/Time Encounter Type Encounter Description Reason Pro vider Source Oct 08, 2023 02:07 PM Outpatient Encounter ADMIN PAT ACTIVTIES (MASNONCT) IHE Encounter Template Text not used by [place] Plan of Treatment: Future Appointments (+ 6 [...] - [facility]ICINE [facility] [place] [facility] Dec 31, 2023 09:00 AM AMBULATORY - [facility]ICINE [facility] [place] [facility] Dec 31, 2023 10:30 AM AMBULATORY - [facility]ICINE [facility] [place] [facility] January 22, 2024 02:30 PM [facility]UL[facility]ORY [facility]ICINE [facility] [place] [facility] Feb 26, 2024 01:00 PM [facility]ORY - [place]ICINE [place] Feb 26, 2024 01:15 PM AMBUL[place]ORY - MEDICINE [place] Mar 10, 2024 09:00 AM AMBULATORY - NONE [facility] [place] [facility] Mar 18, 2024 09:30 AM AMBULATORY [facility]ICINE [facility] [place] [facility] Mar 21, 2024 09:30 AM [facility]ULATORY [facility] MEDICINE [facility] [place] [facility] Apr 07, 2024 08:30 AM [facility] [place] [facility] Lab Results: +/- 30 days of the encounter This section includes the Chemistry and Hematology Lab Results on record with [place] for the patient. Radiology Reports and Pathology Reports are provided separately, in subsequent sections. Lab Results This section contains the Chemistry/Hematology Results that were resulted 30 days before or 30 daysafter the date of the Encounter. Date/Time Source Result Type Result - Unit Interpretation Reference Range Comment Oct 06, 2023 12:48 PM [facility] PSA Specimen Type: SERUM No comment entered. Ordering Provider: HAYLEY VERDUZCO Report Released Date/Time: Oct 06, 2023 12:38 PM Reporting Lab: [facility] [address] [facility] [address] Performing Lab: [facility] [address] [facility] [address] PSA 21.53 ng/mL H 0.00-4.00 Sep 18, 2023 12:07 PM [facility] FOLATE Specimen Type: SERUM No comment entered. Ordering Provider: HAYLEY VERDUZCO Report Released Date/Time: Sep 18, 2023 11:50 AM Reporting Lab: [facility] [address] [facility] [address] Performing Lab: [facility] [address] [facility] [address] FOLATE 3.83 ng/mL L >5.2 Advance Directives: All historical and current Section Date Range: From patient's date of to the date document was created. This section includes ALL of a patient's completed or amended [place] Advance and Rescinded Directives. The entries below [...] the Encounter. The data comes from all [place] treatment facilities. Date/Time Radiology Report Provider Source Oct 14, 2023 02:[address] ABDOMEN /PELVIS W/WO CONTRAST: JAKE DUGAN [id number] -[id number] M Exm Date: OCT 14, 2023@14:00 Req Phys: LUBA,NOLAN Pat Loc: [facility]/OUTSIDE IMAGING NON-CNT (R Img Loc: OUTSIDE GENERAL RADIOLOGY Service: Unknown (Case [id number] COMPLETE) OUTSIDE CT ABDOMEN/PELVIS W/WO CO(RAD Detailed) CPT:58990 Reason for Study: outside images have been uploaded for continuity of care Clinical History: outside images have been uploaded for continuity of care Report Status: Electronically Filed Date Reported: OCT 14, 2023 Report: THIS EXAM WAS PERFORMED AND INTERPRETED AT AN OUTSIDE HOSPITAL Impression: THIS EXAM WAS PERFORMED AND INTERPRETED AT AN OUTSIDE HOSPITAL Primary Diagnostic Code: VERIFIED BY: / *ELECTRONICALLY FILED* [place] [facility] Encounter Notes: All associated encounter notes This section contains the clinical notes associated to the Encounter. Date/Time Encounter Note(s) Provider Source Oct 08, 2023 02:07 PM ADMINISTRATIVE NOTE: LOCAL TITLE: CCC: SCHEDULING ADMINISTRATION STANDARD TITLE: ADMINISTRATIVE NOTE DATE OF NOTE: OCT 08, 2023@14:07 ENTRY DATE: OCT 08, 2023@14:07:57 AUTHOR: ABELARDO VARGHESE COSIGNER: URGENCY: STATUS: COMPLETED Patient is requesting a call back from PACT Team to discuss their lab results. Patient can be reached back at [phone]. /mariana/ ABELARDO VARGHESE VISN1 [facility] Signed: 10/08/2023 14:08 Receipt Acknowledged By: 10/08/2023 14:49 /es/ ISABEL FREDERICK LPN LPN 10/08/2023 14:40 /es/ WAGNER MOORE,RN-BC REGISTERED NURSE (RN) ABELARDO VARGHESE [place] [facility]
--- OUTSIDE RECORDS SUMMARY | 2024-09-29 12:02 | XMS_ITS | Encounter Summary ---
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 Address [address] [place] [address] Care Team Providers Care Keeper Helper Name Role Phone ROWENA ROY Primary Care [...] Name Patient's Relationship to Policy Segal [facility] (WNR) MEDICARE [facility] INDIV IDUAL - [place] Sep 21, 2023 [id number] [phone] GENET DUGAN S PATIENT [facility] (WNR) MEDICARE ADVANTAGE [facility] ([facility]) Sep 21, 2023 [id number] [phone] MARVIN DUGANI S PATIENT [place] MEDICAID [place] PLAN May 22, 2022 MEDICAI D [id number] GENET DUGAN S PATIENT MEDICARE (WN) MEDICARE () PART B May 22, 2022 PART B [id number] MARVIN DUGANI S PATIENT MEDICARE (WNR) MEDICARE () PART A Feb 19, 2009 PART A [id number] [id number] [phone] GENET DUGAN S PATIENT MEDICARE PART D (R) MEDICARE () PART D Jul 22, 2022 PART D [id number] [phone] GENET DUGAN S PATIENT [facility] (WNR) MEDICARE ADVANTAGE [facility] (WNR) Sep 21, 2022 [id number] GENET DUGAN S PATIENT [facility] MCR (WNR) MEDICARE ADVANTAGE [facility] (WNR) Sep 21, 2022 [id number] [phone] GENET DUGAN PATIENT Selected Encounter This section includes the information on record at [place] for the Encounter. Date/Time Encounter Type Encounter Description Reason Provider Source Mar 14, 2024 12:29 PM Outpatient Encounter DERMATOLOGY ICD-10-CM L82.1 Other seborrheic keratosis ADRIANNE MELISSA [facility] Encounter Template Text not used by [place] Assessments - Encounter Diagnoses This section includes the primary and secondary diagnoses documented for the Encounter. Date/Time Primary/Secondary Diagnosis Diagnosis Name Provider Source Mar 14, 2024 12:31 PM PRIMARY Other seborrheic keratosis ADRIANNE MELISSA [facility] Plan of Treatment: Future Appointments (+ 6 months) and Future Tests (+/- 45 days) The Plan of Treatment section includes future care activities for the patient from all [place] [facility] This section includes future appointments and future [...] 18, 2024 09:30 AM AM[place]ULATORY [place]IC[place] [facility] [facility] Mar 21, 2024 09:30 AM AM[place]ULATORY [place]IC[place] [facility] [place] [facility] Apr 07, 2024 08:30 AM AM[place]UL[place]ORY [place]IC[place] [facility] [place] [facility] Apr 15, 2024 02:30 PM AM[place]ULATORY [place] [facility] [place] [facility] Apr 27, 2024 10:00 AM AMBULATORY [place] [facility] [place] [facility] May 13, 2024 11:00 AM AMBULATORY - [place]ICINE [place] [facility] [place] [facility] May 31, 2024 10:00 AM AMBULATORY - [facility]ICINE [place] [facility] [place] [facility] Jun 03, 2024 12:45 PM AMBULATORY - MEDICINE [facility] [place] [facility] Jun 21, 2024 09:00 AM AMBULATORY - MEDICINE [facility] [place] [facility] Aug 09, 2024 09:00 AM AMBULATORY - MEDICINE [facility] [place] [facility] Aug 16, 2024 12:00 PM AMBULATORY - NONE [facility] [place] [facility] Aug 22, 2024 11:20 AM AMBULATORY - MEDICINE [facility] [place] [facility] Aug 24, 2024 11:00 AM AMBULATORY - MEDICINE [facility] Sep 01, 2024 11:00 AM AMBULATORY - NONE [facility] [place] [facility] Sep 07, 2024 03:00 PM AM[place]ULATORY - [place] [facility] Active, Pending, and [...] - Chemistry Order VITAMIN B12 BLOOD (SST-SERUM) [facility] [place] [facility] Mar 19, 2024 12:00 AM Laboratory - Chemistry Order MICROALBUMIN CREATININE RATIO PANEL URINE (RANDOM) [facility] [place] [facility] Mar 19, 2024 12:00 AM Laboratory - Chemistry Order FOLATE BLOOD (SST-SERUM) [facility] [place] [facility] Mar 19, 2024 12:00 AM Laboratory - Chemistry Order VITAMIN D 25-OH (Therapy monitor) BLOOD (SST-SERUM) [facility] [place] [facility] Mar 19, 2024 12:00 AM Laboratory - Chemistry Order BASIC METABOLIC PANEL (fasting) BLOOD (SST-SERUM) [facility] [place] [facility] Mar 19, 2024 12:00 AM Laboratory - Chemistry Order LIPID PANEL FASTING BLOOD (SST-SERUM) [facility] [place] [facility] Mar 19, 2024 12:00 AM Laboratory - Chemistry Order LIVER FUNCTION BLOOD (SST-SERUM) [facility] Mar 19, 2024 12:00 AM Laboratory - Chemistry Order HEMOGLOBIN A1C PANEL BLOOD (LAV-BLOOD) [facility] Mar 19, 2024 12:00 AM Laboratory - Chemistry Order CBC AND DIFF (AUTO) BLOOD (LAV-BLOOD) [facility] Mar 19, 2024 12:00 AM Laboratory - Chemistry Order TSH BLOOD (SST-SERUM) [facility] Mar 19, 2024 12:00 AM Laboratory - Chemistry Order PSA BLOOD (SST-SERUM) [facility] Advance Directives: All historical and current [...] DERMATOLOGY CLINIC Signed: 03/14/2024 12:31 ADRIANNE MELISSA [facility]
--- OUTSIDE RECORDS SUMMARY | 2024-09-29 12:02 | XMS_ITS ---
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 Organization [facility] Address [address] [place] [id number] Care Team Providers Care Import/Export Agent Name Role Phone ROWENA ROY Primary Care [...] Segal's Name Patient's Relationship to Policy Segal [facility] (R) MEDICARE ADVANTAGE [place] INDIV IDUAL - [place] Sep 21, 2023 [id number] [phone] GENET DUGAN S [facility] (WNR) MEDICARE ADVANTAGE [facility] ([facility]) Sep 21, 2023 [id number] [phone] MARVIN DUGANI S PATIENT HUSKY MEDICAID HUSKY PLAN May 22, 2022 MEDICAI D [id number] GENET DUGAN S PATIENT MEDICARE ([facility]) MEDICARE (M) PART B May 22, 2022 PART B [id number] MARVIN DUGANI S PATIENT MEDICARE ([facility]) MEDICARE (M) PART A Feb 19, 2009 PART A [id number] DUGAN,GENET S PATIENT MEDICARE PART D (WNR) MEDICARE (M) PART D Jul 22, 2022 PART D [id number] GENET DUGAN S PATIENT [facility] (WNR) MEDICARE ADVANTAGE [facility] (WNR) Sep 21, 2022 [id number] GENET DUGAN PATIENT [facility] MCR (WNR) MEDICARE ADVANTAGE [facility] (WNR) Sep 21, 2022 [id number] GENET DUGAN PATIENT Selected Encounter This section [...] AMBULATORY - NONE [place] [facility] [place] [facility] Mar 18, 2024 09:30 AM AMBULATORY - MEDICINE [facility] [place] [facility] Mar 21, 2024 09:30 AM AMBULATORY - MEDICINE [facility] [place] [facility] Apr 07, 2024 08:30 AM AMBULATORY - MEDICINE [facility] [place] [facility] Apr 15, 2024 02:30 PM AMBULATORY - MEDICINE [facility] [place] [facility] Apr 27, 2024 10:00 AM AMBULATORY - MEDICINE [facility] [place] [facility] May 13, 2024 11:00 AM AMBULATORY - MEDICINE [facility] [place] [facility] May 31, 2024 10:00 AM AMBULATORY - MEDICINE [facility] [place] [facility] Jun 03, 2024 12:45 PM AMBULATORY - MEDICINE [facility] [place] [facility] Jun 21, 2024 09:00 AM AMBULATORY - MEDICINE [facility] [place] [facility] Aug 09, 2024 09:00 AM AMBULATORY - MEDICINE [facility] [place] [facility] Aug 16, 2024 12:00 PM AMBULATORY - NONE [facility] [place] [facility] Aug 22, 2024 11:20 AM AMBULATORY - MEDICINE [facility] [place] [facility] Aug 24, 2024 11:00 AM [facility] Sep 01, 2024 11:00 AM AMBULATORY - NONE [place] [facility] Active, Pending, and Scheduled Orders This [...] MICROALBUMIN CREATININE RATIO PANEL URINE (RANDOM) [facility] [place] [facility] Mar 19, 2024 12:00 AM Laboratory - Chemistry Order VITAMIN B12 BLOOD (SST-SERUM) [facility] Mar 19, 2024 12:00 AM Laboratory - Chemistry Order FOLATE BLOOD (SST-SERUM) [facility] Mar 19, 2024 12:00 AM Laboratory - Chemistry Order BASIC METABOLIC PANEL (fasting) BLOOD (SST-SERUM) [facility] Mar 19, 2024 12:00 AM Laboratory - Chemistry Order LIPID PANEL FASTING BLOOD (SST-SERUM) [facility] Mar 19, 2024 12:00 AM Laboratory - Chemistry Order LIVER FUNCTION BLOOD (SST-SERUM) [facility] Mar 19, 2024 12:00 AM Laboratory - Chemistry Order CBC AND DIFF (AUTO) BLOOD (LAV-BLOOD) [facility] Mar 19, 2024 12:00 AM Laboratory - Chemistry Order VITAMIN D 25-OH (Therapy monitor) BLOOD (SST-SERUM) [facility] Mar 19, 2024 12:00 AM Laboratory - Chemistry Order TSH BLOOD (SST-SERUM) [facility] Mar 19, 2024 12:00 AM Laboratory - Chemistry Order PSA BLOOD (SST-SERUM) [facility] Mar 19, 2024 12:00 AM Laboratory - Chemistry Order HEMOGLOBIN A1C PANEL BLOOD (LAV-BLOOD) [facility] Advance Directives: All historical and current [...] COMPLETED <====Click to Start Advanced Medical Support [facility] presents to the Primary Care clinic with the following request: [ ]Medication Renewal/Refill [ ]Consultation with Team RN [ ]Symptoms [ X ]Other The [place] states they are: [ ]Waiting [ X ]Not Waiting No Walk in visit scheduled with PACT Nurse [ X ] At this encounter the [place]'s demographics were verified. [ X ] At this encounter the 's Insurance information was verified. [ X ] At this encounter the below scheduled visits for the [place] were discussed and appointment reminder card was offered. Future appointments: 03/18/2024 09:30 CWM/SO/PACT 9 NURSING 03/21/2024 09:30 CWM/SO/PACT 9 06/03/2024 12:45 [facility] CARE-OPHTHALMOLOGY 01/02/2025 10:00 CWM/NO/OPTOMETRY/MERHAR walking in to request medical records to be released to himself in a few days. SURENDRA filled out and sent to [facility] medical record department. /mariana/ RADHA MCINTYRE Signed: 03/02/2024 10:22 RADHA ASHTON
--- OUTSIDE RECORDS SUMMARY | 2024-09-29 12:02 | XMS_ITS ---
Author Name Department of [place] Organization [place] Address [address] [place] [address] Care Team Providers Care Bilingual Social Worker Name Role Phone ROWENA ROY Primary [...] Segal's Name Patient's Relationship to Policy Segal [facility] ([facility]) MEDICARE ADVANTAGE [place] INDIV IDUAL - M[place] Sep 21, 2023 [id number] [phone] GENET DUGAN S [facility]IENT [facility] MEDICARE ADVANTAGE [facility] ([facility]) Sep 21, 2023 [id number] [phone] MARVIN DUGANI S PATIENT HUSKY MEDICAID HUSKY PLAN May 22, 2022 MEDICAI D [id number] MARVIN DUGANI S PATIENT MEDICARE ([facility]) MEDICARE (M) PART B May 22, 2022 PART B [id number] [id number] [phone] MARVIN DUGANI S PATIENT MEDICARE ([facility]) MEDICARE (M) PART A Feb 19, 2009 PART A [id number] DUGAN,GENET S PATIENT MEDICARE PART D (WNR) MEDICARE (M) PART D Jul 22, 2022 PART D [id number] [phone] GENET DUGAN PATIENT [facility] (WNR) MEDICARE ADVANTAGE [facility] (WNR) Sep 21, 2022 [id number] GENET DUGAN PATIENT [facility] (WNR) MEDICARE ADVANTAGE [facility] (WNR) Sep 21, 2022 [id number] GENET DUGAN PATIENT Selected Encounter This section includes the information on record at [place] for the Encounter. Date/Time Encounter Type Encounter Description Reason Pro vider Source Feb 26, 2024 11:26 AM Outpatient Encounter ADMIN PAT ACTIVTIES (MASNONCT) IHE Encounter Template Text not used by [place] Plan of Treatment: Future Appointments (+ 6 [...] AMBULATORY - NONE [place] [facility] [place] [facility] Mar 18, 2024 09:30 AM AMBULATORY - MEDICINE [facility] [place] [facility] Mar 21, 2024 09:30 AM AMBULATORY - MEDICINE [facility] [place] [facility] Apr 07, 2024 08:30 AM AMBULATORY - MEDICINE [facility] [place] [facility] Apr 15, 2024 02:30 PM AMBULATORY - MEDICINE [facility] [place] [facility] Apr 27, 2024 10:00 AM AMBULATORY - MEDICINE [facility] [place] [facility] May 13, 2024 11:00 AM AMBULATORY - MEDICINE [facility] [place] [facility] May 31, 2024 10:00 AM AMBULATORY - MEDICINE [facility] [place] [facility] Jun 03, 2024 12:45 PM AMBULATORY - MEDICINE [facility] [place] [facility] Jun 21, 2024 09:00 AM AMBULATORY - MEDICINE [facility] Aug 09, 2024 09:00 AM AMBULATORY - MEDICINE [facility] Aug 16, 2024 12:00 PM AMBULATORY - NONE [place] [facility] Aug 22, 2024 11:20 AM AMBULATORY - MEDICINE [place] C NTRL TRN [facility] Aug 24, 2024 11:00 AM [...] - Chemistry Order VITAMIN B12 BLOOD (SST-SERUM) [facility] Mar 19, 2024 12:00 AM Laboratory - Chemistry Order MICROALBUMIN CREATININE RATIO PANEL URINE (RANDOM) [facility] Mar 19, 2024 12:00 AM Laboratory - Chemistry Order FOLATE BLOOD (SST-SERUM) [facility] Mar 19, 2024 12:00 AM Laboratory - Chemistry Order VITAMIN D 25-OH (Therapy monitor) BLOOD (SST-SERUM) [facility] Mar 19, 2024 12:00 AM Laboratory - Chemistry Order LIPID PANEL FASTING BLOOD (SST-SERUM) [facility] CN[facility]L WSN [facility] Mar 19, 2024 12:00 AM Laboratory - Chemistry Order LIVER FUNCTION BLOOD (SST-SERUM) [facility] Mar 19, 2024 12:00 AM Laboratory - Chemistry Order HEMOGLOBIN A1C PANEL BLOOD (LAV-BLOOD) [facility] Mar 19, 2024 12:00 AM Laboratory - Chemistry Order CBC AND DIFF (AUTO) BLOOD (LAV-BLOOD) [facility] [place] Mar 19, 2024 12:00 AM Laboratory - Chemistry Order TSH BLOOD (SST-SERUM) [facility] Mar 19, 2024 12:00 AM Laboratory - Chemistry Order BASIC METABOLIC PANEL (fasting) BLOOD (SST-SERUM) [facility] Mar 19, 2024 12:00 AM Laboratory - Chemistry Order PSA BLOOD (SST-SERUM) [facility] Advance Directives: All historical and [...] DATE: FEB 26, 2024@11:26:18 AUTHOR: HOWARD TRAN EXP COSIGNER: URGENCY: STATUS: COMPLETED CCC: SCHEDULING ADMINISTRATION Has ADDENDA Patient Demographics Patient Name: JAKE DUGAN Patient Primary Phone: [phone] Patient Primary Address: [address] [place] [address] Patient : 1945 Patient Age: 78 Caller/Recipient Relation to Patient: Self Administrative Administrative Note Reason: Community Care / [place] Act Administrative Note Comments: Call from , asking if he can go to local Emergency in [place]. Offered to speak with triage - declined, he only wanted to speak with Pact RN who speaks Slovak RN was not avail. Advised he can self refer to Emergency Room - he will do this. State he has a boil on back of grease/oil and it hurts /mariana/ HOWARD OG 1 [facility] AMSA Signed: 02/26/2024 11:26 Receipt Acknowledged By: 03/01/2024 11:36 /mariana/ ISABEL FREDERICK LPN LPN 02/26/2024 12:08 /mariana/ WAGNER MOORE,RN-BC REGISTERED NURSE (RN) 02/26/2024 ADDENDUM STATUS: COMPLETED Called and he will come into sick clinic to have a painful boil on his back evaluated. /mariana/ WAGNER MOORE,RN-BC REGISTERED NURSE (RN) Signed: 02/26/2024 12:[address] [facility] H[facility]
--- OUTSIDE RECORDS SUMMARY | 2024-09-29 12:03 | XMS_ITS ---
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 Organization Department [place] Address [address] [place] [address] Care Team Providers Care Hydraulic Press Operator Name Role Phone ROWENA ROY Primary [...] Relationship to Policy Segal [facility] (R) MEDICARE ADVANTAGE [place] INDIV IDUAL - [place] Sep 21, 2023 [id number] [phone] GENET DUGAN S [facility]IENT [facility]NR) MEDIC[facility] ADVANTAGE [facility] ([facility]) Sep 21, 2023 [id number] [phone] DUGAN,GENET S PATIENT HUSKY MEDICAID HUSKY PLAN May 22, 2022 MEDICAI D [id number] MARVIN DUGANI S PATIENT MEDICARE ([facility]) MEDICARE (M) PART B May 22, 2022 PART B [id number] [id number] DUGAN,GENET S PATIENT MEDICARE (WN) MEDICARE (M) PART A Feb 19, 2009 PART A [id number] [id number] [phone] DUGANMARVINI S PATIENT MEDICARE PART D (WNR) MEDICARE (M) PART D Jul 22, 2022 PART D [id number] [phone] GENET DUGAN S PATIENT [facility] (WNR) MEDICARE ADVANTAGE [facility] (WNR) Sep 21, 2022 [id number] GENET DUGAN PATIENT [facility] (WNR) MEDICARE ADVANTAGE [facility] (WNR) Sep 21, 2022 [id number] [phone] GENET DUGAN PATIENT Selected Encounter This section [...] 21, 2024 09:30 AM AMBULATORY - MEDICINE [place] [facility] Apr 07, 2024 08:30 AM AMBULATORY - MEDICINE [place] [facility] Apr 15, 2024 02:30 PM AMBULATORY - MEDICINE [place] [facility] Apr 27, 2024 10:00 AM AMBULATORY - MEDICINE [place] [facility] May 13, 2024 11:00 AM AMBULATORY - MEDICINE [place] [facility] May 31, 2024 10:00 AM AMBULATORY - MEDICINE [place] [facility] Jun 03, 2024 12:45 PM AMBULATORY - MEDICINE [place] [facility] Jun 21, 2024 09:00 AM AMBULATORY - MEDICINE [place] [facility] Aug 09, 2024 09:00 AM AMBULATORY - MEDICINE [place] [facility] Aug 16, 2024 12:00 PM AMBULATORY - NONE [place] [facility] [place] [facility] Aug 22, 2024 11:20 AM AMBULATORY - MEDICINE [place] [facility] [place] [facility] Aug 24, 2024 11:00 AM AMBULATORY - MEDICINE [facility] Sep 01, 2024 11:00 AM AMBULATORY - N[facility] Sep 07, 2024 03:00 PM AMBULATORY - MEDICINE [facility] Active, Pending, and Scheduled Orders This [...] Order MICROALBUMIN CREATININE RATIO PANEL URINE (RANDOM) [facility] Mar 19, 2024 12:00 AM Laboratory - Chemistry Order VITAMIN B12 BLOOD (SST-SERUM) [facility] Mar 19, 2024 12:00 AM Laboratory - Chemistry Order VITAMIN D 25-OH (Therapy monitor) BLOOD (SST-SERUM) [facility] WSN [facility] Mar 19, 2024 12:00 AM Laboratory - Chemistry Order FOLATE BLOOD (SST-SERUM) [facility] Mar 19, 2024 12:00 AM Laboratory - Chemistry Order BASIC METABOLIC PANEL (fasting) BLOOD (SST-SERUM) [facility] Mar 19, 2024 12:00 AM Laboratory - Chemistry Order LIPID PANEL FASTING BLOOD (SST-SERUM) [facility] Mar 19, 2024 12:00 AM Laboratory - Chemistry Order LIVER FUNCTION BLOOD (SST-SERUM) [facility] Mar 19, 2024 12:00 AM Laboratory - Chemistry Order HEMOGLOBIN A1C PANEL BLOOD (LAV-BLOOD) [facility] Mar 19, 2024 12:00 AM Laboratory - Chemistry Order CBC AND DIFF (AUTO) BLOOD (LAV-BLOOD) [facility] Mar 19, 2024 12:00 AM Laboratory - Chemistry Order TSH BLOOD (SST-SERUM) [facility] Mar 19, 2024 12:00 AM Laboratory - Chemistry Order PSA BLOOD (SST-SERUM) [facility] Advance Directives: All historical and current Section [...] ADVANCE DIRECTIVE [facility] Encounter Notes: All associated encounter notes [...] REQUIRED Electronically Filed: 04/05/2024 by: MARIE AZUL Adjustment Examiner MARIE AZUL [facility]
--- OUTSIDE RECORDS SUMMARY | 2024-09-29 12:03 | XMS_ITS | Encounter Summary ---
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 Address [address] [place] [address] Care Team Providers Care Film Or Videotape Editor Name Role Phone ROWENA ROY Primary Care [...] Segal's Name Patient's Relationship to Policy Segal [facility] (R) MEDICARE ADVANTAGE [place] INDIV IDUAL - [place] Sep 21, 2023 [id number] [phone] GENET DUGAN S [facility]IENT [facility] (WNR) MEDICARE ADVANTAGE [facility] ([facility]) Sep 21, 2023 [id number] [phone] DUGAN,GENET S PATIENT HUSKY MEDICAID HUSKY PLAN May 22, 2022 MEDICAI D [id number] MARVIN DUGANI S PATIENT MEDICARE ([facility]) MEDICARE (M) PART B May 22, 2022 PART B [id number] DUGAN,GENET S PATIENT MEDICARE (WN) MEDICARE (M) PART A Feb 19, 2009 PART A [id number] [phone] DUGANMARVINI S PATIENT MEDICARE PART D (WNR) MEDICARE (M) PART D Jul 22, 2022 PART D [id number] [phone] GENET DUGAN S PATIENT [facility] (WNR) MEDICARE ADVANTAGE [facility] (WNR) Sep 21, 2022 [id number] GENET DUGAN PATIENT [facility] (WNR) MEDICARE ADVANTAGE [facility] (WNR) Sep 21, 2022 [id number] GENET DUGAN PATIENT Selected Encounter This section [...] 2024 01:00 PM [facility] Feb 26, 2024 01:15 PM AMBULATORY - MEDICINE [facility] Mar 10, 2024 09:00 AM AMBULATORY - NONE [place] [facility] [place] [facility] Mar 18, 2024 09:30 AM AMBULATORY - MEDICINE [place] [facility] Mar 21, 2024 09:30 AM AMBULATORY - MEDICINE [place] [facility] [place] [facility] Apr 07, 2024 08:30 AM AMBULATORY - MEDICINE [place] [facility] [place] [facility] Apr 15, 2024 02:30 PM AMBULATORY - MEDICINE [place] [facility] [place] [facility] Apr 27, 2024 10:00 AM AMBULATORY - MEDICINE [place] [facility] [place] [facility] May 13, 2024 11:00 AM AMBULATORY - MEDICINE [place] [facility] [place] [facility] May 31, 2024 10:00 AM AMBULATORY - MEDICINE [place] [facility] [place] [facility] Jun 03, 2024 12:45 PM AMBULATORY - MEDICINE [facility] WSTRN [facility] Jun 21, 2024 09:00 AM AMBULATORY - MEDICINE [facility] Advance Directives: All historical and [...] REQUIRED Electronically Filed: 04/14/2024 by: MG AYON [place] CNTL WSN [facility]
--- OUTSIDE RECORDS SUMMARY | 2024-09-29 12:04 | XMS_ITS ---
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 Organization [place] Address [address] [place] [address] Care Team Providers Care Life Manager Name Role Phone ROWENA ROY Primary [...] Segal's Name Patient's Relationship to Policy Segal [facility] [place] (R) MEDICARE ADVANTAGE [place] INDIV IDUAL - MASS Sep 21, 2023 [id number] [phone] GENET DUGAN S [facility] (WNR) MEDICARE ADVANTAGE [facility] ([facility]) Sep 21, 2023 [id number] [phone] DUGAN,GENET S PATIENT HUSKY MEDICAID HUSKY PLAN May 22, 2022 MEDICAI D [id number] MARVIN DUGANI S PATIENT MEDICARE (WN) MEDICARE (M) PART B May 22, 2022 PART B [id number] DUGAN,GENET S PATIENT MEDICARE (WNR) MEDICARE (M) PART A Feb 19, 2009 PART A [id number] DUGAN,GENET S PATIENT MEDICARE PART D (WNR) MEDICARE (M) PART D Jul 22, 2022 PART D [id number] GENET DUGAN PATIENT [facility] (WNR) MEDICARE ADVANTAGE [facility] (WNR) Sep 21, 2022 [id number] GENET DUGAN PATIENT [facility] MCR (WNR) MEDICARE ADVANTAGE MCR (WNR) Sep 21, 2022 [id number] GENET DUGAN PATIENT Selected Encounter This section [...] - MEDICINE [place] [facility] Aug 16, 2024 12:00 PM AMBULATORY - NONE [place] [facility] Aug 22, 2024 11:20 AM AMBULATORY - MEDICINE [place] [facility] Aug 24, 2024 11:00 AM AMBULATORY [facility] Sep 01, 2024 11:00 AM AMBULATORY - NONE [place] [facility] Sep 07, 2024 03:00 PM AMBULATORY - MEDICINE [place] [facility] Dec 13, 2024 01:30 PM AMBULATORY - MEDICINE [facility] Jan 02, 2025 10:00 AM AMBULATORY - MEDICINE [facility] [place] [facility] Active, Pending, and Scheduled Orders This section [...] 09:40 AM Consult Order COMMUNITY CARE-UROLOGY Cons Certified Pediatric Nurse Practitioner's Choice [facility] Lab Results: +/- 30 [...] For additional information, please refer to http://education .S B [email or web address] (This link is being provided for informational/ educational purposes only.) This test was developed and its analytical performance characteristics have been determined by [employer] [place]. It has not been cleared or approved by the U.S. Food and Drug Administration. This assay has been validated pursuant to the CLIA regulations and is used for clinical purposes. This test was developed and its analytical performance characteristics have been determined by [employer] [place]. It has not been cleared or approved by the U.S. Food and Drug Administration. This assay has been validated pursuant to the CLIA regulations and is used for clinical purposes. Test Performed by [facility], [address] [place], [address] [place], [place] Dov Bahena M.D., Ph.D., Director of Laboratories , CLIA [id number] TEST PERFORMED AT: , Ordering Provider: HORTENCIA VERDUZCO Report Released Date/Time: Aug 08, 2024 10:54 AM Reporting Lab: [facility] [address] [address] Performing Lab: [facility] [address] [facility] [place], [address] [facility] [address] VITAMIN D, 25-OH, TOTAL 51 ng/mL 30-100 VITAMIN D, 25-OH, D3 51 ng/mL VITAMIN D, 25-OH, D2 <4 ng/mL Aug 08, 2024 10:59 AM [facility] FOLATE (WROX) Specimen Type: SERUM No comment entered. Ordering Provider: HORTENCIA VERDUZCO Report Released Date/Time: Aug 08, 2024 10:54 AM Reporting Lab: [facility] [address] [address] Performing Lab: [facility] [address] [facility] [address] FOLATE (WROX) 4.07 ng/mL L >5.2 Aug 08, 2024 10:59 AM [facility] MICROALBUMIN CREATININE RATIO PANEL Specimen Type: URINE No comment entered. Ordering Provider: HORTENCIA VERDUZCO Report Released Date/Time: Aug 08, 2024 10:54 AM Reporting Lab: [facility]ITAL[facility] [address] [address] Performing Lab: [facility]ITALUSE[facility] [address] [address] MICROALBUMIN/ CREATININE RATIO 354.2 mg/g H 0-29.9 MICROALBUMIN, QUANTITATIVE 103.3 mg/dL RR UNAVAIL CREATININE URINE 291.68 mg/dL Aug 08, 2024 10:59 AM [facility] VITAMIN B12 Specimen Type: SERUM No comment entered. Ordering Provider: HORTENCIA VERDUZCO GRACIELA Report Released Date/Time: Aug 08, 2024 10:54 AM Reporting Lab: [place] [facility] [address] [address] Performing Lab: [address] [address] VITAMIN B12 1849 pg/mL H 200-900 Aug [...] Aug 08, 2024 10:54 AM Reporting Lab: [address] [address] Performing Lab: [address] [address] HEMOGLOBIN A1C 5.2 4.0-5.6 Aug 08, 2024 10:59 AM [facility] BASIC METABOLIC PANEL (fasting) Specimen Type: SERUM No comment entered. Ordering Provider: HORTENCIA VERDUZCO GRACIELA Report Released Date/Time: Aug 08, 2024 10:54 AM Reporting Lab: [address] [address] Performing Lab: [address] [address] UREA NITROGEN 22 mg/dL 7-25 GLUCOSE 91 [...] Aug 08, 2024 10:54 AM Reporting Lab: [facility] [place] [facility] [address] [address] Performing Lab: [facility]ITALRST. [facility]INC[facility]TRN [facility] HOSPITALUSETS [facility] [address] [address] PROTEIN,TOTAL 6.7 g/dL 6.0-8.3 ALBUMIN 3.4 g/dL L 3.5-5.0 ALKALINE PHOSPHATASE 151 U/L H 40-150 AST 17 U/L 5-34 ALT 8 U/L BILIRUBIN, TOTAL 0.5 mg/dL 0.2-1.2 Aug 08, 2024 10:59 AM [facility]ITALR[facility]ITALUS[facility] TSH Specimen Type: SERUM No comment entered. Ordering Provider: HORTENCIA VERDUZCO Report Released Date/Time: Aug 08, 2024 10:54 AM Reporting Lab: [facility]ITALRL TRN [facility]ITALUSETS [facility] [address] [address] Performing Lab: [facility]ITALRST[facility] EASTTRN [facility] HOSPITALUSETS [facility] [address] [address] TSH 1.93 u[IU]/mL 0.35-5.00 Aug 08, 2024 10:[address] [facility]ITALUSESTAT[facility] LIPID PANEL FASTING Specimen Type: SERUM No comment entered. Ordering Provider: HORTENCIA VERDUZCO Report Released Date/Time: Aug 08, 2024 10:54 AM Reporting Lab: [facility]N [facility] HOSPITALUSETS [address] [address] Performing Lab: [facility]N [facility]OS[facility]ITALUSETS [address] [address] CHOLESTEROL 178 mg/dL TRIGLYCERIDE 97 mg/dL 0-150 LDL calculated 97 mg/dL 0-129 CHOL/HDL 2.9 HDL CHOLESTEROL 62 mg/dL H 40-60 Aug 08, 2024 10:59 AM [facility]ITAL[facility] PSA Specimen Type: SERUM No comment entered. Ordering Provider: HORTENCIA VERDUZCO Report Released Date/Time: Aug 08, 2024 10:54 AM Reporting Lab: [facility]PITALRST[facility] VINCENT[facility] EASTTRN [place] [address] [address] Performing Lab: [place] [facility] [address] [address] PSA 30.59 ng/mL H 0.00-4.00 Aug 08, 2024 10:59 AM [facility] CBC AND DIFF (AUTO) Specimen Type: BLOOD No comment entered. Ordering Provider: HORTENCIA VERDUZCO Report Released Date/Time: Aug 08, 2024 10:54 AM Reporting Lab: [facility] [address] [address] Performing Lab: [facility] [address] [address] WBC 7.81 10*3/uL 4.50-11.00 RBC 4.88 10*6/uL [...] Apr 04, 2024 ADVANCE DIRECTIVE [facility] Radiology Reports: +/- 30 days [...] ABDOMEN AND PELVIS WITH CONTRAST: JAKE DUGAN [id number] -1945 Ex Date: AUG 16, 2024@14:04 Req Phys: NOLAN VERDUZCO Pat Loc: CWM/SO/PACT 9 (Req'g Loc) Img Loc: [place]/CT Service: [place] [address] (Case [id number] COMPLETE) CT ABDOMEN AND PELVIS WITH CONTRA(CT Detailed) CPT:19311 Contrast Media : Non-ionic Iodinated Reason for Study: prostate CA Clinical History: Report Status: Verified Date Reported: AUG 16, 2024 Date Verified: AUG 16, 2024 Quality Control Industrial Engineer E-Sig: Report: CT ABDOMEN AND PELVIS WITH [...] tumor infiltration. READING PHYSICIAN: Kwabena Perez M.D. -[id number] 08/16/2024 20:18 [facility] Genemationradiology Program [phone] (For Medical Practitioner Use Only) Attention Patients / Veterans: If you have questions or concerns about these test results, please contact your ordering provider or primary care team. Primary Diagnostic Code: POSSIBLE MALIGNANCY Primary Interpreting Staff: RADIOLOGY,OUTSIDE SERVICE, Staff Physician / RADIOLOGY,OUTSIDE SERVICE [place] [facility] Encounter Notes: All associated encounter notes This section contains the clinical notes associated to the Encounter. Date/Time Encounter Note(s) Provider Source Jul 18, 2024 04:55 PM NONVA NOTE: [facility] TITLE: [facility] PRESENTING CARE COORD PLAN STANDARD TITLE: NONVA NOTE DATE OF NOTE: JUL 18, 2024@16:55 ENTRY DATE: JUL 18, 2024@16:56:09 AUTHOR: IKE BRODY EXP COSIGNER: URGENCY: STATUS: COMPLETED Emergency Notification Intake Date Presenting to the Facility: May Method of Contact: Notified from ECR worklist Notification ID: [id number] [facility] Referral #: [id number] On License Of [facility] Hospital Name: Hospital: [facility] Address: City: [place] State: [place] Zip Code: Phone : On License Of [facility] Facility Point of Contact: Name: Alfonzo Phone: Chief complaint: Diff Urinating Primary Diagnosis: Disposition Discharged Date of discharge: May Discharge to Comment: ER Only /mariana/ IKE MCINTYRE Signed: 07/18/2024 16:57 Receipt Acknowledged By: * AWAITING SIGNATURE * BLANCA ARELLANO 09/19/2024 13:24 /mariana/ Mariluz BASS,RN,[facility] TRANSFER/TRAVELING COORDINATOR * AWAITING SIGNATURE * SARAH YANEZ * AWAITING SIGNATURE * TIMA JEFFERSON DAWN MARIE [place]
--- OUTSIDE RECORDS SUMMARY | 2024-09-29 12:04 | XMS_ITS | Encounter Summary ---
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 Organization [place] Address [address] [place] [address] Care Team Providers Care Bituminous Distributor Operator Name Role Phone ROWENA ROY Primary [...] INDIV IDUAL - MASS Sep 21, 2023 [id number] [phone] GENET DUGAN S [facility]IENT [facility] (WNR) MEDIC[facility] ADVANTAGE [facility] Sep 21, 2023 [id number] [phone] DUGAN,GENET S PATIENT HUSKY MEDICAID HUSKY PLAN May 22, 2022 MEDICAI D [id number] MARVIN DUGANI S PATIENT MEDICARE (WN) MEDICARE (M) PART B May 22, 2022 PART B [id number] DUGAN,GENET S PATIENT MEDICARE (WNR) MEDICARE (M) PART A Feb 19, 2009 PART A [id number] DUGAN,GENET S PATIENT MEDICARE PART D (WNR) MEDICARE (M) PART D Jul 22, 2022 PART D [id number] GENET DUGAN PATIENT [facility] (WNR) MEDICARE ADVANTAGE MCR (WNR) Sep 21, 2022 [id number] GENET DUGAN PATIENT [facility] (WNR) MEDICARE ADVANTAGE MCR (WNR) Sep 21, 2022 [id number] GENET DUGAN PATIENT Selected Encounter This section [...] - MEDICINE [place] [facility] Aug 09, 2024 09:00 AM AMBULATORY - MEDICINE [place] [facility] Aug 16, 2024 12:00 PM AMBULATORY - NONE [place] [facility] Aug 22, 2024 11:20 AM AMBULATORY - MEDICINE [place] [facility] Aug 24, 2024 11:00 AM [facility] Sep 01, 2024 11:00 AM AMBULATORY - NONE [place] [facility] Sep 07, 2024 03:00 PM AMBULATORY - MEDICINE [place] [facility] Advance Directives: All historical and current Section [...] DATE: JUL 28, 2024@11:25:33 AUTHOR: BRANDIE WEINER EXP COSIGNER: URGENCY: STATUS: COMPLETED VistA Imaging - Scanned Document SCANNED DOCUMENT SIGNATURE NOT REQUIRED Electronically Filed: 07/28/2024 by: BRANDIE WEINER PEER FINANCIAL COUNSELOR BRANDIE WEINER [place] [facility]
--- OUTSIDE RECORDS SUMMARY | 2024-09-29 12:04 | XMS_ITS | Encounter Summary ---
Author Name [place] Organization [place] Address [address] [place] [address] Care Team Providers Care Boom Crane Operator Name Role Phone ROWENA ROY Primary [...] Relationship to Policy Segal [facility] MEDICARE ADVANTAGE [place] INDIV IDUAL - MASS Sep 21, 2023 [id number] [phone] GENET DUGAN S PATIENT [facility] MEDICARE ADVANTAGE [facility]) Sep 21, 2023 [id number] [phone] MARVIN DUGANI S PATIENT HUSKY MEDICAID HUSKY PLAN May 22, 2022 MEDICAI D [id number] MARVIN DUGANI S PATIENT MEDICARE ([facility]) MEDICARE (M) PART B May 22, 2022 PART B [id number] MARVIN DUGANI S PATIENT MEDICARE ([facility]) MEDICARE (M) PART A Feb 19, 2009 PART A [id number] DUGAN,GENET S PATIENT MEDICARE PART D (WNR) MEDICARE (M) PART D Jul 22, 2022 PART D [id number] GENET DUGAN PATIENT [facility] (WNR) MEDICARE ADVANTAGE [facility] (WNR) Sep 21, 2022 [id number] GENET DUGAN PATIENT [facility] (WNR) MEDICARE ADVANTAGE MCR (WNR) Sep 21, 2022 [id number] [phone] GENET DUGAN PATIENT Selected Encounter This section [...] 09, 2024 09:00 AM AMBULATORY - MEDICINE [facility] [place] [facility] Aug 16, 2024 12:00 PM AMBULATORY - NONE [place] [facility] Aug 22, 2024 11:20 AM AMBULATORY - MEDICINE [place] [facility] Aug 24, 2024 11:00 AM AMBULATORY - MEDICINE [place] Sep 01, 2024 11:00 AM AMBULATORY - NONE [place] [facility] Sep 07, 2024 03:00 PM AMBULATORY - MEDICINE [facility] [place]L [place] [facility] Dec 13, 2024 01:30 PM AMBULATORY [...] data comes from all [place] treatment facilities. Test Date/Time Test Type Test Details Facility Name Aug 09, 2024 09:40 AM Consult Order COMMUNITY CARE-UROLOGY Cons Health Insurance Assessor's Choice [place] CN[facility]L WSTRS[facility] Advance Directives: All historical and current [...] ADVANCE DIRECTIVE [facility] Encounter Notes: All associated encounter notes [...] Patient Name: JAKE DUGAN Patient Primary Phone: [phone] Patient Primary Address: [address] [place] [address] Patient : 1945 Patient Age: 79 Caller/Recipient Relation to Patient: Other If Other Describe Relation to Patient: Eye sight and surgery Caller Name: Ivanna Administrative Administrative Note Comments: Ivanna calling from [facility] and surgery to confirm had medical clearance appointment for upcoming surgery scheduled next Thursday. She can be reached at [phone]. IMPORTANT: This note was created by [facility] Clinical Contact Center staff. Please do not alert the staff member by adding them as a signer for future communications. Alerts are not monitored by this user. /mariana/ Melissa OG 1 CATRACHITO MCINTYRE Signed: 06/30/2024 09:27 Receipt Acknowledged By: 06/30/2024 15:32 /es/ ISABEL FREDERICK LPN LPN 06/30/2024 15:34 /mariana/ OUMAR MOOREN,RN-BC REGISTERED NURSE (RN) 06/30/2024 ADDENDUM STATUS: COMPLETED Ivanna called by this insurance writer and advised veterns appt for medical clearance was completed Jun 21, 2024 notes will be fax over. Ivanna thanked insurance writer for calling her back. /mariana/ ISABEL FREDERICK LPN LPN Signed: 06/30/2024 15:35 MELISSA LOPEZ [place] [facility]
--- OUTSIDE RECORDS SUMMARY | 2024-09-29 12:05 | XMS_ITS | Encounter Summary ---
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 [facility] [place] Address [address] [place] [address] Care Team Providers Care Air Intercept Controller Name Role Phone ROWENA ROY Primary Care [...] Segal's Name Patient's Relationship to Policy Segal [facility] ADVANTAGE [place] INDIV IDUAL - [place] Sep 21, 2023 [id number] [phone] [facility] ([facility]) Sep 21, 2023 [id number] [phone] MARVIN DUGANI S PATIENT [place] MEDICAID H[place]KY PLAN May 22, 2022 MEDICAI D [id number] GENET DUGAN S PATIENT MEDICARE ([facility]) MEDICARE (M) PART B May 22, 2022 PART B [id number] [phone] GENET DUGAN S PATIENT MEDICARE (WNR) MEDICARE (M) PART A Feb 19, 2009 PART A [id number] MARVIN DUGANI S PATIENT MEDICARE PART D (WNR) MEDICARE (M) PART D Jul 22, 2022 PART D [id number] GENET DUGAN S PATIENT [facility] (WNR) MEDICARE ADVANTAGE [facility] (WNR) Sep 21, 2022 [id number] [phone] GENET DUGAN S PATIENT [facility] (WNR) MEDICARE [facility] (WNR) Sep 21, 2022 [id number] GENET DUGAN S PATIENT Selected Encounter [...] Primary/Secondary Diagnosis Diagnosis Name Provider Source Sep 23, 2024 03:47 PM PRIMARY Carcinoma in situ of prostate [facility] Plan of Treatment: Future Appointments (+ 6 [...] - MEDICINE [place] [facility] [facility] Aug 24, 2024 11:00 AM AMBULATORY - MEDICINE [facility] Sep 01, 2024 11:00 AM AMBULATORY - NONE [place] [facility] [place] [facility] Sep 07, 2024 03:00 PM AMBULATORY - MEDICINE [place] [place] [facility] Dec 13, 2024 01:30 PM AMBULATORY - MEDICINE [place] Jan 02, 2025 10:00 AM AM[facility]ULATORY - [facility]ICINE [place] [facility] Active, Pending, and Scheduled Orders This [...] 09:40 AM Consult Order COMMUNITY CARE-UROLOGY Cons Adhesion Tester's Choice [facility] Lab Results: +/- 30 days of the [...] Range Comment Aug 24, 2024 11:28 AM [place] [facility] CBC AND DIFF (AUTO) Specimen Type: BLOOD No comment entered. Ordering Provider: ROWENA ROY Report Released Date/Time: Aug 24, 2024 11:07 AM Reporting Lab: [facility] [address] [address] Performing Lab: [facility] [address] [address] WBC 8.84 10*3/uL 4.50-11.00 RBC 4.72 10*6/uL [...] 10*3/uL 0.00-0.00 Aug 24, 2024 11:28 AM [facility] MICROSCOPIC AUTOMATED, URINE Specimen Type: URINE Comment: If Glucose = >500 and Ketones are positive, please alert the Physician. Ordering Provider: MONICA VERDUZCO Report Released Date/Time: Aug 09, 2024 09:43 AM Reporting Lab: [address] [address] Performing Lab: [facility] [address] [address] UA WBC 0-5 /[HPF] 0-5 UA BACTERIA 1+ /[HPF] NoneObs UA TRIPLE PHOSPHATE CRYSTALS MODERATE /[HPF] Not Established UA RBC 6-10 /[HPF] H 0-3 Aug 24, 2024 11:28 AM [facility] URINALYSIS Specimen Type: URINE Comment: If Glucose = >500 and Ketones are positive, please alert the Physician. Ordering Provider: MONICA VERDUZCO Report Released Date/Time: Aug 09, 2024 09:43 AM Reporting Lab: [facility] [address] [address] Performing Lab: [address] [address] UA COLOR Light-Brown Yellow UA APPEARANCE Turbid Clear UA GLUCOSE Normal mg/dL Negative UA KETONES NEGATIVE mg/dL Negative UA BLOOD LARGE mg/dL Negative UA PROTEIN 100 mg/dL Negative UA NITRITE NEGATIVE mg/dL Negative UA BILIRUBIN NEGATIVE mg/dL Negative UA SPECIFIC GRAVITY 1.007 L 1.016-1.022 UA pH 8.5 5.0-9.0 UA UROBILINOGEN Normal mg/dL <2.0 UA LEUKOCYTE LARGE Negative Aug 08, 2024 10:59 AM [facility] VITAMIN D 25-OH (Therapy monitor) Specimen Type: [...] For additional information, please refer to [email or web address] (This link is being provided for informational/ educational purposes only.) This test was developed and its analytical performance characteristics have been determined by [employer] [place], [place]. It has not been cleared or approved by the U.S. Food and Drug Administration. This assay has been validated pursuant to the CLIA regulations and is used for clinical purposes. This test was developed and its analytical performance characteristics have been determined by [employer] [place], [place]. It has not been cleared or approved by the U.S. Food and Drug Administration. This assay has been validated pursuant to the CLIA regulations and is used for clinical purposes. Test Performed by [employer] [employer] [facility], [address] [place] [address] Dov Bahena M.D., Ph.D., Director of Laboratories , CLIA [id number] TEST PERFORMED AT: , Ordering Provider: MONICA VERDUZCO Report Released Date/Time: Aug 08, 2024 10:54 AM Reporting Lab: [facility] [address] [address] Performing Lab: [facility] [address] [address] VITAMIN D, 25-OH, TOTAL 51 ng/mL 30-100 VITAMIN D, 25-OH, D3 51 ng/mL VITAMIN D, 25-OH, D2 <4 ng/mL Aug 08, 2024 10:59 AM [facility] FOLATE (WROX) Specimen Type: SERUM No comment entered. Ordering Provider: MONICA VERDUZCO Report Released Date/Time: Aug 08, 2024 10:54 AM Reporting Lab: [facility] [place] [facility] [address] [address] Performing Lab: [facility] [place] [facility] [address] [facility] [address] FOLATE (WROX) 4.07 ng/mL L >5.2 Aug 08, 2024 10:59 AM [facility] MICROALBUMIN CREATININE RATIO PANEL Specimen Type: URINE No comment entered. Ordering Provider: MONICA VERDUZCO Report Released Date/Time: Aug 08, 2024 10:54 AM Reporting Lab: [facility] [address] [address] Performing Lab: [facility] [address] [address] MICROALBUMIN/ CREATININE RATIO 354.2 mg/g H 0-29.9 MICROALBUMIN, QUANTITATIVE 103.3 mg/dL RR UNAVAIL CREATININE URINE 291.68 mg/dL Aug 08, 2024 10:59 AM [facility] VITAMIN B12 Specimen Type: SERUM No comment entered. Ordering Provider: MONICA VERDUZCO Report Released Date/Time: Aug 08, 2024 10:54 AM Reporting Lab: [facility] [place] [facility] [address] [address] Performing Lab: [facility] [address] [address] VITAMIN B12 1849 pg/mL H 200-900 Aug 08, 2024 10:59 AM [facility] LIPID PANEL FASTING Specimen Type: SERUM No comment entered. Ordering Provider: MONICA VERDUZCO Report Released Date/Time: Aug 08, 2024 10:54 AM Reporting Lab: [facility] [place] [address] [place] [address] Performing Lab: [facility] [address] [address] CHOLESTEROL 178 mg/dL TRIGLYCERIDE 97 mg/dL 0-150 LDL calculated 97 mg/dL 0-129 CHOL/HDL 2.9 HDL CHOLESTEROL 62 mg/dL H 40-60 Aug 08, 2024 10:59 AM [facility] BASIC METABOLIC PANEL (fasting) Specimen Type: SERUM No comment entered. Ordering Provider: MONICA VERDUZCO Report Released Date/Time: Aug 08, 2024 10:54 AM Reporting Lab: [address] [address] Performing Lab: [address] [address] UREA NITROGEN 22 mg/dL 7-25 GLUCOSE 91 mg/dL 65-100 SODIUM 138 mmol/L 135-145 POTASSIUM 4.8 mmol/L 3.5-5.0 CHLORIDE 105 mmol/L 100-110 CO2 25 meq/L 20-30 CREATININE, Serum 0.99 mg/dL 0.50-1.40 eGFR(CKD-EPI 2020) 77 mL/min >60 Aug 08, 2024 10:59 AM [facility] LIVER FUNCTION Specimen Type: SERUM No comment entered. Ordering Provider: MONICA VERDUZCO Report Released Date/Time: Aug 08, 2024 10:54 AM Reporting Lab: [address] [address] Performing Lab: [address] [address] PROTEIN,TOTAL 6.7 g/dL 6.0-8.3 ALBUMIN 3.4 g/dL L 3.5-5.0 ALKALINE PHOSPHATASE 151 U/L H 40-150 AST 17 U/L 5-34 ALT 8 U/L BILIRUBIN, TOTAL 0.5 mg/dL 0.2-1.2 Aug 08, 2024 10:59 AM [facility] HEMOGLOBIN A1C PANEL Specimen Type: BLOOD Comment: [...] Aug 08, 2024 10:54 AM Reporting Lab: [facility] [address] [address] Performing Lab: [facility] TR[facility] [address] [address] HEMOGLOBIN A1C 5.2 4.0-5.6 Aug 08, 2024 10:59 AM [facility] TSH Specimen Type: SERUM No comment entered. Ordering Provider: MONICA VERDUZCO Report Released Date/Time: Aug 08, 2024 10:54 AM Reporting Lab: [facility] [address] [address] Performing Lab: [facility] [address] [address] TSH 1.93 u[IU]/mL 0.35-5.00 Aug 08, 2024 10:59 AM [facility] PSA Specimen Type: SERUM No comment entered. Ordering Provider: MONICA VERDUZCO Report Released Date/Time: Aug 08, 2024 10:54 AM Reporting Lab: [facility]TR[facility] [address] [address] Performing Lab: [facility]TR[facility] [address] [address] PSA 30.59 ng/mL H 0.00-4.00 Aug 08, 2024 10:59 AM [facility] CBC AND DIFF (AUTO) Specimen Type: BLOOD No comment entered. Ordering Provider: MONICA VERDUZCO Report Released Date/Time: Aug 08, 2024 10:54 AM Reporting Lab: [facility]TR[facility] [address] [address] Performing Lab: [facility]TR[facility] [address] [address] WBC 7.81 10*3/uL 4.50-11.00 RBC 4.88 10*6/uL [...] and tobacco- related health factors from the [place] facility where the Encounter took place. Current Smoking Status This section includes the most current smoking, or tobacco-related health factor, from the [place] facility where the Encounter took place. Date/Time Current Smoking Status Comment Facil ity May 31, 2024 10:00 AM [place]-TOBACCO NEVER USED [facility] Tobacco Use History This section includes a history of the smoking, or tobacco-related health factors, that were collected on or before the date of the Encounter. The data comes from the [place] facility where the Encounter took place. Date/Time Smoking Status/Tobacco Use Comment F acility Jun 23, 2023 09:00 AM VA-TOBACCO FORMER USER [facility] Jun 23, 2023 09:00 AM VA-TOBACCO QUIT 15 YRS OR MORE [facility] May 01, 2022 01:30 PM VA-TOBACCO FORMER USER [facility] May 01, 2022 01:30 PM VA-TOBACCO QUIT 15 YRS OR MORE [facility] Apr 15, 2021 03:00 PM VA-TOBACCO FORMER USER [facility] Apr 15, 2021 03:00 PM VA-TOBACCO QUIT 15 YRS OR MORE [facility] Oct 20, 2018 12:53 PM VA-TOBACCO FORMER USER [facility] Oct 20, 2018 12:53 PM VA-TOBACCO QUIT 15 YRS OR MORE [facility] Jul 03, 2017 10:33 AM QUIT TOBACCO USE > 7 YEARS AGO quit 25yrs ago [facility] February 13, 2016 08:46 AM LIFETIME NON-TOBACCO USER [facility] Advance Directives: All historical and current Section Date Range: From patient's date of to the date document was created. This section includes ALL of a patient's completed or amended [place] Advance and Rescinded Directives. The entries below indicate that a directive exists for the patient, but an actual copy is not included with this document. The data comes from all [facility]. Date Advance Directives Provider Source Apr 04, [...] AM CHEST CT W/O CONT: JAKE DUGAN [id number] -1945 M Exm Date: SEP 01, 2024@10:54 Req Phys: LUBA,NOLAN Pat Loc: CWM/SO/PACT 9 (Req'g Loc) Img Loc: NHM/CT Service: Unknown [place] [facility], [place] [address] (Case [id number] COMPLETE) CT THORAX W/O CONT (CT Detailed) CPT:54688 Reason for Study: LDCT Clinical History: lung CA screen/surveillance as per protocol Report Status: Verified Date Reported: SEP 01, 2024 Date Verified: SEP 01, 2024 Vehicle Service Agent E-Sig:/ES/STARR MCDANIEL JR Report: Study: Noncontrast CT [...] Primary Interpreting Staff: STARR MCDANIEL JR, Radiologist (Vehicle Service Agent) /STARR HERNANDEZ JR [place] CNT [facility] Aug 16, 2024 02:[address] ABDOMEN AND PELVIS WITH CONTRAST: JAKE DUGAN [id number] -1945 M [facility] Date: AUG 16, 2024@14:04 Req Phys: LUBA,NOLAN Pat Loc: CWM/SO/PACT 9 (Req'g Loc) Img Loc: NHM/CT Service: Unknown [place] [facility] [place] [address] (Case [id number] COMPLETE) CT ABDOMEN AND PELVIS WITH CONTRA(CT Detailed) CPT:84023 Contrast Media : Non-ionic Iodinated Reason for Study: prostate CA Clinical History: Report Status: Verified Date Reported: AUG 16, 2024 Date Verified: AUG 16, 2024 Vehicle Service Agent E-Sig: Report: CT ABDOMEN AND PELVIS WITH [...] tumor infiltration. READING PHYSICIAN: Kwabena Perez M.D. -[id number] 08/16/2024 20:18 [facility] Program [phone] (For Medical Practitioner Use Only) Attention Patients / Veterans: If you have questions or concerns about these test results, please contact your ordering provider or primary care team. Primary Diagnostic Code: POSSIBLE MALIGNANCY Primary Interpreting Staff: RADIOLOGY,OUTSIDE SERVICE, Staff Physician / RADIOLOGY,OUTSIDE SERVICE [facility] Pathology Reports: +/- 30 days of the [...] AM LR MICROBIOLOGY RE PORT: Reporting Lab: [facility] [CLIA# [id number]] [address] [place] [phone] Accession [UID]: [id number] [[id number]] Received: Aug 24, 2024@11:28 Collection sample: URINE CLEAN CATCH Collection date: Aug 24, 2024 11:28 Site/Specimen: URINE Provider: NOLAN VERDUZCO Comment on specimen: POSITIVE CULTURE RESULTS MAY NOT REPRESENT CLINICAL INFECTION. CONSIDER NEED FOR ANTIBIOTICS IN THE CONTEXT OF UTI SYMPTOMS. Test(s) ordered: URINE CULTURE(MWROX).......... completed: Aug 29, 2024 08:33 * BACTERIOLOGY FINAL REPORT => Aug 29, 2024 08:32 TECH CODE: [id number] CULTURE RESULTS: 1. KLEBSIELLA OXYTOCA/RAOULTELLA ORNITHINOLYTICA - [...] Performing Laboratory: Klebsiella Oxytoca/raoultella Ornithinolytica Performed By: [facility] [CLIA# [id number]] [address] [place] [phone] Pseudomonas Aeruginosa Performed By: [facility] [CLIA# [id number]] [address] [place] [address] Bact Report Remark #1 Performed By: [facility] [CLIA# [id number]] [address] [place] [phone] Bact Report Remark #2 Performed By: [facility] [CLIA# [id number]] [address] [place] [phone] ENRIQUETA FLORES Encounter Notes: All associated encounter [...] IMAGING REPORTS SUMMARY pg. 1 JAKE DUGAN [id number] : 1945 II - Imaging Impression (max 1 occurrence) Date Procedure CPT Status Case # 08/16/2024 CT ABDOMEN [place] PELVIS WITH [id number] Verified 109 CONTRAST 1. Findings suspicious for [...] tumor infiltration. READING PHYSICIAN: Kwabena Perez M.D. -[phone] 08/16/2024 20:18 [facility] National Teleradiology Program [phone] (For Medical Practitioner Use Only) Attention Patients / Veterans: If you have questions or concerns about these test results, please contact your ordering provider or primary care team. Discussed with staff. I'll break the unfortunate news after Thanksgiving. /mariana/ NOLAN VERDUZCO MD PHYSICIAN Signed: 08/17/2024 08:38 NOLAN VERDUZCO [facility]
--- OUTSIDE RECORDS SUMMARY | 2024-09-29 12:05 | XMS_ITS | Encounter Summary ---
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 Organization [facility] [place] Address [address] [place] [id number] Care Team Providers Care Tree Topper Name Role Phone ROWENA ROY Primary Care Provider [facility] Insurance Providers: All historical [...] Relationship to Policy Segal [facility] MEDICARE ADVANTAGE [place] IN[place] IDUAL - [place] Sep 21, 2023 [id number] [phone] GENET DUGAN S [facility] MEDICARE [facility] ([facility]) Sep 21, 2023 [id number] [phone] GENET DUGAN S PATIENT HUSKY MEDICAID HUSKY PLAN May 22, 2022 MEDICAI D [id number] GENET DUGAN S PATIENT MEDICARE ([facility]) MEDICARE () PART B May 22, 2022 PART B [id number] GENET DUGAN S PATIENT MEDICARE (WNR) MEDICARE () PART A Feb 19, 2009 PART A [id number] [phone] GENET DUGAN S PATIENT MEDICARE PART D (WNR) MEDICARE (M) PART D Jul 22, 2022 PART D [id number] GENET DUGAN S PATIENT [facility] (WNR) MEDICARE ADVANTAGE [facility] (WNR) Sep 21, 2022 [id number] GENET DUGAN S PATIENT [facility] (WNR) MEDICARE ADVANTAGE [facility] (WNR) Sep 21, 2022 [id number] [phone] GENET DUGAN PATIENT Selected Encounter This section includes the information on record at [place] for the Encounter. Date/Time Encounter Type Encounter Description Reason Provider Source Aug 09, 2024 09:00 AM OFFICE O/P EST MOD 30 MIN PRIMARY CARE/MEDICINE ICD-10-CM N50.9 Disorder of male genital organs, unspecified LUBA,APOLI MARLIN IHE Encounter Template Text not used by [place] Assessments - Encounter Diagnoses This section includes the primary and secondary diagnoses documented for the Encounter. Date/Time Primary/Secondary Diagnosis Diagnosis Name Provider Source Aug 09, 2024 09:52 AM PRIMARY Disorder of male genital organs, unspecified LUBA,MONICA DAUGHERTY CEASAR Aug 09, 2024 09:52 AM SECONDARY Carcinoma in situ of prostate [facility] Plan of Treatment: Future Appointments (+ 6 months) and Future Tests (+/- 45 days) The Plan of Treatment section includes future care activities for the patient from all [place] treatmentfacilities. This section includes future appointments and [...] 16, 2024 12:00 PM AMBULATORY - NONE [place] [facility] [place] [facility] Aug 22, 2024 11:20 AM AMBULATORY - MEDICINE [place] [facility] [place] [facility] Aug 24, 2024 11:00 AM AMBULATORY - MEDICINE [facility] Sep 01, 2024 11:00 AM AMBULATORY - NONE [place] [facility] [place] [facility] Sep 07, 2024 03:00 PM AMBULATORY - MEDICINE [place] [facility] [place] [facility] Dec 13, 2024 01:30 PM [facility] Jan 02, 2025 10:00 AM AMBULATORY - MEDICINE [facility] Active, Pending, and Scheduled Orders This section includes a listing of several types of active, pending, and scheduled orders, including clinic medications orders, diagnostic test orders, procedure orders and consult orders; where the start date of the order is 45 days before the date of the Encounter or 45 days after the date of theEncounter. The data comes from all [place] treatment facilities. Test Date/Time Test Type Test Details Facility Name Aug 09, 2024 09:40 AM Consult Order [facility]-UROLOGY Cons Stereotype [employer] [facility] Lab Results: +/- 30 days of the encounter This section includes the Chemistry and Hematology Lab Results on record with [place] for the patient. Radiology Reports and Pathology Reports are provided separately, in subsequent sections. Lab Results This section contains the Chemistry/Hematology Results that were resulted 30 days before or 30 daysafter the date of the Encounter. Date/Time Source Result Type Result - Unit Interpretation Reference Range Comment Aug 24, 2024 11:28 AM [facility] CBC AND DIFF (AUTO) Specimen Type: BLOOD No comment entered. Ordering Provider: ROWENA ROY Report Released Date/Time: Aug 24, 2024 11:07 AM Reporting Lab: [facility] [address] [facility] [address] Performing Lab: [address] [address] WBC 8.84 10*3/uL 4.50-11.00 RBC 4.72 10*6/uL [...] 10*3/uL 0.00-0.00 Aug 24, 2024 11:28 AM [facility] MICROSCOPIC AUTOMATED, URINE Specimen Type: URINE Comment: If Glucose = >500 and Ketones are positive, please alert the Physician. Ordering Provider: MONICA VERDUZCO Report Released Date/Time: Aug 09, 2024 09:43 AM Reporting Lab: [facility] [address] [facility] [address] Performing Lab: [facility] [address] [facility] [address] UA WBC 0-5 /[HPF] 0-5 UA BACTERIA 1+ /[HPF] NoneObs UA TRIPLE PHOSPHATE CRYSTALS MODERATE /[HPF] Not Established UA RBC 6-10 /[HPF] H 0-3 Aug 24, 2024 11:28 AM [facility] URINALYSIS Specimen Type: URINE Comment: If Glucose = >500 and Ketones are positive, please alert the Physician. Ordering Provider: MONICA VERDUZCO Report Released Date/Time: Aug 09, 2024 09:43 AM Reporting Lab: [facility] [address] [facility] [address] Performing Lab: [address] [address] UA COLOR Light-Brown Yellow UA APPEARANCE Turbid Clear UA GLUCOSE Normal mg/dL Negative UA KETONES NEGATIVE mg/dL Negative UA BLOOD LARGE mg/dL Negative UA PROTEIN 100 mg/dL Negative UA NITRITE NEGATIVE mg/dL Negative UA BILIRUBIN NEGATIVE mg/dL Negative UA SPECIFIC GRAVITY 1.007 L 1.016-1.022 UA pH 8.5 5.0-9.0 UA UROBILINOGEN Normal mg/dL <2.0 UA LEUKOCYTE LARGE Negative Aug 08, 2024 10:59 AM [facility] VITAMIN D 25-OH (Therapy monitor) Specimen [...] For additional information, please refer to [email or web address] (This link is being provided for informational/ educational purposes only.) This test was developed and its analytical performance characteristics have been determined by [facility]. It has not been cleared or approved by the U.S. Food and Drug Administration. This assay has been validated pursuant to the CLIA regulations and is used for clinical purposes. This test was developed and its analytical performance characteristics have been determined by [employer] [place], [place]. It has not been cleared or approved by the U.S. Food and Drug Administration. This assay has been validated pursuant to the CLIA regulations and is used for clinical purposes. Test Performed by [facility], [facility] [place], [address] [place] [address] Dov Bahena M.D., Ph.D., Director of Laboratories , CLIA [id number] TEST PERFORMED AT: , Ordering Provider: MONICA VERDUZCO Report Released Date/Time: Aug 08, 2024 10:54 AM Reporting Lab: [address] [address] Performing Lab: [facility] [address] [facility], [address] [facility] [address] VITAMIN D, 25-OH, TOTAL 51 ng/mL 30-100 VITAMIN D, 25-OH, D3 51 ng/mL VITAMIN D, 25-OH, D2 <4 ng/mL Aug 08, 2024 10:59 AM [facility] FOLATE (WROX) Specimen Type: SERUM No comment entered. Ordering Provider: MONICA VERDUZCO Report Released Date/Time: Aug 08, 2024 10:54 AM Reporting Lab: [facility] [address] [facility] [address] Performing Lab: [facility] [address] [facility] [address] FOLATE (WROX) 4.07 ng/mL L >5.2 Aug 08, 2024 10:59 AM [facility] MICROALBUMIN CREATININE RATIO PANEL Specimen Type: URINE No comment entered. Ordering Provider: MONICA VERDUZCO Report Released Date/Time: Aug 08, 2024 10:54 AM Reporting Lab: [facility] [address] [facility] [address] Performing Lab: [facility] [address] [facility] [address] MICROALBUMIN/ CREATININE RATIO 354.2 mg/g H 0-29.9 MICROALBUMIN, QUANTITATIVE 103.3 mg/dL RR UNAVAIL CREATININE URINE 291.68 mg/dL Aug 08, 2024 10:59 AM [facility] VITAMIN B12 Specimen Type: SERUM No comment entered. Ordering Provider: MONICA VERDUZCO Report Released Date/Time: Aug 08, 2024 10:54 AM Reporting Lab[facility] [address] [facility] [address] Performing Lab: [facility] [address] [facility] [address] VITAMIN B12 1849 pg/mL H 200-900 Aug 08, 2024 10:59 AM [facility] LIPID PANEL FASTING Specimen Type: SERUM No comment entered. Ordering Provider: MONICA VERDUZCO Report Released Date/Time: Aug 08, 2024 10:54 AM Reporting Lab: [facility] [address] [facility] [address] Performing Lab: [facility] [address] [facility] [address] CHOLESTEROL 178 mg/dL TRIGLYCERIDE 97 mg/dL 0-150 LDL calculated 97 mg/dL 0-129 CHOL/HDL 2.9 HDL CHOLESTEROL 62 mg/dL H 40-60 Aug 08, 2024 10:59 AM [facility] BASIC METABOLIC PANEL (fasting) Specimen Type: SERUM No comment entered. Ordering Provider: MONICA VERDUZCO Report Released Date/Time: Aug 08, 2024 10:54 AM Reporting Lab: [facility] [address] [facility] [address] Performing Lab: [address] [address] UREA NITROGEN 22 mg/dL 7-25 GLUCOSE 91 mg/dL 65-100 SODIUM 138 mmol/L 135-145 POTASSIUM 4.8 mmol/L 3.5-5.0 CHLORIDE 105 mmol/L 100-110 CO2 25 meq/L 20-30 CREATININE, Serum 0.99 mg/dL 0.50-1.40 eGFR(CKD-EPI 2020) 77 mL/min >60 Aug 08, 2024 10:59 AM [facility] HEMOGLOBIN A1C PANEL Specimen Type: BLOOD [...] Aug 08, 2024 10:54 AM Reporting Lab: [address] [address] Performing Lab: [address] [address] HEMOGLOBIN A1C 5.2 4.0-5.6 Aug 08, 2024 10:59 AM [facility] LIVER FUNCTION Specimen Type: SERUM No comment entered. Ordering Provider: MONICA VERDUZCO Report Released Date/Time: Aug 08, 2024 10:54 AM Reporting Lab: [facility] [address] [facility] [address] Performing Lab: [facility] [address] [facility] [address] PROTEIN,TOTAL 6.7 g/dL 6.0-8.3 ALBUMIN 3.4 g/dL L 3.5-5.0 ALKALINE PHOSPHATASE 151 U/L H 40-150 AST 17 U/L 5-34 ALT 8 U/L BILIRUBIN, TOTAL 0.5 mg/dL 0.2-1.2 Aug 08, 2024 10:59 AM [facility] TSH Specimen Type: SERUM No comment entered. Ordering Provider: MONICA VERDUZCO Report Released Date/Time: Aug 08, 2024 10:54 AM Reporting Lab: [facility] [address] [facility] [address] Performing Lab: [facility] [address] TSH 1.93 u[IU]/mL 0.35-5.00 Aug 08, 2024 10:59 AM [facility] PSA Specimen Type: SERUM No comment entered. Ordering Provider: MONICA VERDUZCO Report Released Date/Time: Aug 08, 2024 10:54 AM Reporting Lab: [facility]ITAL[facility] [address] [facility] [address] Performing Lab: [facility]TR[facility]ITALUS[facility] [address] [address] PSA 30.59 ng/mL H 0.00-4.00 Aug 08, 2024 10:59 AM [facility] CBC AND DIFF (AUTO) Specimen Type: BLOOD No comment entered. Ordering Provider: MONICA VERDUZCO Report Released Date/Time: Aug 08, 2024 10:54 AM Reporting Lab: [facility] [address] [facility] [address] Performing Lab: [facility] [address] [facility] [address] WBC 7.81 10*3/uL 4.50-11.00 RBC 4.88 10*6/uL [...] 31, 2024 10:00 AM VA-TOBACCO NEVER USED [facility] Tobacco Use History This section includes a history of the smoking, or tobacco-related health factors, that were collected on or before the date of the Encounter. The data comes from the [place] facility where the Encounter took place. Date/Time Smoking Status/Tobacco Use Comment F acility Jun 23, 2023 09:00 AM VA-TOBACCO FORMER USER [facility] Jun 23, 2023 09:00 AM VA-TOBACCO QUIT 15 YRS OR MORE [facility] May 01, 2022 01:30 PM VA-TOBACCO FORMER USER [facility] May 01, 2022 01:30 PM VA-TOBACCO QUIT 15 YRS OR MORE [facility] Apr 15, 2021 03:00 PM VA-TOBACCO FORMER USER [facility] Apr 15, 2021 03:00 PM VA-TOBACCO QUIT 15 YRS OR MORE [facility] Oct 20, 2018 12:53 PM VA-TOBACCO FORMER USER [facility] Oct 20, 2018 12:53 PM VA-TOBACCO QUIT 15 YRS OR MORE [facility] Jul 03, 2017 10:33 AM QUIT TOBACCO USE > 7 YEARS AGO quit 25yrs ago [facility] February 13, 2016 08:46 AM LIFETIME NON-TOBACCO USER [facility] Advance Directives: All historical and current [...] the Encounter. The data comes from all [place] treatment facilities. Date/Time Radiology Report Provider Source Sep 01, 2024 10:[address] W/O CONT: JAKE DUGAN [id number] -[id number] M Exm Date: SEP 01, 2024@10:54 Req Phys: LUBA,NOLAN Pat Loc: CWM/SO/PACT 9 (Req'g Loc) Img Loc: NHM/CT Service: Unknown [facility]ALSaul M[facility]AE [facility] [place] [address] (Case [id number] COMPLETE) CT THORAX W/O CONT (CT Detailed) CPT:01390 Reason for Study: LDCT Clinical History: lung CA screen/surveillance as per protocol Report Status: Verified Date Reported: SEP 01, 2024 Date Verified: SEP 01, 2024 Hr Coordinator E-Sig:/ES/STARR MCDANIEL JR Report: Study: Noncontrast CT [...] Primary Interpreting Staff: STARR MCDANIEL JR, Radiologist (Hr Coordinator) /STARR HERNANDEZ JR [facility] [place] [facility] Aug 16, 2024 02:[address] ABDOMEN AND PELVIS WITH CONTRAST: DUGANJAKE SANCHEZ [id number] -1945 M Exm Date: AUG 16, 2024@14:04 Req Phys: LUBA,NOLAN Pat Loc: CWM/SO/PACT 9 (Req'g Loc) Img Loc: NH/CT Service: Unknown [place] [facility] [place] [facility] [place] [id number] (Case [id number] COMPLETE) CT ABDOMEN AND PELVIS WITH CONTRA(CT Detailed) CPT:46074 Contrast Media : Non-ionic Iodinated Reason for Study: prostate CA Clinical History: Report Status: Verified Date Reported: AUG 16, 2024 Date Verified: AUG 16, 2024 Hr Coordinator E-Sig: Report: CT ABDOMEN AND PELVIS WITH CONTRAST HISTORY: prostate CA COMPARISON: 03/14/2024 TECHNIQUE: CT of the abdomen and pelvis with multiplanar reformats was performed at the local [facility] facility. A contrast-enhanced series was obtained in the portal venous phase. 350 images were received by the [place] National Teleradiology Program (NTP) for interpretation. RADIATION [...] tumor infiltration. READING PHYSICIAN: Kwabena Perez M.D. -[id number] 08/16/2024 20:18 [facility] National Teleradiology Program [phone] (For Medical Practitioner Use Only) Attention Patients / Veterans: If you have questions or concerns about these test results, please contact your ordering provider or primary care team. Primary Diagnostic Code: POSSIBLE MALIGNANCY Primary Interpreting Staff: RADIOLOGY,OUTSIDE SERVICE, Staff Physician / RADIOLOGY,OUTSIDE SERVICE [facility] Pathology Reports: +/- 30 days of [...] the Encounter. The data comes from all [place] treatment facilities. Date/Time Pathology Report Provider Source Aug 24, 2024 11:28 AM LR MICROBIOLOGY RE PORT: Reporting Lab: [facility] [CLIA# [id number]] [address] [place] [address] Accession [UID]: [id number] [[id number]] Received: Aug 24, 2024@11:28 Collection sample: URINE CLEAN CATCH Collection date: Aug 24, 2024 11:28 Site/Specimen: URINE Provider: NOLAN VERDUZCO Comment on specimen: POSITIVE CULTURE RESULTS MAY NOT REPRESENT CLINICAL INFECTION. CONSIDER NEED FOR ANTIBIOTICS IN THE CONTEXT OF UTI SYMPTOMS. Test(s) ordered: URINE CULTURE(MWROX).......... completed: Aug 29, 2024 08:33 * BACTERIOLOGY FINAL REPORT => Aug 29, 2024 08:32 TECH CODE: [id number] CULTURE RESULTS: 1. KLEBSIELLA OXYTOCA/RAOULTELLA ORNITHINOLYTICA - [...] Klebsiella Oxytoca/raoultella Ornithinolytica Performed By: [facility] [CLIA# [id number]] [address] [place] [address] Pseudomonas Aeruginosa Performed By: [facility] [CLIA# [id number]] [address] [place] [address] Bact Report Remark #1 Performed By: [facility] [CLIA# [id number]] [address] [place] [address] Bact Report Remark #2 Performed By: [facility] [CLIA# [id number]] [address] [place] [address] ENRIQUETA FLORES [facility] Encounter Notes: All associated encounter notes [...] LPN LPN Signed: 08/09/2024 09:59 ISABEL FREDERICK [facility] Aug 09, 2024 09:40 AM PHYSICIAN NOTE: LOCAL TITLE: MD NOTE [...] surgery for this condition. Though he has [employer], he does not have a PCP and [...] MD PHYSICIAN Signed: 08/09/2024 09:52 NOLAN VERDUZCO [facility]
--- OUTSIDE RECORDS SUMMARY | 2024-09-29 12:05 | XMS_ITS | Encounter Summary ---
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 Organization [facility] [place] Address [address] [place] [id number] Care Team Providers Care Mannequin Molder Name Role Phone ROWENA ROY Primary [...] Policy Segal's Name Patient's Relationship to Policy Sgeal [facility] ([facility] MEDIC[facility] ADVANTAGE [place] IN[place] IDUAL - [place] Sep 21, 2023 [id number] [phone] GENET DUGAN S [facility]) [facility]IC[facility] ADVANTAGE [facility] ([facility]) Sep 21, 2023 [id number] [phone] DUGAN,GENET S PATIENT H[place]KY MEDICAID [place] PLAN May 22, 2022 MEDICAI D [id number] MARVIN DUGANI S PATIENT MEDICARE (WN) MEDICARE (M) PART B May 22, 2022 PART B [id number] DUGAN,GENET S PATIENT MEDICARE (WNR) MEDICARE (M) PART A Feb 19, 2009 PART A [id number] [phone] DUGAN,GENET S PATIENT MEDICARE PART D (WNR) MEDICARE (M) PART D Jul 22, 2022 PART D [id number] [phone] GENET DUGAN PATIENT [facility] (WNR) MEDICARE ADVANTAGE [facility] (WNR) Sep 21, 2022 [id number] GENET DUGAN PATIENT [facility] MCR (WNR) MEDICARE ADVANTAGE MCR (WNR) Sep 21, 2022 [id number] GENET DUGAN PATIENT Selected Encounter This section [...] - MEDICINE IN [place] [facility] [place] [facility] Aug 16, 2024 12:00 PM AMBULATORY - NONE IN [facility] [place] [facility] Aug 22, 2024 11:20 AM AMBULATORY - MEDICINE [place] [facility] [place] [facility] Aug 24, 2024 11:00 AM AMBULATORY - [facility] Sep 01, 2024 11:00 AM AMBULATORY - NONE [place] [facility] [place] [facility] Sep 07, 2024 03:00 PM AMBULATORY - MEDICINE IN [facility] [place] [facility] Dec 13, 2024 01:30 PM AMBULATORY - [facility] Jan 02, 2025 10:00 AM AMBULATORY - MEDICINE [facility] [place] [facility] Active, Pending, and Scheduled Orders This [...] 09:40 AM Consult Order COMMUNITY CARE-UROLOGY Cons [place] Engineer's Choice [facility] Lab Results: +/- 30 days of [...] Range Comment Aug 08, 2024 10:59 AM [facility] VITAMIN D 25-OH (Therapy monitor) Specimen [...] For additional information, please refer to [email or web address] [email or web address] C Systems/[email or web address] (This link is being provided for informational/ educational purposes only.) This test was developed and its analytical performance characteristics have been determined by [facility] [place] It has not been cleared or approved by the U.S. Food and Drug Administration. This assay has been validated pursuant to the CLIA regulations and is used for clinical purposes. This test was developed and its analytical performance characteristics have been determined by [facility] [place] It has not been cleared or approved by the U.S. Food and Drug Administration. This assay has been validated pursuant to the CLIA regulations and is used for clinical purposes. Test Performed by [facility], [employer] [place], [address] [place], [place] Dov Bahena M.D., Ph.D., Director of Laboratories , CLIA [id number] TEST PERFORMED AT: , Ordering Provider: HORTENCIA VERDUZCO Report Released Date/Time: Aug 08, 2024 10:54 AM Reporting Lab: [facility] [address] [address] Performing Lab: [facility] [address] [facility], [address] [facility] [address] VITAMIN D, 25-OH, TOTAL 51 ng/mL 30-100 VITAMIN D, 25-OH, D3 51 ng/mL VITAMIN D, 25-OH, D2 <4 ng/mL Aug 08, 2024 10:59 AM [facility] FOLATE (WROX) Specimen Type: SERUM No comment entered. Ordering Provider: HORTENCIA VERDUZCO Report Released Date/Time: Aug 08, 2024 10:54 AM Reporting Lab: [facility] [address] [facility] [address] Performing Lab: [facility] [address] [address] FOLATE (WROX) 4.07 ng/mL L >5.2 Aug 08, 2024 10:59 AM [facility] MICROALBUMIN CREATININE RATIO PANEL Specimen Type: URINE No comment entered. Ordering Provider: HORTENCIA VERDUZCO Report Released Date/Time: Aug 08, 2024 10:54 AM Reporting Lab: [facility] [address] [facility] [address] Performing Lab: [facility] [address] [facility] [address] MICROALBUMIN/ CREATININE RATIO 354.2 mg/g H 0-29.9 MICROALBUMIN, QUANTITATIVE 103.3 mg/dL RR UNAVAIL CREATININE URINE 291.68 mg/dL Aug 08, 2024 10:59 AM [facility] VITAMIN B12 Specimen Type: SERUM No comment entered. Ordering Provider: HORTENCIA VERDUZCO GRACIELA Report Released Date/Time: Aug 08, 2024 10:54 AM Reporting Lab: [facility] [address] [facility] [address] Performing Lab: [facility] [address] [address] VITAMIN B12 1849 pg/mL H 200-900 Aug 08, 2024 10:59 AM [facility] LIPID PANEL FASTING Specimen Type: SERUM No comment entered. Ordering Provider: HORTENCIA VERDUZCO Report Released Date/Time: Aug 08, 2024 10:54 AM Reporting Lab: [facility] [address] [facility] [address] Performing Lab: [facility] [address] [facility] [address] CHOLESTEROL 178 mg/dL TRIGLYCERIDE 97 mg/dL 0-150 LDL calculated 97 mg/dL 0-129 CHOL/HDL 2.9 HDL CHOLESTEROL 62 mg/dL H 40-60 Aug 08, 2024 10:59 AM [facility] BASIC METABOLIC PANEL (fasting) Specimen Type: SERUM No comment entered. Ordering Provider: HORTENCIA VERDUZCO Report Released Date/Time: Aug 08, 2024 10:54 AM Reporting Lab: [facility] [address] [facility] [address] Performing Lab: [facility] [address] [address] UREA NITROGEN 22 mg/dL 7-25 GLUCOSE 91 mg/dL 65-100 SODIUM 138 mmol/L 135-145 POTASSIUM 4.8 mmol/L 3.5-5.0 CHLORIDE 105 mmol/L 100-110 CO2 25 meq/L 20-30 CREATININE, Serum 0.99 mg/dL 0.50-1.40 eGFR(CKD-EPI 2020) 77 mL/min >60 Aug 08, 2024 10:59 AM [facility] HEMOGLOBIN A1C PANEL Specimen Type: BLOOD [...] Aug 08, 2024 10:54 AM Reporting Lab: [place] [facility] [place] [facility] [address] [facility] [address] Performing Lab: [place] [facility] [place] [facility] [address] [facility] [address] HEMOGLOBIN A1C 5.2 4.0-5.6 Aug 08, 2024 10:59 AM [facility] LIVER FUNCTION Specimen Type: SERUM No comment entered. Ordering Provider: HORTENCIA VERDUZCO GRACIELA Report Released Date/Time: Aug 08, 2024 10:54 AM Reporting Lab: [place] [facility] [place] [facility] [address] [facility] [address] Performing Lab: [facility] [place] [facility] [address] [address] PROTEIN,TOTAL 6.7 g/dL 6.0-8.3 ALBUMIN 3.4 g/dL L 3.5-5.0 ALKALINE PHOSPHATASE 151 U/L H 40-150 AST 17 U/L 5-34 ALT 8 U/L BILIRUBIN, TOTAL 0.5 mg/dL 0.2-1.2 Aug 08, 2024 10:59 AM [facility] TSH Specimen Type: SERUM No comment entered. Ordering Provider: HORTENCIA VERDUZCO Report Released Date/Time: Aug 08, 2024 10:54 AM Reporting Lab: [place] [facility] [place] [facility] [address] [facility] [address] Performing Lab: [place] [facility] [facility] [address] [facility] [address] TSH 1.93 u[IU]/mL 0.35-5.00 Aug 08, 2024 10:59 AM [facility] PSA Specimen Type: SERUM No comment entered. Ordering Provider: HORTENCIA VERDUZCO GRACIELA Report Released Date/Time: Aug 08, 2024 10:54 AM Reporting Lab: [place] [facility] [place] [facility] [address] [facility] [address] Performing Lab: IN [facility] [address] [address] PSA 30.59 ng/mL H 0.00-4.00 Aug 08, 2024 10:59 AM [facility] CBC AND DIFF (AUTO) Specimen Type: BLOOD No comment entered. Ordering Provider: HORTENCIA VERDUZCO Report Released Date/Time: Aug 08, 2024 10:54 AM Reporting Lab: [facility] [address] [facility] [address] Performing Lab: [facility] [address] [facility] [address] WBC 7.81 10*3/uL 4.50-11.00 RBC 4.88 10*6/uL [...] ABDOMEN AND PELVIS WITH CONTRAST: JAKE DUGAN [id number] -1945 Ex Date: AUG 16, 2024@14:04 Req Phys: NOLAN VERDUZCO Pat Loc: C[facility]/SO/PACT 9 (Req'g Loc) Img Loc: [place]/CT Service: [place] [address] (Case [id number] COMPLETE) CT ABDOMEN AND PELVIS WITH CONTRA(CT Detailed) CPT:01196 Contrast Media : Non-ionic Iodinated Reason for Study: prostate CA Clinical History: Report Status: Verified Date Reported: AUG 16, 2024 Date Verified: AUG 16, 2024 Parish Nurse E-Sig: Report: CT ABDOMEN AND PELVIS WITH [...] tumor infiltration. READING PHYSICIAN: Kwabena Perez M.D. -[phone] 08/16/2024 20:18 [facility] [phone] (For Medical Practitioner Use Only) Attention Patients / Veterans: If you have questions or concerns about these test results, please contact your ordering provider or primary care team. Primary Diagnostic Code: POSSIBLE MALIGNANCY Primary Interpreting Staff: RADIOLOGY,OUTSIDE SERVICE, Staff Physician / RADIOLOGY,OUTSIDE SERVICE [facility] Encounter Notes: All associated encounter notes This section contains the clinical notes associated to the Encounter. Date/Time Encounter Note(s) Provider Source Jul 20, 2024 12:00 AM NONVA CONSULT: LOCAL TITLE: COMMUNITY CARE-CONSULT RESULT NOTE STANDARD TITLE: NONVA CONSULT DATE OF NOTE: JUL 20, 2024 ENTRY DATE: AUG 13, 2024@15:28:24 AUTHOR: PING GUERIN EXP COSIGNER: URGENCY: STATUS: COMPLETED VistA Imaging - Scanned Document SCANNED DOCUMENT SIGNATURE NOT REQUIRED Electronically Filed: 08/13/2024 by: PING SOLER [facility]
--- OUTSIDE RECORDS SUMMARY | 2024-09-29 12:06 | XMS_ITS | Encounter Summary ---
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 Address [address] [place] [address] Care Team Providers Care Compressor House Operator Name Role Phone ROWENA ROY Primary [...] Name Patient's Relationship to Policy Segal [facility] (R) MEDICARE ADVANTAGE [place] IN[place] IDUAL - [place] Sep 21, 2023 [id number] [phone] GENET DUGAN S [facility]IENT [facility] Sep 21, 2023 [id number] [phone] DUGAN,GENET S PATIENT [place] MEDICAID [place] PLAN May 22, 2022 MEDICAI D [id number] MARVIN DUGANI S PATIENT MEDICARE (WN) MEDICARE (M) PART B May 22, 2022 PART B [id number] DUGAN,GENET S PATIENT MEDICARE (WNR) MEDICARE (M) PART A Feb 19, 2009 PART A [id number] DUGAN,GENET S PATIENT MEDICARE PART D (WNR) MEDICARE (M) PART D Jul 22, 2022 PART D [id number] GENET DUGAN PATIENT [facility] (WNR) MEDICARE ADVANTAGE [facility] (WNR) Sep 21, 2022 [id number] [phone] GENET DUGAN S PATIENT [facility] MCR (WNR) MEDICARE ADVANTAGE MCR (WNR) Sep 21, 2022 [id number] GENET DUGAN PATIENT Selected Encounter This [...] activities for the patient from all [place] [facility] This section includes future appointments and future [...] 01, 2024 11:00 AM [facility] Sep 07, 2024 03:00 PM AMBULATORY - MEDICINE [facility] Dec 13, 2024 01:30 PM AMBULATORY - MEDICINE [facility] Jan 02, 2025 10:00 AM AMBULATORY - MEDICINE [facility] Active, Pending, and Scheduled Orders This section includes a listing of several types of active, pending, and scheduled orders, including clinic medications orders, diagnostic test orders, procedure orders and consult orders; where the start date of the order is 45 days before the date of the Encounter or 45 days after the date of theEncounter. The data comes from all [place] treatment [facility]. Test Date/Time Test Type Test Details Facility Name Aug 09, 2024 09:40 AM Consult Order COMMUNITY CARE-UROLOGY Cons Manager Environmental Health's Choice [facility] Lab Results: +/- 30 days of [...] Range Comment Aug 24, 2024 11:28 AM [place] CBC AND DIFF (AUTO) Specimen Type: BLOOD No comment entered. Ordering Provider: ROWENA ROY Report Released Date/Time: Aug 24, 2024 11:07 AM Reporting Lab: [facility] [address] [facility] [address] Performing Lab: [facility] [address] [facility] [address] WBC 8.84 10*3/uL 4.50-11.00 RBC 4.72 10*6/uL [...] 10*3/uL 0.00-0.00 Aug 24, 2024 11:28 AM [facility] MICROSCOPIC AUTOMATED, URINE Specimen Type: URINE Comment: If Glucose = >500 and Ketones are positive, please alert the Physician. Ordering Provider: MONICA VERDUZCO Report Released Date/Time: Aug 09, 2024 09:43 AM Reporting Lab: [facility] [address] [facility] [address] Performing Lab: [facility] [address] [facility] [address] UA WBC 0-5 /[HPF] 0-5 UA BACTERIA 1+ /[HPF] NoneObs UA TRIPLE PHOSPHATE CRYSTALS MODERATE /[HPF] Not Established UA RBC 6-10 /[HPF] H 0-3 Aug 24, 2024 11:28 AM [facility] URINALYSIS Specimen Type: URINE Comment: If Glucose = >500 and Ketones are positive, please alert the Physician. Ordering Provider: MONICA VERDUZCO Report Released Date/Time: Aug 09, 2024 09:43 AM Reporting Lab: [facility] [address] [facility] [address] Performing Lab: [address] [address] UA COLOR Light-Brown Yellow UA APPEARANCE Turbid Clear UA GLUCOSE Normal mg/dL Negative UA KETONES NEGATIVE mg/dL Negative UA BLOOD LARGE mg/dL Negative UA PROTEIN 100 mg/dL Negative UA NITRITE NEGATIVE mg/dL Negative UA BILIRUBIN NEGATIVE mg/dL Negative UA SPECIFIC GRAVITY 1.007 L 1.016-1.022 UA pH 8.5 5.0-9.0 UA UROBILINOGEN Normal mg/dL <2.0 UA LEUKOCYTE LARGE Negative Aug 08, 2024 10:59 AM [facility] VITAMIN D 25-OH (Therapy monitor) Specimen Type: [...] For additional information, please refer to http://educatio n.[employer].[facility]/faq/FAQ 199 (This link is being provided for informational/ educational purposes only.) This test was developed and its analytical performance characteristics have been determined by [employer] [place], [place]. It has not been cleared or approved by the U.S. Food and Drug Administration. This assay has been validated pursuant to the CLIA regulations and is used for clinical purposes. This test was developed and its analytical performance characteristics have been determined by [employer] [place], [place]. It has not been cleared or approved by the U.S. Food and Drug Administration. This assay has been validated pursuant to the CLIA regulations and is used for clinical purposes. Test Performed by [facility] [employer] [facility], [address] [place] [address] Dov Bahena M.D., Ph.D., Director of Laboratories , CLIA [id number] TEST PERFORMED AT: , Ordering Provider: MONICA VERDUZCO Report Released Date/Time: Aug 08, 2024 10:54 AM Reporting Lab: [facility] [address] [facility] [address] Performing Lab: [facility] [address] [address] VITAMIN D, 25-OH, TOTAL 51 ng/mL 30-100 VITAMIN D, 25-OH, D3 51 ng/mL VITAMIN D, 25-OH, D2 <4 ng/mL Aug 08, 2024 10:59 AM [facility] FOLATE (WROX) Specimen Type: SERUM No comment entered. Ordering Provider: MONICA VERDUZCO Report Released Date/Time: Aug 08, 2024 10:54 AM Reporting Lab: [facility] [address] [facility] [address] Performing Lab: [facility] [address] [facility] [address] FOLATE (WROX) 4.07 ng/mL L >5.2 Aug 08, 2024 10:59 AM [facility] MICROALBUMIN CREATININE RATIO PANEL Specimen Type: URINE No comment entered. Ordering Provider: MONICA VERDUZCO Report Released Date/Time: Aug 08, 2024 10:54 AM Reporting Lab: [facility] [address] [facility] [address] Performing Lab: [facility] [address] [facility] [address] MICROALBUMIN/ CREATININE RATIO 354.2 mg/g H 0-29.9 MICROALBUMIN, QUANTITATIVE 103.3 mg/dL RR UNAVAIL CREATININE URINE 291.68 mg/dL Aug 08, 2024 10:59 AM [facility] VITAMIN B12 Specimen Type: SERUM No comment entered. Ordering Provider: MONICA VERDUZCO Report Released Date/Time: Aug 08, 2024 10:54 AM Reporting Lab: [facility] [address] [facility] [address] Performing Lab: [facility] [address] [facility] [address] VITAMIN B12 1849 pg/mL H 200-900 Aug 08, 2024 10:59 AM [facility] LIPID PANEL FASTING Specimen Type: SERUM No comment entered. Ordering Provider: MONICA VERDUZCO Report Released Date/Time: Aug 08, 2024 10:54 AM Reporting Lab: [facility] [address] [facility] [address] Performing Lab: [facility] [address] [facility] [address] CHOLESTEROL 178 mg/dL TRIGLYCERIDE 97 mg/dL 0-150 LDL calculated 97 mg/dL 0-129 CHOL/HDL 2.9 HDL CHOLESTEROL 62 mg/dL H 40-60 Aug 08, 2024 10:59 AM [facility] BASIC METABOLIC PANEL (fasting) Specimen Type: SERUM No comment entered. Ordering Provider: MONICA VERDUZCO Report Released Date/Time: Aug 08, 2024 10:54 AM Reporting Lab: [facility] [address] [facility] [address] Performing Lab: [facility] [address] [facility] [address] UREA NITROGEN 22 mg/dL 7-25 GLUCOSE 91 mg/dL 65-100 SODIUM 138 mmol/L 135-145 POTASSIUM 4.8 mmol/L 3.5-5.0 CHLORIDE 105 mmol/L 100-110 CO2 25 meq/L 20-30 CREATININE, Serum 0.99 mg/dL 0.50-1.40 eGFR(CKD-EPI 2020) 77 mL/min >60 Aug 08, 2024 10:59 AM [facility] LIVER FUNCTION Specimen Type: SERUM No comment entered. Ordering Provider: MONICA VERDUZCO Report Released Date/Time: Aug 08, 2024 10:54 AM Reporting Lab: [facility] [address] [facility] [address] Performing Lab: [address] [address] PROTEIN,TOTAL 6.7 g/dL 6.0-8.3 ALBUMIN 3.4 g/dL L 3.5-5.0 ALKALINE PHOSPHATASE 151 U/L H 40-150 AST 17 U/L 5-34 ALT 8 U/L BILIRUBIN, TOTAL 0.5 mg/dL 0.2-1.2 Aug 08, 2024 10:59 AM [facility] HEMOGLOBIN A1C PANEL Specimen Type: BLOOD Comment: [...] Aug 08, 2024 10:54 AM Reporting Lab: [address] [address] Performing Lab: [facility] [address] [facility] [address] HEMOGLOBIN A1C 5.2 4.0-5.6 Aug 08, 2024 10:59 AM [place] [facility] [place] [facility] TSH Specimen Type: SERUM No comment entered. Ordering Provider: MONICA VERDUZCO Report Released Date/Time: Aug 08, 2024 10:54 AM Reporting Lab: [facility] [place] [facility] [address] [facility] [address] Performing Lab: [place] [facility] [place] [facility] [address] [facility] [address] TSH 1.93 u[IU]/mL 0.35-5.00 Aug 08, 2024 10:59 AM [facility] PSA Specimen Type: SERUM No comment entered. Ordering Provider: MONICA VERDUZCO Report Released Date/Time: Aug 08, 2024 10:54 AM Reporting Lab: [facility] [place] [facility] [address] [facility] [address] Performing Lab: [facility] [place] [facility] [address] [facility] [address] PSA 30.59 ng/mL H 0.00-4.00 Aug 08, 2024 10:59 AM [facility] CBC AND DIFF (AUTO) Specimen Type: BLOOD No comment entered. Ordering Provider: MONICA VERDUZCO Report Released Date/Time: Aug 08, 2024 10:54 AM Reporting Lab: [facility] [place] [facility] [address] [facility] [address] Performing Lab: [facility] [place] [address] [address] WBC 7.81 10*3/uL 4.50-11.00 RBC 4.88 10*6/uL [...] AM CHEST CT W/O CONT: JAKE DUGAN [id number] M Exm Date: SEP 01, 2024@10:54 Req Phys: NOLAN VERDUZCO Loc: CWM/SO/PACT 9 (Req'g Loc) Img Loc: NHM/CT Service: Unknown [facility] [place] [address] (Case [id number] COMPLETE) CT THORAX W/O CONT (CT Detailed) CPT:39918 Reason for Study: LDCT Clinical History: lung CA screen/surveillance as per protocol Report Status: Verified Date Reported: SEP 01, 2024 Date Verified: SEP 01, 2024 Battery Charger E-Sig:/ES/STARR MCDANIEL JR Report: Study: Noncontrast CT [...] Primary Interpreting Staff: STARR MCDANIEL JR, Radiologist (Battery Charger) /STARR HERNANDEZ JR [place] [facility] [place] [facility] Aug 16, 2024 02:[address] ABDOMEN AND PELVIS WITH CONTRAST: DUGANJAKE [id number] -1945 M Exm Date: AUG 16, 2024@14:04 Req Phys: LUBA,NOLAN Pat Loc: CWM/SO/PACT 9 (Req'g Loc) Img Loc: NH/CT Service: Unknown [place] [facility] [place] [facility] [place], [place] [address] (Case [id number] COMPLETE) CT ABDOMEN AND PELVIS WITH CONTRA(CT Detailed) CPT:90040 Contrast Media : Non-ionic Iodinated Reason for Study: prostate CA Clinical History: Report Status: Verified Date Reported: AUG 16, 2024 Date Verified: AUG 16, 2024 Battery Charger E-Sig: Report: CT ABDOMEN AND PELVIS WITH CONTRAST HISTORY: prostate CA COMPARISON: 03/14/2024 TECHNIQUE: CT of the abdomen and pelvis with multiplanar reformats was performed at the local [place] facility. A contrast-enhanced series was obtained in the portal venous phase. 350 images were received by the [place] National Teleradiology Program (NTP) for interpretation. RADIATION [...] tumor infiltration. READING PHYSICIAN: Kwabena Perez M.D. -[phone] 08/16/2024 20:18 [facility] National Teleradiology Program [phone] (For Medical Practitioner Use Only) Attention Patients / Veterans: If you have questions or concerns about these test results, please contact your ordering provider or primary care team. Primary Diagnostic Code: POSSIBLE MALIGNANCY Primary Interpreting Staff: RADIOLOGY,OUTSIDE SERVICE, Staff Physician / RADIOLOGY,OUTSIDE SERVICE [facility] Pathology Reports: +/- 30 days of the [...] comes from all [place] treatment facilities. Date/Time Pathology Report Provider Source Aug 24, 2024 11:28 AM [place] MICROBIOLOGY RE PORT: Reporting Lab: [facility] [CLIA# [id number]] [address] [place] [address] Accession [UID]: [id number] [[id number]] Received: Aug 24, 2024@11:28 Collection sample: URINE CLEAN CATCH Collection date: Aug 24, 2024 11:28 Site/Specimen: URINE Provider: NOLAN VERDUZCO Comment on specimen: POSITIVE CULTURE RESULTS MAY NOT REPRESENT CLINICAL INFECTION. CONSIDER NEED FOR ANTIBIOTICS IN THE CONTEXT OF UTI SYMPTOMS. Test(s) ordered: URINE CULTURE(MWROX).......... completed: Aug 29, 2024 08:33 * BACTERIOLOGY FINAL REPORT => Aug 29, 2024 08:32 TECH CODE: [id number] CULTURE RESULTS: 1. KLEBSIELLA OXYTOCA/RAOULTELLA ORNITHINOLYTICA - [...] Performed By: [facility] [CLIA# [id number]] [address] [place] [address] Pseudomonas Aeruginosa Performed By: [facility] [CLIA# [id number]] [address] [place] [address] Bact Report Remark #1 [address]formed By: [facility] [CLIA# [id number]] [address] [place] [address] Bact Report Remark #2 Performed By: [facility] [CLIA# [id number]] [address] [place] [address] ENRIQUETA FLORES [place] Encounter Notes: All associated encounter notes This [...] REQUIRED Electronically Filed: 08/30/2024 by: SUNITA MCDONOUGH [facility] Aug 24, 2024 12:00 AM NONVA NOTE: LOCAL TITLE: NON-VA HOSPITALIZATIONS/ER STANDARD TITLE: NONVA NOTE DATE OF NOTE: AUG 24, 2024 ENTRY DATE: SEP 26, 2024@10:06:16 AUTHOR: BRANDIE WEINER EXP COSIGNER: URGENCY: STATUS: COMPLETED VistA Imaging - Scanned Document SCANNED DOCUMENT SIGNATURE NOT REQUIRED Electronically Filed: 09/26/2024 by: BRANDIE WEINER SCIENCE TUTOR BRANDIE WEINER [place] [facility]
--- OUTSIDE RECORDS SUMMARY | 2024-09-29 12:06 | XMS_ITS | Encounter Summary ---
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 [facility] [place] Address [address] [place] [id number] Care Team Providers Care Ropeman Name Role Phone ROWENA ROY Primary Care [...] [facility] [place] (R) MEDICARE ADVANTAGE [place] INDIV IDUAL - [place] Sep 21, 2023 [id number] [phone] GENET DUGAN S [facility]IC[facility] ADVANTAGE [facility] ([facility]) Sep 21, 2023 [id number] [phone] MARVIN DUGANI S PATIENT HUSKY MEDICAID HUSKY PLAN May 22, 2022 MEDICAI D [id number] GENET DUGAN S PATIENT MEDICARE ([facility]) MEDICARE (M) PART B May 22, 2022 PART B [id number] [phone] GENET DUGAN S PATIENT MEDICARE (WNR) MEDICARE (M) PART A Feb 19, 2009 PART A [id number] MARVIN DUGANI S PATIENT MEDICARE PART D (WNR) MEDICARE (M) PART D Jul 22, 2022 PART D [id number] GENET DUGAN S PATIENT [facility] (WNR) MEDICARE ADVANTAGE MCR (WNR) Sep 21, 2022 [id number] GENET DUGAN S PATIENT [facility] (WNR) MEDICARE ADVANTAGE MCR (WNR) Sep 21, 2022 [id number] [phone] GENET DUGAN PATIENT Selected Encounter This section includes the information on record at [place] for the Encounter. 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 Radiology Reports and Pathology Reports are provided separately, in subsequent sections. Lab Results This section contains the Chemistry/Hematology Results that were resulted 30 days before or 30 daysafter the date of the Encounter. Date/Time Source Result Type Result - Unit Interpretation Reference Range Comment Aug 24, 2024 11:28 AM [facility] CBC AND DIFF (AUTO) Specimen Type: BLOOD No comment entered. Ordering Provider: ROWENA ROY Report Released Date/Time: Aug 24, 2024 11:07 AM Reporting Lab: [facility] [address] [facility] [address] Performing Lab: [facility] [address] [facility] [address] WBC 8.84 10*3/uL 4.50-11.00 RBC 4.72 10*6/uL [...] 10*3/uL 0.00-0.00 Aug 24, 2024 11:28 AM [facility] MICROSCOPIC AUTOMATED, URINE Specimen Type: URINE Comment: If Glucose = >500 and Ketones are positive, please alert the Physician. Ordering Provider: MONICA VERDUZCO Report Released Date/Time: Aug 09, 2024 09:43 AM Reporting Lab: [address] [address] Performing Lab: [address] [address] UA WBC 0-5 /[HPF] 0-5 UA BACTERIA 1+ /[HPF] NoneObs UA TRIPLE PHOSPHATE CRYSTALS MODERATE /[HPF] Not Established UA RBC 6-10 /[HPF] H 0-3 Aug 24, 2024 11:28 AM [facility] URINALYSIS Specimen Type: URINE Comment: If Glucose = >500 and Ketones are positive, please alert the Physician. Ordering Provider: MONICA VERDUZCO Report Released Date/Time: Aug 09, 2024 09:43 AM Reporting Lab: [address] [address] Performing Lab: [address] [address] UA COLOR Light-Brown Yellow UA APPEARANCE Turbid Clear UA GLUCOSE Normal mg/dL Negative UA KETONES NEGATIVE mg/dL Negative UA BLOOD LARGE mg/dL Negative UA PROTEIN 100 mg/dL Negative UA NITRITE NEGATIVE mg/dL Negative UA BILIRUBIN NEGATIVE mg/dL Negative UA SPECIFIC GRAVITY 1.007 L 1.016-1.022 UA pH 8.5 5.0-9.0 UA UROBILINOGEN Normal mg/dL <2.0 UA LEUKOCYTE LARGE Negative Aug 08, 2024 10:59 AM [facility] VITAMIN D 25-OH (Therapy monitor) [...] For additional information, please refer to [email or web address] [email or web address] music/faq/FAQ [email or web address] (This link is being provided for informational/ educational purposes only.) This test was developed and its analytical performance characteristics have been determined by [facility] [place]. It has not been cleared or approved by the U.S. Food and Drug Administration. This assay has been validated pursuant to the CLIA regulations and is used for clinical purposes. This test was developed and its analytical performance characteristics have been determined by [facility] [place] [place]. It has not been cleared or approved by the U.S. Food and Drug Administration. This assay has been validated pursuant to the CLIA regulations and is used for clinical purposes. Test Performed by [facility], [facility], [address] [place] [address] Dov Bahena M.D., Ph.D., Director of Laboratories , CLIA [id number] TEST PERFORMED AT: , Ordering Provider: MONICA VERDUZCO Report Released Date/Time: Aug 08, 2024 10:54 AM Reporting Lab: [facility] [address] [facility] [address] Performing Lab: [facility] [address] [address] VITAMIN D, 25-OH, TOTAL 51 ng/mL 30-100 VITAMIN D, 25-OH, D3 51 ng/mL VITAMIN D, 25-OH, D2 <4 ng/mL Aug 08, 2024 10:59 AM [facility] FOLATE (WROX) Specimen Type: SERUM No comment entered. Ordering Provider: MONICA VERDUZCO Report Released Date/Time: Aug 08, 2024 10:54 AM Reporting Lab: [facility] [address] [facility] [address] Performing Lab: [facility] [address] [facility] [facility] [address] FOLATE (WROX) 4.07 ng/mL L >5.2 Aug 08, 2024 10:59 AM [facility] MICROALBUMIN CREATININE RATIO PANEL Specimen Type: URINE No comment entered. Ordering Provider: MONICA VERDUZCO Report Released Date/Time: Aug 08, 2024 10:54 AM Reporting Lab: [facility] [address] [facility] [address] Performing Lab[facility] [address] [facility] [address] MICROALBUMIN/ CREATININE RATIO 354.2 mg/g H 0-29.9 MICROALBUMIN, QUANTITATIVE 103.3 mg/dL RR UNAVAIL CREATININE URINE 291.68 mg/dL Aug 08, 2024 10:59 AM [facility] VITAMIN B12 Specimen Type: SERUM No comment entered. Ordering Provider: MONICA VERDUZCO Report Released Date/Time: Aug 08, 2024 10:54 AM Reporting Lab: [facility] [address] [facility] [address] Performing Lab: [facility] [address] [facility] [address] VITAMIN B12 1849 pg/mL H 200-900 Aug 08, 2024 10:59 AM [facility] HEMOGLOBIN A1C PANEL Specimen Type: [...] Aug 08, 2024 10:54 AM Reporting Lab: [facility] [address] [facility] [address] Performing Lab: [facility] [address] [facility] [address] HEMOGLOBIN A1C 5.2 4.0-5.6 Aug 08, 2024 10:59 AM [facility] BASIC METABOLIC PANEL (fasting) Specimen Type: SERUM No comment entered. Ordering Provider: MONICA VERDUZCO Report Released Date/Time: Aug 08, 2024 10:54 AM Reporting Lab: [facility] [address] [facility] [address] Performing Lab: [address] [address] UREA NITROGEN 22 mg/dL 7-25 GLUCOSE 91 mg/dL 65-100 SODIUM 138 mmol/L 135-145 POTASSIUM 4.8 mmol/L 3.5-5.0 CHLORIDE 105 mmol/L 100-110 CO2 25 meq/L 20-30 CREATININE, Serum 0.99 mg/dL 0.50-1.40 eGFR(CKD-EPI 2020) 77 mL/min >60 Aug 08, 2024 10:59 AM [facility] LIVER FUNCTION Specimen Type: SERUM No comment entered. Ordering Provider: MONICA VERDUZCO Report Released Date/Time: Aug 08, 2024 10:54 AM Reporting Lab: [address] [address] Performing Lab: [address] [address] PROTEIN,TOTAL 6.7 g/dL 6.0-8.3 ALBUMIN 3.4 g/dL L 3.5-5.0 ALKALINE PHOSPHATASE 151 U/L H 40-150 AST 17 U/L 5-34 ALT 8 U/L BILIRUBIN, TOTAL 0.5 mg/dL 0.2-1.2 Aug 08, 2024 10:59 AM [facility] TSH Specimen Type: SERUM No comment entered. Ordering Provider: MONICA VERDUZCO Report Released Date/Time: Aug 08, 2024 10:54 AM Reporting Lab: [facility] [place] [facility] [address] [facility] [address] Performing Lab: [place] [facility] [place] [facility] [address] [facility] [address] TSH 1.93 u[IU]/mL 0.35-5.00 Aug 08, 2024 10:59 AM [facility] LIPID PANEL FASTING Specimen Type: SERUM No comment entered. Ordering Provider: MONICA VERDUZCO Report Released Date/Time: Aug 08, 2024 10:54 AM Reporting Lab: [facility] [address] [facility] [address] Performing Lab: [facility] [address] [facility] [address] CHOLESTEROL 178 mg/dL TRIGLYCERIDE 97 mg/dL 0-150 LDL calculated 97 mg/dL 0-129 CHOL/HDL 2.9 HDL CHOLESTEROL 62 mg/dL H 40-60 Aug 08, 2024 10:59 AM [facility] PSA Specimen Type: SERUM No comment entered. Ordering Provider: MONICA VERDUZCO Report Released Date/Time: Aug 08, 2024 10:54 AM Reporting Lab: [facility] [address] [facility] [address] Performing Lab: [facility] [address] [facility] [address] PSA 30.59 ng/mL H 0.00-4.00 Aug 08, 2024 10:59 AM [facility] CBC AND DIFF (AUTO) Specimen Type: BLOOD No comment entered. Ordering Provider: MONICA VERDUZCO Report Released Date/Time: Aug 08, 2024 10:54 AM Reporting Lab: [facility] [place] [facility] [address] [facility] [address] Performing Lab: [facility] [address] [facility] [address] WBC 7.81 10*3/uL 4.50-11.00 RBC 4.88 10*6/uL [...] and tobacco- related health factors from the [place] facility where the Encounter took place. Current Smoking Status This section includes the most current smoking, or tobacco-related health factor, from the [place] facility where the Encounter took place. Date/Time Current Smoking Status Comment Ray corral May 31, 2024 10:00 AM VA-TOBACCO NEVER USED [facility] Tobacco Use History This section includes a history of the smoking, or tobacco-related health factors, that were collected on or before the date of the Encounter. The data comes from the [place] facility where the Encounter took place. Date/Time Smoking Status/Tobacco Use Comment F acility Jun 23, 2023 09:00 AM [place]TO[place] FORMER USER [facility] Jun 23, 2023 09:00 AM [place]-TO[place] QUIT 15 YRS OR MORE [facility] May 01, 2022 01:30 PM [place] FORMER USER [facility] May 01, 2022 01:30 PM [place]-TOBACCO QUIT 15 YRS OR MORE [facility] Apr 15, 2021 03:00 PM VA-TOBACCO FORMER USER [facility] Apr 15, 2021 03:00 PM VA-TOBACCO QUIT 15 YRS OR MORE [facility] Oct 20, 2018 12:53 PM VA-TOBACCO FORMER USER [facility] Oct 20, 2018 12:53 PM VA-TOBACCO QUIT 15 YRS OR MORE [facility] Jul 03, 2017 10:33 AM QUIT TOBACCO USE > 7 YEARS AGO quit 25yrs ago [facility] February 13, 2016 08:46 AM LIFETIME NON-TOBACCO USER [facility] Advance Directives: All historical and current Section [...] 2024 ADVANCE DIRECTIVE [facility] Radiology Reports: +/- 30 days of [...] AM CHEST CT W/O CONT: JAKE DUGAN [id number] -1945 M Exm Date: SEP 01, 2024@10:54 Req Phys: LUBA,NOLAN Pat Loc: [facility]/SO/PACT 9 (Req'g Loc) Img Loc: [facility]/CT Service: [place] [address] (Case [id number] COMPLETE) CT THORAX W/O CONT (CT Detailed) CPT:25556 Reason for Study: LDCT Clinical History: lung CA screen/surveillance as per protocol Report Status: Verified Date Reported: SEP 01, 2024 Date Verified: SEP 01, 2024 Shaft Tender E-Sig:/ES/STARR MCDANIEL JR Report: Study: Noncontrast CT [...] Primary Interpreting Staff: STARR MCDANIEL JR, Radiologist (Shaft Tender) /STARR HERNANDEZ JR [facility] Aug 16, 2024 02:[address] ABDOMEN AND PELVIS WITH CONTRAST: RITCHIEMARVINJAKE [id number] -1945 M Ex Date: AUG 16, 2024@14:04 Req Phys: NOLAN VERDUZCO Pat Loc: [facility]/SO/PACT 9 (Req'g Loc) Img Loc: [facility] Service: Unknown [place] [address] (Case [id number] COMPLETE) CT ABDOMEN AND PELVIS WITH CONTRA(CT Detailed) CPT:68179 Contrast Media : Non-ionic Iodinated Reason for Study: prostate CA Clinical History: Report Status: Verified Date Reported: AUG 16, 2024 Date Verified: AUG 16, 2024 Shaft Tender E-Sig: Report: CT ABDOMEN AND PELVIS WITH CONTRAST HISTORY: prostate CA COMPARISON: 03/14/2024 TECHNIQUE: CT of the abdomen and pelvis with multiplanar reformats was performed at the local [place] facility. A contrast-enhanced series was obtained in the portal venous phase. 350 images were received by the [place] National Teleradiology Program (NTP) for interpretation. RADIATION [...] tumor infiltration. READING PHYSICIAN: Kwabena Perez M.D. -[phone] 08/16/2024 20:18 [facility] National Teleradiology Program [phone] (For Medical Practitioner Use Only) Attention Patients / Veterans: If you have questions or concerns about these test results, please contact your ordering provider or primary care team. Primary Diagnostic Code: POSSIBLE MALIGNANCY Primary Interpreting Staff: RADIOLOGY,OUTSIDE SERVICE, Staff Physician / RADIOLOGY,OUTSIDE SERVICE [facility] Pathology Reports: +/- 30 days [...] comes from all [place] treatment facilities. Date/Time Pathology Report Provider Source Aug 24, 2024 11:28 AM LR MICROBIOLOGY RE PORT: Reporting Lab: [facility] [CLIA# [id number]] [address] [place] [address] Accession [UID]: [id number] [[id number]] Received: Aug 24, 2024@11:28 Collection sample: URINE CLEAN CATCH Collection date: Aug 24, 2024 11:28 Site/Specimen: URINE Provider: NOLAN VERDUZCO Comment on specimen: POSITIVE CULTURE RESULTS MAY NOT REPRESENT CLINICAL INFECTION. CONSIDER NEED FOR ANTIBIOTICS IN THE CONTEXT OF UTI SYMPTOMS. Test(s) ordered: URINE CULTURE(MWROX).......... completed: Aug 29, 2024 08:33 * BACTERIOLOGY FINAL REPORT => Aug 29, 2024 08:32 TECH CODE: [id number] CULTURE RESULTS: 1. KLEBSIELLA OXYTOCA/RAOULTELLA ORNITHINOLYTICA - [...] Performing Laboratory: Klebsiella Oxytoca/raoultella Ornithinolytica Performed By: [facility] [CLIA# [id number]] [address] [place] [address] Pseudomonas Aeruginosa Performed By: [facility] [CLIA# [id number]] [address] [place] [address] Bact Report Remark #1 Performed By: [facility] [CLIA# [id number]] [address] [place] [id number] Bact Report Remark #2 Performed By: [facility] [CLIA# [id number]] [address] [place] [address] ENRIQUETA FLORES [facility] Encounter Notes: All associated encounter notes This section contains the clinical notes associated to the Encounter. Date/Time Encounter Note(s) Provider Source Sep 06, 2024 11:13 AM LETTERS: LOCAL TITLE: PATIENT LETTER (T) STANDARD TITLE: LETTERS DATE OF NOTE: SEP 06, 2024@11:13 ENTRY DATE: SEP 06, 2024@11:13:17 AUTHOR: NOLAN VERDUZCO EXP COSIGNER: URGENCY: STATUS: COMPLETED DEPARTMENT OF [facility] Toll Free Number Primary Care Telephone Assistance can be reached at extension [phone] [facility] scheduling can be reached at extension [phone] [facility] scheduling can be reached at ext [phone] JAKE R[address] [place], [place], [address] Dear Jean, The following are recommendations from your TeleDerm consult this summer: HISTORY: This is a an 79-year-old male [...] not required Please inform patient of above Please let us know if any of these become bothersome and you will be referred to [facility]. Sincerely, Your Primary Care Team [facility] [address] [facility] [address] [place] [address] [place] [address] [phone] [facility] [address] [place] [address] [place] [address] [phone] [facility] [address] [facility] [place] [address] [place] [address] NOLAN VERDUZCO [facility] Sep 06, 2024 11:03 AM ADMINISTRATIVE NOT E: LOCAL TITLE: ADMINISTRATIVE NOTE STANDARD TITLE: ADMINISTRATIVE NOTE DATE OF NOTE: SEP 06, 2024@11:03 ENTRY DATE: SEP 06, 2024@11:03:40 AUTHOR: NOLAN VERDUZCO EXP COSIGNER: URGENCY: STATUS: COMPLETED SUBJECT: Abnormal imaging studies ADMINISTRATIVE NOTE Has ADDENDA Please FAX TODAY the following information to Dr Alexis Durant @ [facility] [address] [facility] Psa [0.00-4.00] 06/24/2023 7:39 2.63 Serum Psa [0.00-4.00] 10/06/2023 12:48 21.53 Serum Psa [0.00-4.00] 11/30/2023 10:39 35.69 Serum Psa [0.00-4.00] 08/08/2024 10:59 30.59 Serum Date Verified: SEP 01, 2024 Shaft Tender E-Sig:/ES/STARR MCDANIEL JR Report: Study: Noncontrast CT [...] Attention Needed Secondary Diagnostic Codes: POSSIBLE MALIGNANCY Date Verified: AUG 16, 2024 Shaft Tender E-Sig: Report: CT ABDOMEN AND PELVIS WITH CONTRAST HISTORY: prostate CA COMPARISON: 03/14/2024 TECHNIQUE: CT of the abdomen and pelvis with multiplanar reformats was performed [place] the local [place] facility. A contrast-enhanced series was obtained in the portal venous phase. 350 images were received by the [place] National Teleradiology Program (NTP) for interpretation. RADIATION [...] tumor infiltration. READING PHYSICIAN: Kwabena Perez M.D. -[phone] /mariana/ NOLAN VERDUZCO MD PHYSICIAN Signed: 09/06/2024 11:09 Receipt Acknowledged By: 09/06/2024 11:18 /mariana/ DANIELE MCINTYRE 09/06/2024 ADDENDUM STATUS: COMPLETED Inspector Rag Sorting faxed copy of encounter to Dr Durant @ [facility]. /mariana/ DANIELE MCINTYRE Signed: 09/06/2024 11:18 NOLAN VERDUZCO [facility]
--- OUTSIDE RECORDS SUMMARY | 2024-09-29 12:07 | XMS_ITS | Encounter Summary ---
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 Organization [place] Address [address] [place] [address] Care Team Providers Care Garbage Man Name Role Phone ROWENA ROY Primary Care [...] Segal's Name Patient's Relationship to Policy Segal [facility] ([facility]) MEDICARE ADVANTAGE [place] INDIV IDUAL - [place] Sep 21, 2023 [id number] [phone] GENET DUGAN S [facility] ([facility]) [facility]IC[facility] ADVANTAGE [facility] Sep 21, 2023 [id number] [phone] DUGAN,GENET S PATIENT HUSKY MEDICAID HUSKY PLAN May 22, 2022 MEDICAI D [id number] MARVIN DUGANI S PATIENT MEDICARE (WN) MEDICARE (M) PART B May 22, 2022 PART B [id number] DUGAN,GENET S PATIENT MEDICARE (WNR) MEDICARE (M) PART A Feb 19, 2009 PART A [id number] DUGAN,GENET S PATIENT MEDICARE PART D (WNR) MEDICARE (M) PART D Jul 22, 2022 PART D [id number] [facility] (WNR) MEDICARE ADVANTAGE [facility] (WNR) Sep 21, 2022 [id number] GENET DUGAN PATIENT [facility] (WNR) MEDICARE ADVANTAGE MCR (WNR) Sep 21, 2022 [id number] [id number] GENET DUGAN PATIENT Selected Encounter This section [...] activities for the patient from all [place] [facility]. This section includes future appointments and future orders which are active, pending or scheduled. Future Appointments This section includes appointments that were scheduled to occur 6 months from the date of the Encounter, up to a maximum of 20 appointments. The data comes from all [place] treatment [facility]. Appointment Date/Time Appointment Type Appointme nt Facility Name Aug 16, 2024 12:00 PM AMBULATORY - NONE [place] [facility] [place] [facility] Aug 22, 2024 11:20 AM AMBULATORY - MEDICINE [facility] [place] [facility] Aug 24, 2024 11:00 AM AMBULATORY - MEDICINE [facility] Sep 01, 2024 11:00 AM AMBULATORY NONE [place] [facility] [place] [facility] Sep 07, 2024 03:00 PM AMBULATORY - MEDICINE [facility]L [place] [facility] Dec 13, 2024 01:30 PM AMBULATORY - MEDICINE [facility] Jan 02, 2025 10:00 AM [facility] - [facility] Active, Pending, and Scheduled Orders This [...] 09:40 AM Consult Order COMMUNITY CARE-UROLOGY Cons Director [employer]'s Choice [facility] Lab Results: +/- 30 days of the [...] Range Comment Aug 24, 2024 11:28 AM [place] CBC AND DIFF (AUTO) Specimen Type: BLOOD No comment entered. Ordering Provider: ROWENA ROY Report Released Date/Time: Aug 24, 2024 11:07 AM Reporting Lab: [facility] [address] [facility] [address] Performing Lab: [facility] [address] [facility] [address] WBC 8.84 10*3/uL 4.50-11.00 RBC 4.72 10*6/uL [...] Aug 09, 2024 09:43 AM Reporting Lab: [address] [address] Performing Lab: [address] [address] UA WBC 0-5 /[HPF] 0-5 UA BACTERIA 1+ /[HPF] NoneObs UA TRIPLE PHOSPHATE CRYSTALS MODERATE /[HPF] Not Established UA RBC 6-10 /[HPF] H 0-3 Aug 24, 2024 11:28 AM [facility] URINALYSIS Specimen Type: URINE Comment: If Glucose = >500 and Ketones are positive, please alert the Physician. Ordering Provider: MONICA VERDUZCO Report Released Date/Time: Aug 09, 2024 09:43 AM Reporting Lab: [address] [address] Performing Lab: [address] [address] UA COLOR Light-Brown Yellow UA APPEARANCE Turbid [...] For additional information, please refer to [email or web address] (This link is being provided for informational/ educational purposes only.) This test was developed and its analytical performance characteristics have been determined by [facility] [place] [place]. It has not been cleared or approved by the U.S. Food and Drug Administration. This assay has been validated pursuant to the CLIA regulations and is used for clinical purposes. This test was developed and its analytical performance characteristics have been determined by [facility] [place] [place]. It has not been cleared or approved by the U.S. Food and Drug Administration. This assay has been validated pursuant to the CLIA regulations and is used for clinical purposes. Test Performed by [facility], [address] [place] [address] Dov Bahena M.D., Ph.D., Director of Laboratories , CLIA [id number] TEST PERFORMED AT: , Ordering Provider: MONICA VERDUZCO Report Released Date/Time: Aug 08, 2024 10:54 AM Reporting Lab: [facility] [address] [facility] [address] Performing Lab: [facility] [address] [address] VITAMIN D, 25-OH, TOTAL 51 ng/mL 30-100 VITAMIN D, 25-OH, D3 51 ng/mL VITAMIN D, 25-OH, D2 <4 ng/mL Aug 08, 2024 10:59 AM [facility] FOLATE (WROX) Specimen Type: SERUM No comment entered. Ordering Provider: MONICA VERDUZCO Report Released Date/Time: Aug 08, 2024 10:54 AM Reporting Lab: [facility] [place] [facility] [address] [facility] [address] Performing Lab: [place] [facility] [facility] [address] [facility] [address] FOLATE (WROX) 4.07 ng/mL L >5.2 Aug 08, 2024 10:59 AM [facility]ITALRL TRN [facility] MICROALBUMIN CREATININE RATIO PANEL Specimen Type: URINE No comment entered. Ordering Provider: MONICA VERDUZCO Report Released Date/Time: Aug 08, 2024 10:54 AM Reporting Lab: [facility] [place] [facility] [address] [facility] [address] Performing Lab: [facility] TRN [facility]ITALCH[facility] [address] [facility] [address] MICROALBUMIN/ CREATININE RATIO 354.2 mg/g H 0-29.9 MICROALBUMIN, QUANTITATIVE 103.3 mg/dL RR UNAVAIL CREATININE URINE 291.68 mg/dL Aug 08, 2024 10:59 AM [facility] VITAMIN B12 Specimen Type: SERUM No comment entered. Ordering Provider: MONICA VERDUZCO Report Released Date/Time: Aug 08, 2024 10:54 AM Reporting Lab: [facility] TRN [facility] [address] [facility] [address] Performing Lab: [facility]ITALRSOUTH [facility] CENTERTRN [facility]ENTERUSETS [facility] [address] [facility] [address] VITAMIN B12 1849 pg/mL H 200-900 Aug 08, 2024 10:59 AM [facility]ITAL[facility]ERN [facility] LIPID PANEL FASTING Specimen Type: SERUM No comment entered. Ordering Provider: MONICA VERDUZCO Report Released Date/Time: Aug 08, 2024 10:54 AM Reporting Lab: [facility]ITALRSOUTH [facility] CENTERTRN [facility]USETS [facility] [address] [facility] [address] Performing Lab: [facility]ITALRSOU[facility] CENTERTRN [facility]ENTERUSETS [facility] [address] [facility] [address] CHOLESTEROL 178 mg/dL TRIGLYCERIDE 97 mg/dL 0-150 LDL calculated 97 mg/dL 0-129 CHOL/HDL 2.9 HDL CHOLESTEROL 62 mg/dL H 40-60 Aug 08, 2024 10:59 AM [facility] BASIC METABOLIC PANEL (fasting) Specimen Type: SERUM No comment entered. Ordering Provider: MONICA VERDUZCO Report Released Date/Time: Aug 08, 2024 10:54 AM Reporting Lab: [facility] [address] [facility] [address] Performing Lab: [facility] [address] [facility] [address] UREA NITROGEN 22 mg/dL 7-25 GLUCOSE 91 [...] AM Reporting Lab: [facility] [address] [facility] [address] Performing Lab: [address] [address] PROTEIN,TOTAL 6.7 g/dL 6.0-8.3 ALBUMIN 3.4 g/dL [...] 08, 2024 10:54 AM Reporting Lab: [facility]ITALRSOU[facility] CENTERTRN [facility]ENTERUSETS [facility] [address] [facility] [address] Performing Lab: [facility]ITALRL TRN [facility]ENTERUSETS [facility] [address] [facility] [address] HEMOGLOBIN A1C 5.2 4.0-5.6 Aug 08, 2024 10:59 AM [facility]ITALRE[facility] CENTERN [facility] TSH Specimen Type: SERUM No comment entered. Ordering Provider: MONICA VERDUZCO Report Released Date/Time: Aug 08, 2024 10:54 AM Reporting Lab: [facility]ITALRSOUTH [facility]DW[facility] MED[facility] CENTERTRN [facility]ENTERUSETS [facility] [address] [facility] [address] Performing Lab: [facility]ITALRE[facility]ENTERN [facility]ENTERUSE[address] [address] TSH 1.93 u[IU]/mL 0.35-5.00 Aug 08, 2024 10:59 AM [facility] PSA Specimen Type: SERUM No comment entered. Ordering Provider: MONICA VERDUZCO Report Released Date/Time: Aug 08, 2024 10:54 AM Reporting Lab: [facility]ITALRSOU[facility] MEDICAL CENTERTRN [facility]ENTERUSETS [facility] [address] [facility] [address] Performing Lab: [facility]ITALRE[facility]ENTERN [facility] CENTERUSETS [address] [address] PSA 30.59 ng/mL H 0.00-4.00 Aug 08, 2024 10:59 AM [facility] CBC AND DIFF (AUTO) Specimen Type: BLOOD No comment entered. Ordering Provider: MONICA VERDUZCO Report Released Date/Time: Aug 08, 2024 10:54 AM Reporting Lab: [facility]ITALRSOU[facility] MEDICAL CENTERTRN [facility]ENTERUSETS [facility] [address] [facility] [address] Performing Lab: [facility]ITALRE[facility]ENTERN [facility] CENTERUSETS [address] [address] WBC 7.81 10*3/uL 4.50-11.00 RBC 4.88 10*6/uL [...] AM CHEST CT W/O CONT: JAKE DUGAN [id number] -1945 M Exm Date: SEP 01, 2024@10:54 Req Phys: LUBA,NOLAN Pat Loc: CWM/SO/PACT 9 (Req'g Loc) Img Loc: NHM/CT Service: [place] [address] (Case [id number] COMPLETE) CT THORAX W/O CONT (CT Detailed) CPT:48990 Reason for Study: LDCT Clinical History: lung CA screen/surveillance as per protocol Report Status: Verified Date Reported: SEP 01, 2024 Date Verified: SEP 01, 2024 Turner Machine E-Sig:/ES/STARR MCDANIEL JR Report: Study: Noncontrast CT [...] Primary Interpreting Staff: STARR MCDANIEL JR, Radiologist (Turner Machine) /STARR HERNANDEZ JR [facility] Aug 16, 2024 02:[address] ABDOMEN AND PELVIS WITH CONTRAST: JAKE DUGAN [id number] -1945 M Exm Date: AUG 16, 2024@14:04 Req Phys: LUBA,NOLAN Pat Loc: CWM/SO/PACT 9 (Req'g Loc) Img Loc: [place]/CT Service: Unknown [facility] [address] (Case [id number] COMPLETE) CT ABDOMEN AND PELVIS WITH CONTRA(CT Detailed) CPT:66123 Contrast Media : Non-ionic Iodinated Reason for Study: prostate CA Clinical History: Report Status: Verified Date Reported: AUG 16, 2024 Date Verified: AUG 16, 2024 Turner Machine E-Sig: Report: CT ABDOMEN AND PELVIS WITH [...] tumor infiltration. READING PHYSICIAN: Kwabena Perez M.D. -[phone] 08/16/2024 20:18 [facility] National Teleradiology Program [phone] (For Medical Practitioner Use Only) Attention Patients [...] comes from all [place] treatment facilities. Date/Time Pathology Report Provider Source Aug 24, 2024 11:28 AM LR MICROBIOLOGY RE PORT: Reporting Lab: [facility] [CLIA# [id number]] [address] [place] [address] Accession [UID]: [id number] [[id number]] Received: Aug 24, 2024@11:28 Collection sample: URINE CLEAN CATCH Collection date: Aug 24, 2024 11:28 Site/Specimen: URINE Provider: NOLAN VERDUZCO Comment on specimen: POSITIVE CULTURE RESULTS MAY NOT REPRESENT CLINICAL INFECTION. CONSIDER NEED FOR ANTIBIOTICS IN THE CONTEXT OF UTI SYMPTOMS. Test(s) ordered: URINE CULTURE([facility]).......... completed: Aug 29, 2024 08:33 * BACTERIOLOGY FINAL REPORT => Aug 29, 2024 08:32 TECH CODE: [id number] CULTURE RESULTS: 1. KLEBSIELLA OXYTOCA/RAOULTELLA ORNITHINOLYTICA - [...] Performing Laboratory: Klebsiella Oxytoca/raoultella Ornithinolytica Performed By: [facility] [CLIA# [id number]] [address] [place] [address] Pseudomonas Aeruginosa Performed By: [facility] [CLIA# [id number]] [address] [place] [address] Bact Report Remark #1 Performed By: [facility] [CLIA# [id number]] [address] [place] [address] Bact Report Remark #2 Performed By: [facility] [CLIA# [id number]] [address] [place] [address] ENRIQUETA FLORES THORNDIKE Encounter Notes: All associated encounter notes This [...] REQUIRED Electronically Filed: 09/07/2024 by: BRANDIE WEINER ASSISTANT PROFESSOR OF RELIGION BRANDIE WEINER [facility] Aug 11, 2024 12:00 AM NONVA CONSULT: LOCAL TITLE: COMMUNITY CARE-CONSULT RESULT NOTE STANDARD TITLE: NONVA CONSULT DATE OF NOTE: AUG 11, 2024 ENTRY DATE: SEP 19, 2024@10:57:38 AUTHOR: MAGDALENA AZUL EXP COSIGNER: URGENCY: STATUS: COMPLETED VistA Imaging - Scanned Document SCANNED DOCUMENT SIGNATURE NOT REQUIRED Electronically Filed: 09/19/2024 by: MARIE AZUL Fiberglass Boat Builder MARIE AZUL [facility]
--- OUTSIDE RECORDS SUMMARY | 2024-09-29 12:07 | XMS_ITS | Encounter Summary ---
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 ([place] Organization Department of Vetera [place] Address [address] [place] [address] Care Team Providers Care Restaurant Assistant Manager Name Role Phone ROWENA ROY Primary [...] Relationship to Policy Segal [facility] (R) MEDICARE ADVANTAGE [place] INDIV IDUAL - [place] Sep 21, 2023 [id number] [phone] GENET [facility]UGAN S [facility]IC[facility] ADVANTAGE [facility] ([facility]) Sep 21, 2023 [id number] [phone] MARVIN DUGANI S PATIENT HUSKY MEDICAID HUSKY PLAN May 22, 2022 MEDICAI D [id number] GENET DUGAN S PATIENT MEDICARE (WN) MEDICARE (M) PART B May 22, 2022 PART B [id number] MARVIN DUGANI S PATIENT MEDICARE (WNR) MEDICARE (M) PART A Feb 19, 2009 PART A [id number] [phone] DUGAN,GENET S PATIENT MEDICARE PART D (WNR) MEDICARE (M) PART D Jul 22, 2022 PART D [id number] GENET UDGAN PATIENT [facility] (WNR) MEDICARE ADVANTAGE [facility] (WNR) Sep 21, 2022 [id number] GENET DUGAN PATIENT [facility] (WNR) MEDICARE ADVANTAGE MCR (WNR) Sep 21, 2022 [id number] GENET DUGAN PATIENT Selected Encounter This section includes the information on record at [place] for the Encounter. Date/Time Encounter Type Encounter Description Reason Pro vider Source Sep 15, 2024 09:28 AM Outpatient Encounter TELEPHONE PRIMARY CARE IHE Encounter Template Text not used by [place] Plan of Treatment: Future Appointments (+ 6 months) and Future Tests (+/- 45 days) The Plan of Treatment section includes future care activities for the patient from all [place] [facility]. This section includes future appointments and future [...] 13, 2024 01:30 PM AMBULATORY - MEDICINE [facility] Jan 02, 2025 10:00 AM AMBULATORY - MEDICINE [place] C [facility]L [facility] [place] [facility] Active, Pending, and Scheduled Orders This section includes a listing of several types of active, pending, and scheduled orders, including clinic medications orders, diagnostic test orders, procedure orders and consult orders; where the start date of the order is 45 days before the date of the Encounter or 45 days after the date of theEncounter. The data comes from all [place] treatment facilities. Test Date/Time Test Type Test Details Facility Name Aug 09, 2024 09:40 AM Consult Order COMMUNITY CARE-UROLOGY Cons Product Management Analyst's Choice [place] [facility] [place] [facility] Lab Results: +/- 30 [...] Range Comment Aug 24, 2024 11:28 AM [place] CBC AND DIFF (AUTO) Specimen Type: BLOOD No comment entered. Ordering Provider: CAMACHO ROY Report Released Date/Time: Aug 24, 2024 11:07 AM Reporting Lab: [facility] [address] [facility] [address] Performing Lab: [facility] [address] [facility] [address] WBC 8.84 10*3/uL 4.50-11.00 RBC 4.72 10*6/uL [...] 10*3/uL 0.00-0.00 Aug 24, 2024 11:28 AM [facility] MICROSCOPIC AUTOMATED, URINE Specimen Type: URINE Comment: If Glucose = >500 and Ketones are positive, please alert the Physician. Ordering Provider: VINICIO VERDUZCO Report Released Date/Time: Aug 09, 2024 09:43 AM Reporting Lab: [address] [address] Performing Lab: [address] [address] UA WBC 0-5 /[HPF] 0-5 UA BACTERIA 1+ /[HPF] NoneObs UA TRIPLE PHOSPHATE CRYSTALS MODERATE /[HPF] Not Established UA RBC 6-10 /[HPF] H 0-3 Aug 24, 2024 11:28 AM [facility] URINALYSIS Specimen Type: URINE Comment: If Glucose = >500 and Ketones are positive, please alert the Physician. Ordering Provider: VINICIO VERDUZCO Report Released Date/Time: Aug 09, 2024 09:43 AM Reporting Lab: [address] [address] Performing Lab: [address] [address] UA COLOR Light-Brown Yellow UA APPEARANCE Turbid Clear UA GLUCOSE Normal mg/dL Negative UA KETONES NEGATIVE mg/dL Negative UA BLOOD LARGE mg/dL Negative UA PROTEIN 100 mg/dL Negative UA NITRITE NEGATIVE mg/dL Negative UA BILIRUBIN NEGATIVE mg/dL Negative UA SPECIFIC GRAVITY 1.007 L 1.016-1.022 UA pH 8.5 5.0-9.0 UA UROBILINOGEN Normal mg/dL <2.0 UA LEUKOCYTE LARGE Negative Advance Directives: All historical and current Section [...] AM CHEST CT W/O CONT: JAKE DUGAN [id number] -1945 M Exm Date: SEP 01, 2024@10:54 Req Phys: LUBA,NOLAN Pat Loc: CWM/SO/PACT 9 (Req'g Loc) Img Loc: NHM/CT Service: [facility] [place] [facility] [place] [address] (Case [id number] COMPLETE) CT THORAX W/O CONT (CT Detailed) CPT:03812 Reason for Study: LDCT Clinical History: lung CA screen/surveillance as per protocol Report Status: Verified Date Reported: SEP 01, 2024 Date Verified: SEP 01, 2024 Beauty School Instructor E-Sig:/ES/STARR MCDANIEL JR Report: Study: Noncontrast CT [...] Primary Interpreting Staff: STARR MCDANIEL JR, Radiologist (Beauty School Instructor) /STARR HERNANDEZ JR [facility] Aug 16, 2024 02:[address] ABDOMEN AND PELVIS WITH CONTRAST: JAKE DUGAN [id number] -1945 M Exm Date: AUG 16, 2024@14:04 Req Phys: LUBA,NOLAN Pat Loc: CWM/SO/PACT 9 (Req'g Loc) Img Loc: [facility]/CT Service: [place] [address] (Case [id number] COMPLETE) CT ABDOMEN AND PELVIS WITH CONTRA(CT Detailed) CPT:42744 Contrast Media : Non-ionic Iodinated Reason for Study: prostate CA Clinical History: Report Status: Verified Date Reported: AUG 16, 2024 Date Verified: AUG 16, 2024 Beauty School Instructor E-Sig: Report: CT ABDOMEN AND PELVIS WITH [...] tumor infiltration. READING PHYSICIAN: Kwabena Perez M.D. -[phone] 08/16/2024 20:18 [facility] National Teleradiology Program [phone] (For Medical Practitioner Use Only) Attention Patients / Veterans: If you have questions or concerns about these test results, please contact your ordering provider or primary care team. Primary Diagnostic Code: POSSIBLE MALIGNANCY Primary Interpreting Staff: RADIOLOGY,OUTSIDE SERVICE, Staff Physician / RADIOLOGY,OUTSIDE SERVICE [place] [facility] Pathology Reports: +/- 30 days [...] AM LR MICROBIOLOGY RE PORT: Reporting Lab: [place] CNT NIHAR[facility]A [facility] [CLIA# [id number]] [address] [place] [address] Accession [UID]: [id number] [[id number]] Received: Aug 24, 2024@11:28 Collection sample: URINE CLEAN CATCH Collection date: Aug 24, 2024 11:28 Site/Specimen: URINE Provider: NOLAN VERDUZCO Comment on specimen: POSITIVE CULTURE RESULTS MAY NOT REPRESENT CLINICAL INFECTION. CONSIDER NEED FOR ANTIBIOTICS IN THE CONTEXT OF UTI SYMPTOMS. Test(s) ordered: URINE CULTURE([facility]).......... completed: Aug 29, 2024 08:33 * BACTERIOLOGY FINAL REPORT => Aug 29, 2024 08:32 TECH CODE: [id number] CULTURE RESULTS: 1. KLEBSIELLA OXYTOCA/RAOULTELLA ORNITHINOLYTICA - [...] Performing Laboratory: Klebsiella Oxytoca/raoultella Ornithinolytica Performed By: [facility] [CLIA# [id number]] [address] [place] [address] Pseudomonas Aeruginosa Performed By: [facility] [CLIA# [id number]] [address] [place] [address] Bact Report Remark #1 Performed By: [facility] [CLIA# [id number]] [address] [place] [address] Bact Report Remark #2 Performed By: [facility] [CLIA# [id number]] [address] [place] [address] ENRIQUETA FLORESFIELD
--- OUTSIDE RECORDS SUMMARY | 2024-09-29 12:07 | XMS_ITS ---
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 Organization [facility] Address [address] [place] [id number] Care Team Providers Care Commanding Officer Traffic Division Name Role Phone ROWENA ROY Primary Care [...] INDIV IDUAL - MASS Sep 21, 2023 [id number] [phone] [facility]ET [facility]AN [facility]) [facility] ADVANTAGE [facility] ([facility]) Sep 21, 2023 [id number] [phone] MARVIN DUGANI S PATIENT HUSKY MEDICAID HUSKY PLAN May 22, 2022 MEDICAI D [id number] GENET DUGAN S PATIENT MEDICARE ([facility]) MEDICARE (M) PART B May 22, 2022 PART B [id number] MARVIN DUGANI S PATIENT MEDICARE ([facility]) MEDICARE (M) PART A Feb 19, 2009 PART A [id number] DUGAN,GENET S PATIENT MEDICARE PART D (WNR) MEDICARE (M) PART D Jul 22, 2022 PART D [id number] GENET DUGAN S PATIENT [facility] (WNR) MEDICARE ADVANTAGE [facility] (WNR) Sep 21, 2022 [id number] GENET DUGAN S PATIENT [facility] (WNR) MEDICARE ADVANTAGE MCR (WNR) Sep 21, 2022 [id number] [phone] GENET DUGAN PATIENT Selected Encounter This section includes the information on record at [place] for the Encounter. Date/Time Encounter Type Encounter Description Reason Pro vider Source Sep 15, 2024 11:42 AM Outpatient Encounter PRIMARY CARE/MEDICINE IHE Encounter Template Text not used by [place] Plan of Treatment: Future Appointments (+ 6 months) and Future Tests (+/- 45 days) The Plan of Treatment section includes future care activities for the patient from all [place] [facility]. This section includes future appointments and [...] 13, 2024 01:30 PM AMBULATORY - MEDICINE [facility] Jan 02, 2025 10:00 AM AMBULATORY - MEDICINE [facility] Active, Pending, and Scheduled [...] 09:40 AM Consult Order COMMUNITY CARE-UROLOGY Cons Optoelectronics Engineer's Choice [place] [facility] Lab Results: +/- 30 [...] Range Comment Aug 24, 2024 11:28 AM [place] CBC AND DIFF (AUTO) Specimen Type: BLOOD No comment entered. Ordering Provider: CAMACHO ROY Report Released Date/Time: Aug 24, 2024 11:07 AM Reporting Lab: [facility] [address] [facility] [address] Performing Lab: [facility] [address] [facility] [address] WBC 8.84 10*3/uL 4.50-11.00 RBC 4.72 10*6/uL [...] 10*3/uL 0.00-0.00 Aug 24, 2024 11:28 AM [facility] MICROSCOPIC AUTOMATED, URINE Specimen Type: URINE Comment: If Glucose = >500 and Ketones are positive, please alert the Physician. Ordering Provider: VINICIO VERDUZCO Report Released Date/Time: Aug 09, 2024 09:43 AM Reporting Lab: [address] [address] Performing Lab: [address] [address] UA WBC 0-5 /[HPF] 0-5 UA BACTERIA 1+ /[HPF] NoneObs UA TRIPLE PHOSPHATE CRYSTALS MODERATE /[HPF] Not Established UA RBC 6-10 /[HPF] H 0-3 Aug 24, 2024 11:28 AM [facility] URINALYSIS Specimen Type: URINE Comment: If Glucose = >500 and Ketones are positive, please alert the Physician. Ordering Provider: VINICIO VERDUZCO Report Released Date/Time: Aug 09, 2024 09:43 AM Reporting Lab: [address] [address] Performing Lab: [address] [address] UA COLOR Light-Brown Yellow UA APPEARANCE Turbid [...] Source Apr 04, 2024 [facility] Radiology Reports: +/- 30 days [...] AM CHEST CT W/O CONT: JAKE DUGAN [id number] -1945 M Exm Date: SEP 01, 2024@10:54 Req Phys: LUBA,NOLAN Pat Loc: CWM/SO/PACT 9 (Req'g Loc) Img Loc: NHM/CT Service: Unknown [place] [facility] [place] [address] (Case [id number] COMPLETE) CT THORAX W/O CONT (CT Detailed) CPT:76968 Reason for Study: LDCT Clinical History: lung CA screen/surveillance as per protocol Report Status: Verified Date Reported: SEP 01, 2024 Date Verified: SEP 01, 2024 Basket Machine Operator E-Sig:/ES/STARR MCDANIEL JR Report: Study: Noncontrast CT [...] Primary Interpreting Staff: STARR MCDANIEL JR, Radiologist (Basket Machine Operator) /STARR HERNANDEZ JR [facility] Aug 16, 2024 02:[address] ABDOMEN AND PELVIS WITH CONTRAST: JAKE DUGAN [id number] -1945 M Exm Date: AUG 16, 2024@14:04 Req Phys: LUBA,NOLAN Pat Loc: CWM/SO/PACT 9 (Req'g Loc) Img Loc: [facility]/CT Service: [place] [address] (Case [id number] COMPLETE) CT ABDOMEN AND PELVIS WITH CONTRA(CT Detailed) CPT:31300 Contrast Media : Non-ionic Iodinated Reason for Study: prostate CA Clinical History: Report Status: Verified Date Reported: AUG 16, 2024 Date Verified: AUG 16, 2024 Basket Machine Operator E-Sig: Report: CT ABDOMEN AND [...] tumor infiltration. READING PHYSICIAN: Kwabena Perez M.D. -[id number] 08/16/2024 20:18 [facility] National Teleradiology Program [phone] (For Medical Practitioner Use Only) Attention Patients / Veterans: If you have questions or concerns about these test results, please contact your ordering provider or primary care team. Primary Diagnostic Code: POSSIBLE MALIGNANCY Primary Interpreting Staff: RADIOLOGY,OUTSIDE SERVICE, Staff Physician / RADIOLOGY,OUTSIDE SERVICE [place] [facility] [facility] Pathology Reports: +/- 30 days [...] AM LR MICROBIOLOGY RE PORT: Reporting Lab: [place] CNT NIHARIKA MCR[facility] [CLIA# [id number]] [address] [place] [id number] Accession [UID]: [id number] [[id number]] Received: Aug 24, 2024@11:28 Collection sample: URINE CLEAN CATCH Collection date: Aug 24, 2024 11:28 Site/Specimen: URINE Provider: NOLAN VERDUZCO Comment on specimen: POSITIVE CULTURE RESULTS MAY NOT REPRESENT CLINICAL INFECTION. CONSIDER NEED FOR ANTIBIOTICS IN THE CONTEXT OF UTI SYMPTOMS. Test(s) ordered: URINE CULTURE([facility]).......... completed: Aug 29, 2024 08:33 * BACTERIOLOGY FINAL REPORT => Aug 29, 2024 08:32 TECH CODE: [id number] CULTURE RESULTS: 1. KLEBSIELLA OXYTOCA/RAOULTELLA ORNITHINOLYTICA - [...] Performing Laboratory: Klebsiella Oxytoca/raoultella Ornithinolytica [facility]formed By: [facility] [CLIA# [id number]] [address] [place] [address] Pseudomonas Aeruginosa Performed By: [facility] [CLIA# [id number]] [address] [place] [address] Bact Report Remark #1 Performed By: [facility] [CLIA# [id number]] [address] [place] [address] Bact Report Remark #2 Performed By: [facility] [CLIA# [id number]] [address] [place] [address] ENRIQUETA FLORES Encounter Notes: All associated encounter notes This section contains the clinical notes associated to the Encounter. Date/Time Encounter Note(s) Provider Source Sep 15, 2024 11:46 AM PRIMARY CARE NOTE: LOCAL TITLE: WALK-IN NOTE PRIMARY CARE (T) STANDARD TITLE: PRIMARY CARE NOTE DATE OF NOTE: SEP 15, 2024@11:46 ENTRY DATE: SEP 15, 2024@11:46:34 AUTHOR: IRAJ DELGADO COSIGNER: URGENCY: STATUS: COMPLETED <====Click to Start Advanced Medical Support Warren presents to the Primary Care clinic with the following request: [ ]Medication Renewal/Refill [ ]Consultation with Team RN [ ]Symptoms [ X ]Other The Warren states they are: [ ]Waiting [ X ]Not Waiting No Walk in visit scheduled with PACT Nurse [ X ] At this encounter the 's demographics were verified. [ X ] At this encounter the Warren's Insurance information was verified. [ X ] At this encounter the below scheduled visits for the were discussed and appointment reminder card was offered. IS CHECKING ON THE STATUS OF RADIOLOGY TEST RESULTS. STATED HE WOULD LIKE A COPY OF REPORT TO TAKE WITH HIM. CAN BE REACHED AT [phone]. Future appointments: 12/13/2024 13:30 CWM/SO/PACT 1 [employer] 01/02/2025 10:00 CWM/NO/OPTOMETRY/JEWEL /mariana/ KENIA DELGADO ADVANCED HEAD OF MOBILE Signed: 09/15/2024 11:49 Receipt Acknowledged By: 09/15/2024 12:15 /mariana/ SHANTAL LOPEZ REGISTERED NURSE 09/22/2024 09:24 /es/ SANDEEP VAZQUEZ LPN, SHARI K [place]
--- OUTSIDE RECORDS SUMMARY | 2024-09-29 12:07 | XMS_ITS | Encounter Summary ---
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 Organization [facility] Address [address] [place] [address] Care Team Providers Care Blanket Washer Name Role Phone ROWENA ROY Primary Care [...] INDIV IDUAL - MASS Sep 21, 2023 [id number] [phone] [facility] ([facility]) Sep 21, 2023 [id number] [phone] MARVIN DUGANI S PATIENT HUSKY MEDICAID HUSKY PLAN May 22, 2022 MEDICAI D [id number] GENET DUGAN S PATIENT MEDICARE ([facility]) MEDICARE (M) PART B May 22, 2022 PART B [id number] RE14 [phone] MARVIN DUGANI S PATIENT MEDICARE ([facility]) MEDICARE (M) PART A Feb 19, 2009 PART A [id number] [id number] [phone] DUGAN,GENET S PATIENT MEDICARE PART D (WNR) MEDICARE (M) PART D Jul 22, 2022 PART D [id number] [id number] GENET DUGAN S PATIENT [facility] (WNR) MEDICARE ADVANTAGE [facility] (WNR) Sep 21, 2022 [id number] GENET DUGAN S PATIENT [facility] (WNR) MEDICARE ADVANTAGE MCR (WNR) Sep 21, 2022 [id number] GENET DUGAN PATIENT Selected Encounter This section includes the information on record at [place] for the Encounter. Date/Time Encounter Type Encounter Description Reason Pro vider Source Sep 15, 2024 12:17 PM Outpatient Encounter PRIMARY CARE/MEDICINE IHE Encounter Template Text not used by [place] Plan of Treatment: Future Appointments (+ 6 months) and Future Tests (+/- 45 days) The Plan of Treatment section includes future care activities for the patient from all [place] treatment[facility]. This section includes future appointments and [...] 02, 2025 10:00 AM AMBULATORY - MEDICINE [facility] Active, Pending, and Scheduled Orders This section includes a listing of several types of active, pending, and scheduled orders, including clinic medications orders, diagnostic test orders, procedure orders and consult orders; where the start date of the order is 45 days before the date of the Encounter or 45 days after the date of theEncounter. The data comes from all [place] treatment facilities. Test Date/Time Test Type Test Details Facility Name Aug 09, 2024 09:40 AM Consult Order COMMUNITY CARE-UROLOGY Cons Installation Specialist's Choice [place] [facility] Lab Results: +/- 30 days of the encounter This section includes the Chemistry and Hematology Lab Results on record with [place] for the patient. Radiology Reports and Pathology Reports are provided separately, in subsequent sections. Lab Results This section contains the Chemistry/Hematology Results that were resulted 30 days before or 30 daysafter the date of the Encounter. Date/Time Source Result Type Result - Unit Interpretation Reference Range Comment Aug 24, 2024 11:28 AM [place] CBC AND DIFF (AUTO) Specimen Type: BLOOD No comment entered. Ordering Provider: CAMACHO ROY Report Released Date/Time: Aug 24, 2024 11:07 AM Reporting Lab: [facility] [address] [facility] [address] Performing Lab: [facility] [address] [facility] [address] WBC 8.84 10*3/uL 4.50-11.00 RBC 4.72 10*6/uL [...] 10*3/uL 0.00-0.00 Aug 24, 2024 11:28 AM [facility] MICROSCOPIC AUTOMATED, URINE Specimen Type: URINE Comment: If Glucose = >500 and Ketones are positive, please alert the Physician. Ordering Provider: VINICIO VERDUZCO Report Released Date/Time: Aug 09, 2024 09:43 AM Reporting Lab: [address] [address] Performing Lab: [address] [address] UA WBC 0-5 /[HPF] 0-5 UA BACTERIA 1+ /[HPF] NoneObs UA TRIPLE PHOSPHATE CRYSTALS MODERATE /[HPF] Not Established UA RBC 6-10 /[HPF] H 0-3 Aug 24, 2024 11:28 AM [facility] URINALYSIS Specimen Type: URINE Comment: If Glucose = >500 and Ketones are positive, please alert the Physician. Ordering Provider: VINICIO VERDUZCO Report Released Date/Time: Aug 09, 2024 09:43 AM Reporting Lab: [address] [address] Performing Lab: [address] [address] UA COLOR Light-Brown Yellow UA APPEARANCE Turbid [...] ALL of a patient's completed or amended [place] Advance and Rescinded Directives. The entries below indicate that a directive exists for the patient, but an actual copy is not included with this document. The data comes from all [place] facilities. Date Advance Directives Provider Source Apr 04, 2024 [facility] Radiology Reports: +/- 30 days of [...] the Encounter. The data comes from all [place] treatment facilities. Date/Time Radiology Report Provider Source Sep 01, 2024 10:[address] W/O CONT: JAKE DUGAN [id number] -1945 M Exm Date: SEP 01, 2024@10:54 Req Phys: LUBA,NOLAN Pat Loc: CWM/SO/PACT 9 (Req'g Loc) Img Loc: NHM/CT Service: Unknown [place] [facility] [place] [address] (Case [id number] COMPLETE) CT THORAX W/O CONT (CT Detailed) CPT:09626 Reason for Study: LDCT Clinical History: lung CA screen/surveillance as per protocol Report Status: Verified Date Reported: SEP 01, 2024 Date Verified: SEP 01, 2024 Enlisted Aircrew/Aerial Observer/Gunner E-Sig:/ES/STARR MCDANIEL JR Report: Study: Noncontrast CT [...] Primary Interpreting Staff: STARR MCDANIEL JR, Radiologist (Enlisted Aircrew/Aerial Observer/Gunner) /STARR HERNANDEZ JR [facility] Aug 16, 2024 02:[address] ABDOMEN AND PELVIS WITH CONTRAST: JAKE DUGAN [id number] -1945 M Exm Date: AUG 16, 2024@14:04 Req Phys: LUBA,NOLAN Pat Loc: CWM/SO/PACT 9 (Req'g Loc) Img Loc: [facility]/CT Service: [place] [address] (Case 109 COMPLETE) CT ABDOMEN AND PELVIS WITH CONTRA(CT Detailed) CPT:07594 Contrast Media : Non-ionic Iodinated Reason for Study: prostate CA Clinical History: Report Status: Verified Date Reported: AUG 16, 2024 Date Verified: AUG 16, 2024 Enlisted Aircrew/Aerial Observer/Gunner E-Sig: Report: CT ABDOMEN AND PELVIS WITH CONTRAST HISTORY: prostate CA COMPARISON: 03/14/2024 TECHNIQUE: CT of the abdomen and pelvis with multiplanar reformats was performed at the local [place] facility. A contrast-enhanced series was obtained in the portal venous phase. 350 images were received by the [place] National Teleradiology Program (NTP) for interpretation. RADIATION [...] tumor infiltration. READING PHYSICIAN: Kwabena Perez M.D. -[id number] 08/16/2024 20:18 [facility] National Teleradiology Program [phone] (For Medical Practitioner Use Only) Attention Patients / Veterans: If you have questions or concerns about these test results, please contact your ordering provider or primary care team. Primary Diagnostic Code: POSSIBLE MALIGNANCY Primary Interpreting Staff: RADIOLOGY,OUTSIDE SERVICE, Staff Physician / RADIOLOGY,OUTSIDE SERVICE [place] [facility] [place] [facility] Pathology Reports: +/- 30 days of [...] the Encounter. The data comes from all [place] treatment facilities. Date/Time Pathology Report Provider Source Aug 24, 2024 11:28 AM LR MICROBIOLOGY RE PORT: Reporting Lab: [place] CNT NIHARIKA M[facility] [CLIA# [id number]] [address] [place] [address] Accession [UID]: [id number] [[id number]] Received: Aug 24, 2024@11:28 Collection sample: URINE CLEAN CATCH Collection date: Aug 24, 2024 11:28 Site/Specimen: URINE Provider: NOLAN VERDUZCO Comment on specimen: POSITIVE CULTURE RESULTS MAY NOT REPRESENT CLINICAL INFECTION. CONSIDER NEED FOR ANTIBIOTICS IN THE CONTEXT OF UTI SYMPTOMS. Test(s) ordered: URINE CULTURE([facility]).......... completed: Aug 29, 2024 08:33 * BACTERIOLOGY FINAL REPORT => Aug 29, 2024 08:32 TECH CODE: [id number] CULTURE RESULTS: 1. KLEBSIELLA OXYTOCA/RAOULTELLA ORNITHINOLYTICA - [...] Klebsiella Oxytoca/raoultella Ornithinolytica Performed By: [facility] [CLIA# [id number]] [address] [place] [address] Pseudomonas Aeruginosa Performed By: [facility] [CLIA# [id number]] [address] [place] [address] Bact Report Remark #1 Performed By: [facility] [CLIA# [id number]] [address] [place] [address] Bact Report Remark #2 Performed By: [facility] [CLIA# [id number]] [address] [place] [address] ENRIQUETA FLORES Encounter Notes: All associated encounter notes This section contains the clinical notes associated to the Encounter. Date/Time Encounter Note(s) Provider Source Sep 15, 2024 12:17 PM ADMINISTRATIVE NOT E: LOCAL TITLE: ADMINISTRATIVE NOTE STANDARD TITLE: ADMINISTRATIVE NOTE DATE OF NOTE: SEP 15, 2024@12:17 ENTRY DATE: SEP 15, 2024@12:17:12 AUTHOR: SHANTAL LOPEZ EXP COSIGNER: URGENCY: STATUS: COMPLETED [place] walked in to clinic to request a copy of imaging report from 09/01/24. [place] stated he has already signed an SURENDRA form previously, copy of report given. /mariana/ SHANTAL LOPEZ REGISTERED NURSE Signed: 09/15/2024 12:19 SHANTAL OLPEZ
--- OUTSIDE RECORDS SUMMARY | 2024-09-29 12:07 | XMS_ITS | Encounter Summary ---
Author Name [facility] [place] Organization [place] Address [address] [place] [address] Care Team Providers Care Shipping Lead Name Role Phone ROWENA ROY Primary Care [...] Segal's Name Patient's Relationship to Policy Segal [facility]) MEDICARE ADVANTAGE [place] INDIV IDUAL - MASS Sep 21, 2023 [id number] [phone] GENET DUGAN S [facility]) MEDICARE ADVANTAGE [facility] ([facility]) Sep 21, 2023 [id number] [phone] MARVIN DUGANI S PATIENT HUSKY MEDICAID HUSKY PLAN May 22, 2022 MEDICAI D [id number] MARVIN DUGANI S PATIENT MEDICARE ([facility]) MEDICARE (M) PART B May 22, 2022 PART B [id number] [id number] [phone] MARVIN DUGANI S PATIENT MEDICARE ([facility]) MEDICARE (M) PART A Feb 19, 2009 PART A [id number] DUGAN,GENET S PATIENT MEDICARE PART D (WNR) MEDICARE (M) PART D Jul 22, 2022 PART D [id number] [phone] GENET DUGAN PATIENT [facility] (WNR) MEDICARE ADVANTAGE [facility] (WNR) Sep 21, 2022 [id number] GENET DUGAN PATIENT [facility] (WNR) MEDICARE ADVANTAGE MCR (WNR) Sep 21, 2022 [id number] [id number] GENET DUGAN PATIENT Selected Encounter This section includes the information on record at [place] for the Encounter. Date/Time Encounter Type Encounter Description Reason Pro vider Source Sep 15, 2024 09:29 AM Outpatient Encounter ADMIN PAT ACTIVTIES ([facility]AS[facility]CT) [...] 13, 2024 01:30 PM AMBULATORY - MEDICINE [facility] Jan 02, 2025 10:00 AM AMBULATORY - MEDICINE [facility] [place] [facility] Active, Pending, and Scheduled Orders [...] 09:40 AM Consult Order COMMUNITY CARE-UROLOGY Cons Instructor Extension Work's Choice [place] [facility] [facility] Lab Results: +/- 30 days of [...] Range Comment Aug 24, 2024 11:28 AM [place] CBC AND DIFF (AUTO) Specimen Type: BLOOD No comment entered. Ordering Provider: CAMACHO ROY Report Released Date/Time: Aug 24, 2024 11:07 AM Reporting Lab: [facility] [address] [facility] [address] Performing Lab: [facility] [address] [facility] [address] WBC 8.84 10*3/uL 4.50-11.00 RBC 4.72 10*6/uL [...] 10*3/uL 0.00-0.00 Aug 24, 2024 11:28 AM [facility] MICROSCOPIC AUTOMATED, URINE Specimen Type: URINE Comment: If Glucose = >500 and Ketones are positive, please alert the Physician. Ordering Provider: VINICIO VERDUZCO Report Released Date/Time: Aug 09, 2024 09:43 AM Reporting Lab: [facility] [address] [facility] [address] Performing Lab: [facility] [address] [facility] [address] UA WBC 0-5 /[HPF] 0-5 UA BACTERIA 1+ /[HPF] NoneObs UA TRIPLE PHOSPHATE CRYSTALS MODERATE /[HPF] Not Established UA RBC 6-10 /[HPF] H 0-3 Aug 24, 2024 11:28 AM [facility] URINALYSIS Specimen Type: URINE Comment: If Glucose = >500 and Ketones are positive, please alert the Physician. Ordering Provider: VINICIO VERDUZCO Report Released Date/Time: Aug 09, 2024 09:43 AM Reporting Lab: [address] [address] Performing Lab: [address] [address] UA COLOR Light-Brown Yellow UA APPEARANCE Turbid [...] AM CHEST CT W/O CONT: JAKE DUGAN [id number] -1945 M Exm Date: SEP 01, 2024@10:54 Req Phys: LUBA,NOLAN Pat Loc: CWM/SO/PACT 9 (Req'g Loc) Img Loc: [facility]/CT Service: [place] [address] (Case [id number] COMPLETE) CT THORAX W/O CONT (CT Detailed) CPT:86772 Reason for Study: LDCT Clinical History: lung CA screen/surveillance as per protocol Report Status: Verified Date Reported: SEP 01, 2024 Date Verified: SEP 01, 2024 Fish Processing Supervisor E-Sig:/ES/STARR MCDANIEL JR Report: Study: Noncontrast CT [...] Primary Interpreting Staff: STARR MCDANIEL JR, Radiologist (Fish Processing Supervisor) /STARR HERNANDEZ JR [facility] Aug 16, 2024 02:[address] ABDOMEN AND PELVIS WITH CONTRAST: JAKE DUGAN [id number] -1945 M Exm Date: AUG 16, 2024@14:04 Req Phys: LUBA,NOLAN Pat Loc: CWM/SO/PACT 9 (Req'g Loc) Img Loc: [facility]/CT Service: Unknown [place] [address] (Case [id number] COMPLETE) CT ABDOMEN AND PELVIS WITH CONTRA(CT Detailed) CPT:49376 Contrast Media : Non-ionic Iodinated Reason for Study: prostate CA Clinical History: Report Status: Verified Date Reported: AUG 16, 2024 Date Verified: AUG 16, 2024 Fish Processing Supervisor E-Sig: Report: CT ABDOMEN AND PELVIS [...] tumor infiltration. READING PHYSICIAN: Kwabena Perez M.D. -[id number] 08/16/2024 20:18 [facility] National Teleradiology Program [phone] (For Medical Practitioner Use Only) Attention Patients / Veterans: If you have questions or concerns about these test results, please contact your ordering provider or primary care team. Primary Diagnostic Code: POSSIBLE MALIGNANCY Primary Interpreting Staff: RADIOLOGY,OUTSIDE SERVICE, Staff Physician / RADIOLOGY,OUTSIDE SERVICE [place] [facility] Pathology Reports: +/- 30 days of [...] AM LR MICROBIOLOGY RE PORT: Reporting Lab: [place] CNTR [facility] [facility] [CLIA# [id number]] [address] [place] [address] Accession [UID]: [id number] [[id number]] Received: Aug 24, 2024@11:28 Collection sample: URINE CLEAN CATCH Collection date: Aug 24, 2024 11:28 Site/Specimen: URINE Provider: NOLAN VERDUZCO Comment on specimen: POSITIVE CULTURE RESULTS MAY NOT REPRESENT CLINICAL INFECTION. CONSIDER NEED FOR ANTIBIOTICS IN THE CONTEXT OF UTI SYMPTOMS. Test(s) ordered: [facility]......... completed: Aug 29, 2024 08:33 * BACTERIOLOGY FINAL REPORT => Aug 29, 2024 08:32 TECH CODE: [id number] CULTURE RESULTS: 1. KLEBSIELLA OXYTOCA/RAOULTELLA ORNITHINOLYTICA - [...] Performing Laboratory: Klebsiella Oxytoca/raoultella Ornithinolytica Performed By: [facility] [CLIA# [id number]] [address] [place] [address] Pseudomonas Aeruginosa Performed By: [facility] [CLIA# [id number]] [address] [place] [address] Bact Report Remark #1 Performed By: [facility] [CLIA# [id number]] [address] [place] [address] Bact Report Remark #2 Performed By: [facility] [CLIA# [id number]] [address] [place] [address] ENRIQUETA FLORES [place] Encounter Notes: All associated encounter notes This section contains the clinical notes associated to the Encounter. Date/Time Encounter Note(s) Provider Source Sep 15, 2024 11:19 AM ADDENDUM: LOCAL TITLE: Addendum STANDARD TITLE: ADDENDUM DATE OF NOTE: SEP 15, 2024@11:19:57 ENTRY DATE: SEP 15, 2024@11:19:58 AUTHOR: SHANTAL LOPEZ EXP COSIGNER: URGENCY: STATUS: COMPLETED [place] specifically requesting to speak with provider. Message forwarded to provider to review and advise. /mariana/ SHANTAL LOPEZ REGISTERED NURSE Signed: 09/15/2024 11:21 Receipt Acknowledged By: 09/19/2024 09:05 /mariana/ ROWENA ROY NP NURSE PRACTITIONER --- Original Document --- 09/15/24 CCC: SCHEDULING ADMINISTRATION: Patient Demographics Patient Name: JAKE DUGAN Patient Primary Phone: [phone] Patient Primary Address: [address] [place] [address] Patient : 1945 Patient Age: 79 Caller/Recipient Relation to Patient: Self Caller Name: JAKE DUGAN Administrative Administrative Note Reason: Returned Call Administrative Note Comments: [place]abor returning missed call, is not sure who called. IMPORTANT: This note was created by [facility] Clinical Contact Center staff. Please do not alert the staff member by adding them as a signer for future communications. Alerts are not monitored by this user. /mariana/ DARWIN SHARP [facility] AMSA Signed: 09/15/2024 09:29 Receipt Acknowledged By: 09/15/2024 11:19 /mariana/ SHANTAL LOPEZ REGISTERED NURSE 09/15/2024 12:57 /mariana/ ERIC BARTON ADVANCE AFTER SCHOOL COUNSELOR * AWAITING SIGNATURE * TAMMIE DIAZ LATASHA [place] [facility] [place] [facility] Sep 15, 2024 09:29 AM ADMINISTRATIVE NOT E: LOCAL TITLE: CCC: SCHEDULING ADMINISTRATION STANDARD TITLE: ADMINISTRATIVE NOTE DATE OF NOTE: SEP 15, 2024@09:29:27 ENTRY DATE: SEP 15, 2024@09:29:28 AUTHOR: DARWIN CHENEY COSIGNER: URGENCY: STATUS: COMPLETED CCC: SCHEDULING ADMINISTRATION Has ADDENDA Patient Demographics Patient Name: JAKE DUGAN Patient Primary Phone: [phone] Patient Primary Address: [address] [place] [address] Patient : 1945 Patient Age: 79 Caller/Recipient Relation to Patient: Self Caller Name: JAKE DUGAN Administrative Administrative Note Reason: Returned Call Administrative Note Comments: Tabor returning missed call, is not sure who called. IMPORTANT: This note was created by [facility] Clinical Contact Center staff. Please do not alert the staff member by adding them as a signer for future communications. Alerts are not monitored by this user. /mariana/ DARWIN SHARP [facility] AMSA Signed: 09/15/2024 09:29 Receipt Acknowledged By: 09/15/2024 11:19 /mariana/ SHANATL LOPEZ REGISTERED NURSE 09/15/2024 12:57 /mariana/ ERIC WONG AFTER SCHOOL COUNSELOR 09/22/2024 09:40 /mariana/ TAMMIE DIAZ LPN LPN 09/15/2024 ADDENDUM STATUS: COMPLETED specifically requesting to speak with provider. Message forwarded to provider to review and advise. /mariana/ SHANTAL LOPEZ REGISTERED NURSE Signed: 09/15/2024 11:21 Receipt Acknowledged By: 09/19/2024 09:05 /es/ ROWENA ROY NP NURSE PRACTITIONER [facility]
--- OUTSIDE RECORDS SUMMARY | 2024-09-29 12:07 | XMS_ITS | Encounter Summary ---
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 Organization [facility] Address [address] [place] [address] Care Team Providers Care Double End Tenoner Setter Name Role Phone ROWENA ROY Primary [...] Segal's Name Patient's Relationship to Policy Segal [facility] (R) MEDICARE ADVANTAGE [place] INDIV IDUAL - [place] Sep 21, 2023 [id number] [phone] GENET DUGAN S [facility]IENT [facility] ([facility]) MEDICARE ADVANTAGE [facility] ([facility]) Sep 21, 2023 [id number] [phone] MARVIN DUGANI S PATIENT HUSKY MEDICAID HUSKY PLAN May 22, 2022 MEDICAI D [id number] GENET DUGAN S PATIENT MEDICARE ([facility]) MEDICARE (M) PART B May 22, 2022 PART B [id number] MARVIN DUGANI S PATIENT MEDICARE ([facility]) MEDICARE (M) PART A Feb 19, 2009 PART A [id number] [id number] DUGAN,GENET S PATIENT MEDICARE PART D (WNR) MEDICARE (M) PART D Jul 22, 2022 PART D [id number] [phone] GENET DUGAN S PATIENT [facility] (WNR) MEDICARE ADVANTAGE [facility] (WNR) Sep 21, 2022 [id number] GENET DUGAN S PATIENT [facility] (WNR) MEDICARE ADVANTAGE MCR (WNR) Sep 21, 2022 [id number] [phone] GENET DUGAN PATIENT Selected Encounter This section includes the information on record at [place] for the Encounter. Date/Time Encounter Type Encounter Description Reason Pro vider Source Sep 09, 2024 04:05 PM Outpatient Encounter PRIMARY CARE/MEDICINE [facility] Encounter Template Text not used by [place] Plan of Treatment: Future Appointments (+ 6 months) and Future Tests (+/- 45 days) The Plan of Treatment section includes future care activities for the patient from all [place] [facility]. This section includes future appointments and future [...] 02, 2025 10:00 AM AMBULATORY - MEDICINE [facility] Active, Pending, and Scheduled Orders [...] 09:40 AM Consult Order COMMUNITY CARE-UROLOGY Cons Implementation Engineer's Choice [place] [facility] [place] [facility] Lab Results: +/- [...] Range Comment Aug 24, 2024 11:28 AM [place] CBC AND DIFF (AUTO) Specimen Type: BLOOD No comment entered. Ordering Provider: CAMACHO ROY Report Released Date/Time: Aug 24, 2024 11:07 AM Reporting Lab: [facility] [address] [facility] [address] Performing Lab: [facility] [address] [facility] [address] WBC 8.84 10*3/uL 4.50-11.00 RBC 4.72 10*6/uL [...] 10*3/uL 0.00-0.00 Aug 24, 2024 11:28 AM [facility] MICROSCOPIC AUTOMATED, URINE Specimen Type: URINE Comment: If Glucose = >500 and Ketones are positive, please alert the Physician. Ordering Provider: VINICIO VERDUZCO Report Released Date/Time: Aug 09, 2024 09:43 AM Reporting Lab: [address] [address] Performing Lab: [address] [address] UA WBC 0-5 /[HPF] 0-5 UA BACTERIA 1+ /[HPF] NoneObs UA TRIPLE PHOSPHATE CRYSTALS MODERATE /[HPF] Not Established UA RBC 6-10 /[HPF] H 0-3 Aug 24, 2024 11:28 AM [facility] URINALYSIS Specimen Type: URINE Comment: If Glucose = >500 and Ketones are positive, please alert the Physician. Ordering Provider: VINICIO VERDUZCO Report Released Date/Time: Aug 09, 2024 09:43 AM Reporting Lab: [address] [address] Performing Lab: [address] [address] UA COLOR Light-Brown Yellow UA APPEARANCE Turbid [...] AM CHEST CT W/O CONT: JAKE DUGAN [id number] -1945 M Exm Date: SEP 01, 2024@10:54 Req Phys: LUBA,NOLAN Pat Loc: CWM/SO/PACT 9 (Req'g Loc) Img Loc: [facility]/CT Service: Unknown [place] [facility] [place] [address] (Case [id number] COMPLETE) CT THORAX W/O CONT (CT Detailed) CPT:78596 Reason for Study: LDCT Clinical History: lung CA screen/surveillance as per protocol Report Status: Verified Date Reported: SEP 01, 2024 Date Verified: SEP 01, 2024 Precise Winder E-Sig:/ES/STARR MCDANIEL JR Report: Study: Noncontrast CT [...] Primary Interpreting Staff: STARR MCDANIEL JR, Radiologist (Precise Winder) /STARR HERNANDEZ JR [facility] Aug 16, 2024 02:[address] ABDOMEN AND PELVIS WITH CONTRAST: JAKE DUGAN [id number] -1945 M Exm Date: AUG 16, 2024@14:04 Req Phys: LUBA,NOLAN Pat Loc: CWM/SO/PACT 9 (Req'g Loc) Img Loc: [facility]/CT Service: [place] [address] (Case [id number] COMPLETE) CT ABDOMEN AND PELVIS WITH CONTRA(CT Detailed) CPT:09298 Contrast Media : Non-ionic Iodinated Reason for Study: prostate CA Clinical History: Report Status: Verified Date Reported: AUG 16, 2024 Date Verified: AUG 16, 2024 Precise Winder E-Sig: Report: CT ABDOMEN AND PELVIS WITH [...] tumor infiltration. READING PHYSICIAN: Kwabena Perez M.D. -[id number] 08/16/2024 20:18 [facility] National Teleradiology Program [phone] (For Medical Practitioner Use Only) Attention Patients / Veterans: If you have questions or concerns about these test results, please contact your ordering provider or primary care team. Primary Diagnostic Code: POSSIBLE MALIGNANCY Primary Interpreting Staff: RADIOLOGY,OUTSIDE SERVICE, Staff Physician / RADIOLOGY,OUTSIDE SERVICE [place] [facility] [place] [facility] Pathology Reports: +/- 30 days of [...] LR MICROBIOLOGY RE PORT: Reporting Lab: [place] CNT NIHARIKA [facility] [CLIA# [id number]] [address] [place] [address] Accession [UID]: [id number] [[id number]] Received: Aug 24, 2024@11:28 Collection sample: URINE CLEAN CATCH Collection date: Aug 24, 2024 11:28 Site/Specimen: URINE Provider: NOLAN VERDUZCO Comment on specimen: POSITIVE CULTURE RESULTS MAY NOT REPRESENT CLINICAL INFECTION. CONSIDER NEED FOR ANTIBIOTICS IN THE CONTEXT OF UTI SYMPTOMS. Test(s) ordered: URINE CULTURE([facility]).......... completed: Aug 29, 2024 08:33 * BACTERIOLOGY FINAL REPORT => Aug 29, 2024 08:32 TECH CODE: [id number] CULTURE RESULTS: 1. KLEBSIELLA OXYTOCA/RAOULTELLA ORNITHINOLYTICA - [...] Performing Laboratory: Klebsiella Oxytoca/raoultella Ornithinolytica Performed By: [facility] [CLIA# [id number]] [address] [place] [address] Pseudomonas Aeruginosa Performed By: [facility] [CLIA# [id number]] [address] [place] [address] Bact Report Remark #1 Performed By: [facility] [CLIA# [id number]] [address] [place] [address] Bact Report Remark #2 Performed By: [facility] [CLIA# [id number]] [address] [place] [address] ENRIQUETA FLORES [place] Encounter Notes: All associated encounter notes This section contains the clinical notes associated to the Encounter. Date/Time Encounter Note(s) Provider Source Sep 12, 2024 09:38 AM ADDENDUM: LOCAL TITLE: Addendum STANDARD TITLE: ADDENDUM DATE OF NOTE: SEP 12, 2024@09:38:19 ENTRY DATE: SEP 12, 2024@09:38:20 AUTHOR: ANNI DE LA VEGA COSIGNER: URGENCY: STATUS: COMPLETED Adding correct PACT TRAFFIC OPERATIONS MANAGER. /mariana/ MELANIE DE LA VEGA LPN LPN Signed: 09/12/2024 09:38 Receipt Acknowledged By: 09/22/2024 09:09 /es/ TAMMIE DIAZ LPN LPN --- Original Document --- 09/09/24 WALK-IN NOTE PRIMARY CARE (T): <====Click to Start Advanced Medical Support presents to the Primary Care clinic with the following request: [ ]Medication Renewal/Refill [ ]Consultation with Team RN [ ]Symptoms [ X ]Other The [place] states they are: [ ]Waiting [ X ]Not Waiting No Walk in visit scheduled with PACT Nurse [ X ] At this encounter the [place]'s demographics were verified. [ X ] At this encounter the 's Insurance information was verified. [ X ] At this encounter the below scheduled visits for the were discussed and appointment reminder card was offered. Future appointments: 12/13/2024 13:30 CWM/SO/PACT 1 CUSTOM FURRIER 01/02/2025 10:00 CWM/NO/OPTOMETRY/MERHAR WOULD LIKE CALLBACK TO DISCUSS HIS UROLOGY CONSULT APPT. HE HAD on 09/07/24. /es/ JHOAN DUGGAN ADVANCED HAND STRIPPER Signed: 09/09/2024 16:09 Receipt Acknowledged By: 09/12/2024 15:12 /es/ SHANTAL LOPEZ REGISTERED NURSE 09/12/2024 09:39 /es/ MELANIE DE LA VEGA LPN LPN 09/09/2024 ADDENDUM STATUS: COMPLETED Spoke with . He is requesting for PCP to reach out to discuss CT imaging. He is also requesting for a copy the CT report. Advised he would have to sign a release to get a copy. verbalized understanding. Impression: Too numerous to count bilateral small pulmonary nodules with single dominant right lower lobe pulmonary nodule. If available, comparison with any prior outside CT chest imaging is recommended to assess for interval change. Otherwise, follow-up may be as detailed above, given patient's age almost outside the parameters for lung cancer screening. PCP -- Please reach out to to discuss report. Report available in [facility]. /es/ LATISHA CORRALES RN REGISTERED NURSE Signed: 09/09/2024 16:37 MELANIE DE LA VEGA Sep 09, 2024 04:05 PM PRIMARY CARE NOTE: LOCAL TITLE: WALK-IN NOTE PRIMARY CARE (T) STANDARD TITLE: PRIMARY CARE NOTE DATE OF NOTE: SEP 09, 2024@16:05 ENTRY DATE: SEP 09, 2024@16:05:40 AUTHOR: JHOAN DUGGAN EXP COSIGNER: URGENCY: STATUS: COMPLETED WALK-IN NOTE [...] encounter the below scheduled visits for the [place] were discussed and appointment reminder card was offered. Future appointments: 12/13/2024 13:30 CWM/SO/PACT 1 CUSTOM FURRIER 01/02/2025 10:00 CWM/NO/OPTOMETRY/MERHAR WOULD LIKE CALLBACK TO DISCUSS HIS UROLOGY CONSULT APPT. HE HAD on 09/07/24. /es/ JHOAN DUGGAN ADVANCED HAND STRIPPER Signed: 09/09/2024 16:09 Receipt Acknowledged By: 09/12/2024 15:12 /es/ SHANTAL LOPEZ REGISTERED NURSE 09/12/2024 09:39 /es/ MELANIE DE LA VEGA LPN LPN 09/09/2024 ADDENDUM STATUS: COMPLETED Spoke with . He is requesting for PCP to reach out to discuss CT imaging. He is also requesting for a copy the CT report. Advised he would have to sign a release to get a copy. verbalized understanding. Impression: Too numerous to count bilateral small pulmonary nodules with single dominant right lower lobe pulmonary nodule. If available, comparison with any prior outside CT chest imaging is recommended to assess for interval change. Otherwise, follow-up may be as detailed above, given patient's age almost outside the parameters for lung cancer screening. PCP -- Please reach out to to discuss report. Report available in [facility]. /es/ LATISHA CORRALES RN REGISTERED NURSE Signed: 09/09/2024 16:37 09/12/2024 ADDENDUM STATUS: COMPLETED Adding correct PACT TRAFFIC OPERATIONS MANAGER. /es/ MELANIE DE LA VEGA LPN LPN Signed: 09/12/2024 09:38 Receipt Acknowledged By: * AWAITING SIGNATURE * TAMMIE DIAZ,JHOAN MCDONOUGH
== END 2024-09-29 12:52 | disposition home or self-care (01) ==
PROVIDERS: PCP Internal Medicine; Visit Provider Urology
DX: C61 Malignant neoplasm of prostate (principal); C77.5 Secondary and unspecified malignant neoplasm of intrapelvic lymph nodes; T83.511A Infection and inflammatory reaction due to indwelling urethral catheter, initial encounter; N39.0 Urinary tract infection, site not specified
CPT/HCPCS: 99214

== ENCOUNTER 2024-09-29 11:22 | Outpatient (REF) | payer OTHER, SELFPAY ==
--- OUTSIDE RECORDS SUMMARY | 2024-09-29 14:23 | XMS_ITS | Continuity of Care Document ---
Author Name [facility] Organization [facility] Care Team Providers Care Finance Specialist Name Role Phone [facility] Unavailable Unavailable Problems Combined list of problems from Department of Defense and Veterans Affairs facilities. It does not include entries that were removed or entered in error. Problem Status Onset Date Problem Type Date of Resolution Comments Source Atypical chest pain Active Condition February 12, 2016 Entered By: ALICIA MACHADO Comment: [facility] [phone] PA OV 12-05-15May 2015 Entered By: ALICIA [...] 11 16 Entered By: ALICIA MACHADO Comment: [facility] [phone] PA OV 12-05-15 [facility] Essential hypertension Active Condition February 12, 2016 Entered By: ALICIA MACHADO Comment: [facility] [phone] PA OV 12-05-15 [facility] [place] [facility] [place] [facility] Olecranon bursitis Active Condition [place] Osteoarthritis (SNOMED CT 436419349) Active Condition Dec 07, 2017 Entered By: ALICIA MACHADO Comment: C/S worst at C6-C7 2017 Entered By: ALICIA MACHADO Comment: mod OA Interphalamgeal joint right thumb 09/06 [facility] [place] Paraesthesia of lower extremity (SNOMED CT 458809542) Active Condition Apr 23, 2021 Entered By: [...] 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 [place] Diagnosis: ICD-10-CM C61 Malignant neoplasm of prostate Active Diagnosis [place] Diagnosis: ICD-10-CM Z46.0 Encounter for fit/adjst of spectacles and contact lenses Active Diagnosis [facility] [place] Diagnosis: ICD-10-CM N50.9 Disorder of male genital organs, unspecified Active Diagnosis [place] Diagnosis: ICD-10-CM Z01.810 Encounter for preprocedural cardiovascular examination Active Diagnosis [place] Diagnosis: ICD-10-CM Z23 Encounter for immunization Active Diagnosis [place] Diagnosis: ICD-10-CM Z51.81 Encounter for therapeutic drug level monitoring Active Diagnosis [facility] Diagnosis: ICD-10-CM 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, unspecified Active Diagnosis [place] Diagnosis: ICD-10-CM L82.1 Other seborrheic keratosis Active Diagnosis [facility] Diagnosis: ICD-10-CM Z13.89 Encounter for screening for other disorder [facility] Diagnosis: ICD-10-CM L02.818 Cutaneous abscess of other sites Active Diagnosis [facility] D Diagnosis: ICD-10-CM L02.212 Cutaneous abscess of back [any part, except buttock] Active Diagnosis [place] Diagnosis: ICD-10-CM W06.XXXA Fall from bed, initial encounter Active Diagnosis [place] Diagnosis: ICD-10-CM H40.013 Open angle with borderline findings, low risk, bilateral [facility] [place] [facility] Diagnosis: ICD-10-CM R97.20 Elevated prostate specific antigen [PSA] Active Diagnosis [place] Diagnosis: ICD-10-CM I10 Essential (primary) hypertension Active Diagnosis [place] Diagnosis: ICD-10-CM M54.59 Other low back pain Active [facility] Diagnosis: ICD-10-CM 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 [place] Diagnosis: ICD-10-CM Z59.00 Homelessness unspecified Active Diagnosis [place] Diagnosis: ICD-10-CM Z00.01 Encounter for general adult medical exam w abnormal findings Active Diagnosis [facility] [place] Diagnosis: ICD-10-CM R68.89 Other general symptoms and signs Active Diagnosis [facility] [place] [facility] Diagnosis: ICD-10-CM R20.2 Paresthesia of skin Active Diagnosis [place] Diagnosis: ICD-10-CM M54.50 Low back pain, unspecified Active Diagnosis [place] Medications Combined list of outpatient medications from [...] 6 HOURS NEEDED FOR PAIN ORAL 03/27/2024 [id number] Zoe MCLAIN 2023 100 [place] ASCORBIC ACID 500MG TAB TAKE TWO TABLETS BY MOUTH ONCE DAILY FOR VITAMIN/ NUTRITIO N SUPPLEME NT ORAL ACTIVE 09/09/2025 [id number] 4 MICHAEL IYER MD 2023 200 [facility] CAPSAICIN 0.025% CREAM,TOP APPLY A MODERATE AMOUNT TOPICALL Y FOUR TIMES A DAY FOR LOCALIZE D PAIN (USE FOR AT LEAST 4 WEEKS FOR EFFECT) TOPICA L ACTIVE 12/22/2024 [id number] 4 LUBAMANSOOR MARTINEZ O 2023 60 [place] CARBOXYMETH YLCELLULOSE NA 0.5% SOLN,OPH INSTILL 1 DROP INTO EACH EYE FOUR TIMES DAILY NEEDED FOR DRY EYE OPHTHA LMIC DISCONT INUED BY PROVIDE R 12/23/2023 [id number] 4 MERHAR,NO AH B 2022 45 [facility] [place] CARBOXYMETH YLCELLULOSE NA 1% GEL,OPH APPLY 1 DROP INTO EACH EYE FOUR TIMES DAILY NEEDED FOR DRY EYE OPHTHA LMIC ACTIVE 12/31/2024 [id number] 4 MERHAR,NO AH B 2023 15 [facility] CEFUROXIME AXETIL 500MG TAB TAKE ONE TABLET BY MOUTH TWICE DAILY ORAL 03/23/2024 [id number] 4 PINKY HERRERA 2023 14 [place] CEPHALEXIN 500MG CAP TAKE ONE CAPSULE BY MOUTH THREE TIMES A DAY FOR INFECTIO N ORAL ACTIVE 10/02/2024 [id number] 4 KENNETH BANUELOS 2023 21 [facility] CHOLECALCIF ELMA 10MCG (400UNIT) TAB TAKE ONE TABLET BY MOUTH ONCE DAILY FOR VITAMIN SUPPLEME NTATION ORAL ACTIVE 11/22/2024 [id number] 4 Mahnaz ROY 2023 90 [place] CIPROFLOXAC IN HCL 500MG TAB TAKE ONE TABLET BY MOUTH TWICE DAILY FOR 7 DAYS FOR INFECTIO N ORAL 09/24/2024 [id number] 4 TAWANA BRANDON SOOR 2023 14 [place] CYANOCOBALA MIN 250MCG TAB TAKE ONE TABLET BY MOUTH ONCE DAILY ORAL ACTIVE 08/25/2025 [id number] 4 Mahnaz ROY A 2023 100 [place] CYCLOSPORIN E 0.05% (PF) EMULSION,OP H,0.4ML INSTILL 1 DROP INTO EACH EYE TWICE DAILY FOR DRY EYE THIS REPLACES XIIDRA OPHTHA LMIC ACTIVE 03/22/2025 [id number] 4 MERHAR,NO AH B 2023 60 [place] FINASTERIDE 5MG TAB TAKE ONE TABLET BY MOUTH ONCE DAILY FOR ENLARGED PROSTATE ORAL ACTIVE 04/01/2025 [id number] 4 LUBA, APOLINARI O 2023 90 [place] FLUTICASONE PROPIONATE 50MCG/SPRAY SOLN,NASAL, 16GM INSTILL 1 SPRAY INTO EACH NOSTRIL TWICE DAILY NASAL ACTIVE BRIJESH SELF 2015 [place] KETOTIFEN 0.025% SOLN,OPH INSTILL 1 DROP INTO EACH EYE TWICE DAILY (IF YOU WEAR CONTACT LENSES, WAIT 10 MINUTES BEFORE INSERTIN G LENSES) OPHTHA LMIC ACTIVE 12/04/2024 [id number] 4 MERHAR,NO AH B 2023 15 [facility] [place] KETOTIFEN 0.025% SOLN,OPH INSTILL 1 DROP INTO EACH EYE TWICE DAILY (IF YOU WEAR CONTACT LENSES, WAIT 10 MINUTES BEFORE INSERTIN G LENSES) OPHTHA LMIC DISCONT INUED 11/01/2023 [id number] CHANTEL BRYANT 2022 15 [place] LIFITEGRAST 5% SOLN,OPH,0. 2ML INSTILL 1 DROP INTO EACH EYE TWICE DAILY OPHTHA LMIC DISCONT INUED BY MADELAINE R 12/31/2024 [id number] 4 MERHAR,NO AH B 2023 60 [facility] LIFITEGRAST 5% SOLN,OPH,0. 2ML INSTILL 1 DROP INTO EACH EYE TWICE DAILY OPHTHA LMIC DISCONT INUED 11/01/2023 [id number] 3 CHANTEL BRYANT UDAY 2022 60 [place] LISINOPRIL 20MG TAB TAKE ONE TABLET BY MOUTH ONCE DAILY TO CONTROL BLOOD PRESSURE ORAL ACTIVE 12/04/2024 [id number] 4 MANSOOR VERDUZCO O 2023 90 [place] METHENAMINE HIPPURATE 1GM TAB TAKE ONE TABLET BY MOUTH ONCE DAILY ORAL ACTIVE 09/09/2025 [id number] 4 MICHAEL IYER MD 2023 90 [facility] Allergies, Adverse Reactions, Alerts Combined list of allergies from Department of Defense and Veterans Affairs facilities. It does not include entries that were removed or entered in error. Substance Category Reaction Severity Reaction type Status Date Reported Comments Source HCTZ HYDROCHLOROT HIAZIDE Propensity to adverse reactions to drug (finding) Xerostomia active 8 [facility] Immunizations Combined list of available immunizations from the Department of Defense and Veterans Affairs facilities. Immunization Series Date Given Administered By Site Reaction Lot Number CVX Code Drug Bar Pilot Status Comments Source INFLUENZA, HIGH-DOSE, TRIVALENT, PF 2023 NIK BRANDON H LEFT DELTO ID [id number] 135 complet ed [place] HEP A, ADULT 2 2023 PAOLA FREDERICK LEFT DELTO ID [id number] 52 complet ed [place] COVID-19 (MODERNA), MRNA, LNP-S, PF, 50 MCG/0.5 ML (AGES 12+ YEARS) 2022 PAOLA FREDERICK LEFT DELTO ID [id number] 312 complet ed [place] HEP A, ADULT 1 2022 PAOLA FREDERICK RIGHT DELTO ID [id number] 52 complet ed [place] INFLUENZA, HIGH-DOSE, QUADRIVALENT 2022 PAOLA FREDERICK LEFT DELTO ID [id number] 197 complet ed [place] INFLUENZA, INJECTABLE, QUADRIVALENT, PRESERVATIVE FREE 2022 PAOLA FREDERICK LEFT DELTO ID [id number] 150 complet ed [place] COVID-19 (MODERNA), [...] DOSE 1 2020 207 complet ed [place]; [id number]; 1 [facility] [...] Aug 24, 2024 11:07 AM Reporting Lab: [facility] [address] [address] Performing Lab: [facility] [address] [address] [place] CBC AND DIFF (AUTO) ERYTHROCYT ES [#/VOLUME] IN BLOOD BY AUTOMATED COUNT 4.72 10*6/uL 4.23 - 5.66 08/24 Specimen Type: BLOOD No comment entered. Ordering Provider: DANISHA ROY A Report Released Date/Time: Aug 24, 2024 11:07 AM Reporting Lab: [facility] [address] [address] Performing Lab: [facility] [address] [place] CBC AND DIFF (AUTO) HEMOGLOBIN [MASS/VOLU ME] IN BLOOD 12.8 g/dL 12.8 - 17 08/24 Specimen Type: BLOOD No comment entered. Ordering Provider: DANISHA ROY A Report Released Date/Time: Aug 24, 2024 11:07 AM Reporting Lab: [facility] [address] [address] Performing Lab: [facility] [address] [place] CBC AND DIFF (AUTO) HEMATOCRIT [VOLUME FRACTION] OF BLOOD BY AUTOMATED COUNT 38.8 39.2 - 50.4 08/24 L Specimen Type: BLOOD No comment entered. Ordering Provider: DANISHA ROY A Report Released Date/Time: Aug 24, 2024 11:07 AM Reporting Lab: [place] [facility] [address] [facility] [address] Performing Lab: [facility] TRN [facility] [address] [address] [place] CBC AND DIFF (AUTO) MCV [ENTITIC VOLUME] BY AUTOMATED COUNT 82.2 fL 82 - 99 08/24 Specimen Type: BLOOD No comment entered. Ordering Provider: DANISHA ROY A Report Released Date/Time: Aug 24, 2024 11:07 AM Reporting Lab: [facility] [address] [address] Performing Lab: [facility] [address] [address] [place] CBC AND DIFF (AUTO) MCHC [MASS/VOLU ME] BY AUTOMATED COUNT 33.0 g/dL 30.8 - 35.1 08/24 Specimen Type: BLOOD No comment entered. Ordering Provider: DANISHA ROY A Report Released Date/Time: Aug 24, 2024 11:07 AM Reporting Lab: [facility] [address] [address] Performing Lab: [facility] [address] [place] CBC AND DIFF (AUTO) PLATELETS [#/VOLUME] IN BLOOD BY AUTOMATED COUNT 312 10*3/uL 140 - 360 08/24 Specimen Type: BLOOD No comment entered. Ordering Provider: DANISHA ROY A Report Released Date/Time: Aug 24, 2024 11:07 AM Reporting Lab: [facility] [address] [address] Performing Lab: [facility] [address] [address] [place] CBC AND DIFF (AUTO) ERYTHROCYT E DISTRIBUTI ON WIDTH [RATIO] BY AUTOMATED COUNT 12.3 12.0 - 16.0 08/24 Specimen Type: BLOOD No comment entered. Ordering Provider: DANISHA ROY A Report Released Date/Time: Aug 24, 2024 11:07 AM Reporting Lab: [facility] [place] [address] [address] Performing Lab: [facility] [place] [address] [address] [place] CBC AND DIFF (AUTO) MONOCYTES [#/VOLUME] IN BLOOD BY AUTOMATED COUNT 0.39 10*3/uL 0.30 - 1.10 08/24 Specimen Type: BLOOD No comment entered. Ordering Provider: DANISHA ROY A Report Released Date/Time: Aug 24, 2024 11:07 AM Reporting Lab: [facility] [place] [address] [address] Performing Lab: [facility] [address] [address] [place] CBC AND DIFF (AUTO) MCH [ENTITIC MASS] BY AUTOMATED COUNT 27.1 pg 26.2 - 32.6 08/24 Specimen Type: BLOOD No comment entered. Ordering Provider: DANISHA ROY A Report Released Date/Time: Aug 24, 2024 11:07 AM Reporting Lab: [facility] [place] [address] [address] Performing Lab: [facility] [place] [address] [address] [place] CBC AND DIFF (AUTO) NEUTROPHIL S/100 LEUKOCYTES IN BLOOD BY AUTOMATED COUNT 80.9 43.7 - 75.8 08/24 H Specimen Type: BLOOD No comment entered. Ordering Provider: DANISHA ROY A Report Released Date/Time: Aug 24, 2024 11:07 AM Reporting Lab: [facility] [place] [address] [address] Performing Lab: [facility] [address] [address] [place] CBC AND DIFF (AUTO) LYMPHOCYTE S/100 LEUKOCYTES IN BLOOD BY AUTOMATED COUNT 12.2 14.0 - 42.3 08/24 L Specimen Type: BLOOD No comment entered. Ordering Provider: DANISHA ROY A Report Released Date/Time: Aug 24, 2024 11:07 AM Reporting Lab: [facility] [place] [address] [address] Performing Lab: [facility] [address] [address] [place] CBC AND DIFF (AUTO) MONOCYTES/ 100 LEUKOCYTES IN BLOOD BY AUTOMATED COUNT 4.4 5.1 - 13.7 08/24 L Specimen Type: BLOOD No comment entered. Ordering Provider: DANISHA ROY A Report Released Date/Time: Aug 24, 2024 11:07 AM Reporting Lab: [facility] [address] [address] Performing Lab: [facility] [address] [address] [place] CBC AND DIFF (AUTO) EOSINOPHIL S/100 LEUKOCYTES IN BLOOD BY AUTOMATED COUNT 1.6 0.4 - 6.8 08/24 Specimen Type: BLOOD No comment entered. Ordering Provider: DANISHA ROY A Report Released Date/Time: Aug 24, 2024 11:07 AM Reporting Lab: [facility] [address] [address] Performing Lab: [facility] [address] [address] [place] CBC AND DIFF (AUTO) BASOPHILS/ 100 LEUKOCYTES IN BLOOD BY AUTOMATED COUNT 0.7 0.1 - 2.0 08/24 Specimen Type: BLOOD No comment entered. Ordering Provider: DANISHA ROY A Report Released Date/Time: Aug 24, 2024 11:07 AM Reporting Lab: [facility] [address] [address] Performing Lab: [facility] [address] [address] [place] CBC AND DIFF (AUTO) NEUTROPHIL S [#/VOLUME] IN BLOOD BY AUTOMATED COUNT 7.15 10*3/uL 2.20 - 7.60 08/24 Specimen Type: BLOOD No comment entered. Ordering Provider: DANISHA ROY A Report Released Date/Time: Aug 24, 2024 11:07 AM Reporting Lab: [facility] [address] [address] Performing Lab: [facility] [address] [address] [place] CBC AND DIFF (AUTO) LYMPHOCYTE S [#/VOLUME] IN BLOOD BY AUTOMATED COUNT 1.08 10*3/uL 1.00 - 3.20 08/24 Specimen Type: BLOOD No comment entered. Ordering Provider: DANISHA ROY A Report Released Date/Time: Aug 24, 2024 11:07 AM Reporting Lab: [facility] [address] [address] Performing Lab: [facility] [address] [address] [place] CBC AND DIFF (AUTO) EOSINOPHIL S [#/VOLUME] IN BLOOD BY AUTOMATED COUNT 0.14 10*3/uL 0.03 - 0.44 08/24 Specimen Type: BLOOD No comment entered. Ordering Provider: DANISHA ROY A Report Released Date/Time: Aug 24, 2024 11:07 AM Reporting Lab: [facility] [address] [address] Performing Lab: [facility] [address] [address] [place] CBC AND DIFF (AUTO) BASOPHILS [#/VOLUME] IN BLOOD BY AUTOMATED COUNT 0.06 10*3/uL 0.01 - 0.13 08/24 Specimen Type: BLOOD No comment entered. Ordering Provider: DANISHA ROY A Report Released Date/Time: Aug 24, 2024 11:07 AM Reporting Lab: [place] [facility] [address] [address] Performing Lab: [facility] [address] [address] [place] CBC AND DIFF (AUTO) IMMATURE GRANULOCYT ES/100 LEUKOCYTES IN BLOOD BY AUTOMATED COUNT 0.2 0.0 - 0.7 08/24 Specimen Type: BLOOD No comment entered. Ordering Provider: DANISHA ROY A Report Released Date/Time: Aug 24, 2024 11:07 AM Reporting Lab: [address] [address] Performing Lab: [address] [address] [place] CBC AND DIFF (AUTO) IMMATURE GRANULOCYT ES [#/VOLUME] IN BLOOD 0.02 10*3/uL 0.00 - 0.06 08/24 Specimen Type: BLOOD No comment entered. Ordering Provider: DANISHA ROY A Report Released Date/Time: Aug 24, 2024 11:07 AM Reporting Lab: [address] [address] Performing Lab: [address] [address] [place] CBC AND DIFF (AUTO) NRBC % 0.0 0.0 - 0.0 08/24 Specimen Type: BLOOD No comment entered. Ordering Provider: DANISHA ROY A Report Released Date/Time: Aug 24, 2024 11:07 AM Reporting Lab: [address] [address] Performing Lab: [address] [address] [place] CBC AND DIFF (AUTO) NRBC, ABS 0.00 10*3/uL 0.00 - 0.00 08/24 Specimen Type: BLOOD No comment entered. Ordering Provider: DANISHA ROY A Report Released Date/Time: Aug 24, 2024 11:07 AM Reporting Lab: [address] [address] Performing Lab: [address] [address] [place] MICROSCOP IC AUTOMATED , URINE LEUKOCYTES [#/AREA] IN URINE SEDIMENT BY MICROSCOPY HIGH POWER FIELD 0-5/[HP F] 0 - 5 08/24 Specimen Type: URINE Comment: If Glucose = >500 and Ketones are positive, please alert the Physician. Ordering Provider: ZAKI VERDUZCO Report Released Date/Time: Aug 09, 2024 09:43 AM Reporting Lab: [facility] [address] [facility] [address] Performing Lab: [facility]N [facility] [address] [facility] MICROSCOP IC AUTOMATED , URINE BACTERIA [#/AREA] IN URINE SEDIMENT BY MICROSCOPY HIGH POWER FIELD 1+/[HPF ] 08/24 Specimen Type: URINE Comment: If Glucose = >500 and Ketones are positive, please alert the Physician. Ordering Provider: ZAKI VERDUZCO Report Released Date/Time: Aug 09, 2024 09:43 AM Reporting Lab: [facility] [address] [address] Performing Lab: [facility]N [facility] [address] [facility] [address] [facility] MICROSCOP IC AUTOMATED , URINE TRIPLE PHOSPHATE CRYSTALS [PRESENCE] IN URINE SEDIMENT BY LIGHT MICROSCOPY MODERAT E/[HPF] 08/24 Specimen Type: URINE Comment: If Glucose = >500 and Ketones are positive, please alert the Physician. Ordering Provider: ZAKI VERDUZCO Report Released Date/Time: Aug 09, 2024 09:43 AM Reporting Lab: [facility] [address] Performing Lab: [facility] [address] [facility] MICROSCOP IC AUTOMATED , URINE ERYTHROCYT ES [#/AREA] IN URINE SEDIMENT BY MICROSCOPY HIGH POWER FIELD 6-10/[H PF] 0 - 3 08/24 H Specimen Type: URINE Comment: If Glucose = >500 and Ketones are positive, please alert the Physician. Ordering Provider: ZAKI VERDUZCO Report Released Date/Time: Aug 09, 2024 09:43 AM Reporting Lab: [facility] [place] [facility] [address] [facility] [address] Performing Lab: [facility] [place] [facility] [address] [facility] [address] [facility] [place] [facility] URINALYSI S COLOR OF URINE Light-B rown 08/24 Specimen Type: URINE Comment: If Glucose = >500 and Ketones are positive, please alert the Physician. Ordering Provider: ZAKI VERDUZCO Report Released Date/Time: Aug 09, 2024 09:43 AM Reporting Lab: [facility] [place] [facility] [address] [facility] [address] Performing Lab: [facility] [place] [address] [address] [facility] [place] [facility] URINALYSI S APPEARANCE OF URINE Turbid 08/24 Specimen Type: URINE Comment: If Glucose = >500 and Ketones are positive, please alert the Physician. Ordering Provider: ZAKI VERDUZCO Report Released Date/Time: Aug 09, 2024 09:43 AM Reporting Lab: [facility] [place] [address] [address] Performing Lab: [facility] [place] [facility] [address] [facility] [address] [facility] [place] [facility] URINALYSI S GLUCOSE [MASS/VOLU ME] IN URINE Normalm g/dL 08/24 Specimen Type: URINE Comment: If Glucose = >500 and Ketones are positive, please alert the Physician. Ordering Provider: ZAKI VERDUZCO Report Released Date/Time: Aug 09, 2024 09:43 AM Reporting Lab: [facility] [place] [facility] [address] [facility] [address] Performing Lab: [facility] [place] [facility] [address] [facility] [address] [facility] [place] [facility] URINALYSI S KETONES [MASS/VOLU ME] IN URINE BY TEST STRIP NEGATIV Emg/dL 08/24 Specimen Type: URINE Comment: If Glucose = >500 and Ketones are positive, please alert the Physician. Ordering Provider: ZAKI VERDUZCO Report Released Date/Time: Aug 09, 2024 09:43 AM Reporting Lab: [facility]ITAL[facility]TRN [place] [facility] [address] [facility] [address] Performing Lab: [facility]ITALR[facility]ENTERTRN [facility] [address] [address] [facility] TRN [facility]USE TS [facility] URINALYSI S ERYTHROCYT ES [PRESENCE] IN URINE SEDIMENT BY LIGHT MICROSCOPY LARGEmg /dL 08/24 Specimen Type: URINE Comment: If Glucose = >500 and Ketones are positive, please alert the Physician. Ordering Provider: ZAKI VERDUZCO Report Released Date/Time: Aug 09, 2024 09:43 AM Reporting Lab: [facility] [address] Performing Lab: [facility]ITALRTR[facility]ENTERTRN [facility]AREUSETS [address] [address] [facility]ITALRATH[facility]ITALN [facility]CHUSE [facility] URINALYSI S PROTEIN [MASS/VOLU ME] IN URINE BY TEST STRIP 100 mg/dL 08/24 Specimen Type: URINE Comment: If Glucose = >500 and Ketones are positive, please alert the Physician. Ordering Provider: ZAKI VERDUZCO Report Released Date/Time: Aug 09, 2024 09:43 AM Reporting Lab: [facility]ITALRTR[facility]ENTERTRN [facility]AREUSETS [address] [address] Performing Lab: [facility]OSPITALRL TRN [facility]ENTERCHUSETS [facility] [address] [facility] [address] [facility]ITALRTR[facility]ENTERTRN MASSCHUSE TS [facility] URINALYSI S NITRITE [PRESENCE] IN URINE NEGATIV Emg/dL 08/24 Specimen Type: URINE Comment: If Glucose = >500 and Ketones are positive, please alert the Physician. Ordering Provider: ZAKI VERDUZCO Report Released Date/Time: Aug 09, 2024 09:43 AM Reporting Lab: [facility]ITALRTR[facility] CENTERTRN MASSUSETS [address] [address] Performing Lab: [facility] [address] [facility] [address] [facility]AREUSE [facility] URINALYSI S BILIRUBIN. TOTAL [PRESENCE] IN URINE NEGATIV Emg/dL 08/24 Specimen Type: URINE Comment: If Glucose = >500 and Ketones are positive, please alert the Physician. Ordering Provider: ZAKI VERDUZCO Report Released Date/Time: Aug 09, 2024 09:43 AM Reporting Lab: [facility] [address] Performing Lab: [address] [address] [facility] URINALYSI S SPECIFIC GRAVITY OF URINE BY REFRACTOME TRY 1.007 1.016 - 1.022 08/24 L Specimen Type: URINE Comment: If Glucose = >500 and Ketones are positive, please alert the Physician. Ordering Provider: ZAKI VERDUZCO Report Released Date/Time: Aug 09, 2024 09:43 AM Reporting Lab: [address] [address] Performing Lab: [address] [address] [facility] URINALYSI S PH OF URINE BY TEST STRIP 8.5 5.0 - 9.0 08/24 Specimen Type: URINE Comment: If Glucose = >500 and Ketones are positive, please alert the Physician. Ordering Provider: ZAKI VERDUZCO Report Released Date/Time: Aug 09, 2024 09:43 AM Reporting Lab: [facility] [address] Performing Lab: [address] [address] [facility] URINALYSI S UROBILINOG EN [MASS/VOLU ME] IN URINE BY TEST STRIP Normalm g/dL <2.0 - 2.0 08/24 Specimen Type: URINE Comment: If Glucose = >500 and Ketones are positive, please alert the Physician. Ordering Provider: ZAKI VERDUZCO Report Released Date/Time: Aug 09, 2024 09:43 AM Reporting Lab: [facility] [place] [facility] [address] [facility] [address] Performing Lab: [place] [facility] [place] [facility] [address] [facility] [address] [facility] [place] [facility] URINALYSI S LEUKOCYTE ESTERASE [PRESENCE] IN URINE BY TEST STRIP LARGE 08/24 Specimen Type: URINE Comment: If Glucose = >500 and Ketones are positive, please alert the Physician. Ordering Provider: ZAKI VERDUZCO Report Released Date/Time: Aug 09, 2024 09:43 AM Reporting Lab: [facility] [address] [facility] [address] Performing Lab: [place] [facility] [facility] [address] [facility] [address] [facility] TRN [facility] BASIC METABOLIC PANEL (fasting) UREA NITROGEN [MASS/VOLU ME] IN SERUM OR PLASMA 22 mg/dL 7 - 25 08/08 Specimen Type: SERUM No comment entered. Ordering Provider: ZAKI VERDUZCO Report Released Date/Time: Aug 08, 2024 10:54 AM Reporting Lab: [facility] [place] [address] [address] Performing Lab: [place] [facility] [facility] [address] [facility] [address] [facility] TRN [facility] BASIC METABOLIC PANEL (fasting) GLUCOSE [MASS/VOLU ME] IN SERUM OR PLASMA 91 mg/dL 65 - 100 08/08 Specimen Type: SERUM No comment entered. Ordering Provider: ZAKI VERDUZCO Report Released Date/Time: Aug 08, 2024 10:54 AM Reporting Lab: [facility] [place] [facility] [address] [facility] [address] Performing Lab: [place] [facility] [address] [facility] [address] [facility] [place] [facility] BASIC METABOLIC PANEL (fasting) SODIUM [MOLES/VOL UME] IN SERUM OR PLASMA 138 mmol/L 135 - 145 08/08 Specimen Type: SERUM No comment entered. Ordering Provider: ZAKI VERDUZCO Report Released Date/Time: Aug 08, 2024 10:54 AM Reporting Lab: [facility] [place] [place] [address] [address] Performing Lab: [facility] [place] [place] [facility] [address] [facility] [address] [place] [facility] [place] [facility] BASIC METABOLIC PANEL (fasting) POTASSIUM [MOLES/VOL UME] IN SERUM OR PLASMA 4.8 mmol/L 3.5 - 5.0 08/08 Specimen Type: SERUM No comment entered. Ordering Provider: ZAKI VERDUZCO Report Released Date/Time: Aug 08, 2024 10:54 AM Reporting Lab: [facility] [place] [address] [address] Performing Lab: [place] [facility] [place] [address] [address] [facility] [place] [facility] BASIC METABOLIC PANEL (fasting) CHLORIDE [MOLES/VOL UME] IN SERUM OR PLASMA 105 mmol/L 100 - 110 08/08 Specimen Type: SERUM No comment entered. Ordering Provider: ZAKI VERDUZCO Report Released Date/Time: Aug 08, 2024 10:54 AM Reporting Lab: [facility] [place] [address] [address] Performing Lab: [facility] [place] [address] [address] [facility] [place] [facility] BASIC METABOLIC PANEL (fasting) CARBON DIOXIDE, TOTAL [MOLES/VOL UME] IN SERUM OR PLASMA 25 meq/L 20 - 30 08/08 Specimen Type: SERUM No comment entered. Ordering Provider: ZAKI VERDUZCO Report Released Date/Time: Aug 08, 2024 10:54 AM Reporting Lab: [facility] [place] [address] [place] [address] Performing Lab: [facility]N [facility] [address] [facility] [address] [facility] TRN [facility] BASIC METABOLIC PANEL (fasting) CREATININE [MASS/VOLU ME] IN SERUM OR PLASMA 0.99 mg/dL 0.50 - 1.40 08/08 Specimen Type: SERUM No comment entered. Ordering Provider: ZAKI VERDUZCO Report Released Date/Time: Aug 08, 2024 10:54 AM Reporting Lab: [place] [facility] [facility] [address] [facility] [address] Performing Lab: [facility] TRN [facility] [address] [facility] [address] [facility]ITALRATHENS[facility]ITALN [facility] BASIC METABOLIC PANEL (fasting) GLOMERULAR FILTRATION RATE/1.73 SQ M.PREDICTE D [VOLUME RATE/AREA] IN SERUM, PLASMA OR BLOOD BY CREATININE -BASED FORMULA (CKD-EPI 2020) 77 mL/min 60 08/08 Specimen Type: SERUM No comment entered. Ordering Provider: ZAKI VERDUZCO Report Released Date/Time: Aug 08, 2024 10:54 AM Reporting Lab: [facility] [address] [facility] [address] Performing Lab: [facility] TRN [facility] [address] [facility] [address] [facility] FOLATE (WROX) FOLATE [MASS/VOLU ME] IN SERUM OR PLASMA 4.07 ng/mL 5.2 08/08 L Specimen Type: SERUM No comment entered. Ordering Provider: ZAKI VERDUZCO Report Released Date/Time: Aug 08, 2024 10:54 AM Reporting Lab: [facility]N [facility] [address] [facility] [address] Performing Lab: [place] [facility] [facility] [address] [facility] [address] [facility]ITALRL [facility] HEMOGLOBI N A1C PANEL HEMOGLOBIN A1C/HEMOGL [...] Aug 08, 2024 10:54 AM Reporting Lab: [facility] [address] [facility] [address] Performing Lab: [facility]PITALRTROY [facility] CENTERTRN [facility] [address] [facility] [address] [facility] LIPID PANEL FASTING CHOLESTERO L [MASS/VOLU ME] IN SERUM OR PLASMA 178 mg/dL 08/08 Specimen Type: SERUM No comment entered. Ordering Provider: ZAKI VERDUZCO Report Released Date/Time: Aug 08, 2024 10:54 AM Reporting Lab: [facility]PITALRTROY [facility] CENTERTRN [facility] [address] [facility] [address] Performing Lab: [facility]ITALRL TRN [facility] [address] [facility] [address] [facility] LIPID PANEL FASTING TRIGLYCERI DE [MASS/VOLU ME] IN SERUM OR PLASMA 97 mg/dL 0 - 150 08/08 Specimen Type: SERUM No comment entered. Ordering Provider: ZAKI VERDUZCO Report Released Date/Time: Aug 08, 2024 10:54 AM Reporting Lab: [facility] [place] [facility] [address] [facility] [address] Performing Lab: [facility]ITALRTROY [facility] CENTERTRN [facility] [address] [facility] [address] [facility] LIPID PANEL FASTING CHOLESTERO L IN LDL [MASS/VOLU ME] IN SERUM OR PLASMA BY CALCULATIO N 97 mg/dL 0 - 129 08/08 Specimen Type: SERUM No comment entered. Ordering Provider: ZAKI VERDUZCO Report Released Date/Time: Aug 08, 2024 10:54 AM Reporting Lab: [facility] [place] [facility] [address] [facility] [address] Performing Lab: [facility] [place] [facility] [address] [facility] [address] [facility] [place] [facility] LIPID PANEL FASTING CHOLESTERO L.TOTAL/CH OLESTEROL IN HDL [MASS RATIO] IN SERUM OR PLASMA 2.9 08/08 Specimen Type: SERUM No comment entered. Ordering Provider: ZAKI VERDUZCO Report Released Date/Time: Aug 08, 2024 10:54 AM Reporting Lab: [facility] [place] [facility] [address] [facility] [address] Performing Lab: [facility] [place] [facility] [address] [facility] [address] [facility] [place] [facility] LIPID PANEL FASTING CHOLESTERO L IN HDL [MASS/VOLU ME] IN SERUM OR PLASMA 62 mg/dL 40 - 60 08/08 H Specimen Type: SERUM No comment entered. Ordering Provider: ZAKI VERDUZCO Report Released Date/Time: Aug 08, 2024 10:54 AM Reporting Lab: [facility] [place] [place] [facility] [address] [facility] [address] Performing Lab: [facility] [place] [facility] [address] [facility] [address] [facility] [place] [facility] MICROALBU MIN CREATININ E RATIO PANEL MICROALBUM IN/CREATIN INE [MASS RATIO] IN URINE 354.2 mg/g 0 - 29.9 08/08 H Specimen Type: URINE No comment entered. Ordering Provider: ZAKI VERDUZCO Report Released Date/Time: Aug 08, 2024 10:54 AM Reporting Lab: [facility] [place] [facility] [address] [facility] [address] Performing Lab: [facility] [place] [facility] [address] [facility] [address] [facility] [place] [facility] MICROALBU MIN CREATININ E RATIO PANEL MICROALBUM IN [MASS/VOLU ME] IN URINE 103.3 mg/dL 08/08 Specimen Type: URINE No comment entered. Ordering Provider: ZAKI VERDUZCO Report Released Date/Time: Aug 08, 2024 10:54 AM Reporting Lab: [facility] [address] [facility] [address] Performing Lab: [address] [address] [facility] MICROALBU MIN CREATININ E RATIO PANEL CREATININE [MASS/VOLU ME] IN URINE 291.68 mg/dL 08/08 Specimen Type: URINE No comment entered. Ordering Provider: ZAKI VERDUZCO Report Released Date/Time: Aug 08, 2024 10:54 AM Reporting Lab: [address] [address] Performing Lab: [address] [address] [facility] VITAMIN B12 COBALAMIN (VITAMIN B12) [MASS/VOLU ME] IN SERUM OR PLASMA 1849 pg/mL 200 - 900 08/08 H Specimen Type: SERUM No comment entered. Ordering Provider: ZAKI VERDUZCO Report Released Date/Time: Aug 08, 2024 10:54 AM Reporting Lab: [address] [address] Performing Lab: [address] [address] [facility] VITAMIN D 25-OH (Therapy monitor) [...] additional information , please refer to [email or web address] [email or web address] (This link is being provided for information al/ educational purposes only.) This test was developed and its analytical performance characteris tics have been determined by [facility] [place]. It has not been cleared or approved by the U.S. Food and Drug Administrat ion. This assay has been validated pursuant to the CLIA regulations and is used for clinical purposes. This test was developed and its analytical performance characteris tics have been determined by [employer] [place] [place] It has not been cleared or approved by the U.S. Food and Drug Administrat ion. This assay has been validated pursuant to the CLIA regulations and is used for clinical purposes. Test Performed by [facility], [facility], [address] [place] [address] Dov Bahena M.D., Ph.D., Director of Laboratorie s , CLIA [id number] TEST PERFORMED AT: , Ordering Provider: ZAKI VERDUZCO Report Released Date/Time: Aug 08, 2024 10:54 AM Reporting Lab: [facility] [address] [facility] [address] Performing Lab: [facility] [address] [address] [facility] VITAMIN D 25-OH (Therapy monitor) [...] additional information , please refer to [email or web address] Q199 (This link is being provided for information al/ educational purposes only.) This test was developed and its analytical performance characteris tics have been determined by [facility] [place] [place]. It has not been cleared or approved by the U.S. Food and Drug Administrat ion. This assay has been validated pursuant to the CLIA regulations and is used for clinical purposes. This test was developed and its analytical performance characteris tics have been determined by [facility] [place] [place]. It has not been cleared or approved by the U.S. Food and Drug Administrat ion. This assay has been validated pursuant to the CLIA regulations and is used for clinical purposes. Test Performed by [facility], [facility], [address] [place] [address] Dov Bahena M.D., Ph.D., Director of Laboratorie s , CLIA [id number] TEST PERFORMED AT: , Ordering Provider: ZAKI VERDUZCO Report Released Date/Time: Aug 08, 2024 10:54 AM Reporting Lab: [facility] [address] [facility] [address] Performing Lab: [place] [id number] [address] [facility] VITAMIN D 25-OH (Therapy monitor) CALCIFEROL [...] additional information , please refer to [email or web address] Q199 (This link is being provided for information al/ educational purposes only.) This test was developed and its analytical performance characteris tics have been determined by [facility] [place] [place]. It has not been cleared or approved by the U.S. Food and Drug Administrat ion. This assay has been validated pursuant to the CLIA regulations and is used for clinical purposes. This test was developed and its analytical performance characteris tics have been determined by [facility] [place] [place]. It has not been cleared or approved by the U.S. Food and Drug Administrat ion. This assay has been validated pursuant to the CLIA regulations and is used for clinical purposes. Test Performed by [facility], [facility], [address] [place] [address] Dov Bahnea M.D., Ph.D., Director of Laboratorie s , CLIA [id number] TEST PERFORMED AT: , Ordering Provider: ZAKI VERDUZCO Report Released Date/Time: Aug 08, 2024 10:54 AM Reporting Lab: [facility] [address] [facility] [address] Performing Lab: [facility] [address] [address] [facility] Vital Signs Combined list of inpatient and outpatient Vital Signs from Department of Defense and Veterans Affairs, ranging from 12 months to all on record, depending upon the facility. Vital Sign Value Date Comments Source SYSTOLIC BLOOD PRESSURE 154 08/24/20 24 12:28:43 [place] DIASTOLIC BLOOD PRESSURE 78 024 12:28:43 [place] PULSE OXIMETRY 97 08/24/2024 12:28:43 [place] PAIN 0 08/24/2024 12:28:43 [place] HEIGHT 70 08/24/2024 12:28:43 [place] PULSE 68 08/24/2024 12:28:43 [place] RESPIRATION 20 08/24/2024 12:28:43 [place] SYSTOLIC BLOOD PRESSURE 155 08/09/20 24 09:58:25 [facility] [place] [facility] DIASTOLIC BLOOD PRESSURE 78 09:58:25 [facility] [place] [facility] PULSE OXIMETRY 97 08/09/2024 09:58:25 VA [...] LD OFF/OP EST JANUARY X REQ PHY/QHP [id number] Diagnos is: ICD-10- CM M54.50 Low back pain, unspeci fied
JOSE REDDY 04/20 [facility] [place] [facility] [id number] 04/20 [facility] [place] [facility] En[facility] [id number] 04/20 [facility] [place] En[facility] [id number] 04/21 [facility] [place] En[facility] [id number] 04/22 [facility] [place] En[facility] [id number] 05/08 [facility] [place] En[facility] [id number] 05/20 [facility] [place] Encounter [id number] ARSH CORBETT ON 05/20 [facility] [place] En[facility] [id number] 05/22 [facility] [place] Encounter [id number] 05/28 [facility] [place] [facility] OFF/OP EST MAY X REQ PHY/QHP [id number] Diagnos is: ICD-10- CM R20.2 Paresth esia of skin
LUBA,A POLINARIO 06/02 [place] [facility] En[facility] [id number] 06/03 [facility] [place] [facility] En[facility] [id number] 06/04 [facility] [place] En[facility] [id number] 06/04 [facility] [place] [facility] OFF/OP EST MAY X REQ PHY/QHP [id number] Diagnos is: ICD-10- CM R68.89 Other general symptom s and signs<b r/> BARRY,ER IC K 06/05 [facility] [place] [facility] En[facility] [id number] 06/05 [facility] [place] En[facility] [id number] 06/08 [place] [facility] [place] [facility] Outpatient Encounter [id number] 06/10 [facility] [place] [facility] OFFICE O/P EST MOD 30-39 MIN [id number] Diagnos is: ICD-10- CM Z00.01 Encount er for general adult medical exam w abnorma l finding s
LUBA,A POLINARIO 06/23 [place] [facility] Outpatient Encounter [id number] 06/23 [facility] [place] [facility] SELF-HELP/ PEER SVC PER 15MIN [id number] Diagnos is: ICD-10- CM Z59.00 Homeles sness unspeci fied
CAPEELISEO RAGLAND NTHIA 06/25 [facility] OFFICE O/P EST LOW 20-29 MIN [id number] Diagnos is: ICD-10- CM D52.8 Other folate deficie ncy anemias
LUBA,A POLINARIO 06/30 [facility] OFFICE O/P NEW MOD 45-59 MIN [id number] Diagnos is: ICD-10- CM C61 Maligna nt neoplas m of prostat e
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
LUBA,A POLINARIO 07/06 [facility] [place] [facility] [place] Outpatient Encounter [id number] 07/14 [facility] [place] [facility] [place] [facility] Outpatient Encounter [id number] 07/16 [facility] [place] [facility] [place] OFFICE O/P NEW MOD 45-59 MIN [id number] Diagnos is: ICD-10- CM M54.59 Other low back pain
NICANOR MARIA RA 07/16 [facility] En[facility] [id number] 07/17 [facility] En[facility] [id number] 07/20 [facility] En[facility] [id number] 07/21 [facility] Encounter [id number] 08/10 [facility] En[facility] [id number] 08/14 [facility] En[facility] [id number] 08/24 [facility] En[facility] [id number] 09/16 [facility] [place] OFF[place] O/P EST LOW 20-29 MIN [id number] Diagnos is: ICD-10- CM I10 Essenti al (primar y) hyperte nsion<b r/> LUBALou MARTINEZ 09/18 [place] [facility] En[facility] [id number] 10/06 [facility] En[facility] [id number] 10/06 [facility] Encounter [id number] 10/06 [facility] En[facility] [id number] 10/06 [facility] [place] Outpatient Encounter [id number] LUBAA POLINARIO 10/06 [place] [facility] Encounter [id number] 10/08 [facility] En[facility] [id number] 10/14 [facility] [id number] 10/26 [facility] [id number] 12/03 [facility] Encounter [id number] 12/03 [facility] [place] OFF[facility] O/P EST MOD 30 MIN [id number] Diagnos is: ICD-10- CM R97.20 Elevate d prostat e specifi c antigen [PSA]<b r/> LUBA,Lou POLINARIO 12/21 [facility] COMPRE OPH EXAM EST PT 1/> [id number] Diagnos is: ICD-10- CM H40.013 Open angle with borderl ine finding s, low risk, bilater al
MERHAR,ALANA H B 12/30 [facility] CMP[facility] OPHTH IMG OPTIC NERVE [id number] Diagnos is: ICD-10- CM H40.013 Open angle with borderl ine finding s, low risk, bilater al
ALANA HOLLOWAY H B 12/30 [facility] [place] OFF[facility] O/P EST MOD 30 MIN [id number] Diagnos is: ICD-10- CM W06.XXX A Fall from bed, initial encount er
LUBA,A POLINARIO 01/21 [facility] [facility] Encounter [id number] 01/24 [facility] [id number] 01/27 [facility] En[facility] [id number] 02/21 [facility] Encounter [id number] 02/25 [facility] [place] OFF/OP EST JANUARY X REQ PHY/QHP [id number] Diagnos is: ICD-10- CM L02.212 [place] us abscess of back [any part, except buttock ]
PAULINE-LATISHA NEGRO 02/25 [place] Encounter [id number] 02/25 [facility] [place] OFF[place] O/P EST MOD 30 MIN [id number] Diagnos is: ICD-10- CM L02.818 Cutaneo us abscess of other sites<b r/> RAYNEROWDY VAZQUEZA C 02/25 [facility] [place] [facility] Outpatient Encounter [id number] 03/02 [facility] [place] [place] UNLISTED SPEC DERM SVC/PX [id number] Diagnos is: ICD-10- CM Z13.89 Encount er for screeni ng for other disorde r
Sree POSADAOWACAMDEN 03/10 [facility] Outpatient Encounter [id number] Diagnos is: ICD-10- CM L82.1 Other seborrh eic keratos is
ADRIANNE MELISSA 03/14 [facility] [place] [facility] Outpatient Encounter [id number] 03/14 [facility] [place] [place] [facility] Outpatient Encounter [id number] 1.03/14 [facility] [place] [place] [facility] Outpatient Encounter [id number] 1.03/18 [facility] [place] [place] OFF[place] O/P EST MOD 30 MIN [id number] Diagnos is: ICD-10- CM N13.9 Obstruc tive and reflux uropath y, unspeci fied
LUBA,A POLIYASMINIO 03/21 [facility] [place] [facility] [facility] Outpatient Encounter [id number] 03/21 [facility] [place] [place] QNHP OL DIG ASSMT&MGMT 5-10 [id number] Diagnos is: ICD-10- CM Z51.81 Encount er for therape utic drug level monitor ing<br/ > CHAY DAVIS A [place] [facility] [place] [facility] Outpatient Encounter [id number] 04/04 [facility] Encounter [id number] 04/07 [facility] [place] [place] [facility] Outpatient Encounter [id number] 04/19 [facility] [place] [facility] O[facility]P EST MOD 30 MIN [id number] Diagnos is: ICD-10- CM 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
LUBA,A TOYINIO [place] [facility] [place] [facility] Outpatient Encounter [id number] 1.05/20 [facility] [place] OFF/OP EST JANUARY X REQ PHY/QHP [id number] Diagnos is: ICD-10- CM Z23 Encount er for immuniz ation<b r/> ROMA,L BERTIN H [place] [facility] [place] [facility] Outpatient Encounter [id number] 06/01 [facility] Encounter [id number] 06/01 [facility] Encounter [id number] 06/03 [facility] Encounter [id number] 06/07 [facility] Encounter [id number] 06/07 [facility] Encounter [id number] 06/13 [facility] Encounter [id number] 06/16 [facility] [place] [facility] OFFICE O/P EST MOD 30 MIN [id number] Diagnos is: ICD-10- CM Z01.810 Encount er for preproc edural cardiov ascular examina tion
Lou VERDUZCO 06/21 [facility] [place] [facility] Out[facility] Encounter [id number] 06/23 [facility] Encounter [id number] 06/24 [facility] Encounter [id number] 06/29 [facility] Encounter [id number] 06/30 [facility] Encounter [id number] 1.07/06 [facility] Encounter [id number] 07/07 [facility] Encounter [id number]/07 [facility] Encounter [id number] 07/18 [facility] Encounter [id number] 07/19 [facility] Encounter [id number] 07/20 [facility] Out[facility] Encounter [id number] 07/26 [facility] Encounter [id number] 07/29 [facility] Encounter [id number] 08/04 [facility] [place] O/P EST MOD 30 MIN [id number] 1BY. 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
LUBA,A POLINARIO 08/17 [place] [facility] [place] [facility] FIT SPECTACLES BIFOCAL [id number] Diagnos is: ICD-10- CM Z46.0 Encount er for fit/adj st of spectac les and contact lenses< br/> JEEVAN UMANA 08/22 [facility] Encounter [id number] 1.08/22 [facility] [place] [place] [facility] Outpatient Encounter [id number] 1.08/24 [facility] [place] [place] OFFICE O/P EST HI 40 MIN [id number] Diagnos is: ICD-10- CM 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
ROY,DA VID A 08/24 [place] [facility] [place] Outpatient Encounter [id number] 08/25 [facility] [place] [facility] Outpatient Encounter [id number] 08/29 [facility] [place] [place] OFFICE O/P EST LOW 20 MIN [id number] Diagnos is: ICD-10- CM C61 Maligna nt neoplas m of prostat e
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
LUBA,Lou POLINARIO 09/06 [facility] [place] [facility] [place] [facility] Outpatient Encounter [id number] 09/09 [facility] [place] [place] [facility] Outpatient Encounter [id number] 09/15 [facility] [place] [place] [facility] Outpatient Encounter [id number] 09/15 [facility] [place] [place] [facility] Outpatient Encounter [id number] 09/15 [facility] [place] [facility] Outpatient Encounter [id number] 09/15 [facility] [place] [facility] Social History Combined list of available smoking, tobacco, and other social history from Department of Defense and Veterans Affairs facilities. 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 Additional future care activities may be listed in the Assessment and Plan section. Date/Time Care Activity [facility] AM[facility]UL[facility] - MEDICINE AM[facility]ULATORY - MEDICI [facility] 01/02/2025 AMBULATORY - MEDICINE AMBULATORY - MEDICI [facility] Advance Directives List of completed, amended, or rescinded Advance Directives on record at Department of Veterans Affairs facilities. An actual copy of the Directive is not included. Date Advance Directive Provider Source 04/04/2024 ADVANCE DIRECTIVE CHAPINCITO DEE [facility]
[2024-09-29 14:24] LABS: PSA,Total (Free>4and<10) 39.95 ng/mL (0.00-4.00)
[2024-10-03 14:23] LABS: Testosterone, Total 297 ng/dL (250-1100)
== END 2024-09-29 11:23 | disposition home or self-care (01) ==
LOC: HO.LAB 11:22
PROVIDERS: PCP Internal Medicine; Visit Provider Urology
DX: C61 Malignant neoplasm of prostate (principal); C77.5 Secondary and unspecified malignant neoplasm of intrapelvic lymph nodes; T83.511A Infection and inflammatory reaction due to indwelling urethral catheter, initial encounter; N39.0 Urinary tract infection, site not specified; Z12.5 Encounter for screening for malignant neoplasm of prostate
CPT/HCPCS: 36415; 84153; 84403; 99212

== ENCOUNTER 2024-10-05 12:04 | Outpatient (AMB) | payer OTHER, SELFPAY ==
--- NOTE | 2024-10-05 13:06 | AM.OFFVISNUR ---
Intake Visit Reasons: Blood in Urine Allergies aspirin [ASPIRIN] Allergy (Unknown, Verified 09/29/24 11:51) UNKNOWN No Known Drug Allergies Allergy (Unknown, Verified 09/29/24 11:51) U Nursing Note Patient presents to office for evaluation after oncology called in to report patient was in their office reporting blood in urine. Patient reported that his overnight urine bag was full of blood this morning, and when he switched to his flip valve there was still blood when urinating in oncology office. Irrigated wright catheter with 120mls normal saline, able to irrigate wright catheter without issue, got returned pink tinged fluids. Patient also reporting that he has burning with urination. Sample taken from catheter prior to irrigation being done in office. Patient UA indicating infection- reviewed with Dr. Robertson send 250mg levofloxacin for 7 days. Script written and printed for patient to bring to [facility] pharmacy. Urine sent for culture, name in culture book to ensure abx sent susceptible. 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 250 mg PO DAILY 7 tabs 0RF 7 days
== END 2024-10-05 13:23 | disposition home or self-care (01) ==
LOC: HO.HUSH 12:04
PROVIDERS: PCP Internal Medicine; Visit Provider Urology
DX: R33.9 Retention of urine, unspecified (principal); C61 Malignant neoplasm of prostate; C77.5 Secondary and unspecified malignant neoplasm of intrapelvic lymph nodes; T83.511A Infection and inflammatory reaction due to indwelling urethral catheter, initial encounter; N39.0 Urinary tract infection, site not specified

== ENCOUNTER 2024-10-05 12:04 | Outpatient (REF) | payer OTHER, SELFPAY | END 2024-10-05 12:05 | disposition home or self-care (01) | LOC: HO.LNP 12:04 | PROVIDERS: PCP Internal Medicine; Visit Provider Urology | DX: T83.511A Infection and inflammatory reaction due to indwelling urethral catheter, initial encounter (principal); N39.0 Urinary tract infection, site not specified; C61 Malignant neoplasm of prostate; C77.5 Secondary and unspecified malignant neoplasm of intrapelvic lymph nodes; R33.9 Retention of urine, unspecified; R39.9 Unspecified symptoms and signs involving the genitourinary system; B96.89 Other specified bacterial agents as the cause of diseases classified elsewhere | CPT/HCPCS: 81003; 87086 ==

== ENCOUNTER 2024-10-13 13:51 | Outpatient (AMB) | payer OTHER, SELFPAY ==
--- NOTE | 2024-10-13 13:53 | A.OFFVIS_ITS ---
Intake Visit Reasons: Cath change/[facility] Intake Note: Patient is present for CATH CHANGE/[facility] Urology Medication:VITAMIN C, TAMSULOSIN,FINASTERIDE,METHENAMINE HIPPURATE Antibiotic Allergy:NONE Blood Thinner:NONE Air Deodorizer Servicer Required: No Allergies aspirin [ASPIRIN] Allergy (Unknown, Verified 10/13/24 13:54) UNKNOWN No Known Drug Allergies Allergy (Unknown, Verified 10/13/24 13:54) U HPI Comments Details: Leo is a pleasant Eritrean-speaking male. He is a patient of Dr. Ramachandran. 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 Eritrean translation provided in office Here for [facility] administration PET-CT has not been completed Lab work shows 10/15 PSA 40, T 297 Catheter change today At that point will have discussion regarding channel laser TURP with suprapubic tube Has locally extensive prostate cancer Multiple urologic conditions Primary issue is urinary retention Failed multiple voiding trials through [facility] Urology No documentation of medications to help with bladder emptying Multiple prior urinary tract infections Bladder retention with recurrent UTI Multiple prior episodes of urinary retention. One sufficiently serious 2 to cause bilateral hydronephrosis Re-initiate finasteride Initiate alpha-joslyn Start methenamine vitamin-C for suppression Discussed GreenLight laser prostate Prostate cancer grade group 3, high volume disease initial PSA 84 Initial diagnosis 04/2022 - Per PVU note 09/01 cores Lisa 4 + 3, [address] scan negative for adenopathy - follow-up subsequent question of pelvic lymph node No bone scan performed - incomplete staging Underwent [facility] until end 2022 [facility] Medical History (Updated 09/12/24 @ 09:31 by BRI Oleary) Chronic retention of urine Abnormal prostate specific antigen Dysuria Nodular prostate Gross hematuria Hypertension Surgical History (Updated 09/12/24 @ 09:31 by BRI Oleary) History of bladder surgery History of prostate biopsy Social History Alcohol intake: never Patient Tobacco Use Status: Former Tobacco user Current occupational status: unemployed Current occupation: right handed Review of Systems Const Denies chills and Denies fever(s) Card Reports no additional complaints and Denies syncope Resp Denies cough GI Denies abdominal pain and Denies heartburn Reports as per HPI and Denies change in libido Neuro Denies syncope Psych Denies change in libido Endo Denies change in libido Physical Exam Const General: cooperative, healthy appearing, comfortable and no acute distress Orientation/consciousness: patient oriented x3 HEENT Face and sinus: Yes normal facial exam Mouth: moist mucous membranes Neck Neck: Yes normal visual inspection, Yes full ROM and Yes trachea midline Chest Chest palpation & inspection: normal inspection of the chest Resp Effort & Inspection: normal respiratory effort, able to speak in complete sentences and no respiratory distress GI Inspection: Yes normal to inspection Back/Spine/Pelvis Cervical Spine: normal cervical lordosis Thoracic/Lumbar Spine: thoracic and lumbar spine normal to inspection Skin General skin exam: no rashes or lesions noted Neuro General: patient oriented x3, gait normal, tone normal and moves all extremities Extrem General: Yes normal to inspection and Yes capillary refill normal Assessment & Plan Assessment & Plan (1) Prostate cancer metastatic to intrapelvic lymph node: Code(s): C61 - Malignant neoplasm of prostate; C77.5 - Secondary and unspecified malignant neoplasm of intrapelvic lymph nodes Category: Medical (2) UTI (urinary tract infection) due to urinary indwelling catheter: Code(s): T83.511A - Infection and inflammatory reaction due to indwelling urethral catheter, initial encounter; N39.0 - Urinary tract infection, site not specified Category: Medical (3) Urinary retention with incomplete bladder emptying: Code(s): R33.9 - Retention of urine, unspecified Category: Medical Plan Risks, benefits and alternatives to therapy were discussed. These include but are not limited to infection, bleeding, damage to local organs and tissues, need for further interventions. Anesthetic risks regarding cardiac arrhythmia, blood clots, and potential mortality were discussed. The patient understands the typical recovery time and the outpatient nature of the procedure. After consideration of these risks the patient gives full informed consent and they wish to move ahead with the procedure. GreenLight laser of locally invasive prostate cancer with suprapubic tube placement Orders: Orders AMB Leuprolide Injection - Practice Supplied Today C61 - Malignant neoplasm of prostate, C77.5 - Secondary and unspecified malignant neoplasm of intrapelvic lymph nodes, R33.9 - Retention of urine, unspecified AMB Bladder/Catheter Procedure Today C61 - Malignant neoplasm of prostate, C 77.5 - Secondary and unspecified malignant neoplasm of intrapelvic lymph nodes, R33.9 - Retention of urine, unspecified Medications: New Eligard (6 month) (leuprolide acetate (6 month)) 45 mg subcut ONCE 1 ea 0RF NS C61 - Malignant neoplasm of prostate, C77.5 - Secondary and unspecified malignant neoplasm of intrapelvic lymph nodes, R33.9 - Retention of urine, unspecified Patient Instructions: Imaging studies, laboratory and physical exam results were discussed and reviewed in detail. No major barriers to patient understanding were identified. An opportunity to ask questions regarding the treatment plan was provided. All questions were answered. The patient expressed understanding and agreement with the above treatment plan. The patient is aware they should contact our office by phone for worsening of their current condition or the appearance of new urologic symptoms. Compliance is encouraged with any medications and followup testing that is ordered. It is a privilege to participate in the urologic care of your patient. If you have any questions or concerns regarding treatment for the above conditions, or other urologic issues, please do not hesitate to contact me. The office telephone contact is [phone]. This note is constructed using voice recognition software. While every effort has been made to ensure accuracy lang interpreter errors may have been included. Yours sincerely, Dr Alexis Robertson MD, PAT[facility] - Urology Providers of Expert, Compassionate Care for the Genitourinary System Coding Level of Care Code Est Pt Level 4 (73644) Complex EM visit Add On G2211 Diagnoses Prostate cancer metastatic to intrapelvic lymph node C61; C77.5 UTI (urinary tract infection) due to urinary indwelling catheter T83.511A; N39.0 Urinary retention with incomplete bladder emptying R33.9
--- OUTSIDE RECORDS SUMMARY | 2024-10-13 16:27 | XMS_ITS ---
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 [facility] [place] Address [address] [place] [id number] Care Team Providers Care Public Works Inspector Name Role Phone ROWENA ROY Primary [...] INDIV IDUAL - MASS Sep 21, 2023 [id number] [phone] GENET [facility]UGAN [facility]ANT[facility] ([facility]) Sep 21, 2023 [id number] [phone] MARVIN DUGANI S PATIENT HUSKY MEDICAID HUSKY PLAN May 22, 2022 MEDICAI D [id number] GENET DUGAN S PATIENT MEDICARE (WN) MEDICARE (M) PART B May 22, 2022 PART B [id number] MARVIN DUGANI S PATIENT MEDICARE (WNR) MEDICARE (M) PART A Feb 19, 2009 PART A [id number] [phone] DUGAN,GENET S PATIENT MEDICARE PART D (WNR) MEDICARE (M) PART D Jul 22, 2022 PART D [id number] [phone] GENET DUGAN PATIENT [facility] (WNR) MEDICARE ADVANTAGE [facility] (WNR) Sep 21, 2022 [id number] GENET DUGAN PATIENT [facility] (WNR) MEDICARE ADVANTAGE [facility] (WNR) Sep 21, 2022 [id number] [phone] GENET DUGAN PATIENT Selected Encounter This section includes the information on record at [place] for the Encounter. Date/Time Encounter Type Encounter Description Reason Pro vider Source Sep 15, 2024 09:28 AM Outpatient Encounter TELEPHONE PRIMARY CARE IHE Encounter Template Text not used by [place] Plan of Treatment: Future Appointments (+ 6 [...] 13, 2024 01:30 PM AMBULATORY - MEDICINE [facility] Jan 02, 2025 10:00 AM AMBULATORY - MEDICINE [facility] Lab Results: +/- 30 days [...] Range Comment Aug 24, 2024 11:28 AM [place] CBC AND DIFF (AUTO) Specimen Type: BLOOD No comment entered. Ordering Provider: CAMACHO ROY Report Released Date/Time: Aug 24, 2024 11:07 AM Reporting Lab: [facility] [address] [facility] [address] Performing Lab: [facility] [address] [facility] [address] WBC 8.84 10*3/uL 4.50-11.00 RBC 4.72 10*6/uL [...] Aug 09, 2024 09:43 AM Reporting Lab: [facility] [address] [facility] [address] Performing Lab: [facility] [address] [facility] [address] UA WBC 0-5 /[HPF] 0-5 UA BACTERIA [...] Aug 09, 2024 09:43 AM Reporting Lab: [facility] [address] [facility] [address] Performing Lab: [facility] [address] [facility] [address] UA COLOR Light-Brown Yellow UA APPEARANCE Turbid [...] AM CHEST CT W/O CONT: JAKE DUGAN [id number] -1945 M Exm Date: SEP 01, 2024@10:54 Req Phys: LUBA,NOLAN Pat Loc: CWM/SO/PACT 9 (Req'g Loc) Img Loc: [facility]/CT Service: Unknown [place] [facility] [place] [facility] JOSE ROBERTO, CLAUDIA [address] (Case [id number] COMPLETE) CT THORAX W/O CONT (CT Detailed) CPT:08256 Reason for Study: LDCT Clinical History: lung CA screen/surveillance as per protocol Report Status: Verified Date Reported: SEP 01, 2024 Date Verified: SEP 01, 2024 [place] E-Sig:/ES/STARR MCDANIEL JR Report: Study: Noncontrast CT [...] Primary Interpreting Staff: STARR MCDANIEL JR, Radiologist ([place]atwork Feeder) /STARR HERNANDEZ JR [place] [facility] [place] [facility] Aug 16, 2024 02:[address] ABDOMEN AND PELVIS WITH CONTRAST: JAKE DUGAN [id number] -1945 M Exm Date: AUG 16, 2024@14:04 Req Phys: LUBA,NOLAN Pat Loc: CWM/SO/PACT 9 (Req'g Loc) Img Loc: [facility]/CT Service: Unknown [place] [facility] [place] [facility] [address] (Case [id number] COMPLETE) CT ABDOMEN AND PELVIS WITH CONTRA(CT Detailed) CPT:70958 Contrast Media : Non-ionic Iodinated Reason for Study: prostate CA Clinical History: Report Status: Verified Date Reported: AUG 16, 2024 Date Verified: AUG 16, 2024 [place] E-Sig: Report: CT ABDOMEN AND PELVIS WITH [...] tumor infiltration. READING PHYSICIAN: Kwabena Perez M.D. -[phone] 08/16/2024 20:18 [facility] National Teleradiology Program [phone] (For Medical Practitioner Use Only) Attention Patients [...] Lab: [facility] [CLIA# [id number]] [address] [place] [address] Accession [UID]: [id number] [[id number]] Received: Aug 24, 2024@11:28 Collection sample: URINE CLEAN CATCH Collection date: Aug 24, 2024 11:28 Site/Specimen: URINE Provider: NOLAN VERDUZCO Comment on specimen: POSITIVE CULTURE RESULTS MAY NOT REPRESENT CLINICAL INFECTION. CONSIDER NEED FOR ANTIBIOTICS IN THE CONTEXT OF UTI SYMPTOMS. Test(s) ordered: URINE CULTURE(MWROX).......... completed: Aug 29, 2024 08:33 * BACTERIOLOGY FINAL REPORT => Aug 29, 2024 08:32 TECH CODE: [id number] CULTURE RESULTS: 1. KLEBSIELLA OXYTOCA/RAOULTELLA ORNITHINOLYTICA - [...] Klebsiella Oxytoca/raoultella Ornithinolytica Performed By: [facility] [CLIA# [id number]] [address] [place] [address] Pseudomonas Aeruginosa Performed By: [facility] [CLIA# [id number]] [address] [place] [address] Bact Report Remark #1 Performed By: [facility] [CLIA# [id number]] [address] [place] [address] Bact Report Remark #2 Performed By: [facility] [CLIA# [id number]] [address] [place] [address] ENRIQUETA FLORES
--- OUTSIDE RECORDS SUMMARY | 2024-10-13 16:27 | XMS_ITS | Continuity of Care Document ---
Author Name [facility] Organization [facility] Care Team Providers Care Hat Block Bench Hand Name Role Phone [facility] Unavailable Unavailable Problems Combined list of problems from Department of Defense and Veterans Affairs facilities. It does not include entries that were removed or entered in error. Problem Status Onset Date Problem Type Date of Resolution Comments Source Atypical chest pain Active Condition February 12, 2016 Entered By: ALICIA MACHADO Comment: [facility] [phone] PA OV 12-05-15May 2015 Entered By: ALICIA [...] 11 16 Entered By: ALICIA MACHADO Comment: [facility] [phone] PA OV 12-05-15 [facility] Essential hypertension Active Condition February 12, 2016 Entered By: ALICIA MACHADO Comment: [facility] [phone] PA OV 12-05-15 [facility] [place] [facility] [place] [facility] Olecranon bursitis Active Condition [facility] Osteoarthritis (SNOMED CT [id number]) Active Condition Dec 07, 2017 Entered By: ALICIA MACHADO Comment: C/S worst at C6-C7 2017 Entered By: ALICIA MACHADO Comment: mod OA Interphalamgeal joint right thumb 09/06 [facility] Paraesthesia of lower extremity (SNOMED CT 947213167) Active Condition Apr 23, 2021 Entered By: [...] 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 [facility] [facility] Diagnosis: ICD-10-CM C61 Malignant neoplasm of prostate Active Diagnosis [facility] Diagnosis: ICD-10-CM Z46.0 Encounter for fit/adjst of spectacles and contact lenses Active Diagnosis [facility] Diagnosis: ICD-10-CM N50.9 Disorder of male genital organs, unspecified Active Diagnosis [facility] Diagnosis: ICD-10-CM Z01.810 Encounter for preprocedural cardiovascular examination Active Diagnosis [facility] [facility] Diagnosis: ICD-10-CM Z23 Encounter for immunization Active Diagnosis [facility] [facility] Diagnosis: ICD-10-CM Z51.81 Encounter for therapeutic drug level monitoring Active Diagnosis [facility] Diagnosis: ICD-10-CM 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, unspecified Active Diagnosis [facility] [facility] Diagnosis: ICD-10-CM L82.1 Other seborrheic keratosis Active Diagnosis [facility] Diagnosis: ICD-10-CM Z13.89 Encounter for screening for other disorder [facility] Diagnosis: ICD-10-CM L02.818 Cutaneous abscess of other sites Active Diagnosis [facility] Diagnosis: ICD-10-CM L02.212 Cutaneous abscess of back [any part, except buttock] Active Diagnosis [facility] [facility] Diagnosis: ICD-10-CM W06.XXXA Fall from bed, initial encounter Active Diagnosis [facility] [facility] Diagnosis: ICD-10-CM H40.013 Open angle with borderline findings, low risk, bilateral [facility] [place] [facility] Diagnosis: ICD-10-CM R97.20 Elevated prostate specific antigen [PSA] Active Diagnosis [facility] [facility] Diagnosis: ICD-10-CM I10 Essential (primary) hypertension Active Diagnosis [facility] [facility] Diagnosis: ICD-10-CM M54.59 Other low back pain Active [facility] Diagnosis: ICD-10-CM 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 [facility] Diagnosis: ICD-10-CM Z59.00 Homelessness unspecified Active Diagnosis [facility] [facility] Diagnosis: ICD-10-CM Z00.01 Encounter for general adult medical exam w abnormal findings Active Diagnosis [facility] [place] Diagnosis: ICD-10-CM R68.89 Other general symptoms and signs Active [facility] [place] [facility] Diagnosis: ICD-10-CM R20.2 Paresthesia of skin Active Diagnosis [facility] [facility] Diagnosis: ICD-10-CM M54.50 Low back pain, unspecified Active Diagnosis [facility] Medications Combined list of outpatient medications from [...] 6 HOURS NEEDED FOR PAIN ORAL 03/27/2024 [id number] Zoe MCLAIN 2023 100 [place] ASCORBIC ACID 500MG TAB TAKE TWO TABLETS BY MOUTH ONCE DAILY FOR VITAMIN/ NUTRITIO N SUPPLEME NT ORAL ACTIVE 09/09/2025 [id number] 4 MICHAEL IYER MD 2023 200 [facility] CAPSAICIN 0.025% CREAM,TOP APPLY A MODERATE AMOUNT TOPICALL Y FOUR TIMES A DAY FOR LOCALIZE D PAIN (USE FOR AT LEAST 4 WEEKS FOR EFFECT) TOPICA L ACTIVE 12/22/2024 [id number] 4 LUBAMANSOOR MARTINEZ O 2023 60 [place] CARBOXYMETH YLCELLULOSE NA 0.5% SOLN,OPH INSTILL 1 DROP INTO EACH EYE FOUR TIMES DAILY NEEDED FOR DRY EYE OPHTHA LMIC DISCONT INUED BY PROVIDE R 12/23/2023 [id number] 4 MERHAR,NO AH B 2022 45 [facility] CARBOXYMETH YLCELLULOSE NA 1% GEL,OPH APPLY 1 DROP INTO EACH EYE FOUR TIMES DAILY NEEDED FOR DRY EYE OPHTHA LMIC ACTIVE 12/31/2024 [id number] 4 MERHAR,NO AH B 2023 15 [facility] CEFUROXIME AXETIL 500MG TAB TAKE ONE TABLET BY MOUTH TWICE DAILY ORAL 03/23/2024 [id number] 4 PINKY HERRERA 2023 14 [place] CEPHALEXIN 500MG CAP TAKE ONE CAPSULE BY MOUTH THREE TIMES A DAY FOR INFECTIO N ORAL 10/02/2024 [id number] 4 KENNETH BANUELOS 2023 21 [facility] CHOLECALCIF ELMA 10MCG (400UNIT) TAB TAKE ONE TABLET BY MOUTH ONCE DAILY FOR VITAMIN SUPPLEME NTATION ORAL ACTIVE 11/22/2024 [id number] 4 Mahnaz ROY 2023 90 [place] CIPROFLOXAC IN HCL 500MG TAB TAKE ONE TABLET BY MOUTH TWICE DAILY FOR 7 DAYS FOR INFECTIO N ORAL 09/24/2024 [id number] 4 TAWANA BRANDON SOOR 2023 14 [place] CYANOCOBALA MIN 250MCG TAB TAKE ONE TABLET BY MOUTH ONCE DAILY ORAL ACTIVE 08/25/2025 [id number] 4 Mahnaz ROY A 2023 100 [place] CYCLOSPORIN E 0.05% (PF) EMULSION,OP H,0.4ML INSTILL 1 DROP INTO EACH EYE TWICE DAILY FOR DRY EYE THIS REPLACES XIIDRA OPHTHA LMIC ACTIVE 03/22/2025 [id number] 4 MERHAR,NO AH B 2023 60 [place] FINASTERIDE 5MG TAB TAKE ONE TABLET BY MOUTH ONCE DAILY FOR ENLARGED PROSTATE ORAL ACTIVE 04/01/2025 [id number] 4 LUBAVINICIOLINARI O 2023 90 [place] FLUTICASONE PROPIONATE 50MCG/SPRAY SOLN,NASAL, 16GM INSTILL 1 SPRAY INTO EACH NOSTRIL TWICE DAILY NASAL ACTIVE BRIJESH SELF IA 2015 [place] KETOTIFEN 0.025% SOLN,OPH INSTILL 1 DROP INTO EACH EYE TWICE DAILY (IF YOU WEAR CONTACT LENSES, WAIT 10 MINUTES BEFORE INSERTIN G LENSES) OPHTHA LMIC ACTIVE 12/04/2024 [id number] 4 MERHAR,NO AH B 2023 15 [facility] KETOTIFEN 0.025% SOLN,OPH INSTILL 1 DROP INTO EACH EYE TWICE DAILY (IF YOU WEAR CONTACT LENSES, WAIT 10 MINUTES BEFORE INSERTIN G LENSES) OPHTHA LMIC DISCONT INUED 11/01/2023 [id number] 3 CHANTEL BRYANT 2022 15 [place] LEVOFLOXACI N 250MG TAB TAKE ONE TABLET BY MOUTH ONCE DAILY FOR 7 DAYS FOR INFECTIO N CAUSED BY BACTERIA ORAL ACTIVE 11/04/2024 [id number] 5 MICHAEL IYER MD 2024 7 [facility] LIFITEGRAST 5% SOLN,OPH,0. 2ML INSTILL 1 DROP INTO EACH EYE TWICE DAILY OPHTHA LMIC DISCONT INUED BY PROVIDE R 12/31/2024 [id number] 4 WALTER HOLLOWAY B 2023 60 [facility] LIFITEGRAST 5% SOLN,OPH,0. 2ML INSTILL 1 DROP INTO EACH EYE TWICE DAILY OPHTHA LMIC DISCONT INUED 11/01/2023 [id number] 3 CHANTEL BRYANT 2022 60 [place] LISINOPRIL 20MG TAB TAKE ONE TABLET BY MOUTH ONCE DAILY TO CONTROL BLOOD PRESSURE ORAL ACTIVE 12/04/2024 [id number] 4 MANSOOR VERDUZCO 2023 90 [place] METHENAMINE HIPPURATE 1GM TAB TAKE ONE TABLET BY MOUTH ONCE DAILY ORAL ACTIVE 09/09/2025 [id number] 4 MICHAEL IYER MD 2023 90 [facility] Allergies, Adverse Reactions, Alerts Combined list of allergies from Department of Defense and Veterans Affairs facilities. It does not include entries that were removed or entered in error. Substance Category Reaction Severity Reaction type Status Date Reported Comments Source HCTZ HYDROCHLOROT HIAZIDE Propensity to adverse reactions to drug (finding) Xerostomia active 8 [facility] Immunizations Combined list of available immunizations from the Department of Defense and Veterans Affairs facilities. Immunization Series Date Given Administered By Site Reaction Lot Number CVX Code Drug Supervisor Order Takers Status Comments Source INFLUENZA, HIGH-DOSE, TRIVALENT, PF 2023 NIK BRANDON H LEFT DELTO ID [id number] 135 complet ed [place] HEP A, ADULT 2 2023 POALA FREDERICK LEFT DELTO ID [id number] 52 complet ed [place] COVID-19 (MODERNA), MRNA, LNP-S, PF, 50 MCG/0.5 ML (AGES 12+ YEARS) 2022 PAOLA FREDERICK LEFT DELTO ID [id number] 312 complet ed [place] HEP A, ADULT 1 2022 PAOLA FREDERICK RIGHT DELTO ID [id number] 52 complet ed [place] INFLUENZA, HIGH-DOSE, QUADRIVALENT 2022 [place] LEFT DELTO ID [id number] 197 complet ed [place] INFLUENZA, INJECTABLE, QUADRIVALENT, PRESERVATIVE FREE 2022 [place] LEFT DELTO ID [id number] 150 complet ed [place] COVID-19 (MODERNA), [...] DOSE 1 2020 207 complet ed MOD; [id number]; 1 [facility] [...] 11:07 AM Reporting Lab: [facility] [place] [facility] [address] [facility] [address] Performing Lab: [facility] [address] [address] [place] CBC AND DIFF (AUTO) ERYTHROCYT ES [#/VOLUME] IN BLOOD BY AUTOMATED COUNT 4.72 10*6/uL 4.23 - 5.66 08/24 Specimen Type: BLOOD No comment entered. Ordering Provider: DANISHA ROY A Report Released Date/Time: Aug 24, 2024 11:07 AM Reporting Lab: [facility] [place] [facility] [address] [facility] [address] Performing Lab: [facility] [address] [place] CBC AND DIFF (AUTO) HEMOGLOBIN [MASS/VOLU ME] IN BLOOD 12.8 g/dL 12.8 - 17 08/24 Specimen Type: BLOOD No comment entered. Ordering Provider: DANISHA ROY A Report Released Date/Time: Aug 24, 2024 11:07 AM Reporting Lab: [facility] [place] [facility] [address] [facility] [address] Performing Lab: [facility] [address] [address] [place] CBC AND DIFF (AUTO) HEMATOCRIT [VOLUME FRACTION] OF BLOOD BY AUTOMATED COUNT 38.8 39.2 - 50.4 08/24 L Specimen Type: BLOOD No comment entered. Ordering Provider: DANISHA ROY A Report Released Date/Time: Aug 24, 2024 11:07 AM Reporting Lab: [facility] [place] [facility] [address] [address] Performing Lab: [facility] [address] [address] [place] CBC AND DIFF (AUTO) MCV [ENTITIC VOLUME] BY AUTOMATED COUNT 82.2 fL 82 - 99 08/24 Specimen Type: BLOOD No comment entered. Ordering Provider: DANISHA ROY A Report Released Date/Time: Aug 24, 2024 11:07 AM Reporting Lab: [facility]TR[facility] [address] [address] Performing Lab: [facility]N [address] [address] [place] CBC AND DIFF (AUTO) MCHC [MASS/VOLU ME] BY AUTOMATED COUNT 33.0 g/dL 30.8 - 35.1 08/24 Specimen Type: BLOOD No comment entered. Ordering Provider: DANISHA ROY A Report Released Date/Time: Aug 24, 2024 11:07 AM Reporting Lab: [facility]TR[facility]ENTERUSETS [address] [address] Performing Lab: [facility]N [address] [address] [place] CBC AND DIFF (AUTO) PLATELETS [#/VOLUME] IN BLOOD BY AUTOMATED COUNT 312 10*3/uL 140 - 360 08/24 Specimen Type: BLOOD No comment entered. Ordering Provider: DANISHA ROY A Report Released Date/Time: Aug 24, 2024 11:07 AM Reporting Lab: [facility]ITALTRN [address] [address] Performing Lab: [facility]TR[facility] [address] [address] [place] CBC AND DIFF (AUTO) ERYTHROCYT E DISTRIBUTI ON WIDTH [RATIO] BY AUTOMATED COUNT 12.3 12.0 - 16.0 08/24 Specimen Type: BLOOD No comment entered. Ordering Provider: DANISHA ROY A Report Released Date/Time: Aug 24, 2024 11:07 AM Reporting Lab: [facility] [place] [address] [address] Performing Lab: [facility] [address] [address] [place] CBC AND DIFF (AUTO) MONOCYTES [#/VOLUME] IN BLOOD BY AUTOMATED COUNT 0.39 10*3/uL 0.30 - 1.10 08/24 Specimen Type: BLOOD No comment entered. Ordering Provider: DANISHA ROY A Report Released Date/Time: Aug 24, 2024 11:07 AM Reporting Lab: [facility] [address] [address] Performing Lab: [facility]ITALTRN [address] [address] [place] CBC AND DIFF (AUTO) MCH [ENTITIC MASS] BY AUTOMATED COUNT 27.1 pg 26.2 - 32.6 08/24 Specimen Type: BLOOD No comment entered. Ordering Provider: DANISHA ROY A Report Released Date/Time: Aug 24, 2024 11:07 AM Reporting Lab: [facility] [address] [address] Performing Lab: [facility]ITALTRN [address] [address] [place] CBC AND DIFF (AUTO) NEUTROPHIL S/100 LEUKOCYTES IN BLOOD BY AUTOMATED COUNT 80.9 43.7 - 75.8 08/24 H Specimen Type: BLOOD No comment entered. Ordering Provider: DANISHA ROY A Report Released Date/Time: Aug 24, 2024 11:07 AM Reporting Lab: [facility] TRN [address] [place] [address] Performing Lab: IN CN[facility]L WSTRN [facility]ENTER[facility] [address] [address] [place] CBC AND DIFF (AUTO) LYMPHOCYTE S/100 LEUKOCYTES IN BLOOD BY AUTOMATED COUNT 12.2 14.0 - 42.3 08/24 L Specimen Type: BLOOD No comment entered. Ordering Provider: DANISHA ROY A Report Released Date/Time: Aug 24, 2024 11:07 AM Reporting Lab: [facility] [place] [address] [address] Performing Lab: [facility]ENTER[facility] [address] [place] CBC AND DIFF (AUTO) MONOCYTES/ 100 LEUKOCYTES IN BLOOD BY AUTOMATED COUNT 4.4 5.1 - 13.7 08/24 L Specimen Type: BLOOD No comment entered. Ordering Provider: DANISHA ROY A Report Released Date/Time: Aug 24, 2024 11:07 AM Reporting Lab: [facility] [address] [address] Performing Lab: IN [facility] [address] [address] [place] CBC AND DIFF (AUTO) EOSINOPHIL S/100 LEUKOCYTES IN BLOOD BY AUTOMATED COUNT 1.6 0.4 - 6.8 08/24 Specimen Type: BLOOD No comment entered. Ordering Provider: DANISHA ROY A Report Released Date/Time: Aug 24, 2024 11:07 AM Reporting Lab: [facility] [address] [address] Performing Lab: [facility] [address] [address] [place] CBC AND DIFF (AUTO) BASOPHILS/ 100 LEUKOCYTES IN BLOOD BY AUTOMATED COUNT 0.7 0.1 - 2.0 08/24 Specimen Type: BLOOD No comment entered. Ordering Provider: DANISHA ROY A Report Released Date/Time: Aug 24, 2024 11:07 AM Reporting Lab: [facility] [address] [address] Performing Lab: [facility] [place] [facility] [address] [facility] [address] [place] CBC AND DIFF (AUTO) NEUTROPHIL S [#/VOLUME] IN BLOOD BY AUTOMATED COUNT 7.15 10*3/uL 2.20 - 7.60 08/24 Specimen Type: BLOOD No comment entered. Ordering Provider: DANISHA ROY A Report Released Date/Time: Aug 24, 2024 11:07 AM Reporting Lab: [facility] [place] [address] [address] Performing Lab: [facility] [address] [address] [place] CBC AND DIFF (AUTO) LYMPHOCYTE S [#/VOLUME] IN BLOOD BY AUTOMATED COUNT 1.08 10*3/uL 1.00 - 3.20 08/24 Specimen Type: BLOOD No comment entered. Ordering Provider: DANISHA ROY A Report Released Date/Time: Aug 24, 2024 11:07 AM Reporting Lab: [facility] [place] [address] [address] Performing Lab: [facility] [place] [address] [address] [place] CBC AND DIFF (AUTO) EOSINOPHIL S [#/VOLUME] IN BLOOD BY AUTOMATED COUNT 0.14 10*3/uL 0.03 - 0.44 08/24 Specimen Type: BLOOD No comment entered. Ordering Provider: DANISHA ROY A Report Released Date/Time: Aug 24, 2024 11:07 AM Reporting Lab: [facility] [place] [address] [address] Performing Lab: [facility] [address] [address] [place] CBC AND DIFF (AUTO) BASOPHILS [#/VOLUME] IN BLOOD BY AUTOMATED COUNT 0.06 10*3/uL 0.01 - 0.13 08/24 Specimen Type: BLOOD No comment entered. Ordering Provider: DANISHA ROY A Report Released Date/Time: Aug 24, 2024 11:07 AM Reporting Lab: [facility] [address] [address] Performing Lab: [facility] [address] [address] [place] CBC AND DIFF (AUTO) IMMATURE GRANULOCYT ES/100 LEUKOCYTES IN BLOOD BY AUTOMATED COUNT 0.2 0.0 - 0.7 08/24 Specimen Type: BLOOD No comment entered. Ordering Provider: DANISHA ROY A Report Released Date/Time: Aug 24, 2024 11:07 AM Reporting Lab: [facility]N [address] [address] Performing Lab: [facility] [address] [address] [place] CBC AND DIFF (AUTO) IMMATURE GRANULOCYT ES [#/VOLUME] IN BLOOD 0.02 10*3/uL 0.00 - 0.06 08/24 Specimen Type: BLOOD No comment entered. Ordering Provider: DANISHA ROY A Report Released Date/Time: Aug 24, 2024 11:07 AM Reporting Lab: [facility] [address] [address] Performing Lab: [facility] [address] [address] [place] CBC AND DIFF (AUTO) NRBC % 0.0 0.0 - 0.0 08/24 Specimen Type: BLOOD No comment entered. Ordering Provider: DANISHA ROY A Report Released Date/Time: Aug 24, 2024 11:07 AM Reporting Lab: [facility] [address] [address] Performing Lab: [facility] [address] [address] [place] CBC AND DIFF (AUTO) NRBC, ABS 0.00 10*3/uL 0.00 - 0.00 08/24 Specimen Type: BLOOD No comment entered. Ordering Provider: DANISHA ROY A Report Released Date/Time: Aug 24, 2024 11:07 AM Reporting Lab: [facility] [address] [address] Performing Lab: [facility] [place] [facility] [address] [facility] [address] [place]CROS[employer] IC AUTOMATED , URINE LEUKOCYTES [#/AREA] IN URINE SEDIMENT BY MICROSCOPY HIGH POWER FIELD 0-5/[HP F] 0 - 5 08/24 Specimen Type: URINE Comment: If Glucose = >500 and Ketones are positive, please alert the Physician. Ordering Provider: ZAKI VERDUZCO Report Released Date/Time: Aug 09, 2024 09:43 AM Reporting Lab: [facility] [place] [facility] [address] [address] Performing Lab: [facility] [place] [facility] [address] [facility] [address] [facility] [place] [facility] MICROSCOP IC AUTOMATED , URINE BACTERIA [#/AREA] IN URINE SEDIMENT BY MICROSCOPY HIGH POWER FIELD 1+/[HPF ] 08/24 Specimen Type: URINE Comment: If Glucose = >500 and Ketones are positive, please alert the Physician. Ordering Provider: ZAKI VERDUZCO Report Released Date/Time: Aug 09, 2024 09:43 AM Reporting Lab: [facility] [place] [facility] [address] [address] Performing Lab: [facility] [place] [facility] [address] [address] [facility] [place] [facility] MICROSCOP IC AUTOMATED , URINE TRIPLE PHOSPHATE CRYSTALS [PRESENCE] IN URINE SEDIMENT BY LIGHT MICROSCOPY MODERAT E/[HPF] 08/24 Specimen Type: URINE Comment: If Glucose = >500 and Ketones are positive, please alert the Physician. Ordering Provider: ZAKI VERDUZCO Report Released Date/Time: Aug 09, 2024 09:43 AM Reporting Lab: [facility] [place] [facility] [address] [address] Performing Lab: [facility] [place] [facility] [address] [facility] [address] [facility] [place] [facility] MICROSCOP IC AUTOMATED , URINE ERYTHROCYT ES [#/AREA] IN URINE SEDIMENT BY MICROSCOPY HIGH POWER FIELD 6-10/[H PF] 0 - 3 08/24 H Specimen Type: URINE Comment: If Glucose = >500 and Ketones are positive, please alert the Physician. Ordering Provider: ZAKI VERDUZCO Report Released Date/Time: Aug 09, 2024 09:43 AM Reporting Lab: [facility] [place] [address] [address] Performing Lab: [facility] [place] [address] [address] [facility] [place] [facility] URINALYSI S COLOR OF URINE Light-B rown 08/24 Specimen Type: URINE Comment: If Glucose = >500 and Ketones are positive, please alert the Physician. Ordering Provider: ZAKI VERDUZCO Report Released Date/Time: Aug 09, 2024 09:43 AM Reporting Lab: [facility] [place] [address] [address] Performing Lab: [facility] [place] [address] [address] [facility] [place] [facility] URINALYSI S APPEARANCE OF URINE Turbid 08/24 Specimen Type: URINE Comment: If Glucose = >500 and Ketones are positive, please alert the Physician. Ordering Provider: ZAKI VERDUZCO Report Released Date/Time: Aug 09, 2024 09:43 AM Reporting Lab: [facility] [place] [address] [address] Performing Lab: [facility] [place] [address] [address] [facility] [place] [facility] URINALYSI S GLUCOSE [MASS/VOLU ME] IN URINE Normalm g/dL 08/24 Specimen Type: URINE Comment: If Glucose = >500 and Ketones are positive, please alert the Physician. Ordering Provider: ZAKI VERDUZCO Report Released Date/Time: Aug 09, 2024 09:43 AM Reporting Lab: [facility] [place] [address] [address] Performing Lab: [facility] [place] [facility] [address] [facility] [address] [facility] [place] [facility] URINALYSI S KETONES [MASS/VOLU ME] IN URINE BY TEST STRIP NEGATIV Emg/dL 08/24 Specimen Type: URINE Comment: If Glucose = >500 and Ketones are positive, please alert the Physician. Ordering Provider: ZAKI VERDUZCO Report Released Date/Time: Aug 09, 2024 09:43 AM Reporting Lab: [facility] [place] [facility] [address] [address] Performing Lab: [facility] [address] [address] [facility] [place] [facility] URINALYSI S ERYTHROCYT ES [PRESENCE] IN URINE SEDIMENT BY LIGHT MICROSCOPY LARGEmg /dL 08/24 Specimen Type: URINE Comment: If Glucose = >500 and Ketones are positive, please alert the Physician. Ordering Provider: ZAKI VERDUZCO Report Released Date/Time: Aug 09, 2024 09:43 AM Reporting Lab: [facility] [place] [place] [address] [address] Performing Lab: [facility] [place] [address] [address] [facility] [place] [facility] URINALYSI S PROTEIN [MASS/VOLU ME] IN URINE BY TEST STRIP 100 mg/dL 08/24 Specimen Type: URINE Comment: If Glucose = >500 and Ketones are positive, please alert the Physician. Ordering Provider: ZAKI VERDUZCO Report Released Date/Time: Aug 09, 2024 09:43 AM Reporting Lab: [facility] [place] [address] [address] Performing Lab: [facility] [place] [facility] [address] [facility] [address] [facility] [place] [facility] URINALYSI S NITRITE [PRESENCE] IN URINE NEGATIV Emg/dL 08/24 Specimen Type: URINE Comment: If Glucose = >500 and Ketones are positive, please alert the Physician. Ordering Provider: ZAKI VERDUZCO Report Released Date/Time: Aug 09, 2024 09:43 AM Reporting Lab: [facility] [place] [address] [address] Performing Lab: [facility] [place] [address] [address] [facility] [place] [facility] URINALYSI S BILIRUBIN. TOTAL [PRESENCE] IN URINE NEGATIV Emg/dL 08/24 Specimen Type: URINE Comment: If Glucose = >500 and Ketones are positive, please alert the Physician. Ordering Provider: ZAKI VERDUZCO Report Released Date/Time: Aug 09, 2024 09:43 AM Reporting Lab: [facility] [place] [address] [address] Performing Lab: [facility] [address] [address] [facility] [place] [facility] URINALYSI S SPECIFIC GRAVITY OF URINE BY REFRACTOME TRY 1.007 1.016 - 1.022 08/24 L Specimen Type: URINE Comment: If Glucose = >500 and Ketones are positive, please alert the Physician. Ordering Provider: ZAKI VERDUZCO Report Released Date/Time: Aug 09, 2024 09:43 AM Reporting Lab: [facility] [place] [address] [address] Performing Lab: [place] [address] [address] [facility] [place] [facility] URINALYSI S PH OF URINE BY TEST STRIP 8.5 5.0 - 9.0 08/24 Specimen Type: URINE Comment: If Glucose = >500 and Ketones are positive, please alert the Physician. Ordering Provider: ZAKI VERDUZCO Report Released Date/Time: Aug 09, 2024 09:43 AM Reporting Lab: [facility] [place] [address] [address] Performing [facility]: [facility] [address] [facility] [address] [facility] URINALYSI S UROBILINOG EN [MASS/VOLU ME] IN URINE BY TEST STRIP Normalm g/dL <2.0 - 2.0 08/24 Specimen Type: URINE Comment: If Glucose = >500 and Ketones are positive, please alert the Physician. Ordering Provider: ZAKI VERDUZCO Report Released Date/Time: Aug 09, 2024 09:43 AM Reporting Lab: [address] [address] Performing Lab: [address] [address] [facility] URINALYSI S LEUKOCYTE ESTERASE [PRESENCE] IN URINE BY TEST STRIP LARGE 08/24 Specimen Type: URINE Comment: If Glucose = >500 and Ketones are positive, please alert the Physician. Ordering Provider: AZKI VERDUZCO Report Released Date/Time: Aug 09, 2024 09:43 AM Reporting Lab: [address] [address] Performing Lab: [address] [address] [facility] VITAMIN D 25-OH (Therapy monitor) [...] additional information , please refer to http://educ atTap.Me.[employer] .EVIIVO/faq/FA Q199 (This link is being provided for information al/ educational purposes only.) This test was developed and its analytical performance characteris tics have been determined by [facility] [place]. It has not been cleared or approved by the U.S. Food and Drug Administrat ion. This assay has been validated pursuant to the CLIA regulations and is used for clinical purposes. This test was developed and its analytical performance characteris tics have been determined by [facility] [place]. It has not been cleared or approved by the U.S. Food and Drug Administrat ion. This assay has been validated pursuant to the CLIA regulations and is used for clinical purposes. Test Performed by [facility], [facility], [address] [place] [address] Dov Bahena M.D., Ph.D., Director of Laboratorie s , CLIA [id number] TEST PERFORMED AT: , Ordering Provider: ZAKI VERDUZCO Report Released Date/Time: Aug 08, 2024 10:54 AM Reporting Lab: [facility] [address] [facility] [address] Performing Lab: [facility] [address] [address] [facility] VITAMIN D 25-[place] (Therapy monitor) [...] additional information , please refer to http://educ ation.[employer]Link .com/faq/FA Q199 (This link is being provided for information al/ educational purposes only.) This test was developed and its analytical performance characteris tics have been determined by [facility] [place] It has not been cleared or approved by the U.S. Food and Drug Administrat ion. This assay has been validated pursuant to the CLIA regulations and is used for clinical purposes. This test was developed and its analytical performance characteris tics have been determined by [facility] [employer] [place]. It has not been cleared or approved by the U.S. Food and Drug Administrat ion. This assay has been validated pursuant to the CLIA regulations and is used for clinical purposes. Test Performed by [facility], [facility], [address] [place] [address] Dov Bahena M.D., Ph.D., Director of Laboratorie s , CLIA [id number] TEST PERFORMED AT: , Ordering Provider: ZAKI VERDUZCO Report Released Date/Time: Aug 08, 2024 10:54 AM Reporting Lab: [facility] [address] [facility] [address] Performing Lab: [facility] [address] [address] [facility] VITAMIN D 25-OH (Therapy monitor) [...] additional information , please refer to http://educ ation.[employer] .com/faq/FA Q199 (This link is being provided for information al/ educational purposes only.) This test was developed and its analytical performance characteris tics have been determined by [facility] [place] It has not been cleared or approved by the U.S. Food and Drug Administrat ion. This assay has been validated pursuant to the CLIA regulations and is used for clinical purposes. This test was developed and its analytical performance characteris tics have been determined by [facility] [place] It has not been cleared or approved by the U.S. Food and Drug Administrat ion. This assay has been validated pursuant to the CLIA regulations and is used for clinical purposes. Test Performed by [facility], [facility], [address] [place] [address] Dov Bahena M.D., Ph.D., Director of Laboratorie s , CLIA [id number] TEST PERFORMED AT: , Ordering Provider: ZAKI VERDUZCO Report Released Date/Time: Aug 08, 2024 10:54 AM Reporting Lab: [facility] [place] [facility] [address] [facility] [address] Performing Lab: [facility] [id number] [place], [place] [address] [facility] FOLATE (WROX) FOLATE [MASS/VOLU ME] IN SERUM OR PLASMA 4.07 ng/mL 5.2 08/08 L Specimen Type: SERUM No comment entered. Ordering Provider: ZAKI VERDUZCO Report Released Date/Time: Aug 08, 2024 10:54 AM Reporting Lab: [facility] [place] [facility] [address] [facility] [address] Performing Lab: [facility] [address] [facility] [address] [facility] [place] [facility] MICROALBU MIN CREATININ E RATIO PANEL MICROALBUM IN/CREATIN INE [MASS RATIO] IN URINE 354.2 mg/g 0 - 29.9 08/08 H Specimen Type: URINE No comment entered. Ordering Provider: ZAKI VERDUZCO Report Released Date/Time: Aug 08, 2024 10:54 AM Reporting Lab: [facility] [place] [facility] [address] [facility] [address] Performing Lab: [facility] [place] [facility] [address] [facility] [address] [facility] [place] [facility] MICROALBU MIN CREATININ E RATIO PANEL MICROALBUM IN [MASS/VOLU ME] IN URINE 103.3 mg/dL 08/08 Specimen Type: URINE No comment entered. Ordering Provider: ZAKI VERDUZCO Report Released Date/Time: Aug 08, 2024 10:54 AM Reporting Lab: [facility] [place] [facility] [address] [facility] [address] Performing Lab: [facility] [place] [facility] [address] [facility] [address] [facility] [place] [facility] MICROALBU MIN CREATININ E RATIO PANEL CREATININE [MASS/VOLU ME] IN URINE 291.68 mg/dL 08/08 Specimen Type: URINE No comment entered. Ordering Provider: ZAKI VERDUZCO Report Released Date/Time: Aug 08, 2024 10:54 AM Reporting Lab: [facility] [place] [facility] [address] [facility] [address] Performing Lab: [facility] [place] [facility] [address] [facility] [address] [facility] [place] [facility] VITAMIN B12 COBALAMIN (VITAMIN B12) [MASS/VOLU ME] IN SERUM OR PLASMA 1849 pg/mL 200 - 900 08/08 H Specimen Type: SERUM No comment entered. Ordering Provider: ZAKI VERDUZCO Report Released Date/Time: Aug 08, 2024 10:54 AM Reporting Lab: [facility] [place] [facility] [address] [facility] [address] Performing Lab: [facility] [place] [facility] [address] [facility] [address] [facility] [place] [facility] LIPID PANEL FASTING CHOLESTERO L [MASS/VOLU ME] IN SERUM OR PLASMA 178 mg/dL 08/08 Specimen Type: SERUM No comment entered. Ordering Provider: ZAKI VERDUZCO Report Released Date/Time: Aug 08, 2024 10:54 AM Reporting Lab: [facility] [place] [facility] [address] [facility] [address] Performing Lab: IN CNTRL WSTRN [facility] [address] [facility] [address] IN CNTRL WSTRN [facility] LIPID PANEL FASTING TRIGLYCERI DE [MASS/VOLU ME] IN SERUM OR PLASMA 97 mg/dL 0 - 150 08/08 Specimen Type: SERUM No comment entered. Ordering Provider: ZAKI VERDUZCO Report Released Date/Time: Aug 08, 2024 10:54 AM Reporting Lab: IN CN[facility]L W[facility] [address] [facility] [address] Performing Lab: IN CNTRL WSTRN [facility] [address] [facility] [address] [facility]N [facility] LIPID PANEL FASTING CHOLESTERO L IN LDL [MASS/VOLU ME] IN SERUM OR PLASMA BY CALCULATIO N 97 mg/dL 0 - 129 08/08 Specimen Type: SERUM No comment entered. Ordering Provider: ZAKI VERDUZCO Report Released Date/Time: Aug 08, 2024 10:54 AM Reporting Lab: IN CNTRL TRN [facility] [address] [facility] [address] Performing Lab: IN CNTRL WSTRN [facility] [address] [facility] [address] IN CNTRL WSTRN [facility] LIPID PANEL FASTING CHOLESTERO L.TOTAL/CH OLESTEROL IN HDL [MASS RATIO] IN SERUM OR PLASMA 2.9 08/08 Specimen Type: SERUM No comment entered. Ordering Provider: ZAKI VERDUZCO Report Released Date/Time: Aug 08, 2024 10:54 AM Reporting Lab: [facility] [address] [facility] [address] Performing Lab: IN CNTRL WSTRN [facility] [address] [facility] [address] [facility] TRN [facility] LIPID PANEL FASTING CHOLESTERO L IN HDL [MASS/VOLU ME] IN SERUM OR PLASMA 62 mg/dL 40 - 60 08/08 H Specimen Type: SERUM No comment entered. Ordering Provider: ZAKI VERDUZCO Report Released Date/Time: Aug 08, 2024 10:54 AM Reporting Lab: [facility] [address] [facility] [address] Performing Lab: IN CNTRL W[facility]N [facility] [address] [facility] [address] [facility] HEMOGLOBI N A1C PANEL HEMOGLOBIN [...] Aug 08, 2024 10:54 AM Reporting Lab: [facility]N [facility] [address] [facility] [address] Performing Lab: [facility]N [address] [address] [facility]N [facility] BASIC METABOLIC PANEL (fasting) UREA NITROGEN [MASS/VOLU ME] IN SERUM OR PLASMA 22 mg/dL 7 - 25 08/08 Specimen Type: SERUM No comment entered. Ordering Provider: ZAKI VERDUZCO Report Released Date/Time: Aug 08, 2024 10:54 AM Reporting Lab: [facility] TRN [facility] [address] [facility] [address] Performing Lab: [facility] TRN [facility] [address] [facility] [address] [facility]N [facility]USE [facility] BASIC METABOLIC PANEL (fasting) GLUCOSE [MASS/VOLU ME] IN SERUM OR PLASMA 91 mg/dL 65 - 100 08/08 Specimen Type: SERUM No comment entered. Ordering Provider: ZAKI VERDUZCO Report Released Date/Time: Aug 08, 2024 10:54 AM Reporting Lab: [facility] W[facility]N [facility] [address] [facility] [address] Performing Lab: [facility]ITALTRN [facility] [address] [facility] [address] [facility]ITALTRN [facility]USE [facility] BASIC METABOLIC PANEL (fasting) SODIUM [MOLES/VOL UME] IN SERUM OR PLASMA 138 mmol/L 135 - 145 08/08 Specimen Type: SERUM No comment entered. Ordering Provider: ZAKI VERDUZCO Report Released Date/Time: Aug 08, 2024 10:54 AM Reporting Lab: [facility]ITALTRN [facility]ENTERUSE[address] [address] Performing Lab: [facility] TRN [facility]ENTERUSE[address] [address] [facility]ITALRBAYPOIN[facility] HOSPITALN [facility] BASIC METABOLIC PANEL (fasting) POTASSIUM [MOLES/VOL UME] IN SERUM OR PLASMA 4.8 mmol/L 3.5 - 5.0 08/08 Specimen Type: SERUM No comment entered. Ordering Provider: ZAKI VERDUZCO Report Released Date/Time: Aug 08, 2024 10:54 AM Reporting Lab: [facility] TRN [facility]ENTERUSE[address] [address] Performing Lab: [facility]ITAL[facility] WSTRN [facility] [address] [facility] [address] [facility]ITALRBAYPOIN[facility] HOSPITALN [facility]USE [facility] BASIC METABOLIC PANEL (fasting) CHLORIDE [MOLES/VOL UME] IN SERUM OR PLASMA 105 mmol/L 100 - 110 08/08 Specimen Type: SERUM No comment entered. Ordering Provider: ZAKI VERDUZCO Report Released Date/Time: Aug 08, 2024 10:54 AM Reporting Lab: [facility]PITALTRN [facility]ENTERUSE[address] [address] Performing Lab: [facility] TRN [facility]ENTERUSE[address] [address] [facility] BASIC METABOLIC PANEL (fasting) CARBON DIOXIDE, TOTAL [MOLES/VOL UME] IN SERUM OR PLASMA 25 meq/L 20 - 30 08/08 Specimen Type: SERUM No comment entered. Ordering Provider: ZAKI VERDUZCO Report Released Date/Time: Aug 08, 2024 10:54 AM Reporting Lab: [facility] [address] [facility] [address] Performing Lab: [facility]ITALR[facility]PITALN [facility] [address] [facility] [address] [facility] BASIC METABOLIC PANEL (fasting) CREATININE [MASS/VOLU ME] IN SERUM OR PLASMA 0.99 mg/dL 0.50 - 1.40 08/08 Specimen Type: SERUM No comment entered. Ordering Provider: ZAKI VERDUZCO Report Released Date/Time: Aug 08, 2024 10:54 AM Reporting Lab: [facility]ITAL[facility]PITALN [address] [address] Performing Lab: [facility] [address] [address] [facility] BASIC METABOLIC PANEL (fasting) GLOMERULAR FILTRATION RATE/1.73 SQ M.PREDICTE D [VOLUME RATE/AREA] IN SERUM, PLASMA OR BLOOD BY CREATININE -BASED FORMULA (CKD-EPI 2020) 77 mL/min 60 08/08 Specimen Type: SERUM No comment entered. Ordering Provider: ZAKI VERDUZCO Report Released Date/Time: Aug 08, 2024 10:54 AM Reporting Lab: [facility]ITAL[facility]OSPITALN [address] [address] Performing Lab: [address] [address] [facility] Vital Signs Combined list of inpatient and outpatient Vital Signs from Department of Defense and Veterans Affairs, ranging from 12 months to all on record, depending upon the facility. Vital Sign Value Date Comments Source SYSTOLIC BLOOD PRESSURE 154 08/24/20 24 12:28:43 [facility] DIASTOLIC BLOOD PRESSURE 78 12:28:43 [facility] PULSE OXIMETRY 97 08/24/2024 12:28:43 [facility] PAIN 0 08/24/2024 12:28:43 [facility] HEIGHT 70 08/24/2024 12:28:43 [facility] PULSE 68 08/24/2024 12:28:43 [facility] RESPIRATION 20 08/24/2024 12:28:43 [facility] SYSTOLIC BLOOD PRESSURE 155 08/09/20 24 09:58:25 [facility] [place] [facility] DIASTOLIC BLOOD PRESSURE 78 024 09:58:25 [facility] [place] [facility] PULSE OXIMETRY 97 08/09/2024 09:58:25 [facility] [place] [facility] WEIGHT 179.8 08/09/2024 09:58:25 [facility] [place] [facility] BMI 26kg/m2 08/09/2024 09:58:25 [facility] [place] [facility] PAIN 0 08/09/2024 09:58:25 [facility] [place] [facility] HEIGHT 70 08/09/2024 09:58:25 [facility] [...] ADM Date DC Date Status [facility] X REQ PHY/QHP [id number] Diagnos is: ICD-10- CM M54.50 Low back pain, unspeci fied
JOSE REDDY 04/20 [place] [facility] [id number] 04/20 [facility] [place] En[facility] [id number] 04/20 [facility] En[facility] [id number] 04/21 [facility] En[facility] [id number] 04/22 [facility] [place] En[facility] [id number] 05/08 [facility] En[facility] [id number] 05/20 [facility] En[facility] [id number] ARSH [place]ETT ON 05/20 [facility] En[facility] [id number] 05/22 [facility] [place] En[facility] [id number] 05/28 [facility] [place] OFF/OP EST MAY X REQ PHY/QHP [id number] Diagnos is: ICD-10- CM R20.2 Paresth esia of skin
Lou VERDUZCO 06/02 [place] [facility] En[facility] [id number] 06/03 [facility] En[facility] [id number] 06/04 [facility] En[facility] [id number] 06/04 [facility] OFF/OP EST MAY X REQ PHY/QHP [id number] Diagnos is: ICD-10- CM R68.89 Other general symptom s and signs<b r/> BARRY,ER IC K 06/05 [facility] [id number] 06/05 [facility] En[facility] [id number] 06/08 [facility] En[facility] [id number] 06/10 [facility] [place] OFFICE O/P EST MOD 30-39 MIN [id number] Diagnos is: ICD-10- CM Z00.01 Encount er for general adult medical exam w abnorma l finding s
LUBA,A POLINARIO 06[place]23 [place] [facility] Outpatient Encounter [id number] 06/23 [facility] [place] SELF-HELP/ PEER SVC PER 15MIN [id number] Diagnos is: ICD-10- CM Z59.00 Homeles sness unspeci fied
CAPELLA,CY NTHIA 06/25 [facility] OFFICE O/P EST LOW 20-29 MIN [id number] Diagnos is: ICD-10- CM D52.8 Other folate deficie ncy anemias
LUBA,A POLINARIO 06/30 [facility] OFFICE O/P NEW MOD 45-59 MIN [id number] Diagnos is: ICD-10- CM C61 Maligna nt neoplas m of prostat e
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
LUBA,A POLINARIO 07/06 [place] [facility] Outpatient Encounter [id number] 07/14 [facility] [place] [facility] En[facility] [id number] 07/16 [facility] OFF[facility] O/P NEW MOD 45-59 MIN [id number] Diagnos is: ICD-10- CM M54.59 Other low back pain
NICANOR MARIA 07/16 [facility] En[facility] [id number] 07/17 [facility] En[facility] [id number] 07/20 [facility] En[facility] [id number] 07/21 [facility] En[facility] [id number] 08/10 [facility] En[facility] [id number] 08/14 [facility] En[facility] [id number] 08/24 [facility] En[facility] [id number] 09/16 [facility] OFFICE O/P EST LOW 20-29 MIN [id number] Diagnos is: ICD-10- CM I10 Essenti al (primar y) hyperte nsion<b r/> Lou VERDUZCO 09/18 [place] [facility] En[facility] [id number] 10/06 [facility] En[facility] [id number] 10/06 [facility] [id number] 10/06 [facility] En[facility] [id number] 10/06 [facility] [place] Out[place] Encounter [id number] Lou VERDUZCOIO 10/06 [place] [facility] En[facility] [id number] 10/08 [facility] En[facility] [id number] 10/14 [facility] [id number] 10/26 [facility] [id number] 12/03 [facility] En[facility] [id number] 12/03 [facility] [place] OFFICE O/P EST MOD 30 MIN [id number] Diagnos is: ICD-10- CM R97.20 Elevate d prostat e specifi c antigen [PSA]<b r/> Lou VERDUZCONARIO 12/21 [place] [facility] COMPRE OPH EXAM EST PT 1/> [id number] Diagnos is: ICD-10- CM H40.013 Open angle with borderl ine finding s, low risk, bilater al
MERHAR,ALANA H B 12/30 [facility] CMPTR OPHTH IMG OPTIC NERVE [id number] Diagnos is: ICD-10- CM H40.013 Open angle with borderl ine finding s, low risk, bilater al
MERHAR,ALNAA H B 12/30 [facility] OFFICE O/P EST MOD 30 MIN [id number] Diagnos is: ICD-10- CM W06.XXX A Fall from bed, initial encount er
LUBALou MARTINEZ 01/21 [place] [facility] Outpatient Encounter [id number] 01/24 [facility] Outpatient Encounter [id number] 01/27 [facility] [id number] 02/21 [facility] En[facility] [id number] 02/25 [facility] OFF/OP EST MAY X REQ PHY/QHP [id number] Diagnos is: ICD-10- CM L02.212 Cutaneo us abscess of back [any part, except buttock ]
LATISHA IRVERA 02/25 [place] [facility] Outpatient Encounter [id number] 02/25 [facility] OFFICE O/P EST MOD 30 MIN [id number] Diagnos is: ICD-10- CM L02.818 Cutaneo us abscess of other sites<b r/> ROWDY MCLAINA C 02/25 [facility] [place] [facility] Outpatient Encounter [id number] 03/02 [facility] [place] [facility] UNLISTED SPEC DERM SVC/PX [id number] Diagnos is: ICD-10- CM Z13.89 Encount er for screeni ng for other disorde r
SHOMUKUND,O LUBOWALE 03/10 [facility] Outpatient Encounter [id number] Diagnos is: ICD-10- CM L82.1 Other seborrh eic keratos is
ADRIANNE MELISSA 03/14 [facility] [place] [facility] Outpatient Encounter [id number] 03/14 [facility] [place] [facility] [place] [facility] Outpatient Encounter [id number] 03/14 [facility] [place] [facility] [place] [facility] Outpatient Encounter [id number] 03/18 [facility] [place] [facility] OFFICE O/P EST MOD 30 MIN [id number] Diagnos is: ICD-10- CM N13.9 Obstruc tive and reflux uropath y, unspeci fied
LUBA,A POLINARIO 03/21 [facility] [place] [facility] Outpatient Encounter [id number] 03/21 [facility] [place] [facility] [place] QNHP OL DIG ASSMT&MGMT 5-10 [id number] Diagnos is: ICD-10- CM Z51.81 Encount er for therape utic drug level monitor ing<br/ > [place] DAVIS [place] [facility] En[facility] [id number] [facility] En[facility] [id number] 04/07 [facility] [place] [facility] [place] [facility] Outpatient Encounter [id number] 1.04/19 [facility] [place] [facility] [place] OFF[place] O/P EST MOD 30 MIN [id number] Diagnos is: ICD-10- CM 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
LUBA,A POLIYASMINIO [place] [facility] [place] [facility] Outpatient Encounter [id number] 1.05/20 [facility] [place] [facility] J[facility] X REQ PHY/QHP [id number] Diagnos is: ICD-10- CM Z23 Encount er for immuniz ation<b r/> ROMA,L BERTIN H [place] [facility] En[facility] [id number] 1.06/01 [facility] En[facility] [id number] 06/01 [facility] En[facility] [id number] 06/03 [facility] Encounter [id number] 06/07 [facility] [place] En[facility] [id number] [facility] En[facility] [id number] 1.06/13 [facility] [place] Encounter [id number] 06/16 [facility] [place] [facility] OFFICE O/P EST MOD 30 MIN [id number] Diagnos is: ICD-10- CM Z01.810 Encount er for preproc edural cardiov ascular examina tion
Lou VERDUZCO 06/21 [facility] [place] Outpatient Encounter [id number] 06/23 [facility] En[facility] [id number] 06/24 [facility] [place] Encounter [id number] 06/29 [facility] [place] Encounter [id number] 06/30 [facility] [place] Encounter [id number] 07/06 [facility] [place] Encounter [id number] 07/07 [facility] [place] Encounter [id number] [facility] [place] En[facility] [id number] 07/18 [facility] Encounter [id number] [facility] [place] Encounter [id number] 07/20 [facility] [place] Encounter [id number] 07/26 [facility] [place] Encounter [id number] 07/29 [facility] [place] Encounter [id number] 08/04 [facility] [place] [facility] OFFICE O/P EST MOD 30 MIN [id number] 1BY. Diagnos is: ICD-10- CM N50.9 Disorde r of male genital organs, unspeci fied
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
LUBA,A POLINARIO 08/17 [place] [facility] [place] [facility] FIT SPECTACLES BIFOCAL [id number] 1. 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
ROY,DA VID A 08/24 [place] [facility] [place] Outpatient Encounter [id number] 1.08/25 [facility] [place] [facility] [place] [facility] Outpatient Encounter [id number] 08/29 [facility] [place] [facility] [place] OFFICE O/P EST LOW 20 MIN [id number] Diagnos is: ICD-10- CM C61 Maligna nt neoplas m of prostat e
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
LUBA,A POLINARIO 09/06 [facility] [facility] [place] [facility] Outpatient Encounter [id number] 09/07 [facility] [place] [place] Outpatient Encounter [id number] 09/09 [facility] [place] [facility] [place] [facility] Outpatient Encounter [id number] 09/15 [facility] [place] [place] Outpatient Encounter [id number] 09/15 [facility] [place] [place] [facility] Outpatient Encounter [id number] 09/15 [facility] [place] [facility] [place] [facility] Outpatient Encounter [id number] 09/15 [facility] [place] [facility] Social History Combined list of available smoking, tobacco, and other social history from Department of Defense and Veterans Affairs facilities. Social History Type Response Date Comment [facility] e Tobacco smoking status [facility] VA-TOBACCO NEVER USED 05/31/2024 [facility] History of tobacco use IN-TOBACCO QUIT 1 5 YRS OR MORE 06/23/2023 [facility] History of tobacco use IN-TOBACCO FORMER USER 05/01/2022 [facility] History of tobacco use IN-TOBACCO QUIT 1 5 YRS OR MORE 04/15/2021 [facility] History of tobacco use IN-TOBACCO QUIT 1 5 YRS OR MORE 10/20/2018 [facility] History of tobacco use QUIT TOBACCO USE > 7 YEARS AGO 07/03/2017 quit 25yrs ago [facility] History of tobacco use LIFETIME NON-TOBA DEMONSTRATOR KNITTING USER 02/13/2016 [facility] Plan of Care List of future care activities from [facility] facilities. Additional future care activities may be listed in the Assessment and Plan section. Date/Time Care Activity Care Activity Detail [facility] [place] 12/13/2024 AMBULATORY - MEDICINE AMBULATORY - MEDICI [facility] 01/02/2025 AMBULATORY - MEDICINE AMBULATORY - MEDICI [facility] [place] [facility] Advance Directives List of completed, amended, or rescinded Advance Directives on record at [facility] facilities. An actual copy of the Directive is not included. Date Advance Directive Provider Source 04/04/2024 [facility]
== END 2024-10-13 14:42 | disposition home or self-care (01) ==
PROVIDERS: PCP Internal Medicine; Visit Provider Urology
DX: C61 Malignant neoplasm of prostate (principal); C77.5 Secondary and unspecified malignant neoplasm of intrapelvic lymph nodes; T83.511A Infection and inflammatory reaction due to indwelling urethral catheter, initial encounter; N39.0 Urinary tract infection, site not specified; R33.9 Retention of urine, unspecified; Z43.5 Encounter for attention to cystostomy
CPT/HCPCS: 51705; 99214; G2211

== ENCOUNTER → 2024-10-13 13:51 | Outpatient (BNVA) | payer OTHER, SELFPAY | PROVIDERS: PCP Internal Medicine; Visit Provider Urology | DX: C61 Malignant neoplasm of prostate (principal); C77.5 Secondary and unspecified malignant neoplasm of intrapelvic lymph nodes; N39.0 Urinary tract infection, site not specified; R33.9 Retention of urine, unspecified; T83.511A Infection and inflammatory reaction due to indwelling urethral catheter, initial encounter | CPT/HCPCS: 51705; 96402; 99212; J9217 ==

== ENCOUNTER → 2024-10-18 14:30 | Outpatient (BNVA) | payer OTHER, SELFPAY | PROVIDERS: PCP Internal Medicine; Visit Provider Urology | DX: C61 Malignant neoplasm of prostate (principal); C77.5 Secondary and unspecified malignant neoplasm of intrapelvic lymph nodes; R33.9 Retention of urine, unspecified; Z46.6 Encounter for fitting and adjustment of urinary device; Z96.0 Presence of urogenital implants | CPT/HCPCS: 51700; 51702; 51798 ==

== ENCOUNTER 2024-11-08 09:03 | Outpatient (AMB) | payer OTHER, SELFPAY ==
--- NOTE | 2024-11-08 09:05 | A.OFFVIS_ITS ---
Intake Visit Reasons: Pet CT Intake Note: Patient presents today for follow up on: PET CT scan results Imaging Completed: 11/03/24 Urology Medication: bicalutamide, vitamin c, methenamine Antibiotic Allergy: none Blood Thinner: none Mobile Sales Consultant Required: No Accompanied by: Unknown Allergies aspirin [ASPIRIN] Allergy (Unknown, Verified 11/08/24 09:24) UNKNOWN No Known Drug Allergies Allergy (Unknown, Verified 11/08/24 09:24) U HPI Comments Details: Leo is a pleasant Italian-speaking male. He is a patient of Dr. Ramachandran. 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 [place] who is managing total androgen blockade Will refer to [facility] radiation oncology for MARVIN 177 assessment as has bony pain through left chest Also to assess possibility of XRT to pelvis for control of possible rectal invasion Labs - 09/29/24 39, 10/21/24 61, 10/27/24 37 Current therapy includes GnRH with bicalutamide for total androgen blockade Imaging - 10/15 [facility] PET shows extensive bony sclerotic metastatic disease and question of local invasion of rectum Multiple urologic conditions Primary issue is urinary retention Failed multiple voiding trials through [facility] Urology No documentation of medications to help with bladder emptying Multiple prior urinary tract infections Bladder retention with recurrent UTI Multiple prior episodes of urinary retention. One sufficiently serious 2 to cause bilateral hydronephrosis Re-initiate finasteride Initiate alpha-joslyn Start methenamine vitamin-C for suppression Discussed GreenLight laser prostate Prostate cancer grade group 3, high volume disease initial PSA 84 Initial diagnosis 04/2022 - Per PVU note 09/01 cores [place] 4 + 3, [address] scan negative for adenopathy - follow-up subsequent question of pelvic lymph node No bone scan performed - incomplete staging Underwent GnRH until end 2022 [facility] Medical History Seizures Chronic retention of urine Abnormal prostate specific antigen Dysuria Nodular prostate Gross hematuria Hypertension Surgical History History of bladder surgery History of prostate biopsy Social History Alcohol intake: never Patient Tobacco Use Status: Former Tobacco user Tobacco use type: Cigarette service: Yes Current occupational status: unemployed and retired Current occupation: right handed Review of Systems Const Denies chills and Denies fever(s) Card Reports no additional complaints and Denies syncope Resp Denies cough GI Denies abdominal pain and Denies heartburn Reports as per HPI and Denies change in libido Neuro Denies syncope Psych Denies change in libido Endo Denies change in libido Physical Exam Const General: cooperative, healthy appearing, comfortable and no acute distress Orientation/consciousness: patient oriented x3 HEENT Face and sinus: Yes normal facial exam Mouth: moist mucous membranes Neck Neck: Yes normal visual inspection, Yes full ROM and Yes trachea midline Chest Chest palpation & inspection: normal inspection of the chest Resp Effort & Inspection: normal respiratory effort, able to speak in complete sentences and no respiratory distress GI Inspection: Yes normal to inspection Back/Spine/Pelvis Cervical Spine: normal cervical lordosis Thoracic/Lumbar Spine: thoracic and lumbar spine normal to inspection Skin General skin exam: no rashes or lesions noted Neuro General: patient oriented x3, gait normal, tone normal and moves all extremities Extrem General: Yes normal to inspection and Yes capillary refill normal Assessment & Plan Assessment & Plan (1) Prostate cancer metastatic to bone: Code(s): C61 - Malignant neoplasm of prostate; C79.51 - Secondary malignant neoplasm of bone Category: Medical Plan Radiation oncology referral Plan procedure Orders: Referrals Radiation Oncology Referral C61 - Malignant neoplasm of prostate, C79.51 - Secondary malignant neoplasm of bone Patient Instructions: This note is constructed using voice recognition software. While every effort has been made to ensure accuracy melting supervisor errors may have been included. Imaging studies, laboratory and physical exam results were discussed and reviewed in detail. No major barriers to patient understanding were identified. An opportunity to ask questions regarding the treatment plan was provided. All questions were answered. The patient expressed understanding and agreement with the above treatment plan. The patient is aware they should contact our office by phone for worsening of their current condition or the appearance of new urologic symptoms. Compliance is encouraged with any medications and followup testing that is ordered. It is a privilege to participate in the urologic care of your patient. If you have any questions or concerns regarding treatment for the above conditions, or other urologic issues, please do not hesitate to contact me. The office telephone contact is [phone]. Sincerely, Dr Alexis Robertson MD, [facility] - Urology Compassionate Specialist Care for the Genitourinary System Coding Level of Care Code Est Pt Level 4 (26885) Complex EM visit Add On G2211 Diagnoses Prostate cancer metastatic to bone C61; C79.51
--- OUTSIDE RECORDS SUMMARY | 2024-11-08 09:35 | XMS_ITS | Encounter Summary ---
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 [place] [facility] Address [address] [place] [id number] Care Team Providers Care Bilingual Interpreter Name Role Phone ROWENA ROY Primary Care [...] to Policy Segal [facility] MEDICARE ADVANTAGE [place] INDIV IDUAL - [place] Sep 21, 2023 [id number] [phone] GENET DUGAN S [facility]IENT [facility] ([facility]) Sep 21, 2023 [id number] [phone] MARVIN DUGANI S PATIENT [place] MEDICAID [place] PLAN May 22, 2022 MEDICAI D [id number] GENET DUGAN S PATIENT MEDICARE ([facility]) MEDICARE (M) PART B May 22, 2022 PART B [id number] MARVIN DUGANI S PATIENT MEDICARE ([facility]) MEDICARE (M) PART A Feb 19, 2009 PART A [id number] DUGAN,GENET S PATIENT MEDICARE PART D (WNR) MEDICARE (M) PART D Jul 22, 2022 PART D [id number] GENET DUGAN PATIENT [facility] (WNR) MEDICARE ADVANTAGE MCR (WNR) Sep 21, 2022 [id number] GENET DUGAN PATIENT [facility] (WNR) MEDICARE ADVANTAGE MCR (WNR) Sep 21, 2022 [id number] [phone] GENET DUGAN PATIENT Selected Encounter This section includes the information on record at [place] for the Encounter. Date/Time Encounter Type Encounter Description Reason Pro vider Source Oct 17, 2024 11:18 AM Outpatient Encounter PRIMARY CARE/MEDICINE I[facility] Encounter [...] 2024 01:30 PM [facility] Jan 02, 2025 10:00 AM AM[place]UL[place]ORY [place]ICINE [place] [facility] [place] [facility] Active, Pending, [...] Date/Time Test Type Test Details Facility Name Oct 26, 2024 04:31 PM Consult Order COMMUNITY CARE-ONCOLOGY Cons Pest Control Operator[facility] Advance Directives: All historical and current Section [...] Encounter. Date/Time Encounter Note(s) Provider Source Oct 19, 2024 11:47 AM ADDENDUM: LOCAL TITLE: Addendum STANDARD TITLE: ADDENDUM DATE OF NOTE: OCT 19, 2024@11:47:04 ENTRY DATE: OCT 19, 2024@11:47:05 AUTHOR: ROWENA ROY EXP COSIGNER: URGENCY: STATUS: COMPLETED Percocet 5/325 ordered as a short-term trial. Discussed at length with home health care case manager who will contact the patient and advise him and his granddaughter of its availability. I discussed the case with pain management who was in agreement. /mariana/ ROWENA ROY NP NURSE PRACTITIONER Signed: 10/19/2024 11:48 Receipt Acknowledged By: 10/19/2024 12:25 /mariana/ SHANTAL LOPEZ REGISTERED NURSE ======== --- Original Document --- 10/17/24 NURSING NOTE: [place] walked into clinic to request pain medication. reported he attempted to ask urologist for prescription but was told by their staff that urologist is in surgery all day and to visit his evp chief exploration officer for medication. stated that he is in great pain from CA and indwelling catheter and polyneuropathy. RN observed walking with effort, wincing and mumbling in pain. stated pain was 8/10 and is unable to wait seated in the waiting area for long as he needs to lay down. stated he will not be able to drive back to clinic once he leaves d/t pain, fatigue and decreased energy. RN reviewed 's chart for previously prescribed meds and efficacy per . stated Capsaicin cream and gabapentin at last dosage was ineffective. [place] stated if he would like to restart Gabapentin for polyneuropathy if able but unsure what could help he pain r/t to CA and indwelling catheter pain. stated if he is prescribed any medication he will have his granddaughter pick it up at the window. PACT RN to forward message to provider to review and advise. /viky LOPEZ REGISTERED NURSE Signed: 10/17/2024 11:28 Receipt Acknowledged By: 10/19/2024 11:19 /mariana/ ROWENA ROY NP NURSE PRACTITIONER 10/19/2024 ADDENDUM STATUS: COMPLETED Telephone call to to relay message from provider. Provider to order 3 day supply of pain medication as bridge as is awaiting prescription from urologist. did not answer, voicemail message left to return call to clinic. /viky LOPEZ REGISTERED NURSE Signed: 10/19/2024 11:38 ROWENA ROY Oct 17, 2024 11:18 AM NURSING NOTE: LOCAL TITLE: NURSING NOTE STANDARD TITLE: NURSING NOTE DATE OF NOTE: OCT 17, 2024@11:18 ENTRY DATE: OCT 17, 2024@11:18:49 AUTHOR: SHANTAL LOPEZ EXP COSIGNER: URGENCY: STATUS: COMPLETED NURSING NOTE Has ADDENDA [place] walked into clinic to request pain medication. reported he attempted to ask urologist for prescription but was told by their staff that urologist is in surgery all day and to visit his evp chief exploration officer for medication. stated that he is in great pain from CA and indwelling catheter and polyneuropathy. RN observed walking with effort, wincing and mumbling in pain. stated pain was 8/10 and is unable to wait seated in the waiting area for long as he needs to lay down. stated he will not be able to drive back to clinic once he leaves d/t pain, fatigue and decreased energy. RN reviewed 's chart for previously prescribed meds and efficacy per . [place] stated Capsaicin cream and gabapentin at last dosage was ineffective. [place] stated if he would like to restart Gabapentin for polyneuropathy if able but unsure what could help he pain r/t to CA and indwelling catheter pain. stated if he is prescribed any medication he will have his granddaughter pick it up at the window. PACT RN to forward message to provider to review and advise. /viky LOPEZ REGISTERED NURSE Signed: 10/17/2024 11:28 Receipt Acknowledged By: 10/19/2024 11:19 /mariana/ ROWENA ROY NP NURSE PRACTITIONER 10/19/2024 ADDENDUM STATUS: COMPLETED Telephone call to to relay message from provider. Provider to order 3 day supply of pain medication as bridge as is awaiting prescription from urologist. [place] did not answer, voicemail message left to return call to clinic. /viky LOPEZ REGISTERED NURSE Signed: 10/19/2024 11:38 10/19/2024 ADDENDUM STATUS: COMPLETED Percocet 5/325 ordered as a short-term trial. Discussed at length with home health care case manager who will contact the patient and advise him and his granddaughter of its availability. I discussed the case with pain management who was in agreement. /viky ROY NP NURSE PRACTITIONER Signed: 10/19/2024 11:48 Receipt Acknowledged By: 10/19/2024 12:25 /viky LOPEZ REGISTERED NURSE 10/19/2024 ADDENDUM STATUS: COMPLETED Telephone call to to relay message from provider r/t pain medication ordered. [place], needs reinforcment education. [place] to come to clinic to picking machine operator medications at pharmacy window in the am on 10/20/24. PACT RN advised to let packer fuser know when he arrives so that we can discuss medication F2F d/t 's impaired hearing. verbalized understanding and agreement to plan. /viky LOPEZ REGISTERED NURSE Signed: 10/19/2024 16:27 SHANTAL LOPEZ
--- OUTSIDE RECORDS SUMMARY | 2024-11-08 09:36 | XMS_ITS | Clinical Summary ---
Author Organization [employer] Address [address] [facility] [address] [place] [address] Care Team Providers Care Shirt Turner Name Role Phone Elijah Johnson MD Primary Care Prov ider Allergies Active Allergy Reactions Criticality Noted Date Comments Aspirin Hives 08/24/2024 Medications No known medications Active Problems Problem Noted Date Diagnosed Date Encounter for medical examination to establish c are 08/26/2024 Assessment & Plan (08/26/2024 1:50 PM EST): Last pcp followed 1 month ago, he is followed at [place] Hospitalization - ER: [facility] 2 months ago due to hematuria s/p wright catheter Pmhx: HTN, prostate cancer Pshx: appendix 2000 All- Meds: lisinopril 20mg, [id number] Prostate cancer 08/26/2024 Assessment & Plan (08/26/2024 1:54 PM EST): Patient seen at [facility], he currently has a wright catether, wants second opinion, will refer to urology Primary hypertension 08/26/2024 Assessment & Plan (08/26/2024 1:57 PM EST): On lisinopril 20mg, continue low sodium diet, and exercise as tolerated, keep bp log, follow up in 1-2 months Encounters Date Type Department Care Team Description 10/11/2024 Telephone [facility] [address] [place] [address] Elijah Johnson MD 10/07/2024 Telephone [facility] [address] [place] [address] Elijah Johnson MD 10/04/2024 Telephone [facility] [address] [place] [address] Elijah Johnson MD No Show 09/02/2024 Travel 09/02/2024 Telephone [facility] [address] [place] [address] Elijah Johnson MD ER Follow-up 08/24/2024 9:45 AM EST Telemedicine [facility] [address] [place] [address] Elijah Johnson MD Encounter for medical examination to establish care (Primary Dx); Prostate cancer (CMS/HCC); Primary hypertension 08/24/2024 Travel 08/23/2024 Telephone [facility] [address] [place] [address] Emily Posada MA chart prep 08/11/2024 Telephone [facility] [address] [place] [address] Elijah Johnson MD new patient visit from Last 3 Months Family History Medical History Relation Name Comments Prostate cancer Father Diabetes Mother Relation Name Status Comments Father Mother Social History Tobacco Use Types Packs/Day Years Used Date Smoking Tobacco: Former Cigarettes 1 26 S tarted: 1974 Smokeless Tobacco: Never Tobacco Cessation:Counseling Given: Not Answered Alcohol Use Standard Drinks/Week Comments Never 0 (1 standard drink = 0.6 oz pur e alcohol) Sex and Gender Information Value Date Recorded Sex Assigned at Male 08/24/2024 8:15 AM EST Legal Sex Male 9:59 AM EST Gender Identity Male 08/24/2024 8:15 AM EST Sexual Orientation Straight 08/24/2024 8: 15 AM EST Plan of Treatment Health Maintenance Due Date Last Done Comments Depression Screening 1944 Lipid Panel 1944 SDOH Screening 1944 Alcohol/Substance Use Screening 1956 RSV Patients and Patients Aged 60 years or older (1 - 1-dose 75+ series) 2019 COVID-19 Vaccine ( season) 2024 09/18/2023, 05/14/2022, 08/31/2021, Additional history exists Tobacco Screening 08/26/2025 08/26/2024 DTaP/Tdap/Td Vaccines (3 - Td or Tdap) 07/07/2031 07/07/2021, 08/22/2020, 02/28/2011, Additional history exists Pneumococcal Vaccine: 50+ Years Completed 10/21/2018, 12/16/2012 Zoster Vaccines Completed 02/24/2022, 04/16/2021 Hepatitis A Vaccines Aged Out 03/21/2024, 09/18/20 23 No longer eligible based on patient's age to complete this topic Influenza Vaccine Completed 05/31/2024, , 10/31/2022, Additional history exists HIB Vaccines Aged Out No longer eligi ble based on patient's age to complete this topic HPV Vaccines Aged Out No longer eligi ble based on patient's age to complete this topic Hepatitis B Vaccines Aged Out No long er eligible based on patient's age to complete this topic IPV Vaccines Aged Out No longer eligi ble based on patient's age to complete this topic Meningococcal Vaccine Aged Out No sola perla eligible based on patient's age to complete this topic RSV under 20 months Aged Out No longe r eligible based on patient's age to complete this topic Rotavirus Vaccines Aged Out No longer eligible based on patient's age to complete this topic Procedures Procedure Name Priority Date/Time Associated Diagnosis Comments AMB REFERRAL TO UROLOGY Routine 08/08/2024 Prostate cancer ([facility]/HCC) from Last 3 Months Results * Referral to Urology (08/08/2024) Elijah Viera MD OUTPATIENT REFERRA L ORDERABLES Final Result from Last 3 Months Insurance [employer] PPO Care Teams Shirt Turner Relationship Specialty Start Date End Date Elijah Johnson MD [address] [place] [address] PCP - General Internal Medicine 08/30/24
--- OUTSIDE RECORDS SUMMARY | 2024-11-08 09:36 | XMS_ITS | Encounter Summary ---
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 Organization [facility] Address [address] [place] [address] Care Team Providers Care All Around Gear Machine Operator Name Role Phone ROWENA ROY [...] Name Patient's Relationship to Policy Segal [facility] ([facility]) MEDICARE ADVANTAGE [place] IN[place] IDUAL - [place] Sep 21, 2023 [id number] [phone] GENET DUGAN S PATIENT [facility] ([facility] MEDICARE ADVANTAGE [employer] ([facility]) Sep 21, 2023 [id number] [phone] MARVIN DUGANI S PATIENT HUSKY MEDICAID HUSKY PLAN May 22, 2022 MEDICAI D [id number] GENET DUGAN S PATIENT MEDICARE ([facility]) MEDICARE (M) PART B May 22, 2022 PART B [id number] MARVIN DUGANI S PATIENT MEDICARE ([facility]) MEDICARE (M) PART A Feb 19, 2009 PART A [id number] DUGAN,GENET S PATIENT MEDICARE PART D (WNR) MEDICARE (M) PART D Jul 22, 2022 PART D [id number] [phone] GENET DUGAN PATIENT [facility] (WNR) MEDICARE ADVANTAGE MCR (WNR) Sep 21, 2022 [id number] GENET DUGAN PATIENT [facility] (WNR) MEDICARE ADVANTAGE MCR (WNR) Sep 21, 2022 [id number] [phone] GENET DUGAN PATIENT Selected Encounter This section includes the information on record at [place] for the Encounter. 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 Date/Time Encounter Note(s) Provider Source Oct 27, 2024 12:45 PM ADMINISTRATIVE NOT E: LOCAL TITLE: ADMINISTRATIVE NOTE STANDARD TITLE: ADMINISTRATIVE NOTE DATE OF NOTE: OCT 27, 2024@12:45 ENTRY DATE: OCT 27, 2024@12:46 AUTHOR: SHANTAL LOPEZ EXP COSIGNER: URGENCY: STATUS: COMPLETED Office visit notes received from [facility] for visit on 09/07/24 via right fax folder. Notes sent to [facility] to scan into 's chart. Community care consult in place. Authorization 08/12/2024-03/06/2025 [facility]-----[address] [address] [phone] TAX ID #[id number] HALIMA IYER #[id number] SHEILA#[id number] NPI#---[id number] MEDICAL RECORDS FAX# [phone] /es/ SHANTAL LOPEZ REGISTERED NURSE Signed: 10/27/2024 12:49 SHANTAL LOPEZ
--- OUTSIDE RECORDS SUMMARY | 2024-11-08 09:36 | XMS_ITS ---
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 [place] Organization [facility] [place] Address [address] [place] [address] Care Team Providers Care Talent Engineer Name Role Phone ROWENA ROY Primary [...] INDIV IDUAL - MASS Sep 21, 2023 [id number] [phone] GENET DUGAN S PATIENT [facility] ([facility]) MEDICARE ADVANTAGE [facility] ([facility]) Sep 21, 2023 [id number] [phone] DUGAN,GENET S PATIENT HUSKY MEDICAID HUSKY PLAN May 22, 2022 MEDICAI D [id number] MARVIN DUGANI S PATIENT MEDICARE (WN) MEDICARE (M) PART B May 22, 2022 PART B [id number] [phone] DUGAN,GENET S PATIENT MEDICARE (WNR) MEDICARE (M) PART A Feb 19, 2009 PART A [id number] DUGAN,GENET S PATIENT MEDICARE PART D (WNR) MEDICARE (M) PART D Jul 22, 2022 PART D [id number] [id number] [phone] GENET DUGAN PATIENT [facility] (WNR) MEDICARE ADVANTAGE MCR (WNR) Sep 21, 2022 [id number] GENET DUGAN PATIENT [facility] (WNR) MEDICARE ADVANTAGE MCR (WNR) Sep 21, 2022 [id number] [phone] GENET DUGAN PATIENT Selected Encounter This section includes the information on record at [place] for the Encounter. Date/Time Encounter Type Encounter Description Reason Pro vider Source Oct 28, 2024 01:11 PM Outpatient Encounter COMMUNITY CARE CONSULT IHE Encounter Template Text not used by OR Plan of Treatment: Future Appointments (+ 6 [...] 02, 2025 10:00 AM AMBULATORY - MEDICINE [place] [facility] Active, Pending, [...] of theEncounter. The data comes from all [place] treatment facilities. Test Date/Time Test Type Test Details Facility Name Oct 26, 2024 04:31 PM Consult Order COMMUNITY CARE-ONCOLOGY Cons Setter Automatic Spinning Lathe's [facility] Advance Directives: All historical and current Section [...] Source Apr 04, 2024 ADVANCE DIRECTIVE [facility] Encounter Notes: All associated encounter notes This section contains the clinical notes associated to the Encounter. Date/Time Encounter Note(s) Provider Source Oct 28, 2024 01:11 PM NONVA NOTE: [facility] TITLE: [facility] SELF PRESENTING CARE COORD PLAN STANDARD TITLE: NONVA NOTE DATE OF NOTE: OCT 28, 2024@13:11 ENTRY DATE: OCT 28, 2024@13:11:16 AUTHOR: IKE BRODY EXP COSIGNER: URGENCY: STATUS: COMPLETED Emergency Notification Intake Date Presenting to the Facility: Aug Method of Contact: Notified from ECR worklist Notification ID: [id number] [facility] Referral #: [id number] [facility] [place] [facility] Address: City: [place] State: [place] Zip Code: Phone : Community Facility Point of Contact: Name: Vijay Phone: Chief complaint: URINARY RETENTION Primary Diagnosis: Disposition Discharged Date of discharge: Aug Discharge to Comment: ER Only /mariana/ IKE MCINTYRE Signed: 10/28/2024 13:12 IKE BRODY [place]
--- OUTSIDE RECORDS SUMMARY | 2024-11-08 09:36 | XMS_ITS ---
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 Organization [facility] [place] Address [address] [place] [address] Care Team Providers Care Forklift Supervisor Name Role Phone ROWENA ROY Primary [...] Patient's Relationship to Policy Segal [facility] [place] [place] - [place] Sep 21, 2023 [id number] [phone] GENET DUGAN S [facility]IENT [facility] MEDIC[facility] ADVANTAGE [facility] ([facility]) Sep 21, 2023 [id number] [phone] DUGAN,GENET S PATIENT [place] MEDICAID HUS[place] PLAN May 22, 2022 MEDICAI D [id number] MARVIN DUGANI S PATIENT MEDICARE (WN) MEDICARE (M) PART B May 22, 2022 PART B [id number] DUGAN,GENET S PATIENT MEDICARE (WNR) MEDICARE (M) PART A Feb 19, 2009 PART A [id number] [id number] [phone] DUGAN,GENET S PATIENT MEDICARE PART D (WNR) MEDICARE (M) PART D Jul 22, 2022 PART D [id number] [id number] [phone] GENET DUGAN PATIENT [facility] (WNR) MEDICARE ADVANTAGE MCR (WNR) Sep 21, 2022 [id number] [phone] GENET DUGAN PATIENT [facility] MCR (WNR) MEDICARE ADVANTAGE MCR (WNR) Sep 21, 2022 [id number] GENET DUGAN PATIENT Selected Encounter This section includes the information on record at [place] for the Encounter. Date/Time Encounter Type Encounter Description Reason Pro vider Source Oct 27, 2024 03:37 PM Outpatient Encounter COMMUNITY CARE CONSULT IHE [...] 2024 01:30 PM AMBULATORY - MEDICINE [facility] Jan 02, 2025 10:00 AM AMBULATORY - MEDICINE [place] [facility] Active, Pending, [...] 04:31 PM Consult Order COMMUNITY CARE-ONCOLOGY Cons Director Of Orthopedics's [facility] Advance Directives: All historical and current Section [...] Encounter Note(s) Provider Source Oct 27, 2024 03:37 PM [facility] SELF PRESENTING CARE COORD PLAN STANDARD TITLE: NONVA NOTE DATE OF NOTE: OCT 27, 2024@15:37 ENTRY DATE: OCT 27, 2024@15:37:56 AUTHOR: IKE BRODY EXP COSIGNER: URGENCY: STATUS: COMPLETED Emergency Notification Intake Date Presenting to the Facility: Aug Method of Contact: Notified from ECR worklist Notification ID: [id number] [facility] Referral #: [facility] Name: Hospital: [facility] Address: City: [place] State: [place] Zip Code: Phone : [facility] Facility Point of Contact: Name: Vijay Phone: Chief complaint: MALE PROBLEM Primary Diagnosis: Disposition Discharged Date of discharge: Aug Discharge to Comment: ER Only /es/ IKE MCINTYRE Signed: 10/27/2024 15:39 IKE BRODY [place]
--- OUTSIDE RECORDS SUMMARY | 2024-11-08 09:36 | XMS_ITS | Encounter Summary ---
Author Organization [employer] Address [address] [place] [address] 7 [place] [address] Care Team Providers Care Sourcing Manager Name Role Phone Elijah Johnson MD Primary Care Prov ider Reason for Visit * Reason Onset Date Comments new patient visit 08/11/2024 Encounter Details Date Type Department Care Team (Late st Contact Info) Description 08/11/2024 Telephone [facility] MEDIC[facility] [address] [place] [address] Elijah Johnson MD [address] [place], [place] [phone] new patient visit Social History Tobacco Use Types Packs/Day Years Used Date Smoking Tobacco: Never Assessed Sex and Gender Information Value Date Recorded Sex Assigned at Male 08/24/2024 8:15 AM EST Legal Sex Male 9:59 AM EST Gender Identity Male 08/24/2024 8:15 AM EST Sexual Orientation Straight 08/24/2024 8: 15 AM EST documented as of this encounter Miscellaneous Notes * Telephone Encounter - Steven Krishnan - 08/11/2024 10:11 AM EST TC placed to patient for scheduling of new patient visit. Agreed to 08/24/[address] Blackwood Medical Conditions: HTN [facility] Feels [facility] is not getting proper care and opted for pcp at [facility] . Apptmnt reminder and release form sent via mail . documented in this encounter Plan of Treatment Not on file documented as of this encounter Visit Diagnoses Not on filedocumented in this encounter Care Teams Sourcing Manager Relationship Specialty Start Date End Date Elijah Johnson MD [address] [place] [address] PCP - General Internal Medicine 08/30/24 documented as of this encounter
--- OUTSIDE RECORDS SUMMARY | 2024-11-08 09:36 | XMS_ITS | Clinical Summary ---
Author Organization 175 [facility] Address [address] [place] [address] Phone Care Team Providers Care Retail Product Demo Specialist Name Role Phone Erik Hill Primary Care Provider Allergies Active Allergy Reactions Criticality Noted Date Comments Aspirin Hives 08/24/2024 Medications aspirin 81 mg EC tablet Take 1 tablet (81 mg total) by mouth. 01/18/2018 Active bisacodyL (Dulcolax, bisacodyl,) 5 mg EC tablet Take 1 tablet (5 mg total) by mouth. 01/18/2018 Active lisinopriL (PRINIVIL,ZESTRI L) 20 mg tablet Take 1 tablet (20 mg total) by mouth. 01/18/2018 Active nabumetone (RELAFEN) 500 mg tablet Take 1 tablet (500 mg total) by mouth. 01/18/2018 Active Active Problems Problem Noted Date Diagnosed Date Hypertension 08/25/2018 Cancer Neuropathy Encounters Date Type Department Care Team Description 10/19/2024 3:37 AM EST - 10/19/2024 7:26 AM [facility] [address] [place] [phone] Malfunction of Mccurdy catheter, initial encounter ([facility]) (Primary Dx) Discharge Disposition: Home or Self Care 09/13/2024 1:07 AM EST - 09/13/2024 5:49 AM [facility] [address] [place] [phone] Urinary catheter complication, initial encounter ([facility]) (Primary Dx) Discharge Disposition: Home or Self Care 09/11/2024 8:16 AM EST - 09/11/2024 11:53 AM [facility] [address] [place] [phone] Ayan Reyna MD Urinary retention (Primary Dx); Malfunction of Mccurdy catheter, initial encounter ([facility]) Discharge Disposition: Home or Self Care 09/11/2024 1:29 AM EST - 09/11/2024 4:50 AM [facility] [address] [place] [phone] Jazmyne An MD Acute on chronic urinary retention (Primary Dx); Mccurdy catheter problem, subsequent encounter Discharge Disposition: Home or Self Care 09/10/2024 5:15 AM EST - 09/10/2024 8:18 AM [facility] [address] [place] [phone] Jazmyne An MD Mccurdy catheter problem, initial encounter ([facility]) (Primary Dx); Acute on chronic urinary retention Discharge Disposition: Home or Self Care 09/02/2024 12:06 PM EST - 09/02/2024 3:36 PM [facility] [address] [place] [phone] Myah Bah DO Urinary retention (Primary Dx); Urinary tract infection with hematuria, site unspecified Discharge Disposition: Home or Self Care from Last 3 Months Medical History Medical History Date Comments Hypertension 08/25/2018 DX:Hypertension Cancer ([facility]) Prostate cancer ([facility]) Neuropathy Social History Tobacco Use Types Packs/Day Years Used Date Smoking Tobacco: Never Smokeless Tobacco: Never Alcohol Use Standard Drinks/Week Comments Never 0 (1 standard drink = 0.6 oz pur e alcohol) Sex and Gender Information Value Date Recorded Sex Assigned at Male 09/02/2024 1:22 PM EST Legal Sex Male 2:28 AM EST Gender Identity Male 09/02/2024 1:22 PM EST Sexual Orientation Straight 09/02/2024 1: 22 PM EST Obstetrics History Last Filed Vital Signs Vital Sign Reading Time Taken Comments Blood Pressure 144/82 10/19/2024 6:40 AM EST Pulse 75 10/19/2024 6:40 AM EST Temperature 37.1 ??C (98.8 ??F) 10/19/2024 6:40 AM ES T Respiratory Rate 18 10/19/2024 6:41 AM EST Oxygen Saturation 97% 10/19/2024 6:40 AM EST Inhaled Oxygen Concentration - - Weight 77.7 kg (171 lb 4.8 oz) 10/19/2024 3:42 A M EST Height 177.8 cm (5' 10 ) 10/19/2024 3:42 AM EST Body Mass Index 24.58 10/19/2024 3:42 AM EST Plan of Treatment Health Maintenance Due Date Last Done Comments RSV Immunization Patients 60+ Years Old (1 - 1-dose 75+ series) 2019 Cholesterol Screening (Lipid Panel) 08/24/2022 Depression Screening 08/24/2022 Falls Risk Assessment 08/24/2022 Social Influencers of Health Screening 08/24/2022 COVID-19 Vaccine ( season) 2024 09/18/2023, 05/14/2022, 08/31/2021, Additional history exists Hypertension/CHF/CAD Annual BMP Blood Test 10/19/2025 10/19/2024, 09/11/2024, 09/02/2024 DTaP,Tdap,and Td Vaccines (6 - Td or Tdap) 07/07/2031 07/07/2021, 08/22/2020, [...] on patient's age to complete this topic MMR Vaccines Aged Out No longer eligi ble based on patient's age to complete this topic Meningococcal ACWY Vaccine Aged Out N o longer eligible based on patient's age to complete this topic Meningococcal B Vacine Aged Out No lo nger eligible based on patient's age to complete this topic RSV Immunization Patients Under 20 months Aged Out No longer eligible based on patient's age to complete this topic Varicella Vaccines Aged Out No longer eligible based on patient's age to complete this topic Procedures Procedure Name Priority Date/Time Associated Diagnosis Comments LAN URINE CULTURE TUBE STAT 10/19/2024 5:38 AM EST URINALYSIS WITH REFLEX MICROSCOPIC AND CULTURE STAT 10/19/2024 5:38 AM EST URINALYSIS WITH REFLEX MICROSCOPIC AND CULTURE STAT 10/19/2024 5:38 AM EST CULTURE URINE STAT 10/19/2024 5:38 AM EST CBC WITH AUTO DIFFERENTIAL STAT 10/19/2024 4:21 AM EST BASIC METABOLIC PANEL STAT 10/19/2024 4:21 AM EST CBC AND DIFFERENTIAL STAT 10/19/2024 4:21 AM EST URINALYSIS WITH REFLEX MICROSCOPIC STAT 09/13/2024 3:12 AM EST URINALYSIS WITH REFLEX MICROSCOPIC STAT 09/13/2024 3:12 AM EST CBC WITH AUTO DIFFERENTIAL STAT 09/11/2024 10:44 AM EST CBC AND DIFFERENTIAL STAT 09/11/2024 10:44 AM EST COMPREHENSIVE METABOLIC PANEL STAT 09/11/2024 10:44 AM EST LAN URINE CULTURE TUBE STAT 09/11/2024 10:42 AM EST URINALYSIS WITH REFLEX MICROSCOPIC AND CULTURE STAT 09/11/2024 10:42 AM EST URINALYSIS WITH REFLEX MICROSCOPIC AND CULTURE STAT 09/11/2024 10:42 AM EST CULTURE URINE STAT 09/11/2024 10:42 AM EST BASIC METABOLIC PANEL STAT 09/02/2024 12:44 PM EST LAN URINE CULTURE TUBE STAT 09/02/2024 12:44 PM EST URINALYSIS WITH REFLEX MICROSCOPIC AND CULTURE STAT 09/02/2024 12:44 PM EST URINALYSIS WITH REFLEX MICROSCOPIC AND CULTURE STAT 09/02/2024 12:44 PM EST CULTURE URINE STAT 09/02/2024 12:44 PM EST from Last 3 Months Results * (ABNORMAL) Urinalysis with reflex microscopic and culture (10/19/2024 5:38 AM EST) Only the most recent of3 resultswithin the time period is included. Specific Gamaliel Urine 1.020 1.003 - 1.030 LAB URINALYSIS - AUTOMATED METHOD 10/19/2024 6:50 AM [facility] pH, Urine 8.5(A) 5.0 - 8.0 pH LAB URINALYSIS - AUTOMATED METHOD 10/19/2024 6:50 AM [facility] Leukocytes, Urine Large(A) Negative LAB URINALYSIS - AUTOMATED METHOD 10/19/2024 6:50 AM [facility] Nitrite, Urine Negative Negative LAB URINALYSIS - AUTOMATED METHOD 10/19/2024 6:50 AM [facility] Protein, Urine 300(A) <=Trace mg/dL LAB URINALYSIS - AUTOMATED METHOD 10/19/2024 6:50 AM [facility] Glucose, Urine Negative Negative mg/dL LAB URINALYSIS - AUTOMATED METHOD 10/19/2024 6:50 AM [facility] Ketones, Urine Negative Negative mg/dL LAB URINALYSIS - AUTOMATED METHOD 10/19/2024 6:50 AM [facility] Urobilinogen, Urine 0.2 0.2 - 1.0 mg/dL LAB URINALYSIS - AUTOMATED METHOD 10/19/2024 6:50 AM [facility] Bilirubin, Urine Negative Negative LAB URINALYSIS - AUTOMATED METHOD 10/19/2024 6:50 AM [facility] Blood, Urine Large(A) Negative LAB URINALYSIS - AUTOMATED METHOD 10/19/2024 6:50 AM [facility] RBC, Urine 292.8(H) 0 - 4 /HPF LAB URINALYSIS - AUTOMATED METHOD 10/19/2024 6:50 AM [facility] WBC, Urine 9.2(H) 0 - 4 /HPF LAB URINALYSIS - AUTOMATED METHOD 10/19/2024 6:50 AM [facility] Squamous Epithelial, Urine >100(H) 0 - 60 /LPF LAB URINALYSIS - AUTOMATED METHOD 10/19/2024 6:50 AM [facility] Bacteria, Urine Few(A) Negative /HPF LAB URINALYSIS - AUTOMATED METHOD 10/19/2024 6:50 AM [facility] Hyaline Casts, Urine 63.9(H) 0 - 3 /LPF LAB URINALYSIS - AUTOMATED METHOD 10/19/2024 6:50 AM [facility] Urine Urine specimen obtained by clean catch procedure / Unknown Non-blood Collection / Unknown 10/19/2024 5:38 AM EST 10/19/2024 6:20 AM EST us Jef PATRICK LAB URINE ORDERABLES Final Resul t [facility] [address] [place] [address], [place] [phone] * Lan urine culture tube (10/19/2024 5:38 AM EST) Only the most recent of3 resultswithin the time period is included. Extra Tube Hold for add-ons. 10/19/2024 8:01 AM EST [facility] Comment:Auto resulted. Urine Urine specimen obtained by clean catch procedure / Unknown Non-blood Collection / Unknown 10/19/2024 5:38 AM EST 10/19/2024 6:20 AM EST us Jef PATRICK LAB URINE ORDERABLES Final Resul t Performing Organization Address City/[facility]/ZIP Co de Phone Number [facility] [address] [place] [address], [place] [phone] * Culture urine (10/19/2024 5:38 AM EST) Only the most recent of3 resultswithin the time period is included. Culture, Urine No growth 10/20/2024 8:31 AM EST [facility] Urine Urine specimen obtained by clean catch procedure / Unknown Non-blood Collection / Unknown 10/19/2024 5:38 AM EST 10/19/2024 6:50 AM EST us Jef PATRICK LAB MICROBIOLOGY - GENERAL ORDER MALATHI Final Result [facility] [address] [place] [address], [place] [phone] * (ABNORMAL) CBC auto differential (10/19/2024 4:21 AM EST) Only the most recent of2 resultswithin the time period is included. WBC 8.7 4.8 - 10.8 K/mcL LAB HEMETOLOGY METHOD 10/19/2024 4:28 AM EST [facility] RBC 4.10(L) 4.50 - 5.50 M/mcL LAB HEMETOLOGY METHOD 10/19/2024 4:28 AM [facility] Hemoglobin 10.8(L) 13.5 - 17.5 g/dL LAB HEMETOLOGY METHOD 10/19/2024 4:28 AM [facility] Hematocrit 33.6(L) 42.0 - 54.0 % LAB HEMETOLOGY METHOD 10/19/2024 4:28 AM [facility] MCV 81.8 79.0 - 98.0 FL LAB HEMETOLOGY METHOD 10/19/2024 4:28 AM [facility] MCH 26.3(L) 27.0 - 32.0 pcg LAB HEMETOLOGY METHOD 10/19/2024 4:28 AM [facility] MCHC 32.1 32.0 - 37.0 g/dL LAB HEMETOLOGY METHOD 10/19/2024 4:28 AM [facility] RDW 12.8 11.0 - 15.0 % LAB HEMETOLOGY METHOD 10/19/2024 4:28 AM [facility] Platelets 351 130 - 400 K/mcL LAB HEMETOLOGY METHOD 10/19/2024 4:28 AM [facility] MPV 9.2 7.0 - 11.0 FL LAB HEMETOLOGY METHOD 10/19/2024 4:28 AM [facility] NRBC 0.0 <1.0 % LAB HEMETOLOGY METHOD 10/19/2024 4:28 AM [facility] NRBC Absolute 0.00 <0.10 K/mcL LAB HEMETOLOGY METHOD 10/19/2024 4:28 AM [facility] Neutrophils Relative 82.1 % LAB HEMETOLOGY METHOD 10/19/2024 4:28 AM [facility] Lymphocytes Relative 10.1 % LAB HEMETOLOGY METHOD 10/19/2024 4:28 AM EST [facility] Monocytes Relative 5.7 % LAB HEMETOLOGY METHOD 10/19/2024 4:28 AM [facility] Eosinophils Relative 0.6 % LAB HEMETOLOGY METHOD 10/19/2024 4:28 AM [facility] Basophils Relative 0.7 % LAB HEMETOLOGY METHOD 10/19/2024 4:28 AM [facility] Immature Granulocytes Relative 0.8 % LAB HEMETOLOGY METHOD 10/19/2024 4:28 AM [facility] Neutrophils Absolute 7.14(H) 1.50 - 7.00 K/mcL LAB HEMETOLOGY METHOD 10/19/2024 4:28 AM [facility] Lymphocytes Absolute 0.88(L) 1.00 - 5.00 K/mcL LAB HEMETOLOGY METHOD 10/19/2024 4:28 AM [facility] Monocytes Absolute 0.50 0.20 - 1.00 K/mcL LAB HEMETOLOGY METHOD 10/19/2024 4:28 AM [facility] Eosinophils Absolute 0.05 0.00 - 0.50 K/mcL LAB HEMETOLOGY METHOD 10/19/2024 4:28 AM [facility] Basophils Absolute 0.06 0.00 - 0.20 K/mcL LAB HEMETOLOGY METHOD 10/19/2024 4:28 AM [facility] Immature Granulocytes Absolute 0.07(H) 0.00 - 0.03 K/mcL LAB HEMETOLOGY METHOD 10/19/2024 4:28 AM [facility] Blood Venous blood specimen / Unknown Venipuncture / Unknown 10/19/2024 4:21 AM EST 10/19/2024 4:25 AM EST us Jef PATRICK LAB BLOOD ORDERABLES Final Resul t [facility] [address] [place] [address], [place] [phone] * (ABNORMAL) Basic metabolic panel (10/19/2024 4:21 AM EST) Only the most recent of2 resultswithin the time period is included. Sodium 137 133 - 145 mmol/L LAB CHEMISTRY METHOD 10/19/2024 4:43 AM [facility] Potassium 4.1 3.5 - 5.5 mmol/L LAB CHEMISTRY METHOD 10/19/2024 4:43 AM [facility] Chloride 108 96 - 110 mmol/L LAB CHEMISTRY METHOD 10/19/2024 4:43 AM [facility] CO2 23 21 - 32 mmol/L LAB CHEMISTRY METHOD 10/19/2024 4:43 AM [facility] Anion Gap 6 3 - 11 LAB CHEMISTRY METHOD 10/19/2024 4:43 AM [facility] Glucose 117(H) 70 - 100 mg/dL LAB CHEMISTRY METHOD 10/19/2024 4:43 AM [facility] BUN 22 5 - 25 mg/dL LAB CHEMISTRY METHOD 10/19/2024 4:43 AM [facility] Creatinine 1.53(H) 0.70 - 1.30 mg/dL LAB CHEMISTRY METHOD 10/19/2024 4:43 AM [facility] eGFR 46(L) >=60 mL/min/1. 73m2 LAB CHEMISTRY METHOD 10/19/2024 4:43 AM [facility] Comment:Calculation based on the??Chronic Kidney Disease Epidemiology Collaboration (CKD-EPI) equation refit??without adjustment for race. BUN/Creatinine Ratio 14.4 LAB CHEMISTRY METHOD 10/19/2024 4:43 AM [facility] Calcium 9.0 8.5 - 10.5 mg/dL LAB CHEMISTRY METHOD 10/19/2024 4:43 AM [facility] Blood Venous blood specimen / Unknown Venipuncture / Unknown 10/19/2024 4:21 AM EST 10/19/2024 4:25 AM EST us Jef PATRICK LAB BLOOD ORDERABLES Final Resul t [facility] [address] [place] [address], [place] [phone] * (ABNORMAL) Urinalysis with reflex microscopic (09/13/2024 3:12 AM EST) Specific Gamaliel Urine 1.008 1.003 - 1.030 LAB URINALYSIS - AUTOMATED METHOD 09/13/2024 5:01 AM [facility] pH, Urine >=9.0(A) 5.0 - 8.0 pH LAB URINALYSIS - AUTOMATED METHOD 09/13/2024 5:01 AM [facility] Leukocytes, Urine Large(A) Negative LAB URINALYSIS - AUTOMATED METHOD 09/13/2024 5:01 AM [facility] Nitrite, Urine Negative Negative LAB URINALYSIS - AUTOMATED METHOD 09/13/2024 5:01 AM [facility] Protein, Urine 100(A) <=Trace mg/dL LAB URINALYSIS - AUTOMATED METHOD 09/13/2024 5:01 AM [facility] Glucose, Urine Negative Negative mg/dL LAB URINALYSIS - AUTOMATED METHOD 09/13/2024 5:01 AM [facility] Ketones, Urine Negative Negative mg/dL LAB URINALYSIS - AUTOMATED METHOD 09/13/2024 5:01 AM [facility] Urobilinogen, Urine 0.2 0.2 - 1.0 mg/dL LAB URINALYSIS - AUTOMATED METHOD 09/13/2024 5:01 AM [facility] Bilirubin, Urine Negative Negative LAB URINALYSIS - AUTOMATED METHOD 09/13/2024 5:01 AM [facility] Blood, Urine Large(A) Negative LAB URINALYSIS - AUTOMATED METHOD 09/13/2024 5:01 AM [facility] RBC, Urine 29.1(H) 0 - 4 /HPF LAB URINALYSIS - AUTOMATED METHOD 09/13/2024 5:01 AM [facility] WBC, Urine 4 0 - 4 /HPF LAB URINALYSIS - AUTOMATED METHOD 09/13/2024 5:01 AM [facility] Squamous Epithelial, Urine 44 0 - 60 /LPF LAB URINALYSIS - AUTOMATED METHOD 09/13/2024 5:01 AM [facility] Bacteria, Urine Negative Negative /HPF LAB URINALYSIS - AUTOMATED METHOD 09/13/2024 5:01 AM [facility] Hyaline Casts, Urine 2.1 0 - 3 /LPF LAB URINALYSIS - AUTOMATED METHOD 09/13/2024 5:01 AM [facility] Urine Urine specimen obtained by clean catch procedure / Unknown Non-blood Collection / Unknown 09/13/2024 3:12 AM EST 09/13/2024 3:17 AM EST us Jef PATRICK LAB URINE ORDERABLES Final Resul t [facility] [address] [place] [address], * (ABNORMAL) Comprehensive Metabolic Panel (CMP) (09/11/2024 10:44 AM EST) Sodium 142 133 - 145 mmol/L LAB CHEMISTRY METHOD 09/11/2024 11:22 AM [facility] Potassium 4.0 3.5 - 5.5 mmol/L LAB CHEMISTRY METHOD 09/11/2024 11:22 AM [facility] Chloride 107 96 - 110 mmol/L LAB CHEMISTRY METHOD 09/11/2024 11:22 AM [facility] CO2 28 21 - 32 mmol/L LAB CHEMISTRY METHOD 09/11/2024 11:22 AM [facility] Anion Gap 7 3 - 11 LAB CHEMISTRY METHOD 09/11/2024 11:22 AM [facility] Glucose 113(H) 70 - 100 mg/dL LAB CHEMISTRY METHOD 09/11/2024 11:22 AM [facility] BUN 15 5 - 25 mg/dL LAB CHEMISTRY METHOD 09/11/2024 11:22 AM [facility] Creatinine 0.93 0.70 - 1.30 mg/dL LAB CHEMISTRY METHOD 09/11/2024 11:22 AM [facility] eGFR 83 >=60 mL/min/1. 73m2 LAB CHEMISTRY METHOD 09/11/2024 11:22 AM [facility] Comment:Calculation based on the??Chronic Kidney Disease Epidemiology Collaboration (CKD-EPI) equation refit??without adjustment for race. BUN/Creatinine Ratio 16.1 LAB CHEMISTRY METHOD 09/11/2024 11:22 AM [facility] Calcium 9.2 8.5 - 10.5 mg/dL LAB CHEMISTRY METHOD 09/11/2024 11:22 AM [facility] AST (SGOT) 38 10 - 42 unit/L LAB CHEMISTRY METHOD 09/11/2024 11:22 AM [facility] ALT (SGPT) 12 10 - 60 unit/L LAB CHEMISTRY METHOD 09/11/2024 11:22 AM [facility] Alkaline Phosphatase 233(H) 42 - 121 unit/L LAB CHEMISTRY METHOD 09/11/2024 11:22 AM [facility] Total Protein 6.7 6.0 - 8.0 g/dL LAB CHEMISTRY METHOD 09/11/2024 11:22 AM [facility] Albumin 3.5 3.2 - 5.0 g/dL LAB CHEMISTRY METHOD 09/11/2024 11:22 AM EST [facility] Total Bilirubin 0.7 0.0 - 1.4 mg/dL LAB CHEMISTRY METHOD 09/11/2024 11:22 AM EST [facility] Blood Venous blood specimen / Unknown Venipuncture / Unknown 09/11/2024 10:44 AM EST 09/11/2024 10:54 AM EST Marie PATRICK LAB BLOOD ORDERABLES F inal Result [facility] [address] [place] [address], from Last 3 Months Insurance [facility] MEDICAID - [place] Care Teams Retail Product Demo Specialist Relationship Specialty Start Date End Date Erik Hill PA [address] [place] [phone] PCP - General Internal Medicine 10/19/24
--- OUTSIDE RECORDS SUMMARY | 2024-11-08 09:37 | XMS_ITS | Continuity of Care Document ---
Author Name [facility] Organization [facility] Care Team Providers Care Brake Holder Name Role Phone [facility] Unavailable Unavailable Problems Combined list of problems from Department of Defense and Veterans Affairs facilities. It does not include entries that were removed or entered in error. Problem Status Onset Date Problem Type Date of Resolution Comments Source Atypical chest pain Active Condition February 12, 2016 Entered By: ALICIA MACHADO Comment: [facility] [phone] PA OV 12-05-15May 2015 Entered By: ALICIA [...] February 11 Entered By: ALICIA MACHADO Comment: [facility] [phone] PA OV 12-05-15 [facility] Essential hypertension Active Condition February 12, 2016 Entered By: ALICIA MACHADO Comment: [facility] [phone] PA OV 12-05-15 [facility] Olecranon bursitis Active Condition [facility] Osteoarthritis (SNOMED CT 692768753) Active Condition Dec 07, 2017 Entered By: ALICIA MACHADO Comment: C/S worst at C6-C7 2017 Entered By: ALICIA MACHADO Comment: mod OA Interphalamgeal joint right thumb 09/06 [facility] Paraesthesia of lower extremity (SNOMED CT 341415356) Active Condition Apr 23, 2021 Entered By: [...] 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 [facility] Diagnosis: ICD-10-CM C61 Malignant neoplasm of prostate Active Diagnosis [facility] Diagnosis: ICD-10-CM Z46.0 Encounter for fit/adjst of spectacles and contact lenses Active Diagnosis [facility] Diagnosis: ICD-10-CM N50.9 Disorder of male genital organs, unspecified Active Diagnosis [facility] Diagnosis: ICD-10-CM Z01.810 Encounter for preprocedural cardiovascular examination Active Diagnosis [facility] Diagnosis: ICD-10-CM Z23 Encounter for immunization Active Diagnosis [facility] Diagnosis: ICD-10-CM Z51.81 Encounter for therapeutic drug level monitoring Active Diagnosis [facility] Diagnosis: ICD-10-CM 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, unspecified Active Diagnosis [facility] Diagnosis: ICD-10-CM L82.1 Other seborrheic keratosis Active Diagnosis [facility] Diagnosis: ICD-10-CM Z13.89 Encounter for screening for other disorder [facility]: ICD-10-CM L02.818 Cutaneous abscess of other sites Active Diagnosis [facility] Diagnosis: ICD-10-CM L02.212 Cutaneous abscess of back [any part, except buttock] Active Diagnosis [facility] Diagnosis: ICD-10-CM W06.XXXA Fall from bed, initial encounter Active Diagnosis [facility] Diagnosis: ICD-10-CM H40.013 Open angle with borderline findings, low risk, bilateral Active Diagnosis [facility] [place] [facility] Diagnosis: ICD-10-CM R97.20 Elevated prostate specific antigen [PSA] Active Diagnosis [facility] Diagnosis: ICD-10-CM I10 Essential (primary) hypertension Active Diagnosis [facility] Diagnosis: ICD-10-CM M54.59 Other low back pain Active Diagnosis [facility] [place] [facility] Diagnosis: ICD-10-CM 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 Diagnosis: ICD-10-CM R68.89 Other general symptoms and signs Active Diagnosis [facility] [place] [facility] Diagnosis: ICD-10-CM R20.2 Paresthesia of skin Active Diagnosis [facility] Medications Combined list of outpatient medications from Department of Defense and Veterans Affairs facilities.Medications provided include 1) outpatient medications from the last 15 months, and 2) patient-reported medications. Medication Details Route Status Patient Instructions Prescription Expires Prescription Number Last Dispense Date Ordering Provider Order Date Order Qty Source ACETAMINOPH EN 500MG TAB TAKE TWO TABLETS BY MOUTH THREE TIMES DAILY NEEDED FOR PAIN ORAL ACTIVE 10/21/2025 [id number] Mahnaz ROY [address] [facility] IELD ACETAMINOPH EN 500MG TAB TAKE TWO TABLETS BY MOUTH EVERY 6 HOURS NEEDED FOR PAIN ORAL 03/27/2024 [id number] 4 Zoe MCLAIN 2023 100 [place] ASCORBIC ACID 500MG TAB TAKE TWO TABLETS BY MOUTH ONCE DAILY FOR VITAMIN/ NUTRITIO N SUPPLEME NT ORAL ACTIVE 09/09/2025 [id number] 4 MICHAEL IYER MD 2023 200 [facility] CAPSAICIN 0.025% CREAM,TOP APPLY A MODERATE AMOUNT TOPICALL Y FOUR TIMES A DAY FOR LOCALIZE D PAIN (USE FOR AT LEAST 4 WEEKS FOR EFFECT) TOPICA L ACTIVE 12/22/2024 [id number] 5 MANSOOR VERDUZCO O 2023 60 [place] CARBOXYMETH YLCELLULOSE NA 0.5% SOLN,OPH INSTILL 1 DROP INTO EACH EYE FOUR TIMES DAILY NEEDED FOR DRY EYE OPHTHA LMIC DISCONT INUED BY PROVIDE R 12/23/2023 [id number] 4 MERHAR,NO AH B 2022 45 [facility] CARBOXYMETH YLCELLULOSE NA 1% GEL,OPH APPLY 1 DROP INTO EACH EYE FOUR TIMES DAILY NEEDED FOR DRY EYE OPHTHA LMIC ACTIVE 12/31/2024 [id number] 4 MERHAR,NO AH B 2023 15 [facility] CEFUROXIME AXETIL 500MG TAB TAKE ONE TABLET BY MOUTH TWICE DAILY ORAL 03/23/2024 [id number] 4 PINKY HERRERA 2023 14 [place] CEPHALEXIN 500MG CAP TAKE ONE CAPSULE BY MOUTH THREE TIMES A DAY FOR INFECTIO N ORAL 10/02/2024 [id number] 4 KENNETH BANUELOS 2023 21 [facility] CHOLECALCIF ELMA 10MCG (400UNIT) TAB TAKE ONE TABLET BY MOUTH ONCE DAILY FOR VITAMIN SUPPLEME NTATION ORAL ACTIVE 11/22/2024 [id number] 4 Mahnaz ROY 2023 90 [place] CIPROFLOXAC IN HCL 500MG TAB TAKE ONE TABLET BY MOUTH TWICE DAILY FOR 7 DAYS FOR INFECTIO N ORAL 09/24/2024 [id number] 4 TAWANA BRANDON SOOR 2023 14 [place] CYANOCOBALA MIN 250MCG TAB TAKE ONE TABLET BY MOUTH ONCE DAILY ORAL ACTIVE 08/25/2025 [id number] 4 Mahnaz ROY AVID A 2023 100 [place] CYCLOSPORIN E 0.05% (PF) EMULSION,OP H,0.4ML INSTILL 1 DROP INTO EACH EYE TWICE DAILY FOR DRY EYE THIS REPLACES XIIDRA OPHTHA LMIC ACTIVE 03/22/2025 [id number] 4 JEWEL,NO B 2023 60 [place] DOCUSATE NA 100MG CAP TAKE ONE CAPSULE BY MOUTH ONCE DAILY TO SOFTEN STOOL ORAL ACTIVE 01/25/2025 [id number] 5 Zoe WEST A 2024 100 [place] FINASTERIDE 5MG TAB TAKE ONE TABLET BY MOUTH ONCE DAILY FOR ENLARGED PROSTATE ORAL ACTIVE 04/01/2025 [id number] 4 MANSOOR VERDUZCO 2023 90 [place] FLUTICASONE PROPIONATE 50MCG/SPRAY SOLN,NASAL, 16GM INSTILL 1 SPRAY INTO EACH NOSTRIL TWICE DAILY NASAL ACTIVE BRIJESH SELF 2015 [place] KETOTIFEN 0.025% SOLN,OPH INSTILL 1 DROP INTO EACH EYE TWICE DAILY (IF YOU WEAR CONTACT LENSES, WAIT 10 MINUTES BEFORE INSERTIN G LENSES) OPHTHA LMIC ACTIVE 12/04/2024 [id number] 4 JEWEL,NO B 2023 15 [facility] KETOTIFEN 0.025% SOLN,OPH INSTILL 1 DROP INTO EACH EYE TWICE DAILY (IF YOU WEAR CONTACT LENSES, WAIT 10 MINUTES BEFORE INSERTIN G LENSES) OPHTHA LMIC DISCONT INUED 11/01/2023 [id number] 3 CHANTEL BRYANT HN 2022 15 [place] LEVOFLOXACI N 250MG TAB TAKE ONE TABLET BY MOUTH ONCE DAILY FOR 7 DAYS FOR INFECTIO N CAUSED BY BACTERIA ORAL 11/04/2024 [id number] 5 MICHAEL IYER MD 2024 7 [facility] LIFITEGRAST 5% SOLN,OPH,0. 2ML INSTILL 1 DROP INTO EACH EYE TWICE DAILY OPHTHA LMIC DISCONT INUED BY PROVIDE R 12/31/2024 [id number] 4 JEWEL,NO AH B 2023 60 [facility] LIFITEGRAST 5% SOLN,OPH,0. 2ML INSTILL 1 DROP INTO EACH EYE TWICE DAILY OPHTHA LMIC DISCONT INUED 11/01/2023 [id number] 3 CHANTEL BRYANT 2022 60 [place] LISINOPRIL 20MG TAB TAKE ONE TABLET BY MOUTH ONCE DAILY TO CONTROL BLOOD PRESSURE ORAL ACTIVE 12/04/2024 [id number] 4 MANSOOR VERDUZCO O 2023 90 [place] METHENAMINE HIPPURATE 1GM TAB TAKE ONE TABLET BY MOUTH ONCE DAILY ORAL ACTIVE 09/09/2025 [id number] 4 MICHAEL IYER MD 2023 90 [facility] NALOXONE HCL 4MG/SPRAY SOLN,SPRAY, NASAL INSTILL 1 SPRAY ONE NOSTRIL ONE TIME NEEDED FOR OPIOID OVERDOSE CALL 911 WITH ADMINIST RATION. REPEAT WITH SECOND DEVICE IF SYMPTOMS RETURN NASAL DISCONT INUED BY PROVIDE R 11/18/2024 [id number] 5 Mahnaz ROY A 2024 2 [place] OXYCODONE HCL 5MG/ACETAMI NOPHEN 325MG TAB TAKE 1 TABLET BY MOUTH THREE TIMES DAILY NEEDED FOR PAIN FOR PAIN DO NOT DRIVE OR OPERATE MACHINER Y WHILE TAKING THIS MEDICATI ON ORAL DISCONT INUED BY PROVIDE R 11/18/2024 [id number] 5 Mahnaz ROY A 2024 15 [place] SENNOSIDES 8.6MG TAB TAKE ONE TABLET BY MOUTH EVERY EVENING AT BEDTIME ORAL ACTIVE 01/25/2025 [id number] 5 Zoe WEST A 2024 100 [place] Allergies, Adverse Reactions, Alerts Combined list of allergies from Department of Defense and Veterans Affairs facilities. It does not include entries that were removed or entered in error. Substance Category Reaction Severity Reaction type Status Date Reported Comments Source HCTZ HYDROCHLOROT HIAZIDE Propensity to adverse reactions to drug (finding) Xerostomia active 8 [facility] Immunizations Combined list of available immunizations from the Department of Defense and Veterans Affairs facilities. Immunization Series Date Given Administered By Site Reaction Lot Number CVX Code Drug [employer] Diver Status Comments Source INFLUENZA, HIGH-DOSE, TRIVALENT, PF 2023 NIK BRANDON H LEFT DELTO ID [id number] 135 complet ed [place] HEP A, ADULT 2 2023 PAOLA FREDERICK LEFT DELTO ID [id number] 52 complet ed [place] COVID-19 (MODERNA), MRNA, LNP-S, PF, 50 MCG/0.5 ML (AGES 12+ YEARS) 2022 PAOLA FREDERICK LEFT DELTO ID [id number] 312 complet ed [place] HEP A, ADULT 1 2022 PAOLA FREDERICK RIGHT DELTO ID [id number] 52 complet ed [place] INFLUENZA, HIGH-DOSE, QUADRIVALENT 2022 PAOLA FREDERICK LEFT DELTO ID [id number] 197 complet ed [place] INFLUENZA, INJECTABLE, QUADRIVALENT, PRESERVATIVE FREE 2022 PAOLA FREDERICK DY LEFT DELTO ID [id number] 150 complet ed [place] COVID-19 (MODERNA), [...] DOSE 1 2020 207 complet ed MOD; [id number]; 1 [facility] [...] Aug 24, 2024 11:07 AM Reporting Lab: [facility] [address] [facility] [address] Performing Lab: [facility] [address] [address] [place] CBC AND DIFF (AUTO) ERYTHROCYT ES [#/VOLUME] IN BLOOD BY AUTOMATED COUNT 4.72 10*6/uL 4.23 - 5.66 08/24 Specimen Type: BLOOD No comment entered. Ordering Provider: DANISHA ROY A Report Released Date/Time: Aug 24, 2024 11:07 AM Reporting Lab: [facility] [address] [address] Performing Lab: [facility] [address] [address] [place] CBC AND DIFF (AUTO) HEMOGLOBIN [MASS/VOLU ME] IN BLOOD 12.8 g/dL 12.8 - 17 08/24 Specimen Type: BLOOD No comment entered. Ordering Provider: DANISHA ROY A Report Released Date/Time: Aug 24, 2024 11:07 AM Reporting Lab: [facility] [address] [address] Performing Lab: [facility] [address] [place] CBC AND DIFF (AUTO) HEMATOCRIT [VOLUME FRACTION] OF BLOOD BY AUTOMATED COUNT 38.8 39.2 - 50.4 08/24 L Specimen Type: BLOOD No comment entered. Ordering Provider: DANISHA ROY A Report Released Date/Time: Aug 24, 2024 11:07 AM Reporting Lab: [facility] [address] Performing Lab: [facility] [address] [address] [place] CBC AND DIFF (AUTO) MCV [ENTITIC VOLUME] BY AUTOMATED COUNT 82.2 fL 82 - 99 08/24 Specimen Type: BLOOD No comment entered. Ordering Provider: DANISHA ROY A Report Released Date/Time: Aug 24, 2024 11:07 AM Reporting Lab: [facility] [address] [address] Performing Lab: [facility] [address] [address] [place] CBC AND DIFF (AUTO) MCHC [MASS/VOLU ME] BY AUTOMATED COUNT 33.0 g/dL 30.8 - 35.1 08/24 Specimen Type: BLOOD No comment entered. Ordering Provider: DANISHA ROY A Report Released Date/Time: Aug 24, 2024 11:07 AM Reporting Lab: [facility] [address] [address] Performing Lab: [facility] [address] [address] [place] CBC AND DIFF (AUTO) PLATELETS [#/VOLUME] IN BLOOD BY AUTOMATED COUNT 312 10*3/uL 140 - 360 08/24 Specimen Type: BLOOD No comment entered. Ordering Provider: DANISHA ROY A Report Released Date/Time: Aug 24, 2024 11:07 AM Reporting Lab: [facility] [address] [address] Performing Lab: [facility] [address] [address] [place] CBC AND DIFF (AUTO) ERYTHROCYT E DISTRIBUTI ON WIDTH [RATIO] BY AUTOMATED COUNT 12.3 12.0 - 16.0 08/24 Specimen Type: BLOOD No comment entered. Ordering Provider: DANISHA ROY A Report Released Date/Time: Aug 24, 2024 11:07 AM Reporting Lab: [facility] [address] [address] Performing Lab: [facility] [address] [address] [place] CBC AND DIFF (AUTO) MONOCYTES [#/VOLUME] IN BLOOD BY AUTOMATED COUNT 0.39 10*3/uL 0.30 - 1.10 08/24 Specimen Type: BLOOD No comment entered. Ordering Provider: DANISHA ROY A Report Released Date/Time: Aug 24, 2024 11:07 AM Reporting Lab: [facility] [place] [facility] [address] [address] Performing Lab: [facility] [place] [address] [address] [place] CBC AND DIFF (AUTO) MCH [ENTITIC MASS] BY AUTOMATED COUNT 27.1 pg 26.2 - 32.6 08/24 Specimen Type: BLOOD No comment entered. Ordering Provider: DANISHA ROY A Report Released Date/Time: Aug 24, 2024 11:07 AM Reporting Lab: [facility] [place] [address] [address] Performing Lab: [facility] [place] [address] [address] [place] CBC AND DIFF (AUTO) NEUTROPHIL S/100 LEUKOCYTES IN BLOOD BY AUTOMATED COUNT 80.9 43.7 - 75.8 08/24 H Specimen Type: BLOOD No comment entered. Ordering Provider: DANISHA ROY A Report Released Date/Time: Aug 24, 2024 11:07 AM Reporting Lab: [facility] [place] [address] [address] Performing Lab: [facility] [place] [address] [address] [place] CBC AND DIFF (AUTO) LYMPHOCYTE S/100 LEUKOCYTES IN BLOOD BY AUTOMATED COUNT 12.2 14.0 - 42.3 08/24 L Specimen Type: BLOOD No comment entered. Ordering Provider: DANISHA ROY A Report Released Date/Time: Aug 24, 2024 11:07 AM Reporting Lab: [facility] [place] [address] [address] Performing Lab: [facility] [place] [address] [address] [place] CBC AND DIFF (AUTO) MONOCYTES/ 100 LEUKOCYTES IN BLOOD BY AUTOMATED COUNT 4.4 5.1 - 13.7 08/24 L Specimen Type: BLOOD No comment entered. Ordering Provider: DANISHA ROY A Report Released Date/Time: Aug 24, 2024 11:07 AM Reporting Lab: [facility] [address] [address] Performing Lab: [facility] [address] [address] [place] CBC AND DIFF (AUTO) EOSINOPHIL S/100 LEUKOCYTES IN BLOOD BY AUTOMATED COUNT 1.6 0.4 - 6.8 08/24 Specimen Type: BLOOD No comment entered. Ordering Provider: DANISHA ROY A Report Released Date/Time: Aug 24, 2024 11:07 AM Reporting Lab: [facility] [address] [address] Performing Lab: [facility] [address] [address] [place] CBC AND DIFF (AUTO) BASOPHILS/ 100 LEUKOCYTES IN BLOOD BY AUTOMATED COUNT 0.7 0.1 - 2.0 08/24 Specimen Type: BLOOD No comment entered. Ordering Provider: DANISHA ROY A Report Released Date/Time: Aug 24, 2024 11:07 AM Reporting Lab: [facility] [address] [address] Performing Lab: [facility] [address] [address] [place] CBC AND DIFF (AUTO) NEUTROPHIL S [#/VOLUME] IN BLOOD BY AUTOMATED COUNT 7.15 10*3/uL 2.20 - 7.60 08/24 Specimen Type: BLOOD No comment entered. Ordering Provider: DANISHA ROY A Report Released Date/Time: Aug 24, 2024 11:07 AM Reporting Lab: [facility] [address] [address] Performing Lab: [facility] [address] [address] [place] CBC AND DIFF (AUTO) LYMPHOCYTE S [#/VOLUME] IN BLOOD BY AUTOMATED COUNT 1.08 10*3/uL 1.00 - 3.20 08/24 Specimen Type: BLOOD No comment entered. Ordering Provider: DANISHA ROY A Report Released Date/Time: Aug 24, 2024 11:07 AM Reporting Lab: [facility] [place] [address] [address] Performing Lab: [facility] [address] [place] CBC AND DIFF (AUTO) EOSINOPHIL S [#/VOLUME] IN BLOOD BY AUTOMATED COUNT 0.14 10*3/uL 0.03 - 0.44 08/24 Specimen Type: BLOOD No comment entered. Ordering Provider: DANISHA ROY A Report Released Date/Time: Aug 24, 2024 11:07 AM Reporting Lab: [facility] [address] [address] Performing Lab: [facility] [address] [address] [place] CBC AND DIFF (AUTO) BASOPHILS [#/VOLUME] IN BLOOD BY AUTOMATED COUNT 0.06 10*3/uL 0.01 - 0.13 08/24 Specimen Type: BLOOD No comment entered. Ordering Provider: DANISHA ROY A Report Released Date/Time: Aug 24, 2024 11:07 AM Reporting Lab: [facility] [address] [address] Performing Lab: [facility] [address] [address] [place] CBC AND DIFF (AUTO) IMMATURE GRANULOCYT ES/100 LEUKOCYTES IN BLOOD BY AUTOMATED COUNT 0.2 0.0 - 0.7 08/24 Specimen Type: BLOOD No comment entered. Ordering Provider: DANISHA ROY A Report Released Date/Time: Aug 24, 2024 11:07 AM Reporting Lab: [facility] [address] [address] Performing Lab: [facility] [address] [place] CBC AND DIFF (AUTO) IMMATURE GRANULOCYT ES [#/VOLUME] IN BLOOD 0.02 10*3/uL 0.00 - 0.06 08/24 Specimen Type: BLOOD No comment entered. Ordering Provider: DANISHA ROY A Report Released Date/Time: Aug 24, 2024 11:07 AM Reporting Lab: [facility] [address] [address] Performing Lab: [facility] [address] [address] [place] CBC AND DIFF (AUTO) NRBC % 0.0 0.0 - 0.0 08/24 Specimen Type: BLOOD No comment entered. Ordering Provider: DANISHA ROY A Report Released Date/Time: Aug 24, 2024 11:07 AM Reporting Lab: [address] [address] Performing Lab: [address] [address] [place] CBC AND DIFF (AUTO) NRBC, ABS 0.00 10*3/uL 0.00 - 0.00 08/24 Specimen Type: BLOOD No comment entered. Ordering Provider: DANISHA ROY A Report Released Date/Time: Aug 24, 2024 11:07 AM Reporting Lab: [address] [address] Performing Lab: [address] [address] [place] MICROSCOP IC AUTOMATED , URINE LEUKOCYTES [#/AREA] IN URINE SEDIMENT BY MICROSCOPY HIGH POWER FIELD 0-5/[HP F] 0 - 5 08/24 Specimen Type: URINE Comment: If Glucose = >500 and Ketones are positive, please alert the Physician. Ordering Provider: ZAKI VERDUZCO Report Released Date/Time: Aug 09, 2024 09:43 AM Reporting Lab: [address] [address] Performing Lab: [address] [address] [facility] MICROSCOP IC AUTOMATED , URINE BACTERIA [#/AREA] IN URINE SEDIMENT BY MICROSCOPY HIGH POWER FIELD 1+/[HPF ] 08/24 Specimen Type: URINE Comment: If Glucose = >500 and Ketones are positive, please alert the Physician. Ordering Provider: ZAKI VERDUZCO Report Released Date/Time: Aug 09, 2024 09:43 AM Reporting Lab: [facility] [address] Performing Lab: [facility] [address] [address] [facility] MICROSCOP IC AUTOMATED , URINE TRIPLE PHOSPHATE CRYSTALS [PRESENCE] IN URINE SEDIMENT BY LIGHT MICROSCOPY MODERAT E/[HPF] 08/24 Specimen Type: URINE Comment: If Glucose = >500 and Ketones are positive, please alert the Physician. Ordering Provider: ZAKI VERDUZCO Report Released Date/Time: Aug 09, 2024 09:43 AM Reporting Lab: [facility] [address] [address] Performing Lab: [facility] [address] [address] [facility] MICROSCOP IC AUTOMATED , URINE ERYTHROCYT ES [#/AREA] IN URINE SEDIMENT BY MICROSCOPY HIGH POWER FIELD 6-10/[H PF] 0 - 3 08/24 H Specimen Type: URINE Comment: If Glucose = >500 and Ketones are positive, please alert the Physician. Ordering Provider: ZAKI VERDUZCO Report Released Date/Time: Aug 09, 2024 09:43 AM Reporting Lab: [facility] [address] Performing Lab: [address] [address] [facility] URINALYSI S COLOR OF URINE Light-B rown 08/24 Specimen Type: URINE Comment: If Glucose = >500 and Ketones are positive, please alert the Physician. Ordering Provider: ZAKI VERDUZCO Report Released Date/Time: Aug 09, 2024 09:43 AM Reporting Lab: [facility] [address] [address] Performing Lab: [facility] [address] [address] [facility] URINALYSI S APPEARANCE OF URINE Turbid 08/24 Specimen Type: URINE Comment: If Glucose = >500 and Ketones are positive, please alert the Physician. Ordering Provider: ZAKI VERDUZCO Report Released Date/Time: Aug 09, 2024 09:43 AM Reporting Lab: [facility] [place] [facility] [address] [address] Performing Lab: [facility] [place] [facility] [address] [address] [facility] URINALYSI S GLUCOSE [MASS/VOLU ME] IN URINE Normalm g/dL 08/24 Specimen Type: URINE Comment: If Glucose = >500 and Ketones are positive, please alert the Physician. Ordering Provider: ZAKI VERDUZCO Report Released Date/Time: Aug 09, 2024 09:43 AM Reporting Lab: [facility] [place] [facility] [address] [address] Performing Lab: [facility] [place] [facility] [address] [address] [facility] [facility] URINALYSI S KETONES [MASS/VOLU ME] IN URINE BY TEST STRIP NEGATIV Emg/dL 08/24 Specimen Type: URINE Comment: If Glucose = >500 and Ketones are positive, please alert the Physician. Ordering Provider: ZAKI VERDUZCO Report Released Date/Time: Aug 09, 2024 09:43 AM Reporting Lab: [facility] [place] [facility] [address] [id number] Performing Lab: [facility] [place] [facility] [address] [address] [facility] [place] [facility] URINALYSI S ERYTHROCYT ES [PRESENCE] IN URINE SEDIMENT BY LIGHT MICROSCOPY LARGEmg /dL 08/24 Specimen Type: URINE Comment: If Glucose = >500 and Ketones are positive, please alert the Physician. Ordering Provider: ZAKI VERDUZCO Report Released Date/Time: Aug 09, 2024 09:43 AM Reporting Lab: [facility] [address] [id number] Performing Lab: [facility]TR[facility] [address] [address] [facility] URINALYSI S PROTEIN [MASS/VOLU ME] IN URINE BY TEST STRIP 100 mg/dL 08/24 Specimen Type: URINE Comment: If Glucose = >500 and Ketones are positive, please alert the Physician. Ordering Provider: ZAKI VERDUZCO Report Released Date/Time: Aug 09, 2024 09:43 AM Reporting Lab: [facility]ITALTRN [facility] [facility] [address] [address] Performing Lab: [facility]ERR[facility] HOSPITALTRN [facility] [address] [address] [facility]N [facility]ITALUSE [facility] URINALYSI S NITRITE [PRESENCE] IN URINE NEGATIV Emg/dL 08/24 Specimen Type: URINE Comment: If Glucose = >500 and Ketones are positive, please alert the Physician. Ordering Provider: ZAKI VERDUZCO Report Released Date/Time: Aug 09, 2024 09:43 AM Reporting Lab: [facility] HOSPITALTRN [place] [facility] [address] [address] Performing Lab: [facility] HOSPITALTRN [facility]PITALUSETS [facility] [address] [address] [facility]ENTERCHUSE [facility] URINALYSI S BILIRUBIN. TOTAL [PRESENCE] IN URINE NEGATIV Emg/dL 08/24 Specimen Type: URINE Comment: If Glucose = >500 and Ketones are positive, please alert the Physician. Ordering Provider: ZAKI VERDUZCO Report Released Date/Time: Aug 09, 2024 09:43 AM Reporting Lab: [facility] [place] [facility] [address] [address] Performing Lab: [facility] [place] [facility] [address] [address] [facility] [place] [facility] URINALYSI S SPECIFIC GRAVITY OF URINE BY REFRACTOME TRY 1.007 1.016 - 1.022 08/24 L Specimen Type: URINE Comment: If Glucose = >500 and Ketones are positive, please alert the Physician. Ordering Provider: ZAKI VERDUZCO Report Released Date/Time: Aug 09, 2024 09:43 AM Reporting Lab: [facility] [place] [facility] [address] [address] Performing Lab: [facility] [place] [address] [address] [facility] [place] [facility] URINALYSI S PH OF URINE BY TEST STRIP 8.5 5.0 - 9.0 08/24 Specimen Type: URINE Comment: If Glucose = >500 and Ketones are positive, please alert the Physician. Ordering Provider: AZKI VERDUZCO Report Released Date/Time: Aug 09, 2024 09:43 AM Reporting Lab: [facility] [place] [facility] [address] [address] Performing Lab: [facility] [place] [address] [address] [facility] [place] [facility] URINALYSI S UROBILINOG EN [MASS/VOLU ME] IN URINE BY TEST STRIP Normalm g/dL <2.0 - 2.0 08/24 Specimen Type: URINE Comment: If Glucose = >500 and Ketones are positive, please alert the Physician. Ordering Provider: ZAKI VERDUZCO Report Released Date/Time: Aug 09, 2024 09:43 AM Reporting Lab: [facility] [place] [facility] [address] [address] Performing Lab: [facility] [place] [address] [address] [facility] [place] [facility] URINALYSI S LEUKOCYTE ESTERASE [PRESENCE] IN URINE BY TEST STRIP LARGE 08/24 Specimen Type: URINE Comment: If Glucose = >500 and Ketones are positive, please alert the Physician. Ordering Provider: ZAKI VERDUZCO Report Released Date/Time: Aug 09, 2024 09:43 AM Reporting Lab: [facility] [address] [address] Performing Lab: [facility] [address] [address] [facility] VITAMIN D 25-OH (Therapy monitor) 25-HYDROXY [...] additional information , please refer to [email or web address] ation.[facility] .Fingooroo/faq/FA Q199 (This link is being provided for information al/ educational purposes only.) This test was developed and its analytical performance characteris tics have been determined by [employer] [place]. It has not been cleared or approved by the U.S. Food and Drug Administrat [place]. This assay has been validated pursuant to the CLIA regulations and is used for clinical purposes. This test was developed and its analytical performance characteris tics have been determined by [employer]. It has not been cleared or approved by the U.S. Food and Drug Administrat [place]. This assay has been validated pursuant to the CLIA regulations and is used for clinical purposes. Test Performed by [facility], [facility], [address] [place], [place] Dov Bahena M.D., Ph.D., Director of Laboratorie s , CLIA [id number] TEST PERFORMED AT: , Ordering Provider: ZAKI VERDUZCO Report Released Date/Time: Aug 08, 2024 10:54 AM Reporting Lab: [facility] [address] [address] Performing Lab: [facility] [address] [address] [facility] VITAMIN D 25-OH (Therapy monitor) 25-HYDROXY [...] additional information , please refer to http://educ ation.[facility] .Fingooroo/faq/FA Q199 (This link is being provided for information al/ educational purposes only.) This test was developed and its analytical performance characteris tics have been determined by [employer]. It has not been cleared or approved by the U.S. Food and Drug Administrat [place]. This assay has been validated pursuant to the CLIA regulations and is used for clinical purposes. This test was developed and its analytical performance characteris tics have been determined by [facility] [place], [place]. It has not been cleared or approved by the U.S. Food and Drug Administrat [place]. This assay has been validated pursuant to the CLIA regulations and is used for clinical purposes. Test Performed by [facility], [facility] [place], [address] [place], [place] Dov Bahena M.D., Ph.D., Director of Laboratorie s , CLIA [id number] TEST PERFORMED AT: , Ordering Provider: ZAKI VERDUZCO Report Released Date/Time: Aug 08, 2024 10:54 AM Reporting Lab: [facility] [address] [address] Performing Lab: [facility] [address] [address] [facility] VITAMIN D 25-OH (Therapy monitor) CALCIFEROL [...] additional information , please refer to [email or web address] ation.[facility] .com/faq/FA Q199 (This link is being provided for information al/ educational purposes only.) This test was developed and its analytical performance characteris tics have been determined by [employer]. It has not been cleared or approved by the U.S. Food and Drug Administrat ion. This assay has been validated pursuant to the CLIA regulations and is used for clinical purposes. This test was developed and its analytical performance characteris tics have been determined by [employer]. It has not been cleared or approved by the U.S. Food and Drug Administrat ion. This assay has been validated pursuant to the CLIA regulations and is used for clinical purposes. Test Performed by [facility], [facility] [place], [address] [place], [place] Dov Bahena M.D., Ph.D., Director of Laboratorie s , CLIA [id number] TEST PERFORMED AT: , Ordering Provider: ZAKI VERDUZCO Report Released Date/Time: Aug 08, 2024 10:54 AM Reporting Lab: [facility] [place] [facility] [address] [address] Performing Lab: [facility] [place] [facility] [address] [address] [facility] [place] [facility] FOLATE (WROX) FOLATE [MASS/VOLU ME] IN SERUM OR PLASMA 4.07 ng/mL 5.2 08/08 L Specimen Type: SERUM No comment entered. Ordering Provider: ZAKI VERDUZCO Report Released Date/Time: Aug 08, 2024 10:54 AM Reporting Lab: [facility] [place] [facility] [address] [address] Performing Lab: [facility] [place] [place] [facility] [address] [facility] [address] [facility] [place] [facility] MICROALBU MIN CREATININ E RATIO PANEL MICROALBUM IN/CREATIN INE [MASS RATIO] IN URINE 354.2 mg/g 0 - 29.9 08/08 H Specimen Type: URINE No comment entered. Ordering Provider: ZAKI VERDUZCO Report Released Date/Time: Aug 08, 2024 10:54 AM Reporting Lab: [facility] [place] [place] [facility] [address] [address] Performing Lab: [facility] [place] [place] [facility] [address] [address] [facility] [place] [facility] MICROALBU MIN CREATININ E RATIO PANEL MICROALBUM IN [MASS/VOLU ME] IN URINE 103.3 mg/dL 08/08 Specimen Type: URINE No comment entered. Ordering Provider: ZAKI VERDUZCO Report Released Date/Time: Aug 08, 2024 10:54 AM Reporting Lab: [facility] [place] [facility] [address] [address] Performing Lab: [facility] [place] [facility] [address] [address] [facility] [place] [facility] MICROALBU MIN CREATININ E RATIO PANEL CREATININE [MASS/VOLU ME] IN URINE 291.68 mg/dL 08/08 Specimen Type: URINE No comment entered. Ordering Provider: ZAKI VERDUZCO Report Released Date/Time: Aug 08, 2024 10:54 AM Reporting Lab: [facility] [place] [facility] [address] [address] Performing Lab: [facility] [place] [facility] [address] [address] [facility] [place] [facility] VITAMIN B12 COBALAMIN (VITAMIN B12) [MASS/VOLU ME] IN SERUM OR PLASMA 1849 pg/mL 200 - 900 08/08 H Specimen Type: SERUM No comment entered. Ordering Provider: ZAKI VERDUZCO Report Released Date/Time: Aug 08, 2024 10:54 AM Reporting Lab: [facility] [place] [facility] [address] [address] Performing Lab: [facility] [place] [place] [facility] [address] [address] [facility] [place] [facility] LIPID PANEL FASTING CHOLESTERO L [MASS/VOLU ME] IN SERUM OR PLASMA 178 mg/dL 08/08 Specimen Type: SERUM No comment entered. Ordering Provider: ZAKI VERDUZCO Report Released Date/Time: Aug 08, 2024 10:54 AM Reporting Lab: [facility] [place] [facility] [address] [address] Performing Lab: [facility] [place] [facility] [address] [address] [facility] [place] [facility] LIPID PANEL FASTING TRIGLYCERI DE [MASS/VOLU ME] IN SERUM OR PLASMA 97 mg/dL 0 - 150 08/08 Specimen Type: SERUM No comment entered. Ordering Provider: ZAKI VERDUZCO Report Released Date/Time: Aug 08, 2024 10:54 AM Reporting Lab: [facility] [place] [facility] [address] [address] Performing Lab: [facility] [place] [facility] [address] [address] [facility] [place] [facility] LIPID PANEL FASTING CHOLESTERO L IN LDL [MASS/VOLU ME] IN SERUM OR PLASMA BY CALCULATIO N 97 mg/dL 0 - 129 08/08 Specimen Type: SERUM No comment entered. Ordering Provider: ZAKI VERDUZCO Report Released Date/Time: Aug 08, 2024 10:54 AM Reporting Lab: [facility] [place] [facility] [address] [address] Performing Lab: [facility] [place] [facility] [address] [address] [facility] [place] [facility] LIPID PANEL FASTING CHOLESTERO L.TOTAL/CH OLESTEROL IN HDL [MASS RATIO] IN SERUM OR PLASMA 2.9 08/08 Specimen Type: SERUM No comment entered. Ordering Provider: ZAKI VERDUZCO Report Released Date/Time: Aug 08, 2024 10:54 AM Reporting Lab: [facility] [place] [facility] [address] [address] Performing Lab: [facility] [place] [facility] [address] [address] [facility] [place] [facility] LIPID PANEL FASTING CHOLESTERO L IN HDL [MASS/VOLU ME] IN SERUM OR PLASMA 62 mg/dL 40 - 60 08/08 H Specimen Type: SERUM No comment entered. Ordering Provider: ZAKI VERDUZCO Report Released Date/Time: Aug 08, 2024 10:54 AM Reporting Lab: [facility] [place] [facility] [address] [address] Performing Lab: [facility] [place] [facility] [address] [address] [facility] [place] [facility] BASIC METABOLIC PANEL (fasting) UREA NITROGEN [MASS/VOLU ME] IN SERUM OR PLASMA 22 mg/dL 7 - 25 08/08 Specimen Type: SERUM No comment entered. Ordering Provider: ZAKI VERDUZCO Report Released Date/Time: Aug 08, 2024 10:54 AM Reporting Lab: [facility] [place] [facility] [address] [address] Performing Lab: [facility] [place] [facility] [address] [address] [facility] [place] [facility] BASIC METABOLIC PANEL (fasting) GLUCOSE [MASS/VOLU ME] IN SERUM OR PLASMA 91 mg/dL 65 - 100 08/08 Specimen Type: SERUM No comment entered. Ordering Provider: ZAKI VERDUZCO Report Released Date/Time: Aug 08, 2024 10:54 AM Reporting Lab: [facility] [place] [facility] [address] [address] Performing Lab: [facility] [place] [facility] [address] [address] [facility] BASIC METABOLIC PANEL (fasting) SODIUM [MOLES/VOL UME] IN SERUM OR PLASMA 138 mmol/L 135 - 145 08/08 Specimen Type: SERUM No comment entered. Ordering Provider: ZAKI VERDUZCO Report Released Date/Time: Aug 08, 2024 10:54 AM Reporting Lab: [facility] [place] [facility] [address] [address] Performing Lab: [facility] [place] [facility] [address] [address] [facility] [place] [facility] BASIC METABOLIC PANEL (fasting) POTASSIUM [MOLES/VOL UME] IN SERUM OR PLASMA 4.8 mmol/L 3.5 - 5.0 08/08 Specimen Type: SERUM No comment entered. Ordering Provider: ZAKI VERDUZCO Report Released Date/Time: Aug 08, 2024 10:54 AM Reporting Lab: [facility] [place] [facility] [address] [address] Performing Lab: [facility] [place] [facility] [address] [address] [facility] [place] [facility] BASIC METABOLIC PANEL (fasting) CHLORIDE [MOLES/VOL UME] IN SERUM OR PLASMA 105 mmol/L 100 - 110 08/08 Specimen Type: SERUM No comment entered. Ordering Provider: ZAKI VERDUZCO Report Released Date/Time: Aug 08, 2024 10:54 AM Reporting Lab: [facility] [address] Performing Lab: [facility]ERR[facility]SON[facility]ITALUSE[address] [address] [facility] BASIC METABOLIC PANEL (fasting) CARBON DIOXIDE, TOTAL [MOLES/VOL UME] IN SERUM OR PLASMA 25 meq/L 20 - 30 08/08 Specimen Type: SERUM No comment entered. Ordering Provider: ZAKI VERDUZCO Report Released Date/Time: Aug 08, 2024 10:54 AM Reporting Lab: [facility] [address] [address] Performing Lab: [facility]ERRUN[facility]S HOSPITALTRN [facility]USE[address] [address] [facility]N [facility] BASIC METABOLIC PANEL (fasting) CREATININE [MASS/VOLU ME] IN SERUM OR PLASMA 0.99 mg/dL 0.50 - 1.40 08/08 Specimen Type: SERUM No comment entered. Ordering Provider: ZAKI VERDUZCO Report Released Date/Time: Aug 08, 2024 10:54 AM Reporting Lab: [facility] TRN [facility] [address] Performing Lab: [facility] TRN [facility] [address] [facility] BASIC METABOLIC PANEL (fasting) GLOMERULAR FILTRATION RATE/1.73 SQ M.PREDICTE D [VOLUME RATE/AREA] IN SERUM, PLASMA OR BLOOD BY CREATININE -BASED FORMULA (CKD-EPI 2020) 77 mL/min 60 08/08 Specimen Type: SERUM No comment entered. Ordering Provider: ZAKI VERDUZCO Report Released Date/Time: Aug 08, 2024 10:54 AM Reporting Lab: [facility] [place] [facility] [address] [facility] [address] Performing Lab: [facility] [place] [place] [facility] [address] [facility] [address] [facility] [place] [facility] HEMOGLOBI N A1C PANEL HEMOGLOBIN A1C/HEMOGL [...] Aug 08, 2024 10:54 AM Reporting Lab: [facility]N [facility] [address] Performing Lab: [facility]ERRUN[facility] W[facility]S HOSPITALTRN [address]SE[address] [address] [facility]ERR[facility] JACKSONVILLEN [facility]OSPITALUSE [facility] Vital Signs Combined list of inpatient and outpatient Vital Signs from Department of Defense and Veterans Affairs, ranging from 12 months to all on record, depending upon the facility. Vital Sign Value Date Comments Source SYSTOLIC BLOOD PRESSURE 154 08/24/20 24 12:28:43 PENDER DIASTOLIC BLOOD PRESSURE 78 024 12:28:43 PENDER PULSE OXIMETRY 97 08/24/2024 12:28:43 PENDER PAIN 0 08/24/2024 12:28:43 PENDER HEIGHT 70 08/24/2024 12:28:43 PENDER PULSE 68 08/24/2024 12:28:43 PENDER RESPIRATION 20 08/24/2024 12:28:43 PENDER SYSTOLIC BLOOD PRESSURE 155 08/09/20 24 09:58:25 [facility] DIASTOLIC BLOOD PRESSURE 78 024 09:58:25 [facility]TR[facility]EN [facility] PULSE OXIMETRY 97 08/09/2024 09:58:25 [facility] [place] [facility] WEIGHT 179.8 08/09/2024 09:58:25 [facility] [place] [facility] BMI 26 kg/m2 08/09/2024 09:58:25 [facility] [place] [facility] [...] 09:42:36 [facility] [place] [facility] BMI 30 kg/m2 06/21/2024 09:42:36 [facility] [place] [facility] [...] 10:09:05 [facility] [place] [facility] BMI 26 kg/m2 04/27/2024 10:09:05 [facility] [place] [facility] [...] 09:53:18 [facility] [place] [facility] BMI 27 kg/m2 03/21/2024 09:53:18 [facility] [place] [facility] [...] from Department of Veterans Affairs facilities going backup to the last 18 months, not all VA inpatient encounters are included; 2) Encounters from the Department of Defense facilities going backup to 280 months. Location Location Details Encounter Type Encounter Number Reason For Visit Attending Provider ADM Date DC Date Status Disposition Source [facility] En[facility] [id number] 05/08 [facility] [id number] 05/20 [facility] En[facility] [id number] ARSH CORBETT ON 05/20 [facility] En[facility] [id number] 05/22 [facility] En[facility] [id number] 05/28 [facility] [place] OFF/OP EST MAY X REQ PHY/QHP [id number] Diagnos is: ICD-10- CM R20.2 Paresth esia of skin Lou VERDUZCO 06/02 [place] [facility] En[facility] [id number] 06/03 [facility] En[facility] [id number] 06/04 [facility] En[facility] [id number] 06/04 [facility] OFF/OP EST MAY X REQ PHY/QHP [id number] Diagnos is: ICD-10- CM R68.89 Other general symptom s and signs BARRY,JOSE IC K 06/05 [facility] [id number] 06/05 [facility] En[facility] [id number] 06/08 [place] [facility] Outpatient Encounter [id number] 06/10 [facility] [place] [facility] OFFICE O/P EST MOD 30-39 MIN [id number] Diagnos is: ICD-10- CM Z00.01 Encount er for general adult medical exam w abnorma l finding s LUBA,A POLINARIO 06/23 [place] [facility] Outpatient Encounter [id number] 06/23 [facility] [place] [facility] SELF-HELP/ PEER SVC PER 15MIN [id number] Diagnos is: ICD-10- CM Z59.00 Homeles sness unspeci fied CAPELLA,CY NTHIA 06/25 [facility] OFFICE O/P EST LOW 20-29 MIN [id number] Diagnos is: ICD-10- CM D52.8 Other folate deficie ncy anemias LUBA,A POLINARIO 06/30 [facility] OFFICE O/P NEW MOD 45-59 MIN [id number] Diagnos is: ICD-10- CM C61 Maligna nt neoplas m of prostat e SANAZ-LE NNALEKSANDER GRECO NNE 07/03 [place] [facility] OFFICE O/P EST MOD 30-39 MIN [id number] Diagnos is: ICD-10- CM 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 LUBA,A POLINARIO 07[place] [facility] Outpatient Encounter [id number] 07/14 [facility] En[facility] [id number] 07/16 [facility] OFFICE O/P NEW MOD 45-59 MIN [id number] Diagnos is: ICD-10- CM M54.59 Other low back pain NICANOR MARIA RA 07/16 [facility] En[facility] [id number] 07/17 [facility] En[facility] [id number] 07/20 [facility] En[facility] [id number] 07/21 [facility] En[facility] [id number] 08/10 [facility] En[facility] [id number] 08/14 [facility] En[facility] [id number] 08/24 [facility] En[facility] [id number] 09/16 [facility] [place] OFF[facility] O/P EST LOW 20-29 MIN [id number] Diagnos is: ICD-10- CM I10 Essenti al (primar y) hyperte nsion LUBA,A POLINARIO 09/18 [place] [facility] En[facility] [id number] 10/06 [facility] [id number] 10/06 [facility] [id number] 10/06 [facility] [id number] 10/06 [facility] Outpatient Encounter [id number] Lou VERDUZCO 10/06 [facility] [place] [facility] [id number] 10/08 [facility] [id number] 10/14 [facility] [id number] 10/26 [facility] [id number] 12/03 [facility] En[facility] [id number] 12/03 [facility] [place] [facility] O/P EST MOD 30 MIN [id number] Diagnos is: ICD-10- CM R97.20 Elevate d prostat e specifi c antigen [PSA] Lou VERDUZCO 12/21 [place] [facility] COMPRE OPH EXAM EST PT 1/> [id number] Diagnos is: ICD-10- CM H40.013 Open angle with borderl ine finding s, low risk, bilater al MERHAR,ALANA H B 12/30 [facility] CMPTR OPHTH IMG OPTIC NERVE [id number] Diagnos is: ICD-10- CM H40.013 Open angle with borderl ine finding s, low risk, bilater al MERHAR,ALANA H B 12/30 [facility] OFF[facility] O/P EST MOD 30 MIN [id number] Diagnos is: ICD-10- CM W06.XXX A Fall from bed, initial encount er Lou VERDUZCO 01/21 [place] [facility] En[facility] [id number] 01/24 [facility] [id number] 01/27 [facility] En[facility] [id number] 02/21 [facility] En[facility] [id number] 02/25 [facility] LD OFF/OP EST MAY X REQ PHY/QHP [id number] Diagnos is: ICD-10- CM L02.212 [place]ane[place] us abscess of back [any part, except buttock ] LATISHA RIVERA 02/25 [place] [facility] Outpatient Encounter [id number] 02/25 [facility] OFFICE O/P EST MOD 30 MIN [id number] Diagnos is: ICD-10- CM L02.818 [place] us abscess of other sites ROWDY MCLAIN C 02/25 [facility] Outpatient Encounter [id number] 03/02 [facility] UNLISTED SPEC DERM SVC/PX [id number] Diagnos is: ICD-10- CM Z13.89 Encount er for screeni ng for other disorde r Sree POSADA 03/10 [facility] Outpatient Encounter [id number] Diagnos is: ICD-10- CM L82.1 Other seborrh eic keratos is ADRIANNE MELISSA 03/14 [facility] Outpatient Encounter [id number] 1.03/14 [facility] Outpatient Encounter [id number] 03/14 [facility] Outpatient Encounter [id number] 03/18 [facility] OFFICE O/P EST MOD 30 MIN [id number] Diagnos is: ICD-10- CM N13.9 Obstruc tive and reflux uropath y, unspeci fied LUBA,A POLINARIO 03/21 [facility] Outpatient Encounter [id number] 03/21 [facility] LD QNHP OL DIG ASSMT&MGMT 5-10 [id number] Diagnos is: ICD-10- CM Z51.81 Encount er for therape utic drug level monitor CHAY Higginbotham [place] [facility] Outpatient Encounter [id number]/04 [facility] Outpatient Encounter [id number] 04/07 [facility] Outpatient Encounter [id number] 1.04/19 [facility] OFFICE O/P EST MOD 30 MIN [id number] Diagnos is: ICD-10- CM 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 LUBA,A POLINARIO [place] [facility] Outpatient Encounter [id number] 1.05/20 [facility] LD OFF/OP EST JANUARY X REQ PHY/QHP [id number] Diagnos is: ICD-10- CM Z23 Encount er for immuniz ation ROMA,L BERTIN H [place] [facility] Outpatient Encounter [id number] 06/01 [facility] En[facility] [id number] 06/01 [facility] Encounter [id number] 06/03 [facility] En[facility] [id number] 06/07 [facility] En[facility] [id number] 06/07 [facility] En[facility] [id number] 06/13 [facility] En[facility] [id number] 06/16 [facility] OFFICE O/P EST MOD 30 MIN [id number] Diagnos is: ICD-10- CM Z01.810 Encount er for preproc edural cardiov ascular examina tion LUBA,A DOROTEO 06/21 [facility] [place] [facility] En[facility] [id number] 06/23 [facility] En[facility] [id number] 06/24 [facility] Encounter [id number] 06/29 [facility] Encounter [id number] 06/30 [facility] Encounter [id number] 07/06 [facility] En[facility] [id number] 07/07 [facility] Encounter [id number]/07 [facility] Encounter [id number] 07/18 [facility] Encounter [id number] 07/19 [facility] Encounter [id number] 07/20 [facility] Encounter [id number] 07/26 [facility] [id number] 07/29 [facility] Encounter [id number] 08/04 [facility] OFFICE O/P EST MOD 30 MIN [id number] 1BY. 76 Diagnos is: ICD-10- CM N50.9 Disorde r of male genital organs, unspeci fied LUBA,A POLIYASMINIO 08/09 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 ROY,DA VID A 08/24 [place] [facility] Out[facility] Encounter [id number] 08/25 [facility] Out[facility] Encounter [id number] 08/29 [facility] OFFICE O/P EST LOW 20 MIN [id number] Diagnos is: ICD-10- CM C61 Maligna nt neoplas m of prostat e LUBA,A POLINARIO 08/31 [place] [facility] Out[facility] Encounter [id number] 09/05 [facility] LD OFF/OP EST JANUARY X REQ PHY/QHP [id number] Diagnos is: ICD-10- CM 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 LUBA,A POLINARIO 09/06 [place] [facility] Out[facility] Encounter [id number] 09/07 [facility] En[facility] [id number] 09/09 [facility] En[facility] [id number] 09/15 [facility]counter [id number] 09/15 [facility] Out[facility] Encounter [id number] 09/15 [facility] [id number] 09/15 [facility] En[facility] [id number] 09/29 [facility] En[facility] [id number] 10/05 [facility] Encounter [id number] 10/17 [facility] Encounter [id number] 10/20 [facility] Out[facility] Encounter [id number] 10/25 [facility] [id number] 10/26 [facility] En[facility] [id number] 10/27 [facility]counter [id number] 10/27 [facility] En[facility] [id number] 10/28 [facility] Social History Combined list of available smoking, tobacco, and other social history from Department of Defense and Veterans Affairs facilities. Social History Type Response Date Comment Sourc e Tobacco smoking status 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 Additional future care activities may be listed in the Assessment and Plan section. Date/Time Care Activity Care Activity Detail Facili ty 12/13/2024 AMBULATORY - MEDICINE AMBULATORY - MEDICI [facility] 01/02/2025 AMBULATORY - MEDICINE AM[facility]ULATORY - [facility]ICI [place] [facility] 10/26/2024 Consult Order COMM[facility]ITY [facility]-O NCOLOGY Cons Securities Compliance Examin[facility] Advance Directives List of completed, amended, or rescinded Advance Directives on record at Department of [facility] facilities. An actual copy of the Directive is not included. Date Advance Directive Provider Source 04/04/2024 ADVANCE DIRECTIVE [facility]
--- OUTSIDE RECORDS SUMMARY | 2024-11-08 09:37 | XMS_ITS | Encounter Summary ---
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 [place] Organization [facility] [place] [place] Address [address] [place] [id number] Care Team Providers Care Assistant Dean Of Students Name Role Phone ROWENA MCDERMOTT Primary Care Provider Un[facility]providence [facility] [...] to Policy Segal [facility] [place] MEDICARE ADVANTAGE [place] INDIV IDUAL - [place] Sep 21, 2023 [id number] [phone] GENET DUGAN S [facility] ([facility] [place] Sep 21, 2023 [id number] [phone] GENET DUGAN S PATIENT HUSKY MEDICAID HUSKY PLAN May 22, 2022 MEDICAI D [id number] GENET DUGAN S PATIENT MEDICARE ([facility] [place] MEDICARE () PART B May 22, 2022 PART B [id number] GENET DUGAN S PATIENT MEDICARE (WNR) MEDICARE (M) PART A Feb 19, 2009 PART A [id number] GENET DUGAN S PATIENT MEDICARE PART D (WNR) MEDICARE ([place]) PART D Jul 22, 2022 PART D [id number] MARVIN DUGANI S PATIENT [facility] (WNR) MEDICARE ADVANTAGE [facility] (WNR) Sep 21, 2022 [id number] MARVIN DUGANI S PATIENT [facility] (WNR) MEDICARE [facility] (WNR) Sep 21, 2022 [id number] [phone] GENET DUGAN S PATIENT Selected Encounter This section includes the information on record at [place] for the Encounter. 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 Date/Time Primary/Secondary Diagnosis Diagnosis Name Provider Source Aug 24, 2024 02:29 PM PRIMARY Carcinoma in situ of prostate ROWENA MCDERMOTT Aug 24, 2024 02:29 PM SECONDARY Bladder-neck obstruction ROWENA MCDERMOTT Plan of Treatment: Future Appointments (+ 6 [...] 01, 2024 11:00 AM AMBULATORY - NONE [place] [facility] [place] [facility] Sep 07, 2024 03:00 PM AMBULATORY - MEDICINE [place] [facility] [place] [facility] Dec 13, 2024 01:30 PM [facility] Jan 02, 2025 10:00 AM AMBULATORY - MEDICINE [place] [facility] [place] [facility] Lab Results: +/- 30 days [...] Range Comment Aug 24, 2024 11:28 AM [place] CBC AND DIFF (AUTO) Specimen Type: BLOOD No comment entered. Ordering Provider: ROWENA MCDERMOTT Report Released Date/Time: Aug 24, 2024 11:07 AM Reporting Lab: [facility] [address] [facility] [address] Performing Lab: [facility] [address] [facility] [address] WBC 8.84 10*3/uL 4.50-11.00 RBC 4.72 10*6/uL [...] 10*3/uL 0.00-0.00 Aug 24, 2024 11:28 AM [facility] MICROSCOPIC AUTOMATED, URINE Specimen Type: URINE Comment: If Glucose = >500 and Ketones are positive, please alert the Physician. Ordering Provider: MONICA VERDUZCO Report Released Date/Time: Aug 09, 2024 09:43 AM Reporting Lab: [facility] [address] [facility] [address] Performing Lab: [facility] [address] [facility] [address] UA WBC 0-5 /[HPF] 0-5 UA BACTERIA 1+ /[HPF] NoneObs UA TRIPLE PHOSPHATE CRYSTALS MODERATE /[HPF] Not Established UA RBC 6-10 /[HPF] H 0-3 Aug 24, 2024 11:28 AM [facility] URINALYSIS Specimen Type: URINE Comment: If Glucose = >500 and Ketones are positive, please alert the Physician. Ordering Provider: MONICA VERDUZCO Report Released Date/Time: Aug 09, 2024 09:43 AM Reporting Lab: [facility] [address] [facility] [address] Performing Lab: [address] [address] UA COLOR Light-Brown Yellow UA APPEARANCE Turbid Clear UA GLUCOSE Normal mg/dL Negative UA KETONES NEGATIVE mg/dL Negative UA BLOOD LARGE mg/dL Negative UA PROTEIN 100 mg/dL Negative UA NITRITE NEGATIVE mg/dL Negative UA BILIRUBIN NEGATIVE mg/dL Negative UA SPECIFIC GRAVITY 1.007 L 1.016-1.022 UA pH 8.5 5.0-9.0 UA UROBILINOGEN Normal mg/dL <2.0 UA LEUKOCYTE LARGE Negative Aug 08, 2024 10:59 AM [facility] [...] For additional information, please refer to http://educatio n.[employer].com/faq/FAQ 199 (This link is being provided for informational/ educational purposes only.) This test was developed and its analytical performance characteristics have been determined by [facility] [place], [place]. It has not been cleared or approved by the U.S. Food and Drug Administration. This assay has been validated pursuant to the CLIA regulations and is used for clinical purposes. This test was developed and its analytical performance characteristics have been determined by [facility] [place]. It has not been cleared or approved by the U.S. Food and Drug Administration. This assay has been validated pursuant to the CLIA regulations and is used for clinical purposes. Test Performed by [facility] [place], [facility], [address] [place] [address] Dov Bahena M.D., Ph.D., Director of Laboratories , CLIA [id number] TEST PERFORMED AT: , Ordering Provider: MONICA VERDUZCO Report Released Date/Time: Aug 08, 2024 10:54 AM Reporting Lab: [facility] [address] [facility] [address] Performing Lab: [facility] [address] [address] VITAMIN D, 25-OH, TOTAL 51 ng/mL 30-100 VITAMIN D, 25-OH, D3 51 ng/mL VITAMIN D, 25-OH, D2 <4 ng/mL Aug 08, 2024 10:59 AM [facility] FOLATE (WROX) Specimen Type: SERUM No comment entered. Ordering Provider: MONICA VERDUZCO Report Released Date/Time: Aug 08, 2024 10:54 AM Reporting Lab: [facility] [address] [facility] [address] Performing Lab: [facility] [address] [facility] [address] FOLATE (WROX) 4.07 ng/mL L >5.2 Aug 08, 2024 10:59 AM [facility] MICROALBUMIN CREATININE RATIO PANEL Specimen Type: URINE No comment entered. Ordering Provider: MONICA VERDUZCO Report Released Date/Time: Aug 08, 2024 10:54 AM Reporting [facility] [address] [facility] [address] Performing [facility]: [facility] [address] [facility] [address] MICROALBUMIN/ CREATININE RATIO 354.2 mg/g H 0-29.9 MICROALBUMIN, QUANTITATIVE 103.3 mg/dL RR UNAVAIL CREATININE URINE 291.68 mg/dL Aug 08, 2024 10:59 AM [facility] VITAMIN B12 Specimen Type: SERUM No comment entered. Ordering Provider: MONICA VERDUZCO Report Released Date/Time: Aug 08, 2024 10:54 AM Reporting Lab: [address] [address] Performing Lab: [facility] [address] [facility] [address] VITAMIN B12 1849 pg/mL H 200-900 Aug 08, 2024 10:59 AM [facility] LIPID PANEL FASTING Specimen Type: SERUM No comment entered. Ordering Provider: MNOICA VERDUZCO Report Released Date/Time: Aug 08, 2024 10:54 AM Reporting Lab: [address] [address] Performing Lab: [facility] [address] [facility] [address] CHOLESTEROL 178 mg/dL TRIGLYCERIDE 97 mg/dL 0-150 LDL calculated 97 mg/dL 0-129 CHOL/HDL 2.9 HDL CHOLESTEROL 62 mg/dL H 40-60 Aug 08, 2024 10:59 AM [facility] BASIC METABOLIC PANEL (fasting) Specimen Type: SERUM No comment entered. Ordering Provider: MONICA VERDUZCO Report Released Date/Time: Aug 08, 2024 10:54 AM Reporting Lab: [facility] [place] [place] [address] Performing Lab: [facility] [address] [facility] [address] UREA NITROGEN 22 mg/dL 7-25 GLUCOSE 91 [...] 10:54 AM Reporting Lab: [facility] [address] [facility] [address] Performing Lab: [address] [address] HEMOGLOBIN A1C 5.2 4.0-5.6 Aug 08, 2024 10:59 AM [facility] LIVER FUNCTION Specimen Type: SERUM No comment entered. Ordering Provider: MONICA VERDUZCO Report Released Date/Time: Aug 08, 2024 10:54 AM Reporting Lab: [facility] [address] [facility] [address] Performing Lab: [address] [address] PROTEIN,TOTAL 6.7 g/dL 6.0-8.3 ALBUMIN 3.4 g/dL L 3.5-5.0 ALKALINE PHOSPHATASE 151 U/L H 40-150 AST 17 U/L 5-34 ALT 8 U/L BILIRUBIN, TOTAL 0.5 mg/dL 0.2-1.2 Aug 08, 2024 10:59 AM [facility] PSA Specimen Type: SERUM No comment entered. Ordering Provider: MONICA VERDUZCO Report Released Date/Time: Aug 08, 2024 10:54 AM Reporting Lab: [facility] [address] [facility] [address] Performing Lab: [facility] [address] [address] PSA 30.59 ng/mL H 0.00-4.00 Aug 08, 2024 10:59 AM [facility] TSH Specimen Type: SERUM No comment entered. Ordering Provider: MONICA VERDUZCO Report Released Date/Time: Aug 08, 2024 10:54 AM Reporting Lab: [address] [address] Performing Lab: [address] [address] TSH 1.93 u[IU]/mL 0.35-5.00 Aug 08, 2024 10:59 AM [facility] CBC AND DIFF (AUTO) Specimen Type: BLOOD No comment entered. Ordering Provider: MONICA VERDUZCO Report Released Date/Time: Aug 08, 2024 10:54 AM Reporting Lab: [address] [address] Performing Lab: [address] [address] WBC 7.81 10*3/uL 4.50-11.00 RBC 4.88 10*6/uL [...] PM 68 154/78 20 97 0 70 [facility] Social History: Smoking Status (Most [...] 31, 2024 10:00 AM VA-TOBACCO NEVER USED [facility] Tobacco Use History This section includes a history of the smoking, or tobacco-related health factors, that were collected on or before the date of the Encounter. The data comes from the [place] facility where the Encounter took place. Date/Time Smoking Status/Tobacco Use Comment F acility Jun 23, 2023 09:00 AM VA-TOBACCO FORMER USER [facility] Jun 23, 2023 09:00 AM [place]-TOBACCO QUIT 15 YRS OR MORE [facility] May 01, 2022 01:30 PM VA-TOBACCO FORMER USER [place] May 01, 2022 01:30 PM VA-TOBACCO QUIT 15 YRS OR MORE [place] Apr 15, 2021 03:00 PM VA-TOBACCO FORMER USER [facility] Apr 15, 2021 03:00 PM VA-TOBACCO QUIT 15 YRS OR MORE [place] Oct 20, 2018 12:53 PM VA-TOBACCO FORMER USER [facility] Oct 20, 2018 12:53 PM VA-TOBACCO QUIT 15 YRS OR MORE [place] Jul 03, 2017 10:33 AM QUIT TOBACCO USE > 7 YEARS AGO quit 25yrs ago [facility] February 13, 2016 08:46 AM LIFETIME NON-TOBACCO USER [facility] Advance Directives: All historical and current Section [...] AM CHEST CT W/O CONT: JAKE DUGAN [id number] -1945 M Exm Date: SEP 01, 2024@10:54 Req Phys: LUBA,NOLAN Pat Loc: CWM/SO/PACT 9 (Req'g Loc) Img Loc: [facility]/CT Service: [place] [address] (Case [id number] COMPLETE) CT THORAX W/O CONT (CT Detailed) CPT:56721 Reason for Study: LDCT Clinical History: lung CA screen/surveillance as per protocol Report Status: Verified Date Reported: SEP 01, 2024 Date Verified: SEP 01, 2024 Ultrasound Manager E-Sig:/ES/STARR MCDANIEL JR Report: Study: Noncontrast CT [...] From the Fleischner Society 2017. Shashank Chao, Rwoena Delacruz, Mukund Luevano, et al. Mediastinum/hilum/lymph nodes: [...] Primary Interpreting Staff: STARR MCDANIEL JR, Radiologist (Ultrasound Manager) /STARR HERNANDEZ JR [facility] Aug 16, 2024 02:[address] ABDOMEN AND PELVIS WITH CONTRAST: DUGANJAKE SANCHEZ [id number] -1945 M Ex Date: AUG 16, 2024@14:04 Req Phys: NOLAN VERDUZCO Pat Loc: CWM/SO/PACT 9 (Req'g Loc) Img Loc: [facility]/CT Service: Unknown [place] [address] (Case [id number] COMPLETE) CT ABDOMEN AND PELVIS WITH CONTRA(CT Detailed) CPT:25691 Contrast Media : Non-ionic Iodinated Reason for Study: prostate CA Clinical History: Report Status: Verified Date Reported: AUG 16, 2024 Date Verified: AUG 16, 2024 Ultrasound Manager E-Sig: Report: CT ABDOMEN AND PELVIS WITH [...] tumor infiltration. READING PHYSICIAN: Kwabena Perez M.D. -[id number] 08/16/2024 20:18 [facility] National Teleradiology Program [phone] (For Medical Practitioner Use Only) Attention Patients / Veterans: If you have questions or concerns about these test results, please contact your ordering provider or primary care team. Primary Diagnostic Code: POSSIBLE MALIGNANCY Primary Interpreting Staff: RADIOLOGY,OUTSIDE SERVICE, Staff Physician / RADIOLOGY,OUTSIDE SERVICE [facility] Pathology Reports: +/- 30 days of [...] AM LR MICROBIOLOGY RE PORT: Reporting Lab: [facility] [CLIA# [id number]] [address] [place] [id number] Accession [UID]: [id number] [[id number]] Received: Aug 24, 2024@11:28 Collection sample: URINE CLEAN CATCH Collection date: Aug 24, 2024 11:28 Site/Specimen: URINE Provider: NOLAN VERDUZCO Comment on specimen: POSITIVE CULTURE RESULTS MAY NOT REPRESENT CLINICAL INFECTION. CONSIDER NEED FOR ANTIBIOTICS IN THE CONTEXT OF UTI SYMPTOMS. Test(s) ordered: URINE CULTURE(MWROX).......... completed: Aug 29, 2024 08:33 * BACTERIOLOGY FINAL REPORT => Aug 29, 2024 08:32 TECH CODE: [id number] CULTURE RESULTS: 1. KLEBSIELLA OXYTOCA/RAOULTELLA ORNITHINOLYTICA - [...] Performing Laboratory: Klebsiella Oxytoca/raoultella Ornithinolytica Performed By: [facility] [CLIA# [id number]] [address] [place] [address] Pseudomonas Aeruginosa Performed By: [facility] [CLIA# [id number]] [address] [place] [address] Bact Report Remark #1 Performed By: [facility] [CLIA# [id number]] [address] [place] [address] Bact Report Remark #2 Performed By: [facility] [CLIA# [id number]] [address] [place] [address] ENRIQUETA FLORES [facility] Encounter Notes: All associated encounter notes This section contains the clinical notes associated to the Encounter. Date/Time Encounter Note(s) Provider Source Oct 19, 2024 11:35 AM PAIN MEDICATION MG T NOTE: LOCAL TITLE: OPIOID/CONTROLLED SUBSTANCE NOTE STANDARD TITLE: PAIN MEDICATION MGT NOTE DATE OF NOTE: OCT 19, 2024@11:35 ENTRY DATE: OCT 19, 2024@11:35:44 AUTHOR: ROWENA MCDERMOTT COSIGNER: URGENCY: STATUS: COMPLETED OPIOID/CONTROLLED SUBSTANCE NOTE Initial Opioid Prescription Indication for therapy: Cancer pain Risk of Opioid therapy was assessed using: STORM database Chart Review Risk Assessment: - Using the STORM tool and your own clinical judgment, please select your risk assessment. Low risk Prescription Drug Monitoring Program (PDMP): A PDMP note is required at every new prescription for a controlled substance. PDMP HISTORY 1 YEAR Info Disclosed: Patient Demographics Purpose: Accessing Prescription Drug Monitoring Program (PDMP) databases for review of controlled substances prescribed outside of the [facility], and any additional information that may become available, as an important component of standard clinical care and in accordance with [facility] policy. 10/19/24 11:33 Rowena Mcdermott PDMP [employer] [place] Urine Drug Screen: A urine drug screen is required prior to reaching 90 days of opioid therapy and at least annually thereafter. No data available for: OPIATES SCREEN OXYCODONE SCREEN METHADONE SCREEN BENZODIAZEPINES SCREEN COCAINE SCREEN CANNABINOIDS SCREEN ALCOHOL, ETHYL URINE AMPHETAMINES SCREEN BUPRENORPHINE (URINE) Ethyl Glucuronide Screen Ethyl Sulfate Ethyl Glucuronide Conf Most Recent Naloxone Prescription Information: No prior Naloxone prescription was found. Education provided This section supports standardized OEND. Because patient has risk factors for overdose, a naloxone prescription is recommended. Naloxone prescribing should include critical education on opioid overdose prevention, recognition, and response. Education provided to: Patient's caregiver or other designee The following resources were shared: Used teach back to ensure information provided was clearly understood. Naloxone An order was placed for naloxone. Last visit with PCP or Ordering Provider: Aug Next Opioid Prescriber Visit: /viky MCDERMOTT NP NURSE PRACTITIONER Signed: 10/19/2024 11:43 ROWENA MCDERMOTT [facility] Oct 19, 2024 11:34 AM ACCOUNTING OF DISC LOSURES NOTE: LOCAL TITLE: [facility]ICAL [facility]ESS [facility]OSPITAL PRESCRIPTION DRUG MONITORING PROGRAM STANDARD TITLE: ACCOUNTING OF DISCLOSURES NOTE DATE OF NOTE: OCT 19, 2024@11:34:06 ENTRY DATE: OCT 19, 2024@11:34:06 AUTHOR: ROWENA MCDERMOTT EXP COSIGNER: URGENCY: STATUS: COMPLETED This PDMP query was submitted by Rowena Mcdermott. The clinical justification for this PDMP query is to review controlled substances prescribed outside of the [facility], and any additional information that may become available, as an important component of standard clinical care, and in accordance with [facility] policy. Patient information was shared with the PDMP [email or web address]. No prescription(s) for controlled substances outside the VA were found in the last 90 days. /es/ ROWENA MCDERMOTT NP NURSE PRACTITIONER Signed: 10/19/2024 11:34 ROWENA MCDERMOTT [facility] Aug 25, 2024 04:12 PM ADDENDUM: LOCAL TITLE: Addendum STANDARD TITLE: ADDENDUM DATE OF NOTE: AUG 25, 2024@16:12:20 ENTRY DATE: AUG 25, 2024@16:12:20 AUTHOR: ROWENA MCDERMOTT EXP COSIGNER: URGENCY: STATUS: COMPLETED The patient would like to switch to PACT 1. Please change [place]. AMSA: Please contact the patient and establish an appointment within the next 90 to 120 days. Thank you /mariana/ ROWENA MCDERMOTT NP NURSE PRACTITIONER Signed: 08/25/2024 16:13 Receipt Acknowledged By: 08/30/2024 11:09 /mariana/ ERIC BARTON [employer]VANCE BOAT OUTBOARD ENGINE MECHANIC 08/31/2024 12:25 /es/ KYLE TAFOYA PROPERTY AND SUPPLY OFFICER 08/25/2024 16:19 /es/ ISABEL FREDERICK LPN PATTERNMAKER ======== --- Original Document --- 08/24/24 NURSE PRACTITIONER OUTPATIENT NOTE: PRIMARY CARE VISIT JAKE DUGAN, is a 79 yo DECLINED TO ANSWER MALE who [facility] at the [place] [facility]. TYPE OF VISIT: Face to face [...] represent thrombus, or represent tumor infiltration. The Lawler stated he was not sure he actually [...] been seen several times in follow-up by [facility] urology who has recommended treatment for the bladder outlet obstruction as well as prostate cancer which he has refused up to now. Recent labs were also reviewed. All medications were reconciled during this visit. HEALTHCARE PROVIDERS: PCP: [place] Urology: Dr. 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 10/21/2018 LUBA,NOLAN Diverticular disease R69. 10/21/2018 LUBA,NOLAN Osteoarthritis (SNOMED CT 442427894 05/13/2018 JACKY CRUMP Generalized anxiety disorder F41.1 [...] or unilateral weakness. EXAMINATION General: Well-appearing older Lawler in no obvious distress. Mental Status: Alert [...] detailed explanation. Of note, there was an PATTERNMAKER (Jose) present throughout the visit to assist [...] a VA or non-VA provider. /mariana/ ROWENA MCDERMOTT NP NURSE PRACTITIONER Signed: 08/24/2024 14:28 08/30/2024 ADDENDUM STATUS: COMPLETED THIS HYDROCHLORIC AREA SUPERVISOR SPOKE w/ AND IS BOOKED FOR 12/13/24 LETTER SENT /mariana/ ERIC BARTON [employer] OUTBOARD ENGINE MECHANIC Signed: 08/30/2024 11:08 ROWENA MCDERMOTT [facility] Aug 24, 2024 02:03 PM PRIMARY CARE NURSE PRACTITIONER OUTPATIENT NOTE: LOCAL TITLE: NURSE PRACTITIONER OUTPATIENT NOTE STANDARD TITLE: PRIMARY CARE NURSE PRACTITIONER OUTPATIENT NOTE DATE OF NOTE: AUG 24, 2024@14:03 ENTRY DATE: AUG 24, 2024@14:03:57 AUTHOR: ROWENA MCDERMOTT EXP COSIGNER: URGENCY: STATUS: COMPLETED NURSE PRACTITIONER OUTPATIENT NOTE Has ADDENDA PRIMARY CARE VISIT JAKELIGIA DUGAN, is a 79 yo DECLINED TO ANSWER MALE who [place] [facility] the [place] [facility]. TYPE OF VISIT: Face to face 79-year-old Lawler with ZECHARIAH, epilepsy, HTN, MILTON and untreated prostate cancer diagnosed in 2021 presented to the outpatient clinic in follow-up for CT abdomen/pelvis. CT abd/pelvis from 08/16/2024 with findings suspicious for widespread pulmonary metastasis and new adenopathy in the abdomen and pelvis compatible with metastatic disease and new dilatation of the urethra which could be postprocedural, represent thrombus, or represent tumor infiltration. The Lawler stated he was not sure he actually [...] been seen several times in follow-up by [facility] urology who has recommended treatment for the bladder outlet obstruction as well as prostate cancer which he has refused up to now. Recent labs were also reviewed. All medications were reconciled during this visit. HEALTHCARE PROVIDERS: PCP: [facility] Urology: Dr. 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 10/21/2018 LUBANOLAN Diverticular disease R69. 10/21/2018 NOLAN VERDUZCO Osteoarthritis (SNOMED CT [id number] [facility]13/[facility] General[facility] anxiety disorder F41.1 04/11/2016 ELICIA HARRIS [...] or unilateral weakness. EXAMINATION General: Well-appearing older Lawler in no obvious distress. Mental Status: Alert [...] detailed explanation. Of note, there was an PATTERNMAKER (Jose) present throughout the visit to assist [...] of active outpatient prescriptions dispensed from this [place] (local) and dispensed from another [place] or [facility]D facility (remote) as well as [...] a VA or non-VA provider. /mariana/ ROWENA MCDERMOTT NP NURSE PRACTITIONER Signed: 08/24/2024 14:28 08/25/2024 ADDENDUM STATUS: COMPLETED The patient would like to switch to PACT 1. Please change [place]. AMSA: Please contact the patient and establish an appointment within the next 90 to 120 days. Thank you /viky MCDERMOTT NP NURSE PRACTITIONER Signed: 08/25/2024 16:13 Receipt Acknowledged By: 08/30/2024 11:09 /viky BARTON [employer]VANCE BOAT OUTBOARD ENGINE MECHANIC * AWAITING SIGNATURE * KYLE TAFOYA 08/25/2024 16:19 /viky FREDERICK LPN LPN 08/30/2024 ADDENDUM STATUS: COMPLETED THIS HYDROCHLORIC AREA SUPERVISOR SPOKE w/ AND IS BOOKED FOR 12/13/24 LETTER SENT /viky BARTON [employer]AT OUTBOARD ENGINE MECHANIC Signed: 08/30/2024 11:08 ROWENA MCDERMOTT Aug 24, 2024 12:30 PM PREVENTIVE MEDICIN E NURSING NOTE: LOCAL TITLE: CLINICAL REMINDERS/NURSING STANDARD TITLE: PREVENTIVE MEDICINE NURSING NOTE DATE OF NOTE: AUG 24, 2024@12:30 ENTRY DATE: AUG 24, 2024@12:30:11 AUTHOR: ISABEL FREDERICK EXP COSIGNER: URGENCY: STATUS: COMPLETED COVID-19 Immunization: Defer due to a PRECAUTION Reason: def /es/ ISABLE FREDERICK LPN LPN Signed: 08/24/2024 12:30 ISABEL FREDERICKFIELD
--- OUTSIDE RECORDS SUMMARY | 2024-11-08 09:37 | XMS_ITS | Encounter Summary ---
Author Organization [facility] Address [id number] [place] [phone] Care Team Providers Care Clinical Data Specialist Name Role Phone Erik Hill Primary Care Provider [phone] Reason for Visit * Reason Comments Difficulty Urinating HX PROSTATE CA HAS BEEN TRYING TO URINATE SINCE 2329 * Auth/Cert (Routine) Specialty Diagnoses / Procedures Referred By Contac t Referred To Contact Diagnoses Breakdown (mechanical) of indwelling urethral catheter, initial encounter Procedures [place] EMERGENCY DEPT VISIT [facility] [id number] [place] [phone] [facility] Emergency [address] [place] [address] Phone: tel: Referral ID Status Reason Start Date Expiration Date Visits Re quested Visits Authorized [id number] 1 1 Encounter Details Date Type Department Care Team (Late st Contact Info) Description 10/19/2024 3:37 AM EST - 10/19/2024 7:26 AM EST Emergency [facility] Emergency [address] [place] [address] Malfunction of Mccurdy catheter, initial encounter ([facility]) (Primary Dx) Discharge Disposition: Home or Self Care Social History Tobacco Use Types Packs/Day Years [...] Orientation Straight 09/02/2024 1: 22 PM EST documented as of this encounter Last Filed Vital Signs Vital Sign Reading [...] Mass Index 24.58 10/19/2024 3:42 AM EST documented in this encounter Functional Status * Are you deaf or do you have serious difficulty hearing? Answer Date of Assessment Author No 10/19/2024 5:27 AM Mohan Martinez RN * Are you blind or do you have serious difficulty seeing, even when wearing glasses? Answer Date of Assessment Author No 10/19/2024 5:27 AM Mohan Martinez RN * Do you have serious difficulty walking or climbing stairs? Answer Date of Assessment Author No 10/19/2024 5:27 AM Mohan Martinez RN * Do you have serious difficulty dressing or bathing? Answer Date of Assessment Author No 10/19/2024 5:27 AM Mohan Martinez RN * Because of a physical, mental, or emotional condition, do you have serious difficulty doing errandsalone such as visiting the doctor? Answer Date of Assessment Author No 10/19/2024 5:27 AM Mohan Martinez RN documented as of this encounter Mental Status * Because of a physical, mental, or emotional condition, do you have serious difficulty concentrating, remembering, or making decisions? (5 years old or older) Answer Entry Date Author No 10/19/2024 5:27 AM Mohan Martinez RN documented in this encounter Discharge Instructions * Discharge Instructions* CELINA Luciano - 10/19/2024 6:27 AM EST Thank you for choosing [facility]'s Emergency Department for your care today. It is not entirely clear what caused your recently replaced Mccurdy catheter to be obstructed today, however following replacement and irrigation there is no additional urinary retention or blood in your urine. at this time there is no indication for admission to the hospital or continued ED observation, and it is safe to discharge you home. Please stay well hydrated and get plenty of rest. Your urinalysis did not show an obvious urinary tract infection, however the culture results in 3 days may ultimately show infection. Please follow up with your primary care physician, urologist, andoncologist, for re-evaluation, discussion of culture results, additional management of your symptoms, and continued preventative care. If you do not have a primary care physician, please call the [facility] at [phone] toestablish a new primary care physician. Please return to the emergency department if you develop a sudden severe change in your symptoms, afever over 100.4,, severe or recurrent vomiting,, or a sudden increase in pain, or if you experience any other new or worsening symptoms or concerns. documented in this encounter Medications at Time of Discharge aspirin 81 mg EC tablet Take 1 tablet (81 mg total) by mouth. 01/18/2018 bisacodyL (Dulcolax, bisacodyl,) 5 mg EC tablet Take 1 tablet (5 mg total) by mouth. 01/18/2018 lisinopriL (PRINIVIL,ZESTRIL ) 20 mg tablet Take 1 tablet (20 mg total) by mouth. 01/18/2018 nabumetone (RELAFEN) 500 mg tablet Take 1 tablet (500 mg total) by mouth. 01/18/2018 documented as of this encounter Discharge Disposition Disposition Code Departure Means Destination Comment s Home or Self Care documented in this encounter Progress Notes * Andreina Rick, LEANN - 10/19/2024 3:28 AM EST Patient complains of inability to urinate since 11pm and bladder pain x2 weeks, worse over last 3 days. Hx of prostate CA and IUC replaced 10/18/2024 (initially placed approx 2 months ago). Pt recently finished course of abx x2 weeks. Denies N/V and fever/chills. I always have blood in my catheter.I saw the doctor yesterday and they ordered a renal US. Pt is unable to sit in triage due to pain. * CELINA Luciano - 10/19/2024 3:16 AM EST Emergency Medicine Note Patient Name: Leo Bird Initial Evaluation: 10/19/2024 : 1945 Patient's PCP: CELINA Cox Emergency Physician: CELINA Luciano History of Present Illness Chief Complaint: Chief Complaint Patient presents with Difficulty Urinating HX PROSTATE CA HAS BEEN TRYING TO URINATE SINCE 0 HPI: The patient is an 79-year-old male with history of prostate cancer, with mets, and hypertension presenting to the ED for evaluation of urinary retention. The patient has had a chronic Mccurdy catheter for months, reports recurrent hematuria over the past 2 months. The patient reports over the past few days he has been experiencing discomfort and went to his urologist to replace his Mccurdy catheter yesterday, patient reports that the medical records technician reported seeing blood clots when replacing the catheter. The patient reports Mccurdy catheter was replaced at 1 PM, when he first went home he had no discomfort and good urinary output into the leg bag. Patient reports he went to bed around 11:00, andthen woke in the middle of the night with suprapubic abdominal pain and no urinary output into the leg bag. Patient reports he waited 2 to 3 hours to monitor for urinary output but there was none andhe presents to the ED for evaluation. ROS: I have performed a ROS with the pertinent positives and negatives documented in the history ofpresent illness. Previous History Past Medical History: Diagnosis Date Cancer (CMS/HCC) Hypertension 08/25/2018 DX:Hypertension Neuropathy Prostate cancer (CMS/HCC) History reviewed. No pertinent surgical history. Social History Tobacco Use Smoking status: Never Smokeless tobacco: Never Substance Use Topics Alcohol use: Never Drug use: Never No family history on file. is allergic to aspirin. No current facility-administered medications on file prior to encounter. Current Outpatient Medications on File Prior to Encounter Medication Sig Dispense Refill aspirin 81 mg EC tablet Take 1 tablet (81 mg total) by mouth. bisacodyL (Dulcolax, bisacodyl,) 5 mg EC tablet Take 1 tablet (5 mg total) by mouth. lisinopriL (PRINIVIL,ZESTRIL) 20 mg tablet Take 1 tablet (20 mg total) by mouth. nabumetone (RELAFEN) 500 mg tablet Take 1 tablet (500 mg total) by mouth. Physical Exam Vitals: 10/19/24 0346 10/19/24 0348 10/19/24 0640 10/19/24 0641 BP: 104/89 (!) 144/82 BP Location: Patient Position: Pulse: (!) 116 75 Resp: 18 18 Temp: 37.2 ??C (99 ??F) 37.1 ??C (98.8 ??F) TempSrc: SpO2: 99% 97% Weight: Height: CONSTITUTIONAL: The patient appears uncomfortable but otherwise non-toxic, well nourished and in noacute distress. Vital signs reviewed as documented. HEAD: Atraumatic, normocephalic. EYES: EOMs grossly intact, pupils equal, conjunctiva clear, no exudate. ENT: Nares patent, no discharge. Airway patent, no audible stridor, visible mucosa is pink and moist without noted lesions. NECK: Trachea is midline, no obvious masses or gross abnormalities. CHEST: Symmetric movement, normal appearance. LUNGS: LS present and CTAB, no w/r/r. Non-labored work of breathing. CARDIAC: Regular Rhythm, S1/S2 appreciated, no murmurs, rubs or gallops. ABDOMEN: Abdomen soft x4 quadrants, positive fullness and tenderness of the suprapubic area. No masses or organomegaly. : Mccurdy catheter appears in appropriate position, with mild bleeding around the urethral meatus, dried blood on the underwear. There is less than 5 cc of blood-tinged urine noted in the leg bag. EXTREMITIES: Normal tone, moves all extremities spontaneously without reported pain. No obvious injury or deformity noted. NEURO: Alert and oriented x3, CN II-XII appear grossly intact. Cerebellar Functioning grossly intact. Speech clear and appropriate. PSYCH: normal affect, with appropriate eye contact and fluid, appropriate speech. No reported suicidality or homicidality. SKIN: Warm, dry, color appropriate, normal turgor. No rashes noted. Results Labs Reviewed BASIC METABOLIC PANEL - Abnormal Result Value Sodium 137 Potassium 4.1 Chloride 108 CO2 23 Anion Gap 6 Glucose 117 (*) BUN 22 Creatinine 1.53 (*) eGFR 46 (*) BUN/Creatinine Ratio 14.4 Calcium 9.0 URINALYSIS WITH REFLEX MICROSCOPIC AND CULTURE - Abnormal Specific [place]ling Urine 1.020 pH, Urine 8.5 (*) Leukocytes, Urine Large (*) Nitrite, Urine Negative Protein, Urine 300 (*) Glucose, Urine Negative Ketones, Urine Negative Urobilinogen, Urine 0.2 Bilirubin, Urine Negative Blood, Urine Large (*) RBC, Urine 292.8 (*) WBC, Urine 9.2 (*) Squamous Epithelial, Urine >100 (*) Bacteria, Urine Few (*) Hyaline Casts, Urine 63.9 (*) CBC WITH AUTO DIFFERENTIAL - Abnormal WBC 8.7 RBC 4.10 (*) Hemoglobin 10.8 (*) Hematocrit 33.6 (*) MCV 81.8 MCH 26.3 (*) MCHC 32.1 RDW 12.8 Platelets 351 MPV 9.2 NRBC 0.0 NRBC Absolute 0.00 Neutrophils Relative 82.1 Lymphocytes Relative 10.1 Monocytes Relative 5.7 Eosinophils Relative 0.6 Basophils Relative 0.7 Immature Granulocytes Relative 0.8 Neutrophils Absolute 7.14 (*) Lymphocytes Absolute 0.88 (*) Monocytes Absolute 0.50 Eosinophils Absolute 0.05 Basophils Absolute 0.06 Immature Granulocytes Absolute 0.07 (*) CULTURE URINE CBC AND DIFFERENTIAL Narrative: The following orders were created for panel order CBC and differential. Procedure Abnormality Status --------- ------ CBC auto differential[[id number]] Abnormal Final result Please view results for these tests on the individual orders. URINALYSIS WITH REFLEX MICROSCOPIC AND CULTURE Narrative: The following orders were created for panel order Urinalysis with reflex microscopic and culture. Procedure Abnormality Status --------- ------ Urinalysis with reflex ...[[id number]] Abnormal Final result Lan urine culture tube[[id number]] In process Please view results for these tests on the individual orders. Abnormal Labs Reviewed BASIC METABOLIC PANEL - Abnormal; Notable for the following components: Result Value Glucose 117 (*) Creatinine 1.53 (*) eGFR 46 (*) All other components within normal limits URINALYSIS WITH REFLEX MICROSCOPIC AND CULTURE - Abnormal; Notable for the following components: pH, Urine 8.5 (*) Leukocytes, Urine Large (*) Protein, Urine 300 (*) Blood, Urine Large (*) RBC, Urine 292.8 (*) WBC, Urine 9.2 (*) Squamous Epithelial, Urine >100 (*) Bacteria, Urine Few (*) Hyaline Casts, Urine 63.9 (*) All other components within normal limits CBC WITH AUTO DIFFERENTIAL - Abnormal; Notable for the following components: RBC 4.10 (*) Hemoglobin 10.8 (*) Hematocrit 33.6 (*) MCH 26.3 (*) Neutrophils Absolute 7.14 (*) Lymphocytes Absolute 0.88 (*) Immature Granulocytes Absolute 0.07 (*) All other components within normal limits No orders to display I have discussed any resulted incidental/abnormal imaging and/or lab abnormalities with the patientand have instructed them of the need for further evaluation and workup with their primary care doctor. The laboratory results, imaging results and other diagnostic exam results were reviewed in the EMR. EKG Interpretation Critical Care Time None ? Medical Decision Making The patient is an 79-year-old male presenting to the emerged part with history of prostate CA with chronic Mccurdy catheter, patient reports since Mccurdy catheter was changed at 1 PM today he had some initial urinary output but since 11:00p he has had no additional urinary output, presents to the ED for evaluation of urinary retention. The patient has no associated fever, nausea, vomiting, or other systemic complaint. The patient has a slight amount of blood-tinged urine in the leg bag. Exam reveals mild fullness and tenderness of the suprapubic region, at this time patient appears to be suffering from a clogged Mccurdy catheter, will replace with three-way and initiate bladder irrigation to yonny ring. Pending improvement in symptoms patient will likely be discharged home to follow-up with his urologist. ED Course as of 10/19/24 0655 ThuOct 19, 2024 0625 The patient's urine has cleared, no additional blood or blood clots. Patient's pain is relieved following replacement of Mccurdy catheter and irrigation. Pending unremarkable urinalysis we will discharge with outpatient follow-up with urology/oncology. [RM] 0651 Patient's urinalysis consistent with reported hematuria, no nitrites, few bacteria, and significant squamous epithelial cells, at this time patient will be discharged without antibiotics with instruction to follow-up with PCP and urologist to discuss results of culture and indication for antibiotics. [RM] ED Course User Index [RM] CELINA Luciano Clinical Impressions as of 10/19/24 0655 Malfunction of Mccurdy catheter, initial encounter ([facility]) Medications - No data to display Procedures Procedures Diagnosis 1. Malfunction of Mccurdy catheter, initial encounter ([facility]) Disposition Discharge ED Prescriptions None Physician Attestation CELINA Luciano 10/19/24 0414 CELINA Luciano 10/19/24 0655 CELINA Luciano 10/19/24 0702 Cosigned by Gabriel Dubon MD at 10/22/2024 11:25 PM EST Associated attestation - Gabriel Dubon MD - 10/22/2024 11:25 PM EST The PA has seen, evaluated, and treated the patient. I, Dr. Dubon, have reviewed the record and agree with the documentation as written, except as noted. Gabriel Dubon MD documented in this encounter Plan of Treatment Not on file documented as of this encounter Procedures Procedure Name Priority Date/Time Associated Diagnosis Comments URINALYSIS WITH REFLEX MICROSCOPIC AND CULTURE STAT 10/19/2024 5:38 AM EST LAN URINE CULTURE TUBE STAT 10/19/2024 5:38 AM EST URINALYSIS WITH REFLEX MICROSCOPIC AND CULTURE STAT 10/19/2024 5:38 AM EST CULTURE URINE STAT 10/19/2024 5:38 AM EST CBC WITH AUTO DIFFERENTIAL STAT 10/19/2024 4:21 AM EST CBC AND DIFFERENTIAL STAT 10/19/2024 4:21 AM EST BASIC METABOLIC PANEL STAT 10/19/2024 4:21 AM EST documented in this encounter Results * Culture urine (10/19/2024 5:38 AM EST) Culture, Urine No growth 10/20/2024 8:31 AM EST [facility] Urine Urine specimen obtained by clean catch procedure / Unknown Non-blood Collection / Unknown 10/19/2024 5:38 AM EST 10/19/2024 6:50 AM EST [facility] MICROBIOLOGY - GENERAL ORDER MALATHI Final Result Performing Organization Address [facility]/ZIP Co de Phone Number [facility] [address] [place] [address], [place] [phone] * Lan urine culture tube (10/19/2024 5:38 AM EST) [facility] Extra Tube Hold for add-ons. 10/19/2024 8:01 AM EST [facility] Comment:Auto resulted. Urine Urine specimen obtained by clean catch procedure / Unknown Non-blood Collection / Unknown 10/19/2024 5:38 AM EST 10/19/2024 6:20 AM EST [facility] URINE ORDERABLES Final Resul t Performing Organization Address [facility]/ZIP Co de Phone Number [facility] [address] [place] [address], [place] [phone] * (ABNORMAL) Urinalysis with reflex microscopic and culture (10/19/2024 5:38 AM EST) Pathologist [facility] Specific [place] Urine 1.020 1.003 - 1.030 LAB URINALYSIS - AUTOMATED METHOD 10/19/2024 6:50 AM EST [facility] pH, Urine 8.5(A) 5.0 - 8.0 pH LAB URINALYSIS - AUTOMATED METHOD 10/19/2024 6:50 AM [facility] Leukocytes, Urine Large(A) Negative LAB URINALYSIS - AUTOMATED METHOD 10/19/2024 6:50 AM [facility] Nitrite, Urine Negative Negative LAB URINALYSIS - AUTOMATED METHOD 10/19/2024 6:50 AM [facility] Protein, Urine 300(A) <=Trace mg/dL LAB URINALYSIS - AUTOMATED METHOD 10/19/2024 6:50 AM [facility] Glucose, Urine Negative Negative mg/dL LAB URINALYSIS - AUTOMATED METHOD 10/19/2024 6:50 AM [facility] Ketones, Urine Negative Negative mg/dL LAB URINALYSIS - AUTOMATED METHOD 10/19/2024 6:50 AM [facility] Urobilinogen, Urine 0.2 0.2 - 1.0 mg/dL LAB URINALYSIS - AUTOMATED METHOD 10/19/2024 6:50 AM [facility] Bilirubin, Urine Negative Negative LAB URINALYSIS - AUTOMATED METHOD 10/19/2024 6:50 AM [facility] Blood, Urine Large(A) Negative LAB URINALYSIS - AUTOMATED METHOD 10/19/2024 6:50 AM [facility] RBC, Urine 292.8(H) 0 - 4 /HPF LAB URINALYSIS - AUTOMATED METHOD 10/19/2024 6:50 AM [facility] WBC, Urine 9.2(H) 0 - 4 /HPF LAB URINALYSIS - AUTOMATED METHOD 10/19/2024 6:50 AM [facility] Squamous Epithelial, Urine >100(H) 0 - 60 /LPF LAB URINALYSIS - AUTOMATED METHOD 10/19/2024 6:50 AM [facility] Bacteria, Urine Few(A) Negative /HPF LAB URINALYSIS - AUTOMATED METHOD 10/19/2024 6:50 AM [facility] Hyaline Casts, Urine 63.9(H) 0 - 3 /LPF LAB URINALYSIS - AUTOMATED METHOD 10/19/2024 6:50 AM [facility] Urine Urine specimen obtained by clean catch procedure / Unknown Non-blood Collection / Unknown 10/19/2024 5:38 AM EST 10/19/2024 6:20 AM EST us [facility] URINE ORDERABLES Final Resul t [facility] [address] [place] [address], [place] [phone] * (ABNORMAL) CBC auto differential (10/19/2024 4:21 AM EST) WBC 8.7 4.8 - 10.8 K/mcL LAB HEMETOLOGY METHOD 10/19/2024 4:28 AM [facility] RBC 4.10(L) 4.50 - 5.50 M/mcL LAB HEMETOLOGY METHOD 10/19/2024 4:28 AM [facility] Hemoglobin 10.8(L) 13.5 - 17.5 g/dL LAB HEMETOLOGY METHOD 10/19/2024 4:28 AM [facility] Hematocrit 33.6(L) 42.0 - 54.0 % LAB HEMETOLOGY METHOD 10/19/2024 4:28 AM [facility] MCV 81.8 79.0 - 98.0 FL LAB HEMETOLOGY METHOD 10/19/2024 4:28 AM [facility] MCH 26.3(L) 27.0 - 32.0 pcg LAB HEMETOLOGY METHOD 10/19/2024 4:28 AM [facility] MCHC 32.1 32.0 - 37.0 g/dL LAB HEMETOLOGY METHOD 10/19/2024 4:28 AM [facility] RDW 12.8 11.0 - 15.0 % LAB HEMETOLOGY METHOD 10/19/2024 4:28 AM [facility] Platelets 351 130 - 400 K/mcL LAB HEMETOLOGY METHOD 10/19/2024 4:28 AM [facility] MPV 9.2 7.0 - 11.0 FL LAB HEMETOLOGY METHOD 10/19/2024 4:28 AM [facility] NRBC 0.0 <1.0 % LAB HEMETOLOGY METHOD 10/19/2024 4:28 AM [facility] NRBC Absolute 0.00 <0.10 K/mcL LAB HEMETOLOGY METHOD 10/19/2024 4:28 AM [facility] Neutrophils Relative 82.1 % LAB HEMETOLOGY METHOD 10/19/2024 4:28 AM [facility] Lymphocytes Relative 10.1 % LAB HEMETOLOGY METHOD 10/19/2024 4:28 AM [facility] Monocytes Relative 5.7 % LAB HEMETOLOGY METHOD 10/19/2024 4:28 AM [facility] Eosinophils Relative 0.6 % LAB HEMETOLOGY METHOD 10/19/2024 4:28 AM [facility] Basophils Relative 0.7 % LAB HEMETOLOGY METHOD 10/19/2024 4:28 AM [facility] Immature Granulocytes Relative 0.8 % LAB HEMETOLOGY METHOD 10/19/2024 4:28 AM [facility] Neutrophils Absolute 7.14(H) 1.50 - 7.00 K/mcL LAB HEMETOLOGY METHOD 10/19/2024 4:28 AM [facility] Lymphocytes Absolute 0.88(L) 1.00 - 5.00 K/mcL LAB HEMETOLOGY METHOD 10/19/2024 4:28 AM EST [facility] Monocytes Absolute 0.50 0.20 - 1.00 K/[facility] LAB HEMETOLOGY METHOD 10/19/2024 4:28 AM EST [facility] Eosinophils Absolute 0.05 0.00 - 0.50 K/mcL LAB HEMETOLOGY METHOD 10/19/2024 4:28 AM EST [facility] Basophils Absolute 0.06 0.00 - 0.20 K/[facility] HEMETOLOGY METHOD 10/19/2024 4:28 AM [facility] Immature Granulocytes Absolute 0.07(H) 0.00 - 0.03 K/[facility] HEMETOLOGY METHOD 10/19/2024 4:28 AM [facility] Blood Venous blood specimen / Unknown Venipuncture / Unknown 10/19/2024 4:21 AM EST 10/19/2024 4:25 AM EST us [facility] BLOOD ORDERABLES Final Resul t [facility] [address] [place] [address], * (ABNORMAL) Basic metabolic panel (10/19/2024 4:21 AM EST) Sodium 137 133 - 145 mmol/L LAB CHEMISTRY METHOD 10/19/2024 4:43 AM [facility] Potassium 4.1 3.5 - 5.5 mmol/L LAB CHEMISTRY METHOD 10/19/2024 4:43 AM [facility] Chloride 108 96 - 110 mmol/L LAB CHEMISTRY METHOD 10/19/2024 4:43 AM [facility] CO2 23 21 - 32 mmol/L LAB CHEMISTRY METHOD 10/19/2024 4:43 AM [facility] Anion Gap 6 3 - 11 LAB CHEMISTRY METHOD 10/19/2024 4:43 AM [facility] Glucose 117(H) 70 - 100 mg/dL LAB CHEMISTRY METHOD 10/19/2024 4:43 AM [facility] BUN 22 5 - 25 mg/dL LAB CHEMISTRY METHOD 10/19/2024 4:43 AM [facility] Creatinine 1.53(H) 0.70 - 1.30 mg/dL LAB CHEMISTRY METHOD 10/19/2024 4:43 AM [facility] eGFR 46(L) >=60 mL/min/1. 73m2 LAB CHEMISTRY METHOD 10/19/2024 4:43 AM [facility] Comment:Calculation based on the??Chronic Kidney Disease Epidemiology Collaboration (CKD-EPI) equation refit??without adjustment for race. BUN/Creatinine Ratio 14.4 LAB CHEMISTRY METHOD 10/19/2024 4:43 AM [facility] Calcium 9.0 8.5 - 10.5 mg/dL LAB CHEMISTRY METHOD 10/19/2024 4:43 AM [facility] Blood Venous blood specimen / Unknown Venipuncture / Unknown 10/19/2024 4:21 AM EST 10/19/2024 4:25 AM EST [facility] BLOOD ORDERABLES Final Resul t [facility] [address] [place] [address], documented in this encounter Visit Diagnoses Diagnosis Malfunction of Mccurdy catheter, initial encounter ([facility])- Primary Neuropathy Mononeuritis of unspecified site documented in this encounter Active and Recently Administered Medications Orders Medications Ordered That Nishant ht Not Have Been Administered Count Last Ordered Date First Ordered Date ketorolac (TORADOL) injection 15 mg 1 10/19 Nursing Count Last Ordered Date First Orde red Date BLADDER SCAN 1 10/19/2024 INSERT INDWELLING CATHETER 1 10/19/2024 documented in this encounter Care Teams Clinical Data Specialist Relationship Specialty Start Date End Date Erik Hill PA [address] [place] [phone] PCP - General Internal Medicine 10/19/24 documented as of this encounter
--- OUTSIDE RECORDS SUMMARY | 2024-11-08 09:37 | XMS_ITS | Encounter Summary ---
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 Organization [place] Address [address] [place] [address] Care Team Providers Care Dormitory Maid Name Role Phone ROWENA ROY Primary Care [...] Segal's Name Patient's Relationship to Policy Segal [facility] (R) MEDICARE ADVANTAGE [place] Sep 21, 2023 [id number] [phone] GENET DUGAN S [facility]) [facility]IC[facility] ADVANTAGE [facility] Sep 21, 2023 [id number] [phone] DUGAN,GENET S PATIENT HUSKY MEDICAID HUSKY PLAN May 22, 2022 MEDICAI D [id number] MARVIN DUGANI S PATIENT MEDICARE (WN) MEDICARE (M) PART B May 22, 2022 PART B [id number] DUGAN,GENET S PATIENT MEDICARE (WNR) MEDICARE (M) PART A Feb 19, 2009 PART A [id number] [phone] DUGAN,GENET S PATIENT MEDICARE PART D (WNR) MEDICARE (M) PART D Jul 22, 2022 PART D [id number] [phone] GENET DUGAN PATIENT [facility] (WNR) MEDICARE ADVANTAGE MCR (WNR) Sep 21, 2022 [id number] GENET DUGAN PATIENT [facility] (WNR) MEDICARE ADVANTAGE MCR (WNR) Sep 21, 2022 [id number] [phone] GENET DUGAN PATIENT Selected Encounter This section includes the information on record at [place] for the Encounter. Date/Time Encounter Type Encounter Description Reason Pro vider Source Oct 25, 2024 01:00 PM Outpatient Encounter COMMUNITY CARE CONSULT IHE [...] 2024 01:30 PM AMBULATORY - MEDICINE [facility] Jan 02, 2025 10:00 AM AMBULATORY - MEDICINE [place] [facility] Active, Pending, [...] 04:31 PM Consult Order COMMUNITY CARE-ONCOLOGY Cons American Sign Language Interpreter's [facility] Advance Directives: All historical and current Section [...] Encounter. Date/Time Encounter Note(s) Provider Source Oct 25, 2024 01:00 PM NONVA NOTE: [facility] TITLE: [facility] SELF PRESENTING CARE COORD PLAN STANDARD TITLE: NONVA NOTE DATE OF NOTE: OCT 25, 2024@13:00 ENTRY DATE: OCT 25, 2024@13:00:38 AUTHOR: IKE BRODY EXP COSIGNER: URGENCY: STATUS: COMPLETED Emergency Notification Intake Date Presenting to the Facility: Aug Method of Contact: Notified from ECR worklist Notification ID: [id number] [facility] Referral #: [id number] [facility] Name: Hospital: [facility] Address: City: [place] State: [place] Zip Code: Phone : Community Facility Point of Contact: Name: Vijay Phone: Chief complaint: ABDOMINAL PAIN Primary Diagnosis: Disposition Discharged Date of discharge: Aug Discharge to Comment: ER Only /mariana/ IKE MCINTYRE Signed: 10/25/2024 13:04 Receipt Acknowledged By: 10/25/2024 13:11 /es/ SHANTAL LOPEZ REGISTERED NURSE 10/31/2024 09:48 /es/ ROWENA ROY NP NURSE PRACTITIONER 10/25/2024 14:37 /es/ Mariluz BASS,RN,[facility] TRANSFER/TRAVELING COORDINATOR IKE BRODY MARISSA
--- OUTSIDE RECORDS SUMMARY | 2024-11-08 09:37 | XMS_ITS ---
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 Organization [facility] Address [address] [place] [id number] Care Team Providers Care Vendor Quality Supervisor Name Role Phone ROWENA ROY Primary [...] Segal's Name Patient's Relationship to Policy Segal [facility]) MEDICARE AD[place]ANTAGE [place] Sep 21, 2023 [id number] [phone] GENET DUGAN S [facility]IENT [facility]) [facility]IC[facility] ADVANTAGE [facility] ([facility]) Sep 21, 2023 [id number] [phone] MARVIN DUGANI S PATIENT HUSKY MEDICAID HUSKY PLAN May 22, 2022 MEDICAI D [id number] GENET DUGAN S PATIENT MEDICARE ([facility]) MEDICARE (M) PART B May 22, 2022 PART B [id number] MARVIN DUGANI S PATIENT MEDICARE ([facility]) MEDICARE (M) PART A Feb 19, 2009 PART A [id number] [id number] [phone] DUGAN,GENET S PATIENT MEDICARE PART D (WNR) MEDICARE (M) PART D Jul 22, 2022 PART D [id number] [phone] GENET DUGAN PATIENT [facility] (WNR) MEDICARE ADVANTAGE MCR (WNR) Sep 21, 2022 [id number] [phone] GENET DUGAN S PATIENT [facility] MCR (WNR) MEDICARE ADVANTAGE MCR (WNR) Sep 21, 2022 [id number] GENET DUGAN PATIENT Selected Encounter This section includes the information on record at [place] for the Encounter. Date/Time Encounter Type Encounter Description Reason Pro vider Source Oct 26, 2024 02:31 PM Outpatient Encounter PRIMARY CARE/MEDICINE IHE Encounter [...] 02, 2025 10:00 AM AMBULATORY - MEDICINE [place] [facility] Active, Pending, [...] 04:31 PM Consult Order COMMUNITY CARE-ONCOLOGY Cons Seismology Technical Officer's [facility] Advance Directives: All historical and current [...] Date/Time Encounter Note(s) Provider Source Oct 26, 2024 02:35 PM ADMINISTRATIVE NOT E: LOCAL TITLE: ADMINISTRATIVE NOTE STANDARD TITLE: ADMINISTRATIVE NOTE DATE OF NOTE: OCT 26, 2024@14:35 ENTRY DATE: OCT 26, 2024@14:35:45 AUTHOR: SHANTAL LOPEZ EXP COSIGNER: URGENCY: STATUS: COMPLETED Oncology consult placed per request from [facility] Oncology/Hematology via right fax folder. Consult held for provider review and sign if appropriate. /mariana/ SHANTAL LOPEZ REGISTERED NURSE Signed: 10/26/2024 14:36 SHANTAL LOPEZ
--- OUTSIDE RECORDS SUMMARY | 2024-11-08 09:37 | XMS_ITS | Encounter Summary ---
Author Organization [employer] Address [address] [facility] [address] [place] [address] Care Team Providers Care Clip And Hanger Attacher Name Role Phone Elijah Johnson MD Primary Care Prov ider Encounter Details Date Type Department Care Team (Late st Contact Info) Description 10/11/2024 Telephone [facility] MED & PEDS [address], [place] [phone] Elijah Johnson MD [address] [place] [address] Social History Tobacco Use Types Packs/Day Years Used Date Smoking Tobacco: Former Cigarettes 1 26 S tarted: 1974 Smokeless Tobacco: Never Alcohol Use Standard Drinks/Week [...] encounter Miscellaneous Notes * Telephone Encounter - Mini Ruffin RN - 10/13/2024 11:42 AM EST TC x2 to [facility]. No answer, Unable to leave message. Nurse to follow up at later date. * Telephone Encounter - Kristy Yo RN - 10/11/2024 11:49 AM EST TC to [facility] Women's services. Put on hold to speak with Adiene regarding message that was left. On hold for long time. Will attempted to contact again. * Telephone Encounter - Dulce Chantelle - 10/11/2024 11:19 AM EST Tc from Jose with [facility] Oncology requesting a call back to clarify pt referral and also has question about any recent imagining pt has gotten done. Best contact # [phone]. documented in this encounter Plan of Treatment Not on file documented as of this encounter Visit Diagnoses Not on filedocumented in this encounter Care Teams Clip And Hanger Attacher Relationship Specialty Start Date End Date Elijah Johnson MD [address] [place] [id number] PCP - General Internal Medicine 08/30/24 documented as of this encounter
--- OUTSIDE RECORDS SUMMARY | 2024-11-08 09:37 | XMS_ITS ---
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 Organization [facility] Address [address] [place] [address] Care Team Providers Care Test Automation Architect Name Role Phone ROWENA ROY Primary [...] to Policy Segal [facility] MEDICARE ADVANTAGE [place] Sep 21, 2023 [id number] [phone] GENET DUGAN S [facility]) [facility]IC[facility] ADVANTAGE [facility] ([facility]) Sep 21, 2023 [id number] [phone] MARVIN DUGANI S PATIENT HUSKY MEDICAID HUSKY PLAN May 22, 2022 MEDICAI D [id number] GENET DUGAN S PATIENT MEDICARE ([facility]) MEDICARE (M) PART B May 22, 2022 PART B [id number] MARVIN DUGANI S PATIENT MEDICARE ([facility]) MEDICARE (M) PART A Feb 19, 2009 PART A [id number] DUGAN,GENET S PATIENT MEDICARE PART D (WNR) MEDICARE (M) PART D Jul 22, 2022 PART D [id number] [id number] [phone] GENET DUGAN PATIENT [facility] (WNR) MEDICARE ADVANTAGE MCR (WNR) Sep 21, 2022 [id number] GENET DUGAN PATIENT [facility] (WNR) MEDICARE ADVANTAGE MCR (WNR) Sep 21, 2022 [id number] [phone] GENET DUGAN PATIENT Selected Encounter This section includes the information on record at [place] for the Encounter. Date/Time Encounter Type Encounter Description Reason Pro vider Source Oct 20, 2024 01:32 PM Outpatient Encounter PRIMARY CARE/MEDICINE IHE Encounter [...] 02, 2025 10:00 AM AM[place]ULATORY - MEDICINE [place] [facility] Active, Pending, [...] 04:31 PM Consult Order COMMUNITY CARE-ONCOLOGY Cons Lactation Nurse's [facility] Advance Directives: All historical and current [...] ADVANCE DIRECTIVE [facility] Encounter Notes: All associated encounter notes This section contains the clinical notes associated to the Encounter. Date/Time Encounter Note(s) Provider Source Oct 20, 2024 02:08 PM ADDENDUM: LOCAL TITLE: Addendum STANDARD TITLE: ADDENDUM DATE OF NOTE: OCT 20, 2024@14:08:01 ENTRY DATE: OCT 20, 2024@14:08:01 AUTHOR: LUCIO ENRIQUEZIGNER: URGENCY: STATUS: COMPLETED Author spoke with and [place] pharmacy resident and declined to cloth picker percocet medication due to reports has already picked up script for percocet from [facility] and the medication bothered his stomach. Dalhart is requesting a prescription for tylenol from his provider for pickup at pharmacy window. author advised that provider is currently with patient but that can send message to provider with Dalhart's request. Author advised Dalhart that he can purchase acetaminophen over the counter if he prefers to use that medication but declined stating that he does not want to pay for the tylenol. also requested a box of gloves for use when applying capsaicin topical medication and author provided with a box of size large gloves from clinic stock. /mariana/ WAGNER ORTEGA RN-BC REGISTERED NURSE Signed: 10/20/2024 14:11 Receipt Acknowledged By: 10/20/2024 14:33 /mariana/ ROWENA ROY NP NURSE PRACTITIONER --- Original Document --- 10/20/24 WALK-IN NOTE PRIMARY CARE (T): <====Click to Start Advanced Medical Support presents to the Primary Care clinic with the following request: [ X ]Medication Renewal/Refill [ ]Consultation with Team RN [ ]Symptoms [ ]Other The states they are: [ X ]Waiting [ ]Not Waiting No Walk in visit scheduled with PACT Nurse [ X ] At this encounter the Dalhart's demographics were verified. [ X ] At this encounter the Dalhart's Insurance information was verified. [ X ] At this encounter the below scheduled visits for the Dalhart were discussed and appointment reminder card was offered. IS CHECKING ON THE STATUS OF TYLENOL PRESCRIPTION. WOULD LIKE TO SPEAK TO CWM/SO/PACT 1 NURSE. Future appointments: 12/13/2024 13:30 CWM/SO/PACT 1 FASHION COORDINATOR 01/02/2025 10:00 NHM OPTOMETRY 1 PM /es/ KENIA DELGADO ADVANCED MANAGER [employer] Signed: 10/20/2024 13:34 Receipt Acknowledged By: 10/20/2024 14:07 /es/ WAGNER ORTEGA RN- REGISTERED NURSE for SHANTAL LOPEZ 10/20/2024 14:27 /es/ SANDEEP VAZQUEZ LPN, [facility] [place] Oct 20, 2024 01:32 PM PRIMARY CARE NOTE: LOCAL TITLE: WALK-IN NOTE PRIMARY CARE (T) STANDARD TITLE: PRIMARY CARE NOTE DATE OF NOTE: OCT 20, 2024@13:32 ENTRY DATE: OCT 20, 2024@13:33:01 AUTHOR: IRAJ DELGADO COSIGNER: URGENCY: STATUS: COMPLETED WALK-IN NOTE PRIMARY CARE (T) Has ADDENDA <====Click to Start Advanced Medical Support Dalhart presents to the Primary Care clinic with the following request: [ X ]Medication Renewal/Refill [ ]Consultation with Team RN [ ]Symptoms [ ]Other The Dalhart states they are: [ X ]Waiting [ ]Not Waiting No Walk in visit scheduled with PACT Nurse [ X ] At this encounter the Dalhart's demographics were verified. [ X ] At this encounter the 's Insurance information was verified. [ X ] At this encounter the below scheduled visits for the Dalhart were discussed and appointment reminder card was offered. IS CHECKING ON THE STATUS OF TYLENOL PRESCRIPTION. WOULD LIKE TO SPEAK TO CWM/SO/PACT 1 NURSE. Future appointments: 12/13/2024 13:30 CWM/SO/PACT 1 FASHION COORDINATOR 01/02/2025 10:00 NHM OPTOMETRY 1 PM /es/ KENIA DELGADO ADVANCED MANAGER [employer] Signed: 10/20/2024 13:34 Receipt Acknowledged By: 10/20/2024 14:07 /es/ WAGNER ORTEGA RN-BC REGISTERED NURSE for SHANTAL LOPEZ 10/20/2024 14:27 /es/ TAMMIE DIAZ LPN LPN 10/20/2024 ADDENDUM STATUS: COMPLETED Author spoke with [place] and [place] pharmacy resident and declined to cloth picker percocet medication due to reports has already picked up script for percocet from [facility] and the medication bothered his stomach. is requesting a prescription for tylenol from his provider for pickup at pharmacy window. author advised that provider is currently with patient but that can send message to provider with Dalhart's request. Author advised Dalhart that he can purchase acetaminophen over the counter if he prefers to use that medication but declined stating that he does not want to pay for the tylenol. also requested a box of gloves for use when applying capsaicin topical medication and author provided with a box of size large gloves from clinic stock. /mariana/ WAGNER ORTEGA RN-BC REGISTERED NURSE Signed: 10/20/2024 14:11 Receipt Acknowledged By: * AWAITING SIGNATURE * ROWENA ROY,KENIA MCDONOUGH
--- OUTSIDE RECORDS SUMMARY | 2024-11-08 09:37 | XMS_ITS | Continuity of Care Document ---
Author Organization [facility] Address [address] [place] [address]- Care Team Providers Care Claim Clerk Name Role Phone Elvira Ramachandran MD Primary Care Physician Encounter 11/03/24 - 11/04/[address] [id number] Attending Physician: Not on Staff, Attending MD Referring Physician: Not on Staff, Referring MD Encounter Type: SMRI Allergies, Adverse Reactions, Alerts Substance Criticality Severity Reaction Reaction Severity Status aspirin Active Immunizations Given and Recorded Vaccine Date Status Refusal Reason tetanus/diphtheria/pertussis, acel(Tdap) 07/07/21 Given influenza virus vaccine, inactivated 07/23/15 Give n influenza virus vaccine, inactivated 11/15/14 Give n influenza virus vaccine, inactivated 1 11/16/13 Gi nils pneumococcal 23-valent vaccine 2 12/16/12 Given tetanus-diphtheria toxoids (Td) 3 02/28/11 Given 1Result Comment: [11/16/2013] flulaval 2Admin Note: vis given vis date 12/28 3Admin Note: Administered at [facility] ER last week- as stated by patient Medications Flomax 0.4 mg oral capsule 0.4 mg, 1, capsule, By Mouth, Daily, # 90 capsule, Refills 0, Tot. Refills 0, Maintenance, 03/18/24 8:35:00 AM EDT, Route to Pharmacy Electronically, [id number], Partial fill upon patient request if the prescription is for a schedule II opioid drug., 180, cm, 03/18/24 2:56:00 EDT, Height, 82, kg, 03/18/24 2:56:00 EDT, Dry Weight Start Date: 03/18/24 Status: Ordered Quantity: 90.0 Unit: capsule Repeat number: 1 Lisinopril By Mouth, Daily, 0 Refills, Maintenance, 11/10/21 12:51:00 AM EST, Partial fill upon patient requestif the prescription is for a schedule II opioid drug. Start Date: 11/10/21 Status: Ordered Repeat number: 1 Problem List Condition Confirmation Course Effective Dates Status Health St atus Informant Atypical chest pain with normal stress test 2012 Confirmed Active Epilepsy Confirmed 1970 Active Hypertension Confirmed Active Results Radiology Reports * Exam Date Time Procedure Performing Provider Status 11/03/24 2:[address] PET Prostate PSMA (Ga68) Modified Notes: (CT PET Prostate PSMA (Ga68)) Reason For Exam: metastatic prostate cancer;metastatic prostate cancer RESULT: CT PET Prostate PSMA (Ga68) [facility] PET/CT Imaging VISIT NUMBER :[id number] Patient Name: Jake Dugan Date of : 1945 Date of Exam: 11-03-2024 Referring Physician: Alexis Robertson [address] [place] [address] [address] [place] [address] Exam: PT Prostate Ga 68 PSMA CPT 49387 Room Description: [facility] Pt4 PET-CT [id number] History: Prostate cancer. Staging. Technique: Approximately 60 minutes following the intravenous administration of 5.7 mCi of [id number] (Illuccix), the patient was asked to use the bathroom to empty the bladder and subsequent PET and CT images were obtained from the mid thighs to the base of skull without IV or oral contrast, with the patient maintaining quiet breathing. Following attenuation correction using the CT images, axial, sagittal, and coronal images were reconstructed. Additional thinner slice reconstruction was performed for the pelvis images. CT images are used for attenuation correction and image localization and were neither performed, nor intended to replace diagnostic quality CT. Comparison: Correlation made with CT abdomen/pelvis 10/14/2023 FINDINGS: Overall image quality: Good. Physiologic radiotracer distribution is seen in salivary and lacrimal glands, liver, spleen, bowel, and kidneys. PROSTATE: Intense tracer uptake in the prostate with nodular soft tissue extending posteriorly towards the rectum. SUV max 10.5. SEMINAL VESICLES: Unremarkable. BLADDER: Mccurdy catheter in place. Contains excreted tracer LYMPH NODES: Right external iliac node measuring 1.2 cm short axis with SUV max 6.2. Right common iliac node on CT image 146 measuring 0.9 cm short axis with SUVmax 2.8. Mild uptake within enlarged bilateral retroperitoneal nodes, for example a left para-aortic node on image 133 measures 1.3 cm short axis with SUV max 3.3. Left external iliac node on image 159 measures 1.6 cm short axis with SUV max 3.5. BONES: Innumerable sites of increased tracer uptake throughout the axial and proximal appendicular skeleton, many of which correspond to sclerotic lesions on CT. INCIDENTAL CT FINDINGS: Head and Neck: No significant incidental findings. Chest: Mild tracer uptake in mediastinal and bilateral hilar nodes, for example subcarinal node measuring 0.9 cm short axis has SUV max 4.2. AP window mediastinal node measuring 8 mm short axis has SUV max 3.3. Abdomen and pelvis: Moderate right hydronephrosis with significantly decreased activity in the right kidney. Simple left upper pole renal cyst. Moderate vascular calcifications. IMPRESSION: 1. Widespread osseous metastatic disease. 2. Tracer uptake within mediastinal and hilar lymph nodes as well as retroperitoneal and pelvic nodes, compatible with metastases. 3. Tracer uptake in the prostate extending posteriorly towards the rectum, compatible with prostate cancer. 4. Right hydronephrosis with decreased activity in the right kidney, highly concerning for compromised right renal function. No obstructing stone. Electronically Signed By: Daljit Vigil MD Dictated By: Not on Staff MILI MD Dictated Date/Time: 11/03/24 2:48 pm Reviewed By: Not on Staff MILI MD Signed By: Not on Staff , MILI MURRAY Signed Date/Time: 11/03/24 2:48 pm Transcribed By: NAOMI Transcribed Date/Time: 11/03/24 2:48 pm Social History Social History Type Response Smoking Status Former smoker; Other : QUIT 18 YEARS AGO; entered on: 11/15/14 Sex Sex Representation Male (finding) Patient Care team information Care Team Personnel Name: Elvira Ramachandran MD Position: Reference Physician Member Role: PCP Address: [address] [place] [address] Telecom: Care Team Related Persons Name: LEI CARCAMO Name: ADOLFO DUGAN Name: MIKAEL DUGAN Insurance Providers Guarantor name: JAKELIGIA ISRAELAN Health Plan Information #: 1 Payer: ERYN GOODSON Member Number: NA Policy Number: NA Group Number: NA
== END 2024-11-08 10:13 | disposition home or self-care (01) ==
PROVIDERS: PCP Internal Medicine; Visit Provider Urology
DX: C61 Malignant neoplasm of prostate (principal); C79.51 Secondary malignant neoplasm of bone
CPT/HCPCS: 99214; G2211

== ENCOUNTER → 2024-11-08 09:03 | Outpatient (BNVA) | payer OTHER, SELFPAY | PROVIDERS: PCP Internal Medicine; Visit Provider Urology | DX: C61 Malignant neoplasm of prostate (principal); C79.51 Secondary malignant neoplasm of bone; N40.1 Benign prostatic hyperplasia with lower urinary tract symptoms; R33.8 Other retention of urine | CPT/HCPCS: 99212 ==

== ENCOUNTER → 2024-11-21 10:50 | Outpatient (BNV) | payer OTHER, SELFPAY | PROVIDERS: PCP Internal Medicine; Visit Provider Urology | DX: C61 Malignant neoplasm of prostate (principal); C77.5 Secondary and unspecified malignant neoplasm of intrapelvic lymph nodes; R33.9 Retention of urine, unspecified | CPT/HCPCS: 51102; 52649; 99024; G0180 ==

== ENCOUNTER → 2024-11-21 12:03 | Outpatient (BNV) | payer OTHER, SELFPAY | PROVIDERS: Admitting Provider Urology; PCP Internal Medicine; Visit Provider Internal Medicine Cardiovascular Disease | DX: I45.10 Unspecified right bundle-branch block (principal) | CPT/HCPCS: 93010 ==

== ENCOUNTER 2024-11-21 16:14 | Inpatient (IN) | payer OTHER, SELFPAY ==
--- NOTE | 2024-11-17 14:49 | P.CONAN_ITS ---
Documented by User: Melissa Bertrand NP 11/17/24 14:51 HPI - Anesthesia Eval Consult details Narrative: 79yo M for Laser Ablation Prostate w/Green Light, suprapubic tube placement Chronic opioids PMFSH Active Problems Active Problems: All Active Problems Prostate cancer metastatic to bone (Acute) Urinary retention with incomplete bladder emptying (Acute) Prostate cancer metastatic to intrapelvic lymph node (Acute) UTI (urinary tract infection) due to urinary indwelling catheter (Acute) Olecranon bursitis, left elbow (Acute) Past Medical History Medical History Prostate cancer Seizures Chronic retention of urine Abnormal prostate specific antigen Dysuria Nodular prostate Gross hematuria Hypertension Surgical History Surgical History History of bladder surgery History of prostate biopsy Social History Social History Household Members: None Alcohol intake: never Patient Tobacco Use Status: Former Tobacco user Tobacco use type: Cigarette Advance Directives: No Advance Directives Information Provided: Yes service: Yes Current occupational status: unemployed and retired Current occupation: right handed Meds Allergies Allergy/AdvReac Type Severity Reaction Status Date / Time aspirin [ASPIRIN] Allergy Unknown UNKNOWN Verified 11/21/24 11:01 Home Medications ?Medication ?Instructions ?Recorded ?Confirmed ?Last Taken ?Type calcium phosphate,dibasic 77 1,000 tab PO DAILY 11/09/24 11/14/24 Unknown History mg-vitamin D3 400 unit tablet vitamin T73-[id number] B1 100 mg-1 100 ml IM DAILY 11/09/24 11/14/24 Unknown History mg/mL intramuscular solution Exam Height,Weight and Vital Signs: Height 5 ft 10 in Assessment and Plan Assessment Anesthesia Assessment: Chart Reviewed Documented by User: Chris Irvin MD 11/21/24 11:47 PMFSH Past Medical History Medical History Prostate cancer Seizures Chronic retention of urine Abnormal prostate specific antigen Dysuria Nodular prostate Gross hematuria Hypertension Family History Family history of problems with anesthesia: No Surgical History Surgical History History of bladder surgery History of prostate biopsy History of Problems with Anesthesia: No Social History Social History Household Members: None Alcohol intake: never Patient Tobacco Use Status: Former Tobacco user Tobacco use type: Cigarette Advance Directives: No Advance Directives Information Provided: Yes service: Yes Current occupational status: unemployed and retired Current occupation: right handed Meds Allergies Allergy/AdvReac Type Severity Reaction Status Date / Time aspirin [ASPIRIN] Allergy Unknown UNKNOWN Verified 11/21/24 11:01 Home Medications ?Medication ?Instructions ?Recorded ?Confirmed ?Last Taken ?Type calcium phosphate,dibasic 77 1,000 tab PO DAILY 11/09/24 11/14/24 Unknown Hi story mg-vitamin D3 400 unit tablet vitamin Q66-hcphsfl B1 100 mg-1 100 ml IM DAILY 11/09/24 11/14/24 Unknown History mg/mL intramuscular solution Exam Airway Mallampati Class: I TM Dist: >3cm Neck ROM: Full Loose/Missing/Broken Teeth: No Heart: ok Lungs: ok Assessment and Plan Assessment Anesthesia Assessment: Anesthesia Plan Discussed Final Anesthetic Review Family History of Problems with Anesthesia: No History of Problems with Anesthesia: No NPO: Yes ASA Class: III Final Preanesthetic Review: No Changes in Pt Med Stat, Meds/Allgs Chart Reviewed, Consent Obtained/Reviewed and Anes Risks/Benef Reviewed Patient Risk: Intermediate Procedure Risk: Low Anesthetic Plan Anesthetic Plan: GA and Agree w/ Assess. and Plan Disposition: Standard PACU
[2024-11-21] VITALS (23 sets, daily range): BP systolic 140–184; BP diastolic 38–155; PULSE 68–108; RESP 14–22; TEMP 36.1–37.5; O2SAT 95–100; BMI 23.4
--- NOTE | 2024-11-21 | ECG_ITS ---
Test Reason : PREOP Blood Pressure : */* mmHG Vent. Rate : 83 BPM Atrial Rate : 83 BPM P-R Int : 166 ms QRS Dur : 126 ms QT Int : 424 ms P-R-T Axes : 31 -44 3 degrees QTcB Int : 498 ms Normal sinus rhythm Left axis deviation Right bundle branch block Minimal voltage criteria for LVH, may be normal variant ( R in aVL ) Abnormal ECG When compared with ECG of 02-Jun-2013 11:07, Right bundle branch block is now Present Referred By: Chris Irvin Electronically Signed By: ORLANDO GARCIA MD
[2024-11-21] MEDS: Lactated Ringers 1,000 ML 100 ML IVCONT ×2 (11:11→20:13)
--- NOTE | 2024-11-21 11:22 | P.HPSUR_ITS ---
Pre-Procedural Eval Section A - 24 Hr Update-Section A only Date of Service: 11/21/24 The patient is an INPATIENT: No Changes since office visit: No Cold of Flu in the past 2 weeks, No New Medical Problems, No Changes in Medication and No Patient answered all questions The patient has been examined within 24 hours of the surgical procedure. The History & Physical has been completed within 30 days and I have reviewed it.: Yes Section B - Complete if H&P > 30 days Chief Complaint: Malignant neoplasm of prostate Details of Present Illness: Cystoscopy, suprapubic tube placement, GreenLight laser prostate resection Relevant Family History (Specify if Yes): No Relevant Social History: None Present Medications: see Short Stay Collaborative assessment Medical History: Significant History History of Previous Operations: No relevant previous surgery Allergies: Allergies Allergy/AdvReac Type Severity Reaction Status Date / Time aspirin [ASPIRIN] Allergy Unknown UNKNOWN Verified 11/21/24 11:01 Review of Systems Sugical H&P ROS: Negative: Constitution, Cardiovascular, Respiratory, Neurological, Psychiatric, Hem-Onc, Allergic/Immunologic, Gastrointestinal, Luci tourinary, Musculoskeletal, Integumentary, Endocrine and Eyes/Ears/Nose/Throat Exam Surgical H&P Exam: Normal: HEENT, Normal: Heart, Normal: Lungs, Normal: Extremities, Normal: Abdomen, Normal: Skin and Normal: Neurological Plan Diagnosis/Plan: Unchanged (See above) I have reviewed the history and physical and performed a pertinent physical examination on my patient. No changes have occurred unless specified. Time Spent With Patient Time: Total time managing care of this patient today ____ minutes.
[2024-11-21] MEDS: Tranexamic Acid 1,000 MG in 0.9 % Sodium Chloride 50 ML 360 MG IV (11:40)
--- NOTE | 2024-11-21 11:57 | PC.NURSE ---
Patient stated he did not have heat in his home during admission and has been working with a director social service in oncology for this. author spoke with roel catherine in oncology who is working on this issue now and author spoke with granddaughter, Kwame, who stated she is aware that he does not have heat and will arrange for patient to stay with family post operatively until heating issue is resolved.
[2024-11-21] MEDS: ceFAZolin Sodium/Dextrose,Iso 2 GM/50 ML PIGGYBACK IV (12:00)
--- NOTE | 2024-11-21 13:27 | W.PM.OPN ---
Operative Note Operative Note Date of Service: 11/21/24 Narrative: PreOperative Diagnosis: 1. Urinary retention 2. Locally advanced prostate cancer with urinary obstruction Post Operative Diagnosis: Above Procedure: 1. Cystoscopy suprapubic tube placement 2. GreenLight laser of locally advanced prostate cancer Surgeon: Dr Alexis Robertson Anesthesia: LMA Indications for procedure: Locally advanced prostate cancer with urinary retention. Failed multiple voiding trials. Plan for suprapubic tube placement to allow drainage and channel TURP. Procedure: After informed consent was verified the patient was brought to the operating room and placed in a supine position. Anesthesia was administered per protocol. The patient was prepped and draped in a sterile fashion. Safety pause time-out was performed. Antibiotics being given. Twenty-two Peruvian cystoscope was placed. There was extension from the apex of the prostate into the urethra of a polypoid lesion consistent with locally advanced prostate cancer spread. The bladder was emptied. Debris was present within bladder as well as mucus and dystrophic calcification. The bladder was irrigated clear. Air bubble was located at the dome of the bladder. A finder needle was inserted 2 fingerbreaths above the symphysis pubis on the abdomen into the bladder.? The needle was visualized in the bladder via cystoscopy. Local anesthetic was infiltrated subcutaneously around the needle introduction site. A small, 1cm horizontal incision was made.? A trocar introducer was advanced through the abdominal wall into the bladder under visualization. The obturator was removed and a 16 Fr wright catheter placed. 7cc was used to inflate the balloon. The external portion of the trocar was removed. Dressing was placed, the bladder was emptied, and a drainage bag was attached. Attention was then directed towards the prostate and the polypoid lesion that was obstructing the bulbar urethra. Using the GreenLight laser at a setting of 80 debris was removed and ablated from around the prostatic fossa. Small incisions were made at the 5 and 7 o'clock position in order to define the prostate. The prostate had lost much of it is normal architecture. The verumontanum was effectively ablated by the cancer. There were polypoid extensions particularly on the left side running down into the bulbar urethra and creating obstruction. This entire area was ablated with the GreenLight laser. We stopped multiple times to irrigate out the bladder and make sure this was clear. We were able to redefine the urethral passage and ablate much of the dystrophic growth into the urethra. Total joules 55 kJ, time 12:32 Tissue was irrigated free and will be sent for pathology Once ablation was completed the scope was removed. A [address] catheter with 30 cc balloon was placed. Gentle traction was applied which were remain until the patient arrives in the recovery area. A 2 L bag was attached to the Wright catheter. Patient tolerated the procedure well and was extubated in the operating room and transferred in stable condition to the recovery area. Pathology: Prostate tissue with debris Drains: Urethral Wright catheter with suprapubic tube catheter.
[2024-11-21] MEDS: fentaNYL citrate/PF 100 MCG/2 ML VIAL 50 MCG IVPUSH ×4 (13:55→14:10)
[2024-11-21] MEDS: HYDROmorphone HCl 0.5 MG/0.5 ML SYRINGE 0.25 MG IVPUSH ×6 (14:15→14:40)
[2024-11-21] MEDS: Morphine Sulfate ER 30 MG TABLET.ER PO (20:07)
[2024-11-21] MEDS: oxyCODONE HCl Immed Release 5 MG TABLET PO (22:06)
--- NOTE | 2024-11-21 22:15 | PHA.MEDREC ---
Addendum entered by Laura Montano RPh 11/21/24 22:27: reviewed by [facility]. Original Note: Pharmacy Consult ? Medication Reconciliation Pharmacy has completed the medication reconciliation. Spoke with patient utilizing fire investigator and he confirmed his medications. He confirmed he is using the Morphine once every 12 hours and confirmed the dose increased from 15mg to 30mg in the last 2 weeks. He confirmed he is still taking the Oxycodone 5mg tab and confirmed he takes it every 8 hours absolutely as needed for pain. He confirmed he is not taking the Casodex anymore and has not for a while and is not taking any cancer medications at this time. He confirmed he last took his medications yesterday.
[2024-11-22 03:49] VITALS: BP 146/71; PULSE 99; RESP 18; TEMP 36.4; O2SAT 96
[2024-11-22] MEDS: Lactated Ringers 1,000 ML 100 ML IVCONT (04:56)
[2024-11-22 07:21] VITALS: BP 154/67; PULSE 80; RESP 16; TEMP 36.7; O2SAT 93
[2024-11-22] MEDS: Morphine Sulfate ER 30 MG TABLET.ER PO ×2 (07:33→20:35)
--- NOTE | 2024-11-22 09:22 | HO.POSTANES ---
Post Anesthesia Evaluation Post Anesthesia Evaluation Date of Service: 11/22/24 Vital Signs: Vital Signs Temp Pulse Resp BP Pulse Ox O2 Del Method 11/22/24 07:21 98.0 F 80 16 154/67 H 93 Room Air 11/22/24 03:49 97.5 F 99 18 146/71 H 96 Room Air Anesthesia: General Mental Status: Awake Pain Control: Satisfactory Nausea/Vomiting: None Hydration: Adequate Anesthesia-Related Issues: No Anes. Related Issues
[2024-11-22] MEDS: oxyCODONE HCl Immed Release 5 MG TABLET PO ×2 (10:45→14:48)
--- NOTE | 2024-11-22 11:14 | MHC.CM.PN ---
PT HAS A SUPPORTIVE FAMILY HAD NO PREADMISSION SERVICES HE IS REQUESTING A VNA WHEN DCD HE HAS A RIDE HOME WHEN DCD DC PLAN HOME
[2024-11-22 15:13] VITALS: BP 151/66; PULSE 85; RESP 22; TEMP 37.1; O2SAT 96
--- NOTE | 2024-11-22 15:59 | MHC.CM.PN ---
lore notified of pts referral to [facility]
--- NOTE | 2024-11-22 16:20 | P.PNUR_ITS ---
Subjective Subjective Date of Service: 11/22/24 Interval history: Improved today Some degree of mild hematuria Will stay the night for VNA and public health social worker assessment Discharge tomorrow Physical Exam Vital Signs: Vital Signs: Last Vital Signs Temp 98.7 F 11/22/24 15:13 Pulse 85 11/22/24 15:13 Resp 22 H 11/22/24 15:13 BP 151/66 H 11/22/24 15:13 Pulse Ox 96 11/22/24 15:13 O2 Del Method Room Air 11/22/24 15:13 BMI result Body Mass Index 23.4 Const: General: cooperative, healthy appearing, comfortable and no acute distress Orientation/consciousness: patient oriented x3 HEENT: Face and sinus: Yes normal facial exam Mouth: moist mucous membranes Neck: Neck: Yes normal visual inspection, Yes full ROM and Yes trachea midline Chest: Chest palpation & inspection: normal inspection of the chest Resp: Effort & Inspection: normal respiratory effort, able to speak in complete sentences and no respiratory distress GI: Inspection: Yes normal to inspection Back/Spine/Pelvis: Cervical Spine: normal cervical lordosis Thoracic/Lumbar Spine: thoracic and lumbar spine normal to inspection Skin: General skin exam: no rashes or lesions noted Neuro: General: patient oriented x3, tone normal and moves all extremities Extrem: General: Yes normal to inspection and Yes capillary refill normal Progress Note: A&P Assessment and plan (1) Prostate cancer metastatic to intrapelvic lymph node: Status: Acute (2) Urinary retention with incomplete bladder emptying: Status: Acute Plan Mccurdy to drainage Plan for discharge tomorrow Time Spent With Patient Time: Total time managing care of this patient today ____ minutes.
[2024-11-22] MEDS: Docusate Sodium 100 MG CAPSULE PO (17:11)
[2024-11-22] MEDS: Sennosides 8.6 MG TABLET 17.2 MG PO (17:11)
[2024-11-22 19:19] VITALS: BP 172/76; PULSE 89; RESP 22; TEMP 37.7; O2SAT 95
[2024-11-22 20:29] VITALS: BP 168/70; TEMP 37.5
[2024-11-23 00:05] VITALS: RESP 16
[2024-11-23 03:12] VITALS: BP 153/72; PULSE 91; RESP 16; TEMP 37.1; O2SAT 93
[2024-11-23 08:00] VITALS: BP 128/61; PULSE 87; RESP 18; TEMP 36.9; O2SAT 92
[2024-11-23] MEDS: Morphine Sulfate ER 30 MG TABLET.ER PO ×2 (08:06→20:03)
[2024-11-23 11:00] VITALS: O2SAT 94
--- NOTE | 2024-11-23 12:50 | PM.DS ---
DS: Providers Provider Date of Service: 11/21/24 Date of admission: 11/21/24 16:14 Date of discharge: 11/23/24 Primary care physician: Elvira Ramachandran MD DS: Diagnosis Discharge Diagnosis (1) Prostate cancer metastatic to intrapelvic lymph node: Status: Acute (2) Urinary retention with incomplete bladder emptying: Status: Acute DS: Summary Hospital Course Hospital Course: Patient admitted on 11/21/2024 for suprapubic tube placement and laser local control of advanced prostate cancer causing hematuria. Due to old age and fragility remained in hospital for 48 hours. Mccurdy catheter was removed prior to discharge. Status at Discharge Functional status at discharge: independent ambulation Overall status at discharge: patient is back to baseline Time Attestation Total time managing care of this patient today: 30 mintues. Discharge Coordination Time (in mins): 15 Quality: Safe Use of Opioids Does Pt have an Active Cancer Diagnosis on the Problem List?: Yes Opioid Measure Date for [facility] Report: 10/24/24 Opioid Measure Time for [facility] Report: 12:52 Quality: Stroke Does the patient have a stroke diagnosis?: No Physical Exam Vital Signs: Vital Signs: Last Vital Signs Temp 98.4 F 11/23/24 08:00 Pulse 87 11/23/24 08:00 Resp 18 11/23/24 08:00 BP 128/61 11/23/24 08:00 Pulse Ox 94 11/23/24 11:00 O2 Del Method Room Air 11/23/24 11:00 BMI result Body Mass Index 23.4 DS: Data Data Completed and Pending Pending studies at discharge: Pending at discharge 11/21/24 13:25 Surgical [PTH] Routine Discharge Plan Discharge Anticipated Discharge Date/Time: 11/23/24 12:49 Patient Disposition: Home, Self-Care Discharge Diagnosis: Metastatic prostate cancer, urinary retention Referrals: Elvira Ramachandran MD [Primary Care Provider] - 1 Week Discharge Medications: New methenamine mandelate 1 gram tablet 1 g PO ONCE 90 Days Qty: 90 0RF Rx Instructions: administer after meals and at bedtime Continued morphine 30 mg Tablet Extended Release 30 mg PO Q12H 30 Days Qty: 60 0RF Rx Instructions: Partial Fill upon patient request. oxycodone 5 mg Tablet 5 mg PO Q8H PRN (Reason: Severe Pain (Scale Score 7-10)) Qty: 30 0RF Rx Instructions: Partial Fill upon patient request. sennosides [senna] 8.6 mg Tablet 8.6 mg PO BEDTIME PRN (Reason: Constipation ) cyanocobalamin (vitamin B-12) [Vitamin B-12] 100 mcg Tablet 100 mcg PO DAILY ascorbic acid (vitamin C) 1,000 mg tablet 1 g PO DAILY 90 Days Qty: 90 1RF Discharge Orders: Discharge Order (Routine); Ordered 11/23/24 Ordered By: lAexis Robertson Diet: Advance to usual diet Activity on Discharge: As tolerated Print Language: Lithuanian Care Plan Goals: Suprapubic tube Health Concerns: Suprapubic tube Plan of Treatment: Suprapubic tube Assessment: Suprapubic tube Patient Instructions: How to Care for Your Suprapubic Catheter (DC)
--- NOTE | 2024-11-23 13:50 | P.F2F_ITS ---
Service Date Service Date: 11/23/24 Encounter Date of encounter: 11/23/24 Encounter: Post procedure Reasons for Services Signs and symptoms assessed: Urinary retention with hematuria Post procedure with suprapubic catheter Needs safety check and ongoing evaluation of suprapubic tube to ensure he understands how to empty bladder and maintain tube Reason for longterm: postoperative assessment and/or care and GI/ assessment MD Overseeing Care: Alexis Robertson Homebound: Leaving the home is medically contraindicated at this time without the asist of a device and/or another person due th the listed conditions above and below. Reason homebound: unsteady gait / fall risk, poor balance / fall risk and weakness related to hospital stay Homebound supporting statement: 79-year-old male with metastatic prostate cancer and difficulty with ambulation and unsteady gait Certification: Based on the above findings, I certify that this patient is confined to the home and needs intermittent longterm care, physical therapy and/or speech therapy, or continues to need occupational therapy. The patient is under my care, and I have initiated the establishment of the plan of care. The patient will be followed by a physician who will periodically review the plan of care. Time Spent With Patient Time: Total time managing care of this patient today __30__ minutes.
--- NOTE | 2024-11-23 15:16 | MHC.CM.PN ---
PT DCD TODAY WITH JONNY ALL PAPERWORK FAXED TO [facility] READ AWARE THAT PT IS REFUSING TO LEAVE DR IYER COMING BACK TO SEE PT OFFERED PT AN AMB HOME PT SAYS THAT HE HAS TO HAVE HIS HOUSE CLEANED YESTERDAY HE WOULDNT LEAVE CAUSE HIS OIL WASNT BEING DELIVERED TILL NIGHTIME ..
[2024-11-23 17:24] VITALS: BP 153/62; PULSE 92; RESP 18; TEMP 37.2; O2SAT 95
[2024-11-23 19:09] VITALS: BP 148/66; PULSE 88; RESP 16; TEMP 36.8; O2SAT 93
[2024-11-23] MEDS: oxyCODONE HCl Immed Release 5 MG TABLET PO (21:28)
[2024-11-24 03:31] VITALS: BP 139/63; PULSE 82; RESP 16; TEMP 36.7; O2SAT 93
[2024-11-24 08:00] VITALS: BP 152/72; PULSE 87; RESP 14; TEMP 37.1; O2SAT 96
[2024-11-24] MEDS: Morphine Sulfate ER 30 MG TABLET.ER PO (09:21)
--- NOTE | 2024-11-24 11:24 | MHC.CM.PN ---
CM MET WITH PT WITH A LASER BEAM TRIM OPERATOR HE REPORTS HIS GRANDDAUGHTER WILL BE PICKING HIM UP AROUND 1300 HOURS HE IS AWARE HE WILL DC WITH JONNY SOSA NOTIFIED OF DC [facility]
[2024-11-24 14:52] VITALS: BP 160/60; PULSE 91; RESP 14; TEMP 37.1; O2SAT 97
== END 2024-11-24 15:16 | disposition home health service (06) | DRG 714 ==
LOC: HO.SSSA 16:15 → HO.S3 16:54
PROVIDERS: Admitting Provider Urology; PCP Internal Medicine; Visit Provider Urology
PROC: 0V508ZZ Destruction of Prostate, Via Natural or Artificial Opening Endoscopic (ICD-10-PCS; CPT 52648; principal; 2024-11-21 12:50)
DX: C61 Malignant neoplasm of prostate (principal); R33.9 Retention of urine, unspecified; R31.0 Gross hematuria; D50.9 Iron deficiency anemia, unspecified; Z79.899 Other long term (current) drug therapy
CPT/HCPCS: 88305; 88341; 88342; 93005; J0690; J1171; J2003; J2704; J2795; J3010; J7120

== ENCOUNTER → 2024-11-29 09:01 | Outpatient (BNVA) | payer OTHER, SELFPAY | PROVIDERS: PCP Internal Medicine; Visit Provider Urology | DX: R33.9 Retention of urine, unspecified (principal) | CPT/HCPCS: 51700 ==

== ENCOUNTER 2024-12-21 10:50 | Outpatient (AMB) | payer OTHER, SELFPAY ==
--- NOTE | 2024-12-21 10:52 | MHC.OFFVIS ---
Intake Visit Reasons: Greenlight, TURP F/U, SPT Change (First) Intake Note: Patient is present for GREENLIGHT/TURP/SPT CHANGE Urology Medication:METHENAMINE HIPPURATE,VITAMIN B12,VITAMIN C Antibiotic Allergy:NONE Blood Thinner:NONE Digital Marketing Coordinator Required: No Allergies aspirin [ASPIRIN] Allergy (Unknown, Verified 12/21/24 10:53) UNKNOWN HPI Comments Details: Leo is a pleasant Tongan-speaking male. He is a patient of Dr. Ramachandran. 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 Tongan translation provided in office Here for SPT change Has not attended radiation oncology appointment at this point Using suprapubic tube in emptying every 4-6 hours Change to [address] [place] - managing total androgen blockade - denosumab and antiandrogen Will refer to [facility] radiation oncology for MARVIN 177 assessment as has bony pain through left chest Also to assess possibility of XRT to pelvis for control of possible rectal invasion GnRH - 10/13/24 Labs - 09/29/24 39, 10/21/24 61, 10/27/24 37, 12/13 7.7 Imaging - 10/15 PSMA PET shows extensive bony sclerotic metastatic disease and question of local invasion of rectum Multiple urologic conditions Primary issue is urinary retention Failed multiple voiding trials through [facility] No documentation of medications to help with bladder emptying Multiple prior urinary tract infections Bladder retention with recurrent UTI Multiple prior episodes of urinary retention. One sufficiently serious 2 to cause bilateral hydronephrosis Re-initiate finasteride Initiate alpha-joslyn Start methenamine vitamin-C for suppression Discussed GreenLight laser prostate Prostate cancer grade group 3, high volume disease initial PSA 84 Initial diagnosis 04/2022 - Per [facility] note 09/01 cores Lisa 4 + 3, [address] scan negative for adenopathy - follow-up subsequent question of pelvic lymph node No bone scan performed - incomplete staging Underwent GnRH until end 2022 COUNT INCLUDES THE [facility] Medical History (Updated 12/02/24 @ 00:02 by Roseanne Madrid) Prostate cancer Seizures Chronic retention of urine Abnormal prostate specific antigen Dysuria Nodular prostate Gross hematuria Hypertension Surgical History History of bladder surgery History of prostate biopsy Social History Household Members: None Housing: Apartment Are you a primary child adolescent care to a significant other at home: No Do you presently have visiting nurse or other home services: No Alcohol intake: never Patient Tobacco Use Status: Former Tobacco user Tobacco use type: Cigarette service: No Current occupational status: unemployed and retired Current occupation: right handed Office Procedures Bladder/Catheter Procedure Details: 18 Fr SPT change 10 cc balloon 79701-Ykyrim of bladder tube Procedure code (CPT) selection complete Assessment & Plan Assessment & Plan (1) Prostate cancer metastatic to intrapelvic lymph node: Code(s): C61 - Malignant neoplasm of prostate; C77.5 - Secondary and unspecified malignant neoplasm of intrapelvic lymph nodes Category: Medical (2) Urinary retention with incomplete bladder emptying: Code(s): R33.9 - Retention of urine, unspecified Category: Medical Plan Monthly follow-up nursing suprapubic tube change Orders: Orders AMB Bladder/Catheter Procedure Today R33.9 - Retention of urine, unspecified Patient Instructions: This note is constructed using voice recognition software. While every effort has been made to ensure accuracy gynecologist errors may have been included. Imaging studies, laboratory and physical exam results were discussed and reviewed in detail. No major barriers to patient understanding were identified. An opportunity to ask questions regarding the treatment plan was provided. All questions were answered. The patient expressed understanding and agreement with the above treatment plan. The patient is aware they should contact our office by phone for worsening of their current condition or the appearance of new urologic symptoms. Compliance is encouraged with any medications and followup testing that is ordered. It is a privilege to participate in the urologic care of your patient. If you have any questions or concerns regarding treatment for the above conditions, or other urologic issues, please do not hesitate to contact me. The office telephone contact is [phone]. Sincerely, Dr Alexis Robertson MD, [facility] - Urology Compassionate Specialist Care for the Genitourinary System Coding Level of Care Code Est Pt Level 3 (28297) Complex EM visit Add On G2211 Diagnoses Prostate cancer metastatic to intrapelvic lymph node C61; C77.5 Urinary retention with incomplete bladder emptying R33.9 CPT Codes Bladder/Catheter Procedure - CPT: 70699-Nmqzle of bladder tube ([id number])
--- OUTSIDE RECORDS SUMMARY | 2024-12-21 12:58 | XMS_ITS | Clinical Summary ---
Author Organization Unknown Care Team Providers Care Coil Repair Technician Name Role Phone BHUMIKA MURRAY, SUZY Unavailable Unavailable JESSICA RN, MG Unavailable Unavailable BRITTON RN, CLARISA Unavailable Unavailable Payers Payer Name Policy Type Policy Number Effective Date Expira tion Date [facility] CCN OPTUM PROGRAM - PDGM Problems Condition Name Condition Details Condition Category Status Onset Date Resolution Date Last Treatment Date Treating Clinician Comments SECONDARY MALIGNANT NEOPLASM OF BONE Active 09-21 00:00: 00 MALIGNANT NEOPLASM OF PROSTATE Active 09-21 00:00: 00 EPILEPSY, UNSP, NOT INTRACTABLE, WITHOUT STATUS EPILEPTICUS Active 09-21 00:00: 00 ESSENTIAL (PRIMARY) HYPERTENSION Active 09-21 00:00: 00 ATHSCL HEART DISEASE OF [place] CORONARY ARTERY W/O ANG PCTRS Active 09-21 00:00: 00 OBSTRUCTIVE SLEEP APNEA (ADULT) (PEDIATRIC) Active 09-21 00:00: 00 GENERALIZED ANXIETY DISORDER Active 09-21 00:00: 00 UNSPECIFIED OSTEOARTHRIT IS, UNSPECIFIED SITE Active 09-21 00:00: 00 RETENTION OF URINE, UNSPECIFIED Active 09-21 00:00: 00 OLECRANON BURSITIS, LEFT ELBOW Active 09-21 00:00: 00 I/I REACT D/T INDWELLING URETHRAL CATHETER, SUBS Active 09-21 00:00: 00 PERSONAL HISTORY OF NICOTINE DEPENDENCE Active 09-21 00:00: 00 Allergies, Adverse Reactions, Alerts Allergy Name Allergy Type Status Severity Reaction(s) Onset Date Inactive Date Treating Clinician Comments NKA Propensity to adverse reactions Active 2024-11 14:13:5 4 Medications Ordered Medication Name Filled Medication Name Start Date Stop Date Current Medication? Ordering Clinician Indication Dosage Frequency Signature (SIG) Comments Components morphine ER 30 mg tablet,exte nded release 11-21 00:00: 00 11-25 00:00 :00 No [id number] Per instruc tions Per instructio ns (route: oral) Med Classific ation: Analgesic , Anti-infl ammatory or Antipyret ic morphine ER 15 mg tablet,exte nded release - 00:00: 00 12-09 23:59 :00 No [id number] Per instruc tions EVERY 12 HOURS Per instructio ns EVERY 12 HOURS (route: oral) Med Classific ation: Analgesic , Anti-infl ammatory or Antipyret ic acetaminoph en 500 mg tablet 11-25 00:00: 00 Yes [id number] 2 tablet 3 TIMES DAILY 2 tablet 3 TIMES DAILY (route: oral) Med Classific ation: Analgesic , Anti-infl ammatory or Antipyret ic cyanocobala min (vitamin B-12) 2,500 mcg tablet 11-25 00:00: 00 Yes [id number] 1 tablet DAILY 1 tablet DAILY (route: oral) Med Classific ation: Electroly te Balance-N utritiona l Products docusate sodium 100 mg capsule 11-25 00:00: 00 Yes [id number] 1 capsule DAILY 1 capsule DAILY (route: oral) Med Classific ation: Gastroint estinal Therapy Agents lisinopril 20 mg tablet 11-25 00:00: 00 Yes [id number] 1 tablet DAILY 1 tablet DAILY (route: oral) Med Classific ation: Cardiovas cular Therapy Agents methenamine hippurate 1 gram tablet 11-25 00:00: 00 12-13 23:59 :00 No [id number] 1 tablet DAILY 1 tablet DAILY (route: oral) Med Classific ation: Genitouri nary Therapy oxycodone 5 mg tablet 11-25 00:00: 00 Yes [id number] 1 tablet EVERY 8 HOURS 1 tablet EVERY 8 HOURS (route: oral) Med Classific ation: Analgesic , Anti-infl ammatory or Antipyret ic senna 8.6 mg tablet 11-25 00:00: 00 Yes [id number] 2 tablet BEDTIME 2 tablet BEDTIME (route: oral) Med Classific ation: Gastroint estinal Therapy Agents Vitamin C 500 mg tablet 11-25 00:00: 00 Yes [id number] 2 tablet DAILY 2 tablet DAILY (route: oral) Med Classific ation: Electroly te Balance-N utritiona l Products Vitamin D3 50 mcg (2,000 unit) tablet 11-25 00:00: 00 Yes [id number] 1 tablet DAILY 1 tablet DAILY (route: oral) Med Classific ation: Electroly te Balance-N utritiona l Products morphine ER 30 mg tablet,exte nded release 12-09 00:00: 00 Yes [id number] 1 tablet EVERY 12 HOURS 1 tablet EVERY 12 HOURS (route: oral) Med Classific ation: Analgesic , Anti-infl ammatory or Antipyret ic methenamine mandelate 1 gram tablet 12-13 00:00: 00 Yes [id number] 1 tablet DAILY 1 tablet DAILY (route: oral) Med Classific ation: Genitouri nary Therapy Immunizations Ordered Immunization Name Filled Immunization Name Date Status Comments Refusal Reason REFUSED FLU, PPV 2024-11-25 00:00:00 Vital Signs Vital Name Observation Time Observation Value Commen ts Temperature 2024-12-14 10:49:00.000 98.7 [degF] Temperature 2024-12-09 11:24:00.000 97.6 [degF] Temperature 2024-12-01 11:26:00.000 97.5 [degF] Temperature 2024-11-26 21:53:00.000 97.8 [degF] BMI (%) 2024-11-26 21:49:25.000 23 kg/m2 Height 2024-11-26 21:49:18.000 70 [in_us] Pulse 2024-12-14 10:49:00.000 72 /min Pulse 2024-12-09 11:24:00.000 76 /min Pulse 2024-12-01 11:26:00.000 94 /min Pulse 2024-11-26 21:53:00.000 101 /min O2 Saturation (%) 2024-12-14 10:49:00.000 98 % O2 Saturation (%) 2024-12-09 11:24:00.000 94 % O2 Saturation (%) 2024-12-01 11:26:00.000 93 % O2 Saturation (%) 2024-11-26 21:53:00.000 97 % Respirations 2024-12-14 10:49:00.000 20 /min Respirations 2024-12-09 11:24:00.000 20 /min Respirations 2024-12-01 11:26:00.000 20 /min Respirations 2024-11-26 21:53:00.000 18 /min Weight (lbs) 2024-11-26 21:49:25.000 163 [lb_av] Systolic Blood Pressure 2024-12-14 10:49:00.000 128 mm [Hg] Systolic Blood Pressure 2024-12-09 11:24:00.000 112 mm [Hg] Systolic Blood Pressure 2024-12-01 11:26:00.000 122 mm [Hg] Systolic Blood Pressure 2024-11-26 21:53:00.000 148 mm [Hg] Diastolic Blood Pressure 2024-12-14 10:49:00.000 72 mm [Hg] Diastolic Blood Pressure 2024-12-09 11:24:00.000 68 mm [Hg] Diastolic Blood Pressure 2024-12-01 11:26:00.000 74 mm [Hg] Diastolic Blood Pressure 2024-11-26 21:53:00.000 72 mm [Hg] Plan of Treatment Planned Activity Planned Date Details Comments Future Scheduled Test SKILLED NU RSE TO EVALUATE PATIENT, IDENTIFY PRIMARY AND CO-MORBID CONDITIONS CODED PER CODING GUIDELINES, AND DEVELOP PATIENT SPECIFIC PLAN OF CARE THAT INCLUDES PATIENT GOAL FOR HOME HEALTH. [code = SKILLED NURSE TO EVALUATE PATIENT, IDENTIFY PRIMARY AND CO-MORBID CONDITIONS CODED PER CODING GUIDELINES, AND DEVELOP PATIENT SPECIFIC PLAN OF CARE THAT INCLUDES PATIENT GOAL FOR HOME HEALTH.] Future Scheduled Test SKILLED NU RSE TO REVIEW PATIENT MEDICATIONS. INSTRUCT PATIENT/CAREGIVER ON MONITORING OF EFFECTIVENESS, ADVERSE DRUG REACTIONS, SIDE EFFECTS OF ALL MEDICATIONS (PRESCRIPTION/-OTC), AND HOW AND WHEN TO REPORT PROBLEMS. [code = SKILLED NURSE TO REVIEW PATIENT MEDICATIONS. INSTRUCT PATIENT/CAREGIVER ON MONITORING OF EFFECTIVENESS, ADVERSE DRUG REACTIONS, SIDE EFFECTS OF ALL MEDICATIONS (PRESCRIPTION/-OTC), AND HOW AND WHEN TO REPORT PROBLEMS.] Future Scheduled Test SKILLED NU RSE TO ASSESS ANXIETY AND PROVIDE ASSISTANCE TO PATIENT FOR UNDERSTANDING AND MANAGEMENT OF FEELINGS. [code = SKILLED NURSE TO ASSESS ANXIETY AND PROVIDE ASSISTANCE TO PATIENT FOR UNDERSTANDING AND MANAGEMENT OF FEELINGS.] Future Scheduled Test SKILLED NU RSE MAY COLLECT URINE SAMPLE FOR URINE REAGENT STRIP TESTING AND/OR URINALYSIS WITH CS 1-3 PRN IF INDICATED FOR SIGNS AND SYMPTOMS OF UTI. IF REAGENT STRIP TEST IS POSITIVE FOR UTI, SKILLED NURSE TO TAKE URINE SAMPLE TO LAB FOR URINE CS AND REPORT RESULTS TO PHYSICIAN. [code = SKILLED NURSE MAY COLLECT URINE SAMPLE FOR URINE REAGENT STRIP TESTING AND/OR URINALYSIS WITH CS 1-3 PRN IF INDICATED FOR SIGNS AND SYMPTOMS OF UTI. IF REAGENT STRIP TEST IS POSITIVE FOR UTI, SKILLED NURSE TO TAKE URINE SAMPLE TO LAB FOR URINE CS AND REPORT RESULTS TO PHYSICIAN.] Future Scheduled Test SKILLED NU RSE FOR O/A AND TEACHING RELATED TO PROSTATE CANCER INCLUDING SIGNS AND SYMPTOMS OF DISEASE PROGRESSION, TREATMENT, AND MANAGEMENT OF POTENTIAL SIDE EFFECTS. [code = SKILLED NURSE FOR O/A AND TEACHING RELATED TO PROSTATE CANCER INCLUDING SIGNS AND SYMPTOMS OF DISEASE PROGRESSION, TREATMENT, AND MANAGEMENT OF POTENTIAL SIDE EFFECTS.] Future Scheduled Test SKILLED NU RSE FOR O/A, TEACHING, AND MANAGEMENT OF CAD. [code = SKILLED NURSE FOR O/A, TEACHING, AND MANAGEMENT OF CAD.] Future Scheduled Test SKILLED NU RSE TO INSTRUCT PATIENT/CAREGIVER AND PERFORM CARE AND MANAGEMENT OF INDWELLING URINARY CATHETER. SUPRAPUBIC CATHETER INSERTION WITH 22 FR CATHETER WITH 30 ML BALLOON VIA STERILE TECHNIQUE, CHANGE UNSPECIFIED DUE TO RECENT PLACEMENT AND PRN FOR LEAKING OR MALFUNCTIONING CATHETER. IRRIGATE URINARY CATHETER WITH 30-60CC NORMAL SALINE PRN BLOCKAGE/LEAKAGE, HEAVY SEDIMENT. 1 - 3 PRN [facility] VISITS FOR CATHETER CHANGE(S) AND/OR TROUBLESHOOTING. [code = SKILLED NURSE TO INSTRUCT PATIENT/CAREGIVER AND PERFORM CARE AND MANAGEMENT OF INDWELLING URINARY CATHETER. SUPRAPUBIC CATHETER INSERTION WITH 22 FR CATHETER WITH 30 ML BALLOON VIA STERILE TECHNIQUE, CHANGE UNSPECIFIED DUE TO RECENT PLACEMENT AND PRN FOR LEAKING OR MALFUNCTIONING CATHETER. IRRIGATE URINARY CATHETER WITH 30-60CC NORMAL SALINE PRN BLOCKAGE/LEAKAGE, HEAVY SEDIMENT. 1 - 3 PRN [facility] VISITS FOR CATHETER CHANGE(S) AND/OR TROUBLESHOOTING.] Future Scheduled Test SKILLED NU RSE FOR O/A, TEACHING AND MANAGEMENT OF URINARY RETENTION FOR EARLY IDENTIFICATION OF EXACERBATION OF DISEASE PROCESS [code = SKILLED NURSE FOR O/A, TEACHING AND MANAGEMENT OF URINARY RETENTION FOR EARLY IDENTIFICATION OF EXACERBATION OF DISEASE PROCESS] Future Scheduled Test SKILLED NU RSE FOR O/A OF RESPIRATORY SYSTEM TO IDENTIFY CHANGES ASSOCIATED WITH EXACERBATION AND TO PROVIDE SKILLED TEACHING ON MANAGEMENT OF ZECHARIAH PROCESS. [code = SKILLED NURSE FOR O/A OF RESPIRATORY SYSTEM TO IDENTIFY CHANGES ASSOCIATED WITH EXACERBATION AND TO PROVIDE SKILLED TEACHING ON MANAGEMENT OF ZECHARIAH PROCESS.] Future Scheduled Test SKILLED NU RSE TO INSTRUCT ON SAFETY MEASURES TO PREVENT INJURY SECONDARY TO SEIZURE DISORDER/IMPAIRED NEUROLOGICAL STATUS. [code = SKILLED NURSE TO INSTRUCT ON SAFETY MEASURES TO PREVENT INJURY SECONDARY TO SEIZURE DISORDER/IMPAIRED NEUROLOGICAL STATUS.] Future Scheduled Test SKILLED NU RSE TO PROVIDE TEACHING ON SIGNS AND SYMPTOMS AND MANAGEMENT OF HYPERTENSION. [code = SKILLED NURSE TO PROVIDE TEACHING ON SIGNS AND SYMPTOMS AND MANAGEMENT OF HYPERTENSION.] Future Scheduled Test SKILLED NU RSE FOR O/A AND SKILLED TEACHING RELATED TO SIGNS AND SYMPTOMS AND MANAGEMENT OF OA, LEFT ELBOW BURSITIS. [code = SKILLED NURSE FOR O/A AND SKILLED TEACHING RELATED TO SIGNS AND SYMPTOMS AND MANAGEMENT OF OA, LEFT ELBOW BURSITIS.] Future Scheduled Test VIRTUAL SIT FREQUENCY: 3-4 PRN VIRTUAL VISITS FOR HIGH RISK ASSESSMENTS AND/OR CHANGE IN STATUS MAY BE PERFORMED UTILIZING TELECOMMUNICATIONS SYSTEM TO OPTIMIZE SKILLED SERVICES FURNISHED ON THE PLAN OF CARE. SKILLED NURSE TO ESTABLISH SUPPORT MEASURES TO MINIMIZE RISK OF REHOSPITALIZATION, AND INSTRUCT PATIENT/CAREGIVER ON METHODS TO REDUCE AVOIDABLE HOSPITALIZATION. [code = VIRTUAL VISIT FREQUENCY: 3-4 PRN VIRTUAL VISITS FOR HIGH RISK ASSESSMENTS AND/OR CHANGE IN STATUS MAY BE PERFORMED UTILIZING TELECOMMUNICATIONS SYSTEM TO OPTIMIZE SKILLED SERVICES FURNISHED ON THE PLAN OF CARE. SKILLED NURSE TO ESTABLISH SUPPORT MEASURES TO MINIMIZE RISK OF REHOSPITALIZATION, AND INSTRUCT PATIENT/CAREGIVER ON METHODS TO REDUCE AVOIDABLE HOSPITALIZATION.] Future Scheduled Test PATIENT ERICKSON S A RISK OF HOSPITALIZATION AND ED USE. SKILLED NURSE TO ESTABLISH SUPPORT MEASURES TO MINIMIZE RISK OF HOSPITALIZATION AND ED USE, AND INSTRUCT PATIENT/CAREGIVER ON METHODS TO REDUCE AVOIDABLE HOSPITALIZATION AND ED USE. [code = PATIENT HAS A RISK OF HOSPITALIZATION AND ED USE. SKILLED NURSE TO ESTABLISH SUPPORT MEASURES TO MINIMIZE RISK OF HOSPITALIZATION AND ED USE, AND INSTRUCT PATIENT/CAREGIVER ON METHODS TO REDUCE AVOIDABLE HOSPITALIZATION AND ED USE.] Future Scheduled Test SKILLED NU RSE TO PROVIDE INSTRUCTION TO PATIENT/CAREGIVER RELATED TO DISCHARGE PLANNING. [code = SKILLED NURSE TO PROVIDE INSTRUCTION TO PATIENT/CAREGIVER RELATED TO DISCHARGE PLANNING.] Future Scheduled Test SKILLED NU RSE TO PERFORM ENVIRONMENTAL SAFETY RISK ASSESSMENT AND FALL RISK ASSESSMENT AND PROVIDE INSTRUCTION TO IMPLEMENT ENVIRONMENTAL SAFETY AND FALL PREVENTION STRATEGIES THROUGHOUT THE CERTIFICATION PERIOD. SKILLED NURSE WILL MAINTAIN SITUATIONAL AWARENESS AND WILL NOTIFY CLINICAL ROLL COATING MACHINE OPERATOR AND PHYSICIAN/PROVIDER WITH ANY CHANGE IN CONDITION. [code = SKILLED NURSE TO PERFORM ENVIRONMENTAL SAFETY RISK ASSESSMENT AND FALL RISK ASSESSMENT AND PROVIDE INSTRUCTION TO IMPLEMENT ENVIRONMENTAL SAFETY AND FALL PREVENTION STRATEGIES THROUGHOUT THE CERTIFICATION PERIOD. SKILLED NURSE WILL MAINTAIN SITUATIONAL AWARENESS AND WILL NOTIFY CLINICAL ROLL COATING MACHINE OPERATOR AND PHYSICIAN/PROVIDER WITH ANY CHANGE IN CONDITION.] Future Scheduled Test SKILLED NU RSE FOR OBSERVATION AND ASSESSMENT OF PATIENTS PAIN LEVEL AND EFFECTIVENESS OF PAIN MANAGEMENT REGIMEN. SKILLED NURSE TO INSTRUCT PATIENT/CAREGIVER REGARDING PHARMACOLOGIC AND NON-PHARMACOLOGIC PAIN CONTROL MEASURES. SKILLED NURSE TO REPORT TO PHYSICIAN IF PAIN IS UNCONTROLLED WITH CURRENT PAIN MANAGEMENT REGIMEN. [code = SKILLED NURSE FOR OBSERVATION AND ASSESSMENT OF PATIENTS PAIN LEVEL AND EFFECTIVENESS OF PAIN MANAGEMENT REGIMEN. SKILLED NURSE TO INSTRUCT PATIENT/CAREGIVER REGARDING PHARMACOLOGIC AND NON-PHARMACOLOGIC PAIN CONTROL MEASURES. SKILLED NURSE TO REPORT TO PHYSICIAN IF PAIN IS UNCONTROLLED WITH CURRENT PAIN MANAGEMENT REGIMEN.] Future Scheduled Test SKILLED NU RSE TO ASSESS PATIENT'S SKIN INTEGRITY AND INSTRUCT PATIENT/CAREGIVER ON MEASURES TO PREVENT PRESSURE ULCERS. [code = SKILLED NURSE TO ASSESS PATIENT'S SKIN INTEGRITY AND INSTRUCT PATIENT/CAREGIVER ON MEASURES TO PREVENT PRESSURE ULCERS.] Future Scheduled Test SKILLED NU RSE TO INSTRUCT PATIENT/CAREGIVER ON CARE AND MANAGEMENT OF SUPRAPUBIC CATHETER. SKILLED NURSE FOR SUPRAPUBIC CATHETER INSERTION/MAINTENANCE UTILIZING 22 FR 30CC CATHETER VIA STERILE TECHNIQUE, CHANGE ORDERED AND PRN FOR LEAKING OR MALFUNCTIONING. IRRIGATE SUPRAPUBIC CATHETER WITH 30-60CC NORMAL SALINE PRN BLOCKAGE/LEAKAGE, HEAVY SEDIMENT. 1 - 3 PRN [facility] VISITS FOR CATHETER CHANGE(S) AND/OR TROUBLESHOOTING. [code = SKILLED NURSE TO INSTRUCT PATIENT/CAREGIVER ON CARE AND MANAGEMENT OF SUPRAPUBIC CATHETER. SKILLED NURSE FOR SUPRAPUBIC CATHETER INSERTION/MAINTENANCE UTILIZING 22 FR 30CC CATHETER VIA STERILE TECHNIQUE, CHANGE ORDERED AND PRN FOR LEAKING OR MALFUNCTIONING. IRRIGATE SUPRAPUBIC CATHETER WITH 30-60CC NORMAL SALINE PRN BLOCKAGE/LEAKAGE, HEAVY SEDIMENT. 1 - 3 PRN [facility] VISITS FOR CATHETER CHANGE(S) AND/OR TROUBLESHOOTING.] Goal Patient Goal - I WANT TO GO BACK TO WORK Goal Provider Goal - A PLAN OF CARE WILL BE ESTABLISHED THAT MEETS PATIENT'S [facility] NEEDS AND INCLUDES PATIENT GOAL FOR HOME HEALTH. Goal Provider Goal - PATIENT/CAREGIVER WILL VERBALIZE UNDERSTANDING OF EDUCATION PROVIDED ON MEDICATIONS BY THE END OF THE CERTIFICATION PERIOD. Goal Provider Goal - SYMPTOMS OF ANXIETY ARE IDENTIFIED AND INTERVENTIONS INITIATED TO ENABLE PATIENT TO UNDERSTAND AND MANAGE FEELINGS THROUGHOUT EPISODE. Goal Provider Goal - URINE SPECIMEN WILL BE OBTAINED PRN FOR SIGNS AND SYMPTOMS OF UTI AND RESULTS WILL BE REPORTED TO PHYSICIAN THROUGHOUT THE CERTIFICATION PERIOD. Goal Provider Goal - PATIENT/CAREGIVER WILL VERBALIZE/DEMONSTRATE MANAGEMENT OF PROSTATE CANCER/NEOPLASM) CANCER/NEOPLASM DISEASE AND THE SIDE EFFECTS OF TREATMENTS DURING THIS EPISODE. Goal Provider Goal - PATIENT/CAREGIVER WILL VERBALIZE/DEMONSTRATE MANAGEMENT OF CARDIAC DISEASE PROCESS AND EXACERBATIONS WILL BE IDENTIFIED AND PROMPTLY REPORTED THROUGHOUT THE CERTIFICATION PERIOD. Goal Provider Goal - PATIENT WILL VERBALIZE TOLERANCE OF CATHETER CHANGE AND KNOWLEDGE OF REQUIRED CARE TO MANAGE INDWELLING URINARY CATHETER WITHOUT COMPLICATIONS BY THE END OF THE CERTIFICATION PERIOD. Goal Provider Goal - PATIENT/CAREGIVER WILL VERBALIZE UNDERSTANDING OF GENITOURINARY DISEASE PROCESS, AND EXACERBATIONS OF GENITOURINARY DISEASE WILL BE PROMPTLY IDENTIFIED FOR EARLY INTERVENTION THROUGHOUT THE CERTIFICATION PERIOD. Goal Provider Goal - PATIENT/CAREGIVER WILL VERBALIZE/DEMONSTRATE MANAGEMENT OF RESPIRATORY DISEASE PROCESS. CHANGES IN RESPIRATORY STATUS WILL BE IDENTIFIED AND REPORTED TO PHYSICIAN FOR PROMPT INTERVENTION THROUGHOUT THE CERTIFICATION PERIOD. Goal Provider Goal - PATIENT/CAREGIVER WILL VERBALIZE/DEMONSTRATE SEIZURE PRECAUTIONS AND CARE OF PATIENT TO PROMOTE SAFETY AND PREVENT INJURY BY THE END OF THE CERTIFICATION PERIOD. Goal Provider Goal - PATIENT/CAREGIVER WILL VERBALIZE SIGNS AND SYMPTOMS OF HYPERTENSION AND WILL BE ABLE TO DEMONSTRATE ABILITY TO MANAGE EXACERBATION BY END OF THE EPISODE. Goal Provider Goal - PATIENT/CAREGIVER WILL VERBALIZE UNDERSTANDING OF MUSCULOSKELETAL DISEASE INCLUDING SIGNS AND SYMPTOMS, MANAGEMENT, AND PRESCRIBED TREATMENT REGIMEN BY END OF EPISODE. Goal Provider Goal - PATIENT/CAREGIVER WILL UTILIZE VIRTUAL VISITS TO ACHIEVE GOALS OUTLINED ON THE PLAN OF CARE. PATIENT WILL HAVE SUPPORT MEASURES ESTABLISHED TO PREVENT HOSPITALIZATION AND PATIENT/CAREGIVER WILL VERBALIZE/DEMONSTRATE METHODS TO REDUCE AVOIDABLE HOSPITALIZATION THROUGHOUT THE CERTIFICATION PERIOD. Goal Provider Goal - PATIENT WILL HAVE SUPPORT MEASURES ESTABLISHED TO PREVENT HOSPITALIZATION AND ED USE AND PATIENT/CAREGIVER WILL VERBALIZE/DEMONSTRATE METHODS TO REDUCE AVOIDABLE HOSPITALIZATION AND ED USE BY END OF EPISODE. Goal Provider Goal - PATIENT/CAREGIVER WILL VERBALIZE UNDERSTANDING OF DISCHARGE PLANNING INSTRUCTIONS BY DATE OF DISCHARGE. Goal Provider Goal - PATIENT/CAREGIVER WILL VERBALIZE/DEMONSTRATE EFFECTIVE ENVIRONMENTAL SAFETY AND FALL PREVENTION STRATEGIES, WILL REMAIN SAFE IN THE COMMUNITY, AND WILL BE FREE OF DANGER TO SELF AND OTHERS THROUGHOUT THE CERTIFICATION PERIOD. Goal Provider Goal - PATIENT/CAREGIVER WILL DEMONSTRATE UNDERSTANDING OF PHARMACOLOGIC AND NONPHARMACOLOGIC PAIN CONTROL MEASURES AND PATIENT WILL HAVE IMPROVEMENT IN PAIN INTERFERING WITH ACTIVITY EVIDENCED BY PAIN CONTROLLED AT LEVEL OF 7 OR LESS BY END OF CERTIFICATION PERIOD. Goal Provider Goal - PATIENT/CAREGIVER WILL VERBALIZE UNDERSTANDING OF PRESSURE ULCER PREVENTION BY END OF THE EPISODE. Goal Provider Goal - PATIENT WILL VERBALIZE TOLERANCE OF CATHETER CHANGE AND KNOWLEDGE OF REQUIRED CARE TO MANAGE SUPRAPUBIC CATHETER WITHOUT COMPLICATIONS BY THE END OF THE CERTIFICATION PERIOD Encounters Start Date/Time End Date/Time Encounter Type Admission Type Attending [facility] Care Department Encounter ID Discharge Date Discharge Status Discharge Condition Discharge Reason Percent Goals Met 2024-11-25 00:00:00 2025-01-23 00:00:00 Outpatient NEW ADMISSION [facility] [id number] 48.28
--- OUTSIDE RECORDS SUMMARY | 2024-12-21 12:58 | XMS_ITS | Encounter Summary ---
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 Organization [facility] Address [address] [place] [id number] Care Team Providers Care Residential Life Director Name Role Phone ROWENA ROY Primary [...] Name Patient's Relationship to Policy Segal [facility] MEDICARE ADVANTAGE [place] INDIV IDUAL - [place] Sep 21, 2023 [id number] [phone] GENET DUGAN S PATIENT [facility] [facility] MEDICARE ADVANTAGE [facility] Sep 21, 2023 [id number] [phone] DUGAN,GENET S PATIENT [place] MED[place] May 22, 2022 MEDICAI D [id number] MARVIN DUGANI S PATIENT MEDICARE ([facility]) MEDICARE () PART B May 22, 2022 PART B [id number] MARVIN DUGANI S PATIENT MEDICARE ([facility]) MEDICARE () PART A Feb 19, 2009 PART A [id number] GENET DUGAN S PATIENT MEDICARE PART D ([facility]) MEDICARE () PART D Jul 22, 2022 PART D [id number] GENET DUGAN S PATIENT [facility] ([place]) MEDICARE ADVANTAGE [facility] ([facility] Sep 21, 2022 [id number] GENET DUGAN S PATIENT [facility] ([place]) MEDICARE ADVANTAGE [facility] ([place]NR) Sep 21, 2022 [id number] GENET UDGAN PATIENT Selected Encounter This section includes the [...]
--- OUTSIDE RECORDS SUMMARY | 2024-12-21 12:59 | XMS_ITS ---
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 Address [address] [place] [id number] Care Team Providers Care Automatic Line Set Up Mechanic Name Role Phone ROWENA ROY Primary Care [...] Segal's Name Patient's Relationship to Policy Segal [facility] ([facility]) MEDICARE ADVANTAGE [place] INDIV IDUAL - [place] Sep 21, 2023 [id number] [phone] GENET DUGAN S PATIENT [facility]) MEDICARE ADVANTAGE [facility] ([facility]) Sep 21, 2023 [id number] [phone] MARVIN DUGANI S PATIENT [place]KY MEDICAID H[place]KY PLAN May 22, 2022 MEDICAI D [id number] GENET DUGAN S PATIENT MEDICARE ([facility]) MEDICARE (M) PART B May 22, 2022 PART B [id number] MARVIN DUGANI S PATIENT MEDICARE ([facility]) MEDICARE (M) PART A Feb 19, 2009 PART A [id number] [phone] DUGAN,GENET S PATIENT MEDICARE PART D (WNR) MEDICARE (M) PART D Jul 22, 2022 PART D [id number] [phone] GENET DUGAN PATIENT [facility] (WNR) MEDICARE ADVANTAGE [facility] (WNR) Sep 21, 2022 [id number] GENET DUGAN PATIENT [facility] (WNR) MEDICARE ADVANTAGE [facility] (WNR) Sep 21, 2022 [id number] GENET DUGAN PATIENT Selected Encounter This section includes the information on record at [place] for the Encounter. Date/Time Encounter Type Encounter Description Reason Pro vider Source Nov 22, 2024 11:51 AM Outpatient Encounter ADMIN PAT ACTIVTIES (MASNONCT) [...] 20 appointments. The data comes from all [facility]. Appointment Date/Time Appointment Type Appointme nt Facility Name Nov 24, 2024 03:00 PM AMBULATORY - MEDICINE [facility] Nov 25, 2024 08:00 AM AMBULATORY - MEDICINE [facility] Dec 13, 2024 01:30 PM AMBULATORY - MEDICINE [facility] Jan 02, 2025 10:00 AM AMBULATORY MEDICINE [facility] Apr 20, 2025 02:30 PM [facility] Active, Pending, and Scheduled Orders This section includes a listing of several types of active, pending, and scheduled orders, including clinic medications orders, diagnostic test orders, procedure orders and consult orders; where the start date of the order is 45 days before the date of the Encounter or 45 days after the date of theEncounter. The data comes from all [facility]. Test Date/Time Test Type Test Details Facility Name Nov 10, 2024 10:29 AM Consult Order [facility] Cons Button Decorating Machine Operator's Choice [facility] Nov 24, 2024 02:21 PM Consult Order [facility] Cons Button Decorating Machine Operator's [facility] Dec 13, 2024 12:00 AM Laboratory - Chemi stry Order BASIC METABOLIC PANEL (non-fasting) BLOOD (SST-SERUM) [facility] Dec 13, 2024 12:00 AM Laboratory - Chemi stry Order LIPID PANEL, NON FASTING BLOOD (SST-SERUM) [facility] Dec 13, 2024 12:00 AM Laboratory - Chemi stry Order LIVER FUNCTION BLOOD (SST-SERUM) [facility] Dec 13, 2024 12:00 AM Laboratory - Chemi stry Order CBC AND DIFF (AUTO) BLOOD (LAV-BLOOD) [facility] Dec 13, 2024 12:00 AM Laboratory - Chemi stry Order HEMOGLOBIN A1C PANEL BLOOD (LAV-BLOOD) [facility] Dec 13, 2024 12:00 AM Laboratory - Chemi stry Order TSH BLOOD (SST-SERUM) [facility] Dec 13, 2024 01:51 PM Consult Order TELE-EYE S CREENING CONSULT/SPOPC (OUTPT) Cons Button Decorating Machine Operator's [facility] Advance Directives: All historical and current [...] the Encounter. Date/Time Encounter Note(s) Provider Source Nov 22, 2024 12:03 PM SOCIAL WORK NOTE: LOCAL TITLE: QUERI-CCICM 20 QUESTION COMPLEXITY TOOL STANDARD TITLE: SOCIAL WORK NOTE DATE OF NOTE: NOV 22, 2024@12:03 ENTRY DATE: NOV 22, 2024@12:03:32 AUTHOR: SHAYNE ESCALERA COSIGNER: URGENCY: STATUS: COMPLETED Care Coordination & Integrated Case Management (CC&ICM) Complexity Assessment Tool Complexity Assessment The complexity assessment score is 28. The level of care coordination is MODERATE. Subtotals: The Self Management subtotal is 11. The Mental Health/Behavioral Health subtotal is 2. The Social subtotal is 3. The Medical/Physical subtotal is 12. 1. Ability to communicate and understand healthcare needs to obtain services (e.g. providers, teams, medication and equipment) Moderate difficulties (3-4 examples) 2. Access to healthcare within [facility] and[facility]or [facility] (e.g. geographical barriers, transportation, clinic availability and technology availability for virtual care) Moderate limitations/difficulties (3-4 barriers) 3. Experience with providers and healthcare team No problems and satisfied with treatment and healthcare team 4. Utilization Five or more admissions or four ED visits in the past 12 months 5. Shared Decision-Making Frequent engagement in shared decision-making in care planning and treatment interventions 6. Readiness to change Preparation for change with readiness to connect to resources 7. Engagement in goal setting Goals are identified, but partially engaged in achieving goals 8. Adherence to plan of care Adherence with plan of care with periodic reinforcement needed, (for example, sporadic untimely medication refills or doses, less than 5 no-shows or cancellations by in 12 months) 9. Coping Skills Mild difficulty with coping: Episodic/situational with potential difficulty for quick resolution 10. Mental health symptom severity No Mental Health history 11. Substance use No Substance use disorder history 12. Living Situation/Housing Stable housing but dependent on support of others 13. Employment/Financial No employment/financial concerns 14. Social support/relationships Limited social relationships or moderate engagement with leisure activities 15. Abuse/Neglect/Violence No abuse/neglect/violence suspected, reported or confirmed 16. Legal issues Past or current legal issues with minimal impact on quality of life 17. Functional (Activities of Daily Living (ADLS)/Instrumental Activities of Daily Living (IADLs) Independent for ADLs but not IADLs 18. Care coordination, complexity and integration Has Primary Care Provider with limited communication/coordinatio n/integration 19. Disease and symptom severity Requires specialty referrals for management; moderate signs or symptoms with major interference in well-being or daily life 20. Comorbid medical diagnoses and/or injuries Has 2-3 chronic diseases and/or serious persistent injuries Time Spent: 45 Role of Individual Completing Assessment: NISHI PEARL RN /mariana/ SHAYNE ESCALERA MSN RN NURSE COMPENSATION AGENT Signed: 11/24/2024 10:52 SHAYNE [facility]ALERA [place] [facility]
--- OUTSIDE RECORDS SUMMARY | 2024-12-21 12:59 | XMS_ITS | Encounter Summary ---
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 Address [address] [place] [id number] Care Team Providers Care Retail Cosmetics Sales Beauty Advisor Name Role Phone ROWENA ROY Primary Care [...] Segal's Name Patient's Relationship to Policy Segal [facility] MEDIC[facility] ADVANTAGE [place] INDIV IDUAL - [place] Sep 21, 2023 [id number] [phone] GENET DUGAN S [facility] ([facility]NR[facility] MEDICARE ADVANTAGE [facility] ([facility]) Sep 21, 2023 [id number] [phone] MARVIN DUGANI S PATIENT [place] MEDICAID H[place] PLAN May 22, 2022 MEDICAI D [id number] GENET DUGAN S PATIENT MEDICARE ([facility]) MEDICARE (M) PART B May 22, 2022 PART B [id number] GENET DUGAN S PATIENT MEDICARE (WNR) MEDICARE (M) PART A Feb 19, 2009 PART A [id number] GENET DUGAN S PATIENT MEDICARE PART D (WNR) MEDICARE (M) PART D Jul 22, 2022 PART D [id number] GENET DUGAN S PATIENT [facility] (WNR) MEDICARE ADVANTAGE [facility] (WNR) Sep 21, 2022 [id number] [phone] GENET DUGAN S PATIENT [facility]CR (WNR) MEDICARE ADVANTAGE [facility]CR (WNR) Sep 21, 2022 [id number] GENET DUGAN PATIENT Selected Encounter This [...] activities for the patient from all [place] [facility]. This section includes future appointments [...] 03, 2024 12:45 PM AMBULATORY - MEDICINE [place] [facility] [place] [facility] Jun 21, 2024 09:00 AM AMBULATORY - MEDICINE [place] [facility] [place] [facility] Aug 09, 2024 09:00 AM AMBULATORY - MEDICINE [place] [facility] [place] [facility] Aug 16, 2024 12:00 PM AMBULATORY - NONE [facility] [place] [facility] Aug 22, 2024 11:20 AM AMBULATORY - MEDICINE [place] [facility] [place] [facility] Aug 24, 2024 11:00 AM [facility] Sep 01, 2024 11:00 AM AMBULATORY - NONE [facility] [place] [facility] Sep 07, 2024 03:00 PM AMBULATORY - MEDICINE [place] [facility] [place] [facility] Nov 09, 2024 09:00 AM AM[facility]ULATORY [facility] [place] [facility] Nov 24, 2024 03:00 PM AMBULATORY - MEDICINE [facility] [place] [facility] Nov 25, 2024 08:00 AM AMBULATORY - MEDICINE [place] [facility] [place] [facility] Immunizations: All administered on the [...] Date/Time Current Smoking Status Comment Ray ity May 31, 2024 10:00 AM VA-TOBACCO NEVER USED [facility] Tobacco Use History This section includes a history of the smoking, or tobacco-related health factors, that were collected on or before the date of the Encounter. The data comes from the [place] facility where the Encounter took place. Date/Time Smoking Status/Tobacco Use Comment F acility Jun 23, 2023 09:00 AM VA-TOBACCO FORMER USER [facility] Jun 23, 2023 09:00 AM VA-TOBACCO QUIT 15 YRS OR MORE [facility] May 01, 2022 01:30 PM VA-TOBACCO FORMER USER [facility] May 01, 2022 01:30 PM VA-TOBACCO QUIT 15 YRS OR MORE [facility] Apr 15, 2021 03:00 PM VA-TOBACCO FORMER USER [facility] Apr 15, 2021 03:00 PM VA-TOBACCO QUIT 15 YRS OR MORE [facility] Oct 20, 2018 12:53 PM VA-TOBACCO FORMER USER [facility] Oct 20, 2018 12:53 PM VA-TOBACCO QUIT 15 YRS OR MORE [facility] Jul 03, 2017 10:33 AM QUIT TOBACCO USE > 7 YEARS AGO quit 25yrs ago [facility] February 13, 2016 08:46 AM LIFETIME NON-TOBACCO USER [facility] Advance Directives: All historical and current Section [...] PF Date Administered: May 31, 2024 10:00 Commissioner Conservation Of Resources: SANOFI PASTEUR Lot: [id number] Exp Date: Mar 20, 2025 ND: [id number] Admin Route/Site: INTRAMUSCULAR/LEFT DELTOID Dosage: 0.5mL Vaccine Information Statement(s): INFLUENZA(FLU) VACC(INACTIVATED OR RECOMBINANT)VIS Apr 26, 2021 ([place]) Order By: Policy Administered By: Jennifer Brandon [...] for next injection. Upcoming Appointments: 06/03/2024 12:45 [facility] CARE-OPHTHALMOLOGY 06/21/2024 09:00 CWM/SO/PACT 9 10/28/2024 10:00 [...] Not at all Suicide Screen: C-SSRS Screening [place] Suicide Severity Rating Scale (C-SSRS) screener 1. [...] NURSE (RN) Signed: 05/31/2024 10:09 JENNIFER BRANDON [facility]
--- OUTSIDE RECORDS SUMMARY | 2024-12-21 12:59 | XMS_ITS | Continuity of Care Document ---
Author Name [facility] Organization [facility] Care Team Providers Care Brim Molder Name Role Phone [facility] Unavailable Unavailable Problems Combined list of problems from Department of Defense and Veterans Affairs facilities. It does not include entries that were removed or entered in error. Problem Status Onset Date Problem Type Date of Resolution Comments Source Atypical chest pain Active Condition February 12, 2016 Entered By: ALICIA MACHADO Comment: [facility] [phone] PA OV 12-05-15May 2015 Entered By: ALICIA [...] 11 16 Entered By: ALICIA MACHADO Comment: [facility] [phone] PA OV 12-05-15 [facility] Essential hypertension Active Condition February 12, 2016 Entered By: ALICIA MACHADO Comment: [facility] [phone] PA OV 12-05-15 [facility] [place] [facility] Olecranon bursitis Active Condition [facility] Osteoarthritis (SNOMED CT 158005632) Active Condition Dec 07, 2017 Entered By: ALICIA MACHADO Comment: C/S worst at C6-C7 2017 Entered By: ALICIA MACHADO Comment: mod OA Interphalamgeal joint right thumb 09/06 [facility] Paraesthesia of lower extremity (SNOMED CT 848950560) Active Condition Apr 23, 2021 Entered By: [...] [facility] Diagnosis: ICD-10-CM Z74.1 Need for assistance with personal care Active Diagnosis [facility] ([id number]) Diagnosis: ICD-10-CM 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 [place] Diagnosis: ICD-10-CM C61 Malignant neoplasm of prostate Active Diagnosis [place] Diagnosis: ICD-10-CM Z46.0 Encounter for fit/adjst of spectacles and contact lenses Active Diagnosis [facility] Diagnosis: ICD-10-CM N50.9 Disorder of male genital organs, unspecified Active Diagnosis [place] Diagnosis: ICD-10-CM Z01.810 Encounter for preprocedural cardiovascular examination Active Diagnosis [place] Diagnosis: ICD-10-CM Z23 Encounter for immunization Active Diagnosis [place] Diagnosis: ICD-10-CM Z51.81 Encounter for therapeutic drug level monitoring Active Diagnosis [facility] Diagnosis: ICD-10-CM 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, unspecified Active Diagnosis [place] Diagnosis: ICD-10-CM L82.1 Other seborrheic keratosis Active Diagnosis [facility] Diagnosis: ICD-10-CM Z13.89 Encounter for screening for other disorder Active Diagnosis [facility] Diagnosis: ICD-10-CM L02.818 Cutaneous abscess of other sites Active Diagnosis [facility] Diagnosis: ICD-10-CM L02.212 Cutaneous abscess of back [any part, except buttock] Active Diagnosis [facility] Diagnosis: ICD-10-CM W06.XXXA Fall from bed, initial encounter Active Diagnosis [place] Diagnosis: ICD-10-CM H40.013 Open angle with borderline findings, low risk, bilateral Active Diagnosis [facility] NIHARIKA MCRAE [facility] Diagnosis: ICD-10-CM R97.20 Elevated prostate specific antigen [PSA] Active Diagnosis [place] Diagnosis: ICD-10-CM I10 Essential (primary) hypertension Active Diagnosis [place] Diagnosis: ICD-10-CM M54.59 Other low back pain Active Diagnosis 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 [place] Diagnosis: ICD-10-CM Z59.00 Homelessness unspecified Active Diagnosis [place] Diagnosis: ICD-10-CM Z00.01 Encounter for general adult medical exam w abnormal findings Active Diagnosis [facility] IE Medications Combined list of outpatient medications from [...] DAILY NEEDED FOR PAIN ORAL ACTIVE 10/21/2025 [id number] 5 Mahnaz ROY A 2024 300 [facility] IELD ACETAMINOPH EN 500MG TAB TAKE TWO TABLETS BY MOUTH EVERY 6 HOURS NEEDED FOR PAIN ORAL 03/27/2024 [id number] 4 Zoe MCLAIN 2023 100 [place] ASCORBIC ACID 500MG TAB TAKE TWO TABLETS BY MOUTH ONCE DAILY FOR VITAMIN/ NUTRITIO N SUPPLEME NT ORAL ACTIVE 09/09/2025 [id number] 4 MICHAEL IYER MD 2023 200 [facility] CAPSAICIN 0.025% CREAM,TOP APPLY A MODERATE AMOUNT TOPICALL Y FOUR TIMES A DAY FOR LOCALIZE D PAIN (USE FOR AT LEAST 4 WEEKS FOR EFFECT) TOPICA L ACTIVE 12/22/2024 [id number] 5 LUBA, APOLINARI O 2023 60 [place] CARBAMIDE PEROXIDE 6.5%/GLYCER IN SOLN,OTIC INSTILL 5 DROPS INTO THE LEFT EAR TWICE DAILY FOR EAR WAX BLOCKAGE AURICU LAR (OTIC) ACTIVE 01/12/2025 [id number] 5 Mahnaz ROY 2024 15 [place] CARBOXYMETH YLCELLULOSE NA 0.5% SOLN,OPH INSTILL 1 DROP INTO EACH EYE FOUR TIMES DAILY NEEDED FOR DRY EYE OPHTHA LMIC DISCONT INUED BY PROVIDE R 12/23/2023 [id number] 4 JEWEL,WALTER AH B 2022 45 [facility] CARBOXYMETH YLCELLULOSE NA 1% GEL,OPH APPLY 1 DROP INTO EACH EYE FOUR TIMES DAILY NEEDED FOR DRY EYE OPHTHA LMIC ACTIVE 12/31/2024 [id number] 4 JEWEL,NO AH B 2023 15 [facility] CEFUROXIME AXETIL 500MG TAB TAKE ONE TABLET BY MOUTH TWICE DAILY ORAL 03/23/2024 [id number] 4 PINKY HERRERA 2023 14 [place] CEPHALEXIN 500MG CAP TAKE ONE CAPSULE BY MOUTH THREE TIMES A DAY FOR INFECTIO N ORAL 10/02/2024 [id number] 4 KENNETH BANUELOS 2023 21 [facility] CHOLECALCIF ELMA 10MCG (400UNIT) TAB TAKE ONE TABLET BY MOUTH ONCE DAILY FOR VITAMIN SUPPLEME NTATION ORAL 11/22/2024 [id number] 4 Mahnaz ROY A 2023 90 [place] CIPROFLOXAC IN HCL 500MG TAB TAKE ONE TABLET BY MOUTH TWICE DAILY FOR 7 DAYS FOR INFECTIO N ORAL 09/24/2024 [id number] 4 ALEKSANDR,MAN SOOR 2023 14 [place] CYANOCOBALA MIN 250MCG TAB TAKE ONE TABLET BY MOUTH ONCE DAILY ORAL ACTIVE 08/25/2025 [id number] 4 Mahnaz ROY AVID A 2023 100 [place] CYCLOSPORIN E 0.05% (PF) EMULSION,OP H,0.4ML INSTILL 1 DROP INTO EACH EYE TWICE DAILY FOR DRY EYE THIS REPLACES XIIDRA OPHTHA LMIC ACTIVE 03/22/2025 [id number] 4 WALTER HOLLOWAY B 2023 60 [place] DOCUSATE NA 100MG CAP TAKE ONE CAPSULE BY MOUTH ONCE DAILY TO SOFTEN STOOL ORAL ACTIVE 01/25/2025 [id number] 5 Zoe WEST A 2024 100 [place] FINASTERIDE 5MG TAB TAKE ONE TABLET BY MOUTH ONCE DAILY FOR ENLARGED PROSTATE ORAL ACTIVE 04/01/2025 [id number] 4 MANSOOR VERDUZCO O 2023 90 [place] FLUTICASONE PROPIONATE 50MCG/SPRAY SOLN,NASAL, 16GM INSTILL 1 SPRAY INTO EACH NOSTRIL TWICE DAILY NASAL ACTIVE BRIJESH SELF IA 2015 [place] KETOTIFEN 0.025% SOLN,OPH INSTILL 1 DROP INTO EACH EYE TWICE DAILY (IF YOU WEAR CONTACT LENSES, WAIT 10 MINUTES BEFORE INSERTIN G LENSES) OPHTHA LMIC 12/04/2024 [id number] 4 JEWELNO B 2023 15 [facility] LEVOFLOXACI N 250MG TAB TAKE ONE TABLET BY MOUTH ONCE DAILY FOR 7 DAYS FOR INFECTIO N CAUSED BY BACTERIA ORAL 11/04/2024 [id number] 5 MICHAEL IYER MD [address] [facility] LIFITEGRAST 5% SOLN,OPH,0. 2ML INSTILL 1 DROP INTO EACH EYE TWICE DAILY OPHTHA LMIC DISCONT INUED BY PROVIDE R 12/31/2024 [id number] 4 JEWEL,NO AH B [address] [facility] LISINOPRIL 20MG TAB TAKE ONE TABLET BY MOUTH ONCE DAILY TO CONTROL BLOOD PRESSURE ORAL 12/04/2024 [id number] 4 MANSOOR VERDUZCO O 2023 90 [facility] IELD METHENAMINE HIPPURATE 1GM TAB TAKE ONE TABLET BY MOUTH ONCE DAILY ORAL ACTIVE 09/09/2025 [id number] 4 MICHAEL IYER MD [address] [facility] NALOXONE HCL 4MG/SPRAY SOLN,SPRAY, NASAL INSTILL 1 SPRAY ONE NOSTRIL ONE TIME NEEDED FOR OPIOID OVERDOSE CALL 911 WITH ADMINIST RATION. 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 WHILE TAKING THIS MEDICATI ON ORAL DISCONT INUED BY PROVIDE R 11/18/2024 [id number] 5 Mahnaz ROY A 2024 15 [facility] IELD SENNOSIDES 8.6MG TAB TAKE ONE TABLET BY MOUTH EVERY EVENING AT BEDTIME ORAL ACTIVE 01/25/2025 [id number] 5 Zoe WEST A 2024 100 [facility] IELD Allergies, Adverse Reactions, Alerts Combined list [...] Site Reaction Lot Number CVX Code Drug 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 Status Comments Source INFLUENZA, HIGH-DOSE, TRIVALENT, PF 2023 NIK BRANDON H LEFT DELTO ID [id number] 135 complet ed [place] HEP A, ADULT 2 2023 PAOLA FREDERICK LEFT DELTO ID [id number] 52 complet ed [place] COVID-19 (MODERNA), MRNA, LNP-S, PF, 50 MCG/0.5 ML (AGES 12+ YEARS) 2022 [place] DY LEFT DELTO ID [id number] 312 complet ed [place] HEP A, ADULT 1 2022 PAOLA FREDERICK RIGHT DELTO ID [id number] 52 complet ed [place] INFLUENZA, HIGH-DOSE, QUADRIVALENT 2022 [place] DY LEFT DELTO ID [id number] 197 complet ed [place] INFLUENZA, INJECTABLE, QUADRIVALENT, PRESERVATIVE FREE 2022 [place] DY LEFT DELTO ID [id number] 150 complet ed [place] COVID-19 (MODERNA), [...] DOSE 1 2020 207 complet ed MOD; [id number]; 1 [facility] [...] complet ed [facility] [place] [place] Results Combined list of recent chemistry, hematology [...] No comment entered. Ordering Provider: DANISHA ROY Report Released Date/Time: Aug 24, 2024 11:07 AM Reporting Lab: [facility] [place] [address] [address] Performing Lab: [facility] [place] [facility] [address] [facility] [address] [place] CBC AND DIFF (AUTO) ERYTHROCYT ES [#/VOLUME] IN BLOOD BY AUTOMATED COUNT 4.72 10*6/uL 4.23 - 5.66 08/24 Specimen Type: BLOOD No comment entered. Ordering Provider: DANISHA ROY A Report Released Date/Time: Aug 24, 2024 11:07 AM Reporting Lab: [facility] [place] [facility] [address] [facility] [address] Performing Lab: [facility] [address] [address] [place] CBC AND DIFF (AUTO) HEMOGLOBIN [MASS/VOLU ME] IN BLOOD 12.8 g/dL 12.8 - 17 08/24 Specimen Type: BLOOD No comment entered. Ordering Provider: DANISHA ROY A Report Released Date/Time: Aug 24, 2024 11:07 AM Reporting Lab: [facility] [place] [address] [address] Performing Lab: [facility] [address] [address] [place] CBC AND DIFF (AUTO) HEMATOCRIT [VOLUME FRACTION] OF BLOOD BY AUTOMATED COUNT 38.8 39.2 - 50.4 08/24 L Specimen Type: BLOOD No comment entered. Ordering Provider: DANISHA ROY A Report Released Date/Time: Aug 24, 2024 11:07 AM Reporting Lab: [facility] [place] [address] [address] Performing Lab: [facility] [place] [address] [address] [place] CBC AND DIFF (AUTO) MCV [ENTITIC VOLUME] BY AUTOMATED COUNT 82.2 fL 82 - 99 08/24 Specimen Type: BLOOD No comment entered. Ordering Provider: DANISHA ROY A Report Released Date/Time: Aug 24, 2024 11:07 AM Reporting Lab: [facility] [address] [address] Performing Lab: [facility] [address] [facility] [address] [place] CBC AND DIFF (AUTO) MCHC [MASS/VOLU ME] BY AUTOMATED COUNT 33.0 g/dL 30.8 - 35.1 08/24 Specimen Type: BLOOD No comment entered. Ordering Provider: DANISHA ROY A Report Released Date/Time: Aug 24, 2024 11:07 AM Reporting Lab: [facility] [address] [address] Performing Lab: [facility] TRN [address] [address] [place] CBC AND DIFF (AUTO) PLATELETS [#/VOLUME] IN BLOOD BY AUTOMATED COUNT 312 10*3/uL 140 - 360 08/24 Specimen Type: BLOOD No comment entered. Ordering Provider: DANISHA ROY A Report Released Date/Time: Aug 24, 2024 11:07 AM Reporting Lab: [facility] [address] [address] Performing Lab: [facility] TRN [address] [address] [place] CBC AND DIFF (AUTO) ERYTHROCYT E DISTRIBUTI ON WIDTH [RATIO] BY AUTOMATED COUNT 12.3 12.0 - 16.0 08/24 Specimen Type: BLOOD No comment entered. Ordering Provider: DANISHA ROY A Report Released Date/Time: Aug 24, 2024 11:07 AM Reporting Lab: [facility] TRN [address] [address] Performing Lab: [facility] TRN [address] [address] [place] CBC AND DIFF (AUTO) MONOCYTES [#/VOLUME] IN BLOOD BY AUTOMATED COUNT 0.39 10*3/uL 0.30 - 1.10 08/24 Specimen Type: BLOOD No comment entered. Ordering Provider: DANISHA ROY A Report Released Date/Time: Aug 24, 2024 11:07 AM Reporting Lab: [facility] TRN [address] [address] Performing Lab: [facility] [place] [facility] [address] [facility] [address] [place] CBC AND DIFF (AUTO) MCH [ENTITIC MASS] BY AUTOMATED COUNT 27.1 pg 26.2 - 32.6 08/24 Specimen Type: BLOOD No comment entered. Ordering Provider: DANISHA ROY A Report Released Date/Time: Aug 24, 2024 11:07 AM Reporting Lab: [facility] [place] [facility] [address] [facility] [address] Performing Lab: [facility] [place] [facility] [address] [facility] [address] [place] CBC AND DIFF (AUTO) NEUTROPHIL S/100 LEUKOCYTES IN BLOOD BY AUTOMATED COUNT 80.9 43.7 - 75.8 08/24 H Specimen Type: BLOOD No comment entered. Ordering Provider: DANISHA ROY A Report Released Date/Time: Aug 24, 2024 11:07 AM Reporting Lab: [facility] [place] [facility] [address] [facility] [address] Performing Lab: [facility] [place] [address] [address] [place] CBC AND DIFF (AUTO) LYMPHOCYTE S/100 LEUKOCYTES IN BLOOD BY AUTOMATED COUNT 12.2 14.0 - 42.3 08/24 L Specimen Type: BLOOD No comment entered. Ordering Provider: DANISHA ROY A Report Released Date/Time: Aug 24, 2024 11:07 AM Reporting Lab: [facility] [place] [facility] [address] [facility] [address] Performing Lab: [facility] [place] [address] [address] [place] CBC AND DIFF (AUTO) MONOCYTES/ 100 LEUKOCYTES IN BLOOD BY AUTOMATED COUNT 4.4 5.1 - 13.7 08/24 L Specimen Type: BLOOD No comment entered. Ordering Provider: DANISHA ROY A Report Released Date/Time: Aug 24, 2024 11:07 AM Reporting Lab: [facility] [place] [address] [address] Performing Lab: [facility] [address] [address] [place] CBC AND DIFF (AUTO) EOSINOPHIL S/100 LEUKOCYTES IN BLOOD BY AUTOMATED COUNT 1.6 0.4 - 6.8 08/24 Specimen Type: BLOOD No comment entered. Ordering Provider: DANISHA ROY A Report Released Date/Time: Aug 24, 2024 11:07 AM Reporting Lab: [facility] W[facility]N [address] [address] Performing Lab: [facility] [address] [address] [place] CBC AND DIFF (AUTO) BASOPHILS/ 100 LEUKOCYTES IN BLOOD BY AUTOMATED COUNT 0.7 0.1 - 2.0 08/24 Specimen Type: BLOOD No comment entered. Ordering Provider: DANISHA ROY A Report Released Date/Time: Aug 24, 2024 11:07 AM Reporting Lab: [facility] [address] [address] Performing Lab: [facility] [address] [address] [place] CBC AND DIFF (AUTO) NEUTROPHIL S [#/VOLUME] IN BLOOD BY AUTOMATED COUNT 7.15 10*3/uL 2.20 - 7.60 08/24 Specimen Type: BLOOD No comment entered. Ordering Provider: DANISHA ROY A Report Released Date/Time: Aug 24, 2024 11:07 AM Reporting Lab: [facility] [address] [address] Performing Lab: [place] [facility] [address] [address] [place] CBC AND DIFF (AUTO) LYMPHOCYTE S [#/VOLUME] IN BLOOD BY AUTOMATED COUNT 1.08 10*3/uL 1.00 - 3.20 08/24 Specimen Type: BLOOD No comment entered. Ordering Provider: DANISHA ROY A Report Released Date/Time: Aug 24, 2024 11:07 AM Reporting Lab: [facility] TRN [address] [address] Performing Lab: [facility] [address] [address] [place] CBC AND DIFF (AUTO) EOSINOPHIL S [#/VOLUME] IN BLOOD BY AUTOMATED COUNT 0.14 10*3/uL 0.03 - 0.44 08/24 Specimen Type: BLOOD No comment entered. Ordering Provider: DANISHA ROY A Report Released Date/Time: Aug 24, 2024 11:07 AM Reporting Lab: [facility] [place] [address] [address] Performing Lab: [facility] [address] [address] [place] CBC AND DIFF (AUTO) BASOPHILS [#/VOLUME] IN BLOOD BY AUTOMATED COUNT 0.06 10*3/uL 0.01 - 0.13 08/24 Specimen Type: BLOOD No comment entered. Ordering Provider: DANISHA ROY A Report Released Date/Time: Aug 24, 2024 11:07 AM Reporting Lab: [facility] [address] [address] Performing Lab: [facility] [address] [address] [place] CBC AND DIFF (AUTO) IMMATURE GRANULOCYT ES/100 LEUKOCYTES IN BLOOD BY AUTOMATED COUNT 0.2 0.0 - 0.7 08/24 Specimen Type: BLOOD No comment entered. Ordering Provider: DANISHA ROY A Report Released Date/Time: Aug 24, 2024 11:07 AM Reporting Lab: [facility] [place] [address] [address] Performing Lab: [facility] [address] [address] [place] CBC AND DIFF (AUTO) IMMATURE GRANULOCYT ES [#/VOLUME] IN BLOOD 0.02 10*3/uL 0.00 - 0.06 08/24 Specimen Type: BLOOD No comment entered. Ordering Provider: DNAISHA ROY A Report Released Date/Time: Aug 24, 2024 11:07 AM Reporting Lab: [facility] [address] [address] Performing Lab: [facility] [place] [facility] [address] [facility] [address] [place] CBC AND DIFF (AUTO) NRBC % 0.0 0.0 - 0.0 08/24 Specimen Type: BLOOD No comment entered. Ordering Provider: DANISHA ROY A Report Released Date/Time: Aug 24, 2024 11:07 AM Reporting Lab: [facility] [place] [facility] [address] [facility] [address] Performing Lab: [facility] [place] [facility] [address] [facility] [address] [place] CBC AND DIFF (AUTO) NRBC, ABS 0.00 10*3/uL 0.00 - 0.00 08/24 Specimen Type: BLOOD No comment entered. Ordering Provider: DANISHA ROY A Report Released Date/Time: Aug 24, 2024 11:07 AM Reporting Lab: [facility] [place] [address] [address] Performing Lab: [facility] [place] [address] [address] [place] MICROSCOP IC AUTOMATED , URINE LEUKOCYTES [#/AREA] IN URINE SEDIMENT BY MICROSCOPY HIGH POWER FIELD 0-5/[HP F] 0 - 5 08/24 Specimen Type: URINE Comment: If Glucose = >500 and Ketones are positive, please alert the Physician. Ordering Provider: ZAKI VERDUZCO Report Released Date/Time: Aug 09, 2024 09:43 AM Reporting Lab: [facility] [place] [address] [address] Performing Lab: [facility] [address] [address] [facility] [place] [facility] MICROSCOP IC AUTOMATED , URINE BACTERIA [#/AREA] IN URINE SEDIMENT BY MICROSCOPY HIGH POWER FIELD 1+/[HPF ] 08/24 Specimen Type: URINE Comment: If Glucose = >500 and Ketones are positive, please alert the Physician. Ordering Provider: ZAKI VERDUZCO Report Released Date/Time: Aug 09, 2024 09:43 AM Reporting Lab: [facility] [place] [facility] [address] [facility] [address] Performing Lab: [facility] [place] [facility] [address] [facility] [address] [facility] [place] [facility] MICROSCOP IC AUTOMATED , URINE TRIPLE PHOSPHATE CRYSTALS [PRESENCE] IN URINE SEDIMENT BY LIGHT MICROSCOPY MODERAT E/[HPF] 08/24 Specimen Type: URINE Comment: If Glucose = >500 and Ketones are positive, please alert the Physician. Ordering Provider: ZAKI VERDUZCO Report Released Date/Time: Aug 09, 2024 09:43 AM Reporting Lab: [facility] [place] [facility] [address] [facility] [address] Performing Lab: [facility] [facility] [address] [facility] [address] [facility] [place] [facility] MICROSCOP IC AUTOMATED , URINE ERYTHROCYT ES [#/AREA] IN URINE SEDIMENT BY MICROSCOPY HIGH POWER FIELD 6-10/[H PF] 0 - 3 08/24 H Specimen Type: URINE Comment: If Glucose = >500 and Ketones are positive, please alert the Physician. Ordering Provider: ZAKI VERDUZCO Report Released Date/Time: Aug 09, 2024 09:43 AM Reporting Lab: [facility] [place] [facility] [address] [facility] [address] Performing Lab: [facility] [place] [facility] [address] [facility] [address] [facility] [place] [facility] URINALYSI S COLOR OF URINE Light-B rown 08/24 Specimen Type: URINE Comment: If Glucose = >500 and Ketones are positive, please alert the Physician. Ordering Provider: ZAKI VERDUZCO Report Released Date/Time: Aug 09, 2024 09:43 AM Reporting Lab: [facility] [place] [facility] [address] [facility] [address] Performing Lab: [facility] [place] [facility] [address] [facility] [address] [facility] [place] [facility] URINALYSI S APPEARANCE OF URINE Turbid 08/24 Specimen Type: URINE Comment: If Glucose = >500 and Ketones are positive, please alert the Physician. Ordering Provider: ZAKI VERDUZCO Report Released Date/Time: Aug 09, 2024 09:43 AM Reporting Lab: [facility] [place] [address] [address] Performing Lab[facility] [place] [facility] [address] [facility] [address] [place] [facility] [facility] URINALYSI S GLUCOSE [MASS/VOLU ME] IN URINE Normalm g/dL 08/24 Specimen Type: URINE Comment: If Glucose = >500 and Ketones are positive, please alert the Physician. Ordering Provider: ZAKI VERDUZCO Report Released Date/Time: Aug 09, 2024 09:43 AM Reporting Lab: [facility] [place] [address] [address] Performing Lab: [facility] [place] [facility] [address] [facility] [address] [facility] [place] [facility] URINALYSI S KETONES [MASS/VOLU ME] IN URINE BY TEST STRIP NEGATIV Emg/dL 08/24 Specimen Type: URINE Comment: If Glucose = >500 and Ketones are positive, please alert the Physician. Ordering Provider: ZAKI VERDUZCO Report Released Date/Time: Aug 09, 2024 09:43 AM Reporting Lab: [facility] [facility] [address] [facility] [address] Performing Lab: [facility] [place] [address] [address] [place] [facility] [place] [facility] URINALYSI S ERYTHROCYT ES [PRESENCE] IN URINE SEDIMENT BY LIGHT MICROSCOPY LARGEmg /dL 08/24 Specimen Type: URINE Comment: If Glucose = >500 and Ketones are positive, please alert the Physician. Ordering Provider: ZAKI VERDUZCO Report Released Date/Time: Aug 09, 2024 09:43 AM Reporting Lab: [facility] [place] [facility] [address] [facility] [address] Performing Lab: [place] [facility] [place] [facility] [address] [facility] [address] [facility] [place] [facility] URINALYSI S PROTEIN [MASS/VOLU ME] IN URINE BY TEST STRIP 100 mg/dL 08/24 Specimen Type: URINE Comment: If Glucose = >500 and Ketones are positive, please alert the Physician. Ordering Provider: ZAKI VERDUZCO Report Released Date/Time: Aug 09, 2024 09:43 AM Reporting Lab: [place] [facility] [place] [facility] [address] [facility] [address] Performing Lab: [place] [facility] [place] [facility] [address] [facility] [address] [place] [facility] [place] [facility] URINALYSI S NITRITE [PRESENCE] IN URINE NEGATIV Emg/dL 08/24 Specimen Type: URINE Comment: If Glucose = >500 and Ketones are positive, please alert the Physician. Ordering Provider: ZAKI VERDUZCO Report Released Date/Time: Aug 09, 2024 09:43 AM Reporting Lab: [facility] [place] [facility] [address] [facility] [address] Performing Lab: [place] [facility] [place] [facility] [address] [facility] [address] [place] [facility] [place] [facility] URINALYSI S BILIRUBIN. TOTAL [PRESENCE] IN URINE NEGATIV Emg/dL 08/24 Specimen Type: URINE Comment: If Glucose = >500 and Ketones are positive, please alert the Physician. Ordering Provider: ZAKI VERDUZCO Report Released Date/Time: Aug 09, 2024 09:43 AM Reporting Lab: [place] [facility] [place] [facility] [address] [facility] [address] Performing Lab: [place] [facility] [place] [facility] [address] [facility] [address] [place] [facility] [place] [facility] URINALYSI S SPECIFIC GRAVITY OF URINE BY REFRACTOME TRY 1.007 1.016 - 1.022 08/24 L Specimen Type: URINE Comment: If Glucose = >500 and Ketones are positive, please alert the Physician. Ordering Provider: ZAKI VERDUZCO Report Released Date/Time: Aug 09, 2024 09:43 AM Reporting Lab: [facility] [place] [facility] [address] [facility] [address] Performing Lab: [facility] CENTERRLAUREL [facility]ENTERTRN [facility]ITALUSETS [address] [address] [facility]ENTERRLAUREL [facility]TRN [place] [facility] URINALYSI S PH OF URINE BY TEST STRIP 8.5 5.0 - 9.0 08/24 Specimen Type: URINE Comment: If Glucose = >500 and Ketones are positive, please alert the Physician. Ordering Provider: ZAKI VERDUZCO Report Released Date/Time: Aug 09, 2024 09:43 AM Reporting Lab: [facility]ENTERRLAUREL [facility]ENTERTR[facility] [place] [address] [address] Performing Lab: [facility] CENTERRLAUREL [facility]ENTERTRN [facility] [address] [address] [facility]ERRLAUREL [facility] CENTERTRN [place] [facility] URINALYSI S UROBILINOG EN [MASS/VOLU ME] IN URINE BY TEST STRIP Normalm g/dL <2.0 - 2.0 08/24 Specimen Type: URINE Comment: If Glucose = >500 and Ketones are positive, please alert the Physician. Ordering Provider: ZAKI VERDUZCO Report Released Date/Time: Aug 09, 2024 09:43 AM Reporting Lab: [facility] [place] [facility] [address] [facility] [address] Performing Lab: [facility] CENTERRLAUREL [facility]ENTERTRN [facility]USCHUSETS [address] [address] [facility]RL [place] [place] [facility] URINALYSI S LEUKOCYTE ESTERASE [PRESENCE] IN URINE BY TEST STRIP LARGE 08/24 Specimen Type: URINE Comment: If Glucose = >500 and Ketones are positive, please alert the Physician. Ordering Provider: ZAKI VERDUZCO Report Released Date/Time: Aug 09, 2024 09:43 AM Reporting Lab: [facility]ENTERRL [address] [address] Performing Lab: [facility] [address] [facility] [address] [facility] VITAMIN D 25-OH (Therapy monitor) 25-HYDROXY VITAMIN [...] additional information , please refer to [email or web address] [email or web address]/faq/FA Q199 (This link is being provided for information al/ educational purposes only.) This test was developed and its analytical performance characteris tics have been determined by [employer] [place]. It has not been cleared or approved by the U.S. Food and Drug Administrat ion. This assay has been validated pursuant to the CLIA regulations and is used for clinical purposes. This test was developed and its analytical performance characteris tics have been determined by [employer] [place]. It has not been cleared or approved by the U.S. Food and Drug Administrat ion. This assay has been validated pursuant to the CLIA regulations and is used for clinical purposes. Test Performed by [facility], [employer] [facility], [address] [place], [place] Dov Bahena M.D., Ph.D., Director of Laboratorie s , CLIA [id number] TEST PERFORMED AT: , Ordering Provider: ZAKI VERDUZCO Report Released Date/Time: Aug 08, 2024 10:54 AM Reporting Lab: [address] [address] Performing Lab: [facility] [address] VITAMIN D 25-OH (Therapy monitor) 25-HYDROXY VITAMIN [...] additional information , please refer to http://educ [email or web address] [email or web address]/faq/FA Q199 (This link is being provided for information al/ educational purposes only.) This test was developed and its analytical performance characteris tics have been determined by [employer] [place]. It has not been cleared or approved by the U.S. Food and Drug Administrat ion. This assay has been validated pursuant to the CLIA regulations and is used for clinical purposes. This test was developed and its analytical performance characteris tics have been determined by [employer] [place]. It has not been cleared or approved by the U.S. Food and Drug Administrat ion. This assay has been validated pursuant to the CLIA regulations and is used for clinical purposes. Test Performed by [facility], [employer] [place], [address] [place], [place] Dov Bahena M.D., Ph.D., Director of Laboratorie s , CLIA [id number] TEST PERFORMED AT: , Ordering Provider: ZAKI VERDUZCO Report Released Date/Time: Aug 08, 2024 10:54 AM Reporting Lab: [facility] [address] [facility] [address] Performing Lab: [facility] [id number] [place] [address] VITAMIN D 25-OH (Therapy monitor) CALCIFEROL (VIT [...] additional information , please refer to [email or web address] [email or web address] [email or web address]/faq/FA Q199 (This link is being provided for information al/ educational purposes only.) This test was developed and its analytical performance characteris tics have been determined by [employer] [place]. It has not been cleared or approved by the U.S. Food and Drug Administrat ion. This assay has been validated pursuant to the CLIA regulations and is used for clinical purposes. This test was developed and its analytical performance characteris tics have been determined by [employer] [place]. It has not been cleared or approved by the U.S. Food and Drug Administrat ion. This assay has been validated pursuant to the CLIA regulations and is used for clinical purposes. Test Performed by [facility], [employer] [place], [address] [place], [place] Dvo Bahena M.D., Ph.D., Director of Laboratorie s , CLIA [id number] TEST PERFORMED AT: , Ordering Provider: ZAKI VERDUZCO Report Released Date/Time: Aug 08, 2024 10:54 AM Reporting Lab: [facility] [address] [facility] [address] Performing Lab: [place] [facility] [place] [facility] [address] [address] [place] [facility] [place] [facility] FOLATE (WROX) FOLATE [MASS/VOLU ME] IN SERUM OR PLASMA 4.07 ng/mL 5.2 08/08 L Specimen Type: SERUM No comment entered. Ordering Provider: ZAKI VERDUZCO Report Released Date/Time: Aug 08, 2024 10:54 AM Reporting Lab: [place] [facility] [place] [facility] [address] [facility] [address] Performing Lab: [place] [facility] [place] [facility] [address] [facility] [address] [place] [facility] [place] [facility] MICROALBU MIN CREATININ E RATIO PANEL MICROALBUM IN/CREATIN INE [MASS RATIO] IN URINE 354.2 mg/g 0 - 29.9 08/08 H Specimen Type: URINE No comment entered. Ordering Provider: ZAKI VERDUZCO Report Released Date/Time: Aug 08, 2024 10:54 AM Reporting Lab: [place] [facility] [place] [facility] [address] [facility] [address] Performing Lab: [place] [facility] [place] [facility] [address] [facility] [address] [place] [facility] [place] [facility] MICROALBU MIN CREATININ E RATIO PANEL MICROALBUM IN [MASS/VOLU ME] IN URINE 103.3 mg/dL 08/08 Specimen Type: URINE No comment entered. Ordering Provider: ZAKI VERDUZCO Report Released Date/Time: Aug 08, 2024 10:54 AM Reporting Lab: [place] [facility] [place] [facility] [address] [facility] [address] Performing Lab: [place] [facility] [place] [facility] [address] [facility] [address] [place] [facility] [place] [facility] MICROALBU MIN CREATININ E RATIO PANEL CREATININE [MASS/VOLU ME] IN URINE 291.68 mg/dL 08/08 Specimen Type: URINE No comment entered. Ordering Provider: ZAKI VERDUZCO Report Released Date/Time: Aug 08, 2024 10:54 AM Reporting Lab: [place] [facility] [place] [facility] [address] [facility] [address] Performing Lab: [place] [facility] [place] [facility] [address] [facility] [address] [place] [facility] [place] [facility] VITAMIN B12 COBALAMIN (VITAMIN B12) [MASS/VOLU ME] IN SERUM OR PLASMA 1849 pg/mL 200 - 900 08/08 H Specimen Type: SERUM No comment entered. Ordering Provider: ZAKI VERDUZCO Report Released Date/Time: Aug 08, 2024 10:54 AM Reporting Lab: [place] [facility] [place] [facility] [address] [facility] [address] Performing Lab: [place] [facility] [place] [facility] [address] [facility] [address] [place] [facility] [place] [facility] LIPID PANEL FASTING CHOLESTERO L [MASS/VOLU ME] IN SERUM OR PLASMA 178 mg/dL 08/08 Specimen Type: SERUM No comment entered. Ordering Provider: ZAKI VERDUZCO Report Released Date/Time: Aug 08, 2024 10:54 AM Reporting Lab: [place] [facility] [place] [facility] [address] [facility] [address] Performing Lab: [place] [facility] [place] [facility] [address] [facility] [address] [place] [facility] [place] [facility] LIPID PANEL FASTING TRIGLYCERI DE [MASS/VOLU ME] IN SERUM OR PLASMA 97 mg/dL 0 - 150 08/08 Specimen Type: SERUM No comment entered. Ordering Provider: ZAKI VERDUZCO Report Released Date/Time: Aug 08, 2024 10:54 AM Reporting Lab: [place] [facility] [place] [facility] [address] [facility] [address] Performing Lab: [place] [facility] [place] [facility] [address] [facility] [address] [place] [facility] [place] [facility] LIPID PANEL FASTING CHOLESTERO L IN LDL [MASS/VOLU ME] IN SERUM OR PLASMA BY CALCULATIO N 97 mg/dL 0 - 129 08/08 Specimen Type: SERUM No comment entered. Ordering Provider: ZAKI VERDUZCO Report Released Date/Time: Aug 08, 2024 10:54 AM Reporting Lab: [facility] [address] [facility] [address] Performing Lab: [address] [address] [facility] LIPID PANEL FASTING CHOLESTERO L.TOTAL/CH OLESTEROL IN HDL [MASS RATIO] IN SERUM OR PLASMA 2.9 08/08 Specimen Type: SERUM No comment entered. Ordering Provider: ZAKI VERDUZCO Report Released Date/Time: Aug 08, 2024 10:54 AM Reporting Lab: [address] [address] Performing Lab: [address] [address] [facility] LIPID PANEL FASTING CHOLESTERO L IN HDL [MASS/VOLU ME] IN SERUM OR PLASMA 62 mg/dL 40 - 60 08/08 H Specimen Type: SERUM No comment entered. Ordering Provider: ZAKI VERDUZCO Report Released Date/Time: Aug 08, 2024 10:54 AM Reporting Lab: [address] [address] Performing Lab: [facility]RL.[facility] [address] [address] [facility] HEMOGLOBI N A1C PANEL HEMOGLOBIN A1C/HEMOGL [...] AM Reporting Lab: [place] [facility] [place] [facility] [address] [facility] [address] Performing Lab: [place] [facility] [place] [facility] [address] [facility] [address] [place] [facility] [place] [facility] BASIC METABOLIC PANEL (fasting) UREA NITROGEN [MASS/VOLU ME] IN SERUM OR PLASMA 22 mg/dL 7 - 25 08/08 Specimen Type: SERUM No comment entered. Ordering Provider: ZAKI VERDUZCO Report Released Date/Time: Aug 08, 2024 10:54 AM Reporting Lab: [place] [facility] [place] [facility] [address] [facility] [address] Performing Lab: [place] [facility] [place] [facility] [address] [facility] [address] [place] [facility] [place] [facility] BASIC METABOLIC PANEL (fasting) GLUCOSE [MASS/VOLU ME] IN SERUM OR PLASMA 91 mg/dL 65 - 100 08/08 Specimen Type: SERUM No comment entered. Ordering Provider: ZAKI VERDUZCO Report Released Date/Time: Aug 08, 2024 10:54 AM Reporting Lab: [place] [facility] [place] [facility] [address] [facility] [address] Performing Lab: [place] [facility] [place] [facility] [address] [facility] [address] [place] [facility] [place] [facility] BASIC METABOLIC PANEL (fasting) SODIUM [MOLES/VOL UME] IN SERUM OR PLASMA 138 mmol/L 135 - 145 08/08 Specimen Type: SERUM No comment entered. Ordering Provider: ZAKI VERDUZCO Report Released Date/Time: Aug 08, 2024 10:54 AM Reporting Lab: [place] [facility] [place] [facility] [address] [facility] [address] Performing Lab: [place] [facility] [place] [facility] [address] [facility] [address] [place] [facility] [place] [facility] BASIC METABOLIC PANEL (fasting) POTASSIUM [MOLES/VOL UME] IN SERUM OR PLASMA 4.8 mmol/L 3.5 - 5.0 08/08 Specimen Type: SERUM No comment entered. Ordering Provider: ZAKI VERDUZCO Report Released Date/Time: Aug 08, 2024 10:54 AM Reporting Lab: [place] [facility] [address] [facility] [address] Performing Lab: [place] [facility] [address] [facility]RL W[facility]N [facility]ITALUSE [facility] BASIC METABOLIC PANEL (fasting) CHLORIDE [MOLES/VOL UME] IN SERUM OR PLASMA 105 mmol/L 100 - 110 08/08 Specimen Type: SERUM No comment entered. Ordering Provider: ZAKI VERDUZCO Report Released Date/Time: Aug 08, 2024 10:54 AM Reporting Lab: [facility]RL TRN [facility] [address] Performing Lab: [facility]RL [facility] [address] [facility]ENTERRL TRN [facility]ITALUSE [facility] BASIC METABOLIC PANEL (fasting) CARBON DIOXIDE, TOTAL [MOLES/VOL UME] IN SERUM OR PLASMA 25 meq/L 20 - 30 08/08 Specimen Type: SERUM No comment entered. Ordering Provider: ZAKI VERDUZCO Report Released Date/Time: Aug 08, 2024 10:54 AM Reporting Lab: [facility]RL [facility] [address] Performing Lab: [place] [facility] [facility]ITALUSETS [address] [address] [facility] CENTERRLAUREL [facility]ENTERTRN [facility]PITALUSE [facility] BASIC METABOLIC PANEL (fasting) CREATININE [MASS/VOLU ME] IN SERUM OR PLASMA 0.99 mg/dL 0.50 - 1.40 08/08 Specimen Type: SERUM No comment entered. Ordering Provider: ZAKI VERDUZCO Report Released Date/Time: Aug 08, 2024 10:54 AM Reporting Lab: [facility]RL [facility] [address] Performing Lab: [place] [facility] [address] [facility] [address] [facility] BASIC METABOLIC PANEL (fasting) GLOMERULAR FILTRATION RATE/1.73 SQ M.PREDICTE D [VOLUME RATE/AREA] IN SERUM, PLASMA OR BLOOD BY CREATININE -BASED FORMULA (CKD-EPI 2020) 77 mL/min 60 08/08 Specimen Type: SERUM No comment entered. Ordering Provider: ZAKI VERDUZCO Report Released Date/Time: Aug 08, 2024 10:54 AM Reporting Lab: [facility]N [facility]USE[facility] [address] [facility] [address] Performing Lab: [facility]N [facility] [address] [facility] [address] [facility]N [facility]ITALUSE [facility] Vital Signs Combined list of inpatient and outpatient Vital Signs from Department of Defense and Veterans Affairs, ranging from 12 months to all on record, depending upon the facility. Vital Sign Value Date Comments Source SYSTOLIC BLOOD PRESSURE 131 12/14/19 13:29:08 [place] DIASTOLIC BLOOD PRESSURE 75 025 13:29:08 [place] PULSE OXIMETRY 95 12/13/2024 13:29:08 [place] WEIGHT 157.2 12/13/2024 13:29:08 [place] BMI 23 kg/m2 12/13/2024 13:29:08 [place] TEMPERATURE 99.3 12/13/2024 13:29:08 [place] PULSE 85 12/13/2024 13:29:08 [place] SYSTOLIC BLOOD PRESSURE 154 08/24/20 12:28:43 [place] DIASTOLIC BLOOD PRESSURE 78 12:28:43 [place] PULSE OXIMETRY 97 08/24/2024 12:28:43 [place] PAIN 0 08/24/2024 12:28:43 [place] HEIGHT 70 08/24/2024 12:28:43 [place] PULSE 68 08/24/2024 12:28:43 [place] RESPIRATION 20 08/24/2024 12:28:43 [place] SYSTOLIC BLOOD PRESSURE 155 08/09/20 24 09:58:25 [facility] DIASTOLIC BLOOD PRESSURE 78 024 09:58:25 [...] 04/27/2024 10:09:05 [facility] [place] [facility] Encounters Combined list of: 1) Encounters from Department of Veterans Affairs facilities going backup to the last 18 months, not all [place] inpatient encounters are included; 2) Encounters from the Department of Defense facilities going backup to 280 months. Location Location Details Encounter Type Encounter Number Reason For Visit Attending Provider ADM Date DC Date Status Disposition Source [facility] OFFICE O/P EST MOD 30-39 MIN [id number] Diagnos is: ICD-10- CM Z00.01 Encount er for general adult medical exam w abnorma l finding s Lou VERDUZCO 06/23 [facility] [place] [facility] Outpatient Encounter [id number] 06/23 [place] [facility] [facility]/ PEER SVC PER 15MIN [id number] Diagnos is: ICD-10- CM Z59.00 Homeles sness unspeci fied CAPELLA,CY NTHIA 06/25 [facility] OFFICE O/P EST LOW 20-29 MIN [id number] Diagnos is: ICD-10- CM D52.8 Other folate deficie ncy anemias Lou VERDUZCO POLIYASMINIO 06/30 [facility] OFFICE O/P NEW MOD 45-59 MIN [id number] Diagnos is: ICD-10- CM C61 Maligna nt neoplas m of prostat e SANAZ-LE ALEKSANDER AVILES NNE 07/03 [place] [facility] OFFICE O/P EST MOD 30-39 MIN [id number] Diagnos is: ICD-10- CM 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 LUBA,A POLINARIO 07[place] [place] [facility] [place] [facility] En[facility] [id number] 07/14 [facility] [place] [place] [facility] [place] En[facility] [id number] 07/16 [facility] [place] [place] [facility] [place] OFFICE O/P NEW MOD 45-59 MIN [id number] Diagnos is: ICD-10- CM M54.59 Other low back pain NICANOR MARIA RA 07/16 [facility] [place] [facility] [place] En[facility] [id number] 07/17 [facility] [place] [place] [facility] [place] Encounter [id number] 07/20 [facility] [place] [place] [facility] [place] [facility] Encounter [id number] 07/21 [facility] [place] [facility] [place] Encounter [id number] 08/10 [facility] [place] [facility] [place] En[facility] [id number] 08/14 [facility] [place] [place] [facility] [place] En[facility] [id number] 08/24 [facility] [place] [facility] [place] Encounter [id number] 09/16 [facility] [place] [facility] [facility] OFF[facility] O/P EST LOW 20-29 MIN [id number] Diagnos is: ICD-10- CM I10 Essenti al (primar y) hyperte nsion LUBA,A POLINARIO 09/18 [place] [facility] Out[facility] Encounter [id number] 10/06 [facility] [place] [facility] [place] En[facility] [id number] 10/06 [facility] [place] [place] [facility] [place] Encounter [id number] 10/06 [facility] [place] [facility] [place] Encounter [id number] 10/06 [facility] [place] [facility] Outpatient Encounter [id number] LUBA,Lou POLINAR10/06 [place] [facility] [place] Out[facility] Encounter [id number] 10/08 [facility] [place] [facility] [place] Encounter [id number] 10/14 [facility] [place] [facility] [place] Encounter [id number] 10/26 [facility] [place] [facility] [place] En[facility] [id number] 12/03 [facility] [place] [place] [facility] [place] Encounter [id number] 12/03 [facility] [place] [facility] O/P EST MOD 30 MIN [id number] Diagnos is: ICD-10- CM R97.20 Elevate d prostat e specifi c antigen [PSA] LUBA,A POLINARIO 12/21 [place] [facility] [place] [facility] COMPRE OPH EXAM EST [place] 1/ [id number] Diagnos is: ICD-10- CM H40.013 Open angle with borderl ine finding s, low risk, bilater al MERHAR,ALANA H B 12/30 [facility] [place] CMPTR OPHTH IMG OPTIC NERVE [id number] Diagnos is: ICD-10- CM H40.013 Open angle with borderl ine finding s, low risk, bilater al MERHAR,ALANA H B 12/30 [facility] [place] [facility] O/P EST MOD 30 MIN [id number] Diagnos is: ICD-10- CM W06.XXX A Fall from bed, initial encount er LUBA,A POLINARIO 01/21 [place] [facility] Out[facility] Encounter [id number] 01/24 [facility] [place] En[facility] [id number] 01/27 [facility] [place] [id number] 02/21 [facility] [place] [facility] [place] Outpatient Encounter [id number] 02/25 [facility] [place] [facility] [place] OFF/OP EST JANUARY X REQ PHY/QHP [id number] Diagnos is: ICD-10- CM L02.212 [place] us abscess of back [any part, except buttock ] PAULINESONIAKAMRYNLATISHA BERNAL 02/25 [facility] [place] [facility] Outpatient Encounter [id number] 02/25 [facility] [place] [facility] [facility] OFF[facility] O/P EST MOD 30 MIN [id number] Diagnos is: ICD-10- CM L02.818 Cutaneo us abscess of other sites ROWDY MCLAIN 02/25 [facility] [place] [facility] Outpatient Encounter [id number] 03/02 [facility] [place] [facility] UNLISTED SPEC DERM SVC/PX [id number] Diagnos is: ICD-10- CM Z13.89 Encount er for screeni ng for other disorde r Sree POSADA 03/10 [facility] Outpatient Encounter [id number] Diagnos is: ICD-10- CM L82.1 Other seborrh eic keratos is ADRIANNE MELISSA 03/14 [facility] [place] [facility] Outpatient Encounter [id number] 1.03/14 [facility] [place] [place] [facility] [place] [facility] Outpatient Encounter [id number] 1.03/14 [facility] [place] [place] [facility] [place] [facility] Outpatient Encounter [id number] 03/18 [facility] [place] [facility] [place] [facility] O/P EST MOD 30 MIN [id number] Diagnos is: ICD-10- CM N13.9 Obstruc tive and reflux uropath y, unspeci fied LUBA,A POLINARIO 03/21 [place] [facility] [place] [facility] Outpatient Encounter [id number] 03/21 [facility] [place] [facility] [place] QNHP OL DIG ASSMT&MGMT 5-10 [id number] Diagnos is: ICD-10- CM Z51.81 Encount er for therape utic drug level monitor CHAY Higginbotham [place] [facility] [place] [facility] Outpatient Encounter [id number] 04/04 [facility] [place] [facility] [facility] Outpatient Encounter [id number] 04/07 [facility] [place] [place] [facility] [place] [facility] Outpatient Encounter [id number] 04/19 [facility] [place] [facility] [place] O/P EST MOD 30 MIN [id number] Diagnos is: ICD-10- CM 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 LUBA,A POLINARIO 04/27 [place] [facility] [place] [facility] Outpatient Encounter [id number] [facility] [place] [facility] [place] OFF/OP EST MAY X REQ PHY/QHP [id number] Diagnos is: ICD-10- CM Z23 Encount er for immuniz atParis Haley BERTIN H 05/31 [place] [facility] Encounter [id number] 06/01 [facility] [place] En[facility] [id number] 06/01 [facility] [place] Encounter [id number] 06/03 [facility] [place] [place] Encounter [id number] 1.06/07 [facility] [place] [place] En[facility] [id number] 06/07 [facility] [place] [place] Encounter [id number] 06/13 [facility] [place] [place] Encounter [id number] 06/16 [facility] [place] [facility] OFFICE O/P EST MOD 30 MIN [id number] Diagnos is: ICD-10- CM Z01.810 Encount er for preproc edural cardiov ascular examina tahiraon Lou VERDUZCO 06/21 [facility] [place] [facility] [place] [facility] Out[facility] Encounter [id number] 06/23 [facility] [place] [place] Encounter [id number] 06/24 [facility] [place] [place] Encounter [id number] 06/29 [facility] [place] [place] Encounter [id number] 06/30 [facility] [place] [place] Encounter [id number] 1.07/06 [facility] [place] [place] Encounter [id number] 07/07 [facility] [place] [place] Encounter [id number]/07 [facility] [place] [place] Encounter [id number] 07/18 [facility] [place] [place] Encounter [id number] 07/19 [facility] [place] [place] Encounter [id number] 07/20 [facility] [place] [place] Encounter [id number] 07/26 [facility] [place] [place] Encounter [id number] 07/29 [facility] [place] [place] Encounter [id number] 08/04 [facility] [place] [place] O/P EST MOD 30 MIN [id number] 1BY. 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 ROY,DA VID A 08/24 [place] [facility] [place] [facility] Outpatient Encounter [id number] 08/25 [facility] [place] [place] Encounter [id number] 08/29 [facility] [place] [facility] LD OFFICE O/P EST LOW 20 MIN [id number] Diagnos is: ICD-10- CM C61 Maligna nt neoplas m of prostat e LUBA,A POLINARIO 08/31 [place] [facility] Outpatient Encounter [id number] 09/05 [facility] [place] [facility] OFF/OP EST MAY X REQ PHY/QHP [id number] Diagnos is: ICD-10- CM 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 LUBA,A POLINARIO 09/06 [place] [facility] [place] Out[facility] Encounter [id number] 09/07 [facility] [place] [place] En[facility] [id number] 09/09 [facility] [place] [facility] [place] Encounter [id number] 1.09/15 [facility] [place] [facility] [place] Encounter [id number] 1.09/15 [facility] [place] [facility] [place] Encounter [id number] [facility] [place] [facility] [place] En[facility] [id number] 09/15 [facility] [place] [place] Encounter [id number] 09/29 [facility] [place] [facility] [place] Encounter [id number] 10/05 [facility] [place] [facility] [place] Encounter [id number] 10/13 [facility] [place] [facility] [place] Encounter [id number] 10/17 [facility] [place] [facility] [place] Encounter [id number] 10[facility]20 [facility] [place] [place] Encounter [id number] 10/21 [facility] [place] [facility] [place] Out[facility] Encounter [id number] [facility] [place] [facility] [place] Encounter [id number] 10/25 [facility] [place] [facility] [place] Encounter [id number] [facility] [place] [facility] [place] Out[facility] Encounter [id number]/27 [facility] [place] [facility] [place] Encounter [id number] 10/27 [facility] [place] [facility] [place] Out[facility] Encounter [id number] 10/28 [facility] [place] [facility] [place] Encounter [id number] 11/01 [facility] [place] [facility] [place] [facility] Encounter [id number] 11/08 [facility] [place] [facility] [place] Encounter [id number] 11/09 [facility] [place] [facility] [place] Out[facility] Encounter [id number] 11/10 [facility] [place] [facility] [place] Encounter [id number] 11/11 [facility] [place] [facility] [facility] ([facility]) Outpatient Encounter [id number] 11/14 [facility] ([facility]) [facility] (6[facility]GE) PH1 ASSMT&MGMT NQHP -30 [id number] Diagnos is: ICD-10- CM Z74.1 Need for assista nce with persona l ALIN Torres 11/14 [facility] ([facility]) [facility] [place] [facility] Out[facility] Encounter [id number] 11/17 [facility] [place] [facility] [place] Encounter [id number] 11/21 [facility] [place] [facility] [place] Encounter [id number] 11[facility]22 [facility] [place] [facility] [place] Encounter [id number] 11/22 [facility] [place] [facility] [place] Encounter [id number] 11/23 [facility] [place] [facility] [place] Encounter [id number] 11/25 [facility] [place] [facility] [place] En[facility] [id number] 12/01 [facility] [place] [facility] [place] En[facility] [id number] 12/06 [facility] [place] [facility] [place] En[facility] [id number] 12/09 [facility] [place] [facility] [place] Encounter [id number] 12/13 [facility] [place] [place] [facility] Social History Combined list of available smoking, tobacco, and other social history from Department of Defense and Veterans Affairs facilities. 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 Additional future care activities may be listed in the Assessment and Plan section. Date/Time Care Activity Care Activity Detail Facili ty 01/02/2025 AMBULATORY - MEDICINE AMBULATORY - MEDICI [facility] [place] [facility] Advance Directives List of completed, amended, or rescinded Advance Directives on record at Department of Veterans Affairs facilities. An actual copy of the Directive is not included. Date Advance Directive Provider Source 04/04/2024 ADVANCE DIRECTIVE CHAPINCITO DEE [facility]
--- OUTSIDE RECORDS SUMMARY | 2024-12-21 12:59 | XMS_ITS | Encounter Summary ---
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 [facility] [facility] [place] Address [address] [place] [phone] Care Team Providers Care Racehorse Trainer Name Role Phone ROWENA ROY Primary Care [...] Segal's Name Patient's Relationship to Policy Segal [facility] ([facility]) MEDICARE ADVANTAGE [place] INDIV IDUAL - [place] Sep 21, 2023 [id number] [phone] GENET DUGAN S [facility] ([facility]) Sep 21, 2023 [id number] [phone] GENET DUGAN S PATIENT [place] MEDICAID [place] PLAN May 22, 2022 MEDICAI D [id number] GENET DUGAN S PATIENT MEDICARE ([facility]) MEDICARE () PART B May 22, 2022 PART B [id number] [phone] GENET DUGAN S PATIENT MEDICARE (WNR) MEDICARE () PART A Feb 19, 2009 PART A [id number] GENET DUGAN S PATIENT MEDICARE PART D (WNR) MEDICARE (M) PART D Jul 22, 2022 PART D [id number] [phone] GENET DUGAN S PATIENT [facility] (WNR) MEDICARE ADVANTAGE [facility] (WNR) Sep 21, 2022 [id number] [phone] GENET DUGAN S PATIENT [facility] (WNR) MEDICARE ADVANTAGE [facility] (WNR) Sep 21, 2022 [id number] GENET DUGAN PATIENT Selected Encounter This [...] activities [facility] the [facility] [place] [facility] This section includes future appointments [...] - MEDICINE [place] [facility] Mar 21, 2024 09:30 AM [place] [facility] Apr 07, 2024 08:30 AM [place] [facility] Apr 15, 2024 02:30 PM AMBULATORY - MEDICINE [place] [facility] [place] [facility] Apr 27, 2024 10:00 AM AMBULATORY - MEDICINE [facility] [place] [facility] May 13, 2024 11:00 AM [place] [facility] May 31, 2024 10:00 AM AM[facility]ULATORY - MEDICINE [facility] [place] [facility] Jun 03, 2024 12:45 PM AMBULATORY - MEDICINE [facility] [place] [place] [facility] Jun 21, 2024 09:00 AM AMBULATORY - MEDICINE [facility] [place] [facility] Aug 09, 2024 09:00 AM AMBULATORY - MEDICINE [facility] [place] [facility] Aug 16, 2024 12:00 PM AMBULATORY - NONE [facility] [place] [facility] Aug 22, 2024 11:20 AM AMBULATORY - MEDICINE [facility] [place] [facility] Aug 24, 2024 11:00 AM [facility] Sep 01, 2024 11:00 AM AMBULATORY - NONE [facility] [place] [facility] Sep 07, 2024 03:00 PM AMBULATORY - MEDICINE [facility] [place] [place] [facility] Active, Pending, and Scheduled Orders [...] PANEL URINE (RANDOM) [facility] [place] [place] [facility] Mar 19, 2024 12:00 AM Laboratory - Chemistry Order VITAMIN B12 BLOOD (SST-SERUM) SP [facility] [place] [facility] Mar 19, 2024 12:00 AM Laboratory - Chemistry Order FOLATE BLOOD (SST-SERUM) [facility] [place] [facility] Mar 19, 2024 12:00 AM Laboratory - Chemistry Order LIPID PANEL FASTING BLOOD (SST-SERUM) [facility] [place] [place] [facility] Mar 19, 2024 12:00 AM Laboratory - Chemistry Order VITAMIN D 25-OH (Therapy monitor) BLOOD (SST-SERUM) [facility] [place] [place] [facility] Mar 19, 2024 12:00 AM Laboratory - Chemistry Order LIVER FUNCTION BLOOD (SST-SERUM) [facility] [place] [place] [facility] Mar 19, 2024 12:00 AM Laboratory - Chemistry Order BASIC METABOLIC PANEL (fasting) BLOOD (SST-SERUM) [facility] Mar 19, 2024 12:00 AM Laboratory - Chemistry Order CBC AND DIFF (AUTO) BLOOD (LAV-BLOOD) [facility] Mar 19, 2024 12:00 AM Laboratory - Chemistry Order HEMOGLOBIN A1C PANEL BLOOD (LAV-BLOOD) [facility] Mar 19, 2024 12:00 AM Laboratory - Chemistry Order TSH BLOOD (SST-SERUM) [facility] Mar 19, 2024 12:00 AM Laboratory - Chemistry Order PSA BLOOD (SST-SERUM) [facility] Social History: Smoking Status (Most current) [...] Facil ity Jun 23, 2023 09:00 AM [place] 15 YRS OR MORE [facility] Tobacco Use History This section includes a history of the smoking, or tobacco-related health factors, that were collected on or before the date of the Encounter. The data comes from the [place] facility where the Encounter took place. Date/Time Smoking Status/Tobacco Use Comment F acility Jun 23, 2023 09:00 AM [place]-TOBACCO QUIT 15 YRS OR MORE [facility] May 01, 2022 01:30 PM VA-TOBACCO FORMER USER [facility] May 01, 2022 01:30 PM VA-TOBACCO QUIT 15 YRS OR MORE [facility] Apr 15, 2021 03:00 PM VA-TOBACCO FORMER USER [facility] Apr 15, 2021 03:00 PM VA-TOBACCO QUIT 15 YRS OR MORE [facility] Oct 20, 2018 12:53 PM VA-TOBACCO FORMER USER [facility] Oct 20, 2018 12:53 PM [place]-TOBACCO QUIT 15 YRS OR MORE [facility] Jul 03, 2017 10:33 AM QUIT TOBACCO USE > 7 YEARS AGO quit 25yrs ago [facility] February 13, 2016 08:46 AM LIFETIME NON-TOBACCO USER [facility] Advance Directives: All historical and current Section [...] Provider Source Apr 04, 2024 ADVANCE DIRECTIVE LEILANGHIACHAPINCITO M [facility] Encounter Notes: All associated [...] TREATMENT: Yes Details: Compound W BIOPSY: No Tablet Repair's comments: Imaged per provider's direction and facility protocol. /mariana/ NELL POSADA TELEHEALTH CLINICAL TECHNIAN (TCT) Signed: 03/10/2024 15:23 NELL POSADA
--- OUTSIDE RECORDS SUMMARY | 2024-12-21 12:59 | XMS_ITS | Encounter Summary ---
Author Organization [employer] Address [address] [place] [address] [address] [place] [address] Care Team Providers Care Angle Shearer Name Role Phone Elijah Johnson MD Primary Care Prov ider Reason for Visit * Reason Onset Date Comments new patient visit 08/11/2024 Encounter Details Date Type Department Care Team (Late st Contact Info) Description 08/11/2024 Telephone [facility] MEDICINE [address] [place] [address] Elijah Johnson MD [address] [place], [place] [phone] new patient visit Social History Tobacco Use [...] proper care and opted for pcp at [facility] . Apptmnt reminder and release form sent via mail . documented in this encounter Plan of Treatment Not on file documented as of this encounter Visit Diagnoses Not on filedocumented in this encounter Care Teams Angle Shearer Relationship Specialty Start Date End Date Elijah Johnson MD [address] [place] [phone] PCP - General Internal Medicine 08/30/24 documented as of this encounter
--- OUTSIDE RECORDS SUMMARY | 2024-12-21 12:59 | XMS_ITS | Encounter Summary ---
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 Organization [place] Address [address] [place] [address] Care Team Providers Care Pure Culture Operator Name Role Phone ROWENA ROY Primary [facility] Provider [facility] Insurance Providers: All historical [...] Segal's Name Patient's Relationship to Policy Segal [facility] MEDICARE ADVANTAGE [place] IDUAL - [place] Sep 21, 2023 [id number] [phone] GENET DUGAN S PATIENT [facility] ([facility] MEDICARE [facility] ([facility] Sep 21, 2023 [id number] [phone] GENET DUGAN S PATIENT HUSKY MEDICAID HUSKY PLAN May 22, 2022 MEDICAI D [id number] GENET DUGAN S PATIENT MEDICARE ([facility]) MEDICARE () PART B May 22, 2022 PART B [id number] [phone] GENET DUGAN S PATIENT MEDICARE (WNR) MEDICARE () PART A Feb 19, 2009 PART A [id number] [phone] GENET DUGAN S PATIENT MEDICARE PART D (WNR) MEDICARE (M) PART D Jul 22, 2022 PART D [id number] DUGAN,GENET S PATIENT [facility] (WNR) MEDICARE ADVANTAGE [facility] (WNR) Sep 21, 2022 [id number] DUGAN,GENET S PATIENT [facility] (WNR) MEDICARE ADVANTAGE [facility] (WNR) Sep 21, 2022 [id number] [phone] GENET DUGAN S PATIENT Selected Encounter This section includes the information on record at [place] for the Encounter. Date/Time Encounter Type Encounter Description Reason Provider Source Aug 31, 2024 10:32 AM OFFICE O/P EST LOW 20 MIN PRIMARY CARE/MEDICINE ICD-10-CM C61 Malignant neoplasm of prostate HAYLEY VERDUZCO Encounter Template Text not used by [place] [...] activities for the patient from all [place] [facility]. This section includes future appointments and [...] [place] [facility] Nov 09, 2024 09:00 AM AMBULATORY - MEDICINE [place] [facility] [place] [facility] Nov 24, 2024 03:00 PM AMBULATORY - MEDICINE [place] [facility] [place] [facility] Nov 25, 2024 08:00 AM AMBULATORY - MEDICINE [place] [facility] [place] [facility] Dec 13, 2024 01:30 PM [facility] Jan 02, 2025 10:00 AM AM[facility]ULATORY - [place]ICINE [place] [facility] Lab Results: +/- 30 days of [...] Range Comment Aug 24, 2024 11:28 AM [facility] CBC AND DIFF (AUTO) Specimen Type: BLOOD No comment entered. Ordering Provider: ROWENA ROY Report Released Date/Time: Aug 24, 2024 11:07 AM Reporting Lab: [facility] [address] [facility] [address] Performing Lab: [address] [address] WBC 8.84 10*3/uL 4.50-11.00 RBC 4.72 10*6/uL [...] Aug 09, 2024 09:43 AM Reporting Lab: [facility] [address] [facility] [address] Performing Lab: [facility] [address] [facility] [address] UA WBC 0-5 /[HPF] 0-5 UA BACTERIA 1+ /[HPF] NoneObs UA TRIPLE PHOSPHATE CRYSTALS MODERATE /[HPF] Not Established UA RBC 6-10 /[HPF] H 0-3 Aug 24, 2024 11:28 AM [facility] URINALYSIS Specimen Type: URINE Comment: If Glucose = >500 and Ketones are positive, please alert the Physician. Ordering Provider: MONICA VERDUZCO Report Released Date/Time: Aug 09, 2024 09:43 AM Reporting Lab: [address] [address] Performing Lab: [address] [address] UA COLOR Light-Brown Yellow UA APPEARANCE Turbid [...] For additional information, please refer to http://educatio n.iCAD.Citelighter/faq/FAQ 199 (This link is being provided for informational/ educational purposes only.) This test was developed and its analytical performance characteristics have been determined by [employer] [place], [place]. It has not been cleared or approved by the U.S. Food and Drug Administration. This assay has been validated pursuant to the CLIA regulations and is used for clinical purposes. This test was developed and its analytical performance characteristics have been determined by [employer] [place]. It has not been cleared or approved by the U.S. Food and Drug Administration. This assay has been validated pursuant to the CLIA regulations and is used for clinical purposes. Test Performed by [facility], [facility], [address] [place] [address] Dov Bahena M.D., Ph.D., Director of Laboratories , CLIA [id number] TEST PERFORMED AT: , Ordering Provider: MONICA VERDUZCO Report Released Date/Time: Aug 08, 2024 10:54 AM Reporting Lab: [address] [address] Performing Lab: [facility] [address] [address] VITAMIN D, 25-OH, TOTAL 51 ng/mL 30-100 VITAMIN D, 25-OH, D3 51 ng/mL VITAMIN D, 25-OH, D2 <4 ng/mL Aug 08, 2024 10:59 AM [facility] FOLATE (WROX) Specimen Type: SERUM No comment entered. Ordering Provider: MONICA VERDUZCO Report Released Date/Time: Aug 08, 2024 10:54 AM Reporting Lab: [facility] [address] [facility] [address] Performing Lab: [facility] [place] [facility] [address] [facility] [address] FOLATE (WROX) 4.07 ng/mL L >5.2 Aug 08, 2024 10:59 AM [facility] MICROALBUMIN CREATININE RATIO PANEL Specimen Type: URINE No comment entered. Ordering Provider: MONICA VERDUZCO Report Released Date/Time: Aug 08, 2024 10:54 AM Reporting Lab: [place] [facility] [address] [facility] [address] Performing Lab: [facility] [address] [facility] [address] MICROALBUMIN/ CREATININE RATIO 354.2 mg/g H 0-29.9 MICROALBUMIN, QUANTITATIVE 103.3 mg/dL RR UNAVAIL CREATININE URINE 291.68 mg/dL Aug 08, 2024 10:59 AM [facility] VITAMIN B12 Specimen Type: SERUM No comment entered. Ordering Provider: MONICA VERDUZCO Report Released Date/Time: Aug 08, 2024 10:54 AM Reporting Lab: [facility] [place] [facility] [address] [facility] [address] Performing Lab: [facility] [address] [address] VITAMIN B12 1849 pg/mL H 200-900 Aug [...] 10:54 AM Reporting Lab: [facility]TRN [facility] [address] [facility] [address] Performing Lab: [facility] [place] [address] HEMOGLOBIN A1C 5.2 4.0-5.6 Aug 08, 2024 10:59 AM [facility] BASIC METABOLIC PANEL (fasting) Specimen Type: SERUM No comment entered. Ordering Provider: MONICA VERDUZCO Report Released Date/Time: Aug 08, 2024 10:54 AM Reporting Lab: [address] [address] Performing Lab: [address] [address] UREA NITROGEN 22 mg/dL 7-25 GLUCOSE 91 [...] 08, 2024 10:54 AM Reporting Lab: [address] [address] Performing Lab: [address] [address] PROTEIN,TOTAL 6.7 g/dL 6.0-8.3 ALBUMIN 3.4 g/dL L 3.5-5.0 ALKALINE PHOSPHATASE 151 U/L H 40-150 AST 17 U/L 5-34 ALT 8 U/L BILIRUBIN, TOTAL 0.5 mg/dL 0.2-1.2 Aug 08, 2024 10:59 AM [facility] TSH Specimen Type: SERUM No comment entered. Ordering Provider: MONICA VERDUZCO Report Released Date/Time: Aug 08, 2024 10:54 AM Reporting Lab: [address] [address] Performing Lab: [address] [place] [address] TSH 1.93 u[IU]/mL 0.35-5.00 Aug 08, 2024 10:59 AM [facility]TRN [facility] LIPID PANEL FASTING Specimen Type: SERUM No comment entered. Ordering Provider: MONICA VERDUZCO Report Released Date/Time: Aug 08, 2024 10:54 AM Reporting Lab: [facility] [address] [facility] [address] Performing Lab: [facility]RL [facility] [address] [facility] [address] CHOLESTEROL 178 mg/dL TRIGLYCERIDE 97 mg/dL 0-150 LDL calculated 97 mg/dL 0-129 CHOL/HDL 2.9 HDL CHOLESTEROL 62 mg/dL H 40-60 Aug 08, 2024 10:59 AM [facility] PSA Specimen Type: SERUM No comment entered. Ordering Provider: MONICA VERDUZCO Report Released Date/Time: Aug 08, 2024 10:54 AM Reporting Lab: [facility]TRN [facility] [address] [facility] [address] Performing Lab: [facility] [address] [facility] [address] PSA 30.59 ng/mL H 0.00-4.00 Aug 08, 2024 10:59 AM [facility] CBC AND DIFF (AUTO) Specimen Type: BLOOD No comment entered. Ordering Provider: MONICA VERDUZCO Report Released Date/Time: Aug 08, 2024 10:54 AM Reporting Lab: [facility] TRN [facility] [address] [facility] [address] Performing Lab: [facility]ERN [facility]ITAL[facility] [address] [address] WBC 7.81 10*3/uL 4.50-11.00 RBC 4.88 10*6/uL [...] and tobacco- related health factors from the [place] facility where the Encounter took place. Current Smoking Status This section includes the most current smoking, or tobacco-related health factor, from the [place] facility where the Encounter took place. Date/Time Current Smoking Status Comment Ray itedwin May 31, 2024 10:00 AM VA-TOBACCO NEVER USED [facility] Tobacco Use History This section includes a history of the smoking, or tobacco-related health factors, that were collected on or before the date of the Encounter. The data comes from the [place] facility where the Encounter took place. Date/Time Smoking Status/Tobacco Use Comment F acility Jun 23, 2023 09:00 AM VA-TOBACCO FORMER USER [facility] Jun 23, 2023 09:00 AM VA-TOBACCO QUIT 15 YRS OR MORE [facility] May 01, 2022 01:30 PM VA-TOBACCO FORMER USER [facility] May 01, 2022 01:30 PM VA-TOBACCO QUIT 15 YRS OR MORE [facility] Apr 15, 2021 03:00 PM VA-TOBACCO FORMER USER [facility] Apr 15, 2021 03:00 PM VA-TOBACCO QUIT 15 YRS OR MORE [facility] Oct 20, 2018 12:53 PM VA-TOBACCO FORMER USER [facility] Oct 20, 2018 12:53 PM VA-TOBACCO QUIT 15 YRS OR MORE [facility] Jul 03, 2017 10:33 AM QUIT TOBACCO USE > 7 YEARS AGO quit 25yrs ago [facility] February 13, 2016 08:46 AM LIFETIME NON-TOBACCO USER [facility] Advance Directives: All historical and current Section [...] AM CHEST CT W/O CONT: JAKE DUGAN [id number] -1945 M Exm Date: SEP 01, 2024@10:54 Req Phys: LUBA,NOLAN Pat Loc: CWM/SO/PACT 9 (Req'g Loc) Img Loc: [facility]/CT Service: [place] [address] (Case [id number] COMPLETE) CT THORAX W/O CONT (CT Detailed) CPT:94337 Reason for Study: LDCT Clinical History: lung CA screen/surveillance as per protocol Report Status: Verified Date Reported: SEP 01, 2024 Date Verified: SEP 01, 2024 Content Director E-Sig:/ES/STARR MCDANIEL JR Report: Study: Noncontrast CT [...] Primary Interpreting Staff: STARR MCDANIEL JR, Radiologist (Content Director) /STARR HERNANDEZ JR [facility] Aug 16, 2024 02:[address] ABDOMEN AND PELVIS WITH CONTRAST: JAKE DUGAN [id number] -1945 M Ex Date: AUG 16, 2024@14:04 Req Phys: NOLAN VERDUZCO Pat Loc: CWM/SO/PACT 9 (Req'g Loc) Img Loc: [facility]/CT Service: [place] [address] (Case [id number] COMPLETE) CT ABDOMEN AND PELVIS WITH CONTRA(CT Detailed) CPT:88525 Contrast Media : Non-ionic Iodinated Reason for Study: prostate CA Clinical History: Report Status: Verified Date Reported: AUG 16, 2024 Date Verified: AUG 16, 2024 Content Director E-Sig: Report: CT ABDOMEN AND PELVIS WITH [...] tumor infiltration. READING PHYSICIAN: Kwabena Perez M.D. -[id number] 08/16/2024 20:18 [facility] [place] National Teleradiology Program [phone] (For Medical Practitioner Use Only) Attention Patients [...] RE PORT: Reporting Lab: [facility] [CLIA# [id number]] [address] [place] [address] Accession [UID]: [id number] [[id number]] Received: Aug 24, 2024@11:28 Collection sample: URINE CLEAN CATCH Collection date: Aug 24, 2024 11:28 Site/Specimen: URINE Provider: NOLAN VERDUZCO Comment on specimen: POSITIVE CULTURE RESULTS MAY NOT REPRESENT CLINICAL INFECTION. CONSIDER NEED FOR ANTIBIOTICS IN THE CONTEXT OF UTI SYMPTOMS. Test(s) ordered: URINE CULTURE(MWROX).......... completed: Aug 29, 2024 08:33 * BACTERIOLOGY FINAL REPORT => Aug 29, 2024 08:32 TECH CODE: [id number] CULTURE RESULTS: 1. KLEBSIELLA OXYTOCA/RAOULTELLA ORNITHINOLYTICA - [...] Performing Laboratory: Klebsiella Oxytoca/raoultella Ornithinolytica Performed By: [facility] [CLIA# [id number]] [address] [place] [address] Pseudomonas Aeruginosa Performed By: [facility] [CLIA# [id number]] [address] [place] [address] Bact Report Remark #1 Performed By: [facility] [CLIA# [id number]] [address] [place] [id number] Bact Report Remark #2 Performed By: [facility] [CLIA# [id number]] [address] [place] [address] ENRIQUETA FLORES [facility] Encounter Notes: All associated encounter notes This [...] visit and discharged. Discussed findings of latest [place] CT of pelvis and abdomen. He is agreeable to pursuing a CT of lungs to further eval incidental findings of subcentimeter nodules in the lower lung jay. He reports no respiratory sxs at this time. He'll pick-up copies of the [facility] CT study today. [facility] has been modified of the new pelvic LNadeopathy. A/P Metastatic prostate CA in patient with possible new nephrolithiasis aside from continued urologic complications from untreated prostate CA. Plans as above. Further pulmonary involvement to be assessed with full LDCT scan. /mariana/ NOLAN VERDUZCO MD PHYSICIAN Signed: 08/31/2024 10:48 Receipt Acknowledged By: 08/31/2024 13:31 /mariana/ ROWENA ROY NP NURSE PRACTITIONER NOLAN VERDUZCO [facility]
--- OUTSIDE RECORDS SUMMARY | 2024-12-21 12:59 | XMS_ITS | Clinical Summary ---
Author Organization [facility] Address [address] [place] [address] Phone Care Team Providers Care Cell Preparer Name Role Phone Erik Hill Primary Care Provider [phone] Allergies Active Allergy Reactions Criticality Noted Date [...] EST - 10/19/2024 7:26 AM EST Emergency [facility] Emergency [address] [place] [address] Malfunction of Mccurdy catheter, initial encounter (CMS/HCC) (Primary Dx) Discharge Disposition: Home or Self Care from Last 3 Months Medical History Medical History Date Comments Hypertension 08/25/2018 DX:Hypertension Cancer (CMS/HCC) Prostate cancer (CMS/HCC) Neuropathy Social History Tobacco Use Types Packs/Day [...] Due Date Last Done Comments RSV Immunization Adult Patients (1 - 1-dose 75+ series) 2019 Cholesterol [...] AND DIFFERENTIAL STAT 10/19/2024 4:21 AM EST from Last 3 Months Results * (ABNORMAL) Urinalysis with reflex microscopic and culture (10/19/2024 5:38 AM EST) Specific [place] Urine 1.020 1.003 - 1.030 LAB URINALYSIS - AUTOMATED METHOD 10/19/2024 6:[address] [facility] pH, Urine 8.5(A) 5.0 - 8.0 pH LAB URINALYSIS - AUTOMATED METHOD 10/19/2024 6:50 AM [facility] Leukocytes, Urine Large(A) Negative LAB URINALYSIS - AUTOMATED METHOD 10/19/2024 6:50 AM [facility] Nitrite, Urine Negative Negative LAB URINALYSIS - AUTOMATED METHOD 10/19/2024 6:50 AM [facility] Protein, Urine 300(A) <=Trace mg/dL LAB URINALYSIS - AUTOMATED METHOD 10/19/2024 6:50 AM [facility] Glucose, Urine Negative Negative mg/dL LAB URINALYSIS - AUTOMATED METHOD 10/19/2024 6:50 AM [facility] Ketones, Urine Negative Negative mg/dL LAB URINALYSIS - AUTOMATED METHOD 10/19/2024 6:50 AM [facility] Urobilinogen, Urine 0.2 0.2 - 1.0 mg/dL LAB URINALYSIS - AUTOMATED METHOD 10/19/2024 6:50 AM [facility] Bilirubin, Urine Negative Negative LAB URINALYSIS - AUTOMATED METHOD 10/19/2024 6:50 AM [facility] Blood, Urine Large(A) Negative LAB URINALYSIS - AUTOMATED METHOD 10/19/2024 6:50 AM [facility] RBC, Urine 292.8(H) 0 - 4 /HPF LAB URINALYSIS - AUTOMATED METHOD 10/19/2024 6:50 AM [facility] WBC, Urine 9.2(H) 0 - 4 /HPF LAB URINALYSIS - AUTOMATED METHOD 10/19/2024 6:50 AM [facility] Squamous Epithelial, Urine >100(H) 0 - 60 /LPF LAB URINALYSIS - AUTOMATED METHOD 10/19/2024 6:50 AM [facility] Bacteria, Urine Few(A) Negative /HPF LAB URINALYSIS - AUTOMATED METHOD 10/19/2024 6:[address] [facility] Hyaline Casts, Urine 63.9(H) 0 - 3 /LPF LAB URINALYSIS - AUTOMATED METHOD 10/19/2024 6:50 AM [facility] Urine Urine specimen obtained by clean catch procedure / Unknown Non-blood Collection / Unknown 10/19/2024 5:38 AM EST 10/19/2024 6:20 AM EST Jef PATRICK LAB URINE ORDERABLES Final Resul t Performing Organization Address City/[facility]/ZIP Co de Phone Number [facility] [address] [place] [address], [place] [phone] * Lan urine culture tube (10/19/2024 5:38 AM EST) Extra Tube Hold for add-ons. 10/19/2024 8:01 AM [facility] Comment:Auto resulted. Urine Urine specimen obtained by clean catch procedure / Unknown Non-blood Collection / Unknown 10/19/2024 5:38 AM EST 10/19/2024 6:20 AM EST us Jef PATRICK LAB URINE ORDERABLES Final Resul t Performing Organization Address City/[facility]/ZIP Co de Phone Number [facility] [address] [place] [address], [place] [phone] * Culture urine (10/19/2024 5:38 AM EST) Culture, Urine No growth 10/20/2024 8:31 AM [facility] Urine Urine specimen obtained by clean catch procedure / Unknown Non-blood Collection / Unknown 10/19/2024 5:38 AM EST 10/19/2024 6:50 AM EST us Jef PATRICK LAB MICROBIOLOGY - GENERAL ORDER MALATHI Final Result [facility] [address] [place] [address], * (ABNORMAL) CBC auto differential (10/19/2024 4:21 AM EST) [facility] Signature WBC 8.7 4.8 - 10.8 K/mcL LAB HEMETOLOGY METHOD 10/19/2024 4:28 AM [facility] RBC 4.10(L) 4.50 - 5.50 M/mcL LAB HEMETOLOGY METHOD 10/19/2024 4:28 AM [facility] Hemoglobin 10.8(L) 13.5 - 17.5 g/dL LAB HEMETOLOGY METHOD 10/19/2024 4:28 AM [facility] Hematocrit 33.6(L) 42.0 - 54.0 % LAB HEMETOLOGY METHOD 10/19/2024 4:28 AM [facility] MCV 81.8 79.0 - 98.0 FL LAB HEMETOLOGY METHOD 10/19/2024 4:28 AM [facility] MCH 26.3(L) 27.0 - 32.0 pcg LAB HEMETOLOGY METHOD 10/19/2024 4:28 AM [facility] MCHC 32.1 32.0 - 37.0 g/dL LAB HEMETOLOGY METHOD 10/19/2024 4:28 AM [facility] RDW 12.8 11.0 - 15.0 % LAB HEMETOLOGY METHOD 10/19/2024 4:28 AM [facility] Platelets 351 130 - 400 K/mcL LAB HEMETOLOGY METHOD 10/19/2024 4:28 AM [facility] MPV 9.2 7.0 - 11.0 FL LAB HEMETOLOGY METHOD 10/19/2024 4:28 AM [facility] NRBC 0.0 <1.0 % LAB HEMETOLOGY METHOD 10/19/2024 4:28 AM [facility] NRBC Absolute 0.00 <0.10 K/mcL LAB HEMETOLOGY METHOD 10/19/2024 4:28 AM [facility] Neutrophils Relative 82.1 % LAB HEMETOLOGY METHOD 10/19/2024 4:28 AM [facility] Lymphocytes Relative 10.1 % LAB HEMETOLOGY METHOD 10/19/2024 4:28 AM [facility] Monocytes Relative 5.7 % LAB HEMETOLOGY METHOD 10/19/2024 4:28 AM [facility] Eosinophils Relative 0.6 % LAB HEMETOLOGY METHOD 10/19/2024 4:28 AM [facility] Basophils Relative 0.7 % LAB HEMETOLOGY METHOD 10/19/2024 4:28 AM [facility] Immature Granulocytes Relative 0.8 % LAB HEMETOLOGY METHOD 10/19/2024 4:28 AM [facility] Neutrophils Absolute 7.14(H) 1.50 - 7.00 K/mcL LAB HEMETOLOGY METHOD 10/19/2024 4:28 AM [facility] Lymphocytes Absolute 0.88(L) 1.00 - 5.00 K/mcL LAB HEMETOLOGY METHOD 10/19/2024 4:28 AM [facility] Monocytes Absolute 0.50 0.20 - 1.00 K/mcL LAB HEMETOLOGY METHOD 10/19/2024 4:28 AM [facility] Eosinophils Absolute 0.05 0.00 - 0.50 K/mcL LAB HEMETOLOGY METHOD 10/19/2024 4:28 AM [facility] Basophils Absolute 0.06 0.00 - 0.20 K/mcL LAB HEMETOLOGY METHOD 10/19/2024 4:28 AM [facility] Immature Granulocytes Absolute 0.07(H) 0.00 - 0.03 K/mcL LAB HEMETOLOGY METHOD 10/19/2024 4:28 AM [facility] Blood Venous blood specimen / Unknown Venipuncture / Unknown 10/19/2024 4:21 AM EST 10/19/2024 4:25 AM EST Jef PATRICK LAB BLOOD ORDERABLES Final Resul t [facility] [address] [place] [address], [place] [phone] * (ABNORMAL) Basic metabolic panel (10/19/2024 4:21 AM EST) Sodium 137 133 - 145 mmol/L LAB CHEMISTRY METHOD 10/19/2024 4:43 AM [facility] Potassium 4.1 3.5 - 5.5 mmol/L LAB CHEMISTRY METHOD 10/19/2024 4:43 AM [facility] Chloride 108 96 - 110 mmol/L LAB CHEMISTRY METHOD 10/19/2024 4:43 AM [facility] CO2 23 21 - 32 mmol/L LAB CHEMISTRY METHOD 10/19/2024 4:43 AM [facility] Anion Gap 6 3 - 11 LAB CHEMISTRY METHOD 10/19/2024 4:43 AM [facility] Glucose 117(H) 70 - 100 mg/dL LAB CHEMISTRY METHOD 10/19/2024 4:43 AM [facility] BUN 22 5 - 25 mg/dL LAB CHEMISTRY METHOD 10/19/2024 4:43 AM [facility] Creatinine 1.53(H) 0.70 - 1.30 mg/dL LAB CHEMISTRY METHOD 10/19/2024 4:43 AM [facility] eGFR 46(L) >=60 mL/min/1. 73m2 LAB CHEMISTRY METHOD 10/19/2024 4:[address] [facility] Comment:Calculation based on the??Chronic Kidney Disease Epidemiology Collaboration (CKD-EPI) equation refit??without adjustment for race. BUN/Creatinine Ratio 14.4 LAB CHEMISTRY METHOD 10/19/2024 4:[address] [facility] Calcium 9.0 8.5 - 10.5 mg/dL LAB CHEMISTRY METHOD 10/19/2024 4:43 AM [facility] Blood Venous blood specimen / Unknown Venipuncture / Unknown 10/19/2024 4:21 AM EST 10/19/2024 4:25 AM EST Jef PATRICK LAB BLOOD ORDERABLES Final Resul t [facility] [address] [place] [address], from Last 3 Months Insurance MEDICAID - [place] Care Teams Cell Preparer Relationship Specialty Start Date End Date Erik Hill PA [address] [place] [address] PCP - General Internal Medicine 10/19/24
--- OUTSIDE RECORDS SUMMARY | 2024-12-21 12:59 | XMS_ITS | Encounter Summary ---
Author Name [place] Address [address] [place] [address] Care Team Providers Care Customer Care Representative Name Role Phone ROWENA ROY Primary Care [...] to Policy Segal [facility] ([facility]) MEDICARE [facility] INDIV IDUAL - [place] Sep 21, 2023 [id number] [phone] MARVIN DUGANI S [facility] ADVANTAGE [facility] ([facility]) Sep 21, 2023 [id number] [phone] DUGAN,GENET S PATIENT HUSKY MEDICAID HUSKY PLAN May 22, 2022 MEDICAI D [id number] MARVIN DUGANI S PATIENT MEDICARE ([facility]) MEDICARE (M) PART B May 22, 2022 PART B [id number] DUGAN,GENET S PATIENT MEDICARE ([facility]) MEDICARE (M) PART A Feb 19, 2009 PART A [id number] DUGAN,GENET S PATIENT MEDICARE PART D (WNR) MEDICARE (M) PART D Jul 22, 2022 PART D [id number] [phone] GENET DUGAN S PATIENT [facility] (WNR) MEDICARE ADVANTAGE MCR (WNR) Sep 21, 2022 [id number] GENET DUGAN S PATIENT [facility] (WNR) MEDICARE ADVANTAGE MCR (WNR) Sep 21, 2022 [id number] [phone] GENET DUGAN PATIENT Selected Encounter This section includes the information on record at [place] for the Encounter. Date/Time Encounter Type Encounter Description Reason Pro vider Source Nov 14, 2024 09:43 AM Outpatient Encounter ADMIN PAT ACTIVTIES (MASNONCT) [...] The data comes from all [place] treatment [facility]. Appointment Date/Time Appointment Type Appointme nt Facility Name Nov 24, 2024 03:00 PM AMBULATORY - MEDICINE [facility] Nov 25, 2024 08:00 AM AMBULATORY - MEDICINE [facility] Dec 13, 2024 01:30 PM AMBUL[facility] Jan 02, 2025 10:00 AM AMBULATORY - MEDICINE [facility] Apr 20, 2025 02:30 PM AMBULATORY - MEDICINE [facility] Active, Pending, and Scheduled Orders This section includes a listing of several types of active, pending, and scheduled orders, including clinic medications orders, diagnostic test orders, procedure orders and consult orders; where the start date of the order is 45 days before the date of the Encounter or 45 days after the date of theEncounter. The data comes from all [facility]. Test Date/Time Test Type Test Details Facility Name Nov 10, 2024 10:29 AM Consult Order COMMUNITY CARE-RADIATION ONCOLOGY Cons [employer] [facility] Nov 24, 2024 02:21 PM Consult Order COMMUNITY CARE-GE SKILLED HOME CARE Cons [employer] [facility] Dec 13, 2024 12:00 AM Laboratory - Chemi stry Order BASIC METABOLIC PANEL (non-fasting) BLOOD (SST-SERUM) [facility] Dec 13, 2024 12:00 AM Laboratory - Chemi stry Order LIPID PANEL, NON FASTING BLOOD (SST-SERUM) [facility] Dec 13, 2024 12:00 AM Laboratory - Chemi stry Order LIVER FUNCTION BLOOD (SST-SERUM) [facility] Dec 13, 2024 12:00 AM Laboratory - Chemi stry Order CBC AND DIFF (AUTO) BLOOD (LAV-BLOOD) [facility] Dec 13, 2024 12:00 AM Laboratory - Chemi stry Order HEMOGLOBIN A1C PANEL BLOOD (LAV-BLOOD) [facility] 25, 2025 12:00 AM Laboratory - Chemi stry Order TSH BLOOD (SST-SERUM) [facility] Dec 13, 2024 01:51 PM Consult Order TELE-EYE S CREENING CONSULT/SPOPC (OUTPT) Cons [employer] [facility] Advance Directives: All historical and current [...] Encounter. Date/Time Encounter Note(s) Provider Source Nov 14, 2024 09:43 AM CAREGIVER CERTIFIC ATE: LOCAL TITLE: [facility] ADMINISTRATIVE NOTE STANDARD TITLE: CAREGIVER CERTIFICATE DATE OF NOTE: NOV 14, 2024@09:43 ENTRY DATE: NOV 14, 2024@09:43:44 AUTHOR: VINCE SCHMIDT COSIGNER: URGENCY: STATUS: COMPLETED Date: 11/14/2024 Caregiver Support Program received an application from Emerson and granddaughter for the Comprehensive Assistance to the Family Caregiver Program. HIPAA compliant voicemail left and financial writer requested return call to schedule a time to discuss the application and associated process. Plan: CSP staff to await contact and continue outreach attempts to and relative to begin processing [employer] application. /mariana/ [place] CASTLE Superintendent Service/GEC/Caregiver Service Or Work Dispatcher Signed: 11/14/2024 09:44 VINCE SCHMIDT [facility] ([id number])
--- OUTSIDE RECORDS SUMMARY | 2024-12-21 13:00 | XMS_ITS | Encounter Summary ---
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 Organization [place] Address [address] [place] [address] Care Team Providers Care Tig Welder Name Role Phone ROWENA ROY Primary Care [...] Segal's Name Patient's Relationship to Policy Segal [facility]) MEDICARE ADVANTAGE [place] INDIV IDUAL - [place] Sep 21, 2023 [id number] [phone] GENET DUGAN S [facility]) MEDICARE [facility] ([facility]) Sep 21, 2023 [id number] [phone] GENET DUGAN S PATIENT [place] MEDICAID H[place] PLAN May 22, 2022 MEDICAI D [id number] GENET DUGAN S PATIENT MEDICARE ([facility]) MEDICARE () PART B May 22, 2022 PART B [id number] GENET DUGAN S PATIENT MEDICARE (WNR) MEDICARE () PART A Feb 19, 2009 PART A [id number] GENET DUGAN S PATIENT MEDICARE PART D (WNR) MEDICARE (M) PART D Jul 22, 2022 PART D [id number] [id number] [phone] GENET DUGAN S PATIENT [facility] (WNR) MEDICARE ADVANTAGE [facility] (WNR) Sep 21, 2022 [id number] GENET DUGAN S PATIENT [facility] MCR (WNR) MEDICARE ADVANTAGE [facility] (WNR) Sep 21, 2022 [id number] [phone] GENET DUGAN PATIENT Selected Encounter This section includes the information on record at [place] for the Encounter. Date/Time Encounter Type Encounter Description Reason Provider Source Jun 21, 2024 09:00 AM OFFICE O/P EST MOD 30 MIN PRIMARY CARE/MEDICINE ICD-10-CM Z01.810 Encounter for preprocedural cardiovascular examination GAVIOTA VERDUZCO [place] Encounter Template Text not used by [place] Assessments - Encounter Diagnoses This section includes the primary and secondary diagnoses documented for the Encounter. Date/Time Primary/Secondary Diagnosis Diagnosis Name Provider Source Jun 30, 2024 01:24 PM PRIMARY Encounter for preprocedural cardiovascular examination HAYLEY VERDUZCO [place] Plan of Treatment: Future Appointments (+ 6 [...] - MEDICINE [place] [facility] [place] [facility] Aug 16, 2024 12:00 PM AMBULATORY - NONE [facility] [place] [facility] Aug 22, 2024 11:20 AM AMBULATORY - MEDICINE [facility] [place] [facility] Aug 24, 2024 11:00 AM AMBULATORY - MEDICINE [facility] Sep 01, 2024 11:00 AM AMBULATORY - NONE [facility] [place] [facility] Sep 07, 2024 03:00 PM AMBULATORY - MEDICINE [place] [facility] [facility] Nov 09, 2024 09:00 AM AMBULATORY - MEDICINE [place] [facility] [place] [facility] Nov 24, 2024 03:00 PM AMBULATORY - MEDICINE [place] [facility] [place] [facility] Nov 25, 2024 08:00 AM AMBULATORY - MEDICINE [place] [facility] [place] [facility] Dec 13, 2024 01:30 PM AMBULATORY - MEDICINE [facility] Social History: Smoking Status (Most current) and Tobacco Use (All prior to encounter date) This section includes the most current, and the historical, smoking and tobacco- related health factors from the [place] facility where the Encounter took place. Current Smoking Status This section includes the most current smoking, or tobacco-related health factor, from the [place] facility where the Encounter took place. Date/Time Current Smoking Status Comment Facil [facility] May 31, 2024 10:00 AM VA-TOBACCO NEVER USED [place] Tobacco Use History This section includes a history of the smoking, or tobacco-related health factors, that were collected on or before the date of the Encounter. The data comes from the [place] facility where the Encounter took place. Date/Time Smoking Status/Tobacco Use Comment F acility Jun 23, 2023 09:00 AM VA-TOBACCO FORMER USER [place] Jun 23, 2023 09:00 AM VA-TOBACCO QUIT 15 YRS OR MORE [place] May 01, 2022 01:30 PM VA-TOBACCO FORMER USER [place] May 01, 2022 01:30 PM VA-TOBACCO QUIT 15 YRS OR MORE [place] Apr 15, 2021 03:00 PM VA-TOBACCO FORMER USER [place] Apr 15, 2021 03:00 PM VA-TOBACCO QUIT 15 YRS OR MORE [place] Oct 20, 2018 12:53 PM VA-TOBACCO FORMER USER [place] Oct 20, 2018 12:53 PM VA-TOBACCO QUIT 15 YRS OR MORE [place] Jul 03, 2017 10:33 AM QUIT TOBACCO USE > 7 YEARS AGO quit 25yrs ago [place] February 13, 2016 08:46 AM LIFETIME NON-TOBACCO USER [place] Advance Directives: All historical and current Section Date Range: From patient's date of to the date document was created. This section includes ALL of a patient's completed or amended [place] Advance and Rescinded Directives. The entries below indicate that a directive exists for the patient, but an actual copy is not included with this document. The data comes from all [facility]. Date Advance Directives Provider Source Apr 04, 2024 ADVANCE DIRECTIVE LEILA,CHAPINCITO M [facility] Encounter Notes: All associated encounter notes This section contains the clinical notes associated to the Encounter. Date/Time Encounter Note(s) Provider Source Jun 21, 2024 10:05 AM LETTERS: LOCAL TITLE: PATIENT LETTER (T) STANDARD TITLE: LETTERS DATE OF NOTE: JUN 21, 2024@10:05 ENTRY DATE: JUN 21, 2024@10:05:33 AUTHOR: NOLAN VERDUZCO EXP COSIGNER: URGENCY: STATUS: COMPLETED DEPARTMENT OF [facility] Toll Free Number Primary Care Telephone Assistance can be reached at extension [phone] [facility] scheduling can be reached at extension [phone] [facility] scheduling can be reached at [...] Detected [631] Comment: Test performed on the Clavister Genexpert. A negative test results does not exclude the possibility of infection because results may be affected by improper specimen collection, concurrent antibiotic therapy, or the number of organisms in the specimen which may be below the sensitivity of the test. = Sincerely, Your Primary Care Team [facility] [address] [place] [address] [place] [address] [phone] [facility] [address] [place] [address] [address] [place] [address] [place] [address] [phone] [facility] [address] [place] [address] [place] [address] [phone] NOLAN VERDUZCO [place] Jun 21, 2024 09:44 AM PREVENTIVE MEDICIN [...] LPN LPN Signed: 06/21/2024 09:45 ISABEL FREDERICK [place] Jun 21, 2024 08:33 AM PHYSICIAN NOTE: [...] aches and pains which he just takes ycns-aay-cybrdnx Tylenol with good resolution. He did report [...] routine labs. He anticipated gogin back to [place] by six months. RTC 6mos Problem list [...] 5. Paraesthesia of lower extremity (SNOMED CT [id number]) previously on gabapentin recently with objective signs of dminished circulation to LEFT foot only initial screen for metabolic/nutritional causes of neuropathy unrevealing No show to neurology NCS, Summer 2020 No show to Vascular consult, Summer 2020 6. status post appendectomy 7. Diverticular disease normal colonoscopy August, 8. Osteoarthritis (SNOMED CT [id number]) C/S worst at C6-C7 09/06 mod OA Interphalamgeal joint right thumb 09/06 9. Generalized anxiety disorder 10. Epilepsy [facility] [phone], CELINA Link OV 12-05-15 11. Essential hypertension [facility] [phone], CELINA Link OV 12-05-15 12. Atypical chest pain [facility] [phone], Eusebio CELINA Willams OV 12-05-15 02/13/16 EKG NSR 12/30/17 EKG [...] MD PHYSICIAN Signed: 06/30/2024 13:24 NOLAN VERDUZCO [place]
--- OUTSIDE RECORDS SUMMARY | 2024-12-21 13:00 | XMS_ITS | Encounter Summary ---
Author Name [place] Address [address] [place] [address] Care Team Providers Care Collections Professional Name Role Phone ROWENA ROY Primary [...] Patient's Relationship to Policy Segal [facility] MEDICARE ADVANTAGE [place] INDIV IDUAL - [place] Sep 21, 2023 [id number] [phone] GENET [facility]UGAN S [facility] MEDICARE ADVANTAGE [facility] ([facility]) Sep 21, 2023 [id number] [phone] DUGAN,GENET S PATIENT HUSKY MEDICAID HUSKY PLAN May 22, 2022 MEDICAI D [id number] MARVIN DUGANI S PATIENT MEDICARE ([facility]) MEDICARE (M) PART B May 22, 2022 PART B [id number] DUGAN,GENET S PATIENT MEDICARE ([facility]) MEDICARE (M) PART A Feb 19, 2009 PART A [id number] DUGAN,GENET S PATIENT MEDICARE PART D (WNR) MEDICARE (M) PART D Jul 22, 2022 PART D [id number] [phone] GENET DUGAN PATIENT [facility] (WNR) MEDICARE ADVANTAGE [facility] (WNR) Sep 21, 2022 [id number] GENET DUGAN PATIENT [facility] (WNR) MEDICARE ADVANTAGE MCR (WNR) Sep 21, 2022 [id number] [phone] GENET DUGAN PATIENT Selected Encounter This section [...] borderline findings, low risk, bilateral MERHAR,CAROL B [place] [facility] [place] [place] [facility] Plan of Treatment: Future Appointments (+ [...] 22, 2024 02:30 PM AMBULATORY - MEDICINE [place] [facility] [place] [facility] Feb 26, 2024 01:00 PM AMBULATORY - MEDICINE [facility] Feb 26, 2024 01:15 PM [facility] Mar 10, 2024 09:00 AM AMBULATORY - NONE [place] [facility] [place] [facility] Mar 18, 2024 09:30 AM AMBULATORY - MEDICINE [place] [facility] [facility] Mar 21, 2024 09:30 AM AMBULATORY - MEDICINE [place] [facility] [place] [facility] Apr 07, 2024 08:30 AM AMBULATORY - MEDICINE [facility] [place] [facility] Apr 15, 2024 02:30 PM AMBULATORY - MEDICINE [facility] [place] [facility] Apr 27, 2024 10:00 AM AMBULATORY - MEDICINE [facility] [place] [facility] May 13, 2024 11:00 AM AMBULATORY - MEDICINE [facility] [place] [facility] May 31, 2024 10:00 AM AMBULATORY - MEDICINE [facility] [place] [facility] Jun 03, 2024 12:45 PM AMBULATORY - MEDICINE [facility] [place] [facility] Jun 21, 2024 09:00 AM AMBULATORY - MEDICINE [place] [facility] [place] [facility] Advance Directives: All historical and [...] if vision declines or interferes with ADLs -[place] repeated back the plan and education. -Referral for cataract consult /mariana/ TESS ELIZONDO OPTOMETRY STUDENT Signed: 12/31/2023 11:57 /mariana/ CAROL HOLLOWAY OD Assurance Assistant Cosigned: 01/01/2024 15:13 01/01/2024 ADDENDUM STATUS: COMPLETED The optometry health information internship participated in this exam, I saw this in conjunction with the optometry student. The visual images were captured by the optometry health dental equipment technician. Results of testing assessed by the student and reviewed by myself. I agree with the stated findings, assessment and plan. I have added/edited the documentation to reflect my exam findings and changes to the assessment and plan. /viky HOLLOWAY OD Assurance Assistant Signed: 01/01/2024 15:14 TESS ELIZONDO [facility]L [facility]
--- OUTSIDE RECORDS SUMMARY | 2024-12-21 13:00 | XMS_ITS | Encounter Summary ---
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 Address [address] [place] [id number] Care Team Providers Care Generation Technician Name Role Phone ROWENA ROY Primary Care Provider [facility] Insurance Providers: All historical and [...] to Policy Segal [facility]) MEDICARE ADVANTAGE [place] IN[place] IDUAL - [place] Sep 21, 2023 [id number] [phone] GENET DUGAN S [facility] MEDICARE [facility] ([facility]) Sep 21, 2023 [id number] [phone] GENET DUGAN S PATIENT HUSKY MEDICAID [place] PLAN May 22, 2022 MEDICAI D [id number] GENET DUGAN S PATIENT MEDICARE ([facility]) MEDICARE () PART B May 22, 2022 PART B [id number] [phone] GENET DUGAN S PATIENT MEDICARE (WNR) MEDICARE () PART A Feb 19, 2009 PART A [id number] [phone] GENET DUGAN S PATIENT MEDICARE PART D (WNR) MEDICARE (M) PART D Jul 22, 2022 PART D [id number] [phone] DUGAN,GENET S PATIENT [facility] (WNR) MEDICARE ADVANTAGE [facility] (WNR) Sep 21, 2022 [id number] [phone] DUGAN,GENET S PATIENT [facility] (WNR) MEDICARE ADVANTAGE [facility] (WNR) Sep 21, 2022 [id number] DUGAN,GENET S PATIENT Selected Encounter This section includes the information on record at [place] for the Encounter. 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 Date/Time Primary/Secondary Diagnosis Diagnosis Name Provider Source Apr 27, 2024 10:38 AM PRIMARY Carcinoma in situ of prostate MONICA RAMACHANDRAN CEASAR Apr 27, 2024 10:38 AM SECONDARY Generalized anxiety disorder LUBAMONICA MARTINEZ MANY Plan of Treatment: Future Appointments (+ 6 [...] 13, 2024 11:00 AM AM[place]UL[place]IC[place] [facility] May 31, 2024 10:00 AM AM[place]ULAT[place] [facility] [facility] Jun 03, 2024 12:45 PM AMBULATORY [place]ICINE [place] [facility] Jun 21, 2024 09:00 AM AMBULATORY - MEDICINE [facility] [place] Aug 09, 2024 09:00 AM AMBULATORY [place]ICINE [place] [facility] [facility] Aug 16, 2024 12:00 PM AMBULATORY - NONE [facility] [place] [facility] Aug 22, 2024 11:20 AM AMBULATORY - MEDICINE [facility] Aug 24, 2024 11:00 AM [facility] Sep 01, 2024 11:00 AM [facility]UL[facility]ORY - NONE [facility] Sep 07, 2024 03:00 PM [facility]ULAT[facility]INE [facility] Active, Pending, and Scheduled Orders This [...] Order MICROALBUMIN CREATININE RATIO PANEL URINE (RANDOM) [facility] Mar 19, 2024 12:00 AM Laboratory - Chemistry Order FOLATE BLOOD (SST-SERUM) [facility] Mar 19, 2024 12:00 AM Laboratory - Chemistry Order VITAMIN B12 BLOOD (SST-SERUM) [facility] Mar 19, 2024 12:00 AM Laboratory - Chemistry Order VITAMIN D 25-OH (Therapy monitor) BLOOD (SST-SERUM) [facility] Mar 19, 2024 12:00 AM Laboratory - Chemistry Order BASIC METABOLIC PANEL (fasting) BLOOD (SST-SERUM) [facility] Mar 19, 2024 12:00 AM Laboratory - Chemistry Order LIPID PANEL FASTING BLOOD (SST-SERUM) [facility] Mar 19, 2024 12:00 AM Laboratory - Chemistry Order LIVER FUNCTION BLOOD (SST-SERUM) [facility] Mar 19, 2024 12:00 AM Laboratory - Chemistry Order CBC AND DIFF (AUTO) BLOOD (LAV-BLOOD) [facility] Mar 19, 2024 12:00 AM Laboratory - Chemistry Order HEMOGLOBIN A1C PANEL BLOOD (LAV-BLOOD) [facility] Mar 19, 2024 12:00 AM Laboratory - Chemistry Order TSH BLOOD (SST-SERUM) [facility] Mar 19, 2024 12:00 AM Laboratory - Chemistry Order PSA BLOOD (SST-SERUM) [facility] Social History: Smoking Status (Most [...] 23, 2023 09:00 AM VA-TOBACCO FORMER USER MANY Tobacco Use History This section includes a history of the smoking, or tobacco-related health factors, that were collected on or before the date of the Encounter. The data comes from the [place] facility where the Encounter took place. Date/Time Smoking Status/Tobacco Use Comment F acility Jun 23, 2023 09:00 AM VA-TOBACCO QUIT 15 YRS OR MORE MANY May 01, 2022 01:30 PM VA-TOBACCO FORMER USER MANY May 01, 2022 01:30 PM VA-TOBACCO QUIT 15 YRS OR MORE MANY Apr 15, 2021 03:00 PM VA-TOBACCO FORMER USER MANY Apr 15, 2021 03:00 PM VA-TOBACCO QUIT 15 YRS OR MORE MANY Oct 20, 2018 12:53 PM VA-TOBACCO FORMER USER MANY Oct 20, 2018 12:53 PM VA-TOBACCO QUIT 15 YRS OR MORE MANY Jul 03, 2017 10:33 AM QUIT TOBACCO USE > 7 YEARS AGO quit 25yrs ago MANY February 13, 2016 08:46 AM LIFETIME NON-TOBACCO USER MANY Advance Directives: All historical and current Section [...] EXP COSIGNER: URGENCY: STATUS: COMPLETED DEPARTMENT OF [facility] Toll Free Number Primary Care Telephone Assistance can be reached at extension [phone] [facility] scheduling can be reached at extension [phone] [facility] scheduling can be reached at ext [phone] APR 27, 2024 Outpatient [place] Clinic [facility] Re: JAKE DUGAN To Whom It May Concern: I am writing on behalf of my patient who has requested a letter concerning his diagnosis of prostate cancer. Prostate cancer is currently under treatment by [facility] urology. Understandably this diagnosis is distressed the [...] Primary Care Sincerely, Your Primary Care Team [facility] [address] [id number] [place] [address] [facility] [address] [place] [address] [place] [address] [facility] [address] [facility] [place] [address] [place] [address] NOLAN RAMACHANDRAN MANY Apr 27, 2024 10:09 AM PREVENTIVE MEDICIN E NURSING NOTE: LOCAL TITLE: CLINICAL REMINDERS/NURSING STANDARD TITLE: PREVENTIVE MEDICINE NURSING NOTE DATE OF NOTE: APR 27, 2024@10:09 ENTRY DATE: APR 27, 2024@10:09:38 AUTHOR: TAMMIE DIAZ EXP COSIGNER: URGENCY: STATUS: COMPLETED Falls & Incontinence Screen: Falls Screen: 4. No falls within the past year. Incontinence Screen No incontinence. COVID-19 Immunization: Additional Information: [facility] Interim Clinical Considerations for Use of COVID-19 Vaccines in [facility] COVID-19 Vaccine [employer] /mariana/ TAMMIE DIAZ LPN LPN Signed: 04/27/2024 10:10 TAMMIE DIAZ MANY Apr 27, 2024 08:14 AM PHYSICIAN NOTE: [...] asked me for a letter from his coater smoking pipe to describe how the prostate cancer has [...] 5. Paraesthesia of lower extremity (SNOMED CT [id number]) previously on gabapentin recently with objective signs of dminished circulation to LEFT foot only initial screen for metabolic/nutritional causes of neuropathy unrevealing No show to neurology NCS, Summer 2020 No show to Vascular consult, Summer 2020 6. status post appendectomy 7. Diverticular disease normal colonoscopy August, 8. Osteoarthritis (SNOMED CT [id number]) C/S worst at C6-C7 09/06 mod OA Interphalamgeal joint right thumb 09/06 9. Generalized anxiety disorder 10. Epilepsy [place] [address], CELINA Link OV 12-05-15 11. Essential hypertension [place] [address], [place] Link OV 12-05-15 12. Atypical chest pain [place] [address], [place] Link OV 12-05-15 02/13/16 EKG NSR 12/30/17 EKG NSR PHYSICAL EXAMINATION/DIRECTED EXAM: BP:138/82 (04/27/2024 10:09) Resp:20 (03/21/2024 09:53) Temp:97 F [36.1 C] (04/27/2024 10:09) Pulse:88 (04/27/2024 10:09) WEIGHT 04/27/2024 10:09 184(83.46)[26] 03/21/2024 09:53 186(84.37)[27] 01/22/2024 15:44 184(83.46)[26] Comfortable S1S2 RRR lungs CTA Benign abdomen No edema ASSESSMENT & PLAN: 79 year old MALE SERVICE CONNECTED % - 50 [place] presents for follow-up. Much more at ease as his daughter is planing to vacate his house in 2 weeks. He's also happy that his urination is back to normal. Letter requested about his prostate cancer generated. Exam unchanged but also have encouraged him to do his routine labs. He anticipated gogin back to [place] by six months. Plan of care discussed [...] 11:00 CWM/SO/PACT 9 NURSING 06/03/2024 12:45 [facility] CARE-OPHTHALMOLOGY 06/21/2024 09:00 CWM/SO/PACT 9 01/02/2025 10:00 [...] MD PHYSICIAN Signed: 04/27/2024 10:38 NOLAN RAMACHANDRAN MANY
--- OUTSIDE RECORDS SUMMARY | 2024-12-21 13:00 | XMS_ITS | Clinical Summary ---
Author Organization [employer] Address [address] [facility] [address] [place] [address] Care Team Providers Care Auto Body Technician Name Role Phone Elijah Johnson MD Primary Care Prov ider Allergies Active Allergy Reactions Criticality Noted Date Comments Aspirin Hives 08/24/2024 Medications No known medications Active Problems Problem Noted Date Diagnosed Date Encounter for medical examination to establish c are 08/26/2024 Assessment & Plan (08/26/2024 1:50 PM EST): Last pcp followed 1 month ago, he is followed at [place] Hospitalization - ER: [facility] 2 months ago due to hematuria s/p wright catheter Pmhx: HTN, prostate cancer Pshx: appendix 2000 All- Meds: lisinopril 20mg, [id number] Prostate cancer 08/26/2024 Assessment & Plan (08/26/2024 1:54 PM EST): Patient [facility], he currently has a wright catether, wants second opinion, will refer to urology Primary hypertension 08/26/2024 Assessment & Plan (08/26/2024 1:57 PM EST): On lisinopril 20mg, continue low sodium diet, and exercise as tolerated, keep bp log, follow up in 1-2 months Encounters Date Type Department Care Team Description 10/11/[address] [facility] [address] [place] [address] Elijah Johnson MD 10/07/2024 Telephone [facility] [address] [place] [address] Elijah Johnson MD 10/04/[address] [facility] [address] [place] [address] Elijah Johnson MD No Show from Last 3 Months Family History Medical [...] on patient's age to complete this topic Insurance [employer] PPO Care Teams Auto Body Technician Relationship Specialty Start Date End Date Elijah Johnson MD [address] [place] [id number] PCP - General Internal Medicine 08/30/24
--- OUTSIDE RECORDS SUMMARY | 2024-12-21 13:00 | XMS_ITS | Encounter Summary ---
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 Organization [facility] [place] Address [address] [place] [id number] Care Team Providers Care Exterior Interior Specialist Name Role Phone ROWENA ROY Primary [...] INDIV IDUAL - MASS Sep 21, 2023 [id number] [phone] GENET DUGAN S [facility] ADVANTAGE [facility] ([facility]) Sep 21, 2023 [id number] [phone] MARVIN DUGANI S PATIENT HUSKY MEDICAID HUSKY PLAN May 22, 2022 MEDICAI D [id number] GENET DUGAN S PATIENT MEDICARE ([place]) MEDICARE (M) PART B May 22, 2022 PART B [id number] GENET DUGAN S PATIENT MEDICARE ([place]) MEDICARE (M) PART A Feb 19, 2009 PART A [id number] GENET DUGAN S PATIENT MEDICARE PART D ([place]) MEDICARE (M) PART D Jul 22, 2022 PART D [id number] [phone] GENET DUGAN S PATIENT [facility] (WNR) MEDICARE ADVANTAGE [facility] ([place]) Sep 21, 2022 [id number] GENET DUGAN S PATIENT [facility] (WNR) MEDICARE [facility] ([place]NR) Sep 21, 2022 [id number] [phone] GENET DUGAN S PATIENT Selected Encounter This section includes the information on record at [place] for the Encounter. 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 Date/Time Primary/Secondary Diagnosis Diagnosis Name Provider Source Sep 23, 2024 03:47 PM PRIMARY Carcinoma in situ of prostate MONICA VERDUZCO [place] Plan of Treatment: Future Appointments (+ 6 [...] - MEDICINE [place] [facility] [place] [facility] Aug 24, 2024 11:00 AM AMBULATORY - MEDICINE [facility] Sep 01, 2024 11:00 AM AMBULATORY - NONE [place] [facility] [facility] [place] [facility] Sep 07, 2024 03:00 PM AMBULATORY - [place]ICINE [place] [facility] [facility] [facility] Nov 09, 2024 09:00 AM AMBULATORY [place]ICINE [place] [facility] [facility] Nov 24, 2024 03:00 PM AMBULATORY [place]ICINE [place] [facility] [facility] [place] [facility] Nov 25, 2024 08:00 AM AMBULATORY - MEDICINE [facility] Dec 13, 2024 01:30 PM [facility] Jan 02, 2025 10:00 AM AM[facility]ULATORY - MEDICINE [facility] Lab Results: +/- 30 days of [...] Range Comment Aug 24, 2024 11:28 AM [place] CBC AND DIFF (AUTO) Specimen Type: BLOOD No comment entered. Ordering Provider: ROWENA ROY Report Released Date/Time: Aug 24, 2024 11:07 AM Reporting Lab: [address] [address] Performing Lab: [address] [address] WBC 8.84 10*3/uL 4.50-11.00 RBC 4.72 10*6/uL [...] 10*3/uL 0.00-0.00 Aug 24, 2024 11:28 AM [facility] MICROSCOPIC AUTOMATED, URINE Specimen Type: URINE Comment: If Glucose = >500 and Ketones are positive, please alert the Physician. Ordering Provider: MONICA VERDUZCO Report Released Date/Time: Aug 09, 2024 09:43 AM Reporting Lab: [address] [address] Performing Lab: [address] [address] UA WBC 0-5 /[HPF] 0-5 UA BACTERIA 1+ /[HPF] NoneObs UA TRIPLE PHOSPHATE CRYSTALS MODERATE /[HPF] Not Established UA RBC 6-10 /[HPF] H 0-3 Aug 24, 2024 11:28 AM [facility] URINALYSIS Specimen Type: URINE Comment: If Glucose = >500 and Ketones are positive, please alert the Physician. Ordering Provider: MONICA VERDUZCO Report Released Date/Time: Aug 09, 2024 09:43 AM Reporting Lab: [address] [address] Performing Lab: [address] [address] UA COLOR Light-Brown Yellow UA APPEARANCE Turbid Clear UA GLUCOSE Normal mg/dL Negative UA KETONES NEGATIVE mg/dL Negative UA BLOOD LARGE mg/dL Negative UA PROTEIN 100 mg/dL Negative UA NITRITE NEGATIVE mg/dL Negative UA BILIRUBIN NEGATIVE mg/dL Negative UA SPECIFIC GRAVITY 1.007 L 1.016-1.022 UA pH 8.5 5.0-9.0 UA UROBILINOGEN Normal mg/dL <2.0 UA LEUKOCYTE LARGE Negative Aug 08, 2024 10:59 AM [facility] VITAMIN D 25-OH (Therapy monitor) [...] For additional information, please refer to http://educatio n.Taodangpu.[employer]/faq/FAQ 199 (This link is being provided for informational/ educational purposes only.) This test was developed and its analytical performance characteristics have been determined by [place] It has not been cleared or approved by the U.S. Food and Drug Administration. This assay has been validated pursuant to the CLIA regulations and is used for clinical purposes. This test was developed and its analytical performance characteristics have been determined by [place] It has not been cleared or approved by the U.S. Food and Drug Administration. This assay has been validated pursuant to the CLIA regulations and is used for clinical purposes. Test Performed by [facility], [facility], [address] [place] [address] Dov Bahena M.D., Ph.D., Director of Laboratories , CLIA [id number] TEST PERFORMED AT: , Ordering Provider: MONICA VERDUZCO Report Released Date/Time: Aug 08, 2024 10:54 AM Reporting Lab: [facility] [address] [address] Performing Lab: [facility] [address] [address] VITAMIN D, 25-OH, TOTAL 51 ng/mL 30-100 VITAMIN D, 25-OH, D3 51 ng/mL VITAMIN D, 25-OH, D2 <4 ng/mL Aug 08, 2024 10:59 AM [facility] FOLATE (WROX) Specimen Type: SERUM No comment entered. Ordering Provider: MONICA VERDUZCO Report Released Date/Time: Aug 08, 2024 10:54 AM Reporting Lab: [place] [facility] [facility] [address] [address] Performing Lab: [place] [facility] [facility] [address] [facility] [address] FOLATE (WROX) 4.07 ng/mL L >5.2 Aug 08, 2024 10:59 AM [facility] MICROALBUMIN CREATININE RATIO PANEL Specimen Type: URINE No comment entered. Ordering Provider: MONICA VERDUZCO Report Released Date/Time: Aug 08, 2024 10:54 AM Reporting Lab: [facility] [place] [facility] [address] [address] Performing Lab: [facility] TRN [facility] [address] [address] MICROALBUMIN/ CREATININE RATIO 354.2 mg/g H 0-29.9 MICROALBUMIN, QUANTITATIVE 103.3 mg/dL RR UNAVAIL CREATININE URINE 291.68 mg/dL Aug 08, 2024 10:59 AM [facility] VITAMIN B12 Specimen Type: SERUM No comment entered. Ordering Provider: MONICA VERDUZCO Report Released Date/Time: Aug 08, 2024 10:54 AM Reporting Lab: [facility] [address] [address] Performing Lab: [facility] TRN [facility] [address] [address] VITAMIN B12 1849 pg/mL H 200-900 Aug 08, 2024 10:59 AM [facility]ITALRBRY[facility] LIPID PANEL FASTING Specimen Type: SERUM No comment entered. Ordering Provider: MONICA VERDUZCO Report Released Date/Time: Aug 08, 2024 10:54 AM Reporting Lab: [facility] [address] [address] Performing Lab: [facility]ITALRHILL [facility]TRN [facility]ITAL[facility]ETS [address] [address] CHOLESTEROL 178 mg/dL TRIGLYCERIDE 97 mg/dL 0-150 LDL calculated 97 mg/dL 0-129 CHOL/HDL 2.9 HDL CHOLESTEROL 62 mg/dL H 40-60 Aug 08, 2024 10:59 AM [facility] BASIC METABOLIC PANEL (fasting) Specimen Type: SERUM No comment entered. Ordering Provider: MONICA VERDUZCO Report Released Date/Time: Aug 08, 2024 10:54 AM Reporting Lab: [facility] [address] [address] Performing Lab: [facility] [address] [address] UREA NITROGEN 22 mg/dL 7-25 GLUCOSE 91 mg/dL 65-100 SODIUM 138 mmol/L 135-145 POTASSIUM 4.8 mmol/L 3.5-5.0 CHLORIDE 105 mmol/L 100-110 CO2 25 meq/L 20-30 CREATININE, Serum 0.99 mg/dL 0.50-1.40 eGFR(CKD-EPI 2020) 77 mL/min >60 Aug 08, 2024 10:59 AM [facility] LIVER FUNCTION Specimen Type: SERUM No comment entered. Ordering Provider: MONICA VERDUZCO Report Released Date/Time: Aug 08, 2024 10:54 AM Reporting Lab: [facility] [address] [address] Performing Lab: [address] [address] PROTEIN,TOTAL 6.7 g/dL 6.0-8.3 ALBUMIN 3.4 g/dL L 3.5-5.0 ALKALINE PHOSPHATASE 151 U/L H 40-150 AST 17 U/L 5-34 ALT 8 U/L BILIRUBIN, TOTAL 0.5 mg/dL 0.2-1.2 Aug 08, 2024 10:59 AM [facility] HEMOGLOBIN A1C PANEL Specimen Type: [...] 2024 10:54 AM Reporting Lab: [facility] W[facility] [address] [address] Performing Lab: [facility]RL TRN [facility] [address] [address] HEMOGLOBIN A1C 5.2 4.0-5.6 Aug 08, 2024 10:59 AM [facility]ITALRBRY[facility]N [facility] TSH Specimen Type: SERUM No comment entered. Ordering Provider: MONIAC VERDUZCO Report Released Date/Time: Aug 08, 2024 10:54 AM Reporting Lab: [facility]RL WSTRN [facility]ITAL[facility] [address] [address] Performing Lab: [facility]ITALRBRYAN [facility]ITALN [facility]ITALUSE[address] [address] TSH 1.93 u[IU]/mL 0.35-5.00 Aug 08, 2024 10:59 AM [facility] PSA Specimen Type: SERUM No comment entered. Ordering Provider: MONICA VERDUZCO Report Released Date/Time: Aug 08, 2024 10:54 AM Reporting Lab: [facility]ITALRL TRN [facility] [address] [address] Performing Lab: [facility]ITALRL [facility]ITALUSETS [address] [address] PSA 30.59 ng/mL H 0.00-4.00 Aug 08, 2024 10:59 AM [facility] CBC AND DIFF (AUTO) Specimen Type: BLOOD No comment entered. Ordering Provider: MONICA VERDUZCO Report Released Date/Time: Aug 08, 2024 10:54 AM Reporting Lab: [facility]ITALRL TRN [facility] [address] [address] Performing Lab: [facility]ITALRHILL [facility] COUNTYTRN [facility]ITALUSETS [address] [address] WBC 7.81 10*3/uL 4.50-11.00 RBC 4.88 10*6/uL [...] and tobacco- related health factors from the [place] facility where the Encounter took place. Current Smoking Status This section includes the most current smoking, or tobacco-related health factor, from the [place] facility where the Encounter took place. Date/Time Current Smoking Status Comment Ray [facility] May 31, 2024 10:00 AM [place]-TOBACCO NEVER USED [place] Tobacco Use History This section includes a history of the smoking, or tobacco-related health factors, that were collected on or before the date of the Encounter. The data comes from the [place] facility where the Encounter took place. Date/Time Smoking Status/Tobacco Use Comment F acility Jun 23, 2023 09:00 AM [place]-TOBACCO FORMER USER [place] Jun 23, 2023 09:00 AM [place]-TOBACCO QUIT 15 YRS OR MORE [place] May 01, 2022 01:30 PM [place]-TOBACCO FORMER USER [place] May 01, 2022 01:30 PM VA-TOBACCO QUIT 15 YRS OR MORE [place] Apr 15, 2021 03:00 PM VA-TOBACCO FORMER USER [place] Apr 15, 2021 03:00 PM VA-TOBACCO QUIT 15 YRS OR MORE [place] Oct 20, 2018 12:53 PM VA-TOBACCO FORMER USER [place] Oct 20, 2018 12:53 PM VA-TOBACCO QUIT 15 YRS OR MORE [place] Jul 03, 2017 10:33 AM QUIT TOBACCO USE > 7 YEARS AGO quit 25yrs ago [place] February 13, 2016 08:46 AM LIFETIME NON-TOBACCO USER [place] Advance Directives: All historical and current Section Date Range: From patient's date of to the date document was created. This section includes ALL of a patient's completed or amended [place] Advance and Rescinded Directives. The entries below indicate that a directive exists for the patient, but an actual copy is not included with this document. The data comes from all [facility]. Date Advance Directives Provider Source Apr 04, 2024 ADVANCE DIRECTIVE [facility] Radiology Reports: +/- 30 days [...] AM CHEST CT W/O CONT: JAKE DUGAN [id number] -1945 M Exm Date: SEP 01, 2024@10:54 Req Phys: LUBA,NOLAN Pat Loc: CWM/SO/PACT 9 (Req'g Loc) Img Loc: NHM/CT Service: Unknown [place] [facility] [place] [address] (Case [id number] COMPLETE) CT THORAX W/O CONT (CT Detailed) CPT:79827 Reason for Study: LDCT Clinical History: lung CA screen/surveillance as per protocol Report Status: Verified Date Reported: SEP 01, 2024 Date Verified: SEP 01, 2024 Housekeeper/Laundry Assistant E-Sig:/ES/STARR MCDANIEL JR Report: Study: Noncontrast CT [...] Codes: POSSIBLE MALIGNANCY Primary Interpreting Staff: STARR MCDANEIL JR, Radiologist (Housekeeper/Laundry Assistant) /STARR HERNANDEZ JR [facility] Aug 16, 2024 02:[address] ABDOMEN AND PELVIS WITH CONTRAST: JAKE DUGAN [id number] -1945 M Ex Date: AUG 16, 2024@14:04 Req Phys: NOLAN VERDUZCO Pat Loc: CWM/SO/PACT 9 (Req'g Loc) Img Loc: NH/CT Service: Unknown [facility] JOSE ROBERTO, CLAUDIA [address] (Case [id number] COMPLETE) CT ABDOMEN AND PELVIS WITH CONTRA(CT Detailed) CPT:89538 Contrast Media : Non-ionic Iodinated Reason for Study: prostate CA Clinical History: Report Status: Verified Date Reported: AUG 16, 2024 Date Verified: AUG 16, 2024 Housekeeper/Laundry Assistant E-Sig: Report: CT ABDOMEN AND PELVIS WITH [...] tumor infiltration. READING PHYSICIAN: Kwabena Perez M.D. -[phone] 08/16/2024 20:18 [facility] World[facility]ideradiology Program [phone] (For Medical Practitioner Use Only) Attention Patients / Veterans: If you have questions or concerns about these test results, please contact your ordering provider or primary care team. Primary Diagnostic Code: POSSIBLE MALIGNANCY Primary Interpreting Staff: RADIOLOGY,OUTSIDE SERVICE, Staff Physician / RADIOLOGY,OUTSIDE SERVICE [facility] Pathology Reports: +/- 30 days of [...] AM LR MICROBIOLOGY RE PORT: Reporting Lab: [facility] [CLIA# [id number]] [address] [place] [address] Accession [UID]: [id number] [[id number]] Received: Aug 24, 2024@11:28 Collection sample: URINE CLEAN CATCH Collection date: Aug 24, 2024 11:28 Site/Specimen: URINE Provider: NOLAN VERDUZCO Comment on specimen: POSITIVE CULTURE RESULTS MAY NOT REPRESENT CLINICAL INFECTION. CONSIDER NEED FOR ANTIBIOTICS IN THE CONTEXT OF UTI SYMPTOMS. Test(s) ordered: URINE CULTURE(MWROX).......... completed: Aug 29, 2024 08:33 * BACTERIOLOGY FINAL REPORT => Aug 29, 2024 08:32 TECH CODE: [id number] CULTURE RESULTS: 1. KLEBSIELLA OXYTOCA/RAOULTELLA ORNITHINOLYTICA - [...] Laboratory: Klebsiella Oxytoca/raoultella Ornithinolytica Performed By: [facility] [CLIA# [id number]] [address] [place] [address] Pseudomonas Aeruginosa Performed By: [facility] [CLIA# [id number]] [address] [place] [address] Bact Report Remark #1 Performed By: [facility] [CLIA# [id number]] [address] [place] [address] Bact Report Remark #2 Performed By: [facility] [CLIA# [id number]] [address] [place] [address] ENRIQUETA FLORES [place] Encounter Notes: All associated encounter notes This [...] IMAGING REPORTS SUMMARY pg. 1 JAKE DUGAN [id number] : 1945 II - Imaging Impression (max 1 occurrence) Date Procedure CPT Status Case # 08/16/2024 CT ABDOMEN AND PELVIS WITH [id number] Verified 109 CONTRAST 1. Findings suspicious for [...] tumor infiltration. READING PHYSICIAN: Kwabena Perez M.D. -[phone] 08/16/2024 20:18 [facility] National Teleradiology Program [phone] (For Medical Practitioner Use Only) Attention Patients / Veterans: If you have questions or concerns about these test results, please contact your ordering provider or primary care team. Discussed with staff. I'll break the unfortunate news after Thanksgiving. /mariana/ NOLAN VERDUZCO MD PHYSICIAN Signed: 08/17/2024 08:38 NOLAN VERDUZCO [place]
--- OUTSIDE RECORDS SUMMARY | 2024-12-21 13:00 | XMS_ITS | Encounter Summary ---
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 Organization [facility] [place] Address [address] [place] [id number] Care Team Providers Care Tugboat Pilot Name Role Phone ROEWNA MCDERMOTT Primary Care Provider [facility] [...] Segal's Name Patient's Relationship to Policy Segal [facility] [place] [facility]) MEDICARE ADVANTAGE [place] INDIV IDUAL - [place] Sep 21, 2023 [id number] [phone] GENET DUGAN S [facility] ([facility]) Sep 21, 2023 [id number] [phone] GENET DUGAN S PATIENT HUSKY MEDICAID HUSKY PLAN May 22, 2022 MEDICAI D [id number] GENET DUGAN S PATIENT MEDICARE ([facility]) MEDICARE () PART B May 22, 2022 PART B [id number] GENET DUGAN S PATIENT MEDICARE (WNR) MEDICARE () PART A Feb 19, 2009 PART A [id number] GENET DUGAN S PATIENT MEDICARE PART D (WNR) MEDICARE (M) PART D Jul 22, 2022 PART D [id number] [phone] DUGAN,GENET S PATIENT [facility] (WNR) MEDICARE ADVANTAGE [facility] (WNR) Sep 21, 2022 [id number] DUGAN,GENET S PATIENT [facility] (WNR) MEDICARE ADVANTAGE [facility] (WNR) Sep 21, 2022 [id number] [phone] GENET DUGAN S PATIENT Selected Encounter This [...] AMBULATORY - NONE [place] [facility] [place] [facility] Sep 07, 2024 03:00 PM AMBULATORY - MEDICINE [place] [facility] [place] [facility] Nov 09, 2024 09:00 AM AMBULATORY - MEDICINE [place] [facility] [place] [facility] Nov 24, 2024 03:00 PM AMBULATORY - MEDICINE [place] [facility] [facility] Nov 25, 2024 08:00 AM AMBULATORY - MEDICINE [place] [facility] [facility] Dec 13, 2024 01:30 PM AMBULATORY - MEDICINE [facility] Jan 02, 2025 10:00 AM AMBULATORY - MEDICINE [facility] Lab Results: +/- 30 [...] Range Comment Aug 24, 2024 11:28 AM [facility] CBC AND DIFF (AUTO) Specimen Type: BLOOD No comment entered. Ordering Provider: ROWENA MCDERMOTT Report Released Date/Time: Aug 24, 2024 11:07 AM Reporting Lab: [facility] [address] [facility] [address] Performing Lab: [facility] [address] [facility] [address] WBC 8.84 10*3/uL 4.50-11.00 RBC 4.72 10*6/uL [...] 10*3/uL 0.00-0.00 Aug 24, 2024 11:28 AM [facility] MICROSCOPIC AUTOMATED, URINE Specimen Type: URINE Comment: If Glucose = >500 and Ketones are positive, please alert the Physician. Ordering Provider: MONICA VERDUZCO Report Released Date/Time: Aug 09, 2024 09:43 AM Reporting Lab: [address] [address] Performing Lab: [address] [address] UA WBC 0-5 /[HPF] 0-5 UA BACTERIA 1+ /[HPF] NoneObs UA TRIPLE PHOSPHATE CRYSTALS MODERATE /[HPF] Not Established UA RBC 6-10 /[HPF] H 0-3 Aug 24, 2024 11:28 AM [facility] URINALYSIS Specimen Type: URINE Comment: If Glucose = >500 and Ketones are positive, please alert the Physician. Ordering Provider: MONICA VERDUZCO Report Released Date/Time: Aug 09, 2024 09:43 AM Reporting Lab: [address] [address] Performing Lab: [address] [address] UA COLOR Light-Brown Yellow UA APPEARANCE Turbid Clear UA GLUCOSE Normal mg/dL Negative UA KETONES NEGATIVE mg/dL Negative UA BLOOD LARGE mg/dL Negative UA PROTEIN 100 mg/dL Negative UA NITRITE NEGATIVE mg/dL Negative UA BILIRUBIN NEGATIVE mg/dL Negative UA SPECIFIC GRAVITY 1.007 L 1.016-1.022 UA pH 8.5 5.0-9.0 UA UROBILINOGEN Normal mg/dL <2.0 UA LEUKOCYTE LARGE Negative Aug 08, 2024 10:59 AM [facility] VITAMIN D 25-OH (Therapy [...] For additional information, please refer to http://educatio [email or web address]/faq/FAQ 199 (This link is being provided for informational/ educational purposes only.) This test was developed and its analytical performance characteristics have been determined by [employer] [place]. It has not been cleared or approved by the U.S. Food and Drug Administration. This assay has been validated pursuant to the CLIA regulations and is used for clinical purposes. This test was developed and its analytical performance characteristics have been determined by [employer] [place] [place] It has not been cleared or approved by the U.S. Food and Drug Administration. This assay has been validated pursuant to the CLIA regulations and is used for clinical purposes. Test Performed by [facility], [facility], [address] [place] [address] Dov Bahena M.D., Ph.D., Director of Laboratories , CLIA [id number] TEST PERFORMED AT: , Ordering Provider: MONICA VERDUZCO Report Released Date/Time: Aug 08, 2024 10:54 AM Reporting Lab: [facility] [address] [facility] [address] Performing Lab: [facility] [address] [address] VITAMIN D, 25-OH, TOTAL 51 ng/mL 30-100 VITAMIN D, 25-OH, D3 51 ng/mL VITAMIN D, 25-OH, D2 <4 ng/mL Aug 08, 2024 10:59 AM [facility] FOLATE (WROX) Specimen Type: SERUM No comment entered. Ordering Provider: MONICA VERDUZCO Report Released Date/Time: Aug 08, 2024 10:54 AM Reporting Lab: [facility] [place] [facility] [address] [address] Performing Lab: [facility] [address] [facility] [address] FOLATE (WROX) 4.07 ng/mL L >5.2 Aug 08, 2024 10:59 AM [facility] MICROALBUMIN CREATININE RATIO PANEL Specimen Type: URINE No comment entered. Ordering Provider: MONICA VERDUZCO Report Released Date/Time: Aug 08, 2024 10:54 AM Reporting Lab: [facility] [address] [facility] [address] Performing Lab: [facility] [address] [facility] [facility] [address] MICROALBUMIN/ CREATININE RATIO 354.2 mg/g H 0-29.9 MICROALBUMIN, QUANTITATIVE 103.3 mg/dL RR UNAVAIL CREATININE URINE 291.68 mg/dL Aug 08, 2024 10:59 AM [facility] VITAMIN B12 Specimen Type: SERUM No comment entered. Ordering Provider: MONICA VERDUZCO Report Released Date/Time: Aug 08, 2024 10:54 AM Reporting Lab: [facility] [address] [facility] [facility] [address] Performing Lab: [facility] [address] [facility] [facility] [address] VITAMIN B12 1849 pg/mL H 200-900 Aug 08, 2024 10:59 AM [facility] LIPID PANEL FASTING Specimen Type: SERUM No comment entered. Ordering Provider: MONICA VERDUZCO Report Released Date/Time: Aug 08, 2024 10:54 AM Reporting Lab: [facility] [address] [facility] [facility] [address] Performing Lab: [facility] [address] CHOLESTEROL 178 mg/dL TRIGLYCERIDE 97 mg/dL 0-150 LDL calculated 97 mg/dL 0-129 CHOL/HDL 2.9 HDL CHOLESTEROL 62 mg/dL H 40-60 Aug 08, 2024 10:59 AM [facility] BASIC METABOLIC PANEL (fasting) Specimen Type: SERUM No comment entered. Ordering Provider: MONICA VERDUZCO Report Released Date/Time: Aug 08, 2024 10:54 AM Reporting Lab: [facility] [address] [facility] [address] Performing Lab: [facility] [address] [facility] [address] UREA NITROGEN 22 mg/dL 7-25 GLUCOSE 91 mg/dL 65-100 SODIUM 138 mmol/L 135-145 POTASSIUM 4.8 mmol/L 3.5-5.0 CHLORIDE 105 mmol/L 100-110 CO2 25 meq/L 20-30 CREATININE, Serum 0.99 mg/dL 0.50-1.40 eGFR(CKD-EPI 2020) 77 mL/min >60 Aug 08, 2024 10:59 AM [facility] HEMOGLOBIN A1C PANEL Specimen Type: BLOOD [...] Aug 08, 2024 10:54 AM Reporting Lab: [address] [address] Performing Lab: [address] [address] HEMOGLOBIN A1C 5.2 4.0-5.6 Aug 08, 2024 10:59 AM [facility] LIVER FUNCTION Specimen Type: SERUM No comment entered. Ordering Provider: MONICA VERDUZCO Report Released Date/Time: Aug 08, 2024 10:54 AM Reporting Lab: [facility] [address] [facility] [address] Performing Lab: [address] [address] PROTEIN,TOTAL 6.7 g/dL 6.0-8.3 ALBUMIN 3.4 g/dL L 3.5-5.0 ALKALINE PHOSPHATASE 151 U/L H 40-150 AST 17 U/L 5-34 ALT 8 U/L BILIRUBIN, TOTAL 0.5 mg/dL 0.2-1.2 Aug 08, 2024 10:59 AM [facility] TSH Specimen Type: SERUM No comment entered. Ordering Provider: MONICA VERDUZCO Report Released Date/Time: Aug 08, 2024 10:54 AM Reporting Lab: [facility] [address] [facility] [address] Performing Lab: [facility] [address] TSH 1.93 u[IU]/mL 0.35-5.00 Aug 08, 2024 10:59 AM [facility] PSA Specimen Type: SERUM No comment entered. Ordering Provider: MONICA VERDUZCO Report Released Date/Time: Aug 08, 2024 10:54 AM Reporting Lab: [facility] [address] [facility] [facility] [address] Performing Lab: [facility] [address] [address] PSA 30.59 ng/mL H 0.00-4.00 Aug 08, 2024 10:59 AM [facility] CBC AND DIFF (AUTO) Specimen Type: BLOOD No comment entered. Ordering Provider: MONICA VERDUZCO Report Released Date/Time: Aug 08, 2024 10:54 AM Reporting Lab: [facility] [address] [address] Performing Lab: [facility] [address] [address] WBC 7.81 10*3/uL 4.50-11.00 RBC 4.88 10*6/uL [...] Ray corral May 31, 2024 10:00 AM [place]-TOBACCO NEVER USED [facility] Tobacco Use History This section includes a history of the smoking, or tobacco-related health factors, that were collected on or before the date of the Encounter. The data comes from the [place] facility where the Encounter took place. Date/Time Smoking Status/Tobacco Use Comment F acility Jun 23, 2023 09:00 AM VA-TOBACCO FORMER USER [facility] Jun 23, 2023 09:00 AM VA-TOBACCO QUIT 15 YRS OR MORE [facility] May 01, 2022 01:30 PM VA-TOBACCO FORMER USER [facility] May 01, 2022 01:30 PM VA-TOBACCO QUIT 15 YRS OR MORE [facility] Apr 15, 2021 03:00 PM VA-TOBACCO FORMER USER [facility] Apr 15, 2021 03:00 PM VA-TOBACCO QUIT 15 YRS OR MORE [facility] Oct 20, 2018 12:53 PM VA-TOBACCO FORMER USER [facility] Oct 20, 2018 12:53 PM VA-TOBACCO QUIT 15 YRS OR MORE [facility] Jul 03, 2017 10:33 AM QUIT TOBACCO USE > 7 YEARS AGO quit 25yrs ago [facility] February 13, 2016 08:46 AM LIFETIME NON-TOBACCO USER [facility] Advance Directives: All historical and current Section Date Range: From patient's date of to the date document was created. This section includes ALL of a patient's completed or amended [place] Advance and Rescinded Directives. The entries below indicate that a directive exists for the patient, but an actual copy is not included with this document. The data comes from all [facility]. Date Advance Directives Provider Source Apr 04, 2024 ADVANCE DIRECTIVE CHAPINCITO DEE [facility] Radiology Reports: +/- 30 days of [...] AM CHEST CT W/O CONT: JAKE DUGAN [id number] -[id number] M Exm Date: SEP 01, 2024@10:54 Req Phys: LUBA,NOLAN Pat Loc: CWM/SO/PACT 9 (Req'g Loc) Img Loc: NHM/CT Service: Unknown [place] [facility] [place] [address] (Case [id number] COMPLETE) CT THORAX W/O CONT (CT Detailed) CPT:68989 Reason for Study: LDCT Clinical History: lung [place] screen/surveillance as per protocol Report Status: Verified Date Reported: SEP 01, 2024 Date Verified: SEP 01, 2024 Arresting Gear Operator E-Sig:/ES/STARR MCDANIEL JR Report: Study: Noncontrast [...] Primary Interpreting Staff: STARR MCDANIEL JR, Radiologist (Arresting Gear Operator) /STARR HERNANDEZ JR [place] CNT [facility] Aug 16, 2024 02:[address] ABDOMEN AND PELVIS WITH CONTRAST: JAKE DUGAN [id number] -1945 M Ex Date: AUG 16, 2024@14:04 Req Phys: LUBA,NOLAN Pat Loc: CWM/SO/PACT 9 (Req'g Loc) Img Loc: NHM/CT Service: Unknown [place] [facility] [place] [address] (Case [id number] COMPLETE) CT ABDOMEN AND PELVIS WITH CONTRA(CT Detailed) CPT:84802 Contrast Media : Non-ionic Iodinated Reason for Study: prostate [place] Clinical History: Report Status: Verified Date Reported: AUG 16, 2024 Date Verified: AUG 16, 2024 Arresting Gear Operator E-Sig: Report: CT ABDOMEN AND PELVIS [...] tumor infiltration. READING PHYSICIAN: Kwabena Perez M.D. -[phone] 08/16/2024 20:18 [facility] Clusterizeradiology Program [phone] (For Medical Practitioner Use Only) Attention Patients / Veterans: If you have questions or concerns about these test results, please contact your ordering provider or primary care team. Primary Diagnostic Code: POSSIBLE MALIGNANCY Primary Interpreting Staff: RADIOLOGY,OUTSIDE SERVICE, Staff Physician / RADIOLOGY,OUTSIDE SERVICE [facility] Pathology Reports: +/- 30 days of [...] AM LR MICROBIOLOGY RE PORT: Reporting Lab: [facility] [CLIA# [id number]] [address] [place] [phone] Accession [UID]: [facility] [id number] [[id number]] Received: Aug 24, 2024@11:28 Collection sample: URINE CLEAN CATCH Collection date: Aug 24, 2024 11:28 Site/Specimen: URINE Provider: NOLAN VERDUZCO Comment on specimen: POSITIVE CULTURE RESULTS MAY NOT REPRESENT CLINICAL INFECTION. CONSIDER NEED FOR ANTIBIOTICS IN THE CONTEXT OF UTI SYMPTOMS. Test(s) ordered: URINE CULTURE(RAMONA).......... completed: Aug 29, 2024 08:33 * BACTERIOLOGY FINAL REPORT => Aug 29, 2024 08:32 TECH CODE: [id number] CULTURE RESULTS: 1. KLEBSIELLA OXYTOCA/RAOULTELLA ORNITHINOLYTICA - [...] Performing Laboratory: Klebsiella Oxytoca/raoultella Ornithinolytica Performed By: [facility] [CLIA# [id number]] [address] [place] [phone] Pseudomonas Aeruginosa Performed By: [facility] [CLIA# [id number]] [address] [place] [address] Bact Report Remark #1 Performed By: [facility] [CLIA# [id number]] [address] [place] [phone] Bact Report Remark #2 Performed By: [facility] [CLIA# [id number]] [address] [place] [phone] ENRIQUETA FLORES Encounter Notes: All associated encounter notes This section contains the clinical notes associated to the Encounter. Date/Time Encounter Note(s) Provider Source Oct 19, 2024 11:35 AM PAIN MEDICATION MG T NOTE: LOCAL TITLE: OPIOID/CONTROLLED SUBSTANCE NOTE STANDARD TITLE: PAIN MEDICATION MGT NOTE DATE OF NOTE: OCT 19, 2024@11:35 ENTRY DATE: OCT 19, 2024@11:35:44 AUTHOR: ROWENA MCDERMOTT EXP COSIGNER: URGENCY: STATUS: COMPLETED OPIOID/CONTROLLED SUBSTANCE NOTE [...] of controlled substances prescribed outside of the [place], and any additional information that may become available, as an important component of standard clinical care and in accordance with [facility] policy. 10/19/24 11:33 Rowena Mcdermott PDMP Appriss [place] Urine Drug Screen: A urine drug screen [...] Ordering Provider: Aug Next Opioid Prescriber Visit: /mariana/ ROWENA MCDERMOTT NP NURSE PRACTITIONER Signed: 10/19/2024 11:43 ROWENA MCDERMOTT [facility] Oct 19, 2024 11:34 AM ACCOUNTING OF DISC LOSURES NOTE: LOCAL TITLE: STATE PRESCRIPTION DRUG MONITORING PROGRAM STANDARD TITLE: ACCOUNTING [...] standard clinical care, and in accordance with [facility] policy. Patient information was shared with the PDMP Appriss [place]. No prescription(s) for controlled substances outside the [facility] were found in the last 90 days. /mariana/ ROWENA MCDERMOTT NP NURSE PRACTITIONER Signed: 10/19/2024 11:34 ROWENA MCDERMOTT [facility] Aug 25, 2024 04:12 PM ADDENDUM: LOCAL TITLE: Addendum STANDARD TITLE: ADDENDUM DATE OF NOTE: AUG 25, 2024@16:12:20 ENTRY DATE: AUG 25, 2024@16:12:20 AUTHOR: ROWENA MCDERMOTT EXP COSIGNER: URGENCY: STATUS: COMPLETED The patient would like to switch to PACT 1. Please change [place]. AMSA: Please contact the patient and establish an appointment within the next 90 to 120 days. Thank you /mariana/ ROWENA MCDERMOTT NP NURSE PRACTITIONER Signed: 08/25/2024 16:13 Receipt Acknowledged By: 08/30/2024 11:09 /mariana/ ERIC BARTON ADVANCE SILVER PLATER 08/31/2024 12:25 /mariana/ KYLE TAFOYA DOWEL MAKER 08/25/2024 16:19 /mariana/ ISABEL FREDERICK LPN LPN ======== --- Original Document --- 08/24/24 NURSE PRACTITIONER OUTPATIENT NOTE: PRIMARY CARE VISIT JAEK DUGAN, is a 79 yo DECLINED TO ANSWER MALE who presents at the [place] Clinic. TYPE OF VISIT: Face to face [...] been seen several times in follow-up by [facility] urology who has recommended treatment for the bladder outlet obstruction as well as prostate cancer which he has refused up to now. Recent labs were also reviewed. All medications were reconciled during this visit. HEALTHCARE PROVIDERS: PCP: KEESHA Urology: Dr. 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 10/21/2018 LUBA,NOLAN Diverticular disease R69. 10/21/2018 NOLAN VERDUZCO Osteoarthritis (SNOMED CT 405918275 05/13/2018 NICOLASJACKY SONG Doug Generalized anxiety disorder F41.1 04/11/2016 ELICIA HARRIS [...] detailed explanation. Of note, there was an REFORMATORY ATTENDANT (Jose) present throughout the visit to assist [...] of active outpatient prescriptions dispensed from this [place] (local) and dispensed from another [facility] or [...] 08/24/2024 14:28 08/30/2024 ADDENDUM STATUS: COMPLETED THIS DELIVERY PERSON SPOKE w/ AND IS BOOKED FOR 12/13/24 LETTER SENT /mariana/ ERIC BARTON ADVANCE SILVER PLATER Signed: 08/30/2024 11:08 ROWENA MCDERMOTT [facility] Aug 24, 2024 02:03 PM PRIMARY CARE [...] TO ANSWER MALE who presents at the [place] Clinic. TYPE OF VISIT: Face to face [...] been seen several times in follow-up by [facility] urology who has recommended treatment for the bladder outlet obstruction as well as prostate cancer which he has refused up to now. Recent labs were also reviewed. All medications were reconciled during this visit. HEALTHCARE PROVIDERS: PCP: [place] Urology: Dr. Cox, [facility] urology HISTORY: PERIOD OF SERVICE - [place] [employer] FROM Jul TO Sep COMBAT SERVICE INDICATED: [...] R69. 10/21/2018 NOLAN VERDUZCO Osteoarthritis (SNOMED CT [id number] 05/13/2018 NICOLAS-TONIAJACKY Generalized anxiety disorder F41.1 04/11/2016 ELICIA HARRIS [...] or unilateral weakness. EXAMINATION General: Well-appearing older [place] in no obvious distress. Mental Status: Alert [...] detailed explanation. Of note, there was an REFORMATORY ATTENDANT (Jose) present throughout the visit to assist with medical translation and her assistance was greatly appreciated. FOLLOW UP: RTC Below & sooner PRN UPCOMING APPOINTMENTS: 09/05/2024 11:30 CWM/SO/PACT 10/26/2024 09:00 CWM/SO/PACT 9 10/28/2024 10:00 CWM/SO/PACT [...] (local) and dispensed from another VA or [facility] facility (remote) as well as inpatient orders [...] to switch to PACT 1. Please change [place]. AMSA: Please contact the patient and establish an appointment within the next 90 to 120 days. Thank you /mariana/ ROWENA MCDERMOTT NP NURSE PRACTITIONER Signed: 08/25/2024 16:13 Receipt Acknowledged By: 08/30/2024 11:09 /mariana/ ERIC BARTON ADVANCE SILVER PLATER * AWAITING SIGNATURE * KYLE TAFOYA 08/25/2024 16:19 /mariana/ ISABEL FREDERICK LPN LPN 08/30/2024 ADDENDUM STATUS: COMPLETED THIS DELIVERY PERSON SPOKE w/ AND IS BOOKED FOR 12/13/24 LETTER SENT /viky BARTON ADVANCE SILVER PLATER Signed: 08/30/2024 11:08 ROWENA MCDERMOTT Aug 24, 2024 12:30 PM PREVENTIVE MEDICIN E NURSING NOTE: LOCAL TITLE: CLINICAL REMINDERS/NURSING STANDARD TITLE: PREVENTIVE MEDICINE NURSING NOTE DATE OF NOTE: AUG 24, 2024@12:30 ENTRY DATE: AUG 24, 2024@12:30:11 AUTHOR: ISABEL FREDERICK EXP COSIGNER: URGENCY: STATUS: COMPLETED COVID-19 Immunization: Defer due to a PRECAUTION Reason: def /es/ ISABEL FREDERICK LPN LPN Signed: 08/24/2024 12:30 ISABEL FREDERICK
--- OUTSIDE RECORDS SUMMARY | 2024-12-21 13:00 | XMS_ITS | Encounter Summary ---
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 Organization [place] Address [address] [place] [address] Care Team Providers Care C Application Developer Name Role Phone ROWENA ROY Primary [...] to Policy Segal [facility] ([facility]) MEDIC[facility] ADVANTAGE [place] INDIV IDUAL - [place] Sep 21, 2023 [id number] [phone] GENET DUGAN S [facility]IENT [facility] ([facility]) MEDICARE ADVANTAGE [facility] ([facility]) Sep 21, 2023 [id number] [phone] MARVIN DUGANI S PATIENT HUSKY MEDICAID HUSKY PLAN May 22, 2022 MEDICAI D [id number] GENET DUGAN S PATIENT MEDICARE ([facility]) MEDICARE (M) PART B May 22, 2022 PART B [id number] GENET DUGAN S PATIENT MEDICARE (WNR) MEDICARE (M) PART A Feb 19, 2009 PART A [id number] GENET DUGAN S PATIENT MEDICARE PART D (WNR) MEDICARE (M) PART D Jul 22, 2022 PART D [id number] GENET DUGAN PATIENT [facility] (WNR) MEDICARE ADVANTAGE [facility] (WNR) Sep 21, 2022 [id number] [phone] GENET DUGAN PATIENT [facility] MCR (WNR) MEDICARE ADVANTAGE [facility] (WNR) Sep 21, 2022 [id number] GENET DUGAN PATIENT Selected Encounter This section includes the information on record at [place] for the Encounter. Date/Time Encounter Type Encounter Description Reason Provider Source Feb 26, 2024 01:00 PM OFF/OP EST JANUARY X REQ PHY/QHP PRIMARY CARE/MEDICINE ICD-10-CM L02.212 Cutaneous abscess of back [any part, except buttock] [facility] Encounter Template Text not used by [place] Assessments - Encounter Diagnoses This section includes the primary and secondary diagnoses documented for the Encounter. Date/Time Primary/Secondary Diagnosis Diagnosis Name Provider Source Feb 26, 2024 02:15 PM PRIMARY Cutaneous abscess of back [any part, except buttock] MARI[facility] CORRALES [place] Plan of Treatment: Future Appointments (+ 6 [...] 10, 2024 09:00 AM AMBULATORY - NONE [facility] [place] [facility] Mar 18, 2024 09:30 AM AMBULATORY - MEDICINE [facility] [place] [facility] Mar 21, 2024 09:30 AM AMBULATORY - MEDICINE [facility] [place] [facility] Apr 07, 2024 08:30 AM AMBULATORY - MEDICINE [facility] [place] [facility] Apr 15, 2024 02:30 PM AMBULATORY - MEDICINE [facility] [place] [facility] Apr 27, 2024 10:00 AM AMBULATORY - MEDICINE [facility] [place] [facility] May 13, 2024 11:00 AM AMBULATORY - MEDICINE [facility] [place] [facility] May 31, 2024 10:00 AM AMBULATORY - MEDICINE [facility] [place] [facility] Jun 03, 2024 12:45 PM AMBULATORY - MEDICINE [facility] [place] [facility] Jun 21, 2024 09:00 AM AMBULATORY - MEDICINE [facility] [place] [facility] Aug 09, 2024 09:00 AM AMBULATORY - MEDICINE [facility] [place] [facility] Aug 16, 2024 12:00 PM AMBULATORY - NONE [facility] [place] [facility] Aug 22, 2024 11:20 AM AMBULATORY - MEDICINE [facility] [place] [facility] [...] PANEL URINE (RANDOM) [facility] [place] [facility] Mar 19, 2024 12:00 AM Laboratory - Chemistry Order VITAMIN B12 BLOOD (SST-SERUM) [facility] [place] [facility] Mar 19, 2024 12:00 AM Laboratory - Chemistry Order FOLATE BLOOD (SST-SERUM) SP [facility] [place] [facility] Mar 19, 2024 12:00 AM Laboratory - Chemistry Order LIPID PANEL FASTING BLOOD (SST-SERUM) [facility] [place] [facility] Mar 19, 2024 12:00 AM Laboratory - Chemistry Order VITAMIN D 25-OH (Therapy monitor) BLOOD (SST-SERUM) [facility] [place] [facility] Mar 19, 2024 12:00 AM Laboratory - Chemistry Order LIVER FUNCTION BLOOD (SST-SERUM) [facility] [place] [facility] Mar 19, 2024 12:00 AM Laboratory - Chemistry Order BASIC METABOLIC PANEL (fasting) BLOOD (SST-SERUM) [facility] Mar 19, 2024 12:00 AM Laboratory - Chemistry Order CBC AND DIFF (AUTO) BLOOD (LAV-BLOOD) [facility] Mar 19, 2024 12:00 AM Laboratory - Chemistry Order HEMOGLOBIN A1C PANEL BLOOD (LAV-BLOOD) [facility] Mar 19, 2024 12:00 AM Laboratory - Chemistry Order TSH BLOOD (SST-SERUM) [facility] Mar 19, 2024 12:00 AM Laboratory - Chemistry Order PSA BLOOD (SST-SERUM) [facility] Vital Signs: All taken on the encounter date This section contains inpatient and outpatient Vital Signs collected on the date of the Encounter. Date/Time Temperature Pulse Blood Pressure Respiratory Rate SP02 Pain Height Weight Body Mass Index Source Feb 26, 2024 01:38 PM 98.2 70 148/[address] [facility] IE Social History: Smoking Status (Most current) and Tobacco Use (All prior to encounter date) This section includes the most current, and the historical, smoking and tobacco- related health factors from the [place] facility where the Encounter took place. Current Smoking Status This section includes the most current smoking, or tobacco-related health factor, from the [place] facility where the Encounter took place. Date/Time Current Smoking Status Comment Facil ity Jun 23, 2023 09:00 AM [place]-TOBACCO QUIT 15 YRS OR MORE [place] Tobacco Use History This section includes a history of the smoking, or tobacco-related health factors, that were collected on or before the date of the Encounter. The data comes from the [place] facility where the Encounter took place. Date/Time Smoking Status/Tobacco Use Comment F acility Jun 23, 2023 09:00 AM VA-TOBACCO QUIT 15 YRS OR MORE [place] May 01, 2022 01:30 PM VA-TOBACCO FORMER USER [place] May 01, 2022 01:30 PM VA-TOBACCO QUIT 15 YRS OR MORE [place] Apr 15, 2021 03:00 PM VA-TOBACCO FORMER USER [place] Apr 15, 2021 03:00 PM VA-TOBACCO QUIT 15 YRS OR MORE [place] Oct 20, 2018 12:53 PM VA-TOBACCO FORMER USER [place] Oct 20, 2018 12:53 PM VA-TOBACCO QUIT 15 YRS OR MORE [place] Jul 03, 2017 10:33 AM QUIT TOBACCO USE > 7 YEARS AGO quit 25yrs ago [place] February 13, 2016 08:46 AM LIFETIME NON-TOBACCO USER [place] Advance Directives: All historical and current Section [...] Source Apr 04, 2024 [facility] Encounter Notes: All associated encounter notes [...] to Primary Care clinic for Walk-In visit. [place]'s PCP is NOLAN VERDUZCO. Today Vet walks [...] and attended to by Michel Christianson NP. also requesting a dermatology consult for multiple skin bumps: one on his left arm, two on his lower back and one on his chest. Response: /es/ LATISHA CORRALES RN REGISTERED NURSE Signed: 02/26/2024 14:15 LATISHA CORRALES
--- OUTSIDE RECORDS SUMMARY | 2024-12-21 13:00 | XMS_ITS | Encounter Summary ---
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 Organization [place] Address [address] [place] [address] Care Team Providers Care Skip Miner Blasting Name Role Phone ROWENA ROY Primary Care [...] Segal's Name Patient's Relationship to Policy Segal [facility] ([facility]) MEDICARE ADVANTAGE [place] IN[place] - [place] Sep 21, 2023 [id number] [phone] GENET DUGAN S [facility] ([facility]) MEDICARE ADVANTAGE [facility] ([facility]) Sep 21, 2023 [id number] [phone] MARVIN DUGANI S PATIENT HUSKY MEDICAID HUSKY PLAN May 22, 2022 MEDICAI D [id number] GENET DUGAN S PATIENT MEDICARE ([facility]) MEDICARE (M) PART B May 22, 2022 PART B [id number] GENET DUGAN S PATIENT MEDICARE (WNR) MEDICARE (M) PART A Feb 19, 2009 PART A [id number] GENET DUGAN S PATIENT MEDICARE PART D (WNR) MEDICARE (M) PART D Jul 22, 2022 PART D [id number] GENET DUGAN S PATIENT [facility] (WNR) MEDICARE ADVANTAGE [facility] (WNR) Sep 21, 2022 [id number] GENET DUGAN S PATIENT [facility] MCR (WNR) MEDICARE [facility] (WNR) Sep 21, 2022 [id number] GENET DUGAN S PATIENT Selected Encounter [...] PRIMARY Carcinoma in situ of prostate [place] Plan of Treatment: Future Appointments (+ 6 [...] - MEDICINE [place] [facility] [place] [facility] Nov 09, 2024 09:00 AM AMBULATORY - MEDICINE [place] [facility] [place] [facility] Nov 24, 2024 03:00 PM AMBULATORY - MEDICINE [place] [facility] [place] [facility] Nov 25, 2024 08:00 AM AMBULATORY - MEDICINE [place] [facility] [place] [facility] Dec 13, 2024 01:30 PM [facility] Jan 02, 2025 10:00 AM AMBULATORY - MEDICINE [place] [facility] [facility] Lab Results: +/- 30 days [...] Range Comment Aug 24, 2024 11:28 AM [place] CBC AND DIFF (AUTO) Specimen Type: BLOOD No comment entered. Ordering Provider: ROWENA ROY Report Released Date/Time: Aug 24, 2024 11:07 AM Reporting Lab: [facility] [address] [facility] [address] Performing Lab: [facility] [address] [facility] [address] WBC 8.84 10*3/uL 4.50-11.00 RBC 4.72 10*6/uL [...] 10*3/uL 0.00-0.00 Aug 24, 2024 11:28 AM [facility] MICROSCOPIC AUTOMATED, URINE Specimen Type: URINE Comment: If Glucose = >500 and Ketones are positive, please alert the Physician. Ordering Provider: MONICA VERDUZCO Report Released Date/Time: Aug 09, 2024 09:43 AM Reporting Lab: [address] [address] Performing Lab: [facility] [address] [facility] [address] UA WBC 0-5 /[HPF] 0-5 UA BACTERIA 1+ /[HPF] NoneObs UA TRIPLE PHOSPHATE CRYSTALS MODERATE /[HPF] Not Established UA RBC 6-10 /[HPF] H 0-3 Aug 24, 2024 11:28 AM [facility] URINALYSIS Specimen Type: URINE Comment: If Glucose = >500 and Ketones are positive, please alert the Physician. Ordering Provider: MONICA VERDUZCO Report Released Date/Time: Aug 09, 2024 09:43 AM Reporting Lab: [address] [address] Performing Lab: [address] [address] UA COLOR Light-Brown Yellow UA APPEARANCE Turbid Clear UA GLUCOSE Normal mg/dL Negative UA KETONES NEGATIVE mg/dL Negative UA BLOOD LARGE mg/dL Negative UA PROTEIN 100 mg/dL Negative UA NITRITE NEGATIVE mg/dL Negative UA BILIRUBIN NEGATIVE mg/dL Negative UA SPECIFIC GRAVITY 1.007 L 1.016-1.022 UA pH 8.5 5.0-9.0 UA UROBILINOGEN Normal mg/dL <2.0 UA LEUKOCYTE LARGE Negative Aug 08, 2024 10:59 AM [facility] VITAMIN D 25-OH (Therapy monitor) Specimen [...] For additional information, please refer to http://educatio n.[employer]/faq/FAQ 199 (This link is being provided for informational/ educational purposes only.) This test was developed and its analytical performance characteristics have been determined by [facility] [place]. It has not been cleared or approved by the U.S. Food and Drug Administration. This assay has been validated pursuant to the CLIA regulations and is used for clinical purposes. This test was developed and its analytical performance characteristics have been determined by [facility] [place] [place]. It has not been cleared or approved by the U.S. Food and Drug Administration. This assay has been validated pursuant to the CLIA regulations and is used for clinical purposes. Test Performed by [facility], [facility], [address] [place] [address] Dov Bahena M.D., Ph.D., Director of Laboratories , CLIA [id number] TEST PERFORMED AT: , Ordering Provider: MONICA VERDUZCO Report Released Date/Time: Aug 08, 2024 10:54 AM Reporting Lab: [address] [address] Performing Lab: [facility] [address] [address] VITAMIN D, 25-OH, TOTAL 51 ng/mL 30-100 VITAMIN D, 25-OH, D3 51 ng/mL VITAMIN D, 25-OH, D2 <4 ng/mL Aug 08, 2024 10:59 AM [facility] FOLATE (WROX) Specimen Type: SERUM No comment entered. Ordering Provider: MONICA VERDUZCO Report Released Date/Time: Aug 08, 2024 10:54 AM Reporting Lab: [facility] [address] [facility] [address] Performing Lab: [facility] [place] [facility] [address] [facility] [address] FOLATE (WROX) 4.07 ng/mL L >5.2 Aug 08, 2024 10:59 AM [facility] [place] [facility] MICROALBUMIN CREATININE RATIO PANEL Specimen Type: URINE No comment entered. Ordering Provider: MONICA VERDUZCO Report Released Date/Time: Aug 08, 2024 10:54 AM Reporting Lab: [place] [facility] [place] [facility] [address] [facility] [address] Performing Lab: [facility] [place] [facility] [address] [facility] [address] MICROALBUMIN/ CREATININE RATIO 354.2 mg/g H 0-29.9 MICROALBUMIN, QUANTITATIVE 103.3 mg/dL RR UNAVAIL CREATININE URINE 291.68 mg/dL Aug 08, 2024 10:59 AM [facility] VITAMIN B12 Specimen Type: SERUM No comment entered. Ordering Provider: MONICA VERDUZCO Report Released Date/Time: Aug 08, 2024 10:54 AM Reporting Lab: [facility] [place] [facility] [address] [facility] [address] Performing Lab: [facility] [address] [facility] [address] VITAMIN B12 1849 pg/mL H 200-900 Aug 08, 2024 10:59 AM [facility] LIPID PANEL FASTING Specimen Type: SERUM No comment entered. Ordering Provider: MONICA VERDUZCO Report Released Date/Time: Aug 08, 2024 10:54 AM Reporting Lab: [facility] [place] [facility] [address] [facility] [address] Performing Lab: [facility] [address] [facility] [address] CHOLESTEROL 178 mg/dL TRIGLYCERIDE 97 mg/dL 0-150 LDL calculated 97 mg/dL 0-129 CHOL/HDL 2.9 HDL CHOLESTEROL 62 mg/dL H 40-60 Aug 08, 2024 10:59 AM [facility] BASIC METABOLIC PANEL (fasting) Specimen Type: SERUM No comment entered. Ordering Provider: MONICA VERDUZCO Report Released Date/Time: Aug 08, 2024 10:54 AM Reporting Lab: [address] [address] Performing Lab: [address] [address] UREA NITROGEN 22 mg/dL 7-25 GLUCOSE 91 mg/dL 65-100 SODIUM 138 mmol/L 135-145 POTASSIUM 4.8 mmol/L 3.5-5.0 CHLORIDE 105 mmol/L 100-110 CO2 25 meq/L 20-30 CREATININE, Serum 0.99 mg/dL 0.50-1.40 eGFR(CKD-EPI 2020) 77 mL/min >60 Aug 08, 2024 10:59 AM [facility] LIVER FUNCTION Specimen Type: SERUM No comment entered. Ordering Provider: MONICA VERDUZCO Report Released Date/Time: Aug 08, 2024 10:54 AM Reporting Lab: [address] [address] Performing Lab: [address] [address] PROTEIN,TOTAL 6.7 g/dL 6.0-8.3 ALBUMIN 3.4 g/dL L 3.5-5.0 ALKALINE PHOSPHATASE 151 U/L H 40-150 AST 17 U/L 5-34 ALT 8 U/L BILIRUBIN, TOTAL 0.5 mg/dL 0.2-1.2 Aug 08, 2024 10:59 AM [facility] HEMOGLOBIN A1C PANEL Specimen Type: BLOOD [...] Aug 08, 2024 10:54 AM Reporting Lab: [address] [address] Performing Lab: [place] [facility] [place] [facility] [address] [facility] [address] HEMOGLOBIN A1C 5.2 4.0-5.6 Aug 08, 2024 10:59 AM [facility] [place] [facility] TSH Specimen Type: SERUM No comment entered. Ordering Provider: MONICA VERDUZCO Report Released Date/Time: Aug 08, 2024 10:54 AM Reporting Lab: [place] [facility] [place] [facility] [address] [facility] [address] Performing Lab: [facility] [place] [facility] [address] [facility] [address] TSH 1.93 u[IU]/mL 0.35-5.00 Aug 08, 2024 10:59 AM [facility] PSA Specimen Type: SERUM No comment entered. Ordering Provider: MONICA VERDUZCO Report Released Date/Time: Aug 08, 2024 10:54 AM Reporting Lab: [place] [facility] [place] [facility] [address] [facility] [address] Performing Lab: [facility] [address] [facility] [address] PSA 30.59 ng/mL H 0.00-4.00 Aug 08, 2024 10:59 AM [facility] CBC AND DIFF (AUTO) Specimen Type: BLOOD No comment entered. Ordering Provider: MONICA VERDUZCO Report Released Date/Time: Aug 08, 2024 10:54 AM Reporting Lab: [facility] [place] [facility] [address] [facility] [address] Performing Lab: [place] [facility] [place] [address] [address] WBC 7.81 10*3/uL 4.50-11.00 RBC 4.88 10*6/uL [...] Ray corral May 31, 2024 10:00 AM [place]-TOBACCO NEVER USED [place] Tobacco Use History This section includes a history of the smoking, or tobacco-related health factors, that were collected on or before the date of the Encounter. The data comes from the [place] facility where the Encounter took place. Date/Time Smoking Status/Tobacco Use Comment F acility Jun 23, 2023 09:00 AM VA-TOBACCO FORMER USER [place] Jun 23, 2023 09:00 AM VA-TOBACCO QUIT 15 YRS OR MORE [place] May 01, 2022 01:30 PM VA-TOBACCO FORMER USER [place] May 01, 2022 01:30 PM VA-TOBACCO QUIT 15 YRS OR MORE [place] Apr 15, 2021 03:00 PM VA-TOBACCO FORMER USER [place] Apr 15, 2021 03:00 PM VA-TOBACCO QUIT 15 YRS OR MORE [place] Oct 20, 2018 12:53 PM VA-TOBACCO FORMER USER [place] Oct 20, 2018 12:53 PM VA-TOBACCO QUIT 15 YRS OR MORE [place] Jul 03, 2017 10:33 AM QUIT TOBACCO USE > 7 YEARS AGO quit 25yrs ago [place] February 13, 2016 08:46 AM LIFETIME NON-TOBACCO USER [place] Advance Directives: All historical and current Section [...] AM CHEST CT W/O CONT: JAKE DUGAN [id number] -1945 M Exm Date: SEP 01, 2024@10:54 Req Phys: LUBA,NOLAN Pat Loc: CWM/SO/PACT 9 (Req'g Loc) Img Loc: [facility]/CT Service: [place] [address] (Case [id number] COMPLETE) CT THORAX W/O CONT (CT Detailed) CPT:71821 Reason for Study: LDCT Clinical History: lung CA screen/surveillance as per protocol Report Status: Verified Date Reported: SEP 01, 2024 Date Verified: SEP 01, 2024 Director Sports E-Sig:/ES/STARR MCDANIEL JR Report: Study: Noncontrast CT [...] Primary Interpreting Staff: STARR MCDANIEL JR, Radiologist (Director Sports) /STARR HERNANDEZ JR [facility] Aug 16, 2024 02:[address] ABDOMEN AND PELVIS WITH CONTRAST: JAKE DUGAN [id number] -1945 M Ex Date: AUG 16, 2024@14:04 Req Phys: NOLAN VERDUZCO Pat Loc: CWM/SO/PACT 9 (Req'g Loc) Img Loc: [facility]/CT Service: [place] [address] (Case [id number] COMPLETE) CT ABDOMEN AND PELVIS WITH CONTRA(CT Detailed) CPT:96652 Contrast Media : Non-ionic Iodinated Reason for Study: prostate CA Clinical History: Report Status: Verified Date Reported: AUG 16, 2024 Date Verified: AUG 16, 2024 Director Sports E-Sig: Report: CT ABDOMEN AND PELVIS WITH [...] tumor infiltration. READING PHYSICIAN: Kwabena Perez M.D. -[id number] 08/16/2024 20:18 [facility] National Teleradiology Program [phone] (For Medical Practitioner Use Only) Attention Patients / Veterans: If you have questions or concerns about these test results, please contact your ordering provider or primary care team. Primary Diagnostic Code: POSSIBLE MALIGNANCY Primary Interpreting Staff: RADIOLOGY,OUTSIDE SERVICE, Staff Physician / RADIOLOGY,OUTSIDE SERVICE [facility] Pathology Reports: +/- 30 days of [...] AM LR MICROBIOLOGY RE [place]: Reporting Lab: [facility] [CLIA# [id number]] [address] [place] [address] Accession [UID]: [id number] [[id number]] Received: Aug 24, 2024@11:28 Collection sample: URINE CLEAN CATCH Collection date: Aug 24, 2024 11:28 Site/Specimen: URINE Provider: NOLAN VERDUZCO Comment on specimen: POSITIVE CULTURE RESULTS MAY NOT REPRESENT CLINICAL INFECTION. CONSIDER NEED FOR ANTIBIOTICS IN THE CONTEXT OF UTI SYMPTOMS. Test(s) ordered: URINE CULTURE(MWROX).......... completed: Aug 29, 2024 08:33 * BACTERIOLOGY FINAL REPORT => Aug 29, 2024 08:32 TECH CODE: [id number] CULTURE RESULTS: 1. KLEBSIELLA OXYTOCA/RAOULTELLA ORNITHINOLYTICA - [...] Laboratory: Klebsiella Oxytoca/raoultella Ornithinolytica Performed By: [facility] [CLIA# [id number]] [address] [place] [address] Pseudomonas Aeruginosa Performed By: [facility] [CLIA# [id number]] [address] [place] [address] Bact Report Remark #1 Performed By: [facility] [CLIA# [id number]] [address] [place] [address] Bact Report Remark #2 Performed By: [facility] [CLIA# [id number]] [address] [place] [address] ENRIQUETA FLORES [place] Encounter Notes: All associated encounter notes This section contains the clinical notes associated to the Encounter. Date/Time Encounter Note(s) Provider Source Sep 06, 2024 11:13 AM LETTERS: LOCAL TITLE: PATIENT LETTER (T) STANDARD TITLE: LETTERS DATE OF NOTE: SEP 06, 2024@11:13 ENTRY DATE: SEP 06, 2024@11:13:17 AUTHOR: NOLAN VERDUZCO EXP COSIGNER: URGENCY: STATUS: COMPLETED DEPARTMENT OF [facility] Toll Free Number Primary Care Telephone Assistance can be reached at extension [phone] [facility] scheduling can be reached at extension [phone] [facility] scheduling can be reached at ext [phone] JAKE DUGAN [address] [place] [address], [phone] Dear [place], The following are recommendations from your TeleDerm [...] bothersome and you will be referred to [facility]. Sincerely, Your Primary Care Team [facility] [address] [address] [place] [address] [phone] [facility] [address] [place] [address] [place] [address] [facility] [address] [facility] [place] [address] [place] [address] [phone] NOLAN VERDUZCO [place] Sep 06, 2024 11:03 AM ADMINISTRATIVE NOT E: LOCAL TITLE: ADMINISTRATIVE NOTE STANDARD TITLE: ADMINISTRATIVE NOTE DATE OF NOTE: SEP 06, 2024@11:03 ENTRY DATE: SEP 06, 2024@11:03:40 AUTHOR: NOLAN VERDUZCO EXP COSIGNER: URGENCY: STATUS: COMPLETED SUBJECT: Abnormal imaging studies ADMINISTRATIVE NOTE Has ADDENDA Please FAX TODAY the following information to Dr Alexis Durant @ [facility] [address] [facility] Psa [0.00-4.00] 06/24/2023 7:39 2.63 Serum Psa [0.00-4.00] 10/06/2023 12:48 21.53 Serum Psa [0.00-4.00] 11/30/2023 10:39 35.69 Serum Psa [0.00-4.00] 08/08/2024 10:59 30.59 Serum Date Verified: SEP 01, 2024 Director Sports E-Sig:/ES/STARR MCDANIEL JR Report: Study: Noncontrast CT [...] POSSIBLE MALIGNANCY Date Verified: AUG 16, 2024 Director Sports E-Sig: Report: CT ABDOMEN AND PELVIS WITH [...] tumor infiltration. READING PHYSICIAN: Kwabena Perez M.D. -[id number] /mariana/ NOLAN VERDUZCO MD PHYSICIAN Signed: 09/06/2024 11:09 Receipt Acknowledged By: 09/06/2024 11:18 /mariana/ DANIELE MCINTYRE 09/06/2024 ADDENDUM STATUS: COMPLETED Investment Sales Assistant faxed copy of encounter to Dr Durant @ [facility]. /mariana/ DANIELE MCINTYRE Signed: 09/06/2024 11:18 NOLAN VERDUZCO
--- OUTSIDE RECORDS SUMMARY | 2024-12-21 13:00 | XMS_ITS | Encounter Summary ---
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 Address [address] [place] [id number] Care Team Providers Care Helpdesk Manager Name Role Phone ROWENA ROY Primary [...] Name Patient's Relationship to Policy Segal AETNA [facility] ([place]NR) MEDICARE ADVANTAGE [place] INDIV IDUAL - [place] Sep 21, 2023 [id number] [phone] GENET DUGAN S PATIENT [facility]ETNA [facility] ([place]NR) MEDICARE ADVANTAGE [facility] ([facility] Sep 21, 2023 [id number] [phone] MARVIN DUGANI S PATIENT HUSKY MEDICAID HUSKY PLAN May 22, 2022 MEDICAI D [id number] GENET DUGAN S PATIENT MEDICARE (WN) MEDICARE () PART B May 22, 2022 PART B [id number] MARVIN DUGANI S PATIENT MEDICARE (WNR) MEDICARE () PART A Feb 19, 2009 PART A [id number] GENET DUGAN S PATIENT MEDICARE PART D (R) MEDICARE () PART D Jul 22, 2022 PART D [id number] [phone] GENET DUGAN S PATIENT [facility] (WNR) MEDICARE ADVANTAGE [facility] (WNR) Sep 21, 2022 [id number] GENET DUGAN S PATIENT [facility] (WNR) MEDICARE ADVANTAGE [facility] (WNR) Sep 21, 2022 [id number] [phone] GENET DUGAN PATIENT Selected Encounter This section includes the information on record at [place] for the Encounter. Date/Time Encounter Type Encounter Description Reason Provider Source Mar 14, 2024 12:29 PM Outpatient Encounter DERMATOLOGY ICD-10-CM L82.1 Other seborrheic keratosis ADRIANNE MELISSA [facility] Encounter Template Text not used by [place] Assessments - Encounter Diagnoses This section includes [...] activities for the patient from all [place] treatment[facility]. This section includes future appointments and future [...] 18, 2024 09:30 AM AMBULATORY - [place]ICINE [place] [facility] Mar 21, 2024 09:30 AM AMBULATORY - MEDICINE [place] [facility] [place] [facility] Apr 07, 2024 08:30 AM AMBULATORY - MEDICINE [place] [facility] [place] [facility] Apr 15, 2024 02:30 PM AMBULATORY - MEDICINE [place] [facility] [place] [facility] Apr 27, 2024 10:00 AM AMBULATORY - MEDICINE [place] [facility] [place] [facility] May 13, 2024 11:00 AM AMBULATORY - MEDICINE [place] [facility] [place] [facility] May 31, 2024 10:00 AM AMBULATORY - MEDICINE [place] [facility] [place] [facility] Jun 03, 2024 12:45 PM AMBULATORY - MEDICINE [place] [facility] [place] [facility] Jun 21, 2024 09:00 AM AMBULATORY - MEDICINE [place] [facility] [place] [facility] Aug 09, 2024 09:00 AM AMBULATORY - MEDICINE [place] [facility] [place] [facility] Aug 16, 2024 12:00 PM AMBULATORY - NONE [place] [facility] [place] [facility] Aug 22, 2024 11:20 AM AMBULATORY - MEDICINE [place] [facility] [place] [facility] Aug 24, 2024 11:00 AM AMBULATORY - MEDICINE [facility] Sep 01, 2024 11:00 AM AMBULATORY - NONE [place] [facility] [place] [facility] Sep 07, 2024 03:00 PM AMBULATORY [place]ICINE [place] [facility] Active, Pending, and Scheduled [...] Order MICROALBUMIN CREATININE RATIO PANEL URINE (RANDOM) [facility] [place] [facility] Mar 19, 2024 12:00 AM Laboratory - Chemistry Order VITAMIN B12 BLOOD (SST-SERUM) [place] [facility] [place] [facility] Mar 19, 2024 12:00 AM Laboratory - Chemistry Order FOLATE BLOOD (SST-SERUM) [facility] [place] [facility] Mar 19, 2024 12:00 AM Laboratory - Chemistry Order VITAMIN D 25-OH (Therapy monitor) BLOOD (SST-SERUM) [facility] [place] [facility] Mar 19, 2024 12:00 AM Laboratory - Chemistry Order BASIC METABOLIC PANEL (fasting) BLOOD (SST-SERUM) [facility] [place] [facility] Mar 19, 2024 12:00 AM Laboratory - Chemistry Order LIPID PANEL FASTING BLOOD (SST-SERUM) [facility] Mar 19, 2024 12:00 AM Laboratory - Chemistry Order LIVER FUNCTION BLOOD (SST-SERUM) [facility] Mar 19, 2024 12:00 AM Laboratory - Chemistry Order HEMOGLOBIN A1C PANEL BLOOD (LAV-BLOOD) [facility] Mar 19, 2024 12:00 AM Laboratory - Chemistry Order CBC AND DIFF (AUTO) BLOOD (LAV-BLOOD) [facility] Mar 19, 2024 12:00 AM Laboratory - Chemistry Order PSA BLOOD (SST-SERUM) [facility] Mar 19, 2024 12:00 AM Laboratory - Chemistry Order TSH BLOOD (SST-SERUM) [facility] Advance Directives: All historical and current [...]
--- OUTSIDE RECORDS SUMMARY | 2024-12-21 13:00 | XMS_ITS | Encounter Summary ---
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 Address [address] [place] [address] Care Team Providers Care Chemical Milling Processor Name Role Phone ROWENA ROY Primary [facility] Insurance Providers: All historical and [...] INDIV IDUAL - [place] Sep 21, 2023 [id number] [phone] GENET DUGAN S PATIENT [facility] MEDICARE [facility] ([facility]) Sep 21, 2023 [id number] [phone] GENET DUGAN S PATIENT HUSKY MEDICAID HUSKY PLAN May 22, 2022 MEDICAI D [id number] GENET DUGAN S PATIENT MEDICARE ([facility]) MEDICARE () PART B May 22, 2022 PART B [id number] GENET DUGAN S PATIENT MEDICARE (WNR) MEDICARE () PART A Feb 19, 2009 PART A [id number] GENET DUGAN S PATIENT MEDICARE PART D (WNR) MEDICARE (M) PART D Jul 22, 2022 PART D [id number] [phone] GENET DUGAN S PATIENT [facility] (WNR) MEDICARE ADVANTAGE [facility] (WNR) Sep 21, 2022 [id number] GENET DUGAN S PATIENT [facility] (WNR) MEDICARE ADVANTAGE [facility] (WNR) Sep 21, 2022 [id number] [phone] GENET DUGAN PATIENT Selected Encounter This section includes the information on record at [place] for the Encounter. Date/Time Encounter Type Encounter Description Reason Provider Source Feb 26, 2024 01:15 PM OFFICE O/P EST MOD 30 MIN PRIMARY CARE/MEDICINE ICD-10-CM L02.818 Cutaneous abscess of other sites RENATA MCLAIN Encounter Template Text not used by [place] [...] 10, 2024 09:00 AM AMBULATORY - NONE [place] [facility] Mar 18, 2024 09:30 AM AMBULATORY - MEDICINE [place] [facility] Mar 21, 2024 09:30 AM AMBULATORY - MEDICINE [place] [facility] [place] [facility] Apr 07, 2024 08:30 AM AMBULATORY - MEDICINE [place] [facility] Apr 15, 2024 02:30 PM AMBULATORY - MEDICINE [place] [facility] Apr 27, 2024 10:00 AM AMBULATORY - MEDICINE [place] [facility] [place] [place] [facility] May 13, 2024 11:00 AM AMBULATORY - MEDICINE [place] [facility] [place] [place] [facility] May 31, 2024 10:00 AM AMBULATORY - MEDICINE [place] [facility] [place] [facility] Jun 03, 2024 12:45 PM AMBULATORY - MEDICINE [place] [facility] [place] [place] [facility] Jun 21, 2024 09:00 AM AMBULATORY - MEDICINE [place] [facility] [place] [place] [facility] Aug 09, 2024 09:00 AM AMBULATORY - MEDICINE [place] [facility] [place] [place] [facility] Aug 16, 2024 12:00 PM AMBULATORY - NONE [place] [facility] [place] [facility] Aug 22, 2024 11:20 AM AMBULATORY - MEDICINE [place] [facility] [place] [place] [facility] Aug 24, 2024 11:00 AM AMBULATORY [...] PANEL URINE (RANDOM) [facility] [place] [facility] Mar 19, 2024 12:00 AM Laboratory - Chemistry Order FOLATE BLOOD (SST-SERUM) [facility] [place] [facility] Mar 19, 2024 12:00 AM Laboratory - Chemistry Order VITAMIN B12 BLOOD (SST-SERUM) [facility] [place] [facility] Mar 19, 2024 12:00 AM Laboratory - Chemistry Order VITAMIN D 25-OH (Therapy monitor) BLOOD (SST-SERUM) [facility] [place] [facility] Mar 19, 2024 12:00 AM Laboratory - Chemistry Order LIPID PANEL FASTING BLOOD (SST-SERUM) [facility] [place] [facility] Mar 19, 2024 12:00 AM Laboratory - Chemistry Order BASIC METABOLIC PANEL (fasting) BLOOD (SST-SERUM) [facility] [place] [facility] Mar 19, 2024 12:00 AM Laboratory - Chemistry Order LIVER FUNCTION BLOOD (SST-SERUM) [facility] Mar 19, 2024 12:00 AM Laboratory - Chemistry Order CBC AND DIFF (AUTO) BLOOD (LAV-BLOOD) [facility] Mar 19, 2024 12:00 AM Laboratory - Chemistry Order HEMOGLOBIN A1C PANEL BLOOD (LAV-BLOOD) [facility] Mar 19, 2024 12:00 AM Laboratory - Chemistry Order TSH BLOOD (SST-SERUM) [facility] Mar 19, 2024 12:00 AM Laboratory - Chemistry Order PSA BLOOD (SST-SERUM) [facility] Vital Signs: All taken on the encounter [...] Facil ity Jun 23, 2023 09:00 AM [place]-TOBACCO FORMER USER [facility] Tobacco Use History This section includes a history of the smoking, or tobacco-related health factors, that were collected on or before the date of the Encounter. The data comes from the [place] facility where the Encounter took place. Date/Time Smoking Status/Tobacco Use Comment F acility Jun 23, 2023 09:00 AM VA-TOBACCO QUIT 15 YRS OR MORE [facility] May 01, 2022 01:30 PM VA-TOBACCO FORMER USER [facility] May 01, 2022 01:30 PM VA-TOBACCO QUIT 15 YRS OR MORE [facility] Apr 15, 2021 03:00 PM VA-TOBACCO FORMER USER [facility] Apr 15, 2021 03:00 PM VA-TOBACCO QUIT 15 YRS OR MORE [facility] Oct 20, 2018 12:53 PM VA-TOBACCO FORMER USER [facility] Oct 20, 2018 12:53 PM VA-TOBACCO QUIT 15 YRS OR MORE [facility] Jul 03, 2017 10:33 AM QUIT TOBACCO USE > 7 YEARS AGO quit 25yrs ago [facility] February 13, 2016 08:46 AM LIFETIME NON-TOBACCO USER [facility] Advance Directives: All historical and current Section [...] a 78 y/o DECLINED TO ANSWER MALE Chrisney who presents to [facility] sick call with c/o Abscess right upper back x 1 week. Went to urgent care on Thursday and they did manual expression of lateral end of abscess with minimal removal of contents. Started oral ATB. Site is painful and quite large. Has multiple skin lesions he would like Dermatology to see. [place] PCP: ======= NOLAN VERDUZCO VITAL SIGNS: Blood Pressure: 148/73 (02/26/2024 13:38) Pain: 0 (01/22/2024 15:44) Patient Height: 70 in [177.8 cm] (01/22/2024 15:44) Patient Weight: 184 lb [83.46 kg] (01/22/2024 15:44) Pulse: 70 (02/26/2024 13:38) Respiration: 14 (02/26/2024 13:38) Temperature: 98.2 F [36.8 C] (02/26/2024 13:38) REVIEW OF SYSTEMS: see HPI PHYSICAL EXAMINATION: General: Well-appearing Chrisney in no obvious distress. Mental Status: Alert [...] to Derm for eval. MEDICATIONS reviewed with Chrisney FOLLOW UP: Return to clinic 3-5 days if no improvement in symptoms. UPCOMING APPOINTMENTS: No data available /mariana/ [place] MALDONADO CERTIFIED NURSE PRACTITIONER Signed: 02/26/2024 14:13 RENATA MCLAIN [facility]
--- OUTSIDE RECORDS SUMMARY | 2024-12-21 13:01 | XMS_ITS | Encounter Summary ---
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 Address [address] [place] [address] Care Team Providers Care Housing Court Judge Name Role Phone ROWENA ROY Primary Care Provider [facility] Insurance Providers: All historical and [...] Relationship to Policy Segal [facility] ([facility]) MEDICARE ADVANTAGE [place] INDIV IDUAL - [place] Sep 21, 2023 [id number] GENET DUGAN S [facility]IENT [facility] MEDICARE [facility]) Sep 21, 2023 [id number] [phone] GENET DUGAN S PATIENT HUSKY MEDICAID HUSKY PLAN May 22, 2022 MEDICAI D [id number] GENET DUGAN S PATIENT MEDICARE ([facility]) MEDICARE () PART B May 22, 2022 PART B [id number] GENET DUGAN S PATIENT MEDICARE (WNR) MEDICARE () PART A Feb 19, 2009 PART A [id number] [id number] [phone] GENET DUGAN S PATIENT MEDICARE PART D (WNR) MEDICARE (M) PART D Jul 22, 2022 PART D [id number] DUGAN,GENET S PATIENT [facility] (WNR) MEDICARE ADVANTAGE [facility] (WNR) Sep 21, 2022 [id number] DUGAN,GENET S PATIENT [facility] (WNR) MEDICARE ADVANTAGE [facility] (WNR) Sep 21, 2022 [id number] [phone] GENET DUGAN S PATIENT Selected Encounter This section includes the information on record at [place] for the Encounter. Date/Time Encounter Type Encounter Description Reason Provider Source Mar 21, 2024 09:30 AM OFFICE O/P EST MOD 30 MIN PRIMARY CARE/MEDICINE ICD-10-CM 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, unspecified LUBA,APOLI MARLIN E Encounter Template Text not used by [place] Assessments - Encounter Diagnoses This section includes the primary and secondary diagnoses documented for the Encounter. Date/Time Primary/Secondary Diagnosis Diagnosis Name Provider Source Mar 21, 2024 10:16 AM PRIMARY Obstructive and reflux uropathy, unspecified LUBA,HAYLEY [facility] Mar 21, 2024 10:16 AM SECONDARY Carcinoma in situ of prostate LUBA,HAYLEY [facility] Mar 21, 2024 10:16 AM SECONDARY Encounter [...] 07, 2024 08:30 AM AMBULATORY - MEDICINE [place] [facility] Apr 15, 2024 02:30 PM AMBULATORY - MEDICINE [place] [facility] Apr 27, 2024 10:00 AM AMBULATORY - MEDICINE [place] [facility] May 13, 2024 11:00 AM AMBULATORY - MEDICINE [place] [facility] May 31, 2024 10:00 AM AMBULATORY - MEDICINE [place] [facility] [place] [facility] Jun 03, 2024 12:45 PM AMBULATORY - MEDICINE [place] [facility] [place] [facility] Jun 21, 2024 09:00 AM AMBULATORY - MEDICINE [place] [facility] [place] [facility] Aug 09, 2024 09:00 AM AMBULATORY - MEDICINE [place] [facility] [place] [facility] Aug 16, 2024 12:00 PM AMBULATORY - NONE [facility] [place] [facility] Aug 22, 2024 11:20 AM AMBULATORY - MEDICINE [place] [facility] [place] [facility] Aug 24, 2024 11:00 AM [facility] Sep 01, 2024 11:00 AM AMBULATORY - NONE [facility] [place] [facility] Sep 07, 2024 03:00 PM AMBULATORY - MEDICINE [place] [facility] [place] [facility] Active, Pending, and Scheduled Orders [...] PANEL URINE (RANDOM) [facility] [place] [place] [facility] Mar 19, 2024 12:00 AM Laboratory - Chemistry Order VITAMIN B12 BLOOD (SST-SERUM) [facility] [place] [place] [facility] Mar 19, 2024 12:00 AM Laboratory - Chemistry Order FOLATE BLOOD (SST-SERUM) [facility] [place] [facility] Mar 19, 2024 12:00 AM Laboratory - Chemistry Order VITAMIN D 25-OH (Therapy monitor) BLOOD (SST-SERUM) [facility] [place] [place] [facility] Mar 19, 2024 12:00 AM Laboratory - Chemistry Order BASIC METABOLIC PANEL (fasting) BLOOD (SST-SERUM) [facility] [place] [facility] Mar 19, 2024 12:00 AM Laboratory - Chemistry Order LIPID PANEL FASTING BLOOD (SST-SERUM) [facility] Mar 19, 2024 12:00 AM Laboratory - Chemistry Order LIVER FUNCTION BLOOD (SST-SERUM) [facility] Mar 19, 2024 12:00 AM Laboratory - Chemistry Order CBC AND DIFF (AUTO) BLOOD (LAV-BLOOD) [facility] Mar 19, 2024 12:00 AM Laboratory - Chemistry Order HEMOGLOBIN A1C PANEL BLOOD (LAV-BLOOD) [facility] Mar 19, 2024 12:00 AM Laboratory - Chemistry Order PSA BLOOD (SST-SERUM) [facility] Mar 19, 2024 12:00 AM Laboratory - Chemistry Order TSH BLOOD (SST-SERUM) [facility] Immunizations: All administered on the encounter date [...] 23, 2023 09:00 AM [place]-TOBACCO FORMER USER [facility] Tobacco Use History This section includes a history of the smoking, or tobacco-related health factors, that were collected on or before the date of the Encounter. The data comes from the [place] facility where the Encounter took place. Date/Time Smoking Status/Tobacco Use Comment F acility Jun 23, 2023 09:00 AM VA-TOBACCO QUIT 15 YRS OR MORE [facility] May 01, 2022 01:30 PM VA-TOBACCO FORMER USER [facility] May 01, 2022 01:30 PM VA-TOBACCO QUIT 15 YRS OR MORE [facility] Apr 15, 2021 03:00 PM VA-TOBACCO FORMER USER [facility] Apr 15, 2021 03:00 PM VA-TOBACCO QUIT 15 YRS OR MORE [facility] Oct 20, 2018 12:53 PM VA-TOBACCO FORMER USER [facility] Oct 20, 2018 12:53 PM VA-TOBACCO QUIT 15 YRS OR MORE [facility] Jul 03, 2017 10:33 AM QUIT TOBACCO USE > 7 YEARS AGO quit 25yrs ago [facility] February 13, 2016 08:46 AM LIFETIME NON-TOBACCO USER [facility] Advance Directives: All historical and current Section [...] Mar 21, 2024 09:30 Series: Series 2 [employer]: [employer] Lot: [id number] Exp Date: Sep 07, [address] [facility]: [phone] Admin Route/Site: INTRAMUSCULAR/LEFT DELTOID Dosage: 1mL Vaccine Information Statement(s): HEPATITIS A VACCINE VIS Jul 05, 2021 (STATELESS) Order By: Policy Administered By: Em Garcia [...] patient would like to move back to [place]. Problem list and medications reviewed. Last Labs: [...] 5. Paraesthesia of lower extremity (SNOMED CT [id number]) previously on gabapentin recently with objective signs of dminished circulation to LEFT foot only initial screen for metabolic/nutritional causes of neuropathy unrevealing No show to neurology NCS, Summer 2020 No show to Vascular consult, Summer 2020 6. status post appendectomy 7. Diverticular disease normal colonoscopy August, 8. Osteoarthritis (SNOMED CT [id number]) C/S worst at C6-C7 09/06 mod OA Interphalamgeal joint right thumb 09/06 9. Generalized anxiety disorder 10. Epilepsy [facility] [id number], CELINA Link OV 12-05-15 11. Essential hypertension [facility] [id number], CELINA Link OV 12-05-15 12. Atypical chest pain [facility] [id number], CELINA Link OV 12-05-15 02/13/16 EKG NSR 12/30/17 EKG NSR PHYSICAL EXAMINATION/DIRECTED EXAM: BP:103/65 (03/21/2024 09:53) Resp:20 (03/21/2024 09:53) Temp:96.7 F [35.9 C] (03/21/2024 09:53) Pulse:85 (03/21/2024 09:53) WEIGHT 03/21/2024 09:53 186(84.37)[27] 01/22/2024 15:44 184(83.46)[26] 12/22/2023 10:12 176(79.83)[25] Agitated. ASSESSMENT & PLAN: 79 year old MALE SERVICE CONNECTED % - 50 presents for follow-up. Majority of visit is [...] MD PHYSICIAN Signed: 03/21/2024 10:16 NOLAN VERDUZCO [facility]
--- OUTSIDE RECORDS SUMMARY | 2024-12-21 13:01 | XMS_ITS ---
Author Name [facility] [place] Organization [place] Address [address] [place] [address] Care Team Providers Care Ed Physicians Name Role Phone ROWENA ROY Primary Care [...] [facility] ([facility]) MEDICARE [facility] INDIV IDUAL - [place] Sep 21, 2023 [id number] GENET [facility]UGAN S [facility] MEDICARE ADVANTAGE [facility] ([facility]) Sep 21, 2023 [id number] [phone] MARVIN DUGANI S PATIENT HUSKY MEDICAID HUSKY PLAN May 22, 2022 MEDICAI D [id number] GENET DUGAN S PATIENT MEDICARE ([facility]) MEDICARE () PART B May 22, 2022 PART B [id number] MARVIN DUGANI S PATIENT MEDICARE ([facility]) MEDICARE (M) PART A Feb 19, 2009 PART A [id number] DUGAN,GENET S PATIENT MEDICARE PART D (WNR) MEDICARE (M) PART D Jul 22, 2022 PART D [id number] [phone] GENET DUGAN PATIENT [facility] (WNR) MEDICARE ADVANTAGE MCR (WNR) Sep 21, 2022 [id number] [phone] GENET DUGAN PATIENT [facility] (WNR) MEDICARE ADVANTAGE MCR (WNR) Sep 21, 2022 [id number] GENET DUGAN PATIENT Selected Encounter This [...] borderline findings, low risk, bilateral MERHAR,CAROL B [place] [facility] [place] [facility] Dec 31, 2023 10:37 AM SECONDARY Combined forms of age-related cataract, bilateral MERHAR,CAROL B [place] [facility] [place] [facility] Dec 31, 2023 10:37 AM SECONDARY Dry eye syndrome of bilateral lacrimal glands MERHAR,CAROL B [place] [facility] [place] [facility] Dec 31, 2023 10:37 AM SECONDARY Hypermetropia, bilateral MERHAR,CAROL B [place] [facility] [place] [facility] Plan of Treatment: Future Appointments (+ 6 [...] 22, 2024 02:30 PM AMBULATORY - MEDICINE [place] [facility] [place] [facility] Feb 26, 2024 01:00 PM AMBULATORY - [place]ICINE [place] Feb 26, 2024 01:15 PM AMBULATORY - MEDICINE [place] Mar 10, 2024 09:00 AM AMBULATORY - NONE [place] [facility] [place] [facility] Mar 18, 2024 09:30 AM AMBULATORY - MEDICINE [place] [facility] [place] [facility] Mar 21, 2024 09:30 AM AMBULATORY - MEDICINE [place] [facility] [place] [facility] Apr 07, 2024 08:30 AM AMBULATORY - MEDICINE [place] [facility] [place] [facility] Apr 15, 2024 02:30 PM AMBULATORY - MEDICINE [place] [facility] [place] [facility] Apr 27, 2024 10:00 AM AMBULATORY - MEDICINE [place] [facility] [place] [facility] May 13, 2024 11:00 AM AMBULATORY - MEDICINE [place] [facility] [place] [facility] May 31, 2024 10:00 AM AMBULATORY - MEDICINE [place] [facility] [place] [facility] Jun 03, 2024 12:45 PM AMBULATORY - MEDICINE [place] [facility] [place] [facility] Jun 21, 2024 09:00 AM AMBULATORY - MEDICINE [place] [facility] [place] [facility] Advance Directives: All historical and current Section [...] 5. Paraesthesia of lower extremity (SNOMED CT [id number]) 6. status post appendectomy 7. Diverticular disease 8. Osteoarthritis (SNOMED CT [id number]) 9. Generalized anxiety disorder 10. Epilepsy 11. [...] prognosis. -Stress importance of continued follow-up appointments -[place] repeated back the plan and education. -RTC [...] if vision declines or interferes with ADLs -[place] repeated back the plan and education. -[facility]. 4. Hyperopia with regular astigmatism with [...] Signed: 12/31/2023 11:57 /mariana/ CAROL HOLLOWAY OD Hub Lead Cosigned: 01/01/2024 15:13 01/01/2024 ADDENDUM STATUS: COMPLETED The optometry phd intern participated in this exam, I saw [...] Remote Allergy/ADR Data available for this patient [place] [facility] [place] [facility] HCTZ HYDROCHLOROTHIAZIDE Med [facility] (Tool #1) INCLUDED IN THIS LIST: Alphabetical [...] the patient into personal health records (i.e. [email or web address]) are NOT included in this list. Non-VA [...] ONCE DAILY FOR DRY IRRITATED SKIN Rx# [id number] Last Released: 01/28/23 Qty/Days Supply: 240/90 Rx Expiration Date: 01/29/24 Refills Remainin Indication: FOR DRY SKIN OUTPT ASPIRIN 81MG EC TAB (Status = Active) TAKE ONE TABLET BY MOUTH ONCE DAILY TO PREVENT STROKE/HEART ATTACK Rx# [id number] Last Released: 01/28/23 Qty/Days Supply: 120/90 Rx Expiration Date: 01/29/24 Refills Remainin Indication: FOR BLOOD CLOT PREVENTION FOLLOWING PCI OUTPT CAPSAICIN 0.025% CREAM (Status = Active) APPLY A MODERATE AMOUNT TOPICALLY FOUR TIMES A DAY FOR LOCALIZED PAIN (USE FOR AT LEAST 4 WEEKS FOR EFFECT) Rx# [id number] Last Released: 12/22/23 Qty/Days Supply: 6030 Rx Expiration Date: 12/22/24 Refills Remainin Indication: FOR LOCALIZED PAIN OUTPT CARBOXYMETHYLCELLULOSE NA 0.5% OPH SOLN (Status = Discontinued) INSTILL 1 DROP INTO EACH EYE FOUR TIMES DAILY NEEDED FOR DRY EYE Rx# [id number] Last Released: 12/04/23 Qty/Days Supply: 45/90 Rx Expiration Date: 12/23/23 Refills Remainin Indication: FOR DRY EYE OUTPT CARBOXYMETHYLCELLULOSE NA 1% OPH GEL (Status = Active) APPLY 1 DROP INTO EACH EYE FOUR TIMES DAILY NEEDED FOR DRY EYE Rx# [id number] Last Released: 01/01/24 Qty/Days Supply: 15/30 Rx Expiration Date: 12/31/24 Refills Remainin Indication: FOR DRY EYE Non-VA FLUTICASONE PROP 50MCG 120D NASAL INHL INSTILL 1 SPRAY INTO EACH NOSTRIL TWICE DAILY Medication prescribed by Non-VA provider. [place] [id number], CELINA Link OV 12-05-15 OUTPT FOLIC ACID 1MG TAB (Status = Active) TAKE ONE TABLET BY MOUTH ONCE DAILY FOR INADEQUATE FOLIC ACID VITAMIN/NUTRITION SUPPLEMENT Rx# [id number] Last Released: 06/30/23 Qty/Days Supply: Rx Expiration Date: 06/25/24 Refills Remainin Indication: FOR INADEQUATE FOLIC ACID OUTPT KETOTIFEN 0.025% OPH SOLN (Status = Discontinued) INSTILL 1 DROP INTO EACH EYE TWICE DAILY (IF YOU WEAR CONTACT LENSES, WAIT 10 MINUTES BEFORE INSERTING LENSES) Rx# [id number] Last Released: 09/18/23 Qty/Days Supply: Rx Expiration Date: 11/01/23 Refills Remainin OUTPT KETOTIFEN 0.025% OPH SOLN (Status = Active) INSTILL 1 DROP INTO EACH EYE TWICE DAILY (IF YOU WEAR CONTACT LENSES, WAIT 10 MINUTES BEFORE INSERTING LENSES) Rx# [id number] Last Released: 12/07/23 Qty/Days Supply: Rx Expiration Date: 12/04/24 Refills Remainin OUTPT LIFITEGRAST 5% OPH SOLN 0.2ML (Status = Discontinued) INSTILL 1 DROP INTO EACH EYE TWICE DAILY Rx# [id number] Last Released: 09/18/23 Qty/Days Supply: Rx Expiration Date: 11/01/23 Refills Remainin OUTPT LIFITEGRAST 5% OPH SOLN 0.2ML (Status = Active) INSTILL 1 DROP INTO EACH EYE TWICE DAILY Rx# [id number] Last Released: 01/01/24 Qty/Days Supply: Rx Expiration Date: 12/31/24 Refills Remainin OUTPT LISINOPRIL 20MG TAB (Status = Active) TAKE ONE TABLET BY MOUTH ONCE DAILY TO CONTROL BLOOD PRESSURE Rx# [id number] Last Released: 12/04/23 Qty/Days Supply: Rx Expiration Date: 12/04/24 Refills Remainin Indication: FOR HIGH BLOOD PRESSURE SUPPLIES /mariana/ CAROL HOLLOWAY OD Hub Lead Signed: 01/01/2024 15:15 [facility]
--- OUTSIDE RECORDS SUMMARY | 2024-12-21 13:01 | XMS_ITS | Encounter Summary ---
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 Address [address] [place] [address] Care Team Providers Care Field Hauler Name Role Phone ROWENA ROY Primary [facility] Insurance Providers: All historical and [...] Segal's Name Patient's Relationship to Policy Segal [facility] ([facility]) MEDICARE ADVANTAGE [place] INDIV IDUAL - [place] Sep 21, 2023 [id number] GENET DUGAN S [facility] MEDICARE [facility] ([facility]) Sep 21, 2023 [id number] [phone] GENET DUGAN S PATIENT HUSKY MEDICAID H[place] PLAN May 22, 2022 MEDICAI D [id number] GENET DUGAN S PATIENT MEDICARE ([facility]) MEDICARE () PART B May 22, 2022 PART B [id number] GENET DUGAN S PATIENT MEDICARE (WNR) MEDICARE () PART A Feb 19, 2009 PART A [id number] [phone] GENET DUGAN S PATIENT MEDICARE PART D (WNR) MEDICARE (M) PART D Jul 22, 2022 PART D [id number] GENET DUGAN S PATIENT [facility] (WNR) MEDICARE ADVANTAGE [facility] (WNR) Sep 21, 2022 [id number] GENET DUGAN S PATIENT [facility] (WNR) MEDICARE ADVANTAGE [facility] (WNR) Sep 21, 2022 [id number] [phone] GENET DUGAN PATIENT Selected Encounter This section includes the information on record at [place] for the Encounter. Date/Time Encounter Type Encounter Description Reason Provider Source January 22, 2024 02:30 PM OFFICE O/P EST MOD 30 MIN PRIMARY CARE/MEDICINE ICD-10-CM W06.XXXA Fall from bed, initial encounter HAYLEY VERDUZCO [place] Encounter Template Text not used by [place] Assessments - Encounter Diagnoses This section includes the primary and secondary diagnoses documented for the Encounter. Date/Time Primary/Secondary Diagnosis Diagnosis Name Provider Source January 22, 2024 04:47 PM PRIMARY Fall from bed, initial encounter MONICA VERDUZCO [place] Plan of Treatment: Future Appointments (+ 6 months) and Future Tests (+/- 45 days) The Plan of Treatment section includes future care activities for the patient from all [place] [facility]. This section includes future appointments and [...] 10, 2024 09:00 AM AMBULATORY - NONE [place] [facility] [place] [facility] Mar 18, 2024 09:30 AM AMBULATORY - MEDICINE [place] [facility] [place] [facility] Mar 21, 2024 09:30 AM AMBULATORY - MEDICINE [place] [facility] [facility] Apr 07, 2024 08:30 AM AMBULATORY - MEDICINE [place] [facility] [facility] Apr 15, 2024 02:30 PM AMBULATORY - MEDICINE [place] [facility] [facility] Apr 27, 2024 10:00 AM AMBULATORY - MEDICINE [facility] [facility] May 13, 2024 11:00 AM AMBULATORY - MEDICINE [place] [facility] [place] [facility] May 31, 2024 10:00 AM AMBULATORY - MEDICINE [place] [facility] [place] [facility] Jun 03, 2024 12:45 PM AMBULATORY - MEDICINE [place] [facility] [place] [facility] Jun 21, 2024 09:00 AM AMBULATORY - MEDICINE [facility] [facility] Social History: Smoking Status (Most current) [...] 23, 2023 09:00 AM VA-TOBACCO FORMER USER FATE Tobacco Use History This section includes a history of the smoking, or tobacco-related health factors, that were collected on or before the date of the Encounter. The data comes from the [place] facility where the Encounter took place. Date/Time Smoking Status/Tobacco Use Comment F acility Jun 23, 2023 09:00 AM VA-TOBACCO QUIT 15 YRS OR MORE FATE May 01, 2022 01:30 PM VA-TOBACCO FORMER USER FATE May 01, 2022 01:30 PM VA-TOBACCO QUIT 15 YRS OR MORE FATE Apr 15, 2021 03:00 PM VA-TOBACCO FORMER USER FATE Apr 15, 2021 03:00 PM VA-TOBACCO QUIT 15 YRS OR MORE FATE Oct 20, 2018 12:53 PM VA-TOBACCO FORMER USER FATE Oct 20, 2018 12:53 PM VA-TOBACCO QUIT 15 YRS OR MORE FATE Jul 03, 2017 10:33 AM QUIT TOBACCO USE > 7 YEARS AGO quit 25yrs ago FATE February 13, 2016 08:46 AM LIFETIME NON-TOBACCO USER FATE Advance Directives: All historical and current Section [...] Not worried about housing near future [facility] [place] reports the following: Within the past 12 months, you worried whether your food would run out before you got money to buy more. Never true Within the past 12 months, the food you bought just didn't last and you didn't have money to get more. Never MED REC COMPLETED BY PROVIDER DURING VISIT. /mariana/ EM FREDERICK LPN LPN Signed: 01/22/2024 15:46 EM FREDERICK FATE January 22, 2024 08:32 AM PHYSICIAN NOTE: [...] quite long discussion with Em acting as gas engine operator generators to make certain that we had spoken [...] MD PHYSICIAN Signed: 01/22/2024 16:47 NOLAN VERDUZCO FATE
--- OUTSIDE RECORDS SUMMARY | 2024-12-21 13:01 | XMS_ITS ---
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 Organization [place] Address [address] [place] [address] Care Team Providers Care Franchise Business Consultant Name Role Phone ROWENA ROY Primary Care [...] Policy Segal [facility] MEDICARE ADVANTAGE [place] INDIV IDUAL - [place] Sep 21, 2023 [id number] [phone] GENET [facility]UGAN S [facility] MEDICARE ADVANTAGE [facility] ([facility]) Sep 21, 2023 [id number] [phone] MARVIN DUGANI S PATIENT HUSKY MEDICAID HUSKY PLAN May 22, 2022 MEDICAI D [id number] GENET DUGAN S PATIENT MEDICARE ([facility]) MEDICARE (M) PART B May 22, 2022 PART B [id number] [phone] MARVIN DUGANI S PATIENT MEDICARE ([facility]) MEDICARE (M) PART A Feb 19, 2009 PART A [id number] [phone] DUGAN,GENET S PATIENT MEDICARE PART D (WNR) MEDICARE (M) PART D Jul 22, 2022 PART D [id number] GENET DUGAN PATIENT [facility] (WNR) MEDICARE ADVANTAGE [facility] (WNR) Sep 21, 2022 [id number] GENET DUGAN PATIENT [facility] (WNR) MEDICARE ADVANTAGE MCR (WNR) Sep 21, 2022 [id number] GENET DUGAN PATIENT Selected Encounter This section includes the information on record at [place] for the Encounter. Date/Time Encounter Type Encounter Description Reason Pro vider Source Dec 01, 2024 01:30 PM Outpatient Encounter ADMIN PAT ACTIVTIES ([facility]) [...] 2024 01:30 PM [facility] Jan 02, 2025 10:00 AM AMBULATORY - MEDICINE [place] C [facility] Apr 20, 2025 02:30 PM AMBULATORY - MEDICINE [facility] Active, Pending, and Scheduled Orders [...] AM Consult Order COMMUNITY CARE-RADIATION ONCOLOGY Cons Operations Research Group Manager's Choice [place] Nov 24, 2024 02:21 PM Consult Order COMMUNITY CARE-GEC SKILLED HOME CARE Cons Operations Research Group Manager's Choice [place] Dec 13, 2024 12:00 AM Laboratory - Chemi stry Order LIPID PANEL, NON FASTING BLOOD (SST-SERUM) [facility] Dec 13, 2024 12:00 AM Laboratory - Chemi stry Order BASIC METABOLIC PANEL (non-fasting) BLOOD (SST-SERUM) [facility] Dec 13, 2024 12:00 AM Laboratory - Chemi stry Order CBC AND DIFF (AUTO) BLOOD (LAV-BLOOD) [facility] Dec 13, 2024 12:00 AM Laboratory - Chemi stry Order TSH BLOOD (SST-SERUM) [facility] Dec 13, 2024 12:00 AM Laboratory - Chemi stry Order HEMOGLOBIN A1C PANEL BLOOD (LAV-BLOOD) [facility] Dec 13, 2024 12:00 AM Laboratory - Chemi stry Order LIVER FUNCTION BLOOD (SST-SERUM) [facility] Dec 13, 2024 01:51 PM Consult Order TELE-EYE S CREENING CONSULT/SPOPC (OUTPT) Cons Operations Research Group Manager's Choice [place] Advance Directives: All historical and current Section [...] Encounter. Date/Time Encounter Note(s) Provider Source Dec 01, 2024 01:30 PM SOCIAL WORK NOTE: LOCAL TITLE: [facility] COORDINATION REVIEW TEAM NOTIFICATION STANDARD TITLE: SOCIAL WORK NOTE DATE OF NOTE: DEC 01, 2024@13:30 ENTRY DATE: DEC 01, 2024@13:31:43 AUTHOR: SHAYNE ESCALERA EXP COSIGNER: URGENCY: STATUS: COMPLETED Time Spent Discussing Trail (minutes): [facility] Referral Method: Risk Stratification Process Meeting Focus: Initial Presentation Reason for Review: High risk: CAN Score: 95-98 Utilization: Number of ER ([facility] & community) visits in last 12 months: 10 Triggers/root causes for ER visits: urinary retention Complexity Assessment: Recommended Level of Care Coordination: Moderate Score: 28 20 Questionnaire Complexity Score (#): 28 Disciplines/Specialties in attendance for this Trail: Nurse Shrimp Cleaner Primary Reason for Patient was: Enrolled: Specify: Not enrolled: Specify: has an upcoming appointment with team The most prominent need of the Trail is medical/physical. Program area/services and care coordinators, care managers or correctional case manager whom the worked with prior to the assignment of a Lead Coordinator: Not applicable Case Overview/Summary: 79 year old male with a history of cancer who has been identified as a high utilizer of ER through risk stratification. the has upcoming appointemnt with [facility] where he should be able to discuss care needs Lead Coordinator Assignment Recommendation: Lead Coordinator: NA Program: NA CCRT Plan: CCRT Review Follow-Up Frequency: No anticipated need for follow-up needed by CCRT. Lead Coordinator may bring Trail back for CCRT review if needed. /mariana/ SHAYNE ESCALERA MSN RN NURSE COMPENSATION SUPERVISOR Signed: 12/01/2024 13:53 SHAYNE ESCALERA [place] [facility]
== END 2024-12-21 11:29 | disposition home or self-care (01) ==
LOC: HO.HUSH 10:50
PROVIDERS: PCP Internal Medicine; Visit Provider Urology
DX: C61 Malignant neoplasm of prostate (principal); C77.5 Secondary and unspecified malignant neoplasm of intrapelvic lymph nodes; R33.9 Retention of urine, unspecified
CPT/HCPCS: 51705; 99024

== ENCOUNTER → 2024-12-21 10:50 | Outpatient (BNVA) | payer OTHER, SELFPAY | PROVIDERS: PCP Internal Medicine; Visit Provider Urology | DX: C61 Malignant neoplasm of prostate (principal); C77.5 Secondary and unspecified malignant neoplasm of intrapelvic lymph nodes; R33.9 Retention of urine, unspecified | CPT/HCPCS: 51705; 99212 ==

== ENCOUNTER 2024-12-22 11:47 | Emergency (ER) | payer OTHER, SELFPAY ==
[2024-12-22 11:59] VITALS: BP 149/66; PULSE 68; PULSE 85; RESP 16; TEMP 36.9; O2SAT 95; O2SAT 97; BMI 21.4
--- NOTE | 2024-12-22 12:06 | PC.NURSE ---
Pt states his surgeon (Dr Reina) changed his suprapubic catheter yesterday; pt states catheter is draining, but inserion site painful; area slightly red; small amount of discharge to stoma; pt abefrile; reports constipation and nausea
--- NOTE | 2024-12-22 12:11 | ED.GENADULT ---
HPI - General Adult General Chief complaint: Nausea/Vomiting/Diarrhea Stated complaint: NAUSEA,PAIN W/RICHTER & URINATION PER EMS Time Seen by Provider: 12/22/24 12:01 Source: patient, EMS, RN notes reviewed and vp of digital marketing Mode of arrival: EMS Limitations: no limitations History of Present Illness ED Provider: DR. Meyer HPI narrative: 79-year-old male with history of bladder cancer, s/p TURP, with chronic suprapubic catheter that was changed yesterday by his urologist, patient had a TURP last week ever since patient has been complaining of nausea No vomiting, mild abdominal discomfort around the catheter, patient had no bowel movement for 1 week until they take MiraLax on a bowel movement yesterday. Related Data Home Medications ?Medication ?Instructions ?Recorded ?Confirmed cyanocobalamin (vitamin B-12) 100 100 mcg PO DAILY 11/21/24 11/21/24 mcg tablet (Vitamin B-12) sennosides 8.6 mg tablet (senna) 8.6 mg PO BEDTIME PRN Constipation 11/21/24 11/21/24 Previous Rx's ?Medication ?Instructions ?Recorded ascorbic acid (vitamin C) 1,000 mg 1 g PO DAILY 90 days #90 tabs 09/07/24 tablet morphine 30 mg tablet,extended 30 mg PO Q12H 30 days #60 tabs 11/09/24 release oxycodone 5 mg tablet 5 mg PO Q8H PRN Severe Pain (Scale 11/09/24 Score 7-10) #30 tabs methenamine mandelate 1 gram tablet 1 g PO ONCE 90 days #90 tabs 12/02/24 cefuroxime axetil 500 mg tablet 500 mg PO BID 20 days #40 tabs 12/22/24 ondansetron 4 mg disintegrating 4 mg PO Q8H PRN nausea and 12/22/24 tablet vomiting #7 tabs Allergies Allergy/AdvReac Type Severity Reaction Status Date / Time aspirin [ASPIRIN] Allergy Unknown UNKNOWN Verified 12/22/24 12:06 Review of Systems Review of Systems: All other systems are reviewed and are negative Constitutional: Reports as per HPI and Reports no additional constitutional complaints Eyes: Reports as per HPI and Reports no additional eye complaints Reports system reviewed and no additional complaints, except as documented Cardiovascular: Reports as per HPI and Reports no additional cardiovascular complaints Respiratory: Reports as per HPI and Reports no additional respiratory complaints Gastrointestinal: Reports as per HPI and Reports no additional gastrointestinal complaints Genitourinary: Reports no additional female genitourinary complaints Musculoskeletal: Reports no additional musculoskeletal complaints Skin/Breast: Reports system reviewed and no additional complaints, except as docu Psychiatric: Reports no additional psychiatric complaints Endocrine: Reports no additional endocrine complaints Hematologic/Lymphatic: Reports no additional hematologic/lymphatic complaints Allergic/Immunologic: Reports no additional allergic/immunologic complaints Reports system reviewed and no additional complaints, except as documented and Reports Abnormal speech present FOR[facility] Past Medical History Medical History Prostate cancer Seizures Chronic retention of urine Abnormal prostate specific antigen Dysuria Nodular prostate Gross hematuria Hypertension Surgical History History of bladder surgery History of prostate biopsy Social History Social History Household Members: None Housing: Apartment Are you a primary healthcare insurance sales agent to a significant other at home: No Do you presently have visiting nurse or other home services: No Alcohol intake: never Patient Tobacco Use Status: Former Tobacco user Tobacco use type: Cigarette Advance Directives: No Advance Directives Information Provided: Yes service: No Current occupational status: unemployed and retired Current occupation: right handed Physical Exam ED Vital Signs: Vital Signs - 24 hr 12/22/24 11:59 Temperature 98.4 F Pulse Rate 68 Respiratory Rate 16 Blood Pressure 149/66 H Pulse Oximetry 97 Oxygen Delivery Method Room Air BMI result Body Mass Index 21.4 Vital signs have been reviewed and appear to be correct. Blood pressure elevated. Heart rate normal. Respiratory rate normal. Temperature normal. Oxygen saturation normal. Appearance: Alert. Oriented X3. No acute distress. Head: Normal external exam. Normocephalic. Atraumatic. No Benson signs noted. No raccoon eyes noted Eyes: PERRLA. EOMI. Conjunctiva and sclera normal. Eyelids normal. ENT: TM's Normal. Pharynx normal. Uvula midline. Moist mucous membranes. No trismus noted. No drooling noted. No muffled voice noted. Neck: Normal inspection. Neck supple. FROM. No adenopathy. Thyroid Normal. No meningeal signs. No neck mass noted. CVS: Normal heart rate and rhythm. Heart sound normal. No murmurs noted. Pulses normal throughout. Respiratory: No respiratory distress. Painless inspiration. Breath sounds normal. No wheezes/rales/rhonchi noted. Chest nontender. No accessory muscle usage noted or decreased air movement noted. Abdomen: Soft and nontender. Bowel sounds normal in all 4 quadrants. No distention noted. No organomegaly noted. No visible injury noted. Back: No CVA tenderness. Full range of motion noted. Skin: Skin warm and dry. Normal skin color. Normal skin turgor. No rashes/lesions/lacerations noted. Extremities: No lower extremity edema. Extremities exhibit normal range of motion. Extremities nontender. Neuro: Oriented X 3. Cranial nerve exam: II-XII are grossly intact No motor deficit. No sensory deficit. Reflexes normal. Course Reevaluation(s) Reevaluation #1: Patient feels better after IV fluids and hydration. UA reveals UTI start on Ceftin. Encouraged to drink plenty of fluids. Sublingual Zofran for p.r.n. nausea at home. Time: 13:48 Medications Administered Discontinued Medications Generic Name Dose Route Start Last Admin Trade Name Freq PRN Reason Stop Dose Admin Famotidine 20 mg 12/22/24 12:12/22/24 12:52 Famotidine/Pf 20 Mg/2 Ml Vial IVPUSH 12/22/24 12:10 20 mg ONCE ONE Administration Sodium Chloride 1,000 mls @ 999 mls/hr 12/22/24 12:09 12/22/24 12:51 Ns IV 12/22/24 13:09 999 mls/hr .Q1H1M ONE Administration Ondansetron HCl 4 mg 12/22/24 12:09 12/22/24 12:52 Ondansetron Hcl 4 Mg/2 Ml Vial IVPUSH 12/22/24 12:10 4 mg ONCE ONE Administration Medical Decision Making Differential Diagnosis Differential Diagnoses: The differential diagnosis associated with the presentation includes (Severe anemia, severe dehydration, electrolyte derangement, UTI, KRISTIE.) Admission/Observation Consideration of admission/observation: Escalation of care including admission/observation considered Lab Data MDM Lab Attestation statement: I reviewed the patient's lab results. 12/22/24 12:40 12/22/24 12:40 Labs: Lab Results 12/22/24 12/22/24 Range/Units 12:40 12:42 WBC 7.2 (4.8-10.8) X10*3/uL RBC 4.17 L (4.60-5.80) X10*6/uL Hgb 10.2 L (14.0-18.0) g/dl Hct 32.1 L (42.0-52.0) % MCV 77.0 L (80.0-98.0) fL MCH 24.5 L (27.0-33.0) pg MCHC 31.8 (31.0-36.0) g/dl RDW 16.3 H (11.0-16.0) % Plt Count 324 D (160-400) X10*3/uL MPV 9.1 L (9.4-12.4) fL Immature Gran % (Auto) 0.8 H (0.0-0.4) % Neut % (Auto) 79.6 H (45-73) % Lymph % (Auto) 13.4 L (20-40) % [place] % (Auto) 4.6 (2-11) % Eos % (Auto) 1.0 (0-4) % Baso % (Auto) 0.6 (0-2) % Lymph # (Auto) 1.0 L (1.2-4.9) X10*3/uL [place] # (Auto) 0.3 (0.1-1.2) X10*3/uL Eos # (Auto) 0.1 (0.0-0.4) X10*3/uL Baso # (Auto) 0.0 (0.0-0.2) X10*3/uL Abs Immat Gran (auto) 0.06 H (0.00-0.03) X10*3/uL Absolute Neuts (auto) 5.7 (2.0-8.3) x10*3/uL Absolute Nucleated RBC 0.000 (0.0-0.012) X10*3/uL Nucleated RBC % (auto) 0.0 (0.0-0.2) /100WBC Sodium 140 (135-145) mmol/L Potassium 4.6 (3.3-5.1) mmol/L Chloride 114 H (96-108) mmol/L Carbon Dioxide 18 L (22-29) mmol/L Anion Gap 13 (12-20) BUN 24 H (9-16) mg/dL Creatinine 1.00 (0.5-1.4) mg/dL Estim Creat Clear Calc 56.4 Estimated GFR > 60 Random Glucose 114 (60-115) mg/dL Calcium 7.6 L D (8.4-10.2) mg/dL Total Bilirubin 0.5 (0.0-1.0) mg/dL Direct Bilirubin 0.2 (0.0-0.5) mg/dL AST 58 H (5-37) U/L ALT < 6 (0-40) U/L Alkaline Phosphatase 285 H (39-117) U/L Troponin I High Sens 2.7 (<3.5-35.0) ng/L Total Protein 6.9 (6.5-8.0) g/dL Albumin 3.6 (3.5-5.0) g/dL Lipase 18 (8-78) U/L Urine Color Yellow Urine Appearance Cloudy Urine pH 5.5 (5.0-9.0) Ur Specific [place] 1.025 (1.005-1.025) Urine Protein 100 (2+) H (Neg-Trace) mg/dL Urine Glucose (UA) Negative (Negative) mg/dL Urine Ketones Trace (Negative) mg/dL Urine Blood Moderate (2+) H (Negative) Urine Nitrite Negative (Negative) Ur Leukocyte Esterase Large (3+) H (Negative) Urine RBC >20 H (0-2) /HPF Urine WBC >50 H (0-5) /HPF Ur Squamous Epith Cells 0-2 (0-2) /HPF Urine Bacteria 4+ (None Seen) Hyaline Casts 0-2 (0-2) /LPF Discharge Plan Discharge Clinical Impression: Dehydration, Acute UTI Patient Disposition: Home, Self-Care Instructions: Urinary Tract Infection in Men (ED) Prescriptions: New cefuroxime axetil 500 mg tablet 500 mg PO BID 20 Days Qty: 40 0RF ondansetron 4 mg tablet,disintegrating 4 mg PO Q8H PRN (Reason: nausea and vomiting) Qty: 7 0RF No Action methenamine mandelate 1 gram tablet 1 g PO ONCE 90 Days Qty: 90 0RF Rx Instructions: administer after meals morphine 30 mg Tablet Extended Release 30 mg PO Q12H 30 Days Qty: 60 0RF Rx Instructions: Partial Fill upon patient request. oxycodone 5 mg Tablet 5 mg PO Q8H PRN (Reason: Severe Pain (Scale Score 7-10)) Qty: 30 0RF Rx Instructions: Partial Fill upon patient request. sennosides [senna] 8.6 mg Tablet 8.6 mg PO BEDTIME PRN (Reason: Constipation ) cyanocobalamin (vitamin B-12) [Vitamin B-12] 100 mcg Tablet 100 mcg PO DAILY ascorbic acid (vitamin C) 1,000 mg tablet 1 g PO DAILY 90 Days Qty: 90 1RF Referrals: Elvira Ramachandran MD [Primary Care Provider] - Print Language: Albanian
[2024-12-22 12:47] LABS: MANUAL DIFF FLAG NO
[2024-12-22 12:48] LABS: Basophils Percent Auto 0.6 % (0-2); Eosinophils Absolute Auto 0.1 X10*3/uL (0.0-0.4); Hematocrit 32.1 % (42.0-52.0); Hemoglobin 10.2 g/dl (14.0-18.0); Imm Gran Abs Auto 0.06 X10*3/uL (0.00-0.03); Imm Gran Pct Auto 0.8 % (0.0-0.4); Lymphocytes Percent Auto 13.4 % (20-40); Mean Corpuscular HGB Conc 31.8 g/dl (31.0-36.0); Mean Corpuscular Hemoglobin 24.5 pg (27.0-33.0); Mean Platelet Volume 9.1 fL (9.4-12.4); Monocytes Absolute Auto 0.3 X10*3/uL (0.1-1.2); Monocytes Percent Auto 4.6 % (2-11); Neutrophils Absolute Auto 5.7 x10*3/uL (2.0-8.3); Neutrophils Percent Auto 79.6 % (45-73); Platelet Count 324 X10*3/uL (160-400); Red Blood Count 4.17 X10*6/uL (4.60-5.80); Red Cell Distribution Width 16.3 % (11.0-16.0); White Blood Count 7.2 X10*3/uL (4.8-10.8)
[2024-12-22 12:51] LABS: Appearance Urine Cloudy; Color Urine Yellow; Glucose Urine UA Negative (Negative); Leukocyte Esterase Urine Large (3+) (Negative); Nitrite Urine Negative (Negative); PH 5.5 (5.0-9.0); Specific Gravity - Urine 1.025 (1.005-1.025); UMIC TRIGGER UACC YES; Urine Blood Moderate (2+) (Negative); Urine Ketones Trace mg/dL (Negative); Urine Protein 100 (2+) mg/dL (Neg-Trace)
[2024-12-22] MEDS: 0.9 % Sodium Chloride 1,000 ML 999 ML IV (12:51)
[2024-12-22] MEDS: Famotidine/PF 20 MG/2 ML VIAL IVPUSH (12:52)
[2024-12-22] MEDS: ondansetron HCL 4 MG/2 ML VIAL IVPUSH (12:52)
[2024-12-22 12:53] LABS: Bacteria Urine 4+ (None Seen); Hyaline Casts Urine 0-2 /LPF (0-2); RBC Urine >20 /HPF (0-2); Squamous Epithelial Cell Urine 0-2 /HPF (0-2); UACC Culture Trigger YES; WBC Urine >50 /HPF (0-5)
[2024-12-22 13:04] LABS: Alanine Aminotransferase < 6 U/L (0-40); Albumin Level 3.6 g/dL (3.5-5.0); Alkaline Phosphatase 285 U/L (39-117); Anion Gap 13 (12-20); Aspartate Amino Transferase 58 U/L (5-37); Bilirubin Direct 0.2 mg/dL (0.0-0.5); Bilirubin Total 0.5 mg/dL (0.0-1.0); Blood Urea Nitrogen 24 mg/dL (9-16); Calcium 7.6 mg/dL (8.4-10.2); Carbon Dioxide 18 mmol/L (22-29); Chloride 114 mmol/L (96-108); Creatinine Clr Calc Pharmacy 56.4; Estimated Glomerular Filt Rate > 60; Glucose Random 114 mg/dL (60-115); Lipase 18 U/L (8-78); Potassium 4.6 mmol/L (3.3-5.1); Sodium 140 mmol/L (135-145); Total Protein 6.9 g/dL (6.5-8.0)
[2024-12-22 13:10] LABS: Troponin-I High Sensitivity 2.7 ng/L (<3.5-35.0)
[2024-12-22 14:00] VITALS: BP 132/65; PULSE 66; RESP 16; TEMP 36.9; O2SAT 97
--- OUTSIDE RECORDS SUMMARY | 2024-12-22 14:06 | XMS_ITS | Continuity of Care Document ---
Author Name [facility] Organization [facility] Care Team Providers Care Rpg Developer Name Role Phone [facility] Unavailable Unavailable Problems Combined list of problems from Department of Defense and Veterans Affairs facilities. It does not include entries that were removed or entered in error. Problem Status Onset Date Problem Type Date of Resolution Comments Source Atypical chest pain Active Condition February 12, 2016 Entered By: ALICIA MACHADO Comment: [facility] [phone] PA OV 12-05-15May 2015 Entered By: ALICIA [...] 11 16 Entered By: ALICIA MACHADO Comment: [facility] [phone] PA OV 12-05-15 [facility] Essential hypertension Active Condition February 12, 2016 Entered By: ALICIA MACHADO Comment: [facility] [phone] 0623Eusebio PA OV 12-05-15 [facility] [place] [facility] [place] [facility] Olecranon bursitis Active Condition [place] Osteoarthritis (SNOMED CT 166702653) Active Condition Dec 07, 2017 Entered By: ALICIA MACHADO Comment: C/S worst at C6-C7 2017 Entered By: ALICIA MACHADO Comment: mod OA Interphalamgeal joint right thumb 09/06 [facility] Paraesthesia of lower extremity (SNOMED CT 533384987) Active Condition Apr 23, 2021 Entered By: [...] for assistance with personal care Active Diagnosis [facility] (631GE) Diagnosis: ICD-10-CM 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 [place] Diagnosis: ICD-10-CM C61 Malignant neoplasm of prostate Active Diagnosis [place] Diagnosis: ICD-10-CM Z46.0 Encounter for fit/adjst of spectacles and contact lenses Active Diagnosis [facility] Diagnosis: ICD-10-CM N50.9 Disorder of male genital organs, unspecified Active Diagnosis [place] Diagnosis: ICD-10-CM Z01.810 Encounter for preprocedural cardiovascular examination Active Diagnosis [place] Diagnosis: ICD-10-CM Z23 Encounter for immunization Active Diagnosis [place] Diagnosis: ICD-10-CM Z51.81 Encounter for therapeutic drug level monitoring Active Diagnosis [facility] Diagnosis: ICD-10-CM 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, unspecified Active Diagnosis [place] Diagnosis: ICD-10-CM L82.1 Other seborrheic keratosis Active Diagnosis [facility] Diagnosis: ICD-10-CM Z13.89 Encounter for screening for other disorder Active Diagnosis [facility] Diagnosis: ICD-10-CM L02.818 Cutaneous abscess of other sites Active Diagnosis [facility] Diagnosis: ICD-10-CM L02.212 Cutaneous abscess of back [any part, except buttock] Active Diagnosis [place] Diagnosis: ICD-10-CM W06.XXXA Fall from bed, initial encounter Active Diagnosis [place] Diagnosis: ICD-10-CM H40.013 Open angle with borderline findings, low risk, bilateral Active Diagnosis [facility] Diagnosis: ICD-10-CM R97.20 Elevated prostate specific antigen [PSA] Active Diagnosis [place] Diagnosis: ICD-10-CM I10 Essential (primary) hypertension Active Diagnosis [place] Diagnosis: ICD-10-CM M54.59 Other low back pain Active Diagnosis [facility] [place] [facility] Diagnosis: ICD-10-CM 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 [place] Diagnosis: ICD-10-CM Z59.00 Homelessness unspecified Active Diagnosis [place] Diagnosis: ICD-10-CM Z00.01 Encounter for general adult medical exam w abnormal findings Active Diagnosis [facility] IE Medications Combined list of outpatient [...] DAILY NEEDED FOR PAIN ORAL ACTIVE 10/21/2025 [id number] 5 Mahnaz ROY A 2024 300 [facility] IELD ACETAMINOPH EN 500MG TAB TAKE TWO TABLETS BY MOUTH EVERY 6 HOURS NEEDED FOR PAIN ORAL 03/27/2024 [id number] 4 Zoe MCLAIN 2023 100 [place] ASCORBIC ACID 500MG TAB TAKE TWO TABLETS BY MOUTH ONCE DAILY FOR VITAMIN/ NUTRITIO N SUPPLEME NT ORAL ACTIVE 09/09/2025 [id number] 4 MICHAEL IYER MD 2023 200 [facility] CAPSAICIN 0.025% CREAM,TOP APPLY A MODERATE AMOUNT TOPICALL Y FOUR TIMES A DAY FOR LOCALIZE D PAIN (USE FOR AT LEAST 4 WEEKS FOR EFFECT) TOPICA L ACTIVE 12/22/2024 [id number] 5 LUBA, APOLINARI O 2023 60 [place] CARBAMIDE PEROXIDE 6.5%/GLYCER IN SOLN,OTIC INSTILL 5 DROPS INTO THE LEFT EAR TWICE DAILY FOR EAR WAX BLOCKAGE AURICU LAR (OTIC) ACTIVE 01/12/2025 [id number] 5 Mahnaz ROY 2024 15 [place] CARBOXYMETH YLCELLULOSE NA 0.5% SOLN,OPH INSTILL 1 DROP INTO EACH EYE FOUR TIMES DAILY NEEDED FOR DRY EYE OPHTHA LMIC DISCONT INUED BY PROVIDE R 12/23/2023 [id number] 4 JEWEL,WALTER AH B 2022 45 [facility] CARBOXYMETH YLCELLULOSE NA 1% GEL,OPH APPLY 1 DROP INTO EACH EYE FOUR TIMES DAILY NEEDED FOR DRY EYE OPHTHA LMIC ACTIVE 12/31/2024 [id number] 4 JEWEL,NO AH B 2023 15 [facility] CEFUROXIME AXETIL 500MG TAB TAKE ONE TABLET BY MOUTH TWICE DAILY ORAL 03/23/2024 [id number] 4 PINKY HERRERA 2023 14 [place] CEPHALEXIN 500MG CAP TAKE ONE CAPSULE BY MOUTH THREE TIMES A DAY FOR INFECTIO N ORAL 10/02/2024 [id number] 4 KENNETH BANUELOS 2023 21 [facility] CHOLECALCIF ELMA 10MCG (400UNIT) TAB TAKE ONE TABLET BY MOUTH ONCE DAILY FOR VITAMIN SUPPLEME NTATION ORAL 11/22/2024 [id number] 4 Mahnaz ROY A 2023 90 [place] CIPROFLOXAC IN HCL 500MG TAB TAKE ONE TABLET BY MOUTH TWICE DAILY FOR 7 DAYS FOR INFECTIO N ORAL 09/24/2024 [id number] 4 ALEKSANDR,MAN SOOR 2023 14 [place] CYANOCOBALA MIN 250MCG TAB TAKE ONE TABLET BY MOUTH ONCE DAILY ORAL ACTIVE 08/25/2025 [id number] 4 Mahnaz ROY AVID A 2023 100 [place] CYCLOSPORIN E 0.05% (PF) EMULSION,OP H,0.4ML INSTILL 1 DROP INTO EACH EYE TWICE DAILY FOR DRY EYE THIS REPLACES XIIDRA OPHTHA LMIC ACTIVE 03/22/2025 [id number] 4 WALTER HOLLOWAY B 2023 60 [place] DOCUSATE NA 100MG CAP TAKE ONE CAPSULE BY MOUTH ONCE DAILY TO SOFTEN STOOL ORAL ACTIVE 01/25/2025 [id number] 5 Zoe WEST A 2024 100 [place] FINASTERIDE 5MG TAB TAKE ONE TABLET BY MOUTH ONCE DAILY FOR ENLARGED PROSTATE ORAL ACTIVE 04/01/2025 [id number] 4 MANSOOR VERDUZCO O 2023 90 [place] FLUTICASONE PROPIONATE 50MCG/SPRAY SOLN,NASAL, 16GM INSTILL 1 SPRAY INTO EACH NOSTRIL TWICE DAILY NASAL ACTIVE BRIJESH SELF IA 2015 [place] KETOTIFEN 0.025% SOLN,OPH INSTILL 1 DROP INTO EACH EYE TWICE DAILY (IF YOU WEAR CONTACT LENSES, WAIT 10 MINUTES BEFORE INSERTIN G LENSES) OPHTHA LMIC 12/04/2024 [id number] JEWELNO B 2023 15 [facility] LEVOFLOXACI N 250MG TAB TAKE ONE TABLET BY MOUTH ONCE DAILY FOR 7 DAYS FOR INFECTIO N CAUSED BY BACTERIA ORAL 11/04/2024 [id number] 5 MICHAEL IYER MD 2024 7 [facility] LIFITEGRAST 5% SOLN,OPH,0. 2ML INSTILL 1 DROP INTO EACH EYE TWICE DAILY OPHTHA LMIC DISCONT INUED BY PROVIDE R 12/31/2024 [id number] 4 JEWEL,NO AH B 2023 60 [facility] LISINOPRIL 20MG TAB TAKE ONE TABLET BY MOUTH ONCE DAILY TO CONTROL BLOOD PRESSURE ORAL 12/04/2024 [id number] 4 MANSOOR VERDUZCO O 2023 90 [facility] IELD METHENAMINE HIPPURATE 1GM TAB TAKE ONE TABLET BY MOUTH ONCE DAILY ORAL ACTIVE 09/09/2025 [id number] 4 MICHAEL IYER MD 2023 90 [facility] NALOXONE HCL 4MG/SPRAY SOLN,SPRAY, NASAL INSTILL 1 SPRAY ONE NOSTRIL ONE TIME NEEDED FOR OPIOID OVERDOSE CALL 911 WITH ADMINIST RATION. 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 MEDICATI ON ORAL DISCONT INUED BY PROVIDE R 11/18/2024 [id number] 5 Mahnaz ROY A 2024 15 [facility] IELD SENNOSIDES 8.6MG TAB TAKE ONE TABLET BY MOUTH EVERY EVENING AT BEDTIME ORAL ACTIVE 01/25/2025 [id number] 5 Zoe WEST A 2024 100 [facility] IELD Allergies, Adverse Reactions, Alerts Combined [...] Site Reaction Lot Number CVX Code Drug Snack Bar Attendant Status Comments Source INFLUENZA, HIGH-DOSE, TRIVALENT, PF 2023 NIK BRANDON H LEFT DELTO ID [id number] 135 complet ed [place] HEP A, ADULT 2 2023 PAOLA FREDERICK LEFT DELTO ID [id number] 52 complet ed [place] COVID-19 (MODERNA), MRNA, LNP-S, PF, 50 MCG/0.5 ML (AGES 12+ YEARS) 2022 [place] DY LEFT DELTO ID [id number] 312 complet ed [place] HEP A, ADULT 1 2022 PAOLA FREDERICK RIGHT DELTO ID [id number] 52 complet ed [place] INFLUENZA, HIGH-DOSE, QUADRIVALENT 2022 [place] DY LEFT DELTO ID [id number] 197 complet ed [place] INFLUENZA, INJECTABLE, QUADRIVALENT, PRESERVATIVE FREE 2022 [place] LEFT DELTO ID [id number] 150 complet ed [place] COVID-19 (MODERNA), [...] DOSE 1 2020 207 complet ed MOD; [id number]; 1 [facility] [...] complet ed [facility] [place] [place] Results Combined list of recent chemistry, [...] 24, 2024 11:07 AM Reporting Lab: [facility] [place] [address] [address] [facility]: [facility] [place] [facility] [address] [facility] [address] [place] CBC AND DIFF (AUTO) ERYTHROCYT ES [#/VOLUME] IN BLOOD BY AUTOMATED COUNT 4.72 10*6/uL 4.23 - 5.66 08/24 Specimen Type: BLOOD No comment entered. Ordering Provider: DANISHA ROY A Report Released Date/Time: Aug 24, 2024 11:07 AM Reporting Lab[facility] [place] [facility] [address] [facility] [address] Performing Lab: [facility] [address] [address] [place] CBC AND DIFF (AUTO) HEMOGLOBIN [MASS/VOLU ME] IN BLOOD 12.8 g/dL 12.8 - 17 08/24 Specimen Type: BLOOD No comment entered. Ordering Provider: DANISHA ROY A Report Released Date/Time: Aug 24, 2024 11:07 AM Reporting Lab: [facility] [place] [address] [address] Performing Lab: [facility] [address] [address] [place] CBC AND DIFF (AUTO) HEMATOCRIT [VOLUME FRACTION] OF BLOOD BY AUTOMATED COUNT 38.8 39.2 - 50.4 08/24 L Specimen Type: BLOOD No comment entered. Ordering Provider: DANISHA ROY A Report Released Date/Time: Aug 24, 2024 11:07 AM Reporting Lab: [facility] [place] [address] [address] Performing Lab: [facility] [place] [address] [address] [place] CBC AND DIFF (AUTO) MCV [ENTITIC VOLUME] BY AUTOMATED COUNT 82.2 fL 82 - 99 08/24 Specimen Type: BLOOD No comment entered. Ordering Provider: DANISHA ROY A Report Released Date/Time: Aug 24, 2024 11:07 AM Reporting Lab: [facility] [address] [address] Performing Lab: [facility] [address] [facility] [address] [place] CBC AND DIFF (AUTO) MCHC [MASS/VOLU ME] BY AUTOMATED COUNT 33.0 g/dL 30.8 - 35.1 08/24 Specimen Type: BLOOD No comment entered. Ordering Provider: DANISHA ROY A Report Released Date/Time: Aug 24, 2024 11:07 AM Reporting Lab: [facility] [address] [address] Performing Lab: [facility] [address] [address] [place] CBC AND DIFF (AUTO) PLATELETS [#/VOLUME] IN BLOOD BY AUTOMATED COUNT 312 10*3/uL 140 - 360 08/24 Specimen Type: BLOOD No comment entered. Ordering Provider: DANISHA ROY A Report Released Date/Time: Aug 24, 2024 11:07 AM Reporting Lab: [facility] [address] [address] Performing [facility]: [facility] [address] [address] [place] CBC AND DIFF (AUTO) ERYTHROCYT E DISTRIBUTI ON WIDTH [RATIO] BY AUTOMATED COUNT 12.3 12.0 - 16.0 08/24 Specimen Type: BLOOD No comment entered. Ordering Provider: DANISHA ROY A Report Released Date/Time: Aug 24, 2024 11:07 AM Reporting Lab[facility] [address] [address] Performing Lab: [facility] [address] [address] [place] CBC AND DIFF (AUTO) MONOCYTES [#/VOLUME] IN BLOOD BY AUTOMATED COUNT 0.39 10*3/uL 0.30 - 1.10 08/24 Specimen Type: BLOOD No comment entered. Ordering Provider: DANISHA ROY A Report Released Date/Time: Aug 24, 2024 11:07 AM Reporting [facility]: [facility] [address] [address] Performing Lab: [facility] [place] [facility] [address] [address] [place] CBC AND DIFF (AUTO) MCH [ENTITIC MASS] BY AUTOMATED COUNT 27.1 pg 26.2 - 32.6 08/24 Specimen Type: BLOOD No comment entered. Ordering Provider: DANISHA ROY A Report Released Date/Time: Aug 24, 2024 11:07 AM Reporting Lab: [facility] [place] [facility] [address] [facility] [address] Performing Lab: [facility] [place] [facility] [address] [facility] [address] [place] CBC AND DIFF (AUTO) NEUTROPHIL S/100 LEUKOCYTES IN BLOOD BY AUTOMATED COUNT 80.9 43.7 - 75.8 08/24 H Specimen Type: BLOOD No comment entered. Ordering Provider: DANISHA ROY A Report Released Date/Time: Aug 24, 2024 11:07 AM Reporting Lab: [facility] [place] [facility] [address] [facility] [address] Performing Lab: [facility] [place] [address] [address] [place] CBC AND DIFF (AUTO) LYMPHOCYTE S/100 LEUKOCYTES IN BLOOD BY AUTOMATED COUNT 12.2 14.0 - 42.3 08/24 L Specimen Type: BLOOD No comment entered. Ordering Provider: DANISHA ROY A Report Released Date/Time: Aug 24, 2024 11:07 AM Reporting Lab: [facility] [place] [facility] [address] [facility] [address] Performing Lab: [facility] [place] [address] [address] [place] CBC AND DIFF (AUTO) MONOCYTES/ 100 LEUKOCYTES IN BLOOD BY AUTOMATED COUNT 4.4 5.1 - 13.7 08/24 L Specimen Type: BLOOD No comment entered. Ordering Provider: DANISHA ROY A Report Released Date/Time: Aug 24, 2024 11:07 AM Reporting Lab: [facility] [place] [address] [address] Performing Lab: [facility] [address] [address] [place] CBC AND DIFF (AUTO) EOSINOPHIL S/100 LEUKOCYTES IN BLOOD BY AUTOMATED COUNT 1.6 0.4 - 6.8 08/24 Specimen Type: BLOOD No comment entered. Ordering Provider: DANISHA ROY A Report Released Date/Time: Aug 24, 2024 11:07 AM Reporting [facility]: [facility] [address] [address] Performing Lab: [facility] [address] [address] [place] CBC AND DIFF (AUTO) BASOPHILS/ 100 LEUKOCYTES IN BLOOD BY AUTOMATED COUNT 0.7 0.1 - 2.0 08/24 Specimen Type: BLOOD No comment entered. Ordering Provider: DANISHA ROY A Report Released Date/Time: Aug 24, 2024 11:07 AM Reporting [facility] [address] [address] Performing Lab: [facility] [address] [address] [place] CBC AND DIFF (AUTO) NEUTROPHIL S [#/VOLUME] IN BLOOD BY AUTOMATED COUNT 7.15 10*3/uL 2.20 - 7.60 08/24 Specimen Type: BLOOD No comment entered. Ordering Provider: DANISHA ROY A Report Released Date/Time: Aug 24, 2024 11:07 AM Reporting [facility] [address] [address] Performing Lab: [facility] [address] [address] [place] CBC AND DIFF (AUTO) LYMPHOCYTE S [#/VOLUME] IN BLOOD BY AUTOMATED COUNT 1.08 10*3/uL 1.00 - 3.20 08/24 Specimen Type: BLOOD No comment entered. Ordering Provider: DANISHA ROY A Report Released Date/Time: Aug 24, 2024 11:07 AM Reporting [facility]: [facility] [address] [address] Performing Lab: [facility] [address] [address] [place] CBC AND DIFF (AUTO) EOSINOPHIL S [#/VOLUME] IN BLOOD BY AUTOMATED COUNT 0.14 10*3/uL 0.03 - 0.44 08/24 Specimen Type: BLOOD No comment entered. Ordering Provider: DANISHA ROY A Report Released Date/Time: Aug 24, 2024 11:07 AM Reporting Lab: [facility] [place] [address] [address] Performing Lab: [facility] [address] [address] [place] CBC AND DIFF (AUTO) BASOPHILS [#/VOLUME] IN BLOOD BY AUTOMATED COUNT 0.06 10*3/uL 0.01 - 0.13 08/24 Specimen Type: BLOOD No comment entered. Ordering Provider: DANISHA ROY A Report Released Date/Time: Aug 24, 2024 11:07 AM Reporting Lab: [facility] [address] [address] Performing Lab: [facility] [address] [address] [place] CBC AND DIFF (AUTO) IMMATURE GRANULOCYT ES/100 LEUKOCYTES IN BLOOD BY AUTOMATED COUNT 0.2 0.0 - 0.7 08/24 Specimen Type: BLOOD No comment entered. Ordering Provider: DANISHA ROY A Report Released Date/Time: Aug 24, 2024 11:07 AM Reporting Lab: [facility] [place] [address] [address] Performing Lab: [facility] [address] [address] [place] CBC AND DIFF (AUTO) IMMATURE GRANULOCYT ES [#/VOLUME] IN BLOOD 0.02 10*3/uL 0.00 - 0.06 08/24 Specimen Type: BLOOD No comment entered. Ordering Provider: DANISHA ROY A Report Released Date/Time: Aug 24, 2024 11:07 AM Reporting Lab: [facility] [address] [address] Performing Lab: [facility] [place] [facility] [address] [facility] [address] [place] CBC AND DIFF (AUTO) NRBC % 0.0 0.0 - 0.0 08/24 Specimen Type: BLOOD No comment entered. Ordering Provider: DANISHA ROY A Report Released Date/Time: Aug 24, 2024 11:07 AM Reporting Lab: [facility] [place] [facility] [address] [facility] [address] Performing Lab: [facility] [place] [facility] [address] [facility] [address] [place] CBC AND DIFF (AUTO) NRBC, ABS 0.00 10*3/uL 0.00 - 0.00 08/24 Specimen Type: BLOOD No comment entered. Ordering Provider: DANISHA ROY A Report Released Date/Time: Aug 24, 2024 11:07 AM Reporting Lab: [facility] [place] [address] [address] Per[facility]: [facility] [place] [address] [address] [place] MICROSCOP IC AUTOMATED , URINE LEUKOCYTES [#/AREA] IN URINE SEDIMENT BY MICROSCOPY HIGH POWER FIELD 0-5/[HP F] 0 - 5 08/24 Specimen Type: URINE Comment: If Glucose = >500 and Ketones are positive, please alert the Physician. Ordering Provider: ZAKI VERDUZCO Report Released Date/Time: Aug 09, 2024 09:43 AM Reporting Lab: [facility] [place] [address] [address] Performing Lab: [facility] [place] [address] [address] [facility] [place] [facility] MICROSCOP IC AUTOMATED , URINE BACTERIA [#/AREA] IN URINE SEDIMENT BY MICROSCOPY HIGH POWER FIELD 1+/[HPF ] 08/24 Specimen Type: URINE Comment: If Glucose = >500 and Ketones are positive, please alert the Physician. Ordering Provider: ZAKI VERDUZCO Report Released Date/Time: Aug 09, 2024 09:43 AM Reporting Lab: [facility] [place] [facility] [address] [facility] [address] Performing Lab: [facility] [place] [facility] [address] [facility] [address] [facility] [place] [facility] MICROSCOP IC AUTOMATED , URINE TRIPLE PHOSPHATE CRYSTALS [PRESENCE] IN URINE SEDIMENT BY LIGHT MICROSCOPY MODERAT E/[HPF] 08/24 Specimen Type: URINE Comment: If Glucose = >500 and Ketones are positive, please alert the Physician. Ordering Provider: ZAKI VERDUZCO Report Released Date/Time: Aug 09, 2024 09:43 AM Reporting Lab: [facility] [place] [facility] [address] [facility] [address] Performing Lab: [facility] [place] [facility] [address] [facility] [address] [facility] [place] [facility] MICROSCOP IC AUTOMATED , URINE ERYTHROCYT ES [#/AREA] IN URINE SEDIMENT BY MICROSCOPY HIGH POWER FIELD 6-10/[H PF] 0 - 3 08/24 H Specimen Type: URINE Comment: If Glucose = >500 and Ketones are positive, please alert the Physician. Ordering Provider: ZAKI VERDUZCO Report Released Date/Time: Aug 09, 2024 09:43 AM Reporting Lab: [facility] [place] [facility] [address] [facility] [address] Performing Lab: [facility] [place] [facility] [address] [facility] [address] [facility] [place] [facility] URINALYSI S COLOR OF URINE Light-B rown 08/24 Specimen Type: URINE Comment: If Glucose = >500 and Ketones are positive, please alert the Physician. Ordering Provider: ZAKI VERDUZCO Report Released Date/Time: Aug 09, 2024 09:43 AM Reporting Lab: [facility] [place] [facility] [address] [facility] [address] Performing Lab: [facility] [place] [facility] [address] [facility] [address] [facility] URINALYSI S APPEARANCE OF URINE Turbid 08/24 Specimen Type: URINE Comment: If Glucose = >500 and Ketones are positive, please alert the Physician. Ordering Provider: ZAKI VERDUZCO Report Released Date/Time: Aug 09, 2024 09:43 AM Reporting Lab: [facility] [place] [address] [address] Per[facility]: [facility] [place] [facility] [address] [facility] [address] [facility] [place] [facility] URINALYSI S GLUCOSE [MASS/VOLU ME] IN URINE Normalm g/dL 08/24 Specimen Type: URINE Comment: If Glucose = >500 and Ketones are positive, please alert the Physician. Ordering Provider: ZAKI VERDUZCO Report Released Date/Time: Aug 09, 2024 09:43 AM Reporting Lab: [facility] [place] [address] [address] Per[facility]: [facility] [place] [facility] [address] [facility] [address] [facility] [facility] URINALYSI S KETONES [MASS/VOLU ME] IN URINE BY TEST STRIP NEGATIV Emg/dL 08/24 Specimen Type: URINE Comment: If Glucose = >500 and Ketones are positive, please alert the Physician. Ordering Provider: ZAKI VERDUZCO Report Released Date/Time: Aug 09, 2024 09:43 AM Reporting Lab: [facility] [place] [facility] [address] [facility] [address] Performing Lab: [facility] [place] [address] [address] [facility] URINALYSI S ERYTHROCYT ES [PRESENCE] IN URINE SEDIMENT BY LIGHT MICROSCOPY LARGEmg /dL 08/24 Specimen Type: URINE Comment: If Glucose = >500 and Ketones are positive, please alert the Physician. Ordering Provider: ZAKI VERDUZCO Report Released Date/Time: Aug 09, 2024 09:43 AM Reporting Lab: [facility] [place] [facility] [address] [facility] [address] Performing Lab: [facility] [place] [facility] [address] [facility] [phone] [facility] URINALYSI S PROTEIN [MASS/VOLU ME] IN URINE BY TEST STRIP 100 mg/dL 08/24 Specimen Type: URINE Comment: If Glucose = >500 and Ketones are positive, please alert the Physician. Ordering Provider: ZAKI VERDUZCO Report Released Date/Time: Aug 09, 2024 09:43 AM Reporting Lab: [facility] [place] [facility] [address] [facility] [address] Performing Lab: [facility] [place] [facility] [address] [facility] [address] [facility] URINALYSI S NITRITE [PRESENCE] IN URINE NEGATIV Emg/dL 08/24 Specimen Type: URINE Comment: If Glucose = >500 and Ketones are positive, please alert the Physician. Ordering Provider: ZAKI VERDUZCO Report Released Date/Time: Aug 09, 2024 09:43 AM Reporting Lab: [facility] [place] [facility] [address] [facility] [address] Performing Lab: [facility] [place] [facility] [address] [facility] [address] [place] [facility] [place] [facility] URINALYSI S BILIRUBIN. TOTAL [PRESENCE] IN URINE NEGATIV Emg/dL 08/24 Specimen Type: URINE Comment: If Glucose = >500 and Ketones are positive, please alert the Physician. Ordering Provider: ZAKI VERDUZCO Report Released Date/Time: Aug 09, 2024 09:43 AM Reporting Lab: [place] [facility] [place] [place] [facility] [address] [facility] [address] Performing Lab: [place] [facility] [place] [place] [facility] [address] [facility] [address] [facility] [place] [facility] URINALYSI S SPECIFIC GRAVITY OF URINE BY REFRACTOME TRY 1.007 1.016 - 1.022 08/24 L Specimen Type: URINE Comment: If Glucose = >500 and Ketones are positive, please alert the Physician. Ordering Provider: ZAKI VERDUZCO Report Released Date/Time: Aug 09, 2024 09:43 AM Reporting Lab: [facility] [place] [facility] [address] [facility] [address] Performing Lab: [facility]ITALTRN [facility] [address] [address] [facility]N [place] [facility] URINALYSI S PH OF URINE BY TEST STRIP 8.5 5.0 - 9.0 08/24 Specimen Type: URINE Comment: If Glucose = >500 and Ketones are positive, please alert the Physician. Ordering Provider: ZAKI VERDUZCO Report Released Date/Time: Aug 09, 2024 09:43 AM Reporting Lab: [facility] [place] [address] [address] Performing Lab: [facility] [address] [address] [facility]TR[facility] [place] [facility] URINALYSI S UROBILINOG EN [MASS/VOLU ME] IN URINE BY TEST STRIP Normalm g/dL <2.0 - 2.0 08/24 Specimen Type: URINE Comment: If Glucose = >500 and Ketones are positive, please alert the Physician. Ordering Provider: ZAKI VERDUZCO Report Released Date/Time: Aug 09, 2024 09:43 AM Reporting Lab: [facility] [place] [facility] [address] [facility] [address] Performing Lab: [facility] [address] [address] [facility] [place] [facility] URINALYSI S LEUKOCYTE ESTERASE [PRESENCE] IN URINE BY TEST STRIP LARGE 08/24 Specimen Type: URINE Comment: If Glucose = >500 and Ketones are positive, please alert the Physician. Ordering Provider: ZAKI VERDUZCO Report Released Date/Time: Aug 09, 2024 09:43 AM Reporting Lab: [facility] [address] [address] Performing Lab: [facility] [address] [facility] [address] [facility] VITAMIN D 25-OH (Therapy monitor) 25-HYDROXY [...] additional information , please refer to [email or web address] [email or web address] .flaregames/faq/FA Q199 (This link is being provided for information al/ educational purposes only.) This test was developed and its analytical performance characteris tics have been determined by [facility] [place]. It has not been cleared or approved by the U.S. Food and Drug Administrat ion. This assay has been validated pursuant to the CLIA regulations and is used for clinical purposes. This test was developed and its analytical performance characteris tics have been determined by [facility] [place] It has not been cleared or approved by the U.S. Food and Drug Administrat ion. This assay has been validated pursuant to the CLIA regulations and is used for clinical purposes. Test Performed by [facility], [facility], [address] [place], [place] Dov Bahena M.D., Ph.D., Director of Laboratorie s , CLIA [id number] TEST PERFORMED AT: , Ordering Provider: ZAKI VERDUZCO Report Released Date/Time: Aug 08, 2024 10:54 AM Reporting Lab: [address] [address] Performing Lab: [facility] [address] VITAMIN D 25-OH (Therapy monitor) 25-HYDROXY [...] additional information , please refer to http://educ ation.Kluster .com/faq/FA Q199 (This link is being provided for information al/ educational purposes only.) This test was developed and its analytical performance characteris tics have been determined by [facility] [place]. It has not been cleared or approved by the U.S. Food and Drug Administrat ion. This assay has been validated pursuant to the CLIA regulations and is used for clinical purposes. This test was developed and its analytical performance characteris tics have been determined by [facility] [place]. It has not been cleared or approved by the U.S. Food and Drug Administrat ion. This assay has been validated pursuant to the CLIA regulations and is used for clinical purposes. Test Performed by [facility], [facility] [place], [address] [place], [place] Dov Bahena M.D., Ph.D., Director of Laboratorie s , CLIA [id number] TEST PERFORMED AT: , Ordering Provider: ZAKI VERDUZCO Report Released Date/Time: Aug 08, 2024 10:54 AM Reporting Lab: [facility] [address] [facility] [address] Performing Lab: [facility] [id number] [place] [address] VITAMIN D 25-OH (Therapy monitor) CALCIFEROL (VIT [...] additional information , please refer to [email or web address] ation.Kluster .com/faq/FA Q199 (This link is being provided for information al/ educational purposes only.) This test was developed and its analytical performance characteris tics have been determined by [facility] [place]. It has not been cleared or approved by the U.S. Food and Drug Administrat ion. This assay has been validated pursuant to the CLIA regulations and is used for clinical purposes. This test was developed and its analytical performance characteris tics have been determined by [facility] [place]. It has not been cleared or approved by the U.S. Food and Drug Administrat ion. This assay has been validated pursuant to the CLIA regulations and is used for clinical purposes. Test Performed by [facility], [employer] [place], [address] [place], [place] Dov Bahena M.D., Ph.D., Director of Laboratorie s , CLIA [id number] TEST PERFORMED AT: , Ordering Provider: ZAKI VERDUZCO Report Released Date/Time: Aug 08, 2024 10:54 AM Reporting Lab: [facility] [address] [facility] [address] Performing Lab: [facility] [place] [facility] [address] [address] [facility] [place] [facility] FOLATE (WROX) FOLATE [MASS/VOLU ME] IN SERUM OR PLASMA 4.07 ng/mL 5.2 08/08 L Specimen Type: SERUM No comment entered. Ordering Provider: ZAKI VERDUZCO Report Released Date/Time: Aug 08, 2024 10:54 AM Reporting Lab: [facility] [place] [facility] [address] [facility] [address] Performing Lab: [facility] [place] [facility] [address] [facility] [address] [facility] [place] [facility] MICROALBU MIN CREATININ E RATIO PANEL MICROALBUM IN/CREATIN INE [MASS RATIO] IN URINE 354.2 mg/g 0 - 29.9 08/08 H Specimen Type: URINE No comment entered. Ordering Provider: ZAKI VERDUZCO Report Released Date/Time: Aug 08, 2024 10:54 AM Reporting Lab: [facility] [place] [facility] [address] [facility] [address] Performing Lab: [facility] [place] [facility] [address] [facility] [address] [facility] [place] [place] [facility] MICROALBU MIN CREATININ E RATIO PANEL MICROALBUM IN [MASS/VOLU ME] IN URINE 103.3 mg/dL 08/08 Specimen Type: URINE No comment entered. Ordering Provider: ZAKI VERDUZCO Report Released Date/Time: Aug 08, 2024 10:54 AM Reporting Lab: [facility] [place] [facility] [address] [facility] [address] Performing Lab: [facility] [place] [facility] [address] [facility] [address] [facility] [place] [place] [facility] MICROALBU MIN CREATININ E RATIO PANEL CREATININE [MASS/VOLU ME] IN URINE 291.68 mg/dL 08/08 Specimen Type: URINE No comment entered. Ordering Provider: ZAKI VERDUZCO Report Released Date/Time: Aug 08, 2024 10:54 AM Reporting Lab: [facility] [place] [facility] [address] [facility] [address] Performing Lab: [facility] [place] [facility] [address] [facility] [address] [facility] [place] [facility] VITAMIN B12 COBALAMIN (VITAMIN B12) [MASS/VOLU ME] IN SERUM OR PLASMA 1849 pg/mL 200 - 900 08/08 H Specimen Type: SERUM No comment entered. Ordering Provider: ZAKI VERDUZCO Report Released Date/Time: Aug 08, 2024 10:54 AM Reporting Lab: [facility] [place] [place] [facility] [address] [facility] [address] Performing Lab: [facility] [place] [place] [facility] [address] [facility] [address] [place] [facility] [facility] LIPID PANEL FASTING CHOLESTERO L [MASS/VOLU ME] IN SERUM OR PLASMA 178 mg/dL 08/08 Specimen Type: SERUM No comment entered. Ordering Provider: ZAKI VERDUZCO Report Released Date/Time: Aug 08, 2024 10:54 AM Reporting Lab: [facility] [place] [place] [facility] [address] [facility] [address] Performing Lab: [facility] [place] [facility] [address] [facility] [address] [facility] [place] [facility] LIPID PANEL FASTING TRIGLYCERI DE [MASS/VOLU ME] IN SERUM OR PLASMA 97 mg/dL 0 - 150 08/08 Specimen Type: SERUM No comment entered. Ordering Provider: ZAKI VERDUZCO Report Released Date/Time: Aug 08, 2024 10:54 AM Reporting Lab: [facility] [place] [facility] [address] [facility] [address] Performing Lab: [facility] [place] [facility] [address] [facility] [address] [facility] [place] [facility] LIPID PANEL FASTING CHOLESTERO L IN LDL [MASS/VOLU ME] IN SERUM OR PLASMA BY CALCULATIO N 97 mg/dL 0 - 129 08/08 Specimen Type: SERUM No comment entered. Ordering Provider: ZAKI VERUDZCO Report Released Date/Time: Aug 08, 2024 10:54 AM Reporting Lab: [facility] [address] [facility] [address] Performing Lab: [address] [address] [facility] LIPID PANEL FASTING CHOLESTERO L.TOTAL/CH OLESTEROL IN HDL [MASS RATIO] IN SERUM OR PLASMA 2.9 08/08 Specimen Type: SERUM No comment entered. Ordering Provider: ZAKI VERDUZCO Report Released Date/Time: Aug 08, 2024 10:54 AM Reporting Lab: [address] [address] Performing Lab: [address] [address] [facility] LIPID PANEL FASTING CHOLESTERO L IN HDL [MASS/VOLU ME] IN SERUM OR PLASMA 62 mg/dL 40 - 60 08/08 H Specimen Type: SERUM No comment entered. Ordering Provider: ZAKI VERDUZCO Report Released Date/Time: Aug 08, 2024 10:54 AM Reporting Lab: [address] [address] Performing Lab: [facility] [address] [address] [facility] HEMOGLOBI N A1C PANEL HEMOGLOBIN [...] AM Reporting Lab: [facility] [place] [facility] [address] [facility] [address] Performing Lab: [facility] [place] [facility] [address] [facility] [address] [facility] [place] [place] [facility] BASIC METABOLIC PANEL (fasting) UREA NITROGEN [MASS/VOLU ME] IN SERUM OR PLASMA 22 mg/dL 7 - 25 08/08 Specimen Type: SERUM No comment entered. Ordering Provider: ZAKI VERDUZCO Report Released Date/Time: Aug 08, 2024 10:54 AM Reporting Lab: [facility] [place] [facility] [address] [facility] [address] Performing Lab: [facility] [place] [facility] [address] [facility] [address] [facility] [place] [facility] BASIC METABOLIC PANEL (fasting) GLUCOSE [MASS/VOLU ME] IN SERUM OR PLASMA 91 mg/dL 65 - 100 08/08 Specimen Type: SERUM No comment entered. Ordering Provider: ZAKI VERDUZCO Report Released Date/Time: Aug 08, 2024 10:54 AM Reporting Lab: [facility] [place] [facility] [address] [facility] [address] Performing Lab: [facility] [place] [facility] [address] [facility] [address] [facility] [place] [facility] BASIC METABOLIC PANEL (fasting) SODIUM [MOLES/VOL UME] IN SERUM OR PLASMA 138 mmol/L 135 - 145 08/08 Specimen Type: SERUM No comment entered. Ordering Provider: ZAKI VERDUZCO Report Released Date/Time: Aug 08, 2024 10:54 AM Reporting Lab: [facility] [place] [facility] [address] [facility] [address] Performing Lab: [facility] [place] [facility] [address] [facility] [address] [facility] [place] [facility] BASIC METABOLIC PANEL (fasting) POTASSIUM [MOLES/VOL UME] IN SERUM OR PLASMA 4.8 mmol/L 3.5 - 5.0 08/08 Specimen Type: SERUM No comment entered. Ordering Provider: ZAKI VERDUZCO Report Released Date/Time: Aug 08, 2024 10:54 AM Reporting Lab: [place] [facility] [place] [facility] [address] [facility] [address] Performing Lab: [facility] [address] [facility] BASIC METABOLIC PANEL (fasting) CHLORIDE [MOLES/VOL UME] IN SERUM OR PLASMA 105 mmol/L 100 - 110 08/08 Specimen Type: SERUM No comment entered. Ordering Provider: ZAKI VERDUZCO Report Released Date/Time: Aug 08, 2024 10:54 AM Reporting Lab: [facility] [address] Performing Lab: [facility] [address] [facility] BASIC METABOLIC PANEL (fasting) CARBON DIOXIDE, TOTAL [MOLES/VOL UME] IN SERUM OR PLASMA 25 meq/L 20 - 30 08/08 Specimen Type: SERUM No comment entered. Ordering Provider: ZAKI VERDUZCO Report Released Date/Time: Aug 08, 2024 10:54 AM Reporting Lab: [facility] [address] Performing Lab: [place] [facility] [address] [address] [facility]ITALTRN [facility] BASIC METABOLIC PANEL (fasting) CREATININE [MASS/VOLU ME] IN SERUM OR PLASMA 0.99 mg/dL 0.50 - 1.40 08/08 Specimen Type: SERUM No comment entered. Ordering Provider: ZAKI VERDUZCO Report Released Date/Time: Aug 08, 2024 10:54 AM Reporting Lab: [facility] [address] Performing Lab: [facility] [address] [facility] [address] [facility] BASIC METABOLIC PANEL (fasting) GLOMERULAR FILTRATION RATE/1.73 SQ M.PREDICTE D [VOLUME RATE/AREA] IN SERUM, PLASMA OR BLOOD BY CREATININE -BASED FORMULA (CKD-EPI 2020) 77 mL/min 60 08/08 Specimen Type: SERUM No comment entered. Ordering Provider: ZAKI VERDUZCO Report Released Date/Time: Aug 08, 2024 10:54 AM Reporting Lab: [facility] [address] [facility] [address] Performing Lab: [facility] [address] [facility] [address] [facility] Vital Signs Combined list of inpatient and outpatient Vital Signs from Department of Defense and Veterans Affairs, ranging from 12 months to all on record, depending upon the facility. Vital Sign Value Date Comments Source SYSTOLIC BLOOD PRESSURE 131 12/14/19 13:29:08 [place] DIASTOLIC BLOOD PRESSURE 75 025 13:29:08 [place] PULSE OXIMETRY 95 12/13/2024 13:29:08 [place] WEIGHT 157.2 12/13/2024 13:29:08 [place] BMI 23 kg/m2 12/13/2024 13:29:08 [place] TEMPERATURE 99.3 12/13/2024 13:29:08 [place] PULSE 85 12/13/2024 13:29:08 [place] SYSTOLIC BLOOD PRESSURE 154 08/24/20 12:28:43 [place] DIASTOLIC BLOOD PRESSURE 78 12:28:43 [place] PULSE OXIMETRY 97 08/24/2024 12:28:43 [place] PAIN 0 08/24/2024 12:28:43 [place] HEIGHT 70 08/24/2024 12:28:43 [place] PULSE 68 08/24/2024 12:28:43 [place] RESPIRATION 20 08/24/2024 12:28:43 [place] SYSTOLIC BLOOD PRESSURE 155 08/09/20 24 09:58:25 [facility] DIASTOLIC BLOOD PRESSURE 78 024 09:58:25 [...] to the last 18 months, not all [place] inpatient encounters are included; 2) Encounters from the Department of Defense facilities going backup to 280 months. Location Location Details Encounter Type Encounter Number Reason For Visit Attending Provider ADM Date DC Date Status Disposition Source [facility] OFFICE O/P EST MOD 30-39 MIN [id number] Diagnos is: ICD-10- CM Z00.01 Encount er for general adult medical exam w abnorma l finding s Lou VERDUZCO 06/23 [facility] [place] [facility] Outpatient Encounter [id number] 06/23 [place] [facility] [facility] [facility] S[facility] PER 15MIN [id number] Diagnos is: ICD-10- CM Z59.00 Homeles sness unspeci fied CAPELLA,CY NTHIA 06/25 [facility] OFFICE O/P EST LOW 20-29 MIN [id number] Diagnos is: ICD-10- CM 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.8 Other folate deficie ncy anemias Lou VERDUZCO POLIYASMINIO 06/30 [facility] OFFICE O/P NEW MOD 45-59 MIN [id number] Diagnos is: ICD-10- CM C61 Maligna nt neoplas m of prostat e SANAZ-LE ALEKSANDER AVILES NNE 07/03 [place] [facility] OFFICE O/P EST MOD 30-39 MIN [id number] Diagnos is: ICD-10- CM 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 LUBA,A POLINARIO 07/06 [place] [facility] [place] En[facility] [id number] 07/14 [facility] [place] [facility] [facility] [place] En[facility] [id number] 07/16 [facility] [place] [facility] [facility] [place] OFFICE O/P NEW MOD 45-59 MIN [id number] Diagnos is: ICD-10- CM M54.59 Other low back pain NICANOR MARIA RA 07/16 [facility] [place] [facility] [facility] En[facility] [id number] 07/17 [facility] [place] [facility] [facility] [place] En[facility] [id number] 07/20 [facility] [place] [facility] [facility] [place] En[facility] [id number] 07/21 [facility] [place] [facility] [facility] En[facility] [id number] 08/10 [facility] [place] [facility] [facility] En[facility] [id number] 08/14 [facility] [place] [facility] [facility] En[facility] [id number] 08/24 [facility] [place] [facility] En[facility] [id number] 09/16 [facility] [place] [place] OFF[facility] O/P EST LOW 20-29 MIN [id number] Diagnos is: ICD-10- CM I10 Essenti al (primar y) hyperte nsion LUBA,A POLINARIO 09/18 [place] [facility] En[facility] [id number] 10/06 [facility] [place] [facility] En[facility] [id number] 10/06 [facility] [place] En[facility] [id number] 10/06 [facility] [place] Encounter [id number] 10/06 [facility] [place] [facility] [facility] Outpatient Encounter [id number] LUBA,Lou POLINAR10/06 [place] [facility] Encounter [id number] 10/08 [facility] [place] En[facility] [id number] 10/14 [facility] [place] [facility] Encounter [id number] 10/26 [facility] [place] En[facility] [id number] 12/03 [facility] [place] Encounter [id number] 12/03 [facility] [place] [facility]P EST MOD 30 MIN [id number] Diagnos is: ICD-10- CM R97.20 Elevate d prostat e specifi c antigen [PSA] LUBA,A POLINARIO 12/21 [place] [facility] [place] [facility] COMPRE OPH EXAM EST PT 1/ [id number] Diagnos is: ICD-10- CM H40.013 Open angle with borderl ine finding s, low risk, bilater al MERHAR,ALANA H B 12/30 [facility] [place] [place] [facility] CMPTR OPHTH IMG OPTIC NERVE [id number] Diagnos is: ICD-10- CM H40.013 Open angle with borderl ine finding s, low risk, bilater al MERHAR,ALANA H B 12/30 [facility] [place] [facility]P EST MOD 30 MIN [id number] Diagnos is: ICD-10- CM W06.XXX A Fall from bed, initial encount er LUBA,A POLINARIO 01/21 [place] [facility] Out[facility] Encounter [id number] 01/24 [facility] [place] En[facility] [id number] 01/27 [facility] [place] En[facility] [id number] 02/21 [facility] [place] [facility] [place] [facility] Outpatient Encounter [id number] 02/25 [facility] [place] [facility] [place] OFF/OP EST JANUARY X REQ PHY/QHP [id number] Diagnos is: ICD-10- CM L02.212 [place] us abscess of back [any part, except buttock ] PAULINESONIAKAMRYNLATISHA BERNAL 02/25 [facility] [place] [facility] Outpatient Encounter [id number] 02/25 [facility] [place] [facility] EST MOD 30 MIN [id number] Diagnos is: ICD-10- CM L02.818 [place] us abscess of other sites ROWDY MCLAIN 02/25 [facility] [place] [facility] Outpatient Encounter [id number] 03/02 [facility] [place] [facility] UNLISTED SPEC DERM SVC/PX [id number] Diagnos is: ICD-10- CM Z13.89 Encount er for screeni ng for other disorde r Sree POSAAD 03/10 [facility] Outpatient Encounter [id number] Diagnos is: ICD-10- CM L82.1 Other seborrh eic keratos is ADRIANNE MELISSA 03/14 [facility] [place] [facility] Outpatient Encounter [id number] 1.03/14 [facility] [place] [facility] [place] [facility] Outpatient Encounter [id number] 1.03/14 [facility] [place] [facility] [place] [facility] Outpatient Encounter [id number] 03/18 [facility] [place] [facility] [place] [facility] OFFICE O/P EST MOD 30 MIN [id number] Diagnos is: ICD-10- CM N13.9 Obstruc tive and reflux uropath y, unspeci fied LUBA,A POLINARIO 03/21 [place] [facility] [place] [facility] Outpatient Encounter [id number] 03/21 [facility] [place] [facility] [place] QNHP OL DIG ASSMT&MGMT 5-10 [id number] Diagnos is: ICD-10- CM Z51.81 Encount er for therape utic drug level monitor CHAY Higginbotham [place] [facility] [place] [facility] Outpatient Encounter [id number] 04/04 [facility] [place] [facility] [place] [facility] Outpatient Encounter [id number] 04/07 [facility] [place] [facility] [place] [facility] Outpatient Encounter [id number] 04/19 [facility] [place] [facility] [place] OFF[facility] O/P EST MOD 30 MIN [id number] Diagnos is: ICD-10- CM 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 ULBA,A POLINARIO 04/27 [place] [facility] Outpatient Encounter [id number] [facility] [place] OFF/OP EST MAY X REQ PHY/QHP [id number] Diagnos is: ICD-10- CM Z23 Encount er for immuniz atParis Haley BERTIN H 05/31 [place] [facility] En[facility] [id number] 06/01 [facility] Encounter [id number] 06/01 [facility] En[facility] [id number] 06/03 [facility] En[facility] [id number] 1.06/07 [facility] Encounter [id number] 06/07 [facility] Encounter [id number] 06/13 [facility] Encounter [id number] 06/16 [facility] OFFICE O/P EST MOD 30 MIN [id number] Diagnos is: ICD-10- CM Z01.810 Encount er for preproc edural cardiov ascular examina tahiraon Lou VERDUZCO 06/21 [facility] [place] [facility] Encounter [id number] 06/23 [facility] Encounter [id number] 06/24 [facility] Encounter [id number] 06/29 [facility] Encounter [id number] 06/30 [facility] Encounter [id number] 1.07/06 [facility] Encounter [id number] 07/07 [facility] Encounter [id number] [facility] Encounter [id number] 07/18 [facility] Encounter [id number] 07/19 [facility] Encounter [id number] 07/20 [facility] Encounter [id number] 07/26 [facility] Encounter [id number] 07/29 [facility] Encounter [id number] 08/04 [facility] [place] O/P EST MOD 30 MIN [id number] 1BY. 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 ROY,DA VID A 08/24 [place] [facility] Outpatient Encounter [id number] 08/25 [facility] Encounter [id number] 08/29 [facility] LD OFFICE O/P EST LOW 20 MIN [id number] Diagnos is: ICD-10- CM C61 Maligna nt neoplas m of prostat e LUBA,A POLINARIO 08/31 [place] [facility] Outpatient Encounter [id number] 09/05 [facility] OFF/OP EST MAY X REQ PHY/QHP [id number] Diagnos is: ICD-10- CM 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 LUBA,A POLINARIO 09/06 [place] [facility] Out[facility] Encounter [id number] 09/07 [facility] Encounter [id number] 09/09 [facility] Encounter [id number] 1.09/15 [facility] Encounter [id number] 1.09/15 [facility] Encounter [id number] [facility] Encounter [id number] 09/15 [facility] Out[facility] Encounter [id number] 09/29 [facility] Out[facility] Encounter [id number] 10/05 [facility] Encounter [id number] 10/13 [facility] Encounter [id number] 10/17 [facility] Encounter [id number] 10/20 [facility] Out[facility] Encounter [id number] 10/21 [facility] Encounter [id number] [facility] Encounter [id number] 10/25 [facility] Out[facility] Encounter [id number] [facility] Out[facility] Encounter [id number] [facility] Out[facility] Encounter [id number] 10/27 [facility] Out[facility] Encounter [id number] 10/28 [facility] Out[facility] Encounter [id number] 11/01 [facility] Out[facility] Encounter [id number] 11/08 [facility] Out[facility] Encounter [id number] 11/09 [facility] Out[facility] Encounter [id number] 11/10 [facility] Out[facility] Encounter [id number] 11/11 [facility] (6[facility]) Outpatient Encounter [id number] 11/14 [facility] (6[facility]) [facility] (631GE) PH1 ASSMT&MGMT NQHP -30 [id number] Diagnos is: ICD-10- CM Z74.1 Need for assista nce with persona l ALIN Torres 11/14 [facility] (6[facility]GE) [facility] Out[facility] Encounter [id number] 11/17 [facility] Out[facility] Encounter [id number] 11/21 [facility] Out[facility] Encounter [id number] 11/22 [facility] Out[facility]counter [id number] 11/22 [facility] Out[facility]counter [id number] 11/23 [facility] Out[facility] Encounter [id number] 11/25 [facility] Out[facility] Encounter [id number] 12/01 [facility] Out[facility] Encounter [id number] 12/06 [facility] Out[facility] Encounter [id number] 12/09 [facility] Out[facility]counter [id number] 12[facility]13 [facility] Out[facility]counter [id number] 12/22 [facility] Out[facility] Encounter [id number] 12/22 [facility] Social History Combined list of available smoking, tobacco, and other social history from Department of Defense and Veterans Affairs facilities. 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 Additional future care activities may be listed in the Assessment and Plan section. Date/Time Care Activity Care Activity Detail Facili ty 12/30/2024 AMBULATORY - MEDICINE AMBULATORY - [facility]ICI [facility] [place] [facility] Advance Directives List of completed, amended, or rescinded Advance Directives on record at Department of [facility] facilities. An actual copy of the Directive is not included. Date Advance Directive Provider Source 04/04/2024 ADVANCE DIRECTIVE CHAPINCITO DEE [facility]
--- OUTSIDE RECORDS SUMMARY | 2024-12-22 14:06 | XMS_ITS | Clinical Summary ---
Author Organization [address] [facility] Address [address] [place] [address] Phone Care Team Providers Care Clay Grinder Name Role Phone Erik Hill Primary Care Provider [phone] Allergies Active Allergy Reactions Criticality Noted Date [...] EST - 10/19/2024 7:26 AM EST Emergency [facility] Emergency [address] [place] [address] Malfunction of Mccurdy catheter, initial [...] and culture (10/19/2024 5:38 AM EST) Specific Moran Urine 1.020 1.003 - 1.030 LAB URINALYSIS - AUTOMATED METHOD 10/19/2024 6:50 AM EST [facility] pH, Urine 8.5(A) 5.0 - 8.0 pH LAB URINALYSIS - AUTOMATED METHOD 10/19/2024 6:50 AM [facility] Leukocytes, Urine Large(A) Negative LAB URINALYSIS - AUTOMATED METHOD 10/19/2024 6:50 AM [facility] Nitrite, Urine Negative Negative LAB URINALYSIS - AUTOMATED METHOD 10/19/2024 6:50 AM [facility] Protein, Urine 300(A) <=Trace mg/dL LAB URINALYSIS - AUTOMATED METHOD 10/19/2024 6:50 AM [facility] Glucose, Urine Negative Negative mg/dL LAB URINALYSIS - AUTOMATED METHOD 10/19/2024 6:50 AM [facility] Ketones, Urine Negative Negative mg/dL LAB URINALYSIS - AUTOMATED METHOD 10/19/2024 6:50 AM [facility] Urobilinogen, Urine 0.2 0.2 - 1.0 mg/dL LAB URINALYSIS - AUTOMATED METHOD 10/19/2024 6:50 AM [facility] Bilirubin, Urine Negative Negative LAB URINALYSIS - AUTOMATED METHOD 10/19/2024 6:50 AM [facility] Blood, Urine Large(A) Negative LAB URINALYSIS - AUTOMATED METHOD 10/19/2024 6:50 AM [facility] RBC, Urine 292.8(H) 0 - 4 /HPF LAB URINALYSIS - AUTOMATED METHOD 10/19/2024 6:50 AM [facility] WBC, Urine 9.2(H) 0 - 4 /HPF LAB URINALYSIS - AUTOMATED METHOD 10/19/2024 6:50 AM [facility] Squamous Epithelial, Urine >100(H) 0 - 60 /LPF LAB URINALYSIS - AUTOMATED METHOD 10/19/2024 6:50 AM [facility] Bacteria, Urine Few(A) Negative /HPF LAB URINALYSIS - AUTOMATED METHOD 10/19/2024 6:50 AM EST [facility] Hyaline Casts, Urine 63.9(H) 0 - 3 /LPF LAB URINALYSIS - AUTOMATED METHOD 10/19/2024 6:50 AM [facility] Urine Urine specimen obtained by clean catch procedure / Unknown Non-blood Collection / Unknown 10/19/2024 5:38 AM EST 10/19/2024 6:20 AM EST [facility] LAB URINE ORDERABLES Final Resul t Performing Organization Address City/[facility]/ZIP Co de Phone Number [facility] [address] [place] [address], [place] [phone] * Lan urine culture tube (10/19/2024 5:38 AM EST) Extra Tube Hold for add-ons. 10/19/2024 8:01 AM [facility] Comment:Auto resulted. Urine Urine specimen obtained by clean catch procedure / Unknown Non-blood Collection / Unknown 10/19/2024 5:38 AM EST 10/19/2024 6:20 AM EST us [facility] LAB URINE ORDERABLES Final Resul t Performing Organization Address City/[facility]/ZIP Co de Phone Number [facility] [address] [place] [address], [place] [phone] * Culture urine (10/19/2024 5:38 AM EST) Culture, Urine No growth 10/20/2024 8:31 AM [facility] Urine Urine specimen obtained by clean catch procedure / Unknown Non-blood Collection / Unknown 10/19/2024 5:38 AM EST 10/19/2024 6:50 AM EST us [facility] LAB MICROBIOLOGY - GENERAL ORDER MALATHI Final Result [facility] [address] [place] [address], * (ABNORMAL) CBC auto differential (10/19/2024 4:21 AM EST) [facility] Signature WBC 8.7 4.8 - 10.8 K/mcL LAB HEMETOLOGY METHOD 10/19/2024 4:28 AM [facility] RBC 4.10(L) 4.50 - 5.50 M/mcL LAB HEMETOLOGY METHOD 10/19/2024 4:28 AM [facility] Hemoglobin 10.8(L) 13.5 - 17.5 g/dL LAB HEMETOLOGY METHOD 10/19/2024 4:28 AM [facility] Hematocrit 33.6(L) 42.0 - 54.0 % LAB HEMETOLOGY METHOD 10/19/2024 4:28 AM [facility] MCV 81.8 79.0 - 98.0 FL LAB HEMETOLOGY METHOD 10/19/2024 4:28 AM [facility] MCH 26.3(L) 27.0 - 32.0 pcg LAB HEMETOLOGY METHOD 10/19/2024 4:28 AM [facility] MCHC 32.1 32.0 - 37.0 g/dL LAB HEMETOLOGY METHOD 10/19/2024 4:28 AM [facility] RDW 12.8 11.0 - 15.0 % LAB HEMETOLOGY METHOD 10/19/2024 4:28 AM [facility] Platelets 351 130 - 400 K/mcL LAB HEMETOLOGY METHOD 10/19/2024 4:28 AM [facility] MPV 9.2 7.0 - 11.0 FL LAB HEMETOLOGY METHOD 10/19/2024 4:28 AM [facility] NRBC 0.0 <1.0 % LAB HEMETOLOGY METHOD 10/19/2024 4:28 AM [facility] NRBC Absolute 0.00 <0.10 K/mcL LAB HEMETOLOGY METHOD 10/19/2024 4:28 AM [facility] Neutrophils Relative 82.1 % LAB HEMETOLOGY METHOD 10/19/2024 4:28 AM [facility] Lymphocytes Relative 10.1 % LAB HEMETOLOGY METHOD 10/19/2024 4:28 AM [facility] Monocytes Relative 5.7 % LAB HEMETOLOGY METHOD 10/19/2024 4:28 AM [facility] Eosinophils Relative 0.6 % LAB HEMETOLOGY METHOD 10/19/2024 4:28 AM [facility] Basophils Relative 0.7 % LAB HEMETOLOGY METHOD 10/19/2024 4:28 AM [facility] Immature Granulocytes Relative 0.8 % LAB HEMETOLOGY METHOD 10/19/2024 4:28 AM [facility] Neutrophils Absolute 7.14(H) 1.50 - 7.00 K/mcL LAB HEMETOLOGY METHOD 10/19/2024 4:28 AM [facility] Lymphocytes Absolute 0.88(L) 1.00 - 5.00 K/mcL LAB HEMETOLOGY METHOD 10/19/2024 4:28 AM [facility] Monocytes Absolute 0.50 0.20 - 1.00 K/mcL LAB HEMETOLOGY METHOD 10/19/2024 4:28 AM [facility] Eosinophils Absolute 0.05 0.00 - 0.50 K/mcL LAB HEMETOLOGY METHOD 10/19/2024 4:28 AM [facility] Basophils Absolute 0.06 0.00 - 0.20 K/mcL LAB HEMETOLOGY METHOD 10/19/2024 4:28 AM [facility] Immature Granulocytes Absolute 0.07(H) 0.00 - 0.03 K/mcL LAB HEMETOLOGY METHOD 10/19/2024 4:28 AM [facility] Blood Venous blood specimen / Unknown Venipuncture / Unknown 10/19/2024 4:21 AM EST 10/19/2024 4:25 AM EST [facility] LAB BLOOD ORDERABLES Final Resul t [facility] [address] [place] [address], [place] [phone] * (ABNORMAL) Basic metabolic panel (10/19/2024 4:21 AM EST) Sodium 137 133 - 145 mmol/L LAB CHEMISTRY METHOD 10/19/2024 4:43 AM [facility] Potassium 4.1 3.5 - 5.5 mmol/L LAB CHEMISTRY METHOD 10/19/2024 4:43 AM [facility] Chloride 108 96 - 110 mmol/L LAB CHEMISTRY METHOD 10/19/2024 4:43 AM [facility] CO2 23 21 - 32 mmol/L LAB CHEMISTRY METHOD 10/19/2024 4:43 AM [facility] Anion Gap 6 3 - 11 LAB CHEMISTRY METHOD 10/19/2024 4:43 AM [facility] Glucose 117(H) 70 - 100 mg/dL LAB CHEMISTRY METHOD 10/19/2024 4:43 AM [facility] BUN 22 5 - 25 mg/dL LAB CHEMISTRY METHOD 10/19/2024 4:43 AM [facility] Creatinine 1.53(H) 0.70 - 1.30 mg/dL LAB CHEMISTRY METHOD 10/19/2024 4:43 AM [facility] eGFR 46(L) >=60 mL/min/1. 73m2 LAB CHEMISTRY METHOD 10/19/2024 4:43 AM EST [facility] Comment:Calculation based on the??Chronic Kidney Disease Epidemiology Collaboration (CKD-EPI) equation refit??without adjustment for race. BUN/Creatinine Ratio 14.4 LAB CHEMISTRY METHOD 10/19/2024 4:43 AM EST [facility] Calcium 9.0 8.5 - 10.5 mg/dL LAB CHEMISTRY METHOD 10/19/2024 4:43 AM [facility] Blood Venous blood specimen / Unknown Venipuncture / Unknown 10/19/2024 4:21 AM EST 10/19/2024 4:25 AM EST [facility] LAB BLOOD ORDERABLES Final Resul t [facility] [address] [place] [address], from Last 3 Months Insurance [place]ICA[place] - [place] Care Teams Clay Grinder Relationship Specialty Start Date End Date Erik Hill PA [address] [place] [address] PCP - General Internal Medicine 10/19/24
--- OUTSIDE RECORDS SUMMARY | 2024-12-22 14:07 | XMS_ITS | Clinical Summary ---
Author Organization Unknown Care Team Providers Care Shoe Turner Name Role Phone BHUMIKA MURRAY, SUZY Unavailable Unavailable JESSICA RN, MG Unavailable Unavailable BRITTON RN, CLARISA Unavailable Unavailable Payers Payer Name Policy Type Policy Number Effective Date Expira tion Date [facility] CCN OPTUM PROGRAM - PDGM Problems Condition Name Condition Details Condition Category Status Onset Date Resolution Date Last Treatment Date Treating Clinician Comments SECONDARY MALIGNANT NEOPLASM OF BONE Active 09-21 00:00: 00 MALIGNANT NEOPLASM OF PROSTATE Active 09-21 00:00: 00 EPILEPSY, UNSP, NOT INTRACTABLE, WITHOUT STATUS EPILEPTICUS Active 09-21 00:00: 00 ESSENTIAL (PRIMARY) HYPERTENSION Active 09-21 00:00: 00 ATHSCL HEART DISEASE OF [place] CORONARY ARTERY W/O ANG PCTRS Active 09-21 [...] 11-21 00:00: 00 11-25 00:00 :00 No [id number] Per instruc tions Per instructio ns (route: oral) Med Classific ation: Analgesic , Anti-infl ammatory or Antipyret ic morphine ER 15 mg tablet,exte nded release - 00:00: 00 12-09 23:59 :00 No [id number] Per instruc tions EVERY 12 HOURS Per instructio ns EVERY 12 HOURS (route: oral) Med Classific ation: Analgesic , Anti-infl ammatory or Antipyret ic acetaminoph en 500 mg tablet 11-25 00:00: 00 Yes [id number] 2 tablet 3 TIMES DAILY 2 tablet 3 TIMES DAILY (route: oral) Med Classific ation: Analgesic , Anti-infl ammatory or Antipyret ic cyanocobala min (vitamin B-12) 2,500 mcg tablet 11-25 00:00: 00 Yes [id number] 1 tablet DAILY 1 tablet DAILY (route: oral) Med Classific ation: Electroly te Balance-N utritiona l Products docusate sodium 100 mg capsule 11-25 00:00: 00 Yes [id number] 1 capsule DAILY 1 capsule DAILY (route: oral) Med Classific ation: Gastroint estinal Therapy Agents lisinopril 20 mg tablet 11-25 00:00: 00 Yes [id number] 1 tablet DAILY 1 tablet DAILY (route: oral) Med Classific ation: Cardiovas cular Therapy Agents methenamine hippurate 1 gram tablet 11-25 00:00: 00 12-13 23:59 :00 No [id number] 1 tablet DAILY 1 tablet DAILY (route: oral) Med Classific ation: Genitouri nary Therapy oxycodone 5 mg tablet 11-25 00:00: 00 Yes [id number] 1 tablet EVERY 8 HOURS 1 tablet EVERY 8 HOURS (route: oral) Med Classific ation: Analgesic , Anti-infl ammatory or Antipyret ic senna 8.6 mg tablet 11-25 00:00: 00 Yes [id number] 2 tablet BEDTIME 2 tablet BEDTIME (route: oral) Med Classific ation: Gastroint estinal Therapy Agents Vitamin C 500 mg tablet 11-25 00:00: 00 Yes [id number] 2 tablet DAILY 2 tablet DAILY (route: oral) Med Classific ation: Electroly te Balance-N utritiona l Products Vitamin D3 50 mcg (2,000 unit) tablet 11-25 00:00: 00 Yes [id number] 1 tablet DAILY 1 tablet DAILY (route: oral) Med Classific ation: Electroly te Balance-N utritiona l Products morphine ER 30 mg tablet,exte nded release 12-09 00:00: 00 Yes [id number] 1 tablet EVERY 12 HOURS 1 tablet EVERY 12 HOURS (route: oral) Med Classific ation: Analgesic , Anti-infl ammatory or Antipyret ic methenamine mandelate 1 gram tablet 12-13 00:00: 00 Yes [id number] 1 tablet DAILY 1 tablet DAILY (route: [...] BLOCKAGE/LEAKAGE, HEAVY SEDIMENT. 1 - 3 PRN LONG-TERM VISITS FOR CATHETER CHANGE(S) AND/OR TROUBLESHOOTING. [code [...] BLOCKAGE/LEAKAGE, HEAVY SEDIMENT. 1 - 3 PRN LONG-TERM VISITS FOR CATHETER CHANGE(S) AND/OR TROUBLESHOOTING.] Future [...] MAINTAIN SITUATIONAL AWARENESS AND WILL NOTIFY CLINICAL FLIGHT LINE SERVICE ATTENDANT AND PHYSICIAN/PROVIDER WITH ANY CHANGE IN CONDITION. [code = SKILLED NURSE TO PERFORM ENVIRONMENTAL SAFETY RISK ASSESSMENT AND FALL RISK ASSESSMENT AND PROVIDE INSTRUCTION TO IMPLEMENT ENVIRONMENTAL SAFETY AND FALL PREVENTION STRATEGIES THROUGHOUT THE CERTIFICATION PERIOD. SKILLED NURSE WILL MAINTAIN SITUATIONAL AWARENESS AND WILL NOTIFY CLINICAL FLIGHT LINE SERVICE ATTENDANT AND PHYSICIAN/PROVIDER WITH ANY CHANGE IN CONDITION.] [...] BLOCKAGE/LEAKAGE, HEAVY SEDIMENT. 1 - 3 PRN LONG-TERM VISITS FOR CATHETER CHANGE(S) AND/OR TROUBLESHOOTING. [code = SKILLED NURSE TO INSTRUCT PATIENT/CAREGIVER ON CARE AND MANAGEMENT OF SUPRAPUBIC CATHETER. SKILLED NURSE FOR SUPRAPUBIC CATHETER INSERTION/MAINTENANCE UTILIZING 22 FR 30CC CATHETER VIA STERILE TECHNIQUE, CHANGE ORDERED AND PRN FOR LEAKING OR MALFUNCTIONING. IRRIGATE SUPRAPUBIC CATHETER WITH 30-60CC NORMAL SALINE PRN BLOCKAGE/LEAKAGE, HEAVY SEDIMENT. 1 - 3 PRN LONG-TERM VISITS FOR CATHETER CHANGE(S) AND/OR TROUBLESHOOTING.] Goal Patient Goal - I WANT TO GO BACK TO WORK Goal Provider Goal - A PLAN OF CARE WILL BE ESTABLISHED THAT MEETS PATIENT'S LONG-TERM NEEDS AND INCLUDES PATIENT GOAL FOR HOME [...] BY THE END OF THE CERTIFICATION PERIOD Progress Notes Progress Notes <paragraph>[Visit Date: 2024 by JEANNETTE NAQVI]:</paragraph><paragraph>HIGH SCHOOL LEARNING SUPPORT TEACHER EVALUATION: JAKE IS AN 79 YEAR OLD MALE REFERRED TO [facility] FOLLOWING HOSPITALIZATION FOR BONE AND PROSTATE CANCER. PMH INCLUDES EPILEPSY,HYPERTENSION, SLEEP APNEA, HEART DISEASE, ANXIETY AND OSTEOARTHRITIS. HIGH SCHOOL LEARNING SUPPORT TEACHER FACILITATED COMMUNITY RESOURCE ASSESSMENT AND LTC PLANNING ASSESSMENT. ENVIRONMENT: JAKE LIVES IN A SINGLE FAMILY HOME ALONE. HIS DAUGHTER AND GRANDDAUGHTER LIVE CLOSE BY AND ARE INVOLVED AND SUPPORTIVE. JAKE DOES NEED HELP WITH HOMEMAKING AND TRANSPORTATION. HE DOES GET FOOD STAMPS AND FUEL ASSISTANCE. HE REPORTED TODAY HE WAS ALL OUT OF HIS OIL AND HAS NO MORE FUNDS FROM [employer]. HE HAS LIMITED INCOME AND NEEDS FURTHER ASSISTANCE. PRESENTATION: JAKE IS ALERT AND ORIENTED X4. JAKE WAS PLEASANT DURING VISIT. JAKE HAS HX OF ANXIETY BUT REPORTS HIS MOOD IS STABLE AND DOES NOT WANT ANY MENTAL HEALTH SERVICES AT THIS TIME. JAKE HAS NO CURRENT ETOH OR SUBSTANCE ABUSE ISSUES. INTERVENTION: JAKE NEEDED ASSISTANCE TODAY TO GET MORE OIL FOR HIS HOME. HIGH SCHOOL LEARNING SUPPORT TEACHER MADE MULTIPLE PHONE CALLS TO ATTEMPT TO GET OIL TODAY. FUEL ASSISTANCE ADVISED WE CALL [employer] FOR HELP. HIGH SCHOOL LEARNING SUPPORT TEACHER CALLED AND AN APPLICATION NEEDS TO BE FILLED OUT WITH SUPPORTING DOCUMENTS BEFORE HE CAN GET ANY HELP. HIGH SCHOOL LEARNING SUPPORT TEACHER JAME HIS GRANDDAUGHTER TO HELP GET DOCUMENTS NEEDED. HIGH SCHOOL LEARNING SUPPORT TEACHER WILL SEND OVER PAPERWORK TOMORROW AND HOPEFULLY GET HIM OIL BY THE WEEKEND. HIGH SCHOOL LEARNING SUPPORT TEACHER ALSO MADE A REFERRAL TO [facility] FOR HOMEMAKING SERVICES. HIGH SCHOOL LEARNING SUPPORT TEACHER ATTEMPTED TO REACH [place] FOR REFERRAL FOR ADDITIONAL HELP BUT NO ANSWER. HIGH SCHOOL LEARNING SUPPORT TEACHER WILL CALL AGAIN TOMORROW. HIGH SCHOOL LEARNING SUPPORT TEACHER ALSO PLANS TO COMPLETE [employer] APPLICATION WITH PATIENT. HIGH SCHOOL LEARNING SUPPORT TEACHER WILL FOLLOW UP 2 X FOR FURTHER RESOURCE SUPPORT.</paragraph> Encounters Start Date/Time End Date/Time Encounter Type Admission Type Attending Clinicians Care Facility Care Department Encounter ID Discharge Date Discharge Status Discharge Condition Discharge Reason Percent Goals Met 2024-11-25 00:00:00 2025-01-23 00:00:00 Outpatient NEW ADMISSION CLARISA JARQUIN [facility] [id number] 54.55
--- OUTSIDE RECORDS SUMMARY | 2024-12-22 14:07 | XMS_ITS | Encounter Summary ---
Author Organization [employer] Address [address] [place] [address] [address] [place] [address] Care Team Providers Care Unemployment Specialist Name Role Phone Elijah Johnson MD Primary Care Prov ider Reason for Visit * Reason Onset Date Comments new patient visit 08/11/2024 Encounter Details Date Type Department Care Team (Late st Contact Info) Description 08/11/2024 Telephone [facility] [address] [place] [address] Elijah Johnson MD [address] [place], [place] [phone] new patient visit Social History Tobacco Use [...] proper care and opted for pcp at [facility] . Apptmnt reminder and release form sent via mail . documented in this encounter Plan of Treatment Not on file documented as of this encounter Visit Diagnoses Not on filedocumented in this encounter Care Teams Unemployment Specialist Relationship Specialty Start Date End Date Elijah Johnson MD [address] [place] [phone] PCP - General Internal Medicine 08/30/24 documented as of this encounter
--- OUTSIDE RECORDS SUMMARY | 2024-12-22 14:07 | XMS_ITS | Clinical Summary ---
Author Organization [employer] Address [address] [facility] [address] [place] [address] Care Team Providers Care Supervisor Toy Assembly Name Role Phone Elijah Johnson MD Primary Care Prov ider Allergies Active Allergy Reactions Criticality Noted Date Comments Aspirin Hives 08/24/2024 Medications No known medications Active Problems Problem Noted Date Diagnosed Date Encounter for medical examination to establish c are 08/26/2024 Assessment & Plan (08/26/2024 1:50 PM EST): Last pcp followed 1 month ago, he is followed at [facility] Hospitalization - ER: [facility] 2 months ago due to hematuria s/p wright catheter Pmhx: HTN, prostate cancer Pshx: appendix 2000 All- Meds: lisinopril 20mg, [id number] Prostate cancer 08/26/2024 Assessment & Plan (08/26/2024 1:54 PM EST): Patient seen at [facility], he currently has a wright catether, wants second opinion, will refer to urology Primary hypertension 08/26/2024 Assessment & Plan (08/26/2024 1:57 PM EST): On lisinopril 20mg, continue low sodium diet, and exercise as tolerated, keep bp log, follow up in 1-2 months Encounters Date Type Department Care Team Description 10/11/2024 Telephone [facility]EDS [address] [place] [address] Elijah Johnson MD 10/07/2024 Telephone [facility] MED [facility] PEDS [address] [place] [address] Elijah Johnson MD 10/04/2024 Telephone [facility] PEDS [address] [place] [address] Elijah Johnson MD No Show from Last [...] this topic Insurance [employer] PPO Care Teams Supervisor Toy Assembly Relationship Specialty Start Date End Date Elijah Johnson MD [address] [place] [id number] PCP - General Internal Medicine 08/30/24
--- OUTSIDE RECORDS SUMMARY | 2024-12-22 14:07 | XMS_ITS | Clinical Summary ---
Author Organization Unknown Care Team Providers Care Piano Teacher Name Role Phone BHUMIKA MURRAY, SUZY Unavailable Unavailable JESSICA RN, MG Unavailable Unavailable BRITTON RN, CLARISA Unavailable Unavailable Payers Payer Name Policy Type Policy Number Effective Date Expira tion Date [facility] CCN OPTUM PROGRAM - PDGM Problems Condition Name Condition Details Condition Category Status Onset Date Resolution Date Last Treatment Date Treating Clinician Comments SECONDARY MALIGNANT NEOPLASM OF BONE Active 09-21 00:00: 00 MALIGNANT NEOPLASM OF PROSTATE Active 09-21 00:00: 00 EPILEPSY, UNSP, NOT INTRACTABLE, WITHOUT STATUS EPILEPTICUS Active 09-21 00:00: 00 ESSENTIAL (PRIMARY) HYPERTENSION Active 09-21 00:00: 00 ATHSCL HEART DISEASE OF [place] CORONARY ARTERY W/O ANG PCTRS Active 09-21 [...] 11-21 00:00: 00 11-25 00:00 :00 No [id number] Per instruc tions Per instructio ns (route: oral) Med Classific ation: Analgesic , Anti-infl ammatory or Antipyret ic morphine ER 15 mg tablet,exte nded release - 00:00: 00 12-09 23:59 :00 No [id number] Per instruc tions EVERY 12 HOURS Per instructio ns EVERY 12 HOURS (route: oral) Med Classific ation: Analgesic , Anti-infl ammatory or Antipyret ic acetaminoph en 500 mg tablet 11-25 00:00: 00 Yes [id number] 2 tablet 3 TIMES DAILY 2 tablet 3 TIMES DAILY (route: oral) Med Classific ation: Analgesic , Anti-infl ammatory or Antipyret ic cyanocobala min (vitamin B-12) 2,500 mcg tablet 11-25 00:00: 00 Yes [id number] 1 tablet DAILY 1 tablet DAILY (route: oral) Med Classific ation: Electroly te Balance-N utritiona l Products docusate sodium 100 mg capsule 11-25 00:00: 00 Yes [id number] 1 capsule DAILY 1 capsule DAILY (route: oral) Med Classific ation: Gastroint estinal Therapy Agents lisinopril 20 mg tablet 11-25 00:00: 00 Yes [id number] 1 tablet DAILY 1 tablet DAILY (route: oral) Med Classific ation: Cardiovas cular Therapy Agents methenamine hippurate 1 gram tablet 11-25 00:00: 00 12-13 23:59 :00 No [id number] 1 tablet DAILY 1 tablet DAILY (route: oral) Med Classific ation: Genitouri nary Therapy oxycodone 5 mg tablet 11-25 00:00: 00 Yes [id number] 1 tablet EVERY 8 HOURS 1 tablet EVERY 8 HOURS (route: oral) Med Classific ation: Analgesic , Anti-infl ammatory or Antipyret ic senna 8.6 mg tablet 11-25 00:00: 00 Yes [id number] 2 tablet BEDTIME 2 tablet BEDTIME (route: oral) Med Classific ation: Gastroint estinal Therapy Agents Vitamin C 500 mg tablet 11-25 00:00: 00 Yes [id number] 2 tablet DAILY 2 tablet DAILY (route: oral) Med Classific ation: Electroly te Balance-N utritiona l Products Vitamin D3 50 mcg (2,000 unit) tablet 11-25 00:00: 00 Yes [id number] 1 tablet DAILY 1 tablet DAILY (route: oral) Med Classific ation: Electroly te Balance-N utritiona l Products morphine ER 30 mg tablet,exte nded release 12-09 00:00: 00 Yes [id number] 1 tablet EVERY 12 HOURS 1 tablet EVERY 12 HOURS (route: oral) Med Classific ation: Analgesic , Anti-infl ammatory or Antipyret ic methenamine mandelate 1 gram tablet 12-13 00:00: 00 Yes [id number] 1 tablet DAILY 1 tablet DAILY (route: [...] BLOCKAGE/LEAKAGE, HEAVY SEDIMENT. 1 - 3 PRN SENIOR CARE VISITS FOR CATHETER CHANGE(S) AND/OR TROUBLESHOOTING. [code [...] BLOCKAGE/LEAKAGE, HEAVY SEDIMENT. 1 - 3 PRN SENIOR CARE VISITS FOR CATHETER CHANGE(S) AND/OR TROUBLESHOOTING.] Future [...] MAINTAIN SITUATIONAL AWARENESS AND WILL NOTIFY CLINICAL AUTOMOBILE SALES CONSULTANT AND PHYSICIAN/PROVIDER WITH ANY CHANGE IN CONDITION. [code = SKILLED NURSE TO PERFORM ENVIRONMENTAL SAFETY RISK ASSESSMENT AND FALL RISK ASSESSMENT AND PROVIDE INSTRUCTION TO IMPLEMENT ENVIRONMENTAL SAFETY AND FALL PREVENTION STRATEGIES THROUGHOUT THE CERTIFICATION PERIOD. SKILLED NURSE WILL MAINTAIN SITUATIONAL AWARENESS AND WILL NOTIFY CLINICAL AUTOMOBILE SALES CONSULTANT AND PHYSICIAN/PROVIDER WITH ANY CHANGE IN CONDITION.] [...] BLOCKAGE/LEAKAGE, HEAVY SEDIMENT. 1 - 3 PRN SENIOR CARE VISITS FOR CATHETER CHANGE(S) AND/OR TROUBLESHOOTING. [code = SKILLED NURSE TO INSTRUCT PATIENT/CAREGIVER ON CARE AND MANAGEMENT OF SUPRAPUBIC CATHETER. SKILLED NURSE FOR SUPRAPUBIC CATHETER INSERTION/MAINTENANCE UTILIZING 22 FR 30CC CATHETER VIA STERILE TECHNIQUE, CHANGE ORDERED AND PRN FOR LEAKING OR MALFUNCTIONING. IRRIGATE SUPRAPUBIC CATHETER WITH 30-60CC NORMAL SALINE PRN BLOCKAGE/LEAKAGE, HEAVY SEDIMENT. 1 - 3 PRN SENIOR CARE VISITS FOR CATHETER CHANGE(S) AND/OR TROUBLESHOOTING.] Goal Patient Goal - I WANT TO GO BACK TO WORK Goal Provider Goal - A PLAN OF CARE WILL BE ESTABLISHED THAT MEETS PATIENT'S SENIOR CARE NEEDS AND INCLUDES PATIENT GOAL FOR HOME [...] Progress Notes <paragraph>[Visit Date: 2024 by JEANNETTE NAQVI]:</paragraph><paragraph>IP PARALEGAL EVALUATION: JAKE IS AN 79 YEAR OLD MALE REFERRED TO [facility] FOLLOWING HOSPITALIZATION FOR BONE AND PROSTATE CANCER. PMH INCLUDES EPILEPSY,HYPERTENSION, SLEEP APNEA, HEART DISEASE, ANXIETY AND OSTEOARTHRITIS. IP PARALEGAL FACILITATED COMMUNITY RESOURCE ASSESSMENT AND LTC PLANNING [...] TO GET MORE OIL FOR HIS HOME. IP PARALEGAL MADE MULTIPLE PHONE CALLS TO ATTEMPT TO GET OIL TODAY. FUEL ASSISTANCE ADVISED WE CALL [employer] FOR HELP. IP PARALEGAL CALLED AND AN APPLICATION NEEDS TO BE FILLED OUT WITH SUPPORTING DOCUMENTS BEFORE HE CAN GET ANY HELP. IP PARALEGAL JAME HIS GRANDDAUGHTER TO HELP GET DOCUMENTS NEEDED. IP PARALEGAL WILL SEND OVER PAPERWORK TOMORROW AND HOPEFULLY GET HIM OIL BY THE WEEKEND. IP PARALEGAL ALSO MADE A REFERRAL TO [facility] FOR HOMEMAKING SERVICES. IP PARALEGAL ATTEMPTED TO REACH [place] FOR REFERRAL FOR ADDITIONAL HELP BUT NO ANSWER. IP PARALEGAL WILL CALL AGAIN TOMORROW. IP PARALEGAL ALSO PLANS TO COMPLETE [employer] APPLICATION WITH PATIENT. IP PARALEGAL WILL FOLLOW UP 2 X FOR FURTHER RESOURCE SUPPORT.</paragraph> Encounters Start Date/Time End Date/Time Encounter Type Admission Type Attending Clinicians Care Facility Care Department Encounter ID Discharge Date Discharge Status Discharge Condition Discharge Reason Percent Goals Met 2024-11-25 00:00:00 2025-01-23 00:00:00 Outpatient NEW ADMISSION CLARISA JARQUIN [facility] [id number] 54.55
--- OUTSIDE RECORDS SUMMARY | 2024-12-22 14:07 | XMS_ITS ---
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 Organization [employer] Address [address] [place] [address] Care Team Providers Care Drawing Checker Name Role Phone ROWENA ROY Primary Care [...] to Policy Segal [facility] MEDICARE ADVANTAGE [place] INDIV IDUAL - [place] Sep 21, 2023 [id number] [phone] GENET DUGAN S [facility] MEDICARE ADVANTAGE [facility] ([facility] Sep 21, 2023 [id number] [phone] MARVIN DUGANI S PATIENT [place] MEDICAID [place] PLAN May 22, 2022 MEDICAI D [id number] GENET DUGAN S PATIENT MEDICARE ([facility]) MEDICARE (M) PART B May 22, 2022 PART B [id number] [phone] MARVIN DUGANI S PATIENT MEDICARE ([facility]) MEDICARE (M) PART A Feb 19, 2009 PART A [id number] [phone] DUGAN,GENET S PATIENT MEDICARE PART D (WNR) MEDICARE (M) PART D Jul 22, 2022 PART D [id number] GENET DUGAN PATIENT [facility] (WNR) MEDICARE ADVANTAGE [facility] (WNR) Sep 21, 2022 [id number] [phone] GENET DUGAN PATIENT [facility] (WNR) MEDICARE [facility] (WNR) Sep 21, 2022 [id number] GENET DUGAN PATIENT Selected Encounter This section includes the information on record at [place] for the Encounter. Date/Time Encounter Type Encounter Description Reason Pro vider Source Dec 22, 2024 12:57 PM Outpatient Encounter ADMIN PAT ACTIVTIES (MASNONCT) [...] Appointment Type Appointme nt Facility Name Dec 30, 2024 10:30 AM AMBULATORY - MEDICINE [facility] Jan 02, 2025 10:00 AM AMBULATORY - MEDICINE [facility] February 01, 2025 11:00 AM AMBULATORY - NONE [facility] Apr 20, 2025 02:30 PM AMBULATORY - MEDICINE [facility] Active, Pending, and Scheduled Orders This section includes a listing of several types of active, pending, and scheduled orders, including clinic medications orders, diagnostic test orders, procedure orders and consult orders; where the start date of the order is 45 days before the date of the Encounter or 45 days after the date of theEncounter. The data comes from all [facility]. Test Date/Time Test Type Test Details Facility Name Nov 10, 2024 10:29 AM Consult Order COMMUNITY CARE-RADIATION ONCOLOGY [facility] [place] Nov 24, 2024 02:21 PM Consult Order COMM[facility]ITY [facility] SKILLED HOME CARE [facility] Dec 13, 2024 12:00 AM Laboratory - Chemi stry Order BASIC METABOLIC PANEL (non-fasting) BLOOD (SST-SERUM) [facility] Dec 13, 2024 12:00 AM Laboratory - Chemi stry Order LIPID PANEL, NON FASTING BLOOD (SST-SERUM) [facility] Dec 13, 2024 12:00 AM Laboratory - Chemi stry Order LIVER FUNCTION BLOOD (SST-SERUM) [facility] Dec 13, 2024 12:00 AM Laboratory - Chemi stry Order CBC AND DIFF (AUTO) BLOOD (LAV-BLOOD) [facility] Dec 13, 2024 12:00 AM Laboratory - Chemi stry Order HEMOGLOBIN A1C PANEL BLOOD (LAV-BLOOD) [facility] Dec 13, 2024 12:00 AM Laboratory - Chemi stry Order TSH BLOOD (SST-SERUM) [facility] Dec 13, 2024 01:51 PM Consult Order TELE-EYE S CREENING CONSULT/SPOPC (OUTPT) [facility] Dec 22, 2024 01:10 PM Consult Order SOCIAL WOR K/SPOPC OUTPT [facility] Advance Directives: All historical and current [...] Date/Time Encounter Note(s) Provider Source Dec 22, 2024 12:57 PM ADMINISTRATIVE NOTE: LOCAL TITLE: CCC: SCHEDULING ADMINISTRATION STANDARD TITLE: ADMINISTRATIVE NOTE DATE OF NOTE: DEC 22, 2024@12:57:31 ENTRY DATE: DEC 22, 2024@12:57:31 AUTHOR: MERARY NETTLES EXP COSIGNER: URGENCY: STATUS: COMPLETED CCC: SCHEDULING ADMINISTRATION Has ADDENDA Caller Verification Current Location: [facility] Call Back Number: [phone] Emergency Contact: PARENTS DUGAN Emergency Contact Caller/Recipient Relation to Patient: Other If Other Describe Relation to Patient: Home Health Nurse Caller Name: Pamela Nurse Administrative Administrative Note Reason: Home Health / Longterm Administrative Note Comments: Pamela Nurse from [facility] is calling to let PCP know she tried to see Pt today , but she could not get in touch with the Pt. IMPORTANT: This note was created by [facility] Clinical Contact Center staff. Please do not alert the staff member by adding them as a signer for future communications. Alerts are not monitored by this user. /mariana/ MERARY NETTLES VISN [facility] Signed: 12/22/2024 12:57 Receipt Acknowledged By: 12/22/2024 13:36 /viky LOPEZ REGISTERED NURSE * AWAITING SIGNATURE * TAMMIE DIAZ 12/22/2024 ADDENDUM STATUS: COMPLETED Noted. Telephone call to to check-in and follow up on missed [facility] visit. No answer, voicemail message left for to return call to his [facility] RN or clinic. /viky LOPEZ REGISTERED NURSE Signed: 12/22/2024 13:51 MERARY NETTLES [place] [facility]
--- OUTSIDE RECORDS SUMMARY | 2024-12-22 14:07 | XMS_ITS ---
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 [place] Organization [facility] [place] [facility] [place] Address [address] [place] [id number] Care Team Providers Care Welt Drawer Name Role Phone ROWENA ROY Primary Care [...] Segal's Name Patient's Relationship to Policy Segal [facility]) MEDICARE ADVANTAGE [place] INDIV IDUAL - [place] Sep 21, 2023 [id number] [phone] [facility]UGAN S [facility] MEDICARE ADVANTAGE [facility] ([facility]) Sep 21, 2023 [id number] [phone] MARVIN DUGANI S PATIENT HUSKY MEDICAID HUSKY PLAN May 22, 2022 MEDICAI D [id number] GENET DUGAN S PATIENT MEDICARE ([facility]) MEDICARE (M) PART B May 22, 2022 PART B [id number] MARVIN DUGANI S PATIENT MEDICARE ([facility]) MEDICARE (M) PART A Feb 19, 2009 PART A [id number] DUGAN,GENET S PATIENT MEDICARE PART D (WNR) MEDICARE (M) PART D Jul 22, 2022 PART D [id number] GENET DUGAN PATIENT [facility] (WNR) MEDICARE ADVANTAGE [facility] (WNR) Sep 21, 2022 [id number] [phone] GENET DUGAN PATIENT [facility] (WNR) MEDICARE [facility] (WNR) Sep 21, 2022 [id number] GENET DUGAN PATIENT Selected Encounter This section includes the information on record at [place] for the Encounter. Date/Time Encounter Type Encounter Description Reason Pro vider Source Dec 22, 2024 10:29 AM Outpatient Encounter ADMIN PAT ACTIVTIES (MASNONCT) [...] 30, 2024 10:30 AM AMBULATORY - MEDICINE [facility] Jan 02, 2025 10:00 AM AMBULATORY - MEDICINE [facility] February 01, 2025 11:00 AM AMBULATORY - NONE [facility] Apr 20, 2025 02:30 PM AMBULATORY - MEDICINE [facility] Active, [...] The data comes from all [place] treatment [facility]. Test Date/Time Test Type Test Details Facility Name Nov 10, 2024 10:29 AM Consult Order COMMUNITY CARE-RADIATION ONCOLOGY [facility] [place] Nov 24, 2024 02:21 PM Consult Order COMMUNITY [facility] SKILLED HOME CARE Cons [facility] Consultant's [facility] Dec 13, 2024 12:00 AM Laboratory - Chemi stry Order BASIC METABOLIC PANEL (non-fasting) BLOOD (SST-SERUM) [facility] Dec 13, 2024 12:00 AM Laboratory - Chemi stry Order LIPID PANEL, NON FASTING BLOOD (SST-SERUM) [facility] Dec 13, 2024 12:00 AM Laboratory - Chemi stry Order LIVER FUNCTION BLOOD (SST-SERUM) [facility] Dec 13, 2024 12:00 AM Laboratory - Chemi stry Order CBC AND DIFF (AUTO) BLOOD (LAV-BLOOD) [facility] Dec 13, 2024 12:00 AM Laboratory - Chemi stry Order HEMOGLOBIN A1C PANEL BLOOD (LAV-BLOOD) [facility] Dec 13, 2024 12:00 AM Laboratory - Chemi stry Order TSH BLOOD (SST-SERUM) [facility] Dec 13, 2024 01:51 PM Consult Order TELE-EYE S CREENING CONSULT/SPOPC (OUTPT) [facility]'s [facility] Dec 22, 2024 01:10 PM Consult Order SOCIAL WOR K/SPOPC OUTPT [facility] Consultant's [facility] Advance Directives: All historical and current Section [...] Encounter Note(s) Provider Source Dec 22, 2024 10:29 AM ADMINISTRATIVE NOTE: LOCAL TITLE: CCC: SCHEDULING ADMINISTRATION STANDARD TITLE: ADMINISTRATIVE NOTE DATE OF NOTE: DEC 22, 2024@10:29:57 ENTRY DATE: DEC 22, 2024@10:29:57 AUTHOR: TAMMIE CARNEY COSIGNER: URGENCY: STATUS: COMPLETED CCC: SCHEDULING ADMINISTRATION Has ADDENDA Caller Verification Emergency Contact: PARENTS DUGAN Emergency Contact Caller/Recipient Relation to Patient: Other If Other Describe Relation to Patient: Elara caring Caller Name: Felicia Administrative Administrative Note Reason: Home Health / Long Term Administrative Note Comments: Felicia from [employer] calling. She is requesting PACT put an order in for to have a [facility] social security assessor. States has a lot of needs and could benefit from having one. This hand sign writer sees social security assessor listed and Felicia is requesting social security assessor reach out to her and . She can be reached at [phone]. Please advise. IMPORTANT: This note was created by [facility] staff. Please do not alert the staff member by adding them as a signer for future communications. Alerts are not monitored by this user. /mariana/ TAMMIE CARNEY [id number] AMSA Signed: 12/22/2024 10:29 Receipt Acknowledged By: 12/22/2024 11:25 /viky LOPEZ REGISTERED NURSE * AWAITING SIGNATURE * DARWIN MOSS 12/22/2024 ADDENDUM STATUS: COMPLETED Consult for social work placed, held for provider review and signature if appropriate. /viky LOPEZ REGISTERED NURSE Signed: 12/22/2024 11:25 TAMMIE CARNEY [place] [facility]
[2024-12-22] MEDS: polyethylene glycoL 3350 17 GM POWD.PACK PO (15:01)
[2024-12-22 16:23] VITALS: BP 132/65; PULSE 66; RESP 16; TEMP 36.9; O2SAT 97
== END 2024-12-22 16:24 | disposition home or self-care (01) ==
PROVIDERS: Emergency Provider Emergency Medicine; PCP Internal Medicine
DX: E86.0 Dehydration (principal); N39.0 Urinary tract infection, site not specified; B95.2 Enterococcus as the cause of diseases classified elsewhere; R11.0 Nausea
CPT/HCPCS: 36415; 80048; 80076; 81001; 83690; 84484; 85025; 87086; 87088; 87186; 96361; 96374; 96375; 99284; J2405

== ENCOUNTER → 2025-01-18 10:56 | Outpatient (BNVA) | payer OTHER, SELFPAY | PROVIDERS: PCP Internal Medicine | DX: Z43.5 Encounter for attention to cystostomy (principal); C61 Malignant neoplasm of prostate; C79.51 Secondary malignant neoplasm of bone | CPT/HCPCS: 51705 ==

== ENCOUNTER 2025-03-05 15:34 | Outpatient (REF) | payer OTHER, SELFPAY ==
[2025-03-05 17:46] LABS: Appearance Urine Turbid; Color Urine Orange; Glucose Urine UA Negative (Negative); Leukocyte Esterase Urine Moderate (2+) (Negative); Nitrite Urine Negative (Negative); PH 8.5 (5.0-9.0); UMIC TRIGGER UA YES; Urine Blood Large (3+) (Negative); Urine Ketones 15 mg/dL (Negative); Urine Protein 300 (3+) mg/dL (Neg-Trace)
[2025-03-05 18:00] LABS: Bacteria Urine 4+ (None Seen); Hyaline Casts Urine 0-2 /LPF (0-2); RBC Urine >20 /HPF (0-2); Squamous Epithelial Cell Urine 0-2 /HPF (0-2); WBC Urine >50 /HPF (0-5)
== END 2025-03-05 15:35 | disposition home or self-care (01) ==
LOC: HO.HVNA 15:34
PROVIDERS: Visit Provider Internal Medicine
DX: Z13.89 Encounter for screening for other disorder (principal)
CPT/HCPCS: 81001; 81003; 87086; 87088; 87186

== ENCOUNTER 2025-03-06 02:38 | Inpatient (IN) | payer OTHER, SELFPAY ==
[2025-03-06] VITALS (11 sets, daily range): BP systolic 116–141; BP diastolic 47–64; PULSE 73–104; RESP 12–22; TEMP 36.6–36.8; O2SAT 95–100; BMI 25.1
--- NOTE | 2025-03-06 03:27 | PC.NURSE ---
Upon arrival to ED patient noted to be calm, cooperative, following commands, no s/s of anxiety, agitation. VSS. Patient positioned to comfort, warm blanket provided. Patient currently resting on stretcher bed with his eye closed, RR 18, even chest wall rise and fall noted. Call meyers in patient's reach, patient's daughter at bedside.
--- NOTE | 2025-03-06 03:35 | ED_ITS ---
HPI - General Adult General Chief complaint: Altered Mental Status Stated complaint: Hospice Pt. increased confusion/ agitation Time Seen by Provider: 03/06/25 03:35 History of Present Illness ED Provider: Ingrid NASH narrative: The patient is an 79-year-old male with a history of metastatic prostate cancer. He also has a chronic suprapubic urinary catheter. He was placed on hospice several weeks ago. Over the last few days he has become increasingly agitated and less coherent. His family has had increasing difficulty managing his symptoms with the hospice medications at home. Tonight was particularly bad and they made several calls to the hospice nurse and gave increasing amounts of morphine and haloperidol. Ultimately the family did not seem able to control his symptoms and so the hospice nurse recommended that the patient come to the hospital for management of his symptoms. The patient was initially taken to [facility] by paramedics despite the family requesting the patient be brought to [facility]. At [facility] Emergency room they spoke to the [facility] Hospice who felt the patient should be at this hospital for admission for [facility] hospice care and the patient was transferred here by ambulance. On arrival here the patient was calmer, it seemed as though the medications had finally taken effect. Related Data Home Medications ?Medication ?Instructions ?Recorded ?Confirmed cyanocobalamin (vitamin B-12) 100 100 mcg PO DAILY 11/21/24 11/21/24 mcg tablet (Vitamin B-12) sennosides 8.6 mg tablet (senna) 8.6 mg PO BEDTIME PRN Constipation 11/21/2412/13 atropine 1 % eye drops 2 drp sublingual Q4H PRN N/A 03/06/25 haloperidol lactate 2 mg/mL oral mg 03/06/25 concentrate lorazepam 0.5 mg tablet 0.5 mg PO Q4H PRN dyspnea 03/06/25 morphine concentrate 100 mg/5 mL 5 mg PO Q1H PRN dyspnea 03/06/25 (20 mg/mL) oral solution ondansetron 4 mg disintegrating 4 mg PO Q6H PRN nausea and vomiting 03/06/25 tablet Previous Rx's ?Medication ?Instructions ?Recorded ascorbic acid (vitamin C) 1,000 mg 1 g PO DAILY 90 days #90 tabs 09/07/24 tablet methenamine mandelate 1 gram tablet 1 g PO ONCE 90 days #90 tabs 12/02/24 oxycodone 5 mg tablet 5 mg PO Q8H PRN Severe Pain (Scale 01/11/25 Score 7-10) #30 tabs morphine 30 mg tablet,extended 30 mg PO Q12H 30 days #60 tabs 01/12/25 release food supplemt, lactose-reduced 1 ea PO BID #60 mL 01/19/25 0.05 gram-1.5 kcal/mL oral liquid (Ensure Plus) Allergies Allergy/AdvReac Type Severity Reaction Status Date / Time aspirin [ASPIRIN] Allergy Unknown UNKNOWN Verified 03/06/25 02:55 Review of Systems Review of Systems: Yes Unobtainable due to mental status [facility] Past Medical History Medical History Prostate cancer Seizures Chronic retention of urine Abnormal prostate specific antigen Dysuria Nodular prostate Gross hematuria Hypertension Surgical History History of bladder surgery History of prostate biopsy Social History Social History Household Members: None Housing: Apartment Are you a primary client care consultant to a significant other at home: No Do you presently have visiting nurse or other home services: No Alcohol intake: former Patient Tobacco Use Status: Former Tobacco user Tobacco use type: Cigarette Advance Directives: Yes Advance Directives on File: Yes Advance Directives Date on File: 10/25/24 Do you have a plan to hurt others: No Plan service: No Current occupational status: unemployed and retired Current occupation: right handed Physical Exam ED Vital Signs: Vital Signs - 24 hr 03/06/25 02:51 03/06/25 02:57 03/06/25 04:31 Temperature 98.0 F 98.0 F Pulse Rate 100 104 H Respiratory Rate 15 16 15 Blood Pressure 124/64 126/61 Pulse Oximetry 97 98 Oxygen Delivery Method Nasal Cannula Nasal Cannula Oxygen Flow Rate 03/06/25 06:53 Temperature 98 F Pulse Rate 87 Respiratory Rate 12 Blood Pressure 116/59 L Pulse Oximetry 99 Oxygen Delivery Method Nasal Cannula Oxygen Flow Rate 2 BMI result Body Mass Index 25.1 Const Other: The patient is an 79-year-old male who looks quite chronically ill and who seemed sedated. He was minimally responsive to verbal stimuli. He moaned to tactile stimuli. He did not seem in acute pain or respiratory distress. He seemed sedated. HENMT Other: Face is symmetrical. Mucous membranes not obviously dry. Eyes General: appearance normal, both eyes and all related structures Neck Neck: Yes full ROM and Yes no JVD Resp Effort & Inspection: normal respiratory effort Auscultation: clear to auscultation bilaterally Cardio Rate: regular rate Rhythm: regular rhythm Heart sounds: S1 normal heart sound present and S2 normal heart sound present GI Other: The patient has a suprapubic catheter in the suprapubic region of the abdomen. At fist he did not seem to have significant abdominal tenderness but later he seemed uncomfortable and seemed to have suprapubic fullness. A bedside ultrasound indicated a full bladder. Skin Other: Skin is pale and dry. Neuro Other: The patient seemed sedated. He seemed to have symmetrical tone in his extremities. Extrem Other: No peripheral edema Medications Administered Discontinued Medications Generic Name Dose Route Start Last Admin Trade Name Freq PRN Reason Stop Dose Admin Morphine Sulfate 4 mg 03/06/25 04:24 03/06/25 04:31 Morphine Sulfate 4 Mg/Ml Cartridge IVPUSH 03/06/25 04:25 4 mg ONCE ONE Administration Protocol Medical Decision Making Medical Decision Making [facility] Narrative: The patient is an 79-year-old male with a history of metastatic prostate cancer who has been on hospice for a few weeks. His family has had a great deal of difficulty controlling his symptoms of pain and agitation over the last week and he has become less coherent. The patient received a lot of additional sedative medication this evening with morphine and haloperidol. Ultimately the hospice nursing team felt the patient would need to be hospitalized for symptom control. The patient was first taken to [facility] but was then transferred here at the request of the hospice team. By the time the patient got here the patient was considerably calmer, apparently the additional medications he had received at home seemed to have kicked in. The patient here was initially calm but at 1 point became quite agitated. I performed a bedside ultrasound. This showed a full bladder around the balloon of his urinary catheter. We then drained his bladder through the catheter and he seemed to feel much more comfortable. Otherwise the patient seems stable. I discussed the case with the on-call hospice nurse who felt that the patient's has been sufficiently difficult to manage at home that hospitalization on [facility] hospice today is reasonable. Discharge Plan Discharge Clinical Impression: Prostate cancer metastatic to multiple sites, Hospice care Patient Disposition: Admitted As Inpatient
[2025-03-06] MEDS: Morphine Sulfate 4 MG/ML CARTRIDGE IVPUSH ×3 (04:31→22:57)
--- NOTE | 2025-03-06 07:00 | PM.IMHP ---
History of Present Illness Date of Service: 03/06/25 Attending physician on admission: Josue Bull Chief Complaint: agitation Patient is an 79-year-old male with a past medical history significant for metastatic prostate cancer on hospice, seizure disorder and hypertension, who presented to the ED for [facility] hospice with increased agitation and altered mental status. 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 Tobacco Use Status: Former Tobacco user Tobacco use type: Cigarette Advance Directives Date on File: 10/25/24 service: Yes Current occupational status: unemployed and retired Current occupation: right handed Meds Allergies Allergy/AdvReac Type Severity Reaction Status Date / Time aspirin (ASPIRIN) Allergy Unknown UNKNOWN Verified 03/06/25 02:55 Active Medications: Current Medications Diazepam (Diazepam 10 Mg/2 Ml Cartridge) 5 mg IVPUSH Q4H PRN PRN Reason: anxiety/restlessness Lorazepam (Lorazepam 1 Mg Tablet) 2 mg SUBLINGUAL Q4H PRN PRN Reason: anxiety/restlessness Morphine Sulfate (Morphine Sulfate 4 Mg/Ml Cartridge) 4 mg IVPUSH Q4H PRN PRN Reason: Discomfort/Shortness of breath Ondansetron HCl (Ondansetron Hcl 4 Mg/2 Ml Vial) 4 mg IVPUSH Q8H PRN PRN Reason: Nausea and Vomiting Home Medications ?Medication ?Instructions ?Recorded ?Confirmed ?Last Taken ?Type atropine 1 % eye drops 2 drp sublingual Q4H PRN Gurgling 03/06/25 03/06/25 03/05/25 History throat haloperidol lactate 2 mg/mL oral 1 mg PO Q1H PRN Agitation 0603/06/25 03/05/25 History concentrate 1 ML lorazepam 0.5 mg tablet 0.5 mg PO Q4H PRN Agitation 03/06/25 03/06/25 03/05/25 History morphine 30 mg tablet,extended 30 mg PO Q12H PRN Pain 03/06/25 03/06/25 03/05/25 History release morphine concentrate 100 mg/5 mL 5 mg PO Q1H PRN Pain 03/06/25 03/06/25 03/05/25 History (20 mg/mL) oral solution ondansetron 4 mg disintegrating 4 mg PO Q6H PRN nausea and vomiting 03/06/25 03/06/25 02/24/25 History tablet polyethylene glycol 3350 17 17 g PO BID PRN Constipation 03/06/25 03/06/25 Unknown History gram/dose oral powder (Miralax) Physical Exam Vital Signs and Narrative: Vital Signs: Last Vital Signs Temp 98 F 03/06/25 06:53 Pulse 87 03/06/25 06:53 Resp 12 03/06/25 06:53 BP 116/59 L 03/06/25 06:53 Pulse Ox 99 03/06/25 06:53 O2 Del Method Nasal Cannula 03/06/25 06:53 O2 Flow Rate 2 03/06/25 06:53 BMI result Body Mass Index 25.1 General: alert but not oriented to person, place or time, no acute distress Resp: diminished throughout CVS: S1, S2, RRR GI: +BS, NT, no distention Skin: Warm, dry Neuro: Cranial nerves II-XII grossly intact bilaterally. Motor grossly intact bilaterally Extremities: No LE edema Psych: Confused Assessment and Plan (1) Prostate cancer metastatic to bone: Status: Resolved (2) Prostate cancer metastatic to intrapelvic lymph node: Status: Resolved Plan Patient is an 79-year-old male with a past medical history significant for metastatic prostate cancer on hospice, seizure disorder and hypertension, who presented to the ED for [facility] hospice with increased agitation and altered mental status. Metastatic prostate cancer - IV morphine and SL ativan - [facility] hospice consult seizure disorder - no home meds HTN - no home meds PROC TECH-- called pt's daughter who confirmed Patient with metastatic prostate cancer with increased agitation and altered mental status, requiring admission for [facility] hospice. Quality Stroke Does the patient have a stroke diagnosis?: No VTE Prior VTE?: No VTE Risk Level:: Medical - moderate - high VTE Device Contraindication: Treatment Not Indicated VTE Drug Contraindication: Treatment Not Indicated
--- NOTE | 2025-03-06 09:29 | PC.NURSE ---
assumed care of patient at 0700, patient is awake and alert, oriented to self and place. patient changed into hospital attire, new blankets and pads. patient boosted and repositioned in bed. patient noted to have suprapubic cath in place, draining bloody urine with some clotting, bag emptied see I/O charting. patient skin is noted to be dry and intact. VSS.
--- NOTE | 2025-03-06 10:09 | PHA.MEDREC ---
Addendum entered by Spenser Rea RPh 03/06/25 11:04: MED REC REVIEWED BY [facility] Original Note: Pharmacy Consult ? Medication Reconciliation Pharmacy has completed the medication reconciliation. Spoke with pt, pt poor historian and confused at baseline when I spoke with him. Pt nurse showed me pt had a notebook left by family that had what the pt has been taking the last few days for meds. I called pt daughter (Kervin) and she was able to confirm the pt medications and the last time he took them; confirming her dad is still taking both the Morphine 30mg tabs 1 q12h prn for pain and Morphine concentrate 100mg/5mL 1 q1h prn pain, confirming her dads Haloperidol 2mg/mL taking 1/2mL q1h prn for agitation and confirmed she gave her dad 1ml last night due to him being more agitated then normal and that her dad also has Lorazepam 0.5mg tabs at home he uses as needed for agitation and he last took that 03/04. Pt daughter also confirmed her dad uses the Atropine 1% drops as needed if he has any gurgling heard from his throat.
--- NOTE | 2025-03-06 11:05 | PC.NURSE ---
patient increasingly agitated, but redirectable. patient removing clothes and supplemental oxygen. patient compliant with getting redressed and putting o2 back on. patient states he wanted to call his daughter, patient assisted with telephone to make phone call.
[2025-03-06] MEDS: LORazepam 1 MG TABLET 2 MG SUBLINGUAL (11:07)
[2025-03-06] MEDS: diazePAM 10 MG/2 ML CARTRIDGE 5 MG IVPUSH ×3 (11:56→22:20)
--- NOTE | 2025-03-06 12:01 | PC.NURSE ---
patient remains increasingly agitated, removing clothing and oxygen, resistant to care/swatting at staff. patient family at bedside, medicated per NOV.
--- NOTE | 2025-03-06 13:39 | MHC.CM.PN ---
[facility], family to get back to me on the name. He is cared for by family and Hospice from [facility]. He came in due to agitated behavior at home that family could not manage. DCP: GIP hospice here or home and resume hospice there. CM to follow for DC needs.
--- NOTE | 2025-03-06 14:06 | P.EN_ITS ---
Event Note Date of Service: 03/06/25 Event Note: Patient is an 79-year-old male with a past medical history significant for metastatic prostate cancer on hospice, seizure disorder and hypertension, who presented to the ED for the IP hospice with increased agitation and altered mental status. 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 Time Spent With Patient Time: Total time managing care of this patient today ____ minutes.
--- NOTE | 2025-03-06 14:13 | PC.NURSE ---
patient family requested patient to be placed on stool softener, inpatient provider notified
[2025-03-06] MEDS: bisacodyL 10 MG SUPP.RECT PR (20:33)
[2025-03-07] MEDS: diazePAM 10 MG/2 ML CARTRIDGE 5 MG IVPUSH ×5 (00:46→21:07)
[2025-03-07] MEDS: LORazepam 1 MG TABLET 2 MG SUBLINGUAL ×2 (03:15→22:22)
[2025-03-07] MEDS: Morphine Sulfate 4 MG/ML CARTRIDGE IVPUSH (03:35)
[2025-03-07 03:47] VITALS: RESP 12
[2025-03-07 07:36] VITALS: BP 164/102; PULSE 109; RESP 19; TEMP 36.4; O2SAT 98
--- NOTE | 2025-03-07 08:10 | P.PNIM_ITS ---
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 Physical Exam Vital Signs: Vital Signs: Last Vital Signs Temp 97.6 F 03/07/25 07:36 Pulse 109 H 03/07/25 07:36 Resp 19 03/07/25 07:36 BP 164/102 H 03/07/25 07:36 Pulse Ox 98 03/07/25 07:36 O2 Del Method Nasal Cannula 03/07/25 07:36 O2 Flow Rate 2 03/07/25 07:36 BMI result Body Mass Index 25.1 Alert, frail +BS abd tender Objective Data Active Medications Diazepam (Diazepam 10 Mg/2 Ml Cartridge) 5 mg IVPUSH Q4H PRN PRN Reason: anxiety/restlessness Last Admin: 03/07/25 04:49 Dose: 5 mg Documented By: ARMEN Diazepam (Diazepam 10 Mg/2 Ml Cartridge) 5 mg IVPUSH Q4H PRN PRN Reason: Anxiety Lorazepam (Lorazepam 1 Mg Tablet) 2 mg SUBLINGUAL Q4H PRN PRN Reason: anxiety/restlessness Last Admin: 03/07/25 03:15 Dose: 2 mg Documented By: ARMEN Morphine Sulfate (Morphine Sulfate 4 Mg/Ml Cartridge) 2 mg IVPUSH Q1H PRN PRN Reason: Discomfort/Shortness of breath Ondansetron HCl (Ondansetron Hcl 4 Mg/2 Ml Vial) 4 mg IVPUSH Q8H PRN PRN Reason: Nausea and Vomiting Assessment and Plan (1) Hospice care: Status: Acute Plan 79-year-old male with a past medical history significant for metastatic prostate cancer on hospice, seizure disorder and hypertension, who presented to the ED for the hospice with increased agitation and altered mental status. 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 Quality Stroke Does the patient have a stroke diagnosis?: No VTE Prior VTE?: No VTE Risk Level:: Medical - moderate - high VTE Device Contraindication: Treatment Not Indicated VTE Drug Contraindication: Treatment Not Indicated
[2025-03-07] MEDS: Morphine Sulfate 4 MG/ML CARTRIDGE 2 MG IVPUSH ×2 (08:19→11:56)
[2025-03-07] MEDS: Scopolamine 1.5 MG PATCH.TD.3 EAR-BEHIND (13:33)
[2025-03-07] MEDS: Morphine Sulfate 4 MG/ML CARTRIDGE 3 MG IVPUSH ×4 (13:33→17:48)
[2025-03-07 15:19] VITALS: BP 122/55; PULSE 97; RESP 17; TEMP 36.7; O2SAT 92
[2025-03-07 19:51] VITALS: RESP 14
[2025-03-07] MEDS: Morphine Sulfate/NS 100 MG/100 ML PLAST..BAG IVCONT (20:30)
[2025-03-07] MEDS: Loperamide HCl 2 MG CAPSULE 4 MG PO (21:01)
[2025-03-07] MEDS: Haloperidol Lactate 5 MG/ML VIAL 2.5 MG IM (23:11)
--- NOTE | 2025-03-08 00:37 | MHC.PIE ---
p; pt anxious, agitated, agresive hitting this administrative underwriter in chest and trying to kick this administrative underwriter in face. note; damper worker pump has been increased multiple times now running at 5ml/hr. note; prn valium, ativan and haldol given i; dr briscoe notified. new order valium iv now e; will cont to monitor
[2025-03-08] MEDS: diazePAM 10 MG/2 ML CARTRIDGE 5 MG IVPUSH ×2 (07:35→11:15)
[2025-03-08] MEDS: LORazepam 1 MG TABLET 2 MG SUBLINGUAL (08:25)
--- NOTE | 2025-03-08 08:31 | PC.NURSE ---
Addendum entered by Cristina Mccormick RN 03/08/25 11:17: 11:15 pt moaning restless/agitated, TEACHER OF THE DEAF/HARD OF HEARING morphine gtt increased to 9mg/hr with floor LEANN Oswald. Addendum entered by Cristina Mccormick RN 03/08/25 09:18: 0915 pt continues to be restless/moaning, TEACHER OF THE DEAF/HARD OF HEARING Morphine gtt rate increased to 8mg/hr per MAR with tourist home keeper Mike. Addendum entered by Cristina Mccormick RN 03/08/25 08:51: 0840 pt continues to be restless/moaning, pt has legs out of the side of the bed trying to get up, TEACHER OF THE DEAF/HARD OF HEARING Morphine gtt rate changed to 7mg/hr, per MAR with special agent in charge Mike. Original Note: 0800 pt restless/moaning, PAC morphine gtt increased with tourist home keeper Mike to 6mg/hr.
[2025-03-08] MEDS: Atropine Sulfate 1 % Ophth Sol 2 ML BOTTLE 2 DROP SUBLINGUAL ×3 (12:19→18:36)
--- NOTE | 2025-03-08 12:21 | HO.PM.IMPN ---
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, breathing easy Physical Exam Vital Signs: Vital Signs: Last Vital Signs Temp 98.1 F 03/07/25 15:19 Pulse 97 03/07/25 15:19 Resp 14 03/07/25 19:51 BP 122/55 L 03/07/25 15:19 Pulse Ox 92 03/07/25 15:19 O2 Del Method Room Air 03/07/25 15:19 O2 Flow Rate 2 03/07/25 07:36 BMI result Body Mass Index 25.1 Resp: Effort & Inspection: no respiratory distress and no use of accessory muscles Objective Data Active Medications Atropine Sulfate (Atropine Sulfate 1 % Ophth Tessie 2 Ml Bottle) 2 drop SUBLINGUAL Q2H PRN PRN Reason: Secretions Last Admin: 03/08/25 12:19 Dose: 2 drop Documented By: RANDY Diazepam (Diazepam 10 Mg/2 Ml Cartridge) 5 mg IVPUSH Q4H PRN PRN Reason: anxiety/restlessness Last Admin: 03/08/25 11:15 Dose: 5 mg Documented By: RANDY Diazepam (Diazepam 10 Mg/2 Ml Cartridge) 5 mg IVPUSH Q4H PRN PRN Reason: Anxiety Haloperidol Lactate (Haloperidol Lactate 5 Mg/Ml Vial) 2.5 mg IM Q4H PRN PRN Reason: agitation Last Admin: 03/07/25 23:11 Dose: 2.5 mg Documented By: LEONOR Morphine Sulfate (Morphine Sulfate/Ns) 100 mg in 100 mls @ 0 mls/hr IVCONT .Q0M [facility]; Protocol Last Infusion: 03/08/25 11:14 Dose: 9 mg/hr, 9 mls/hr Documented By: RANDY Lorazepam (Lorazepam 1 Mg Tablet) 2 mg SUBLINGUAL Q4H PRN PRN Reason: anxiety/restlessness Last Admin: 03/08/25 08:25 Dose: 2 mg Documented By: RANDY Morphine Sulfate (Morphine Sulfate 4 Mg/Ml Cartridge) 4 mg IVPUSH Q1H PRN PRN Reason: Discomfort/Shortness of breath Ondansetron HCl (Ondansetron Hcl 4 Mg/2 Ml Vial) 4 mg IVPUSH Q8H PRN PRN Reason: Nausea and Vomiting Scopolamine (Scopolamine 1.5 Mg Patch.Td.3) 1.5 mg EAR-BEHIND Q72H [facility] Last Admin: 03/07/25 13:33 Dose: 1.5 mg Documented By: FADI Assessment and Plan (1) Prostate cancer metastatic to intrapelvic lymph node: Status: Acute Plan This is an 79-year-old male with a past medical history significant for metastatic prostate cancer on hospice, seizure disorder and hypertension, who was sent to the ED for [facility] hospice due to increased agitation and altered mental status. 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 Quality Stroke Does the patient have a stroke diagnosis?: No VTE Prior VTE?: No VTE Risk Level:: Medical - moderate - high VTE Device Contraindication: Treatment Not Indicated VTE Drug Contraindication: Treatment Not Indicated
[2025-03-08] MEDS: Morphine Sulfate/NS 100 MG/100 ML PLAST..BAG 9 MG IVCONT ×2 (13:40→23:35)
--- NOTE | 2025-03-08 13:47 | PC.NURSE ---
New Morphine gtt hung with RN Educator Nadya, no rate change, continues at 9mg/ml hour. Lock box in place, hill pad locked on pump.
--- NOTE | 2025-03-08 14:32 | MHC.CM.PN ---
per rounds pt is quarter folder and on a morphine drip
--- NOTE | 2025-03-08 17:32 | PC.NURSE ---
Pt appears comfortable, rise and fall of chest noted. Family is refusing turn and reposition at this time. AUTHORIZATION REP continued.
--- NOTE | 2025-03-09 01:43 | P.EN_ITS ---
Event Note Date of Service: 03/09/25 Event Note: Note I was called to patient's bedside to pronounce Mr. Leo Bird has .? No spontaneous movement were present.? There was not respond to verbal or tactile stimuli.? Pupils were mid-dilated and fixed.? No breath sounds were appreciated over either lung field.? No carotid pulses were palpable.? No heart sounds were auscultated over entire pericardium.? Patient was pronounced at 03/09/2025 - 1:30 AM. Daughter were at bedside.? The family declined autopsy.? 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 Time of was 1:30 AM. I have tried to contact patient's daughter and granddaughter but no answer (1:35 AM and 1:37 AM). I left a voicemail. Time Spent With Patient Time: Total time managing care of this patient today ____ minutes.
--- NOTE | 2025-03-09 01:47 | PM.DS ---
DS: Providers Provider Date of Service: 03/09/25 Date of admission: 03/06/25 06:57 Date of discharge: 03/09/25 Primary care physician: Unknown Physician Admitting clinician: Josue Bull Attending physician on discharge: Teo Viera DS: Diagnosis Discharge Diagnosis (1) Prostate cancer metastatic to intrapelvic lymph node: Status: Acute DS: Summary Hospital Course Hospital Course: HPI: Patient is an 79-year-old male with a past medical history significant for metastatic prostate cancer on hospice, seizure disorder and hypertension, who presented to the ED for [facility] hospice with increased agitation and altered mental status. Hospital course: Patient was admitted to med surgical floor (room 347) under [facility] hospice. Through the hospitalization the patient was managed with aggressive symptom control with morphine and adjuvant medications such as oxygen anticipate diuretics. Nutrition was provided as tolerated for comfort. The goals of care remain focus on comfort, dignity and quality of life. He was pronounced on 03/09/2025 at 01:30. Time Attestation Discharge Coordination Time (in mins): 5 mins Quality: Safe Use of Opioids Does Pt have an Active Cancer Diagnosis on the Problem List?: Yes Opioid Measure Date for [facility] Report: 02/07/25 Opioid Measure Time for [facility] Report: 02:18 Quality: Stroke Does the patient have a stroke diagnosis?: No Physical Exam Vital Signs: Vital Signs: Last Vital Signs Temp 98.1 F 03/07/25 15:19 Pulse 97 03/07/25 15:19 Resp 14 03/07/25 19:51 BP 122/55 L 03/07/25 15:19 Pulse Ox 92 03/07/25 15:19 O2 Del Method Room Air 03/07/25 15:19 O2 Flow Rate 2 03/07/25 07:36 BMI result Body Mass Index 25.1 No spontaneous movement were present.? There was not respond to verbal or tactile stimuli.? Pupils were mid dilated and fixed.? No breath sounds were appreciated over either lung field.? No carotid pulses were palpable.? No heart sounds were auscultated over entire pericardium.? DS: Data Data Completed and Pending Completed studies during hospitalization [Text1]: Procedures Destruction of Prostate, Via Natural or Artificial Opening Endoscopic (11/21/24) Drainage of Bladder with Drainage Device, Percutaneous Endoscopic Approach (11/21/24) Discharge Plan Discharge Patient Disposition: Discharge Diagnosis: Metastatic prostate cancer Referrals: Physician,Unknown J [Primary Care Provider, Medical] - 1 Week Discharge Medications: No Action oxycodone 5 mg Tablet 5 mg PO Q8H PRN (Reason: Severe Pain (Scale Score 7-10)) Qty: 30 0RF Rx Instructions: Partial Fill upon patient request. Ensure Plus 0.05 gram- 1.5 kcal/mL Liquid 1 ea PO BID Qty: 60 4RF morphine concentrate 100 mg/5 mL (20 mg/mL) solution 5 mg PO Q1H PRN (Reason: Pain) lorazepam 0.5 mg tablet 0.5 mg PO Q4H PRN (Reason: Agitation) atropine 1 % drops 2 drp sublingual Q4H PRN (Reason: Gurgling throat) haloperidol lactate 2 mg/mL concentrate 1 mg PO Q1H PRN (Reason: Agitation) ondansetron 4 mg tablet,disintegrating 4 mg PO Q6H PRN (Reason: nausea and vomiting) polyethylene glycol 3350 [Miralax] 17 gram/dose Powder 17 g PO BID PRN (Reason: Constipation) morphine 30 mg tablet extended release 30 mg PO Q12H PRN (Reason: Pain) Rx Instructions: Partial Fill upon patient request. Print Language: Albanian
[2025-03-13] MEDS: diazePAM 10 MG/2 ML CARTRIDGE 5 MG IVPUSH (21:21)
== END 2025-03-09 01:30 | disposition expired | DRG 951 ==
LOC: HO.ED 07:10 → HO.EDOVER 07:31 → HO.S3 14:23
PROVIDERS: Admitting Provider Student in an Organized Health Care Education/Training Program; Emergency Provider Emergency Medicine; Visit Provider Physician Assistant Medical
DX: Z51.5 Encounter for palliative care (principal); C77.5 Secondary and unspecified malignant neoplasm of intrapelvic lymph nodes; C61 Malignant neoplasm of prostate; I10 Essential (primary) hypertension; Z93.50 Unspecified cystostomy status; G40.909 Epilepsy, unspecified, not intractable, without status epilepticus; Z79.899 Other long term (current) drug therapy
CPT/HCPCS: 99285; J1630; J2270; J3360

== ENCOUNTER → 2025-03-06 06:57 | Outpatient (BNV) | payer OTHER, SELFPAY | PROVIDERS: Admitting Provider Student in an Organized Health Care Education/Training Program; Emergency Provider Emergency Medicine; Visit Provider Nurse Practitioner Acute Care | DX: C61 Malignant neoplasm of prostate (principal); C77.5 Secondary and unspecified malignant neoplasm of intrapelvic lymph nodes | CPT/HCPCS: 99222; 99231; 99232; 99238; 99499 ==